=== PATIENT | male | born 1945 | race Caucasian/White ===

== ENCOUNTER → 2016-09-26 | Outpatient (CLI) | payer OTHER ==
[~2016-09-26] MED LIST: ASPI81TA21 PO; ATOR-26 PO; CLOP1TAB15 PO; CLX20 PO; DLN100 PO; FAMO20TA11 PO; GLYB2.5T7 PO; ISOS60TA2 PO; METO-551 PO; MULT1CHW38 PO; NTRGSL/4 UT; NUTR-7 PO; PEDI-68 PO
[2016-09-26 17:09] LABS: HEMATOCRIT 46.5 % (42-52); MEAN CELL VOLUME 96.7 fL (80-100); MEAN CORPUSCULAR HEMOGLOBIN 32.4 pg (25-34); MEAN CORPUSCULAR HGB CONC 33.5 g/dl (32-36); MEAN PLATELET VOLUME 10.6 fL (7.4-10.4); PLATELET COUNT 270 K/uL (130-400); RED BLOOD COUNT 4.81 M/uL (4.7-6.1); WHITE BLOOD COUNT 8.55 K/uL (4.8-10.8)
[2016-09-26 17:41] LABS: ALT/SGPT 37 U/L (12-78); AST/SGOT 31 U/L (15-37); BLOOD UREA NITROGEN 22 mg/dl (7-18); BUN/CREATININE RATIO 19.8 (10-20); CALCIUM 8.8 mg/dl (8.5-10.1); CARBON DIOXIDE 27 mmol/L (21-32); CHLORIDE 107 mmol/L (98-107); GLUCOSE 113 mg/dl (70-99); POTASSIUM 4.1 mmol/L (3.5-5.1); SODIUM 142 mmol/L (136-145)
[2016-09-26 17:52] LABS: ALB/GLOB RATIO 0.8 (0.9-2); ALKALINE PHOSPHATASE 125 U/L (45-117); CHOLESTEROL 113 mg/dl (0-200); CHOLESTEROL/HDL RATIO 3.4; HDL CHOLESTEROL 33 mg/dl; LDL CHOLESTEROL CALCULATED 40 mg/dl; THYROID STIMULATING HORMONE 0.891 uIu/ml (0.300-4.500); TRIGLYCERIDES 202 mg/dl (0-150); VERY LOW DENSITY LIPOPROT CALC 40 mg/dl
[2016-09-27 06:03] LABS: ESTIMATED AVERAGE GLUCOSE 114 mg/dl; HA1C FLAG Normal (Normal)
== END | disposition home or self-care (01) ==
LOC: C.LABBFT 15:56
PROVIDERS: ATTEND Internal Medicine
DX: E11.59 Type 2 diabetes mellitus with other circulatory complications (principal)

== ENCOUNTER → 2016-11-12 | Outpatient (CLI) | payer OTHER | END | disposition home or self-care (01) | LOC: C.LABBFT 16:42 | PROVIDERS: ATTEND Internal Medicine | DX: G40.909 Epilepsy, unspecified, not intractable, without status epilepticus (principal) ==

== ENCOUNTER 2016-12-01 12:21 | Emergency (ER) | payer OTHER ==
[~2016-12-01] VITALS: Ht 164.5 cm; Wt 64.0 kg
[~2016-12-01 12:21] MED LIST changes: -CLOP1TAB15 PO; -MULT1CHW38 PO; -NUTR-7 PO; -PEDI-68 PO
[2016-12-01 12:23] VITALS: TEMP 37; Ht 164.5 cm; Wt 64.0 kg
[2016-12-01 14:27] LABS: BASO % 0.2 %; BASO ABS # 0.02 K/uL (0-0.2); COMPLETE YES; EOS % 2.2 %; HEMATOCRIT 41.4 % (42-52); IG% 0.4 %; LYMPH % 28.9 %; LYMPH ABS # 2.35 K/uL (1.2-3.4); MEAN CELL VOLUME 95.8 fL (80-100); MEAN CORPUSCULAR HEMOGLOBIN 31.9 pg (25-34); MEAN CORPUSCULAR HGB CONC 33.3 g/dl (32-36); MEAN PLATELET VOLUME 9.8 fL (7.4-10.4); MONO % 11.1 %; NEUT % 57.2 %; PLATELET COUNT 199 K/uL (130-400); RED BLOOD COUNT 4.32 M/uL (4.7-6.1); WHITE BLOOD COUNT 8.14 K/uL (4.8-10.8)
[2016-12-01 14:45] LABS: CALCIUM 8.3 mg/dl (8.5-10.1); POTASSIUM 4.2 mmol/L (3.5-5.1)
[2016-12-01] MEDS ORDERED: NUTR-7 PO (14:51)
[2016-12-01] MEDS ORDERED: PEDI-68 PO (14:51)
[2016-12-01] MEDS ORDERED: MULT1CHW38 PO (14:53)
[2016-12-01] MEDS ORDERED: SODIUM CHLORIDE 0.9% 1000ML 1,000 ML IV STA (15:02)
[2016-12-01 16:30] VITALS: BP 152/95; PULSE 55; O2SAT 99
[2016-12-01 16:38] LABS: URINE APPEARANCE CLEAR (CLEAR); URINE BILIRUBIN NEG (NEG); URINE COLOR YELLOW; URINE NITRITE NEG (NEG); URINE SPECIFIC GRAVITY 1.015 (1.000-1.030); UROBILINOGEN NEG (NEG); ZZUR CULT IF INDIC CLEAN CATCH NO
[2016-12-01 16:41] LABS: MANUAL MICROSCOPIC REQUIRED? NO; REVIEW REQ? NO
--- NOTE | 2016-12-01 19:02 | EMERGENCY ROOM VISIT NOTE ---
History Report prepared by Kylah: Thomas Hdz Under the Supervision of: Dr. Jonh Lamb D.O. First contact with patient: 12:39 Chief Complaint: HEMATURIA Stated Complaint: PENIS PAIN/BLEEDING Nursing Triage Summary: Pt arrives to room via w/c. reports she discovered this am pt was voiding dark red blood. Pt reports has been going on a couple of days. Reports no hx of kidney/ prostate issues. Pt is DM. History of Present Illness The patient is a 71 year old male who presents to the Emergency Room with complaints of persistent hematuria beginning about 2 days ago. He denies having any burning during urination, and notes that after urinating, he does not feel the urge to continue urinating. He has not reported having any blood at the tip of his penis. The patient has had occasional diarrhea, but denies any chest pain , shortness of breath, nausea, or vomiting. He also denies any recent trauma. He has not been seen by a urologist. The patient is on Plavix and has a history of stroke. Source of History: patient Onset: about 2 days ago Position: other (urethra) Quality: other (hematuria) Timing: other (persistent) Associated Symptoms: + diarrhea, No SOB, No chest pain, No nausea, No urinary symptoms (Patient has not had burning during urination), No vomiting Review of Systems See HPI for pertinent positives & negatives. A total of 10 systems reviewed and were otherwise negative. Past Medical & Surgical Medical Problems: (1) Diabetes mellitus (2) History of stroke (3) Hypertension Family History Diabetes mellitus FH: heart disease Hypertension Social History Smoking Status: Former Smoker Alcohol Use: none Marital Status: Housing Status: lives with significant other Occupation Status: unemployed Current/Historical Medications Scheduled Atorvastatin (Lipitor), 80 MG PO DAILY Citalopram (Celexa *), 10 MG PO DAILY Famotidine (Pepcid), 20 MG PO BID Glyburide (Diabeta), 2.5 MG PO DAILY Isosorbide Mononitrate (Imdur Ext Rel), 60 MG PO QAM Metoprolol Tartrate (Lopressor), 50 MG PO BID Multiple Vitamins W/ Minerals (Multivitamin Gummies Mens), 2 UNITS PO DAILY Nitroglycerin (Nitrostat), 0.4 MG UT PRN/UD Nutritional Supplements (Boost), 1 CAN PO DAILY Phenytoin Sodium (Dilantin *), 100 MG PO BID Allergies Coded Allergies: Adhesives (Verified Allergy, Unknown, BLISTERING OF SKIN, 12/01/16) No Known Allergies (Verified , 12/01/16) Physical Exam Vital Signs Date Time Temp Pulse Resp B/P Pulse Ox O2 Delivery O2 Flow Rate FiO2 12/01/16 16:30 55 16 152/95 99 Room Air 12/01/16 15:34 53 14 150/77 99 Room Air 12/01/16 12:23 37.0 60 20 160/92 96 Room Air Physical Exam GENERAL: Sitting in bed, alert, chronically ill appearing, well nourished, no distress, non-toxic EYE EXAM: normal conjunctiva OROPHARYNX: no exudate, no erythema, lips, buccal mucosa, and tongue normal and mucous membranes are moist NECK: supple, no nuchal rigidity, no adenopathy, non-tender LUNGS: Clear to auscultation. Normal chest wall mechanics HEART: no murmurs, S1 normal and S2 normal ABDOMEN: abdomen soft, non-tender, normo-active bowel sounds, no masses, no rebound or guarding. BACK: Back is symmetrical on inspection and there is no deformity, no midline tenderness, no CVA tenderness. SKIN: no rashes and no bruising UPPER EXTREMITIES: upper extremities are grossly normal. LOWER EXTREMITIES: No pitting edema. NEURO EXAM: Normal sensorium, cranial nerves II-XII grossly intact, normal speech, no gross weakness of arms, no gross weakness of legs. Gross sensation intact. : Normal external genitalia; testicles nontender; no penile discharge. Medical Decision & Procedures Laboratory Results 12/01/16 14:14 Red Blood Count 4.32, Mean Corpuscular Volume 95.8, Mean Corpuscular Hemoglobin 31.9, Mean Corpuscular Hemoglobin Concent 33.3, Mean Platelet Volume 9.8, Neutrophils (%) (Auto) 57.2, Lymphocytes (%) (Auto) 28.9, Monocytes (%) (Auto) 11.1, Eosinophils (%) (Auto) 2.2, Basophils (%) (Auto) 0.2, Neutrophils # (Auto ) 4.66, Lymphocytes # (Auto) 2.35, Monocytes # (Auto) 0.90, Eosinophils # (Auto ) 0.18, Basophils # (Auto) 0.02 12/01/16 14:14 Test 12/01/16 14:14 12/01/16 16:30 White Blood Count 8.14 K/uL (4.8-10.8) Red Blood Count 4.32 M/uL (4.7-6.1) Hemoglobin 13.8 g/dL (14.0-18.0) Hematocrit 41.4 % (42-52) Mean Corpuscular Volume 95.8 fL (80-100) Mean Corpuscular Hemoglobin 31.9 pg (25-34) Mean Corpuscular Hemoglobin Concent 33.3 g/dl (32-36) Platelet Count 199 K/uL (130-400) Mean Platelet Volume 9.8 fL (7.4-10.4) Neutrophils (%) (Auto) 57.2 % Lymphocytes (%) (Auto) 28.9 % Monocytes (%) (Auto) 11.1 % Eosinophils (%) (Auto) 2.2 % Basophils (%) (Auto) 0.2 % Neutrophils # (Auto) 4.66 K/uL (1.4-6.5) Lymphocytes # (Auto) 2.35 K/uL (1.2-3.4) Monocytes # (Auto) 0.90 K/uL (0.11-0.59) Eosinophils # (Auto) 0.18 K/uL (0-0.5) Basophils # (Auto) 0.02 K/uL (0-0.2) RDW Standard Deviation 50.1 fL (36.4-46.3) RDW Coefficient of Variation 14.2 % (11.5-14.5) Immature Granulocyte % (Auto) 0.4 % Immature Granulocyte # (Auto) 0.03 K/uL (0.00-0.02) Anion Gap 3.0 mmol/L (3-11) Est Creatinine Clear Calc Drug Dose 58.4 ml/min Estimated GFR () 87.4 Estimated GFR (Non- 75.4 BUN/Creatinine Ratio 29.0 (10-20) Calcium Level 8.3 mg/dl (8.5-10.1) Urine Color YELLOW Urine Appearance CLEAR (CLEAR) Urine pH 8.0 (4.5-7.5) Urine Specific [place] 1.015 (1.000-1.030) Urine Protein NEG (NEG) Urine Glucose (UA) NEG (NEG) Urine Ketones NEG (NEG) Urine Occult Blood 1+ (NEG) Urine Nitrite NEG (NEG) Urine Bilirubin NEG (NEG) Urine Urobilinogen NEG (NEG) Urine Leukocyte Esterase TRACE (NEG) Urine WBC (Auto) 1-5 /hpf (0-5) Urine RBC (Auto) 0-4 /hpf (0-4) Urine Hyaline Casts (Auto) 0 /lpf (0-5) Urine Epithelial Cells (Auto) 10-20 /lpf (0-5) Urine Bacteria (Auto) NEG (NEG) Laboratory results per my review. Medications Administered Medications (Trade) Dose Ordered Sig/Monica Route Start Time Stop Time Status Last Admin Dose Admin Sodium Chloride (Nss 1000ml) 1,000 ml @ 999 mls/hr Q1H1M STAT IV 12/01/16 15:02 12/01/16 16:02 DC 12/01/16 15:28 999 MLS/HR ED Course ED COURSE: Vital signs were reviewed and showed hypertensive. The patients medical record was reviewed The above diagnostic studies were performed and reviewed. ED treatments and interventions as stated above. 1246: The patient was evaluated in room B8. A complete history and physical examination was performed. 1500: I reassessed the patient, and he is unable to urinate. 1502: Ordered NSS 1,000 ml @ 999 mls/hr IV. 1605: I reassessed the patient, and he is still unable to urinate. 1705: Upon reevaluation, the patient is doing well.I discussed my findings with the patient and he understands and agrees with the treatment plan. Based on the patients age, coexisting illnesses, exam and lab findings the decision to treat as an outpatient was made. The patient remained stable while under my care. The patient appeared well at the time of discharge. Medical Decision Differentials include trauma, UTI, anticoagulation, and cancer. Patient is a 71-year-old male who presents the ER for hematuria which started in the past 24-48 hours. notes that his currently at his baseline. He denies any other complaints. He notes it is completely able to empty his bladder. He has no dysuria, urgency or frequency. Labs show no significant leukocytosis or anemia. BMP was unremarkable. UA shows trace leukocytes with mild RBCs. Postvoid is 31 ML's. He is not retaining. With his hematuria it could be secondary to Plavix which patient notes that he is on versus possible cancer. This does not look with UTI at this time but patient was updated regards to his findings was discharged with painless hematuria to follow-up with urology as an outpatient. Discussed with Pt concerning signs and symptoms to watch out for. Pt was instructed to follow up with their PCP and discussed with the patient their option to return to the ED at anytime for persistent or worsening symptoms. The appropriate anticipatory guidance and out-patient management, including indications for return to the emergency department, were explained at length to the patient and understood. Impression Primary Impression: Hematuria Scribe Attestation The scribe's documentation has been prepared under my direction and personally reviewed by me in its entirety. I confirm that the note above accurately reflects all work, treatment, procedures, and medical decision making performed by me. Departure Information Dispostion Home / Self-Care Referrals Erick Zapata M.D. (PCP) Patient Instructions Hematuria, My [facility] Additional Instructions Please follow up with your primary care doctor with in the next 24 hours. Any worsening of your symptoms, please return to the ED immediately. This includes unable to eat, abdominal pain, passing out, lightheadedness, weakness, or any other concerning signs or symptoms from your standpoint. Please follow up with urology as listed below. You must give their office a call on Saturday morning to schedule appointment.
[2017-01-09] MEDS ORDERED: CLOP1TAB15 PO (13:30)
== END 2016-12-01 17:04 | disposition home or self-care (01) ==
LOC: C.EDB 12:22
DX: R31.9 Hematuria, unspecified (principal); E11.9 Type 2 diabetes mellitus without complications; I10 Essential (primary) hypertension; Z86.73 Personal history of transient ischemic attack (TIA), and cerebral infarction without residual deficits; Z87.891 Personal history of nicotine dependence; Z79.899 Other long term (current) drug therapy; Z91.09 Other allergy status, other than to drugs and biological substances; Z83.3 Family history of diabetes mellitus; Z82.49 Family history of ischemic heart disease and other diseases of the circulatory system; R19.7 Diarrhea, unspecified

== ENCOUNTER → 2016-12-12 | Outpatient (CLI) | payer OTHER ==
[~2016-12-12] MED LIST changes: -ASPI81TA21 PO; +CLOP1TAB15 PO; +MULT1CHW38 PO; +NUTR-7 PO
--- NOTE | 2016-12-12 08:22 | DIAGNOSTIC IMAGING REPORT ---
CT OF THE ABDOMEN AND PELVIS WITHOUT CONTRAST CLINICAL HISTORY: Hematuria. COMPARISON STUDY: CT of the abdomen and pelvis December 26, 2012 and abdominal series July 28, 2016. TECHNIQUE: Axial images of the abdomen and pelvis were obtained without IV contrast. Images were reviewed in the axial, sagittal, and coronal planes. FINDINGS: Unenhanced images of the liver, spleen, adrenal glands and pancreas are unremarkable. Evaluation of the abdomen and pelvis is suboptimal on this unenhanced exam. There is no hydronephrosis. A 2.6 cm water attenuation lesion within the upper pole of the left kidney was shown to represent a cyst on prior contrast enhanced exam of December 26, 2012. Vascular calcifications within each renal pelvis are noted. These make evaluation for renal calculi difficult but no definite renal calculi are present. There is no hydronephrosis or hydroureter. The sensitivity for detection of urothelial lesions is diminished on this unenhanced exam. There is no evidence for a bowel obstruction. There is no lymphadenopathy. There are stable postsurgical findings consistent with aortobifemoral bypass. 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 This is likely at graft insertion. There is colonic diverticulosis without evidence for acute diverticulitis. There is no lymphadenopathy. There is a diverticulum of the second portion the duodenum. Skeletal structures are unremarkable. Mild diffuse bladder wall thickening is noted. IMPRESSION: 1. No findings to explain hematuria although sensitivity for detection of urothelial lesions is diminished on this unenhanced exam. 2. Extensive vascular calcifications within each renal pelvis. These make evaluation for renal calculi difficult but no definite urinary calculi identified. No hydronephrosis. 3. Stable postsurgical findings consistent with aortobifemoral bypass with stable dilatation of the bilateral common femoral artery since exam of December 26, 2012. Electronically signed by: Madan Mancilla M.D. 12/12/2016 8:21 AM Dictated Date/Time: 12/12/2016 8:09 AM
== END | disposition home or self-care (01) ==
LOC: C.CTS 07:53
PROVIDERS: ATTEND Internal Medicine
DX: R31.9 Hematuria, unspecified (principal)

== ENCOUNTER → 2016-12-27 | Outpatient (CLI) | payer OTHER ==
[~2016-12-27] MED LIST changes: +OPTIRAY 320 IV PRN
--- NOTE | 2016-12-27 10:56 | DIAGNOSTIC IMAGING REPORT ---
ABDOMEN AND PELVIS CT WITH AND WITHOUT IV CONTRAST, UROGRAM PROTOCOL CT DOSE: 308.18 mGy.cm HISTORY: R31.9 [id number] Kidney lesion evaluate upper left pole kidney TECHNIQUE: Multiaxial CT images of the abdomen and pelvis were performed after the use of intravenous contrast to evaluate the urinary system. Maximal intensity projection images were performed at the workstation by the radiologist. Noncontrast imaging is were not performed for this study due to the recent noncontrast abdomen and pelvis CT on 12/12/2016 COMPARISON STUDY: Abdomen and pelvis CT 12/12/2016. FINDINGS: No renal or ureteral calculi identified on this contrast study. No hydronephrosis. No suspicious filling defects seen within the opacified bilateral renal collecting systems, ureters, or bladder. Moderate to severe bilateral renal cortical thinning/scarring. A 2.7 cm cyst within the upper pole of the left kidney. Vascular calcifications within the renal sinuses are again noted. The distal most portion of the left ureter is not opacified but appears to be normal in caliber. Mild bladder wall thickening which is likely chronic. Poststernotomy changes. There are 2 adjacent diverticula at the second portion of the duodenum. The largest measures 2 cm. Moderate thickening at the junction of the second and third portion of the duodenum. No bowel obstruction. Normal appendix. Colonic diverticulosis. The liver, gallbladder, spleen, adrenal glands, and pancreas are unremarkable. No retroperitoneal lymphadenopathy. 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 Moderate atherosclerotic plaque within the descending thoracic aorta and proximal abdominal aorta is again noted. IMPRESSION: 1. No definite renal or ureteral stones. No hydronephrosis. 2. No suspicious filling defects seen within the opacified bilateral renal collecting systems, ureters, or bladder. 3. Moderate thickening at the junction of the second and third portion of the duodenum which could be due to underdistention. There are few diverticula at this location. Recommend endoscopy to exclude the possibility of a duodenitis versus less likely a duodenal mass. 4. Redemonstration of the aortobiiliac bypass graft with stable dilatation of the bilateral common femoral arteries. 5. Additional changes as described above. Electronically signed by: Byron Austin M.D. 12/27/2016 10:53 AM Dictated Date/Time: 12/27/2016 10:40 AM
== END | disposition home or self-care (01) ==
LOC: C.CTS 09:41
PROVIDERS: ATTEND Nurse Practitioner Family
DX: R31.9 Hematuria, unspecified (principal); N18.9 Chronic kidney disease, unspecified; R93.3 Abnormal findings on diagnostic imaging of other parts of digestive tract

== ENCOUNTER → 2017-02-14 | Outpatient (CLI) | payer OTHER ==
[~2017-02-14] MED LIST changes: -METO-551 PO; -MULT1CHW38 PO; -NUTR-7 PO; -OPTIRAY 320 IV PRN
== END | disposition home or self-care (01) ==
LOC: C.LABBFT 12:54
PROVIDERS: ATTEND Urology
DX: R31.9 Hematuria, unspecified (principal)

== ENCOUNTER → 2017-03-01 | Outpatient (CLI) | payer OTHER ==
[2017-03-01 18:11] LABS: RATIO 56.6 mcg/mg (0-30.0)
== END | disposition home or self-care (01) ==
LOC: C.LABBFT 17:18
PROVIDERS: ATTEND Internal Medicine
DX: R31.9 Hematuria, unspecified (principal); E11.59 Type 2 diabetes mellitus with other circulatory complications

== ENCOUNTER → 2017-06-21 | Outpatient (CLI) | payer OTHER ==
[2017-06-21 16:59] LABS: BASO % 0.2 %; BASO ABS # 0.02 K/uL (0-0.2); COMPLETE YES; EOS % 2.6 %; HEMATOCRIT 45.5 % (42-52); IG% 0.5 %; LYMPH % 28.4 %; LYMPH ABS # 2.61 K/uL (1.2-3.4); MEAN CELL VOLUME 95.8 fL (80-100); MEAN CORPUSCULAR HEMOGLOBIN 33.5 pg (25-34); MEAN CORPUSCULAR HGB CONC 34.9 g/dl (32-36); MEAN PLATELET VOLUME 10.2 fL (7.4-10.4); MONO % 12.4 %; NEUT % 55.9 %; PLATELET COUNT 208 K/uL (130-400); RED BLOOD COUNT 4.75 M/uL (4.7-6.1); WHITE BLOOD COUNT 9.18 K/uL (4.8-10.8)
[2017-06-21 17:11] LABS: ALB/GLOB RATIO 0.8 (0.9-2); ALT/SGPT 79 U/L (12-78); AST/SGOT 43 U/L (15-37); BLOOD UREA NITROGEN 36 mg/dl (7-18); BUN/CREATININE RATIO 32.4 (10-20); CALCIUM 8.7 mg/dl (8.5-10.1); CARBON DIOXIDE 25 mmol/L (21-32); CHLORIDE 110 mmol/L (98-107); GLUCOSE 109 mg/dl (70-99); POTASSIUM 4.4 mmol/L (3.5-5.1); SODIUM 141 mmol/L (136-145)
[2017-06-21 17:12] LABS: ALKALINE PHOSPHATASE 84 U/L (45-117); CHOLESTEROL 107 mg/dl (0-200); CHOLESTEROL/HDL RATIO 3.1; HDL CHOLESTEROL 34 mg/dl; LDL CHOLESTEROL CALCULATED 12 mg/dl; TRIGLYCERIDES 304 mg/dl (0-150); VERY LOW DENSITY LIPOPROT CALC 61 mg/dl
== END | disposition home or self-care (01) ==
LOC: C.LABBFT 15:27
PROVIDERS: ATTEND Physician Assistant Medical
DX: I10 Essential (primary) hypertension (principal); G40.909 Epilepsy, unspecified, not intractable, without status epilepticus

== ENCOUNTER → 2017-06-24 | Outpatient (CLI) | payer OTHER | END | disposition home or self-care (01) | LOC: C.LABSPEC 08:14 | PROVIDERS: ATTEND Internal Medicine | DX: R19.7 Diarrhea, unspecified (principal) ==

== ENCOUNTER → 2017-07-05 | Outpatient (CLI) | payer OTHER ==
[~2017-07-05] MED LIST changes: +OPTIRAY 320 IV PRN
--- NOTE | 2017-07-05 13:49 | DIAGNOSTIC IMAGING REPORT ---
ABD/PELVIS IV AND ORAL CONT HISTORY: 72 years-old Male R19.7 [id number] Elevated liver [id number] acute diarrhea. Initial exam. COMPARISON: CT abdomen and pelvis 12/27/2016, 12/12/2016. TECHNIQUE: Multiple axial CT images of the abdomen and pelvis were obtained following the administration of both IV and oral contrast. 119 mL IV contrast administered. A dose lowering technique was used consistent with the principals of ALARA. A dose lowering technique was used consistent with the principals of ALARA. medicine technologist reports that there was a problem with the scanner and the patient had to be removed to a second scanner. Therefore delayed images were obtained. FINDINGS: Lung bases are generally clear. No pneumoperitoneum or pneumatosis identified. Imaged inferior cardiac chambers are mildly enlarged. Coronary arterial disease. Prior median sternotomy. The liver, spleen, pancreas and right adrenal gland are unremarkable. There is indeterminate 10 x 8 mm nodule of the left adrenal gland medial limb on image 138 series 3 which is unchanged from comparison. This was noted to be soft tissue attenuating on noncontrast study 12/12/2016. Statistically, this is likely benign. Gallbladder is contracted. Cyst of the superior pole left kidney measures up to 2.9 cm. lobulations and/or areas of probable scarring and thinning are present within the bilateral kidneys, notably the inferior pole left kidney. No definite renal calculi or hydronephrosis. No focal filling defects identified within the collecting systems, ureters or bladder. Central coarse parenchymal calcifications of the prostate. Extensive mixed plaquing of the abdominal aorta. Mild ectasia of the infrarenal abdominal aorta with patent aortobiiliac stent graft. Dilation of the bilateral common femoral arteries in seen, 1.9 cm on the left and 2.4 cm on the right. No bulky adenopathy. Majority of the oral contrast is still present within the gastric lumen. Debris within the stomach suggests recent meal. Multiple diverticula of the proximal duodenum redemonstrated. No focal bowel wall thickening or evidence of bowel obstruction. Scattered colonic diverticulosis without diverticulitis. Air-fluid levels throughout the colon suggest diarrheal state. No focal wall thickening or pericolonic inflammatory stranding to suggest colitis. The appendix appears normal. There are several small ventral midline supraumbilical abdominal wall hernias which are fat filled with diastases measuring up to 1.7 cm. Bones appear intact. IMPRESSION: 1. Air-fluid levels throughout the colon suggest diarrheal state. No evidence of bowel obstruction or focal colitis. No pneumoperitoneum. 2. Colonic diverticulosis without diverticulitis. 3. Normal appendix. 4. Patent aortobiiliac stent graft with unchanged dilation of the bilateral common femoral arteries. 5. Additional findings as above. The above report was generated using voice recognition software. It may contain grammatical, syntax or spelling errors. Electronically signed by: Romel May M.D. 07/05/2017 1:48 PM Dictated Date/Time: 07/05/2017 1:38 PM
== END | disposition home or self-care (01) ==
LOC: C.CTS 10:36
PROVIDERS: ATTEND Internal Medicine
DX: R19.7 Diarrhea, unspecified (principal); R74.8 Abnormal levels of other serum enzymes; K57.90 Diverticulosis of intestine, part unspecified, without perforation or abscess without bleeding

== ENCOUNTER → 2017-07-31 | Outpatient (CLI) | payer OTHER ==
[~2017-07-31] MED LIST changes: -OPTIRAY 320 IV PRN
[2017-07-31 17:36] LABS: BASO % 0.2 %; BASO ABS # 0.02 K/uL (0-0.2); COMPLETE YES; EOS % 1.7 %; HEMATOCRIT 44.5 % (42-52); IG% 0.8 %; LYMPH % 30.7 %; LYMPH ABS # 2.97 K/uL (1.2-3.4); MEAN CELL VOLUME 96.9 fL (80-100); MEAN CORPUSCULAR HEMOGLOBIN 32.9 pg (25-34); MEAN CORPUSCULAR HGB CONC 33.9 g/dl (32-36); MEAN PLATELET VOLUME 10.4 fL (7.4-10.4); MONO % 11.8 %; NEUT % 54.8 %; PLATELET COUNT 216 K/uL (130-400); RED BLOOD COUNT 4.59 M/uL (4.7-6.1); WHITE BLOOD COUNT 9.68 K/uL (4.8-10.8)
[2017-07-31 17:46] LABS: ALT/SGPT 37 U/L (12-78); BLOOD UREA NITROGEN 31 mg/dl (7-18); BUN/CREATININE RATIO 29.4 (10-20); CALCIUM 8.9 mg/dl (8.5-10.1); CARBON DIOXIDE 23 mmol/L (21-32); CHLORIDE 108 mmol/L (98-107); CREATININE 1.04 mg/dl (0.60-1.40); GLUCOSE 73 mg/dl (70-99); POTASSIUM 4.5 mmol/L (3.5-5.1); SODIUM 140 mmol/L (136-145)
[2017-07-31 17:51] LABS: ALB/GLOB RATIO 0.8 (0.9-2); ALKALINE PHOSPHATASE 95 U/L (45-117); AST/SGOT 23 U/L (15-37); PROSTATE SPECIFIC ANTIGEN 0.582 ng/ml (0.000-4.000)
[2017-07-31 18:13] LABS: URINE APPEARANCE CLEAR (CLEAR); URINE BILIRUBIN NEG (NEG); URINE COLOR YELLOW; URINE NITRITE NEG (NEG); URINE SPECIFIC GRAVITY 1.022 (1.000-1.030); UROBILINOGEN NEG (NEG)
[2017-07-31 18:19] LABS: MANUAL MICROSCOPIC REQUIRED? NO; REVIEW REQ? NO
== END | disposition home or self-care (01) ==
LOC: C.LABBFT 14:06
PROVIDERS: ATTEND Urology
DX: R32 Unspecified urinary incontinence (principal); Z12.5 Encounter for screening for malignant neoplasm of prostate; R31.9 Hematuria, unspecified; R11.2 Nausea with vomiting, unspecified

== ENCOUNTER → 2017-11-13 | Outpatient (CLI) | payer OTHER ==
[2017-11-13 12:06] LABS: HEMATOCRIT 48.6 % (42-52); HEMOGLOBIN 16.7 g/dL (14.0-18.0); MEAN CELL VOLUME 95.1 fL (80-100); MEAN CORPUSCULAR HEMOGLOBIN 32.7 pg (25-34); MEAN CORPUSCULAR HGB CONC 34.4 g/dl (32-36); MEAN PLATELET VOLUME 10.4 fL (7.4-10.4); PLATELET COUNT 227 K/uL (130-400); RED CELL DISTRIBUTION WIDTH CV 13.2 % (11.5-14.5); RED CELL DISTRIBUTION WIDTH SD 45.8 fL (36.4-46.3); WHITE BLOOD COUNT 8.64 K/uL (4.8-10.8)
[2017-11-13 12:40] LABS: ALBUMIN 3.5 gm/dl (3.4-5.0); ALT/SGPT 50 U/L (12-78); AST/SGOT 33 U/L (15-37); BLOOD UREA NITROGEN 25 mg/dl (7-18); CALCIUM 8.8 mg/dl (8.5-10.1); CARBON DIOXIDE 24 mmol/L (21-32); CREATININE 1.21 mg/dl (0.60-1.40); GLUCOSE 149 mg/dl (70-99); POTASSIUM 4.4 mmol/L (3.5-5.1); SODIUM 139 mmol/L (136-145)
[2017-11-13 12:42] LABS: ALKALINE PHOSPHATASE 98 U/L (45-117); TOTAL PROTEIN 7.8 gm/dl (6.4-8.2)
== END | disposition home or self-care (01) ==
LOC: C.LAB1850 10:11
PROVIDERS: ATTEND Internal Medicine
DX: E11.59 Type 2 diabetes mellitus with other circulatory complications (principal); G40.909 Epilepsy, unspecified, not intractable, without status epilepticus

== ENCOUNTER → 2018-01-08 | Outpatient (CLI) | payer OTHER ==
--- NOTE | 2018-01-08 08:14 | DIAGNOSTIC IMAGING REPORT ---
CT LUNG SCREENING, LOW DOSE WITH COMPUTER-AIDED DETECTION (CAD) CLINICAL HISTORY: AGGRESSIVE FORMER SMOKER COMPARISON STUDY: No previous studies for comparison. CT DOSE: 70.23 mGycm TECHNIQUE: Low-dose helical CT was acquired without intravenous contrast from lung apices to bases and reconstructed at 2.5 mm every 2 mm. CAD was utilized for this study. A dose lowering technique was utilized adhering to the principles of ALARA. FINDINGS: No pneumothorax. No pleural effusions. The central airways are patent. Punctate calcified granuloma within the left lower lobe. Mild emphysema. No focal lung consolidations to suggest pneumonia. No suspicious pulmonary nodules. Poststernotomy changes. Moderate to severe calcified plaque within the coronary arteries. The heart is normal in size. No distal or hilar lymphadenopathy. The visualized liver, spleen, right adrenal gland are unremarkable. Mild nodular thickening of the left adrenal gland. IMPRESSION: 1. No suspicious pulmonary nodules. 2. Emphysema. 3. Moderate to severe calcified plaque within the coronary arteries. CAD FINDINGS: Overall Lung RADS Category: 1 Lung RADS Management Recommendation: Continue annual lung cancer screening. Lung RADS Follow Up Date: 2019-01-08 Lung RADS Nodule ID: Electronically signed by: Byron Austin M.D. 01/08/2018 8:13 AM Dictated Date/Time: 01/08/2018 8:05 AM
== END | disposition home or self-care (01) ==
LOC: C.CTS 07:42
PROVIDERS: ATTEND Internal Medicine
DX: Z87.891 Personal history of nicotine dependence (principal)

== ENCOUNTER → 2018-04-03 | Outpatient (CLI) | payer OTHER ==
[~2018-04-03] MED LIST changes: +CITA10TA4 PO; +GLIP2.5T11 PO; +LOSA1TAB PO; +METO50TA16 PO; +PHN/100 PO
[2018-04-03 17:25] LABS: BASO % 0.1 %; BASO ABS # 0.01 K/uL (0-0.2); EOS % 2.3 %; EOS ABS # 0.17 K/uL (0-0.5); HEMATOCRIT 46.9 % (42-52); HEMOGLOBIN 15.7 g/dL (14.0-18.0); IG# 0.03 K/uL (0.00-0.02); LYMPH % 29.3 %; LYMPH ABS # 2.13 K/uL (1.2-3.4); MEAN CELL VOLUME 98.1 fL (80-100); MEAN CORPUSCULAR HEMOGLOBIN 32.8 pg (25-34); MEAN CORPUSCULAR HGB CONC 33.5 g/dl (32-36); MEAN PLATELET VOLUME 10.3 fL (7.4-10.4); MONO % 15.7 %; MONO ABS # 1.14 K/uL (0.11-0.59); NEUT % 52.2 %; PLATELET COUNT 206 K/uL (130-400); RED CELL DISTRIBUTION WIDTH SD 50.1 fL (36.4-46.3); WHITE BLOOD COUNT 7.28 K/uL (4.8-10.8)
[2018-04-03 17:47] LABS: ALBUMIN 3.2 gm/dl (3.4-5.0); ALKALINE PHOSPHATASE 102 U/L (45-117); ALT/SGPT 79 U/L (12-78); AST/SGOT 46 U/L (15-37); BLOOD UREA NITROGEN 31 mg/dl (7-18); CALCIUM 8.5 mg/dl (8.5-10.1); CARBON DIOXIDE 30 mmol/L (21-32); CHOLESTEROL 111 mg/dl (0-200); CREATININE 1.32 mg/dl (0.60-1.40); GLUCOSE 99 mg/dl (70-99); LDL CHOLESTEROL CALCULATED 32 mg/dl; POTASSIUM 4.9 mmol/L (3.5-5.1); SODIUM 141 mmol/L (136-145); TOTAL PROTEIN 7.5 gm/dl (6.4-8.2)
[2018-04-04 06:47] LABS: HEMOGLOBIN A1C 6.3 % (4.5-5.6)
== END | disposition home or self-care (01) ==
LOC: C.LABBFT 14:42
PROVIDERS: ATTEND Internal Medicine
DX: G40.909 Epilepsy, unspecified, not intractable, without status epilepticus (principal); E11.59 Type 2 diabetes mellitus with other circulatory complications

== ENCOUNTER → 2018-04-04 | Outpatient (CLI) | payer OTHER | END | disposition home or self-care (01) | LOC: C.LABSPEC 08:17 | PROVIDERS: ATTEND Internal Medicine | DX: R39.9 Unspecified symptoms and signs involving the genitourinary system (principal); E11.59 Type 2 diabetes mellitus with other circulatory complications ==

== ENCOUNTER 2018-04-13 23:12 | Emergency (ER) | payer OTHER ==
[~2018-04-13] VITALS: Ht 160 cm; Wt 68.0 kg
[~2018-04-13 23:12] MED LIST changes: -CITA10TA4 PO; -GLIP2.5T11 PO; -LOSA1TAB PO; -METO50TA16 PO; -PHN/100 PO
[2018-04-13 23:14] VITALS: Ht 160 cm; Wt 68.0 kg
--- NOTE | 2018-04-13 23:38 | EMERGENCY ROOM VISIT NOTE ---
History Report prepared by Kylah: Joanna Arroyo Under the Supervision of: Dr. Mojgan Morrow D.O. First contact with patient: 23:20 Chief Complaint: ABDOMINAL PAIN Stated Complaint: RIGHT SIDE PAIN Nursing Triage Summary: Right sided abd pain. denies n/v. History of Present Illness The patient is a 72 year old male who presents to the Emergency Room with complaints of lower right sided abdominal pain beginning today. He is accompanied by his who states that she suddenly noticed her was holding his right side today which is abnormal for him. She reports her did not tell her he had any pain but when she said he should go to the ED, he agreed with her. She notes she gave him one aspirin to alleviate his pain. His notes he does not have a past history of kidney stones but he does have a history of diabetes, lung problems, and heart problems. The patient states he is incontinent of urine but he is not urinating more frequently or having dysuria. He is a former smoker. 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 A total of 10 systems reviewed and were otherwise negative. Past Medical & Surgical Medical Problems: (1) Diabetes mellitus (2) History of stroke (3) Hypertension Family History Diabetes mellitus FH: heart disease Hypertension Social History Smoking Status: Former Smoker Alcohol Use: none Marital Status: Housing Status: lives with significant other Occupation Status: unemployed Current/Historical Medications Scheduled Atorvastatin (Lipitor), 80 MG PO HS Citalopram Hydrobromide (Citalopram Hydrobromide), 1 TAB PO DAILY Clopidogrel (Plavix), 75 MG PO QAM Famotidine (Pepcid), 20 MG PO BID Glipizide (Glipizide Er), 1 TAB PO DAILY Isosorbide Mononitrate (Imdur Ext Rel), 60 MG PO QAM Losartan Potassium (Cozaar), 25 MG PO DAILY Metoprolol Tartrate (Lopressor) (Lopressor), 50 MG PO BID Phenytoin Sodium (Dilantin), 100 MG PO BID Scheduled PRN Nitroglycerin (Nitrostat), 0.4 MG UT UD PRN for Chest Pain Allergies Coded Allergies: Adhesives (Verified Allergy, Unknown, BLISTERING OF SKIN, 04/14/18) Physical Exam Vital Signs Date Time Temp Pulse Resp B/P (MAP) Pulse Ox O2 Delivery O2 Flow Rate FiO2 04/14/18 01:44 36.9 65 18 157/93 96 04/14/18 00:49 68 18 171/90 96 Room Air 04/14/18 00:07 68 20 160/92 96 Room Air 04/13/18 23:14 36.9 73 20 169/87 95 Room Air Physical Exam HEENT: Head - normocephalic and atraumatic Pupils are equal, round, and reactive to light. Extraocular eye muscles are intact, and sclera are anicteric. Nose - moist nasal mucosa without discharge. Mouth - moist buccal mucosa. Oropharynx is nonerythematous and there is no tonsillar exudate or edema noted. Neck: Supple; no JVD, nuchal rigidity, cervical lymphadenopathy. Heart: Regular rate and rhythm. There is a normal S1 and S2 with no murmurs, clicks, or gallops appreciated. Lungs: Clear to auscultation bilaterally with no wheezes, rales, or rhonchi. Abdomen: Soft, pain to palpation of the RLQ of abdomen, nondistended, with good bowel sounds. There are no palpable pulsatile masses or hepatosplenomegaly. There is no guarding, rigidity, or rebound noted. Extremities: No evidence of cyanosis, clubbing, or edema. There are easily palpable peripheral pulses. Skin: warm and dry with good turgor and no rashes. Medical Decision & Procedures ER Provider Diagnostic Interpretation: Radiology results as stated below per my review and the radiologist's interpretation: CT ABDOMEN & PELVIS Without CONTRAST No acute findings to explain patient's symptoms. 3.2 cm cyst in the upper left kidney is probably benign. No hydronephrosis or nephrolithiasis. Prominent calcifications in the bilateral renal hilum most likely represents an atherosclerosis. The right kidney is small and atrophic. Mild diverticulosis of the sigmoid without acute diverticulitis. Normal appendix. No bowel wall thickening or obstruction. Severe atherosclerosis. Status post aortobifemoral bypass graft. Radiologist: Lazara Lyles MD Phone: Laboratory Results 04/13/18 23:40 Red Blood Count 4.93, Mean Corpuscular Volume 96.6, Mean Corpuscular Hemoglobin 32.7, Mean Corpuscular Hemoglobin Concent 33.8, Mean Platelet Volume 9.9, Neutrophils (%) (Auto) 63.3, Lymphocytes (%) (Auto) 20.1, Monocytes (%) (Auto) 15.4, Eosinophils (%) (Auto) 0.7, Basophils (%) (Auto) 0.1, Neutrophils # (Auto ) 8.75, Lymphocytes # (Auto) 2.79, Monocytes # (Auto) 2.13, Eosinophils # (Auto ) 0.10, Basophils # (Auto) 0.02 04/13/18 23:40 Test 04/13/18 23:40 04/13/18 23:45 White Blood Count 13.85 K/uL (4.8-10.8) Red Blood Count 4.93 M/uL (4.7-6.1) Hemoglobin 16.1 g/dL (14.0-18.0) Hematocrit 47.6 % (42-52) Mean Corpuscular Volume 96.6 fL (80-100) Mean Corpuscular Hemoglobin 32.7 pg (25-34) Mean Corpuscular Hemoglobin Concent 33.8 g/dl (32-36) Platelet Count 192 K/uL (130-400) Mean Platelet Volume 9.9 fL (7.4-10.4) Neutrophils (%) (Auto) 63.3 % Lymphocytes (%) (Auto) 20.1 % Monocytes (%) (Auto) 15.4 % Eosinophils (%) (Auto) 0.7 % Basophils (%) (Auto) 0.1 % Neutrophils # (Auto) 8.75 K/uL (1.4-6.5) Lymphocytes # (Auto) 2.79 K/uL (1.2-3.4) Monocytes # (Auto) 2.13 K/uL (0.11-0.59) Eosinophils # (Auto) 0.10 K/uL (0-0.5) Basophils # (Auto) 0.02 K/uL (0-0.2) RDW Standard Deviation 49.4 fL (36.4-46.3) RDW Coefficient of Variation 13.9 % (11.5-14.5) Immature Granulocyte % (Auto) 0.4 % Immature Granulocyte # (Auto) 0.06 K/uL (0.00-0.02) Anion Gap 9.0 mmol/L (3-11) Est Creatinine Clear Calc Drug Dose 28.3 ml/min Estimated GFR () 39.9 Estimated GFR (Non- 34.5 BUN/Creatinine Ratio 25.0 (10-20) Calcium Level 8.6 mg/dl (8.5-10.1) Total Bilirubin 0.5 mg/dl (0.2-1) Direct Bilirubin 0.1 mg/dl (0-0.2) Aspartate Amino Transf (AST/SGOT) 40 U/L (15-37) Alanine Aminotransferase (ALT/SGPT) 58 U/L (12-78) Alkaline Phosphatase 92 U/L (45-117) Total Protein 7.7 gm/dl (6.4-8.2) Albumin 3.3 gm/dl (3.4-5.0) Lipase 271 U/L (73-393) Urine Color YELLOW Urine Appearance CLEAR (CLEAR) Urine pH 5.0 (4.5-7.5) Urine Specific [place] 1.018 (1.000-1.030) Urine Protein 1+ (NEG) Urine Glucose (UA) NEG (NEG) Urine Ketones NEG (NEG) Urine Occult Blood NEG (NEG) Urine Nitrite NEG (NEG) Urine Bilirubin NEG (NEG) Urine Urobilinogen NEG (NEG) Urine Leukocyte Esterase NEG (NEG) Urine WBC (Auto) 1-5 /hpf (0-5) Urine RBC (Auto) 0-4 /hpf (0-4) Urine Hyaline Casts (Auto) 1-5 /lpf (0-5) Urine Epithelial Cells (Auto) 20-30 /lpf (0-5) Urine Bacteria (Auto) NEG (NEG) Laboratory results per my review. Medications Administered Medications (Trade) Dose Ordered Sig/Monica Route Start Time Stop Time Status Last Admin Dose Admin Sodium Chloride 1,000 ml @ 999 mls/hr Q1H1M STAT IV 04/14/18 00:44 04/14/18 01:44 DC 04/14/18 00:59 999 MLS/HR Procedure NSS IV ED Course 2329: The patient was evaluated in room B2. A complete history and physical examination were performed. Nursing notes and previous electronic medical records were reviewed. IV lock was established and labs were drawn as above. 0044: Ordered Sodium Chloride 1000 ml @ 999 mls/hr IV. 0057: I checked on the patient at this time. He is comfortable. He rates his pain as a 6/10 but does not want anything for pain. 0127: Upon reevaluation, He states his pain is less than it was before. He will go home and follow up with his PCP in the next 48 hours. I discussed findings and results with him. He verbalized agreement of the treatment plan. He was discharged home. Medical Decision The patient is a 72 year old male who presents to the Emergency Room with complaints of lower right sided abdominal pain beginning today. Differential diagnosis includes appendicitis, ureteral colic, cystitis, diverticulitis, as well as others were entertained. Lab results show Urine had no blood or signs of infection BUN 48 Creatinine 1.9 Glucose 107 LFTs normal WBC 13.8 Stable H and H This is a 72-year-old male patient presents to the emergency department because his noticed that he was holding his right side. He does admit that he has some discomfort in the right lower quadrant of his abdomen with exam. He denies any other significant associated symptoms. CT scan showed no evidence for an acute process. I have encouraged the patient to rest and avoid strenuous activity. He is to follow-up with his PCP if the pain persists. If symptoms worsen or if he develops diarrhea, vomiting, or worsening pain, he should return to the emergency department. Medication Reconcilliation Current Medication List: was personally reviewed by me Blood Pressure Screening Patient's blood pressure: Elevated blood pressure Blood pressure disposition: Elevated BP felt to be situational Impression Primary Impression: Right lower quadrant abdominal pain Scribe Attestation The scribe's documentation has been prepared under my direction and personally reviewed by me in its entirety. I confirm that the note above accurately reflects all work, treatment, procedures, and medical decision making performed by me. Departure Information Dispostion Home / Self-Care Referrals Erick Zapata M.D. (PCP) Forms Call Back Authorization, HOME CARE DOCUMENTATION FORM, IMPORTANT VISIT INFORMATION Patient Instructions My [facility] Additional Instructions Rest. No strenuous activity. Follow-up with your PCP within the next 48 hours for recheck. Return to the emergency department if he developed any worsening symptoms such as increased pain, vomiting, diarrhea or fever.
[2018-04-13 23:49] LABS: HEMATOCRIT 47.6 % (42-52); HEMOGLOBIN 16.1 g/dL (14.0-18.0); MEAN CELL VOLUME 96.6 fL (80-100); MEAN CORPUSCULAR HEMOGLOBIN 32.7 pg (25-34); MEAN CORPUSCULAR HGB CONC 33.8 g/dl (32-36); MEAN PLATELET VOLUME 9.9 fL (7.4-10.4); PLATELET COUNT 192 K/uL (130-400); RED CELL DISTRIBUTION WIDTH CV 13.9 % (11.5-14.5); RED CELL DISTRIBUTION WIDTH SD 49.4 fL (36.4-46.3); WHITE BLOOD COUNT 13.85 K/uL (4.8-10.8)
[2018-04-14 00:09] LABS: ALBUMIN 3.3 gm/dl (3.4-5.0); CALCIUM 8.6 mg/dl (8.5-10.1); CREATININE 1.9 mg/dl (0.60-1.40); POTASSIUM 4.5 mmol/L (3.5-5.1); TOTAL PROTEIN 7.7 gm/dl (6.4-8.2)
[2018-04-14 00:11] LABS: BASO % 0.1 %; BASO ABS # 0.02 K/uL (0-0.2); EOS % 0.7 %; IG# 0.06 K/uL (0.00-0.02); LYMPH % 20.1 %; LYMPH ABS # 2.79 K/uL (1.2-3.4); MONO % 15.4 %; MONO ABS # 2.13 K/uL (0.11-0.59); NEUT % 63.3 %; NEUT ABS # 8.75 K/uL (1.4-6.5)
[2018-04-14] MEDS ORDERED: SODIUM CHLORIDE 0.9% 1000ML 1,000 ML IV STA (00:44)
[2018-04-14] MEDS ORDERED: CITA10TA4 PO (00:50)
[2018-04-14] MEDS ORDERED: METO50TA16 PO (00:52)
[2018-04-14] MEDS ORDERED: PHN/100 PO (00:52)
[2018-04-14] MEDS ORDERED: GLIP2.5T11 PO (00:53)
[2018-04-14] MEDS ORDERED: LOSA1TAB PO (00:53)
[2018-04-14 01:44] VITALS: BP 157/93; PULSE 65; TEMP 36.9; O2SAT 96
--- NOTE | 2018-04-14 06:39 | DIAGNOSTIC IMAGING REPORT ---
ABD/PELVIS NO IV OR ORAL CONT CT DOSE: 316.56 mGy.cm HISTORY: Flank pain eval for appy TECHNIQUE: Multiaxial CT images of the abdomen and pelvis were performed without contrast. A dose lowering technique was utilized adhering to the principles of ALARA. COMPARISON STUDY: 07/05/2017 FINDINGS: There is been pancreas are unremarkable. Right kidney is atrophic. Left kidney contains renal cyst. No evidence for renal hydronephrosis. Nonobstructive bowel pattern. Normal appendix. Operative changes consistent with an aortobifemoral vascular graft. IMPRESSION: No significant abnormality identified within the abdomen or pelvis. 3 cm left renal cyst unchanged in the prior study. Mild chronic sigmoid diverticulosis. The above report was generated using voice recognition software. It may contain grammatical, syntax or spelling errors. Electronically signed by: Beto Tovar M.D. 04/14/2018 6:38 AM Dictated Date/Time: 04/14/2018 6:35 AM
== END 2018-04-14 01:45 | disposition home or self-care (01) ==
LOC: C.EDB 23:13
DX: R10.31 Right lower quadrant pain (principal); E11.9 Type 2 diabetes mellitus without complications; Z87.891 Personal history of nicotine dependence; Z79.84 Long term (current) use of oral hypoglycemic drugs; Z79.899 Other long term (current) drug therapy; Z91.048 Other nonmedicinal substance allergy status

== ENCOUNTER → 2018-04-14 | Outpatient (CLI) | payer OTHER ==
[~2018-04-14] MED LIST changes: +CITA10TA4 PO; +GLIP2.5T11 PO; +LOSA1TAB PO; +METO50TA16 PO; +PHN/100 PO
[2018-04-14 17:26] LABS: BASO % 0.1 %; BASO ABS # 0.01 K/uL (0-0.2); EOS % 0.5 %; EOS ABS # 0.06 K/uL (0-0.5); HEMATOCRIT 47.9 % (42-52); IG# 0.04 K/uL (0.00-0.02); LYMPH % 13.5 %; LYMPH ABS # 1.72 K/uL (1.2-3.4); MEAN CORPUSCULAR HEMOGLOBIN 32.7 pg (25-34); MEAN CORPUSCULAR HGB CONC 33.4 g/dl (32-36); MEAN PLATELET VOLUME 10.7 fL (7.4-10.4); MONO % 17.3 %; MONO ABS # 2.21 K/uL (0.11-0.59); NEUT % 68.3 %; NEUT ABS # 8.72 K/uL (1.4-6.5); PLATELET COUNT 227 K/uL (130-400); RED CELL DISTRIBUTION WIDTH CV 14.2 % (11.5-14.5); RED CELL DISTRIBUTION WIDTH SD 50.7 fL (36.4-46.3); WHITE BLOOD COUNT 12.76 K/uL (4.8-10.8)
[2018-04-14 17:41] LABS: BLOOD UREA NITROGEN 41 mg/dl (7-18); CREATININE 1.87 mg/dl (0.60-1.40)
== END | disposition home or self-care (01) ==
LOC: C.LABBFT 11:25
PROVIDERS: ATTEND Physician Assistant Medical
DX: R39.9 Unspecified symptoms and signs involving the genitourinary system (principal); R10.31 Right lower quadrant pain

== ENCOUNTER 2019-11-17 06:14 | Observation (INO) ==
[~2019-11-17 06:14] MED LIST changes: -ATOR-26 PO; -CITA10TA4 PO; -CLOP1TAB15 PO; -CLX20 PO; +D5W AND 1/4NSS 1,000 ML IV SCH; -DLN100 PO; -FAMO20TA11 PO; -GLIP2.5T11 PO; -GLYB2.5T7 PO; -ISOS60TA2 PO; -LOSA1TAB PO; -METO50TA16 PO; -NTRGSL/4 UT; -PHN/100 PO
--- NOTE | 2019-11-17 06:21 | History & Physical Report ---
Date of Service November 17, 2019 History of Present Illness Primary Care Provider: Erick Zapata MD Name: VIVIANA LANIER Patient Number: [id number] : 1945 Date of Service: 11/02/2019 Chief Complaint: ESRD, need for HD access HPI: Mr. Lanier is a pleasant 74 year old male with an extensive vascular history who presents with a need for dialysis access. He and his are unsure of the etiology, but believe it may be secondary to diabetes or hypertension. He is a poor historian secondary to a previous stroke with expressive aphasia. Of note, he has significant right sided deficits and would prefer any access on the right side to preserve the functionality of his left upper extremity. His did provide history as she was able. She communicated that there was concern that he needs dialysis as soon as possible and may require a catheter as a bridge to hemodialysis. Current Home Meds: (Last Updated 11/02 12:50) amLODIPine (amLODIPine 10 mg oral tablet) 10 mg PO Daily atorvastatin (Lipitor 80 mg oral tablet) 80 mg PO Daily calcitriol (calcitriol 0.25 mcg oral capsule) 0.25 mcg PO qMonWedFri citalopram (citalopram 10 mg oral tablet) 10 mg PO qAM clopidogrel (Plavix) 75 mg PO Daily LADAN 10/16/08 - Zafar Marshall 10/21 07:23 diabetic supplies (glucose test strips) Dispense 7 strips for Novomax Plus GlucometerPatient to check sugars once daily famotidine (famotidine 20 mg oral tablet) 20 mg PO bid glyBURIDE 2.5 mg PO Daily isosorbide mononitrate (isosorbide mononitrate 60 mg oral tablet, extended release) PO qAM losartan (losartan 25 mg oral tablet) 25 mg PO Daily metoprolol (metoprolol tartrate 50 mg oral tablet) 50 mg PO bid nitroglycerin (nitroglycerin 0.4 mg sublingual tablet) 0.4 mg SL q5min PRN: Chest Pain phenytoin (phenytoin extended release) 100 mg PO bid Allergies and Sensitivities: Adhesive bandage(Acute blistering skin eruption) Past Medical History: Problems: History of stent insertion of renal artery CVA (cerebrovascular accident) History of BPH HTN (hypertension) Diabetes Cerebrovascular disease CAD (coronary artery disease) Hyperlipidemia Chronic kidney disease (CKD) Past Surgical: Aortobifemoral bypass Bilateral carotid endarterectomies Bilateral carotid stents Renal artery stenting REVIEW OF SYSTEMS: Ten systems were reviewed. No positive findings other than the HPI were obtained. OBJECTIVE Vitals: Last Updated 11/02/19 13:26 Date Temp BP Location Pulse RR SpO2 Pain 11/02/19 164/82 Left Arm 90 97 11/02/19 164/74 Right Arm 09/19/12 128/77 70 18 98 Vital Signs are the last 3 within Connected. No Orthostatic Data Available Height and Weight: Last Updated 11/02/19 13:26 Date BMI Wt(kg) Wt(lb) Method Ht(cm) (ft-in) Method 11/02/19 62 136 Standing Scale 09/17/12 64 141 Bed Scale 09/16/12 27.34 79 174 Bed Scale 170 5-7 Estimated Heights and Weights are the last 3 within Connected. Physical Exam G: NAD, milly HEENT: bilateral carotid endarterectomy incisions. neck supple. no facial droop noted CV: regular rhythm and rate. Radial pulses 2+ bilaterally. Non-palpable pedal pulses. No ulcerations or signs of ischemia. Pulm: non-labored breathing on RA Abd: midline surgical incision well-healed, abdomen soft, non-distended Ext: extensive bruising noted. Flaccidity of RUE, weakness of RLE noted Neuro: Alert, interactive. weakness and expressive aphasia as noted above. ASSESSMENT: Milly 74 year old male with need for HD access PLAN: - Will arrange for dialysis access ultrasonography of bilateral upper extremities - Will follow up in clinic in 2-3 weeks for discussion of operative intervention(preferably Right upper extremity) and need for tunneled line. I saw and evaluated the patient. Discussed with the resident and agree with the resident's findings and plan as documented in the resident's note. Signature Line Electronic Signature on File CC: Joss Maxwell DO [id number] [facility] [address] [facility] [address] * CC: Erick Zapata III, MD [address] [place] [id number] * Electronically Reviewed/Signed by: Erma Rico MD Author Signature Dt/Tm:11/02/2019 02:30 PM Resident Division of Vascular Surgery Electronically Reviewed/Signed by: Efren Boyd MD Cosigner Signature Dt/Tm: 11/02/2019 02:45 PM Exploitation Analyst [facility] [place] [address], [address] [place] [address] RES Result Type: Vascular Surgery Outpt Note Date of Service: November 02, 2019 13:37 EST Authorization Status: Final Author or Import Date: MD Trisha, Erma Marie on November 02, 2019 13:42 EST Verified By: MD Oliver, Efren Stephen on November 02, 2019 14:45 EST Encounter info: [id number], [facility], Clinic, 11/02/2019 - 11/02/2019 Allergies Allergy/AdvReac Type Severity Reaction Status Date / Time adhesive Allergy Unknown BLISTERING Verified 10/27/19 12:50 OF SKIN latex Allergy Rash Verified 11/16/19 13:04 Home Medications Home Medications Medication Instructions Recorded Confirmed Type phenytoin sodium extended 100 mg 100 mg PO BID #180 cap 02/24/19 11/13/19 Rx capsule atorvastatin 80 mg tablet 80 mg PO DAILY #90 tab 03/11/19 11/13/19 Rx clopidogrel 75 mg tablet 75 mg PO DAILY #90 tab 03/11/19 11/16/19 Rx nitroglycerin 0.4 mg sublingual 0.4 mg SL .PRN/UD PRN #25 tab 03/11/19 11/13/19 History tablet metoprolol tartrate 50 mg tablet 50 mg PO BID #180 tab 03/30/19 11/13/19 Rx glipizide 2.5 mg tablet, extended 2.5 mg PO DAILY #90 tab 04/15/19 11/13/19 Rx release 24 hr citalopram 10 mg tablet 10 mg PO DAILY #30 tab 07/08/19 11/13/19 Rx amlodipine 10 mg tablet 10 mg PO DAILY #90 tab 07/28/19 11/13/19 Rx calcitriol 0.25 mcg PO 3XWK 10/14/19 11/13/19 History ranitidine HCl 150 mg tablet 150 mg PO BID #180 tab 11/10/19 11/13/19 Rx isosorbide mononitrate 60 mg 60 mg PO DAILY #30 tab 11/11/19 11/13/19 Rx tablet,extended release 24 hr witch balta 50 % topical pads 1 pad TOP BID #100 ea 11/16/19 Rx Past Med/Surg History Social History Communication Ability: Impaired Communication Ability Comment: provided all information. She stated he has communication needs. Field Sales Specialist Required: No Beliefs That Will Affect Care: None Current Living Situation: Spouse Current Living Situation Comment: In apartment per . Other Information That Helps Us Care for You: No Feels Safe at Home: Yes Safety Concerns: Feels Safe At This Time Smoking Status: Former smoker Tobacco Type: cigarettes ; Cigarettes Per Day: Quit about 10 years ago. 2 packs per day for 40 years. ; Do You Dip or Chew Tobacco: No ; Second Hand Exposure: No ; Tobacco Cessation Education Requested by Patient: No Hx Alcohol Use: No Hx Substance Use: No caffeine: No Seatbelt Use: always
[2019-11-17] MEDS ORDERED: LIDOCAINE HCL 1% 20 ML VIAL ONE (07:57)
[2019-11-17] MEDS ORDERED: HEPARIN SOD (PORCINE) 5,000 UNITS/ML VIAL ONE (07:57)
[2019-11-17] MEDS ORDERED: MIDAZOLAM HCL 1 MG/ML 2ML VIAL ONE (08:00)
[2019-11-17] MEDS ORDERED: fentaNYL citrate 100 MCG/2 ML VIAL ONE (08:00)
--- NOTE | 2019-11-17 08:04 | History & Physical Bridge Note ---
Date of Service November 17, 2019 History & Physical Bridge Note Patient with worsening kidney function in need of dialysis. He is here for an insertion of a permcath. I have discussed the risks options and benefits of the procedure with the patient. The patient understands the risks options and benefits and agrees to the procedure. I have examined the patient, reviewed the History & Physical and in the interval since the performance of the History & Physical I have noted the following changes of clinical significance: no changes noted
[2019-11-17] MEDS: CEFAZOLIN 1000MG 1,000 MG/7.5 ML SYR IV SCH ×2 (08:17→13:00)
--- NOTE | 2019-11-17 08:48 | Pre Anesthesia Assessment ---
Date of Service November 17, 2019 Pre Sedation Assessment Vital Signs Temp Pulse Pulse Resp BP BP Pulse Ox 11/17/19 08:45 75 18 169/115 H 100 11/17/19 08:40 76 20 174/105 H 100 11/17/19 08:35 76 23 184/109 H 100 11/17/19 08:30 79 24 175/126 H 98 11/17/19 08:27 78 24 188/110 H 89 L 11/17/19 06:59 36.8 C 73 28 H 172/106 H 98 Cardiovascular RRR, no murmur, no edema Respiratory normal respiratory effort, lungs clear to auscultation Pre-Sedation Airway Assessment Smoking Status: Former smoker Hx Sleep Apnea: No Short, Thick Neck: No Thyromental Distance: > or= 3.5 Finger Breadths Oral Cavity: + Dental Abnormalities Mallampati Class: II ASA: ASA4 NPO Status Date of Last Intake of Fluids: 11/17/19 Last Oral Intake of Fluids Comment: 0500 Date of Last Intake of Solid Food: 11/16/19 Time of Last Intake of Solid Foods: 19:00 Procedure Planning Contraindications for Sedation: none Current Medications Reviewed: Yes Notes The planned sedation has been discussed with the patient. Informed Consent was obtained. I have identified the patient, determined the appropriateness of sedation and have assessed the patient immediately prior to the procedure. All medicine(s) and interventions are by my order.
--- NOTE | 2019-11-17 08:54 | Procedure Note ---
Angiogram Post Procedure Fluoroscopy Time (minutes): 0.3 Radiation (mGy): 3 Contrast: 0 Post Operative Report Pre & Post Diagnosis Operation Date: 11/17/19 08:30 Pre-Op Diagnosis: End Stage Renal Disease Post-Op Diagnosis: End Stage Renal Disease I identified the patient and participated in the time-out.: Yes Procedure Operation Date: 11/17/19 08:30 Actual Procedures p Insertion Of Perm Catheter, Right Internal Jugular Approach, Ultrasound Localization Of Right Internal Jugular Vein, Fluoroscopy For Positioning, Moderate Concious Sedation 0837 to(Right) - Efren Boyd MD Surgeon Dr. Oliver Putnam MD Milk Pickup Truck Driver Herrera Putnam Estimated Blood Loss 3 Findings Consistent with Post-Op Diagnosis Specimens None Anesthesia Type RN Sedation Complications none Disposition Accompanied Patient To Recovery: No Disposition: Recovery Room Indications End-stage renal disease. Description of Procedure Patient was taken to the angio suite and placed in the supine position. The right side of the neck and chest wall were prepped and draped in a sterile palma er. The patient was identified and a timeout performed. Local anesthesia was then administered to the appropriate areas of the neck and chest wall. Ultrasound was then used to locate the right internal jugular vein. The vein compressed easily, had no filing defects, and was patent. The vein was then punctured under direct ultrasound imaging. A guidewire was then passed centrally under fluoroscopic imaging. A stab wound was then made in the anterior chest wall and a 19 cm permcath was passed from the stab wound on the chest wall to the puncture site on the neck. The puncture site was then dilated till the 14Fr peel away sheath was inserted. The permcath was then inserted through the sheath to a central position in the distal superior vena cava. The peel away sheath was then removed. The catheter was then sutured in place using nylon sutures. The puncture was then closed using a 4-0 Vicryl subcuticular suture. Dermabond was used for a dressing on the puncture site. Both ports aspirated and flushed easily and were then packed with heparin. A sterile dressing was applied to the catheter. The patient left the angio suite in good condition and tolerated the procedure well. Dr. Boyd was present and scrubbed for the entire procedure. I attest to the content of the Intraoperative Record and any orders documented therein. Any exceptions are noted below.
--- NOTE | 2019-11-17 08:58 | Post Operative Brief Note ---
Immediate Post Op Note v1 Date of Surgery November 17, 2019 Pre & Post Diagnosis Operation Date: 11/17/19 08:30 Pre-Op Diagnosis: End Stage Renal Disease Post-Op Diagnosis: End Stage Renal Disease I identified the patient and participated in the time-out.: Yes Procedure Operation Date: 11/17/19 08:30 Actual Procedures p Insertion Of Perm Catheter, Right Internal Jugular Approach, Ultrasound Localization Of Right Internal Jugular Vein, Fluoroscopy For Positioning, Moderate Concious Sedation 0837 to 0916(Right) - Efren Boyd MD Surgeon Efren Boyd MD Business Systems Manager MD Lakesha Estimated Blood Loss 3 Findings Consistent with Post-Op Diagnosis Anesthesia Type RN Sedation Complications none Disposition Accompanied Patient To Recovery: No Disposition: Recovery Room
--- NOTE | 2019-11-17 09:24 | Post Anesthesia Assessment ---
Date of Service November 17, 2019 Post Sedation Assessment Vital Signs Temp Pulse Pulse Resp BP BP Pulse Ox 11/17/19 09:10 73 20 165/106 H 93 11/17/19 09:05 73 20 171/104 H 92 11/17/19 09:00 73 20 171/105 H 92 11/17/19 08:55 76 24 173/113 H 92 11/17/19 08:50 74 20 174/106 H 100 11/17/19 08:45 75 18 169/115 H 100 11/17/19 08:40 76 20 174/105 H 100 11/17/19 08:35 76 23 184/109 H 100 11/17/19 08:30 79 24 175/126 H 98 11/17/19 08:27 78 24 188/110 H 89 L 11/17/19 06:59 36.8 C 73 28 H 172/106 H 98 Recovery Score Activity: Moves 4 extremities Respiration: Deep Breath/Cough Circulation: +/-20% PreAnes Value Consciousness: Arouseable (by name) Oxygen Saturation: O2 needed for >90% Post Anesthesia Score: 8 Discharge Sedation Level of Care: Phase I Post Sedation Plan On clinical assessment, the patient appears to have tolerated the sedation without complications. Patient is recovering as anticipated. Patient will continue to be monitored by nursing and may be discharged when sedation discharge criteria are met per below protocol. Upon Completions of procedure up to 15 minutes continue every 5 minute vital signs and the P.A.R. score; then discharge to a Phase I or Fast Track to Phase II per the following guidelines: * Discharge Patient to appropriate Phase II area if PAR is 8 or greater or return to pre- procedure baseline. The post - procedure orders will be as directed. * If PAR score is less than 8 or not return to pre-procedure baseline then patient will follow Phase I monitoring till PAR is reached for Phase II. The Phase I may be done in procedure room or may call to secure a Phase I area. * If naloxone or flumazenil are used for reversal, hold in Phase I for cont inued monitoring from when last reversal dose was given for a minimum of 60 minutes or longer pending the nurse and/or physician discretion of patient condition before discharge to Phase II. Please call the Sedation Physician to re-evaluate and complete post-note for discharge to Phase II area. Do NOT discharge from procedure sedation or Phase 1 until post- sedation evaluation note is complete by procedure /sedation MD Sedation Discharge Instructions to be given to the patient at discharge to home.
[2019-11-17] MEDS ORDERED: ACETAMINOPHEN 325 MG TAB PO PRN ×2 (10:07→12:58)
[2019-11-17] MEDS ORDERED: HydrALAZINE HCL 20 MG/ML VIAL ONE (11:34)
[2019-11-17] MEDS: FUROSEMIDE 40 MG/4 ML VIAL IV ONE ×2 (11:48→11:49)
--- NOTE | 2019-11-17 12:31 | History & Physical Report ---
Date of Service November 17, 2019 Assessment & Plan (1) End stage renal disease: Admit to PCU on telemetry, Vital signs every 4 hours, CBC CMP, phosphate, BNP, procalcitonin pending, Follow-up with the results, Monitor electrolytes and replenish, Consult nephrology Dr. Malik, Patient should have hemodialysis for volume overload, DVT prophylaxis SCDs and teds, DNR/DNI Present on Admission?: Yes (2) Seizure disorder: Stable at this time. Continue phenytoin 100 mg p.o. 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 daily, sliding scale insulin per glycemic control pharmacy. Hemoglobin A1c pending. Present on Admission?: Yes (4) Acute exacerbation of CHF (congestive heart failure): Patient appears to be volume overload clinically. New requirement for 3 L of oxygen which was not before. Most likely due to acute exacerbation of congestive heart failure. TTE pending, Chest x-ray is pending, Emergent hemodialysis is next step. Strict in and out, Daily weight, Low-sodium diet Continue home medicine metoprolol 50 mg p.o. twice daily, nitroglycerin 0.4 mg as needed as needed isosorbide mononitrate 60 mg p.o. daily, clopidogrel 75 mg p.o. daily, amlodipine 10 mg p.o. daily. Started hydralazine 10 mg IV as needed for systolic blood pressure over 160 and diastolic blood pressure over 100. Present on Admission?: Yes (5) Volume overload: As discussed above (6) Cerebral artery occlusion with cerebral infarction: Continue home medicine as discussed above including atorvastatin 80 mg p.o. daily. Present on Admission?: Yes (7) Arteriosclerotic cardiovascular disease: As discussed above Present on Admission?: Yes (8) Hypertension: Monitor blood pressure closely every 4 hours, continue home meds as discussed above. Hydralazine 10 mg IV 4 times daily as needed for systolic blood pressure over 160 and diastolic blood pressure over 100. Present on Admission?: Yes (9) Hypertensive urgency: As discussed above Present on Admission?: Yes History of Present Illness Chief Complaint: Shortness of breath, volume overload uncontrolled hypertension Primary Care Provider: Erick Zapata MD The patient is a 74 years old male with CAD, history of CVA, diabetes mellitus type 2, hypertension, dyslipidemia, BPH, history of tobacco abuse, renal artery stenosis and end-stage renal disease who had this morning procedure of permacatheter placement by Dr. Boyd and s/p procedure patient developed hypertensive urgency with elevated blood pressure of 198/137. Patient is poor historian and his is sitting next to his bedside and most of the questions are answered by her. They definitely stated that patient wants to be DNR/DNI, but everything to be done in respect of his care before such invasive procedures as intubation. Patient is planned to have hemodialysis today and this was discussed with Dr. Jarrod Malik who is professional soccer player. Patient would need emergent hemodialysis because he is short of breath and appears to h crackles and wheezes in his lungs due to the volume overload. Patient is right now on 3 L of oxygen and she usually does not use oxygen at home. Patient denies recent sick contact. Patient denies fever, chills, chest pain, abdominal pain, frequency, urgency. Pleuritic permacath is placed in patient's right chest and wound appears to be clean dry and intact. Labs are pending. In the 1 day surgery patient had episodes of hypertensive urgency which was treated with 10 mg of IV hydralazine and Lasix 40 mg IV x1. We spoke to Dr. Malik and patient will have hemodialysis today. Allergies Allergy/AdvReac Type Severity Reaction Status Date / Time adhesive Allergy Unknown BLISTERING Verified 11/17/19 06:58 OF SKIN latex Allergy Rash Verified 11/17/19 06:58 Home Medications Home Medications Medication Instructions Recorded Confirmed Type phenytoin sodium extended 100 mg 100 mg PO BID #180 cap 02/24/19 11/17/19 Rx capsule atorvastatin 80 mg tablet 80 mg PO DAILY #90 tab 03/11/19 11/17/19 Rx clopidogrel 75 mg tablet 75 mg PO DAILY #90 tab 03/11/19 11/17/19 Rx nitroglycerin 0.4 mg sublingual 0.4 mg SL .PRN/UD PRN #25 tab 03/11/19 11/17/19 History tablet metoprolol tartrate 50 mg tablet 50 mg PO BID #180 tab 03/30/19 11/17/19 Rx glipizide 2.5 mg tablet, extended 2.5 mg PO DAILY #90 tab 04/15/19 11/17/19 Rx release 24 hr citalopram 10 mg tablet 10 mg PO DAILY #30 tab 07/08/19 11/17/19 Rx amlodipine 10 mg tablet 10 mg PO DAILY #90 tab 07/28/19 11/17/19 Rx calcitriol 0.25 mcg PO 3XWK 10/14/19 11/17/19 History ranitidine HCl 150 mg tablet 150 mg PO BID #180 tab 11/10/19 11/17/19 Rx isosorbide mononitrate 60 mg 60 mg PO DAILY #30 tab 11/11/19 11/17/19 Rx tablet,extended release 24 hr witch balta 50 % topical pads 1 pad TOP BID #100 ea 11/16/19 11/17/19 Rx docusate sodium [Stool Softener] 100 mg PO DAILY 11/17/19 11/17/19 History Past Med/Surg History Medical History Arteriosclerotic cardiovascular disease (Acute) Benign prostatic hyperplasia (Acute) Cerebral artery occlusion with cerebral infarction (Acute) CKD (chronic kidney disease) Congestive heart failure (CHF) (Acute) Diabetes mellitus with circulatory complication (Chronic) Diabetic peripheral neuropathy (Acute) Esophageal reflux (Acute) H/O tobacco use, presenting hazards to health (Acute) Hemiparesis (Acute) Hyperlipidemia (Chronic) Mitral regurgitation (Acute) Seizure disorder (Chronic) SNHL (sensorineural hearing loss) (Acute) Stroke syndrome (Acute) 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 She stated he has communication needs. Yard Hand Required: No Beliefs That Will Affect Care: None Current Living Situation: Spouse Current Living Situation Comment: In apartment per . Other Information That Helps Us Care for You: No Feels Safe at Home: Yes Safety Concerns: Feels Safe At This Time Smoking Status: Former smoker Tobacco Type: cigarettes ; Cigarettes Per Day: Quit about 10 years ago. 2 packs per day for 40 years. ; Do You Dip or Chew Tobacco: No ; Second Hand Exposure: No ; Tobacco Cessation Education Requested by Patient: No Hx Alcohol Use: No Hx Substance Use: No caffeine: No Seatbelt Use: always Review of Systems Review of Systems: All systems reviewed & are unremarkable except as noted in HPI & below Physical Exam Constitutional: WD/WN, vitals as above well developed, + ill appearing and + cachectic Eyes: PERRL, conjunctivae normal, anicteric sclerae ENMT: external ear and nose normal, oropharynx normal Mallampati Class: II Neck: trachea midline, no thyromegaly Respiratory: + respiratory distress, + labored breathing and + uses accessory muscles Auscultation: + crackles and + wheezes Cardiovascular: RRR, no murmur, no edema Heart Sounds: normal S1 and normal S2 Palpation: + palpable S3 Vessels: + JVD, normal peripheral pulses and dorsalis pedis pulses present Extremities: + pedal edema Gastrointestinal (Abdomen): normal bowel sounds, soft, nontender, no hepatosplenomegaly Neurologic: patellar DTR's 2+ bilat, sensation intact Psychiatric: A+Ox3, euthymic affect Insight: + limited insight Lymphatic: no cervical or axillary lymphadenopathy Results & Data Vital Signs (Past 12 Hours) Vital Signs Temp Pulse Pulse Pulse Resp BP BP 11/17/19 12:15 76 22 166/103 H 11/17/19 11:53 76 24 181/124 H 11/17/19 11:10 36.8 C 73 24 198/137 H 11/17/19 10:40 73 22 199/114 H 11/17/19 10:15 79 24 170/104 H 11/17/19 10:10 36.8 C 73 22 180/119 H 11/17/19 09:55 36.3 C L 70 22 181/111 H 11/17/19 09:45 72 20 173/113 H 11/17/19 09:35 70 22 185/110 H 11/17/19 09:25 72 20 185/108 H 11/17/19 09:18 36.3 C L 73 23 177/116 H 11/17/19 09:10 73 20 165/106 H 11/17/19 09:05 73 20 171/104 H 11/17/19 09:00 73 20 171/105 H 11/17/19 08:55 76 24 173/113 H 11/17/19 08:50 74 20 174/106 H 11/17/19 08:45 75 18 169/115 H 11/17/19 08:40 76 20 174/105 H 11/17/19 08:35 76 23 184/109 H 11/17/19 08:30 79 24 175/126 H 11/17/19 08:27 78 24 188/110 H 11/17/19 06:59 36.8 C 73 28 H 172/106 H Pulse Ox 11/17/19 12:15 96 11/17/19 11:53 96 11/17/19 11:10 92 11/17/19 10:40 91 11/17/19 10:15 85 L 11/17/19 10:10 93 11/17/19 09:55 95 11/17/19 09:45 92 11/17/19 09:35 95 11/17/19 09:25 96 11/17/19 09:18 95 11/17/19 09:10 93 11/17/19 09:05 92 11/17/19 09:00 92 11/17/19 08:55 92 11/17/19 08:50 100 11/17/19 08:45 100 11/17/19 08:40 100 11/17/19 08:35 100 11/17/19 08:30 98 11/17/19 08:27 89 L 11/17/19 06:59 98 Code Status & VTE Plan Code Status DNR/DNI VTE Prophylaxis Plan VTE Prophylaxis will be ordered: Yes PG Care Time/CCT Total # of Minutes Spent Total Time Spent with Patient: Total time spent is greater than 50% in coordination of care (as documented) at patient's floor/unit and/or counseling patient: Coding Level of Care Code 08784 Initial Inpt Care Lvl 3 Diagnoses End stage renal disease N18.6 Seizure disorder G40.909 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
[2019-11-17] MEDS ORDERED: POLYETHYLENE (MIRALAX) 17 GM PACK PO PRN (12:58)
[2019-11-17] MEDS ORDERED: NITROGLYCERIN SL 0.4 MG/TAB TAB SL PRN (12:58)
[2019-11-17] MEDS ORDERED: ALUMINUM/MAGNESIUM SUSP 30 ML UDC PO PRN (12:58)
[2019-11-17] MEDS ORDERED: GLUCOSE 10 TABS/TUBE PO PRN (12:58)
[2019-11-17] MEDS ORDERED: GLUCOSE 40% GEL 15 GM TUBE PO PRN (12:58)
[2019-11-17] MEDS ORDERED: CARBOHYDRATES FOR HYPOGLYCEMIA PO PRN (12:58)
[2019-11-17] MEDS ORDERED: GLUCAGON FOR INJ 1 MG VIAL SQ PRN (12:58)
[2019-11-17] MEDS ORDERED: ONDANSETRON INJ 2 MG/ML 2 ML VIAL IV PRN (12:58)
[2019-11-17] MEDS ORDERED: HydrALAZINE HCL 20 MG/ML VIAL IV PRN (12:58)
[2019-11-17] MEDS ORDERED: DEXTROSE 50% 50 ML SYRINGE IV PRN (12:58)
[2019-11-17] MEDS: AMLODIPINE BESYLATE 5 MG TAB PO SCH (13:35)
[2019-11-17 13:44] LABS: Basophils # (auto) 0.01 K/uL (0-0.2); Basophils % (auto) 0.1 %; Hematocrit (blood only) 29.2 % (42-52); Hemoglobin 9.5 g/dL (14.0-18.0); Immature Granulocytes # (auto) 0.03 K/uL (0.00-0.02); Immature Granulocytes % (auto) 0.3 %; Lymphocytes # (auto) 0.75 K/uL (1.2-3.4); Lymphocytes % (auto) 7.9 %; Mean Corpuscular Hemoglobin 32.5 pg (25-34); Mean Platelet Volume 10.2 fL (7.4-10.4); Monocytes # (auto) 1.02 K/uL (0.11-0.59); Monocytes % (auto) 10.8 %; Neutrophils # (auto) 7.65 K/uL (1.4-6.5); Neutrophils % (auto) 80.9 %; Platelet Count 212 K/uL (130-400); RDW Coefficient of Variation 15.2 % (11.5-14.5); RDW Standard Deviation 55.3 fL (36.4-46.3); Red Blood Count 2.92 M/uL (4.7-6.1); White Blood Count 9.46 K/uL (4.8-10.8)
[2019-11-17 13:57] LABS: Mean Corpuscular Hgb Conc 32.5 g/dL (32-36)
--- NOTE | 2019-11-17 14:02 | Nephrology Consultation ---
Date of Consultation November 17, 2019 Assessment & Plan (1) End stage renal disease: Mr. Mata appears to have end-stage renal disease. He is developing early uremic symptoms with a decrease in his appetite and generalized weakness. Additionally, he is obviously significantly volume overloaded. That is manifest by tachypnea and a tachycardia as well as dilated neck veins and wheezes and rales in his chest as well as some lower extremity edema. His BUN is disproportionately elevated to his creatinine perhaps because of his congestive heart failure. He has a Ferrara catheter in place but has not shown any evidence nor had symptoms of urinary tract outlet obstruction. He would benefit from volume reduction with hemodialysis today. Orders are being placed in the dialysis staff has been notified. For now, I would continue him on all of his regular medications. The nephrology service will continue to follow him with you. (2) Arteriosclerotic cardiovascular disease: (3) Type 2 DM with CKD stage 3 and hypertension: (4) Hypertension: (5) Hyperlipidemia: History of Present Illness Reason for Consultation: Mr. Mata is being seen at the request of Dr. Boyd in the [facility] hospitalist service because of symptoms of end-stage renal disease and volume overload. Attending Physician: Efren Boyd MD History of Present Illness Mr. Mata is 74 years of age. He has been following with Dr. Joss Maxwell for problems of progressive renal insufficiency. He has a longstanding history of hypertension. Most recently, his blood pressure has been treated and fairly well controlled with amlodipine 10 mg daily, metoprolol tartrate 50 mg taken twice daily as well as isosorbide monon itrate 60 mg daily. He is try to avoid dietary sodium. He has not been taking a diuretic. Additionally, he has a history of hypercholesterolemia which is been controlled with atorvastatin 80 mg daily. He has no side effect of that drug including no problems with muscle pain or weakness. He has a history of type II ord-[id number] diabetes mellitus for which he takes glipizide 2.5 mg daily. He does try to minimize his dietary carbohydrate intake. In addition to the above problems, he is a longstanding smoker. He has an approximate [id number] history of smoking although he has not smoked recently. Complications of the above issues include generalized atherosclerotic cardiovascular disease. He has a history of a stroke several years ago resulting in a mild expressive aphasia as well as a right hemiparesis. According to his , his speech is returned to essentially normal although more recently, he has had some difficulty speaking as he has been feeling worse in the past few days. Additionally, he is generally weak and has had to get about, even at home, using a wheelchair. After his stroke, he is undergone bilateral carotid endarterectomies. He also has a history of coronary artery disease. That is been treated with PCI's in the past as well as a history of coronary artery bypass grafts. Details appear on old cardiology notes. Additionally, he has a history of peripheral vascular disease and has multiple stents in both legs. Finally, he has a history of left renal artery stenosis. For that, he underwent an angioplasty and placement of a stent in the left renal artery which appeared to be at least 75% narrowed with atherosclerotic cardiovascular disease. He has advanced chronic renal disease. This is presumably on a vascular basis. He has a history of having an atrophic right kidney. More recently, his left kidney which does appear to be echogenic consistent with medical renal disease was also found to have at least a 75% stenosis of the proximal left renal artery. On October 15 he had a an angioplasty and deployment of a drug-eluting stent at that site. Nonetheless, his renal function did not improve. In the past, he has additionally had an aortobifem bypass done. He has been following with Dr. Nichols because of progressive renal insufficiency. Recently, he has had increasing symptoms of shortness of breath and a rising BUN and creatinine. He has had no lower urinary tract symptoms or complaints. However, he has become progressively more short of breath particularly within the past several days. He has developed orthopnea and PND. He has severe dyspnea with exertion. He has been increasingly weak and needs assistance even getting to the bathroom. His appetite has been poor. He has had nausea but no vomiting. Other renal related medications include calcitriol 0.25 mcg 3 times a week. He does not appear to be taking phosphate binding agents. Earlier today, tunneled hemodialysis catheter was placed in the right IJ with a catheter exiting beneath the distal right clavicle. The procedure was uncomplicated although he does have some local discomfort. Nonetheless, post procedure his blood pressure was significantly high and he was complaining of significant shortness of breath. Oxygen was given. The decision was made that he should be admitted. He was to have started hemodialysis tomorrow at [facility] in [place]. Other significant medical issues include a history of depression for which she is taking citalopram 10 mg daily. He is also taking Dilantin 100 mg twice daily because of a seizure disorder and ranitidine 150 mg twice daily because of a history of GERD and dyspepsia. A full list of his outpatient medications is included in the record. Allergies include adhesives and latex. He has no known medication allergies. Allergies Allergy/AdvReac Type Severity Reaction Status Date / Time adhesive Allergy Unknown BLISTERING Verified 11/17/19 06:58 OF SKIN latex Allergy Rash Verified 11/17/19 06:58 Home Medications Home Medications Medication Instructions Recorded Confirmed Type phenytoin sodium extended 100 mg 100 mg PO BID #180 cap 02/24/19 11/17/19 Rx capsule atorvastatin 80 mg tablet 80 mg PO DAILY #90 tab 03/11/19 11/17/19 Rx clopidogrel 75 mg tablet 75 mg PO DAILY #90 tab 03/11/19 11/17/19 Rx nitroglycerin 0.4 mg sublingual 0.4 mg SL .PRN/UD PRN #25 tab 03/11/19 11/17/19 History tablet metoprolol tartrate 50 mg tablet 50 mg PO BID #180 tab 03/30/19 11/17/19 Rx glipizide 2.5 mg tablet, extended 2.5 mg PO DAILY #90 tab 04/15/19 11/17/19 Rx release 24 hr citalopram 10 mg tablet 10 mg PO DAILY #30 tab 07/08/19 11/17/19 Rx amlodipine 10 mg tablet 10 mg PO DAILY #90 tab 07/28/19 11/17/19 Rx calcitriol 0.25 mcg PO 3XWK 10/14/19 11/17/19 History ranitidine HCl 150 mg tablet 150 mg PO BID #180 tab 11/10/19 11/17/19 Rx isosorbide mononitrate 60 mg 60 mg PO DAILY #30 tab 11/11/19 11/17/19 Rx tablet,extended release 24 hr witch balta 50 % topical pads 1 pad TOP BID #100 ea 11/16/19 11/17/19 Rx docusate sodium [Stool Softener] 100 mg PO DAILY 11/17/19 11/17/19 History Patient History Medical History Arteriosclerotic cardiovascular disease (Acute) Benign prostatic hyperplasia (Acute) Cerebral artery occlusion with cerebral infarction (Acute) CKD (chronic kidney disease) Congestive heart failure (CHF) (Acute) Diabetes mellitus with circulatory complication (Chronic) Diabetic peripheral neuropathy (Acute) Esophageal reflux (Acute) H/O tobacco use, presenting hazards to health (Acute) Hemiparesis (Acute) Hyperlipidemia (Chronic) Mitral regurgitation (Acute) Seizure disorder (Chronic) SNHL (sensorineural hearing loss) (Acute) Stroke syndrome (Acute) 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 She stated he has communication needs. Glove Examiner Required: No Beliefs That Will Affect Care: None Current Living Situation: Spouse Current Living Situation Comment: In apartment per . Other Information That Helps Us Care for You: No Feels Safe at Home: Yes Safety Concerns: Feels Safe At This Time Smoking Status: Former smoker Tobacco Type: cigarettes ; Cigarettes Per Day: Quit about 10 years ago. 2 packs per day for 40 years. ; Do You Dip or Chew Tobacco: No ; Second Hand Exposure: No ; Tobacco Cessation Education Requested by Patient: No Hx Alcohol Use: No Hx Substance Use: No caffeine: No Seatbelt Use: always Physical Exam Physical Exam: On physical examination, Mr. Mata appears as an elderly gentleman perhaps older than his stated age of 74. When seen by me, he was lying quietly in bed. He did appear to be somewhat dyspneic despite oxygen being given via nasal cannula at a rate of 3 L a minute. His blood pressure was 166/103. His pulse 76 and regular. Respiratory rate was 22 with an oxygen saturation of 96% on the 3 L. He is afebrile (36.8) examination of his skin shows multiple scars from prior surgical procedures including bilateral carotid endarterectomy scars and a midsternal scar from coronary artery bypass surgery his skin turgor appears to be normal. He has no rash or infiltrative skin disease. He has no palpable lymphadenopathy. His head is grossly normal. Eyes are grossly normal. The ocular fundi were not examined. Ears, nose, mouth and throat are unremarkable. He is edentulous. Oral mucous membranes are moist. His neck is supple. He has jugular venous distention of the jaw lying at about 30 degrees. I do not hear any definite carotid bruits. He has no thyromegaly. His chest shows diminished breath sounds with diffuse wheezing and a few bibasilar rales. Cardiac exam shows a regular rhythm. S1 and S2 were normal. I do not hear a definite murmur or gallop. His abdomen is somewhat protuberant. It is nontender. There is no definite organomegaly or mass. Bowel sounds are normal. He has no CVA tenderness or tenderness over the dorsal spine. A Ferrara catheter is in place. A digital rectal exam was not done. Extremities show no cyanosis, clubbing or peripheral edema. Peripheral pulses in his lower extremities are absent. However, he has good capillary refill of his fingers and toes. He has soft bilateral femoral murmurs. His neurologic exam shows mild right-sided weakness. He has a mild expressive aphasia. Results & Data Vital Signs (Past 12 Hours) Vital Signs Temp Pulse Pulse Pulse Resp BP BP 11/17/19 12:15 76 22 166/103 H 11/17/19 11:53 76 24 181/124 H 11/17/19 11:10 36.8 C 73 24 198/137 H 11/17/19 10:40 73 22 199/114 H 11/17/19 10:15 79 24 170/104 H 11/17/19 10:10 36.8 C 73 22 180/119 H 11/17/19 09:55 36.3 C L 70 22 181/111 H 11/17/19 09:45 72 20 173/113 H 11/17/19 09:35 70 22 185/110 H 11/17/19 09:25 72 20 185/108 H 11/17/19 09:18 36.3 C L 73 23 177/116 H 11/17/19 09:10 73 20 165/106 H 11/17/19 09:05 73 20 171/104 H 11/17/19 09:00 73 20 171/105 H 11/17/19 08:55 76 24 173/113 H 11/17/19 08:50 74 20 174/106 H 11/17/19 08:45 75 18 169/115 H 11/17/19 08:40 76 20 174/105 H 11/17/19 08:35 76 23 184/109 H 11/17/19 08:30 79 24 175/126 H 11/17/19 08:27 78 24 188/110 H 11/17/19 06:59 36.8 C 73 28 H 172/106 H Pulse Ox 11/17/19 12:15 96 11/17/19 11:53 96 11/17/19 11:10 92 11/17/19 10:40 91 11/17/19 10:15 85 L 11/17/19 10:10 93 11/17/19 09:55 95 11/17/19 09:45 92 11/17/19 09:35 95 11/17/19 09:25 96 11/17/19 09:18 95 11/17/19 09:10 93 11/17/19 09:05 92 11/17/19 09:00 92 11/17/19 08:55 92 11/17/19 08:50 100 11/17/19 08:45 100 11/17/19 08:40 100 11/17/19 08:35 100 11/17/19 08:30 98 11/17/19 08:27 89 L 11/17/19 06:59 98 PG Care Time/CCT Total # of Minutes Spent Total Time Spent: 75 Total Time Spent with Patient: Total time spent is greater than 50% in coordination of care (as documented) at patient's floor/unit and/or counseling patient: Coding Level of Care Code 02187 Initial Inpt Care Lvl 3 Diagnoses End stage renal disease N18.6 Arteriosclerotic cardiovascular disease I25.10 Type 2 DM with CKD stage 3 and hypertension E11.22; I12.9; N18.3 Hypertension I10 Hyperlipidemia E78.5
[2019-11-17] MEDS ORDERED: HEPARIN SOD (PORCINE) 1000 UNIT/ML 10 ML VIAL IV ONE (14:03)
[2019-11-17] MEDS ORDERED: SODIUM CHLORIDE 0.9% 1000ML 1,000 ML IV PRN (14:03)
--- NOTE | 2019-11-17 14:04 | XRay Report ---
XR chest 1V portable CLINICAL HISTORY: 74 years-old Male presenting with volume overload. TECHNIQUE: Portable upright AP view of the chest was obtained. COMPARISON: CT from 01/09/2019 and chest x-ray from 07/28/2016. FINDINGS: Tunneled right internal jugular dialysis catheter terminates at the superior cavoatrial junction. Med clarisa sternotomy wires and mediastinal surgical clips noted. Atherosclerosis of the aorta. Cardiac silh ouette mildly enlarged. Mild prominence of pulmonary vasculature with added perihilar/central predomi nant density. There is also mild added density at the left lung base. Bronchial wall cuffing is also suspected. Trace left pleural effusion may be present. No large pneumothorax. Degenerative changes of the thoracic spine. Upper abdomen normal. IMPRESSION: 1. Myocardial megaly with suspected volume overload and congestive change. Mild developing pulmonary edema also present. 2. Possible left pleural effusion and atelectasis. ACT 112: Negative or not required by law. Electronically signed by: David Galdamez M.D. 11/17/2019 2:03 PM
[2019-11-17 14:10] LABS: Estimated Average Glucose 111 mg/dl; Hemoglobin A1C 5.5 % (4.5-5.6)
[2019-11-17 14:14] LABS: Alanine Aminotransferase 78 U/L (12-78); Albumin Globulin Ratio 0.8 (0.9-2); Albumin Level 3.2 gm/dl (3.4-5.0); Alkaline Phosphatase 103 U/L (45-117); Aspartate Aminotransferase 63 U/L (15-37); BUN Creatinine Ratio 21.8 (10-20); Bilirubin,Total 0.3 mg/dl (0.2-1); Blood Urea Nitrogen 147 mg/dl (7-18); Calcium 8.7 mg/dl (8.5-10.1); Carbon Dioxide 17 mmol/L (21-32); Chloride 108 mmol/L (98-107); Creatinine Clr Calc Pharmacy 8.1 ml/min; Est GFR (African American) 8.5; Est GFR (Non-African American) 7.4; Globulin 4.2 gm/dl (2.5-4.0); Glucose 114 mg/dl (70-99); Magnesium 1.9 mg/dl (1.8-2.4); NT Pro B Type Natriuretic Pept > 35000 pg/ml (0-900); Phosphorus 4.9 mg/dl (2.5-4.9); Potassium 4.7 mmol/L (3.5-5.1); Sodium 138 mmol/L (136-145); Total Protein 7.4 gm/dl (6.4-8.2)
[2019-11-17 14:47] LABS: Hepatitis B Surface Ab Quant < 3.10 mIU/mL (>or=10mIU/mL Immune); Hepatitis B Surface Antibody Non-Immune
[2019-11-17 14:58] LABS: Hepatitis B Surface Antigen Neg (Neg)
--- NOTE | 2019-11-17 16:22 | XCELERA ---
[id number] \\[email or web address]\[id number]
[2019-11-17] MEDS: HEPARIN SOD (PORCINE) 1000 UNIT/ML 10 ML VIAL IV SCH ×2 (16:32→16:33)
--- NOTE | 2019-11-17 16:33 | Electrocardiogram Report ---
Test Reason : Blood Pressure : / mmHG Vent. Rate : 081 BPM Atrial Rate : 081 BPM P-R Int : 336 ms QRS Dur : 104 ms QT Int : 394 ms P-R-T Axes : 033 068 104 degrees QTc Int : 457 ms Sinus rhythm with 1st degree A-V block Nonspecific ST and T wave abnormality Abnormal ECG When compared with ECG of 14-OCT-2019 17:24, T wave inversion now evident in Inferior leads Confirmed by Kareem Gallardo ([id number]) on 11/17/2019 4:32:46 PM Referred By: Efren Boyd Confirmed By:Kareem Gallardo
[2019-11-17] MEDS: INSULIN ASPART 100 UNITS/ML 3 ML PEN SC SCH ×2 (17:55→22:53)
[2019-11-17] MEDS: METOPROLOL TARTRATE 50 MG TAB PO SCH (22:29)
[2019-11-17] MEDS: PHENYTOIN SODIUM ER 100 MG CAP PO SCH (22:29)
[2019-11-18] MEDS: PATIENT'S HEIGHT AND/OR WEIGHT NEEDED SCH ×4 (06:36→06:54)
[2019-11-18] MEDS ORDERED: SODIUM CHLORIDE 0.9% 1000ML 1,000 ML IV PRN (07:00)
[2019-11-18 07:39] LABS: Basophils # (auto) 0.01 K/uL (0-0.2); Basophils % (auto) 0.1 %; Eosinophils # (auto) 0.01 K/uL (0-0.5); Eosinophils % (auto) 0.1 %; Hematocrit (blood only) 27.2 % (42-52); Hemoglobin 8.9 g/dL (14.0-18.0); Immature Granulocytes # (auto) 0.03 K/uL (0.00-0.02); Immature Granulocytes % (auto) 0.3 %; Lymphocytes # (auto) 0.84 K/uL (1.2-3.4); Lymphocytes % (auto) 8.7 %; Mean Corpuscular Hemoglobin 32.8 pg (25-34); Mean Corpuscular Hgb Conc 32.7 g/dL (32-36); Mean Corpuscular Volume 100.4 fL (80-100); Monocytes % (auto) 15.6 %; Neutrophils # (auto) 7.24 K/uL (1.4-6.5); Neutrophils % (auto) 75.2 %; Platelet Count 137 K/uL (130-400); RDW Coefficient of Variation 15.4 % (11.5-14.5); RDW Standard Deviation 55.5 fL (36.4-46.3); Red Blood Count 2.71 M/uL (4.7-6.1); White Blood Count 9.63 K/uL (4.8-10.8)
[2019-11-18 08:23] LABS: Albumin Globulin Ratio 0.7 (0.9-2); Albumin Level 2.8 gm/dl (3.4-5.0); BUN Creatinine Ratio 20.4 (10-20); Bilirubin,Total 0.4 mg/dl (0.2-1); Calcium 8.2 mg/dl (8.5-10.1); Est GFR (Non-African American) 9.5; Globulin 4.1 gm/dl (2.5-4.0); Potassium 4.1 mmol/L (3.5-5.1); Total Protein 6.9 gm/dl (6.4-8.2)
[2019-11-18 08:32] LABS: Estimated Average Glucose 108 mg/dl; Hemoglobin A1C 5.4 % (4.5-5.6)
[2019-11-18] MEDS: ATORVASTATIN 40 MG TAB PO SCH (08:32)
[2019-11-18] MEDS: PHENYTOIN SODIUM ER 100 MG CAP PO SCH ×2 (08:32→20:42)
[2019-11-18] MEDS: CALCITRIOL 0.25 MCG CAPSULE PO SCH (08:33)
[2019-11-18] MEDS: CITALOPRAM 20 MG TAB PO SCH (08:33)
[2019-11-18] MEDS: CLOPIDOGREL BISULFATE 75 MG TAB PO SCH (08:33)
[2019-11-18] MEDS: METOPROLOL TARTRATE 50 MG TAB PO SCH (08:37)
[2019-11-18] MEDS: AMLODIPINE BESYLATE 5 MG TAB PO SCH (08:37)
[2019-11-18] MEDS ORDERED: DOCUSATE SODIUM 100 MG CAP PO SCH (09:00)
[2019-11-18] MEDS ORDERED: EPOETIN ALFA 20,000 UNITS/ML VIAL IV SCH (09:00)
[2019-11-18] MEDS ORDERED: ISOSORBIDE MONO EXTENDED REL 60 MG TABCR PO SCH (09:00)
[2019-11-18 09:21] LABS: Ferritin 330.7 ng/ml (8-388)
--- NOTE | 2019-11-18 11:44 | Nephrology Progress Note ---
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 Had short first Rx as pt has a syncopal episode most likely vasovagal. Currently otherwise doing fine. --Plan for 3 h HD today with low blood flow, UF as tolerated --start on Renvela 1 tab TIDM, Nephrocaps 1 /d --JENSEN 61360 unit x 1 dose today --iron study --rt arm nephrology precaution for AVF in future --dose meds for GFR<10 Will follow (2) Volume overload: (3) Hypertension: (4) Diabetes mellitus: Subjective Mr. Mata was seen and examined in his room this am with family at bedside. Overall doing better, denies SOB. BP stable. Review of Systems Review of Systems: All systems reviewed & are unremarkable except as noted in HPI & below Physical Exam Constitutional: well developed and well nourished; no acute distress Respiratory: normal respiratory effort; no respiratory distress Auscultation: + rales (b/l at bases) Cardiovascular: RRR, no murmur, no edema Neurologic: moves all extremities and awake; not confused Psychiatric: A+Ox3, euthymic affect Results & Data Vital Signs (Past 12 Hours) Vital Signs Temp Pulse Pulse Pulse Resp BP BP 11/18/19 11:00 73 143/92 H 11/18/19 10:40 80 155/95 H 11/18/19 10:20 71 162/91 H 11/18/19 10:12 36.9 C 78 11/18/19 08:00 72 11/18/19 07:42 37.1 C 68 18 159/89 H 11/18/19 03:00 36.8 C 74 19 152/91 H 11/17/19 23:53 36.8 C 71 19 148/81 H Pulse Ox 11/18/19 11:00 11/18/19 10:40 11/18/19 10:20 11/18/19 10:12 11/18/19 08:00 11/18/19 07:42 97 11/18/19 03:00 98 11/17/19 23:53 99 PG Care Time/CCT Total # of Minutes Spent Total Time Spent with Patient: Total time spent is greater than 50% in coordination of care (as documented) at patient's floor/unit and/or counseling patient: Coding Level of Care Code 93905 Subseq Hosp Care Lvl 3 Diagnoses End stage renal disease N18.6 Volume overload E87.70 Hypertension I10 Diabetes mellitus E11.9
[2019-11-18] MEDS: INSULIN ASPART 100 UNITS/ML 3 ML PEN SC SCH ×4 (12:00→20:44)
[2019-11-18] MEDS: NEPHROCAPS PO SCH (14:33)
[2019-11-18] MEDS: SEVELAMER HCL 800 MG TABLET PO SCH ×2 (14:33→18:02)
[2019-11-18] MEDS ORDERED: ISOSORBIDE MONO EXTENDED REL 60 MG TABCR PO PRN (18:00)
[2019-11-18] MEDS: METOPROLOL TARTRATE 25 MG TAB PO SCH (20:42)
--- NOTE | 2019-11-18 20:54 | Hospitalist Progress Note ---
Date of Service November 18, 2019 Assessment & Plan (1) End stage renal disease: Appreciate nephrology management with dialysis Phosphate binder as per nephrology management although currently WNL Daily nephrocaps Secondary hyperparathyroidism: continue Calcitriol (2) Volume overload: Hypoxia with volume overload on exam and CXR due to ESRD. Possible diastolic heart failure contributory given proximal infero-posterior wall hypokinesis but hypervolemia state primarily driven by his ESRD. Volume management with dialysis. He still produces urine therefore diuretics may be of some use but will defer to his nephrology team. (3) Acute respiratory failure with hypoxia: As per H&P exam and hypoxia Now resolved, on room air. Secondary to pulmonary edema and volume overload. Procalcitonin positive but otherwise does not appear to be infective etiology. Improving without antibiotics. Present on Admission?: Yes (4) Uremic encephalopathy: I understand this was the main reason for patient decision to go on dialysis, although main reason for urgent dialysis is his volume overload and hypoxia. BUN improving with dialysis. No uremic pericardial effusion on echo. Will continue to monitor for improvement with cognition as per his . His family report his appetite is already significantly improved after one dialysis treatment. (5) Macrocytic anemia: Concern is his Hgb drop with dialysis. Iron sats 15%. Given mildly macrocytic will get B12 and folate with AM labs. He has a history of hemorrhoids but has not noticed any bright red blood with bowel movements and I would not expect a dramatic drop from this. (6) Diabetes mellitus with circulatory complication: Suspect diagnosis now resolved. Hold hypoglycemic agents from home glipizide 2.5 mg p.o. daily. Hemoglobin A1c 5.4. Insulin sliding scale for correction only. (7) Hypertensive urgency: Resolved with dialysis. No anti-hypertensives to be given during dialysis. Suspect will need a reduction in his medications now on dialysis and will continually adjust his amlodipine, ISMN, metoprolol until he reaches a euvolemic state. (8) Vasovagal syncope: Caue of code blue on 11/16 Bradycardia and hypotension with straining on toilet due to constipation in setting of 500ml taken off with dialysis and hydralazine given just prior to dialysis. Main treatment is avoiding constipation but will also cut back on some of his antihypertensives now he is on dialysis as above. (9) Constipation: Start Metamucil. Increase docusate to BID. Dose of MiraLAX tonight. Avoid constipation to avoid another vasovagal event such as what occurred yesterday. (10) Arteriosclerotic cardiovascular disease: Prior CABG and PCI to SVG-OM (2.5 x 26 Resolute) 2011. Unclear why he is only on a single antiplatelet as such a significant vascular- path but he has been seen by Dr Dorman recently with renal artery stent and rem ains on clopidogrel alone. Continue metoprolol, atorvastatin, ISMN. Echo with wall motion abnormality although unclear if this is new. (11) Cerebral artery occlusion with cerebral infarction: Continue clopidogrel and atorvastatin 80 mg p.o. daily. (12) Peripheral artery disease: History of [id number] bypass (13) History of CVA with residual deficit: Right foot drop and generalized lower extremity weakness, right upper extremity weakness, mild expressive dysphasia No BP, labs etc... right upper extremity. As per the patient his is also his future AV fistula site although I do not know of any mapping performed. (14) Right foot drop: His reports non-compliance with right foot drop brace. (15) Seizure disorder: Stable at this time. Continue phenytoin 100 mg p.o. twice daily. (16) DVT prophylaxis: Avoid SCDs given PAD with bypass Heparin with Admission and Anticipated Discharge Date Admission Date: November 17, 2019 Subjective Patient reports much improvement in his shortness of breath since admission, unknown if he still has this on exertion. No chest pain. Dizziness on standing has been ongoing for some time. He has not been walking around today to know if this is still present. Appetite already improved with first dialysis treatment. notes he appears more alert and less sleepy than he has been. She notes he has been having problems with constipation at home but does not take his l axatives. Known right foot drop but he does not wear brace. He is supposed to use a stick or walker but she notes he walks around without these aids most of the time. She is concerned that he needs physical therapy prior to returning home. Discussed ongoing care with Dr Muniz. Review of Systems Review of Systems: All systems reviewed & are unremarkable except as noted in HPI & below Physical Exam Constitutional: well developed and + ill appearing; + not well nourished and no acute distress Eyes: + anicteric sclerae; normal pupil size ENMT: external ear and nose normal, oropharynx normal Neck: trachea midline, no thyromegaly Respiratory: normal respiratory effort; no respiratory distress, no labored breathing and does not use accessory muscles Auscultation: + crackles (bibasal); no wheezes Cardiovascular: Rate/Rhythm: regular rate and regular rhythm Heart Sounds: normal S1, normal S2 and + murmur Vessels: no JVD Extremities: + pedal edema (2+ b/l) Gastrointestinal (Abdomen): normal bowel sounds, soft, nontender, no hepatosplenomegaly Skin: no rashes, warm and dry Neurologic: moves all extremities, + focal motor deficit (right UE weakness, right foot drop) and awake Speech / Cognition: + expressive aphasia (mild) Motor/Sensory: + pronator drift (right, residual from prior stroke); no tremor Psychiatric: A+Ox3, euthymic affect Insight: + limited insight Results & Data ([facility]) Vital Signs (Past 12 Hours) Vital Signs Temp Pulse Pulse Pulse Resp BP BP 11/18/19 19:48 36.8 C 90 19 164/101 H 11/18/19 16:11 37.1 C 91 H 18 144/88 H 11/18/19 16:00 97 H 11/18/19 14:21 36.8 C 96 H 18 160/93 H 11/18/19 13:44 36.7 C 96 H 16 11/18/19 13:20 36.4 C L 89 159/89 H 11/18/19 13:00 88 131/92 11/18/19 12:40 83 149/95 H 11/18/19 12:20 84 151/84 H 11/18/19 12:00 83 157/99 H 11/18/19 11:40 82 155/91 H 11/18/19 11:20 83 162/98 H 11/18/19 11:00 73 143/92 H 11/18/19 10:40 80 155/95 H 11/18/19 10:20 71 162/91 H 11/18/19 10:12 36.9 C 78 BP Pulse Ox 11/18/19 19:48 93 11/18/19 16:11 91 11/18/19 16:00 11/18/19 14:21 91 11/18/19 13:44 172/109 H 100 11/18/19 13:20 11/18/19 13:00 11/18/19 12:40 11/18/19 12:20 11/18/19 12:00 11/18/19 11:40 11/18/19 11:20 11/18/19 11:00 11/18/19 10:40 11/18/19 10:20 11/18/19 10:12 PG Care Time/CCT Total # of Minutes Spent Total Time Spent with Patient: Total time spent is greater than 50% in coordination of care (as documented) at patient's floor/unit and/or counseling patient: Coding Level of Care Code 64350 Subseq Hosp Care Lvl 3 Diagnoses End stage renal disease N18.6 Volume overload E87.79 Hypervolemia type: other Acute respiratory failure with hypoxia J96.01 Uremic encephalopathy G93.41; N19 Macrocytic anemia D53.9 Diabetes mellitus with circulatory complication E11.51 Diabetes mellitus type: type 2 Diabetes mellitus dentofacial 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 dentist insulin use: without snf use Diabetes mellitus complication detail: with peripheral angiopathy without gangrene Hypertensive urgency I16.0 Vasovagal syncope R55 Constipation K59.04 Constipation type: chronic idiopathic constipation Arteriosclerotic cardiovascular disease I25.10 Cerebral artery occlusion with cerebral infarction Peripheral artery disease I73.9 History of CVA with residual deficit I69.30 Right foot drop M21.371 Seizure disorder G40.909 DVT prophylaxis Z29.9 (1) Constipation Constipation type: chronic idiopathic constipation Qualified Code(s): K59.04 - Chronic idiopathic constipation (2) Volume overload Hypervolemia type: other Qualified Code(s): E87.79 - Other fluid overload (3) Diabetes mellitus with circulatory complication Diabetes mellitus type: type 2 Diabetes mellitus snf insulin use: without dentofacial orthopedics dentist use Diabetes mellitus complication detail: with peripheral angiopathy without gangrene Qualified Code(s): E11.51 - Type 2 diabetes mellitus with diabetic peripheral angiopathy without gangrene
[2019-11-18] MEDS ORDERED: POLYETHYLENE (MIRALAX) 17 GM PACK PO ONE (21:01)
[2019-11-18] MEDS ORDERED: AMLODIPINE BESYLATE 5 MG TAB PO ONE (21:13)
[2019-11-18] MEDS: DOCUSATE SODIUM 100 MG CAP PO SCH (21:24)
[2019-11-19 06:59] LABS: Eosinophils # (auto) 0.01 K/uL (0-0.5); Eosinophils % (auto) 0.1 %; Hematocrit (blood only) 26.5 % (42-52); Hemoglobin 8.6 g/dL (14.0-18.0); Immature Granulocytes # (auto) 0.02 K/uL (0.00-0.02); Immature Granulocytes % (auto) 0.2 %; Lymphocytes % (auto) 11.8 %; Mean Corpuscular Hemoglobin 32.8 pg (25-34); Mean Corpuscular Hgb Conc 32.5 g/dL (32-36); Mean Corpuscular Volume 101.1 fL (80-100); Mean Platelet Volume 10.3 fL (7.4-10.4); Monocytes # (auto) 1.84 K/uL (0.11-0.59); Monocytes % (auto) 18.1 %; Neutrophils # (auto) 7.12 K/uL (1.4-6.5); Neutrophils % (auto) 69.8 %; Platelet Count 118 K/uL (130-400); RDW Coefficient of Variation 15.4 % (11.5-14.5); RDW Standard Deviation 54.7 fL (36.4-46.3); Red Blood Count 2.62 M/uL (4.7-6.1); White Blood Count 10.19 K/uL (4.8-10.8)
[2019-11-19] MEDS ORDERED: SODIUM CHLORIDE 0.9% 1000ML 1,000 ML IV PRN (07:00)
[2019-11-19 07:34] LABS: Albumin Level 2.4 gm/dl (3.4-5.0); BUN Creatinine Ratio 17.3 (10-20); Calcium 7.6 mg/dl (8.5-10.1); Creatinine Clr Calc Pharmacy 12.3 ml/min; Est GFR (African American) 14.3; Est GFR (Non-African American) 12.3; Potassium 3.6 mmol/L (3.5-5.1)
[2019-11-19 07:36] LABS: Albumin Globulin Ratio 0.6 (0.9-2); Bilirubin,Total 0.3 mg/dl (0.2-1); Globulin 3.8 gm/dl (2.5-4.0); Total Protein 6.2 gm/dl (6.4-8.2)
[2019-11-19 08:02] LABS: Folate (Folic Acid) 12.16 ng/ml (>5.38)
[2019-11-19] MEDS: NEPHROCAPS PO SCH (08:04)
[2019-11-19] MEDS: DOCUSATE SODIUM 100 MG CAP PO SCH ×2 (08:04→20:17)
[2019-11-19] MEDS: CLOPIDOGREL BISULFATE 75 MG TAB PO SCH (08:04)
[2019-11-19] MEDS: PHENYTOIN SODIUM ER 100 MG CAP PO SCH ×2 (08:04→20:17)
[2019-11-19] MEDS: CITALOPRAM 20 MG TAB PO SCH (08:04)
[2019-11-19] MEDS: ATORVASTATIN 40 MG TAB PO SCH (08:06)
[2019-11-19] MEDS: PSYLLIUM 58.6% POWDER PACKET PO SCH (08:11)
[2019-11-19] MEDS: INSULIN ASPART 100 UNITS/ML 3 ML PEN SC SCH ×4 (08:12→20:20)
--- NOTE | 2019-11-19 09:16 | Nephrology Progress Note ---
Date of Service November 19, 2019 Assessment & Plan (1) End stage renal disease: ESRD secondary to renovascular disease, started on HD on 11/17/19 via rt IJ TDC. Had short first Rx as pt has a syncopal episode most likely vasovagal. Currently otherwise doing fine. --Plan for 4 h HD today with low blood flow, UF as tolerated, and then continue on TTS schedule. Can be discharged after dialysis today if clinically stable. Patient has outpatient dialysis scheduled for Saturday 6 a.m. at [facility] [place]. Inform patient and patient's as well as dialysis unit will be expecting patient on Saturday. --continue on Renvela 1 tab TIDM, Nephrocaps 1 /d --JENSEN 14108 unit x 1 dose given yesterday --rt arm nephrology precaution for AVF in future --dose meds for GFR<10 Will follow (2) Volume overload: (3) Hypertension: (4) Diabetes mellitus: Subjective Mr. Mata was seen and examined in his room this am with family at bedside. Overall doing better, denies SOB. BP stable. Had 3 hours dialysis yesterday, tolerated well, no complication, had more than 1 liter UF. Review of Systems Review of Systems: All systems reviewed & are unremarkable except as noted in HPI & below Physical Exam Constitutional: well developed and well nourished; no acute distress Respiratory: normal respiratory effort; no respiratory distress Auscultation: + rales (b/l at bases) Cardiovascular: RRR, no murmur, no edema Neurologic: moves all extremities and awake; not confused Psychiatric: A+Ox3, euthymic affect Results & Data Vital Signs (Past 12 Hours) Vital Signs Temp Pulse Resp BP Pulse Ox 11/19/19 07:24 37.3 C 88 18 143/88 H 94 11/19/19 03:43 37.5 C 88 19 148/83 H 94 11/19/19 00:14 37.2 C 89 19 150/84 H 94 PG Care Time/CCT Total # of Minutes Spent Total Time Spent with Patient: Total time spent is greater than 50% in coordination of care (as documented) at patient's floor/unit and/or counseling patient: Coding Level of Care Code 64581 Subseq Hosp Care Lvl 3 Diagnoses End stage renal disease N18.6 Volume overload E87.79 Hypervolemia type: other Hypertension I10 Diabetes mellitus E11.9 (1) Volume overload Hypervolemia type: other Qualified Code(s): E87.79 - Other fluid overload
[2019-11-19] MEDS: METOPROLOL TARTRATE 25 MG TAB PO SCH ×2 (13:53→20:18)
[2019-11-19] MEDS: SEVELAMER HCL 800 MG TABLET PO SCH ×2 (13:53→16:37)
--- NOTE | 2019-11-19 17:12 | Hospitalist Progress Note ---
Date of Service November 19, 2019 Assessment & Plan (1) End stage renal disease: Appreciate nephrology management with dialysis Phosphate binder as per nephrology management although currently WNL Daily nephrocaps Secondary hyperparathyroidism: continue Calcitriol (2) Volume overload: Hypoxia with volume overload on exam and CXR due to ESRD. Possible diastolic heart failure contributory given proximal infero-posterior wall hypokinesis but hypervolemia state primarily driven by his ESRD. Volume management with dialysis. He still produces urine therefore diuretics may be of some use but will defer to his nephrology team. (3) Acute respiratory failure with hypoxia: As per H&P exam and hypoxia Now resolved, on room air. Secondary to pulmonary edema and volume overload. Procalcitonin positive but otherwise does not appear to be infective etiology. Improving without antibiotics. (4) Uremic encephalopathy: Main reason for patient decision to go on dialysis. Urgent dialysis performed due to volume overload and hypoxia. BUN improving with dialysis. No uremic pericardial effusion on echo. Improving (5) Macrocytic anemia: EPO given 3/4, likely cause of increasing MCV Iron sats 15%. B12 and folate WNL. Anemia getting worse (6) Diabetes mellitus with circulatory complication: Suspect diagnosis now resolved. Hold hypoglycemic agents from home glipizide 2.5 mg p.o. daily. Hemoglobin A1c 5.4. Insulin sliding scale for correction only. (7) Hypertensive urgency: Resolved with dialysis. No anti-hypertensives to be given during dialysis. Increase amlodipine back to his home dose Continue ISMN, metoprolol. (8) Vasovagal syncope: Cause of code blue on 11/16 Bradycardia and hypotension with straining on toilet due to constipation in setting of 500ml taken off with dialysis and hydralazine given during dialysis. Discussed laxatives to avoid constipation in the future with his (9) Constipation: Start Metamucil. Increase docusate to BID. Dose of MiraLAX tonight. Avoid constipation to avoid another vasovagal event such as what occurred yesterday. (10) Arteriosclerotic cardiovascular disease: Prior CABG and PCI to SVG-OM (2.5 x 26 Resolute) 2011. Unclear why he is only on a single antiplatelet as such a significant vascular- path but he has been seen by Dr Dorman recently with renal artery stent and remains on clopidogrel alone. Recommend follow up with cardiology. Continue metoprolol, atorvastatin, ISMN. Echo with wall motion abnormality although unclear if this is new. (11) Cerebral artery occlusion with cerebral infarction: Continue clopidogrel and atorvastatin 80 mg p.o. daily. (12) Peripheral artery disease: History of [id number] bypass (13) History of CVA with residual deficit: Right foot drop and generalized lower extremity weakness, right upper extremity weakness, mild expressive dysphasia No BP, labs etc... right upper extremity. As per the patient his is also his future AV fistula site although I do not know of any mapping performed. (14) Right foot drop: His reports non-compliance with right foot drop brace. (15) Seizure disorder: Stable at this time. Continue phenytoin 100 mg p.o. twice daily. (16) DVT prophylaxis: Avoid SCDs given PAD with bypass Heparin with dialysis Continued inpatient stay due to worsening anemia and not yet passed trial without catheter Admission and Anticipated Discharge Date Admission Date: November 17, 2019 Subjective Patient seen after dialysis. No acute concerns or complaints at this time. Urinary catheter remains in place and still produces a reasonable amount of urine, therefore need to remove this and check he can pass urine prior to discharge. Does not wish to go to rehab. Anemia - no dizziness, shortness of breath or chest pain Uremia - noticed vast change in his appetite, feel tiredness has also improved. Review of Systems Review of Systems: All systems reviewed & are unremarkable except as noted in HPI & below Physical Exam Constitutional: well developed; + not well nourished and no acute distress Eyes: + anicteric sclerae; normal pupil size ENMT: external ear and nose normal, oropharynx normal Neck: trachea midline, no thyromegaly Respiratory: normal respiratory effort; no respiratory distress, no labored breathing and does not use accessory muscles Auscultation: + crackles (bibasal, improved); no wheezes Cardiovascular: Rate/Rhythm: regular rate and regular rhythm Heart Sounds: normal S1, normal S2 and + murmur Vessels: no JVD Extremities: + pedal edema (1+ b/l) Gastrointestinal (Abdomen): Inspection/Auscultation: normal bowel sounds Percussion/Palpation: + guarding, + abdomen rigid and abdomen soft; abdomen nontender Skin: no rashes, warm and dry Neurologic: moves all extremities, + focal motor deficit (right UE weakness, right foot drop - chronic) and awake Speech / Cognition: + expressive aphasia (mild) Motor/Sensory: + pronator drift (right, residual from prior stroke); no tremor Psychiatric: A+Ox3, euthymic affect Insight: + limited insight Results & Data ([facility]) Vital Signs (Past 12 Hours) Vital Signs Temp Pulse Pulse Pulse Resp BP BP 11/19/19 15:18 36.9 C 85 16 145/89 H 11/19/19 13:41 37.1 C 100 H 18 154/92 H 11/19/19 13:25 37.5 C 98 H 157/99 H 11/19/19 13:00 100 H 156/70 H 11/19/19 12:40 95 H 144/93 H 11/19/19 12:20 95 H 141/91 H 11/19/19 12:00 96 H 90/69 L 11/19/19 11:40 94 H 103/69 11/19/19 11:20 95 H 133/79 11/19/19 11:00 92 H 108/70 11/19/19 10:40 87 127/76 11/19/19 10:20 90 156/90 H 11/19/19 10:00 88 140/83 11/19/19 09:40 88 140/86 11/19/19 09:20 89 145/91 H 11/19/19 09:10 88 149/105 H 11/19/19 09:06 37.3 C 89 11/19/19 08:00 72 11/19/19 07:24 37.3 C 88 18 143/88 H Pulse Ox 11/19/19 15:18 98 11/19/19 13:41 96 11/19/19 13:25 11/19/19 13:00 11/19/19 12:40 11/19/19 12:20 11/19/19 12:00 11/19/19 11:40 11/19/19 11:20 11/19/19 11:00 11/19/19 10:40 11/19/19 10:20 11/19/19 10:00 11/19/19 09:40 11/19/19 09:20 11/19/19 09:10 11/19/19 09:06 11/19/19 08:00 11/19/19 07:24 94 PG Care Time/CCT Total # of Minutes Spent Total Time Spent with Patient: Total time spent is greater than 50% in coordination of care (as documented) at patient's floor/unit and/or counseling patient: Coding Level of Care Code 58822 Subseq Hosp Care Lvl 2 Diagnoses End stage renal disease N18.6 Volume overload E87.79 Hypervolemia type: other Acute respiratory failure with hypoxia J96.01 Uremic encephalopathy G93.41; N19 Macrocytic anemia D53.9 Diabetes mellitus with circulatory complication E11.51 Diabetes mellitus complication detail: with peripheral angiopathy without gangrene 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 insulin use: without residential use Diabetes mellitus type: type 2 Hypertensive urgency I16.0 Vasovagal syncope R55 Constipation K59.04 Constipation type: chronic idiopathic constipation Arteriosclerotic cardiovascular disease I25.10 Cerebral artery occlusion with cerebral infarction Peripheral artery disease I73.9 History of CVA with residual deficit I69.30 Right foot drop M21.371 Seizure disorder G40.909 DVT prophylaxis Z29.9 (1) Diabetes mellitus with circulatory complication Diabetes mellitus complication detail: with peripheral angiopathy without gangrene Diabetes mellitus residential insulin use: without residential use Diabetes mellitus type: type 2 Qualified Code(s): E11.51 - Type 2 diabetes mellitus with diabetic peripheral angiopathy without gangrene (2) Constipation Constipation type: chronic idiopathic constipation Qualified Code(s): K59.04 - Chronic idiopathic constipation (3) Volume overload Hypervolemia type: other Qualified Code(s): E87.79 - Other fluid overload
[2019-11-19] MEDS ORDERED: POLYETHYLENE (MIRALAX) 17 GM PACK PO STA (17:15)
[2019-11-19] MEDS ORDERED: ISOSORBIDE MONO EXTENDED REL 60 MG TABCR PO PRN (18:30)
[2019-11-19] MEDS ORDERED: AMLODIPINE BESYLATE 5 MG TAB PO SCH (21:00)
[2019-11-20 06:57] LABS: Basophils # (auto) 0.01 K/uL (0-0.2); Basophils % (auto) 0.1 %; Eosinophils # (auto) 0.01 K/uL (0-0.5); Eosinophils % (auto) 0.1 %; Hematocrit (blood only) 29.8 % (42-52); Hemoglobin 9.6 g/dL (14.0-18.0); Immature Granulocytes # (auto) 0.05 K/uL (0.00-0.02); Immature Granulocytes % (auto) 0.5 %; Lymphocytes # (auto) 1.33 K/uL (1.2-3.4); Lymphocytes % (auto) 12.8 %; Mean Corpuscular Hemoglobin 32.9 pg (25-34); Mean Corpuscular Hgb Conc 32.2 g/dL (32-36); Mean Corpuscular Volume 102.1 fL (80-100); Mean Platelet Volume 10.3 fL (7.4-10.4); Monocytes # (auto) 1.91 K/uL (0.11-0.59); Monocytes % (auto) 18.4 %; Neutrophils # (auto) 7.09 K/uL (1.4-6.5); Neutrophils % (auto) 68.1 %; Nucleated RBC # (auto) 0.14 K/uL (0-0); Nucleated RBC % (auto) 1.3 %; Platelet Count 119 K/uL (130-400); RDW Coefficient of Variation 15.4 % (11.5-14.5); RDW Standard Deviation 56.1 fL (36.4-46.3); Red Blood Count 2.92 M/uL (4.7-6.1)
[2019-11-20 07:54] LABS: Albumin Globulin Ratio 0.6 (0.9-2); Albumin Level 2.4 gm/dl (3.4-5.0); BUN Creatinine Ratio 12.1 (10-20); Bilirubin,Total 0.3 mg/dl (0.2-1); Calcium 7.7 mg/dl (8.5-10.1); Creatinine Clr Calc Pharmacy 18.1 ml/min; Est GFR (African American) 22.9; Est GFR (Non-African American) 19.8; Potassium 3.5 mmol/L (3.5-5.1); Total Protein 6.4 gm/dl (6.4-8.2)
[2019-11-20] MEDS: ATORVASTATIN 40 MG TAB PO SCH (08:04)
[2019-11-20] MEDS: DOCUSATE SODIUM 100 MG CAP PO SCH (08:04)
[2019-11-20] MEDS: CITALOPRAM 20 MG TAB PO SCH (08:04)
[2019-11-20] MEDS: PHENYTOIN SODIUM ER 100 MG CAP PO SCH (08:04)
[2019-11-20] MEDS: PSYLLIUM 58.6% POWDER PACKET PO SCH (08:05)
[2019-11-20] MEDS: METOPROLOL TARTRATE 25 MG TAB PO SCH (08:05)
[2019-11-20] MEDS: CLOPIDOGREL BISULFATE 75 MG TAB PO SCH (08:05)
[2019-11-20] MEDS: NEPHROCAPS PO SCH (08:05)
[2019-11-20] MEDS: CALCITRIOL 0.25 MCG CAPSULE PO SCH (08:06)
[2019-11-20] MEDS ORDERED: ISOSORBIDE MONO EXTENDED REL 60 MG TABCR PO PRN (09:00)
[2019-11-20] MEDS: INSULIN ASPART 100 UNITS/ML 3 ML PEN SC SCH ×2 (09:02→12:44)
--- NOTE | 2019-11-20 09:30 | Nephrology Progress Note ---
Date of Service November 20, 2019 Assessment & Plan (1) End stage renal disease: ESRD secondary to renovascular disease, started on HD on 11/17/19 via rt IJ TDC. Has been tolerating HD, BP controlled. Currently otherwise doing fine. --continue on TTS schedule. Next dialysis scheduled for Saturday 6 a.m. at [facility] [place]. Informed patient and patient's as well as dialysis unit will be expecting patient on Saturday. --continue on Renvela 1 tab TIDM, Nephrocaps 1 /d --JENSEN [id number] unit x 1 dose given yesterday --rt arm nephrology precaution for AVF in future --dose meds for GFR<10 --OK to be discharged. Will follow (2) Volume overload: (3) Hypertension: (4) Diabetes mellitus: Subjective Mr. Mata was seen and examined in his room this am with at bedside. Overall doing well, denies SOB. BP stable. Had 4 hours dialysis yesterday, tolerated well, no complication, had more than 1 liter UF. BP fair. Review of Systems Review of Systems: All systems reviewed & are unremarkable except as noted in HPI & below Physical Exam Constitutional: well developed and well nourished; no acute distress Respiratory: normal respiratory effort; no respiratory distress Auscultation: + rales (b/l at bases) Cardiovascular: RRR, no murmur, no edema Neurologic: moves all extremities and awake; not confused Psychiatric: A+Ox3, euthymic affect Results & Data Vital Signs (Past 12 Hours) Vital Signs Temp Pulse Pulse Resp BP BP Pulse Ox 11/20/19 07:37 37.3 C 83 16 149/86 H 97 11/20/19 00:00 37.0 C 84 20 145/84 H 93 PG Care Time/CCT Total # of Minutes Spent Total Time Spent with Patient: Total time spent is greater than 50% in coordination of care (as documented) at patient's floor/unit and/or counseling patient: Coding Level of Care Code 18463 Subseq Hosp Care Lvl 2 Diagnoses End stage renal disease N18.6 Volume overload E87.79 Hypervolemia type: other Hypertension I10 Diabetes mellitus E11.9 (1) Volume overload Hypervolemia type: other Qualified Code(s): E87.79 - Other fluid overload
--- NOTE | 2019-11-20 12:20 | Discharge Summary ---
Date of Service November 20, 2019 Admission HPI Per Admitting Provider The patient is a 74 years old male with CAD, history of CVA, diabetes mellitus type 2, hypertension, dyslipidemia, BPH, history of tobacco abuse, renal artery stenosis and end-stage renal disease who had this morning procedure of permacatheter placement by Dr. Boyd and s/p procedure patient developed hypertensive urgency with elevated blood pressure of 198/137. Patient is poor historian and his is sitting next to his bedside and most of the questions are answered by her. They definitely stated that patient wants to be DNR/DNI, but everything to be done in respect of his care before such invasive procedures as intubation. Patient is planned to have hemodialysis today and this was discussed with Dr. Jarrod Malik who is theatrical performer. Patient would need emergent hemodialysis because he is short of breath and appears to h crackles and wheezes in his lungs due to the volume overload. Patient is right now on 3 L of oxygen and she usually does not use oxygen at home. Patient denies recent sick contact. Patient denies fever, chills, chest pain, abdominal pain, frequency, urgency. Pleuritic permacath is placed in patient's right chest and wound appears to be clean dry and intact. Labs are pending. In the 1 day surgery patient had episodes of hypertensive urgency which was treated with 10 mg of IV hydralazine and Lasix 40 mg IV x1. We spoke to Dr. Malik and patient will have hemodialysis today. Admission Exam Per Admitting Provider Constitutional: WD/WN, vitals as above well developed, + ill appearing and + cachectic Eyes: PERRL, conjunctivae normal, anicteric sclerae ENMT: external ear and nose normal, oropharynx normal Mallampati Class: II Neck: trachea midline, no thyromegaly Respiratory: + respiratory distress, + labored breathing and + uses accessory muscles Auscultation: + crackles and + wheezes Cardiovascular: RRR, no murmur, no edema Heart Sounds: normal S1 and normal S2 Palpation: + palpable S3 Vessels: + JVD, normal peripheral pulses and dorsalis pedis pulses present Extremities: + pedal edema Gastrointestinal (Abdomen): normal bowel sounds, soft, nontender, no hep atosplenomegaly Neurologic: patellar DTR's 2+ bilat, sensation intact Psychiatric: A+Ox3, euthymic affect Insight: + limited insight Lymphatic: no cervical or axillary lymphadenopathy Principal Diagnosis End stage renal disease Pulmonary edema Uremic encephalopathy (confusion due to high urea levels) Anemia of chronic kidney disease Discharge Exam Constitutional well developed; + not well nourished and no acute distress ENMT external ear and nose normal, oropharynx normal Respiratory normal respiratory effort; no respiratory distress, no labored breathing and does not use accessory muscles Auscultation: + crackles (mild bibasal); no wheezes Cardiovascular Rate/Rhythm: regular rate and regular rhythm Heart Sounds: + murmur Vessels: no JVD Extremities: + pedal edema (1+ b/l) Gastrointestinal (Abdomen) Inspection/Auscultation: normal bowel sounds Percussion/Palpation: abdomen soft; abdomen nontender, no guarding and abdomen not rigid Skin no rashes, warm and dry Neurologic moves all extremities, + focal motor deficit (right UE weakness, right foot drop - chronic) and awake Speech / Cognition: + expressive aphasia (mild) Psychiatric A+Ox3, euthymic affect Insight: + limited insight Discharge Data Allergies Allergy/AdvReac Type Severity Reaction Status Date / Time adhesive Allergy Unknown BLISTERING Verified 11/17/19 06:58 OF SKIN latex Allergy Rash Verified 11/17/19 06:58 Consultations 11/17/19 10:55 Consult Nephrology Stat 11/17/19 12:58 Consult Nephrology Routine 11/18/19 11:47 Consult Case Management - Discharge Planning Routine Procedures Performed Operation Date: 11/17/19 08:30 Actual Procedures p Insertion Of Perm Catheter, Right Internal Jugular Approach, Ultrasound Localization Of Right Internal Jugular Vein, Fluoroscopy For Positioning, Moderate Concious Sedation 0837 to 0916(Right) - Efren Boyd MD Ordered Studies 11/17/19 07:13 EV cvc insrt tunnel wo prt/jumpbasting collar baster Routine 11/17/19 07:14 US guide vascular access Routine Hospital Course (1) End stage renal disease: Miguel Mata is a 74 year old male admitted to [facility] from November 16 to 2019 after Permacath placement due to shortness of breath and hypoxia. Diagnosed with pulmonary edema due to end stage renal disease treated with dialysis which resolved the hypoxia after 2 sessions, 2 days in a row. On the first dialysis session he had a vasovagal syncope episode with straining on the toilet in addition to hydralazine given for hypertension. His uremic encephalopathy also improving with improvement in appetite and smaller improvements in fatigue and confusion. Next dialysis planned as outpatient on Saturday. Glipizide discontinued as glucose values and HbA1C while admitted suggest his diabetes is over treated at this time and more concerned about hypoglycemia. No changes to anti-hypertensives made but suspect these may need to be decreased as he undergoes regular dialysis (2) Volume overload: Hypoxia with volume overload on exam and CXR due to ESRD. Possible diastolic heart failure contributory given proximal infero-posterior wall hypokinesis but hypervolemia state primarily driven by his ESRD. Volume management with dialysis. He still produces urine therefore diuretics may be of some use but will defer to his nephrology team. (3) Acute respiratory failure with hypoxia: (4) Uremic encephalopathy: (5) Macrocytic anemia: (6) Diabetes mellitus with circulatory complication: (7) Hypertensive urgency: (8) Vasovagal syncope: (9) Constipation: (10) Arteriosclerotic cardiovascular disease: (11) Cerebral artery occlusion with cerebral infarction: (12) Peripheral artery disease: (13) History of CVA with residual deficit: (14) Right foot drop: (15) Seizure disorder: Total Time Total Time Spent Total Time Spent (In Minutes): 35 Total Time Includes: Examination of the Patient, Discharge Planning and Medication Reconciliation Discharge Plan Discharge Items Patient Disposition: Home - Home Health Services Reason For Visit: End Stage Renal Disease Discharge Diagnosis: End stage renal disease Pulmonary edema Uremic encephalopathy (confusion due to high urea levels) Anemia of chronic kidney disease Activity: Resume your previous activity Non-emergency contact: Primary Care Provider and Dinkey Engine Mechanic Call non-emergency contact if: you have any medication questions, your symptoms worsen, your pain is not controlled, your pain is worsening, your pain is unusual for you, your pain is concerning for you, your temperature is above 101.5, your wound has increased redness, your wound has increased drainage and your wound pain has increased Follow-up/Referrals: Jarrod Malik MD [Physician] - (appointment to be arranged by nephrology) Erick Zapata III, MD [Primary Care Provider] - 11/26/19 3:00 pm (Your appointment is with Dr Zapata's nurse practitioner, Jerilyn Sorto. If you need to change this appointment, please call [phone].) Diet: Dialysis Renal Addtl Attending Provider Instructions: You were admitted to [facility] from November 16 to 2019 after Permacath placement due to shortness of breath and hypoxia (low oxygen saturations). This was caused by pulmonary edema (fluid on your lungs) treated with dialysis and you are no longer requiring oxygen. You also had a degree of uremic encephalopathy (confusion, sleepiness and reduced appetite due to high urea levels) this was also treated with dialysis. You are now medically stable for discharge. Please continue to follow up with the dialysis center for further treatment. Next dialysis on Saturday. Your glipizide for diabetes has been discontinued as glucose values and HbA1C while admitted suggest you no longer require this medication. Please follow up with your primary care provider regarding this. No changes to your blood pressure medications have been made at this time but since you are starting dialysis these may need to be reduced. 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 Kind regards, Dr Jarrod Floyd Patient Coordinator Provider Instructions: SPECIAL CARE INSTRUCTIONS: Take this form to dialysis and give it to the dialysis nurse. May use permcath for dialysis. Medications: * Continue to take your medications as directed. If you have been given a prescription for Plavix, please fill it immediately and take as directed. Incision Care: * Your puncture site may have some bruising and minor swelling for about one week. * You will have a small dressing covering your puncture site. You may remove the dressing after 24 hours and shower. You may let the warm soapy water run over it, but be sure to dry the puncture site well and keep it dry. * DO NOT IMMERSE THE INCISION IN A TUB/POOL/etc. UNTIL HEALED. * Puncture sites should be kept covered with a band-aid until it begins to heal. Restrictions: * Depending on whether you leg or arm was punctured to access the arteries, you will be required to lay flat, hold your arm still, or both, for about 4 hours after the procedure to prevent bleeding. * Limit your activity for the first 48 hours. You may walk and go up and down steps. Avoid excessive bending or movement at the puncture site. Possible Complications: * Excessive Swelling - after blood flow is improved you may notice increased swelling in the lower legs. This is a normal response. This usually depends on the amount of blockages in the leg, how long they have been there prior to your procedure and how much blood flow was restored. Elevating your legs will help to improve this. Please notify our office ([phone]) if the swelling does not go away after lying in bed overnight. * Infection/Drainage/Bleeding - Drainage or bleeding from the puncture site should be minimal. If you have excessive bleeding or drainage, call our office ([phone]) right away. * Pain - You may experience some mild pain or soreness at your puncture site. If your pain does not improve, please contact our office ([phone]). Call your doctor and seek emergent treatment if you develop: * Temperature above 101 degrees * Any fever or chills * Any redness or purulent drainage from the puncture site * Any new dusky/blue colored toes or feet with coolness or sharp or aching pain. SKIN IRRITATION: * You may experience some redness and/or swelling in the area where radiation was administered. If any skin irritation occurs, please contact your family physician. FOLLOW UP VISIT: Keep any scheduled doctor appointments. Call [phone] to schedule a follow up appointment if one not already scheduled. Pending Studies at Discharge: No Stand-Alone Forms: Anesthesia/Sedation, Adult, [facility], Smoking Cessation Medications and DC Order Prescriptions: New sevelamer HCl [Renagel] 800 mg Tablet 800 mg PO BID@1130,1700 Qty: 60 RF: 0 Renal Caps 1 mg Capsule 1 cap PO QAM Qty: 30 RF: 0 Continued phenytoin sodium extended 100 mg capsule 100 mg PO BID Qty: 180 RF: 3 atorvastatin 80 mg tablet 80 mg PO DAILY Qty: 90 RF: 3 clopidogrel 75 mg tablet 75 mg PO DAILY Qty: 90 RF: 3 ranitidine HCl 150 mg tablet 150 mg PO BID Qty: 180 RF: 3 isosorbide mononitrate 60 mg tablet extended release 24 hr 60 mg PO DAILY Qty: 30 RF: 5 Tucks (witch balta) 50 % pads, medicated 1 pad TOP BID Qty: 100 RF: 0 amlodipine 10 mg tablet 10 mg PO DAILY Qty: 90 RF: 2 nitroglycerin [Nitrostat] 0.4 mg tablet, sublingual 0.4 mg SL .PRN/UD PRN (Reason: Chest Pain) Qty: 25 RF: 0 metoprolol tartrate 50 mg tablet 50 mg PO BID Qty: 180 RF: 3 citalopram 10 mg tablet 10 mg PO DAILY Qty: 30 RF: 5 calcitriol 0.25 mcg capsule 0.25 mcg PO 3XWK RF: 0 docusate sodium [Stool Softener] 100 mg Capsule 100 mg PO DAILY RF: 0 Discontinued glipizide 2.5 mg tablet extended release 24hr 2.5 mg PO DAILY Qty: 90 RF: 1 Discharge Orders: Discharge Order (Routine); Ordered 11/20/19 Ordered By: Jarrod Paniagua/Other Patient Handouts: Surgery Prevent DVT After, Hemodialysis Admission Data Admit Date/Time: 11/17/19 11:41 Attending Provider: Jarrod Henderson Admit Provider: Kika Hardy Primary Care Provider: Erick Zapata III Other Providers: Joss Maxwell ; Tabitha Muniz ; [place] Other Interventions: Discharge Summary Assessment (RN) Last Done: 11/20/19 12:51 DC Date/Time DO NOT enter until pt leaves facility: 11/20/19 13:30 Coding Level of Care Code D/C Day Management >30 mins Diagnoses End stage renal disease N18.6 Volume overload E87.79 Hypervolemia type: other Acute respiratory failure with hypoxia J96.01 Uremic encephalopathy G93.41; N19 Macrocytic anemia D53.9 Diabetes mellitus with circulatory complication E11.51 Diabetes mellitus complication detail: with peripheral angiopathy without gangrene Diabetes mellitus intermediate project manager insulin use: without intermediate project manager use Diabetes mellitus type: type 2 Hypertensive urgency I16.0 Vasovagal syncope R55 Constipation K59.04 Constipation type: chronic idiopathic constipation Arteriosclerotic cardiovascular disease I25.10 Cerebral artery occlusion with cerebral infarction Peripheral artery disease I73.9 History of CVA with residual deficit I69.30 Right foot drop M21.371 Seizure disorder G40.909
[2019-11-20] MEDS: SEVELAMER HCL 800 MG TABLET PO SCH (12:44)
== END 2019-11-20 13:30 | disposition home health service (06) | DRG 682 ==
LOC: 2S 06:14 → ASU 06:14 → SUATTDRO 11:41 → OBSVTOIN 11:41 → INTOOBSV 11:41 → 4W 11-19 17:08

== ENCOUNTER 2019-11-24 09:43 | Observation (INO) ==
[2019-11-24 10:06] LABS: Basophils # (auto) 0.01 K/uL (0-0.2); Basophils % (auto) 0.1 %; Eosinophils # (auto) 0.01 K/uL (0-0.5); Eosinophils % (auto) 0.1 %; Hemoglobin 9.9 g/dL (14.0-18.0); Immature Granulocytes # (auto) 0.08 K/uL (0.00-0.02); Immature Granulocytes % (auto) 0.8 %; Lymphocytes # (auto) 1.22 K/uL (1.2-3.4); Lymphocytes % (auto) 11.8 %; Mean Corpuscular Hemoglobin 32.6 pg (25-34); Mean Corpuscular Hgb Conc 31.9 g/dL (32-36); Mean Platelet Volume 10.1 fL (7.4-10.4); Monocytes # (auto) 2.14 K/uL (0.11-0.59); Monocytes % (auto) 20.8 %; Neutrophils # (auto) 6.85 K/uL (1.4-6.5); Neutrophils % (auto) 66.4 %; Nucleated RBC # (auto) 0.02 K/uL (0-0); Nucleated RBC % (auto) 0.2 %; Platelet Count 210 K/uL (130-400); RDW Coefficient of Variation 15.2 % (11.5-14.5); RDW Standard Deviation 55.5 fL (36.4-46.3); Red Blood Count 3.04 M/uL (4.7-6.1); White Blood Count 10.31 K/uL (4.8-10.8)
[2019-11-24] MEDS ORDERED: CALCIUM GLUCONATE 10% 10 ML VIAL IV STA (10:26)
[2019-11-24 10:31] LABS: Albumin Level 2.7 gm/dl (3.4-5.0); BUN Creatinine Ratio 8.5 (10-20); Calcium 8.4 mg/dl (8.5-10.1); Creatinine Clr Calc Pharmacy 27.1 ml/min; Est GFR (African American) 34.9; Est GFR (Non-African American) 30.1; Potassium 4.5 mmol/L (3.5-5.1)
[2019-11-24 10:44] LABS: Albumin Globulin Ratio 0.6 (0.9-2); Bilirubin,Total 0.5 mg/dl (0.2-1); Globulin 4.4 gm/dl (2.5-4.0); Thyroid Stimulating Hormone 1.9 uIu/ml (0.300-4.500); Total Protein 7.1 gm/dl (6.4-8.2); Troponin I 0.144 ng/ml (0-0.045)
--- NOTE | 2019-11-24 10:50 | XRay Report ---
SINGLE VIEW CHEST CLINICAL HISTORY: Hypoxia. Syncope. FINDINGS: An AP, portable, upright chest radiograph is compared to study dated 11/17/2019 and correlate d with chest CT dated 12/20/2018. The examination is degraded by portable technique and patient rotatio n. A right-sided central venous catheter is unchanged in position. The patient is status post midline sternotomy. The heart is enlarged noting atherosclerotic calcification of the thoracic aorta. There is pulmonary vascular congestion. Emphysema and chronic interstitial thickening are similar to previo us. Atelectasis is noted at the lung bases. Trace pleural effusions are suspected. No pneumothorax is seen. The skeletal structures are osteopenic. The bony thorax is grossly intact. IMPRESSION: 1. Cardiomegaly and emphysema with evidence of pulmonary vascular congestion. 2. Suspect trace pleural effusions. ACT 112: Negative or not required by law. Electronically signed by: Servando Mtz M.D. 11/24/2019 10:48 AM
[2019-11-24 10:53] LABS: INR 1.1 (0.9-1.1); Prothrombin Time 11.3 Seconds (9.0-12.0)
[2019-11-24] MEDS ORDERED: ASPIRIN CHEW 324 MG PO STA (11:06)
--- NOTE | 2019-11-24 12:29 | History & Physical Report ---
Date of Service November 24, 2019 Assessment & Plan (1) Syncope: 74-year-old male was admitted on 24 November 2019 for syncope while at dialysis. Of note, patient was admitted less than one week ago (November 16-) for ESRD, pulmonary edema, uremic encephalopathy, and anemia of chronic disease. Syncope, hypoxia: History per family, as patient is not very contributory to his history. Son is adamant that he has ongoing constipation and hemorrhoidal pain which is led to this event. It is entirely possible he is having vasovagal events. Unclear what the cause of his mild hypoxia is, as he does not appear acutely infected or with overt fluid overload. Suspect mild TnI elevation is more kidney than heart related. No reported seizure-like activity. - In ED, afebrile, no tachycardia, moderately hypertensive, with a room SpO2 of 89%. WBC 10. pCXR noted pulmonary vascular congestion, emphysema, and trace pleural effusions. TnI 0.144. EKG is NSR 81, nonspecific changes in the lateral leads (similar to discharge EKG). TSH normal. - In ED, treated with aspirin 324 mg and calcium gluconate 2 gm IV (precautionary due to prolonged QTc before K was back). - Will keep on campus monitor. Recheck troponin about 6 hours after original. Supplemental oxygen to keep SpO2 over 92%. Constipation, thrombosed external hemorrhoid: Reported CODE BLUE event back on in the setting of straining due to constipation. Constipation may be contributory to this morning's event as well. Is already on docusate daily. - Will check a KUB for stool burden. Also will try Golytely 1-2 liters to see if that leads to a BM. May eventually need to be on a MiraLAX regimen. - Will also consult general surgery for their thoughts/evaluation/treatment of his hemorrhoidal disease. Elevated transaminases: Admit AST 147 and ALT 91, both higher than discharge. Will recheck in a.m. Prolonged QTc: Admit EKG QTc 550. Try to avoid QTC prolonging medications. Renal artery stenosis, ESRD: Per , followed by Dr. Maxwell as outpatient. On dialysis but still produces urine. Permacath placement on . Left renal artery stenting back on . - Consult nephrology on admission. Ongoing medical issues: - HTN, HLD, CAD s/p CABG, PAD: See echocardiogram report on Nov (EF 50-55%). Continue home amlodipine, atorvastatin, clopidogrel, Imdur, metoprolol. - Diabetes type 2, ophthalmologic manifestations, peripheral neuropathy: 04Mar HbA1c was 5.4. Not on any DM meds presently. --- Added insulin sliding scale. - History of CVA: Residual right foot drop and generalized lower extremity + right upper extremity weakness, mild expressive aphasia. - Macrocytic anemia: History of same. Admit hemoglobin 9.9. He does have some likely hemorroidal bleeding, so continue to monitor. - Seizure disorder: Continue home phenytoin. - GERD: Held home zantac, swapped to famotidine 20 mg. Code status: DNR/DNI. Diet: Renal, DM2. DVT prophy: Heparin. PT/OT: Deferred. Disbo: Admit to [facility] telemetry for observation. (2) Hypoxia: (3) Constipation: (4) Hemorrhoids, thrombosed: (5) Elevated transaminase level: (6) Prolonged QT interval: (7) Renal artery stenosis: (8) End stage renal disease: (9) Hypertension: (10) Hyperlipidemia: (11) CAD (coronary artery disease): (12) Peripheral artery disease: (13) Diabetes mellitus: (14) Diabetic peripheral neuropathy: (15) History of CVA (cerebrovascular accident): (16) Expressive aphasia: (17) Macrocytic anemia: (18) Seizure disorder: (19) GERD (gastroesophageal reflux disease): History of Present Illness Primary Care Provider: Erick Zapata MD 74-year-old male was transferred from his dialysis center earlier this morning after a reported episode of syncope. Specific details from that center are not available. The patient himself has a history of a CVA, seems mildly confused at baseline despite his known expressive aphasia, answers questions with yes or no but often changes his answers immediately, and is relatively noncontributory in his overall history. - Per patient's son at bedside, the patient has undergone a couple of previous outpatient dialysis sessions without incident. This morning the patient was reportedly undergoing dialysis, perhaps for a couple of hours, at which point the patient decided he needed to have a bowel movement. Patient son thinks that this caused a syncopal episode which immediately resulted in his transfer here. Patient son says that he has some level of undifferentiated hemorrhoidal disease that causes him a lot of discomfort and some rectal bleeding. He reportedly had a normal colonoscopy within the past couple of years. He also says that the patient will often deny having rectal pain because he has not wanted any procedures in the past. Patient does have a history of seizures but there was no reported seizure-like activity this morning. - Past medical history includes syncope, constipation, prolonged QTC, renal artery stenosis, end-stage renal disease, hypertension, hyperlipidemia, CAD, PAD, diabetes type 2, CVA, BPH, microcytic anemia, seizure disorder, GERD - Past surgical history includes iliofemoral bypass, EGD, CABG, left renal artery stenting, permacath placement - Social history includes history of 1 pack/day smoking. Denies alcohol use. Lives at home with spouse. Allergies Allergy/AdvReac Type Severity Reaction Status Date / Time adhesive Allergy Unknown BLISTERING Verified 11/24/19 10:07 OF SKIN latex Allergy Rash Verified 11/24/19 10:07 Home Medications Home Medications Medication Instructions Recorded Confirmed Type phenytoin sodium extended 100 mg 100 mg PO BID #180 cap 02/24/19 11/24/19 Rx capsule atorvastatin 80 mg tablet 80 mg PO DAILY #90 tab 03/11/19 11/24/19 Rx clopidogrel 75 mg tablet 75 mg PO DAILY #90 tab 03/11/19 11/24/19 Rx nitroglycerin 0.4 mg sublingual 0.4 mg SL .PRN/UD PRN #25 tab 03/11/19 11/24/19 History tablet metoprolol tartrate 50 mg tablet 50 mg PO BID #180 tab 03/30/19 11/24/19 Rx citalopram 10 mg tablet 10 mg PO DAILY #30 tab 07/08/19 11/24/19 Rx amlodipine 10 mg tablet 10 mg PO DAILY #90 tab 07/28/19 11/24/19 Rx calcitriol 0.25 mcg PO 3XWK 10/14/19 11/24/19 History ranitidine HCl 150 mg tablet 150 mg PO BID #180 tab 11/10/19 11/24/19 Rx isosorbide mononitrate 60 mg 60 mg PO DAILY #30 tab 11/11/19 11/24/19 Rx tablet,extended release 24 hr witch balta 50 % topical pads 1 pad TOP BID #100 ea 11/16/19 11/24/19 Rx docusate sodium [Stool Softener] 100 mg PO DAILY 11/17/19 11/24/19 History B complex with C 20-folic acid 1 cap PO QAM #30 cap 11/20/19 11/24/19 Rx [Renal Caps] sevelamer HCl [Renagel] 800 mg PO BID@1130,1700 #60 tab 11/20/19 11/24/19 Rx Past Med/Surg History Medical History Arteriosclerotic cardiovascular disease (Acute) Benign prostatic hyperplasia (Acute) Cerebral artery occlusion with cerebral infarction (Acute) Congestive heart failure (CHF) (Acute) Diabetes mellitus with circulatory complication (Chronic) Diabetic peripheral neuropathy (Acute) Esophageal reflux (Acute) H/O tobacco use, presenting hazards to health (Acute) Hemiparesis (Acute) Hyperlipidemia (Chronic) Mitral regurgitation (Acute) Nausea, vomiting, and diarrhea (Inactive) Seizure disorder (Chronic) SNHL (sensorineural hearing loss) (Acute) Stroke syndrome (Acute) 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 (Acute) Type 2 DM with CKD stage 3 and hypertension Surgical History History of aorto-femoral bypass History of bypass graft (non vein) Aortic-femoral or bifemoral History of esophagogastroduodenoscopy (EGD) Family History Brother Hypertension Hypercholesteremia Sister Diabetes Unknown Hypertension Cardiac disorder Social History Preferred Language: Peruvian Communication Ability: Impaired Communication Ability Comment: can speak few words son says sometimes speaks sentences Senior It Engineer Required: No Beliefs That Will Affect Care: None marital status: Current Living Situation: Spouse Current Living Situation Comment: In apartment per . Other Information That Helps Us Care for You: No Feels Safe at Home: Yes Safety Concerns: Feels Safe At This Time Smoking Status: Former smoker Tobacco Type: cigarettes ; Cigarettes Per Day: Quit about 10 years ago. 2 packs per day for 40 years. ; Second Hand Exposure: No ; Hx Alcohol Use: No Hx Substance Use: No caffeine: No Seatbelt Use: always Review of Systems Review of Systems: Unable to obtain ROS due to patient's underlying expressive aphasia and possible underlying dementia. Physical Exam Physical Exam: GENERAL: Awake, alert, in no acute distress. HENT: Normocephalic, atraumatic. Oropharynx dry. EYES: Normal conjunctiva. Sclera non-icteric. NECK: Inspection normal. Supple and full ROM. No nuchal rigidity. CARDIAC: +S1S2 RRR, no murmurs. Well-healed midline sternotomy scar. RESPIRATORY: Clear to auscultation. No wheezes or rales. Normal respiratory effort. GI: +BS, soft, non-distended. No tenderness to palpation. No rebound or guarding. No appreciable masses. Rectal: There is a thrombosed external hemorrhoid present. Dried blood around the anus. EXTREMITIES: No pedal edema or calf tenderness. NEURO: Difficulty raising the right arm and leg off of the bed. He knows he has delayed speech and only answers questions with yes or no, though he often will immediately change his answer after asked the same question. He will smile and at times nod his head yes or no which seems more reliable. Lines: Right upper chest permacath in place. Results & Data Vital Signs (Past 12 Hours) Vital Signs Temp Pulse Pulse Resp BP BP Pulse Ox 11/24/19 11:07 78 16 155/86 H 11/24/19 09:59 89 L 11/24/19 09:49 36.7 C 76 20 164/91 H 88 L Laboratory Results 11/24/19 11/24/19 11/24/19 Range/Units 10:22 09:56 09:50 WBC (4.8-10.8) K/uL RBC (4.7-6.1) M/uL Hgb (14.0-18.0) g/dL Hct (42-52) % MCV (80-100) fL MCH (25-34) pg MCHC (32-36) g/dL RDW Std Deviation (36.4-46.3) fL RDW Coeff of Shayy (11.5-14.5) % Plt Count (130-400) K/uL MPV (7.4-10.4) fL Immature Gran % (Auto) % Neut % (Auto) % Lymph % (Auto) % Coos % (Auto) % Eos % (Auto) % Baso % (Auto) % Immature Gran # (Auto) (0.00-0.02) K/uL Neut # (Auto) (1.4-6.5) K/uL Lymph # (Auto) (1.2-3.4) K/uL Coos # (Auto) (0.11-0.59) K/uL Eos # (Auto) (0-0.5) K/uL Baso # (Auto) (0-0.2) K/uL Absolute Nucleated RBC (0-0) K/uL Nucleated RBC % (auto) % PT 11.3 (9.0-12.0) Seconds INR 1.1 (0.9-1.1) Sodium 138 (136-145) mmol/L Potassium 4.5 (3.5-5.1) mmol/L Chloride 101 (98-107) mmol/L Carbon Dioxide 32 (21-32) mmol/L Anion Gap 5.0 (3-11) BUN 18 (7-18) mg/dl Creatinine 2.10 H (0.6-1.4) mg/dl Est Cr Clr Drug Dosing 27.1 ml/min Est GFR ( Amer) 34.9 Est GFR (Non-Af Amer) 30.1 BUN/Creatinine Ratio 8.5 L (10-20) Glucose 98 (70-99) mg/dl POC Glucose 105 H (70-99) mg/dl Calcium 8.4 L (8.5-10.1) mg/dl Magnesium 2.0 (1.8-2.4) mg/dl Total Bilirubin 0.5 (0.2-1) mg/dl AST 147 H (15-37) U/L ALT 91 H (12-78) U/L Alkaline Phosphatase 84 (45-117) U/L Troponin I 0.144 H* (0-0.045) ng/ml Total Protein 7.1 (6.4-8.2) gm/dl Albumin 2.7 L (3.4-5.0) gm/dl Globulin 4.4 H (2.5-4.0) gm/dl Albumin/Globulin Ratio 0.6 L (0.9-2) TSH 1.900 (0.300-4.500) uIu/ml Specimen Hemolysis 11/24/19 Range/Units 09:50 WBC 10.31 (4.8-10.8) K/uL RBC 3.04 L (4.7-6.1) M/uL Hgb 9.9 L (14.0-18.0) g/dL Hct 31.0 L (42-52) % MCV 102.0 H (80-100) fL MCH 32.6 (25-34) pg MCHC 31.9 L (32-36) g/dL RDW Std Deviation 55.5 H (36.4-46.3) fL RDW Coeff of Shayy 15.2 H (11.5-14.5) % Plt Count 210 (130-400) K/uL MPV 10.1 (7.4-10.4) fL Immature Gran % (Auto) 0.8 % Neut % (Auto) 66.4 % Lymph % (Auto) 11.8 % Coos % (Auto) 20.8 % Eos % (Auto) 0.1 % Baso % (Auto) 0.1 % Immature Gran # (Auto) 0.08 H (0.00-0.02) K/uL Neut # (Auto) 6.85 H (1.4-6.5) K/uL Lymph # (Auto) 1.22 (1.2-3.4) K/uL Coos # (Auto) 2.14 H (0.11-0.59) K/uL Eos # (Auto) 0.01 (0-0.5) K/uL Baso # (Auto) 0.01 (0-0.2) K/uL Absolute Nucleated RBC 0.02 H (0-0) K/uL Nucleated RBC % (auto) 0.2 % PT (9.0-12.0) Seconds INR (0.9-1.1) Sodium (136-145) mmol/L Potassium (3.5-5.1) mmol/L Chloride (98-107) mmol/L Carbon Dioxide (21-32) mmol/L Anion Gap (3-11) BUN (7-18) mg/dl Creatinine (0.6-1.4) mg/dl Est Cr Clr Drug Dosing ml/min Est GFR ( Amer) Est GFR (Non-Af Amer) BUN/Creatinine Ratio (10-20) Glucose (70-99) mg/dl POC Glucose (70-99) mg/dl Calcium (8.5-10.1) mg/dl Magnesium (1.8-2.4) mg/dl Total Bilirubin (0.2-1) mg/dl AST (15-37) U/L ALT (12-78) U/L Alkaline Phosphatase (45-117) U/L Troponin I (0-0.045) ng/ml Total Protein (6.4-8.2) gm/dl Albumin (3.4-5.0) gm/dl Globulin (2.5-4.0) gm/dl Albumin/Globulin Ratio (0.9-2) TSH (0.300-4.500) uIu/ml Specimen Hemolysis Medications Administered Discontinued Medications Aspirin (Aspirin) 324 mg PO NOW STA Stop: 11/24/19 11:07 Last Admin: 11/24/19 12:02 Dose: 324 mg Documented by: [id number] Calcium Gluconate (Calcium Gluconate 10%) 2,000 mg IV NOW STA Stop: 11/24/19 10:27 Last Admin: 11/24/19 12:04 Dose: 2,000 mg Documented by: [id number] Code Status & VTE Plan Code Status DNR/DNI VTE Prophylaxis Plan VTE Prophylaxis will be ordered: Yes Supervising Physician Co-Signing Physician Notes I have seen and examined pt with Dr. Purvis and agree with the assessment and plan. My PE: GENERAL: Awake, alert, NAD HENT: Normocephalic, atraumatic. Oropharynx dry. EYES: Normal conjunctiva. Sclera non-icteric. NECK: Inspection normal. Supple and full ROM. No nuchal rigidity. CARDIAC: +S1S2 RRR, no murmurs. Well-healed midline sternotomy scar. RESPIRATORY: CTAB, on NC GI: +BS, soft, non-distended. No tenderness to palpation. No rebound or guarding. No appreciable masses. Rectal: There is a thrombosed external hemorrhoid present. Dried blood around the anus. EXTREMITIES: No pedal edema or calf tenderness. NEURO: Difficulty raising the right arm and leg off of the bed. He knows he has delayed speech and only answers questions with yes or no, though he often will immediately change his answer after asked the same question. He will smile and at times nod his head yes or no which seems more reliable. Lines: Right upper chest permacath in place. Resident Activity Tracking Resident Involvement: Resident Care Provided Care Provided: [facility] (1) Syncope Syncope type: unspecified Qualified Code(s): R55 - Syncope and collapse (2) Constipation Constipation type: chronic idiopathic constipation Qualified Code(s): K59.04 - Chronic idiopathic constipation
--- NOTE | 2019-11-24 13:04 | Emergency Department Note ---
Entered by David Ramirez acting as a scribe for Foreign Grayson MD History of Present Illness General Chief complaint: Syncope Stated complaint: syncope Time Seen by Provider: 11/24/19 09:43 Source: patient, family () and RN notes reviewed Limitations: altered mental status History of Present Illness Onset (ago): hour(s) (LAW SECRETARY) Location: head Pain Consistency: + other (episode) Quality: + other (episode) Associated symptoms: + denies other symptoms (diarrhea, neck pain); no chest pain and no headaches The patient is a 74 years old male with CAD, history of CVA, diabetes mellitus type 2, hypertension, dyslipidemia, BPH, history of tobacco abuse, renal artery stenosis and end-stage renal disease who presents to the ED w/ CC of syncope occurring LAW SECRETARY. The patient states he is not in any pain. He denies having a headache, chest pain, and neck pain. The patient's states the patient was getting dialysis. She states she is unsure if he was sitting or standing. She states this is the fourth time the patient got dialysis. She states the patient did not eat much today. The states the patient has a history of seizures, but states she is unsure if he had a seizure. She denies the patient having diarrhea. Most of the history of the illness was gathered from the nursing reports and the patient's . HPI is limited secondary to altered mental status. Home Medications Home Medications Medication Instructions Recorded Confirmed Type phenytoin sodium extended 100 mg 100 mg PO BID #180 cap 02/24/19 11/24/19 Rx capsule atorvastatin 80 mg tablet 80 mg PO DAILY #90 tab 03/11/19 11/24/19 Rx clopidogrel 75 mg tablet 75 mg PO DAILY #90 tab 03/11/19 11/24/19 Rx nitroglycerin 0.4 mg sublingual 0.4 mg SL .PRN/UD PRN #25 tab 03/11/19 11/24/19 History tablet metoprolol tartrate 50 mg tablet 50 mg PO BID #180 tab 03/30/19 11/24/19 Rx citalopram 10 mg tablet 10 mg PO DAILY #30 tab 07/08/19 11/24/19 Rx amlodipine 10 mg tablet 10 mg PO DAILY #90 tab 07/28/19 11/24/19 Rx calcitriol 0.25 mcg PO 3XWK 10/14/19 11/24/19 History ranitidine HCl 150 mg tablet 150 mg PO BID #180 tab 11/10/19 11/24/19 Rx isosorbide mononitrate 60 mg 60 mg PO DAILY #30 tab 11/11/19 11/24/19 Rx tablet,extended release 24 hr witch balta 50 % topical pads 1 pad TOP BID #100 ea 11/16/19 11/24/19 Rx docusate sodium [Stool Softener] 100 mg PO DAILY 11/17/19 11/24/19 History B complex with C 20-folic acid 1 cap PO QAM #30 cap 11/20/19 11/24/19 Rx [Renal Caps] sevelamer HCl [Renagel] 800 mg PO BID@1130,1700 #60 tab 11/20/19 11/24/19 Rx Allergies Allergy/AdvReac Type Severity Reaction Status Date / Time adhesive Allergy Unknown BLISTERING Verified 11/24/19 10:07 OF SKIN latex Allergy Rash Verified 11/24/19 10:07 Past Med/Surg History Medical History Arteriosclerotic cardiovascular disease (Acute) Benign prostatic hyperplasia (Acute) Cerebral artery occlusion with cerebral infarction (Acute) Congestive heart failure (CHF) (Acute) Diabetes mellitus with circulatory complication (Chronic) Diabetic peripheral neuropathy (Acute) Esophageal reflux (Acute) H/O tobacco use, presenting hazards to health (Acute) Hemiparesis (Acute) Hyperlipidemia (Chronic) Mitral regurgitation (Acute) Nausea, vomiting, and diarrhea (Inactive) Seizure disorder (Chronic) SNHL (sensorineural hearing loss) (Acute) Stroke syndrome (Acute) 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 (Acute) Type 2 DM with CKD stage 3 and hypertension Surgical History History of aorto-femoral bypass History of bypass graft (non vein) Aortic-femoral or bifemoral History of esophagogastroduodenoscopy (EGD) Family History Brother Hypertension Hypercholesteremia Sister Diabetes Unknown Hypertension Cardiac disorder Social History Preferred Language: Swazi Communication Ability: Impaired Communication Ability Comment: can speak few words son says sometimes speaks sentences Pit Furnace Operator Required: No Beliefs That Will Affect Care: None marital status: Current Living Situation: Spouse Current Living Situation Comment: In apartment per . Other Information That Helps Us Care for You: No Feels Safe at Home: Yes Safety Concerns: Feels Safe At This Time Smoking Status: Former smoker Tobacco Type: cigarettes ; Cigarettes Per Day: Quit about 10 years ago. 2 packs per day for 40 years. ; Second Hand Exposure: No ; Hx Alcohol Use: No Hx Substance Use: No caffeine: No Seatbelt Use: always Review of Systems Other (Unobtainable due to altered mental status) Physical Exam Vital Signs Vital Signs - 24 hr 11/24/19 09:49 11/24/19 09:59 11/24/19 11:07 Temperature 36.7 C Temperature Source Oral Pulse Rate - Lying 78 Pulse Rate - Sitting 86 Pulse Rate 76 Pulse Rate [Apical] 78 Respiratory Rate 20 16 Blood Pressure - Lying 155/86 H Blood Pressure - Sitting 154/89 H Blood Pressure 164/91 H Blood Pressure [Right Arm] 155/86 H Blood Pressure Mean 115 Blood Pressure Mean [Right Arm] 109 Pulse Oximetry 88 L 89 L Oxygen Delivery Method Room Air Room Air Nasal Cannula Sepsis Recent Fever Within 48 Hours No Sepsis New/Unexplained Change in Mental Status No Sepsis Action Taken by Nursing No Action Required Oxygen Flow Rate - Titration 2 Pulse Oximetry Post Tiitration 96 GENERAL: Well nourished, non-toxic. Nasal cannula in place. No deformities to the head. EYE EXAM: Normal conjunctiva. PERRL, no anisocoria and EOM's grossly intact w/o pain. OROPHARYNX: Moist mucus membranes. Grossly normal dentition. NECK: Supple, no nuchal rigidity, no adenopathy, non-tender. no signs of meningismus. No neck pain. Right IJ Permacath. LUNGS: Clear to auscultation. Normal chest wall mechanics. HEART: NSR, no MRG. ABDOMEN: Abdomen soft, non-tender, normo-active bowel sounds, no masses, no rebound or guarding. BACK: No CVA TTP. SKIN: No rashes and no bruising. UPPER EXTREMITIES: Upper extremities are grossly normal. No obvious deformities. Good ROM. LOWER EXTREMITIES: No pitting edema. No calf pain. No obvious deformities. Good ROM. NEURO EXAM: Pleasantly confused. Gross vision intact. Answers most questions appropriately. Moves all 4 extremities. Denies sensory deficits. Course Course 0947: The patient was evaluated in room B9, and a complete history and physical examination were performed. 1020: I reevaluated the patient. His heart rate is 88. 1042: I reevaluated the patient. The patient is doing well. The patient's son is at bedside. 1126: I was notified the patient received steroids and 2 Duoneb in route. 1127: I discussed the patient's case with Dr. Purvis - [facility] resident physician. Dr. Hardy will evaluate the patient for further management Administered Medications Discontinued Medications Aspirin (Aspirin) 324 mg PO NOW STA Stop: 11/24/19 11:07 Last Admin: 11/24/19 12:02 Dose: 324 mg Documented by: [id number] Calcium Gluconate (Calcium Gluconate 10%) 2,000 mg IV NOW STA Stop: 11/24/19 10:27 Last Admin: 11/24/19 12:04 Dose: 2,000 mg Documented by: [id number] Medical Decision Making Differential Diagnosis Differential diagnosis includes etiologies such as vasovagal event, infection, hypoglycemia, electrolyte abnormalities, cardiac sources, intracerebral event, toxicologic, neurologic, as well as others were entertained. Medical Records Attestation: I reviewed the patient's medical records. The patient was discharged on 11/19 after placement of right IJ Permacath for dialysis Home Medications Current Medication List: was personally reviewed by me Laboratory Data Attestation: I reviewed the patient's lab results. Result diagrams: 11/24/19 09:50 11/24/19 09:50 Lab Results 11/24/19 11/24/19 11/24/19 Range/Units 09:50 09:50 09:56 WBC 10.31 (4.8-10.8) K/uL RBC 3.04 L (4.7-6.1) M/uL Hgb 9.9 L (14.0-18.0) g/dL Hct 31.0 L (42-52) % MCV 102.0 H (80-100) fL MCH 32.6 (25-34) pg MCHC 31.9 L (32-36) g/dL RDW Std Deviation 55.5 H (36.4-46.3) fL RDW Coeff of Shayy 15.2 H (11.5-14.5) % Plt Count 210 (130-400) K/uL MPV 10.1 (7.4-10.4) fL Immature Gran % (Auto) 0.8 % Neut % (Auto) 66.4 % Lymph % (Auto) 11.8 % [place] % (Auto) 20.8 % Eos % (Auto) 0.1 % Baso % (Auto) 0.1 % Immature Gran # (Auto) 0.08 H (0.00-0.02) K/uL Neut # (Auto) 6.85 H (1.4-6.5) K/uL Lymph # (Auto) 1.22 (1.2-3.4) K/uL [place] # (Auto) 2.14 H (0.11-0.59) K/uL Eos # (Auto) 0.01 (0-0.5) K/uL Baso # (Auto) 0.01 (0-0.2) K/uL Absolute Nucleated RBC 0.02 H (0-0) K/uL Nucleated RBC % (auto) 0.2 % PT (9.0-12.0) Seconds INR (0.9-1.1) Sodium 138 (136-145) mmol/L Potassium 4.5 (3.5-5.1) mmol/L Chloride 101 (98-107) mmol/L Carbon Dioxide 32 (21-32) mmol/L Anion Gap 5.0 (3-11) BUN 18 (7-18) mg/dl Creatinine 2.10 H (0.6-1.4) mg/dl Est Cr Clr Drug Dosing 27.1 ml/min Est GFR ( Amer) 34.9 Est GFR (Non-Af Amer) 30.1 BUN/Creatinine Ratio 8.5 L (10-20) Glucose 98 (70-99) mg/dl POC Glucose 105 H (70-99) mg/dl Calcium 8.4 L (8.5-10.1) mg/dl Magnesium 2.0 (1.8-2.4) mg/dl Total Bilirubin 0.5 (0.2-1) mg/dl AST 147 H (15-37) U/L ALT 91 H (12-78) U/L Alkaline Phosphatase 84 (45-117) U/L Troponin I 0.144 H* (0-0.045) ng/ml Total Protein 7.1 (6.4-8.2) gm/dl Albumin 2.7 L (3.4-5.0) gm/dl Globulin 4.4 H (2.5-4.0) gm/dl Albumin/Globulin Ratio 0.6 L (0.9-2) TSH 1.900 (0.300-4.500) uIu/ml Specimen Hemolysis 11/24/19 Range/Units 10:22 WBC (4.8-10.8) K/uL RBC (4.7-6.1) M/uL Hgb (14.0-18.0) g/dL Hct (42-52) % MCV (80-100) fL MCH (25-34) pg MCHC (32-36) g/dL RDW Std Deviation (36.4-46.3) fL RDW Coeff of Shayy (11.5-14.5) % Plt Count (130-400) K/uL MPV (7.4-10.4) fL Immature Gran % (Auto) % Neut % (Auto) % Lymph % (Auto) % [place] % (Auto) % Eos % (Auto) % Baso % (Auto) % Immature Gran # (Auto) (0.00-0.02) K/uL Neut # (Auto) (1.4-6.5) K/uL Lymph # (Auto) (1.2-3.4) K/uL [place] # (Auto) (0.11-0.59) K/uL Eos # (Auto) (0-0.5) K/uL Baso # (Auto) (0-0.2) K/uL Absolute Nucleated RBC (0-0) K/uL Nucleated RBC % (auto) % PT 11.3 (9.0-12.0) Seconds INR 1.1 (0.9-1.1) Sodium (136-145) mmol/L Potassium (3.5-5.1) mmol/L Chloride (98-107) mmol/L Carbon Dioxide (21-32) mmol/L Anion Gap (3-11) BUN (7-18) mg/dl Creatinine (0.6-1.4) mg/dl Est Cr Clr Drug Dosing ml/min Est GFR ( Amer) Est GFR (Non-Af Amer) BUN/Creatinine Ratio (10-20) Glucose (70-99) mg/dl POC Glucose (70-99) mg/dl Calcium (8.5-10.1) mg/dl Magnesium (1.8-2.4) mg/dl Total Bilirubin (0.2-1) mg/dl AST (15-37) U/L ALT (12-78) U/L Alkaline Phosphatase (45-117) U/L Troponin I (0-0.045) ng/ml Total Protein (6.4-8.2) gm/dl Albumin (3.4-5.0) gm/dl Globulin (2.5-4.0) gm/dl Albumin/Globulin Ratio (0.9-2) TSH (0.300-4.500) uIu/ml Specimen Hemolysis Imaging Data Radiologist's Impression: Radiology results as stated below per my review and the radiologist's interpretation: SINGLE VIEW CHEST CLINICAL HISTORY: Hypoxia. Syncope. FINDINGS: An AP, portable, upright chest radiograph is compared to study dated 11/17/2019 and correlated with chest CT dated 12/20/2018. The examination is degraded by portable technique and patient rotation. A right-sided central venous catheter is unchanged in position. The patient is status post midline sternotomy. The heart is enlarged noting atherosclerotic calcification of the thoracic aorta. There is pulmonary vascular congestion. Emphysema and chronic interstitial thickening are similar to previous. Atelectasis is noted at the lung bases. Trace pleural effusions are suspected. No pneumothorax is seen. The skeletal structures are osteopenic. The bony thorax is grossly intact. IMPRESSION: 1. Cardiomegaly and emphysema with evidence of pulmonary vascular congestion. 2. Suspect trace pleural effusions. ACT 112: Negative or not required by law. Electronically signed by: Servando Mtz M.D. 11/24/2019 10:48 AM ECG Data Attestation: I personally reviewed and interpreted this ECG as follows: Indication: + syncope Rate (beats per minute): 81 Rhythm: + sinus rhythm ECG Intervals/blocks: + Incomplete right bundle branch block and + Prolonged QT ECG [place]: + Left axis deviation ECG ST segments: + T-wave inversions (in aVL) ECG Findings: + PVCs (Occasional) Comparison ECG Date: from (11/17/19) Change: the following changes noted (QT is more prolonged. Incomplete RBBB is new. [place] has changed) Blood Pressure Blood Pressure Findings: Elevated blood pressure Blood Pressure Disposition: further management by hospitalist MDM Narrative The patient is a 74 years old male with CAD, history of CVA, diabetes mellitus type 2, hypertension, dyslipidemia, BPH, history of tobacco abuse, renal artery stenosis and end-stage renal disease who presents to the ED w/ CC of syncope occurring LAW SECRETARY. Continuous Cardiac Monitoring: An order was placed for continuous cardiac monitoring. The monitor shows a rate of 80 with a sinus rhythm Patient was seen and evaluated the bedside. The patient reportedly syncopized while at dialysis today. This is only his fourth dialysis appointment. He did have a recent right IJ permacath placed during a recent admission. Family is concerned but the possibility of syncopized been due to what they self described as straining to have a bowel movement. Given that the patient was not in the toilet during this time believe this may be less likely. The patient is pleas antly confused but at neurologic baseline. Blood work is obtained. Initial EKG does appear somewhat changed compared to prior and does have a positive troponin. No active chest pain or shortness of breath with the patient does require 2 L of supplemental oxygen. Patient was given a full dose aspirin. The patient was given calcium initially due to the prolonged QT but the potassium is within normal limits. Given the patient's syncope and multiple health comorbidities I do not believe he is safe for discharge at this time. I did speak the on-call hospitalist agreed to further evaluate treat the patient. Patient was admitted to the medicine service. Impression & Plan Syncope, Respiratory failure with hypoxia, Elevated troponin, ESRD on hemodialysis Discharge Plan Visit Data Chief Complaint: Syncope Stated Complaint: syncope ED Provider: Foreign Grayson Discharge Problem: Syncope, Respiratory failure with hypoxia, Elevated troponin, ESRD on h emodialysis Patient Disposition: Being Evaluated by Hospitalist Forms Stand Alone Forms: My [facility] [employer] Prescriptions Prescriptions: No Action phenytoin sodium extended 100 mg capsule 100 mg PO BID Qty: 180 RF: 3 atorvastatin 80 mg tablet 80 mg PO DAILY Qty: 90 RF: 3 clopidogrel 75 mg tablet 75 mg PO DAILY Qty: 90 RF: 3 ranitidine HCl 150 mg tablet 150 mg PO BID Qty: 180 RF: 3 isosorbide mononitrate 60 mg tablet extended release 24 hr 60 mg PO DAILY Qty: 30 RF: 5 Tucks (witch balta) 50 % pads, medicated 1 pad TOP BID Qty: 100 RF: 0 amlodipine 10 mg tablet 10 mg PO DAILY Qty: 90 RF: 2 nitroglycerin [Nitrostat] 0.4 mg tablet, sublingual 0.4 mg SL .PRN/UD PRN (Reason: Chest Pain) Qty: 25 RF: 0 metoprolol tartrate 50 mg tablet 50 mg PO BID Qty: 180 RF: 3 citalopram 10 mg tablet 10 mg PO DAILY Qty: 30 RF: 5 calcitriol 0.25 mcg capsule 0.25 mcg PO 3XWK RF: 0 docusate sodium [Stool Softener] 100 mg Capsule 100 mg PO DAILY RF: 0 sevelamer HCl [Renagel] 800 mg Tablet 800 mg PO BID@1130,1700 Qty: 60 RF: 0 Renal Caps 1 mg Capsule 1 cap PO QAM Qty: 30 RF: 0 Referrals Referrals: Erick Zapata III, MD [Primary Care Provider] - Discharge Problem: Syncope Qualifiers: Syncope type: unspecified Qualified Code(s): R55 - Syncope and collapse Respiratory failure with hypoxia Qualifiers: Chronicity: unspecified Qualified Code(s): J96.91 - Respiratory failure, unspecified with hypoxia The scribe's documentation has been prepared under my direction and personally reviewed by me in its entirety. I confirm that the note above accurately reflects all work, treatment, procedures, and medical decision making performed by me.
--- NOTE | 2019-11-24 14:54 | Nephrology Consultation ---
Date of Consultation November 24, 2019 Assessment & Plan (1) ESRD on hemodialysis: -- Completed 3 hours HD this morning -- Volume status & electrolyte balance are acceptable. No acute indication for HD today -- Recheck PRP, volume status in am (2) Syncope: -- Monitor cardiac rhythm and troponin -- Recommend echocardiogram -- Bilateral carotid bruit. Will order carotid doppler -- Possible seizure activity while on HD this morning. Recommend consultation w/ Neurology. Patient is on Dilantin therapy (3) Hemorrhoids, thrombosed: -- Await KUB results -- General surgery has been consulted. Await their recommendations History of Present Illness Reason for Consultation: ESRD History of Present Illness Mr. aMta is a 74 year old white male who is seen at the request of Dr. Hardy to provide inpatient HD. Medical records in the EMR were reviewed today and are summarized as follows: Mr. Mata has ESRD presumed to be due to vascular disease. He underwent R IJ THC insertion 11/16 and was started on HD. His initial treatment was complicated by a syncopal event. Family reports that Mr. Mata suffers from constipation and has a painful external hemorrhoid. During his initial treatment he needed to move his bowels. While on the bedpan he became unresponsive and code blue was called. Mr. Mata quickly regained consciousness and had no further neurologic events during his hospitalization. Mr. Mata had his first outpatient HD treatment at [facility] 11/21/19 without complication. This morning he presented for his routine TTS treatment. 3 hours into his treatment he was noted to be unresponsive. staff command and control officer reports that SBP was ~ 160 mm Hg. Saline was administered and he regained consciousness. A few minutes later Mr. Mata had a second episode. He was evaluated by Dr. Maxwell and noted to be unresponsive but hemodynamically stable. He was witnessed to have mild dystonia or twitching of his extremities. Dialysis was held, patient again recovered consciousness and was transferred to ED for evaluation. Note that no significant UF was obtained during treatment. In ED telemetry reveals NSR, troponin is mildly elevated, SaO2 is 94% on 1L/min NC, CXR mild pulmonary congestion. Mr. Mata is being admitted to a telemetry bed. 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 Allergies Allergy/AdvReac Type Severity Reaction Status Date / Time adhesive Allergy Unknown BLISTERING Verified 11/24/19 10:07 OF SKIN latex Allergy Rash Verified 11/24/19 10:07 Home Medications Home Medications Medication Instructions Recorded Confirmed Type phenytoin sodium extended 100 mg 100 mg PO BID #180 cap 02/24/19 11/24/19 Rx capsule atorvastatin 80 mg tablet 80 mg PO DAILY #90 tab 03/11/19 11/24/19 Rx clopidogrel 75 mg tablet 75 mg PO DAILY #90 tab 03/11/19 11/24/19 Rx nitroglycerin 0.4 mg sublingual 0.4 mg SL .PRN/UD PRN #25 tab 03/11/19 11/24/19 History tablet metoprolol tartrate 50 mg tablet 50 mg PO BID #180 tab 03/30/19 11/24/19 Rx citalopram 10 mg tablet 10 mg PO DAILY #30 tab 07/08/19 11/24/19 Rx amlodipine 10 mg tablet 10 mg PO DAILY #90 tab 07/28/19 11/24/19 Rx calcitriol 0.25 mcg PO 3XWK 10/14/19 11/24/19 History ranitidine HCl 150 mg tablet 150 mg PO BID #180 tab 11/10/19 11/24/19 Rx isosorbide mononitrate 60 mg 60 mg PO DAILY #30 tab 11/11/19 11/24/19 Rx tablet,extended release 24 hr witch balta 50 % topical pads 1 pad TOP BID #100 ea 11/16/19 11/24/19 Rx docusate sodium [Stool Softener] 100 mg PO DAILY 11/17/19 11/24/19 History B complex with C 20-folic acid 1 cap PO QAM #30 cap 11/20/19 11/24/19 Rx [Renal Caps] sevelamer HCl [Renagel] 800 mg PO BID@1130,1700 #60 tab 11/20/19 11/24/19 Rx Patient History Medical History Arteriosclerotic cardiovascular disease (Acute) Benign prostatic hyperplasia (Acute) Cerebral artery occlusion with cerebral infarction (Acute) Congestive heart failure (CHF) (Acute) Diabetes mellitus with circulatory complication (Chronic) Diabetic peripheral neuropathy (Acute) Esophageal reflux (Acute) H/O tobacco use, presenting hazards to health (Acute) Hemiparesis (Acute) Hyperlipidemia (Chronic) Mitral regurgitation (Acute) Nausea, vomiting, and diarrhea (Inactive) Seizure disorder (Chronic) SNHL (sensorineural hearing loss) (Acute) Stroke syndrome (Acute) 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 (Acute) Type 2 DM with CKD stage 3 and hypertension Surgical History History of aorto-femoral bypass History of bypass graft (non vein) Aortic-femoral or bifemoral History of esophagogastroduodenoscopy (EGD) Family History Brother Hypertension Hypercholesteremia Sister Diabetes Unknown Hypertension Cardiac disorder Social History Preferred Language: Malian Communication Ability: Impaired Communication Ability Comment: can speak few words son says sometimes speaks sentences Natural Gas Inspector Required: No Beliefs That Will Affect Care: None marital status: Current Living Situation: Spouse Current Living Situation Comment: In apartment per . Other Information That Helps Us Care for You: No Feels Safe at Home: Yes Safety Concerns: Feels Safe At This Time Smoking Status: Former smoker Tobacco Type: cigarettes ; Cigarettes Per Day: Quit about 10 years ago. 2 packs per day for 40 years. ; Second Hand Exposure: No ; Hx Alcohol Use: No Hx Substance Use: No caffeine: No Seatbelt Use: always Review of Systems Review of Systems: Unobtainable due to cognitive status Physical Exam Constitutional: + frail appearing; not in distress Eyes: PERRL, conjunctivae normal, anicteric sclerae ENMT: external ear and nose normal, oropharynx normal Neck: trachea midline, no thyromegaly + bilateral carotid artery bruit R IJ THC with clean dry dressing in place Respiratory: normal respiratory effort, lungs clear to auscultation Cardiovascular: Rate/Rhythm: regular rate and regular rhythm Heart Sounds: + murmur Gastrointestinal (Abdomen): normal bowel sounds, soft, nontender, no hepatosplenomegaly Musculoskeletal: Extremities: no cyanosis Skin: no rashes, warm and dry Neurologic: awake Cranial Nerves: PERRL expressive aphasia Results & Data Vital Signs (Past 12 Hours) Vital Signs Temp Pulse Pulse Resp BP BP Pulse Ox 11/24/19 13:45 69 16 125/85 11/24/19 12:30 68 16 144/89 H 11/24/19 11:07 78 16 155/86 H 11/24/19 09:59 89 L 11/24/19 09:49 36.7 C 76 20 164/91 H 88 L Laboratory Results Laboratory Tests 11/24/19 11/24/19 09:50 09:50 WBC 10.31 Hgb 9.9 L Hct 31.0 L Plt Count 210 Sodium 138 Potassium 4.5 Chloride 101 Carbon Dioxide 32 BUN 18 Creatinine 2.10 H Glucose 98 Troponin I 0.144 H* TSH 1.900 Diagnostic Findings CXR: mild pulmonary congestion. No infiltrate PG Care Time/CCT Total # of Minutes Spent Total Time Spent with Patient: Total time spent is greater than 50% in coordination of care (as documented) at patient's floor/unit and/or counseling patient: Coding Level of Care Code 96753 Inpt Consult Level 5 Diagnoses ESRD on hemodialysis N18.6; Z99.2 Syncope R55 Syncope type: unspecified Hemorrhoids, thrombosed K64.5 (1) Syncope Syncope type: unspecified Qualified Code(s): R55 - Syncope and collapse
[2019-11-24] MEDS ORDERED: NITROGLYCERIN SL 0.4 MG/TAB TAB SL PRN (15:00)
[2019-11-24] MEDS ORDERED: GLUCOSE 10 TABS/TUBE PO PRN (15:00)
[2019-11-24] MEDS ORDERED: DEXTROSE 50% 50 ML SYRINGE IV PRN (15:00)
[2019-11-24] MEDS ORDERED: GLUCAGON FOR INJ 1 MG VIAL SQ PRN (15:00)
[2019-11-24] MEDS ORDERED: CARBOHYDRATES FOR HYPOGLYCEMIA PO PRN (15:00)
[2019-11-24] MEDS ORDERED: GLUCOSE 40% GEL 15 GM TUBE PO PRN (15:00)
--- NOTE | 2019-11-24 15:27 | Electrocardiogram Report ---
Test Reason : Blood Pressure : / mmHG Vent. Rate : 081 BPM Atrial Rate : 093 BPM P-R Int : 196 ms QRS Dur : 094 ms QT Int : 474 ms P-R-T Axes : 070 038 067 degrees QTc Int : 550 ms Sinus rhythm with frequent and repetitive Premature ventricular complexes Possible Left atrial enlargement Inferior-posterior infarct , age undetermined Prolonged QT Abnormal ECG Confirmed by Oli Holguin ([id number]) on 11/24/2019 3:26:54 PM Referred By: ER Confirmed By:Oli Holguin
--- NOTE | 2019-11-24 15:47 | XRay Report ---
KUB HISTORY: Acute abdominal pain with constipation eval for stool burden COMPARISON: CT abdomen and pelvis 11/09/2019 FINDINGS: The bowel gas pattern is non-obstructive. There is mild to moderate fecal retention, most p ronounced within the right hemicolon. Left renal artery stent. Renal vascular calcifications are note d bilaterally. Surgical clips of the bilateral inguinal distributions. There is no organomegaly. No renal calculi. No ureteral calculi. No pneumoperitoneum or pneumatosis. No fracture. IMPRESSION: 1. Nonobstructive bowel gas pattern. 2. Mild to moderate fecal retention, most pronounced in the ascending colon.. ACT 112: Negative or not required by law. The above report was generated using voice recognition software. It may contain grammatical, syntax o r spelling errors. Electronically signed by: Romel May M.D. 11/24/2019 3:46 PM
--- NOTE | 2019-11-24 15:49 | Surgery Consultation ---
Date of Consultation November 24, 2019 Assessment & Plan (1) Hemorrhoid: This is a 74y M with a PMH of CVA, PAD, CABG, DM2, seizure disorder, and ESRD recently new to dialysis who presents to the [facility] ED today after a syncopal episode at his outpatient dialysis center. Family concerned that the past two syncopal episodes were related to patient straining to have a bowel movement and are worried about his hemorrhoid. On examination hemorrhoid is soft and fleshy in appearance with a central opening w some blood noted... could have possibly drained on it's own? Does not seem to be acutely tender to palpation. Hbg 9.9, stable comparing to his recent admission. In regards to his syncopal episodes they could possibly be vaso-vagal in nature. Patient has a history of extensive vascular disease and agree with obtaining b/l carotid US and further workup. In regards to his hemorrhoid would continue supportive care for now, maintaining adequate hydration, fiber, and start a bowel regimen to try and limit him from straining. KUB has been obtained and is pending. History of Present Illness Attending Physician: Kika Hardy MD History of Present Illness This is a 74y M with a PMH of CVA, PAD, CABG, DM2, seizure disorder, and ESRD recently new to dialysis who presents to the [facility] ED today after a syncopal episode at his dialysis center. Patient is a poor historian and majority of history obtained from , son, and RN. Of note, the patient was recently admitted here about 1 wk ago where he underwent perma-cath placement with vascular to start HD. While admitted, during his initial HD session patient apparently was found straining on the bed villafana to have a bowel movement and he passed out. He came too on his own without intervention. Today family reports patient was at his outpatient HD session and again was found to be straining to have a bowel movement and passed out, prompting him to be transferred to the ED for further workup. reports patient has had a hemorrhoid over the past wk that has been intermittently bleeding. She took him to his PCP where he was prescribed tuck's pads. She says he does take stool softeners at home, his last BM was yesterday. Family reports patient does strain often and when he does he grimaces and complains of pain. Patient says it does hurt when he tries to have a BM. believes the bloody drainage was less today than normal. Family concerned patient's straining and hemorrhoids are contributing to his passing out and surgery was consulted for evaluation. Allergies Allergy/AdvReac Type Severity Reaction Status Date / Time adhesive Allergy Unknown BLISTERING Verified 11/24/19 10:07 OF SKIN latex Allergy Rash Verified 11/24/19 10:07 Home Medications Home Medications Medication Instructions Recorded Confirmed Type phenytoin sodium extended 100 mg 100 mg PO BID #180 cap 02/24/19 11/24/19 Rx capsule atorvastatin 80 mg tablet 80 mg PO DAILY #90 tab 03/11/19 11/24/19 Rx clopidogrel 75 mg tablet 75 mg PO DAILY #90 tab 03/11/19 11/24/19 Rx nitroglycerin 0.4 mg sublingual 0.4 mg SL .PRN/UD PRN #25 tab 03/11/19 11/24/19 History tablet metoprolol tartrate 50 mg tablet 50 mg PO BID #180 tab 03/30/19 11/24/19 Rx citalopram 10 mg tablet 10 mg PO DAILY #30 tab 07/08/19 11/24/19 Rx amlodipine 10 mg tablet 10 mg PO DAILY #90 tab 07/28/19 11/24/19 Rx calcitriol 0.25 mcg PO 3XWK 10/14/19 11/24/19 History ranitidine HCl 150 mg tablet 150 mg PO BID #180 tab 11/10/19 11/24/19 Rx isosorbide mononitrate 60 mg 60 mg PO DAILY #30 tab 11/11/19 11/24/19 Rx tablet,extended release 24 hr witch balta 50 % topical pads 1 pad TOP BID #100 ea 11/16/19 11/24/19 Rx docusate sodium [Stool Softener] 100 mg PO DAILY 11/17/19 11/24/19 History B complex with C 20-folic acid 1 cap PO QAM #30 cap 11/20/19 11/24/19 Rx [Renal Caps] sevelamer HCl [Renagel] 800 mg PO BID@1130,1700 #60 tab 11/20/19 11/24/19 Rx Patient History Medical History Arteriosclerotic cardiovascular disease (Acute) Benign prostatic hyperplasia (Acute) Cerebral artery occlusion with cerebral infarction (Acute) Congestive heart failure (CHF) (Acute) Diabetes mellitus with circulatory complication (Chronic) Diabetic peripheral neuropathy (Acute) Esophageal reflux (Acute) H/O tobacco use, presenting hazards to health (Acute) Hemiparesis (Acute) Hyperlipidemia (Chronic) Mitral regurgitation (Acute) Nausea, vomiting, and diarrhea (Inactive) Seizure disorder (Chronic) SNHL (sensorineural hearing loss) (Acute) Stroke syndrome (Acute) 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 (Acute) Type 2 DM with CKD stage 3 and hypertension Surgical History History of aorto-femoral bypass History of bypass graft (non vein) Aortic-femoral or bifemoral History of esophagogastroduodenoscopy (EGD) Family History Brother Hypertension Hypercholesteremia Sister Diabetes Unknown Hypertension Cardiac disorder Social History Preferred Language: Romanian Communication Ability: Impaired Communication Ability Comment: can speak few words son says sometimes speaks sentences Referral Manager Required: No Beliefs That Will Affect Care: None marital status: Current Living Situation: Spouse Current Living Situation Comment: In apartment per . Other Information That Helps Us Care for You: No Feels Safe at Home: Yes Safety Concerns: Feels Safe At This Time Smoking Status: Former smoker Tobacco Type: cigarettes ; Cigarettes Per Day: Quit about 10 years ago. 2 packs per day for 40 years. ; Second Hand Exposure: No ; Hx Alcohol Use: No Hx Substance Use: No caffeine: No Seatbelt Use: always Review of Systems Gastrointestinal: + blood in stools; no nausea and no vomiting painful when straining to have a BM Physical Exam Physical Exam: awake Respiratory: normal respiratory effort Gastrointestinal (Abdomen): + hemorrhoid located 3oclock, fleshy in appearance, with central opening with small bloody drainage. pt does not flinch when palpated, but when asked says it hurts Results & Data Vital Signs (Past 12 Hours) Vital Signs Temp Pulse Pulse Resp BP BP Pulse Ox 11/24/19 15:00 36.9 C 76 16 165/92 H 99 11/24/19 13:45 69 16 125/85 11/24/19 12:30 68 16 144/89 H 11/24/19 11:07 78 16 155/86 H 11/24/19 09:59 89 L 11/24/19 09:49 36.7 C 76 20 164/91 H 88 L PG Care Time/CCT Total # of Minutes Spent Total Time Spent with Patient: Total time spent is greater than 50% in coordination of care (as documented) at patient's floor/unit and/or counseling patient: Coding Level of Care Code 25167 Initial Inpt Care Lvl 1 Diagnoses Hemorrhoid K64.9
[2019-11-24] MEDS: LAVAGE SOLUTION 4000ML PO SCH ×2 (17:29→21:17)
[2019-11-24] MEDS: SEVELAMER HCL 800 MG TABLET PO SCH (17:30)
[2019-11-24] MEDS: INSULIN ASPART 100 UNITS/ML 3 ML PEN SC SCH ×2 (17:30→21:20)
--- NOTE | 2019-11-24 20:31 | Ultrasound Report ---
US carotid doppler BI CLINICAL HISTORY: 74 years-old Male presenting with syncope, bruit bilateral. TECHNIQUE: Real-time grayscale and color and spectral Doppler ultrasound imaging of the bilateral car otid arteries was performed. Stenosis measurements were based on NASCET-like criteria (distal lumen d iameter as the denominator for stenosis measurement). COMPARISON: None. FINDINGS: RIGHT: Common carotid artery (CCA): Atherosclerosis. Peak systolic velocity (PSV) 140 cm/s. Internal carotid artery (ICA): Atherosclerosis of the proximal ICA. PSV 111 cm/s. End diastolic veloc ity (EDV) 32 cm/s. ICA/CCA (systolic) ratio: 0.8. External carotid artery (ECA): Patent. PSV 103 cm/s. LEFT: CCA: Atherosclerosis. PSV 71 cm/s. ICA: Atherosclerosis of the proximal ICA. PSV 280 cm/s at the origin. EDV not well measured. ICA/CCA (systolic) ratio: 3.94. ECA: Patent. PSV 178 cm/s. Antegrade flow in the right vertebral artery. Reversal of flow in the left vertebral artery. Partiall y visualized left subclavian artery demonstrates atherosclerotic plaque without a focal hemodynamical ly significant stenosis. Blood pressure: Not recorded. Brachial: Right: mmHg, Left: mmHg. Reference ranges: Stenosis measurements are compared to reference velocity parameters by the Society of Radiologists in Ultrasound (SRU) consensus and Sonographic NASCET index (S-NASCET). * SRU Primary parameters: ICA PSV <125 cm/s = normal or less than 50% stenosis; ICA PSV 125-230 cm/s = 50-69% stenosis; ICA PSV >230 cm/s = greater than or equal to 70% stenosis. * SRU Additional parameters: ICA/CCA PSV ratio <2 = normal or less than 50% stenosis; ratio 2-4 = 5 0-69% stenosis; ratio >4 = greater than or equal to 70% stenosis. ICA EDV <40 cm/s = normal or less t horne 50% stenosis; ICA EDV 40-100 cm/s = 50-69% stenosis; ICA EDV >100 cm/s = greater than or equal to 70% stenosis. * S-NASCET parameters: Deceleration spectral broadening + PSV <125 cm/s = less than 50% stenosis; pa nsystolic spectral broadening + PSV <125 cm/s = 16-49% stenosis; pansystolic spectral broadening + PS V >125 cm/s + EDV <110 cm/s or ICA/CCA PSV ratio 2-4 = 50-69% stenosis; pansystolic spectral broadeni ng + PSV >270 cm/s OR EDV >110 cm/s OR ICA/CCA PSV ratio >4 = 70-79% stenosis; EDV >140 cm/s = 80-99% stenosis. IMPRESSION: 1. Hemodynamically significant stenosis of the origin of the left internal carotid artery (greater t horne or equal to 70% stenosis). 2. Reversal of flow in the left vertebral artery without a demonstrable proximal left subclavian art kellen stenosis. Consider CTA neck for further assessment. ACT 112: Negative or not required by law. Electronically signed by: David Galdamez M.D. 11/24/2019 8:30 PM
[2019-11-24] MEDS: HEPARIN SOD 5,000 UNIT/0.5 ML VIAL SQ SCH (21:16)
[2019-11-24] MEDS: PHENYTOIN SODIUM ER 100 MG CAP PO SCH (21:16)
[2019-11-24] MEDS: METOPROLOL TARTRATE 50 MG TAB PO SCH (21:17)
[2019-11-24] MEDS ORDERED: DOCUSATE SODIUM/SENNA 50/8.6MG TAB PO STA (22:27)
[2019-11-24] MEDS: WITCH HAZEL/GLYCERIN 40 PADS/JAR (TUCKS) EXT SCH (23:00)
[2019-11-25 07:23] LABS: Hematocrit (blood only) 28.8 % (42-52); Hemoglobin 9.1 g/dL (14.0-18.0); Mean Corpuscular Hemoglobin 32.9 pg (25-34); Mean Corpuscular Hgb Conc 31.6 g/dL (32-36); Mean Platelet Volume 9.6 fL (7.4-10.4); Platelet Count 210 K/uL (130-400); RDW Coefficient of Variation 15.1 % (11.5-14.5); RDW Standard Deviation 58.1 fL (36.4-46.3); Red Blood Count 2.77 M/uL (4.7-6.1); White Blood Count 8.15 K/uL (4.8-10.8)
[2019-11-25 08:02] LABS: Albumin Level 2.3 gm/dl (3.4-5.0); BUN Creatinine Ratio 9.4 (10-20); Calcium 8.4 mg/dl (8.5-10.1); Creatinine Clr Calc Pharmacy 15.3 ml/min; Est GFR (Non-African American) 15.5; Magnesium 1.9 mg/dl (1.8-2.4); Potassium 4.6 mmol/L (3.5-5.1)
[2019-11-25 08:05] LABS: Albumin Globulin Ratio 0.6 (0.9-2); Bilirubin,Total 0.4 mg/dl (0.2-1); Globulin 4.1 gm/dl (2.5-4.0); Phosphorus 3.2 mg/dl (2.5-4.9); Total Protein 6.4 gm/dl (6.4-8.2)
[2019-11-25] MEDS: ATORVASTATIN 40 MG TAB PO SCH (08:53)
[2019-11-25] MEDS: ISOSORBIDE MONO EXTENDED REL 60 MG TABCR PO SCH (08:53)
[2019-11-25] MEDS: AMLODIPINE BESYLATE 5 MG TAB PO SCH (08:53)
[2019-11-25] MEDS: DOCUSATE SODIUM 100 MG CAP PO SCH (08:54)
[2019-11-25] MEDS: FAMOTIDINE 20 MG TAB PO SCH (08:54)
[2019-11-25] MEDS: CITALOPRAM 20 MG TAB PO SCH (08:54)
[2019-11-25] MEDS: NEPHROCAPS PO SCH (08:54)
[2019-11-25] MEDS: CLOPIDOGREL BISULFATE 75 MG TAB PO SCH (08:54)
[2019-11-25] MEDS: HEPARIN SOD 5,000 UNIT/0.5 ML VIAL SQ SCH ×2 (08:55→21:04)
[2019-11-25] MEDS: WITCH HAZEL/GLYCERIN 40 PADS/JAR (TUCKS) EXT SCH ×2 (08:55→21:05)
[2019-11-25] MEDS: INSULIN ASPART 100 UNITS/ML 3 ML PEN SC SCH ×4 (08:55→21:04)
[2019-11-25] MEDS: PHENYTOIN SODIUM ER 100 MG CAP PO SCH ×2 (08:55→21:04)
[2019-11-25] MEDS ORDERED: CALCITRIOL 0.25 MCG CAPSULE PO SCH (09:00)
--- NOTE | 2019-11-25 09:05 | Nephrology Progress Note ---
Date of Service November 25, 2019 Assessment & Plan (1) ESRD on hemodialysis: -- Volume status & electrolyte balance are acceptable. No acute indication for HD today -- Will schedule next HD for am. Will limit treatment to 3 hrs, 1L UF, low dose heparin -- Recheck PRP, volume status in am (2) Syncope: -- Tele w/ NSR and occasional PAC. Possible brief episode of 2nd degree block overnight. Await Cardiology input -- Recommend echocardiogram -- Carotid doppler w/ > 70% L ICA stenosis -- Symptoms at dialysis were similar to previous seizure activity. Question need for additional Dilantin dosing following dialysis. Await Dilantin level and Neurology recommendations (3) Hemorrhoids, thrombosed: -- KUB reveals moderate fecal retention in ascending colon -- General surgery recommends conservative management of hemorrhoid Subjective Mr. Mata was seen & examined in his hospital room this morning. staff scientist reports an brief episode of 2nd degree heart block overnight. Otherwise NSR w/ occasional PAC. Mr. Mata awakens to voice and will follow simple commands. He voices no medical concerns. His relates that he had a seizure following his stroke this presented as eyes rolled back, unresponsive w/ twitching of limbs. He was placed on Dilantin but has not had regular follow up with Neurology. Review of Systems Constitutional: + weakness; no fever Eyes: no worsening vision and no problem reported Ear, Nose, Mouth, Throat: no problem reported Respiratory: no cough and no dyspnea Cardiovascular: no chest pain, no palpitations and no edema Gastrointestinal: no abdominal pain, no nausea, no vomiting and no diarrhea/loose stools Genitourinary: no dysuria Musculoskeletal: no back pain Integumentary: no rash Neurologic: no falls Physical Exam Constitutional: + frail appearing; not in distress Eyes: PERRL, conjunctivae normal, anicteric sclerae ENMT: external ear and nose normal, oropharynx normal Neck: trachea midline, no thyromegaly Respiratory: normal respiratory effort, lungs clear to auscultation Cardiovascular: Rate/Rhythm: regular rate and regular rhythm Heart Sounds: + murmur Gastrointestinal (Abdomen): normal bowel sounds, soft, nontender, no hepatosplenomegaly Musculoskeletal: Extremities: no cyanosis Skin: no rashes, warm and dry Neurologic: awake Cranial Nerves: PERRL Results & Data Vital Signs (Past 12 Hours) Vital Signs Temp Pulse Pulse Resp BP Pulse Ox 03/11/20 07:47 36.9 C 66 16 142/89 H 100 11/25/19 03:19 37.0 C 83 18 157/95 H 96 11/25/19 00:04 79 11/24/19 23:59 36.9 C 75 18 138/91 92 Laboratory Results Laboratory Tests 11/25/19 11/25/19 07:04 07:04 WBC 8.15 Hgb 9.1 L Hct 28.8 L Plt Count 210 Sodium 135 L Potassium 4.6 Chloride 98 Carbon Dioxide 30 BUN 34 H D Creatinine 3.63 H D Glucose 131 H PG Care Time/CCT Total # of Minutes Spent Total Time Spent with Patient: Total time spent is greater than 50% in coordination of care (as documented) at patient's floor/unit and/or counseling patient: Coding Level of Care Code 79295 Subseq Hosp Care Lvl 3 Diagnoses ESRD on hemodialysis N18.6; Z99.2 Syncope R55 Syncope type: unspecified Hemorrhoids, thrombosed K64.5 (1) Syncope Syncope type: unspecified Qualified Code(s): R55 - Syncope and collapse
[2019-11-25] MEDS: METOPROLOL TARTRATE 50 MG TAB PO SCH (09:07)
[2019-11-25] MEDS ORDERED: bisacodyL 5 MG TABEC PO ONE ×2 (09:44→12:18)
[2019-11-25] MEDS ORDERED: LACTULOSE SYRUP 20 GM/30 ML UDC PO ONE (10:00)
[2019-11-25] MEDS ORDERED: HYDROCORTISONE HC 2.5% CRM 30GM TUBE EXT PRN (11:25)
--- NOTE | 2019-11-25 11:28 | Surgery Progress Note ---
Date of Service November 25, 2019 Assessment & Plan (1) Thrombosed external hemorrhoid: Clinically much improved. We will add some hydrocortisone cream. No indication for surgical intervention at this time. Recommend a colonic regimen to include plenty of water fiber stool softeners and possibly mild laxative. Hemorrhoid likely from straining due to constipation. We will sign off. Please call if needed Subjective pt seen. at bedside. per her pain at hemorrhoid site improved. Physical Exam Physical Exam: alert. but disoriented +external thrombosed hemorroid that self ruptured. much small per . no longer tender. Results & Data Vital Signs (Past 12 Hours) Vital Signs Temp Pulse Pulse Resp BP Pulse Ox 11/25/19 08:30 95 11/25/19 07:47 36.9 C 66 16 142/89 H 100 11/25/19 03:19 37.0 C 83 18 157/95 H 96 11/25/19 00:04 79 11/24/19 23:59 36.9 C 75 18 138/91 92 PG Care Time/CCT Total # of Minutes Spent Total Time Spent with Patient: Total time spent is greater than 50% in coordination of care (as documented) at patient's floor/unit and/or counseling patient: Coding Level of Care Code 01282 Subseq Hosp Care Lvl 2 Diagnoses Thrombosed external hemorrhoid K64.5
[2019-11-25] MEDS: SEVELAMER HCL 800 MG TABLET PO SCH ×2 (12:15→16:44)
--- NOTE | 2019-11-25 12:33 | Hospitalist Progress Note ---
Date of Service November 25, 2019 Assessment & Plan (1) Syncope: - Likely related to vasovagal episode in setting of severe constipation vs. carotid artery stenosis. - Did have code blue episode on 11/16 for constipation with straining during HD session. - EKG with NSR, nonspecific ST wave changes - similar to last admission. Trop is elevated, likely c/w ESRD. - 2nd degree AV block on tele overnight -- cardiology consulted. - Carotid doppler with >70% left ICA stenosis -- cardio consulted, h/o intervention for previous stenosis. - Neuro consulted to evaluate for seizure activity; Dilantin level pending. - PT/OT evaluation for discharge planning. (2) Carotid artery stenosis: - L carotid artery stenosis possibly leading to syncope. - Carotid doppler with >70% left ICA stenosis. H/o bilateral carotid endarterectomies. - Continue Plavix/statin as prescribed. - Cardiology following. (3) Hypoxia: - Currently requiring 2L via NC -- possibly related to pulm edema. - CXR did show mild congestion. - Hold IV fluids and wean oxygen as tolerated; consider Lasix dose if necessary. (4) Second degree AV block, Mobitz type I: - Noted on telemetry overnight and EKG. - Cardiology consulted, will decrease Metoprolol to 25 mg BID. - Continue to monitor on tele over next 24-48 hours. (5) Elevated troponin: - Trop peaked at 0.490, now trending down. - EKG similar to previous admissions. - Cardiology following. (6) Constipation: - Severe constipation at home -- KUB showed mild to moderate stool burden. - Did not tolerate Go-lytely prep --> will give Lactulose 20 gm and Dulcolax 5 mg PO daily. (7) Hemorrhoids, thrombosed: - In setting of severe constipation. - Gen surg consulted, recommended bowel regimen and hydrocortisone cream prn. (8) Elevated transaminase level: - Now improving, monitor CMP daily. (9) Prolonged QT interval: - QTc 550 on admission. Avoid QT prolonging agents. - QTc improved to 480 this morning. (10) Renal artery stenosis: - Follows closely with nephrology. - S/p left renal artery stenting on Sep 18, 2019. (11) End stage renal disease: - Nephro consulted, permacath placed on 11/17/19. - Continue HD per nephro -- receives HD qTues/Thurs/Sat. - Continue home renal meds. (12) Hyperlipidemia: - Continue statin as prescribed. (13) Hypertension: - Continue Amlodipine, Imdur, Metoprolol as prescribed. (14) CAD (coronary artery disease): - Echo on 11/17/19 showed EF 50-55%, hypokinesis of inferoposterior wall. - Continue home statin, plavix, imdur, metoprolol, amlodipine as prescribed. - S/p CABG, cardiology consulted. (15) Peripheral artery disease: - Continue plavix/statin as prescribed. (16) Diabetes mellitus: - Hgb A1C 5.4. - SSI coverage. (17) History of CVA (cerebrovascular accident): - Residual right foot drop and generalized lower extremity + right upper extremity weakness, mild expressive aphasia. - Neuro consulted for input. (18) Macrocytic anemia: - History of same. Monitor H/H closely due to hemorrhoidal bleeding. - Folate level 12, B12 720. (19) Seizure disorder: - Continue home Dilantin. - ?Seizure activity during HD -- Dilantin level pending. - Neuro consult pending. (20) GERD (gastroesophageal reflux disease): - Famotidine. DVT ppx: Heparin. Dispo: PCU tele -- PT/OT evaluation pending. Wean oxygen as tolerated. Admission and Anticipated Discharge Date Admission Date: November 24, 2019 Supervising Physician Co-Signing Physician Notes Attending Attestation - Chart reviewed in detail, care plan d/w NAN Mccormick. I agree w/ the grande components of her documentation. Complicated 74yo male with syncopal episode. Either vasovagal vs dialysis disequilibrium syndrome as culprit. Recently initiated on HD for ESRD. Appreciate cardiology/neurology/nephrology consults. Has thrombosed hemorrhoid - surgery has seen; topical HC for now. Vitals remain stable since admission. Jarrod Jones MD Subjective Pt. cannot complete full conversation during rounds -- his family reports this is his baseline. He did not drink go-lytely overnight, does not like taste of medication. Will give Lactulose and Dulcolax to promote BM. PT/OT ordered per family request. Has not had any further episodes of syncope since admission. Review of Systems Review of Systems: Unobtainable due to cognitive status Physical Exam Physical Exam: General: Resting comfortably HEENT: NC/AT; PERRLA with EOMI; [place] conjunctiva, MMM. No erythema of posterior pharynx Neck: Supple and nontender Cardiac: RRR Lungs: CTA bilaterally Abdomen: Bowel normoactive X 4; Nontender to palpation Extremities: Warm. No edema present Neuro: No focal weakness; smiles and nods head but cannot complete full conversation. Skin: No rash Results & Data ([facility]) Vital Signs (Past 12 Hours) Vital Signs Temp Pulse Resp BP Pulse Ox 11/25/19 08:30 95 11/25/19 07:47 36.9 C 66 16 142/89 H 100 11/25/19 03:19 37.0 C 83 18 157/95 H 96 Laboratory Results 11/25/19 11/25/19 11/25/19 Range/Units 11:46 08:46 07:52 WBC (4.8-10.8) K/uL RBC (4.7-6.1) M/uL Hgb (14.0-18.0) g/dL Hct (42-52) % MCV (80-100) fL MCH (25-34) pg MCHC (32-36) g/dL RDW Std Deviation (36.4-46.3) fL RDW Coeff of Shayy (11.5-14.5) % Plt Count (130-400) K/uL MPV (7.4-10.4) fL Sodium (136-145) mmol/L Potassium (3.5-5.1) mmol/L Chloride (98-107) mmol/L Carbon Dioxide (21-32) mmol/L Anion Gap (3-11) BUN (7-18) mg/dl Creatinine (0.6-1.4) mg/dl Est Cr Clr Drug Dosing ml/min Est GFR ( Amer) Est GFR (Non-Af Amer) BUN/Creatinine Ratio (10-20) Glucose (70-99) mg/dl POC Glucose 201 H 129 H (70-99) mg/dl Calcium (8.5-10.1) mg/dl Phosphorus (2.5-4.9) mg/dl Magnesium (1.8-2.4) mg/dl Total Bilirubin (0.2-1) mg/dl AST (15-37) U/L ALT (12-78) U/L Alkaline Phosphatase (45-117) U/L Troponin I (0-0.045) ng/ml Total Protein (6.4-8.2) gm/dl Albumin (3.4-5.0) gm/dl Globulin (2.5-4.0) gm/dl Albumin/Globulin Ratio (0.9-2) Phenytoin 4.5 L (10-20) mcg/ml 11/25/19 11/25/19 11/25/19 Range/Units 07:04 07:04 07:04 WBC 8.15 (4.8-10.8) K/uL RBC 2.77 L (4.7-6.1) M/uL Hgb 9.1 L (14.0-18.0) g/dL Hct 28.8 L (42-52) % MCV 104.0 H (80-100) fL MCH 32.9 (25-34) pg MCHC 31.6 L (32-36) g/dL RDW Std Deviation 58.1 H (36.4-46.3) fL RDW Coeff of Shayy 15.1 H (11.5-14.5) % Plt Count 210 (130-400) K/uL MPV 9.6 (7.4-10.4) fL Sodium 135 L (136-145) mmol/L Potassium 4.6 (3.5-5.1) mmol/L Chloride 98 (98-107) mmol/L Carbon Dioxide 30 (21-32) mmol/L Anion Gap 6.0 (3-11) BUN 34 H D (7-18) mg/dl Creatinine 3.63 H D (0.6-1.4) mg/dl Est Cr Clr Drug Dosing 15.3 ml/min Est GFR ( Amer) 18.0 Est GFR (Non-Af Amer) 15.5 BUN/Creatinine Ratio 9.4 L (10-20) Glucose 131 H (70-99) mg/dl POC Glucose (70-99) mg/dl Calcium 8.4 L (8.5-10.1) mg/dl Phosphorus 3.2 (2.5-4.9) mg/dl Magnesium 1.9 (1.8-2.4) mg/dl Total Bilirubin 0.4 (0.2-1) mg/dl AST 116 H (15-37) U/L ALT 82 H (12-78) U/L Alkaline Phosphatase 71 (45-117) U/L Troponin I 0.459 H* (0-0.045) ng/ml Total Protein 6.4 (6.4-8.2) gm/dl Albumin 2.3 L (3.4-5.0) gm/dl Globulin 4.1 H (2.5-4.0) gm/dl Albumin/Globulin Ratio 0.6 L (0.9-2) Phenytoin (10-20) mcg/ml 11/24/19 11/24/19 11/24/19 Range/Units 21:19 15:55 15:53 WBC (4.8-10.8) K/uL RBC (4.7-6.1) M/uL Hgb (14.0-18.0) g/dL Hct (42-52) % MCV (80-100) fL MCH (25-34) pg MCHC (32-36) g/dL RDW Std Deviation (36.4-46.3) fL RDW Coeff of Shayy (11.5-14.5) % Plt Count (130-400) K/uL MPV (7.4-10.4) fL Sodium (136-145) mmol/L Potassium (3.5-5.1) mmol/L Chloride (98-107) mmol/L Carbon Dioxide (21-32) mmol/L Anion Gap (3-11) BUN (7-18) mg/dl Creatinine (0.6-1.4) mg/dl Est Cr Clr Drug Dosing ml/min Est GFR ( Amer) Est GFR (Non-Af Amer) BUN/Creatinine Ratio (10-20) Glucose (70-99) mg/dl POC Glucose 164 H 137 H (70-99) mg/dl Calcium (8.5-10.1) mg/dl Phosphorus (2.5-4.9) mg/dl Magnesium (1.8-2.4) mg/dl Total Bilirubin (0.2-1) mg/dl AST (15-37) U/L ALT (12-78) U/L Alkaline Phosphatase (45-117) U/L Troponin I 0.490 H* (0-0.045) ng/ml Total Protein (6.4-8.2) gm/dl Albumin (3.4-5.0) gm/dl Globulin (2.5-4.0) gm/dl Albumin/Globulin Ratio (0.9-2) Phenytoin (10-20) mcg/ml PG Care Time/CCT Total # of Minutes Spent Total Time Spent with Patient: Total time spent is greater than 50% in coordination of care (as documented) at patient's floor/unit and/or counseling patient: Coding Level of Care Code 28860 Subseq Hosp Care Lvl 3 Diagnoses Syncope R55 Syncope type: unspecified Carotid artery stenosis I65.29 Hypoxia R09.02 Second degree AV block, Mobitz type I I44.1 Elevated troponin R79.89 Constipation K59.04 Constipation type: chronic idiopathic constipation Hemorrhoids, thrombosed K64.5 Elevated transaminase level R74.0 Prolonged QT interval R94.31 Renal artery stenosis I70.1 End stage renal disease N18.6 Hyperlipidemia E78.5 Hypertension I10 CAD (coronary artery disease) I25.10 Peripheral artery disease I73.9 Diabetes mellitus E11.9 History of CVA (cerebrovascular accident) Z86.73 Macrocytic anemia D53.9 Seizure disorder G40.909 GERD (gastroesophageal reflux disease) K21.9 (1) Syncope Syncope type: unspecified Qualified Code(s): R55 - Syncope and collapse (2) Constipation Constipation type: chronic idiopathic constipation Qualified Code(s): K59.04 - Chronic idiopathic constipation
--- NOTE | 2019-11-25 13:05 | Cardiology Consultation ---
Date of Consultation November 25, 2019 Assessment & Plan (1) Syncope: Patient with 2 syncopal episodes, both associated with bowel movements. His carotid stenosis is not new and is unlikely to have played any role in this recent event (left carotid reocclusion noted in neurology notes from 2010). No chest pain or acute ECG ischemic changes. Etiology most likely vasovagal. Would recommend reducing or eliminating beta-amrit to increase his hemodynamic reserve and decrease susceptibility to recurrent vasovagal episodes. Initially, could decrease from metoprolol tartrate 50 mg twice daily to 25 mg twice daily. Defer to nephrology in regards to whether intensity of hemodialysis can be a djusted. Since there may have been a rectal pain component, any remedy to this through surgical or other local interventions might be beneficial. (2) Elevated troponin: Initial elevation with flattening of curve in the absence of chest pain or dynamic ECG changes is almost certainly supply/demand mismatch in this vasculopathic patient with known coronary artery disease who experienced a prolonged period of syncope felt to be vasovagal. No specific intervention or further ischemic work-up, as above would attempt to reduce his risk for recurrent vasovagal syncope. (3) Carotid artery stenosis: Review of records from show that this is a known pathology. Doubt there would be any role for intervention, but defer to neurology for full assessment. (4) CAD (coronary artery disease): Although he is high risk for cardiac events given his generalized vascular disease, he is status post remote CABG (2007) and he has preserved systolic function on his recent echocardiogram (EF 50-55%). As noted, current troponin elevation likely supply/demand mismatch rather than primary cardiac event. Conservative management warranted. (5) ESRD on hemodialysis: (6) History of CVA with residual deficit: History of Present Illness Reason for Consultation: Syncope/elevated troponin Requesting Physician: Kika Hardy MD Attending Physician: Jarrod Jones History of Present Illness 74-year-old man with complex medical history, including end-stage renal disease (started hemodialysis recently), coronary artery disease (status post CABG), cerebrovascular disease (status post CVA, current Doppler shows greater than 70% left internal carotid stenosis), and other medical problems, who was admitted 11/24/2019 after a syncopal episode during hemodialysis. He did have a prior syncopal episode when some lines were placed at the time he was initiating hemodialysis several weeks ago. The syncopal episode prompting admission occurring yesterday was in the context of the patient having undergone several hours of hemodialysis then feeling an urge to defecate. He has had difficulty with hemorrhoidal discomfort and some rectal bleeding, so may well have had pain at the time of his attempted bowel movement/syncopal episode. He subsequently regained consciousness, had no seizure-like activity or loss of bladder or bowel continence. He denies chest pain or dyspnea at any time and noted no palpitations. At the time of my evaluation this morning, he was comfortable and had no complaints. Allergies Allergy/AdvReac Type Severity Reaction Status Date / Time adhesive Allergy Unknown BLISTERING Verified 11/24/19 10:07 OF SKIN latex Allergy Rash Verified 11/24/19 10:07 Home Medications Home Medications Medication Instructions Recorded Confirmed Type phenytoin sodium extended 100 mg 100 mg PO BID #180 cap 02/24/19 11/24/19 Rx capsule atorvastatin 80 mg tablet 80 mg PO DAILY #90 tab 03/11/19 11/24/19 Rx clopidogrel 75 mg tablet 75 mg PO DAILY #90 tab 03/11/19 11/24/19 Rx nitroglycerin 0.4 mg sublingual 0.4 mg SL .PRN/UD PRN #25 tab 03/11/19 11/24/19 History tablet metoprolol tartrate 50 mg tablet 50 mg PO BID #180 tab 03/30/19 11/24/19 Rx citalopram 10 mg tablet 10 mg PO DAILY #30 tab 07/08/19 11/24/19 Rx amlodipine 10 mg tablet 10 mg PO DAILY #90 tab 07/28/19 11/24/19 Rx calcitriol 0.25 mcg PO 3XWK 10/14/19 11/24/19 History ranitidine HCl 150 mg tablet 150 mg PO BID #180 tab 11/10/19 11/24/19 Rx isosorbide mononitrate 60 mg 60 mg PO DAILY #30 tab 11/11/19 11/24/19 Rx tablet,extended release 24 hr witch balta 50 % topical pads 1 pad TOP BID #100 ea 11/16/19 11/24/19 Rx docusate sodium [Stool Softener] 100 mg PO DAILY 11/17/19 11/24/19 History B complex with C 20-folic acid 1 cap PO QAM #30 cap 11/20/19 11/24/19 Rx [Renal Caps] sevelamer HCl [Renagel] 800 mg PO BID@1130,1700 #60 tab 11/20/19 11/24/19 Rx Patient History Medical History Arteriosclerotic cardiovascular disease (Acute) Benign prostatic hyperplasia (Acute) Carotid artery stenosis (~2009) s/p remote R & L endarterectomies with L re-occlusion sometime before 2010 Cerebral artery occlusion with cerebral infarction (Acute) Congestive heart failure (CHF) (Acute) Diabetes mellitus with circulatory complication (Chronic) Diabetic peripheral neuropathy (Acute) Esophageal reflux (Acute) H/O tobacco use, presenting hazards to health (Acute) Hemiparesis (Acute) History of CVA with residual deficit (2009) Left MCA territory with right hemiparesis and global aphasia Hyperlipidemia (Chronic) Mitral regurgitation (Acute) Nausea, vomiting, and diarrhea (Inactive) Seizure disorder (Chronic) SNHL (sensorineural hearing loss) (Acute) Stroke syndrome (Acute) 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 Feels Safe at Home: Yes Smoking Status: Former smoker Tobacco Type: cigarettes ; Cigarettes Per Day: Quit about 10 years ago. 2 packs per day for 40 years. ; Second Hand Exposure: No ; Hx Alcohol Use: No Hx Substance Use: No caffeine: No Seatbelt Use: always Review of Systems Constitutional: + fatigue; no fever, no chills, no weight loss and no weight gain Eyes: no problem reported Ear, Nose, Mouth, Throat: no problem reported Respiratory: no cough and no dyspnea Cardiovascular: as per Subjective / HPI Gastrointestinal: + blood in stools; no abdominal pain and no change in stools Musculoskeletal: no myalgia Integumentary: no rash and no new lesions Neurologic: + syncope Expressive aphasia since his CVA Psychiatric: no problem reported Hematologic / Lymphatic: no easy bleeding and no easy bruising Physical Exam Physical Exam: Elderly white male in no distress. BP variable from low normal to mildly hypertensive. Pulse 62-86 bpm range. Skin: No generalized lesions or ecchymoses. HEENT: Unremarkable. Neck: No jugular venous distention. Carotids with bilateral bruits versus transmitted murmur. Lungs: Clear bilaterally. Cardiac: Regular rhythm with ectopy. 3/6 systolic ejection murmur at the base rating to the carotids and left sternal border, 3/6 apical holosystolic murmur. Intact aortic closure sound. No diastolic murmur. No gallop. Abdomen: Soft nontender. Nondistended. Extremities: No edema. Peripheral pulses diminished lower extremities. Fair capillary refill. Neurologic: Answers simple questions, history of right hemiparesis, detailed neuro exam not performed. Results & Data ([facility]) Vital Signs (Past 12 Hours) Vital Signs Temp Pulse Resp BP BP Pulse Ox 11/25/19 12:24 97.7 F 62 20 100/63 97 11/25/19 08:30 95 11/25/19 07:47 98.4 F 66 16 142/89 H 100 11/25/19 03:19 98.6 F 83 18 157/95 H 96 Laboratory Results 11/24/19 11/24/19 11/25/19 09:50 15:55 07:04 WBC 8.15 Hgb 9.1 L Troponin I 0.144 H* 0.490 H* 11/25/19 07:04 WBC Hgb Troponin I 0.459 H* Diagnostic Findings Initial ECG showed sinus rhythm with frequent and consecutive PVCs, age undetermined inferoposterior infarct. ECG today showed sinus rhythm with Mobitz type I second-degree AV block and inferoposterior infarct, likely old. Echocardiogram from 11/17/2019 showed EF 50-55% with hypokinesis of the proximal inferoposterior wall. Mild mitral and tricuspid regurgitation. Chest x-ray on admission showed cardiomegaly and emphysema with evidence of pulmonary vascular congestion and trace pleural effusions. Carotid Doppler from 11/24/2019 showed hemodynamically significant stenosis of the left internal carotid artery (greater than 70% stenosis) as well as flow reversal in the left vertebral artery. PG Care Time/CCT Total # of Minutes Spent Total Time Spent with Patient: Total time spent is greater than 50% in coordination of care (as documented) at patient's floor/unit and/or counseling patient: Coding Level of Care Code 12478 Initial Inpt Care Lvl 3 Diagnoses Syncope R55 Syncope type: unspecified Elevated troponin R79.89 Carotid artery stenosis I65.29 CAD (coronary artery disease) I25.10 ESRD on hemodialysis N18.6; Z99.2 History of CVA with residual deficit I69.30 (1) Syncope Syncope type: unspecified Qualified Code(s): R55 - Syncope and collapse
--- NOTE | 2019-11-25 16:16 | Neurology Consultation ---
Date of Consultation November 25, 2019 Assessment & Plan (1) History of CVA with residual deficit: Miguel Mata is a 74 yo man w/ PMH of prior left MCA with residual right- sided weakness and aphasia, history of epilepsy on Dilantin chronically, prolonged QT, renal artery stenosis status post left renal artery stent, hypertension, hyperlipidemia, ASCVD S/P CABG, PVD with iliofemoral bypass, chronic tobacco abuse, cognitive impairment and recently initiated ESRD who presents to [facility] after an episode of unresponsiveness during dialysis. # Unresponsive episodes during dialysis: suspect dialysis disequilibrium syndrome given response to saline and the fact that he is just starting HD in the past one week. Cannot rule out vasovagal component if he was valsalva'ing during dialysis but that seems less likely the case from the second event yesterday. - would defer to nephrology for management of DDS # H/o L MCA stroke with residual R sided hemiplegia and aphasia: stable, at his baseline - continue plavix 75 mg daily and controlling HTN/DM # H/o epilepsy: currently on dilantin however subtherapeutic. Dilantin is not the best medication for ESRD on HD as levels can vary significantly with HD sessions. - would recommend changing to keppra 500mg qMWFSu about 24 hours after completion of [facility] HD sessions - would check keppra level in 1 week to ensure that he is within the therapeutic window (prior to HD) - can follow up in neurology clinic in 1-2 months once other issues stabilize # Chronic L ICA stenosis vs occlusion: known since at least 2010, hence chronic. His CTH from 09/2019 shows encephalomalacia in the left frontal lobe predominantly. Given prior CEA, his option for treatment would be a carotid stent however he would not be a good candidate given his other medical co- morbidities. Additionally, from his 2011 MRA neck, it does appear that the L ICA was completely occluded at that point, making any treatment option including stent unavailable. - recommend continuing with maximal medical therapy with plavix and atorvastatin Thank you for this interesting consult. Plan of care discussed with primary team. Please call or text with questions. (2) Carotid artery stenosis: (3) Second degree AV block, Mobitz type I: (4) Prolonged QT interval: (5) ESRD on hemodialysis: (6) Seizure disorder: History of Present Illness Attending Physician: Jarrod Jones History of Present Illness Miguel Mata is a 74 yo man w/ PMH of prior left MCA with residual right-sided weakness and aphasia, history of epilepsy on Dilantin chronically, prolonged QT, renal artery stenosis status post left renal artery stent, hypertension, hyperlipidemia, ASCVD S/P CABG, PVD with iliofemoral bypass, chronic tobacco abuse, cognitive impairment and recently initiated ESRD who presents to [facility] after an episode of unresponsiveness during dialysis. Per review of notes in chart, he was recently started on dialysis last week after insertion of right IJ TDC. This initial dialysis session was also associated with a period of unresponsiveness and and a CODE BLUE response. He had one outpatient HD session on 11/21/2019 without complication prior to episode of unresponsiveness on 11/23/2019. Episode occurred after he was approximately 3 hours into his session and was noted to have normal vitals with SBP about 160. He was given normal saline and regained consciousness. He had a recurrent event several minutes later that was associated with twitching of his extremities. At that point dialysis was stopped, he started to gain consciousness and was transferred to the ED for evaluation. In the ED, blood pressure was 64/91, heart rate 76, respiratory rate 20, satting 88% on room air, afebrile. Labs notable for WBC 10.31, microcytic anemia with hemoglobin 9.9, platelets 219, creatinine 2.1, glucose 98, INR 1.1, TSH within normal, calcium magnesium within normal, normal gap. Dilantin level was low at 4.5. EKG showed a new incomplete right bundle branch block and prolonged QT P on his baseline. Chest x-ray showed cardiomegaly, emphysema, pulmonary vascular congestion and trace bilateral pleural effusions. He had a carotid Doppler performed today that showed greater than 70% stenosis of the left ICA with reversal flow in the left vertebral artery. Overnight, telemetry picked up second-degree AV block Mobitz type I. Also noted to have elevated troponin which is now downtrending. Cardiology consulted for further recs. On examination today, he cannot provide any history as to why he is in the hospital or what happened. He was oriented to his self but otherwise did not answer orientation questions appropriately. He has residual aphasia and right- sided weakness which appears similar to that described in Dr. Chávez's note from 2010. On review of prior records, he last saw Dr. Chávez in 2010. At that time he was being followed for history of left MCA infarct with residual right-sided weakness and aphasia. You is also being followed for post stroke epilepsy. At that time he was supposed to be on Dilantin 100 mg 3 times daily or 200 mg twice daily. Therapeutic Dilantin level at that time was around 15. Unclear why he stopped following with neurology but he does appear to be taking Dilantin still. Allergies Allergy/AdvReac Type Severity Reaction Status Date / Time adhesive Allergy Unknown BLISTERING Verified 11/24/19 10:07 OF SKIN latex Allergy Rash Verified 11/24/19 10:07 Home Medications Home Medications Medication Instructions Recorded Confirmed Type phenytoin sodium extended 100 mg 100 mg PO BID #180 cap 02/24/19 11/24/19 Rx capsule atorvastatin 80 mg tablet 80 mg PO DAILY #90 tab 03/11/19 11/24/19 Rx clopidogrel 75 mg tablet 75 mg PO DAILY #90 tab 03/11/19 11/24/19 Rx nitroglycerin 0.4 mg sublingual 0.4 mg SL .PRN/UD PRN #25 tab 03/11/19 11/24/19 History tablet metoprolol tartrate 50 mg tablet 50 mg PO BID #180 tab 03/30/19 11/24/19 Rx citalopram 10 mg tablet 10 mg PO DAILY #30 tab 07/08/19 11/24/19 Rx amlodipine 10 mg tablet 10 mg PO DAILY #90 tab 07/28/19 11/24/19 Rx calcitriol 0.25 mcg PO 3XWK 10/14/19 11/24/19 History ranitidine HCl 150 mg tablet 150 mg PO BID #180 tab 11/10/19 11/24/19 Rx isosorbide mononitrate 60 mg 60 mg PO DAILY #30 tab 11/11/19 11/24/19 Rx tablet,extended release 24 hr witch balta 50 % topical pads 1 pad TOP BID #100 ea 11/16/19 11/24/19 Rx docusate sodium [Stool Softener] 100 mg PO DAILY 11/17/19 11/24/19 History B complex with C 20-folic acid 1 cap PO QAM #30 cap 11/20/19 11/24/19 Rx [Renal Caps] sevelamer HCl [Renagel] 800 mg PO BID@1130,1700 #60 tab 11/20/19 11/24/19 Rx Patient History Medical History Arteriosclerotic cardiovascular disease (Acute) Benign prostatic hyperplasia (Acute) Carotid artery stenosis (~2009) s/p remote R & L endarterectomies with L re-occlusion sometime before 2010 Cerebral artery occlusion with cerebral infarction (Acute) Congestive heart failure (CHF) (Acute) Diabetes mellitus with circulatory complication (Chronic) Diabetic peripheral neuropathy (Acute) Esophageal reflux (Acute) H/O tobacco use, presenting hazards to health (Acute) Hemiparesis (Acute) History of CVA with residual deficit (2009) Left MCA territory with right hemiparesis and global aphasia Hyperlipidemia (Chronic) Mitral regurgitation (Acute) Nausea, vomiting, and diarrhea (Inactive) Seizure disorder (Chronic) SNHL (sensorineural hearing loss) (Acute) Stroke syndrome (Acute) 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 (Acute) Type 2 DM with CKD stage 3 and hypertension Surgical History (Updated 11/25/19 @ 15:57 by Nguyễn Pressley MD) History of aorto-femoral bypass History of bypass graft (non vein) Aortic-femoral or bifemoral History of esophagogastroduodenoscopy (EGD) S/P CABG (coronary artery bypass graft) (2007) Family History Diabetes Sister Cardiac disorder Unknown Hypercholesteremia Brother Hypertension Brother Unknown Social History Preferred Language: Tajik Communication Ability: Effective Business Account Leader Required: No Beliefs That Will Affect Care: None marital status: Current Living Situation: Spouse Current Living Situation Comment: In apartment per . Feels Safe at Home: Yes Smoking Status: Former smoker Tobacco Type: cigarettes ; Cigarettes Per Day: Quit about 10 years ago. 2 packs per day for 40 years. ; Second Hand Exposure: No ; Hx Alcohol Use: No Hx Substance Use: No caffeine: No Seatbelt Use: always Review of Systems Review of Systems: Unobtainable due to cognitive status Physical Exam Physical Exam: General Exam: GEN: NAD, sitting in bed. HEENT: No conjunctival injection, no rhinorrhea. CV: RRR, no peripheral edema PULM: Nonlabored respirations on room air. Neuro Exam: MS: Awake and Alert. Oriented to person not place or date. Speech fluent but inappropriate, with dysarthria, minimal paraphasic errors. Unable to name, repeat or consistently comprehend. Unable to assess memory/cognition 2/2 language deficits. Attention intact. No neglect. CN: R inferior quadrantopia. No extinction to double simultaneous stimuli. Unable to visualize fundi on fundoscopic exam. PERRLA OU. EOMI without nystagmus. Facial sensation intact to LT. Facial muscles full and symmetric. Hearing intact to conversation. Uvula midline with symmetric palatal elevation. Shoulder shrug normal. Tongue midline. MOTOR: Normal bulk and tone. + pronator drift in RUE. LUE antigravity without drift, RUE antigravity briefly with drift to bed, BLEs briefly antigravity but drifted to bed. REFLEXES: 2+ at R biceps, triceps, brachioradialis, 1+ at R biceps, triceps, brachioradialis, 1+ patella and absent Achilles bilaterally. Toes mute bilaterally. SENSORY: Withdraws to noxious stimuli throughout. COORDINATION: No dysmetria or ataxia on [id number]. GAIT: deferred given physical status/baseline hemiplegia Results & Data Vital Signs (Past 12 Hours) Vital Signs Temp Pulse Resp BP BP Pulse Ox 11/25/19 15:19 37.1 C 56 L 19 111/59 L 91 11/25/19 12:24 36.5 C 62 20 100/63 97 11/25/19 08:30 95 11/25/19 07:47 36.9 C 66 16 142/89 H 100 PG Care Time/CCT Total # of Minutes Spent Total Time Spent with Patient: Total time spent is greater than 50% in coordination of care (as documented) at patient's floor/unit and/or counseling patient: Coding Level of Care Code 74412 Initial Inpt Care Lvl 3 Diagnoses History of CVA with residual deficit I69.30 Carotid artery stenosis I65.29 Second degree AV block, Mobitz type I I44.1 Prolonged QT interval R94.31 ESRD on hemodialysis N18.6; Z99.2 Seizure disorder G40.909
--- NOTE | 2019-11-25 16:44 | Electrocardiogram Report ---
Test Reason : Blood Pressure : / mmHG Vent. Rate : 062 BPM Atrial Rate : 075 BPM P-R Int : 000 ms QRS Dur : 096 ms QT Int : 478 ms P-R-T Axes : 044 -09 190 degrees QTc Int : 485 ms Sinus rhythm with 2nd degree A-V block (Mobitz I) Prolonged QT Abnormal ECG When compared with ECG of 24-NOV-2019 09:41, Ventricular prmature beats are no longer present Second degree AV block is now present Confirmed by Oli Holguin ([id number]) on 11/25/2019 4:43:52 PM Referred By: REFERRED SELF Confirmed By:Oli Holguin
[2019-11-25] MEDS: METOPROLOL TARTRATE 25 MG TAB PO SCH (21:04)
[2019-11-26 06:58] LABS: Hematocrit (blood only) 29.2 % (42-52); Hemoglobin 9.2 g/dL (14.0-18.0); Mean Corpuscular Hemoglobin 32.3 pg (25-34); Mean Corpuscular Hgb Conc 31.5 g/dL (32-36); Mean Corpuscular Volume 102.5 fL (80-100); Platelet Count 246 K/uL (130-400); RDW Coefficient of Variation 14.9 % (11.5-14.5); RDW Standard Deviation 55.9 fL (36.4-46.3); Red Blood Count 2.85 M/uL (4.7-6.1); White Blood Count 7.17 K/uL (4.8-10.8)
[2019-11-26] MEDS ORDERED: HEPARIN SOD (PORCINE) 1000 UNIT/ML 10 ML VIAL IV ONE (07:00)
[2019-11-26] MEDS ORDERED: SODIUM CHLORIDE 0.9% 1000ML 1,000 ML IV PRN (07:00)
[2019-11-26 07:46] LABS: BUN Creatinine Ratio 10.3 (10-20); Calcium 8.5 mg/dl (8.5-10.1); Creatinine Clr Calc Pharmacy 12.2 ml/min; Est GFR (African American) 13.3; Est GFR (Non-African American) 11.5; Ferritin 302.7 ng/ml (8-388)
[2019-11-26 09:02] LABS: Potassium 4.4 mmol/L (3.5-5.1)
[2019-11-26] MEDS: DOCUSATE SODIUM 100 MG CAP PO SCH (09:07)
[2019-11-26] MEDS: INSULIN ASPART 100 UNITS/ML 3 ML PEN SC SCH ×3 (09:07→17:19)
[2019-11-26] MEDS: METOPROLOL TARTRATE 25 MG TAB PO SCH (09:08)
[2019-11-26] MEDS: WITCH HAZEL/GLYCERIN 40 PADS/JAR (TUCKS) EXT SCH (09:09)
[2019-11-26] MEDS: HEPARIN SOD 5,000 UNIT/0.5 ML VIAL SQ SCH (09:10)
--- NOTE | 2019-11-26 09:36 | Nephrology Progress Note ---
Date of Service November 26, 2019 Assessment & Plan (1) ESRD on hemodialysis: -- Volume status & electrolyte balance are acceptable. Creatinine is steadily trending up in between HD treatments and patient is becoming azotemic -- HD orders entered into EMR. Message left w/ HD event staff. Will limit treatment to 3 hrs, 1L UF, low dose heparin (2) Syncope: -- Recommend echocardiogram -- Carotid doppler w/ > 70% L ICA stenosis -- Symptoms at dialysis were similar to previous seizure activity. They initially occurred following 1 hr HD at low Qb. Neurology recommendations reviewed. Low Phenytoin level (4.5, range 10 - 20). Agree w/ changing to Keppra (3) Hemorrhoids, thrombosed: -- KUB reveals moderate fecal retention in ascending colon -- General surgery recommends conservative management of hemorrhoid Subjective Mr. Mata was seen & examined in his hospital room this morning. He was alert and in no distress. His noted that there were no complications overnight Review of Systems Constitutional: + weakness; no fever Eyes: no worsening vision and no problem reported Ear, Nose, Mouth, Throat: no problem reported Respiratory: no cough and no dyspnea Cardiovascular: no chest pain, no palpitations and no edema Gastrointestinal: no abdominal pain, no nausea, no vomiting and no diarrhea/loose stools Genitourinary: no dysuria, no urinary hesitancy and no hematuria Musculoskeletal: no back pain Integumentary: no rash Neurologic: no falls Physical Exam Constitutional: + frail appearing; not in distress Eyes: PERRL, conjunctivae normal, anicteric sclerae ENMT: external ear and nose normal, oropharynx normal Neck: trachea midline, no thyromegaly Respiratory: normal respiratory effort, lungs clear to auscultation Cardiovascular: Rate/Rhythm: regular rate and regular rhythm Heart Sounds: + murmur Gastrointestinal (Abdomen): normal bowel sounds, soft, nontender, no hepatosplenomegaly Musculoskeletal: Extremities: no cyanosis Skin: no rashes, warm and dry Neurologic: awake Cranial Nerves: PERRL Results & Data Vital Signs (Past 12 Hours) Vital Signs Temp Pulse Resp BP Pulse Ox 11/26/19 07:30 36.8 C 75 22 154/89 H 96 11/26/19 06:25 97 11/26/19 06:00 36.3 C L 83 19 126/81 86 L 11/26/19 03:27 36.8 C 69 16 145/80 H 94 11/25/19 22:00 36.5 C 76 19 152/90 H 85 L Laboratory Results Laboratory Tests 11/26/19 11/26/19 06:18 06:18 WBC 7.17 Hgb 9.2 L Hct 29.2 L Plt Count 246 Sodium 135 L Chloride 99 Carbon Dioxide 29 BUN 49 H Creatinine 4.65 H* D Glucose 131 H PG Care Time/CCT Total # of Minutes Spent Total Time Spent with Patient: Total time spent is greater than 50% in coordination of care (as documented) at patient's floor/unit and/or counseling patient: Coding Level of Care Code 68567 Subseq Hosp Care Lvl 3 Diagnoses ESRD on hemodialysis N18.6; Z99.2 Syncope R55 Syncope type: unspecified Hemorrhoids, thrombosed K64.5 (1) Syncope Syncope type: unspecified Qualified Code(s): R55 - Syncope and collapse
[2019-11-26] MEDS: CITALOPRAM 20 MG TAB PO SCH (12:43)
[2019-11-26] MEDS: CLOPIDOGREL BISULFATE 75 MG TAB PO SCH (12:43)
[2019-11-26] MEDS: NEPHROCAPS PO SCH (12:44)
[2019-11-26] MEDS: ISOSORBIDE MONO EXTENDED REL 60 MG TABCR PO SCH (12:44)
[2019-11-26] MEDS: AMLODIPINE BESYLATE 5 MG TAB PO SCH (12:44)
[2019-11-26] MEDS: FAMOTIDINE 20 MG TAB PO SCH (12:44)
[2019-11-26] MEDS: ATORVASTATIN 40 MG TAB PO SCH (12:44)
--- NOTE | 2019-11-26 13:16 | Cardiology Progress Note ---
Date of Service November 26, 2019 Assessment & Plan (1) Syncope: Etiology of syncopal episodes uncertain, vasovagal and/or dialysis disequilibrium syndrome. Although the association with bowel movements (if accurate) suggest vasovagal, the relatively protracted course and response to saline could be consistent with dialysis disequilibrium syndrome (although he did not have obvious prolonged neurologic symptoms, but difficult to tell given his baseline). Either way, he would benefit from reduction in dialysis intensity. In addition, given his Mobitz 1 second-degree block yesterday and his recurrent syncope, his beta-amrit dose was reduced and should help decrease the likelihood of both recurrent heart block and/or syncope. No chest pain or acute ECG ischemic changes, therefore doubt acute cardiac event. Would not be inclined to obtain repeat echocardiogram just now, since he had one last week and has pre-existing wall motion abnormalities, making interpretation challenging. Also it is doubtful any dramatic change would be seen that would further guide management. He does have a history of long QT syndrome, but no dysrhythmias have been detected to suggest this plays a role in his syncope. (2) Elevated troponin: No specific intervention or further ischemic work-up, as above would attempt to reduce his risk for recurrent vasovagal syncope. (3) Carotid artery stenosis: Per neurology. (4) CAD (coronary artery disease): Although he is high risk for cardiac events given his generalized vascular disease, he is status post remote CABG (2007) and he has preserved systolic function on his recent echocardiogram (EF 50-55%). As noted, current troponin elevation likely supply/demand mismatch rather than primary cardiac event. Conservative management warranted. (5) ESRD on hemodialysis: (6) History of CVA with residual deficit: Admission and Anticipated Discharge Date Admission Date: November 24, 2019 Subjective No further syncope. No evidence of dysrhythmia on monitor. Patient denied any complaints. No chest pain or dyspnea. BP variable but generally normotensive, normal heart rate (69-83 bpm). Physical Exam Physical Exam: Elderly white male in no distress. BP variable from low normal to mildly hypertensive. Pulse 69-83 bpm range. Skin: No generalized lesions or ecchymoses. HEENT: Unremarkable. Neck: No jugular venous distention. Carotids with bilateral bruits versus transmitted murmur. Lungs: Clear bilaterally. Cardiac: Regular rhythm with ectopy. 3/6 systolic ejection murmur at the base rating to the carotids and left sternal border, 3/6 apical holosystolic murmur. Intact aortic closure sound. No diastolic murmur. No gallop. Abdomen: Soft nontender. Nondistended. Extremities: No edema. Peripheral pulses diminished lower extremities. Fair capillary refill. Neurologic: Answers simple questions, history of right hemiparesis, detailed neuro exam not performed. Results & Data ([facility]) Vital Signs (Past 12 Hours) Vital Signs Temp Pulse Pulse Resp BP Pulse Ox 11/26/19 11:00 98.2 F 63 16 143/88 H 91 11/26/19 08:00 86 11/26/19 07:30 98.2 F 75 22 154/89 H 96 11/26/19 06:25 97 11/26/19 06:00 97.3 F L 83 19 126/81 86 L 11/26/19 03:27 98.2 F 69 16 145/80 H 94 PG Care Time/CCT Total # of Minutes Spent Total Time Spent with Patient: Total time spent is greater than 50% in coordination of care (as documented) at patient's floor/unit and/or counseling patient: Coding Level of Care Code 06681 Subseq Hosp Care Lvl 3 Diagnoses Syncope R55 Syncope type: unspecified Elevated troponin R79.89 Carotid artery stenosis I65.29 CAD (coronary artery disease) I25.10 ESRD on hemodialysis N18.6; Z99.2 History of CVA with residual deficit I69.30 (1) Syncope Syncope type: unspecified Qualified Code(s): R55 - Syncope and collapse
[2019-11-26] MEDS: SEVELAMER HCL 800 MG TABLET PO SCH ×2 (14:59→17:11)
[2019-11-26] MEDS ORDERED: ACETAMINOPHEN 325 MG TAB PO ONE (17:50)
--- NOTE | 2019-11-26 18:08 | Discharge Summary ---
Date of Service November 26, 2019 Admission HPI Per Admitting Provider 74-year-old male was transferred from his dialysis center earlier this morning after a reported episode of syncope. Specific details from that center are not available. The patient himself has a history of a CVA, seems mildly confused at baseline despite his known expressive aphasia, answers questions with yes or no but often changes his answers immediately, and is relatively noncontributory in his overall history. - Per patient's son at bedside, the patient has undergone a couple of previous outpatient dialysis sessions without incident. This morning the patient was reportedly undergoing dialysis, perhaps for a couple of hours, at which point the patient decided he needed to have a bowel movement. Patient son thinks that this caused a syncopal episode which immediately resulted in his transfer here. Patient son says that he has some level of undifferentiated hemorrhoidal disease that causes him a lot of discomfort and some rectal bleeding. He reportedly had a normal colonoscopy within the past couple of years. He also says that the patient will often deny having rectal pain because he has not wanted any procedures in the past. Patient does have a history of seizures but there was no reported seizure-like activity this morning. - Past medical history includes syncope, constipation, prolonged QTC, renal artery stenosis, end-stage renal disease, hypertension, hyperlipidemia, CAD, PAD, diabetes type 2, CVA, BPH, microcytic anemia, seizure disorder, GERD - Past surgical history includes iliofemoral bypass, EGD, CABG, left renal artery stenting, permacath placement - Social history includes history of 1 pack/day smoking. Denies alcohol use. Lives at home with spouse. Admission Exam Per Admitting Provider GENERAL: Awake, alert, in no acute distress. HENT: Normocephalic, atraumatic. Oropharynx dry. EYES: Normal conjunctiva. Sclera non-icteric. NECK: Inspection normal. Supple and full ROM. No nuchal rigidity. CARDIAC: +S1S2 RRR, no murmurs. Well-healed midline sternotomy scar. RESPIRATORY: Clear to auscultation. No wheezes or rales. Normal respiratory effort. GI: +BS, soft, non-distended. No tenderness to palpation. No rebound or guarding. No appreciable masses. Rectal: There is a thrombosed external hemorrhoid present. Dried blood around the anus. EXTREMITIES: No pedal edema or calf tenderness. NEURO: Difficulty raising the right arm and leg off of the bed. He knows he has delayed speech and only answers questions with yes or no, though he often will immediately change his answer after asked the same question. He will smile and at times nod his head yes or no which seems more reliable. Lines: Right upper chest permacath in place. Principal Diagnosis Syncope, Constipation, Carotid artery stenosis Discharge Exam General: Resting comfortably HEENT: NC/AT; PERRLA with EOMI; [place] conjunctiva, MMM. No erythema of posterior pharynx Neck: Supple and nontender Cardiac: RRR Lungs: CTA bilaterally Abdomen: Bowel normoactive X 4; Nontender to palpation Extremities: Warm. No edema present Neuro: No focal weakness; nods head but cannot complete full conversation. Skin: No rash Discharge Data Allergies Allergy/AdvReac Type Severity Reaction Status Date / Time adhesive Allergy Unknown BLISTERING Verified 11/27/19 13:48 OF SKIN latex Allergy Rash Verified 11/27/19 13:48 Consultations 11/24/19 11:24 ED Decision to Admit Stat 11/24/19 15:00 Consult General Surgery Routine Consult Nephrology Routine 11/24/19 16:46 Consult Cardiology Routine 11/25/19 08:05 Consult Neurology Routine Ordered Studies 11/24/19 15:00 US carotid doppler BI Routine CXR KUB Hospital Course (1) Syncope: Likely related to vasovagal episode in setting of severe constipation. Did have code blue episode on 11/16 for constipation with straining during HD session. EKG with NSR, nonspecific ST wave changes - similar to last admission. Trop is elevated, likely c/w ESRD. 2nd degree AV block on tele -- cardiology consulted. Decreased Metoprolol to 25 mg BID. Carotid doppler with >70% left ICA stenosis -- chronic stenosis based on imaging from 2010. Pt. would not likely be a surgical candidate due to co-morbidities. Neuro consulted to evaluate for seizure activity; Dilantin level low. Will convert to Keppra (see below) PT/OT recommended home health. (2) Carotid artery stenosis: L carotid artery stenosis - did not likely contribute to syncope. Carotid doppler with >70% left ICA stenosis. H/o bilateral carotid endarterectomies. Continued Plavix/statin as prescribed. Cardiology and neurology did not recommend intervention. (3) Hypoxia: Required 2L on admission, related to pulm edema? CXR did show mild congestion. Weaned to room air on day of discharge. (4) Second degree AV block, Mobitz type I: Noted on telemetry and EKG. Cardiology consulted, decreased Metoprolol to 25 mg BID. (5) Elevated troponin: Trop peaked at 0.490, now trending down. In setting of ESRD. EKG similar to previous admissions. (6) Constipation: Severe constipation at home -- KUB showed mild to moderate stool burden. Did not tolerate Go-lytely prep --> responded well to Lactulose and fleet enema. Recommend Colace BID with Miralax QOD at home. (7) Hemorrhoids, thrombosed: In setting of severe constipation. Gen surg consulted, recommended bowel regimen and hydrocortisone cream prn. (8) Elevated transaminase level: Improved. (9) Prolonged QT interval: QTc 550 on admission. Avoided QT prolonging agents. QTc improved to 480 on repeat test. (10) Renal artery stenosis: Follows closely with nephrology. S/p left renal artery stenting on Sep 18, 2019. (11) End stage renal disease: Nephro consulted, permacath placed on 11/17/19. Continued HD per nephro -- receives HD qTues/Thurs/Sat. Continued home renal meds. (12) Hyperlipidemia: Continued statin as prescribed. (13) Hypertension: Continued Amlodipine, Imdur, Metoprolol as prescribed. (14) CAD (coronary artery disease): Echo on 11/17/19 showed EF 50-55%, hypokinesis of inferoposterior wall. Continued home statin, plavix, imdur, metoprolol, amlodipine as prescribed.S/p CABG, cardiology consulted. (15) Peripheral artery disease: Continued plavix/statin as prescribed. (16) Diabetes mellitus: Hgb A1C 5.4. (17) History of CVA (cerebrovascular accident): Residual right foot drop and generalized lower extremity + right upper extremity weakness, mild expressive aphasia. Neuro consulted for input. (18) Macrocytic anemia: History of same. Folate level 12, B12 720. (19) Seizure disorder: D/c'ed Dilantin due to ?seizure activity and subtherapeutic levels. Started Keppra 500 mg qSunMonWedFri 24 hours after HD sessions. Script provided for f/u Keppra level in 1 week prior to HD. F/u neuro 1-2 months. (20) GERD (gastroesophageal reflux disease): Famotidine. Discharged to home on 11/26/19. Total Time Total Time Spent Total Time Spent (In Minutes): >30 minutes Total Time Includes: Examination of the Patient, Discharge Planning, Medication Reconciliation, Communication With Other Providers and Other Discharge Plan Discharge Items Patient Disposition: Home - Home Health Services Reason For Visit: syncop,HYPOXIA,ESRD Discharge Diagnosis: ESRD, Hypoxia, Syncope Condition on Discharge: Fair Goals: You have been hospitalized for an acute medical problem. During your stay at [facility], we have made an effort to correct the problem that brought you to the hospital while keeping you as comfortable as possible. Medications were used to bring your condition under control and your discharge instructions will include directions for any medications you should take after leaving the hospital. Please make sure you see your Primary Care Provider as part of your follow up plan. Activity: As commented below Exercise/Sports: Gradually increase as tolerated Non-emergency contact: Primary Care Provider, Electrical Unit [employer] and [employer] Application Engineer Call non-emergency contact if: you have any medication questions, your symptoms worsen and you have a fever Follow-up/Referrals: Erick Zapata III, MD [Primary Care Provider] - 12/02/19 1:50 pm Olivia Shell MD [Physician] - 12/11/19 3:30 pm Diet: Carb Consistent or DM2 and Dialysis Renal Ambulatory Orders: Keppra (Levetiracetam) (Routine) Timeframe: 1 Week Location: None Selected Ordered By: Sonja Floyd Attending Provider Instructions: 1. Syncopal episode likely related to constipation * Please take Colace 100 mg twice daily at home along with Miralax every other day to prevent constipation. * Consider addition of enema for persistent constipation. * Work up was negative during this admission for underlying reason for syncopal episode. 2. Hemodialysis * Please resume HD as scheduled every , and Saturday. * Please follow up with nephrology as scheduled. 3. Home Metoprolol dose has been decreased from 50 mg to 25 mg twice daily. 4. History of seizures * Home Dilantin has been discontinued. * Please take Keppra 500 mg on Saturday, Saturday, Saturday and Saturday (on non- dialysis days) -- dose should be administered 24 hours after completion of dialysis on these days. * You will need a follow up Keppra level in 1 week -->> this level should be collected prior to dialysis! -- on December 02. Script was provided at discharge. * Please follow up with Dr. Shell in 1-2 months. 5. Hemorrhoids * Please use over the counter topical Hydrocortisone cream for hemorrhoids at home. 6. Please follow up with PCP in 1-2 weeks to discuss this hospital admission. Pending Studies at Discharge: No Stand-Alone Forms: My [facility] Medications and DC Order Prescriptions: New levetiracetam [Keppra] 500 mg Tablet 500 mg PO SuMoWeFr@1600 Qty: 16 RF: 3 metoprolol tartrate 25 mg Tablet 25 mg PO BID Qty: 60 RF: 2 Continued atorvastatin 80 mg tablet 80 mg PO DAILY Qty: 90 RF: 3 clopidogrel 75 mg tablet 75 mg PO DAILY Qty: 90 RF: 3 ranitidine HCl 150 mg tablet 150 mg PO BID Qty: 180 RF: 3 isosorbide mononitrate 60 mg tablet extended release 24 hr 60 mg PO DAILY Qty: 30 RF: 5 Tucks (witch balta) 50 % pads, medicated 1 pad TOP BID Qty: 100 RF: 0 amlodipine 10 mg tablet 10 mg PO DAILY Qty: 90 RF: 2 nitroglycerin [Nitrostat] 0.4 mg tablet, sublingual 0.4 mg SL .PRN/UD PRN (Reason: Chest Pain) Qty: 25 RF: 0 citalopram 10 mg tablet 10 mg PO DAILY Qty: 30 RF: 5 calcitriol 0.25 mcg capsule 0.25 mcg PO 3XWK RF: 0 sevelamer HCl [Renagel] 800 mg Tablet 800 mg PO BID@1130,1700 Qty: 60 RF: 0 Renal Caps 1 mg Capsule 1 cap PO QAM Qty: 30 RF: 0 Changed docusate sodium [Stool Softener] 100 mg Capsule 100 mg PO BID Qty: 0 RF: 0 Discontinued phenytoin sodium extended 100 mg capsule 100 mg PO BID Qty: 180 RF: 3 metoprolol tartrate 50 mg tablet 50 mg PO BID Qty: 180 RF: 3 No Action polyethylene glycol 3350 [Miralax] 17 gram powder in packet 17 gm PO Q OTHER DAY RF: 0 Discharge Orders: Discharge Order (Routine); Ordered 11/26/19 Ordered By: Sonja Mccormick Admission Data Admit Date/Time: 11/24/19 12:44 Attending Provider: Jarrod Jones Admit Provider: Kika Hardy Primary Care Provider: Erick Zapata III Other Providers: Kika Hardy ; Marino Ward ; Joss Maxwell ; Nguyễn Pressley ; [facility] ; Olivia Shell Other Interventions: Discharge Summary Assessment (RN) Last Done: 11/26/19 18:26 DC Date/Time DO NOT enter until pt leaves facility: 11/26/19 18:43 Supervising Physician Co-Signing Physician Notes Attending Attestation and Discharge Note: Pt seen/examined, chart reviewed in detail, discharge care plan d/w PA Sonja Mccormick. I agree w/ the grande components of her discharge documentation. Complicated 74yo male with numerous medical problems and recently dx ESRD with initiation of HD. Presented with syncopal episode while obtaining his hemodialysis. Either vasovagal vs dialysis disequilibrium syndrome as culprit. Seen by neurology and cardiology; both felt that 1 of the above 2 diagnoses was the likely culprit. Patient had been staining at stool when the syncopal episode occurred. Has thrombosed hemorrhoid; seen by gen surg this admission; conservative Rx w/ anusol recommended. Treat underlying constipation as well. Vitals and labs have remained stable since admission. Tele with joniitz 1 transiently - beta amrit dose reduced. No higher block seen. Discharge exam: gen - thin, NAD, looks chronically ill mouth - MMM neck - no JVD heart - RRR, s1 s2 lungs - CTA b/l abd - soft NT ext - no edema Jarrod Jones MD Coding Level of Care Code D/C Day Management >30 mins Diagnoses Syncope R55 Syncope type: unspecified Carotid artery stenosis I65.29 Hypoxia R09.02 Second degree AV block, Mobitz type I I44.1 Elevated troponin R79.89 Constipation K59.04 Constipation type: chronic idiopathic constipation Hemorrhoids, thrombosed K64.5 Elevated transaminase level R74.0 Prolonged QT interval R94.31 Renal artery stenosis I70.1 End stage renal disease N18.6 Hyperlipidemia E78.5 Hypertension I10 CAD (coronary artery disease) I25.10 Peripheral artery disease I73.9 Diabetes mellitus E11.9 History of CVA (cerebrovascular accident) Z86.73 Macrocytic anemia D53.9 Seizure disorder G40.909 GERD (gastroesophageal reflux disease) K21.9
[2019-11-27] MEDS ORDERED: levETIRAcetam 500 MG TAB PO SCH (16:00)
== END 2019-11-26 18:43 | disposition home health service (06) ==
LOC: ED 09:43 → INTOOBSV 12:44 → SUATTDRO 12:44 → 2S 12:44

== ENCOUNTER 2019-11-27 12:04 | Inpatient (IN) ==
--- NOTE | 2019-11-27 13:15 | Emergency Department Note ---
History of Present Illness General Chief complaint: Abdominal Pain Stated complaint: ABD PAIN Time Seen by Provider: 11/27/19 12:59 History of Present Illness Maximum Pain Intensity: 5 This is a 74-year-old male that presents to the emergency department via ambulance with complaints of "abdominal pain". The patient although does appear to have expressive aphasia is able to relay that he is experiencing abdominal pain. He states that he was discharged here not long ago and now has abdominal pain. He points to the periumbilical region as a location of pain. Overall pain is rated as a 5/10. The patient denies any fevers or chills. He notes that the abdominal pain is diffuse. No known trauma or injury. Last bowel movement was quite small and was last night. He denies any chest pain or new shortness of breath. Pain appears to be worse when he sits upright. Home Medications Home Medications Medication Instructions Recorded Confirmed Type atorvastatin 80 mg tablet 80 mg PO DAILY #90 tab 03/11/19 11/27/19 Rx clopidogrel 75 mg tablet 75 mg PO DAILY #90 tab 03/11/19 11/27/19 Rx nitroglycerin 0.4 mg sublingual 0.4 mg SL .PRN/UD PRN #25 tab 03/11/19 11/27/19 History tablet citalopram 10 mg tablet 10 mg PO DAILY #30 tab 07/08/19 11/27/19 Rx amlodipine 10 mg tablet 10 mg PO DAILY #90 tab 07/28/19 11/27/19 Rx calcitriol 0.25 mcg PO 3XWK 10/14/19 11/27/19 History ranitidine HCl 150 mg tablet 150 mg PO BID #180 tab 11/10/19 11/27/19 Rx isosorbide mononitrate 60 mg 60 mg PO DAILY #30 tab 11/11/19 11/27/19 Rx tablet,extended release 24 hr witch balta 50 % topical pads 1 pad TOP BID #100 ea 11/16/19 11/27/19 Rx Renal Caps 1 cap PO QAM #30 cap 11/20/19 11/27/19 Rx sevelamer HCl [Renagel] 800 mg PO BID@1130,1700 #60 tab 11/20/19 11/27/19 Rx docusate sodium [Stool Softener] 100 mg PO BID #0 cap 11/26/19 11/27/19 Rx levetiracetam [Keppra] 500 mg PO SuMoWeFr@1600 #16 tab 11/26/19 11/27/19 Rx metoprolol tartrate 25 mg PO BID #60 tab 11/26/19 11/27/19 Rx polyethylene glycol 3350 [Miralax] 17 gm PO Q OTHER DAY 11/27/19 11/27/19 History Allergies Allergy/AdvReac Type Severity Reaction Status Date / Time adhesive Allergy Unknown BLISTERING Verified 11/27/19 13:48 OF SKIN latex Allergy Rash Verified 11/27/19 13:48 Past Med/Surg History Medical History Arteriosclerotic cardiovascular disease (Acute) Benign prostatic hyperplasia (Acute) Carotid artery stenosis s/p remote R & L endarterectomies with L re-occlusion sometime before 2010 Congestive heart failure (CHF) (Acute) Diabetic peripheral neuropathy (Acute) Esophageal reflux (Acute) 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 Hyperlipidemia (Chronic) Seizure disorder (Chronic) SNHL (sensorineural hearing loss) (Acute) Type 2 DM with CKD stage 3 and hypertension Surgical History History of aorto-femoral bypass History of bypass graft (non vein) Aortic-femoral or bifemoral History of esophagogastroduodenoscopy (EGD) S/P CABG (coronary artery bypass graft) (2007) Family History Brother Hypertension Hypercholesteremia Sister Diabetes Unknown Hypertension Cardiac disorder Social History Preferred Language: Italian Communication Ability: Effective Communication Ability Comment: information provided by - 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 2 packs per day for 40 years. ; Do You Dip or Chew Tobacco: No ; Second Hand Exposure: No ; Tobacco Cessation Education Requested by Patient: No Hx Alcohol Use: No Hx Substance Use: No caffeine: No Seatbelt Use: always Review of Systems A total of 10 systems reviewed and were otherwise negative Physical Exam Vital Signs Vital Signs - 24 hr 11/27/19 12:10 11/27/19 12:14 11/27/19 13:43 Temperature 36.9 C Temperature Source Oral Pulse Rate 88 88 88 Pulse Rate [Apical] Pulse Rate from SpO2 Sensor Respiratory Rate 20 20 25 H Respiratory Effort / Characteristics Respiratory Depth Blood Pressure 188/112 H 188/112 H Blood Pressure [Right Arm] Blood Pressure Mean 137 136 163 Blood Pressure Mean [Right Arm] Blood Pressure Position [Right Arm] Pulse Oximetry 95 Oxygen Delivery Method Room Air Oxygen Flow Rate Sepsis Recent Fever Within 48 Hours No Sepsis New/Unexplained Change in Mental Status No Sepsis Action Taken by Nursing No Action Required 11/27/19 13:45 11/27/19 13:46 11/27/19 13:51 Temperature Temperature Source Pulse Rate 85 92 H 93 H Pulse Rate [Apical] 93 H Pulse Rate from SpO2 Sensor 92 H 92 H Respiratory Rate 25 H 27 H 13 Respiratory Effort / Characteristics Respiratory Depth Blood Pressure 216/161 H 198/115 H Blood Pressure [Right Arm] 198/115 H Blood Pressure Mean 178 120 Blood Pressure Mean [Right Arm] 142 Blood Pressure Position [Right Arm] Pulse Oximetry 83 L 93 Oxygen Delivery Method Room Air Oxygen Flow Rate Sepsis Recent Fever Within 48 Hours Sepsis New/Unexplained Change in Mental Status Sepsis Action Taken by Nursing 11/27/19 14:00 11/27/19 14:10 11/27/19 14:21 Temperature Temperature Source Pulse Rate 105 H 113 H 102 H Pulse Rate [Apical] Pulse Rate from SpO2 Sensor Respiratory Rate 26 H 24 21 Respiratory Effort / Characteristics Respiratory Depth Blood Pressure Blood Pressure [Right Arm] Blood Pressure Mean Blood Pressure Mean [Right Arm] Blood Pressure Position [Right Arm] Pulse Oximetry Oxygen Delivery Method Oxygen Flow Rate Sepsis Recent Fever Within 48 Hours Sepsis New/Unexplained Change in Mental Status Sepsis Action Taken by Nursing 11/27/19 14:38 11/27/19 14:40 11/27/19 14:51 Temperature Temperature Source Pulse Rate 81 81 84 Pulse Rate [Apical] Pulse Rate from SpO2 Sensor Respiratory Rate Respiratory Effort / Characteristics Respiratory Depth Blood Pressure Blood Pressure [Right Arm] Blood Pressure Mean Blood Pressure Mean [Right Arm] Blood Pressure Position [Right Arm] Pulse Oximetry Oxygen Delivery Method Oxygen Flow Rate Sepsis Recent Fever Within 48 Hours Sepsis New/Unexplained Change in Mental Status Sepsis Action Taken by Nursing 11/27/19 15:00 11/27/19 15:09 11/27/19 15:10 Temperature Temperature Source Pulse Rate 91 H 108 H 108 H Pulse Rate [Apical] Pulse Rate from SpO2 Sensor 108 H 109 H Respiratory Rate 14 26 H 29 H Respiratory Effort / Characteristics Respiratory Depth Blood Pressure 165/124 H Blood Pressure [Right Arm] Blood Pressure Mean 127 Blood Pressure Mean [Right Arm] Blood Pressure Position [Right Arm] Pulse Oximetry 95 95 Oxygen Delivery Method Oxygen Flow Rate Sepsis Recent Fever Within 48 Hours Sepsis New/Unexplained Change in Mental Status Sepsis Action Taken by Nursing 11/27/19 15:13 11/27/19 15:20 11/27/19 15:31 Temperature Temperature Source Pulse Rate 111 H 95 H Pulse Rate [Apical] 111 H Pulse Rate from SpO2 Sensor 107 H 100 H Respiratory Rate 27 H 31 H 28 H Respiratory Effort / Characteristics Non-Labored Spontaneous Respiratory Depth Normal Blood Pressure Blood Pressure [Right Arm] 165/124 H Blood Pressure Mean Blood Pressure Mean [Right Arm] 137 Blood Pressure Position [Right Arm] Lying Pulse Oximetry 87 L 94 97 Oxygen Delivery Method Room Air Nasal Cannula Oxygen Flow Rate 2 Sepsis Recent Fever Within 48 Hours Sepsis New/Unexplained Change in Mental Status Sepsis Action Taken by Nursing 11/27/19 15:40 11/27/19 15:50 Temperature Temperature Source Pulse Rate 88 87 Pulse Rate [Apical] Pulse Rate from SpO2 Sensor 90 94 H Respiratory Rate 27 H 28 H Respiratory Effort / Characteristics Respiratory Depth Blood Pressure Blood Pressure [Right Arm] Blood Pressure Mean Blood Pressure Mean [Right Arm] Blood Pressure Position [Right Arm] Pulse Oximetry 96 96 Oxygen Delivery Method Oxygen Flow Rate Sepsis Recent Fever Within 48 Hours Sepsis New/Unexplained Change in Mental Status Sepsis Action Taken by Nursing VITAL SIGNS - Vital signs and nursing notes were reviewed. Stable and afebrile. GENERAL -74-year-old male appearing his stated age who is in no acute distress. Communicates well with provider and answers questions appropriately. SKIN - Without rashes. No meningeal or petechial rash. HEAD - NC/AT. EYES - PERRL with EOMI bilaterally. Sclera anicteric. EARS - No deformities of external structures noted on gross examination bilaterally. NOSE - Midline and without cyanosis. No epistaxis or purulent drainage noted. MOUTH/OROPHARYNX - Without perioral cyanosis. Buccal mucosa pink and moist and without leukoplakia. Tongue midline with equal elevation of palate bilaterally. No tonsillar hypertrophy, erythema, or exudates noted. Fair dentition noted. NECK - Neck with FROM. Supple to palpation. No lymphadenopathy noted. No nuchal rigidity. LUNGS - Chest wall symmetric without accessory muscle use, intercostals retractions, or central cyanosis. Patient does have what appears to be a slight increased work of breathing. There is some minimal rales bilaterally. CARDIAC - RRR without any definite murmur. Likely a paced rhythm. ABDOMEN - Abdominal contour normal without pulsations or visible masses. BS normoactive all four quadrants. Some mild periumbilical tenderness palpation. No palpable masses, hepatosplenomegaly, or ascites noted. EXTREMITIES - No clubbing or peripheral cyanosis. No pretibial edema present. +5/5 strength noted in UE/LE bilaterally. NEUROLOGIC - Cranial nerves II through XII grossly intact. Sensory intact to light touch throughout. Patellar reflexes +2/4. PSYCH - A&Ox3 and cooperates fully with examiner. Pt is very pleasant and interacts well with examiner. Course Administered Medications Docusate Sodium (Colace) 100 mg PO BID [facility] Stop: 12/27/19 20:59 Last Admin: 11/27/19 21:14 Dose: 100 mg Documented by: [id number] Heparin Sodium (Porcine) (Heparin Sodium (Porcine)) 5,000 units SQ Q12 SEE Stop: 12/27/19 20:59 Last Admin: 11/27/19 21:14 Dose: 5,000 units Documented by: [id number] Cosigned by: [id number] Levetiracetam (Keppra) 500 mg PO SuMoWeFr@1600 SEE Stop: 12/27/19 20:59 Last Admin: 11/27/19 21:15 Dose: 500 mg Documented by: [id number] Metoprolol Tartrate (Lopressor) 25 mg PO BID SEE Stop: 12/27/19 20:59 Last Admin: 11/27/19 21:15 Dose: 25 mg Documented by: [id number] Polyethylene Glycol (Miralax Powder Packet) 17 gm PO Q2D SEE Stop: 12/27/19 20:59 Last Admin: 11/27/19 21:14 Dose: 17 gm Documented by: [id number] Sevelamer HCl (Renagel) 800 mg PO BID@1130,1700 [facility] Stop: 12/27/19 20:59 Last Admin: 11/27/19 21:14 Dose: 800 mg Documented by: [id number] Discontinued Medications Furosemide (Lasix) Confirm Administered Dose 40 mg IV .STK-MED ONE Stop: 11/27/19 16:37 Last Admin: 11/27/19 16:43 Dose: 40 mg Documented by: [id number] Nitroglycerin/Dextrose (Nitroglycerin/D5w 100 Mcg/Ml) 250 mls @ 3 mls/hr IV . Q24H [facility]; Protocol Stop: 12/27/19 16:44 Last Admin: 11/27/19 19:42 Dose: Not Given Documented by: [id number] Labetalol HCl (Normodyne) 10 mg IV 1643 [facility] Stop: 11/27/19 18:00 Last Admin: 11/27/19 17:30 Dose: 10 mg Documented by: [id number] Cosigned by: [id number] Labetalol HCl (Normodyne) Confirm Administered Dose 5 mg IV .STK-MED ONE Stop: 11/27/19 16:45 Last Admin: 11/27/19 16:56 Dose: Not Given Documented by: [id number] Labetalol HCl (Normodyne) Confirm Administered Dose 5 mg IV .STK-MED ONE Stop: 11/27/19 16:45 Last Admin: 11/27/19 17:22 Dose: Not Given Documented by: [id number] Levalbuterol HCl (Xopenex 0.63 Mg/3 Ml Neb) 0.63 mg NEB NOW STA Stop: 11/27/19 16:37 Last Admin: 11/27/19 16:45 Dose: 0.63 mg Documented by: [id number] Nitroglycerin (Nitrostat) 0.4 mg SL NOW STA Stop: 11/27/19 16:36 Last Admin: 11/27/19 16:43 Dose: 0.4 mg Documented by: [id number] Medical Decision Making Laboratory Data Result diagrams: 11/27/19 13:45 11/27/19 13:45 Lab Results 11/27/19 11/27/19 11/27/19 Range/Units 13:45 13:45 13:45 WBC 7.43 (4.8-10.8) K/uL RBC 3.00 L (4.7-6.1) M/uL Hgb 9.8 L (14.0-18.0) g/dL Hct 30.9 L (42-52) % MCV 103.0 H (80-100) fL MCH 32.7 (25-34) pg MCHC 31.7 L (32-36) g/dL RDW Std Deviation 55.6 H (36.4-46.3) fL RDW Coeff of Shayy 14.8 H (11.5-14.5) % Plt Count 275 (130-400) K/uL MPV 9.8 (7.4-10.4) fL Immature Gran % (Auto) 0.8 % Neut % (Auto) 62.2 % Lymph % (Auto) 18.4 % Union % (Auto) 18.4 % Eos % (Auto) 0.1 % Baso % (Auto) 0.1 % Immature Gran # (Auto) 0.06 H (0.00-0.02) K/uL Neut # (Auto) 4.61 (1.4-6.5) K/uL Lymph # (Auto) 1.37 (1.2-3.4) K/uL Union # (Auto) 1.37 H (0.11-0.59) K/uL Eos # (Auto) 0.01 (0-0.5) K/uL Baso # (Auto) 0.01 (0-0.2) K/uL PT 11.0 (9.0-12.0) Seconds INR 1.0 (0.9-1.1) APTT 25.5 (21.0-31.0) Seconds PTT Ratio 0.9 Sodium 135 L (136-145) mmol/L Potassium 4.6 (3.5-5.1) mmol/L Chloride 104 (98-107) mmol/L Carbon Dioxide 23 (21-32) mmol/L Anion Gap 8.0 (3-11) BUN 44 H (7-18) mg/dl Creatinine 4.12 H D (0.6-1.4) mg/dl Est Cr Clr Drug Dosing 13.2 ml/min Est GFR ( Amer) 15.4 Est GFR (Non-Af Amer) 13.3 BUN/Creatinine Ratio 10.7 (10-20) Glucose 114 H (70-99) mg/dl Calcium 8.4 L (8.5-10.1) mg/dl Magnesium 2.0 (1.8-2.4) mg/dl Total Bilirubin 0.4 (0.2-1) mg/dl AST 125 H (15-37) U/L ALT 93 H (12-78) U/L Alkaline Phosphatase 76 (45-117) U/L Troponin I 0.179 H* (0-0.045) ng/ml NT-Pro-B Natriuret Pep (0-900) pg/ml Total Protein 7.4 (6.4-8.2) gm/dl Albumin 2.7 L (3.4-5.0) gm/dl Globulin 4.7 H (2.5-4.0) gm/dl Albumin/Globulin Ratio 0.6 L (0.9-2) Lipase 873 H (73-393) U/L Procalcitonin (0-0.5) ng/ml TSH 1.990 (0.300-4.500) uIu/ml 11/27/19 11/27/19 Range/Units 13:45 13:45 WBC (4.8-10.8) K/uL RBC (4.7-6.1) M/uL Hgb (14.0-18.0) g/dL Hct (42-52) % MCV (80-100) fL MCH (25-34) pg MCHC (32-36) g/dL RDW Std Deviation (36.4-46.3) fL RDW Coeff of Shayy (11.5-14.5) % Plt Count (130-400) K/uL MPV (7.4-10.4) fL Immature Gran % (Auto) % Neut % (Auto) % Lymph % (Auto) % Union % (Auto) % Eos % (Auto) % Baso % (Auto) % Immature Gran # (Auto) (0.00-0.02) K/uL Neut # (Auto) (1.4-6.5) K/uL Lymph # (Auto) (1.2-3.4) K/uL Union # (Auto) (0.11-0.59) K/uL Eos # (Auto) (0-0.5) K/uL Baso # (Auto) (0-0.2) K/uL PT (9.0-12.0) Seconds INR (0.9-1.1) APTT (21.0-31.0) Seconds PTT Ratio Sodium (136-145) mmol/L Potassium (3.5-5.1) mmol/L Chloride (98-107) mmol/L Carbon Dioxide (21-32) mmol/L Anion Gap (3-11) BUN (7-18) mg/dl Creatinine (0.6-1.4) mg/dl Est Cr Clr Drug Dosing ml/min Est GFR ( Amer) Est GFR (Non-Af Amer) BUN/Creatinine Ratio (10-20) Glucose (70-99) mg/dl Calcium (8.5-10.1) mg/dl Magnesium (1.8-2.4) mg/dl Total Bilirubin (0.2-1) mg/dl AST (15-37) U/L ALT (12-78) U/L Alkaline Phosphatase (45-117) U/L Troponin I (0-0.045) ng/ml NT-Pro-B Natriuret Pep 36171 H (0-900) pg/ml Total Protein (6.4-8.2) gm/dl Albumin (3.4-5.0) gm/dl Globulin (2.5-4.0) gm/dl Albumin/Globulin Ratio (0.9-2) Lipase (73-393) U/L Procalcitonin 0.43 (0-0.5) ng/ml TSH (0.300-4.500) uIu/ml Imaging Data Radiologist's Impression: CT abd pelvis wo con CLINICAL HISTORY: 74 years-old Male presenting with generalized abdominal pain. TECHNIQUE: Multidetector CT of the abdomen and pelvis was performed without the use of intravenous contrast. IV contrast: None. One or more dose lowering techniques were used consistent with the principles of ALARA (as low as roni sonably achievable), including automatic exposure control, mA or kV adjustment to individual patient size, and/or use of iterative reconstruction. COMPARISON: 11/09/2019. CT DOSE (mGy.cm): The estimated cumulative dose is 246.69 mGy.cm. FINDINGS: Attendant Child Activity topogram: Unremarkable. Lung bases: Normal heart size. Moderate bilateral pleural effusions. Passive atelectasis in the lower lobes. Interlobular septal thickening. Liver: Normal morphology. Normal density. Biliary: No gross biliary ductal dilatation allowing for noncontrast technique. Normal gallbladder. Pancreas: Mild parenchymal atrophy. Spleen: Normal noncontrast appearance. Adrenal glands: Mild thickening of the left adrenal gland, nonspecific. Normal noncontrast appearance of the right adrenal gland. Kidneys and ureters: Moderate to severe atrophy of the right kidney. Prominent parapelvic cyst at the upper pole the left kidney. Milder atrophy of the left kidney overall. Prominent renovascular calcification. No nephrolithiasis or hydronephrosis. Ureters nondistended. Bladder: Circumferential bladder wall thickening. Pelvic organs: Prostate enlargement likely secondary to benign prostatic hyperplasia. Bowel: Diverticulosis of the proximal to mid sigmoid colon without wall thickening or pericolonic inflammatory change. No bowel obstruction. The appendix is normal. Duodenal diverticulum at the level of the pancreatic head. Peritoneal cavity: No free fluid or intraperitoneal gas. Lymph nodes: No gross lymphadenopathy allowing for noncontrast technique. Vasculature: Postsurgical changes of prior aortobifemoral bypass grafting. Bypass grafts extend to the common femoral arteries, where there is aneurysmal dilatation, measuring 2.2 cm on the right and 1.5 cm on the left, unchanged. Postsurgical changes in the right inguinal region. Left renal artery stent in place at the origin and along the proximal course. Abdominal wall: Normal. Musculoskeletal: Degenerative changes of the spine. Osteopenia. IMPRESSION: 1. Moderate bilateral pleural effusions with bibasilar passive atelectasis and venolymphatic congestive changes at the lung bases. This is unchanged from prior. 2. Renal atrophy, right greater than left. 3. Chronic bladder outlet obstruction secondary to prostatomegaly. 4. Diverticulosis coli. No diverticulitis. 5. Aortobifemoral bypass grafting in the setting of severe atherosclerotic disease. 6. Stable bilateral common femoral artery aneurysms. ACT 112: Negative or not required by law. Electronically signed by: David Galdamez M.D. 11/27/2019 2:42 PM XR chest 1V portable HISTORY: 74 years-old Male abd pain acute atypical chest pain with acute generalized abdominal pain COMPARISON: Chest radiograph 11/24/2019 TECHNIQUE: Portable AP view of the chest FINDINGS: Cardiomegaly. Prior median sternotomy. Unchanged right IJ dual-lumen hemodialysis catheter. Trace pleural effusions. Pulmonary vascular congestion with interstitial coarsening. Probable emphysema. No airspace consolidation typical for pneumonia. Mild bibasilar densities suggest probable atelectasis. Degenerative changes of the shoulders and spine. IMPRESSION: 1. Cardiomegaly with pulmonary vascular congestion. 2. Trace pleural effusions with bibasilar densities suggestive of probable atelectasis. ACT 112: Negative or not required by law. The above report was generated using voice recognition software. It may contain grammatical, syntax or spelling errors. Electronically signed by: Romel May M.D. 11/27/2019 1:29 PM XR chest 1V portable CLINICAL HISTORY: Hypoxia COMPARISON STUDY: 11/27/2019 FINDINGS: The cardiac and mediastinal contours remain stable. Heart is mildly enlarged. There are postsurgical changes of midline sternotomy. There is a right internal jugular dual-lumen central venous catheter unchanged in position. There is radiographic evidence of congestive failure with interstitial edema. This appears slightly progressive.[Trace pleural effusions are suspected. IMPRESSION: Worsening congestive failure with mild interstitial edema. ACT 112: Negative or not required by law. Electronically signed by: Nick Vegas M.D. 11/27/2019 4:42 PM MDM Narrative Patient was seen and evaluated as above in room C1. Review was performed of nursing notes and vital signs. After obtaining a thorough history and physical examination the above work up was performed. He presents to us today with abdominal pain. He does appear to have expressive aphasia but appears to be at baseline. Vital signs are stable. The patient wanted me to lay him slightly supine compared to his presentation of being upright as it was creating more abdominal pain. He was uncomfortable. CT scan of the abdomen pelvis was obtain ed without contrast as well as a chest x-ray. The chest x-ray revealed some trace pleural effusions with bibasilar densities suggestive of probable atelectasis and cardiomegaly with pulmonary vascular congestion. The patient did look well though throughout his stay however upon reevaluation he was slightly hypoxic into the 80s. He was placed on 2 L of nasal cannula. He was resting comfortably. It was felt that further evaluation and management in the inpatient setting would be reasonable. There was no leukocytosis. Mild anemia at 9.8. No emergent metabolic disturbance. Creatinine is 4.12 but he is on dialysis. Last dialysis was yesterday. Troponin 0.179. BNP 32,000. Lipase 873. Influenza screen within normal limits. The patient case was discussed with the attending physician and subsequently the hospitalist. Shortly thereafter I was called to the room by the nurse as the patient was decompensating. His oxygen saturations were dropping and he was tachycardic. The attending physician was also notified immediately and the patient was placed on BiPAP. He was given IV Lasix. He was given IV Lopressor. He is also given nitroglycerin. He improved well. Please refer to further documentation regarding his stay. EKG reveals what appears to be sinus rhythm with frequent PACs at a rate of 81 bpm. QTc 464. No concerning ST elevation. 2 other EKGs were then obtained and the one performed at 1638 revealed what is likely sinus tachycardia potentially at a rate of 119 bpm. QTc 464. An EKG was performed 1 minute prior to that and revealed sinus tachycardia with first-degree AV block at a rate of [address] elevation. Case was discussed with the attending physician. In the evaluation and treatment of this patient, the following differential di agnoses were considered: CO, ASC, Dysrhythmia, Angina, Mediastinitis, GERD, Esophagitis, PE, Pneumonia, Bronchitis, Costochondritis, Rib Fracture, Zoster, acute abdomen, dissection, among others. Impression & Plan Pulmonary vascular congestion, Elevated lipase, Elevated troponin, Acute respiratory failure with hypoxia Critical Care Time Critical Care Time: Yes I have personally spent 60 minutes of critical care time in the direct management of this patient. This includes bedside care, interpretation of diagnostic studies, and testing, discussion with consultants, patient, and family members, and other required patient management activities. This 60 minutes is in excess of all separately billable procedures. Discharge Plan Visit Data *Final* Discharge Date/Time: 11/27/19 17:42 Chief Complaint: Abdominal Pain Stated Complaint: ABD PAIN ED Provider: Clarence Alonzo ED Midlevel Provider: Jesus Yuen Discharge Problem: Pulmonary vascular congestion, Elevated lipase, Elevated troponin, Acute respiratory failure with hypoxia Patient Disposition: Admitted As Inpatient Condition: Good Discharge Instructions Interventions: ED Discharge Assessment Last Done: 11/27/19 17:42
--- NOTE | 2019-11-27 13:30 | XRay Report ---
XR chest 1V portable HISTORY: 74 years-old Male abd pain acute atypical chest pain with acute generalized abdominal pain COMPARISON: Chest radiograph 11/24/2019 TECHNIQUE: Portable AP view of the chest FINDINGS: Cardiomegaly. Prior median sternotomy. Unchanged right IJ dual-lumen hemodialysis catheter. Trace ple ural effusions. Pulmonary vascular congestion with interstitial coarsening. Probable emphysema. No ai rspace consolidation typical for pneumonia. Mild bibasilar densities suggest probable atelectasis. De generative changes of the shoulders and spine. IMPRESSION: 1. Cardiomegaly with pulmonary vascular congestion. 2. Trace pleural effusions with bibasilar densities suggestive of probable atelectasis. ACT 112: Negative or not required by law. The above report was generated using voice recognition software. It may contain grammatical, syntax o r spelling errors. Electronically signed by: Romel May M.D. 11/27/2019 1:29 PM
[2019-11-27 14:08] LABS: Basophils # (auto) 0.01 K/uL (0-0.2); Basophils % (auto) 0.1 %; Eosinophils # (auto) 0.01 K/uL (0-0.5); Eosinophils % (auto) 0.1 %; Hematocrit (blood only) 30.9 % (42-52); Hemoglobin 9.8 g/dL (14.0-18.0); Immature Granulocytes # (auto) 0.06 K/uL (0.00-0.02); Immature Granulocytes % (auto) 0.8 %; Lymphocytes # (auto) 1.37 K/uL (1.2-3.4); Lymphocytes % (auto) 18.4 %; Mean Corpuscular Hemoglobin 32.7 pg (25-34); Mean Corpuscular Hgb Conc 31.7 g/dL (32-36); Mean Platelet Volume 9.8 fL (7.4-10.4); Monocytes # (auto) 1.37 K/uL (0.11-0.59); Monocytes % (auto) 18.4 %; Neutrophils # (auto) 4.61 K/uL (1.4-6.5); Neutrophils % (auto) 62.2 %; Platelet Count 275 K/uL (130-400); RDW Coefficient of Variation 14.8 % (11.5-14.5); RDW Standard Deviation 55.6 fL (36.4-46.3); White Blood Count 7.43 K/uL (4.8-10.8)
[2019-11-27 14:26] LABS: Albumin Level 2.7 gm/dl (3.4-5.0); BUN Creatinine Ratio 10.7 (10-20); Calcium 8.4 mg/dl (8.5-10.1); Creatinine Clr Calc Pharmacy 13.2 ml/min; Est GFR (African American) 15.4; Est GFR (Non-African American) 13.3; Potassium 4.6 mmol/L (3.5-5.1)
[2019-11-27 14:33] LABS: Partial Thromboplastin Ratio 0.9; Partial Thromboplastin Time 25.5 Seconds (21.0-31.0)
--- NOTE | 2019-11-27 14:44 | CT Scan Report ---
CT abd pelvis wo con CLINICAL HISTORY: 74 years-old Male presenting with generalized abdominal pain. TECHNIQUE: Multidetector CT of the abdomen and pelvis was performed without the use of intravenous co ntrast. IV contrast: None. One or more dose lowering techniques were used consistent with the princip les of ALARA (as low as reasonably achievable), including automatic exposure control, mA or kV adjust ment to individual patient size, and/or use of iterative reconstruction. COMPARISON: 11/09/2019. CT DOSE (mGy.cm): The estimated cumulative dose is 246.69 mGy.cm. FINDINGS: Final Cigar [employer] Box Examiner topogram: Unremarkable. Lung bases: Normal heart size. Moderate bilateral pleural effusions. Passive atelectasis in the lower lobes. Interlobular septal thickening. Liver: Normal morphology. Normal density. Biliary: No gross biliary ductal dilatation allowing for noncontrast technique. Normal gallbladder. Pancreas: Mild parenchymal atrophy. Spleen: Normal noncontrast appearance. Adrenal glands: Mild thickening of the left adrenal gland, nonspecific. Normal noncontrast appearance of the right adrenal gland. Kidneys and ureters: Moderate to severe atrophy of the right kidney. Prominent parapelvic cyst at the upper pole the left kidney. Milder atrophy of the left kidney overall. Prominent renovascular calcif ication. No nephrolithiasis or hydronephrosis. Ureters nondistended. Bladder: Circumferential bladder wall thickening. Pelvic organs: Prostate enlargement likely secondary to benign prostatic hyperplasia. Bowel: Diverticulosis of the proximal to mid sigmoid colon without wall thickening or pericolonic inf lammatory change. No bowel obstruction. The appendix is normal. Duodenal diverticulum at the level of the pancreatic head. Peritoneal cavity: No free fluid or intraperitoneal gas. Lymph nodes: No gross lymphadenopathy allowing for noncontrast technique. Vasculature: Postsurgical changes of prior aortobifemoral bypass grafting. Bypass grafts extend to th e common femoral arteries, where there is aneurysmal dilatation, measuring 2.2 cm on the right and 1. 5 cm on the left, unchanged. Postsurgical changes in the right inguinal region. Left renal artery christine nt in place at the origin and along the proximal course. Abdominal wall: Normal. Musculoskeletal: Degenerative changes of the spine. Osteopenia. IMPRESSION: 1. Moderate bilateral pleural effusions with bibasilar passive atelectasis and venolymphatic congest betty changes at the lung bases. This is unchanged from prior. 2. Renal atrophy, right greater than left. 3. Chronic bladder outlet obstruction secondary to prostatomegaly. 4. Diverticulosis coli. No diverticulitis. 5. Aortobifemoral bypass grafting in the setting of severe atherosclerotic disease. 6. Stable bilateral common femoral artery aneurysms. ACT 112: Negative or not required by law. Electronically signed by: David Galdamez M.D. 11/27/2019 2:42 PM
[2019-11-27 14:56] LABS: Albumin Globulin Ratio 0.6 (0.9-2); Bilirubin,Total 0.4 mg/dl (0.2-1); Globulin 4.7 gm/dl (2.5-4.0); Thyroid Stimulating Hormone 1.99 uIu/ml (0.300-4.500); Total Protein 7.4 gm/dl (6.4-8.2); Troponin I 0.179 ng/ml (0-0.045)
[2019-11-27] MEDS ORDERED: NITROGLYCERIN SL 0.4 MG/TAB TAB SL STA (16:35)
[2019-11-27] MEDS ORDERED: FUROSEMIDE 40 MG/4 ML VIAL IV STA (16:35)
[2019-11-27] MEDS ORDERED: STAT IV Infusion **Titration per Protocol STA (16:36)
[2019-11-27] MEDS ORDERED: LEVALBUTEROL HCL 0.63 MG/3 ML NEB NEB STA (16:36)
[2019-11-27] MEDS ORDERED: FUROSEMIDE 40 MG/4 ML VIAL IV ONE (16:36)
[2019-11-27] MEDS ORDERED: LABETALOL HCL IV 5 MG/ML 20ML IV SCH (16:43)
[2019-11-27] MEDS ORDERED: LABETALOL HCL IV 5 MG/ML 20ML IV ONE ×2 (16:44)
--- NOTE | 2019-11-27 16:44 | XRay Report ---
XR chest 1V portable CLINICAL HISTORY: Hypoxia COMPARISON STUDY: 11/27/2019 FINDINGS: The cardiac and mediastinal contours remain stable. Heart is mildly enlarged. There are pos tsurgical changes of midline sternotomy. There is a right internal jugular dual-lumen central venous catheter unchanged in position. There is radiographic evidence of congestive failure with interstitia l edema. This appears slightly progressive.[Trace pleural effusions are suspected. IMPRESSION: Worsening congestive failure with mild interstitial edema. ACT 112: Negative or not required by law. Electronically signed by: Nick Vegas M.D. 11/27/2019 4:42 PM
[2019-11-27] MEDS ORDERED: NITROGLYCERIN/D5W 100MCG/ML 250 ML IV SCH (16:45)
--- NOTE | 2019-11-27 16:58 | Electrocardiogram Report ---
Test Reason : Blood Pressure : / mmHG Vent. Rate : 081 BPM Atrial Rate : 100 BPM P-R Int : 000 ms QRS Dur : 096 ms QT Int : 400 ms P-R-T Axes : 000 008 088 degrees QTc Int : 464 ms Sinus rhythm with frequent Premature atrial complexes Nonspecific ST and T wave abnormality Abnormal ECG When compared with ECG of 25-NOV-2019 10:03, T wave inversion no longer evident in Inferior leads T wave inversion less evident in Anterolateral leads Confirmed by Oli Holguin ([id number]) on 11/27/2019 4:57:48 PM Referred By: Confirmed By:Oli Holguin
--- NOTE | 2019-11-27 17:23 | History & Physical Report ---
Date of Service November 27, 2019 Assessment & Plan (1) Acute respiratory failure with hypoxia: - Presented with acute respiratory failure following recent admission -- related to acute CHF exacerbation vs. infection. - Influenza by PCR is pending -- his does report flu-like symptoms at home and patient was hospitalized 11/23-11/25. Consider addition of RVP. - CXR with congestive failure and mild interstitial edema -- see below for management of CHF. - Currently requiring BiPAP -- is DNR/DNI but agrees with upgrade to ICU for medication management if necessary. (2) Acute on chronic diastolic heart failure: - Presented with hypoxia, congestive failure noted on CXR. - Wght is increased -- 58 kg to 61.5 kg over last 24 hours. - Monitor daily weights and I/Os. - BNP level pending. - Received Lasix 40 mg IV in the ER; will give additional IV diuretics in the morning if indicated. - Continue home BB as prescribed. (3) Pulmonary vascular congestion: - As noted above. (4) Hypertensive urgency: - BP >200 this afternoon. - Received Nitroglycericin SL + Labetalol 10 mg IV with improvement. - Continue home Metoprolol 25 mg BID (recently decreased from 50 mg BID), Imdur 60 mg daily, Amlodipine 10 mg daily as prescribed. - Consider upgrade to ICU if pt. has recurrent hypertension. (5) Elevated lipase: - Lipase level 873; CT A/P was negative. - Pt. did report abd pain in the ER -- will trend lipase level in the AM. (6) ESRD on hemodialysis: - Currently receives HD qTuesThursSat. - Nephrology consulted. - Renally dose all meds. - Continue home medications. (7) Renal artery stenosis: - Monitored; s/p left renal artery stenting in Sep 2019. (8) Elevated troponin: - Trop level peaked at 0.459 during last admission. - Level was 0.179 -- likely chronically elevated in setting of ESRD. - No indication for further monitoring; EKG was negative on admission. (9) CAD (coronary artery disease): - Echo on 11/17/19 showed EF 50-55%, hypokinesis of inferoposterior wall. - Continue home statin, plavix, imdur, metoprolol, amlodipine as prescribed. - S/p CABG in the past. (10) Prolonged QT interval: - QTc was 550 during the last admission. - QTc of 460 in the ER. - Avoid QT prolonging meds if possible. (11) Carotid artery stenosis: - L carotid artery stenosis - did not likely contribute to syncope. - Carotid doppler with >70% left ICA stenosis. H/o bilateral carotid endarterectomies. - Continue Plavix/statin as prescribed. - Cardiology and neurology did not recommend intervention. (12) Second degree AV block, Mobitz type I: - Noted on tele during last admission, cardiology consulted. - Admit to tele floor. (13) GERD (gastroesophageal reflux disease): - Famotidine as inpatient. (14) Expressive aphasia: - Chronic, currently at baseline. (15) Syncope: - Recently admitted from 11/23-11/25 for syncopal episode during HD; also had syncope on 11/16 during HD. - Possibly related to DDS (per neuro) vs. vasovagal due to straining from constipation. - Fall precautions; consider PT/OT evaluation. (16) Peripheral artery disease: - Continue Plavix/statin as prescribed. (17) Macrocytic anemia: - History of, H/H stable. - Monitor CBC intermittently. (18) History of CVA with residual deficit: - Residual R foot drop and RUE weakness, mild aphasia. - Continue home Plavix/statin. (19) Seizure disorder: - Recently converted Dilantin to Keppra qSunMWF per neuro due to subtherapeutic Dilantin levels in setting of HD. Pt. should receive Keppra 24 hours after HD sessions. - Will need Keppra level in 6 days (prior to HD) -- see consult note. - Questionable seizure activity during syncopal episodes. (20) Hyperlipidemia: - Continue statin. DVT ppx: SCDs; Heparin BID. Dispo: PCU tele; please call family, including , son and daughter, if patient clinically deteriorates overnight. His and daughter were updated with plan of care this evening. History of Present Illness Chief Complaint: Hypoxia Primary Care Provider: Erick Zapata MD Mr. Mata is 74 year old male with past medical history of carotid artery stenosis, prolonged QT interval, end stage renal disease/renal artery stenosis, HLD, HTN, CAD, peripheral arterial disease, DM, CVA, macrocytic anemia, seizure disorder, GERD who presented with hypoxia. Pt. was recently admitted from 11/23- 11/25 for a syncopal episode during HD. Pt. was hypoxic at the beginning of prior admission, possibly related to pulmonary edema, but hypoxia had resolved by time of discharge - patient ambulated in the henao without difficulty, did not have desaturation noted per bedside nurse on day of discharge. Pt. cannot provide acute review of systems at bedside due to aphasia -- this is a chronic issue for him, currently at baseline compared to last admission. He appears to be in respiratory distress -- was initially on 3L via NC but transitioned to BiPAP due to respiratory distress. CXR is pending; will order influenza as his reports flu like symptoms at home. He received Lasix 40 mg IV for presumed pulmonary edema -- initial CXR did show pulm vascular congestion and trace pleural effusions with probable atelectasis. EKG showed SR with frequent PACs, no ST wave changes noted. BP was elevated, SBP >200. Patient received Labetalol 10 mg IV and Nitroglycerin sublingually with improvement. Case was discussed with Dr. De La Torre, ICU physician, who felt patient was appropriate for PCU status at this time. Discussed code status with his via phone call -- she is currently c/o flu like symptoms at home, therefore she is not present at bedside. His daughter lives in [place] and his son is currently in [place], [place]. Pt. is DNR/DNI but she is okay with upgrade to ICU for medication changes if necessary. Allergies Allergy/AdvReac Type Severity Reaction Status Date / Time adhesive Allergy Unknown BLISTERING Verified 11/27/19 13:48 OF SKIN latex Allergy Rash Verified 11/27/19 13:48 Home Medications Home Medications Medication Instructions Recorded Confirmed Type atorvastatin 80 mg tablet 80 mg PO DAILY #90 tab 03/11/19 11/27/19 Rx clopidogrel 75 mg tablet 75 mg PO DAILY #90 tab 03/11/19 11/27/19 Rx nitroglycerin 0.4 mg sublingual 0.4 mg SL .PRN/UD PRN #25 tab 03/11/19 11/27/19 History tablet citalopram 10 mg tablet 10 mg PO DAILY #30 tab 07/08/19 11/27/19 Rx amlodipine 10 mg tablet 10 mg PO DAILY #90 tab 07/28/19 11/27/19 Rx calcitriol 0.25 mcg PO 3XWK 10/14/19 11/27/19 History ranitidine HCl 150 mg tablet 150 mg PO BID #180 tab 11/10/19 11/27/19 Rx isosorbide mononitrate 60 mg 60 mg PO DAILY #30 tab 11/11/19 11/27/19 Rx tablet,extended release 24 hr witch balta 50 % topical pads 1 pad TOP BID #100 ea 11/16/19 11/27/19 Rx Renal Caps 1 cap PO QAM #30 cap 11/20/19 11/27/19 Rx sevelamer HCl [Renagel] 800 mg PO BID@1130,1700 #60 tab 11/20/19 11/27/19 Rx docusate sodium [Stool Softener] 100 mg PO BID #0 cap 11/26/19 11/27/19 Rx levetiracetam [Keppra] 500 mg PO SuMoWeFr@1600 #16 tab 11/26/19 11/27/19 Rx metoprolol tartrate 25 mg PO BID #60 tab 11/26/19 11/27/19 Rx polyethylene glycol 3350 [Miralax] 17 gm PO Q OTHER DAY 11/27/19 11/27/19 History Past Med/Surg History Medical History Arteriosclerotic cardiovascular disease (Acute) Benign prostatic hyperplasia (Acute) Carotid artery stenosis s/p remote R & L endarterectomies with L re-occlusion sometime before 2010 Congestive heart failure (CHF) (Acute) Diabetic peripheral neuropathy (Acute) Esophageal reflux (Acute) 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 Hyperlipidemia (Chronic) Seizure disorder (Chronic) SNHL (sensorineural hearing loss) (Acute) Type 2 DM with CKD stage 3 and hypertension Surgical History History of aorto-femoral bypass History of bypass graft (non vein) Aortic-femoral or bifemoral History of esophagogastroduodenoscopy (EGD) S/P CABG (coronary artery bypass graft) (2007) Family History Brother Hypertension Hypercholesteremia Sister Diabetes Unknown Hypertension Cardiac disorder Social History Preferred Language: Welsh Communication Ability: Effective Communication Ability Comment: information provided by - states he has communication needs Retouching Operator Required: No Beliefs That Will Affect Care: None marital status: Current Living Situation: Spouse Current Living Situation Comment: in an apartment per Other Information That Helps Us Care for You: No Feels Safe at Home: Yes Safety Concerns: Feels Safe At This Time Smoking Status: Former smoker Tobacco Type: cigarettes ; Cigarettes Per Day: Quit about 10 years ago. 2 packs per day for 40 years. ; Do You Dip or Chew Tobacco: No ; Second Hand Exposure: No ; Tobacco Cessation Education Requested by Patient: No Hx Alcohol Use: No Hx Substance Use: No caffeine: No Seatbelt Use: always Review of Systems Review of Systems: Unobtainable due to cognitive status (Chronic aphasia) Physical Exam Physical Exam: General: Moderate acute distress related to respiratory issues. HEENT: NC/AT; PERRLA with EOMI; [place] conjunctiva, MMM. No erythema of posterior pharynx Neck: Supple and nontender Cardiac: Tachycardic Lungs: BiPAP; crackles noted in bilat lung prieto. Abdomen: Bowel normoactive X 4; Nontender to palpation Rectal: Deferred : Deferred Back: NO spinous tenderness Extremities: Warm. No edema present Neuro: No focal weakness Skin: No rash Constitutional: WD/WN, vitals as above Eyes: normal visual prieto by confrontation and + anicteric sclerae Neck: normal visual inspection and trachea midline Respiratory: + respiratory distress Auscultation: + diminished lung sounds, + crackles and + rhonchi Cardiovascular: Rate/Rhythm: regular rhythm and + tachycardic Gastrointestinal (Abdomen): Inspection/Auscultation: abdomen not distended Percussion/Palpation: abdomen soft; abdomen nontender Musculoskeletal: Head/Neck/Chest: normocephalic and head atraumatic Neg for peripheral LE edema, + pedal pulses Skin: no rashes, warm and dry Neurologic: awake; not confused Speech / Cognition: normal speech Psychiatric: A+Ox3, euthymic affect Lymphatic: Exam as done by Precious Gallo DO Results & Data Vital Signs (Past 12 Hours) Vital Signs Temp Pulse Pulse Resp BP BP Pulse Ox 11/27/19 17:01 74 16 11/27/19 17:00 69 21 146/95 H 97 11/27/19 16:59 70 16 146/95 H 95 11/27/19 16:57 70 23 119/76 97 11/27/19 16:50 66 27 H 146/83 H 93 11/27/19 16:47 86 26 H 157/103 H 96 11/27/19 16:44 102 H 33 H 95 11/27/19 16:43 107 H 27 H 205/135 H 99 11/27/19 16:40 116 H 36 H 97 11/27/19 16:34 124 H 32 H 231/142 H 79 L 11/27/19 16:31 131 H 23 11/27/19 16:20 112 H 25 H 95 11/27/19 16:17 93 11/27/19 16:16 122 H 16 144/136 H 90 11/27/19 16:10 126 H 19 80 L 11/27/19 16:01 107 H 20 98 11/27/19 15:50 87 28 H 96 11/27/19 15:40 88 27 H 96 11/27/19 15:31 95 H 28 H 97 11/27/19 15:20 111 H 31 H 94 11/27/19 15:13 111 H 27 H 165/124 H 87 L 11/27/19 15:10 108 H 29 H 95 11/27/19 15:09 108 H 26 H 165/124 H 95 11/27/19 15:00 91 H 14 11/27/19 14:51 84 11/27/19 14:40 81 11/27/19 14:38 81 11/27/19 14:21 102 H 21 11/27/19 14:10 113 H 24 11/27/19 14:00 105 H 26 H 11/27/19 13:51 93 H 13 11/27/19 13:46 92 H 27 H 198/115 H 93 11/27/19 13:45 85 93 H 25 H 216/161 H 198/115 H 83 L 11/27/19 13:43 88 25 H 11/27/19 12:14 88 20 188/112 H 11/27/19 12:10 36.9 C 88 20 188/112 H 95 Laboratory Results 0311/27/19 11/27/19 Range/Units 13:45 13:45 13:45 WBC 7.43 (4.8-10.8) K/uL RBC 3.00 L (4.7-6.1) M/uL Hgb 9.8 L (14.0-18.0) g/dL Hct 30.9 L (42-52) % MCV 103.0 H (80-100) fL MCH 32.7 (25-34) pg MCHC 31.7 L (32-36) g/dL RDW Std Deviation 55.6 H (36.4-46.3) fL RDW Coeff of Shayy 14.8 H (11.5-14.5) % Plt Count 275 (130-400) K/uL MPV 9.8 (7.4-10.4) fL Immature Gran % (Auto) 0.8 % Neut % (Auto) 62.2 % Lymph % (Auto) 18.4 % [place] % (Auto) 18.4 % Eos % (Auto) 0.1 % Baso % (Auto) 0.1 % Immature Gran # (Auto) 0.06 H (0.00-0.02) K/uL Neut # (Auto) 4.61 (1.4-6.5) K/uL Lymph # (Auto) 1.37 (1.2-3.4) K/uL [place] # (Auto) 1.37 H (0.11-0.59) K/uL Eos # (Auto) 0.01 (0-0.5) K/uL Baso # (Auto) 0.01 (0-0.2) K/uL PT 11.0 (9.0-12.0) Seconds INR 1.0 (0.9-1.1) APTT 25.5 (21.0-31.0) Seconds PTT Ratio 0.9 Sodium 135 L (136-145) mmol/L Potassium 4.6 (3.5-5.1) mmol/L Chloride 104 (98-107) mmol/L Carbon Dioxide 23 (21-32) mmol/L Anion Gap 8.0 (3-11) BUN 44 H (7-18) mg/dl Creatinine 4.12 H D (0.6-1.4) mg/dl Est Cr Clr Drug Dosing 13.2 ml/min Est GFR ( Amer) 15.4 Est GFR (Non-Af Amer) 13.3 BUN/Creatinine Ratio 10.7 (10-20) Glucose 114 H (70-99) mg/dl Calcium 8.4 L (8.5-10.1) mg/dl Magnesium 2.0 (1.8-2.4) mg/dl Total Bilirubin 0.4 (0.2-1) mg/dl AST 125 H (15-37) U/L ALT 93 H (12-78) U/L Alkaline Phosphatase 76 (45-117) U/L Troponin I 0.179 H* (0-0.045) ng/ml Total Protein 7.4 (6.4-8.2) gm/dl Albumin 2.7 L (3.4-5.0) gm/dl Globulin 4.7 H (2.5-4.0) gm/dl Albumin/Globulin Ratio 0.6 L (0.9-2) Lipase 873 H (73-393) U/L TSH 1.990 (0.300-4.500) uIu/ml Code Status & VTE Plan Code Status DNR/DNI VTE Prophylaxis Plan VTE Prophylaxis will be ordered: Yes Supervising Physician Co-Signing Physician Notes Pt seen and examined by me. Pt with SOB c/o presentation. No iinterventions in the ED. Pt with sudden onset worsening SOB and noted to be in pulmonary edema. BP elevated. Improved with BIPAP, lasix. Agree with HPI/ROS as noted by PA See above for my exam in PE section Agree with plan as outlined above CXR and CTAP noted for pleural effusions Monitor with lasix Improved with BIPAP Trop elevated, appears chronic Renal fxn stable PA spoke with who might have flu, flu pending BP improved Monitor on tele d/c on 11/25 and felt better at that time with rapid decompensatioin PG Care Time/CCT Total # of Minutes Spent Total Time Spent with Patient: Total time spent is greater than 50% in coordination of care (as documented) at patient's floor/unit and/or counseling patient: Coding Level of Care Code 24391 Initial Inpt Care Lvl 3 Diagnoses Acute respiratory failure with hypoxia J96.01 Acute on chronic diastolic heart failure I50.33 Pulmonary vascular congestion R09.89 Hypertensive urgency I16.0 Elevated lipase R74.8 ESRD on hemodialysis N18.6; Z99.2 Renal artery stenosis I70.1 Elevated troponin R79.89 CAD (coronary artery disease) I25.10 Prolonged QT interval R94.31 Carotid artery stenosis I65.29 Second degree AV block, Mobitz type I I44.1 GERD (gastroesophageal reflux disease) K21.9 Expressive aphasia R47.01 Syncope R55 Syncope type: unspecified Peripheral artery disease I73.9 Macrocytic anemia D53.9 History of CVA with residual deficit I69.30 Seizure disorder G40.909 Hyperlipidemia E78.5 (1) Syncope Syncope type: unspecified Qualified Code(s): R55 - Syncope and collapse
--- NOTE | 2019-11-27 17:37 | Emergency Department Note ---
ED Visit Note The patient was seen and examined with bamat. I agree with the history, physical and findings. Please see the note for disposition and details. Initially the patient was hemodynamically stable. As called to the bedside by PA and nursing after the patient was admitted. The patient was becoming extremely hypertensive, had difficulty breathing, low oxygen saturation. On physical exam the patient rales was in respiratory distress. Patient is a DNR/DNI. Patient was merely started on BiPAP. Repeat EKG was within normal and showed no changes. Chest x-ray done stat showed cardiomegaly with cephalization indicating flash pulmonary edema. Patient was extremely hypertensive with systolic blood pressure greater than 210. Patient was given 1 sublingual nitro. I discussed the case with the hospitalist team who is at bedside. We are going to start the patient on nitro drip. Discussed with ICU. ICU recommended 10 mg of labetalol. Labetalol given. After labetalol, sublingual nitro, and BiPAP the patient's blood pressure normalized. Will hold off on nitro drip at this time and the patient will be admitted to the PCU. I have personally spent greater than 45 minutes of critical care time in the direct management of this patient. This includes bedside care, interpretation of diagnostic studies, and testing, discussion with consultants, patient, and family members, and other required patient management activities. This 45 minutes is in excess of all separately billable procedures. .
[2019-11-27 18:01] LABS: Influenza A virus by PCR Neg for Influ A (Neg); Influenza B virus by PCR Neg for Influ B (Neg)
[2019-11-27] MEDS ORDERED: LEVALBUTEROL HCL 0.63 MG/3 ML NEB NEB PRN (19:38)
[2019-11-27] MEDS ORDERED: NITROGLYCERIN SL 0.4 MG/TAB TAB SL PRN (19:38)
[2019-11-27] MEDS ORDERED: PNEUMOCOCCAL ADMINISTRATION CHARGE ONE (20:42)
[2019-11-27] MEDS ORDERED: PNEUMOCOCCAL POLYSACCHARIDES 25 MCG/0.5 ML VIAL/SYR IM ONE (20:42)
[2019-11-27] MEDS ORDERED: WITCH HAZEL TOP SCH (21:00)
[2019-11-27] MEDS: SEVELAMER HCL 800 MG TABLET PO SCH (21:14)
[2019-11-27] MEDS: DOCUSATE SODIUM 100 MG CAP PO SCH (21:14)
[2019-11-27] MEDS: HEPARIN SOD 5,000 UNIT/0.5 ML VIAL SQ SCH (21:14)
[2019-11-27] MEDS: POLYETHYLENE (MIRALAX) 17 GM PACK PO SCH (21:14)
[2019-11-27] MEDS: METOPROLOL TARTRATE 25 MG TAB PO SCH (21:15)
[2019-11-27] MEDS: levETIRAcetam 500 MG TAB PO SCH (21:15)
[2019-11-28 06:27] LABS: Hematocrit (blood only) 26.7 % (42-52); Hemoglobin 8.4 g/dL (14.0-18.0); Mean Corpuscular Hemoglobin 32.3 pg (25-34); Mean Corpuscular Hgb Conc 31.5 g/dL (32-36); Mean Corpuscular Volume 102.7 fL (80-100); Mean Platelet Volume 9.5 fL (7.4-10.4); Platelet Count 253 K/uL (130-400); RDW Coefficient of Variation 14.9 % (11.5-14.5); RDW Standard Deviation 55.2 fL (36.4-46.3); White Blood Count 6.62 K/uL (4.8-10.8)
[2019-11-28 07:24] LABS: Albumin Globulin Ratio 0.6 (0.9-2); Albumin Level 2.4 gm/dl (3.4-5.0); BUN Creatinine Ratio 11.7 (10-20); Bilirubin,Total 0.4 mg/dl (0.2-1); Calcium 8.3 mg/dl (8.5-10.1); Creatinine Clr Calc Pharmacy 11.1 ml/min; Est GFR (African American) 12.9; Est GFR (Non-African American) 11.1; Globulin 3.9 gm/dl (2.5-4.0); Potassium 5.1 mmol/L (3.5-5.1); Total Protein 6.3 gm/dl (6.4-8.2)
[2019-11-28] MEDS: DOCUSATE SODIUM 100 MG CAP PO SCH ×2 (07:30→21:11)
[2019-11-28] MEDS: CITALOPRAM 20 MG TAB PO SCH (07:30)
[2019-11-28] MEDS: ATORVASTATIN 40 MG TAB PO SCH (07:31)
[2019-11-28] MEDS: CLOPIDOGREL BISULFATE 75 MG TAB PO SCH (07:31)
[2019-11-28] MEDS: NEPHROCAPS PO SCH (07:31)
[2019-11-28] MEDS: ISOSORBIDE MONO EXTENDED REL 60 MG TABCR PO SCH (07:31)
[2019-11-28] MEDS: FAMOTIDINE 10 MG TABLET PO SCH (07:31)
[2019-11-28] MEDS: METOPROLOL TARTRATE 25 MG TAB PO SCH ×2 (07:31→21:12)
[2019-11-28] MEDS: HEPARIN SOD 5,000 UNIT/0.5 ML VIAL SQ SCH ×2 (07:51→21:11)
[2019-11-28 09:14] LABS: Base Excess ABG -0.1 mEq/L (-9-1.8); HCO3 ABG 23 mmol/L (19-24); Oxygen Saturation ABG 95.4 % (90-95); PCO2 ABG 34 mmHg (35-46); PO2 ABG 73 mmHg (80-95); pH ABG 7.46 (7.35-7.45)
[2019-11-28 09:16] LABS: Allen Test Pos (Pos)
--- NOTE | 2019-11-28 09:24 | Hospitalist Progress Note ---
Date of Service November 28, 2019 Assessment & Plan (1) Acute respiratory failure with hypoxia: - Presented with acute respiratory failure following recent admission -- related to flash pulmonary edema - Influenza by PCR is negative ( had flulike symptoms recently) - CXR with congestive failure and mild interstitial edema, no pneumonia-- see below for management of pulmonary edema ABG this morning done for lethargy and shows respiratory alkalosis and hypoxia -Now weaned off BiPAP and on nasal cannula -Went for dialysis today to remove volume (2) Pulmonary vascular congestion: With flash pulmonary edema causing hypoxia on admission requiring BiPAP With congestive failure noted on CXR. - Wght is increased on admission-- 58 kg to 61.5 kg over last 24 hours prior to admission BNP level greater than 35,000 - Monitor daily weights and I/Os. - Received Lasix 40 mg IV in the ER -Now going for dialysis today to remove volume Renal artery duplex with moderate stenosis of the right renal artery and no stenosis of the left renal artery which has a stent in it (3) Hypertensive urgency: - BP >200 on admission secondary to volume overload in the setting of end- stage renal disease Blood pressures now improved after receiving dialysis - Received nitroglycerin SL + Labetalol 10 mg IV with improvement. - Continue home Metoprolol 25 mg BID (recently decreased from 50 mg BID), Imdur 60 mg daily, Amlodipine 10 mg daily as prescribed. (4) Elevated lipase: - Lipase level 873 upon admission and is now improved down to 500; CT A/P was negative for pancreatitis. Difficult to say if he has abdominal pain but does not seem tender on examination Nonspecific elevation (5) ESRD on hemodialysis: - Currently receives HD [id number]. - Nephrology consulted. - Renally dose all meds. - Continue home medications of Nephrocaps and Renagel Dialysis today (6) Renal artery stenosis: - Monitored; s/p left renal artery stenting in Sep 2019. Renal artery duplex as above without stenosis on the left and with moderate on the right (7) Elevated troponin: - Trop level peaked at 0.459 during last admission. - Level was 0.179 -- likely chronically elevated in setting of ESRD and improved from previous. - No indication for further monitoring; EKG was negative on admission. (8) CAD (coronary artery disease): - Echo on 11/17/19 showed EF 50-55%, hypokinesis of inferoposterior wall. - Continue home statin, plavix, imdur, metoprolol, amlodipine as prescribed. - S/p CABG in the past. (9) Prolonged QT interval: - QTc was 550 during the last admission. - QTc of 460 in the ER. - Avoid QT prolonging meds if possible. (10) Carotid artery stenosis: - L carotid artery stenosis - did not likely contribute to previous syncope. - Carotid doppler with >70% left ICA stenosis. H/o bilateral carotid endarterectomies. - Continue Plavix/statin as prescribed. - Cardiology and neurology did not recommend intervention. (11) Second degree AV block, Mobitz type I: - Noted on tele during last admission and some now -Follow on telemetry (12) GERD (gastroesophageal reflux disease): - Famotidine as inpatient. (13) Expressive aphasia: - Chronic, currently at baseline. (14) Syncope: - Recently admitted from 11/23-11/25 for syncopal episode during HD; also had syncope on 11/16 during HD. - Possibly related to DDS (per neuro) vs. vasovagal due to straining from constipation. - Fall precautions; consider PT/OT evaluation. (15) Peripheral artery disease: - Continue Plavix/statin as prescribed. (16) Macrocytic anemia: - History of, H/H stable. - Monitor CBC intermittently. (17) History of CVA with residual deficit: - Residual R foot drop and RUE weakness, mild aphasia. - Continue home Plavix/statin. (18) Seizure disorder: - Recently converted Dilantin to Keppra qSunMWF per neuro due to subtherapeutic Dilantin levels in setting of HD. Pt. should receive Keppra 24 hours after HD sessions. - Will need Keppra level in 5 days (prior to HD) -- see consult note from last admission. - Questionable seizure activity during syncopal episodes. (19) Depression: Continue citalopram 10 mg daily (20) Hyperlipidemia: - Continue statin. DVT ppx: SCDs; Heparin BID. Dispo: PCU tele; please call family, including , son and daughter, if patient clinically deteriorates. His was updated with plan of care today Admission and Anticipated Discharge Date Admission Date: November 27, 2019 Subjective RN reports patient was very difficult to arouse this morning even with sternal rub. I ordered an ABG which showed respiratory alkalosis and he had been on BiPAP all night. When I went to see him right after the ABG, he was much more alert but was not as conversive as his baseline is which is usually 1 word answers. He could not tell me anything and would not answer any of my questions but did stare at me and look around the room. He was also bladder scanned for 500 mL's of urine, apparently was attempted to be straight cathed last night but was unsuccessful. I ordered a Ferrara catheter this morning and the nurse successfully placed it with only 250 mL's of urine returned Telemetry with sinus bradycardia, Mobitz type I, PACs and PAC couplets, rates dipped into the high 30s up to the 80s I discussed the patient's status with his on the phone. She reports that he normally does not talk much at all and that his biggest symptom on the day of presentation was shortness of breath. She herself is having flulike symptoms and feeling unwell at home. Review of Systems Review of Systems: Unobtainable due to cognitive status Physical Exam Constitutional: + ill appearing (Chronically ill-appearing, lethargic but does wake up but won't speak) and average body habitus; no acute distress Eyes: + anicteric sclerae Neck: trachea midline, no thyromegaly Respiratory: normal respiratory effort Auscultation: + crackles (Bibasil ar); no wheezes Cardiovascular: RRR, no murmur, no edema Chest (Breasts): Chest: normal inspection of chest Gastrointestinal (Abdomen): normal bowel sounds, soft, nontender, no hepatosplenomegaly Musculoskeletal: Extremities: extremities normal to inspection; no cyanosis and no clubbing Skin: no rashes, warm and dry Neurologic: moves all extremities and awake; no focal motor deficits Psychiatric: Orientation: alert Speech: + mute Affect: + flat affect Lymphatic: no lymphedema Results & Data ([facility]) Vital Signs (Past 12 Hours) Vital Signs Temp Pulse Pulse Resp BP Pulse Ox 11/28/19 09:16 60 171/84 H 95 11/28/19 07:25 50 L 22 99 11/28/19 07:05 36.5 C 68 17 109/73 100 11/28/19 04:30 36.7 C 66 19 169/94 H 97 11/28/19 03:53 67 17 100 11/27/19 23:13 47 L 19 98 11/27/19 22:53 36.5 C 61 22 163/92 H 100 11/27/19 22:12 73 18 100 Laboratory Results 11/28/19 11/28/19 11/28/19 Range/Units Unknown 09:00 05:55 WBC (4.8-10.8) K/uL RBC (4.7-6.1) M/uL Hgb (14.0-18.0) g/dL Hct (42-52) % MCV (80-100) fL MCH (25-34) pg MCHC (32-36) g/dL RDW Std Deviation (36.4-46.3) fL RDW Coeff of Shayy (11.5-14.5) % Plt Count (130-400) K/uL MPV (7.4-10.4) fL ABG pH 7.46 H (7.35-7.45) ABG pCO2 34 L (35-46) mmHg ABG pO2 73 L (80-95) mmHg ABG HCO3 23 (19-24) mmol/L ABG O2 Saturation 95.4 H (90-95) % ABG Base Excess -0.1 (-9-1.8) mEq/L Sonny Test Pos (Pos) Barometric Pressure 741.1 mm/Hg Oxygen Given 21% Sodium 139 (136-145) mmol/L Potassium 5.1 (3.5-5.1) mmol/L Chloride 106 (98-107) mmol/L Carbon Dioxide 25 (21-32) mmol/L Anion Gap 8.0 (3-11) BUN 56 H (7-18) mg/dl Creatinine 4.78 H* D (0.6-1.4) mg/dl Est Cr Clr Drug Dosing 11.1 ml/min Est GFR ( Amer) 12.9 Est GFR (Non-Af Amer) 11.1 BUN/Creatinine Ratio 11.7 (10-20) Glucose 102 H (70-99) mg/dl Calcium 8.3 L (8.5-10.1) mg/dl Total Bilirubin 0.4 (0.2-1) mg/dl AST 95 H (15-37) U/L ALT 78 (12-78) U/L Alkaline Phosphatase 62 (45-117) U/L Total Protein 6.3 L (6.4-8.2) gm/dl Albumin 2.4 L (3.4-5.0) gm/dl Globulin 3.9 (2.5-4.0) gm/dl Albumin/Globulin Ratio 0.6 L (0.9-2) Lipase 511 H (73-393) U/L Urine Color Yellow Urine Appearance Clear (Clear) Urine pH 7.5 (4.5-7.5) Ur Specific [place] 1.011 (1.000-1.030) Urine Protein 2+ H (Negative) Urine Glucose (UA) Negative (Negative) Urine Ketones Negative (Negative) Urine Blood 2+ H (Negative) Urine Nitrite Negative (Negative) Urine Bilirubin Negative (Negative) Urine Urobilinogen Negative (Negative) Ur Leukocyte Esterase Negative (Negative) Urine WBC (Auto) 1-5 (0-5) /hpf Urine RBC (Auto) 0-4 (0-4) /hpf U Hyaline Cast (Auto) 0 (0-5) /lpf U Epithel Cells (Auto) 10-20 H (0-5) /lpf Urine Bacteria (Auto) Negative (Negative) Nasal Screen MRSA (PCR) (Negative) 11/28/19 11/27/19 Range/Units 05:55 20:20 WBC 6.62 (4.8-10.8) K/uL RBC 2.60 L (4.7-6.1) M/uL Hgb 8.4 L (14.0-18.0) g/dL Hct 26.7 L (42-52) % MCV 102.7 H (80-100) fL MCH 32.3 (25-34) pg MCHC 31.5 L (32-36) g/dL RDW Std Deviation 55.2 H (36.4-46.3) fL RDW Coeff of Shayy 14.9 H (11.5-14.5) % Plt Count 253 (130-400) K/uL MPV 9.5 (7.4-10.4) fL ABG pH (7.35-7.45) ABG pCO2 (35-46) mmHg ABG pO2 (80-95) mmHg ABG HCO3 (19-24) mmol/L ABG O2 Saturation (90-95) % ABG Base Excess (-9-1.8) mEq/L Sonny Test (Pos) Barometric Pressure mm/Hg Oxygen Given Sodium (136-145) mmol/L Potassium (3.5-5.1) mmol/L Chloride (98-107) mmol/L Carbon Dioxide (21-32) mmol/L Anion Gap (3-11) BUN (7-18) mg/dl Creatinine (0.6-1.4) mg/dl Est Cr Clr Drug Dosing ml/min Est GFR ( Amer) Est GFR (Non-Af Amer) BUN/Creatinine Ratio (10-20) Glucose (70-99) mg/dl Calcium (8.5-10.1) mg/dl Total Bilirubin (0.2-1) mg/dl AST (15-37) U/L ALT (12-78) U/L Alkaline Phosphatase (45-117) U/L Total Protein (6.4-8.2) gm/dl Albumin (3.4-5.0) gm/dl Globulin (2.5-4.0) gm/dl Albumin/Globulin Ratio (0.9-2) Lipase (73-393) U/L Urine Color Urine Appearance (Clear) Urine pH (4.5-7.5) Ur Specific [place] (1.000-1.030) Urine Protein (Negative) Urine Glucose (UA) (Negative) Urine Ketones (Negative) Urine Blood (Negative) Urine Nitrite (Negative) Urine Bilirubin (Negative) Urine Urobilinogen (Negative) Ur Leukocyte Esterase (Negative) Urine WBC (Auto) (0-5) /hpf Urine RBC (Auto) (0-4) /hpf U Hyaline Cast (Auto) (0-5) /lpf U Epithel Cells (Auto) (0-5) /lpf Urine Bacteria (Auto) (Negative) Nasal Screen MRSA (PCR) Negative (Negative) PG Care Time/CCT Total # of Minutes Spent Total Time Spent with Patient: Total time spent is greater than 50% in coordination of care (as documented) at patient's floor/unit and/or counseling patient: Coding Level of Care Code 19200 Subseq Hosp Care Lvl 3 Diagnoses Acute respiratory failure with hypoxia J96.01 Pulmonary vascular congestion R09.89 Hypertensive urgency I16.0 Elevated lipase R74.8 ESRD on hemodialysis N18.6; Z99.2 Renal artery stenosis I70.1 Elevated troponin R79.89 CAD (coronary artery disease) I25.10 Prolonged QT interval R94.31 Carotid artery stenosis I65.29 Second degree AV block, Mobitz type I I44.1 GERD (gastroesophageal reflux disease) K21.9 Expressive aphasia R47.01 Syncope R55 Syncope type: unspecified Peripheral artery disease I73.9 Macrocytic anemia D53.9 History of CVA with residual deficit I69.30 Seizure disorder G40.909 Depression F32.9 Hyperlipidemia E78.5 (1) Syncope Syncope type: unspecified Qualified Code(s): R55 - Syncope and collapse
[2019-11-28] MEDS: SEVELAMER HCL 800 MG TABLET PO SCH ×2 (10:58→16:04)
[2019-11-28 11:21] LABS: Appearance Urine Clear (Clear); Bacteria Urine Automated Negative (Negative); Bilirubin Urine Negative (Negative); Blood Urine 2+ (Negative); Cast Urine Automated 0 /lpf (0-5); Color Urine Yellow; Glucose Urine UA Negative (Negative); Ketones Urine Negative (Negative); Leukocyte Esterase Urine Negative (Negative); Nitrite Urine Negative (Negative); RBC Urine Automated 0-4 /hpf (0-4); Specific Gravity Urine 1.011 (1.000-1.030); Urobilinogen Urine Negative (Negative); pH Urine 7.5 (4.5-7.5)
[2019-11-28 11:32] LABS: Protein Urine 2+ (Negative); Sulfosalicylic Acid Urine Positive (Negative)
[2019-11-28] MEDS ORDERED: HEPARIN SOD (PORCINE) 1000 UNIT/ML IV ONE (11:36)
[2019-11-28] MEDS ORDERED: SODIUM CHLORIDE 0.9% 1000ML 1,000 ML IV PRN (11:36)
--- NOTE | 2019-11-28 11:47 | Electrocardiogram Report ---
Test Reason : Blood Pressure : / mmHG Vent. Rate : 119 BPM Atrial Rate : 117 BPM P-R Int : 000 ms QRS Dur : 106 ms QT Int : 330 ms P-R-T Axes : 000 010 050 degrees QTc Int : 464 ms Accelerated Junctional rhythm with retrograde conduction Nonspecific ST abnormality Abnormal ECG When compared with ECG of 27-NOV-2019 13:39, Junctional rhythm has replaced Sinus rhythm T wave inversion no longer evident in Lateral leads HR has increased by 31 bpm Confirmed by Nguyễn Pressley ([id number]) on 11/28/2019 11:46:34 AM Referred By: REFERRED SELF Confirmed By:Nguyễn Pressley
--- NOTE | 2019-11-28 14:20 | Nephrology Consultation ---
Date of Consultation November 28, 2019 Assessment & Plan (1) ESRD on hemodialysis: -- Will provide 3 hours HD today and attempt 2 L UF -- Recheck PRP in am (2) Flash pulmonary edema: -- Abdominal CT films reviewed. Significant renal arterial athero sclerosis noted. h/o L RA stent. Question whether patient has progressive ALCON resulting in flash pulmonary edema. Will order renal duplex -- If significant ALCON may need to consider ELIN/ARB vs PTRA (3) Seizure disorder: -- On Keppra as per Neurology History of Present Illness Reason for Consultation: ESRD on IHD Attending Physician: Deedee Lugo MD History of Present Illness Mr. Mata is a 74 year old white male who is seen at the request of Dr. Lugo to provide inpatient HD. Medical records in the EMR were reviewed today and are summarized as follows: Mr. Mata has ESRD presumed to be due to vascular disease. He underwent R IJ THC insertion 11/16 and was started on HD. His initial treatment was complicated by a syncopal event. Family reports that Mr. Mata suffers from constipation and has a painful external hemorrhoid. During his initial treatment he needed to move his bowels. While on the bedpan he became unresponsive and code blue was called. Mr. Mata quickly regained consciousness and had no further neurologic events during his hospitalization. Mr. Mata had his first outpatient HD treatment at [facility] 11/21/19 without complication. On 11/24/19 he presented for his routine TTS treatment. 3 hours into his treatment he was noted to be unresponsive. hourly sales staff reports that SBP was ~ 160 mm Hg. Saline was administered and he regained consciousness. A few minutes later Mr. Mata had a second episode. He was evaluated by Dr. Maxwell and noted to be unresponsive but hemodynamically stable. He was witnessed to have mild dystonia or twitching of his extremities. Dialysis was held, patient again recovered consciousness and was transferred to ED for evaluation. He was hospitalized 11/24/19 - 11/26/19 and was found to have subtherapeutic Phenytoin level. Neurology was consulted and Phenytoin was changed to Keppra. Mr. Mata was readmitted yesterday evening following another event where he was poorly responsive. In the ED this time he was noted to develop hypertensive urgency and flash pulmonary edema. He required BiPAP overnight. This morning Mr. Mata was evaluated in his hospital room. No family was present. He would awaken to voice but remained nonverbal and would not follow commands. He was not in respiratory distress. O2 sat was 100% at 1L/min NC. CXR reveals only mild CHF. PMH: CVA w/ expressive aphasia, seizure d/o (on Keppra therapy), prolonged QTc, ALCON s/p L renal artery stent, HTN, hyperlipidemia, ASCVD s/p CABG, PVD w/ iliofemoral bypass, nursing home tobacco use Allergies Allergy/AdvReac Type Severity Reaction Status Date / Time adhesive Allergy Unknown BLISTERING Verified 11/27/19 13:48 OF SKIN latex Allergy Rash Verified 11/27/19 13:48 Home Medications Home Medications Medication Instructions Recorded Confirmed Type atorvastatin 80 mg tablet 80 mg PO DAILY #90 tab 03/11/19 11/27/19 Rx clopidogrel 75 mg tablet 75 mg PO DAILY #90 tab 03/11/19 11/27/19 Rx nitroglycerin 0.4 mg sublingual 0.4 mg SL .PRN/UD PRN #25 tab 03/11/19 11/27/19 History tablet citalopram 10 mg tablet 10 mg PO DAILY #30 tab 07/08/19 11/27/19 Rx amlodipine 10 mg tablet 10 mg PO DAILY #90 tab 07/28/19 11/27/19 Rx calcitriol 0.25 mcg PO 3XWK 10/14/19 11/27/19 History ranitidine HCl 150 mg tablet 150 mg PO BID #180 tab 11/10/19 11/27/19 Rx isosorbide mononitrate 60 mg 60 mg PO DAILY #30 tab 11/11/19 11/27/19 Rx tablet,extended release 24 hr witch balta 50 % topical pads 1 pad TOP BID #100 ea 11/16/19 11/27/19 Rx Renal Caps 1 cap PO QAM #30 cap 11/20/19 11/27/19 Rx sevelamer HCl [Renagel] 800 mg PO BID@1130,1700 #60 tab 11/20/19 11/27/19 Rx docusate sodium [Stool Softener] 100 mg PO BID #0 cap 11/26/19 11/27/19 Rx levetiracetam [Keppra] 500 mg PO SuMoWeFr@1600 #16 tab 11/26/19 11/27/19 Rx metoprolol tartrate 25 mg PO BID #60 tab 11/26/19 11/27/19 Rx polyethylene glycol 3350 [Miralax] 17 gm PO Q OTHER DAY 11/27/19 11/27/19 History Patient History Medical History Arteriosclerotic cardiovascular disease (Acute) Benign prostatic hyperplasia (Acute) Carotid artery stenosis s/p remote R & L endarterectomies with L re-occlusion sometime before 2010 Congestive heart failure (CHF) (Acute) Diabetic peripheral neuropathy (Acute) Esophageal reflux (Acute) 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 Hyperlipidemia (Chronic) Seizure disorder (Chronic) SNHL (sensorineural hearing loss) (Acute) Type 2 DM with CKD stage 3 and hypertension Surgical History History of aorto-femoral bypass History of bypass graft (non vein) Aortic-femoral or bifemoral History of esophagogastroduodenoscopy (EGD) S/P CABG (coronary artery bypass graft) (2007) Family History Brother Hypertension Hypercholesteremia Sister Diabetes Unknown Hypertension Cardiac disorder Social History Preferred Language: [place] Communication Ability: Effective Communication Ability Comment: information provided by - states he has communication needs [employer]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 2 packs per day for 40 years. ; Do You Dip or Chew Tobacco: No ; Second Hand Exposure: No ; Tobacco Cessation Education Requested by Patient: No Hx Alcohol Use: No Hx Substance Use: No caffeine: No Seatbelt Use: always Review of Systems Review of Systems: Unobtainable due to cognitive status Physical Exam Constitutional: + ill appearing Eyes: PERRL, conjunctivae normal, anicteric sclerae Neck: trachea midline, no thyromegaly R IJ THC with clean dry dressing in place Respiratory: Auscultation: + rales Cardiovascular: Rate/Rhythm: regular rate and regular rhythm Extremities: no edema Gastrointestinal (Abdomen): normal bowel sounds, soft, nontender, no hepatosplenomegaly Neurologic: Cranial Nerves: PERRL Results & Data Vital Signs (Past 12 Hours) Vital Signs Temp Pulse Pulse Pulse Resp BP Pulse Ox 11/28/19 12:03 36.2 C L 65 19 158/88 H 100 11/28/19 09:42 59 L 164/80 H 11/28/19 09:16 60 171/84 H 95 11/28/19 07:25 50 L 22 99 11/28/19 07:05 36.5 C 68 17 109/73 100 11/28/19 04:30 36.7 C 66 19 169/94 H 97 11/28/19 03:53 67 17 100 Laboratory Tests 11/28/19 11/28/19 05:55 05:55 WBC 6.62 Hgb 8.4 L Hct 26.7 L Plt Count 253 Sodium 139 Potassium 5.1 Chloride 106 Carbon Dioxide 25 BUN 56 H Creatinine 4.78 H* D Glucose 102 H CXR 11/28/19: The cardiac and mediastinal contours remain stable. Heart is mildly enlarged. There are postsurgical changes of midline sternotomy. There is a right internal jugular dual-lumen central venous catheter unchanged in position. There is radiographic evidence of congestive failure with interstitial edema. This appears slightly progressive. Trace pleural effusions are suspected. ABD CT 11/27/19: 1. Moderate bilateral pleural effusions with bibasilar passive atelectasis and venolymphatic congestive changes at the lung bases. This is unchanged from prior. 2. Renal atrophy, right greater than left. 3. Chronic bladder outlet obstruction secondary to prostatomegaly. 4. Diverticulosis coli. No diverticulitis. 5. Aortobifemoral bypass grafting in the setting of severe atherosclerotic disease. 6. Stable bilateral common femoral artery aneurysms. PG Care Time/CCT Total # of Minutes Spent Total Time Spent with Patient: Total time spent is greater than 50% in coordination of care (as documented) at patient's floor/unit and/or counseling patient: Coding Level of Care Code 20060 Inpt Consult Level 5 Diagnoses ESRD on hemodialysis N18.6; Z99.2 Flash pulmonary edema J81.0 Seizure disorder G40.489
[2019-11-28] MEDS: amLODIPine BESYLATE 5 MG TAB PO SCH (16:04)
--- NOTE | 2019-11-28 20:42 | Ultrasound Report ---
DOPPLER ULTRASOUND OF THE RENAL ARTERIES CLINICAL HISTORY: Hypertension. COMPARISON STUDY: None TECHNIQUE: Doppler sonography of the renal arteries was performed to assess renal artery stenosis. Im ages are reviewed in the transverse and longitudinal planes. FINDINGS: The kidneys appear atrophic. No evidence for hydronephrosis.. On the right, intrarenal arterial resistive could not be obtained due to patient motion. The right re nal arterial waveform is normal, and velocities within the right renal artery measure up to 75 cm/sec . The right renal vein is patent. On the left, intrarenal arterial resistive indices could not be obtained due to respiratory motion. T he abdominal aorta is patent. Velocities within the abdominal aorta measure up to 81 cm/s. Velocities in the proximal right renal artery extending to 175 cm/s IMPRESSION: 1. Renal atrophy. 2.. Moderate stenosis proximal right renal artery. 3. No significant stenosis of the left renal arterial supply ACT 112: Negative or not required by law. The above report was generated using voice recognition software. It may contain grammatical, syntax or spelling errors. Electronically signed by: Beto Tovar M.D. 11/28/2019 8:40 PM
[2019-11-29] MEDS: FAMOTIDINE 10 MG TABLET PO SCH (07:35)
[2019-11-29] MEDS: METOPROLOL TARTRATE 25 MG TAB PO SCH ×2 (07:35→20:47)
[2019-11-29] MEDS: ISOSORBIDE MONO EXTENDED REL 60 MG TABCR PO SCH (07:36)
[2019-11-29] MEDS: NEPHROCAPS PO SCH (07:36)
[2019-11-29] MEDS: CITALOPRAM 20 MG TAB PO SCH (07:38)
[2019-11-29] MEDS: CLOPIDOGREL BISULFATE 75 MG TAB PO SCH (07:39)
[2019-11-29] MEDS: HEPARIN SOD 5,000 UNIT/0.5 ML VIAL SQ SCH ×2 (07:39→20:48)
[2019-11-29] MEDS: ATORVASTATIN 40 MG TAB PO SCH (07:39)
[2019-11-29] MEDS: DOCUSATE SODIUM 100 MG CAP PO SCH ×2 (07:40→20:46)
[2019-11-29 07:50] LABS: BUN Creatinine Ratio 9.8 (10-20); Calcium 8.3 mg/dl (8.5-10.1); Creatinine Clr Calc Pharmacy 14.9 ml/min; Est GFR (African American) 17.9; Est GFR (Non-African American) 15.5; Potassium 5.7 mmol/L (3.5-5.1)
[2019-11-29] MEDS ORDERED: FUROSEMIDE 80 MG in SYRINGE 0 ML IV ONE ×2 (10:20→10:30)
--- NOTE | 2019-11-29 10:27 | Nephrology Progress Note ---
Date of Service November 29, 2019 Assessment & Plan (1) ESRD on hemodialysis: -- Mild hyperkalemia despite HD yesterday. Primary service to provide 30 g Kayexelate po this am. Patient is nonoliguric. Will provide one dose Furosemide 80 mg IV -- Recheck PRP in am -- Will schedule HD in am: 3 hr 2K 2Ca 1 L UF (2) Flash pulmonary edema: -- Abdominal CT films reviewed. Significant renal arterial atherosclerosis noted. h/o L RA stent. Renal artery doppler 11/27 negative for significant ALCON -- Once hyperkalemia is corrected, will consider ELIN/ARB for BP control and to reduce incidence of flash pulmonary edema (3) Seizure disorder: -- On Keppra as per Neurology Subjective Mr. Mata was seen & examined in his hospital room this morning. He was alert and in no distress. Mr. Mata was dialyzed for 2 hr 45 min yesterday. HD was cut 15 min short due to hypotension. 2.4L UF obtained. Review of Systems Review of Systems: Unobtainable due to cognitive status Physical Exam Constitutional: + frail appearing Eyes: PERRL, conjunctivae normal, anicteric sclerae Neck: trachea midline, no thyromegaly Respiratory: Auscultation: lungs clear to auscultation bilaterally Cardiovascular: Rate/Rhythm: regular rate and regular rhythm Extremities: no edema Gastrointestinal (Abdomen): normal bowel sounds, soft, nontender, no hepatosplenomegaly Neurologic: Cranial Nerves: PERRL Results & Data Vital Signs (Past 12 Hours) Vital Signs Temp Pulse Pulse Pulse Resp BP Pulse Ox 11/29/19 08:29 94 11/29/19 07:56 37.0 C 83 17 147/76 H 93 11/29/19 02:59 36.9 C 67 17 162/73 H 99 11/29/19 00:14 88 11/28/19 23:26 37.3 C 60 18 145/67 H 97 Laboratory Tests 11/29/19 06:32 Sodium 137 Potassium 5.7 H Chloride 105 Carbon Dioxide 24 BUN 36 H Creatinine 3.64 H D Glucose 105 H PG Care Time/CCT Total # of Minutes Spent Total Time Spent with Patient: Total time spent is greater than 50% in coordination of care (as documented) at patient's floor/unit and/or counseling patient: Coding Level of Care Code 89679 Subseq Hosp Care Lvl 3 Diagnoses ESRD on hemodialysis N18.6; Z99.2 Flash pulmonary edema J81.0 Seizure disorder G40.909
[2019-11-29] MEDS ORDERED: SODIUM POLYSTYRENE SULFONATE 15G/60ML SUSP PO STA (10:55)
[2019-11-29] MEDS: SEVELAMER HCL 800 MG TABLET PO SCH ×2 (11:02→16:43)
--- NOTE | 2019-11-29 11:04 | Hospitalist Progress Note ---
Date of Service November 29, 2019 Assessment & Plan (1) Acute respiratory failure with hypoxia: - Presented with acute respiratory failure following recent admission -- related to flash pulmonary edema - Influenza by PCR is negative ( currently has flu-like symptoms) - CXR with congestive failure and mild interstitial edema, no pneumonia-- see below for management of pulmonary edema ABG done for lethargy on the a.m. of 11/27 shows respiratory alkalosis and hypoxia -Initially was requiring BiPAP and has since been weaned to room air after hemodialysis to remove volume on 11/27 Continues on room air today and doing very well (2) Pulmonary vascular congestion: With flash pulmonary edema causing hypoxia on admission requiring BiPAP With congestive failure noted on CXR. - Weight is increased on admission-- 58 kg to 61.5 kg over last 24 hours prior to admission -BNP level greater than 35,000 - Monitor daily weights and I/Os. - Received Lasix 40 mg IV in the ER -He underwent dialysis on 11/27 to remove volume -IV Lasix 80 mg x 1 given by nephrology on 11/28 Renal artery duplex with moderate stenosis of the right renal artery and no stenosis of the left renal artery which has a stent in it-therefore no acute renal artery stenosis as cause of flash pulmonary edema Now much improved as above (3) Hypertensive urgency: - BP >200 on admission secondary to volume overload in the setting of end-stage renal disease Received nitroglycerin SL + Labetalol 10 mg IV with mild improvement Blood pressures now significantly improved after receiving dialysis on 11/27 - Continue home Metoprolol 25 mg BID (recently decreased from 50 mg BID on previous admission), and continue Imdur 60 mg daily, Amlodipine 10 mg daily as prescribed. (4) Elevated lipase: - Lipase level 873 upon admission and is now improved down to 500; CT A/P was negative for pancreatitis. No abdominal pain on examination and is tolerating p.o. just fine Nonspecific elevation (5) ESRD on hemodialysis: - Currently receives HD qTuesThursSat as an outpatient. - Nephrology consulted. - Renally dose all meds. - Continue home medications of Nephrocaps and Renagel Dialysis on 11/27 and will plan for again on 11/29 (6) Renal artery stenosis: - Monitored; s/p left renal artery stenting in Sep 2019. Renal artery duplex as above without stenosis on the left and with moderate on the right (7) Elevated troponin: - Trop level peaked at 0.459 during last admission. - Level was 0.179 -- likely chronically elevated in setting of ESRD and improved from previous. - No indication for further monitoring; EKG was negative on admission. (8) CAD (coronary artery disease): - Echo on 11/17/19 showed EF 50-55%, hypokinesis of inferoposterior wall. - Continue home statin, plavix, imdur, metoprolol, amlodipine as prescribed. - S/p CABG in the past. (9) Prolonged QT interval: - QTc was 550 during the last admission. - QTc of 460 in the ER. - Avoid QT prolonging meds if possible. (10) Carotid artery stenosis: - L carotid artery stenosis - did not likely contribute to previous syncope. - Carotid doppler with >70% left ICA stenosis. H/o bilateral carotid endarterectomies. - Continue Plavix/statin as prescribed. - Cardiology and neurology did not recommend intervention. (11) Second degree AV block, Mobitz type I: - Noted on tele during last admission and again now -Follow on telemetry -No intervention needed (12) GERD (gastroesophageal reflux disease): - Famotidine as inpatient. (13) Expressive aphasia: - Chronic, currently at baseline. (14) Syncope: - Recently admitted from 11/23-11/25 for syncopal episode during HD; also had syncope on 11/16 during HD. - Possibly related to DDS (per neuro) vs. vasovagal due to straining from constipation. - Fall precautions; consider PT/OT evaluation. (15) Peripheral artery disease: - Continue Plavix/statin as prescribed. (16) Macrocytic anemia: - History of, H/H stable. - Monitor CBC intermittently. -Given IV erythropoietin today (17) History of CVA with residual deficit: - Residual R foot drop and RUE weakness, mild aphasia. - Continue home Plavix/statin. (18) Seizure disorder: - Recently converted Dilantin to Keppra qSunMWF per neuro due to subtherapeutic Dilantin levels in setting of HD. Pt. should receive Keppra 24 hours after HD sessions. - Will need Keppra level in 4 more days (prior to HD) -- see consult note from last admission. - Questionable seizure activity during syncopal episodes. (19) Depression: Continue citalopram 10 mg daily (20) Hyperkalemia: Potassium 5.7 on morning labs today Was given Kayexalate 30 g p.o. x1 and 80 mg IV of Lasix He had 2 massive bowel movements all over the bed on 11/28 Repeat BMP this afternoon with potassium down to 4.1 -Change diet to low potassium diet (21) Rectal bleeding: At home, small amount, just prior to admission -advised to increase Miralax to daily and docusate to bid (she was only giving this once daily) None observed here so far -Constipation now resolved after giving kayexolate -We will continue to monitor (22) Hyperlipidemia: - Continue statin. DVT ppx: SCDs; Heparin BID. Dispo: Continued stay on PCU tele; please call family, including , son and daughter, if patient clinically deteriorates. His was updated with plan of care today Plan for dialysis again on 11/29-could potentially discharge to home the day after that as he tends to get very hypotensive with dialysis Admission and Anticipated Discharge Date Admission Date: November 27, 2019 Anticipated date of discharge: 12/01/19 Subjective Patient doing significantly better today. He is much more awake and alert, responding to questions with 1 or 2 word answers which is apparently his baseline. He is eating all of his meals. He does report a mild headache by pointing to his head when asked if he has any pain. Blood pressures are significantly improved. I discussed his case with nephrology on the phone today. Telemetry with Mobitz type I, sinus rhythm and PVCs with rates in the 60s to 80s When I spoke to the patient's later in the day on the phone, she reported that the patient has had some rectal bleeding at home after straining to have a bowel movement after discharge last time. He has not had any bright red blood per rectum since admission here. Review of Systems Review of Systems: Unobtainable due to cognitive status (But no bowel movement in several days as per ) Physical Exam Constitutional: average body habitus; no acute distress, not ill appearing and not lethargic Eyes: + anicteric sclerae Neck: trachea midline, no thyromegaly Respiratory: normal respiratory effort, lungs clear to auscultation Cardiovascular: RRR, no murmur, no edema Chest (Breasts): Chest: normal inspection of chest Gastrointestinal (Abdomen): normal bowel sounds, soft, nontender, no hepatosplenomegaly Musculoskeletal: Extremities: extremities normal to inspection; no cyanosis and no clubbing Skin: no rashes, warm and dry Neurologic: moves all extremities and awake Speech / Cognition: + expressive aphasia Psychiatric: Orientation: alert Lymphatic: no lymphedema Results & Data ([facility]) Vital Signs (Past 12 Hours) Vital Signs Temp Pulse Pulse Pulse Resp BP Pulse Ox 11/29/19 08:29 94 11/29/19 07:56 37.0 C 83 17 147/76 H 93 11/29/19 02:59 36.9 C 67 17 162/73 H 99 11/29/19 00:14 88 11/28/19 23:26 37.3 C 60 18 145/67 H 97 Laboratory Results 11/29/19 11/29/19 Range/Units 15:53 06:32 Sodium 137 137 (136-145) mmol/L Potassium 4.1 D 5.7 H (3.5-5.1) mmol/L Chloride 105 105 (98-107) mmol/L Carbon Dioxide 25 24 (21-32) mmol/L Anion Gap 7.0 8.0 (3-11) BUN 41 H 36 H (7-18) mg/dl Creatinine 4.28 H D 3.64 H D (0.6-1.4) mg/dl Est Cr Clr Drug Dosing 12.6 14.9 ml/min Est GFR ( Amer) 14.8 17.9 Est GFR (Non-Af Amer) 12.7 15.5 BUN/Creatinine Ratio 9.6 L 9.8 L (10-20) Glucose 143 H 105 H (70-99) mg/dl Calcium 8.3 L 8.3 L (8.5-10.1) mg/dl PG Care Time/CCT Total # of Minutes Spent Total Time Spent with Patient: Total time spent is greater than 50% in coordination of care (as documented) at patient's floor/unit and/or counseling patient: Coding Level of Care Code 04278 Subseq Hosp Care Lvl 3 Diagnoses Acute respiratory failure with hypoxia J96.01 Pulmonary vascular congestion R09.89 Hypertensive urgency I16.0 Elevated lipase R74.8 ESRD on hemodialysis N18.6; Z99.2 Renal artery stenosis I70.1 Elevated troponin R79.89 CAD (coronary artery disease) I25.10 Prolonged QT interval R94.31 Carotid artery stenosis I65.29 Second degree AV block, Mobitz type I I44.1 GERD (gastroesophageal reflux disease) K21.9 Expressive aphasia R47.01 Syncope R55 Syncope type: unspecified Peripheral artery disease I73.9 Macrocytic anemia D53.9 History of CVA with residual deficit I69.30 Seizure disorder G40.909 Depression F32.9 Hyperkalemia E87.5 Rectal bleeding K62.5 Hyperlipidemia E78.5 (1) Syncope Syncope type: unspecified Qualified Code(s): R55 - Syncope and collapse
[2019-11-29] MEDS: ACETAMINOPHEN 325 MG TAB PO PRN (11:08)
[2019-11-29] MEDS: levETIRAcetam 500 MG TAB PO SCH (15:32)
[2019-11-29] MEDS: amLODIPine BESYLATE 5 MG TAB PO SCH (15:32)
[2019-11-29 16:25] LABS: BUN Creatinine Ratio 9.6 (10-20); Calcium 8.3 mg/dl (8.5-10.1); Creatinine Clr Calc Pharmacy 12.6 ml/min; Est GFR (African American) 14.8; Est GFR (Non-African American) 12.7; Potassium 4.1 mmol/L (3.5-5.1)
[2019-11-29] MEDS: POLYETHYLENE (MIRALAX) 17 GM PACK PO SCH (20:46)
[2019-11-30] MEDS ORDERED: SODIUM CHLORIDE 0.9% 1000ML 1,000 ML IV PRN (07:00)
[2019-11-30] MEDS ORDERED: HEPARIN SOD (PORCINE) 1000 UNIT/ML IV ONE (07:00)
[2019-11-30 07:04] LABS: Hematocrit (blood only) 30.8 % (42-52); Hemoglobin 9.8 g/dL (14.0-18.0); Mean Corpuscular Hemoglobin 32.2 pg (25-34); Mean Corpuscular Hgb Conc 31.8 g/dL (32-36); Mean Corpuscular Volume 101.3 fL (80-100); Mean Platelet Volume 9.6 fL (7.4-10.4); Platelet Count 262 K/uL (130-400); RDW Coefficient of Variation 14.7 % (11.5-14.5); RDW Standard Deviation 53.9 fL (36.4-46.3); Red Blood Count 3.04 M/uL (4.7-6.1); White Blood Count 8.52 K/uL (4.8-10.8)
[2019-11-30 07:50] LABS: BUN Creatinine Ratio 9.9 (10-20); Calcium 8.3 mg/dl (8.5-10.1); Creatinine Clr Calc Pharmacy 10.9 ml/min; Est GFR (African American) 12.3; Est GFR (Non-African American) 10.6; Potassium 3.6 mmol/L (3.5-5.1)
[2019-11-30] MEDS ORDERED: EPOETIN ALFA 10,000 UNITS/ML VIAL IV SCH (08:00)
[2019-11-30] MEDS: CITALOPRAM 20 MG TAB PO SCH (08:40)
[2019-11-30] MEDS: DOCUSATE SODIUM 100 MG CAP PO SCH ×2 (08:41→19:59)
[2019-11-30] MEDS: ATORVASTATIN 40 MG TAB PO SCH (08:42)
[2019-11-30] MEDS: NEPHROCAPS PO SCH (08:42)
[2019-11-30] MEDS: ISOSORBIDE MONO EXTENDED REL 60 MG TABCR PO SCH (08:42)
[2019-11-30] MEDS: METOPROLOL TARTRATE 25 MG TAB PO SCH ×2 (08:42→19:59)
[2019-11-30] MEDS: CLOPIDOGREL BISULFATE 75 MG TAB PO SCH (08:43)
[2019-11-30] MEDS: FAMOTIDINE 10 MG TABLET PO SCH (08:43)
[2019-11-30] MEDS: HEPARIN SOD 5,000 UNIT/0.5 ML VIAL SQ SCH ×2 (08:44→19:59)
--- NOTE | 2019-11-30 10:20 | Nephrology Progress Note ---
Date of Service November 30, 2019 Assessment & Plan (1) ESRD on hemodialysis: -- HD orders entered into EMR and reviewed with HD nurse -- UF goal 1 L -- BP and volume status acceptable -- Qb at goal via TDC, adequate clearance -- Low potassium diet (2) Flash pulmonary edema: -- Abdominal CT films reviewed. Significant renal arterial atherosclerosis noted. h/o L RA stent. Renal artery doppler 11/27 negative for significant ALCON -- Start losartan 25 mg daily (3) Seizure disorder: -- On Keppra as per Neurology (4) Anemia: -- Hgb stable -- Epogen held today; maintained on Micera as outpatient Jesus Rivera was seen and evaluated during hemodialysis this morning. He was tolerating treatment well. He is breathing comfortably. No fevers or chills. Adequate Qb. Review of Systems Review of Systems: All systems reviewed & are unremarkable except as noted in HPI & below limited due to aphasia Physical Exam Constitutional: well developed and + thin; no acute distress Eyes: + anicteric sclerae; no corneal abnormality ENMT: Mouth: no oral mucosal abnormality and oral mucous membranes not dry Neck: normal visual inspection and trachea midline RIJ TDC Respiratory: normal respiratory effort Auscultation: lungs clear to auscultation bilaterally Cardiovascular: Rate/Rhythm: regular rate Heart Sounds: normal S1 and normal S2 Extremities: no edema Musculoskeletal: Extremities: no cyanosis and no clubbing Skin: + turgor decreased; no lesions Neurologic: Motor/Sensory: no tremor and no asterixis Psychiatric: Orientation: alert and oriented x 3 Results & Data Vital Signs (Past 12 Hours) Vital Signs Temp Pulse Pulse Pulse Resp BP BP 11/30/19 09:20 74 117/73 11/30/19 09:00 57 L 96/58 L 11/30/19 08:44 50 L 111/59 L 11/30/19 08:40 37.0 C 79 11/30/19 07:19 36.7 C 77 17 139/81 11/30/19 03:56 37.0 C 68 17 128/80 11/29/19 23:38 37.0 C 60 17 176/86 H Pulse Ox 11/30/19 09:20 11/30/19 09:00 11/30/19 08:44 11/30/19 08:40 11/30/19 07:19 96 11/30/19 03:56 97 11/29/19 23:38 97 Laboratory Results Laboratory Results - last 24 hr 11/29/19 11/30/19 11/30/19 15:53 06:43 06:43 WBC 8.52 RBC 3.04 L Hgb 9.8 L Hct 30.8 L MCV 101.3 H MCH 32.2 MCHC 31.8 L RDW Std Deviation 53.9 H RDW Coeff of Shayy 14.7 H Plt Count 262 MPV 9.6 Sodium 137 139 Potassium 4.1 D 3.6 Chloride 105 105 Carbon Dioxide 25 26 Anion Gap 7.0 8.0 BUN 41 H 48 H Creatinine 4.28 H D 4.98 H* D Est Cr Clr Drug Dosing 12.6 10.9 Est GFR ( Amer) 14.8 12.3 Est GFR (Non-Af Amer) 12.7 10.6 BUN/Creatinine Ratio 9.6 L 9.9 L Glucose 143 H 117 H Calcium 8.3 L 8.3 L PG Care Time/CCT Total # of Minutes Spent Total Time Spent with Patient: Total time spent is greater than 50% in coordination of care (as documented) at patient's floor/unit and/or counseling patient: Coding Level of Care Code 57039 Subseq Hosp Care Lvl 3 Diagnoses ESRD on hemodialysis N18.6; Z99.2 Flash pulmonary edema J81.0 Seizure disorder G40.909 Anemia D64.9
[2019-11-30] MEDS: SEVELAMER HCL 800 MG TABLET PO SCH ×2 (11:30→16:31)
[2019-11-30] MEDS: levETIRAcetam 500 MG TAB PO SCH (16:29)
[2019-11-30] MEDS: amLODIPine BESYLATE 5 MG TAB PO SCH (16:30)
--- NOTE | 2019-11-30 17:32 | Hospitalist Progress Note ---
Date of Service November 30, 2019 Assessment & Plan (1) Constipation: I suspect this was the original reason for his abdominal pain in the ER on 11/26 (also associated with prior syncopal/vasovagal episodes). Required sodium pyrophosphate enema on 11/28. Should be taking Miralax Q2D since discharge. Will give dose today since he only had a BM with enema yesterday. Continue regular Colace. I suspect visit to the ER meant he missed some doses of anti-hypertensives causing his flash pulmonary edema while in the ER. (2) Acute respiratory failure with hypoxia: Acute respiratory failure secondary to flash pulmonary edema due to hypertensive urgency in setting of ESRD, recently placed on dialysis. Influenza by PCR is negative ( currently has flu-like symptoms). Now resolved on room air. (3) Pulmonary edema: Acute pulmonary edema due to hypertensive urgency, suspect due to missed medications during ER visit vs. lack of absorption in light of constipation. Appreciate nephrology management with dialysis No need for lopez catheter but given Hx BPH need to make sure no urinary retention prior to d/c. Not for lopez cath unless bladder scanned > 500ml. (4) Hypertensive urgency: Continue home Metoprolol 25 mg BID (recently decreased from 50 mg BID on previous admission), and continue Imdur 60 mg daily, Amlodipine 10 mg daily as prescribed. Mainly now controlled with dialysis. Suspected sudden increase as above due to missed meds during ER visit vs. poor absorption from constipation. (5) Elevated lipase: Nonspecific elevation in setting of constipation. No pancreatitis on imaging or exam. (6) ESRD on hemodialysis: Recently started on HD qTuesThSat as an outpatient. Will plan on discharging after usual dialysis as long as not issues. (7) Renal artery stenosis: - Monitored; s/p left renal artery stenting in Sep 2019. Renal artery duplex as above without stenosis on the left and with moderate on the right (8) Elevated troponin: - Trop level peaked at 0.459 during last admission. - Level was 0.179 -- likely chronically elevated in setting of ESRD and improved from previous. - No indication for further monitoring; EKG was negative on admission. (9) CAD (coronary artery disease): - Echo on 11/17/19 showed EF 50-55%, hypokinesis of inferoposterior wall. - Continue home statin, plavix, imdur, metoprolol, amlodipine as prescribed. - S/p CABG in the past. (10) Prolonged QT interval: - QTc was 550 during the last admission. - QTc of 460 in the ER. - Avoid QT prolonging meds if possible. (11) Carotid artery stenosis: - L carotid artery stenosis - did not likely contribute to previous syncope. - Carotid doppler with >70% left ICA stenosis. H/o bilateral carotid endarterectomies. - Continue Plavix/statin as prescribed. - Cardiology and neurology did not recommend intervention. (12) Second degree AV block, Mobitz type I: - Noted on tele during last admission and again now - Follow on telemetry, currently 60-70s, 1st degree, occ. bigeminies. - No intervention needed (13) GERD (gastroesophageal reflux disease): - Famotidine as inpatient. (14) Expressive aphasia: - Chronic, mild from prior CVA, currently at baseline. (15) Syncope: - Recently admitted from 11/23-11/25 for syncopal episode during HD; also had syncope on 11/16 during HD. - Possibly related to DDS (per neuro) vs. vasovagal due to straining from constipation. - Fall precautions, right sided foot drop but patient non compliant with brace. (16) Peripheral artery disease: - Continue Plavix/statin as prescribed. (17) Macrocytic anemia: - History of, H/H stable. - Monitor CBC intermittently. - EPO as managed by nephrology (18) History of CVA with residual deficit: - Residual R foot drop and RUE weakness, mild aphasia. - Continue home Plavix/statin. (19) Seizure disorder: - Recently converted Dilantin to Keppra qSunMWF per neuro due to subtherapeutic Dilantin levels in setting of HD. Pt. should receive Keppra 24 hours after HD sessions. - Questionable seizure activity during syncopal episodes. (20) Depression: Continue citalopram 10 mg daily (21) Hyperkalemia: Potassium 5.7 on morning labs Managed with dialysis Switch to dialysis diet (22) Rectal bleeding: At home, small amount, just prior to admission Increase Miralax to daily and docusate to bid Constipation now resolved after giving Kayexalate (23) Hyperlipidemia: Continue atorvastatin 80mg PO daily. (24) DVT prophylaxis: Heparin 5000 units SC BID Admission and Anticipated Discharge Date Admission Date: November 27, 2019 Planned discharge tomorrow after dialysis as long as he is doing well. Lopez cath removed. Only replace if bladder scanned for > 500ml. Anticipated date of discharge: 12/01/19 Subjective Patient was seen after dialysis. No concerns or complaints at this time. No shortness of breath or chest pain. Lopez catheter currently in place. Patient is not interested in physical rehabilitation. Discussed with his who reports she has been feeling unwell the last 2 days but she appears to be over the peak. She has not had a influenza test. No fevers or chills at this time. Review of Systems Review of Systems: All systems reviewed & are unremarkable except as noted in HPI & below Physical Exam Constitutional: well developed and + frail appearing; + not well nourished and no acute distress Eyes: + anicteric sclerae; normal pupil size ENMT: external ear and nose normal, oropharynx normal Neck: trachea midline Respiratory: normal respiratory effort, lungs clear to auscultation normal respiratory effort and + respiratory distress Auscultation: lungs clear to auscultation bilaterally, + diminished lung sounds, + crackles (Bibasilar), + rales and + rhonchi; no wheezes Cardiovascular: Rate/Rhythm: regular rate and regular rhythm Heart Sounds: normal S1 and + murmur (systolic) Extremities: no edema Chest (Breasts): Chest: normal inspection of chest Gastrointestinal (Abdomen): Inspection/Auscultation: abdomen not distended Percussion/Palpation: abdomen soft; abdomen nontender Musculoskeletal: Head/Neck/Chest: normocephalic and head atraumatic Extremities: + cyanosis (chronic appearing b/l LE) Skin: no rashes, warm and dry Neurologic: moves all extremities, + focal motor deficit (right foot drop, RUE weaker than LUE (chronically)) and awake; not confused Speech / Cognition: + expressive aphasia (unnoticable with usual conversations, occasional word finding difficulty) Psychiatric: Orientation: alert and oriented x 3 Affect: euthymic affect Lymphatic: no lymphedema Results & Data ([facility]) Vital Signs (Past 12 Hours) Vital Signs Temp Pulse Pulse Pulse Resp BP BP 11/30/19 15:24 37.0 C 61 19 122/70 11/30/19 15:20 57 L 11/30/19 14:35 36.8 C 65 19 11/30/19 12:21 37.1 C 74 19 127/58 L 11/30/19 12:17 37.0 C 59 L 116/57 L 11/30/19 12:00 78 106/57 L 11/30/19 11:40 74 86/46 L 11/30/19 11:20 78 101/65 11/30/19 11:01 80 104/57 L 11/30/19 10:40 77 91/58 L 11/30/19 10:20 78 100/65 11/30/19 10:00 74 117/73 11/30/19 09:40 76 106/64 11/30/19 09:20 74 117/73 11/30/19 09:00 57 L 96/58 L 11/30/19 08:44 50 L 111/59 L 11/30/19 08:40 37.0 C 79 11/30/19 08:00 52 L 11/30/19 07:19 36.7 C 77 17 139/81 BP Pulse Ox 11/30/19 15:24 98 11/30/19 15:20 11/30/19 14:35 126/62 97 11/30/19 12:21 96 11/30/19 12:17 11/30/19 12:00 11/30/19 11:40 11/30/19 11:20 11/30/19 11:01 11/30/19 10:40 11/30/19 10:20 11/30/19 10:00 11/30/19 09:40 11/30/19 09:20 11/30/19 09:00 11/30/19 08:44 11/30/19 08:40 11/30/19 08:00 11/30/19 07:19 96 PG Care Time/CCT Total # of Minutes Spent Total Time Spent with Patient: Total time spent is greater than 50% in coordination of care (as documented) at patient's floor/unit and/or counseling patient: Coding Level of Care Code 97336 Subseq Hosp Care Lvl 2 Diagnoses Constipation K59.01 Constipation type: slow transit constipation Acute respiratory failure with hypoxia J96.01 Pulmonary edema J81.0 Chronicity: acute Hypertensive urgency I16.0 Elevated lipase R74.8 ESRD on hemodialysis N18.6; Z99.2 Renal artery stenosis I70.1 Elevated troponin R79.89 CAD (coronary artery disease) I25.10 Prolonged QT interval R94.31 Carotid artery stenosis I65.29 Second degree AV block, Mobitz type I I44.1 GERD (gastroesophageal reflux disease) K21.9 Expressive aphasia R47.01 Syncope R55 Syncope type: unspecified Peripheral artery disease I73.9 Macrocytic anemia D53.9 History of CVA with residual deficit I69.30 Seizure disorder G40.909 Depression F32.9 Depression Type: unspecified Hyperkalemia E87.5 Rectal bleeding K62.5 Hyperlipidemia E78.2 Hyperlipidemia type: mixed hyperlipidemia DVT prophylaxis Z29.9 (1) Depression Depression Type: unspecified Qualified Code(s): F32.9 - Major depressive disorder, single episode, unspecified (2) Hyperlipidemia Hyperlipidemia type: mixed hyperlipidemia Qualified Code(s): E78.2 - Mixed hyperlipidemia (3) Pulmonary edema Chronicity: acute Qualified Code(s): J81.0 - Acute pulmonary edema (4) Syncope Syncope type: unspecified Qualified Code(s): R55 - Syncope and collapse (5) Constipation Constipation type: slow transit constipation Qualified Code(s): K59.01 - Slow transit constipation
[2019-11-30] MEDS ORDERED: POLYETHYLENE (MIRALAX) 17 GM PACK PO ONE (18:18)
[2019-11-30] MEDS: ACETAMINOPHEN 325 MG TAB PO PRN (22:51)
[2019-12-01] MEDS: ISOSORBIDE MONO EXTENDED REL 60 MG TABCR PO SCH (07:55)
[2019-12-01] MEDS: METOPROLOL TARTRATE 25 MG TAB PO SCH ×2 (07:55→21:06)
[2019-12-01] MEDS: NEPHROCAPS PO SCH (07:55)
[2019-12-01] MEDS: DOCUSATE SODIUM 100 MG CAP PO SCH ×2 (07:55→21:06)
[2019-12-01] MEDS: ATORVASTATIN 40 MG TAB PO SCH (07:55)
[2019-12-01] MEDS: HEPARIN SOD 5,000 UNIT/0.5 ML VIAL SQ SCH ×2 (07:56→21:06)
[2019-12-01] MEDS: FAMOTIDINE 10 MG TABLET PO SCH (07:56)
[2019-12-01] MEDS: CLOPIDOGREL BISULFATE 75 MG TAB PO SCH (07:56)
[2019-12-01] MEDS: CITALOPRAM 20 MG TAB PO SCH (07:56)
[2019-12-01 08:32] LABS: BUN Creatinine Ratio 7.8 (10-20); Blood Urea Nitrogen 32 mg/dl (7-18); Calcium 8.3 mg/dl (8.5-10.1); Carbon Dioxide 28 mmol/L (21-32); Chloride 103 mmol/L (98-107); Creatinine Clr Calc Pharmacy 12.8 ml/min; Est GFR (African American) 15.9; Est GFR (Non-African American) 13.7; Glucose 132 mg/dl (70-99); Sodium 137 mmol/L (136-145)
[2019-12-01] MEDS: LOSARTAN POTASSIUM 25 MG TAB PO SCH (09:37)
[2019-12-01 09:54] LABS: Basophils # (auto) 0.01 K/uL (0-0.2); Basophils % (auto) 0.1 %; Hemoglobin 9.5 g/dL (14.0-18.0); Immature Granulocytes # (auto) 0.06 K/uL (0.00-0.02); Immature Granulocytes % (auto) 0.5 %; Lymphocytes # (auto) 1.21 K/uL (1.2-3.4); Lymphocytes % (auto) 9.1 %; Mean Corpuscular Hemoglobin 32.5 pg (25-34); Mean Corpuscular Hgb Conc 31.7 g/dL (32-36); Mean Corpuscular Volume 102.7 fL (80-100); Mean Platelet Volume 10.1 fL (7.4-10.4); Monocytes % (auto) 14.3 %; Neutrophils # (auto) 10.14 K/uL (1.4-6.5); Platelet Count 260 K/uL (130-400); RDW Coefficient of Variation 14.7 % (11.5-14.5); Red Blood Count 2.92 M/uL (4.7-6.1); White Blood Count 13.32 K/uL (4.8-10.8)
--- NOTE | 2019-12-01 10:03 | Nephrology Progress Note ---
Date of Service December 01, 2019 Assessment & Plan (1) ESRD on hemodialysis: -- BP and volume status are acceptable. -- Electrolytes controlled. -- No need for HD today. -- Resume TTS schedule . -- Tolerated HD well yesterday; adequate clearance. -- Low potassium diet. (2) Flash pulmonary edema: -- Abdominal CT films reviewed. Significant renal arterial atherosclerosis noted. h/o L RA stent. Renal artery doppler 11/27 negative for significant ALCON. -- Losartan 25 mg daily added today. (3) Seizure disorder: -- On Keppra as per Neurology. (4) Anemia: -- Epogen 78228 units provided with HD 11/29. Subjective Tolerated HD well yesterday. Net UF 850 ml. Breathing comfortably this AM. Miguel denies any complaints. Tmax 38.1. No subjective fevers or chills. No chest pain or palpitations. Not interested in PT or rehab. Miguel hopes to be discharged home today. Flu pending. Review of Systems Review of Systems: limited due to aphasia Physical Exam Constitutional: well developed and + thin; no acute distress Eyes: + anicteric sclerae; no corneal abnormality ENMT: Mouth: no oral mucosal abnormality and oral mucous membranes not dry Neck: normal visual inspection and trachea midline Respiratory: normal respiratory effort Auscultation: lungs clear to auscultation bilaterally Cardiovascular: Rate/Rhythm: regular rate Heart Sounds: normal S1 and normal S2 Extremities: no edema Musculoskeletal: Extremities: no cyanosis and no clubbing Skin: + turgor decreased; no lesions Neurologic: Motor/Sensory: no tremor and no asterixis Psychiatric: Orientation: alert and oriented x 3 Results & Data Vital Signs (Past 12 Hours) Vital Signs Temp Pulse Pulse Pulse Resp BP Pulse Ox 12/01/19 08:00 38.1 C H 58 L 89 17 146/79 H 95 12/01/19 03:55 37.0 C 63 17 125/66 94 12/01/19 00:57 58 L 12/01/19 00:51 37.7 C H 11/30/19 22:48 38 C H 59 L 18 138/68 97 Laboratory Results Laboratory Results - last 24 hr 12/01/19 12/01/19 12/01/19 07:25 07:26 07:26 WBC 13.32 H RBC 2.92 L Hgb 9.5 L Hct 30.0 L MCV 102.7 H MCH 32.5 MCHC 31.7 L RDW Std Deviation 55.0 H RDW Coeff of Shayy 14.7 H Plt Count 260 MPV 10.1 Immature Gran % (Auto) 0.5 Neut % (Auto) 76.0 Lymph % (Auto) 9.1 [place] % (Auto) 14.3 Eos % (Auto) 0.0 Baso % (Auto) 0.1 Immature Gran # (Auto) 0.06 H Neut # (Auto) 10.14 H Lymph # (Auto) 1.21 [place] # (Auto) 1.90 H Eos # (Auto) 0.00 Baso # (Auto) 0.01 Sodium 137 Potassium TNP Chloride 103 Carbon Dioxide 28 Anion Gap 6.0 BUN 32 H Creatinine 4.03 H D Est Cr Clr Drug Dosing 12.8 Est GFR ( Amer) 15.9 Est GFR (Non-Af Amer) 13.7 BUN/Creatinine Ratio 7.8 L Glucose 132 H Calcium 8.3 L Total Bilirubin Pending Direct Bilirubin Pending AST Pending ALT Pending Alkaline Phosphatase Pending Total Protein Pending Albumin Pending PG Care Time/CCT Total # of Minutes Spent Total Time Spent with Patient: Total time spent is greater than 50% in coordination of care (as documented) at patient's floor/unit and/or counseling patient: Coding Level of Care Code 29037 Subseq Hosp Care Lvl 3 Diagnoses ESRD on hemodialysis N18.6; Z99.2 Flash pulmonary edema J81.0 Seizure disorder G40.909 Anemia D64.9
--- NOTE | 2019-12-01 10:20 | XRay Report ---
XR chest 2V PA/lateral CLINICAL HISTORY: Fever cough COMPARISON STUDY: 11/27/2019 FINDINGS: Improving components of congestive heart failure. Diminished pulmonary vascular prominence. Diaphragms are smooth. Improved visibility of the lung bases. IMPRESSION: Improving congestive heart failure. ACT 112: Negative or not required by law. The above report was generated using voice recognition software. It may contain grammatical, syntax or spelling errors. Electronically signed by: Beto Tovar M.D. 12/01/2019 10:18 AM
[2019-12-01 10:36] LABS: Albumin Level 2.5 gm/dl (3.4-5.0); Bilirubin,Total 0.4 mg/dl (0.2-1); Total Protein 6.9 gm/dl (6.4-8.2)
[2019-12-01] MEDS: ACETAMINOPHEN 325 MG TAB PO PRN ×2 (12:07→21:05)
[2019-12-01] MEDS: SEVELAMER HCL 800 MG TABLET PO SCH ×2 (12:08→16:58)
[2019-12-01 12:30] LABS: Aspartate Aminotransferase 57 U/L (15-37); Bilirubin Direct < 0.1 mg/dl (0-0.2)
[2019-12-01] MEDS: amLODIPine BESYLATE 5 MG TAB PO SCH (16:58)
--- NOTE | 2019-12-01 19:33 | Hospitalist Progress Note ---
Date of Service December 01, 2019 Assessment & Plan (1) Fever: Concurrent increased WBC. Unclear cause. CXR negative for infection. No new URI, urine Sx. Blood cultures taken from peripheral sites x2. Will get additional blood culture from his Perm cath. No cellulitis surrounding site insertion. with URI Sx runny nose, sore throat, no fever. Pt has no URI Sx at present but if starts having URI Sx will need restesting for influenza (negative on admission). Patient has had lopez cath for a number of days therefore possibly UTI. Not septic appearing therefore deferring antibiotics at this time. Follow up blood, urine cultures. (2) Constipation: I suspect this was the original reason for his abdominal pain in the ER on 11/26 (also associated with prior syncopal/vasovagal episodes). Required sodium pyrophosphate enema on 11/28. Continue Colace, senna and MiraLAX daily I suspect visit to the ER meant he missed some doses of anti-hypertensives causing his flash pulmonary edema while in the ER. (3) Acute respiratory failure with hypoxia: Now resolved on room air. Acute respiratory failure secondary to flash pulmonary edema due to hypertensive urgency in setting of ESRD, recently placed on dialysis. Influenza by PCR is negative ( currently has flu-like symptoms). (4) Pulmonary edema: Acute pulmonary edema due to hypertensive urgency, suspect due to missed medications during ER visit vs. lack of absorption in light of constipation. Appreciate nephrology management with dialysis No need for lopez catheter but given Hx BPH need to make sure no urinary retention prior to d/c. Not for lopez cath unless bladder scanned > 500ml. (5) Hypertensive urgency: Continue home Metoprolol 25 mg BID (recently decreased from 50 mg BID on previous admission), and continue Imdur 60 mg daily, Amlodipine 10 mg daily as prescribed. Mainly now controlled with dialysis. Suspected sudden increase as above due to missed meds during ER visit vs. poor absorption from constipation. (6) Elevated lipase: Nonspecific elevation in setting of constipation. No pancreatitis on i maging or exam. (7) ESRD on hemodialysis: Recently started on HD [id number] as an outpatient. Will plan on discharging after usual dialysis as long as not issues. (8) Renal artery stenosis: - Monitored; s/p left renal artery stenting in Sep 2019. Renal artery duplex as above without stenosis on the left and with moderate on the right (9) Elevated troponin: - Trop level peaked at 0.459 during last admission. - Level was 0.179 -- likely chronically elevated in setting of ESRD and improved from previous. - No indication for further troponin labs; EKG was negative on admission. (10) CAD (coronary artery disease): - Echo on 11/17/19 showed EF 50-55%, hypokinesis of inferoposterior wall. - Continue home statin, plavix, imdur, metoprolol, amlodipine as prescribed. - S/p CABG in the past. (11) Prolonged QT interval: - QTc was 550 during the last admission. - QTc of 460 in the ER. - Avoid QT prolonging meds if possible. (12) Carotid artery stenosis: - L carotid artery stenosis - did not likely contribute to previous syncope. - Carotid doppler with >70% left ICA stenosis. H/o bilateral carotid endarterectomies. - Continue Plavix/statin as prescribed. - Cardiology and neurology did not recommend intervention. (13) Second degree AV block, Mobitz type I: - Noted on tele during last admission and again now - Follow on telemetry, currently 60-70s, 1st degree, occ. bigeminies. - No intervention needed (14) GERD (gastroesophageal reflux disease): - Famotidine as inpatient. (15) Expressive aphasia: - Chronic, mild from prior CVA, currently at baseline. (16) Syncope: - Recently admitted from 11/23-11/25 for syncopal episode during HD; also had syncope on 11/16 during HD. - Possibly related to DDS (per neuro) vs. vasovagal due to straining from constipation. - Fall precautions, right sided foot drop but patient non compliant with brace. (17) Peripheral artery disease: - Continue Plavix/statin as prescribed. (18) Macrocytic anemia: - History of, H/H stable. - Monitor CBC intermittently. - EPO as managed by nephrology (19) History of CVA with residual deficit: - Residual R foot drop and RUE weakness, mild aphasia. - Continue home Plavix/statin. (20) Seizure disorder: - Recently converted Dilantin to Keppra qSunMWF per neuro due to subtherapeutic Dilantin levels in setting of HD. Pt. should receive Keppra 24 hours after HD sessions. - Questionable seizure activity during syncopal episodes. (21) Depression: Continue citalopram 10 mg daily (22) Hyperkalemia: Potassium 5.7 on day after admission Managed with dialysis and Kayexalate given Switched to dialysis diet (23) Rectal bleeding: At home, small amount, just prior to admission Increase Miralax to daily and docusate to bid Constipation now resolved after giving Kayexalate (24) Hyperlipidemia: Continue atorvastatin 80mg PO daily. (25) DVT prophylaxis: Heparin 5000 units SC BID Admission and Anticipated Discharge Date Admission Date: November 27, 2019 Anticipated date of discharge: 12/03/19 Subjective Patient with fever last night and this morning. Patient reports feeling well with no URI or UTI Sx. No chest pain, abdominal pain, nausea, vomiting. No skin changes. with cold symptoms at home, recovering after 2 days, no fevers, not tested for influenza. Review of Systems Review of Systems: All systems reviewed & are unremarkable except as noted in HPI & below Physical Exam Constitutional: well developed and + frail appearing; + not well nourished and no acute distress Eyes: + anicteric sclerae; normal pupil size ENMT: external ear and nose normal, oropharynx normal Ears: no TM abnormality Throat: no posterior oropharynx abnormality Neck: trachea midline Respiratory: normal respiratory effort; no respiratory distress Auscultation: + crackles (Bibasilar); no rhonchi and no wheezes Cardiovascular: Rate/Rhythm: regular rate and regular rhythm Heart Sounds: normal S1 and + murmur (systolic) Extremities: no edema Chest (Breasts): Chest: normal inspection of chest Gastrointestinal (Abdomen): Inspection/Auscultation: normal bowel sounds; abdomen not distended Percussion/Palpation: abdomen soft; abdomen nontender Musculoskeletal: Head/Neck/Chest: normocephalic and head atraumatic Extremities: + cyanosis (chronic appearing b/l LE, good peripheral pulses) Skin: no rashes, warm and dry (no cellulitis) Neurologic: moves all extremities, + focal motor deficit (right foot drop, RUE weaker than LUE (chronically), nill new) and awake; not confused Speech / Cognition: + expressive aphasia (unnoticable with usual conversations, occasional word finding difficulty) Motor/Sensory: no tremor Cranial Nerves: PERRL Psychiatric: A+Ox3, euthymic affect Lymphatic: no cervical or axillary lymphadenopathy Results & Data ([facility]) Vital Signs (Past 12 Hours) Vital Signs Temp Pulse Pulse Resp BP Pulse Ox 12/01/19 15:11 37.7 C H 76 18 108/63 95 12/01/19 13:26 97 12/01/19 12:46 36.9 C 12/01/19 11:58 38.5 C H 79 18 105/65 94 12/01/19 10:21 36.8 C 12/01/19 08:00 38.1 C H 58 L 89 17 146/79 H 95 PG Care Time/CCT Total # of Minutes Spent Total Time Spent with Patient: Total time spent is greater than 50% in coordination of care (as documented) at patient's floor/unit and/or counseling patient: Coding Level of Care Code 74091 Subseq Hosp Care Lvl 3 Diagnoses Fever R50.9 Fever type: unspecified Constipation K59.01 Constipation type: slow transit constipation Acute respiratory failure with hypoxia J96.01 Pulmonary edema J81.0 Chronicity: acute Hypertensive urgency I16.0 Elevated lipase R74.8 ESRD on hemodialysis N18.6; Z99.2 Renal artery stenosis I70.1 Elevated troponin R79.89 CAD (coronary artery disease) I25.10 Coronary Disease-Associated Artery/Lesion type: [place] artery [place] vs. transplanted heart: [place] heart Associated angina: without angina Prolonged QT interval R94.31 Carotid artery stenosis I65.29 Second degree AV block, Mobitz type I I44.1 GERD (gastroesophageal reflux disease) K21.9 Expressive aphasia R47.01 Syncope R55 Syncope type: unspecified Peripheral artery disease I73.9 Macrocytic anemia D53.9 History of CVA with residual deficit I69.30 Seizure disorder G40.909 Depression F32.9 Depression Type: unspecified Hyperkalemia E87.5 Rectal bleeding K62.5 Hyperlipidemia E78.2 Hyperlipidemia type: mixed hyperlipidemia DVT prophylaxis Z29.9 (1) Fever Fever type: unspecified Qualified Code(s): R50.9 - Fever, unspecified (2) CAD (coronary artery disease) Coronary Disease-Associated Artery/Lesion type: [place] artery [place] vs. transplanted heart: [place] heart Associated angina: without angina Qualified Code(s): I25.10 - Atherosclerotic heart disease of [place] coronary artery without angina pectoris (3) Depression Depression Type: unspecified Qualified Code(s): F32.9 - Major depressive disorder, single episode, unspecified (4) Hyperlipidemia Hyperlipidemia type: mixed hyperlipidemia Qualified Code(s): E78.2 - Mixed hyperlipidemia (5) Pulmonary edema Chronicity: acute Qualified Code(s): J81.0 - Acute pulmonary edema (6) Syncope Syncope type: unspecified Qualified Code(s): R55 - Syncope and collapse (7) Constipation Constipation type: slow transit constipation Qualified Code(s): K59.01 - Slow transit constipation
[2019-12-01] MEDS: POLYETHYLENE (MIRALAX) 17 GM PACK PO SCH (21:06)
[2019-12-02 06:02] LABS: Basophils # (auto) 0.02 K/uL (0-0.2); Basophils % (auto) 0.1 %; Eosinophils # (auto) 0.01 K/uL (0-0.5); Eosinophils % (auto) 0.1 %; Hematocrit (blood only) 29.6 % (42-52); Hemoglobin 9.2 g/dL (14.0-18.0); Immature Granulocytes % (auto) 0.5 %; Lymphocytes # (auto) 1.93 K/uL (1.2-3.4); Lymphocytes % (auto) 10.5 %; Mean Corpuscular Hemoglobin 31.9 pg (25-34); Mean Corpuscular Hgb Conc 31.1 g/dL (32-36); Mean Corpuscular Volume 102.8 fL (80-100); Mean Platelet Volume 9.9 fL (7.4-10.4); Monocytes # (auto) 1.98 K/uL (0.11-0.59); Monocytes % (auto) 10.8 %; Neutrophils # (auto) 14.36 K/uL (1.4-6.5); Platelet Count 287 K/uL (130-400); RDW Coefficient of Variation 14.7 % (11.5-14.5); RDW Standard Deviation 55.4 fL (36.4-46.3); Red Blood Count 2.88 M/uL (4.7-6.1)
[2019-12-02 06:50] LABS: Albumin Globulin Ratio 0.5 (0.9-2); Albumin Level 2.4 gm/dl (3.4-5.0); BUN Creatinine Ratio 8.7 (10-20); Bilirubin,Total 0.5 mg/dl (0.2-1); C Reactive Protein 12.2 mg/dl (0-0.29); Calcium 8.2 mg/dl (8.5-10.1); Creatinine Clr Calc Pharmacy 9.8 ml/min; Est GFR (African American) 11.3; Est GFR (Non-African American) 9.8; Globulin 4.6 gm/dl (2.5-4.0); Potassium 3.5 mmol/L (3.5-5.1)
[2019-12-02] MEDS: HEPARIN SOD 5,000 UNIT/0.5 ML VIAL SQ SCH ×2 (08:06→20:15)
[2019-12-02] MEDS: ATORVASTATIN 40 MG TAB PO SCH (08:06)
[2019-12-02] MEDS: CITALOPRAM 20 MG TAB PO SCH (08:07)
[2019-12-02] MEDS: CLOPIDOGREL BISULFATE 75 MG TAB PO SCH (08:07)
[2019-12-02] MEDS: ISOSORBIDE MONO EXTENDED REL 60 MG TABCR PO SCH (08:07)
[2019-12-02] MEDS: DOCUSATE SODIUM 100 MG CAP PO SCH ×2 (08:07→20:14)
[2019-12-02] MEDS: FAMOTIDINE 10 MG TABLET PO SCH (08:08)
[2019-12-02] MEDS: LOSARTAN POTASSIUM 25 MG TAB PO SCH (08:08)
[2019-12-02] MEDS: NEPHROCAPS PO SCH (08:18)
[2019-12-02] MEDS: METOPROLOL TARTRATE 25 MG TAB PO SCH ×2 (08:18→20:15)
--- NOTE | 2019-12-02 09:43 | Nephrology Progress Note ---
Date of Service December 02, 2019 Assessment & Plan (1) ESRD on hemodialysis: -- BP and volume status are acceptable. -- Electrolytes controlled. -- No need for HD today. -- Resume TTS schedule tomorrow. -- Tolerated HD well yesterday; adequate clearance. -- Low potassium diet. (2) Flash pulmonary edema: -- Abdominal CT films reviewed. Significant renal arterial atherosclerosis noted. h/o L RA stent. Renal artery doppler 11/27 negative for significant ALCON. -- Losartan 25 mg daily added this admission. (3) Seizure disorder: -- On Keppra as per Neurology. (4) Anemia: -- Epogen 24586 units provided with HD 11/29. (5) Fever: -- HD catheter exit site clean. -- CXR demonstrated improved findings of CHF. -- Blood cultures pending. -- Urine microscopy: acellular. Follow up culture mixed steven. -- Influenza negative. -- Increasing luekocytosis. Etiology unclear. Subjective No acute events overnight. Miguel feels well this morning. He states that he feels "sleepy." He would really like to go home. Denies shortness of breath. Tmax 38.4. Appetite fair. Review of Systems Review of Systems: All systems reviewed & are unremarkable except as noted in HPI & below Physical Exam Constitutional: well developed and + thin; no acute distress Eyes: + anicteric sclerae; no corneal abnormality ENMT: Mouth: no oral mucosal abnormality and oral mucous membranes not dry Neck: normal visual inspection and trachea midline RIJ TDC Respiratory: normal respiratory effort Auscultation: lungs clear to auscultation bilaterally Cardiovascular: Rate/Rhythm: regular rate Heart Sounds: normal S1 and normal S2 Extremities: no edema Musculoskeletal: Extremities: no cyanosis and no clubbing Skin: + turgor decreased; no lesions Neurologic: Motor/Sensory: no tremor and no asterixis Psychiatric: Orientation: alert and oriented x 3 Results & Data Vital Signs (Past 12 Hours) Vital Signs Temp Pulse Resp BP Pulse Ox 12/02/19 08:00 78 109/62 12/02/19 07:17 37.4 C 80 18 98/63 L 98 12/02/19 04:20 37.1 C 52 L 17 112/66 98 12/02/19 00:47 36.7 C 52 L 17 96/58 L 98 Laboratory Results Laboratory Results - last 24 hr 12/01/19 12/01/19 12/01/19 07:25 07:26 11:36 WBC 13.32 H RBC 2.92 L Hgb 9.5 L Hct 30.0 L MCV 102.7 H MCH 32.5 MCHC 31.7 L RDW Std Deviation 55.0 H RDW Coeff of Shayy 14.7 H Plt Count 260 MPV 10.1 Immature Gran % (Auto) 0.5 Neut % (Auto) 76.0 Lymph % (Auto) 9.1 [place] % (Auto) 14.3 Eos % (Auto) 0.0 Baso % (Auto) 0.1 Immature Gran # (Auto) 0.06 H Neut # (Auto) 10.14 H Lymph # (Auto) 1.21 [place] # (Auto) 1.90 H Eos # (Auto) 0.00 Baso # (Auto) 0.01 ESR Sodium Potassium Chloride Carbon Dioxide Anion Gap BUN Creatinine Est Cr Clr Drug Dosing Est GFR ( Amer) Est GFR (Non-Af Amer) BUN/Creatinine Ratio Glucose Calcium Total Bilirubin 0.4 Direct Bilirubin < 0.1 AST 57 H ALT 105 H Alkaline Phosphatase 68 C-Reactive Protein Total Protein 6.9 Albumin 2.5 L Globulin Albumin/Globulin Ratio Procalcitonin 12/02/19 12/02/19 12/02/19 05:46 05:46 05:46 WBC 18.40 H RBC 2.88 L Hgb 9.2 L Hct 29.6 L MCV 102.8 H MCH 31.9 MCHC 31.1 L RDW Std Deviation 55.4 H RDW Coeff of Shayy 14.7 H Plt Count 287 MPV 9.9 Immature Gran % (Auto) 0.5 Neut % (Auto) 78.0 Lymph % (Auto) 10.5 [place] % (Auto) 10.8 Eos % (Auto) 0.1 Baso % (Auto) 0.1 Immature Gran # (Auto) 0.10 H Neut # (Auto) 14.36 H Lymph # (Auto) 1.93 [place] # (Auto) 1.98 H Eos # (Auto) 0.01 Baso # (Auto) 0.02 ESR 34 H Sodium 134 L Potassium 3.5 Chloride 102 Carbon Dioxide 24 Anion Gap 8.0 BUN 46 H Creatinine 5.33 H* D Est Cr Clr Drug Dosing 9.8 Est GFR ( Amer) 11.3 Est GFR (Non-Af Amer) 9.8 BUN/Creatinine Ratio 8.7 L Glucose 97 Calcium 8.2 L Total Bilirubin 0.5 Direct Bilirubin AST 46 H ALT 82 H Alkaline Phosphatase 65 C-Reactive Protein 12.20 H Total Protein 7.0 Albumin 2.4 L Globulin 4.6 H Albumin/Globulin Ratio 0.5 L Procalcitonin 12/02/19 05:46 WBC RBC Hgb Hct MCV MCH MCHC RDW Std Deviation RDW Coeff of Shayy Plt Count MPV Immature Gran % (Auto) Neut % (Auto) Lymph % (Auto) [place] % (Auto) Eos % (Auto) Baso % (Auto) Immature Gran # (Auto) Neut # (Auto) Lymph # (Auto) [place] # (Auto) Eos # (Auto) Baso # (Auto) ESR Sodium Potassium Chloride Carbon Dioxide Anion Gap BUN Creatinine Est Cr Clr Drug Dosing Est GFR ( Amer) Est GFR (Non-Af Amer) BUN/Creatinine Ratio Glucose Calcium Total Bilirubin Direct Bilirubin AST ALT Alkaline Phosphatase C-Reactive Protein Total Protein Albumin Globulin Albumin/Globulin Ratio Procalcitonin 1.08 H PG Care Time/CCT Total # of Minutes Spent Total Time Spent with Patient: Total time spent is greater than 50% in coordination of care (as documented) at patient's floor/unit and/or counseling patient: Coding Level of Care Code 98485 Subseq Hosp Care Lvl 3 Diagnoses ESRD on hemodialysis N18.6; Z99.2 Flash pulmonary edema J81.0 Seizure disorder G40.909 Anemia D64.9 Fever R50.9 Fever type: unspecified (1) Fever Fever type: unspecified Qualified Code(s): R50.9 - Fever, unspecified
[2019-12-02 10:58] LABS: Appearance Urine Turbid (Clear); Bilirubin Urine Negative (Negative); Blood Urine 3+ (Negative); Color Urine Yellow; Glucose Urine UA Negative (Negative); Ketones Urine Negative (Negative); Leukocyte Esterase Urine 2+ (Negative); Nitrite Urine Negative (Negative); Protein Urine 3+ (Negative); Specific Gravity Urine 1.025 (1.000-1.030); Urobilinogen Urine Negative (Negative)
[2019-12-02 11:10] LABS: Epithelial Cell Urine >30 /lpf (0-5); WBC Urine >30 /hpf (0-5)
[2019-12-02 11:12] LABS: Bacteria Urine 3+ (Negative); RBC Urine >30 /hpf (0-4)
[2019-12-02] MEDS: SEVELAMER HCL 800 MG TABLET PO SCH ×2 (11:25→16:54)
[2019-12-02] MEDS: ONDANSETRON INJ 2 MG/ML 2 ML VIAL IV PRN ×2 (11:25→20:24)
--- NOTE | 2019-12-02 11:50 | Hospitalist Progress Note ---
Date of Service December 02, 2019 Assessment & Plan (1) Catheter-associated urinary tract infection: Persistent fevers with increasing WBC. Initially patient refusing straight cath but after vomiting this morning advised patient strongly to let us get a urine sample. He was not septic appearing again this morning when seen and reported no symptoms prior to his vomiting episodes however BP continues to decrease rather than going up in between dialysis sessions. UA turbid with many epithelial cells, RBCs, WBCs and 3+ bacteria therefore presumed source of infection is UTI. Start on ceftriaxone 2g IV daily. (2) Fever: Recurrent - presumed source UTI as above. Follow up blood cultures from peripheries and perm cath. (3) Constipation: Suspected cause of original reason for his abdominal pain in the ER on 11/26 (also associated with prior syncopal/vasovagal episodes). BM with Kayexalate on 11/28. Continue Colace, senna and MiraLAX daily I suspect visit to the ER meant he missed some doses of anti-hypertensives causing his flash pulmonary edema while in the ER. (4) Acute respiratory failure with hypoxia: Now resolved on room air. No respiratory distress or UTI Sx Acute respiratory failure secondary to flash pulmonary edema due to hypertensive urgency in setting of ESRD, recently placed on dialysis. Influenza by PCR is negative on admission. (5) Pulmonary edema: Acute pulmonary edema due to hypertensive urgency, suspect due to missed medications during ER visit vs. lack of absorption in light of constipation. Appreciate nephrology management with dialysis straight cath for scant amount of urine therefore no urine retention after lopez removed. (6) Hypertensive urgency: Continue home Metoprolol 25 mg BID (recently decreased from 50 mg BID on previous admission), and continue Imdur 60 mg daily, Amlodipine 10 mg daily as prescribed. Mainly now controlled with dialysis. Suspected sudden increase as above due to missed meds during ER visit vs. poor absorption from constipation. (7) Elevated lipase: Nonspecific elevation in setting of constipation. No pancreatitis on imaging or exam. (8) ESRD on hemodialysis: Recently started on HD qTuesThursSat as an outpatient. Will plan on discharging after usual dialysis as long as not issues. (9) Renal artery stenosis: - Monitored; s/p left renal artery stenting in Sep 2019. Renal artery duplex as above without stenosis on the left and with moderate on the right (10) Elevated troponin: - Trop level peaked at 0.459 during last admission. - Level was 0.179 -- likely chronically elevated in setting of ESRD and improved from previous. - No indication for further troponin labs; EKG was negative on admission. (11) CAD (coronary artery disease): - Echo on 11/17/19 showed EF 50-55%, hypokinesis of inferoposterior wall. - Continue home statin, plavix, imdur, metoprolol, amlodipine as prescribed. - S/p CABG in the past. (12) Prolonged QT interval: - QTc was 550 during the last admission. - QTc of 460 in the ER. - Avoid QT prolonging meds if possible. (13) Carotid artery stenosis: - L carotid artery stenosis - did not likely contribute to previous syncope. - Carotid doppler with >70% left ICA stenosis. H/o bilateral carotid endarterectomies. - Continue Plavix/statin as prescribed. - Cardiology and neurology did not recommend intervention. (14) Second degree AV block, Mobitz type I: - Noted on tele during last admission and again now - Follow on telemetry, currently 60-70s, 1st degree, occ. bigeminies. - No intervention needed (15) GERD (gastroesophageal reflux disease): - Famotidine as inpatient. (16) Expressive aphasia: - Chronic, mild from prior CVA, currently at baseline. (17) Syncope: - Recently admitted from 11/23-11/25 for syncopal episode during HD; also had syncope on 11/16 during HD. - Possibly related to DDS (per neuro) vs. vasovagal due to straining from constipation. - Fall precautions, right sided foot drop but patient non compliant with brace. (18) Peripheral artery disease: - Continue Plavix/statin as prescribed. (19) Macrocytic anemia: - History of, H/H stable. - Monitor CBC intermittently. - EPO as managed by nephrology (20) History of CVA with residual deficit: - Residual R foot drop and RUE weakness, mild aphasia. - Continue home Plavix/statin. (21) Seizure disorder: - Recently converted Dilantin to Keppra qSunMWF per neuro due to subtherapeutic Dilantin levels in setting of HD. Pt. should receive Keppra 24 hours after HD sessions. - Questionable seizure activity during syncopal episodes. (22) Depression: Continue citalopram 10 mg daily (23) Hyperkalemia: Potassium 5.7 on day after admission Managed with dialysis and Kayexalate given Switched to dialysis diet Now resolved (24) Rectal bleeding: At home, small amount, just prior to admission Increase Miralax to daily and docusate to bid Constipation now resolved after giving Kayexalate (25) Hyperlipidemia: Continue atorvastatin 80mg PO daily. (26) DVT prophylaxis: Heparin 5000 units SC BID Admission and Anticipated Discharge Date Admission Date: November 27, 2019 Anticipated date of discharge: 12/04/19 Subjective Patient having continued fevers, vomited after breakfast this morning. No abdominal pain, constipation or diarrhea. Although no BM since Kayexalate given on 11/28. Refused straight cath yesterday. Denies any dysuria or suprapubic pain. No nausea before or after vomiting. with cold symptoms at home, recovered after 2-3 days, no fevers, not tested for influenza. Review of Systems Review of Systems: All systems reviewed & are unremarkable except as noted in HPI & below Physical Exam Constitutional: well developed and + frail appearing; + not well nourished and no acute distress Eyes: + anicteric sclerae; normal pupil size ENMT: external ear and nose normal, oropharynx normal Neck: trachea midline Respiratory: normal respiratory effort, lungs clear to auscultation no respiratory distress Cardiovascular: Rate/Rhythm: regular rate and regular rhythm Heart Sounds: normal S1 and + murmur (systolic) Extremities: no edema Chest (Breasts): Chest: normal inspection of chest Gastrointestinal (Abdomen): Inspection/Auscultation: normal bowel sounds; abdomen not distended Percussion/Palpation: abdomen soft; abdomen nontender, no guarding and abdomen not rigid Musculoskeletal: Head/Neck/Chest: normocephalic and head atraumatic Extremities: + cyanosis (chronic b/l LE, good peripheral pulses) Skin: no rashes, warm and dry (no cellulitis) Neurologic: moves all extremities, + focal motor deficit (right foot drop, RUE weaker than LUE (chronically), nill acute) and awake; not confused Speech / Cognition: + expressive aphasia (unnoticable with usual conversations, occasi onal word finding difficulty) Motor/Sensory: no tremor Psychiatric: A+Ox3, euthymic affect Lymphatic: no cervical or axillary lymphadenopathy Results & Data ([facility]) Vital Signs (Past 12 Hours) Vital Signs Temp Pulse Resp BP Pulse Ox 12/02/19 08:00 78 109/62 12/02/19 07:17 37.4 C 80 18 98/63 L 98 12/02/19 04:20 37.1 C 52 L 17 112/66 98 12/02/19 00:47 36.7 C 52 L 17 96/58 L 98 PG Care Time/CCT Total # of Minutes Spent Total Time Spent with Patient: Total time spent is greater than 50% in coordination of care (as documented) at patient's floor/unit and/or counseling patient: Coding Level of Care Code 84290 Subseq Hosp Care Lvl 3 Diagnoses Catheter-associated urinary tract infection T83.511A; N39.0 Indwelling urinary catheter type: indwelling urethral catheter Encounter type: initial encounter Fever R50.9 Fever type: unspecified Constipation K59.01 Constipation type: slow transit constipation Acute respiratory failure with hypoxia J96.01 Pulmonary edema J81.0 Chronicity: acute Hypertensive urgency I16.0 Elevated lipase R74.8 ESRD on hemodialysis N18.6; Z99.2 Renal artery stenosis I70.1 Elevated troponin R79.89 CAD (coronary artery disease) I25.10 Associated angina: without angina Coronary Disease-Associated Artery/Lesion type: [place] artery [place] vs. transplanted heart: [place] heart Prolonged QT interval R94.31 Carotid artery stenosis I65.29 Second degree AV block, Mobitz type I I44.1 GERD (gastroesophageal reflux disease) K21.9 Expressive aphasia R47.01 Syncope R55 Syncope type: unspecified Peripheral artery disease I73.9 Macrocytic anemia D53.9 History of CVA with residual deficit I69.30 Seizure disorder G40.909 Depression F32.9 Depression Type: unspecified Hyperkalemia E87.5 Rectal bleeding K62.5 Hyperlipidemia E78.2 Hyperlipidemia type: mixed hyperlipidemia DVT prophylaxis Z29.9 (1) Fever Fever type: unspecified Qualified Code(s): R50.9 - Fever, unspecified (2) CAD (coronary artery disease) Associated angina: without angina Coronary Disease-Associated Artery/Lesion type: [place] artery [place] vs. transplanted heart: [place] heart Qualified Code(s): I25.10 - Atherosclerotic heart disease of [place] coronary artery without angina pectoris (3) Depression Depression Type: unspecified Qualified Code(s): F32.9 - Major depressive disorder, single episode, unspecified (4) Hyperlipidemia Hyperlipidemia type: mixed hyperlipidemia Qualified Code(s): E78.2 - Mixed hyperlipidemia (5) Pulmonary edema Chronicity: acute Qualified Code(s): J81.0 - Acute pulmonary edema (6) Syncope Syncope type: unspecified Qualified Code(s): R55 - Syncope and collapse (7) Constipation Constipation type: slow transit constipation Qualified Code(s): K59.01 - Slow transit constipation (8) Catheter-associated urinary tract infection Indwelling urinary catheter type: indwelling urethral catheter Encounter type: initial encounter Qualified Code(s): T83.511A - Infection and inflammatory reaction due to indwelling urethral catheter, initial encounter; N39.0 - Urinary tract infection, site not specified
[2019-12-02] MEDS ORDERED: POLYETHYLENE (MIRALAX) 17 GM PACK PO STA (12:15)
[2019-12-02] MEDS: cefTRIAXone SODIUM 2,000 MG in DEXTROSE 5% 50 ML IV SCH (12:45)
[2019-12-02] MEDS: levETIRAcetam 500 MG TAB PO SCH (16:54)
[2019-12-02] MEDS: POLYETHYLENE (MIRALAX) 17 GM PACK PO SCH (17:45)
[2019-12-02] MEDS: SENNA 8.6 MG TAB PO SCH (20:14)
[2019-12-03 06:37] LABS: Basophils # (auto) 0.02 K/uL (0-0.2); Basophils % (auto) 0.1 %; Eosinophils # (auto) 0.01 K/uL (0-0.5); Eosinophils % (auto) 0.1 %; Hematocrit (blood only) 26.9 % (42-52); Hemoglobin 8.6 g/dL (14.0-18.0); Immature Granulocytes # (auto) 0.06 K/uL (0.00-0.02); Immature Granulocytes % (auto) 0.4 %; Lymphocytes # (auto) 1.71 K/uL (1.2-3.4); Lymphocytes % (auto) 12.7 %; Mean Corpuscular Hemoglobin 32.2 pg (25-34); Mean Corpuscular Volume 100.7 fL (80-100); Mean Platelet Volume 9.9 fL (7.4-10.4); Monocytes # (auto) 1.62 K/uL (0.11-0.59); Neutrophils # (auto) 10.03 K/uL (1.4-6.5); Neutrophils % (auto) 74.7 %; Platelet Count 296 K/uL (130-400); RDW Coefficient of Variation 15.1 % (11.5-14.5); RDW Standard Deviation 55.1 fL (36.4-46.3); Red Blood Count 2.67 M/uL (4.7-6.1); White Blood Count 13.45 K/uL (4.8-10.8)
[2019-12-03] MEDS ORDERED: HEPARIN SOD (PORCINE) 1000 UNIT/ML IV ONE (07:00)
[2019-12-03] MEDS ORDERED: SODIUM CHLORIDE 0.9% 1000ML 1,000 ML IV PRN (07:00)
[2019-12-03 07:27] LABS: Calcium 8.4 mg/dl (8.5-10.1); Creatinine Clr Calc Pharmacy 8.3 ml/min; Est GFR (African American) 9.2; Est GFR (Non-African American) 7.9
[2019-12-03] MEDS: FAMOTIDINE 10 MG TABLET PO SCH (08:25)
[2019-12-03] MEDS: METOPROLOL TARTRATE 25 MG TAB PO SCH ×2 (08:25→19:58)
[2019-12-03] MEDS: LOSARTAN POTASSIUM 25 MG TAB PO SCH (08:26)
[2019-12-03] MEDS: CLOPIDOGREL BISULFATE 75 MG TAB PO SCH (08:26)
[2019-12-03] MEDS: NEPHROCAPS PO SCH (08:26)
[2019-12-03] MEDS: DOCUSATE SODIUM 100 MG CAP PO SCH ×2 (08:26→19:58)
[2019-12-03] MEDS: CITALOPRAM 20 MG TAB PO SCH (08:26)
[2019-12-03] MEDS: ISOSORBIDE MONO EXTENDED REL 60 MG TABCR PO SCH (08:26)
[2019-12-03] MEDS: HEPARIN SOD 5,000 UNIT/0.5 ML VIAL SQ SCH ×2 (08:27→19:59)
[2019-12-03] MEDS: ATORVASTATIN 40 MG TAB PO SCH (08:27)
[2019-12-03 08:41] LABS: Potassium 4.2 mmol/L (3.5-5.1)
--- NOTE | 2019-12-03 10:42 | Nephrology Progress Note ---
Date of Service December 03, 2019 Assessment & Plan (1) ESRD on hemodialysis: -- BP and volume status are acceptable. -- Electrolytes controlled. -- Orders for HD entered into EMR and reviewed with dialysis nurse. UF goal 1-1.5 L. -- Qb adequate via AVF. -- Clearance appropriate. -- Low potassium diet. (2) Flash pulmonary edema: -- Abdominal CT films reviewed. Significant renal arterial atherosclerosis noted. h/o L RA stent. Renal artery doppler 11/27 negative for significant ALCON. -- Losartan 25 mg daily has been well tolerated. (3) Seizure disorder: -- On Keppra as per Neurology. (4) Anemia: -- Epogen 97685 units provided with HD 11/29. (5) Fever: -- HD catheter exit site clean. -- CXR demonstrated improved findings of CHF. -- Blood cultures pending. -- Urine microscopy: acellular. Follow up culture mixed steven. -- Influenza negative. -- Increasing luekocytosis. Etiology unclear. Subjective Afebrile x 24 hours. Urine + E coli. Denies any subjective fevers or chills. No urinary complaints. No dyspnea. Miguel was seen and evaluated during hemodialysis this AM. He is tolerating treatment well. Miguel would really like to go home [facility]. Review of Systems Review of Systems: All systems reviewed & are unremarkable except as noted in HPI & below Physical Exam Constitutional: well developed and + thin; no acute distress Eyes: + anicteric sclerae; no corneal abnormality ENMT: Mouth: no oral mucosal abnormality and oral mucous membranes not dry Neck: normal visual inspection and trachea midline Respiratory: normal respiratory effort Auscultation: lungs clear to auscultation bilaterally Cardiovascular: Rate/Rhythm: regular rate Heart Sounds: normal S1 and normal S2 Extremities: no edema Musculoskeletal: Extremities: no cyanosis and no clubbing Skin: + turgor decreased; no lesions Neurologic: Motor/Sensory: no tremor and no asterixis Psychiatric: Orientation: alert and oriented x 3 Results & Data Vital Signs (Past 12 Hours) Vital Signs Temp Pulse Pulse Resp BP Pulse Ox 12/03/19 08:00 63 12/03/19 07:08 36.5 C 76 18 125/75 96 12/03/19 03:33 36.8 C 67 17 90/53 L 97 12/03/19 00:20 36.7 C 40 L 17 91/55 L 12/03/19 00:00 51 L Laboratory Results Laboratory Results - last 24 hr 12/02/19 12/03/19 12/03/19 10:00 06:24 06:24 WBC 13.45 H RBC 2.67 L Hgb 8.6 L Hct 26.9 L MCV 100.7 H MCH 32.2 MCHC 32.0 RDW Std Deviation 55.1 H RDW Coeff of Shayy 15.1 H Plt Count 296 MPV 9.9 Immature Gran % (Auto) 0.4 Neut % (Auto) 74.7 Lymph % (Auto) 12.7 [place] % (Auto) 12.0 Eos % (Auto) 0.1 Baso % (Auto) 0.1 Immature Gran # (Auto) 0.06 H Neut # (Auto) 10.03 H Lymph # (Auto) 1.71 [place] # (Auto) 1.62 H Eos # (Auto) 0.01 Baso # (Auto) 0.02 Sodium 134 L Potassium 4.2 D Chloride 101 Carbon Dioxide 22 Anion Gap 11.0 BUN 63 H Creatinine 6.35 H* D Est Cr Clr Drug Dosing 8.3 Est GFR ( Amer) 9.2 Est GFR (Non-Af Amer) 7.9 BUN/Creatinine Ratio 10.0 Glucose 94 Calcium 8.4 L Urine Color Yellow Urine Appearance Turbid A Urine pH 6.0 Ur Specific [place] 1.025 Urine Protein 3+ H Urine Glucose (UA) Negative Urine Ketones Negative Urine Blood 3+ H Urine Nitrite Negative Urine Bilirubin Negative Urine Urobilinogen Negative Ur Leukocyte Esterase 2+ H Urine RBC >30 H Urine WBC >30 H Ur Epithelial Cells >30 H Urine Bacteria 3+ H Hyaline Casts 5-10 H PG Care Time/CCT Total # of Minutes Spent Total Time Spent with Patient: Total time spent is greater than 50% in coordination of care (as documented) at patient's floor/unit and/or counseling patient: Coding Level of Care Code 31623 Subseq Hosp Care Lvl 3 Diagnoses ESRD on hemodialysis N18.6; Z99.2 Flash pulmonary edema J81.0 Seizure disorder G40.909 Anemia D64.9 Fever R50.9 Fever type: unspecified (1) Fever Fever type: unspecified Qualified Code(s): R50.9 - Fever, unspecified
[2019-12-03] MEDS: cefTRIAXone SODIUM 2,000 MG in DEXTROSE 5% 50 ML IV SCH (14:03)
[2019-12-03] MEDS: SEVELAMER HCL 800 MG TABLET PO SCH ×2 (14:04→18:10)
[2019-12-03] MEDS: HEPARIN SOD (PORCINE) 1000 UNIT/ML IV SCH ×2 (16:58→17:00)
[2019-12-03] MEDS: POLYETHYLENE (MIRALAX) 17 GM PACK PO SCH (18:10)
--- NOTE | 2019-12-03 18:46 | Hospitalist Progress Note ---
Date of Service December 03, 2019 Assessment & Plan (1) Catheter-associated urinary tract infection: Persistent fevers with increasing WBC. Now improving after starting ceftriaxone 12/01. Continue on ceftriaxone 2g IV daily. Urine culture with E. coli in urine pending sensitivities. (2) Fever: As above. Follow up blood cultures. (3) Constipation: Suspected cause of original reason for his abdominal pain in the ER on 11/26 (also associated with prior syncopal/vasovagal episodes). BM with Kayexalate on 11/28. Continue Colace, senna and MiraLAX daily I suspect visit to the ER meant he missed some doses of anti-hypertensives causing his flash pulmonary edema while in the ER. (4) Acute respiratory failure with hypoxia: Now resolved on room air. No respiratory distress or UTI Sx Acute respiratory failure secondary to flash pulmonary edema due to hypertensive urgency in setting of ESRD, recently placed on dialysis. Influenza by PCR is negative on admission. (5) Pulmonary edema: Acute pulmonary edema due to hypertensive urgency, suspect due to missed medications during ER visit vs. lack of absorption in light of constipation. Appreciate nephrology management with dialysis straight cath for scant amount of urine therefore no urine retention after lopez removed. (6) Hypertensive urgency: Continue home Metoprolol 25 mg BID (recently decreased from 50 mg BID on previous admission), and continue Imdur 60 mg daily, Amlodipine 10 mg daily as prescribed. Mainly now controlled with dialysis. Suspected sudden increase as above due to missed meds during ER visit vs. poor absorption from constipation. (7) Elevated lipase: Nonspecific elevation in setting of constipation. No pancreatitis on imaging or exam. (8) ESRD on hemodialysis: Recently started on HD qTuesThursSat as an outpatient. Will plan on discharging after usual dialysis as long as not issues. (9) Renal artery stenosis: - Monitored; s/p left renal artery stenting in Sep 2019. Renal artery duplex as above without stenosis on the left and with moderate on the right (10) Elevated troponin: - Trop level peaked at 0.459 during last admission. - Level was 0.179 -- likely chronically elevated in setting of ESRD and improved from previous. - No indication for further troponin labs; EKG was negative on admission. (11) CAD (coronary artery disease): - Echo on 11/17/19 showed EF 50-55%, hypokinesis of inferoposterior wall. - Continue home statin, plavix, imdur, metoprolol, amlodipine as prescribed. - S/p CABG in the past. (12) Prolonged QT interval: - QTc was 550 during the last admission. - QTc of 460 in the ER. - Avoid QT prolonging meds if possible. (13) Carotid artery stenosis: - L carotid artery stenosis - did not likely contribute to previous syncope. - Carotid doppler with >70% left ICA stenosis. H/o bilateral carotid endarterectomies. - Continue Plavix/statin as prescribed. - Cardiology and neurology did not recommend intervention. (14) Second degree AV block, Mobitz type I: - Noted on tele during last admission and again now - Follow on telemetry, currently 60-70s, 1st degree, occ. bigeminies. - No intervention needed (15) GERD (gastroesophageal reflux disease): - Famotidine as inpatient. (16) Expressive aphasia: - Chronic, mild from prior CVA, currently at baseline. (17) Syncope: - Recently admitted from 11/23-11/25 for syncopal episode during HD; also had syncope on 11/16 during HD. - Possibly related to DDS (per neuro) vs. vasovagal due to straining from constipation. - Fall precautions, right sided foot drop but patient non compliant with brace. (18) Peripheral artery disease: - Continue Plavix/statin as prescribed. (19) Macrocytic anemia: - History of, H/H stable. - Monitor CBC intermittently. - EPO as managed by nephrology (20) History of CVA with residual deficit: - Residual R foot drop and RUE weakness, mild aphasia. - Continue home Plavix/statin. (21) Seizure disorder: - Recently converted Dilantin to Keppra qSunMWF per neuro due to subtherapeutic Dilantin levels in setting of HD. Pt. should receive Keppra 24 hours after HD sessions. - Questionable seizure activity during syncopal episodes. (22) Depression: Continue citalopram 10 mg daily (23) Hyperkalemia: Potassium 5.7 on day after admission Managed with dialysis and Kayexalate given Switched to dialysis diet Now resolved (24) Rectal bleeding: At home, small amount, just prior to admission Increase Miralax to daily and docusate to bid Constipation now resolved after giving Kayexalate (25) Hyperlipidemia: Continue atorvastatin 80mg PO daily. (26) DVT prophylaxis: Heparin 5000 units SC BID Admission and Anticipated Discharge Date Admission Date: November 27, 2019 Anticipated date of discharge: 12/04/19 Subjective No fever or chills. No urinary issues. Reports ongoing generalized weakness. Hemodialysis planned for today. Appears much improved mentation. Still no BM. No further nausea or vomiting. No abdominal pain. Review of Systems Review of Systems: All systems reviewed & are unremarkable except as noted in HPI & below Physical Exam Constitutional: well developed and + frail appearing; + not well nourished and no acute distress Eyes: + anicteric sclerae; normal pupil size ENMT: external ear and nose normal, oropharynx normal Neck: trachea midline Respiratory: normal respiratory effort, lungs clear to auscultation Cardiovascular: Rate/Rhythm: regular rate and regular rhythm Heart Sounds: + murmur (systolic) Extremities: no edema Chest (Breasts): Chest: normal inspection of chest Gastrointestinal (Abdomen): Inspection/Auscultation: normal bowel sounds; abdomen not distended Percussion/Palpation: abdomen soft; abdomen nontender, no guarding and abdomen not rigid Musculoskeletal: Extremities: + cyanosis (chronic b/l LE, good peripheral pulses) Skin: no rashes, warm and dry (no cellulitis) Neurologic: moves all extremities, + focal motor deficit (right foot drop, RUE weaker than LUE (chronically), nill acute) and awake; not confused Speech / Cognition: + expressive aphasia (unnoticable with usual conversations, occasional word finding difficulty) Psychiatric: Orientation: alert and oriented x 3 Results & Data ([facility]) Vital Signs (Past 12 Hours) Vital Signs Temp Pulse Pulse Resp BP BP Pulse Ox 12/03/19 16:30 75 12/03/19 15:38 36.8 C 77 19 102/63 92 12/03/19 14:00 37.2 C 62 66 20 124/77 94 12/03/19 13:20 62 137/72 12/03/19 13:00 67 103/64 12/03/19 12:40 62 115/67 12/03/19 12:20 63 128/64 12/03/19 12:00 61 123/69 12/03/19 11:40 63 115/66 12/03/19 11:20 62 106/58 L 12/03/19 11:00 62 111/62 12/03/19 10:30 36.8 C 59 L 12/03/19 08:00 63 12/03/19 07:08 36.5 C 76 18 125/75 96 PG Care Time/CCT Total # of Minutes Spent Total Time Spent with Patient: Total time spent is greater than 50% in coordination of care (as documented) at patient's floor/unit and/or counseling patient: Coding Level of Care Code 36062 Subseq Hosp Care Lvl 2 Diagnoses Catheter-associated urinary tract infection T83.511A; N39.0 Encounter type: initial encounter Indwelling urinary catheter type: indwelling urethral catheter Fever R50.9 Fever type: unspecified Constipation K59.01 Constipation type: slow transit constipation Acute respiratory failure with hypoxia J96.01 Pulmonary edema J81.0 Chronicity: acute Hypertensive urgency I16.0 Elevated lipase R74.8 ESRD on hemodialysis N18.6; Z99.2 Renal artery stenosis I70.1 Elevated troponin R79.89 CAD (coronary artery disease) I25.10 Associated angina: without angina Coronary Disease-Associated Artery/Lesion type: [place] artery [place] vs. transplanted heart: [place] heart Prolonged QT interval R94.31 Carotid artery stenosis I65.29 Second degree AV block, Mobitz type I I44.1 GERD (gastroesophageal reflux disease) K21.9 Expressive aphasia R47.01 Syncope R55 Syncope type: unspecified Peripheral artery disease I73.9 Macrocytic anemia D53.9 History of CVA with residual deficit I69.30 Seizure disorder G40.909 Depression F32.9 Depression Type: unspecified Hyperkalemia E87.5 Rectal bleeding K62.5 Hyperlipidemia E78.2 Hyperlipidemia type: mixed hyperlipidemia DVT prophylaxis Z29.9 (1) Fever Fever type: unspecified Qualified Code(s): R50.9 - Fever, unspecified (2) Catheter-associated urinary tract infection Encounter type: initial encounter Indwelling urinary catheter type: indwelling urethral catheter Qualified Code(s): T83.511A - Infection and inflammatory reaction due to indwelling urethral catheter, initial encounter; N39.0 - Urinary tract infection, site not specified (3) CAD (coronary artery disease) Associated angina: without angina Coronary Disease-Associated Artery/Lesion type: [place] artery [place] vs. transplanted heart: [place] heart Qualified Code(s): I25.10 - Atherosclerotic heart disease of [place] coronary artery without angina pectoris (4) Depression Depression Type: unspecified Qualified Code(s): F32.9 - Major depressive disorder, single episode, unspecified (5) Hyperlipidemia Hyperlipidemia type: mixed hyperlipidemia Qualified Code(s): E78.2 - Mixed hyperlipidemia (6) Pulmonary edema Chronicity: acute Qualified Code(s): J81.0 - Acute pulmonary edema (7) Syncope Syncope type: unspecified Qualified Code(s): R55 - Syncope and collapse (8) Constipation Constipation type: slow transit constipation Qualified Code(s): K59.01 - Slow transit constipation
[2019-12-03] MEDS: SENNA 8.6 MG TAB PO SCH (19:58)
[2019-12-04] MEDS: ACETAMINOPHEN 325 MG TAB PO PRN (00:06)
[2019-12-04 06:33] LABS: Basophils # (auto) 0.02 K/uL (0-0.2); Basophils % (auto) 0.2 %; Hematocrit (blood only) 27.7 % (42-52); Hemoglobin 8.6 g/dL (14.0-18.0); Immature Granulocytes # (auto) 0.09 K/uL (0.00-0.02); Immature Granulocytes % (auto) 0.7 %; Lymphocytes % (auto) 10.1 %; Mean Corpuscular Hemoglobin 32.1 pg (25-34); Mean Corpuscular Volume 103.4 fL (80-100); Mean Platelet Volume 9.6 fL (7.4-10.4); Monocytes # (auto) 2.62 K/uL (0.11-0.59); Monocytes % (auto) 20.4 %; Neutrophils # (auto) 8.82 K/uL (1.4-6.5); Neutrophils % (auto) 68.6 %; Nucleated RBC # (auto) 0.03 K/uL (0-0); Nucleated RBC % (auto) 0.2 %; Platelet Count 317 K/uL (130-400); RDW Coefficient of Variation 14.9 % (11.5-14.5); RDW Standard Deviation 55.9 fL (36.4-46.3); Red Blood Count 2.68 M/uL (4.7-6.1); White Blood Count 12.85 K/uL (4.8-10.8)
[2019-12-04 07:16] LABS: BUN Creatinine Ratio 8.1 (10-20); Calcium 8.1 mg/dl (8.5-10.1); Creatinine Clr Calc Pharmacy 13.1 ml/min; Est GFR (African American) 15.9; Est GFR (Non-African American) 13.7
[2019-12-04] MEDS: ATORVASTATIN 40 MG TAB PO SCH (07:54)
[2019-12-04] MEDS: METOPROLOL TARTRATE 25 MG TAB PO SCH (07:55)
[2019-12-04] MEDS: ISOSORBIDE MONO EXTENDED REL 60 MG TABCR PO SCH (07:57)
[2019-12-04] MEDS: FAMOTIDINE 10 MG TABLET PO SCH (07:57)
[2019-12-04] MEDS: CLOPIDOGREL BISULFATE 75 MG TAB PO SCH (07:57)
[2019-12-04] MEDS: NEPHROCAPS PO SCH (07:58)
[2019-12-04] MEDS: DOCUSATE SODIUM 100 MG CAP PO SCH (07:58)
[2019-12-04] MEDS: LOSARTAN POTASSIUM 25 MG TAB PO SCH (07:59)
[2019-12-04] MEDS: CITALOPRAM 20 MG TAB PO SCH (08:01)
[2019-12-04] MEDS: HEPARIN SOD 5,000 UNIT/0.5 ML VIAL SQ SCH (08:01)
--- NOTE | 2019-12-04 10:03 | Nephrology Progress Note ---
Date of Service December 04, 2019 Assessment & Plan (1) ESRD on hemodialysis: -- BP and volume status are acceptable. -- Electrolytes controlled. -- Resume TTS HD schedule tomorrow. [facility] anticipating patient at unit as outpatient tomorrow. -- TDC functioning well. -- Clearance appropriate. -- Low potassium diet. (2) Flash pulmonary edema: -- Abdominal CT films reviewed. Significant renal arterial atherosclerosis noted. h/o L RA stent. Renal artery doppler 11/27 negative for significant ALCON. -- Losartan 25 mg daily has been well tolerated. (3) Seizure disorder: -- On Keppra as per Neurology. (4) Anemia: -- Epogen 95348 units provided with HD 11/29. (5) Fever: -- HD catheter exit site clean. -- CXR demonstrated improved findings of CHF. -- Blood cultures NGTD. -- Urine culture + E coli pans-sensitive. -- Influenza negative. Subjective No acute events overnight. Miguel feels well. Tolerated HD well yesterday without complications. Net UF 1 L. Miguel is breathing comfortably today. No subjective fevers or chills. Remains afebrile. Denies any urinary symptoms. Review of Systems Review of Systems: All systems reviewed & are unremarkable except as noted in HPI & below Physical Exam Constitutional: well developed and + thin; no acute distress Eyes: + anicteric sclerae; no corneal abnormality ENMT: Mouth: no oral mucosal abnormality and oral mucous membranes not dry Neck: normal visual inspection and trachea midline Respiratory: normal respiratory effort Auscultation: lungs clear to auscultation bilaterally Cardiovascular: Rate/Rhythm: regular rate Heart Sounds: normal S1 and normal S2 Extremities: no edema Musculoskeletal: Extremities: no cyanosis and no clubbing Skin: + turgor decreased; no lesions Neurologic: Motor/Sensory: no tremor and no asterixis Psychiatric: Orientation: alert and oriented x 3 Results & Data Vital Signs (Past 12 Hours) Vital Signs Temp Pulse Pulse Pulse Resp BP Pulse Ox 12/04/19 07:27 36.6 C 57 L 16 125/67 100 12/04/19 04:00 36.9 C 63 18 99/59 L 95 12/04/19 01:02 37.9 C H 12/04/19 00:00 39.1 C H 86 18 101/63 91 12/03/19 23:00 94 H Laboratory Results Laboratory Results - last 24 hr 12/04/19 12/04/19 06:16 06:16 WBC 12.85 H RBC 2.68 L Hgb 8.6 L Hct 27.7 L MCV 103.4 H MCH 32.1 MCHC 31.0 L RDW Std Deviation 55.9 H RDW Coeff of Shayy 14.9 H Plt Count 317 MPV 9.6 Immature Gran % (Auto) 0.7 Neut % (Auto) 68.6 Lymph % (Auto) 10.1 Bucks % (Auto) 20.4 Eos % (Auto) 0.0 Baso % (Auto) 0.2 Immature Gran # (Auto) 0.09 H Neut # (Auto) 8.82 H Lymph # (Auto) 1.30 Bucks # (Auto) 2.62 H Eos # (Auto) 0.00 Baso # (Auto) 0.02 Absolute Nucleated RBC 0.03 H Nucleated RBC % (auto) 0.2 Sodium 135 L Potassium 4.0 Chloride 103 Carbon Dioxide 24 Anion Gap 8.0 BUN 33 H Creatinine 4.02 H D Est Cr Clr Drug Dosing 13.1 Est GFR ( Amer) 15.9 Est GFR (Non-Af Amer) 13.7 BUN/Creatinine Ratio 8.1 L Glucose 116 H Calcium 8.1 L PG Care Time/CCT Total # of Minutes Spent Total Time Spent with Patient: Total time spent is greater than 50% in coordination of care (as documented) at patient's floor/unit and/or counseling patient: Coding Level of Care Code 60752 Subseq Hosp Care Lvl 3 Diagnoses ESRD on hemodialysis N18.6; Z99.2 Flash pulmonary edema J81.0 Seizure disorder G40.909 Anemia D64.9 Fever R50.9 Fever type: unspecified (1) Fever Fever type: unspecified Qualified Code(s): R50.9 - Fever, unspecified
[2019-12-04] MEDS: cefTRIAXone SODIUM 2,000 MG in DEXTROSE 5% 50 ML IV SCH (12:52)
--- NOTE | 2019-12-04 14:11 | Discharge Summary ---
Date of Service December 04, 2019 Admission HPI Per Admitting Provider Mr. Mata is 74 year old male with past medical history of carotid artery stenosis, prolonged QT interval, end stage renal disease/renal artery stenosis, HLD, HTN, CAD, peripheral arterial disease, DM, CVA, macrocytic anemia, seizure disorder, GERD who presented with hypoxia. Pt. was recently admitted from 11/23- 11/25 for a syncopal episode during HD. Pt. was hypoxic at the beginning of prior admission, possibly related to pulmonary edema, but hypoxia had resolved by time of discharge - patient ambulated in the henao without difficulty, did not have desaturation noted per bedside nurse on day of discharge. Pt. cannot provide acute review of systems at bedside due to aphasia -- this is a chronic issue for him, currently at baseline compared to last admission. He appears to be in respiratory distress -- was initially on 3L via NC but transitioned to BiPAP due to respiratory distress. CXR is pending; will order influenza as his reports flu like symptoms at home. He received Lasix 40 mg IV for presumed pulmonary edema -- initial CXR did show pulm vascular congestion and trace pleural effusions with probable atelectasis. EKG showed SR with frequent PACs, no ST wave changes noted. BP was elevated, SBP >200. Patient received Labetalol 10 mg IV and Nitroglycerin sublingually with improvement. Case was discussed with Dr. De La Torre, ICU physician, who felt patient was appropriate for PCU status at this time. Discussed code status with his via phone call -- she is currently c/o flu like symptoms at home, therefore she is not present at bedside. His daughter lives in [place] and his son is currently in [place], [place]. Pt. is DNR/DNI but she is okay with upgrade to ICU for medication changes if necessary. Principal Diagnosis Flash pulmonary edema Acute hypoxic respiratory failure Hypertensive emergency End stage renal disease on dialysis Constipation Complicated UTI Discharge Exam Constitutional well developed and + frail appearing; + not well nourished and no acute distress Eyes + anicteric sclerae; normal pupil size ENMT external ear and nose normal, oropharynx normal Neck trachea midline Respiratory normal respiratory effort, lungs clear to auscultation no respiratory distress Cardiovascular Rate/Rhythm: regular rate and regular rhythm Heart Sounds: + murmur (systolic) Extremities: no edema Chest (Breasts) Chest: normal inspection of chest Gastrointestinal (Abdomen) Inspection/Auscultation: normal bowel sounds; abdomen not distended Percussion/Palpation: abdomen soft; abdomen nontender, no guarding and abdomen not rigid Musculoskeletal Extremities: + cyanosis (chronic b/l LE, good peripheral pulses) Neurologic moves all extremities, + focal motor deficit (right foot drop, RUE weaker than LUE (chronically), proximal muscle weaknes) and awake; not confused Speech / Cognition: + expressive aphasia (unnoticable with usual conversations, occasional word finding difficulty) Psychiatric A+Ox3, euthymic affect Discharge Data Allergies Allergy/AdvReac Type Severity Reaction Status Date / Time adhesive Allergy Unknown BLISTERING Verified 11/27/19 13:48 OF SKIN latex Allergy Rash Verified 11/27/19 13:48 Consultations 11/27/19 15:29 ED Decision to Admit Stat 11/27/19 19:38 Consult Case Management - Discharge Planning Routine Consult Nephrology Routine 12/04/19 11:09 Consult Cardiology Routine Ordered Studies 11/27/19 13:12 CT abd pelvis wo con Stat 11/28/19 14:13 US duplex renal artery Routine Hospital Course (1) Catheter-associated urinary tract infection: Miguel Mata is a 74 year old male with ESRD (recently started on dialysis) and chronic constipation was admitted to [facility] from November 26 to 2019 due to abdominal pain and acute shortness of breath. Initial presented with abdominal pain in ER which suspect was due to chronic constipation. While in the ER he development shortness of breath and diagnosed with hypertensive emergency and flash pulmonary edema which required urgent dialysis to treat. On discharge BP actually low normal (possibly due to UTI) and amlodipine dose decreased. Suspect his BP may increase again UTI treated. Continues to have Mobitz type 1 HB and bradycardia therefore he was weaned off metoprolol which has now been discontinued. Discussed with Dr Aguila on disc harge given recent syncopal events (although none on this admission) and patient will have event monitor arranged as outpatient with follow up with Dr Pressley. On admission a lopez catheter was placed. Unfortunately he developed a catheter- associated UTI which was treated with x3 days ceftriaxone, switched to Augmentin on discharge. Lopez catheter was removed. Constipation has been difficult to treat but senna was effective in the end therefore this was prescribed as needed if no BM in 2 days. Of note the patient had a fall on day of discharge. He slipped off the edge of the bed due to his ongoing proximal muscle weakness. He was advised to go for inpatient rehabilitation but declined and wished to be discharged home. His mobility was assessed with his to make sure she was aware at how weak he was before discharge and she agreed with the patient that he should be discharged home. Kind regards, Dr Jarrod Henderson (2) Fever: (3) Constipation: (4) Acute respiratory failure with hypoxia: (5) Pulmonary edema: (6) Hypertensive urgency: (7) Elevated lipase: (8) ESRD on hemodialysis: (9) Renal artery stenosis: (10) Elevated troponin: (11) CAD (coronary artery disease): (12) Prolonged QT interval: (13) Carotid artery stenosis: (14) Second degree AV block, Mobitz type I: (15) GERD (gastroesophageal reflux disease): (16) Expressive aphasia: (17) Syncope: (18) Peripheral artery disease: (19) Macrocytic anemia: (20) History of CVA with residual deficit: (21) Seizure disorder: (22) Depression: (23) Hyperkalemia: (24) Rectal bleeding: (25) Hyperlipidemia: Total Time Total Time Spent Total Time Spent (In Minutes): 50 Discharge Plan Discharge Items Patient Disposition: Home - Home Health Services Reason For Visit: Shortness of breath and hypoxia Discharge Diagnosis: Flash pulmonary edema Acute hypoxic respiratory failure Hypertensive emergency End stage renal disease on dialysis Constipation Complicated UTI Condition on Discharge: Fair Activity: Resume your previous activity Non-emergency contact: Primary Care Provider Call non-emergency contact if: you have any medication questions and your symptoms worsen Follow-up/Referrals: Nguyễn Pressley MD [Physician] - 01/04/20 1:00 pm (4-6 weeks f/u, follow up event monitor) Erick Zapata III, MD [Primary Care Provider] - 12/14/19 1:30 pm (No need for routine follow up) Diet: Dialysis Renal Addtl Attending Provider Instructions: You were admitted to [facility] from November 26 to 2019 due to abdominal pain and acute shortness of breath. You were diagnosed with flash pulmonary edema (fluid on your lungs) in the setting of hypertensive emergency which required dialysis to treat. On discharge your blood pressure has actually been running on the low side however therefore your amlodipine has been decreased. This may be temporary as you have a urine tract infection therefore please follow up with your senior systems administrator at dialysis whether this needs to be increased again in the future. Given continued low heart rate we have weaned you off the metoprolol. Please stop taking this unless advised by a physician you can restart in the future. An event monitor has been arranged to establish if your syncopal events are due to a heart arrhythmia. Please follow up with Dr Pressley (appointment to be arranged as above). During admission you developed a catheter-associated urine tract infection that required antibiotics to treat. Please continue antibiotic regimen as prescribed to continue treatment for this. Your abdominal pain was likely due to constipation and has now resolved. We have increased your constipation regimen as prescribed below. Please take Senokot if you have not had a bowel movement in 2 days. Kind regards, Dr Jarrod Henderson Pending Studies at Discharge: No Stand-Alone Forms: My [employer], Smoking Cessation Medications and DC Order Prescriptions: New sennosides [Senokot] 8.6 mg Tablet 8.6 mg PO QPM PRN (Reason: Constipation) Qty: 30 RF: 0 amoxicillin-pot clavulanate [Augmentin] 875-125 mg tablet 1 tab PO BID 7 Days Qty: 14 RF: 0 Continued atorvastatin 80 mg tablet 80 mg PO DAILY Qty: 90 RF: 3 clopidogrel 75 mg tablet 75 mg PO DAILY Qty: 90 RF: 3 ranitidine HCl 150 mg tablet 150 mg PO BID Qty: 180 RF: 3 isosorbide mononitrate 60 mg tablet extended release 24 hr 60 mg PO DAILY Qty: 30 RF: 5 Tucks (witch balta) 50 % pads, medicated 1 pad TOP BID Qty: 100 RF: 0 nitroglycerin [Nitrostat] 0.4 mg tablet, sublingual 0.4 mg SL .PRN/UD PRN (Reason: Chest Pain) Qty: 25 RF: 0 citalopram 10 mg tablet 10 mg PO DAILY Qty: 30 RF: 5 calcitriol 0.25 mcg capsule 0.25 mcg PO 3XWK RF: 0 sevelamer HCl [Renagel] 800 mg Tablet 800 mg PO BID@1130,1700 Qty: 60 RF: 0 Renal Caps 1 mg Capsule 1 cap PO QAM Qty: 30 RF: 0 levetiracetam [Keppra] 500 mg Tablet 500 mg PO SuMoWeFr@1600 Qty: 16 RF: 3 docusate sodium [Stool Softener] 100 mg Capsule 100 mg PO BID Qty: 0 RF: 0 Changed polyethylene glycol 3350 [Miralax] 17 gram powder in packet 17 gm PO DAILY Qty: 0 RF: 0 amlodipine 10 mg tablet 5 mg PO DAILY Qty: 90 RF: 2 Discontinued metoprolol tartrate 25 mg Tablet 25 mg PO BID Qty: 60 RF: 2 Discharge Orders: Discharge Order (Routine); Ordered 12/04/19 Ordered By: Jarrod Henderson Admission Data Admit Date/Time: 11/27/19 16:01 Attending Provider: Jarrod Henderson Admit Provider: Precious Gallo Primary Care Provider: Erick Zapata III Other Providers: Nas Villagran Other Interventions: Discharge Summary Assessment (RN) Last Done: 12/04/19 14:21 DC Date/Time DO NOT enter until pt leaves facility: 12/04/19 17:28 Coding Level of Care Code D/C Day Management >30 mins Diagnoses Catheter-associated urinary tract infection T83.511A; N39.0 Encounter type: initial encounter Indwelling urinary catheter type: indwelling urethral catheter Fever R50.9 Fever type: unspecified Constipation K59.01 Constipation type: slow transit constipation Acute respiratory failure with hypoxia J96.01 Pulmonary edema J81.0 Chronicity: acute Hypertensive urgency I16.0 Elevated lipase R74.8 ESRD on hemodialysis N18.6; Z99.2 Renal artery stenosis I70.1 Elevated troponin R79.89 CAD (coronary artery disease) I25.10 Associated angina: without angina Coronary Disease-Associated Artery/Lesion type: [place] artery [place] vs. transplanted heart: [place] heart Prolonged QT interval R94.31 Carotid artery stenosis I65.29 Second degree AV block, Mobitz type I I44.1 GERD (gastroesophageal reflux disease) K21.9 Expressive aphasia R47.01 Syncope R55 Syncope type: unspecified Peripheral artery disease I73.9 Macrocytic anemia D53.9 History of CVA with residual deficit I69.30 Seizure disorder G40.909 Depression F32.9 Depression Type: unspecified Hyperkalemia E87.5 Rectal bleeding K62.5 Hyperlipidemia E78.2 Hyperlipidemia type: mixed hyperlipidemia
[2019-12-04] MEDS: SEVELAMER HCL 800 MG TABLET PO SCH (14:20)
--- NOTE | 2019-12-07 13:33 | Coding Query ---
PRESENT ON ADMISSION QUERY To promote full compliance with coding requirements relating to pateint care, physician participation is requested in all cases of new car driver uncertainty. Please assist us with the question(s) below: Please place an X within the parenthesis (x). The following diagnosis listed in this patient's medical record requires physician assistance to determine if they were present on admission (POA) or not. Please advise for each diagnosis whether it was present on admission, not present on admission, or if it was clinically undetermined. 1. Catheter-associated urinary tract infection ( ) Present On Admission (x) Not Present On Admission ( ) Clinically Undetermined Thank you! Jackie Mcconnell *Definition of the present on admission (POA)-Present on admission is defined as present at the time the order for inpatient admission occurs. Conditions that develop during an outpatient encounter prior to a written order for inpatient admission (including emergency department, observation, or outpatient surgery) are considered present on admission. MTDD
== END 2019-12-04 17:28 | disposition home health service (06) | DRG 291 ==
LOC: ED 12:04 → SUATTDRO 16:01 → 2S 16:01

== ENCOUNTER 2020-02-08 13:43 | Observation (INO) ==
--- NOTE | 2020-02-08 14:49 | Emergency Department Note ---
History of Present Illness General Chief Complaint: Confusion Stated Complaint: CONFUSION, FALL 02/06 Time Seen by Provider: 02/08/20 14:20 Source: patient and family Mode of arrival: EMS Limitations: no limitations History of Present Illness Provider complaint: altered mental status and confusion Timing confirmed by: spouse Severity: moderate Maximum Pain Intensity: 5 Consistency of symptoms: waxing and waning Associated symptoms: + denies other symptoms Treatments prior to arrival: none This is a 74-year-old male who presents to the ED with a chief complaint of confusion. The patient is a dialysis dependent patient. [facility] and was not cooperating and was confused and was brought here for evaluation. The patient was seen here 4 days ago for a fall. The patient had a CT scan of his brain at that time and his CT scan did not show any acute abnormalities. He does have ecchymosis around his eyes as well as a resolving hematoma to the right forehead. The patient seemed to be more agitated today, according to the , when she took him to dialysis this morning. The patient is somewhat of a difficult historian. He was able to tell me the days of the week and count to 10. He seems to answer most basic questions appropriately. The patient at times seems to have some difficulty expressing himself, however. He seems to get more agitated when his tries to answer for him. The patient has a history of CVA with some chronic right-sided weakness. Home Medications Home Medications Medication Instructions Recorded Confirmed Type isosorbide mononitrate 60 mg 60 mg PO DAILY #30 tab 11/11/19 02/08/20 Rx tablet,extended release 24 hr Renal Caps 1 cap PO QAM #30 cap 11/20/19 02/08/20 Rx docusate sodium [Stool Softener] 100 mg PO BID #0 cap 11/26/19 02/08/20 Rx polyethylene glycol 3350 [Miralax] 17 gm PO DAILY #0 ea 12/04/19 02/08/20 Rx atorvastatin 80 mg tablet 80 mg PO DAILY #90 tab 12/09/19 02/08/20 Rx citalopram 10 mg tablet 10 mg PO DAILY #30 tab 12/09/19 02/08/20 Rx clopidogrel 75 mg tablet 75 mg PO DAILY #90 tab 12/09/19 02/08/20 Rx amlodipine 5 mg tablet 5 mg PO DAILY #30 tab 12/10/19 02/08/20 Rx calcitriol 0.25 mcg capsule 0.25 mcg PO 3XWK #30 cap 12/10/19 02/08/20 Rx hydrocortisone 2.5 % topical cream 1 appln WI DAILY PRN #28 gm 12/10/19 02/08/20 Rx with perineal applicator sennosides 8.6 mg tablet 8.6 mg PO QPM PRN #30 tab 12/31/19 02/08/20 Rx levetiracetam 500 mg tablet 500 mg PO SuMoWeFr@1600 #16 tab 01/05/20 02/08/20 Rx hydrocodone-acetaminophen [[place]] 1 tab PO Q6H PRN #10 tab 02/02/20 02/08/20 Rx glipizide 2.5 mg PO DAILY 02/08/20 02/08/20 History metoprolol tartrate 50 mg PO BID 02/08/20 02/08/20 History nitroglycerin [Nitrostat] 0.4 mg SL UD PRN 02/08/20 02/08/20 History sevelamer HCl [Renagel] 800 mg PO AC 02/08/20 02/08/20 History Allergies Allergy/AdvReac Type Severity Reaction Status Date / Time adhesive Allergy Intermediate BLISTERING Verified 02/08/20 14:20 OF SKIN latex Allergy Mild Rash Verified 02/08/20 14:20 Past Med/Surg History Medical History Arteriosclerotic cardiovascular disease s/p CABG 2007 Benign prostatic hyperplasia Carotid artery stenosis s/p remote R & L endarterectomies with L re-occlusion sometime before 2010. Being monitored by [facility] neuro, on Plavix. Chronic kidney disease Congestive heart failure (CHF) Depression Diabetes mellitus, type 2 A1C 5.4% 11/2019. Not on any medication. 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 Hyperlipidemia Hypertension Myocardial Infarction 1989? Seizure disorder Stable on Keppra, no seizure for "a long time." Follows with [facility] neurology. SNHL (sensorineural hearing loss) Surgical History History of aorto-femoral bypass History of bypass graft (non vein) Aortic-femoral or bifemoral History of carotid endarterectomy L 1998, R 2009 History of cataract surgery RT/LEFT History of colonoscopy History of esophagogastroduodenoscopy (EGD) History of tooth extraction History of vascular access device IJ FOR DIAYLSIS S/P CABG (coronary artery bypass graft) (2007) [facility] Family History Brother Hypertension Hypercholesteremia Sister Diabetes Unknown Hypertension Cardiac disorder Social History Preferred Language: Arabic Communication Ability: Effective Visual Impairment: No Limitations Train Operations Supervisor Required: No Beliefs That Will Affect Care: None marital status: Current Living Situation: Spouse Current Living Situation Comment: in an apartment per Feels Safe at Home: Yes Smoking Status: Never smoker Tobacco Type: cigarettes ; Cigarettes Per Day: 30 ; Second Hand Exposure: No ; Hx Alcohol Use: No Hx Substance Use: No caffeine: No Seatbelt Use: always Review of Systems A total of 10 systems reviewed and were otherwise negative Physical Exam Vital Signs Vital Signs - 24 hr 02/08/20 13:51 02/08/20 15:00 02/08/20 15:03 Temperature 36.7 C Temperature Source Oral Pulse Rate 93 H 106 H 104 H Pulse Rate from SpO2 Sensor 105 H Respiratory Rate 20 31 H 34 H Respiratory Effort / Characteristics Non-Labored Respiratory Depth Normal Blood Pressure 154/92 H Blood Pressure Mean 112 Blood Pressure Position Sitting Pulse Oximetry 96 75 L 90 Oxygen Delivery Method Room Air Room Air Sepsis Recent Fever Within 48 Hours No Sepsis New/Unexplained Change in Mental Status No Sepsis Action Taken by Nursing No Action Required 02/08/20 15:28 02/08/20 15:30 02/08/20 15:31 Temperature Temperature Source Pulse Rate 106 H 107 H 106 H Pulse Rate from SpO2 Sensor 107 H Respiratory Rate 38 H 36 H 30 H Respiratory Effort / Characteristics Respiratory Depth Blood Pressure 205/118 H 208/115 H Blood Pressure Mean 151 141 Blood Pressure Position Pulse Oximetry 91 Oxygen Delivery Method Sepsis Recent Fever Within 48 Hours Sepsis New/Unexplained Change in Mental Status Sepsis Action Taken by Nursing 02/08/20 15:33 02/08/20 16:00 02/08/20 16:01 Temperature Temperature Source Pulse Rate 108 H 108 H 108 H Pulse Rate from SpO2 Sensor 110 H 114 H 111 H Respiratory Rate 34 H 35 H 33 H Respiratory Effort / Characteristics Respiratory Depth Blood Pressure 203/118 H 195/120 H Blood Pressure Mean 145 150 Blood Pressure Position Pulse Oximetry 96 93 Oxygen Delivery Method Sepsis Recent Fever Within 48 Hours Sepsis New/Unexplained Change in Mental Status Sepsis Action Taken by Nursing 02/08/20 16:30 02/08/20 16:31 Temperature Temperature Source Pulse Rate 98 H 99 H Pulse Rate from SpO2 Sensor 97 H 102 H Respiratory Rate 29 H 30 H Respiratory Effort / Characteristics Respiratory Depth Blood Pressure 180/91 H Blood Pressure Mean 110 Blood Pressure Position Pulse Oximetry 96 94 Oxygen Delivery Method Sepsis Recent Fever Within 48 Hours Sepsis New/Unexplained Change in Mental Status Sepsis Action Taken by Nursing CONSTITUTIONAL/VITAL SIGNS: Reviewed / noted above. GENERAL: Non-toxic in appearance. INTEGUMENTARY: Warm, dry, and [place]. HEAD: Normocephalic. The patient has a resolving hematoma on the right forehead. There is also noted to be ecchymosis around the bilateral orbits likely related to migrating blood from the hematoma. EYES: without scleral icterus or trauma. ENT/OROPHARYNX: clear and moist. LYMPHADENOPATHY/NECK: Is supple without lymphadenopathy or meningismus. RESPIRATORY: Lungs clear and equal. CARDIOVASCULAR: Regular rate and rhythm. Systolic ejection murmur. GI/ABDOMEN: Soft and nontender. No organomegaly or pulsatile mass. No rebound or guarding. Normal bowel sounds. EXTREMITIES: Warm and well perfused. BACK: No CVA tenderness. NEUROLOGICAL: Intact without focal deficits. Chronic right-sided weakness. The patient has some intermittent difficulty with expressing himself. He is otherwise awake, alert and oriented. PSYCHIATRIC: normal affect. Slightly irritable and agitated at times. MUSCULOSKELETAL: Normally developed with good muscle tone. TRIAGE NURSING DOCUMENTATION REVIEWED. Course Administered Medications Discontinued Medications Amlodipine Besylate (Norvasc) 5 mg PO NOW ONE Stop: 02/08/20 17:07 Last Admin: 02/08/20 17:52 Dose: 5 mg Documented by: [id number] Citalopram Hydrobromide (Celexa) 10 mg PO NOW STA Stop: 02/08/20 17:07 Last Admin: 02/08/20 17:34 Dose: 10 mg Documented by: [id number] Furosemide (Lasix) 80 mg IV NOW STA Stop: 02/08/20 15:12 Last Admin: 02/08/20 15:34 Dose: 80 mg Documented by: [id number] Isosorbide Mononitrate (Imdur Extended Rel) 60 mg PO ONE STA Stop: 02/08/20 17:07 Last Admin: 02/08/20 17:34 Dose: 60 mg Documented by: [id number] Medical Decision Making Differential Diagnosis infection, electrolyte abnormalities, CVA, ICH, toxicologic, neurologic, altered mental status, delirium, hypoglycemia, hyponatremia, subarachnoid hemorrhage and sepsis Medical Records Attestation: I reviewed the patient's medical records. Home Medications Current Medication List: was personally reviewed by me Laboratory Data Attestation: I reviewed the patient's lab results. : 02/08/20 15:12 02/08/20 15:12 Lab Results 02/08/20 02/08/20 02/08/20 Range/Units 15:12 15:12 15:12 WBC (4.8-10.8) K/uL RBC (4.7-6.1) M/uL Hgb (14.0-18.0) g/dL Hct (42-52) % MCV (80-100) fL MCH (25-34) pg MCHC (32-36) g/dL RDW Std Deviation (36.4-46.3) fL RDW Coeff of Shayy (11.5-14.5) % Plt Count (130-400) K/uL MPV (7.4-10.4) fL Immature Gran % (Auto) % Neut % (Auto) % Lymph % (Auto) % Burt % (Auto) % Eos % (Auto) % Baso % (Auto) % Immature Gran # (Auto) (0.00-0.02) K/uL Neut # (Auto) (1.4-6.5) K/uL Lymph # (Auto) (1.2-3.4) K/uL Burt # (Auto) (0.11-0.59) K/uL Eos # (Auto) (0-0.5) K/uL Baso # (Auto) (0-0.2) K/uL Sodium 135 L (136-145) mmol/L Potassium 5.1 (3.5-5.1) mmol/L Chloride 97 L (98-107) mmol/L Carbon Dioxide 29 (21-32) mmol/L Anion Gap 8.0 (3-11) BUN 45 H (7-18) mg/dl Creatinine 4.37 H (0.6-1.4) mg/dl Est Cr Clr Drug Dosing Not Reportable Est GFR ( Amer) 14.4 Est GFR (Non-Af Amer) 12.4 BUN/Creatinine Ratio 10.3 (10-20) Glucose 128 H (70-99) mg/dl Lactate 2.7 H* (0.4-2.0) mmol/L Calcium 9.6 (8.5-10.1) mg/dl Total Bilirubin 0.7 (0.2-1) mg/dl AST 28 (15-37) U/L ALT 11 L (12-78) U/L Alkaline Phosphatase 70 (45-117) U/L Ammonia 19.0 (11-32) umol/L Total Creatine Kinase 53 (39-308) U/L Troponin I 0.079 H* (0-0.045) ng/ml Total Protein 8.7 H (6.4-8.2) gm/dl Albumin 3.7 (3.4-5.0) gm/dl Globulin 5.0 H (2.5-4.0) gm/dl Albumin/Globulin Ratio 0.7 L (0.9-2) TSH 0.663 (0.300-4.500) uIu/ml 02/08/20 Range/Units 15:12 WBC 13.58 H (4.8-10.8) K/uL RBC 4.39 L (4.7-6.1) M/uL Hgb 13.7 L (14.0-18.0) g/dL Hct 41.8 L (42-52) % MCV 95.2 (80-100) fL MCH 31.2 (25-34) pg MCHC 32.8 (32-36) g/dL RDW Std Deviation 53.9 H (36.4-46.3) fL RDW Coeff of Shayy 15.6 H (11.5-14.5) % Plt Count 209 (130-400) K/uL MPV 11.6 H (7.4-10.4) fL Immature Gran % (Auto) 0.4 % Neut % (Auto) 56.6 % Lymph % (Auto) 27.0 % Burt % (Auto) 13.3 % Eos % (Auto) 2.5 % Baso % (Auto) 0.2 % Immature Gran # (Auto) 0.06 H (0.00-0.02) K/uL Neut # (Auto) 7.69 H (1.4-6.5) K/uL Lymph # (Auto) 3.66 H (1.2-3.4) K/uL Burt # (Auto) 1.80 H (0.11-0.59) K/uL Eos # (Auto) 0.34 (0-0.5) K/uL Baso # (Auto) 0.03 (0-0.2) K/uL Sodium (136-145) mmol/L Potassium (3.5-5.1) mmol/L Chloride (98-107) mmol/L Carbon Dioxide (21-32) mmol/L Anion Gap (3-11) BUN (7-18) mg/dl Creatinine (0.6-1.4) mg/dl Est Cr Clr Drug Dosing Est GFR ( Amer) Est GFR (Non-Af Amer) BUN/Creatinine Ratio (10-20) Glucose (70-99) mg/dl Lactate (0.4-2.0) mmol/L Calcium (8.5-10.1) mg/dl Total Bilirubin (0.2-1) mg/dl AST (15-37) U/L ALT (12-78) U/L Alkaline Phosphatase (45-117) U/L Ammonia (11-32) umol/L Total Creatine Kinase (39-308) U/L Troponin I (0-0.045) ng/ml Total Protein (6.4-8.2) gm/dl Albumin (3.4-5.0) gm/dl Globulin (2.5-4.0) gm/dl Albumin/Globulin Ratio (0.9-2) TSH (0.300-4.500) uIu/ml Imaging Data Radiologist's Impression: CT scan of the brain: IMPRESSION: 1. Chronic small vessel ischemic change and a chronic left frontal lobe infarct. No acute intracranial abnormality. 2. Decreased size of the now trace right frontal scalp contusion and hematoma. Chest x-ray: IMPRESSION: 1. Cardiomegaly with volume overload and congestive change. 2. Asymmetric right perihilar infiltrates could represent asymmetric pulmonary edema or developing pneumonia. Follow-up to be considered. 3. Hyperinflation may suggest underlying emphysema. Blood Pressure Blood Pressure Findings: Elevated blood pressure Blood Pressure Disposition: Referred to patients primary care provider [facility] Narrative This is a 74-year-old male who presents to the ED with a chief complaint of confusion. The patient is a dialysis dependent patient. He was in dialysis today and was not cooperating and was confused and was brought here for evaluation. The patient was seen here 4 days ago for a fall. The patient had a CT scan of his brain at that time and his CT scan did not show any acute abnormalities. He does have ecchymosis around his eyes as well as a resolving hematoma to the right forehead. The patient seemed to be more agitated today, according to the , when she took him to dialysis this morning. The patient is somewhat of a difficult historian. He was able to tell me the days of the week and count to 10. He seems to answer most basic questions appropriately. The patient at times seems to have some difficulty expressing himself, however. He seems to get more agitated when his tries to answer for him. The patient has a history of CVA with some chronic right-sided weakness. The p atsusan's chest x-ray reveals some congestive heart failure. His EKG showed a sinus tach at a rate of 104. CBC and chemistry panel was unremarkable. Troponin was slightly elevated but this appears to be chronic. Lipase was negative. CT scan of the brain did not show acute process. The patient did have an episode of hypoxia after being laid down for repositioning in the ED. This required some oxygen. After he was sat up and given 80 of IV Lasix, this did seem to improve his breathing. I did speak with Dr. Patel about the patient. The patient did have a complete dialysis prior to coming to the ED today. He will be seen by the hospitalist for further inpatient evaluation and care. He may need additional dialysis tomorrow depending on his condition. Urinalysis did not show infection. I spoke with the hospitalist about the patient. He will be evaluated for inpatient monitoring and further testing. Impression & Plan Acute confusion, Acute CHF Discharge Plan Visit Data Chief Complaint: Confusion Stated Complaint: CONFUSION, FALL 02/06 ED Provider: Joss Haq Discharge Problem: Acute confusion, Acute CHF Discharge Instructions Interventions: ED Discharge Assessment Last Done: 02/08/20 18:14 Discharge Problem: Acute CHF Qualifiers: Heart failure type: unspecified Qualified Code(s): I50.9 - Heart failure, unspecified
--- NOTE | 2020-02-08 15:06 | XRay Report ---
XR chest 1V portable CLINICAL HISTORY: 74 years-old Male presenting with weakness. TECHNIQUE: Portable upright AP view of the chest was obtained. COMPARISON: 12/01/2019. FINDINGS: Tunneled right internal jugular dialysis catheter terminates in the lower SVC. Median sternotomy wire s intact. Atherosclerosis of the aortic arch. Cardiac silhouette moderately enlarged. Pulmonary vascu lar and interstitial prominence. Asymmetric right perihilar opacity. Lungs are mildly hyperinflated. No large effusion or pneumothorax. Mild degenerative changes of the spine. IMPRESSION: 1. Cardiomegaly with volume overload and congestive change. 2. Asymmetric right perihilar infiltrates could represent asymmetric pulmonary edema or developing p neumonia. Follow-up to be considered. 3. Hyperinflation may suggest underlying emphysema. ACT 112: Negative or not required by law. Electronically signed by: David Galdamez M.D. 02/08/2020 3:05 PM
[2020-02-08] MEDS ORDERED: FUROSEMIDE 40 MG/4 ML VIAL IV STA (15:11)
[2020-02-08 15:23] LABS: Basophils # (auto) 0.03 K/uL (0-0.2); Basophils % (auto) 0.2 %; Eosinophils # (auto) 0.34 K/uL (0-0.5); Eosinophils % (auto) 2.5 %; Hematocrit (blood only) 41.8 % (42-52); Hemoglobin 13.7 g/dL (14.0-18.0); Immature Granulocytes # (auto) 0.06 K/uL (0.00-0.02); Immature Granulocytes % (auto) 0.4 %; Lymphocytes # (auto) 3.66 K/uL (1.2-3.4); Mean Corpuscular Hemoglobin 31.2 pg (25-34); Mean Corpuscular Hgb Conc 32.8 g/dL (32-36); Mean Corpuscular Volume 95.2 fL (80-100); Mean Platelet Volume 11.6 fL (7.4-10.4); Monocytes % (auto) 13.3 %; Neutrophils # (auto) 7.69 K/uL (1.4-6.5); Neutrophils % (auto) 56.6 %; Platelet Count 209 K/uL (130-400); RDW Coefficient of Variation 15.6 % (11.5-14.5); RDW Standard Deviation 53.9 fL (36.4-46.3); Red Blood Count 4.39 M/uL (4.7-6.1); White Blood Count 13.58 K/uL (4.8-10.8)
--- NOTE | 2020-02-08 15:31 | CT Scan Report ---
CT head/brain wo con CLINICAL HISTORY: 74 years-old Male presenting with confusion. TECHNIQUE: Multidetector CT imaging of the head was performed without the use of intravenous contrast . IV contrast: None. One or more dose lowering techniques were used consistent with the principles of ALARA (as low as reasonably achievable), including automatic exposure control, mA or kV adjustment t o individual patient size, and/or use of iterative reconstruction. COMPARISON: 02/04/2020. CT DOSE (mGy.cm): The estimated cumulative dose is 537.48 mGy.cm. 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 Proportional ventricular and sulcal prominence, likely age-related parenchymal volume loss. Ex vacuo dilatation of the left lateral ventricle related to the presence of the chronic left frontal lobe inf arct. No hemorrhage. Periventricular and subcortical white matter hypoattenuation, nonspecific but li spencer indicative of chronic small vessel ischemic change. No acute territorial infarct. No mass effect or midline shift. No extra-axial fluid collection. Paranasal sinuses and mastoid air cells clear. Ca lvarium intact. Decreased size of the trace right frontal paramedian scalp contusion with trace adjac ent subcutaneous hematoma. IMPRESSION: 1. Chronic small vessel ischemic change and a chronic left frontal lobe infarct. No acute intracrani al abnormality. 2. Decreased size of the now trace right frontal scalp contusion and hematoma. ACT 112: Negative or not required by law. Electronically signed by: David Galdamez M.D. 02/08/2020 3:30 PM
[2020-02-08 15:41] LABS: Alanine Aminotransferase 11 U/L (12-78); Albumin Level 3.7 gm/dl (3.4-5.0); Aspartate Aminotransferase 28 U/L (15-37); BUN Creatinine Ratio 10.3 (10-20); Blood Urea Nitrogen 45 mg/dl (7-18); Calcium 9.6 mg/dl (8.5-10.1); Carbon Dioxide 29 mmol/L (21-32); Chloride 97 mmol/L (98-107); Est GFR (African American) 14.4; Est GFR (Non-African American) 12.4; Glucose 128 mg/dl (70-99); Potassium 5.1 mmol/L (3.5-5.1); Sodium 135 mmol/L (136-145)
[2020-02-08 15:53] LABS: Albumin Globulin Ratio 0.7 (0.9-2); Alkaline Phosphatase 70 U/L (45-117); Bilirubin,Total 0.7 mg/dl (0.2-1); Creatine Kinase 53 U/L (39-308); Thyroid Stimulating Hormone 0.663 uIu/ml (0.300-4.500); Total Protein 8.7 gm/dl (6.4-8.2); Troponin I 0.079 ng/ml (0-0.045)
--- NOTE | 2020-02-08 17:02 | History & Physical Report ---
Date of Service February 08, 2020 Assessment & Plan (1) Altered mental state: Patient does appear off his baseline compared to when I discharged him in November and as per his since his recent fall. Recent fall due to not using his walker - he has substantial proximal muscle leg weakness but refuses rehabilitation. Repeat CT head today reassuring but possible ongoing concussion from this fall. No eye signs on exam. Will rule out infection with straight cath UA micro +/- culture (previous ho spitalization with UTI) and procalcitonin to complete assessment for PNA. WBC elevated but without definitive source and non-septic appearing will trend rather than treat with antibiotics at present. ?constipation contributing (see below) (2) Hypoxia: Secondary to hypervolemic state due to ESRD requiring dialysis and exacerbated by lying flat in the ER. (3) Volume overload: Consult nephrology in AM for consideration of dialysis. He is always somewhat overloaded however but on more than one occasion now has come to the ER for an alternate reason but on lying flat gets acutely hypoxic and becomes hypervolemic. (4) Diabetes mellitus with circulatory complication: Discontinue glipizide. Monitor BSG ACHS (5) CAD (coronary artery disease): Multiple plaques in coronary arteries, peripheral arteries, renal arteries. Continue atorvastatin and clopidogrel. (6) Constipation: Noted chronic history for this. His notes he has been straining again more recently. We have discussed this extensively in detail on prior admissions. Will give MiraLAX now but likely will need Senna. KUB XR to assess degree of stool burden. (7) Right foot drop: Chronic. Noted secondary to prior CVA. (8) Expressive aphasia: Worse than prior with altered mental state as above. Secondary to prior CVA. Usually able to answer simple questions. (9) Second degree AV block, Mobitz type I: Noted history of this from prior hospitalizations. Currently back on metoprolol after stopped on prior admission. (10) DVT prophylaxis: Heparin 5000 units SQ BID History of Present Illness Chief Complaint: Altered mental state, hypoxia Primary Care Provider: Erick Zapata MD Miguel Mata is a 74 year old male with ESRD on dialysis who present to the ER with altered mental state since his fall 4 days previously. His reports he has been getting progressively worse with delirium symptoms such as trying to take his clothes off and possibly hallucinating. At dialysis today he was not co-operating and appeared more confused so was brought to the ER via EMS for evaluation. While in the ER he was noted to become much more short of breath as he had been lying flat for the CT head. He is also hypoxic requiring 8L via oxymask therefore was referred to the medicine team for admission. He is yet to have any of his medication today when seen as he usually takes this after dialysis on those days. History is somewhat limited from the patient due to his expressive dysphasia and unclear if he is fully understanding my questions. But he denies any current pain. He agrees he is more confused than usual. He appears to be orientated to time, place and person. But slower at answering and using less words than he does usually. He is well known to me from prior admission and is difficult to know whether he is getting confused as he has chronic dysphasia which gets worse during episodes of confusion. On his last admission he developed a catheter-associated urine tract infection which was the cause of his confusion on that occasion after a similar episode of flash pulmonary edema after lying flat in the ER and missing his usual medication. Allergies Allergy/AdvReac Type Severity Reaction Status Date / Time adhesive Allergy Intermediate BLISTERING Verified 02/08/20 14:20 OF SKIN latex Allergy Mild Rash Verified 02/08/20 14:20 Home Medications Home Medications Medication Instructions Recorded Confirmed Type isosorbide mononitrate 60 mg 60 mg PO DAILY #30 tab 11/11/19 02/08/20 Rx tablet,extended release 24 hr Renal Caps 1 cap PO QAM #30 cap 11/20/19 02/08/20 Rx docusate sodium [Stool Softener] 100 mg PO BID #0 cap 11/26/19 02/08/20 Rx polyethylene glycol 3350 [Miralax] 17 gm PO DAILY #0 ea 12/04/19 02/08/20 Rx atorvastatin 80 mg tablet 80 mg PO DAILY #90 tab 12/09/19 02/08/20 Rx citalopram 10 mg tablet 10 mg PO DAILY #30 tab 12/09/19 02/08/20 Rx clopidogrel 75 mg tablet 75 mg PO DAILY #90 tab 12/09/19 02/08/20 Rx amlodipine 5 mg tablet 5 mg PO DAILY #30 tab 12/10/19 02/08/20 Rx calcitriol 0.25 mcg capsule 0.25 mcg PO 3XWK #30 cap 12/10/19 02/08/20 Rx hydrocortisone 2.5 % topical cream 1 appln [place] DAILY PRN #28 gm 12/10/19 02/08/20 Rx with perineal applicator sennosides 8.6 mg tablet 8.6 mg PO QPM PRN #30 tab 12/31/19 02/08/20 Rx levetiracetam 500 mg tablet 500 mg PO SuMoWeFr@1600 #16 tab 01/05/20 02/08/20 Rx hydrocodone-acetaminophen [[place]] 1 tab PO Q6H PRN #10 tab 02/02/20 02/08/20 Rx glipizide 2.5 mg PO DAILY 02/08/20 02/08/20 History metoprolol tartrate 50 mg PO BID 02/08/20 02/08/20 History nitroglycerin [Nitrostat] 0.4 mg SL UD PRN 02/08/20 02/08/20 History sevelamer HCl [Renagel] 800 mg PO AC 02/08/20 02/08/20 History Past Med/Surg History Medical History Arteriosclerotic cardiovascular disease s/p CABG 2007 Benign prostatic hyperplasia Carotid artery stenosis s/p remote R & L endarterectomies with L re-occlusion sometime before 2010. Being monitored by [facility] neuro, on Plavix. Chronic kidney disease Congestive heart failure (CHF) Depression Diabetes mellitus, type 2 A1C 5.4% 11/2019. Not on any medication. 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 Seizure disorder Stable on Keppra, no seizure for "a long time." Follows with [facility] neurology. SNHL (sensorineural hearing loss) Surgical History History of aorto-femoral bypass History of bypass graft (non vein) Aortic-femoral or bifemoral History of carotid endarterectomy L 1998, R 2009 History of cataract surgery RT/LEFT History of colonoscopy History of esophagogastroduodenoscopy (EGD) History of tooth extraction History of vascular access device IJ FOR DIAYLSIS S/P CABG (coronary artery bypass graft) (2008) [facility] Family History Brother Hypertension Hypercholesteremia Sister Diabetes Unknown Hypertension Cardiac disorder Social History Preferred Language: Eritrean Communication Ability: Effective Visual Impairment: No Limitations Lockstitch Zipper Setter Required: No Beliefs That Will Affect Care: None marital status: Current Living Situation: Spouse Current Living Situation Comment: in an apartment per Other Information That Helps Us Care for You: No Feels Safe at Home: Yes Safety Concerns: Feels Safe At This Time Smoking Status: Former smoker Tobacco Type: cigarettes ; Cigarettes Per Day: 30 ; Do You Dip or Chew Tobacco: No ; Second Hand Exposure: No ; Hx Alcohol Use: No Hx Substance Use: No caffeine: No Seatbelt Use: always Review of Systems Review of Systems: All systems reviewed & are unremarkable except as noted in HPI & below Physical Exam Constitutional: well developed and + frail appearing; + not well nourished and no acute distress Eyes: PERRL, conjunctivae normal, anicteric sclerae ENMT: external ear and nose normal, oropharynx normal Neck: trachea midline, no thyromegaly Respiratory: + respiratory distress, + retractions, + uses accessory muscles and + tachypneic; no labored breathing Auscultation: + diminished lung sounds (bibasal) and + crackles (bibasal) Cardiovascular: Rate/Rhythm: regular rhythm and + tachycardic Heart Sounds: + murmur (systolic) Extremities: normal capillary refill and + pedal edema; no calf tenderness Gastrointestinal (Abdomen): Inspection/Auscultation: normal bowel sounds Percussion/Palpation: abdomen soft; abdomen nontender, no guarding and abdomen not rigid Skin: Trauma: + hematoma (resolving hematoma right scalp, raccoon eyes) Neurologic: moves all extremities, + focal motor deficit (chronic right foot drop but no new focal deficit), awake and + confused (dysphasia worse than usual) Speech / Cognition: + expressive aphasia; no receptive aphasia Motor/Sensory: no tremor and no pronator drift Psychiatric: Orientation: alert and oriented x 3 Lymphatic: no cervical or axillary lymphadenopathy Results & Data Results & Data ([facility]) Vital Signs (Past 12 Hours) Vital Signs Temp Pulse Resp BP Pulse Ox 02/08/20 15:00 106 H 31 H 75 L 02/08/20 13:51 36.7 C 93 H 20 154/92 H 96 Diagnostic Findings XR chest 1V portable IMPRESSION: 1. Cardiomegaly with volume overload and congestive change. 2. Asymmetric right perihilar infiltrates could represent asymmetric pulmonary edema or developing pneumonia. Follow-up to be considered. 3. Hyperinflation may suggest underlying emphysema. CT head/brain wo con IMPRESSION: 1. Chronic small vessel ischemic change and a chronic left frontal lobe infarct. No acute intracranial abnormality. 2. Decreased size of the now trace right frontal scalp contusion and hematoma. ECG Indication: altered mental status Rate (beats per minute): 104 Rhythm: sinus tachycardia Findings: + 1st degree AV block and + ST depression (Lateral) Comparison ECG Date: from (11/27/2019) Change: the following changes noted (sinus replaced junctional rhythm, ST changes as above (although these have been present on prior EKGs in sinus rhythm)) Code Status & VTE Plan Code Status Full as discussed with the patient and his (although noted on prior admissions he has been DNR/DNI this was discussed in some length with them today) VTE Prophylaxis Plan VTE Prophylaxis will be ordered: Yes PG Care Time/CCT Total # of Minutes Spent Total Time Spent with Patient: Total time spent is greater than 50% in coordination of care (as documented) at patient's floor/unit and/or counseling patient: Coding Level of Care Code 92283 Initial Inpt Care Lvl 3 Diagnoses Altered mental state R41.0 Altered mental status type: delirium Hypoxia R09.02 Volume overload E87.79 Hypervolemia type: other Diabetes mellitus with circulatory complication E11.51 Diabetes mellitus complication detail: with peripheral angiopathy without gangrene Diabetes mellitus termite treater insulin use: without usp use Diabetes mellitus type: type 2 CAD (coronary artery disease) I25.10 Associated angina: without angina Coronary Disease-Associated Artery/Lesion type: [place] artery [place] vs. transplanted heart: [place] heart Constipation K59.01 Constipation type: slow transit constipation Right foot drop M21.371 Expressive aphasia R47.01 Second degree AV block, Mobitz type I I44.1 DVT prophylaxis Z29.9 (1) CAD (coronary artery disease) Associated angina: without angina Coronary Disease-Associated Artery/Lesion type: [place] artery [place] vs. transplanted heart: [place] heart Qualified Code(s): I25.10 - Atherosclerotic heart disease of [place] coronary artery without angina pectoris (2) Diabetes mellitus with circulatory complication Diabetes mellitus complication detail: with peripheral angiopathy without gangrene Diabetes mellitus usp insulin use: without usp use Diabetes mellitus type: type 2 Qualified Code(s): E11.51 - Type 2 diabetes mellitus with diabetic peripheral angiopathy without gangrene (3) Altered mental state Altered mental status type: delirium Qualified Code(s): R41.0 - Disorientation, unspecified (4) Constipation Constipation type: slow transit constipation Qualified Code(s): K59.01 - Slow transit constipation (5) Volume overload Hypervolemia type: other Qualified Code(s): E87.79 - Other fluid overload
[2020-02-08] MEDS ORDERED: AMLODIPINE BESYLATE 5 MG TAB PO ONE (17:06)
[2020-02-08] MEDS ORDERED: CITALOPRAM 20 MG TAB PO STA (17:06)
[2020-02-08] MEDS ORDERED: ISOSORBIDE MONO EXTENDED REL 30 MG TABCR PO STA (17:06)
[2020-02-08 18:03] LABS: Appearance Urine Clear (Clear); Bacteria Urine Automated Negative (Negative); Bilirubin Urine Negative (Negative); Blood Urine 1+ (Negative); Color Urine Yellow; Epithelial Cell Urine Auto >30 /lpf (0-5); Glucose Urine UA Negative (Negative); Ketones Urine Negative (Negative); Leukocyte Esterase Urine Negative (Negative); Nitrite Urine Negative (Negative); Urobilinogen Urine Negative (Negative); pH Urine >= 9.0 (4.5-7.5)
[2020-02-08 18:06] LABS: Protein Urine 2+ (Negative); Sulfosalicylic Acid Urine Positive (Negative)
[2020-02-08] MEDS ORDERED: HYDROCODONE/ACETAMOPHEN 5/325MG TAB PO PRN (18:24)
[2020-02-08] MEDS ORDERED: SENNA 8.6 MG TAB PO PRN (18:24)
[2020-02-08] MEDS ORDERED: HYDROCORTISONE HC 2.5% CRM 30GM TUBE EXT PRN (18:24)
[2020-02-08] MEDS ORDERED: ACETAMINOPHEN 325 MG TAB PO PRN (18:24)
[2020-02-08] MEDS: CLOPIDOGREL BISULFATE 75 MG TAB PO ONE ×2 (19:28→19:37)
[2020-02-08] MEDS: POLYETHYLENE (MIRALAX) 17 GM PACK PO ONE ×2 (19:28→19:37)
--- NOTE | 2020-02-08 20:33 | XRay Report ---
XR KUB/Abdomen 1 view CLINICAL HISTORY: 74 years-old Male presenting with ?fecal impaction. TECHNIQUE: Single supine view of the abdomen was obtained. COMPARISON: 11/24/[address] from 11/27/2019. FINDINGS: Moderate stool burden with a moderate stool burden in the rectum. Nonobstructive bowel gas pattern. N o gross pneumoperitoneum. Surgical clips project over the central abdomen in the inguinal regions. Prominent renovascular calcification. A stent is noted at the origin of the right renal artery. Limit ed evaluation for nephrolithiasis given the degree of atherosclerotic calcification associated with t he kidneys. Osseous structures normal. IMPRESSION: 1. Moderate stool burden including in the rectum. Findings suggest constipation. ACT 112: Negative or not required by law. Electronically signed by: David Galdamez M.D. 02/08/2020 8:32 PM
[2020-02-08] MEDS ORDERED: METOPROLOL TARTRATE 50 MG TAB PO SCH (21:00)
[2020-02-08] MEDS: DOCUSATE SODIUM 100 MG CAP PO SCH (21:29)
[2020-02-08] MEDS: HEPARIN SOD 5,000 UNIT/0.5 ML VIAL SQ SCH (23:44)
[2020-02-09] MEDS ORDERED: GLUCOSE 10 TABS/TUBE PO PRN (01:02)
[2020-02-09] MEDS ORDERED: CARBOHYDRATES FOR HYPOGLYCEMIA PO PRN (01:02)
[2020-02-09] MEDS ORDERED: GLUCOSE 40% GEL 15 GM TUBE PO PRN (01:02)
[2020-02-09] MEDS ORDERED: DEXTROSE 50% 50 ML SYRINGE IV PRN (01:02)
[2020-02-09] MEDS ORDERED: GLUCAGON FOR INJ 1 MG VIAL SQ PRN (01:02)
[2020-02-09 01:20] LABS: Magnesium 3.1 mg/dl (1.8-2.4); Phosphorus 3.2 mg/dl (2.5-4.9); Troponin I 0.69 ng/ml (0-0.045)
[2020-02-09 06:50] LABS: Basophils # (auto) 0.03 K/uL (0-0.2); Basophils % (auto) 0.2 %; Eosinophils # (auto) 0.09 K/uL (0-0.5); Eosinophils % (auto) 0.7 %; Hematocrit (blood only) 38.1 % (42-52); Hemoglobin 12.7 g/dL (14.0-18.0); Immature Granulocytes # (auto) 0.06 K/uL (0.00-0.02); Immature Granulocytes % (auto) 0.5 %; Lymphocytes # (auto) 2.38 K/uL (1.2-3.4); Lymphocytes % (auto) 19.4 %; Mean Corpuscular Hemoglobin 32.6 pg (25-34); Mean Corpuscular Hgb Conc 33.3 g/dL (32-36); Mean Corpuscular Volume 97.9 fL (80-100); Mean Platelet Volume 11.6 fL (7.4-10.4); Monocytes # (auto) 1.22 K/uL (0.11-0.59); Neutrophils # (auto) 8.48 K/uL (1.4-6.5); Neutrophils % (auto) 69.2 %; Platelet Count 198 K/uL (130-400); RDW Coefficient of Variation 15.9 % (11.5-14.5); RDW Standard Deviation 56.6 fL (36.4-46.3); Red Blood Count 3.89 M/uL (4.7-6.1); White Blood Count 12.26 K/uL (4.8-10.8)
[2020-02-09 07:31] LABS: Alanine Aminotransferase 15 U/L (12-78); Albumin Globulin Ratio 0.7 (0.9-2); Albumin Level 3.2 gm/dl (3.4-5.0); Alkaline Phosphatase 68 U/L (45-117); Aspartate Aminotransferase 31 U/L (15-37); BUN Creatinine Ratio 11.1 (10-20); Bilirubin,Total 0.7 mg/dl (0.2-1); Blood Urea Nitrogen 62 mg/dl (7-18); Calcium 8.6 mg/dl (8.5-10.1); Carbon Dioxide 29 mmol/L (21-32); Chloride 99 mmol/L (98-107); Est GFR (African American) 10.7; Est GFR (Non-African American) 9.2; Globulin 4.3 gm/dl (2.5-4.0); Glucose 139 mg/dl (70-99); Sodium 134 mmol/L (136-145); Total Protein 7.5 gm/dl (6.4-8.2)
[2020-02-09] MEDS ORDERED: SODIUM CHLORIDE 0.9% 1000ML 1,000 ML IV PRN (08:16)
[2020-02-09] MEDS ORDERED: HEPARIN SOD (PORCINE) 1000 UNIT/ML 10 ML VIAL IV ONE (08:16)
[2020-02-09] MEDS: SEVELAMER HCL 800 MG TABLET PO SCH ×3 (08:18→16:12)
[2020-02-09] MEDS: INSULIN ASPART 100 UNITS/ML 3 ML PEN SC SCH ×4 (08:18→20:47)
[2020-02-09] MEDS: ATORVASTATIN 40 MG TAB PO SCH (08:18)
[2020-02-09] MEDS: NEPHROCAPS PO SCH (08:18)
[2020-02-09] MEDS: CITALOPRAM 20 MG TAB PO SCH (08:19)
[2020-02-09] MEDS: HEPARIN SOD 5,000 UNIT/0.5 ML VIAL SQ SCH ×2 (08:19→20:47)
[2020-02-09] MEDS: DOCUSATE SODIUM 100 MG CAP PO SCH ×3 (08:19→20:59)
[2020-02-09] MEDS: CLOPIDOGREL BISULFATE 75 MG TAB PO SCH (08:56)
[2020-02-09] MEDS: POLYETHYLENE (MIRALAX) 17 GM PACK PO SCH (08:56)
[2020-02-09] MEDS ORDERED: ISOSORBIDE MONO EXTENDED REL 60 MG TABCR PO SCH (09:00)
--- NOTE | 2020-02-09 10:32 | Nephrology Consultation ---
Date of Consultation February 09, 2020 Assessment & Plan (1) End stage renal failure on dialysis: -- Will provide heparin free HD today -- Attempt 3 L UF -- 2K bath to correct hyperkalemia -- Monitor PRP (2) Hypertensive urgency: -- SBP ~ 200 mmHg at time of admission -- 10/05 [address] performed at [facility]: R 7cm, L 9cm. < 60% R RA stenosis, L proximal RA stent patent w/ < 60% stenosis in remainder of artery -- Monitor BP following UF -- Once potassium corrected may need to consider adding ELIN inhibitor to current BP regimen (3) Acute exacerbation of CHF (congestive heart failure): -- Will monitor UO during hospitalization. If nonoliguric patient may benefit from oral diuretic (4) CAD (coronary artery disease): -- Troponin has been trending up since admission. ECG revealed lateral ST segment changes. Recommend consultation w/ Cardiology (5) Altered mental state: -- Cath urine sample + for villafana sensitive E. Coli. Recommend Cephalosporin therapy History of Present Illness Reason for Consultation: ESRD Attending Physician: Jonh Yeager, History of Present Illness Mr. Mata is a 74 year old white male who is seen at the request of Dr. Yeager to provide inpatient HD. Mr. Mata cannot provide any details of his medical history due to expressive aphasia. All medical information has been obtained from the EMR. Medical records were reviewed today and are summarized as follows: Mr. Mata has ESRD due to vascular disease. He dialyzes TTS at [facility] (3.5hr 3K 2.5Ca 1.0Mg F-180NR EDW 57kg). 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 On 02/04/20 Mr. Mata suffered an unwitnessed fall at home in the bathroom and struck his head. He was evaluated in the ED and treated for a scalp laceration. Head CT revealed a 3.5cm scalp hematoma but no acute CVA. Saturday Mr. Mata underwent his outpatient dialysis treatment. There were no complications noted by staff physician during the treatment. He did attain his prescribed EDW of 57 kg. Post treatment Mr. Mata was very weak and had difficulty performing transfer from his dialysis chair to wheelchair. His noted that he has also recently been exhibiting some personality changes. HD staff physician advised ED evaluation. In the ED Mr. Mata was found to be hypertensive w/ SBP ~ 200 mmHg and hypoxemic w/ SaO2 70's on RA. CXR revealed mild pulmonary vascular congestion. Troponin was mildly elevated and ECG revealed lateral ST segment changes. Admission was advised for BP management, cardiac monitoring and inpatient dialysis. Labs this morning revealed K 7.0 and increasing troponin. SBP remains elevated 160 - 170's. Allergies Allergy/AdvReac Type Severity Reaction Status Date / Time adhesive Allergy Intermediate BLISTERING Verified 02/08/20 14:20 OF SKIN latex Allergy Mild Rash Verified 02/08/20 14:20 Home Medications Home Medications Medication Instructions Recorded Confirmed Type isosorbide mononitrate 60 mg 60 mg PO DAILY #30 tab 11/11/19 02/08/20 Rx tablet,extended release 24 hr Renal Caps 1 cap PO QAM #30 cap 11/20/19 02/08/20 Rx docusate sodium [Stool Softener] 100 mg PO BID #0 cap 11/26/19 02/08/20 Rx polyethylene glycol 3350 [Miralax] 17 gm PO DAILY #0 ea 12/04/19 02/08/20 Rx atorvastatin 80 mg tablet 80 mg PO DAILY #90 tab 12/09/19 02/08/20 Rx citalopram 10 mg tablet 10 mg PO DAILY #30 tab 12/09/19 02/08/20 Rx clopidogrel 75 mg tablet 75 mg PO DAILY #90 tab 12/09/19 02/08/20 Rx amlodipine 5 mg tablet 5 mg PO DAILY #30 tab 12/10/19 02/08/20 Rx calcitriol 0.25 mcg capsule 0.25 mcg PO 3XWK #30 cap 12/10/19 02/08/20 Rx hydrocortisone 2.5 % topical cream 1 appln [place] DAILY PRN #28 gm 12/10/19 02/08/20 Rx with perineal applicator sennosides 8.6 mg tablet 8.6 mg PO QPM PRN #30 tab 12/31/19 02/08/20 Rx levetiracetam 500 mg tablet 500 mg PO SuMoWeFr@1600 #16 tab 01/05/20 02/08/20 Rx hydrocodone-acetaminophen [[place]] 1 tab PO Q6H PRN #10 tab 02/02/20 02/08/20 Rx glipizide 2.5 mg PO DAILY 02/08/20 02/08/20 History metoprolol tartrate 50 mg PO BID 02/08/20 02/08/20 History nitroglycerin [Nitrostat] 0.4 mg SL UD PRN 02/08/20 02/08/20 History sevelamer HCl [Renagel] 800 mg PO AC 02/08/20 02/08/20 History Patient History Medical History Arteriosclerotic cardiovascular disease s/p CABG 2007 Benign prostatic hyperplasia Carotid artery stenosis s/p remote R & L endarterectomies with L re-occlusion sometime before 2010. Being monitored by [facility] neuro, on Plavix. Chronic kidney disease Congestive heart failure (CHF) Depression Diabetes mellitus, type 2 A1C 5.4% 11/2019. Not on any medication. 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 Seizure disorder Stable on Keppra, no seizure for "a long time." Follows with [facility] neurology. SNHL (sensorineural hearing loss) Surgical History History of aorto-femoral bypass History of bypass graft (non vein) Aortic-femoral or bifemoral History of carotid endarterectomy L 1998, R 2009 History of cataract surgery RT/LEFT History of colonoscopy History of esophagogastroduodenoscopy (EGD) History of tooth extraction History of vascular access device IJ FOR DIAYLSIS S/P CABG (coronary artery bypass graft) (2007) [facility] Family History Brother Hypertension Hypercholesteremia Sister Diabetes Unknown Hypertension Cardiac disorder Social History Preferred Language: Slovenian Communication Ability: Effective Visual Impairment: No Limitations End Maker Required: No Beliefs That Will Affect Care: None marital status: Current Living Situation: Spouse Current Living Situation Comment: in an apartment per Other Information That Helps Us Care for You: No Feels Safe at Home: Yes Safety Concerns: Feels Safe At This Time Smoking Status: Former smoker Tobacco Type: cigarettes ; Cigarettes Per Day: 30 ; Do You Dip or Chew Tobacco: No ; Second Hand Exposure: No ; Hx Alcohol Use: No Hx Substance Use: No caffeine: No Seatbelt Use: always Review of Systems Review of Systems: Unobtainable due to expressive aphasia Physical Exam Constitutional: + frail appearing; not disheveled Eyes: PERRL, conjunctivae normal, anicteric sclerae Neck: trachea midline, no thyromegaly Respiratory: no respiratory distress Auscultation: + rales Cardiovascular: Rate/Rhythm: regular rate and regular rhythm Extremities: + AV fistula (+ bruit); no edema Gastrointestinal (Abdomen): Inspection/Auscultation: abdomen normal to inspection; abdomen not distended Neurologic: awake Results & Data Vital Signs (Past 12 Hours) Vital Signs Temp Pulse Resp BP Pulse Ox 02/09/20 09:18 36.5 C 42 L 02/09/20 08:00 36.8 C 39 L 20 127/63 97 02/09/20 04:33 36 L 28 H 107/58 L 100 02/09/20 04:06 34 L 112/60 02/09/20 03:11 36.8 C 35 L 16 91/52 L 96 02/09/20 02:15 37 C 35 L 16 124/60 93 02/09/20 01:24 32 L 103/56 L 02/09/20 00:41 111/49 L 02/08/20 22:46 36.6 C 74 16 134/86 92 Laboratory Results Laboratory Tests 02/09/20 02/09/20 06:11 06:11 WBC 12.26 H Hgb 12.7 L Hct 38.1 L Plt Count 198 Sodium 134 L Potassium 7.0 H* D Chloride 99 Carbon Dioxide 29 BUN 62 H Creatinine 5.60 H* D Glucose 139 H PG Care Time/CCT Total # of Minutes Spent Total Time Spent with Patient: Total time spent is greater than 50% in coordination of care (as documented) at patient's floor/unit and/or counseling patient: Coding Level of Care Code 95691 Inpt Consult Level 5 Diagnoses End stage renal failure on dialysis N18.6; Z99.2 Hypertensive urgency I16.0 Acute exacerbation of CHF (congestive heart failure) I50.9 CAD (coronary artery disease) I25.10 Coronary Disease-Associated Artery/Lesion type: [place] artery [place] vs. transplanted heart: [place] heart Associated angina: without angina Altered mental state R41.0 Altered mental status type: delirium (1) CAD (coronary artery disease) Coronary Disease-Associated Artery/Lesion type: [place] artery [place] vs. transplanted heart: [place] heart Associated angina: without angina Qualified Code(s): I25.10 - Atherosclerotic heart disease of [place] coronary artery without angina pectoris (2) Altered mental state Altered mental status type: delirium Qualified Code(s): R41.0 - Disorientation, unspecified
--- NOTE | 2020-02-09 11:33 | Dialysis Progress Note ---
Date of Service February 09, 2020 Assessment & Plan (1) ESRD on hemodialysis: Stable on HD. No change to current treatment plan Admission and Anticipated Discharge Date Admission Date: February 08, 2020 Subjective Mr. Mata was seen during HD. IJ THC running A -->A. SBP 150 mmHg. NAD Physical Exam Respiratory: no respiratory distress Auscultation: + rales Cardiovascular: Rate/Rhythm: regular rate and regular rhythm Gastrointestinal (Abdomen): normal bowel sounds, soft, nontender, no hepatosplenomegaly Neurologic: alert but agitated Results & Data ([facility]) Vital Signs (Past 12 Hours) Vital Signs Temp Pulse Pulse Resp BP BP Pulse Ox 02/09/20 10:40 58 L 171/100 H 02/09/20 10:20 74 147/92 H 02/09/20 10:00 60 164/83 H 02/09/20 09:49 68 148/87 H 02/09/20 09:29 39 L 131/59 L 02/09/20 09:18 36.5 C 42 L 02/09/20 08:00 36.8 C 39 L 20 127/63 97 02/09/20 04:33 36 L 28 H 107/58 L 100 02/09/20 04:06 34 L 112/60 02/09/20 03:11 36.8 C 35 L 16 91/52 L 96 02/09/20 02:15 37 C 35 L 16 124/60 93 02/09/20 01:24 32 L 103/56 L 02/09/20 00:41 111/49 L [facility] Procedure Codes (Charges) Renal/Urologic Renal/Urologic: 19312 Hemodialysis, One Evaluation Coding Level of Care Code None Diagnoses ESRD on hemodialysis N18.6; Z99.2 CPT Codes Renal/Urologic - Renal/Urologic: 46586 Hemodialysis, One Evaluation ([id number])
--- NOTE | 2020-02-09 13:13 | Hospitalist Progress Note ---
Date of Service February 09, 2020 Assessment & Plan (1) Altered mental state: Pt is a 74yo gentleman with a PMHx significant for prior CVA, CAD, Diabetes, ESRD on dialysis who presents with altered mental status. Altered mental status -Pt with Hx of recent fall secondary to proximal muscle weakness, notable facial bruising -CT head with no acute changes -etiology of AMS unclear currently- no indication of infection, ?due to polypharmacy -Also BP significantly elevated on admission-has since normalized post dialysis (see below) -will f/u with family to determine mental baseline ESRD on dialysis -Baseline Cr ~3, currently elevated -Pt received dialysis 02/08 Hypoxia: -Improving after dialysis -on RA when seen Volume overload: -as above, received dialysis 02/08 Diabetes mellitus with circulatory complication: -Hold home glipizide. -ISS while hospitalized CAD (coronary artery disease) -Multiple plaques in coronary arteries, peripheral arteries, renal arteries. -Continue atorvastatin and clopidogrel. Constipation -chronic -KUB with noted moderate stool burden -continue scheduled miralax with PRN senna Inferior lead T-wave inversions -continue metoprolol tartrate 50mg BID Depression -continue home Celexa FEN/GI: Dialysis, renal diet. CODE STATUS: Full DVT prophylaxis: Heparin 5000 units SQ BID Dispo: Med/surg with tele Admission and Anticipated Discharge Date Admission Date: February 08, 2020 Supervising Physician Co-Signing Physician Notes I personally examined the patient and verified all grande points of history and exam, discussed case, and agree with decision making with Dr Michael. hard to discern HPI or ROS - but seems to deny sob and pain. later seems to have leg pain but then on exam pain resolves vitals noted nad. heent bruising around both eyes. lungs cta b/l no rrw good effort skin no rashes no pallor or icterus neuro no focal deficits msk no pain or restricted ROM particularly with any ROM b/l LE. AMS - ?back to baseline - dr stahl's descriptions on admission quite helpful; will need ongoing corroborating story from family on baseline/recent baseline/changes that led to admission acute on chronic diastolic CHF (HFpEF) present on admission - probably relates more to ESRD/HD status - now improving. HD today done as well elevated troponin/CAD - similar trop elevation in november (in context of syncope) deemed supply/demand mismatch - follow trop but right now appears asymptomatic. continue plavix and lipitor, can't initiate ACEi/ARB due ESRD (consider nitrate/hydralazine - follow pressures though since was here not too long ago for syncope); consider beta amrit (but again HR might not be able to tolerate it) othewise as above Subjective Pt seen this PM after dialysis. Sitting up in chair at bedside, talkative but without meaning. Sitter at bedside. Review of Systems Review of Systems: Unobtainable due to cognitive status Physical Exam Physical Exam: General: Alert, orientedx1. No acute distress Skin: Raccoon black bruising noted around eyes Psych: mood cannot be determined Neuro: unstable on feet HEENT: Raccoon black bruising noted around eyes Chest: Nontender to palpation. CV: RRR, Normal s1, s2. No murmurs appreciated Resp: Breath sounds clear bilaterally, no increased effort of breathing. No crackles/rhonchi/rales. Abdomen: Soft, nondistended. Extremities: No edema in lower extremities bilaterally. Results & Data Results & Data ([facility]) Vital Signs (Past 12 Hours) Vital Signs Temp Pulse Pulse Resp BP BP Pulse Ox 02/09/20 12:40 64 153/84 H 02/09/20 12:20 77 164/77 H 02/09/20 12:00 74 161/96 H 02/09/20 11:40 66 161/100 H 02/09/20 11:20 66 151/94 H 02/09/20 11:00 81 180/100 H 02/09/20 10:40 58 L 171/100 H 02/09/20 10:20 74 147/92 H 02/09/20 10:00 60 164/83 H 02/09/20 09:49 68 148/87 H 02/09/20 09:29 39 L 131/59 L 02/09/20 09:18 36.5 C 42 L 02/09/20 08:00 36.8 C 39 L 20 127/63 97 02/09/20 04:33 36 L 28 H 107/58 L 100 02/09/20 04:06 34 L 112/60 02/09/20 03:11 36.8 C 35 L 16 91/52 L 96 02/09/20 02:15 37 C 35 L 16 124/60 93 02/09/20 01:24 32 L 103/56 L Resident Activity Tracking Resident Involvement: Resident Care Provided Care Provided: Adult Hospital Medicine (1) Altered mental state Altered mental status type: delirium Qualified Code(s): R41.0 - Disorientation, unspecified
[2020-02-09] MEDS: AMLODIPINE BESYLATE 5 MG TAB PO SCH (14:09)
[2020-02-09] MEDS: HEPARIN SOD (PORCINE) 1000 UNIT/ML 10 ML VIAL IV SCH ×2 (14:47→14:48)
--- NOTE | 2020-02-09 15:24 | Electrocardiogram Report ---
Test Reason : Blood Pressure : / mmHG Vent. Rate : 104 BPM Atrial Rate : 104 BPM P-R Int : 216 ms QRS Dur : 124 ms QT Int : 358 ms P-R-T Axes : 056 -44 100 degrees QTc Int : 470 ms Sinus tachycardia with 1st degree A-V block Left axis deviation Non-specific intra-ventricular conduction delay Abnormal ECG When compared with ECG of 27-NOV-2019 16:38, Sinus rhythm has replaced Junctional rhythm Questionable change in QRS duration Confirmed by Kareem Gallardo ([id number]) on 02/09/2020 3:23:53 PM Referred By: REFERRED SELF Confirmed By:Kareem Gallardo
--- NOTE | 2020-02-09 16:10 | Electrocardiogram Report ---
Test Reason : Blood Pressure : / mmHG Vent. Rate : 076 BPM Atrial Rate : 079 BPM P-R Int : 338 ms QRS Dur : 104 ms QT Int : 468 ms P-R-T Axes : 055 263 169 degrees QTc Int : 526 ms Sinus rhythm with sinus arrhythmia with 1st degree A-V block Right superior axis deviation Inferior-posterior infarct , age undetermined Prolonged QT Abnormal ECG When compared with ECG of 09-FEB-2020 00:25, (unconfirmed) Inferior-posterior infarct is now Present T wave inversion more evident in Lateral leads Confirmed by Kareem Gallardo ([id number]) on 02/09/2020 4:10:23 PM Referred By: REFERRED SELF Confirmed By:Kareem Gallardo
--- NOTE | 2020-02-09 17:52 | Billing Data ---
Date of Service February 09, 2020 Coding Level of Care Code 11547 Subseq Hosp Care Lvl 3
[2020-02-09 18:56] LABS: BUN Creatinine Ratio 8.4 (10-20); Calcium 9.5 mg/dl (8.5-10.1); Troponin I 0.713 ng/ml (0-0.045)
[2020-02-09 19:12] LABS: Creatinine Clr Calc Pharmacy 16.6 ml/min; Est GFR (African American) 22.5; Est GFR (Non-African American) 19.4
[2020-02-10] MEDS ORDERED: ONDANSETRON INJ 2 MG/ML 2 ML VIAL IV PRN (03:19)
[2020-02-10 07:56] LABS: Hematocrit (blood only) 46.7 % (42-52); Hemoglobin 15.2 g/dL (14.0-18.0); Mean Corpuscular Hemoglobin 30.8 pg (25-34); Mean Corpuscular Hgb Conc 32.5 g/dL (32-36); Mean Corpuscular Volume 94.7 fL (80-100); Mean Platelet Volume 11.1 fL (7.4-10.4); Platelet Count 183 K/uL (130-400); RDW Coefficient of Variation 15.4 % (11.5-14.5); RDW Standard Deviation 53.5 fL (36.4-46.3); Red Blood Count 4.93 M/uL (4.7-6.1); White Blood Count 12.13 K/uL (4.8-10.8)
[2020-02-10] MEDS: INSULIN ASPART 100 UNITS/ML 3 ML PEN SC SCH ×4 (08:22→21:05)
[2020-02-10] MEDS: NEPHROCAPS PO SCH (08:27)
[2020-02-10] MEDS: CLOPIDOGREL BISULFATE 75 MG TAB PO SCH (08:27)
[2020-02-10] MEDS: DOCUSATE SODIUM 100 MG CAP PO SCH ×2 (08:27→21:05)
[2020-02-10] MEDS: SEVELAMER HCL 800 MG TABLET PO SCH ×3 (08:27→17:21)
[2020-02-10] MEDS: CITALOPRAM 20 MG TAB PO SCH (08:27)
[2020-02-10] MEDS: AMLODIPINE BESYLATE 5 MG TAB PO SCH (08:27)
[2020-02-10] MEDS: ATORVASTATIN 40 MG TAB PO SCH (08:27)
[2020-02-10] MEDS: POLYETHYLENE (MIRALAX) 17 GM PACK PO SCH (08:27)
[2020-02-10] MEDS: HEPARIN SOD 5,000 UNIT/0.5 ML VIAL SQ SCH ×2 (08:28→21:05)
[2020-02-10] MEDS: CALCITRIOL 0.25 MCG CAPSULE PO SCH (08:28)
[2020-02-10 08:32] LABS: BUN Creatinine Ratio 9.7 (10-20); Calcium 9.6 mg/dl (8.5-10.1); Creatinine Clr Calc Pharmacy 12.5 ml/min; Est GFR (Non-African American) 13.8; Troponin I 0.517 ng/ml (0-0.045)
--- NOTE | 2020-02-10 09:13 | XRay Report ---
XR chest 2V PA/lateral CLINICAL HISTORY: hypoxia dyspnea COMPARISON STUDY: 02/08/2020 FINDINGS: Mild stable cardiomegaly. Mild prominence of pulmonary vasculature improved from the prior study. No well-defined focal infiltrate. IMPRESSION: Improving pulmonary vascular congestion. ACT 112: Negative or not required by law. The above report was generated using voice recognition software. It may contain grammatical, syntax or spelling errors. Electronically signed by: Beto Tovar M.D. 02/10/2020 9:11 AM
[2020-02-10] MEDS: ISOSORBIDE MONO EXTENDED REL 30 MG TABCR PO SCH (09:34)
[2020-02-10] MEDS: HydrALAZINE 10 MG TAB PO SCH ×2 (09:34→21:05)
--- NOTE | 2020-02-10 09:36 | Nephrology Progress Note ---
Date of Service February 10, 2020 Assessment & Plan (1) ESRD on hemodialysis: -- Volume status improved. Awaiting results of PRP this am (K+ not reported due to hemolysis) -- Will schedule next HD for am -- Outpatient HD Rx: RACHAEL Liu TTS 3.5hr 3K 2.5Ca 1.0Mg F-180NR EDW 57kg -- May need to adjust EDW at outpatient HD unit at time of discharge (2) Hypertensive urgency: -- SBP ~ 200 mmHg at time of admission -- 10/05 [place] [facility] [place] 7cm, L 9cm. < 60% R RA stenosis, L proximal RA stent patent w/ < 60% stenosis in remainder of artery -- BP improving following UF. Will monitor -- Once potassium corrected may need to consider adding ELIN inhibitor to current BP regimen (3) Acute exacerbation of CHF (congestive heart failure): -- Will monitor UO during hospitalization. If nonoliguric patient may benefit from oral diuretic (4) Arteriosclerotic cardiovascular disease: -- Troponin continues to trend up. Admission ECG revealed lateral ST segment changes. Recommend consultation w/ Cardiology (5) Altered mental state: -- Blood cx are NGTD x 2 -- Head CT 02/08: chronic small vessel disease and chronic L frontal lobe infarct Admission and Anticipated Discharge Date Admission Date: February 08, 2020 Subjective Mr. Mata was seen & examined in his hospital room this morning. He has expressive aphasia. No history obtained. HD last performed yesterday without complication for 3 L UF. Mr. Mata is currently breathing comfortably flat in bed on O2 at 2 L/min NC. Review of Systems Review of Systems: Unobtainable due to expressive aphasia Physical Exam Constitutional: + frail appearing periorbital ecchymosis Eyes: PERRL, conjunctivae normal, anicteric sclerae Neck: trachea midline, no thyromegaly Respiratory: no respiratory distress Auscultation: + rales Cardiovascular: Rate/Rhythm: regular rate and regular rhythm Extremities: + AV fistula (+ bruit); no edema Gastrointestinal (Abdomen): normal bowel sounds, soft, nontender, no hepatosplenomegaly Inspection/Auscultation: abdomen normal to inspection; abdomen not distended Neurologic: awake Results & Data ([facility]) Vital Signs (Past 12 Hours) Vital Signs Temp Pulse Resp BP Pulse Ox 02/10/20 07:34 36.5 C 92 H 17 154/88 H 100 02/10/20 04:44 37.1 C 88 18 134/83 99 02/09/20 23:34 36.9 C 98 H 19 160/90 H 96 Laboratory Results Laboratory Tests 02/10/20 07:25 Sodium 132 L Potassium Chloride 98 Carbon Dioxide 26 BUN 39 H D Creatinine 4.01 H D Glucose 133 H Calcium 9.6 PG Care Time/CCT Total # of Minutes Spent Total Time Spent with Patient: Total time spent is greater than 50% in coordination of care (as documented) at patient's floor/unit and/or counseling patient: Coding Level of Care Code 78466 Subseq Hosp Care Lvl 3 Diagnoses ESRD on hemodialysis N18.6; Z99.2 Hypertensive urgency I16.0 Acute exacerbation of CHF (congestive heart failure) I50.9 Arteriosclerotic cardiovascular disease I25.10 Altered mental state R41.0 Altered mental status type: delirium (1) Altered mental state Altered mental status type: delirium Qualified Code(s): R41.0 - Disorientation, unspecified
--- NOTE | 2020-02-10 13:36 | Hospitalist Progress Note ---
Date of Service February 10, 2020 Assessment & Plan (1) Altered mental state: Pt is a 74yo gentleman with a PMHx significant for prior CVA, CAD, Diabetes, ESRD on dialysis who presents with altered mental status. Altered mental status -Pt with Hx of recent fall secondary to proximal muscle weakness, notable facial bruising -CT head with no acute changes -etiology of AMS unclear currently- no indication of infection, ?due to polypharmacy -Also BP significantly elevated on admission-has since normalized post dialysis (see below) -f/u with about baseline- she states that he has had a personality change for the last 3 weeks. Describes him as "rowdy" and "not the man she " -will get an MRI and consider neurology consult. ESRD on dialysis -Baseline Cr ~3, currently elevated -Pt received dialysis 02/08 Hypoxia: -Improving after dialysis -on RA when seen Volume overload: -as above, received dialysis 02/08 Diabetes mellitus with circulatory complication: -Hold home glipizide. -ISS while hospitalized CAD (coronary artery disease) -Multiple plaques in coronary arteries, peripheral arteries, renal arteries. -Continue atorvastatin and clopidogrel. Constipation -chronic -KUB with noted moderate stool burden -continue scheduled miralax with PRN senna Inferior lead T-wave inversions -continue metoprolol tartrate 50mg BID Depression -continue home Celexa Elevated troponins -downtrended -chronic, questionable lateral changes on EKG -will continue to monitor FEN/GI: Dialysis, renal diet. CODE STATUS: Full DVT prophylaxis: Heparin 5000 units SQ BID Dispo: Med/surg with tele Admission and Anticipated Discharge Date Admission Date: February 08, 2020 Supervising Physician Co-Signing Physician Notes I personally examined the patient and verified all grande points of history and exam, discussed case, and agree with decision making with Dr Michael. resting comfortably. dr michael called in my presence. discussed results of phone call with dr michael. vitals noted nad. heent bruising around both eyes. breathing unlabored no accessory muscles good effort skin no rashes no pallor or icterus. AMS - ?etiology. hard to tell baseline but in dr michael's discussions with she relates a fairly abrupt worsening a few weeks ago. nothing currently clear that would be provoking delirium (no overt infectious, metabolic, toxic factors) -- possibly post concussive from fall, but relays that worsening seems to have preceeded the fall in timeline - MRI brain, consider neuro consult. ongoing supportive care. PT/OT eval and treat acute on chronic diastolic CHF (HFpEF) present on admission - probably relates more to ESRD/HD status - now overall improved. continue to follow elevated troponin/CAD - similar trop elevation in november (in context of syncope) deemed supply/demand mismatch - appears asymptomatic and troponin peaked at fairly low level. continue plavix and lipitor, can't initiate ACEi/ARB due ESRD -- utilize nitrates + hydralazine; consider beta amrit (but again HR might not be able to tolerate it) otherwise as above Subjective Pt seen this AM. Had a restless night per the sitter. Was resting in bed, states he is doing well. Review of Systems Review of Systems: Unobtainable due to cognitive status Physical Exam Physical Exam: General: Alert, orientedx1. No acute distress Skin: Raccoon black bruising noted around eyes, bruising on arms Psych: mood cannot be determined Neuro: unstable on feet HEENT: Raccoon black bruising noted around eyes Chest: Nontender to palpation. CV: RRR, Normal s1, s2. Blowing murmur appreciated Resp: Breath sounds clear bilaterally, no increased effort of breathing. No crackles/rhonchi/rales. Abdomen: Soft, nondistended. Extremities: No edema in lower extremities bilaterally. Results & Data Results & Data ([facility]) Vital Signs (Past 12 Hours) Vital Signs Temp Pulse Resp BP Pulse Ox 02/10/20 11:29 152/91 H 02/10/20 11:02 37.0 C 90 18 166/91 H 98 02/10/20 07:34 36.5 C 92 H 17 154/88 H 100 02/10/20 04:44 37.1 C 88 18 134/83 99 Resident Activity Tracking Resident Involvement: Resident Care Provided Care Provided: Adult Hospital Medicine (1) Altered mental state Altered mental status type: delirium Qualified Code(s): R41.0 - Disorientation, unspecified
--- NOTE | 2020-02-10 14:23 | Electrocardiogram Report ---
Test Reason : Blood Pressure : / mmHG Vent. Rate : 097 BPM Atrial Rate : 097 BPM P-R Int : 304 ms QRS Dur : 106 ms QT Int : 376 ms P-R-T Axes : 055 242 045 degrees QTc Int : 477 ms Sinus rhythm with 1st degree A-V block Right superior axis deviation Incomplete right bundle branch block , plus right ventricular hypertrophy Abnormal ECG When compared with ECG of 09-FEB-2020 10:29, ST more depressed Anterior leads T wave inversion no longer evident in Inferior leads T wave inversion less evident in Anterolateral leads Confirmed by Kareem Gallardo ([id number]) on 02/10/2020 2:22:55 PM Referred By: REFERRED SELF Confirmed By:Kareem Gallardo
[2020-02-10] MEDS ORDERED: levETIRAcetam 500 MG TAB PO SCH (16:00)
--- NOTE | 2020-02-10 18:40 | Billing Data ---
Date of Service February 10, 2020 Coding Level of Care Code 62069 Subseq Hosp Care Lvl 3
[2020-02-11] MEDS ORDERED: SODIUM CHLORIDE 0.9% 1000ML 1,000 ML IV PRN (07:00)
--- NOTE | 2020-02-11 07:17 | Magnetic Resonance Report ---
MRI OF THE BRAIN WITHOUT CONTRAST CLINICAL HISTORY: acute dementia COMPARISON STUDY: MRI of the brain September 12, 2010. Head CT February 08, 2020. TECHNIQUE: Utilizing a 1.5 Barbra magnet and dedicated coil, multiplanar, multiecho imaging of the bra in was performed without IV contrast. FINDINGS: No foci of restricted diffusion to suggest acute infarct. Note is made of extensive left fr ontal encephalomalacia. There is also mild encephalomalacia within the left parietal lobe. Extensive white matter hypodensity is noted. The basilar cisterns are patent. There are no extra axial collecti ons. Associated dilatation of the left lateral ventricle is noted. This is due to volume loss. The ba silar cisterns are patent. There are no extra-axial collections. No intracranial masses are identifie d on this unenhanced examination. Abnormal appearance of the flow-void for the left internal carotid artery at the level of the skull base is unchanged from earlier MRI of September 04, 2010. This findin g is chronic. No calvarial lesions are noted. Orbits are unremarkable. IMPRESSION: 1. No acute intracranial findings. 2. Extensive left frontal lobe encephalomalacia which suggests an old infarct. 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 3. Moderate to marked atrophy. Extensive small vessel disease. ACT 112: Negative or not required by law. Electronically signed by: Madan Mancilla M.D. 02/11/2020 7:16 AM
[2020-02-11] MEDS: SEVELAMER HCL 800 MG TABLET PO SCH ×3 (08:53→17:25)
[2020-02-11] MEDS: POLYETHYLENE (MIRALAX) 17 GM PACK PO SCH (08:54)
[2020-02-11] MEDS: DOCUSATE SODIUM 100 MG CAP PO SCH ×2 (08:55→20:40)
[2020-02-11] MEDS: HEPARIN SOD 5,000 UNIT/0.5 ML VIAL SQ SCH ×3 (09:36→21:29)
[2020-02-11] MEDS: INSULIN ASPART 100 UNITS/ML 3 ML PEN SC SCH ×4 (09:36→20:33)
[2020-02-11] MEDS: NEPHROCAPS PO SCH (09:36)
--- NOTE | 2020-02-11 09:43 | Discharge Summary ---
Date of Service February 12, 2020 Admission HPI Per Admitting Provider Miguel Mata is a 74 year old male with ESRD on dialysis who present to the ER with altered mental state since his fall 4 days previously. His reports he has been getting progressively worse with delirium symptoms such as trying to take his clothes off and possibly hallucinating. At dialysis today he was not co-operating and appeared more confused so was brought to the ER via EMS for evaluation. While in the ER he was noted to become much more short of breath as he had been lying flat for the CT head. He is also hypoxic requiring 8L via oxymask therefore was referred to the medicine team for admission. He is yet to have any of his medication today when seen as he usually takes this after dialysis on those days. History is somewhat limited from the patient due to his expressive dysphasia and unclear if he is fully understanding my questions. But he denies any current pain. He agrees he is more confused than usual. He appears to be orientated to time, place and person. But slower at answering and using less words than he does usually. He is well known to me from prior admission and is difficult to know whether he is getting confused as he has chronic dysphasia which gets worse during episodes of confusion. On his last admission he developed a catheter-associated urine tract infection which was the cause of his confusion on that occasion after a similar episode of flash pulmonary edema after lying flat in the ER and missing his usual medication. Admission Exam Per Admitting Provider Constitutional: well developed and + frail appearing; + not well nourished and no acute distress Eyes: PERRL, conjunctivae normal, anicteric sclerae ENMT: external ear and nose normal, oropharynx normal Neck: trachea midline, no thyromegaly Respiratory: + respiratory distress, + retractions, + uses accessory muscles and + tachypneic; no labored breathing Auscultation: + diminished lung sounds (bibasal) and + crackles (bibasal) Cardiovascular: Rate/Rhythm: regular rhythm and + tachycardic Heart Sounds: + murmur (systolic) Extremities: normal capillary refill and + pedal edema; no calf tenderness Gastrointestinal (Abdomen): Inspection/Auscultation: normal bowel sounds Percussion/Palpation: abdomen soft; abdomen nontender, no guarding and abdomen not rigid Skin: Trauma: + hematoma (resolving hematoma right scalp, raccoon eyes) Neurologic: moves all extremities, + focal motor deficit (chronic right foot drop but no new focal deficit), awake and + confused (dysphasia worse than usual) Speech / Cognition: + expressive aphasia; no receptive aphasia Motor/Sensory: no tremor and no pronator drift Psychiatric: Orientation: alert and oriented x 3 Lymphatic: no cervical or axillary lymphadenopathy Principal Diagnosis Altered mental Status Discharge Exam General: Alert, orientedx1. No acute distress Skin: Raccoon black bruising noted around eyes, bruising on arms Psych: mood cannot be determined Neuro: unstable on feet HEENT: Raccoon black bruising noted around eyes Chest: Nontender to palpation. CV: RRR, Normal s1, s2. Blowing murmur appreciated Resp: Breath sounds clear bilaterally, no increased effort of breathing. Abdomen: Soft, nondistended. Extremities: No edema in lower extremities bilaterally. Discharge Data Allergies Allergy/AdvReac Type Severity Reaction Status Date / Time adhesive Allergy Intermediate BLISTERING Verified 02/08/20 14:20 OF SKIN latex Allergy Mild Rash Verified 02/08/20 14:20 Consultations 02/08/20 16:35 ED Decision to Admit Stat 02/08/20 18:24 Consult Nephrology Routine Ordered Studies 02/08/20 14:31 CT head/brain wo con Stat 02/10/20 16:25 MR brain wo con Routine Hospital Course (1) Altered mental state: Pt is a 74yo gentleman with a PMHx significant for prior CVA, CAD, Diabetes, ESRD on dialysis who presents with altered mental status. Admitted on Feb 08 2020 and discharged on Feb 12 2020. Altered mental status -Pt with Hx of recent fall secondary to proximal muscle weakness, notable facial bruising -CT head with no acute changes but noted left frontal infarct -MRI Brain with large left-sided encephalomalacia with moderate to severe atrophy -likely cause of AMS and personality changes -neurology followup outpatient ESRD on dialysis -Baseline Cr ~3 -currently being treated with dialysis Hypoxia: -Improving after dialysis -on RA when seen Volume overload: -as above, receiving dialysis Diabetes mellitus with circulatory complication: -continue home glipizide. CAD (coronary artery disease) -Multiple plaques in coronary arteries, peripheral arteries, renal arteries. -Continue atorvastatin and clopidogrel. Constipation -chronic -KUB with noted moderate stool burden -continue miralax with PRN senna Inferior lead T-wave inversions -continue metoprolol tartrate 50mg BID Depression -continue home Celexa Elevated troponins -downtrended -chronic, questionable lateral changes on EKG -will continue to monitor Total Time Total Time Spent Total Time Spent (In Minutes): <30 Discharge Plan Discharge Items Patient Disposition: Home - Home Health Services Reason For Visit: CONFUSION Discharge Diagnosis: Altered mental status Activity: Per Instructions section Non-emergency contact: Primary Care Provider and Neurologist Call non-emergency contact if: you have any medication questions and your symptoms worsen Follow-up/Referrals: Erick Zapata III, MD [Primary Care Provider] - Olivia Shell MD [Physician] - 02/18/20 11:00 am (virtual visit- the office will call you at 11:00 Am on February 17 for this appointment) Diet: Dialysis Renal Addtl Attending Provider Instructions: Mr. Mata, you were admitted with altered mental status. You seemed to have returned to your baseline Continue to use the home health services and your walker at home to avoid falls. Continue to take your miralax and senna at home to help with constipation. We ask that you follow up with your primary care provider and the neurologist you have been scheduled with after discharge. Your neurology appointment is on February 18 2020 at 11AM. It was a pleasure taking care of you during your stay here! Pending Studies at Discharge: No Stand-Alone Forms: My [facility] Lightera, Smoking Cessation Medications and DC Order Prescriptions: New lisinopril 5 mg tablet 5 mg PO DAILY Qty: 30 RF: 0 Continued isosorbide mononitrate 60 mg tablet extended release 24 hr 60 mg PO DAILY Qty: 30 RF: 5 atorvastatin 80 mg tablet 80 mg PO DAILY Qty: 90 RF: 3 clopidogrel 75 mg tablet 75 mg PO DAILY Qty: 90 RF: 3 citalopram 10 mg tablet 10 mg PO DAILY Qty: 30 RF: 5 sennosides [Senokot] 8.6 mg tablet 8.6 mg PO QPM PRN (Reason: Constipation) Qty: 30 RF: 0 amlodipine 5 mg tablet 5 mg PO DAILY Qty: 90 RF: 3 levetiracetam [Keppra] 500 mg tablet 500 mg PO [id number]@1600 Qty: 16 RF: 8 calcitriol 0.25 mcg capsule 0.25 mcg PO 3XWK Qty: 30 RF: 0 hydrocortisone [Proctosol HC] 2.5 % cream with perineal applicator 1 appln HI DAILY PRN (Reason: itching) Qty: 28 RF: 0 hydrocodone-acetaminophen [[place]] 5-325 mg tablet 1 tab PO Q6H PRN (Reason: pain) Qty: 10 RF: 0 Renal Caps 1 mg Capsule 1 cap PO QAM Qty: 30 RF: 0 docusate sodium [Stool Softener] 100 mg Capsule 100 mg PO BID Qty: 0 RF: 0 polyethylene glycol 3350 [Miralax] 17 gram powder in packet 17 gm PO DAILY Qty: 0 RF: 0 metoprolol tartrate 50 mg tablet 50 mg PO BID RF: 0 sevelamer HCl [Renagel] 800 mg tablet 800 mg PO AC RF: 0 nitroglycerin [Nitrostat] 0.4 mg tablet, sublingual 0.4 mg SL UD PRN (Reason: Chest Pain) RF: 0 Discontinued glipizide 2.5 mg tablet extended release 24hr 2.5 mg PO DAILY RF: 0 Discharge Orders: Discharge Order (Routine); Ordered 02/12/20 Ordered By: Bonny Michael Admission Data Admit Date/Time: 02/08/20 17:00 Attending Provider: Jonh Yeager Admit Provider: Jarrod Henderson Primary Care Provider: Erick Zapata III Other Providers: [facility] ; [facility] ; [facility] ; [facility] ; Jarrod Henderson ; Nas Villagran Other DC Date/Time DO NOT enter until pt leaves facility: 02/12/20 15:10 Supervising Physician Co-Signing Physician Notes I personally examined the patient and verified all grande points of history and exam, discussed case, and agree with decision making with Dr Michael. no new issues. now would like to take him home. vitals noted nad. heent bruising around both eyes. breathing unlabored no accessory muscles good effort skin no rashes no pallor or icterus. AMS - large area of frontal encephalomalacia seems to explain behaviors well - just not so much the acuity of them. that said unfortunately little probably able to be done. neuro eval as outpt for completeness. supportive care. acute on chronic diastolic CHF (HFpEF) present on admission - probably relates more to ESRD/HD status - now overall improved. breathing appears stable now. stable for home. elevated troponin/CAD - similar trop elevation in november (in context of syncope) deemed supply/demand mismatch - appears asymptomatic and troponin peaked at fairly low level. continue plavix and lipitor, ACEi ok per nephro (started). as outpt consider beta amrit and/or hydralazine as well. DM - stopped sulfonylurea to minimize hypoglycemia risk. outpt f/u otherwise. dispo - after considerable time/considerations and looking at all options, has decided to take him home. home health set up. otherwise as above Resident Activity Tracking Resident Involvement: Resident Care Provided Care Provided: Adult Hospital Medicine
--- NOTE | 2020-02-11 09:52 | Nephrology Progress Note ---
Date of Service February 11, 2020 Assessment & Plan (1) ESRD on hemodialysis: -- Will provide heparin free HD today. Will UF to EDW 54 kg -- Outpatient HD Rx: [facility] Alexa TTS 3.5hr 3K 2.5Ca 1.0Mg F-180NR EDW 57kg -- May need to adjust EDW at outpatient HD unit at time of discharge (2) Hypertensive urgency: -- SBP ~ 200 mmHg at time of admission -- 10[place]05 [place] [facility] [place] 7[place], L 9cm. < 60% R RA stenosis, L proximal RA stent patent w/ < 60% stenosis in remainder of artery -- BP improving following UF. Will monitor -- Will add Lisinopril 5 mg each morning to medical regimen (3) Acute exacerbation of CHF (congestive heart failure): -- Will monitor UO during hospitalization. If nonoliguric patient may benefit from oral diuretic (4) Arteriosclerotic cardiovascular disease: -- Asymptomatic (5) Altered mental state: -- Blood cx are NGTD x 2 -- Head CT 02/08: chronic small vessel disease and chronic L frontal lobe infarct Admission and Anticipated Discharge Date Admission Date: February 08, 2020 Subjective Mr. Mata was seen & examined in his hospital room this morning. He was in NAD. No medical concerns - has expressive aphasia Review of Systems Review of Systems: Unobtainable due to expressive aphasia Physical Exam Constitutional: + frail appearing periorbital ecchymosis Eyes: PERRL, conjunctivae normal, anicteric sclerae Neck: trachea midline, no thyromegaly Respiratory: no respiratory distress Auscultation: + rales Cardiovascular: Rate/Rhythm: regular rate and regular rhythm Extremities: + AV fistula (+ bruit); no edema Gastrointestinal (Abdomen): normal bowel sounds, soft, nontender, no hepatosplenomegaly Inspection/Auscultation: abdomen normal to inspection; abd omen not distended Neurologic: awake Results & Data ([facility]) Vital Signs (Past 12 Hours) Vital Signs Temp Pulse Pulse Pulse Resp BP BP 02/11/20 09:20 94 H 103/86 02/11/20 09:00 91 H 104/69 02/11/20 08:40 43 L 107/58 L 02/11/20 08:25 87 136/80 02/11/20 08:20 37.5 C 87 02/11/20 08:00 37.0 C 93 H 18 151/92 H 02/11/20 04:46 36.3 C L 89 16 163/88 H 02/10/20 23:39 37.0 C 86 18 171/83 H Pulse Ox 02/11/20 09:20 02/11/20 09:00 02/11/20 08:40 02/11/20 08:25 02/11/20 08:20 02/11/20 08:00 99 02/11/20 04:46 100 02/10/20 23:39 100 PG Care Time/CCT Total # of Minutes Spent Total Time Spent with Patient: Total time spent is greater than 50% in coordination of care (as documented) at patient's floor/unit and/or counseling patient: Coding Level of Care Code 77939 Subseq Hosp Care Lvl 3 Diagnoses ESRD on hemodialysis N18.6; Z99.2 Hypertensive urgency I16.0 Acute exacerbation of CHF (congestive heart failure) I50.9 Arteriosclerotic cardiovascular disease I25.10 Altered mental state R41.0 Altered mental status type: delirium (1) Altered mental state Altered mental status type: delirium Qualified Code(s): R41.0 - Disorientation, unspecified
[2020-02-11] MEDS: CITALOPRAM 20 MG TAB PO SCH (11:42)
[2020-02-11] MEDS: ATORVASTATIN 40 MG TAB PO SCH (11:42)
[2020-02-11] MEDS: AMLODIPINE BESYLATE 5 MG TAB PO SCH (12:40)
[2020-02-11] MEDS: ISOSORBIDE MONO EXTENDED REL 30 MG TABCR PO SCH (12:40)
[2020-02-11] MEDS: CLOPIDOGREL BISULFATE 75 MG TAB PO SCH (12:41)
[2020-02-11] MEDS: HydrALAZINE 10 MG TAB PO SCH ×2 (12:41→20:38)
--- NOTE | 2020-02-11 16:21 | Hospitalist Progress Note ---
Date of Service February 11, 2020 Assessment & Plan (1) Altered mental state: Pt is a 74yo gentleman with a PMHx significant for prior CVA, CAD, Diabetes, ESRD on dialysis who presents with altered mental status. Pt back to baseline, awaiting placement at SNF. Altered mental status -Pt with Hx of recent fall secondary to proximal muscle weakness, notable facial bruising -CT head with no acute changes -etiology of AMS unclear currently- no indication of infection, ?due to polypharmacy -Also BP significantly elevated on admission-has since normalized post dialysis (see below) -f/u with about baseline- she states that he has had a personality change for the last 3 weeks. Describes him as "rowdy" and "not the man she " -MRI with chronic encephomalacia and moderate to severe atrophy of brain -close f/u with neurology on discharge ESRD on dialysis -Baseline Cr ~3, currently elevated -Pt received dialysis 02/10 Hypoxia: -Improving after dialysis -on RA when seen Volume overload: -as above, received dialysis 02/08 Diabetes mellitus with circulatory complication: -Hold home glipizide. -ISS while hospitalized CAD (coronary artery disease) -Multiple plaques in coronary arteries, peripheral arteries, renal arteries. -Continue atorvastatin and clopidogrel. Constipation -chronic -KUB with noted moderate stool burden -continue scheduled miralax with PRN senna Inferior lead T-wave inversions -continue metoprolol tartrate 50mg BID Depression -continue home Celexa Elevated troponins -downtrended -chronic, questionable lateral changes on EKG -will continue to monitor FEN/GI: Dialysis, renal diet. CODE STATUS: Full DVT prophylaxis: Heparin 5000 units SQ BID Dispo: Med/surg with tele Admission and Anticipated Discharge Date Admission Date: February 08, 2020 Supervising Physician Co-Signing Physician Notes I personally examined the patient and verified all grande points of history and exam, discussed case, and agree with decision making with Dr Michael. no new issues, seems to offer no new complaints although HPI and ROS obviously quite difficult. MRI noted. d/w neuro - for outpatient follow up vitals noted nad. heent bruising around both eyes. breathing unlabored no accessory muscles good effort skin no rashes no pallor or icterus. AMS - large area of frontal encephalomalacia seems to explain behaviors well - just not so much acuity of them. that said unfortunately little probably able to be done. neuro eval as outpt for completeness. supportive care. acute on chronic diastolic CHF (HFpEF) present on admission - probably relates more to ESRD/HD status - now overall improved. breathing appears stable elevated troponin/CAD - similar trop elevation in november (in context of syncope) deemed supply/demand mismatch - appears asymptomatic and troponin peaked at fairly low level. continue plavix and lipitor, ACEi ok per nephro (started) -- utilize nitrates + hydralazine although might consider titrate hydralazine down since ELIN can be used; consider beta amrit (but again HR might not be able to tolerate it) -- continue to follow BP and periodic BMP dispo - med surg pending discharge planning - was thinking home but now wants to have him go to SNF otherwise as above Subjective Pt seen this AM after dialysis. Was laying in bed resting comfortably. Review of Systems Review of Systems: Unobtainable due to cognitive status Physical Exam Physical Exam: General: Alert, orientedx1. No acute distress Skin: Raccoon black bruising noted around eyes, bruising on arms Psych: mood cannot be determined Neuro: unstable on feet HEENT: Raccoon black bruising noted around eyes Chest: Nontender to palpation. CV: RRR, Normal s1, s2. Blowing murmur appreciated Resp: Breath sounds clear bilaterally, no increased effort of breathing. No crackles/rhonchi/rales. Abdomen: Soft, nondistended. Extremities: No edema in lower extremities bilaterally. Results & Data Results & Data ([facility]) Vital Signs (Past 12 Hours) Vital Signs Temp Pulse Pulse Pulse Resp BP BP 02/11/20 16:01 37.4 C 90 20 92/61 L 02/11/20 14:04 36.8 C 93 H 85 20 116/75 02/11/20 12:29 36.8 C 85 20 116/75 02/11/20 12:01 37.5 C 79 132/83 02/11/20 12:00 75 112/64 02/11/20 11:44 75 90/59 L 02/11/20 11:20 62 105/62 02/11/20 11:00 64 92/58 L 02/11/20 10:40 50 L 94/55 L 02/11/20 10:20 51 L 110/64 02/11/20 10:01 50 L 97/73 L 02/11/20 09:40 78 133/79 02/11/20 09:20 94 H 103/86 02/11/20 09:00 91 H 104/69 02/11/20 08:40 43 L 107/58 L 02/11/20 08:25 87 136/80 02/11/20 08:20 37.5 C 87 02/11/20 08:00 37.0 C 93 H 18 151/92 H 02/11/20 04:46 36.3 C L 89 16 163/88 H Pulse Ox 02/11/20 16:01 97 02/11/20 14:04 95 02/11/20 12:29 95 02/11/20 12:01 02/11/20 12:00 02/11/20 11:44 02/11/20 11:20 02/11/20 11:00 02/11/20 10:40 02/11/20 10:20 02/11/20 10:01 02/11/20 09:40 02/11/20 09:20 02/11/20 09:00 02/11/20 08:40 02/11/20 08:25 02/11/20 08:20 02/11/20 08:00 99 02/11/20 04:46 100 Resident Activity Tracking Resident Involvement: Resident Care Provided Care Provided: Adult Hospital Medicine (1) Altered mental state Altered mental status type: delirium Qualified Code(s): R41.0 - Disorientation, unspecified
--- NOTE | 2020-02-11 19:15 | Billing Data ---
Date of Service February 11, 2020 Coding Level of Care Code 48542 Subseq Hosp Care Lvl 2
[2020-02-12] MEDS: NEPHROCAPS PO SCH (08:04)
[2020-02-12] MEDS: CLOPIDOGREL BISULFATE 75 MG TAB PO SCH (08:04)
[2020-02-12] MEDS: HydrALAZINE 10 MG TAB PO SCH (08:04)
[2020-02-12] MEDS: ATORVASTATIN 40 MG TAB PO SCH (08:05)
[2020-02-12] MEDS: CALCITRIOL 0.25 MCG CAPSULE PO SCH (08:05)
[2020-02-12] MEDS: ISOSORBIDE MONO EXTENDED REL 30 MG TABCR PO SCH (08:05)
[2020-02-12] MEDS: AMLODIPINE BESYLATE 5 MG TAB PO SCH (08:05)
[2020-02-12] MEDS: CITALOPRAM 20 MG TAB PO SCH (08:05)
[2020-02-12] MEDS: SEVELAMER HCL 800 MG TABLET PO SCH ×2 (08:05→12:14)
[2020-02-12] MEDS: HEPARIN SOD 5,000 UNIT/0.5 ML VIAL SQ SCH (08:06)
[2020-02-12] MEDS: POLYETHYLENE (MIRALAX) 17 GM PACK PO SCH (08:06)
[2020-02-12] MEDS: DOCUSATE SODIUM 100 MG CAP PO SCH (08:10)
[2020-02-12] MEDS: INSULIN ASPART 100 UNITS/ML 3 ML PEN SC SCH ×2 (08:37→12:14)
[2020-02-12 08:46] LABS: BUN Creatinine Ratio 10.2 (10-20); Calcium 8.9 mg/dl (8.5-10.1); Creatinine Clr Calc Pharmacy 11.3 ml/min; Est GFR (African American) 14.2; Est GFR (Non-African American) 12.3; Potassium 4.8 mmol/L (3.5-5.1)
[2020-02-12] MEDS ORDERED: lisinopriL 5 MG TAB PO SCH (09:00)
--- NOTE | 2020-02-12 09:32 | Nephrology Progress Note ---
Date of Service February 12, 2020 Assessment & Plan (1) ESRD on hemodialysis: -- Will provide heparin free HD tomorrow and set UF to EDW 54 kg. Orders placed in EMR and HD RN notified -- Outpatient HD Rx: [facility] TTS 3.5hr 3K 2.5Ca 1.0Mg F-180NR. -- Will notify [facility] Alexa to lower EDW from 57 to 54 kg -- L BC AVF created 02/02/[address] Boyd. Fistula is not yet mature for use but has + bruit. Continue to use IJ THC as HD access (2) Hypertensive urgency: -- SBP ~ 200 mmHg at time of admission -- 10/05 RA duplex performed at [facility] [place]: R 7cm, L 9cm. < 60% R RA stenosis, L proximal RA stent patent w/ < 60% stenosis in remainder of artery -- BP improving following UF and reducing EDW to 54 kg -- Lisinopril 5 mg each morning has been added to medical regimen to improve BP in the setting of known ALCON/ESRD (3) Acute exacerbation of CHF (congestive heart failure): -- No UO since admission. Patient is fully dialysis dependent and will not benefit from loop diuretic (4) Arteriosclerotic cardiovascular disease: -- Asymptomatic (5) Altered mental state: -- Blood cx are NGTD x 2 -- Head CT 02/08: chronic small vessel disease and chronic L frontal lobe infarct Admission and Anticipated Discharge Date Admission Date: February 08, 2020 Subjective Mr. Mata was seen & examined in his hospital room this morning. He was in NAD. No medical concerns - has expressive aphasia Review of Systems Review of Systems: Unobtainable due to expressive aphasia Physical Exam Constitutional: + frail appearing Eyes: PERRL, conjunctivae normal, anicteric sclerae Neck: trachea midline, no thyromegaly Respiratory: no respiratory distress Cardiovascular: Rate/Rhythm: regular rate and regular rhythm Extremities: + AV fistula (+ bruit); no edema Gastrointestinal (Abdomen): normal bowel sounds, soft, nontender, no hepatosplenomegaly Inspection/Auscultation: abdomen normal to inspection; abdomen not distended Neurologic: awake Results & Data ([facility]) Vital Signs (Past 12 Hours) Vital Signs Temp Pulse Pulse Resp BP Pulse Ox 02/12/20 07:12 37.0 C 66 18 126/80 95 02/11/20 23:09 37.3 C 86 18 139/76 95 Laboratory Results Laboratory Tests 02/12/20 07:52 Sodium 133 L Potassium 4.8 Chloride 101 Carbon Dioxide 23 BUN 45 H Creatinine 4.41 H Glucose 116 H PG Care Time/CCT Total # of Minutes Spent Total Time Spent with Patient: Total time spent is greater than 50% in coordination of care (as documented) at patient's floor/unit and/or counseling patient: Coding Level of Care Code 23809 Subseq Hosp Care Lvl 3 Diagnoses ESRD on hemodialysis N18.6; Z99.2 Hypertensive urgency I16.0 Acute exacerbation of CHF (congestive heart failure) I50.9 Arteriosclerotic cardiovascular disease I25.10 Altered mental state R41.0 Altered mental status type: delirium (1) Altered mental state Altered mental status type: delirium Qualified Code(s): R41.0 - Disorientation, unspecified
--- NOTE | 2020-02-12 16:28 | Billing Data ---
Date of Service February 12, 2020 Coding Level of Care Code D/C Day Management <30 mins
[2020-02-13] MEDS ORDERED: SODIUM CHLORIDE 0.9% 1000ML 1,000 ML IV PRN (07:00)
== END 2020-02-12 15:10 | disposition home health service (06) ==
LOC: ED 13:43 → INTOOBSV 17:00 → SUATTDRO 17:00 → 2N 17:00 → 2S 02-09 01:36 → 2N 02-11 14:48

== ENCOUNTER 2020-02-18 09:36 | Observation (INO) ==
[2020-02-18] MEDS ORDERED: SODIUM CHLORIDE 0.9% 500 ML IV SCH (10:15)
[2020-02-18] MEDS ORDERED: SODIUM CHLORIDE 0.9% 500 ML IV ONE (10:28)
--- NOTE | 2020-02-18 10:33 | Emergency Department Note ---
History of Present Illness General Chief complaint: Neuro Symptoms/Deficit Stated complaint: FELL SITTING UP Time Seen by Provider: 02/18/20 10:08 Source: patient, family (), EMS, RN notes reviewed and old records reviewed Mode of arrival: EMS Limitations: no limitations History of Present Illness Provider complaint: syncope Onset (ago): hour(s) 1 Relieved By: + immobilization Exacerbated By: + movement Associated symptoms: + denies other symptoms; no fever/chills, no headaches, no nausea/vomiting, no shortness of breath and no weakness Treatments prior to arrival: none This is a 74-year-old male who was recently admitted to the hospital for multiple falls. Patient is on dialysis Saturday and Saturday. The patient's reports he went to dialysis yesterday and really has not eaten since then. She was trying to sit the patient up in bed today when he became extremely weak and his eyes rolled back in his head. Upon arrival to the emergency department the patient is unable to stand due to weakness. Home Medications Home Medications Medication Instructions Recorded Confirmed Type isosorbide mononitrate 60 mg 60 mg PO DAILY #30 tab 11/11/19 02/18/20 Rx tablet,extended release 24 hr Renal Caps 1 cap PO QAM #30 cap 11/20/19 02/18/20 Rx docusate sodium [Stool Softener] 100 mg PO BID #0 cap 11/26/19 02/18/20 Rx polyethylene glycol 3350 [Miralax] 17 gm PO DAILY #0 ea 12/04/19 02/18/20 Rx hydrocortisone 2.5 % topical cream 1 appln OH DAILY PRN #28 gm 12/10/19 02/18/20 Rx with perineal applicator sennosides 8.6 mg tablet 8.6 mg PO QPM PRN #30 tab 12/31/19 02/18/20 Rx metoprolol tartrate [Lopressor] 50 mg PO BID 02/08/20 02/18/20 History nitroglycerin [Nitrostat] 0.4 mg SL UD PRN 02/08/20 02/18/20 History sevelamer HCl [Renagel] 800 mg PO AC 02/08/20 02/18/20 History amlodipine [Norvasc] 5 mg PO DAILY 02/18/20 02/18/20 History atorvastatin [Lipitor] 80 mg PO DAILY 02/18/20 02/18/20 History calcitriol [Rocaltrol] 0.25 mcg PO MOWEFR 02/18/20 02/18/20 History citalopram [Celexa] 10 mg PO DAILY 02/18/20 02/18/20 History clopidogrel [Plavix] 75 mg PO DAILY 02/18/20 02/18/20 History hydrocodone-acetaminophen [Henderson] 1 tab PO Q6H PRN 02/18/20 02/18/20 History levetiracetam [Keppra] 500 mg PO [id number] 02/18/20 02/18/20 History lisinopril [Zestril] 5 mg PO DAILY 02/18/20 02/18/20 History Allergies Allergy/AdvReac Type Severity Reaction Status Date / Time adhesive Allergy Intermediate BLISTERING Verified 02/18/20 11:37 OF SKIN latex Allergy Mild Rash Verified 02/18/20 11:37 Past Med/Surg History Medical History Arteriosclerotic cardiovascular disease s/p CABG 2007 Benign prostatic hyperplasia Carotid artery stenosis s/p remote R & L endarterectomies with L re-occlusion sometime before 2010. Being monitored by [facility] neuro, on Plavix. Chronic kidney disease Congestive heart failure (CHF) Depression Diabetes mellitus, type 2 A1C 5.4% 11/2019. Not on any medication. 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 Seizure disorder Stable on Keppra, no seizure for "a long time." Follows with [facility] neurology. SNHL (sensorineural hearing loss) Surgical History History of aorto-femoral bypass History of bypass graft (non vein) Aortic-femoral or bifemoral History of carotid endarterectomy L 1998, R 2009 History of cataract surgery RT/LEFT History of colonoscopy History of esophagogastroduodenoscopy (EGD) History of tooth extraction History of vascular access device IJ FOR DIAYLSIS S/P CABG (coronary artery bypass graft) (2007) 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 Beliefs That Will Affect Care: None marital status: Current Living Situation: Spouse Current Living Situation Comment: in an apartment per Feels Safe at Home: Yes Smoking Status: Former smoker Tobacco Type: cigarettes ; Cigarettes Per Day: 30 ; Second Hand Exposure: No ; Hx Alcohol Use: No Hx Substance Use: No caffeine: No Seatbelt Use: always Review of Systems A total of 10 systems reviewed and were otherwise negative Physical Exam Vital Signs Vital Signs - 24 hr 02/18/20 09:37 02/18/20 09:47 02/18/20 09:51 Temperature 37.3 C Temperature Source Oral Pulse Rate - Lying Pulse Rate - Sitting Pulse Rate 83 Pulse Rate [Right Finger] 64 Pulse Rate from SpO2 Sensor Pulse Rhythm Regular Pulse Strength Normal Respiratory Rate 18 20 Respiratory Effort / Characteristics Non-Labored Spontaneous Non-Labored Spontaneous Respiratory Depth Normal Normal Respiratory Pattern Regular Regular Blood Pressure - Lying Blood Pressure - Sitting Blood Pressure 85/52 L Blood Pressure [Right Arm] 111/60 Blood Pressure Mean 63 Blood Pressure Mean [Right Arm] 77 Blood Pressure Position Sitting Blood Pressure Position [Right Arm] Lying Pulse Oximetry 96 95 97 Oxygen Delivery Method Room Air Room Air Room Air Sepsis Recent Fever Within 48 Hours No Sepsis New/Unexplained Change in Mental Status No Sepsis Action Taken by Nursing No Action Required 02/18/20 10:00 02/18/20 10:02 02/18/20 10:10 Temperature Temperature Source Pulse Rate - Lying Pulse Rate - Sitting Pulse Rate 61 58 L 67 Pulse Rate [Right Finger] Pulse Rate from SpO2 Sensor 65 Pulse Rhythm Pulse Strength Respiratory Rate 20 21 17 Respiratory Effort / Characteristics Respiratory Depth Respiratory Pattern Blood Pressure - Lying Blood Pressure - Sitting Blood Pressure 111/60 Blood Pressure [Right Arm] Blood Pressure Mean 66 Blood Pressure Mean [Right Arm] Blood Pressure Position Blood Pressure Position [Right Arm] Pulse Oximetry 96 Oxygen Delivery Method Sepsis Recent Fever Within 48 Hours Sepsis New/Unexplained Change in Mental Status Sepsis Action Taken by Nursing 02/18/20 10:20 02/18/20 10:21 02/18/20 10:22 Temperature Temperature Source Pulse Rate - Lying 64 Pulse Rate - Sitting 67 Pulse Rate 62 67 65 Pulse Rate [Right Finger] Pulse Rate from SpO2 Sensor 67 Pulse Rhythm Pulse Strength Respiratory Rate 14 15 16 Respiratory Effort / Characteristics Respiratory Depth Respiratory Pattern Blood Pressure - Lying 104/52 L Blood Pressure - Sitting 95/60 L Blood Pressure 104/52 L 95/60 L Blood Pressure [Right Arm] Blood Pressure Mean 64 71 Blood Pressure Mean [Right Arm] Blood Pressure Position Blood Pressure Position [Right Arm] Pulse Oximetry 99 Oxygen Delivery Method Room Air Sepsis Recent Fever Within 48 Hours Sepsis New/Unexplained Change in Mental Status Sepsis Action Taken by Nursing 02/18/20 10:24 02/18/20 10:30 02/18/20 10:40 Temperature Temperature Source Pulse Rate - Lying Pulse Rate - Sitting Pulse Rate 61 65 58 L Pulse Rate [Right Finger] Pulse Rate from SpO2 Sensor Pulse Rhythm Pulse Strength Respiratory Rate 21 17 15 Respiratory Effort / Characteristics Respiratory Depth Respiratory Pattern Blood Pressure - Lying Blood Pressure - Sitting Blood Pressure 123/69 Blood Pressure [Right Arm] Blood Pressure Mean 83 Blood Pressure Mean [Right Arm] Blood Pressure Position Blood Pressure Position [Right Arm] Pulse Oximetry Oxygen Delivery Method Sepsis Recent Fever Within 48 Hours Sepsis New/Unexplained Change in Mental Status Sepsis Action Taken by Nursing 02/18/20 10:50 02/18/20 11:00 02/18/20 11:08 Temperature Temperature Source Pulse Rate - Lying Pulse Rate - Sitting Pulse Rate 58 L 55 L 55 L Pulse Rate [Right Finger] 51 L Pulse Rate from SpO2 Sensor 56 L Pulse Rhythm Pulse Strength Respiratory Rate 22 16 17 Respiratory Effort / Characteristics Non-Labored Spontaneous Respiratory Depth Normal Respiratory Pattern Regular Blood Pressure - Lying Blood Pressure - Sitting Blood Pressure 116/58 L Blood Pressure [Right Arm] 116/58 L Blood Pressure Mean 63 Blood Pressure Mean [Right Arm] 77 Blood Pressure Position Blood Pressure Position [Right Arm] Lying Pulse Oximetry 98 Oxygen Delivery Method Room Air Sepsis Recent Fever Within 48 Hours Sepsis New/Unexplained Change in Mental Status Sepsis Action Taken by Nursing 02/18/20 11:10 02/18/20 11:11 02/18/20 11:12 Temperature Temperature Source Pulse Rate - Lying Pulse Rate - Sitting Pulse Rate 53 L 58 L Pulse Rate [Right Finger] Pulse Rate from SpO2 Sensor 53 L 57 L Pulse Rhythm Pulse Strength Respiratory Rate 16 16 Respiratory Effort / Characteristics Respiratory Depth Respiratory Pattern Blood Pressure - Lying Blood Pressure - Sitting Blood Pressure 126/61 Blood Pressure [Right Arm] 126/61 Blood Pressure Mean 82 Blood Pressure Mean [Right Arm] 82 Blood Pressure Position Blood Pressure Position [Right Arm] Lying Pulse Oximetry 94 95 Oxygen Delivery Method Room Air Room Air Sepsis Recent Fever Within 48 Hours Sepsis New/Unexplained Change in Mental Status Sepsis Action Taken by Nursing 02/18/20 11:15 02/18/20 11:20 02/18/20 11:30 Temperature Temperature Source Pulse Rate - Lying Pulse Rate - Sitting Pulse Rate 67 60 50 L Pulse Rate [Right Finger] Pulse Rate from SpO2 Sensor 76 61 52 L Pulse Rhythm Pulse Strength Respiratory Rate 18 18 20 Respiratory Effort / Characteristics Respiratory Depth Respiratory Pattern Blood Pressure - Lying Blood Pressure - Sitting Blood Pressure 135/90 Blood Pressure [Right Arm] Blood Pressure Mean 118 Blood Pressure Mean [Right Arm] Blood Pressure Position Blood Pressure Position [Right Arm] Pulse Oximetry 94 Oxygen Delivery Method Room Air Sepsis Recent Fever Within 48 Hours Sepsis New/Unexplained Change in Mental Status Sepsis Action Taken by Nursing 02/18/20 11:31 02/18/20 11:35 02/18/20 11:40 Temperature Temperature Source Pulse Rate - Lying Pulse Rate - Sitting Pulse Rate 47 L 61 Pulse Rate [Right Finger] 58 L Pulse Rate from SpO2 Sensor 45 L 60 Pulse Rhythm Pulse Strength Respiratory Rate 19 20 18 Respiratory Effort / Characteristics Non-Labored Spontaneous Respiratory Depth Normal Respiratory Pattern Blood Pressure - Lying Blood Pressure - Sitting Blood Pressure 134/60 Blood Pressure [Right Arm] 134/60 Blood Pressure Mean 92 Blood Pressure Mean [Right Arm] 84 Blood Pressure Position Blood Pressure Position [Right Arm] Pulse Oximetry 95 96 95 Oxygen Delivery Method Room Air Room Air Room Air Sepsis Recent Fever Within 48 Hours Sepsis New/Unexplained Change in Mental Status Sepsis Action Taken by Nursing 02/18/20 11:46 02/18/20 11:50 02/18/20 12:00 Temperature Temperature Source Pulse Rate - Lying Pulse Rate - Sitting Pulse Rate 61 66 61 Pulse Rate [Right Finger] Pulse Rate from SpO2 Sensor 61 71 61 Pulse Rhythm Pulse Strength Respiratory Rate 17 19 18 Respiratory Effort / Characteristics Respiratory Depth Respiratory Pattern Blood Pressure - Lying Blood Pressure - Sitting Blood Pressure 145/63 H Blood Pressure [Right Arm] Blood Pressure Mean 89 Blood Pressure Mean [Right Arm] Blood Pressure Position Blood Pressure Position [Right Arm] Pulse Oximetry 96 95 Oxygen Delivery Method Room Air Room Air Sepsis Recent Fever Within 48 Hours Sepsis New/Unexplained Change in Mental Status Sepsis Action Taken by Nursing 02/18/20 12:01 02/18/20 12:10 02/18/20 12:16 Temperature Temperature Source Pulse Rate - Lying Pulse Rate - Sitting Pulse Rate 59 L 61 60 Pulse Rate [Right Finger] Pulse Rate from SpO2 Sensor 59 L 74 Pulse Rhythm Pulse Strength Respiratory Rate 17 17 18 Respiratory Effort / Characteristics Respiratory Depth Respiratory Pattern Blood Pressure - Lying Blood Pressure - Sitting Blood Pressure 127/65 137/71 Blood Pressure [Right Arm] Blood Pressure Mean 92 101 Blood Pressure Mean [Right Arm] Blood Pressure Position Blood Pressure Position [Right Arm] Pulse Oximetry 97 96 Oxygen Delivery Method Room Air Room Air Sepsis Recent Fever Within 48 Hours Sepsis New/Unexplained Change in Mental Status Sepsis Action Taken by Nursing 02/18/20 12:20 02/18/20 12:30 02/18/20 12:40 Temperature Temperature Source Pulse Rate - Lying Pulse Rate - Sitting Pulse Rate 64 60 60 Pulse Rate [Right Finger] Pulse Rate from SpO2 Sensor Pulse Rhythm Pulse Strength Respiratory Rate 22 22 18 Respiratory Effort / Characteristics Respiratory Depth Respiratory Pattern Blood Pressure - Lying Blood Pressure - Sitting Blood Pressure 121/56 L Blood Pressure [Right Arm] Blood Pressure Mean 68 Blood Pressure Mean [Right Arm] Blood Pressure Position Blood Pressure Position [Right Arm] Pulse Oximetry Oxygen Delivery Method Sepsis Recent Fever Within 48 Hours Sepsis New/Unexplained Change in Mental Status Sepsis Action Taken by Nursing 02/18/20 12:45 02/18/20 12:50 02/18/20 13:00 Temperature Temperature Source Pulse Rate - Lying Pulse Rate - Sitting Pulse Rate 53 L 57 L 61 Pulse Rate [Right Finger] Pulse Rate from SpO2 Sensor Pulse Rhythm Pulse Strength Respiratory Rate 17 26 H 16 Respiratory Effort / Characteristics Respiratory Depth Respiratory Pattern Blood Pressure - Lying Blood Pressure - Sitting Blood Pressure 141/59 H 129/64 Blood Pressure [Right Arm] Blood Pressure Mean 82 81 Blood Pressure Mean [Right Arm] Blood Pressure Position Blood Pressure Position [Right Arm] Pulse Oximetry Oxygen Delivery Method Sepsis Recent Fever Within 48 Hours Sepsis New/Unexplained Change in Mental Status Sepsis Action Taken by Nursing VITAL SIGNS - Vital signs and nursing notes were reviewed. GENERAL - 74-year-old male cachectic in appearance with bruises healing around eyes. Communicates well with provider and answers questions appropriately. SKIN - Without rashes. HEAD - NC/AT. EYES - PERRL with EOMI bilaterally. Sclera anicteric. Palpebral conjunctiva pink and moist with no injection noted. EARS - No deformities of external structures noted on gross examination bilaterally. No pain elicited with palpation of the tragus bilaterally. External auditory canals without discharge or otorrhea. Tympanic membranes pearly jerry without retraction or bulging. No fluid or purulent material visualized behind the TM. Handle of malleus, umbo, cone of light, pars tensa/flaccid all easily visualized. NOSE - Midline and without cyanosis. No epistaxis or purulent drainage noted. Septum midline without deviation or septal hematoma noted. MOUTH/OROPHARYNX - Without perioral cyanosis. Buccal mucosa pink and moist and without leukoplakia. Tongue midline with equal elevation of palate bilaterally. No tonsillar hypertrophy, erythema, or exudates noted. dentition noted. NECK - Neck with FROM. Supple to palpation. lymphadenopathy noted. No nuchal rigidity. LUNGS - Chest wall symmetric without accessory muscle use, intercostals retractions, or central cyanosis. Normal vesicular breath sounds CTA B/L. No wheezes, rales, or rhonchi appreciated. CARDIAC - RRR with S1/S2. No murmur, rubs, or gallops appreciated. ABDOMEN - Abdominal contour without pulsations or visible masses. BS normoactive all four quadrants. No tenderness, palpable masses, hepatosplenomegaly, or ascites noted. EXTREMITIES - No clubbing or peripheral cyanosis. No pretibial edema present. +3/5 radial, posterior tibial, and dorsalis pedis pulses palpated throughout. +5/5 strength noted in UE/LE bilaterally. NEUROLOGIC - Cranial nerves II through XII grossly intact. Sensory intact to light touch throughout. Patellar reflexes +2/4. PSYCH - A&Ox3 and cooperates fully with examiner. Pt is very pleasant and interacts well with examiner. Course Administered Medications Discontinued Medications Sodium Chloride (Nss) 500 mls @ 999 mls/hr IV .Q31M SEE Stop: 02/18/20 10:45 Last Infusion: 02/18/20 11:33 Dose: 0 mls/hr Documented by: [id number] Admin: 02/18/20 10:45 Dose: 999 mls/hr Documented by: [id number] Sodium Chloride (Nss) 500 mls @ 999 mls/hr IV .Q31M ONE Stop: 02/18/20 10:58 Last Infusion: 02/18/20 11:33 Dose: 0 mls/hr Documented by: [id number] Admin: 02/18/20 10:45 Dose: 999 mls/hr Documented by: [id number] Sodium Chloride (Nss 1000ml) 500 mls @ 999 mls/hr IV .Q31M ONE Stop: 02/18/20 11:23 Last Infusion: 02/18/20 12:16 Dose: 0 mls/hr Documented by: [id number] Admin: 02/18/20 11:34 Dose: 999 mls/hr Documented by: [id number] Medical Decision Making Differential Diagnosis Infection, dehydration, metabolic abnormality, hypo/hyperglycemia, electrolyte disturbance, anemia, hypoxia, cardiac sources, intracerebral event, toxicologic, neurologic, as well as other pathologies. Medical Records Attestation: I reviewed the patient's medical records. Home Medications Current Medication List: was personally reviewed by me Laboratory Data Attestation: I reviewed the patient's lab results. Result diagrams: 02/18/20 10:31 02/18/20 10:31 Lab Results 02/18/20 02/18/20 02/18/20 Range/Units 10:31 10:31 10:44 WBC 13.20 H (4.8-10.8) K/uL RBC 4.11 L (4.7-6.1) M/uL Hgb 12.8 L (14.0-18.0) g/dL Hct 40.8 L (42-52) % MCV 99.3 (80-100) fL MCH 31.1 (25-34) pg MCHC 31.4 L (32-36) g/dL RDW Std Deviation 60.1 H (36.4-46.3) fL RDW Coeff of Shayy 16.6 H (11.5-14.5) % Plt Count 242 (130-400) K/uL MPV 10.1 (7.4-10.4) fL Immature Gran % (Auto) 0.6 % Neut % (Auto) 66.4 % Lymph % (Auto) 20.2 % Otoe % (Auto) 9.6 % Eos % (Auto) 3.0 % Baso % (Auto) 0.2 % Immature Gran # (Auto) 0.08 H (0.00-0.02) K/uL Neut # (Auto) 8.77 H (1.4-6.5) K/uL Lymph # (Auto) 2.66 (1.2-3.4) K/uL Otoe # (Auto) 1.27 H (0.11-0.59) K/uL Eos # (Auto) 0.39 (0-0.5) K/uL Baso # (Auto) 0.03 (0-0.2) K/uL Sodium 134 L (136-145) mmol/L Potassium 5.9 H (3.5-5.1) mmol/L Chloride 96 L (98-107) mmol/L Carbon Dioxide 31 (21-32) mmol/L Anion Gap 7.0 (3-11) BUN 45 H (7-18) mg/dl Creatinine 4.64 H* (0.6-1.4) mg/dl Est Cr Clr Drug Dosing 10.8 ml/min Est GFR ( Amer) 13.4 Est GFR (Non-Af Amer) 11.5 BUN/Creatinine Ratio 9.6 L (10-20) Glucose 173 H (70-99) mg/dl POC Glucose 183 H (70-99) mg/dl Calcium 9.7 (8.5-10.1) mg/dl Total Bilirubin 0.6 (0.2-1) mg/dl AST 19 (15-37) U/L ALT 23 (12-78) U/L Alkaline Phosphatase 61 (45-117) U/L Total Creatine Kinase 22 L (39-308) U/L CK-MB (CK-2) 1.4 (0.5-3.6) ng/ml CK/CKMB % Calc 6.4 H (0-3.0) Total Protein 7.9 (6.4-8.2) gm/dl Albumin 3.3 L (3.4-5.0) gm/dl Globulin 4.6 H (2.5-4.0) gm/dl Albumin/Globulin Ratio 0.7 L (0.9-2) TSH 0.998 (0.300-4.500) uIu/ml Imaging Data Radiologist's Impression: [facility], [place] [phone] XRay Report Patient: VIVIANA LANIER Admit Date: 02/18/20 MR#: [id number] Address1: [address] [place] Acct ID:[id number] Address2: Date: 1945 [facility] Zip: [place] [address] Age: 74 Location: ED Sex: M Room/Bed: Att Phy: Diagnosis: FELL SITTING UP Sharon Phy: Erick Zapata III, MD Service Date: 01/03 Fam Phy: Interpreting Phy: Beto Tovar MD Admit Phy: Ordering Phy: Joss Villanueva MD cc: ~ XR chest 1V portable CLINICAL HISTORY: weakness dyspnea COMPARISON STUDY: No previous studies for comparison. FINDINGS: The bones soft tissues and hemidiaphragms are normal. The cardiomediastinal silhouette is normal. The lungs are clear. The pulmonary vasculature is normal. IMPRESSION: Negative chest. Lungs are clear. ACT 112: Negative or not required by law. The above report was generated using voice recognition software. It may contain grammatical, syntax or spelling errors. Electronically signed by: Beto Tovar M.D. 02/18/2020 10:34 AM Dictated: 02/18/20 1033 Transcribed: 02/18/20 1033 ECG Data Attestation: I personally reviewed and interpreted this ECG as follows: Indication: + syncope Rate (beats per minute): 60 Rhythm: + sinus rhythm ECG Intervals/blocks: + Mobitz Type I ECG [place]: + Normal ECG ST segments: + T-wave inversions (Lateral) Comparison ECG Date: from (02/10/2020) Change: the following changes noted (Mobitz tyle 1 replaced first degree block, new t wave inversions in lateral leads) Blood Pressure Blood Pressure Findings: Low blood pressure MDM Narrative Patient was seen and evaluated as above in room C12. Review was performed of nursing notes and vital signs. I did review pertinent previous visits and patient history. After obtaining a thorough history and physical examination the above work up was performed. This is a 74-year-old male who presents emergency department complaining of generalized weakness. The patient has dialysis yesterday and I suspect based on his physical examination of the patient is actually dehydrated. He was given 3 normal saline boluses here in the emergency department. Orthostatic vital signs reveal that the patient is unable to stand without passing out. Due to the number of falls this patient has had I did discuss the case with the hospitalist service who did agree to admit the patient. Patient and are in agreement with the treatment plan. An order was placed for continuous cardiac monitoring. The monitor shows a rate of 61 with normal Sinus rhythm. The patient was evaluated during the global COVID-19 pandemic, and that diagnosis was suspected/considered upon their initial presentation. Their evaluation, treatment and testing was consistent with current guidelines for patients who present with complaints or symptoms that may be related to COVID- 19. Impression & Plan Syncope, ESRD on hemodialysis, Acute hypotension Discharge Plan Visit Data Chief Complaint: Neuro Symptoms/Deficit Stated Complaint: FELL SITTING UP ED Provider: Joss Villanueva Discharge Problem: Syncope, ESRD on hemodialysis, Acute hypotension Forms Stand Alone Forms: [facility] Prescriptions Prescriptions: No Action isosorbide mononitrate 60 mg tablet extended release 24 hr 60 mg PO DAILY Qty: 30 RF: 5 sennosides [Senokot] 8.6 mg tablet 8.6 mg PO QPM PRN (Reason: Constipation) Qty: 30 RF: 0 hydrocortisone [Proctosol HC] 2.5 % cream with perineal applicator 1 appln OH DAILY PRN (Reason: itching) Qty: 28 RF: 0 Renal Caps 1 mg Capsule 1 cap PO QAM Qty: 30 RF: 0 docusate sodium [Stool Softener] 100 mg Capsule 100 mg PO BID Qty: 0 RF: 0 polyethylene glycol 3350 [Miralax] 17 gram powder in packet 17 gm PO DAILY Qty: 0 RF: 0 metoprolol tartrate [Lopressor] 50 mg tablet 50 mg PO BID RF: 0 sevelamer HCl [Renagel] 800 mg tablet 800 mg PO AC RF: 0 nitroglycerin [Nitrostat] 0.4 mg tablet, sublingual 0.4 mg SL UD PRN (Reason: Chest Pain) RF: 0 atorvastatin [Lipitor] 80 mg tablet 80 mg PO DAILY RF: 0 hydrocodone-acetaminophen [Henderson] 5-325 mg tablet 1 tab PO Q6H PRN (Reason: Pain) RF: 0 amlodipine [Norvasc] 5 mg tablet 5 mg PO DAILY RF: 0 calcitriol [Rocaltrol] 0.25 mcg capsule 0.25 mcg PO MOWEFR RF: 0 levetiracetam [Keppra] 500 mg tablet 500 mg PO [id number] RF: 0 citalopram [Celexa] 10 mg tablet 10 mg PO DAILY RF: 0 clopidogrel [Plavix] 75 mg tablet 75 mg PO DAILY RF: 0 lisinopril [Zestril] 5 mg tablet 5 mg PO DAILY RF: 0 Discharge Problem: Syncope Qualifiers: Syncope type: unspecified Qualified Code(s): R55 - Syncope and collapse
--- NOTE | 2020-02-18 10:36 | XRay Report ---
XR chest 1V portable CLINICAL HISTORY: weakness dyspnea COMPARISON STUDY: No previous studies for comparison. FINDINGS: The bones soft tissues and hemidiaphragms are normal. The cardiomediastinal silhouette is n ormal. The lungs are clear. The pulmonary vasculature is normal. IMPRESSION: Negative chest. Lungs are clear. ACT 112: Negative or not required by law. The above report was generated using voice recognition software. It may contain grammatical, syntax or spelling errors. Electronically signed by: Beto Tovar M.D. 02/18/2020 10:34 AM
[2020-02-18 10:50] LABS: Basophils # (auto) 0.03 K/uL (0-0.2); Basophils % (auto) 0.2 %; Eosinophils # (auto) 0.39 K/uL (0-0.5); Hematocrit (blood only) 40.8 % (42-52); Hemoglobin 12.8 g/dL (14.0-18.0); Immature Granulocytes # (auto) 0.08 K/uL (0.00-0.02); Immature Granulocytes % (auto) 0.6 %; Lymphocytes # (auto) 2.66 K/uL (1.2-3.4); Lymphocytes % (auto) 20.2 %; Mean Corpuscular Hemoglobin 31.1 pg (25-34); Mean Corpuscular Hgb Conc 31.4 g/dL (32-36); Mean Corpuscular Volume 99.3 fL (80-100); Mean Platelet Volume 10.1 fL (7.4-10.4); Monocytes # (auto) 1.27 K/uL (0.11-0.59); Monocytes % (auto) 9.6 %; Neutrophils # (auto) 8.77 K/uL (1.4-6.5); Neutrophils % (auto) 66.4 %; Platelet Count 242 K/uL (130-400); RDW Coefficient of Variation 16.6 % (11.5-14.5); RDW Standard Deviation 60.1 fL (36.4-46.3); Red Blood Count 4.11 M/uL (4.7-6.1)
[2020-02-18] MEDS ORDERED: SODIUM CHLORIDE 0.9% 1000ML 500 ML IV ONE (10:53)
[2020-02-18 11:24] LABS: Albumin Globulin Ratio 0.7 (0.9-2); Albumin Level 3.3 gm/dl (3.4-5.0); BUN Creatinine Ratio 9.6 (10-20); Bilirubin,Total 0.6 mg/dl (0.2-1); Calcium 9.7 mg/dl (8.5-10.1); Creatine Kinase MB 1.4 ng/ml (0.5-3.6); Creatinine Clr Calc Pharmacy 10.8 ml/min; Est GFR (African American) 13.4; Est GFR (Non-African American) 11.5; Globulin 4.6 gm/dl (2.5-4.0); Potassium 5.9 mmol/L (3.5-5.1); Thyroid Stimulating Hormone 0.998 uIu/ml (0.300-4.500); Total Protein 7.9 gm/dl (6.4-8.2)
--- NOTE | 2020-02-18 12:10 | History & Physical Report ---
Date of Service February 18, 2020 Assessment & Plan (1) Vasovagal syncope: - Admit to PCU - Given total of 1500mL NSS in the ER, will hold off on further fluids at this point as this is likely a result of too much fluid removal from dialysis done yesterday. Pt unaware of how much was dialyzed. - Trend orthostatics: In the ER BP dropped from 104/50 - 95/60 - Last Echo completed 11/17/19 - showing EF of 50-55%, borderline concentric LVH, hypokinesis of the proximal infero posterior wall. No need for repeat at this time. - After discharge from last admission from February 07- lisinopril was added to regimen for BP control, holding - may need to stop and NOT resume on discharge. -Holding other antihypertensives such as amlodipine, isosorbide,-we will reduce dose of metoprolol given second-degree heart block and add amlodipine and isosorbide back as needed - Check Blood cultures - permacath site and peripheral, WBC elevated at 13.2 but has been elevated even during the last admission, AVF site appears to be healing well, no surrounding erythema, edema, no drainage from the surgical site, follows with Dr. Boyd (Pt had an outpt appt scheduled for today, will need to be rescheduled), afebrile. (2) Second degree heart block: -With Mobitz type I secondary heart block on admission ECG with heart rates in the 50s to 60s -Unclear if is contributing to his episodes of syncope -We will reduce metoprolol dose to 25 mg p.o. twice daily down from 50 -Follow on telemetry (3) ESRD on hemodialysis: - Nephro consulted- last HD session was yesterday 02/16, will plan for HD today based on elevated K+, not hypervolemia. Disscused with Dr. Muniz, appreciate recs. - Allow low potassium diet, K elevated at 5.9 on admission - Recheck BMP at 1600 - Continue on sevelamer 800 mg PO AC (4) Hyperkalemia: - BMP with K+ = 5.9 on admission, recheck ordered for 1600 - Nephro consulted (5) Congestive heart failure (CHF): -Chronic, diastolic -Fully dialysis dependent and would not benefit from a loop diuretic -Nephrology consulted as above (6) CAD (coronary artery disease): -History of such, continue metoprolol, Plavix, and atorvastatin, history of IN in early 1999s -With CABG (7) Peripheral artery disease: -History of such secondary to above With history of iliofemoral bypass -Continue Plavix, statin (8) Hypertension: - Holding amlodipine, lisinopril, Imdur for orthostatic hypotension causing syncope. -Continue metoprolol as noted above but lower the dose to 25 mg BID (9) Carotid artery stenosis: - Chronic left ICA occlusion known since 2010 - Continue medical therapy with Plavix 75 mg daily and atorvastatin 80 mg daily (10) History of CVA with residual deficit: -Right-sided residual deficits s/p left MCA ischemic stroke -Continue Plavix, controlling HTN/DM -A1c is 5.4 as above, goal of keeping LDL <70, BP <135/85- Hx of such -MRI Brain with large left-sided encephalomalacia with moderate to severe atrophy-could be the cause of some of his personality changes, but he is also been recently started on Keppra which can also contribute to changes in mood (11) Seizure disorder: -History of such -Was switched from Dilantin to Keppra 01/05/2020, continue on Keppra 500 mg p.o. MWFSun after dialysis sessions. -check Keppra level to ensure it is therapeutic today -No history of seizures for many years -Follow with neurology as an outpatient (12) Expressive aphasia: -Noted, secondary to CVA, patient's ability to express thoughts has worsened over the last 2 weeks per patient . (13) Diabetes mellitus with circulatory complication: - A1C= 5.4 on 11/18/2019 - Will place on ISS with accuchecks with elevated glucose on arrival for monitoring, may DC after 24 hours if no need for insulin. (14) Diabetic peripheral neuropathy: -Stable (15) Benign prostatic hyperplasia: -Noted, would not recommend tamsulosin given orthostasis -Also, unclear how much urine he makes given that he is on dialysis now (16) Esophageal reflux: -History of such, not on medication (17) DVT prophylaxis: -Lovenox SQ CODE: Full code, discussed with the patient and his Dispo: From home, likely to remain in the hospital x 2 days History of Present Illness Involving right MCA Primary Care Provider: Erick Zapata MD Is a 74-year-old male with PMHx of ESRD on hemodialysis MWF, hypertensive urgency, CHF, CAD, CVA involving left MCA on Plavix, left sided encephalomalacia with moderate to severe atrophy on most recent MRI, causing residual right-sided weakness and aphasia, chronic left ICA occlusion since 2010, epilepsy on Keppra, DM type II, depression and constipation. Patient was recently admitted from February 07- for hypertensive urgency and acute exacerbation of CHF, hypoxia and altered mental state. The patient is a poor historian due to aphasia as well as mood changes, likely secondary to left-sided encephalomalacia as described above, therefore his provides majority of the history. She reports this morning when they woke up patient seemed to be in his normal state of health however once sitting up on the bed his eyes rolled back and was not responding to her as well as normal. She found this concerning. He proceeded to walk to the bathroom, had a large bowel movement, then proceeded to eat breakfast without difficulty. Patient's thought that his small episode this morning of unresponsiveness was concerning, therefore brought him to the ER. Once here in the ER patient attempted to stand at bedside however BP acutely dropped and patient had episode of passing out. He has not fallen or sustained any acute injury. She notes that he has been using a walker for the last 2 to 3 days due to increased weakness. His last dialysis session was yesterday, she is unaware of the amount of fluid that was dialyzed off of him. He has been eating and drinking normally, with fluid restriction as he was hypervolemic during his last hospital stay. Prior to 2 weeks ago when he fell initially he was walking without ambulatory assistive device, getting himself dressed, participating in normal ADLs. Allergies Allergy/AdvReac Type Severity Reaction Status Date / Time adhesive Allergy Intermediate BLISTERING Verified 02/18/20 11:37 OF SKIN latex Allergy Mild Rash Verified 02/18/20 11:37 Home Medications Home Medications Medication Instructions Recorded Confirmed Type isosorbide mononitrate 60 mg 60 mg PO DAILY #30 tab 11/11/19 02/18/20 Rx tablet,extended release 24 hr Renal Caps 1 cap PO QAM #30 cap 11/20/19 02/18/20 Rx docusate sodium [Stool Softener] 100 mg PO BID #0 cap 11/26/19 02/18/20 Rx polyethylene glycol 3350 [Miralax] 17 gm PO DAILY #0 ea 12/04/19 02/18/20 Rx hydrocortisone 2.5 % topical cream 1 appln SD DAILY PRN #28 gm 12/10/19 02/18/20 Rx with perineal applicator sennosides 8.6 mg tablet 8.6 mg PO QPM PRN #30 tab 12/31/19 02/18/20 Rx metoprolol tartrate [Lopressor] 50 mg PO BID 02/08/20 02/18/20 History nitroglycerin [Nitrostat] 0.4 mg SL UD PRN 02/08/20 02/18/20 History sevelamer HCl [Renagel] 800 mg PO AC 02/08/20 02/18/20 History amlodipine [Norvasc] 5 mg PO DAILY 02/18/20 02/18/20 History atorvastatin [Lipitor] 80 mg PO DAILY 02/18/20 02/18/20 History calcitriol [Rocaltrol] 0.25 mcg PO MOWEFR 02/18/20 02/18/20 History citalopram [Celexa] 10 mg PO DAILY 02/18/20 02/18/20 History clopidogrel [Plavix] 75 mg PO DAILY 02/18/20 02/18/20 History hydrocodone-acetaminophen [[place]] 1 tab PO Q6H PRN 02/18/20 02/18/20 History levetiracetam [Keppra] 500 mg PO [id number]@1600 02/18/20 02/18/20 History lisinopril [Zestril] 5 mg PO DAILY 02/18/20 02/18/20 History Past Med/Surg History Medical History Arteriosclerotic cardiovascular disease s/p CABG 2007 Benign prostatic hyperplasia Carotid artery stenosis s/p remote R & L endarterectomies with L re-occlusion sometime before 2010. Being monitored by [facility] neuro, on Plavix. Chronic kidney disease Congestive heart failure (CHF) Depression Diabetes mellitus, type 2 A1C 5.4% 11/2019. Not on any medication. Diabetic peripheral neuropathy Esophageal reflux Flash pulmonary edema 11/2019 Hemodialysis patient SAT/SAT/SATURDAY [facility] [place] 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 (1 YEAR AFTER IN) ? Hyperlipidemia Hypertension Myocardial Infarction 1989? Seizure disorder Stable on Keppra, no seizure for "a long time." Follows with [facility] neurology. SNHL (sensorineural hearing loss) Surgical History History of aorto-femoral bypass History of bypass graft (non vein) Aortic-femoral or bifemoral History of carotid endarterectomy L 1998, R 2009 History of cataract surgery RT/LEFT History of colonoscopy History of esophagogastroduodenoscopy (EGD) History of tooth extraction History of vascular access device IJ FOR DIAYLSIS S/P CABG (coronary artery bypass graft) (2007) [facility] Family History Brother Hypertension Hypercholesteremia Sister Diabetes Unknown Hypertension Cardiac disorder Social History Preferred Language: Belarusian Communication Ability: Effective Visual Impairment: No Limitations Acute Dialysis Registered Nurse Required: No Beliefs That Will Affect Care: None marital status: Current Living Situation: Spouse Current Living Situation Comment: in an apartment per Feels Safe at Home: Yes Smoking Status: Former smoker Tobacco Type: cigarettes ; Cigarettes Per Day: 30 ; Second Hand Exposure: No ; Hx Alcohol Use: No Hx Substance Use: No caffeine: No Seatbelt Use: always Review of Systems Review of Systems: Constitutional: No fever, sweats or chills, + generalized weakness worse in the last 2 to 3 days Eyes: No diplopia, no worsening or blurred vision ENT: normal hearing, no trouble swallowing Respiratory: No cough, sputum, dyspnea at rest or on exertion Cardiovascular: No chest pain, tightness or palpitations Abdomen: No pain, nausea, vomiting, diarrhea or constipation, last BM this morning. Musculoskeletal: No joint pain, calf pain, swelling Neurologic: + Generalized weakness, + history of frequent falls, no numbness/tingling, + has been using wheelchair as described in HPI Psychiatric: + Depression on SSRI Skin: No rash or itch Physical Exam Physical Exam: General: awake, alert, no apparent distress Head: Normocephalic, + ecchymosis surrounding bilateral orbit ENT: PERRL, EOMI, no pharyngeal exudate, mucous membranes moist Chest: Clear to auscultation, on room air, no adventitious breath sounds, + permacath in place R chest wall Cardiac: Regular rate and rhythm, no murmur, no JVD, normal peripheral pulses, good capillary refill Abdominal: NABS x 4 quadrants, soft, nondistended, nontender to palpation, no rebound, guarding or tenderness Extremities: Normal inspection, +Left antecubital fistula with light thrill, no peripheral edema or erythema, calfs nontender to palpation Psych: Normal mood and affect, tearful at times when discussing code status. Neuro: AAO to self, says he's in [facility], and year is 2019. Cannot recall name of the president. +R sided weakness compared to left, +aphasia, speech is clear, no peripheral sensory deficits Results & Data Results & Data ([place]) Vital Signs (Past 12 Hours) Vital Signs Temp Pulse Pulse Resp BP BP Pulse Ox 02/18/20 11:35 58 L 20 134/60 96 02/18/20 11:12 126/61 02/18/20 11:08 51 L 20 116/58 L 98 02/18/20 10:20 99 02/18/20 09:51 97 02/18/20 09:47 37.3 C 83 20 85/52 L 95 02/18/20 09:37 64 18 111/60 96 Laboratory Results 02/18/20 02/18/20 02/18/20 Range/Units 10:44 10:31 10:31 WBC 13.20 H (4.8-10.8) K/uL RBC 4.11 L (4.7-6.1) M/uL Hgb 12.8 L (14.0-18.0) g/dL Hct 40.8 L (42-52) % MCV 99.3 (80-100) fL MCH 31.1 (25-34) pg MCHC 31.4 L (32-36) g/dL RDW Std Deviation 60.1 H (36.4-46.3) fL RDW Coeff of Shayy 16.6 H (11.5-14.5) % Plt Count 242 (130-400) K/uL MPV 10.1 (7.4-10.4) fL Immature Gran % (Auto) 0.6 % Neut % (Auto) 66.4 % Lymph % (Auto) 20.2 % [place] % (Auto) 9.6 % Eos % (Auto) 3.0 % Baso % (Auto) 0.2 % Immature Gran # (Auto) 0.08 H (0.00-0.02) K/uL Neut # (Auto) 8.77 H (1.4-6.5) K/uL Lymph # (Auto) 2.66 (1.2-3.4) K/uL [place] # (Auto) 1.27 H (0.11-0.59) K/uL Eos # (Auto) 0.39 (0-0.5) K/uL Baso # (Auto) 0.03 (0-0.2) K/uL Sodium 134 L (136-145) mmol/L Potassium 5.9 H (3.5-5.1) mmol/L Chloride 96 L (98-107) mmol/L Carbon Dioxide 31 (21-32) mmol/L Anion Gap 7.0 (3-11) BUN 45 H (7-18) mg/dl Creatinine 4.64 H* (0.6-1.4) mg/dl Est Cr Clr Drug Dosing 10.8 ml/min Est GFR ( Amer) 13.4 Est GFR (Non-Af Amer) 11.5 BUN/Creatinine Ratio 9.6 L (10-20) Glucose 173 H (70-99) mg/dl POC Glucose 183 H (70-99) mg/dl Calcium 9.7 (8.5-10.1) mg/dl Total Bilirubin 0.6 (0.2-1) mg/dl AST 19 (15-37) U/L ALT 23 (12-78) U/L Alkaline Phosphatase 61 (45-117) U/L Total Creatine Kinase 22 L (39-308) U/L CK-MB (CK-2) 1.4 (0.5-3.6) ng/ml CK/CKMB % Calc 6.4 H (0-3.0) Total Protein 7.9 (6.4-8.2) gm/dl Albumin 3.3 L (3.4-5.0) gm/dl Globulin 4.6 H (2.5-4.0) gm/dl Albumin/Globulin Ratio 0.7 L (0.9-2) TSH 0.998 (0.300-4.500) uIu/ml Diagnostic Findings XR chest 1V portable CLINICAL HISTORY: weakness dyspnea COMPARISON STUDY: No previous studies for comparison. FINDINGS: The bones soft tissues and hemidiaphragms are normal. The cardiomediastinal silhouette is normal. The lungs are clear. The pulmonary vasculature is normal. IMPRESSION: Negative chest. Lungs are clear. ECG Additional Comments: ECG with sinus rhythm with second-degree AV block Mobitz 1, inferolateral ST and T wave abnormality unchanged from previous Code Status & VTE Plan Code Status Full code - discussed with the patient and his at bedside Supervising Physician Co-Signing Physician Notes PA Supervision Note: I personally saw and examined the patient. I verified all grande points and agree with NAN Keen with the following exceptions and/or additions: Patient presents with syncopal episodes including a witnessed one in the ER with a clear blood pressure drop consistent with orthostasis. He is also bradycardic with a secondary heart block. He denies any chest pain or shortness of breath. He is a poor historian given a aphasia and cognitive impairment since his stroke. His does provide the history. No fevers at home. No abdominal pains. No diarrhea or constipation. -He was recently here for volume overload and had extra volume taken off with dialysis His weight is about stable from where it was when he left here previously. History and ROS reviewed Vitals reviewed Gen: Alert and awake, pleasant, oriented to person NAD HEENT: Anicteric sclerae, EOMI, with periorbital ecchymosis CV: Irregularly irregular, with 2/6 systolic murmur at the right upper sternal border and left lower sternal border,nl S1S2, IJ tunneled permacatheter on the right Pulm: CTAB no wcr Abd: +BS soft NT ND no masses or hernias Ext: No edema Skin: No rashes, warm/dry Neuro: Full strength throughout 74-year-old male with ESRD on HD and other issues as above, here with recurrent syncope Most likely orthostatic, but could be related to bradycardia as well as noted above -Was given 1.5 L normal saline-will not give any further fluid at this time -With hyperkalemia-going for dialysis today after discussion with nephrology -Lower the dose of his metoprolol and holding other BP meds for now If blood pressure rises, would favor adding on amlodipine isosorbide first PG Care Time/CCT Total # of Minutes Spent Total Time Spent with Patient: Total time spent is greater than 50% in coordination of care (as documented) at patient's floor/unit and/or counseling patient: Coding Level of Care Code 65591 Initial Inpt Care Lvl 3 Diagnoses Vasovagal syncope R55 Second degree heart block I44.1 ESRD on hemodialysis N18.6; Z99.2 Hyperkalemia E87.5 Congestive heart failure (CHF) I50.9 CAD (coronary artery disease) I25.10 Associated angina: without angina Coronary Disease-Associated Artery/Lesion type: [place] artery [place] vs. transplanted heart: [place] heart Peripheral artery disease I73.9 Hypertension I10 Carotid artery stenosis I65.29 History of CVA with residual deficit I69.30 Seizure disorder G40.909 Expressive aphasia R47.01 Diabetes mellitus with circulatory complication E11.51 Diabetes mellitus complication detail: with peripheral angiopathy without gangrene Diabetes mellitus meterman insulin use: without meterman use Diabetes mellitus type: type 2 Diabetic peripheral neuropathy E11.42 Benign prostatic hyperplasia N40.0 Esophageal reflux K21.9 DVT prophylaxis Z29.9 (1) CAD (coronary artery disease) Associated angina: without angina Coronary Disease-Associated Artery/Lesion type: [place] artery [place] vs. transplanted heart: [place] heart Qualified Code(s): I25.10 - Atherosclerotic heart disease of [place] coronary artery without angina pectoris (2) Diabetes mellitus with circulatory complication Diabetes mellitus complication detail: with peripheral angiopathy without gangrene Diabetes mellitus meterman insulin use: without intermediate use Diabetes mellitus type: type 2 Qualified Code(s): E11.51 - Type 2 diabetes mellitus with diabetic peripheral angiopathy without gangrene
[2020-02-18] MEDS ORDERED: SENNA 8.6 MG TAB PO PRN (15:54)
[2020-02-18] MEDS ORDERED: DEXTROSE 50% 50 ML SYRINGE IV PRN (15:54)
[2020-02-18] MEDS ORDERED: NITROGLYCERIN SL 0.4 MG/TAB TAB SL PRN (15:54)
[2020-02-18] MEDS ORDERED: GLUCOSE 40% GEL 15 GM TUBE PO PRN (15:54)
[2020-02-18] MEDS ORDERED: GLUCOSE 10 TABS/TUBE PO PRN (15:54)
[2020-02-18] MEDS ORDERED: CARBOHYDRATES FOR HYPOGLYCEMIA PO PRN (15:54)
[2020-02-18] MEDS ORDERED: ONDANSETRON INJ 2 MG/ML 2 ML VIAL IV PRN (15:54)
[2020-02-18] MEDS ORDERED: GLUCAGON FOR INJ 1 MG VIAL SQ PRN (15:54)
[2020-02-18] MEDS ORDERED: ACETAMINOPHEN 325 MG TAB PO PRN (15:54)
[2020-02-18] MEDS ORDERED: HYDROCORTISONE HC 2.5% CRM 30GM TUBE EXT PRN (15:54)
[2020-02-18] MEDS ORDERED: HYDROCODONE/ACETAMOPHEN 5/325MG TAB PO PRN (16:09)
--- NOTE | 2020-02-18 16:23 | Nephrology Consultation ---
Date of Consultation February 18, 2020 Assessment & Plan (1) ESRD on hemodialysis: Mr. Mata has end-stage renal disease, has been on hemodialysis Saturday, Saturday, Saturday. Had dialysis yesterday. Recently he has been having fall at home. During last admission he is estimated dry weight was decreased from 57 to 54. He was admitted with syncopal episode and found to have orthostatic hypotension. Blood pressure improved after IV fluid bolus. Potassium was found to be elevated at 5.9. No clear sign of infection. Has been bradycardic with second-degree heart block. --hemodialysis for 2 hours for hyperkalemia, no UF, keep estimated dry weight at 56 kg --keep on scheduled for dialysis tomorrow as a regular schedule. -- continued Nephrocaps and renal diet -- dose medications for GFR less than 10 -- considering hypotension, bradycardia and second-degree heart block, suggest stopping metoprolol Will follow Thank you for allowing me to participate in your patient's care. It was a pleasure to see mr. Mata (2) Hyperkalemia: (3) Anemia: (4) Acute hypotension: (5) Fall: History of Present Illness Reason for Consultation: End-stage renal disease on hemodialysis, admitted with orthostatic hypotension and hyperkalemia. Attending Physician: Deedee Lugo MD History of Present Illness Miguel Mata is a 74-year-old gentlemen with past medical history significant for end-stage renal disease on hemodialysis, CVA, hypertension, diabetes, CHF and recent fall admitted to the hospital with orthostatic hypotension. Nephrology consult was requested to manage urgent hemodialysis room for hyperkalemia. Electronic medical records including labs and imaging reviewed in detail in patient's visit. Mr. Mata was brought to the hospital after he had an episode of syncope at home.. On admission he was noted to be weak and was unable to stand and was found to have orthostatic hypotension. Clinically he seems volume depleted, he received 3 IV fluid bolus of 500 mL. Blood pressure improved after the IV boluses. Hemoglobin was stable. Lab showed potassium 5.9. No fever, chills, shortness of breath. No clear sign of infection. Has been bradycardic with second-degree heart block. He recently has been having multiple falls at home. Recently he was admitted to the hospital after a fall when he suffered bruises around his eyes. During last admission he was eventually thought to be volume overloaded and blood pressure was running high. His estimated dry weight was decreased from 57 kg before to 54 on discharge. After dialysis yesterday he left at 55kg and on admission today he was 55.3 kg. 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 He had dialysis yesterday. Currently seems comfortable and denies any symptoms. Allergies Allergy/AdvReac Type Severity Reaction Status Date / Time adhesive Allergy Intermediate BLISTERING Verified 02/18/20 11:37 OF SKIN latex Allergy Mild Rash Verified 02/18/20 11:37 Home Medications Home Medications Medication Instructions Recorded Confirmed Type isosorbide mononitrate 60 mg 60 mg PO DAILY #30 tab 11/11/19 02/18/20 Rx tablet,extended release 24 hr Renal Caps 1 cap PO QAM #30 cap 11/20/19 02/18/20 Rx docusate sodium [Stool Softener] 100 mg PO BID #0 cap 11/26/19 02/18/20 Rx polyethylene glycol 3350 [Miralax] 17 gm PO DAILY #0 ea 12/04/19 02/18/20 Rx hydrocortisone 2.5 % topical cream 1 appln IN DAILY PRN #28 gm 12/10/19 02/18/20 Rx with perineal applicator sennosides 8.6 mg tablet 8.6 mg PO QPM PRN #30 tab 12/31/19 02/18/20 Rx metoprolol tartrate [Lopressor] 50 mg PO BID 02/08/20 02/18/20 History nitroglycerin [Nitrostat] 0.4 mg SL UD PRN 02/08/20 02/18/20 History sevelamer HCl [Renagel] 800 mg PO AC 02/08/20 02/18/20 History amlodipine [Norvasc] 5 mg PO DAILY 02/18/20 02/18/20 History atorvastatin [Lipitor] 80 mg PO DAILY 02/18/20 02/18/20 History calcitriol [Rocaltrol] 0.25 mcg PO MOWEFR 02/18/20 02/18/20 History citalopram [Celexa] 10 mg PO DAILY 02/18/20 02/18/20 History clopidogrel [Plavix] 75 mg PO DAILY 02/18/20 02/18/20 History hydrocodone-acetaminophen [[place]] 1 tab PO Q6H PRN 02/18/20 02/18/20 History levetiracetam [Keppra] 500 mg PO [id number] 02/18/20 02/18/20 History lisinopril [Zestril] 5 mg PO DAILY 02/18/20 02/18/20 History Patient History Medical History Arteriosclerotic cardiovascular disease s/p CABG 2007 Benign prostatic hyperplasia Carotid artery stenosis s/p remote R & L endarterectomies with L re-occlusion sometime before 2010. Being monitored by [facility] neuro, on Plavix. Chronic kidney disease Congestive heart failure (CHF) Depression Diabetes mellitus, type 2 A1C 5.4% 11/2019. Not on any medication. 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 Seizure disorder Stable on Keppra, no seizure for "a long time." Follows with [facility] [place]. SNHL (sensorineural hearing loss) Surgical History History of aorto-femoral bypass History of bypass graft (non vein) Aortic-femoral or bifemoral History of carotid endarterectomy L 1998, R 2009 History of cataract surgery RT/LEFT History of colonoscopy History of esophagogastroduodenoscopy (EGD) History of tooth extraction History of vascular access device IJ FOR DIAYLSIS S/P CABG (coronary artery bypass graft) (2007) [facility] Family History Brother Hypertension Hypercholesteremia Sister Diabetes Unknown Hypertension Cardiac disorder Social History Preferred Language: [place] Communication Ability: Effective Visual Impairment: No Limitations Sound Effects Person Required: No Beliefs That Will Affect Care: None marital status: Current Living Situation: Spouse Current Living Situation Comment: in an apartment per Feels Safe at Home: Yes Smoking Status: Former smoker Tobacco Type: cigarettes ; Cigarettes Per Day: 30 ; Second Hand Exposure: No ; Hx Alcohol Use: No Hx Substance Use: No caffeine: No Seatbelt Use: always Review of Systems Review of Systems: All systems reviewed & are unremarkable except as noted in HPI & below Physical Exam Constitutional: WD/WN, vitals as above + ill appearing; no acute distress Eyes: PERRL, conjunctivae normal, anicteric sclerae Bruises around the eyes ENMT: external ear and nose normal, oropharynx normal Ears: no hearing impairment Neck: normal visual inspection and trachea midline Respiratory: normal respiratory effort, lungs clear to auscultation no cough Auscultation: no crackles, no rales and no wheezes Cardiovascular: RRR, no murmur, no edema Gastrointestinal (Abdomen): normal bowel sounds, soft, nontender, no hepatosplenomegaly Percussion/Palpation: abdomen nontender, no guarding and abdomen not rigid Musculoskeletal: Extremities: extremities normal to inspection Gait: normal gait Skin: no rashes, warm and dry Neurologic: awake; not confused Psychiatric: Orientation: alert and cooperative Results & Data Vital Signs (Past 12 Hours) Vital Signs Temp Pulse Pulse Resp BP BP Pulse Ox 02/18/20 15:28 58 L 20 124/62 92 02/18/20 15:15 59 L 20 124/62 96 02/18/20 13:50 58 L 18 94 02/18/20 13:45 63 18 137/68 95 02/18/20 13:40 59 L 20 02/18/20 13:30 59 L 18 161/59 H 02/18/20 13:20 58 L 19 02/18/20 13:15 65 15 141/69 H 02/18/20 13:10 62 16 02/18/20 13:00 61 16 129/64 02/18/20 12:50 57 L 26 H 02/18/20 12:45 53 L 17 141/59 H 02/18/20 12:40 60 18 02/18/20 12:30 60 22 121/56 L 02/18/20 12:20 64 22 02/18/20 12:16 60 18 137/71 02/18/20 12:10 61 17 96 02/18/20 12:01 59 L 17 127/65 97 06/04/20 12:00 61 18 02/18/20 11:50 66 19 95 02/18/20 11:46 61 17 145/63 H 96 02/18/20 11:40 61 18 95 02/18/20 11:35 58 L 20 134/60 96 02/18/20 11:31 47 L 19 134/60 95 02/18/20 11:30 50 L 20 02/18/20 11:20 60 18 02/18/20 11:15 67 18 135/90 94 02/18/20 11:12 126/61 02/18/20 11:11 58 L 16 126/61 95 02/18/20 11:10 53 L 16 94 02/18/20 11:08 55 L 51 L 17 116/58 L 116/58 L 98 02/18/20 11:00 55 L 16 02/18/20 10:50 58 L 22 02/18/20 10:40 58 L 15 02/18/20 10:30 65 17 02/18/20 10:24 61 21 123/69 02/18/20 10:22 65 16 95/60 L 02/18/20 10:21 67 15 104/52 L 02/18/20 10:20 62 14 99 02/18/20 10:10 67 17 96 02/18/20 10:02 58 L 21 02/18/20 10:00 61 20 111/60 02/18/20 09:51 97 02/18/20 09:47 37.3 C 83 20 85/52 L 95 02/18/20 09:37 64 18 111/60 96 PG Care Time/CCT Total # of Minutes Spent Total Time Spent with Patient: Total time spent is greater than 50% in coordination of care (as documented) at patient's floor/unit and/or counseling patient: Coding Level of Care Code 27122 Inpt Consult Level 5 Diagnoses ESRD on hemodialysis N18.6; Z99.2 Hyperkalemia E87.5 Anemia D64.9 Acute hypotension I95.9 Fall W19.XXXA Encounter type: initial encounter (1) Fall Encounter type: initial encounter Qualified Code(s): W19.XXXA - Unspecified fall, initial encounter
[2020-02-18] MEDS: INSULIN ASPART 100 UNITS/ML 3 ML PEN SC SCH ×2 (16:49→21:03)
[2020-02-18] MEDS: SEVELAMER HCL 800 MG TABLET PO SCH (16:50)
--- NOTE | 2020-02-18 17:03 | Electrocardiogram Report ---
Test Reason : Blood Pressure : / mmHG Vent. Rate : 060 BPM Atrial Rate : 080 BPM P-R Int : 000 ms QRS Dur : 096 ms QT Int : 446 ms P-R-T Axes : 073 -59 181 degrees QTc Int : 446 ms Sinus rhythm with 2nd degree A-V block (Mobitz I) Left axis deviation Inferoposterior DE, age indeterminate Abnormal ECG When compared with ECG of 10-FEB-2020 02:58, Sinus rhythm is now with 2nd degree A-V block (Mobitz I) Vent. rate has decreased BY 37 BPM Incomplete right bundle branch block is no longer Present Confirmed by Oli Holguin ([id number]) on 02/18/2020 5:02:55 PM Referred By: Confirmed By:Oli Holguin
[2020-02-18 17:23] LABS: BUN Creatinine Ratio 9.9 (10-20); Calcium 8.8 mg/dl (8.5-10.1); Est GFR (African American) 13.6; Est GFR (Non-African American) 11.8; Potassium 5.8 mmol/L (3.5-5.1)
[2020-02-18] MEDS ORDERED: SODIUM CHLORIDE 0.9% 1000ML 1,000 ML IV PRN (17:37)
[2020-02-18] MEDS: DOCUSATE SODIUM 100 MG CAP PO SCH (19:57)
[2020-02-18] MEDS: HEPARIN SOD 5,000 UNIT/0.5 ML VIAL SQ SCH (19:57)
[2020-02-18] MEDS: METOPROLOL TARTRATE 25 MG TAB PO SCH (20:02)
[2020-02-19] MEDS ORDERED: CITALOPRAM 20 MG TAB PO SCH (08:00)
[2020-02-19] MEDS ORDERED: CLOPIDOGREL BISULFATE 75 MG TAB PO SCH (08:00)
[2020-02-19] MEDS ORDERED: POLYETHYLENE (MIRALAX) 17 GM PACK PO SCH (08:00)
[2020-02-19] MEDS ORDERED: ATORVASTATIN 40 MG TAB PO SCH (08:00)
[2020-02-19] MEDS ORDERED: ISOSORBIDE MONO EXTENDED REL 60 MG TABCR PO SCH (08:00)
[2020-02-19] MEDS ORDERED: CALCITRIOL 0.25 MCG CAPSULE PO SCH (08:00)
[2020-02-19] MEDS ORDERED: NEPHROCAPS PO SCH (08:00)
[2020-02-19] MEDS: DOCUSATE SODIUM 100 MG CAP PO SCH (08:09)
[2020-02-19] MEDS: HEPARIN SOD 5,000 UNIT/0.5 ML VIAL SQ SCH (08:10)
[2020-02-19] MEDS: SEVELAMER HCL 800 MG TABLET PO SCH ×3 (08:10→15:20)
[2020-02-19] MEDS: METOPROLOL TARTRATE 25 MG TAB PO SCH (08:10)
[2020-02-19] MEDS: INSULIN ASPART 100 UNITS/ML 3 ML PEN SC SCH ×2 (08:20→12:10)
[2020-02-19 09:06] LABS: Hematocrit (blood only) 39.6 % (42-52); Hemoglobin 12.3 g/dL (14.0-18.0); Mean Corpuscular Hemoglobin 30.6 pg (25-34); Mean Corpuscular Hgb Conc 31.1 g/dL (32-36); Mean Corpuscular Volume 98.5 fL (80-100); Mean Platelet Volume 10.1 fL (7.4-10.4); Platelet Count 214 K/uL (130-400); RDW Coefficient of Variation 16.3 % (11.5-14.5); RDW Standard Deviation 59.2 fL (36.4-46.3); Red Blood Count 4.02 M/uL (4.7-6.1); White Blood Count 9.99 K/uL (4.8-10.8)
[2020-02-19 09:33] LABS: Albumin Level 3.1 gm/dl (3.4-5.0); BUN Creatinine Ratio 7.5 (10-20); Creatinine Clr Calc Pharmacy 13.2 ml/min; Est GFR (African American) 17.1; Est GFR (Non-African American) 14.7; Potassium 5.2 mmol/L (3.5-5.1)
[2020-02-19 09:44] LABS: Albumin Globulin Ratio 0.7 (0.9-2); Bilirubin,Total 0.7 mg/dl (0.2-1); Globulin 4.3 gm/dl (2.5-4.0); Total Protein 7.4 gm/dl (6.4-8.2)
[2020-02-19] MEDS ORDERED: SODIUM POLYSTYRENE SULFONATE 15G/60ML SUSP PO ONE (10:45)
--- NOTE | 2020-02-19 11:54 | Nephrology Progress Note ---
Date of Service February 19, 2020 Assessment & Plan (1) ESRD on hemodialysis: Mr. Mata has end-stage renal disease, has been on hemodialysis Saturday, Saturday, Saturday. Had dialysis yesterday. Recently he has been having fall at home. During last admission he is estimated dry weight was decreased from 57 to 54. He was admitted with syncopal episode and found to have orthostatic hypotension. Blood pressure improved after IV fluid bolus. Potassium was found to be elevated at 5.9. No clear sign of infection. Has been bradycardic with second-degree heart block. Had urgent hemodialysis for 2 hours yesterday, potassium improved from 5.9-5.2 this morning. He is normally Saturday, Saturday, Saturday however his volume status, blood pressure acceptable. --since he had dialysis yesterday, currently volume status acceptable will skip dialysis today and plan for dialysis tomorrow. Give Kayexalate 30 grams p.o. x1 dose. He otherwise seems to be at his baseline and if decision is to discharge him home this afternoon, will have to do dialysis today as his next dialysis will be Saturday -- continued Nephrocaps and renal diet -- dose medications for GFR less than 10 -- considering hypotension, bradycardia and second-degree heart block, suggest stopping metoprolol Will follow Admission and Anticipated Discharge Date Admission Date: February 18, 2020 Jesus Rivera was seen and examined in his room this morning. Was lying in bed, seems to be comfortable and at his baseline. Blood pressure remained relatively low, denies any shortness of breath or chest pain. Potassium again slightly elevated after 2 hours dialysis yesterday. Volume status acceptable. Review of Systems Review of Systems: All systems reviewed & are unremarkable except as noted in HPI & below Physical Exam Constitutional: WD/WN, vitals as above no acute distress Neck: normal visual inspection Respiratory: normal respiratory effort, lungs clear to auscultation no cough Auscultation: no crackles, no rales and no wheezes Cardiovascular: RRR, no murmur, no edema Skin: no rashes, warm and dry Neurologic: awake; not confused Psychiatric: Orientation: alert and cooperative Results & Data ([facility]) Vital Signs (Past 12 Hours) Vital Signs Temp Pulse Resp BP Pulse Ox 02/19/20 07:24 37.5 C 70 18 110/56 L 96 02/19/20 04:17 37.0 C 70 18 129/75 96 PG Care Time/CCT Total # of Minutes Spent Total Time Spent with Patient: Total time spent is greater than 50% in coordination of care (as documented) at patient's floor/unit and/or counseling patient: Coding Level of Care Code 53517 Subseq Hosp Care Lvl 2 Diagnoses ESRD on hemodialysis N18.6; Z99.2
--- NOTE | 2020-02-19 15:04 | Discharge Summary ---
Date of Service February 19, 2020 Admission HPI Per Admitting Provider Is a 74-year-old male with PMHx of ESRD on hemodialysis MWF, hypertensive urgency, CHF, CAD, CVA involving left MCA on Plavix, left sided encephalomalacia with moderate to severe atrophy on most recent MRI, causing residual right-sided weakness and aphasia, chronic left ICA occlusion since 2010, epilepsy on Keppra, DM type II, depression and constipation. Patient was recently admitted from February 07- for hypertensive urgency and acute exacerbation of CHF, hypoxia and altered mental state. The patient is a poor historian due to aphasia as well as mood changes, likely secondary to left-sided encephalomalacia as described above, therefore his provides majority of the history. She reports this morning when they woke up patient seemed to be in his normal state of health however once sitting up on the bed his eyes rolled back and was not responding to her as well as normal. She found this concerning. He proceeded to walk to the bathroom, had a large bowel movement, then proceeded to eat breakfast without difficulty. Patient's thought that his small episode this morning of unresponsiveness was concerning, therefore brought him to the ER. Once here in the ER patient attempted to stand at bedside however BP acutely dropped and patient had episode of passing out. He has not fallen or sustained any acute injury. She notes that he has been using a walker for the last 2 to 3 days due to increased weakness. His last dialysis session was yesterday, she is unaware of the amount of fluid that was dialyzed off of him. He has been eating and drinking normally, with fluid restriction as he was hypervolemic during his last hospital stay. Prior to 2 weeks ago when he fell initially he was walking without ambulatory assistive device, getting himself dressed, participating in normal ADLs. Principal Diagnosis Pt states he feels at his usual. Pt denies fever, SOB, chest pain, abd pain, n/v/c/d, LE pain or swelling. He ate without issue. I spoke with pt's and she had spoken with pt via phone. She felt that he sounded like he usually does. She felt that he was mentating at his usual. She would like to bring him home today. Discharge Exam Constitutional WD/WN, vitals as above Eyes normal visual prieto by confrontation and + anicteric sclerae Neck normal visual inspection and trachea midline Respiratory normal respiratory effort, lungs clear to auscultation Cardiovascular Rate/Rhythm: regular rate and regular rhythm Gastrointestinal (Abdomen) Inspection/Auscultation: abdomen not distended Percussion/Palpation: abdomen soft; abdomen nontender Musculoskeletal Head/Neck/Chest: normocephalic and head atraumatic Skin no rashes, warm and dry Neurologic awake; not confused Speech / Cognition: + expressive aphasia Psychiatric Orientation: oriented to person, oriented to place and cooperative Affect: euthymic affect Discharge Data Allergies Allergy/AdvReac Type Severity Reaction Status Date / Time adhesive Allergy Intermediate BLISTERING Verified 02/18/20 11:37 OF SKIN latex Allergy Mild Rash Verified 02/18/20 11:37 Consultations 02/18/20 11:45 ED Decision to Admit Stat 02/18/20 15:54 Consult Case Management - Discharge Planning Routine Consult Nephrology Routine Hospital Course (1) Vasovagal syncope: - Admit to PCU - Given total of 1500mL NSS in the ER, will hold off on further fluids at this point as this is likely a result of too much fluid removal from dialysis done yesterday. Pt unaware of how much was dialyzed. - Trend orthostatics: In the ER BP dropped from 104/50 - 95/60 - Last Echo completed 11/17/19 - showing EF of 50-55%, borderline concentric LVH, hypokinesis of the proximal infero posterior wall. No need for repeat at this time. - After discharge from last admission from February 07- lisinopril was added to regimen for BP control, held on admission Will resume HTN medications with the exception of lisinopril and monitor Advised to check BP and record readings, as well as episodes of lightheadedness/dizziness to determine ongoing medication dosing - Check Blood cultures - permacath site and peripheral, WBC elevated at 13.2 but has been elevated even during the last admission, AVF site appears to be healing well, no surrounding erythema, edema, no drainage from the surgical site, follows with Dr. Boyd (Pt had an outpt appt scheduled for today, will need to be rescheduled), afebrile. (2) Second degree heart block: -With Mobitz type I secondary heart block on admission ECG with heart rates in the 50s to 60s -Unclear if is contributing to his episodes of syncope May need t/c decreasing dose of metoprolol if ongoing BP/syncope/presyncope -Follow on telemetry (3) ESRD on hemodialysis: - Nephro consulted- last HD session was 02/16. Dr. Muniz has arranged for outpt HD on 02/19 given unable to have HD prior to d/c - Allow low potassium diet, K elevated at 5.9 on admission - Continue on sevelamer 800 mg PO AC (4) Hyperkalemia: - BMP with K+ = 5.9 on admission, improved to 5.8 Repeat kayexalate on 02/18 (5) Congestive heart failure (CHF): -Chronic, diastolic -Fully dialysis dependent and would not benefit from a loop diuretic -Nephrology consulted as above (6) CAD (coronary artery disease): -History noted, continue metoprolol, Plavix, and atorvastatin, history of [place] in early -With CABG (7) Peripheral artery disease: -History noted, secondary to above With history of iliofemoral bypass -Continue Plavix, statin (8) Hypertension: Monitor s/p d/c lisinopril (9) Carotid artery stenosis: - Chronic left ICA occlusion known since 2010 - Continue medical therapy with Plavix 75 mg daily and atorvastatin 80 mg daily (10) History of CVA with residual deficit: -Right-sided residual deficits s/p left MCA ischemic stroke -Continue Plavix, controlling HTN/DM -A1c is 5.4 as above, goal of keeping LDL <70, BP <135/85- Hx of such -MRI Brain with large left-sided encephalomalacia with moderate to severe atrophy-could be the cause of some of his personality changes, but he is also been recently started on Keppra which can also contribute to changes in mood (11) Seizure disorder: -History of same, no new seziures noted with unresponsive issue and pt noted to have no post-ictal state -Was switched from Dilantin to Keppra 01/05/2020, continue on Keppra 500 mg p.o. MWFSun after dialysis sessions. Keppra level pending on d/c, but minimal concern for seizure activity -No history of seizures for many years -Follow with neurology as an outpatient (12) Expressive aphasia: -Noted, secondary to CVA, patient's ability to express thoughts has worsened over the last 2 weeks per patient . (13) Diabetes mellitus with circulatory complication: - A1C= 5.4 on 11/18/2019 - Will place on ISS with accuchecks with elevated glucose on arrival for monitoring, may DC after 24 hours if no need for insulin. (14) Diabetic peripheral neuropathy: -Stable (15) Benign prostatic hyperplasia: -Noted -Also, unclear how much urine he makes given that he is on dialysis now (16) Esophageal reflux: no current medications (17) DVT prophylaxis: -Lovenox SQ CODE: Full code, admitting physician discussed with the patient and his noted that HHN was to be set up from d/c on 02/11, however this has not been arranging CM d/w and getting this set up for pt Total Time Total Time Spent Total Time Spent (In Minutes): >30 Total Time Includes: Examination of the Patient, Discharge Planning, Medication Reconciliation, Communication With Other Providers and Other Discharge Plan Discharge Items Patient Disposition: Home - Home Health Services Reason For Visit: SYNCOPAL EPISODE Discharge Diagnosis: Syncope Activity: Resume your previous activity Non-emergency contact: Primary Care Provider and Supervisor Special Effects Call non-emergency contact if: you have any medication questions and your symptoms worsen Follow-up/Referrals: Erick Zapata III, MD [Primary Care Provider] - Diet: Carb Consistent or DM2, Heart Healthy and Low Sodium (2gm) Addtl Attending Provider Instructions: You will have dialysis TOMORROW (Saturday02/20/2020) at 10:30am at your usual dialysis center. Dr. Muniz has spoken with them and this has already been arranged. It is very important that you go to your dialysis tomorrow. You likely passed out related to your blood pressure medications. You should check your blood pressure daily. You should stop taking lisinopril for now. Write down your blood pressures and take this with you to your doctors' appointments. You may need more or less blood pressure medication moving forward. Pending Studies at Discharge: No Stand-Alone Forms: My [employer], Smoking Cessation Medications and DC Order Prescriptions: Continued isosorbide mononitrate 60 mg tablet extended release 24 hr 60 mg PO DAILY Qty: 30 RF: 5 sennosides [Senokot] 8.6 mg tablet 8.6 mg PO QPM PRN (Reason: Constipation) Qty: 30 RF: 0 hydrocortisone [Proctosol HC] 2.5 % cream with perineal applicator 1 appln [place] DAILY PRN (Reason: itching) Qty: 28 RF: 0 Renal Caps 1 mg Capsule 1 cap PO QAM Qty: 30 RF: 0 docusate sodium [Stool Softener] 100 mg Capsule 100 mg PO BID Qty: 0 RF: 0 polyethylene glycol 3350 [Miralax] 17 gram powder in packet 17 gm PO DAILY Qty: 0 RF: 0 metoprolol tartrate [Lopressor] 50 mg tablet 50 mg PO BID RF: 0 sevelamer HCl [Renagel] 800 mg tablet 800 mg PO AC RF: 0 nitroglycerin [Nitrostat] 0.4 mg tablet, sublingual 0.4 mg SL UD PRN (Reason: Chest Pain) RF: 0 atorvastatin [Lipitor] 80 mg tablet 80 mg PO DAILY RF: 0 hydrocodone-acetaminophen [[place]] 5-325 mg tablet 1 tab PO Q6H PRN (Reason: Pain) RF: 0 amlodipine [Norvasc] 5 mg tablet 5 mg PO DAILY RF: 0 calcitriol [Rocaltrol] 0.25 mcg capsule 0.25 mcg PO MOWEFR RF: 0 levetiracetam [Keppra] 500 mg tablet 500 mg PO [id number] RF: 0 citalopram [Celexa] 10 mg tablet 10 mg PO DAILY RF: 0 clopidogrel [Plavix] 75 mg tablet 75 mg PO DAILY RF: 0 Discontinued lisinopril [Zestril] 5 mg tablet 5 mg PO DAILY RF: 0 Discharge Orders: Discharge Order (Routine); Ordered 02/19/20 Ordered By: Precious Gallo Admission Data Admit Date/Time: 02/18/20 12:45 Attending Provider: Precious Gallo Admit Provider: Deedee Lugo Primary Care Provider: Erick Zapata III Other Providers: Deedee Lugo ; Tabitha Muniz ; [facility] Other Interventions: Discharge Summary Assessment (RN) Last Done: 02/19/20 14:58 DC Date/Time DO NOT enter until pt leaves facility: 02/19/20 16:44 Coding Level of Care Code D/C Day Management >30 mins Diagnoses Vasovagal syncope R55 Second degree heart block I44.1 ESRD on hemodialysis N18.6; Z99.2 Hyperkalemia E87.5 Congestive heart failure (CHF) I50.9 CAD (coronary artery disease) I25.10 Associated angina: without angina Coronary Disease-Associated Artery/Lesion type: [place] artery [place] vs. transplanted heart: [place] heart Peripheral artery disease I73.9 Hypertension I10 Carotid artery stenosis I65.29 History of CVA with residual deficit I69.30 Seizure disorder G40.909 Expressive aphasia R47.01 Diabetes mellitus with circulatory complication E11.51 Diabetes mellitus complication detail: with peripheral angiopathy without gangrene Diabetes mellitus keno terminal operator insulin use: without keno terminal operator use Diabetes mellitus type: type 2 Diabetic peripheral neuropathy E11.42 Benign prostatic hyperplasia N40.0 Esophageal reflux K21.9 DVT prophylaxis Z29.9
[2020-02-19] MEDS ORDERED: levETIRAcetam 500 MG TAB PO SCH (16:00)
== END 2020-02-19 16:44 | disposition home health service (06) ==
LOC: ED 09:36 → SUATTDRO 12:45 → 2S 12:45 → INTOOBSV 12:45 → 2S 15:28

== ENCOUNTER 2020-03-03 12:01 | Observation (INO) ==
[2020-03-03] MEDS ORDERED: SODIUM CHLORIDE 0.9% 500 ML IV SCH (12:45)
--- NOTE | 2020-03-03 12:52 | XRay Report ---
XR chest 1V portable HISTORY: 74 years-old Male weakness acute weakness COMPARISON: Chest radiograph 02/18/2020 TECHNIQUE: Portable AP view of the chest FINDINGS: Cardiac silhouette is upper limits of normal in size, unchanged. Prior median sternotomy. Unchanged p ositioning of the dual-lumen hemodialysis catheter, distal tip overlying the expected location of the inferior SVC. No pneumothorax, large pleural effusion, overt pulmonary edema or airspace consolidati on typical for pneumonia. Degenerative changes of the shoulders and spine. IMPRESSION: No acute process. ACT 112: Negative or not required by law. The above report was generated using voice recognition software. It may contain grammatical, syntax o r spelling errors. Electronically signed by: Romel May M.D. 03/03/2020 12:51 PM
[2020-03-03 13:07] LABS: Basophils # (auto) 0.08 K/uL (0-0.2); Basophils % (auto) 0.7 %; Eosinophils # (auto) 0.45 K/uL (0-0.5); Eosinophils % (auto) 3.7 %; Hematocrit (blood only) 39.5 % (42-52); Immature Granulocytes # (auto) 0.14 K/uL (0.00-0.02); Immature Granulocytes % (auto) 1.1 %; Lymphocytes # (auto) 3.51 K/uL (1.2-3.4); Lymphocytes % (auto) 28.8 %; Mean Corpuscular Hemoglobin 30.3 pg (25-34); Mean Corpuscular Hgb Conc 30.4 g/dL (32-36); Mean Corpuscular Volume 99.7 fL (80-100); Mean Platelet Volume 10.2 fL (7.4-10.4); Monocytes # (auto) 1.49 K/uL (0.11-0.59); Monocytes % (auto) 12.2 %; Neutrophils # (auto) 6.53 K/uL (1.4-6.5); Neutrophils % (auto) 53.5 %; Platelet Count 269 K/uL (130-400); RDW Coefficient of Variation 17.1 % (11.5-14.5); RDW Standard Deviation 62.3 fL (36.4-46.3); Red Blood Count 3.96 M/uL (4.7-6.1)
[2020-03-03 13:26] LABS: Prothrombin Time 10.8 Seconds (9.0-12.0)
--- NOTE | 2020-03-03 13:27 | CT Scan Report ---
CT head/brain wo con CLINICAL HISTORY: 74 years-old Male with dizziness. Acute dizziness TECHNIQUE: Multiple axial CT images of the head were obtained without contrast. A dose lowering tech nique was utilized adhering to the principles of ALARA. CT DOSE: 614.27 mGy.cm COMPARISON: Head CT 02/08/2020. FINDINGS: No acute intracranial hemorrhage, midline shift, intracranial mass, hydrocephalus, territorial ischem ia or abnormal extra-axial collection. Age-related involutional changes with ex vacuo ventriculomegal y. Encephalomalacia of the left frontal lobe from remote infarct redemonstrated. Patchy white matter hypodensities suggest chronic microvascular ischemic disease. Cerebral vascular calcifications. The calvarium is intact. Prior bilateral lens replacement. The paranasal sinuses, mastoid air cells, and middle ear cavities are clear. IMPRESSION: Chronic findings as above without acute intracranial abnormality. ACT 112: Negative or not required by law. The above report was generated using voice recognition software. It may contain grammatical, syntax o r spelling errors. Electronically signed by: Romel May M.D. 03/03/2020 1:26 PM
--- NOTE | 2020-03-03 13:27 | Emergency Department Note ---
Impression & Plan Acute hyperkalemia, ESRD on dialysis, Dizziness ED Provider Note NAME: VIVIANA LANIER AGE: 74 SEX: M : 1945 ARRIVES VIA: Ambulance INFORMANT: Patient, ED PROVIDER(S): Foreign Grayson MD Chief Complaint: Dizziness HPI: Patient does present with concern for intermittent dizziness. The patient did present from home. The patient does have a known history of end-stage renal disease on dialysis Saturday last completed his treatment yesterday. Patient denies any fevers or chills. Patient does have a history of a prior stroke for which she does have some weakness on the right side. The pat ient denies any chest pains or shortness of breath. The patient denies vertigo or vertiginous symptoms. Nursing had reported that he had complained of some neck pain but the patient currently does not complain of any neck pain and no reported falls. Patient denies any nausea vomiting. The patient not had any diarrhea. Patient does not report being outside for prolonged period of time. ROS: See HPI for pertinent positives and negatives. A total of 10 systems were reviewed and otherwise negative. Past medical history: See below Surgical history: See below Social history: See below Physical Exam: GENERAL: Wearing a mask, NAD, non-toxic. EYE EXAM: Normal conjunctiva. PERRL, no anisocoria and EOM's grossly intact w/o pain. NECK: Supple, no nuchal rigidity, no adenopathy, non-tender. No signs of meningismus. No carotid bruits appreciated. Chest: Permacath located in right chest without any obvious fluctuance or drainage or bleeding. LUNGS: Clear to auscultation. Normal chest wall mechanics. HEART: NSR, systolic ejection murmur noted. ABDOMEN: Abdomen soft, non-tender, normo-active bowel sounds, no masses, no rebound or guarding. BACK: No CVA TTP. SKIN: No rashes and no bruising. UPPER EXTREMITIES: Patient does have a well-healing laceration or surgical repair of the left proximal forearm. LOWER EXTREMITIES: Grossly normal, no edema. NEURO EXAM: A&O x3, cranial nerves II-XII grossly intact, normal speech, moves all 4 extremities on command w/o issue with exception of mild weakness of the bilateral right upper and lower extremities. Differential diagnoses: Infection, dehydration, metabolic abnormality, hypo/hyperglycemia, electrolyte disturbance, anemia, hypoxia, cardiac sources, intracerebral event, toxicologic, neurologic, as well as other pathologies. Course: Patient was seen and evaluated the bedside. Full history physical exam was performed. EKG: Indication: Dizziness Sinus bradycardia with prolonged IA just greater than 200 at 202, rate of 59, ST slight depression and T wave inversion in the lateral leads and high lateral leads. Imaging Studies: Radiology results as stated below per my review in the radiologist's interpretation: XR chest 1V portable HISTORY: 74 years-old Male weakness acute weakness COMPARISON: Chest radiograph 02/18/2020 TECHNIQUE: Portable AP view of the chest FINDINGS: Cardiac silhouette is upper limits of normal in size, unchanged. Prior median sternotomy. Unchanged positioning of the dual-lumen hemodialysis catheter, distal tip overlying the expected location of the inferior SVC. No pneumothorax, large pleural effusion, overt pulmonary edema or airspace consolidation typical for pneumonia. Degenerative changes of the shoulders and spine. IMPRESSION: No acute process. ACT 112: Negative or not required by law. The above report was generated using voice recognition software. It may contain grammatical, syntax or spelling errors. Electronically signed by: Romel May M.D. 03/03/2020 12:51 PM Dictated: 03/03/20 1249 Transcribed: 03/03/[address] head/brain wo con CLINICAL HISTORY: 74 years-old Male with dizziness. Acute dizziness TECHNIQUE: Multiple axial CT images of the head were obtained without contrast. A dose lowering technique was utilized adhering to the principles of ALARA. CT DOSE: 614.27 mGy.cm COMPARISON: Head CT 02/08/2020. FINDINGS: No acute intracranial hemorrhage, midline shift, intracranial mass, hydrocephalus, territorial ischemia or abnormal extra-axial collection. Age- related involutional changes with ex vacuo ventriculomegaly. Encephalomalacia of the left frontal lobe from remote infarct redemonstrated. Patchy white matter hypodensities suggest chronic microvascular ischemic disease. Cerebral vascular calcifications. The calvarium is intact. Prior bilateral lens replacement. The paranasal sinuses, mastoid air cells, and middle ear cavities are clear. IMPRESSION: Chronic findings as above without acute intracranial abnormality. ACT 112: Negative or not required by law. The above report was generated using voice recognition software. It may contain grammatical, syntax or spelling errors. Electronically signed by: Romel May M.D. 03/03/2020 1:26 PM Dictated: 03/03/20 1323 Transcribed: 03/03/20 1323 Cardiac monitoring: An order was placed for continuous cardiac monitoring. The monitor shows a rate of 63 with sinus rhythm. MDM: Patient was seen due to concern for dizziness. The patient does have a mild white count of 12 with relatively normal hemoglobin also at 12. Platelet count is normal. X-rays negative. Patient's kidney function does show CKD with the patient does have elevated potassium at 6.3. Given the patient does have a slightly prolonged IA and slight bradycardia I did order treatments. The patient did receive IV insulin, dextrose, albuterol and calcium chloride. I did speak with the on-call inclusion special educator Dr. Villagran who was going to call the hemodialysis nurse in order to arrange the patient to be dialyzed this afternoon. Subsequent spoke with the on-call hospitalist who agreed to further evaluate and treat the patient. The patient was admitted to the medicine service by Dr. Jones. Critical Care: I have personally spent 55 minutes of critical care time in direct management of this patient. This includes bedside care, interpretation of diagnostic studies, and testing, discussion with consultants, patient, and family members, and other require inpatient management activities. This 55 minutes is in excess of all separately billable procedures. Past Med/Surg History Medical History Arteriosclerotic cardiovascular disease s/p CABG 2007 Benign prostatic hyperplasia Carotid artery stenosis s/p remote R & L endarterectomies with L re-occlusion sometime before 2010. Being monitored by [facility] neuro, on Plavix. Chronic kidney disease Congestive heart failure (CHF) Depression Diabetes mellitus, type 2 A1C 5.4% 11/2019. Not on any medication. 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 Hyperlipidemia Hypertension Myocardial Infarction 1989? Seizure disorder Stable on Keppra, no seizure for "a long time." Follows with [facility] neurology. SNHL (sensorineural hearing loss) Surgical History History of aorto-femoral bypass History of bypass graft (non vein) Aortic-femoral or bifemoral History of carotid endarterectomy L 1998, R 2009 History of cataract surgery RT/LEFT History of colonoscopy History of esophagogastroduodenoscopy (EGD) History of tooth extraction History of vascular access device IJ FOR DIAYLSIS S/P CABG (coronary artery bypass graft) (2007) [facility] Family History Brother Hypertension Hypercholesteremia Sister Diabetes Unknown Hypertension Cardiac disorder Social History Preferred Language: Chadian Communication Ability: Effective Visual Impairment: No Limitations Test Preparation Tutor Required: No Beliefs That Will Affect Care: None marital status: Current Living Situation: Spouse Current Living Situation Comment: in an apartment per Feels Safe at Home: Yes Smoking Status: Former smoker Tobacco Type: cigarettes ; Cigarettes Per Day: 30 ; Second Hand Exposure: No ; Hx Alcohol Use: No Hx Substance Use: No caffeine: No Seatbelt Use: always Allergies Allergies Allergy/AdvReac Type Severity Reaction Status Date / Time adhesive Allergy Intermediate BLISTERING Verified 03/03/20 13:30 OF SKIN latex Allergy Mild Rash Verified 03/03/20 13:30 Home Meds Home Medications Medication Instructions Recorded Confirmed nitroglycerin [Nitrostat] 0.4 mg SL UD PRN 02/08/20 03/03/20 sevelamer HCl [Renagel] 800 mg PO AC 02/08/20 03/03/20 amlodipine [Norvasc] 5 mg PO DAILY 02/18/20 03/03/20 atorvastatin [Lipitor] 80 mg PO DAILY 02/18/20 03/03/20 calcitriol [Rocaltrol] 0.25 mcg PO MOWEFR 02/18/20 03/03/20 clopidogrel [Plavix] 75 mg PO DAILY 02/18/20 03/03/20 levetiracetam [Keppra] 500 mg PO [id number] 02/18/20 03/03/20 losartan 25 mg tablet 25 mg PO DAILY 03/01/20 03/03/20 Previous Rx's Medication Instructions Recorded isosorbide mononitrate 60 mg 60 mg PO DAILY #30 tab 11/11/19 tablet,extended release 24 hr Renal Caps 1 cap PO QAM #30 cap 11/20/19 docusate sodium [Stool Softener] 100 mg PO BID #0 cap 11/26/19 polyethylene glycol 3350 [Miralax] 17 gm PO DAILY #0 ea 12/04/19 hydrocortisone 2.5 % topical cream 1 appln IA DAILY PRN #28 gm 12/10/19 with perineal applicator sennosides 8.6 mg tablet 8.6 mg PO QPM PRN #30 tab 12/31/19 citalopram 20 mg tablet 20 mg PO DAILY #30 tab 02/29/20 famotidine 40 mg tablet 40 mg PO BID #180 tab 03/01/20 Results & Data (ED) Vital Signs Vital Signs - 24 hr 03/03/20 12:01 03/03/20 12:07 03/03/20 12:30 Temperature 36.9 C Temperature Source Oral Pulse Rate 63 63 62 Pulse Rate [Right Finger] Pulse Rate from SpO2 Sensor 62 61 Pulse Rhythm Respiratory Rate 18 22 15 Respiratory Effort / Characteristics Non-Labored Spontaneous Respiratory Depth Normal Respiratory Pattern Regular Blood Pressure 87/51 L 83/54 L 101/51 L Blood Pressure Mean 63 65 66 Pulse Oximetry 96 97 96 Oxygen Delivery Method Room Air Sepsis Recent Fever Within 48 Hours No Sepsis New/Unexplained Change in Mental Status No Sepsis Action Taken by Nursing No Action Required 03/03/20 12:52 03/03/20 13:00 03/03/20 14:00 Temperature Temperature Source Pulse Rate 63 58 L 55 L Pulse Rate [Right Finger] Pulse Rate from SpO2 Sensor 55 L Pulse Rhythm Regular Respiratory Rate 18 14 20 Respiratory Effort / Characteristics Respiratory Depth Respiratory Pattern Blood Pressure 95/46 L 94/49 L Blood Pressure Mean 57 62 Pulse Oximetry 96 98 Oxygen Delivery Method Room Air Room Air Sepsis Recent Fever Within 48 Hours Sepsis New/Unexplained Change in Mental Status Sepsis Action Taken by Nursing 03/03/20 14:31 03/03/20 14:41 03/03/20 15:20 Temperature Temperature Source Pulse Rate 58 L 89 Pulse Rate [Right Finger] 58 L Pulse Rate from SpO2 Sensor 72 93 H Pulse Rhythm Respiratory Rate 17 16 14 Respiratory Effort / Characteristics Non-Labored Spontaneous Respiratory Depth Respiratory Pattern Blood Pressure 129/60 138/68 Blood Pressure Mean 83 74 Pulse Oximetry 96 99 96 Oxygen Delivery Method Nebulizer Room Air Room Air Sepsis Recent Fever Within 48 Hours Sepsis New/Unexplained Change in Mental Status Sepsis Action Taken by Retirement Medications Current Medication List: was personally reviewed by me Laboratory Data Attestation: I reviewed the patient's lab results. Result diagrams: 03/03/20 12:54 03/03/20 12:54 Lab Results 03/03/20 03/03/20 03/03/20 Range/Units 12:54 12:54 12:54 WBC 12.20 H (4.8-10.8) K/uL RBC 3.96 L (4.7-6.1) M/uL Hgb 12.0 L (14.0-18.0) g/dL Hct 39.5 L (42-52) % MCV 99.7 (80-100) fL MCH 30.3 (25-34) pg MCHC 30.4 L (32-36) g/dL RDW Std Deviation 62.3 H (36.4-46.3) fL RDW Coeff of Shayy 17.1 H (11.5-14.5) % Plt Count 269 (130-400) K/uL MPV 10.2 (7.4-10.4) fL Immature Gran % (Auto) 1.1 % Neut % (Auto) 53.5 % Lymph % (Auto) 28.8 % Giles % (Auto) 12.2 % Eos % (Auto) 3.7 % Baso % (Auto) 0.7 % Immature Gran # (Auto) 0.14 H (0.00-0.02) K/uL Neut # (Auto) 6.53 H (1.4-6.5) K/uL Lymph # (Auto) 3.51 H (1.2-3.4) K/uL Giles # (Auto) 1.49 H (0.11-0.59) K/uL Eos # (Auto) 0.45 (0-0.5) K/uL Baso # (Auto) 0.08 (0-0.2) K/uL PT 10.8 (9.0-12.0) Seconds INR 1.0 (0.9-1.1) Sodium 137 (136-145) mmol/L Potassium 6.3 H* (3.5-5.1) mmol/L Chloride 100 (98-107) mmol/L Carbon Dioxide 31 (21-32) mmol/L Anion Gap 6.0 (3-11) BUN 69 H (7-18) mg/dl Creatinine 4.89 H* (0.6-1.4) mg/dl Est Cr Clr Drug Dosing 10.8 ml/min Est GFR ( Amer) 12.6 Est GFR (Non-Af Amer) 10.8 BUN/Creatinine Ratio 14.4 (10-20) Glucose 136 H (70-99) mg/dl Calcium 10.3 H (8.5-10.1) mg/dl Magnesium 2.5 H (1.8-2.4) mg/dl Total Bilirubin 0.4 (0.2-1) mg/dl AST 15 (15-37) U/L ALT 25 (12-78) U/L Alkaline Phosphatase 70 (45-117) U/L Ammonia (11-32) umol/L Troponin I 0.045 (0-0.045) ng/ml Total Protein 8.3 H (6.4-8.2) gm/dl Albumin 3.7 (3.4-5.0) gm/dl Globulin 4.6 H (2.5-4.0) gm/dl Albumin/Globulin Ratio 0.8 L (0.9-2) TSH 0.926 (0.300-4.500) uIu/ml 03/03/20 Range/Units 12:54 WBC (4.8-10.8) K/uL RBC (4.7-6.1) M/uL Hgb (14.0-18.0) g/dL Hct (42-52) % MCV (80-100) fL MCH (25-34) pg MCHC (32-36) g/dL RDW Std Deviation (36.4-46.3) fL RDW Coeff of Shayy (11.5-14.5) % Plt Count (130-400) K/uL MPV (7.4-10.4) fL Immature Gran % (Auto) % Neut % (Auto) % Lymph % (Auto) % Giles % (Auto) % Eos % (Auto) % Baso % (Auto) % Immature Gran # (Auto) (0.00-0.02) K/uL Neut # (Auto) (1.4-6.5) K/uL Lymph # (Auto) (1.2-3.4) K/uL Giles # (Auto) (0.11-0.59) K/uL Eos # (Auto) (0-0.5) K/uL Baso # (Auto) (0-0.2) K/uL PT (9.0-12.0) Seconds INR (0.9-1.1) Sodium (136-145) mmol/L Potassium (3.5-5.1) mmol/L Chloride (98-107) mmol/L Carbon Dioxide (21-32) mmol/L Anion Gap (3-11) BUN (7-18) mg/dl Creatinine (0.6-1.4) mg/dl Est Cr Clr Drug Dosing ml/min Est GFR ( Amer) Est GFR (Non-Af Amer) BUN/Creatinine Ratio (10-20) Glucose (70-99) mg/dl Calcium (8.5-10.1) mg/dl Magnesium (1.8-2.4) mg/dl Total Bilirubin (0.2-1) mg/dl AST (15-37) U/L ALT (12-78) U/L Alkaline Phosphatase (45-117) U/L Ammonia 27.5 (11-32) umol/L Troponin I (0-0.045) ng/ml Total Protein (6.4-8.2) gm/dl Albumin (3.4-5.0) gm/dl Globulin (2.5-4.0) gm/dl Albumin/Globulin Ratio (0.9-2) TSH (0.300-4.500) uIu/ml Administered Medications Discontinued Medications Albuterol (Ventolin 0.083% 2.5mg/3ml) 10 mg NEB NOW STA Stop: 03/03/20 14:26 Last Admin: 03/03/20 14:39 Dose: 10 mg Documented by: [id number] Dextrose (Dextrose 50%) 50 ml IV NOW ONE Stop: 03/03/20 14:26 Last Admin: 03/03/20 14:51 Dose: 50 ml Documented by: [id number] Sodium Chloride (Nss) 500 mls @ 999 mls/hr IV .Q31M SEE Stop: 03/03/20 13:15 Last Infusion: 03/03/20 13:38 Dose: 0 mls/hr Documented by: [id number] Admin: 03/03/20 12:56 Dose: 999 mls/hr Documented by: [id number] Calcium Chloride 1,000 mg/ (Sodium Chloride) 60 mls @ 240 mls/hr IV NOW STA Stop: 03/03/20 14:39 Last Infusion: 03/03/20 15:22 Dose: 0 mls/hr Documented by: [id number] Admin: 03/03/20 14:52 Dose: 240 mls/hr Documented by: [id number] Insulin Human Regular (Novolin R U-100 Per Unit) 10 units IV NOW STA Stop: 03/03/20 14:26 Last Admin: 03/03/20 14:52 Dose: 10 units Documented by: [id number] Cosigned by: [id number] Discharge Plan Visit Data Chief Complaint: Dizziness Stated Complaint: DIZZY ED Provider: Foreign Grayson Discharge Problem: Acute hyperkalemia, ESRD on dialysis, Dizziness Forms Stand Alone Forms: [facility] [place] [employer] Prescriptions Prescriptions: No Action isosorbide mononitrate 60 mg tablet extended release 24 hr 60 mg PO DAILY Qty: 30 RF: 5 sennosides [Senokot] 8.6 mg tablet 8.6 mg PO QPM PRN (Reason: Constipation) Qty: 30 RF: 0 citalopram 20 mg tablet 20 mg PO DAILY Qty: 30 RF: 5 losartan 25 mg tablet 25 mg PO DAILY RF: 0 Hold Instructions: due to syncope/presyncope famotidine 40 mg tablet 40 mg PO BID Qty: 180 RF: 3 hydrocortisone [Proctosol HC] 2.5 % cream with perineal applicator 1 appln IA DAILY PRN (Reason: itching) Qty: 28 RF: 0 Renal Caps 1 mg Capsule 1 cap PO QAM Qty: 30 RF: 0 docusate sodium [Stool Softener] 100 mg Capsule 100 mg PO BID Qty: 0 RF: 0 polyethylene glycol 3350 [Miralax] 17 gram powder in packet 17 gm PO DAILY Qty: 0 RF: 0 sevelamer HCl [Renagel] 800 mg tablet 800 mg PO AC RF: 0 nitroglycerin [Nitrostat] 0.4 mg tablet, sublingual 0.4 mg SL UD PRN (Reason: Chest Pain) RF: 0 atorvastatin [Lipitor] 80 mg tablet 80 mg PO DAILY RF: 0 amlodipine [Norvasc] 5 mg tablet 5 mg PO DAILY RF: 0 calcitriol [Rocaltrol] 0.25 mcg capsule 0.25 mcg PO MOWEFR RF: 0 levetiracetam [Keppra] 500 mg tablet 500 mg PO [id number] RF: 0 clopidogrel [Plavix] 75 mg tablet 75 mg PO DAILY RF: 0
[2020-03-03 13:47] LABS: Albumin Globulin Ratio 0.8 (0.9-2); Albumin Level 3.7 gm/dl (3.4-5.0); BUN Creatinine Ratio 14.4 (10-20); Bilirubin,Total 0.4 mg/dl (0.2-1); Calcium 10.3 mg/dl (8.5-10.1); Creatinine Clr Calc Pharmacy 10.8 ml/min; Est GFR (African American) 12.6; Est GFR (Non-African American) 10.8; Globulin 4.6 gm/dl (2.5-4.0); Magnesium 2.5 mg/dl (1.8-2.4); Potassium 6.3 mmol/L (3.5-5.1); Thyroid Stimulating Hormone 0.926 uIu/ml (0.300-4.500); Total Protein 8.3 gm/dl (6.4-8.2); Troponin I 0.045 ng/ml (0-0.045)
[2020-03-03] MEDS ORDERED: NovoLIN-R INSULIN PER UNIT CHARGE IV STA (14:25)
[2020-03-03] MEDS ORDERED: ALBUTEROL 0.083% NEBU SOLN 3 ML VIAL NEB STA (14:25)
[2020-03-03] MEDS ORDERED: CALCIUM CHLORIDE 10% 1,000 MG in SODIUM CHLORIDE 0.9% 50 ML IV STA (14:25)
[2020-03-03] MEDS ORDERED: DEXTROSE 50% 50 ML SYRINGE IV ONE (14:25)
--- NOTE | 2020-03-03 14:42 | History & Physical Report ---
Date of Service March 03, 2020 Assessment & Plan (1) Dizziness: (2) ESRD on hemodialysis: - admit to med surg - Consulted Nephro -discussed with Dr. Villagran, plan for HD session this afternoon for hyperkalemia not hypervolemia, last HD session was yesterday, possible that he is being dialyzed too much, may need to adjust dry weight readings, and hold losartan and amlodipine indefinitely. - Low K+ diet - Recheck BMP after dialysis completed - Cont sevelamer 800 mg PO AC (3) Hyperkalemia: -Potassium 6.3 on admission, given dextrose, calcium, insulin to help reverse this in the ER -HD this afternoon per nephrology as above - Recheck BMP this evening (4) History of CVA with residual deficit: -Right-sided residual deficits s/p left MCA ischemic stroke -Continue Plavix, controlling HTN/DM -A1c is 5.4 - goal per neuro: LDL <70, BP <135/85 -MRI Brain with large left-sided encephalomalacia with moderate to severe atrophy-could be the cause of some of his personality changes, but he is also been recently started on Keppra which can also contribute to changes in mood - Will check EEG now to r/o seizure, CT head negative for acute changes. - Check Keppra level (5) Congestive heart failure (CHF): -Chronic, diastolic -Fully dialysis dependent and would not benefit from a loop diuretic -Nephrology consulted as above (6) CAD (coronary artery disease): -History of such, continue metoprolol, Plavix, and atorvastatin, history of MA in early -With CABG (7) Hypertension: - Holding amlodipine, losartan, Imdur for hypotension -- similar presentation during previous admission - Check orthostatics -Continue metoprolol as noted above but lower the dose to 25 mg BID (8) Peripheral artery disease: -History of such secondary to above With history of iliofemoral bypass -Continue Plavix, statin (9) Second degree AV block, Mobitz type I: - Stable, continue metoprolol, imdur. 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 (14) Depression: - Noted, stable, cont keppra for now (15) Seizure disorder: -History of such -Was switched from Dilantin to Keppra 01/05/2020, continue on Keppra 500 mg p.o. MWFSun after dialysis sessions. -check Keppra level to ensure it is therapeutic today - possible that he needs a dosage adjustment - R eye deviation to the during attending visit, will check EEG, -No history of seizures for many years per neurology -Follow with neurology as an oupt (16) GERD (gastroesophageal reflux disease): - Was changed to famotidine 40 mg BID per PCP earlier this week for increased c/o heartburn, monitor. (17) DVT prophylaxis: - [place] CODE: DNR -discussed with , she would not want aggressive measures, interested in pursuing hospice on discharge Dispo: From home, likely to remain in the hospital x 1-2 days History of Present Illness Primary Care Provider: Erick Zapata MD Is a 74 yo M with PMHx of ESRD on hemodialysis MWF, hypertensive urgency, CHF, CAD, CVA involving left MCA on Plavix, left sided encephalomalacia with moderate to severe atrophy on most recent MRI, causing residual right-sided weakness and aphasia, chronic left ICA occlusion since 2010, epilepsy on Keppra, DM type II, depression and constipation. Patient has bee recently admitted twice: February 07- for hypertensive urgency and acute exacerbation of CHF, hypoxia and altered mental state. February 17- for vasovagal episode thought to be due to dehydration from too much fluid removal during dialysis. The patient is a very poor historian, secondary to encephalomalacia as described above. The patient was in to see Dr. Zapata for a routine checkup on Saturday and had been doing well since. At that time he had complained of some intermittent chest pain, discomfort, but was unable to provide specifics regarding how long it lasts, what makes it worse, and said that he would not even mention it to his therefore she would not give him any nitroglycerin tablets for symptoms. He did describe it more as heartburn, but is taking PPI. His called EMS because of episode of dizziness which started this morning, he was difficult to help get up out of the chair. She denies any falls today. Pt fell 1 week ago and EMS arrived to the house and helped to get him up,he did not present to the hospital at that time. She reports that every time he goes t o HD his BP drops, last session was yesterday, unable to tell me how much fluid was pulled off of him. At baseline he knows where he's at and knows his . His weakness is worsening. Uses a wheelchair at baseline. He also has had loose stools for past 2 days, no nausea or vomiting, fair appetite. Denies fever, chills or sweats. describes last time he was in the hospital she wanted to start hospice, but this had not yet been arranged for. We discussed his CODE STATUS, she would like us to treat reversible causes, but does not want aggressive measures, and would like palliative medicine to see him while he was here this time. Allergies Allergy/AdvReac Type Severity Reaction Status Date / Time adhesive Allergy Intermediate BLISTERING Verified 03/03/20 13:30 OF SKIN latex Allergy Mild Rash Verified 03/03/20 13:30 Home Medications Home Medications Medication Instructions Recorded Confirmed Type isosorbide mononitrate 60 mg 60 mg PO DAILY #30 tab 11/11/19 03/03/20 Rx tablet,extended release 24 hr Renal Caps 1 cap PO QAM #30 cap 11/20/19 03/03/20 Rx docusate sodium [Stool Softener] 100 mg PO BID #0 cap 11/26/19 03/03/20 Rx polyethylene glycol 3350 [Miralax] 17 gm PO DAILY #0 ea 12/04/19 03/03/20 Rx hydrocortisone 2.5 % topical cream 1 appln NJ DAILY PRN #28 gm 12/10/19 03/03/20 Rx with perineal applicator sennosides 8.6 mg tablet 8.6 mg PO QPM PRN #30 tab 12/31/19 03/03/20 Rx nitroglycerin [Nitrostat] 0.4 mg SL UD PRN 02/08/20 03/03/20 History sevelamer HCl [Renagel] 800 mg PO AC 02/08/20 03/03/20 History amlodipine [Norvasc] 5 mg PO DAILY 02/18/20 03/03/20 History atorvastatin [Lipitor] 80 mg PO DAILY 02/18/20 03/03/20 History calcitriol [Rocaltrol] 0.25 mcg PO MOWEFR 02/18/20 03/03/20 History clopidogrel [Plavix] 75 mg PO DAILY 02/18/20 03/03/20 History levetiracetam [Keppra] 500 mg PO SuMoWeFr@1600 02/18/20 03/03/20 History citalopram 20 mg tablet 20 mg PO DAILY #30 tab 02/29/20 03/03/20 Rx famotidine 40 mg tablet 40 mg PO BID #180 tab 03/01/20 03/03/20 Rx losartan 25 mg tablet 25 mg PO DAILY 03/01/20 03/03/20 History Past Med/Surg History Medical History Arteriosclerotic cardiovascular disease s/p CABG 2007 Benign prostatic hyperplasia Carotid artery stenosis s/p remote R & L endarterectomies with L re-occlusion sometime before 2010. Being monitored by [facility] neuro, on Plavix. Chronic kidney disease Congestive heart failure (CHF) Depression Diabetes mellitus, type 2 A1C 5.4% 11/2019. Not on any medication. Diabetic peripheral neuropathy Esophageal reflux Flash pulmonary edema 11/2019 Hemodialysis patient MON/SAT/SATURDAY [facility] 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 (1 YEAR AFTER MA) ?1989' Hyperlipidemia Hypertension Myocardial Infarction 1989? Seizure disorder Stable on Keppra, no seizure for "a long time." Follows with [facility] neurology. SNHL (sensorineural hearing loss) Surgical History History of aorto-femoral bypass History of bypass graft (non vein) Aortic-femoral or bifemoral History of carotid endarterectomy L 1998, R 2009 History of cataract surgery RT/LEFT History of colonoscopy History of esophagogastroduodenoscopy (EGD) History of tooth extraction History of vascular access device IJ FOR DIAYLSIS S/P CABG (coronary artery bypass graft) (2007) [facility] Family History Brother Hypertension Hypercholesteremia Sister Diabetes Unknown Hypertension Cardiac disorder Social History Preferred Language: [place] Communication Ability: Effective Visual Impairment: No Limitations 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: No Beliefs That Will Affect Care: None marital status: Current Living Situation: Spouse Current Living Situation Comment: in an apartment per Feels Safe at Home: Yes Smoking Status: Former smoker Tobacco Type: cigarettes ; Cigarettes Per Day: 30 ; Second Hand Exposure: No ; Hx Alcohol Use: No Hx Substance Use: No caffeine: No Seatbelt Use: always Review of Systems Review of Systems: Constitutional: No fever, sweats or chills Eyes: No diplopia, no worsening or blurred vision ENT: normal hearing, no trouble swallowing Respiratory: No cough, sputum, dyspnea at rest or on exertion Cardiovascular: No chest pain, tightness or palpitations Abdomen: No pain, nausea, vomiting, diarrhea or constipation Musculoskeletal: No joint pain, calf pain, swelling Neurologic: No weakness, numbness/tingling, or balance problems Psychiatric: No anxiety or depression Skin: No rash or itch Physical Exam Physical Exam: General: awake, alert, no apparent distress Head: Normocephalic, + resolving ecchymosis under bilateral orbits ENT: PERRL, EOMI, currently receiving nebulizer treatment, pharynx not examined, MMM Chest: Clear to auscultation, on nebulizer, no adventitious breath sounds Cardiac: Regular rate, Mobitz type I, no murmur, no JVD, normal peripheral pulses, good capillary refill Abdominal: NABS x 4 quadrants, soft, nondistended, nontender to palpation, no rebound, guarding or tenderness Extremities: Normal inspection, no peripheral edema or erythema, calfs nontender to palpation Psych: Normal mood and affect Neuro: AAO x 3, + poor historian, no gross motor deficits, speech is clear, no peripheral sensory deficits Skin: no rash or erythema Results & Data Results & Data ([facility]) Vital Signs (Past 12 Hours) Vital Signs Temp Pulse Resp BP Pulse Ox 03/03/20 14:00 55 L 20 94/49 L 98 03/03/20 13:00 58 L 14 95/46 L 03/03/20 12:52 63 18 96 03/03/20 12:30 62 15 101/51 L 96 03/03/20 12:07 63 22 83/54 L 97 03/03/20 12:01 36.9 C 63 18 87/51 L 96 Diagnostic Findings XR chest 1V portable HISTORY: 74 years-old Male weakness acute weakness COMPARISON: Chest radiograph 02/18/2020 TECHNIQUE: Portable AP view of the chest FINDINGS: Cardiac silhouette is upper limits of normal in size, unchanged. Prior median sternotomy. Unchanged positioning of the dual-lumen hemodialysis catheter, distal tip overlying the expected location of the inferior SVC. No pneumothorax, large pleural effusion, overt pulmonary edema or airspace consolidation typical for pneumonia. Degenerative changes of the shoulders and spine. IMPRESSION: No acute process. CT head/brain wo con CLINICAL HISTORY: 74 years-old Male with dizziness. Acute dizziness TECHNIQUE: Multiple axial CT images of the head were obtained without contrast. A dose lowering technique was utilized adhering to the principles of ALARA. CT DOSE: 614.27 mGy.cm COMPARISON: Head CT 02/08/2020. FINDINGS: No acute intracranial hemorrhage, midline shift, intracranial mass, hydrocephalus, territorial ischemia or abnormal extra-axial collection. Age- related involutional changes with ex vacuo ventriculomegaly. Encephalomalacia of the left frontal lobe from remote infarct redemonstrated. Patchy white matter hypodensities suggest chronic microvascular ischemic disease. Cerebral vascular calcifications. The calvarium is intact. Prior bilateral lens replacement. The paranasal sinuses, mastoid air cells, and middle ear cavities are clear. IMPRESSION: Chronic findings as above without acute intracranial abnormality. ECG Additional Comments: 03-MAR-2020 12:52:59 [facility]-EDSTAT ROUTINE RETRIEVAL Sinus bradycardia Inferior infarct , age undetermined ST & T wave abnormality, consider lateral ischemia Abnormal ECG When compared with ECG of 18-FEB-2020 10:28, Sinus rhythm is no longer with 2nd degree A-V block (Mobitz I) QRS axis Shifted right 25mm/s 10mm/mV 150Hz 9.0.9 12SL 241 ANA: 3 Referred by: REFERRED SELF Unconfirmed Vent. rate 59 BPM NJ interval 202 ms QRS duration 104 ms QT/QTc 434/429 ms P-R-T axes 34 -23 189 Code Status & VTE Plan Code Status DNR-discussed with over the phone Supervising Physician Co-Signing Physician Notes Attending Attestation and Admission Note: Pt seen/examined, chart reviewed, admission care plan d/w NAN Keen. I agree with the grande components of her documentation. 74yo male with NUMEROUS medical problems - ESRD on HD M/W/F, h/o large left- sided MCA territory stroke, seizure disorder, T2DM, PAD, etc - presented with dizziness to the ER today. Upon arrival BP was low; potassium noted to be high at 6.3. This is despite HD yesterday. I was unable to gather ANY meaningful history from the patient during my assessment. At one point he was pursing his lips and hyperventilating, then it appeared he was shivering. Multiple times his eyes were deviated to the right and he was staring. I asked multiple times if he was in pain and he could not answer me. PMH, PSH, allergies, meds, sochx, famhx - reviewed vitals - BPs low, afebrile gen - chronically ill-appearing, altered, aphasic, multiple episodes of eye deviation to the right mouth - MM dry neck - no JVD heart - RRR, s1 s2, 2/6 KIKI RUSB chest - HD catheter clean lungs - CTA b/l abd - soft ext - cool to touch, pulses 1+ b/l neuro - strength RUE and RLE near 5/5; LUE/LLE 5/5 labs wbc 12.2 recent keppra level noted to be low at 3 A/P: 1. dizziness - likely due to hypotension; hold BP meds 2. hyperkalemia - uncertain why K is high today given he just had HD yesterday; in light of hypotension and high K CONSIDER CHECKING CORTISOL LEVEL 3. altered MS, eye deviation to right - concerning for seizures, especially given his recent keppra level was subtherapeutic; obtain EEG, even if normal consider titration of keppra in light of witnessed symptoms today 4. ESRD on HD - [facility] nephrology consulted; midodrine with HD to prevent truman-HD hypotension? Agree with palliative care consultation Overall prognosis is quite poor in light of numerous comorbidities Jarrod Jones MD PG Care Time/CCT Total # of Minutes Spent Total Time Spent with Patient: Total time spent is greater than 50% in coordination of care (as documented) at patient's floor/unit and/or counseling patient: Coding Level of Care Code 27262 Initial Inpt Care Lvl 3 Diagnoses Dizziness R42 ESRD on hemodialysis N18.6; Z99.2 Hyperkalemia E87.5 History of CVA with residual deficit I69.30 Congestive heart failure (CHF) I50.9 CAD (coronary artery disease) I25.10 Associated angina: without angina Coronary Disease-Associated Artery/Lesion type: mcgrath artery [place] vs. 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 E11.319 Diabetes mellitus complication detail: with diabetic retinopathy Diabetes mellitus exterminator helper insulin use: without exterminator helper use Diabetes mellitus macular edema: macular edema presence unspecified Diabetic retinopathy severity: with unspecified retinopathy severity Laterality: unspecified laterality Anemia D64.9 Expressive aphasia R47.01 Depression F32.9 Depression Type: unspecified Seizure disorder G40.909 GERD (gastroesophageal reflux disease) K21.9 DVT prophylaxis Z29.9 (1) CAD (coronary artery disease) Associated angina: without angina Coronary Disease-Associated Artery/Lesion type: mcgrath artery Council vs. 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
[2020-03-03] MEDS: ALBUMIN 5% 250 ML IV SCH ×2 (17:00→18:33)
[2020-03-03] MEDS ORDERED: ALBUMIN 5% 250 ML IV SCH (17:00)
--- NOTE | 2020-03-03 17:14 | Electrocardiogram Report ---
Test Reason : Blood Pressure : / mmHG Vent. Rate : 059 BPM Atrial Rate : 059 BPM P-R Int : 202 ms QRS Dur : 104 ms QT Int : 434 ms P-R-T Axes : 034 -23 189 degrees QTc Int : 429 ms Sinus bradycardia Inferior infarct , age undetermined Abnormal ECG When compared with ECG of 18-FEB-2020 10:28, Sinus rhythm is no longer with 2nd degree A-V block (Mobitz I) QRS axis Shifted right Confirmed by Geo Acosta ([id number]) on 03/03/2020 5:13:53 PM Referred By: REFERRED SELF Confirmed By:Chon Acosta
--- NOTE | 2020-03-03 17:19 | Nephrology Consultation ---
Date of Consultation March 03, 2020 Assessment & Plan (1) Acute hyperkalemia: * Will provide HD tonight for 2 hours to correct hyperkalemia (2) ESRD on dialysis: * L BC AVF created 02/02. AVF + bruit * Will plan on HD tomorrow morning to maintain MWF outpatient schedule (3) Orthostasis: * Stop Amlodipine and Losartan * EDW recently reduced from 57 to 54 kg in the outpatient setting. May need to raise EDW at outpatient HD * Will order supine and standing BP & pulse for tomorrow am History of Present Illness Reason for Consultation: ESRD, hyperkalemia History of Present Illness Mr. Mata is a 74 year old white male who is seen at the request of Dr. Morrison to provide inpatient HD. Mr. Mata cannot provide any details of his medical history due to expressive aphasia. All medical information has been obtained from the EMR. Medical records were reviewed today and are summarized as follows: Mr. Mata has ESRD due to vascular disease. He dialyzes MWF at [facility] (3.5hr 3K 2.5Ca 1.0Mg F-180NR EDW 54kg). 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 Mr. Mata was last dialyzed yesterday without complication. This morning he was weak and c/o dizziness upon standing. In the ED SBP was in the 80's. 500 cc saline was administered and labs were drawn. Serum potassium was found to be 6.3. ECG revealed mild [place] prolongation. Admission was advised for hydration and urgent HD. Allergies Allergy/AdvReac Type Severity Reaction Status Date / Time adhesive Allergy Intermediate BLISTERING Verified 03/03/20 13:30 OF SKIN latex Allergy Mild Rash Verified 03/03/20 13:30 Home Medications Home Medications Medication Instructions Recorded Confirmed Type isosorbide mononitrate 60 mg 60 mg PO DAILY #30 tab 11/11/19 03/03/20 Rx tablet,extended release 24 hr Renal Caps 1 cap PO QAM #30 cap 11/20/19 03/03/20 Rx docusate sodium [Stool Softener] 100 mg PO BID #0 cap 11/26/19 03/03/20 Rx polyethylene glycol 3350 [Miralax] 17 gm PO DAILY #0 ea 12/04/19 03/03/20 Rx hydrocortisone 2.5 % topical cream 1 appln [place] DAILY PRN #28 gm 12/10/19 03/03/20 Rx with perineal applicator sennosides 8.6 mg tablet 8.6 mg PO QPM PRN #30 tab 12/31/19 03/03/20 Rx nitroglycerin [Nitrostat] 0.4 mg SL UD PRN 02/08/20 03/03/20 History sevelamer HCl [Renagel] 800 mg PO AC 02/08/20 03/03/20 History amlodipine [Norvasc] 5 mg PO DAILY 02/18/20 03/03/20 History atorvastatin [Lipitor] 80 mg PO DAILY 02/18/20 03/03/20 History calcitriol [Rocaltrol] 0.25 mcg PO MOWEFR 02/18/20 03/03/20 History clopidogrel [Plavix] 75 mg PO DAILY 02/18/20 03/03/20 History levetiracetam [Keppra] 500 mg PO SuMoWeFr@1600 02/18/20 03/03/20 History citalopram 20 mg tablet 20 mg PO DAILY #30 tab 02/29/20 03/03/20 Rx famotidine 40 mg tablet 40 mg PO BID #180 tab 03/01/20 03/03/20 Rx losartan 25 mg tablet 25 mg PO DAILY 03/01/20 03/03/20 History Patient History Medical History Arteriosclerotic cardiovascular disease s/p CABG 2007 Benign prostatic hyperplasia Carotid artery stenosis s/p remote R & L endarterectomies with L re-occlusion sometime before 2010. Being monitored by [facility] neuro, on Plavix. Chronic kidney disease Congestive heart failure (CHF) Depression Diabetes mellitus, type 2 A1C 5.4% 11/2019. Not on any medication. Diabetic peripheral neuropathy Esophageal reflux Flash pulmonary edema 11/2019 Hemodialysis patient MON/SAT/SATURDAY [facility] 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 (1 YEAR AFTER FL) ? Hyperlipidemia Hypertension Myocardial Infarction 1989? Seizure disorder Stable on Keppra, no seizure for "a long time." Follows with [facility] neurology. SNHL (sensorineural hearing loss) Surgical History History of aorto-femoral bypass History of bypass graft (non vein) Aortic-femoral or bifemoral History of carotid endarterectomy L 1998, R 2009 History of cataract surgery RT/LEFT History of colonoscopy History of esophagogastroduodenoscopy (EGD) History of tooth extraction History of vascular access device IJ FOR DIAYLSIS S/P CABG (coronary artery bypass graft) (2007) [facility] Family History Brother Hypertension Hypercholesteremia Sister Diabetes Unknown Hypertension Cardiac disorder Social History Preferred Language: [place]ian Communication Ability: Effective Visual Impairment: No Limitations Collar Tailor Required: No Beliefs That Will Affect Care: None marital status: Current Living Situation: Spouse Current Living Situation Comment: in an apartment per Feels Safe at Home: Yes Smoking Status: Former smoker Tobacco Type: cigarettes ; Cigarettes Per Day: 30 ; Second Hand Exposure: No ; Hx Alcohol Use: No Hx Substance Use: No caffeine: No Seatbelt Use: always Review of Systems Review of Systems: Unobtainable due to cognitive status Physical Exam Constitutional: + frail appearing; not in distress Eyes: PERRL Neck: trachea midline, no thyromegaly Respiratory: no respiratory distress Cardiovascular: Rate/Rhythm: regular rate and regular rhythm Extremities: no edema Gastrointestinal (Abdomen): Percussion/Palpation: abdomen soft; abdomen nontender Neurologic: Speech / Cognition: + expressive aphasia Results & Data Vital Signs (Past 12 Hours) Vital Signs Temp Pulse Pulse Resp BP Pulse Ox 03/03/20 15:50 101 H 24 140/80 96 03/03/20 15:30 101 H 24 140/80 96 03/03/20 15:20 89 14 138/68 96 03/03/20 14:41 58 L 16 99 03/03/20 14:31 58 L 17 129/60 96 03/03/20 14:00 55 L 20 94/49 L 98 03/03/20 13:00 58 L 14 95/46 L 03/03/20 12:52 63 18 96 03/03/20 12:30 62 15 101/51 L 96 03/03/20 12:07 63 22 83/54 L 97 03/03/20 12:01 36.9 C 63 18 87/51 L 96 Laboratory Results Laboratory Results - last 24 hr 03/03/20 03/03/20 03/03/20 12:54 12:54 12:54 WBC 12.20 H RBC 3.96 L Hgb 12.0 L Hct 39.5 L MCV 99.7 MCH 30.3 MCHC 30.4 L RDW Std Deviation 62.3 H RDW Coeff of Shayy 17.1 H Plt Count 269 MPV 10.2 Immature Gran % (Auto) 1.1 Neut % (Auto) 53.5 Lymph % (Auto) 28.8 Morris % (Auto) 12.2 Eos % (Auto) 3.7 Baso % (Auto) 0.7 Immature Gran # (Auto) 0.14 H Neut # (Auto) 6.53 H Lymph # (Auto) 3.51 H Morris # (Auto) 1.49 H Eos # (Auto) 0.45 Baso # (Auto) 0.08 PT 10.8 INR 1.0 Sodium 137 Potassium 6.3 H* Chloride 100 Carbon Dioxide 31 Anion Gap 6.0 BUN 69 H Creatinine 4.89 H* Est Cr Clr Drug Dosing 10.8 Est GFR ( Amer) 12.6 Est GFR (Non-Af Amer) 10.8 BUN/Creatinine Ratio 14.4 Glucose 136 H POC Glucose Calcium 10.3 H Magnesium 2.5 H Total Bilirubin 0.4 AST 15 ALT 25 Alkaline Phosphatase 70 Ammonia Troponin I 0.045 Total Protein 8.3 H Albumin 3.7 Globulin 4.6 H Albumin/Globulin Ratio 0.8 L TSH 0.926 03/03/20 03/03/20 12:54 15:35 WBC RBC Hgb Hct MCV MCH MCHC RDW Std Deviation RDW Coeff of Shayy Plt Count MPV Immature Gran % (Auto) Neut % (Auto) Lymph % (Auto) Morris % (Auto) Eos % (Auto) Baso % (Auto) Immature Gran # (Auto) Neut # (Auto) Lymph # (Auto) Morris # (Auto) Eos # (Auto) Baso # (Auto) PT INR Sodium Potassium Chloride Carbon Dioxide Anion Gap BUN Creatinine Est Cr Clr Drug Dosing Est GFR ( Amer) Est GFR (Non-Af Amer) BUN/Creatinine Ratio Glucose POC Glucose 184 H Calcium Magnesium Total Bilirubin AST ALT Alkaline Phosphatase Ammonia 27.5 Troponin I Total Protein Albumin Globulin Albumin/Globulin Ratio TSH PG Care Time/CCT Total # of Minutes Spent Total Time Spent with Patient: Total time spent is greater than 50% in coordination of care (as documented) at patient's floor/unit and/or counseling patient: Coding Level of Care Code 32898 Inpt Consult Level 5 Diagnoses Acute hyperkalemia E87.5 ESRD on dialysis N18.6; Z99.2 Orthostasis I95.1
--- NOTE | 2020-03-03 17:46 | Dialysis Progress Note ---
Date of Service March 03, 2020 Assessment & Plan (1) ESRD on dialysis: * Hypotensive while on HD. Patient is asymptomatic. 1500 cc saline given. Uf set to zero. SBP now ~ 110 mmHg * Will administer 25g SPA IV x 1 * L BC AVF created 02/02. AVF + bruit * Will plan on HD tomorrow morning to maintain MWF outpatient schedule Subjective Mr. Mata was seen & examined while on HD Review of Systems Review of Systems: Unobtainable due to cognitive status Physical Exam Constitutional: + frail appearing; not in distress Eyes: PERRL Neck: trachea midline, no thyromegaly Respiratory: no respiratory distress Cardiovascular: Rate/Rhythm: regular rate and regular rhythm Extremities: no edema Gastrointestinal (Abdomen): Percussion/Palpation: abdomen soft; abdomen nontender Neurologic: Speech / Cognition: + expressive aphasia Results & Data ([facility]) Vital Signs (Past 12 Hours) Vital Signs Temp Pulse Pulse Resp BP Pulse Ox 03/03/20 15:50 101 H 24 140/80 96 03/03/20 15:30 101 H 24 140/80 96 03/03/20 15:20 89 14 138/68 96 03/03/20 14:41 58 L 16 99 03/03/20 14:31 58 L 17 129/60 96 03/03/20 14:00 55 L 20 94/49 L 98 03/03/20 13:00 58 L 14 95/46 L 03/03/20 12:52 63 18 96 03/03/20 12:30 62 15 101/51 L 96 03/03/20 12:07 63 22 83/54 L 97 03/03/20 12:01 36.9 C 63 18 87/51 L 96 [facility] Procedure Codes (Charges) Renal/Urologic Renal/Urologic: 50218 Hemodialysis, One Evaluation Coding Level of Care Code None Diagnoses ESRD on dialysis N18.6; Z99.2 CPT Codes Renal/Urologic - Renal/Urologic: 79150 Hemodialysis, One Evaluation ([id number])
[2020-03-03] MEDS ORDERED: SENNA 8.6 MG TAB PO PRN (18:49)
[2020-03-03] MEDS ORDERED: NITROGLYCERIN SL 0.4 MG/TAB TAB SL PRN (18:49)
[2020-03-03] MEDS ORDERED: HYDROCORTISONE HC 2.5% CRM 30GM TUBE EXT PRN (18:49)
[2020-03-03] MEDS ORDERED: ONDANSETRON INJ 2 MG/ML 2 ML VIAL IV PRN (18:49)
[2020-03-03] MEDS ORDERED: ACETAMINOPHEN 325 MG TAB PO PRN (18:49)
[2020-03-03 19:28] LABS: BUN Creatinine Ratio 9.7 (10-20); Calcium 8.6 mg/dl (8.5-10.1); Creatinine Clr Calc Pharmacy 19.3 ml/min; Est GFR (African American) 25.5; Potassium 4.6 mmol/L (3.5-5.1)
[2020-03-03 19:46] LABS: Hepatitis B Surface Ab Quant 467.72 mIU/mL (>or=10mIU/mL Immune); Hepatitis B Surface Antibody Immune
[2020-03-03 19:57] LABS: Hepatitis B Surface Antigen Neg (Neg)
[2020-03-03] MEDS: HEPARIN SOD 5,000 UNIT/0.5 ML VIAL SQ SCH (20:23)
[2020-03-03] MEDS: SEVELAMER HCL 800 MG TABLET PO SCH (20:23)
[2020-03-03] MEDS: FAMOTIDINE 40 MG TABLET PO SCH (20:23)
[2020-03-03] MEDS: DOCUSATE SODIUM 100 MG CAP PO SCH (20:23)
[2020-03-04] MEDS: HEPARIN SOD 5,000 UNIT/0.5 ML VIAL SQ SCH ×3 (05:31→21:08)
[2020-03-04 06:00] LABS: Hematocrit (blood only) 34.3 % (42-52); Hemoglobin 10.7 g/dL (14.0-18.0); Mean Corpuscular Hemoglobin 30.7 pg (25-34); Mean Corpuscular Hgb Conc 31.2 g/dL (32-36); Mean Corpuscular Volume 98.3 fL (80-100); Mean Platelet Volume 10.5 fL (7.4-10.4); Platelet Count 202 K/uL (130-400); RDW Coefficient of Variation 17.5 % (11.5-14.5); RDW Standard Deviation 63.2 fL (36.4-46.3); Red Blood Count 3.49 M/uL (4.7-6.1); White Blood Count 11.52 K/uL (4.8-10.8)
[2020-03-04 06:42] LABS: Albumin Globulin Ratio 0.8 (0.9-2); Albumin Level 3.2 gm/dl (3.4-5.0); BUN Creatinine Ratio 9.2 (10-20); Bilirubin,Total 0.4 mg/dl (0.2-1); Creatinine Clr Calc Pharmacy 13.9 ml/min; Est GFR (African American) 17.1; Est GFR (Non-African American) 14.8; Globulin 4.1 gm/dl (2.5-4.0); Magnesium 1.9 mg/dl (1.8-2.4); Phosphorus 3.6 mg/dl (2.5-4.9); Potassium 5.6 mmol/L (3.5-5.1); Total Protein 7.3 gm/dl (6.4-8.2)
[2020-03-04] MEDS ORDERED: SODIUM CHLORIDE 0.9% 1000ML 1,000 ML IV PRN (07:00)
--- NOTE | 2020-03-04 07:27 | Electroencephalogram ---
EEG Procedure Note Date of Service March 04, 2020 Start / End Times Start Time: 0600 End Time: 619 Referring Physician Rain Keen PA-C History 74-year-old with history of seizure disorder admitted with new onset dizziness, question seizure Home Medication List Home Medications Medication Instructions Recorded Confirmed Type isosorbide mononitrate 60 mg 60 mg PO DAILY #30 tab 11/11/19 03/03/20 Rx tablet,extended release 24 hr Renal Caps 1 cap PO QAM #30 cap 11/20/19 03/03/20 Rx docusate sodium [Stool Softener] 100 mg PO BID #0 cap 11/26/19 03/03/20 Rx polyethylene glycol 3350 [Miralax] 17 gm PO DAILY #0 ea 12/04/19 03/03/20 Rx hydrocortisone 2.5 % topical cream 1 appln [place] DAILY PRN #28 gm 12/10/19 03/03/20 Rx with perineal applicator sennosides 8.6 mg tablet 8.6 mg PO QPM PRN #30 tab 12/31/19 03/03/20 Rx nitroglycerin [Nitrostat] 0.4 mg SL UD PRN 02/08/20 03/03/20 History sevelamer HCl [Renagel] 800 mg PO AC 02/08/20 03/03/20 History amlodipine [Norvasc] 5 mg PO DAILY 02/18/20 03/03/20 History atorvastatin [Lipitor] 80 mg PO DAILY 02/18/20 03/03/20 History calcitriol [Rocaltrol] 0.25 mcg PO MOWEFR 02/18/20 03/03/20 History clopidogrel [Plavix] 75 mg PO DAILY 02/18/20 03/03/20 History levetiracetam [Keppra] 500 mg PO SuMoWeFr@1600 02/18/20 03/03/20 History citalopram 20 mg tablet 20 mg PO DAILY #30 tab 02/29/20 03/03/20 Rx famotidine 40 mg tablet 40 mg PO BID #180 tab 03/01/20 03/03/20 Rx losartan 25 mg tablet 25 mg PO DAILY 03/01/20 03/03/20 History Inpatient Medication List Docusate Sodium (Colace) 100 mg PO BID SEE Stop: 04/02/20 20:59 Last Admin: 03/03/20 20:23 Dose: 100 mg Documented by: [id number] Famotidine (Pepcid) 40 mg PO BID SEE Stop: 04/02/20 20:59 Last Admin: 03/03/20 20:23 Dose: 40 mg Documented by: [id number] Heparin Sodium (Porcine) (Heparin Sodium (Porcine)) 5,000 units SQ Q8 SEE Stop: 04/02/20 21:59 Last Admin: 03/04/20 05:31 Dose: 5,000 units Documented by: [id number] Cosigned by: [id number] Admin: 03/03/20 20:23 Dose: 5,000 units Documented by: [id number] Cosigned by: [id number] Sevelamer HCl (Renagel) 800 mg PO AC SEE Stop: 04/02/20 18:48 Last Admin: 03/03/20 20:23 Dose: 800 mg Documented by: [id number] Discontinued Medications Albuterol (Ventolin 0.083% 2.5mg/3ml) 10 mg NEB NOW STA Stop: 03/03/20 14:26 Last Admin: 03/03/20 14:39 Dose: 10 mg Documented by: [id number] Dextrose (Dextrose 50%) 50 ml IV NOW ONE Stop: 03/03/20 14:26 Last Admin: 03/03/20 14:51 Dose: 50 ml Documented by: [id number] Sodium Chloride (Nss) 500 mls @ 999 mls/hr IV .Q31M SEE Stop: 03/03/20 13:15 Last Infusion: 03/03/20 13:38 Dose: 0 mls/hr Documented by: [id number] Admin: 03/03/20 12:56 Dose: 999 mls/hr Documented by: [id number] Calcium Chloride 1,000 mg/ (Sodium Chloride) 60 mls @ 240 mls/hr IV NOW STA Stop: 03/03/20 14:39 Last Infusion: 03/03/20 15:22 Dose: 0 mls/hr Documented by: [id number] Admin: 03/03/20 14:52 Dose: 240 mls/hr Documented by: [id number] Albumin Human (Albumin 5%) 250 mls @ 500 mls/hr IV Q1H SEE Stop: 03/03/20 18:29 Last Infusion: 03/03/20 19:15 Dose: 0 mls/hr Documented by: [id number] Admin: 03/03/20 18:33 Dose: Not Given Documented by: [id number] Admin: 03/03/20 17:00 Dose: 500 mls/hr Documented by: [id number] Insulin Human Regular (Novolin R U-100 Per Unit) 10 units IV NOW STA Stop: 03/03/20 14:26 Last Admin: 03/03/20 14:52 Dose: 10 units Documented by: [id number] Cosigned by: [id number] Description This is a 21 electrode EEG with a single channel dedicated to limited EKG. The electrodes were placed in accordance with the International 10-20 system. Interpretation The predominant background activity consists of a somewhat irregular 7.5 Hz activity, of up to 50 mV in amplitude,seen symmetrically distributed over the posterior head regions bilaterally, spreading anteriorly diffusely bilaterally. This activity attenuates some with eye-opening and other alerting procedures. Photic stimulation was performed and elicited no change in the background activity and no abnormal responses were seen. Hyperventilation was not performed. A mild amount of muscle and eye blink movement artifact activity contaminated the recording hindering interpretation from time to time particularly in the frontotemporal head regions but not to any significant degree overall. Patient at times would have his eyes open during the recording. Throughout the recording, no focal abnormalities or potentially epileptogenic discharges are seen. The patient did not enter drowsiness or sleep. In summary, this EEG was mildly abnormal during wakefulness as noted by some very mild generalized slowing. No focal abnormalities or potentially epileptogenic discharges were seen. Clinical Correlation The abscence of potentially epileptogenic activity does not exclude a seizure disorder, since interictally, EEGs can be normal. Clinical correlation is required. The very mild generalized slowing is nonspecific and although may represent a very mild encephalopathy (which could be due to a wide variety of causes) this could be seen in someone with no apparent mental status deficit. [facility] Procedure Codes Indication for Procedure (1) Seizure disorder: (2) Altered mental state: Neurology Neurology: 02222 EEG include record awake & drowsy
[2020-03-04] MEDS ORDERED: HEPARIN SOD (PORCINE) 1000 UNIT/ML 10 ML VIAL IV SCH (08:00)
[2020-03-04] MEDS: POLYETHYLENE (MIRALAX) 17 GM PACK PO SCH (08:39)
[2020-03-04] MEDS: SEVELAMER HCL 800 MG TABLET PO SCH ×3 (08:39→18:38)
[2020-03-04] MEDS: DOCUSATE SODIUM 100 MG CAP PO SCH ×2 (08:40→20:48)
[2020-03-04] MEDS: CITALOPRAM 20 MG TAB PO SCH (08:40)
[2020-03-04] MEDS: ATORVASTATIN 40 MG TAB PO SCH (08:40)
[2020-03-04] MEDS: CLOPIDOGREL BISULFATE 75 MG TAB PO SCH (08:41)
[2020-03-04] MEDS: FAMOTIDINE 40 MG TABLET PO SCH ×2 (08:42→20:48)
[2020-03-04] MEDS ORDERED: CALCITRIOL 0.25 MCG CAPSULE PO SCH (09:00)
[2020-03-04] MEDS ORDERED: ENOXAPARIN INJ 40 MG/0.4 ML SYR SQ SCH (09:00)
[2020-03-04] MEDS: NEPHROCAPS PO SCH (09:11)
--- NOTE | 2020-03-04 09:40 | Nephrology Progress Note ---
Date of Service March 04, 2020 Assessment & Plan (1) ESRD on dialysis: * Will provide HD today to correct hyperkalemia and resume outpatient MWF schedule. No UF. * Outpatient HD - MWF [facility] Dr. Hans Liu 3.5hr 2K 2Ca 1.0Mg F-180NR. (2) Orthostasis: * Stop Amlodipine and Losartan * Outpatient EDW was 54 kg. Will ask dialysis unit to reassess. Current hospital weight is 57 kg and patient appears euvolemic * Orthostatic vital signs reordered this am - await results Admission and Anticipated Discharge Date Admission Date: March 03, 2020 Subjective Mr. Mata was seen & examined in his hospital room this morning. He was oriented to self but not place or month. He denied angina or dyspnea and voiced no medical concerns. Orthostatic vital signs have not yet been completed. EEG completed yesterday - No focal abnormalities or potentially epileptogenic discharges were seen. Review of Systems Respiratory: no dyspnea Cardiovascular: no chest pain Gastrointestinal: no abdominal pain, no nausea and no vomiting Physical Exam Constitutional: + frail appearing; not in distress Eyes: PERRL, conjunctivae normal, anicteric sclerae ENMT: external ear and nose normal, oropharynx normal Neck: trachea midline, no thyromegaly Respiratory: normal respiratory effort, lungs clear to auscultation no respiratory distress Cardiovascular: Rate/Rhythm: regular rate and regular rhythm Extremities: no edema Gastrointestinal (Abdomen): Percussion/Palpation: abdomen soft; abdomen nontender Skin: no rashes, warm and dry Neurologic: awake Speech / Cognition: + expressive aphasia Results & Data ([facility]) Vital Signs (Past 12 Hours) Vital Signs Temp Pulse Resp BP BP Pulse Ox 03/04/20 07:26 36.6 C 57 L 22 134/71 94 03/03/20 23:32 37.3 C 86 18 116/70 96 Laboratory Results Laboratory Tests 03/04/20 03/04/20 05:35 05:35 WBC 11.52 H Hgb 10.7 L Hct 34.3 L Plt Count 202 Sodium 139 Potassium 5.6 H D Chloride 104 Carbon Dioxide 25 BUN 35 H Creatinine 3.78 H D Glucose 100 H PG Care Time/CCT Total # of Minutes Spent Total Time Spent with Patient: Total time spent is greater than 50% in coordination of care (as documented) at patient's floor/unit and/or counseling patient: Coding Level of Care Code 94928 Subseq Hosp Care Lvl 3 Diagnoses ESRD on dialysis N18.6; Z99.2 Orthostasis I95.1
--- NOTE | 2020-03-04 13:49 | Palliative Care Consultation ---
Date of Consultation March 04, 2020 Assessment & Plan (1) Palliative care encounter: Briefly patient is a 70-year-old male with a history of CVA with residual right-sided weakness and expressive aphasia, end-stage renal disease on HD, diabetes, CAD, seizure disorder and renal artery stenosis who presented to [facility] on 03/03 with dizziness and increased weakness. Patient was found to be dehydrated-he received IV fluids with some improvement. Patient seen and examined-sitting on the side of bed eating lunch, no acute distress. Patient is oriented to person and place, he gave the year as 1973, he was unable to tell me why he was in the hospital. Attempted to reach his , Princess, , left a voice message X 2. Will attempt to call her again. - Collaborated with attending physician and case management. Per case management, who spoke to the earlier this morning, she is looking for increased help at home, not interested in stopping dialysis. - - Case management made a referral to the office of aging. was also not interested in rehab, wants to have patient at home. Patient did have a fall approximately 6 weeks ago-still has periorbital bruising. Patient unable to have a discussion regarding goals of care due to significant cognitive deficits, his current CODE STATUS is DNR. (2) Orthostasis: Improved with placing losartan and amlodipine on hold (3) ESRD on dialysis: wishes to continue HD. Hospice would not be appropriate at this time. If at some point patient's was no longer able to take him to dialysis and she is in agreement to stopping dialysis then a hospice referral would be appropriate. Patient with oliguria. (4) Altered mental state: Suspect underlying cognitive deficits after stroke, worsened by hypotension Altered mental status type: delirium Qualified Code(s): R41.0 - Disorientation, unspecified (5) Cerebral artery occlusion with cerebral infarction: Residual mild right-sided weakness (6) Seizure disorder: Currently on Keppra, Keppra level on 02/17 was low, no recent seizure activity. Keppra level pending from yesterday. History of Present Illness Reason for Consultation: Address goals of care Requesting Physician: Dr. Pacheco Attending Physician: Luis Enrique Pacheco History of Present Illness Briefly patient is a 70-year-old male with a history of CVA with residual right- sided weakness and expressive aphasia, end-stage renal disease on HD, diabetes, CAD, seizure disorder and renal artery stenosis who presented to the [facility] on 03/03 with dizziness and increased weakness. Patient was found to be dehydrated-he received IV fluids with some improvement. Patient seen and examined-sitting on the side of bed eating lunch, no acute distress. Patient is oriented to person and place, he gave the year as 1973, he was unable to tell me why he was in the hospital. Attempted to reach his , Princess, , left a voice message. Will attempt to call her again. Collaborated with attending physician and case management. Per case management, who spoke to the earlier this morning, she is looking for increased help at home, not interested in stopping dialysis. Case management made a referral to the office of aging. was also not interested in rehab, wants to have patient at home. Patient did have a fall approximately 6 weeks ago-still has periorbital bruising. Patient unable to have a discussion regarding goals of care due to significant cognitive deficits, his current CODE STATUS is DNR. Allergies Allergy/AdvReac Type Severity Reaction Status Date / Time adhesive Allergy Intermediate BLISTERING Verified 03/03/20 13:30 OF SKIN latex Allergy Mild Rash Verified 03/03/20 13:30 Home Medications Home Medications Medication Instructions Recorded Confirmed Type isosorbide mononitrate 60 mg 60 mg PO DAILY #30 tab 11/11/19 03/03/20 Rx tablet,extended release 24 hr Renal Caps 1 cap PO QAM #30 cap 11/20/19 03/03/20 Rx docusate sodium [Stool Softener] 100 mg PO BID #0 cap 11/26/19 03/03/20 Rx polyethylene glycol 3350 [Miralax] 17 gm PO DAILY #0 ea 12/04/19 03/03/20 Rx hydrocortisone 2.5 % topical cream 1 appln WI DAILY PRN #28 gm 12/10/19 03/03/20 Rx with perineal applicator sennosides 8.6 mg tablet 8.6 mg PO QPM PRN #30 tab 12/31/19 03/03/20 Rx nitroglycerin [Nitrostat] 0.4 mg SL UD PRN 02/08/20 03/03/20 History sevelamer HCl [Renagel] 800 mg PO AC 02/08/20 03/03/20 History amlodipine [Norvasc] 5 mg PO DAILY 02/18/20 03/03/20 History atorvastatin [Lipitor] 80 mg PO DAILY 02/18/20 03/03/20 History calcitriol [Rocaltrol] 0.25 mcg PO MOWEFR 02/18/20 03/03/20 History clopidogrel [Plavix] 75 mg PO DAILY 02/18/20 03/03/20 History levetiracetam [Keppra] 500 mg PO [id number]@1600 02/18/20 03/03/20 History citalopram 20 mg tablet 20 mg PO DAILY #30 tab 02/29/20 03/03/20 Rx famotidine 40 mg tablet 40 mg PO BID #180 tab 03/01/20 03/03/20 Rx losartan 25 mg tablet 25 mg PO DAILY 03/01/20 03/03/20 History Patient History Medical History Arteriosclerotic cardiovascular disease s/p CABG 2007 Benign prostatic hyperplasia Carotid artery stenosis s/p remote R & L endarterectomies with L re-occlusion sometime before 2010. Being monitored by [facility] neuro, on Plavix. Chronic kidney disease Congestive heart failure (CHF) Depression Diabetes mellitus, type 2 A1C 5.4% 11/2019. Not on any medication. Diabetic peripheral neuropathy Esophageal reflux Flash pulmonary edema 11/2019 Hemodialysis patient MON/SAT/SATURDAY [facility] 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 (1 YEAR AFTER [place]) ?1989' Hyperlipidemia Hypertension Myocardial Infarction 1989? Seizure disorder Stable on Keppra, no seizure for "a long time." Follows with [facility] neurology. SNHL (sensorineural hearing loss) Surgical History History of aorto-femoral bypass History of bypass graft (non vein) Aortic-femoral or bifemoral History of carotid endarterectomy L 1998, R 2009 History of cataract surgery RT/LEFT History of colonoscopy History of esophagogastroduodenoscopy (EGD) History of tooth extraction History of vascular access device IJ FOR DIAYLSIS S/P CABG (coronary artery bypass graft) (2007) [facility] Family History Brother Hypertension Hypercholesteremia Sister Diabetes Unknown Hypertension Cardiac disorder Social History Preferred Language: [place]ian Communication Ability: Effective Visual Impairment: No Limitations Vascular Manager Required: No Beliefs That Will Affect Care: None marital status: Current Living Situation: Spouse Current Living Situation Comment: in an apartment per Feels Safe at Home: Yes Smoking Status: Former smoker Tobacco Type: cigarettes ; Cigarettes Per Day: 30 ; Second Hand Exposure: No ; Hx Alcohol Use: No Hx Substance Use: No caffeine: No Seatbelt Use: always Review of Systems Review of Systems: ROS with limited reliability due to dementia, patient denies fever, chills, chest pain, shortness of breath, or abdominal pain. He did not require any PRN Tylenol overnight for pain or discomfort. Physical Exam Physical Exam: PE: Patient awake and alert, no acute distress. HEENT: EOMI, mild [place] Respirations: Unlabored, clear breath sounds CV: Regular rate, no lower extremity edema Abdomen: Soft, nontender Neuro: Alert and oriented to person and place only. Results & Data Vital Signs (Past 12 Hours) Vital Signs Temp Pulse Resp BP Pulse Ox 03/04/20 07:26 97.9 F 57 L 22 134/71 94 PG Care Time/CCT Total # of Minutes Spent Total Time Spent with Patient: Total time spent 55 minutes with greater than 50% of the time at bedside assessing patient's current status as well as attempting to contact family regarding goals of care. Collaborated with attending physician as well as case management Coding Level of Care Code 38914 Inpt Consult Level 2 Diagnoses Palliative care encounter Z51.5 Orthostasis I95.1 ESRD on dialysis N18.6; Z99.2 Altered mental state R41.0 Altered mental status type: delirium Cerebral artery occlusion with cerebral infarction Seizure disorder G40.909 Time Spent (min) 55
[2020-03-04] MEDS: levETIRAcetam 500 MG TAB PO SCH (18:38)
[2020-03-04] MEDS ORDERED: SODIUM CHLORIDE 0.9% 1000ML 500 ML IV ONE (20:28)
[2020-03-04 21:13] LABS: BUN Creatinine Ratio 6.4 (10-20); Creatinine Clr Calc Pharmacy 23.2 ml/min; Est GFR (African American) 31.9; Est GFR (Non-African American) 27.5; Potassium 4.3 mmol/L (3.5-5.1)
--- NOTE | 2020-03-04 22:53 | Hospitalist Progress Note ---
Date of Service March 04, 2020 Assessment & Plan (1) Dizziness: Dizzinees appears to have improved. (2) ESRD on hemodialysis: - admit to med surg -Patient had another episode of dialysis today. He tolerated it. - Consulted Nephro - Low K+ diet - Recheck BMP after dialysis completed - Cont sevelamer 800 mg PO AC (3) Hyperkalemia: -Potassium 6.3 on admission, given dextrose, calcium, insulin to help reverse this in the ER -potassium improved after dialyssi (4) History of CVA with residual deficit: -Right-sided residual deficits s/p left MCA ischemic stroke -Continue Plavix, controlling HTN/DM -A1c is 5.4 - goal per neuro: LDL <70, BP <135/85 -MRI Brain with large left-sided encephalomalacia with moderate to severe atrophy-could be the cause of some of his personality changes, but he is also been recently started on Keppra which can also contribute to changes in mood - Will check EEG now to r/o seizure, CT head negative for acute changes. (5) Congestive heart failure (CHF): -Chronic, diastolic -Fully dialysis dependent and would not benefit from a loop diuretic -Nephrology consulted as above (6) CAD (coronary artery disease): -History of such, continue metoprolol, Plavix, and atorvastatin, history of CO in early -With CABG (7) Hypertension: - Holding amlodipine, losartan, Imdur for hypotension -- similar presentation during previous admission - Check orthostatics -Continue metoprolol as noted above but lower the dose to 25 mg BID (8) Peripheral artery disease: -History of such secondary to above With history of iliofemoral bypass -Continue Plavix, statin (9) Second degree AV block, Mobitz type I: - Stable, continue metoprolol, imdur. 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 (14) Depression: - Noted, stable, cont keppra for now (15) Seizure disorder: -History of such -Was switched from Dilantin to Keppra 01/05/2020, continue on Keppra 500 mg p.o. MWFSun after dialysis sessions. -check Keppra level to ensure it is therapeutic today - possible that he needs a dosage adjustment - R eye deviation to the during attending visit, will check EEG, -No history of seizures for many years per neurology -Follow with neurology as an oupt (16) GERD (gastroesophageal reflux disease): - Was changed to famotidine 40 mg BID per PCP earlier this week for increased c/o heartburn, monitor. (17) DVT prophylaxis: - tedpoly lovsongox CODE: DNR - (18) Hypoxia: Patient has had hypoxia in the past. But has improved with dialysis Unsure as the cause at this time as patient appears euvolemic. Patient has history of tobacco abuse. Perhaps he has underlying COPD. Admission and Anticipated Discharge Date Admission Date: March 03, 2020 Subjective Patient reports feeling well. He has no new complaints. Review of Systems Review of Systems: All systems reviewed & are unremarkable except as noted in HPI & below Physical Exam Physical Exam: General: awake, alert, no apparent distress Head: Normocephalic, + resolving ecchymosis under bilateral orbits ENT: PERRL, EOMI, MMM Chest: Clear to auscultation, on nebulizer, no adventitious breath sounds Cardiac: Regular rate, Mobitz type I, no murmur, no JVD, normal peripheral pulses, good capillary refill Abdominal: NABS x 4 quadrants, soft, nondistended, nontender to palpation, no rebound, guarding or tenderness Extremities: Normal inspection, no peripheral edema or erythema, calfs nontender to palpation Psych: Normal mood and affect Neuro: AA, + poor historian, no gross motor deficits, speech is clear, no peripheral sensory deficits Skin: no rash or erythema Results & Data Results & Data ([facility]) Vital Signs (Past 12 Hours) Vital Signs Temp Pulse Pulse Pulse Resp BP BP 03/04/20 22:02 37.4 C 115 H 20 130/71 03/04/20 20:23 90 20 03/04/20 20:15 162 H 24 03/04/20 20:00 177 H 26 H 06/19/20 18:40 37.3 C 82 18 03/04/20 18:21 37.1 C 70 03/04/20 18:02 59 L 131/68 03/04/20 17:40 83 127/63 03/04/20 17:20 82 116/66 03/04/20 17:00 55 L 117/65 03/04/20 16:40 66 102/66 03/04/20 16:20 83 127/72 03/04/20 16:00 68 121/68 03/04/20 15:40 76 119/71 03/04/20 15:20 75 137/72 03/04/20 15:02 75 137/72 03/04/20 14:50 37.1 C 77 BP Pulse Ox 03/04/20 22:02 90 03/04/20 20:23 96 03/04/20 20:15 115/56 L 88 L 03/04/20 20:00 77 L 03/04/20 18:40 124/71 95 03/04/20 18:21 141/74 H 03/04/20 18:02 03/04/20 17:40 03/04/20 17:20 03/04/20 17:00 03/04/20 16:40 03/04/20 16:20 03/04/20 16:00 03/04/20 15:40 03/04/20 15:20 03/04/20 15:02 03/04/20 14:50 PG Care Time/CCT Total # of Minutes Spent Total Time Spent with Patient: Total time spent is greater than 50% in coordination of care (as documented) at patient's floor/unit and/or counseling patient: Coding Level of Care Code 13559 Subseq Hosp Care Lvl 2 Diagnoses Dizziness R42 ESRD on hemodialysis N18.6; Z99.2 Hyperkalemia E87.5 History of CVA with residual deficit I69.30 Congestive heart failure (CHF) I50.9 CAD (coronary artery disease) I25.10 Associated angina: without angina Coronary Disease-Associated Artery/Lesion type: [place] artery [place] vs. transplanted heart: [place] heart Hypertension I10 Peripheral artery disease I73.9 Second degree AV block, Mobitz type I I44.1 Carotid artery stenosis I65.29 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 E11.319 Diabetes mellitus complication detail: with diabetic retinopathy Diabetes mellitus half-way insulin use: without half-way use Diabetes mellitus macular edema: macular edema presence unspecified Diabetic retinopathy severity: with unspecified retinopathy severity Laterality: unspecified laterality Anemia D64.9 Expressive aphasia R47.01 Depression F32.9 Depression Type: unspecified Seizure disorder G40.909 GERD (gastroesophageal reflux disease) K21.9 DVT prophylaxis Z29.9 Hypoxia R09.02 Time Spent (min) 25 (1) CAD (coronary artery disease) Associated angina: without angina Coronary Disease-Associated Artery/Lesion type: [place] artery [place] vs. 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
[2020-03-05 06:16] LABS: Basophils # (auto) 0.03 K/uL (0-0.2); Basophils % (auto) 0.3 %; Eosinophils # (auto) 0.35 K/uL (0-0.5); Eosinophils % (auto) 3.6 %; Hematocrit (blood only) 33.8 % (42-52); Hemoglobin 10.6 g/dL (14.0-18.0); Immature Granulocytes # (auto) 0.05 K/uL (0.00-0.02); Immature Granulocytes % (auto) 0.5 %; Lymphocytes # (auto) 2.09 K/uL (1.2-3.4); Lymphocytes % (auto) 21.4 %; Mean Corpuscular Hemoglobin 30.8 pg (25-34); Mean Corpuscular Hgb Conc 31.4 g/dL (32-36); Mean Corpuscular Volume 98.3 fL (80-100); Mean Platelet Volume 10.2 fL (7.4-10.4); Monocytes # (auto) 1.34 K/uL (0.11-0.59); Monocytes % (auto) 13.7 %; Neutrophils # (auto) 5.92 K/uL (1.4-6.5); Neutrophils % (auto) 60.5 %; Platelet Count 168 K/uL (130-400); RDW Coefficient of Variation 17.3 % (11.5-14.5); RDW Standard Deviation 61.5 fL (36.4-46.3); Red Blood Count 3.44 M/uL (4.7-6.1); White Blood Count 9.78 K/uL (4.8-10.8)
[2020-03-05 06:54] LABS: Albumin Level 2.9 gm/dl (3.4-5.0); BUN Creatinine Ratio 7.8 (10-20); Calcium 8.3 mg/dl (8.5-10.1); Est GFR (African American) 24.1; Est GFR (Non-African American) 20.8; Potassium 4.8 mmol/L (3.5-5.1)
[2020-03-05 06:57] LABS: Albumin Globulin Ratio 0.8 (0.9-2); Bilirubin,Total 0.7 mg/dl (0.2-1); Globulin 3.8 gm/dl (2.5-4.0); Total Protein 6.7 gm/dl (6.4-8.2)
[2020-03-05] MEDS: SEVELAMER HCL 800 MG TABLET PO SCH ×3 (10:31→17:36)
--- NOTE | 2020-03-05 11:19 | Nephrology Progress Note ---
Date of Service March 05, 2020 Assessment & Plan (1) ESRD on hemodialysis: ESRD on hemodialysis Saturday, Saturday, Saturday. Admitted to the hospital with an episode of dizziness and was found to be hypotensive. On admission he was also hyperkalemic and required urgent dialysis. The estimated dry weight was increased to 56 kg, dizziness and hypotension seems to have resolved. Electrolyte acceptable. Had repeated hospitalization for similar problem, previously palliative care was involved for long-term care facility placement or hospice care however patient and both wanted to continue on dialysis and wanted him to go back home as feels like she is able to take care of him. Electrolyte, blood pressure, volume status acceptable. Clinically seems stable. --okay to be discharged when medically stable -- next dialysis Saturday can be done at the outpatient facility if patient gets discharged today or tomorrow Will follow. (2) Dizziness: (3) Acute hyperkalemia: Admission and Anticipated Discharge Date Admission Date: March 03, 2020 Jesus Rivera was seen and examined in his room this morning. He the he seems to be at his baseline, denies any specific symptoms. Denies further episode of dizziness or lightheadedness, he had dialysis yesterday, uneventful, electrolyte acceptable this morning. Review of Systems Review of Systems: All systems reviewed & are unremarkable except as noted in HPI & below Physical Exam 2 Constitutional: well developed and well nourished; no acute distress Respiratory: normal respiratory effort, lungs clear to auscultation Cardiovascular: RRR, no murmur, no edema Neurologic: moves all extremities and awake; not confused Psychiatric: A+Ox3, euthymic affect Results & Data ([facility]) Vital Signs (Past 12 Hours) Vital Signs Temp Pulse Pulse Resp BP Pulse Ox 03/05/20 07:35 36.9 C 84 20 152/73 H 91 03/05/20 00:15 74 PG Care Time/CCT Total # of Minutes Spent Total Time Spent with Patient: Total time spent is greater than 50% in coordination of care (as documented) at patient's floor/unit and/or counseling patient: Coding Level of Care Code 75925 Subseq Hosp Care Lvl 2 Diagnoses ESRD on hemodialysis N18.6; Z99.2 Dizziness R42 Acute hyperkalemia E87.5
--- NOTE | 2020-03-05 11:24 | Electrocardiogram Report ---
Test Reason : Blood Pressure : / mmHG Vent. Rate : 086 BPM Atrial Rate : 113 BPM P-R Int : 000 ms QRS Dur : 092 ms QT Int : 452 ms P-R-T Axes : 070 264 104 degrees QTc Int : 540 ms Sinus tachycardia with 2nd degree A-V block (Mobitz I) Right superior axis deviation Inferior-posterior infarct (cited on or before 03-MAR-2020) Abnormal ECG When compared with ECG of 03-MAR-2020 12:52, Sinus rhythm is now with 2nd degree A-V block (Mobitz I) ST now depressed in Anterior leads T wave inversion no longer evident in Lateral leads QT has lengthened Confirmed by Kareem Gallardo ([id number]) on 03/05/2020 11:23:34 AM Referred By: REFERRED SELF Confirmed By:Kareem Gallardo
[2020-03-05] MEDS: ATORVASTATIN 40 MG TAB PO SCH (12:19)
[2020-03-05] MEDS: CLOPIDOGREL BISULFATE 75 MG TAB PO SCH (12:19)
[2020-03-05] MEDS: FAMOTIDINE 40 MG TABLET PO SCH ×2 (12:19→21:40)
[2020-03-05] MEDS: CITALOPRAM 20 MG TAB PO SCH (12:19)
[2020-03-05] MEDS: NEPHROCAPS PO SCH (12:20)
[2020-03-05] MEDS: HEPARIN SOD 5,000 UNIT/0.5 ML VIAL SQ SCH ×2 (12:21→21:38)
[2020-03-05] MEDS: DOCUSATE SODIUM 100 MG CAP PO SCH ×2 (13:41→21:40)
[2020-03-05] MEDS: POLYETHYLENE (MIRALAX) 17 GM PACK PO SCH (13:42)
--- NOTE | 2020-03-05 23:06 | Hospitalist Progress Note ---
Date of Service March 05, 2020 Assessment & Plan (1) Dizziness: Dizzinees appears to have improved. (2) ESRD on hemodialysis: - admit to med surg -Patient had dialysis yesterday. He tolerated it. - Consulted Nephro - Low K+ diet - Recheck BMP after dialysis completed - Cont sevelamer 800 mg PO AC -keeping patient due to hypoxia. (3) Hyperkalemia: -Potassium 6.3 on admission, given dextrose, calcium, insulin to help reverse this in the ER -potassium improved after dialyssi (4) History of CVA with residual deficit: -Right-sided residual deficits s/p left MCA ischemic stroke -Continue Plavix, controlling HTN/DM -A1c is 5.4 - goal per neuro: LDL <70, BP <135/85 -MRI Brain with large left-sided encephalomalacia with moderate to severe atrophy-could be the cause of some of his personality changes, but he is also been recently started on Keppra which can also contribute to changes in mood - no signs of seizure CT head negative for acute changes. (5) Congestive heart failure (CHF): -Chronic, diastolic -Fully dialysis dependent and would not benefit from a loop diuretic -Nephrology consulted as above (6) CAD (coronary artery disease): -History of such, continue metoprolol, Plavix, and atorvastatin, history of [place] in early -With CABG (7) Hypertension: - Holding amlodipine, losartan, Imdur for hypotension -- similar presentation during previous admission - Check orthostatics -Continue metoprolol as noted above but lower the dose to 25 mg BID (8) Peripheral artery disease: -History of such secondary to above With history of iliofemoral bypass -Continue Plavix, statin (9) Second degree AV block, Mobitz type I: - Stable, continue metoprolol, imdur. 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 (14) Depression: - Noted, stable, cont keppra for now (15) Seizure disorder: -History of such -Was switched from Dilantin to Keppra 01/05/2020, continue on Keppra 500 mg p.o. MWFSun after dialysis sessions. -check Keppra level to ensure it is therapeutic today - possible that he needs a dosage adjustment - R eye deviation to the during attending visit, will check EEG, -No history of seizures for many years per neurology -Follow with neurology as an oupt (16) GERD (gastroesophageal reflux disease): - Was changed to famotidine 40 mg BID per PCP earlier this week for increased c/o heartburn, monitor. (17) DVT prophylaxis: - tedkevin pang CODE: DNR - (18) Hypoxia: Patient has had hypoxia in the past. But has improved with dialysis Unsure as the cause at this time as patient appears euvolemic. Patient has history of tobacco abuse. Perhaps he has underlying COPD. Admission and Anticipated Discharge Date Admission Date: March 03, 2020 Subjective Patient reports doing well. He has no new complaints. He still requires oxygen. Review of Systems Review of Systems: All systems reviewed & are unremarkable except as noted in HPI & below Physical Exam Physical Exam: General: awake, alert, no apparent distress Head: Normocephalic, + resolving ecchymosis under bilateral orbits ENT: PERRL, EOMI, MMM Chest: Clear to auscultation, on nebulizer, no adventitious breath sounds Cardiac: Regular rate, Mobitz type I, no murmur, no JVD, normal peripheral pulses, good capillary refill Abdominal: NABS x 4 quadrants, soft, nondistended, nontender to palpation, no rebound, guarding or tenderness Extremities: Normal inspection, no peripheral edema or erythema, calfs nontender to palpation Psych: Normal mood and affect Neuro: AA, + poor historian, no gross motor deficits, speech is clear, no peripheral sensory deficits Skin: no rash or erythema Results & Data Results & Data ([facility]) Vital Signs (Past 12 Hours) Vital Signs Temp Pulse Pulse Resp BP Pulse Ox 03/05/20 22:45 36.9 C 84 20 136/94 99 03/05/20 17:09 84 03/05/20 14:57 37.0 C 83 20 133/80 91 03/05/20 11:25 36.6 C 96 H 18 129/81 98 PG Care Time/CCT Total # of Minutes Spent Total Time Spent with Patient: Total time spent is greater than 50% in coordination of care (as documented) at patient's floor/unit and/or counseling patient: Coding Level of Care Code 22299 Subseq Hosp Care Lvl 2 Diagnoses Dizziness R42 ESRD on hemodialysis N18.6; Z99.2 Hyperkalemia E87.5 History of CVA with residual deficit I69.30 Congestive heart failure (CHF) I50.9 CAD (coronary artery disease) I25.10 Associated angina: without angina Coronary Disease-Associated Artery/Lesion type: [place] artery [place] vs. 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 E11.319 Diabetes mellitus complication detail: with diabetic retinopathy Diabetes mellitus assisted insulin use: without keno terminal operator use Diabetes mellitus macular edema: macular edema presence unspecified Diabetic retinopathy severity: with unspecified retinopathy severity Laterality: unspecified laterality Anemia D64.9 Expressive aphasia R47.01 Depression F32.9 Depression Type: unspecified Seizure disorder G40.909 GERD (gastroesophageal reflux disease) K21.9 DVT prophylaxis Z29.9 Hypoxia R09.02 Time Spent (min) 25 (1) CAD (coronary artery disease) Associated angina: without angina Coronary Disease-Associated Artery/Lesion type: [place] artery [place] vs. 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
[2020-03-06 06:11] LABS: Hematocrit (blood only) 34.7 % (42-52); Hemoglobin 10.8 g/dL (14.0-18.0); Mean Corpuscular Hemoglobin 30.9 pg (25-34); Mean Corpuscular Hgb Conc 31.1 g/dL (32-36); Mean Corpuscular Volume 99.4 fL (80-100); Mean Platelet Volume 10.6 fL (7.4-10.4); Platelet Count 193 K/uL (130-400); RDW Coefficient of Variation 17.2 % (11.5-14.5); Red Blood Count 3.49 M/uL (4.7-6.1); White Blood Count 13.11 K/uL (4.8-10.8)
[2020-03-06 07:01] LABS: Albumin Globulin Ratio 0.8 (0.9-2); BUN Creatinine Ratio 9.7 (10-20); Bilirubin,Total 0.8 mg/dl (0.2-1); Calcium 8.5 mg/dl (8.5-10.1); Est GFR (African American) 12.5; Est GFR (Non-African American) 10.8; Globulin 3.7 gm/dl (2.5-4.0); Potassium 4.8 mmol/L (3.5-5.1); Total Protein 6.7 gm/dl (6.4-8.2)
[2020-03-06] MEDS: SEVELAMER HCL 800 MG TABLET PO SCH ×3 (07:44→17:09)
[2020-03-06] MEDS: CITALOPRAM 20 MG TAB PO SCH (07:44)
[2020-03-06] MEDS: HEPARIN SOD 5,000 UNIT/0.5 ML VIAL SQ SCH (07:45)
[2020-03-06] MEDS: ATORVASTATIN 40 MG TAB PO SCH (07:45)
[2020-03-06] MEDS: NEPHROCAPS PO SCH (07:45)
[2020-03-06] MEDS: FAMOTIDINE 40 MG TABLET PO SCH (07:45)
[2020-03-06] MEDS: CLOPIDOGREL BISULFATE 75 MG TAB PO SCH (07:45)
[2020-03-06] MEDS: DOCUSATE SODIUM 100 MG CAP PO SCH (07:51)
[2020-03-06] MEDS: POLYETHYLENE (MIRALAX) 17 GM PACK PO SCH (07:51)
--- NOTE | 2020-03-06 10:54 | Nephrology Progress Note ---
Date of Service March 06, 2020 Assessment & Plan (1) ESRD on hemodialysis: ESRD on hemodialysis Saturday, Saturday, Saturday. Admitted to the hospital with an episode of dizziness and was found to be hypotensive. On admission he was also hyperkalemic and required urgent dialysis. The estimated dry weight was increased to 56 kg, dizziness and hypotension seems to have resolved. Electrolyte acceptable. Had repeated hospitalization for similar problem, previously palliative care was involved for long-term care facility placement or hospice care however patient and both wanted to continue on dialysis and wanted him to go back home as feels like she is able to take care of him. Electrolyte, blood pressure, volume status acceptable. Clinically seems stable. --okay to be discharged when medically stable --plan for dialysis tomorrow here if inpatient or can be done at the outpatient facility if patient gets discharged today. Will follow. (2) Dizziness: (3) Acute hyperkalemia: * Will provide HD tonight for 2 hours to correct hyperkalemia Admission and Anticipated Discharge Date Admission Date: March 03, 2020 Jesus Rivera was seen and examined in his room this morning. He seems to be at his baseline, denies any specific symptoms. No further episode of dizziness or lightheadedness, he had dialysis Saturday, uneventful. BP stable.. Review of Systems Review of Systems: All systems reviewed & are unremarkable except as noted in HPI & below Physical Exam Constitutional: WD/WN, vitals as above no acute distress Respiratory: normal respiratory effort, lungs clear to auscultation Cardiovascular: RRR, no murmur, no edema Neurologic: moves all extremities and awake; not confused Psychiatric: A+Ox3, euthymic affect Results & Data ([facility]) Vital Signs (Past 12 Hours) Vital Signs Temp Pulse Pulse Pulse Resp BP Pulse Ox 03/06/20 07:24 95 H 03/06/20 07:00 37.4 C 83 20 142/80 H 98 03/06/20 05:10 67 03/06/20 04:00 37.6 C H 83 20 157/83 H 98 PG Care Time/CCT Total # of Minutes Spent Total Time Spent with Patient: Total time spent is greater than 50% in coordination of care (as documented) at patient's floor/unit and/or counseling patient: Coding Level of Care Code 22267 Subseq Hosp Care Lvl 2 Diagnoses ESRD on hemodialysis N18.6; Z99.2 Dizziness R42 Acute hyperkalemia E87.5
[2020-03-06] MEDS: levETIRAcetam 500 MG TAB PO SCH (16:11)
--- NOTE | 2020-03-13 13:03 | Discharge Summary ---
Date of Service March 06, 2020 Admission HPI Per Admitting Provider Is a 74 yo M with PMHx of ESRD on hemodialysis MWF, hypertensive urgency, CHF, CAD, CVA involving left MCA on Plavix, left sided encephalomalacia with moderate to severe atrophy on most recent MRI, causing residual right-sided weakness and aphasia, chronic left ICA occlusion since 2010, epilepsy on Keppra, DM type II, depression and constipation. Patient has bee recently admitted twice: February 07- for hypertensive urgency and acute exacerbation of CHF, hypoxia and altered mental state. February 17- for vasovagal episode thought to be due to dehydration from too much fluid removal during dialysis. The patient is a very poor historian, secondary to encephalomalacia as described above. The patient was in to see Dr. Zapata for a routine checkup on Saturday and had been doing well since. At that time he had complained of some intermittent chest pain, discomfort, but was unable to provide specifics regarding how long it lasts, what makes it worse, and said that he would not even mention it to his therefore she would not give him any nitroglycerin tablets for symptoms. He did describe it more as heartburn, but is taking PPI. His called EMS because of episode of dizziness which started this morning, he was difficult to help get up out of the chair. She denies any falls today. Pt fell 1 week ago and EMS arrived to the house and helped to get him up,he did not present to the hospital at that time. She reports that every time he goes to HD his BP drops, last session was yesterday, unable to tell me how much fluid was pulled off of him. At baseline he knows where he's at and knows his . His weakness is worsening. Uses a wheelchair at baseline. He also has had loose stools for past 2 days, no nausea or vomiting, fair appetite. Denies fever, chills or sweats. describes last time he was in the hospital she wanted to start hospice, but this had not yet been arranged for. We discussed his CODE STATUS, she would like us to treat reversible causes, but does not want aggressive measures, and would like palliative medicine to see him while he was here this time. Principal Diagnosis ESRD on hemodialysis Discharge Exam General: awake, alert, no apparent distress Head: Normocephalic, + resolving ecchymosis under bilateral orbits ENT: PERRL, EOMI, MMM Chest: Clear to auscultation, on nebulizer, no adventitious breath sounds Cardiac: Regular rate, Mobitz type I, no murmur, no JVD, normal peripheral pulses, good capillary refill Abdominal: NABS x 4 quadrants, soft, nondistended, nontender to palpation, no rebound, guarding or tenderness Extremities: Normal inspection, no peripheral edema or erythema, calfs nontender to palpation Psych: Normal mood and affect Neuro: AA, + poor historian, no gross motor deficits, speech is clear, no peripheral sensory deficits Skin: no rash or erythema Discharge Data Allergies Allergy/AdvReac Type Severity Reaction Status Date / Time adhesive Allergy Intermediate BLISTERING Verified 03/03/20 13:30 OF SKIN latex Allergy Mild Rash Verified 03/03/20 13:30 Consultations 03/03/20 14:35 ED Decision to Admit Stat 03/03/20 15:58 Consult Palliative Care Routine 03/03/20 18:49 Consult Case Management - Discharge Planning Routine Consult Nephrology Routine Ordered Studies 03/03/20 12:36 CT head/brain wo con Stat Hospital Course (1) Dizziness: Dizzinees appears to have improved. (2) ESRD on hemodialysis: - admitted to med surg -Patient had dialysis x2. He tolerated it. - Consulted Nephro - Low K+ diet - Cont sevelamer 800 mg PO AC -kept patient due to hypoxia however this resolved spontaneously. (3) Hyperkalemia: -Potassium 6.3 on admission, given dextrose, calcium, insulin to help reverse this in the ER -potassium improved after dialysis (4) History of CVA with residual deficit: -Right-sided residual deficits s/p left MCA ischemic stroke -Continue Plavix, controlling HTN/DM -A1c is 5.4 - goal per neuro: LDL <70, BP <135/85 -MRI Brain with large left-sided encephalomalacia with moderate to severe atrophy-could be the cause of some of his personality changes, but he is also been recently started on Keppra which can also contribute to changes in mood - no signs of seizure CT head negative for acute changes. (5) Congestive heart failure (CHF): -Chronic, diastolic -Fully dialysis dependent and would not benefit from a loop diuretic -Nephrology consulted as above (6) CAD (coronary artery disease): -History of such, continue metoprolol, Plavix, and atorvastatin, history of [place] in early -With CABG (7) Hypertension: - Holding amlodipine, losartan, Imdur for hypotension -- similar presentation during previous admission - Check orthostatics -Continue metoprolol as noted above but lower the dose to 25 mg BID (8) Peripheral artery disease: -History of such secondary to above With history of iliofemoral bypass -Continue Plavix, statin (9) Second degree AV block, Mobitz type I: - Stable, continue metoprolol, imdur. 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 (14) Depression: - Noted, stable, cont keppra for now (15) Seizure disorder: -History of such -Was switched from Dilantin to Keppra 01/05/2020, continue on Keppra 500 mg p.o. MWFSun after dialysis sessions. -check Keppra level to ensure it is therapeutic today - possible that he needs a dosage adjustment - R eye deviation to the during attending visit, will check EEG, -No history of seizures for many years per neurology -Follow with neurology as an oupt (16) GERD (gastroesophageal reflux disease): - Was changed to famotidine 40 mg BID per PCP earlier this week for increased c/o heartburn, monitor. (17) DVT prophylaxis: - teds, lovneox CODE: DNR - (18) Hypoxia: Patient has had hypoxia in the past. But has improved with dialysis Unsure as the cause at this time as patient appears euvolemic. Patient has history of tobacco abuse. Perhaps he has underlying COPD. On day of discharge, patient on room air. Total Time Total Time Spent Total Time Spent (In Minutes): 32 Total Time Includes: Examination of the Patient, Discharge Planning and Medication Reconciliation Discharge Plan Discharge Items Patient Disposition: Home - Home Health Services Reason For Visit: HYPERKALEMIA,ESRD ON HD,DIZZINESS,HYPOTENSION Discharge Diagnosis: dizziness/ hypotension Activity: Resume your previous activity Non-emergency contact: Primary Care Provider Call non-emergency contact if: you have any medication questions Follow-up/Referrals: Erick Zapata III, MD [Primary Care Provider] - Diet: Dialysis Renal and Heart Healthy Addtl Attending Provider Instructions: You have been hospitalized for an acute medical problem. During your stay at [facility], we have made an effort to correct the problem that brought you to the hospital while keeping you as comfortable as possible. Medications were used to bring your condition under control and your discharge instructions will include directions for any medications you should take after leaving the hospital. Please make sure you see your Primary Care Provider as part of your follow up plan. You improved after dialysis. Your blood pressure has also been controlled without any blood pressure medications. Keep an eye on your blood pressure at home and keep a diary. will recommend only a low dose of amlodipine at home. Pending Studies at Discharge: No Stand-Alone Forms: My [facility], Smoking Cessation Medications and DC Order Prescriptions: Continued sennosides [Senokot] 8.6 mg tablet 8.6 mg PO QPM PRN (Reason: Constipation) Qty: 30 RF: 0 citalopram 20 mg tablet 20 mg PO DAILY Qty: 30 RF: 5 famotidine 40 mg tablet 40 mg PO BID Qty: 180 RF: 3 hydrocortisone [Proctosol HC] 2.5 % cream with perineal applicator 1 appln TN DAILY PRN (Reason: itching) Qty: 28 RF: 0 Renal Caps 1 mg Capsule 1 cap PO QAM Qty: 30 RF: 0 docusate sodium [Stool Softener] 100 mg Capsule 100 mg PO BID Qty: 0 RF: 0 polyethylene glycol 3350 [Miralax] 17 gram powder in packet 17 gm PO DAILY Qty: 0 RF: 0 sevelamer HCl [Renagel] 800 mg tablet 800 mg PO AC RF: 0 nitroglycerin [Nitrostat] 0.4 mg tablet, sublingual 0.4 mg SL UD PRN (Reason: Chest Pain) RF: 0 atorvastatin [Lipitor] 80 mg tablet 80 mg PO DAILY RF: 0 calcitriol [Rocaltrol] 0.25 mcg capsule 0.25 mcg PO MOWEFR RF: 0 levetiracetam [Keppra] 500 mg tablet 500 mg PO [id number] RF: 0 clopidogrel [Plavix] 75 mg tablet 75 mg PO DAILY RF: 0 Changed amlodipine [Norvasc] 5 mg tablet 2.5 mg PO QPM Qty: 0 RF: 0 Discontinued isosorbide mononitrate 60 mg tablet extended release 24 hr 60 mg PO DAILY Qty: 30 RF: 5 losartan 25 mg tablet 25 mg PO DAILY RF: 0 Hold Instructions: due to syncope/presyncope Discharge Orders: Discharge Order (Routine); Ordered 03/06/20 Ordered By: Luis Enrique Pacheco Admission Data Admit Date/Time: 03/03/20 15:05 Attending Provider: Luis Enrique Pacheco Admit Provider: Jarrod Jones Primary Care Provider: Erick Zapata III Other Providers: Lena Basurto ; Nas Villagran Other Interventions: Discharge Summary Assessment (RN) Last Done: 03/06/20 16:20 DC Date/Time DO NOT enter until pt leaves facility: 03/06/20 17:22 Coding Level of Care Code D/C Day Management >30 mins Diagnoses Dizziness R42 ESRD on hemodialysis N18.6; Z99.2 Hyperkalemia E87.5 History of CVA with residual deficit I69.30 Congestive heart failure (CHF) I50.9 CAD (coronary artery disease) I25.10 Coronary Disease-Associated Artery/Lesion type: [place] artery [place] vs. 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
== END 2020-03-06 17:22 | disposition home health service (06) | DRG 314 ==
LOC: ED 12:01 → SUATTDRO 15:05 → INTOOBSV 15:05 → 2N 15:05 → 3W 03-04 07:36 → 2W 03-04 20:30

== ENCOUNTER 2020-04-13 23:11 | Inpatient (IN) ==
[2020-04-13 23:52] LABS: Basophils # (auto) 0.01 K/uL (0-0.2); Basophils % (auto) 0.1 %; Eosinophils # (auto) 0.19 K/uL (0-0.5); Eosinophils % (auto) 2.1 %; Hematocrit (blood only) 40.7 % (42-52); Hemoglobin 12.1 g/dL (14.0-18.0); Immature Granulocytes # (auto) 0.05 K/uL (0.00-0.02); Immature Granulocytes % (auto) 0.5 %; Lymphocytes # (auto) 1.96 K/uL (1.2-3.4); Lymphocytes % (auto) 21.2 %; Mean Corpuscular Hemoglobin 28.3 pg (25-34); Mean Corpuscular Hgb Conc 29.7 g/dL (32-36); Mean Corpuscular Volume 95.1 fL (80-100); Mean Platelet Volume 10.4 fL (7.4-10.4); Monocytes # (auto) 1.51 K/uL (0.11-0.59); Monocytes % (auto) 16.4 %; Neutrophils # (auto) 5.51 K/uL (1.4-6.5); Neutrophils % (auto) 59.7 %; Nucleated RBC # (auto) 0.08 K/uL (0-0); Nucleated RBC % (auto) 0.8 %; Platelet Count 348 K/uL (130-400); RDW Coefficient of Variation 20.3 % (11.5-14.5); RDW Standard Deviation 70.4 fL (36.4-46.3); Red Blood Count 4.28 M/uL (4.7-6.1); White Blood Count 9.23 K/uL (4.8-10.8)
--- NOTE | 2020-04-13 23:56 | Emergency Department Note ---
Impression & Plan Hypoxia, Chest pain ED Provider Note NAME: VIVIANA LANIER AGE: 74 SEX: M ARRIVES VIA: Ambulance INFORMANT: Patient ED PROVIDER(S): Mojgan Morrow DO CHIEF COMPLAINT: Chest pain PLAN: Disposition: Admitted to the [facility] service Condition: Stable MEDICAL DECISION MAKING: This is a 74-year-old male patient brought to the emergency department tonight after calling EMS for an episode of chest pain at home. The patient is a dialysis patient who recently underwent fistula replacement in the left arm. The patient developed some chest discomfort at home that resolved by the time EMS arrived. In route to the hospital, the patient did complain of some increased shortness of breath and generalized pain. The patient was noted to be hypoxic without supplemental oxygen. A nasal cannula was left in place. He had no further complaints of chest pain while here in the emergency department. The patient's troponin is chronically elevated however, the patient appears to be more fluid overloaded than normal and suffering from hypoxia. Triage Nursing notes reviewed and agree them. Additional history obtained from EMS Prior medical records reviewed Vital Signs: reviewed and remarkable for hypertension Differential diagnosis: STEMI, congestive heart failure, fluid overload, electrolyte abnormality, NSTEMI, angina Diagnostics interpreted by me: ECG: Undetermined baseline rhythm with a right bundle branch block. This is a change from an EKG from March 04, 2020. This is somewhat concerning for ischemia. Laboratory studies: See below Imaging studies: As per my interpretation Chest x-ray: Congestive heart failure with bilateral pleural effusions HPI: 74/M arrives for evaluation of chest pain. The patient apparently developed some chest pain this evening along with shortness of breath. Upon EMS arrival, the chest pain had resolved but he was describing generalized pain and shortness of breath. The patient is a dialysis patient and recently had a new fistula placed in the left upper extremity. ROS: See above HPI for pertinent positives & negatives. A total of 10 systems reviewed and were otherwise negative. PAST MEDICAL HISTORY:See Below PAST SURGICAL HISTORY:See Below FAMILY HISTORY:See Below SOCIAL HISTORY:See Below HOME MEDICATIONS:See list ALLERGIES:See list VITALS:See Below PHYSICAL EXAMINATION: HEENT: Head - normocephalic and atraumatic Pupils are equal, round, and reactive to light. Extraocular eye muscles are intact, and sclera are anicteric. Nose - moist nasal mucosa without discharge. Mouth - moist buccal mucosa. Oropharynx is nonerythematous and there is no tonsillar exudate or edema noted. Neck: Supple; no JVD, nuchal rigidity, cervical lymphadenopathy, or auscultated bruits. Chest: Permacath in the right anterior chest wall Heart: Regular rate and rhythm. There is a normal S1 and S2 with no murmurs, clicks, or gallops appreciated. Lungs: Clear to auscultation bilaterally with no wheezes, rales, or rhonchi. Abdomen: Soft, completely nontender, nondistended, with good bowel sounds. There are no palpable pulsatile masses or hepatosplenomegaly. There is no guarding, rigidity, or rebound noted. Extremities: Moderate edema in the lower extremities with the right being great er than the left. There are easily palpable peripheral pulses. Dialysis fistula in the left upper extremity Skin: warm and dry with good turgor and no rashes. ED COURSE: Times/Reassessments: 2307: Patient was evaluated in room C7. A complete history and physical was performed. An order was placed for continuous cardiac monitoring. It appears the patient is in a normal sinus rhythm at a rate of 96. Previous electronic medical records were reviewed. A twelve-lead EKG was obtained. The patient's O2 saturation dropped to 86% without supplemental oxygen. 0130: The patient was reevaluated at this time and he was sleeping. I woke him and he had no complaints of pain or shortness of breath. I have personally spent greater than 30 minutes of critical care time in the direct management of this patient. This includes bedside care, interpretation of diagnostic studies, and testing, discussion with consultants, patient, and family members, and other required patient management activities. This 30 minutes is in excess of all separately billable procedures. Mojgan Morrow, Past Med/Surg History Social History Smoking Status: Former smoker Cigarettes Per Day: 30; Second Hand Exposure: No; Do You Dip or Chew Tobacco: No; Tobacco Cessation Education Requested by Patient: No Hx Alcohol Use: No Hx Substance Use: No Preferred Language: Kiswahili Communication Ability: Effective Visual Impairment: No Limitations Designated Broker Required: No Beliefs That Will Affect Care: None marital status: Current Living Situation: Spouse Current Living Situation Comment: in an apartment per Other Information That Helps Us Care for You: No Feels Safe at Home: Yes Safety Concerns: Feels Safe At This Time caffeine: No Seatbelt Use: always Allergies Allergies Allergy/AdvReac Type Severity Reaction Status Date / Time adhesive Allergy Unknown BLISTERING Verified 04/14/20 00:04 OF SKIN latex Allergy Unknown Rash Verified 04/14/20 00:04 Home Meds Home Medications Medication Instructions Recorded Confirmed nitroglycerin [Nitrostat] 0.4 mg SL UD PRN 02/08/20 04/14/20 sevelamer HCl [Renagel] 800 mg PO AC 02/08/20 04/14/20 atorvastatin [Lipitor] 80 mg PO HS 02/18/20 04/13/20 calcitriol [Rocaltrol] 0.25 mcg PO 3XWK 02/18/20 04/13/20 clopidogrel [Plavix] 75 mg PO DAILY 02/18/20 04/13/20 levetiracetam [Keppra] 500 mg PO 4XWK 02/18/20 04/14/20 metoprolol tartrate 50 mg PO BID 03/14/20 04/13/20 citalopram 20 mg PO QAM 03/29/20 04/13/20 citalopram 10 mg PO HS 04/13/20 04/13/20 docusate sodium [Stool Softener] 100 mg PO DAILY PRN 04/13/20 04/13/20 glipizide 2.5 mg PO DAILY 04/13/20 04/13/20 isosorbide mononitrate 60 mg PO DAILY 04/13/20 04/14/20 Previous Rx's Medication Instructions Recorded Renal Caps 1 cap PO QAM #30 cap 11/20/19 polyethylene glycol 3350 [Miralax] 17 gm PO DAILY #0 ea 12/04/19 hydrocortisone 2.5 % topical cream 1 appln [place] DAILY PRN #28 gm 12/10/19 with perineal applicator sennosides 8.6 mg tablet 8.6 mg PO QPM PRN #30 tab 12/31/19 famotidine 40 mg tablet 40 mg PO BID #180 tab 03/01/20 amlodipine [Norvasc] 2.5 mg PO QPM #0 tab 03/06/20 oxycodone-acetaminophen [Percocet] 1 tab PO Q6H PRN #20 tab 04/05/20 Results & Data (ED) Vital Signs Vital Signs - 24 hr 04/13/20 23:03 04/13/20 23:13 04/14/20 01:03 Temperature 37.1 C Temperature Source Oral Pulse Rate 100 H Pulse Rate [Apical] 89 Respiratory Rate 18 18 Respiratory Effort / Characteristics Non-Labored Respiratory Depth Normal Respiratory Pattern Regular Blood Pressure 156/105 H Blood Pressure [Right Radial Artery] 167/101 H Blood Pressure Mean 122 Blood Pressure Mean [Right Radial Artery] 123 Blood Pressure Position Lying Blood Pressure Position [Right Radial Artery] Lying Pulse Oximetry 90 97 86 L Oxygen Delivery Method Room Air Nasal Cannula Room Air Oxygen Flow Rate 2 Sepsis Recent Fever Within 48 Hours No Sepsis New/Unexplained Change in Mental Status No Sepsis Action Taken by Nursing No Action Required Laboratory Data Result diagrams: 04/13/20 23:37 04/13/20 23:37 Lab Results 04/13/20 04/13/20 04/13/20 Range/Units 23:37 23:37 23:37 WBC 9.23 (4.8-10.8) K/uL RBC 4.28 L (4.7-6.1) M/uL Hgb 12.1 L (14.0-18.0) g/dL Hct 40.7 L (42-52) % MCV 95.1 (80-100) fL MCH 28.3 (25-34) pg MCHC 29.7 L (32-36) g/dL RDW Std Deviation 70.4 H (36.4-46.3) fL RDW Coeff of Shayy 20.3 H (11.5-14.5) % Plt Count 348 (130-400) K/uL MPV 10.4 (7.4-10.4) fL Immature Gran % (Auto) 0.5 % Neut % (Auto) 59.7 % Lymph % (Auto) 21.2 % [place] % (Auto) 16.4 % Eos % (Auto) 2.1 % Baso % (Auto) 0.1 % Neut # (Auto) 5.51 (1.4-6.5) K/uL Lymph # (Auto) 1.96 (1.2-3.4) K/uL [place] # (Auto) 1.51 H (0.11-0.59) K/uL Eos # (Auto) 0.19 (0-0.5) K/uL Baso # (Auto) 0.01 (0-0.2) K/uL Immature Gran # (Auto) 0.05 H (0.00-0.02) K/uL Absolute Nucleated RBC 0.08 H (0-0) K/uL Nucleated RBC % (auto) 0.8 % Poikilocytosis Present Anisocytosis Present PT 11.9 (9.0-12.0) Seconds INR 1.1 (0.9-1.1) APTT 26.9 (21.0-31.0) Seconds PTT Ratio 1.0 Sodium 139 (136-145) mmol/L Potassium 3.7 (3.5-5.1) mmol/L Chloride 98 (98-107) mmol/L Carbon Dioxide 31 (21-32) mmol/L Anion Gap 10.0 (3-11) BUN 33 H (7-18) mg/dl Creatinine 3.24 H (0.6-1.4) mg/dl Est Cr Clr Drug Dosing 18.1 ml/min Est GFR ( Amer) 20.7 Est GFR (Non-Af Amer) 17.8 BUN/Creatinine Ratio 10.2 (10-20) Glucose 130 H (70-99) mg/dl Calcium 8.6 (8.5-10.1) mg/dl Total Bilirubin 1.1 H (0.2-1) mg/dl AST 30 (15-37) U/L ALT 21 (12-78) U/L Alkaline Phosphatase 84 (45-117) U/L Troponin I 0.084 H* (0-0.045) ng/ml Total Protein 8.7 H (6.4-8.2) gm/dl Albumin 3.2 L (3.4-5.0) gm/dl Globulin 5.5 H (2.5-4.0) gm/dl Albumin/Globulin Ratio 0.6 L (0.9-2) Lipase 249 (73-393) U/L Administered Medications Discontinued Medications Haloperidol Lactate (Haldol) 2.5 mg IM NOW STA Stop: 04/14/20 03:21 Last Admin: 04/14/20 03:35 Dose: 2.5 mg Documented by: [id number] Discharge Plan Visit Data *Final* Discharge Date/Time: 04/14/20 02:00 Chief Complaint: Chest Pain Stated Complaint: CHEST PAIN/GENERALIZED PAIN Other Complaint: Pain (Generalized) ED Provider: Mojgan Morrow Discharge Problem: Hypoxia, Chest pain Patient Disposition: Admitted As Inpatient Discharge Instructions Interventions: ED Discharge Assessment Last Done: 04/14/20 02:00 Discharge Problem: Chest pain Qualifiers: Chest pain type: precordial pain Qualified Code(s): R07.2 - Precordial pain
[2020-04-13 23:58] LABS: INR 1.1 (0.9-1.1); Partial Thromboplastin Time 26.9 Seconds (21.0-31.0); Prothrombin Time 11.9 Seconds (9.0-12.0)
[2020-04-14 00:05] LABS: Albumin Level 3.2 gm/dl (3.4-5.0); BUN Creatinine Ratio 10.2 (10-20); Calcium 8.6 mg/dl (8.5-10.1); Creatinine Clr Calc Pharmacy 18.1 ml/min; Est GFR (African American) 20.7; Est GFR (Non-African American) 17.8; Potassium 3.7 mmol/L (3.5-5.1)
[2020-04-14 00:12] LABS: Anisocytosis Present; Poikilocytosis Present
[2020-04-14 00:18] LABS: Albumin Globulin Ratio 0.6 (0.9-2); Bilirubin,Total 1.1 mg/dl (0.2-1); Globulin 5.5 gm/dl (2.5-4.0); Total Protein 8.7 gm/dl (6.4-8.2); Troponin I 0.084 ng/ml (0-0.045)
[2020-04-14] MEDS ORDERED: HALOPERIDOL LACTATE 5 MG/ML 1 ML VIAL IM STA (03:20)
[2020-04-14] MEDS ORDERED: OXYCODONE/ACETAMINOPHEN 5mg/325mg TAB PO PRN (03:29)
[2020-04-14] MEDS ORDERED: DOCUSATE SODIUM 100 MG CAP PO PRN (03:29)
[2020-04-14] MEDS ORDERED: ACETAMINOPHEN 325 MG TAB PO PRN (03:29)
[2020-04-14] MEDS ORDERED: NITROGLYCERIN SL 0.4 MG/TAB TAB SL PRN ×2 (03:29→06:16)
[2020-04-14] MEDS ORDERED: SENNA 8.6 MG TAB PO PRN (03:29)
[2020-04-14] MEDS ORDERED: ONDANSETRON INJ 2 MG/ML 2 ML VIAL IV PRN (03:29)
--- NOTE | 2020-04-14 06:12 | History & Physical Report ---
Date of Service April 14, 2020 Assessment & Plan (1) Chest pain: 74-year-old male with past medical history ESRD on hemodialysis MWF, hypertensive urgency, CHF, CAD, CVA involving left MCA on Plavix, left sided encephalomalacia with moderate to severe atrophy on most recent MRI, causing residual right-sided weakness and aphasia, chronic left ICA occlusion since 2010, epilepsy on Keppra, DM type II, depression and constipation presents with some concern of chest pain found to be hypoxic requiring oxygen. Chest pain/elevated troponin Admit to med telemetry Patient without any chest pain symptoms at present Please find and review admission EKG. This was not available to us as noted in the HPI Troponin on admission 0.084. Will trend every 6 hours x2. Patient with chronic elevated troponin in the setting of ESRD on HD Morphine nitroglycerin ordered as needed chest pain Defer cardiology consult at present Lower concern for ACS Hypoxia -CXR: Congestive heart failure with bilateral pleural effusions -Requiring 3 L nasal cannula. Patient with no home O2 needs -Patient has had hypoxia in the past, but has improved with dialysis -holding off on lasix at this time given patient's creatinine/ESRD status. Will defer to nephrology -Patient has history of tobacco abuse ESRD on hemodialysis -Appreciate nephrology consult -Without any significant electrolyte abnormalities -last HD session was Saturday. HD MWF. No acute need for HD at present - Renal diet - Cont sevelamer 800 mg PO AC Diastolic CHF -Chronic -Fully dialysis dependent and would not benefit from a loop diuretic -Nephrology consulted as above -Patient currently requiring 3 L nasal cannula. 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 If blood sugars get out of control can add on later Anemia - Stable, at baseline -No sign of acute bleeding -Daily CBC Expressive aphasia -Noted, secondary to CVA Depression/ Seizure disorder -stable, cont keppra for now -check keppra level to ensure therapeutic DVT prophylaxis: Lovenox SQ Full codeplease note this was based on previous notes. Discussion needs to be had with today Dispo: Med Tele Admission and Anticipated Discharge Date Admission Date: April 14, 2020 History of Present Illness Chief Complaint: Chest pain Primary Care Provider: Erick Zapata MD 74-year-old male with past medical history ESRD on hemodialysis MWF, hypertensive urgency, CHF, CAD, CVA involving left MCA on Plavix, left sided encephalomalacia with moderate to severe atrophy on most recent MRI, causing residual right-sided weakness and aphasia, chronic left ICA occlusion since 2010, epilepsy on Keppra, DM type II, depression and constipation presents with some concern of chest pain. Of note patient is a very poor historian secondary to encephalomalacia with very limited insight. Reportedly patient had an episode of chest pain along with some shortness of breath earlier in the evening. By the time EMS had arrived chest pain had resolved. Upon my exam, patient denies anything on review of systems, however again it is noted that patient does not offer much in the way of his own history. Pertinent labs: Hemoglobin 12.1, creatinine 3.24, BUN 33, glucose 130, troponin 0 0.084 EKG-unable to be found in pt's chart or on MUSE (likely because [facility] was in 'downtime' during this admission) Chest x-ray: per my interpretation, Congestive heart failure with bilateral pleural effusions ER course: No significant course in the way of medication Allergies Allergy/AdvReac Type Severity Reaction Status Date / Time adhesive Allergy Unknown BLISTERING Verified 04/14/20 00:04 OF SKIN latex Allergy Unknown Rash Verified 04/14/20 00:04 Home Medications Home Medications Medication Instructions Recorded Confirmed Type Renal Caps 1 cap PO QAM #30 cap 11/20/19 04/14/20 Rx polyethylene glycol 3350 [Miralax] 17 gm PO DAILY #0 ea 12/04/19 04/14/20 Rx hydrocortisone 2.5 % topical cream 1 appln [place] DAILY PRN #28 gm 12/10/19 04/14/20 Rx with perineal applicator sennosides 8.6 mg tablet 8.6 mg PO QPM PRN #30 tab 12/31/19 04/14/20 Rx nitroglycerin [Nitrostat] 0.4 mg SL UD PRN 02/08/20 04/14/20 History sevelamer HCl [Renagel] 800 mg PO AC 02/08/20 04/14/20 History atorvastatin [Lipitor] 80 mg PO HS 02/18/20 04/13/20 History calcitriol [Rocaltrol] 0.25 mcg PO 3XWK 02/18/20 04/13/20 History clopidogrel [Plavix] 75 mg PO DAILY 02/18/20 04/13/20 History levetiracetam [Keppra] 500 mg PO 4XWK 02/18/20 04/14/20 History famotidine 40 mg tablet 40 mg PO BID #180 tab 03/01/20 04/13/20 Rx amlodipine [Norvasc] 2.5 mg PO QPM #0 tab 03/06/20 04/13/20 Rx metoprolol tartrate 50 mg PO BID 03/14/20 04/13/20 History citalopram 20 mg PO QAM 03/29/20 04/13/20 History oxycodone-acetaminophen [Percocet] 1 tab PO Q6H PRN #20 tab 04/05/20 04/14/20 Rx citalopram 10 mg PO HS 04/13/20 04/13/20 History docusate sodium [Stool Softener] 100 mg PO DAILY PRN 04/13/20 04/13/20 History glipizide 2.5 mg PO DAILY 04/13/20 04/13/20 History isosorbide mononitrate 60 mg PO DAILY 04/13/20 04/14/20 History Past Med/Surg History Social History Smoking Status: Former smoker Cigarettes Per Day: 30; Second Hand Exposure: No; Do You Dip or Chew Tobacco: No; Tobacco Cessation Education Requested by Patient: No Hx Alcohol Use: No Hx Substance Use: No Preferred Language: Polish Communication Ability: Effective Visual Impairment: No Limitations Marketing Administrative Assistant Required: No Beliefs That Will Affect Care: None marital status: Current Living Situation: Spouse Current Living Situation Comment: in an apartment per Other Information That Helps Us Care for You: No Feels Safe at Home: Yes Safety Concerns: Feels Safe At This Time caffeine: No Seatbelt Use: always Review of Systems Review of Systems: All systems reviewed & are unremarkable except as noted in HPI & below Physical Exam Constitutional: WD/WN, vitals as above no acute distress Respiratory: normal respiratory effort, lungs clear to auscultation no respiratory distress Cardiovascular: RRR, no murmur, no edema Chest (Breasts): Additional Comments: Permacath in the right anterior chest wall Gastrointestinal (Abdomen): normal bowel sounds, soft, nontender, no hepatosplenomegaly Skin: no rashes, warm and dry Dialysis fistula in the LUE Psychiatric: Orientation: alert Insight: + poor insight Lymphatic: +1 LE edema Results & Data Results & Data ([facility]) Vital Signs (Past 12 Hours) Vital Signs Temp Pulse Pulse Resp BP BP BP 04/14/20 05:33 96 H 04/14/20 05:13 36.9 C 98 H 22 155/95 H 04/14/20 03:29 36.9 C 98 H 22 155/95 H 04/14/20 02:00 18 161/101 H 04/14/20 01:03 89 18 167/101 H 04/13/20 23:13 04/13/20 23:03 37.1 C 100 H 18 156/105 H Pulse Ox 04/14/20 05:33 04/14/20 05:13 92 04/14/20 03:29 92 04/14/20 02:00 95 04/14/20 01:03 86 L 04/13/20 23:13 97 04/13/20 23:03 90 Laboratory Results Laboratory Results - last 24 hr 04/13/20 04/13/20 04/13/20 23:37 23:37 23:37 WBC 9.23 RBC 4.28 L Hgb 12.1 L Hct 40.7 L MCV 95.1 MCH 28.3 MCHC 29.7 L RDW Std Deviation 70.4 H RDW Coeff of Shayy 20.3 H Plt Count 348 MPV 10.4 Immature Gran % (Auto) 0.5 Neut % (Auto) 59.7 Lymph % (Auto) 21.2 [place] % (Auto) 16.4 Eos % (Auto) 2.1 Baso % (Auto) 0.1 Neut # (Auto) 5.51 Lymph # (Auto) 1.96 [place] # (Auto) 1.51 H Eos # (Auto) 0.19 Baso # (Auto) 0.01 Immature Gran # (Auto) 0.05 H Absolute Nucleated RBC 0.08 H Nucleated RBC % (auto) 0.8 Poikilocytosis Present Anisocytosis Present PT 11.9 INR 1.1 APTT 26.9 PTT Ratio 1.0 Sodium 139 Potassium 3.7 Chloride 98 Carbon Dioxide 31 Anion Gap 10.0 BUN 33 H Creatinine 3.24 H Est Cr Clr Drug Dosing 18.1 Est GFR ( Amer) 20.7 Est GFR (Non-Af Amer) 17.8 BUN/Creatinine Ratio 10.2 Glucose 130 H Calcium 8.6 Total Bilirubin 1.1 H AST 30 ALT 21 Alkaline Phosphatase 84 Troponin I 0.084 H* Total Protein 8.7 H Albumin 3.2 L Globulin 5.5 H Albumin/Globulin Ratio 0.6 L Lipase 249 Medications Administered Current Inpatient Medications Acetaminophen (Tylenol) 650 mg PO Q4H PRN PRN Reason: pain/fever Stop: 05/14/20 03:28 Amlodipine Besylate (Norvasc) 2.5 mg PO QPM [facility] Stop: 05/14/20 20:59 Atorvastatin Calcium (Lipitor) 80 mg PO HS SEE Stop: 05/14/20 20:59 Calcitriol (Rocaltrol) 0.25 mcg PO MoWeFr [facility] Stop: 05/15/20 08:59 Citalopram Hydrobromide (Celexa) 10 mg PO HS [facility] Stop: 05/14/20 20:59 Citalopram Hydrobromide (Celexa) 20 mg PO QAM SEE Stop: 05/14/20 08:59 Clopidogrel Bisulfate (Plavix) 75 mg PO DAILY [facility] Stop: 05/14/20 08:59 Docusate Sodium (Colace) 100 mg PO DAILY PRN PRN Reason: Constipation Stop: 05/14/20 03:28 Famotidine (Pepcid) 40 mg PO BID [facility] Stop: 05/14/20 08:59 Glipizide (Glucotrol Extended Rel) 2.5 mg PO DAILY [facility] Stop: 05/14/20 08:59 Isosorbide Mononitrate (Imdur Extended Rel) 60 mg PO DAILY [facility] Stop: 05/14/20 08:59 Levetiracetam (Keppra) 500 mg PO SuTuThSa [facility] Stop: 05/14/20 08:59 Metoprolol Tartrate (Lopressor) 50 mg PO BID [facility] Stop: 05/14/20 08:59 Nitroglycerin (Nitrostat) 0.4 mg SL UD PRN PRN Reason: Chest Pain Stop: 05/14/20 03:28 Ondansetron HCl (Zofran) 4 mg IV Q6H PRN PRN Reason: Nausea Stop: 05/14/20 03:28 Oxycodone/Acetaminophen (Percocet 5mg/325mg) 1 tab PO Q6H PRN PRN Reason: pain Stop: 04/28/20 03:28 Polyethylene Glycol (Miralax Powder Packet) 17 gm PO DAILY SEE Stop: 05/14/20 08:59 Sennosides (Senokot) 8.6 mg PO QPM PRN PRN Reason: Constipation Stop: 05/14/20 03:28 Sevelamer HCl (Renagel) 800 mg PO AC SEE Stop: 05/14/20 07:29 Vitamin B Complex/Folic Acid (Nephrocaps) 1 cap PO QAM SEE Stop: 05/14/20 08:59 Supervising Physician Co-Signing Physician Notes Patient seen and examined, chart reviewed, case discussed with Dr. Ramirez and I agree with his assessment and plan as documented above. Briefly, patient is a 74yo C male presenting with chest pain. Patient unable to provide history due to underlying dementia On exam he is afebrile, HD stable, pleasantly demented, answers "yes" to all questions asked Skin - intact HEENT - NC/AT Heart - +S1/S2, regular, no m/r/g Lungs - CTA Abd - +BS, soft, NT/ND Ext - No edema Labs and images reviewed Assessment/Plan - 74yo m with history of CAD, CHF, DM/HTN/HLP, ESRD on HD presenting with CP. Troponin is elevated at 0.084 which is lower than prior values (ESRD on HD). -Admit to med/tele -Trend troponin -Check EKG (cannot find one on chart or MUSE from earlier) -Continue home agents -Renal consult appreciated for HD - no urgent need for HD at this time -Remainder of plan as above Resident Activity Tracking Resident Involvement: Resident Care Provided Care Provided: Adult Hospital Medicine
[2020-04-14] MEDS ORDERED: MoRPHine SULFATE 2 MG/ML CARP IV PRN (06:16)
--- NOTE | 2020-04-14 06:58 | Billing Data ---
Date of Service April 14, 2020 Coding Level of Care Code 11566 Initial Inpt Care Lvl 3
--- NOTE | 2020-04-14 07:38 | XRay Report ---
XR chest 1V portable CLINICAL HISTORY: Atypical chest pain COMPARISON STUDY: 04/05/2020 FINDINGS: The heart remains enlarged. There are postsurgical changes of a midline sternotomy. There i s a right-sided dual-lumen central venous catheter. There is worsening congestive failure with mild p ulmonary edema. There are bilateral pleural effusions.[ IMPRESSION: Worsening congestive failure/pulmonary edema with bilateral pleural effusions. ACT 112: Negative or not required by law. Electronically signed by: Nick Vegas M.D. 04/14/2020 7:37 AM
--- NOTE | 2020-04-14 08:09 | Electrocardiogram Report ---
Test Reason : Blood Pressure : / mmHG Vent. Rate : 091 BPM Atrial Rate : 091 BPM P-R Int : 328 ms QRS Dur : 098 ms QT Int : 406 ms P-R-T Axes : 075 263 094 degrees QTc Int : 499 ms Sinus rhythm with 1st degree A-V block with Premature ventricular complexes or Fusion complexes in a pattern of bigeminy Old Inferior-posterior infarct (cited on or before 03-MAR-2020) Diffuse Nonspecific T wave abnormality Abnormal ECG When compared with ECG of 04-MAR-2020 20:21, Fusion complexes are now Present Premature ventricular complexes are now Present Sinus rhythm is no longer with 2nd degree A-V block (Mobitz I) Inverted T waves have replaced nonspecific T wave abnormality in Anterior leads Confirmed by Nguyễn Pressley ([id number]) on 04/14/2020 8:09:42 AM Referred By: REFERRED SELF Confirmed By:Nguyễn Pressley
[2020-04-14] MEDS ORDERED: SODIUM CHLORIDE 0.9% 1000ML 1,000 ML IV PRN (09:43)
[2020-04-14] MEDS ORDERED: HEPARIN SOD (PORCINE) 1000 UNIT/ML 10 ML VIAL IV ONE (09:43)
[2020-04-14] MEDS: SEVELAMER HCL 800 MG TABLET PO SCH ×3 (10:08→17:39)
[2020-04-14] MEDS: glipiZIDE ER 2.5 MG TABCR PO SCH (10:08)
[2020-04-14] MEDS: CITALOPRAM 20 MG TAB PO SCH ×2 (10:08→20:45)
[2020-04-14] MEDS: levETIRAcetam 500 MG TAB PO SCH (10:09)
[2020-04-14] MEDS: CLOPIDOGREL BISULFATE 75 MG TAB PO SCH (10:09)
[2020-04-14] MEDS: NEPHROCAPS PO SCH (10:09)
[2020-04-14] MEDS: POLYETHYLENE (MIRALAX) 17 GM PACK PO SCH (10:09)
[2020-04-14] MEDS: METOPROLOL TARTRATE 50 MG TAB PO SCH ×2 (10:09→20:45)
[2020-04-14] MEDS: ISOSORBIDE MONO EXTENDED REL 60 MG TABCR PO SCH (10:09)
[2020-04-14] MEDS: FAMOTIDINE 40 MG TABLET PO SCH ×2 (10:09→20:44)
--- NOTE | 2020-04-14 11:11 | Medical Student Progress Note ---
Date of Service April 14, 2020 Assessment & Plan (1) Chest pain: Patient is 74-year-old male with a complex past medical history who presented to the ED on 04/13 with complaints of chest pain and SOB earlier in the day. Patient is not oriented, difficult to arouse, and hypoxic. Chest pain/elevated troponin - Patient without any chest pain symptoms - Admission EKG: sinus with 1st degree AV block with PVCs/fusion complexes, diffuse nonspecific T wave abnormality - Troponins 0.354 (04/14 AM), 0.084 (admission) -- typically elevated. Continue to trend q6 x 1. - Morphine nitroglycerin ordered as needed chest pain - Low concern for ACS. Hypoxia - 86% O2 saturation on room air in ED. Patient with no home O2 needs. - likely from fluid overload Acute on chronic Diastolic CHF - CXR: Congestive heart failure with bilateral pleural effusions - Fluid management per nephro Abnormal EKG - Telemetry: ? AFib in 70s/80s (04/14 morning); Admission EKG with interspersed fusion complexes. - Will get 12 lead in am. ESRD on hemodialysis - Appreciate nephrology consult - No acute need for hemodialysis without any significant electrolyte abnormalities - Last hemodialysis session: Saturday. 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 presented with chest pain- chronic mild troponin elevation. no concern of ACS noted to be hypoxic and fluid overloaded - nephrology to manage fluid balance if stable - anticipate d/c home in am Subjective Patient is a 74 y/o male with a complex PMHx who reported to the ED on 04/13 with chest pain and occasional shortness of breath having occurred earlier in the evening. EMS was called and his symptoms had resolved upon their arrival to his home. En route, patient endorsed increased shortness of breath and generalized pain. Of note, he just received an AV fistula in his left arm on 04/05. When speaking with his nurse, she mentioned that he had been combative and agitated earlier this morning, requiring him to receive 2.5 mg Haloperidol at 0300. He was able to fall asleep around 0600. This morning, patient is subdued, difficult to arouse, relatively unresponsive to questioning, and could not state why he was in the hospital. He denied any chest pain, shortness of breath, and cough. Review of Systems Respiratory: no cough Cardiovascular: no chest pain, no dyspnea and no palpitations Gastrointestinal: no abdominal pain Physical Exam Constitutional: WD/WN, vitals as above + thin and + lethargic; no acute distress ENMT: nasal cannula in place Respiratory: normal respiratory effort, lungs clear to auscultation no respiratory distress, no cough, no grunting and no nasal flaring Auscultation: lungs clear to auscultation bilaterally; no crackles, no rales, no rhonchi and no wheezes Cardiovascular: Rate/Rhythm: regular rate and regular rhythm Heart Sounds: no gallop, no murmur and no cardiac rub Extremities: no edema Chest (Breasts): Chest: + vascular access device or port (Permacath in R anterior chest) Gastrointestinal (Abdomen): Inspection/Auscultation: normal bowel sounds Percussion/Palpation: abdomen nontender and no guarding Skin: + ecchymosis (R arm) and + fistulous tract (LUE) Neurologic: awake (difficult to arouse) and + confused Psychiatric: Orientation: alert Insight: + poor insight Results & Data ([place]) Vital Signs (Past 12 Hours) Vital Signs Temp Pulse Pulse Resp BP BP BP 04/14/20 07:13 36.7 C 95 H 16 153/90 H 04/14/20 05:33 96 H 04/14/20 05:13 36.9 C 98 H 22 155/95 H 04/14/20 03:29 36.9 C 98 H 22 155/95 H 04/14/20 02:00 18 161/101 H 04/14/20 01:03 89 18 167/101 H 04/13/20 23:13 04/13/20 23:03 37.1 C 100 H 18 156/105 H Pulse Ox 04/14/20 07:13 90 04/14/20 05:33 04/14/20 05:13 92 04/14/20 03:29 92 04/14/20 02:00 95 04/14/20 01:03 86 L 04/13/20 23:13 97 04/13/20 23:03 90
--- NOTE | 2020-04-14 11:35 | Nephrology Consultation ---
Date of Consultation April 14, 2020 Assessment & Plan (1) End stage renal failure on dialysis: * Will provide HD today for 3 L UF and plan on HD tomorrow to maintain regular MWF schedule * Outpatient HD - MWF [facility], Dr. Maxwell 3.5hr 2K 2Ca 1.0Mg F-180NR outpatient EDW 60 kg. May need to reassess EDW * Protect L upper arm AVF as future dialysis access (2) Chest pain: * Resolved * Trend troponin * Consider titration of Isosorbide if BP will allow History of Present Illness Reason for Consultation: ESRD on HD Attending Physician: Rani Walter MD History of Present Illness Mr. Mata is a 74 year old white male who is seen at the request of Dr. Walter to provide inpatient HD during his hospitalization. Mr. Mata cannot provide any details of his medical history due to expressive aphasia. All medical information has been obtained from the EMR. Medical records were reviewed today and are summarized as follows: Mr. Mata has ESRD due to vascular disease. He dialyzes MWF at [facility] (3.5hr 3K 2.5Ca 1.0Mg F-180NR EDW 60kg). 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 Mr. Mata underwent transposition of his L upper arm AVF 04/05/[address] Boyd. He was last dialyzed via his IJ THC yesterday as an outpatient without complication. Yesterday evening Mr. Mata c/o chest discomfort. This resolved by the time EMS arrived. In the ED ECG was negative for ischemic change. Troponin was mildly elevated c/w ESRD. CXR revealed moderate CHF. Mr. Mata was noted to be hypoxic on RA. Oxygen was applied and Mr. Mata admitted for ongoing medical management Allergies Allergy/AdvReac Type Severity Reaction Status Date / Time adhesive Allergy Unknown BLISTERING Verified 04/14/20 00:04 OF SKIN latex Allergy Unknown Rash Verified 04/14/20 00:04 Home Medications Home Medications Medication Instructions Recorded Confirmed Type Renal Caps 1 cap PO QAM #30 cap 11/20/19 04/14/20 Rx polyethylene glycol 3350 [Miralax] 17 gm PO DAILY #0 ea 12/04/19 04/14/20 Rx hydrocortisone 2.5 % topical cream 1 appln MD DAILY PRN #28 gm 12/10/19 04/14/20 Rx with perineal applicator sennosides 8.6 mg tablet 8.6 mg PO QPM PRN #30 tab 12/31/19 04/14/20 Rx nitroglycerin [Nitrostat] 0.4 mg SL UD PRN 02/08/20 04/14/20 History sevelamer HCl [Renagel] 800 mg PO AC 02/08/20 04/14/20 History atorvastatin [Lipitor] 80 mg PO HS 02/18/20 04/13/20 History calcitriol [Rocaltrol] 0.25 mcg PO 3XWK 02/18/20 04/13/20 History clopidogrel [Plavix] 75 mg PO DAILY 02/18/20 04/13/20 History levetiracetam [Keppra] 500 mg PO 4XWK 02/18/20 04/14/20 History famotidine 40 mg tablet 40 mg PO BID #180 tab 03/01/20 04/13/20 Rx amlodipine [Norvasc] 2.5 mg PO QPM #0 tab 03/06/20 04/13/20 Rx metoprolol tartrate 50 mg PO BID 03/14/20 04/13/20 History citalopram 20 mg PO QAM 03/29/20 04/13/20 History oxycodone-acetaminophen [Percocet] 1 tab PO Q6H PRN #20 tab 04/05/20 04/14/20 Rx citalopram 10 mg PO HS 04/13/20 04/13/20 History docusate sodium [Stool Softener] 100 mg PO DAILY PRN 04/13/20 04/13/20 History glipizide 2.5 mg PO DAILY 04/13/20 04/13/20 History isosorbide mononitrate 60 mg PO DAILY 04/13/20 04/14/20 History Patient History Medical History Benign prostatic hyperplasia CAD (coronary artery disease) s/p CABG 2007 Carotid artery stenosis s/p remote R & L endarterectomies with L re-occlusion sometime before 2010. Being monitored by [facility] neuro, on Plavix. Chronic kidney disease Congestive heart failure (CHF) Depression Diabetes mellitus, type 2 A1C 5.4% 11/2019. Not on any medication. Diabetic peripheral neuropathy Esophageal reflux Flash pulmonary edema 11/2019 [facility]od[facility] 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 (1 YEAR AFTER UT) ? Hyperlipidemia Hypertension Memory problem PT REPORTS "[facility]" "COMES AND GOES" Myocardial Infarction 1989? Renal artery stenosis s/p left renal artery stenting; moderate right renal artery stenosis but no significant left renal artery stenosis on 11/2019 duplex Seizure disorder Stable on Keppra, no seizure for "a long time." Follows with [facility] neurology. SNHL (sensorineural hearing loss) Surgical History History of aorto-femoral bypass History of bypass graft (non vein) Aortic-femoral or bifemoral History of carotid endarterectomy L 1998, R 2009 History of cataract surgery RT/LEFT History of colonoscopy History of esophagogastroduodenoscopy (EGD) History of tooth extraction History of vascular access device IJ FOR DIAYLSIS S/P CABG (coronary artery bypass graft) (2007) [facility] Family History Brother Hypertension Hypercholesteremia Sister Diabetes Unknown Hypertension Cardiac disorder Social History Smoking Status: Former smoker Cigarettes Per Day: 30; Second Hand Exposure: No; Do You Dip or Chew Tobacco: No; Tobacco Cessation Education Requested by Patient: No Hx Alcohol Use: No Hx Substance Use: No Preferred Language: Jordanian Communication Ability: Effective Visual Impairment: No Limitations Medical Administrator Required: No Beliefs That Will Affect Care: None marital status: Current Living Situation: Spouse Current Living Situation Comment: in an apartment per Other Information That Helps Us Care for You: No Feels Safe at Home: Yes Safety Concerns: Feels Safe At This Time caffeine: No Seatbelt Use: always Review of Systems Review of Systems: Unobtainable due to cognitive status Physical Exam Constitutional: + frail appearing; not in distress Eyes: PERRL, conjunctivae normal, anicteric sclerae ENMT: external ear and nose normal, oropharynx normal Neck: trachea midline, no thyromegaly (IJ THC with clean dry dressing in place) Respiratory: normal respiratory effort Auscultation: + rales Cardiovascular: Rate/Rhythm: regular rate and regular rhythm Extremities: + edema (1+ LE swelling) and + AV fistula (+ bruit. Surgical bandage in place) Gastrointestinal (Abdomen): normal bowel sounds, soft, nontender, no hepatosplenomegaly Musculoskeletal: Extremities: no cyanosis Skin: no rashes, warm and dry Neurologic: awake; not confused Results & Data Vital Signs (Past 12 Hours) Vital Signs Temp Pulse Pulse Resp BP BP BP 04/14/20 07:13 36.7 C 95 H 16 153/90 H 04/14/20 05:33 96 H 04/14/20 05:13 36.9 C 98 H 22 155/95 H 04/14/20 03:29 36.9 C 98 H 22 155/95 H 04/14/20 02:00 18 161/101 H 04/14/20 01:03 89 18 167/101 H Pulse Ox 04/14/20 07:13 90 04/14/20 05:33 04/14/20 05:13 92 04/14/20 03:29 92 04/14/20 02:00 95 04/14/20 01:03 86 L Laboratory Results Laboratory Tests 04/13/20 04/13/20 04/14/20 23:37 23:37 06:51 WBC 9.23 Hgb 12.1 L Hct 40.7 L Plt Count 348 Sodium 139 Potassium 3.7 Chloride 98 Carbon Dioxide 31 BUN 33 H Creatinine 3.24 H Glucose 130 H Troponin I 0.084 H* 0.354 H* Albumin 3.2 L PG Care Time/CCT Total # of Minutes Spent Total Time Spent with Patient: Total time spent is greater than 50% in coordination of care (as documented) at patient's floor/unit and/or counseling patient: Coding Level of Care Code 34211 Inpt Consult Level 5 Diagnoses End stage renal failure on dialysis N18.6; Z99.2 Chest pain R07.2 Chest pain type: precordial pain (1) Chest pain Chest pain type: precordial pain Qualified Code(s): R07.2 - Precordial pain
[2020-04-14] MEDS: ATORVASTATIN 40 MG TAB PO SCH (20:45)
[2020-04-14] MEDS: AMLODIPINE BESYLATE 5 MG TAB PO SCH (20:45)
[2020-04-15 02:37] LABS: Basophils # (auto) 0.01 K/uL (0-0.2); Basophils % (auto) 0.1 %; Eosinophils # (auto) 0.02 K/uL (0-0.5); Eosinophils % (auto) 0.1 %; Hematocrit (blood only) 36.4 % (42-52); Hemoglobin 11.3 g/dL (14.0-18.0); Immature Granulocytes # (auto) 0.04 K/uL (0.00-0.02); Immature Granulocytes % (auto) 0.3 %; Lymphocytes # (auto) 1.03 K/uL (1.2-3.4); Lymphocytes % (auto) 7.2 %; Mean Corpuscular Hemoglobin 29.8 pg (25-34); Mean Platelet Volume 10.7 fL (7.4-10.4); Monocytes # (auto) 1.51 K/uL (0.11-0.59); Monocytes % (auto) 10.5 %; Neutrophils # (auto) 11.75 K/uL (1.4-6.5); Neutrophils % (auto) 81.8 %; Nucleated RBC # (auto) 0.04 K/uL (0-0); Nucleated RBC % (auto) 0.3 %; Platelet Count 257 K/uL (130-400); RDW Coefficient of Variation 20.4 % (11.5-14.5); RDW Standard Deviation 71.1 fL (36.4-46.3); Red Blood Count 3.79 M/uL (4.7-6.1); White Blood Count 14.36 K/uL (4.8-10.8)
[2020-04-15 03:09] LABS: BUN Creatinine Ratio 8.4 (10-20); Calcium 8.8 mg/dl (8.5-10.1); Creatinine Clr Calc Pharmacy 18.3 ml/min; Est GFR (African American) 23.8; Est GFR (Non-African American) 20.5; Potassium 4.3 mmol/L (3.5-5.1)
[2020-04-15 03:13] LABS: Anisocytosis Present; Echinocytes 1+; Ovalocytes 1+; Polychromasia 1+
--- NOTE | 2020-04-15 06:59 | XRay Report ---
XR chest 1V portable HISTORY: 74 years-old Male CHF acute shortness of breath with congestive heart failure COMPARISON: Chest radiograph 04/13/2020 TECHNIQUE: Portable AP view of the chest FINDINGS: Cardiac silhouette is enlarged, unchanged. Prior median sternotomy. Right IJ dual-lumen hemodialysis catheter is noted with distal tip terminating in the expected location of the superior right atrium. Small pleural effusions. No pneumothorax. Pulmonary vascular congestion with mildly progressed reticu lar opacities. Superimposed airspace opacities are present within the mid and lower lung zones, also progressed. Bones appear grossly intact. Multiple skin akhil are noted within the medial left upper extremity. IMPRESSION: 1. Cardiomegaly with progressively worsened pulmonary edema. 2. Small pleural effusions with bibasilar predominant consolidation. ACT 112: Negative or not required by law. The above report was generated using voice recognition software. It may contain grammatical, syntax o r spelling errors. Electronically signed by: Romel May M.D. 04/15/2020 6:58 AM
[2020-04-15] MEDS ORDERED: SODIUM CHLORIDE 0.9% 1000ML 1,000 ML IV PRN (07:00)
[2020-04-15] MEDS ORDERED: HEPARIN SOD (PORCINE) 1000 UNIT/ML 10 ML VIAL IV ONE (07:00)
[2020-04-15] MEDS: CITALOPRAM 20 MG TAB PO SCH ×2 (08:23→20:14)
[2020-04-15] MEDS: NEPHROCAPS PO SCH (08:24)
[2020-04-15] MEDS: SEVELAMER HCL 800 MG TABLET PO SCH ×3 (08:24→17:00)
[2020-04-15] MEDS: METOPROLOL TARTRATE 50 MG TAB PO SCH (08:24)
[2020-04-15] MEDS: FAMOTIDINE 40 MG TABLET PO SCH ×2 (08:25→20:14)
[2020-04-15] MEDS: ISOSORBIDE MONO EXTENDED REL 60 MG TABCR PO SCH (08:25)
[2020-04-15] MEDS: glipiZIDE ER 2.5 MG TABCR PO SCH (08:25)
[2020-04-15] MEDS: CLOPIDOGREL BISULFATE 75 MG TAB PO SCH (08:25)
[2020-04-15] MEDS: POLYETHYLENE (MIRALAX) 17 GM PACK PO SCH (08:26)
[2020-04-15] MEDS ORDERED: CALCITRIOL 0.25 MCG CAPSULE PO SCH (09:00)
--- NOTE | 2020-04-15 10:02 | Nephrology Progress Note ---
Date of Service April 15, 2020 Assessment & Plan (1) End stage renal failure on dialysis: * Will provide HD today for 2 L UF to maintain regular MWF schedule * Outpatient HD - MWF [facility] Dr. Hans Liu 3.5hr 2K 2Ca 1.0Mg F-180NR outpatient EDW 60 kg. May need to reassess EDW * Protect L upper arm AVF as future dialysis access (2) Chest pain: * Troponin trending up * Consider titration of Isosorbide if BP will allow * Recommend consultation w/ Cardiology Admission and Anticipated Discharge Date Admission Date: April 14, 2020 Subjective Mr. Mata was seen & examined in his hospital room this morning. He was dialyzed yesterday for 2.2 L UF and now reports that his breathing is improved. Mr. Mata denies chest discomfort. Review of Systems Review of Systems: Unobtainable due to cognitive status Physical Exam Constitutional: + frail appearing; not in distress Eyes: PERRL, conjunctivae normal, anicteric sclerae ENMT: external ear and nose normal, oropharynx normal Neck: trachea midline, no thyromegaly (IJ THC with clean dry dressing in place) Respiratory: normal respiratory effort Auscultation: + rales Cardiovascular: Rate/Rhythm: regular rate and regular rhythm Extremities: + edema (trace LE swelling) and + AV fistula (+ bruit. Surgical bandage in place) Gastrointestinal (Abdomen): normal bowel sounds, soft, nontender, no hepatosplenomegaly Musculoskeletal: Extremities: no cyanosis Skin: no rashes, warm and dry Neurologic: awake; not confused Results & Data ([facility]) Vital Signs (Past 12 Hours) Vital Signs Temp Pulse Pulse Resp BP Pulse Ox 04/15/20 07:44 37.1 C 76 18 115/70 94 04/15/20 07:24 72 04/15/20 05:45 81 04/15/20 03:09 36.9 C 79 19 138/80 98 04/15/20 00:00 77 04/14/20 23:39 36.5 C 81 21 110/77 100 Laboratory Tests 04/13/20 04/14/20 04/15/20 23:37 06:51 02:26 WBC 14.36 H Hgb 11.3 L Hct 36.4 L Plt Count 257 Sodium Potassium Chloride Carbon Dioxide BUN Creatinine Glucose Troponin I 0.084 H* 0.354 H* 07/31/20 07/31/20 02:26 07:00 WBC Hgb Hct Plt Count Sodium 141 Potassium 4.3 D Chloride 106 Carbon Dioxide 28 BUN 24 H Creatinine 2.88 H D Glucose 135 H Troponin I 5.440 H* PG Care Time/CCT Total # of Minutes Spent Total Time Spent with Patient: Total time spent is greater than 50% in coordination of care (as documented) at patient's floor/unit and/or counseling patient: Coding Diagnoses End stage renal failure on dialysis N18.6; Z99.2 Chest pain R07.2 Chest pain type: precordial pain (1) Chest pain Chest pain type: precordial pain Qualified Code(s): R07.2 - Precordial pain
--- NOTE | 2020-04-15 14:20 | Medical Student Progress Note ---
Date of Service April 15, 2020 Assessment & Plan (1) Chest pain: Patient is 74-year-old male with a complex past medical history who presented to the ED on 04/13 with complaints of chest pain and SOB earlier in the day. Patient is looking much better today, still not oriented, difficult to elena use, and hypoxic. Chest pain/elevated troponin - Patient with mild chest pain symptoms today - Admission EKG: sinus with 1st degree AV block with PVCs/fusion complexes, diff use nonspecific T wave abnormality - Telemetry on 04/14: ? AFib 70s/80s - Troponin: 5.440 (04/15 AM), 0.354 (04/14 AM), 0.084 (admission) - Consulted Cardiology due to telemetry findings and elevated troponin - medical management - Morphine nitroglycerin ordered as needed chest pain Acute on Chronic Diastolic CHF - CXR: Cardiomegaly, worsened pulmonary edema with bilateral pleural effusions - Nephrology consulted for fluid management Hypoxia - 86% O2 saturation on room air in ED. Patient with no home O2 needs. - Patient currently requiring 2 L nasal cannula. Assessing home O2 needs as above ESRD on hemodialysis - Appreciate nephrology consult - Received Dialysis on 04/14 and 04/15 to maintain regular MWF schedule - Renal diet - Continue sevelamer 800 mg PO AC Leukocytosis - WBC: 14.36 (9.23 on 04/14) - Patient does not appear septic, noting stable vitals and hemodynamically stability - follow CBC in am History of CVA with residual deficit/HTN/CAD/PAD - Right-sided residual deficits s/p left MCA ischemic stroke - History of [place] in early with CABG - History of iliofemoral bypass - Chronic left ICA occlusion known since 2010 - Continue metoprolol, Plavix, atorvastatin, amlodipine, losartan, Imdur Expressive aphasia - Noted, secondary to CVA 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 mentation clear today. breathing better after dialysis. noted elevated troponin - cardio consulted noted elevated wbc - no fever, or other sign of infection. follow. Subjective Overall, patient is doing much better today compared to 04/14. Patient is responsive and is in a good mood.Patient and his speak about some chest pain he's been experiencing, but denies shortness of breath. His wanted to speak with us regarding home O2 needs since the patient is doing so much better with O2 supplementation while inpatient. Review of Systems Constitutional: no fever, no chills and no anorexia Respiratory: + pain on inspiration (generalized chest pain); no cough and no dyspnea Cardiovascular: + chest pain at rest (generalized); no dyspnea Physical Exam Constitutional: well developed, well nourished, + thin, cooperative and comfortable; no acute distress Eyes: + anicteric sclerae Neck: normal visual inspection Respiratory: no respiratory distress, no cough, no grunting and no nasal flaring Chest (Breasts): Chest: + vascular access device or port (Permacath in R anterior chest) Skin: + ecchymosis (R arm) and + fistulous tract (LUE) Neurologic: awake Speech / Cognition: + expressive aphasia (secondary to prior CVA) Psychiatric: Orientation: alert, oriented to person and oriented to place; + not oriented to time Affect: euthymic affect Results & Data ([facility]) Vital Signs (Past 12 Hours) Vital Signs Temp Pulse Pulse Pulse Resp BP BP 04/15/20 12:38 37.0 C 75 75 121/79 121/79 04/15/20 12:20 72 130/79 04/15/20 12:00 73 130/79 04/15/20 11:40 57 L 118/75 04/15/20 11:20 74 157/70 H 04/15/20 11:00 72 113/71 04/15/20 10:40 43 L 104/63 04/15/20 10:20 68 106/69 04/15/20 10:00 49 L 112/64 04/15/20 09:37 37.2 C 73 73 116/68 04/15/20 07:44 37.1 C 76 18 115/70 04/15/20 07:24 72 04/15/20 05:45 81 04/15/20 03:09 36.9 C 79 19 138/80 Pulse Ox 04/15/20 12:38 04/15/20 12:20 04/15/20 12:00 04/15/20 11:40 04/15/20 11:20 04/15/20 11:00 04/15/20 10:40 04/15/20 10:20 04/15/20 10:00 04/15/20 09:37 04/15/20 07:44 94 04/15/20 07:24 04/15/20 05:45 04/15/20 03:09 98
--- NOTE | 2020-04-15 17:14 | Cardiology Consultation ---
Date of Consultation April 15, 2020 Assessment & Plan (1) Chest pain: He has chest pain, he is elevated cardiac enzymes and he has known coronary disease. I suspect his chest pain is cardiac in nature, however it may be due to demand ischemia with his combination of hypoxia and fluid overload. For the moment I would recommend conservative treatment, however if he continues to have difficulty with chest pain we may be forced to consider invasive evaluation. (2) CAD (coronary artery disease): He has chest discomfort has had bypass surgery before. He could have had progression, but I would try to manage medically if possible. (3) Volume overload: He presented with volume overload and is had dialysis, he has diastolic dysfunction which is probably not the primary cause of his presentation but prob ably contributes to his heart failure. Volume management via dialysis. (4) Second degree AV block, Mobitz type I: He has second-degree AV block, as well as marked first-degree AV block at other times. He has not had bradycardia to my knowledge. Although his beta- amrit may be beneficial to his coronary artery disease I think we should stop it given his second-degree AV block. I would try to treat his blood pressure with medications which should not affect AV conduction. At the moment there is no clear indication for a pacemaker. History of Present Illness Reason for Consultation: Chest pain Attending Physician: Rani Walter MD History of Present Illness This is a 74-year-old male who has a history of end-stage renal disease on hemodialysis. 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 He has a history of epilepsy, depression. He came into the emergency room on April 13, 2020 with a complaint of chest pain, apparently EMS was called for chest pain. He also complained of shortness of breath in route to the hospital. He was noted to be hypoxic but has had no further chest discomfort to my knowledge. An echocardiogram November 17, 2019 showed mild left ventricular hypertrophy and a normal left ventricular ejection fraction. His initial electrocardiogram shows sinus rhythm with second-degree AV block and PVCs. A subsequent electrocardiogram on April 15, 2020 shows sinus rhythm with first-degree AV block, the TN interval is approaching 400 ms and is buried in the T wave. Another electrocardiogram done a short time later shows sinus rhythm with second-degree AV block. His troponin on presentation was 0.084, about 7 hours later it was 0.354 and 24 hours after that it was 5.4. A chest x- ray on presentation shows pulmonary edema. Allergies Allergy/AdvReac Type Severity Reaction Status Date / Time adhesive Allergy Unknown BLISTERING Verified 04/14/20 00:04 OF SKIN latex Allergy Unknown Rash Verified 04/14/20 00:04 Home Medications Home Medications Medication Instructions Recorded Confirmed Type Renal Caps 1 cap PO QAM #30 cap 11/20/19 04/14/20 Rx polyethylene glycol 3350 [Miralax] 17 gm PO DAILY #0 ea 12/04/19 04/14/20 Rx hydrocortisone 2.5 % topical cream 1 appln TN DAILY PRN #28 gm 12/10/19 04/14/20 Rx with perineal applicator sennosides 8.6 mg tablet 8.6 mg PO QPM PRN #30 tab 12/31/19 04/14/20 Rx nitroglycerin [Nitrostat] 0.4 mg SL UD PRN 02/08/20 04/14/20 History sevelamer HCl [Renagel] 800 mg PO AC 02/08/20 04/14/20 History atorvastatin [Lipitor] 80 mg PO HS 02/18/20 04/13/20 History calcitriol [Rocaltrol] 0.25 mcg PO 3XWK 02/18/20 04/13/20 History clopidogrel [Plavix] 75 mg PO DAILY 02/18/20 04/13/20 History levetiracetam [Keppra] 500 mg PO 4XWK 02/18/20 04/14/20 History famotidine 40 mg tablet 40 mg PO BID #180 tab 03/01/20 04/13/20 Rx amlodipine [Norvasc] 2.5 mg PO QPM #0 tab 03/06/20 04/13/20 Rx metoprolol tartrate 50 mg PO BID 03/14/20 04/13/20 History citalopram 20 mg PO QAM 03/29/20 04/13/20 History oxycodone-acetaminophen [Percocet] 1 tab PO Q6H PRN #20 tab 04/05/20 04/14/20 Rx citalopram 10 mg PO HS 04/13/20 04/13/20 History docusate sodium [Stool Softener] 100 mg PO DAILY PRN 04/13/20 04/13/20 History glipizide 2.5 mg PO DAILY 04/13/20 04/13/20 History isosorbide mononitrate 60 mg PO DAILY 04/13/20 04/14/20 History Patient History Medical History Benign prostatic hyperplasia CAD (coronary artery disease) s/p CABG 2007 Carotid artery stenosis s/p remote R & L endarterectomies with L re-occlusion sometime before 2010. Being monitored by [facility] neuro, on Plavix. Chronic kidney disease Congestive heart failure (CHF) Depression Diabetes mellitus, type 2 A1C 5.4% 11/2019. Not on any medication. Diabetic peripheral neuropathy Esophageal reflux Flash pulmonary edema 11/2019 Hemodialysis patient SAT/SAT/SATURDAY [facility] 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 (1 YEAR AFTER MT) ? Hyperlipidemia Hypertension Memory problem PT REPORTS "DEMENTIA" "COMES AND GOES" Myocardial Infarction 1989? Renal artery stenosis s/p left renal artery stenting; moderate right renal artery stenosis but no significant left renal artery stenosis on 11/2019 duplex Seizure disorder Stable on Keppra, no seizure for "a long time." Follows with [facility] neurology. SNHL (sensorineural hearing loss) Surgical History History of aorto-femoral bypass History of bypass graft (non vein) Aortic-femoral or bifemoral History of carotid endarterectomy L 1998, R 2009 History of cataract surgery RT/LEFT History of colonoscopy History of esophagogastroduodenoscopy (EGD) History of tooth extraction History of vascular access device IJ FOR DIAYLSIS S/P CABG (coronary artery bypass graft) (2007) [facility] Family History Brother Hypertension Hypercholesteremia Sister Diabetes Unknown Hypertension Cardiac disorder Social History Smoking Status: Former smoker Cigarettes Per Day: 30; Second Hand Exposure: No; Do You Dip or Chew Tobacco: No; Tobacco Cessation Education Requested by Patient: No Hx Alcohol Use: No Hx Substance Use: No Preferred Language: Y[place]ut Communication Ability: Impaired Visual Impairment: No Limitations Shampooer Required: No Beliefs That Will Affect Care: None marital status: Current Living Situation: Spouse Current Living Situation Comment: in an apartment per Other Information That Helps Us Care for You: No Feels Safe at Home: Yes Safety Concerns: Feels Safe At This Time caffeine: No Seatbelt Use: always Review of Systems Review of Systems: His review of systems is currently negative but may not be reliable. Physical Exam Physical Exam: Constitutional: Alert, cooperative and in no distress. HEENT: Unremarkable Neck: No jugular venous distention, carotid pulses are normal and equal bilaterally without bruits. Pulmonary: Basilar crackles on auscultation bilaterally. Cardiac: Regular rhythm with no murmur, gallop or rub. Abdomen: Soft, nontender with normal bowel sounds. Extremities: +1 bilateral pretibial edema. Distal pulses intact. Neurologic: Right-sided weakness. Skin: No rash, ecchymoses or petechiae. Results & Data ([facility]) Vital Signs (Past 12 Hours) Vital Signs Temp Pulse Pulse Pulse Resp BP BP 04/15/20 12:38 37.0 C 75 75 121/79 121/79 04/15/20 12:20 72 130/79 04/15/20 12:00 73 130/79 04/15/20 11:40 57 L 118/75 04/15/20 11:20 74 157/70 H 04/15/20 11:00 72 113/71 04/15/20 10:40 43 L 104/63 04/15/20 10:20 68 106/69 04/15/20 10:00 49 L 112/64 04/15/20 09:37 37.2 C 73 73 116/68 04/15/20 07:44 37.1 C 76 18 115/70 04/15/20 07:24 72 04/15/20 05:45 81 04/15/20 03:09 36.9 C 79 19 138/80 Pulse Ox 04/15/20 12:38 04/15/20 12:20 04/15/20 12:00 04/15/20 11:40 04/15/20 11:20 04/15/20 11:00 04/15/20 10:40 04/15/20 10:20 04/15/20 10:00 04/15/20 09:37 04/15/20 07:44 94 04/15/20 07:24 04/15/20 05:45 04/15/20 03:09 98 Laboratory Results Cardiac Enzymes 04/15/20 Range/Units 07:00 Troponin I 5.440 H* (0-0.045) ng/ml CBC 04/15/20 Range/Units 02:26 WBC 14.36 H (4.8-10.8) K/uL RBC 3.79 L (4.7-6.1) M/uL Hgb 11.3 L (14.0-18.0) g/dL Hct 36.4 L (42-52) % Plt Count 257 (130-400) K/uL Neut # (Auto) 11.75 H (1.4-6.5) K/uL Lymph # (Auto) 1.03 L (1.2-3.4) K/uL [place] # (Auto) 1.51 H (0.11-0.59) K/uL Eos # (Auto) 0.02 (0-0.5) K/uL Baso # (Auto) 0.01 (0-0.2) K/uL Comprehensive Metabolic Panel 04/15/20 Range/Units 02:26 Sodium 141 (136-145) mmol/L Potassium 4.3 D (3.5-5.1) mmol/L Chloride 106 (98-107) mmol/L Carbon Dioxide 28 (21-32) mmol/L BUN 24 H (7-18) mg/dl Creatinine 2.88 H D (0.6-1.4) mg/dl Glucose 135 H (70-99) mg/dl Calcium 8.8 (8.5-10.1) mg/dl Intake and Output 04/15/20 04/15/20 04/15/20 06:59 14:59 22:59 Output Total 2 / 2 Balance -2 / -2 Output: # Bowel Movements 2 / 2 Other: Hemodialysis Ultrafiltration 2,000 Amount Other Intake Source sips Weight 57.4 kg Patient Weight 04/16/20 06:59 Weight 57.4 kg Diagnostic Findings Telemetry: Sinus rhythm with marked first-degree AV block and periods of Mobitz 1 second-degree AV block. No high-grade AV block. No atrial fibrillation identified. PG Care Time/CCT Total # of Minutes Spent Total Time Spent with Patient: Total time spent is greater than 50% in coordination of care (as documented) at patient's floor/unit and/or counseling patient: Coding Level of Care Code 15022 Initial Inpt Care Lvl 3 Diagnoses Chest pain R07.2 Chest pain type: precordial pain CAD (coronary artery disease) I25.10 Associated angina: without angina Coronary Disease-Associated Artery/Lesion type: [place] artery [place] vs. transplanted heart: [place] heart Volume overload E87.79 Hypervolemia type: other Second degree AV block, Mobitz type I I44.1 (1) CAD (coronary artery disease) Associated angina: without angina Coronary Disease-Associated Artery/Lesion type: [place] artery [place] vs. transplanted heart: [place] heart Qualified Code(s): I25.10 - Atherosclerotic heart disease of [place] coronary artery without angina pectoris (2) Chest pain Chest pain type: precordial pain Qualified Code(s): R07.2 - Precordial pain (3) Volume overload Hypervolemia type: other Qualified Code(s): E87.79 - Other fluid overload
--- NOTE | 2020-04-15 18:58 | Hospitalist Progress Note ---
Date of Service April 15, 2020 Assessment & Plan Admission and Anticipated Discharge Date Admission Date: April 14, 2020 Results & Data Results & Data ([facility]) Vital Signs (Past 12 Hours) Vital Signs Temp Pulse Pulse Pulse Resp BP BP 04/15/20 15:38 75 04/15/20 15:09 36.5 C 60 18 108/78 04/15/20 12:38 37.0 C 75 75 121/79 121/79 04/15/20 12:20 72 130/79 04/15/20 12:00 73 130/79 04/15/20 11:40 57 L 118/75 04/15/20 11:20 74 157/70 H 04/15/20 11:00 72 113/71 04/15/20 10:40 43 L 104/63 04/15/20 10:20 68 106/69 04/15/20 10:00 49 L 112/64 04/15/20 09:37 37.2 C 73 73 116/68 04/15/20 07:44 37.1 C 76 18 115/70 04/15/20 07:24 72 Pulse Ox 04/15/20 15:38 04/15/20 15:09 96 04/15/20 12:38 04/15/20 12:20 04/15/20 12:00 04/15/20 11:40 04/15/20 11:20 04/15/20 11:00 04/15/20 10:40 04/15/20 10:20 04/15/20 10:00 04/15/20 09:37 04/15/20 07:44 94 04/15/20 07:24
[2020-04-15] MEDS: AMLODIPINE BESYLATE 5 MG TAB PO SCH (20:15)
[2020-04-15] MEDS: ATORVASTATIN 40 MG TAB PO SCH (20:15)
[2020-04-16 06:48] LABS: Hematocrit (blood only) 40.4 % (42-52); Hemoglobin 12.3 g/dL (14.0-18.0); Mean Corpuscular Hemoglobin 29.6 pg (25-34); Mean Corpuscular Hgb Conc 30.4 g/dL (32-36); Mean Corpuscular Volume 97.3 fL (80-100); Mean Platelet Volume 10.7 fL (7.4-10.4); Nucleated RBC # (auto) 0.09 K/uL (0-0); Nucleated RBC % (auto) 0.6 %; Platelet Count 295 K/uL (130-400); RDW Coefficient of Variation 20.6 % (11.5-14.5); RDW Standard Deviation 71.7 fL (36.4-46.3); Red Blood Count 4.15 M/uL (4.7-6.1); White Blood Count 13.95 K/uL (4.8-10.8)
--- NOTE | 2020-04-16 06:58 | Electrocardiogram Report ---
Test Reason : Blood Pressure : / mmHG Vent. Rate : 084 BPM Atrial Rate : 000 BPM P-R Int : 000 ms QRS Dur : 106 ms QT Int : 456 ms P-R-T Axes : 000 -69 157 degrees QTc Int : 538 ms Sinus rhythm with marked 1st degree AV block Left axis deviation Inferior-posterior infarct (cited on or before 03-MAR-2020) Prolonged QT Abnormal ECG When compared with ECG of 14-APR-2020 07:39, T wave inversion no longer evident in Anterior leads T wave inversion now evident in Lateral leads Confirmed by Oli Holguin ([id number]) on 04/16/2020 6:57:37 AM Referred By: REFERRED SELF Confirmed By:Oli Holguin
--- NOTE | 2020-04-16 07:10 | Electrocardiogram Report ---
Test Reason : Blood Pressure : / mmHG Vent. Rate : 064 BPM Atrial Rate : 076 BPM P-R Int : 352 ms QRS Dur : 108 ms QT Int : 636 ms P-R-T Axes : 000 -83 214 degrees QTc Int : 656 ms Sinus rhythm with 2nd degree A-V block (Mobitz I) with intermittent aberrant ventricular conduction Left axis deviation Prolonged QT Abnormal ECG When compared with ECG of 15-APR-2020 06:38, (unconfirmed) Second degree AV block is now present Confirmed by Oli Holguin ([id number]) on 04/16/2020 7:10:36 AM Referred By: REFERRED SELF Confirmed By:Oli Holguin
[2020-04-16 07:17] LABS: BUN Creatinine Ratio 8.4 (10-20); Calcium 9.6 mg/dl (8.5-10.1); Creatinine Clr Calc Pharmacy 14.9 ml/min; Est GFR (African American) 18.8; Est GFR (Non-African American) 16.2; Potassium 4.3 mmol/L (3.5-5.1)
[2020-04-16] MEDS: levETIRAcetam 500 MG TAB PO SCH (09:20)
[2020-04-16] MEDS: FAMOTIDINE 40 MG TABLET PO SCH ×2 (09:20→20:42)
[2020-04-16] MEDS: glipiZIDE ER 2.5 MG TABCR PO SCH (09:21)
[2020-04-16] MEDS: CLOPIDOGREL BISULFATE 75 MG TAB PO SCH (09:21)
[2020-04-16] MEDS: SEVELAMER HCL 800 MG TABLET PO SCH ×3 (09:21→17:31)
[2020-04-16] MEDS: ISOSORBIDE MONO EXTENDED REL 60 MG TABCR PO SCH (09:21)
[2020-04-16] MEDS: CITALOPRAM 20 MG TAB PO SCH ×2 (09:21→20:41)
[2020-04-16] MEDS: NEPHROCAPS PO SCH (09:22)
[2020-04-16] MEDS: POLYETHYLENE (MIRALAX) 17 GM PACK PO SCH (09:22)
--- NOTE | 2020-04-16 11:55 | Nephrology Progress Note ---
Date of Service April 16, 2020 Assessment & Plan (1) ESRD on hemodialysis: ESRD on hemodialysis Saturday, Saturday, Saturday at [facility]. Admitted to the hospital with chest pain, elevated troponin most likely secondary to non STEMI versus demand ischemia. Evaluated by Cardiology and plan for conservative management unless symptom worsen however he has been asymptomatic. Found to be volume overloaded and had to alter filtration with estimated dry weight down to 58 from 60 prior. Had dialysis with successful ultrafiltration and last weight was 56.7. --will plan for 1 extra treatment today to have more ultrafiltration --continue supportive care, avoid IV fluid --hemoglobin above 12, no need for JENSEN at this time --dose meds for GFR < 10 Will follow (2) Second degree AV block, Mobitz type I: (3) Chest pain: (4) Anemia: Admission and Anticipated Discharge Date Admission Date: April 14, 2020 Jesus Rivera was seen and examined this morning with his at bedside. He seems comfortable, denied any symptoms and just wants to go home. Blood pressure acceptable. He required BiPAP last night and currently on 4 liter nasal cannula with saturation 96 percent. Electrolyte acceptable. Had dialysis yesterday with 2 liters UF, weight down to 56.7 with his prior estimated dry weight 60. Review of Systems Review of Systems: All systems reviewed & are unremarkable except as noted in HPI & below Physical Exam Constitutional: well developed and well nourished; no acute distress Respiratory: normal respiratory effort; no respiratory distress Auscultation: + diminished lung sounds Cardiovascular: Rate/Rhythm: regular rate and regular rhythm Heart Sounds: normal S1 and normal S2 Extremities: no edema Neurologic: moves all extremities and awake; not confused Psychiatric: A+Ox3, euthymic affect Results & Data ([facility]) Vital Signs (Past 12 Hours) Vital Signs Temp Pulse Pulse Resp BP Pulse Ox 04/16/20 11:37 36.6 C 81 18 126/79 96 04/16/20 07:52 36.7 C 89 20 157/98 H 99 04/16/20 05:26 87 18 145/89 H 98 04/16/20 04:33 83 18 146/88 H 97 04/16/20 03:43 93 H 26 H 136/83 95 04/16/20 03:35 104 H 26 H 94 04/16/20 03:14 37.4 C 93 H 22 165/98 H 92 PG Care Time/CCT Total # of Minutes Spent Total Time Spent with Patient: Total time spent is greater than 50% in coordination of care (as documented) at patient's floor/unit and/or counseling patient: Coding Level of Care Code 36730 Subseq Hosp Care Lvl 3 Diagnoses ESRD on hemodialysis N18.6; Z99.2 Second degree AV block, Mobitz type I I44.1 Chest pain R07.2 Chest pain type: precordial pain Anemia D64.9 (1) Chest pain Chest pain type: precordial pain Qualified Code(s): R07.2 - Precordial pain
--- NOTE | 2020-04-16 15:38 | Hospitalist Progress Note ---
Date of Service April 16, 2020 Assessment & Plan (1) Chest pain: Patient is 74-year-old male with a complex past medical history who was admitted on 04/13 for acute exacerbation of CHF, improving with dialysis. Overnight patient became hypoxic and was placed on BiPAP. Breathing much improved this morning. Will undergo extra sound of dialysis today. Given overall prognosis, palliative care consulted. Acute on Chronic Diastolic CHF - CXR from 04/15: Cardiomegaly, worsened pulmonary edema with bilateral pleural effusions - BNP not checked on admission - Nephrology consulted for fluid management - home metoprolol d/c due to Mobitz type II AV silvio blockade - daily weights Chest pain/elevated troponin - history of CAD, s/p CABG - Patient with mild chest pain on admission, although denies symptoms today - trop peaked at 5.40, has since downtrended - Admission EKG: sinus with 1st degree AV block with PVCs/fusion complexes, diffuse nonspecific T wave abnormality - thought to be secondary to demand ischemia vs. NSTEMI - Cardiology consulted, recommending medical management - Morphine and nitroglycerin ordered as needed chest pain - continue high intensity statin - continue Plavix Hypoxia - likely secondary to pulmonary vascular congestion - progressive pleural effusions noted on 04/15 CXR - worsened overnight, improved with BiPAP - patient currently satting 96% on 4L via NC - no baseline O2 requirement ESRD on MWF hemodialysis - extra dialysis session today, per nephrology - Dialysis diet - renally dose meds for GFR < 10 - Continue sevelamer 800 mg PO AC Second degree AV block, Mobitz type I: - captured on EKG and cardiac nurse specialist - beta amrit discontinued per cardiology - no indication for pacemaker at present Leukocytosis - WBC: 13 today, down from 14.36 - Patient does not appear septic, afebrile, normal HR and RR - CXR showing no evidence of consolidation - will hold off on antibiotics at this time - follow CBC in am History of CVA with residual deficit/HTN/CAD/PAD - Right-sided residual deficits s/p left MCA ischemic stroke - History of ID in early with CABG - History of iliofemoral bypass - Chronic left ICA occlusion known since 2010 - Continue metoprolol, Plavix, atorvastatin, amlodipine, losartan, Imdur Expressive aphasia - Noted, secondary to past CVA 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 PT/OT ordered. Admission and Anticipated Discharge Date Admission Date: April 14, 2020 Supervising Physician Co-Signing Physician Notes Resident Physician Supervision Note: I independently interviewed and examined the patient and verified the grande history and physical, reviewed labs and image studies, discussed the case with the resident Dr. Carpenter and agree with the findings and care plan. Subjective Overnight Mr. Mata became hypoxic (sats in the 70s). He was placed on biPAP. present at bedside in AM. Says his breathing is good. Review of Systems Review of Systems: All systems reviewed & are unremarkable except as noted in HPI & below Physical Exam Constitutional: WD/WN, vitals as above cooperative and comfortable Eyes: PERRL, conjunctivae normal, anicteric sclerae ENMT: external ear and nose normal, oropharynx normal Neck: normal visual inspection and trachea midline Respiratory: normal respiratory effort; no respiratory distress and no labored breathing Auscultation: + diminished lung sounds (bilateral lung bases ) Cardiovascular: RRR, no murmur, no edema Heart Sounds: normal S1 and normal S2 Gastrointestinal (Abdomen): normal bowel sounds, soft, nontender, no hepatosplenomegaly Skin: no rashes, warm and dry Results & Data Results & Data ([facility]) Vital Signs (Past 12 Hours) Vital Signs Temp Pulse Resp BP Pulse Ox 04/16/20 11:37 36.6 C 81 18 126/79 96 04/16/20 09:30 95 04/16/20 07:52 36.7 C 89 20 157/98 H 99 04/16/20 05:26 87 18 145/89 H 98 04/16/20 04:33 83 18 146/88 H 97 04/16/20 03:43 93 H 26 H 136/83 95 Resident Activity Tracking Resident Involvement: Resident Care Provided Care Provided: Adult [facility]
[2020-04-16] MEDS: ATORVASTATIN 40 MG TAB PO SCH (20:42)
[2020-04-16] MEDS: AMLODIPINE BESYLATE 5 MG TAB PO SCH (20:42)
[2020-04-16] MEDS: HEPARIN SOD 5,000 UNIT/0.5 ML VIAL SQ SCH (20:42)
[2020-04-17 07:27] LABS: Basophils # (auto) 0.01 K/uL (0-0.2); Basophils % (auto) 0.1 %; Eosinophils # (auto) 0.15 K/uL (0-0.5); Eosinophils % (auto) 1.8 %; Hematocrit (blood only) 38.1 % (42-52); Hemoglobin 11.5 g/dL (14.0-18.0); Immature Granulocytes # (auto) 0.03 K/uL (0.00-0.02); Immature Granulocytes % (auto) 0.4 %; Lymphocytes # (auto) 1.79 K/uL (1.2-3.4); Lymphocytes % (auto) 21.2 %; Mean Corpuscular Hemoglobin 29.6 pg (25-34); Mean Corpuscular Hgb Conc 30.2 g/dL (32-36); Mean Corpuscular Volume 98.2 fL (80-100); Mean Platelet Volume 10.4 fL (7.4-10.4); Monocytes # (auto) 1.23 K/uL (0.11-0.59); Monocytes % (auto) 14.6 %; Neutrophils # (auto) 5.23 K/uL (1.4-6.5); Neutrophils % (auto) 61.9 %; Nucleated RBC # (auto) 0.06 K/uL (0-0); Nucleated RBC % (auto) 0.7 %; Platelet Count 236 K/uL (130-400); RDW Coefficient of Variation 20.9 % (11.5-14.5); RDW Standard Deviation 73.7 fL (36.4-46.3); Red Blood Count 3.88 M/uL (4.7-6.1); White Blood Count 8.44 K/uL (4.8-10.8)
[2020-04-17 07:56] LABS: Anisocytosis Present; Polychromasia 1+
[2020-04-17 08:18] LABS: BUN Creatinine Ratio 7.8 (10-20); Calcium 8.9 mg/dl (8.5-10.1); Creatinine Clr Calc Pharmacy 13.4 ml/min; Est GFR (African American) 17.3; Est GFR (Non-African American) 14.9; Potassium 3.8 mmol/L (3.5-5.1)
[2020-04-17] MEDS: ISOSORBIDE MONO EXTENDED REL 60 MG TABCR PO SCH (09:04)
[2020-04-17] MEDS: levETIRAcetam 500 MG TAB PO SCH (09:04)
[2020-04-17] MEDS: NEPHROCAPS PO SCH (09:04)
[2020-04-17] MEDS: SEVELAMER HCL 800 MG TABLET PO SCH ×2 (09:04→12:23)
[2020-04-17] MEDS: glipiZIDE ER 2.5 MG TABCR PO SCH (09:04)
[2020-04-17] MEDS: CLOPIDOGREL BISULFATE 75 MG TAB PO SCH (09:04)
[2020-04-17] MEDS: FAMOTIDINE 40 MG TABLET PO SCH (09:04)
[2020-04-17] MEDS: POLYETHYLENE (MIRALAX) 17 GM PACK PO SCH (09:05)
[2020-04-17] MEDS: HEPARIN SOD 5,000 UNIT/0.5 ML VIAL SQ SCH (09:05)
[2020-04-17] MEDS: CITALOPRAM 20 MG TAB PO SCH (09:05)
--- NOTE | 2020-04-17 11:19 | Nephrology Progress Note ---
Date of Service April 17, 2020 Assessment & Plan (1) ESRD on hemodialysis: ESRD on hemodialysis Saturday, Saturday, Saturday at [facility]. Admitted to the hospital with chest pain, elevated troponin most likely secondary to non STEMI versus demand ischemia. Evaluated by Cardiology and plan for conservative management unless symptom worsen however he has been asymptomatic. Found to be volume overloaded and had to alter filtration with estimated dry weight down to 58 from 60 prior. Had dialysis with successful ultrafiltration and last weight was 56.7. clinically seems stable and at his baseline. Blood pressure, electrolytes, volume status acceptable. --Hemodialysis tomorrow as his regular scheduled, will aim for estimated dry weight 56 --continue supportive care, avoid IV fluid --hemoglobin above 11, no need for JENSEN at this time --dose meds for GFR < 10 Will follow Admission and Anticipated Discharge Date Admission Date: April 14, 2020 Jesus Rivera was seen and examined this morning. He was sitting in GFR, comfortable, denied any symptoms and just wants to go home. Blood pressure acceptable. Electrolyte acceptable. Had extradialysis yesterday with 2 liters UF, weight down to 55 kg with his prior estimated dry weight 60. Review of Systems Review of Systems: All systems reviewed & are unremarkable except as noted in HPI & below Physical Exam Constitutional: well developed and well nourished; no acute distress Respiratory: normal respiratory effort; no respiratory distress Auscultation: + diminished lung sounds Cardiovascular: Rate/Rhythm: regular rate and regular rhythm Heart Sounds: normal S1 and normal S2 Extremities: no edema Neurologic: moves all extremities and awake; not confused Psychiatric: A+Ox3, euthymic affect Results & Data ([facility]) Vital Signs (Past 12 Hours) Vital Signs Temp Pulse Pulse Resp BP Pulse Ox 04/17/20 07:47 59 L 04/17/20 03:48 78 14 96 04/17/20 03:02 36.6 C 62 19 137/87 96 04/17/20 00:00 84 04/16/20 23:33 78 24 95 PG Care Time/CCT Total # of Minutes Spent Total Time Spent with Patient: Total time spent is greater than 50% in coordination of care (as documented) at patient's floor/unit and/or counseling patient: Coding Level of Care Code 27014 Subseq Hosp Care Lvl 3 Diagnoses ESRD on hemodialysis N18.6; Z99.2
--- NOTE | 2020-04-17 12:38 | Discharge Summary ---
Date of Service April 17, 2020 Admission HPI Per Admitting Provider 74-year-old male with past medical history ESRD on hemodialysis MWF, hypertensive urgency, CHF, CAD, CVA involving left MCA on Plavix, left sided encephalomalacia with moderate to severe atrophy on most recent MRI, causing residual right-sided weakness and aphasia, chronic left ICA occlusion since 2010, epilepsy on Keppra, DM type II, depression and constipation presents with some concern of chest pain. Of note patient is a very poor historian secondary to encephalomalacia with very limited insight. Reportedly patient had an episode of chest pain along with some shortness of breath earlier in the evening. By the time EMS had arrived chest pain had resolved. Upon my exam, patient denies anything on review of systems, however again it is noted that patient does not offer much in the way of his own history. Pertinent labs: Hemoglobin 12.1, creatinine 3.24, BUN 33, glucose 130, troponin 0 0.084 EKG-unable to be found in pt's chart or on MUSE (likely because [employer] was in 'downtime' during this admission) Chest x-ray: per my interpretation, Congestive heart failure with bilateral pleural effusions ER course: No significant course in the way of medication Admission Exam Per Admitting Provider Constitutional: WD/WN, vitals as above no acute distress Respiratory: normal respiratory effort, lungs clear to auscultation no respiratory distress Cardiovascular: RRR, no murmur, no edema Chest (Breasts): Additional Comments: Permacath in the right anterior chest wall Gastrointestinal (Abdomen): normal bowel sounds, soft, nontender, no hepatosplenomegaly Skin: no rashes, warm and dry Dialysis fistula in the LUE Psychiatric: Orientation: alert Insight: + poor insight Lymphatic: +1 LE edema Principal Diagnosis CHF exacerbation Discharge Exam Constitutional WD/WN, vitals as above cooperative and comfortable Eyes PERRL, conjunctivae normal, anicteric sclerae ENMT external ear and nose normal, oropharynx normal + voice is unusually high pitched Neck normal visual inspection and trachea midline Respiratory normal respiratory effort; no respiratory distress and no labored breathing Auscultation: + diminished lung sounds (bilateral lung bases ) Cardiovascular RRR, no murmur, no edema Heart Sounds: normal S1 and normal S2 Gastrointestinal (Abdomen) normal bowel sounds, soft, nontender, no hepatosplenomegaly Skin no rashes, warm and dry Neurologic Speech / Cognition: + expressive aphasia Discharge Data Allergies Allergy/AdvReac Type Severity Reaction Status Date / Time adhesive Allergy Unknown BLISTERING Verified 04/14/20 00:04 OF SKIN latex Allergy Unknown Rash Verified 04/14/20 00:04 Consultations 04/14/20 01:29 ED Decision to Admit Stat 04/14/20 03:29 Consult Nephrology Routine 04/15/20 08:51 Consult Cardiology Routine 04/15/20 13:19 Consult Palliative Care Routine Hospital Course (1) Chest pain: Patient is 74-year-old male with a complex past medical history who was admitted on 04/13 for acute exacerbation of CHF, improving with dialysis. Nephrology was consulted for management of his volume status. He received hemodialysis Sat, , Sat and Sat. Given overall prognosis, palliative care consulted but were not able to see patient in hospital before the time of his discharge. Acute on Chronic Diastolic CHF - CXR from 04/15: Cardiomegaly, worsened pulmonary edema with bilateral pleural effusions - Nephrology consulted for fluid management; patient underwent hemodialysis on 4 sequential days - volume status improved by day of discharge; patient reached dry weight of 76kg - home metoprolol d/c due to Mobitz type II AV silvio blockade Chest pain/elevated troponin - history of CAD, s/p CABG - Patient with mild chest pain on admission - trop peaked at 5.40, has since downtrended - Admission EKG: sinus with 1st degree AV block with PVCs/fusion complexes, diffuse nonspecific T wave abnormality - Cardiology consulted, recommending medical management - thought to be secondary to demand ischemia vs. NSTEMI in the setting of volume overload - continue high intensity statin - continue Plavix Hypoxia - likely secondary to pulmonary vascular congestion - progressive pleural effusions noted on 04/15 CXR - no prior baseline O2 requirement - patient required supplemental oxygen and BiPAP during hospital stay - breathing improved with dialysis, but patient still required 2L via NC on 2- step - script provided for home oxygen ESRD on MWF hemodialysis - nephrology was consulted and managed volume status during hospital stay - Dialysis diet - renally dose meds for GFR < 10 - Continue sevelamer 800 mg PO AC Second degree AV block, Mobitz type I: - 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 - beta amrit discontinued per cardiology - no indication for pacemaker at present Leukocytosis, resolved - WBC: 8 today, down from 14.36 - Patient does not appear septic, afebrile, normal HR and RR - no infectious source was identified, no antibiotics were given History of CVA with residual deficit/HTN/CAD/PAD - Right-sided residual deficits s/p left MCA ischemic stroke - History of [place] in early with CABG - History of iliofemoral bypass - Chronic left ICA occlusion known since 2010 - Continue Plavix, atorvastatin, amlodipine, losartan, Imdur Expressive aphasia - Noted, secondary to past CVA 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 - A1C= 5.4 on 11/18/2019 - Glucose in 130s - continue home glipizide Normocytic Anemia - chronic, per chart review - Hgb 12, MCV 97 - No sign of acute bleeding Hx Seizure disorder - Stable, continue Keppra for now - Keppra level checked to ensure therapeutic, did not result by the time of discharge Voice Abnormality - patient's voice was high-pitched and difficult to understand throughout hospital stay - reports this was been an intermittent issue over past few months - etiology unknown - consider outpatient work up Total Time Total Time Spent Total Time Spent (In Minutes): see attending attestation Discharge Plan Discharge Items Patient Disposition: Home - Home Health Services Reason For Visit: CHEST PAIN Discharge Diagnosis: CHF exacerbation Activity: Resume your previous activity Non-emergency contact: Primary Care Provider Call non-emergency contact if: your symptoms worsen Follow-up/Referrals: Erick Zapata III, MD [Primary Care Provider] - Diet: Dialysis Renal Addtl Attending Provider Instructions: You were hospitalized at [facility] for an acute exacerbation of your congestive heart failure. This was likely caused by fluid overload from your kidney disease. You have underlying end-stage kidney disease, which is being managed with Saturday, Saturday, and Saturday dialysis. You required two additional days of dialysis while in the hospital to remove additional fluid from your vasculature. This excess fluid backed up from your kidneys to your heart and on to your lungs, making it difficult for you to breath. You were given supplemental oxygen support, both via nasal cannula and also through the BiPAP mask. Your breathing improved after having the extra dialysis sessions, but you still needed supplemental oxygen to go home wiht. . Cardiology was consulted during your hospital stay and recommend you stop taking your Metoprolol. Given the end stage (significantly advanced) nature of your kidney disease, we recommended you meet with palliative care, a team that helps patients construct goals of their medical care moving forward, with the perspective of your life- limiting illness. However, they were not able to see you by the time of your discharge. You may want to consider seeing palliative care as an outpatient. This can be arranged by your family doctor. Your asked why your voice was high-pitched and quiet. She said it had been like this for a few months before coming into the hospital. The reason for this is unclear and was not explored during your hospital stay. We recommend you follow up with your primary care doctor for it. Please attend your regularly scheduled dialysis clinic on Saturday, 04/18. Pending Studies at Discharge: No Stand-Alone Forms: My [employer] [address] [address], Smoking Cessation Medications and DC Order Prescriptions: Continued sennosides [Senokot] 8.6 mg tablet 8.6 mg PO QPM PRN (Reason: Constipation) Qty: 30 RF: 0 famotidine 40 mg tablet 40 mg PO BID Qty: 180 RF: 3 hydrocortisone [Proctosol HC] 2.5 % cream with perineal applicator 1 appln [place] DAILY PRN (Reason: itching) Qty: 28 RF: 0 citalopram 10 mg tablet 10 mg PO HS RF: 0 isosorbide mononitrate 60 mg tablet extended release 24 hr 60 mg PO DAILY RF: 0 glipizide 2.5 mg tablet extended release 24hr 2.5 mg PO DAILY RF: 0 docusate sodium [Stool Softener] 100 mg capsule 100 mg PO DAILY PRN (Reason: Constipation) RF: 0 Renal Caps 1 mg Capsule 1 cap PO QAM Qty: 30 RF: 0 polyethylene glycol 3350 [Miralax] 17 gram powder in packet 17 gm PO DAILY Qty: 0 RF: 0 sevelamer HCl [Renagel] 800 mg tablet 800 mg PO AC RF: 0 nitroglycerin [Nitrostat] 0.4 mg tablet, sublingual 0.4 mg SL UD PRN (Reason: Chest Pain) RF: 0 atorvastatin [Lipitor] 80 mg tablet 80 mg PO HS RF: 0 calcitriol [Rocaltrol] 0.25 mcg capsule 0.25 mcg PO 3XWK RF: 0 levetiracetam [Keppra] 500 mg tablet 500 mg PO 4XWK RF: 0 clopidogrel [Plavix] 75 mg tablet 75 mg PO DAILY RF: 0 amlodipine [Norvasc] 5 mg tablet 2.5 mg PO QPM Qty: 0 RF: 0 citalopram 20 mg tablet 20 mg PO QAM RF: 0 oxycodone-acetaminophen [Percocet] 5-325 mg tablet 1 tab PO Q6H PRN (Reason: pain) Qty: 20 RF: 0 Discontinued metoprolol tartrate 50 mg tablet 50 mg PO BID RF: 0 Discharge Orders: Discharge Order (Routine); Ordered 04/17/20 Ordered By: Valentine Carpenter Admission Data Admit Date/Time: 04/14/20 01:43 Attending Provider: Rani Walter Admit Provider: Archana Melendrez Primary Care Provider: Erick Zapata III Other Providers: Archana Melendrez ; Tabitha Muniz ; Oli Holguin ; Lena Basurto ; [place] [facility] Other Interventions: Discharge Summary Assessment (RN) Last Done: 04/17/20 16:25 Supervising Physician Co-Signing Physician Notes Resident Physician Supervision Note: I independently interviewed and examined the patient and verified the grande history and physical, reviewed labs and image studies, discussed the case with the resident Dr. Carpenter and agree with the findings and care plan. Resident Activity Tracking Resident Involvement: Resident Care Provided Care Provided: Adult Hospital Medicine
== END 2020-04-17 17:01 | disposition home health service (06) | DRG 291 ==
LOC: ED 23:11 → 2N 04-14 01:43 → SUATTDRO 04-14 01:43 → 2N 04-14 02:00

== ENCOUNTER 2020-08-22 02:24 | Inpatient (IN) ==
[2020-08-22] MEDS ORDERED: fentaNYL citrate 100 MCG/2 ML VIAL IV STA (02:59)
[2020-08-22 03:16] LABS: Basophils # (auto) 0.02 K/uL (0-0.2); Basophils % (auto) 0.2 %; Eosinophils # (auto) 0.57 K/uL (0-0.5); Eosinophils % (auto) 4.5 %; Hemoglobin 13.5 g/dL (14.0-18.0); Immature Granulocytes # (auto) 0.06 K/uL (0.00-0.02); Immature Granulocytes % (auto) 0.5 %; Lymphocytes # (auto) 2.45 K/uL (1.2-3.4); Lymphocytes % (auto) 19.4 %; Mean Corpuscular Hemoglobin 32.5 pg (25-34); Mean Corpuscular Hgb Conc 32.1 g/dL (32-36); Mean Corpuscular Volume 101.2 fL (80-100); Mean Platelet Volume 10.9 fL (7.4-10.4); Monocytes # (auto) 1.09 K/uL (0.11-0.59); Monocytes % (auto) 8.6 %; Neutrophils # (auto) 8.45 K/uL (1.4-6.5); Neutrophils % (auto) 66.8 %; Platelet Count 245 K/uL (130-400); RDW Coefficient of Variation 17.5 % (11.5-14.5); RDW Standard Deviation 64.3 fL (36.4-46.3); Red Blood Count 4.15 M/uL (4.7-6.1); White Blood Count 12.64 K/uL (4.8-10.8)
[2020-08-22 03:31] LABS: Partial Thromboplastin Ratio 0.9; Partial Thromboplastin Time 24.5 Seconds (21.0-31.0)
--- NOTE | 2020-08-22 03:32 | Emergency Department Note ---
Impression & Plan Closed hip fracture, Fall ED Provider Note NAME: VIVIANA LANIER AGE: 75 SEX: M ARRIVES VIA: Ambulance INFORMANT: Patient, the patient's by phone ED PROVIDER(S): Mojgan Morrow DO CHIEF COMPLAINT: Fall PLAN: [facility] MEDICAL DECISION MAKING: This is a 75-year-old male patient with dementia who suffered a fall at home tonight. The patient's found him laying on his right side and unable to get up. He was brought here by EMS complaining of right shoulder and right hip pain. Patient is unable to straighten out his right hip and knee. X-ray confirms a right hip fracture. The patient has a creatinine of 8 but is on hemodialysis. Other laboratory values are fairly unremarkable. [facility] Triage Nursing notes reviewed and agree them. Additional history obtained from EMS and the patient's who called him by phone Prior medical records reviewed Vital Signs: reviewed and unremarkable Differential diagnosis: Hip fracture, pelvis fracture, femur fracture, humerus fracture clavicle fracture ER treatment provided: IV fentanyl Diagnostics interpreted by me: ECG: Normal sinus rhythm at a rate of 74 with a first-degree AV block. There are some nonspecific ST/T wave changes in the inferior lateral leads. This is unchanged from an EKG done in March 2020. There is no significant ectopy Cardiac Monitoring: Normal sinus rhythm at 80 Laboratory studies: See below Imaging studies: As per my interpretation Right hip x-ray: Intertrochanteric fracture of the hip Right shoulder x-ray: No obvious humerus fracture, clavicle fracture or AC separation Chest x-ray: Hemodialysis catheters are in place. There is no significant cardiomegaly or other pulmonary findings. HPI: 75/M arrives for evaluation of fall. According to the patient's , she found the patient lying on the floor on his right side and was unable to get him up off the floor. Upon arrival here to the emergency department, patient seemed to be complaining of right hip pain and right shoulder pain. He was unable to straighten his right hip and his right knee. He seemed to have significant discomfort with manipulation of the right shoulder as well. The patient had no significant outward signs of trauma. He suffers from dementia and when asked questions, he answers yes to most questions. ROS: Unable to complete a significant review of systems because of his dementia. PAST MEDICAL HISTORY:See Below PAST SURGICAL HISTORY:See Below FAMILY HISTORY:See Below SOCIAL HISTORY:See Below HOME MEDICATIONS:See list ALLERGIES:See list VITALS:See Below PHYSICAL EXAMINATION: HEENT: Head - normocephalic and atraumatic Pupils are equal, round, and reactive to light. Extraocular eye muscles are intact, and sclera are anicteric. Nose - moist nasal mucosa without discharge. Mouth - moist buccal mucosa. Oropharynx is nonerythematous and there is no tonsillar exudate or edema noted. Neck: Supple; no pain to palpation over the posterior cervical spine Heart: Regular rate and rhythm. There is a normal S1 and S2 with no murmurs, clicks, or gallops appreciated. Lungs: Clear to auscultation bilaterally with no wheezes, rales, or rhonchi. Abdomen: Soft, completely nontender, nondistended, with good bowel sounds. There are no palpable pulsatile masses or hepatosplenomegaly. There is no guarding, rigidity, or rebound noted. Extremities: The patient holds the right lower extremity flexed at the hip and flexed at the right knee. He appears to be having significant muscle spasm in the right hamstring muscles. He has normal palpable distal pulses in both lower extremities. There are no obvious outward signs of trauma. There is moderate discomfort with any type of manipulation of the right lower extremity. I could put the right upper extremity through full range of motion at the right shoulder but it does seem to be slightly painful. Skin: warm and dry with good turgor and no rashes. ED COURSE: Times/Reassessments: 0245: Patient was evaluated in room A3. A complete history and physical was performed. An IV lock was initiated and labs were drawn as abo ve. A twelve-lead EKG was obtained and is described above. Nursing staff spoke with the patient's on the phone who was able to give much of the history. An order was placed for continuous cardiac monitoring. The patient is in a normal sinus rhythm at a rate of 80. He was given 50 mcg of IV fentanyl for his pain. X-rays of the right hip and right shoulder were obtained. There was an obvious fracture to the right hip. The patient went on to have a chest x-ray which was unremarkable. Ferrara catheter was placed. Patient was able to rest more comfortably after receiving the IV pain me dications. The case was discussed with the [facility] hospitalist group and they will evaluate for further management. Nursing staff were able to update the patient's on the phone. Mjogan Morrow DO Past Med/Surg History Medical History (Updated 08/22/20 @ 06:13 by Mojgan Morrow DO) Benign prostatic hyperplasia CAD (coronary artery disease) s/p CABG 2007 Carotid artery stenosis s/p remote R & L endarterectomies with L re-occlusion sometime before 2010. Being monitored by [facility] neuro, on Plavix. Chronic kidney disease Congestive heart failure (CHF) Depression Diabetes mellitus, type 2 A1C 5.4% 11/2019. Not on any medication. 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 Renal artery stenosis s/p left renal artery stenting; moderate right renal artery stenosis but no significant left renal artery stenosis on 11/2019 duplex Seizure disorder Stable on Keppra, no seizure for "a long time." Follows with [facility] neurology. SNHL (sensorineural hearing loss) Surgical History History of aorto-femoral bypass History of bypass graft (non vein) Aortic-femoral or bifemoral History of carotid endarterectomy L 1998, R 2009 History of cataract surgery RT/LEFT History of colonoscopy History of esophagogastroduodenoscopy (EGD) History of tooth extraction History of vascular access device IJ FOR DIAYLSIS S/P CABG (coronary artery bypass graft) (2007) [facility] Family History Brother Hypertension Hypercholesteremia Sister Diabetes Unknown Hypertension Cardiac disorder Social History Smoking Status: Current every day smoker Tobacco Type: Cigarettes Cigarettes Per Day: 30; Second Hand Exposure: No; Hx Alcohol Use: No Hx Substance Use: No Preferred Language: Romansh Communication Ability: Impaired Visual Impairment: No Limitations Cup Setter Lockstitch Required: No Beliefs That Will Affect Care: None marital status: Current Living Situation: Spouse Current Living Situation Comment: in an apartment per Feels Safe at Home: Yes caffeine: No Seatbelt Use: always Assistive Devices: BiPap, Glasses and Oxygen - Continuous Allergies Allergies Allergy/AdvReac Type Severity Reaction Status Date / Time adhesive Allergy Unknown BLISTERING Verified 08/22/20 03:30 OF SKIN latex Allergy Unknown Rash Verified 08/22/20 03:30 Home Meds Home Medications Medication Instructions Recorded Confirmed nitroglycerin [Nitrostat] 0.4 mg SL UD PRN 02/08/20 08/22/20 atorvastatin [Lipitor] 80 mg PO HS 02/18/20 08/22/20 clopidogrel [Plavix] 75 mg PO DAILY 02/18/20 08/22/20 levetiracetam [Keppra] 500 mg PO 4XWK 02/18/20 08/22/20 citalopram 20 mg PO QAM 03/29/20 08/22/20 docusate sodium [Stool Softener] 100 mg PO DAILY 04/13/20 08/22/20 glipizide 2.5 mg PO UD 08/22/20 08/22/20 Previous Rx's Medication Instructions Recorded Renal Caps 1 cap PO QAM #30 cap 11/20/19 polyethylene glycol 3350 [Miralax] 17 gm PO DAILY #0 ea 12/04/19 hydrocortisone 2.5 % topical cream 1 appln IN DAILY PRN #28 gm 12/10/19 with perineal applicator sennosides 8.6 mg tablet 8.6 mg PO QPM PRN #30 tab 12/31/19 famotidine 40 mg tablet 40 mg PO BID #180 tab 03/01/20 amlodipine 5 mg tablet 2.5 mg PO QPM #45 tab 05/06/20 isosorbide mononitrate 60 mg 60 mg PO DAILY #30 tab 06/07/20 tablet,extended release 24 hr citalopram 10 mg tablet 10 mg PO HS #30 tab 07/04/20 calcitriol 0.25 mcg capsule 0.25 mcg PO 3XWK #15 cap 08/09/20 Results & Data (ED) Vital Signs Vital Signs - 24 hr 08/22/20 02:49 08/22/20 03:00 08/22/20 03:30 Temperature 36.6 C Temperature Source Oral Pulse Rate 80 73 77 Respiratory Rate 20 17 22 Respiratory Effort / Characteristics Non-Labored Spontaneous Respiratory Depth Normal Respiratory Pattern Regular Blood Pressure 137/88 135/79 129/65 Blood Pressure Mean 104 89 77 Blood Pressure Position Lying Pulse Oximetry 100 98 98 Oxygen Delivery Method Room Air Sepsis Recent Fever Within 48 Hours No Sepsis New/Unexplained Change in Mental Status No Sepsis Action Taken by Nursing No Action Required 08/22/20 04:00 08/22/20 04:30 08/22/20 05:00 Temperature Temperature Source Pulse Rate 74 81 74 Respiratory Rate 15 18 16 Respiratory Effort / Characteristics Respiratory Depth Respiratory Pattern Blood Pressure 120/71 125/62 145/80 H Blood Pressure Mean 88 73 86 Blood Pressure Position Pulse Oximetry 99 98 98 Oxygen Delivery Method Sepsis Recent Fever Within 48 Hours Sepsis New/Unexplained Change in Mental Status Sepsis Action Taken by Nursing Laboratory Data Result diagrams: 08/22/20 03:00 08/22/20 03:00 Lab Results 08/22/20 08/22/20 08/22/20 Range/Units 03:00 03:00 03:00 WBC 12.64 H (4.8-10.8) K/uL RBC 4.15 L (4.7-6.1) M/uL Hgb 13.5 L (14.0-18.0) g/dL Hct 42.0 (42-52) % MCV 101.2 H (80-100) fL MCH 32.5 (25-34) pg MCHC 32.1 (32-36) g/dL RDW Std Deviation 64.3 H (36.4-46.3) fL RDW Coeff of Shayy 17.5 H (11.5-14.5) % Plt Count 245 (130-400) K/uL MPV 10.9 H (7.4-10.4) fL Immature Gran % (Auto) 0.5 % Neut % (Auto) 66.8 % Lymph % (Auto) 19.4 % [place] % (Auto) 8.6 % Eos % (Auto) 4.5 % Baso % (Auto) 0.2 % Neut # (Auto) 8.45 H (1.4-6.5) K/uL Lymph # (Auto) 2.45 (1.2-3.4) K/uL [place] # (Auto) 1.09 H (0.11-0.59) K/uL Eos # (Auto) 0.57 H (0-0.5) K/uL Baso # (Auto) 0.02 (0-0.2) K/uL Immature Gran # (Auto) 0.06 H (0.00-0.02) K/uL PT 11.0 (9.0-12.0) Seconds INR 1.0 (0.9-1.1) APTT 24.5 (21.0-31.0) Seconds PTT Ratio 0.9 Sodium 136 (136-145) mmol/L Potassium 4.8 (3.5-5.1) mmol/L Chloride 97 L (98-107) mmol/L Carbon Dioxide 27 (21-32) mmol/L Anion Gap 12.0 H (3-11) BUN 91 H (7-18) mg/dl Creatinine 8.11 H* (0.6-1.4) mg/dl Est Cr Clr Drug Dosing Not Reportable Est GFR ( Amer) 6.8 Est GFR (Non-Af Amer) 5.8 BUN/Creatinine Ratio 11.2 (10-20) Glucose 134 H (70-99) mg/dl Calcium 8.9 (8.5-10.1) mg/dl Urine Color Urine Appearance (Clear) Urine pH (4.5-7.5) Ur Specific [place] (1.000-1.030) Urine Protein (Negative) Urine Glucose (UA) (Negative) Urine Ketones (Negative) Urine Blood (Negative) Urine Nitrite (Negative) Urine Bilirubin (Negative) Urine Urobilinogen (Negative) Ur Leukocyte Esterase (Negative) Urine WBC (Auto) (0-5) /hpf Urine RBC (Auto) (0-4) /hpf U Hyaline Cast (Auto) (0-5) /lpf U Epithel Cells (Auto) (0-5) /lpf Urine Bacteria (Auto) (Negative) Ur Renal Epithelial Cell 08/22/20 Range/Units 05:19 WBC (4.8-10.8) K/uL RBC (4.7-6.1) M/uL Hgb (14.0-18.0) g/dL Hct (42-52) % MCV (80-100) fL MCH (25-34) pg MCHC (32-36) g/dL RDW Std Deviation (36.4-46.3) fL RDW Coeff of Shayy (11.5-14.5) % Plt Count (130-400) K/uL MPV (7.4-10.4) fL Immature Gran % (Auto) % Neut % (Auto) % Lymph % (Auto) % [place] % (Auto) % Eos % (Auto) % Baso % (Auto) % Neut # (Auto) (1.4-6.5) K/uL Lymph # (Auto) (1.2-3.4) K/uL [place] # (Auto) (0.11-0.59) K/uL Eos # (Auto) (0-0.5) K/uL Baso # (Auto) (0-0.2) K/uL Immature Gran # (Auto) (0.00-0.02) K/uL PT (9.0-12.0) Seconds INR (0.9-1.1) APTT (21.0-31.0) Seconds PTT Ratio Sodium (136-145) mmol/L Potassium (3.5-5.1) mmol/L Chloride (98-107) mmol/L Carbon Dioxide (21-32) mmol/L Anion Gap (3-11) BUN (7-18) mg/dl Creatinine (0.6-1.4) mg/dl Est Cr Clr Drug Dosing Est GFR ( Amer) Est GFR (Non-Af Amer) BUN/Creatinine Ratio (10-20) Glucose (70-99) mg/dl Calcium (8.5-10.1) mg/dl Urine Color Yellow Urine Appearance Clear (Clear) Urine pH 7.5 (4.5-7.5) Ur Specific [place] 1.016 (1.000-1.030) Urine Protein 3+ H (Negative) Urine Glucose (UA) Trace H (Negative) Urine Ketones Trace H (Negative) Urine Blood 2+ H (Negative) Urine Nitrite Negative (Negative) Urine Bilirubin Negative (Negative) Urine Urobilinogen Negative (Negative) Ur Leukocyte Esterase Negative (Negative) Urine WBC (Auto) 5-10 H (0-5) /hpf Urine RBC (Auto) >30 H (0-4) /hpf U Hyaline Cast (Auto) 1-5 (0-5) /lpf U Epithel Cells (Auto) >30 H (0-5) /lpf Urine Bacteria (Auto) Negative (Negative) Ur Renal Epithelial Cell Not Reportable Administered Medications Morphine Sulfate (Morphine Sulfate 2 Mg/Ml [place]) 2 mg IV Q3H PRN PRN Reason: Pain (1,2,3,4,5) & Pre PT Stop: 09/05/20 05:27 Last Admin: 08/22/20 05:42 Dose: 2 mg Documented by: [id number] Discontinued Medications Fentanyl Citrate (Fentanyl Citrate 100 Mcg/2 Ml Vial) 50 mcg IV NOW STA Stop: 08/22/20 03:00 Last Admin: 08/22/20 03:10 Dose: 50 mcg Documented by: [id number] Ondansetron HCl (Ondansetron Inj 2 Mg/Ml 2 Ml Vial) Confirm Administered Dose 4 mg .ROUTE .STK-MED ONE Stop: 08/22/20 05:54 Last Admin: 08/22/20 05:57 Dose: 4 mg Documented by: [id number] Discharge Plan Visit Data Chief Complaint: Hip Pain Stated Complaint: FALL/HIP PAIN ED Provider: Mojgan Morrow Discharge Problem: Closed hip fracture, Fall Forms Stand Alone Forms: [facility] Prescriptions Prescriptions: No Action sennosides [Senokot] 8.6 mg tablet 8.6 mg PO QPM PRN (Reason: Constipation) Qty: 30 RF: 0 amlodipine [Norvasc] 5 mg tablet 2.5 mg PO QPM Qty: 45 RF: 3 isosorbide mononitrate 60 mg tablet extended release 24 hr 60 mg PO DAILY Qty: 30 RF: 5 citalopram 10 mg tablet 10 mg PO HS Qty: 30 RF: 5 calcitriol [Rocaltrol] 0.25 mcg capsule 0.25 mcg PO 3XWK Qty: 15 RF: 5 famotidine 40 mg tablet 40 mg PO BID Qty: 180 RF: 3 hydrocortisone [Proctosol HC] 2.5 % cream with perineal applicator 1 appln IN DAILY PRN (Reason: itching) Qty: 28 RF: 0 docusate sodium [Stool Softener] 100 mg capsule 100 mg PO DAILY RF: 0 Renal Caps 1 mg Capsule 1 cap PO QAM Qty: 30 RF: 0 polyethylene glycol 3350 [Miralax] 17 gram powder in packet 17 gm PO DAILY Qty: 0 RF: 0 nitroglycerin [Nitrostat] 0.4 mg tablet, sublingual 0.4 mg SL UD PRN (Reason: Chest Pain) RF: 0 atorvastatin [Lipitor] 80 mg tablet 80 mg PO HS RF: 0 levetiracetam [Keppra] 500 mg tablet 500 mg PO 4XWK RF: 0 clopidogrel [Plavix] 75 mg tablet 75 mg PO DAILY RF: 0 citalopram 20 mg tablet 20 mg PO QAM RF: 0 glipizide 2.5 mg tablet extended release 24hr 2.5 mg PO UD RF: 0 Discharge Problem: Closed hip fracture Qualifiers: Encounter type: initial encounter Laterality: right Qualified Code(s): S72.001A - Fracture of unspecified part of neck of right femur, initial encounter for closed fracture Fall Qualifiers: Encounter type: initial encounter Qualified Code(s): W19.XXXA - Unspecified fall, initial encounter
[2020-08-22 04:03] LABS: BUN Creatinine Ratio 11.2 (10-20); Blood Urea Nitrogen 91 mg/dl (7-18); Calcium 8.9 mg/dl (8.5-10.1); Carbon Dioxide 27 mmol/L (21-32); Chloride 97 mmol/L (98-107); Est GFR (African American) 6.8; Est GFR (Non-African American) 5.8; Glucose 134 mg/dl (70-99); Potassium 4.8 mmol/L (3.5-5.1); Sodium 136 mmol/L (136-145)
[2020-08-22] MEDS ORDERED: MoRPHine SULFATE 4 MG/ML 1 ML CARP\\VIAL IV PRN (05:28)
[2020-08-22] MEDS ORDERED: MoRPHine SULFATE 2 MG/ML CARP IV PRN (05:28)
--- NOTE | 2020-08-22 05:29 | History & Physical Report ---
Date of Service August 22, 2020 Assessment & Plan (1) Hip fracture: History severely limited by patient's dementia, primary team will need to obtain collateral when able. Briefly the patient is a 75-year-old male with a past medical history of hypercholesterolemia, GERD, coronary artery disease, renal artery stenosis, past history of cerebral infarction, DM, hemiparesis, CHF, peripheral artery disease, history of syncope, end-stage renal disease on hemodialysis, second-degree Mobitz type I presents this evening by ambulance status post fall sustained at his house. #Hip pain in the setting of hip fracture secondary to mechanical fall sustained at home questionable vasovagal syncope given patient history Patient has significant dementia and history was unable to be obtained. His is not present obtain collateral information. All information was relayed by the ED/EMS. The patient had been in his normal state of health endorsing some dizziness earlier today. He had fallen and his arrived in the room to find him clutching his hip and indicating his elbow had been bruised. Remainder the HPI as above. Patient will be admitted for evaluation of his injuries, pain management, and orthopedic consultation. -Pain control with morphine, patient may be unable to indicate if he is having pain, recommend nursing discretion -Orthopedic consultation -N.p.o. overnight pending orthopedic evaluation -PT OT -Case management consulted -Obtain collateral information when able -Follow-up UA #Altered mental state History of CVA, with lasting hemiparesis and confusion this is complicated by dementia. Patient lives at home, his is his sole caregiver. -Case management consult #Acute renal failure requiring hemodialysis Creatinine on presentation was 8, per review of records patient's estimated dry weight is 56 kg. -Holding IV fluids -Trend BMP -Dose meds for GFR less than 10 -Consult nephrology #Type 2 diabetes Holding home meds -Glycemic consult placed #Coronary artery disease/hypercholesterolemia -Continue home atorvastatin 80 mg p.o. at bedtime -Continue clopidogrel 75 mg p.o. daily -Continue nitrates #History of renal artery stenosis and hypertension Stented and hypertension well-controlled on amlodipine -Continue amlodipine 2.5 mg every afternoon #GERD Continue famotidine #Anxiety/depression Continue citalopram #Constipation -Continue docusate -Continue MiraLAX FENa: Holding fluids, given acute renal failure, n.p.o. pending Ortho consultation Code Status: Full code, verified with collaterals DVT PPX: SCDs pending Ortho evaluation PT/OT: Ordered Dispo: MedSurg with telemetry Venancio Melendrez MD PGY 2, FCM This chart was completed utilizing [employer] voice recognition software. Grammatical errors, random word insertions, pronoun errors, and in complete sentences are an occasional consequence of the system. Any questions or concerns about the content, text, or information contained within the body of this dictation should be addressed directly to the physician for clarification. (2) Hypercholesteremia: (3) GERD (gastroesophageal reflux disease): (4) CAD (coronary artery disease): (5) Renal artery stenosis: (6) Cerebral artery occlusion with cerebral infarction: (7) 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: (8) Vasovagal syncope: (9) Peripheral artery disease: (10) ESRD on hemodialysis: (11) Second degree AV block, Mobitz type I: (12) Altered mental state: (13) DVT prophylaxis: History of Present Illness History severely limited by patient's dementia, primary team will need to obtain collateral when able. Briefly the patient is a 75-year-old male with a past medical history of hypercholesterolemia, GERD, coronary artery disease, renal artery stenosis, past history of cerebral infarction, DM, hemiparesis, CHF, peripheral artery disease, history of syncope, end-stage renal disease on hemodialysis, second-degree Mobitz type I presents this evening by ambulance status post fall sustained at his house. The patient was not alert or oriented at all, was barely able to communicate, only really referencing pain and pointing to where his pain was. Per report from emergency room staff, the patient was in his normal state of health. He did endorse some dizziness earlier today. His heard a fall, and came running from another room to find him on the floor clutching his hip and indicating that he had some elbow pain. She contacted the ambulance to transport him to [facility]. Upon arrival labs were obtained demonstrating a white count of 12.64, with a neutrophil predominance, PT/INR within normal limits, Chem-7 indicating a creatinine of 8.11 and a glucose of 134. Imaging was obtained showing a hip fracture, elbow imaging pending final read, chest x-ray demonstrating cardiomegaly. The primary team was contacted for admission. Primary Care Provider: Erick Zapata MD Allergies Allergy/AdvReac Type Severity Reaction Status Date / Time adhesive Allergy Unknown BLISTERING Verified 08/22/20 03:30 OF SKIN latex Allergy Unknown Rash Verified 08/22/20 03:30 Home Medications Medication Instructions Recorded Confirmed Type Renal Caps 1 cap PO QAM #30 cap 11/20/19 08/22/20 Rx polyethylene glycol 3350 [Miralax] 17 gm PO DAILY #0 ea 12/04/19 08/22/20 Rx hydrocortisone 2.5 % topical cream 1 appln [place] DAILY PRN #28 gm 12/10/19 08/22/20 Rx with perineal applicator sennosides 8.6 mg tablet 8.6 mg PO QPM PRN #30 tab 12/31/19 08/22/20 Rx nitroglycerin [Nitrostat] 0.4 mg SL UD PRN 02/08/20 08/22/20 History atorvastatin [Lipitor] 80 mg PO HS 02/18/20 08/22/20 History clopidogrel [Plavix] 75 mg PO DAILY 02/18/20 08/22/20 History levetiracetam [Keppra] 500 mg PO 4XWK 02/18/20 08/22/20 History famotidine 40 mg tablet 40 mg PO BID #180 tab 03/01/20 08/22/20 Rx citalopram 20 mg PO QAM 03/29/20 08/22/20 History docusate sodium [Stool Softener] 100 mg PO DAILY 04/13/20 08/22/20 History amlodipine 5 mg tablet 2.5 mg PO QPM #45 tab 05/06/20 08/22/20 Rx isosorbide mononitrate 60 mg 60 mg PO DAILY #30 tab 06/07/20 08/22/20 Rx tablet,extended release 24 hr citalopram 10 mg tablet 10 mg PO HS #30 tab 07/04/20 08/22/20 Rx calcitriol 0.25 mcg capsule 0.25 mcg PO 3XWK #15 cap 08/09/20 08/22/20 Rx glipizide 2.5 mg PO UD 08/22/20 08/22/20 History Past Med/Surg History Medical History Benign prostatic hyperplasia CAD (coronary artery disease) s/p CABG 2007 Carotid artery stenosis s/p remote R & L endarterectomies with L re-occlusion sometime before 2010. Being monitored by [facility] neuro, on Plavix. Chronic kidney disease Congestive heart failure (CHF) Dementia Depression Diabetes mellitus, type 2 A1C 5.4% 11/2019. Not on any medication. Diabetic peripheral neuropathy Esophageal reflux Flash pulmonary edema 11/2019 Hemodialysis patient MON/SAT/SATURDAY [facility] 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 (1 YEAR AFTER [place]) ? Hyperlipidemia Hypertension Memory problem PT REPORTS "DEMENTIA" "COMES AND GOES" Myocardial Infarction 1989? Renal artery stenosis s/p left renal artery stenting; moderate right renal artery stenosis but no significant left renal artery stenosis on 11/2019 duplex Seizure disorder Stable on Keppra, no seizure for "a long time." Follows with [facility] neurology. SNHL (sensorineural hearing loss) Surgical History History of aorto-femoral bypass History of bypass graft (non vein) Aortic-femoral or bifemoral History of carotid endarterectomy L 1998, R 2009 History of cataract surgery RT/LEFT History of colonoscopy History of esophagogastroduodenoscopy (EGD) History of tooth extraction History of vascular access device IJ FOR DIAYLSIS S/P CABG (coronary artery bypass graft) (2007) [facility] Family History Brother Hypertension Hypercholesteremia Sister Diabetes Unknown Hypertension Cardiac disorder Social History Smoking Status: Unknown if ever smoked Tobacco Type: Cigarettes Cigarettes Per Day: 30; Second Hand Exposure: No; Hx Alcohol Use: No (unable to assess at this time) Hx Substance Use: No (unable to assess at this time) Preferred Language: Chinese Communication Ability: Impaired Visual Impairment: No Limitations Stretch Box Tender Required: No Beliefs That Will Affect Care: None marital status: Current Living Situation: Spouse Current Living Situation Comment: in an apartment per Feels Safe at Home: Yes Safety Concerns: Feels Safe At This Time caffeine: No Seatbelt Use: always Assistive Devices: Walker Review of Systems Review of Systems: All systems reviewed & are unremarkable except as noted in HPI & below Physical Exam Physical Exam: General: Confused man in no acute distress, lying in bed, intermittently complaining of hip pain. HEENT: Normocephalic atraumatic Neck: Normal to visual section, trachea midline Cardiac: Regular rhythm, regular rate, normal S1, normal S2, did not appreciate any significant murmurs rubs or gallops, 1+ pedal edema bilaterally, no calf tenderness Respiratory: Clear to auscultation bilaterally with symmetrical chest expansion bilaterally, I did not appreciate significant wheezes, rales, rhonchi GI: Soft, nontender, nondistended, bowel sounds present in all 4 quadrants Neuro: Alert and oriented x0, unable to follow commands Psych: Calm and attempted to cooperate Results & Data Results & Data ([facility]) Vital Signs (Past 12 Hours) Vital Signs Temp Pulse Resp BP Pulse Ox 08/22/20 02:49 36.6 C 80 20 137/88 100 Laboratory Results 08/22/20 08/22/20 08/22/20 Range/Units 03:00 03:00 03:00 WBC 12.64 H (4.8-10.8) K/uL RBC 4.15 L (4.7-6.1) M/uL Hgb 13.5 L (14.0-18.0) g/dL Hct 42.0 (42-52) % MCV 101.2 H (80-100) fL MCH 32.5 (25-34) pg MCHC 32.1 (32-36) g/dL RDW Std Deviation 64.3 H (36.4-46.3) fL RDW Coeff of Shayy 17.5 H (11.5-14.5) % Plt Count 245 (130-400) K/uL MPV 10.9 H (7.4-10.4) fL Immature Gran % (Auto) 0.5 % Neut % (Auto) 66.8 % Lymph % (Auto) 19.4 % Carter % (Auto) 8.6 % Eos % (Auto) 4.5 % Baso % (Auto) 0.2 % Neut # (Auto) 8.45 H (1.4-6.5) K/uL Lymph # (Auto) 2.45 (1.2-3.4) K/uL Carter # (Auto) 1.09 H (0.11-0.59) K/uL Eos # (Auto) 0.57 H (0-0.5) K/uL Baso # (Auto) 0.02 (0-0.2) K/uL Immature Gran # (Auto) 0.06 H (0.00-0.02) K/uL PT 11.0 (9.0-12.0) Seconds INR 1.0 (0.9-1.1) APTT 24.5 (21.0-31.0) Seconds PTT Ratio 0.9 Sodium 136 (136-145) mmol/L Potassium 4.8 (3.5-5.1) mmol/L Chloride 97 L (98-107) mmol/L Carbon Dioxide 27 (21-32) mmol/L Anion Gap 12.0 H (3-11) BUN 91 H (7-18) mg/dl Creatinine 8.11 H* (0.6-1.4) mg/dl Est Cr Clr Drug Dosing Not Reportable Est GFR ( Amer) 6.8 Est GFR (Non-Af Amer) 5.8 BUN/Creatinine Ratio 11.2 (10-20) Glucose 134 H (70-99) mg/dl Calcium 8.9 (8.5-10.1) mg/dl Code Status & VTE Plan Code Status Patient's family was not present, unable obtain collateral information at this time, during previous admission patient was full code, will make him full code pending obtaining collateral information from family VTE Prophylaxis Plan VTE Prophylaxis will be ordered: Yes Supervising Physician Co-Signing Physician Notes Attending addendum: I have physically seen this patient, have supervised the medical residents activities, and agree with the H&P unless as otherwise noted. Assessment and Plan: Closed right hip fracture- NPO Acetaminophen 650 mg p.o. every 6 hours as needed mild pain or temperature. Morphine sulfate 2 mg IV every 3 hours as needed severe pain Zofran 4 mg IV every 6 hours as needed Famotidine 20 mg IV every 12 hours IV fluids Consult orthopedic surgery ESRD on HD- Consult nephrology for routine hemodialysis CAD- Hold clopidogrel until verification of OR status. Remaining orders and notations as noted Resident Activity Tracking Resident Involvement: Resident Care Provided Care Provided: Adult [facility] Medicine (1) CAD (coronary artery disease) Associated angina: without angina Coronary Disease-Associated Artery/Lesion type: [place] artery [place] vs. 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
[2020-08-22 05:37] LABS: Appearance Urine Clear (Clear); Bacteria Urine Automated Negative (Negative); Bilirubin Urine Negative (Negative); Blood Urine 2+ (Negative); Color Urine Yellow; Epithelial Cell Urine Auto >30 /lpf (0-5); Glucose Urine UA Trace (Negative); Ketones Urine Trace (Negative); Leukocyte Esterase Urine Negative (Negative); Nitrite Urine Negative (Negative); RBC Urine Automated >30 /hpf (0-4); Specific Gravity Urine 1.016 (1.000-1.030); Urobilinogen Urine Negative (Negative); pH Urine 7.5 (4.5-7.5)
[2020-08-22] MEDS ORDERED: ONDANSETRON INJ 2 MG/ML 2 ML VIAL ONE (05:53)
[2020-08-22 05:55] LABS: Protein Urine 3+ (Negative)
[2020-08-22 05:56] LABS: Sulfosalicylic Acid Urine Positive (Negative)
[2020-08-22] MEDS ORDERED: ONDANSETRON INJ 2 MG/ML 2 ML VIAL IV PRN ×2 (05:56→09:54)
--- NOTE | 2020-08-22 06:40 | XRay Report ---
XR shoulder RT min 2V routine HISTORY: 75 years-old Male fall acute right shoulder pain status post fall COMPARISON: Chest radiograph of same day, shoulder radiographs 04/13/2020 TECHNIQUE: 2 views of the right shoulder FINDINGS: Demineralized appearance of the bones. Mild glenohumeral and AC joint osteoarthritis. No acute fractu re, dislocation or opaque foreign body. Dual-lumen hemodialysis catheter is partially imaged. IMPRESSION: No acute fracture or dislocation. ACT 112: Negative or not required by law. The above report was generated using voice recognition software. It may contain grammatical, syntax o r spelling errors. Electronically signed by: Romel May M.D. 08/22/2020 6:38 AM
--- NOTE | 2020-08-22 06:45 | XRay Report ---
XR hip RT min 2V HISTORY: 75 years-old Male fall acute right-sided hip pain status post fall COMPARISON: Pelvis radiograph 09/06/2010 TECHNIQUE: 2 views of the right hip FINDINGS: There is an acute intertrochanteric fracture of the right hip with medial displaced lesser trochanter ic fracture fragment. No additional significant angulation or displacement. Demineralized appearance of the bones. Mild right hip osteoarthritis. The imaged right hemipelvis appears intact. Surgical cli ps project of the right inguinal tissues. IMPRESSION: Acute nondisplaced intratrochanteric fracture of the right femur. ACT 112: Negative or not required by law. The above report was generated using voice recognition software. It may contain grammatical, syntax o r spelling errors. Electronically signed by: Romel May M.D. 08/22/2020 6:44 AM
--- NOTE | 2020-08-22 06:48 | XRay Report ---
XR chest 1V portable HISTORY: 75 years-old Male pre op preoperative exam. No acute chest complaints COMPARISON: Chest radiograph 04/15/2020 TECHNIQUE: Supine AP view of the chest FINDINGS: Cardiac silhouette is moderately enlarged, unchanged. Prior median sternotomy. Calcified plaque of th e thoracic aorta. Right IJ hemodialysis catheter distal tip terminates within the expected location o f the superior cavoatrial junction. No pneumothorax, pleural effusion, airspace consolidation or over t pulmonary edema. Degenerative changes of the shoulders and spine. IMPRESSION: Cardiomegaly without acute process. ACT 112: Negative or not required by law. The above report was generated using voice recognition software. It may contain grammatical, syntax o r spelling errors. Electronically signed by: Romel May M.D. 08/22/2020 6:47 AM
--- NOTE | 2020-08-22 09:24 | Electrocardiogram Report ---
Test Reason : Blood Pressure : / mmHG Vent. Rate : 074 BPM Atrial Rate : 074 BPM P-R Int : 376 ms QRS Dur : 096 ms QT Int : 456 ms P-R-T Axes : -07 -83 184 degrees QTc Int : 506 ms Sinus rhythm with marked sinus arrhythmia with 1st degree A-V block Left axis deviation Nonspecific ST and T wave abnormality Prolonged QT Abnormal ECG When compared with ECG of 15-APR-2020 09:13, Sinus rhythm is no longer with 2nd degree A-V block (Mobitz I) T wave inversion more evident in Lateral leads QT has shortened Confirmed by Kareem Gallardo ([id number]) on 08/22/2020 9:24:26 AM Referred By: REFERRED SELF Confirmed By:Kareem Gallardo
[2020-08-22] MEDS ORDERED: HYDROCORTISONE HC 2.5% CRM 30GM TUBE EXT PRN (09:54)
[2020-08-22] MEDS ORDERED: NITROGLYCERIN SL 0.4 MG/TAB TAB SL PRN (09:54)
[2020-08-22] MEDS ORDERED: SENNA 8.6 MG TAB PO PRN (09:54)
[2020-08-22] MEDS ORDERED: HEPARIN SOD (PORCINE) 1000 UNIT/ML 10 ML VIAL IV SCH (10:00)
[2020-08-22] MEDS ORDERED: SODIUM CHLORIDE 0.9% 1000ML 1,000 ML IV PRN ×2 (10:04→10:08)
--- NOTE | 2020-08-22 10:28 | Nephrology Consultation ---
Date of Consultation August 22, 2020 Assessment & Plan (1) End stage renal failure on dialysis: Mr. Mata has end-stage renal disease, has been on hemodialysis Saturday, Saturday, Saturday. Admitted with fall at home and rt femur fracture. Currently BP, volume status, electrolyte acceptable. --hemodialysis for 3.5 hours, UF goal to EDW - continued Nephrocaps and renal diet --dose medications for GFR less than 10 --left arm nephrology precaution ( AVF) Will follow (2) Closed hip fracture: (3) Fall: (4) Anemia: History of Present Illness Reason for Consultation: End-stage renal disease on hemodialysis admitted to the hospital after a fall and femur fracture. Attending Physician: Trip Daniels MD History of Present Illness Miguel Mata is a 74-year-old gentlemen with past medical history significant for end-stage renal disease on hemodialysis, CVA, hypertension, diabetes, CHF and h/o repeated fall admitted to the hospital with fall at home and right femur fracture. Nephrology consult was requested to manage hemodialysis while inpatient. Electronic medical records including labs and imaging reviewed in detail during patient's visit. Mr. Mata was brought to the hospital after he had an episode of fall at home. On admission x-ray showed non displaced right femur intertrochanteric fracture. Hemoglobin was stable. Lab showed potassium normal. No fever, chills, shortness of breath. No sign of infection. BP, HR stable. He has h/o multiple falls at home requiring repeated hospital admissions. Currently pain is manageable when he is not moving waiting for evaluation. End-stage renal disease secondary to renovascular disease, has been on hemodialysis via right IJ tunneled dialysis catheter at [facility] on Saturday, Saturday, Saturday, has left BC AVF but not in use with h/o repeated infiltration with movement during HD. Currently he seems uncomfortable with pain but denies any other symptoms. Allergies Allergy/AdvReac Type Severity Reaction Status Date / Time adhesive Allergy Unknown BLISTERING Verified 08/22/20 03:30 OF SKIN latex Allergy Unknown Rash Verified 08/22/20 03:30 Home Medications Medication Instructions Recorded Confirmed Type Renal Caps 1 cap PO QAM #30 cap 11/20/19 08/22/20 Rx polyethylene glycol 3350 [Miralax] 17 gm PO DAILY #0 ea 12/04/19 08/22/20 Rx hydrocortisone 2.5 % topical cream 1 appln [place] DAILY PRN #28 gm 12/10/19 08/22/20 Rx with perineal applicator sennosides 8.6 mg tablet 8.6 mg PO QPM PRN #30 tab 12/31/19 08/22/20 Rx nitroglycerin [Nitrostat] 0.4 mg SL UD PRN 02/08/20 08/22/20 History atorvastatin [Lipitor] 80 mg PO HS 02/18/20 08/22/20 History clopidogrel [Plavix] 75 mg PO DAILY 02/18/20 08/22/20 History levetiracetam [Keppra] 500 mg PO 4XWK 02/18/20 08/22/20 History famotidine 40 mg tablet 40 mg PO BID #180 tab 03/01/20 08/22/20 Rx citalopram 20 mg PO QAM 03/29/20 08/22/20 History docusate sodium [Stool Softener] 100 mg PO DAILY 04/13/20 08/22/20 History amlodipine 5 mg tablet 2.5 mg PO QPM #45 tab 05/06/20 08/22/20 Rx isosorbide mononitrate 60 mg 60 mg PO DAILY #30 tab 06/07/20 08/22/20 Rx tablet,extended release 24 hr citalopram 10 mg tablet 10 mg PO HS #30 tab 07/04/20 08/22/20 Rx calcitriol 0.25 mcg capsule 0.25 mcg PO 3XWK #15 cap 08/09/20 08/22/20 Rx glipizide 2.5 mg PO UD 08/22/20 08/22/20 History Patient History Medical History (Updated 08/22/20 @ 06:13 by Mojgan Morrow DO) Benign prostatic hyperplasia CAD (coronary artery disease) s/p CABG 2007 Carotid artery stenosis s/p remote R & L endarterectomies with L re-occlusion sometime before 2010. Being monitored by [facility] neuro, on Plavix. Chronic kidney disease Congestive heart failure (CHF) Depression Diabetes mellitus, type 2 A1C 5.4% 11/2019. Not on any medication. Diabetic peripheral neuropathy Esophageal reflux Flash pulmonary edema 11/2019 Hemodialysis patient SAT/SAT/SATURDAY [facility] 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 (1 YEAR AFTER [place]) ?1989' Hyperlipidemia Hypertension Memory problem PT REPORTS "DEMENTIA" "COMES AND GOES" Myocardial Infarction 1989? Renal artery stenosis s/p left renal artery stenting; moderate right renal artery stenosis but no significant left renal artery stenosis on 11/2019 duplex Seizure disorder Stable on Keppra, no seizure for "a long time." Follows with [facility] neurology. SNHL (sensorineural hearing loss) Surgical History History of aorto-femoral bypass History of bypass graft (non vein) Aortic-femoral or bifemoral History of carotid endarterectomy L 1998, R 2009 History of cataract surgery RT/LEFT History of colonoscopy History of esophagogastroduodenoscopy (EGD) History of tooth extraction History of vascular access device IJ FOR DIAYLSIS S/P CABG (coronary artery bypass graft) (2007) [facility] Family History Brother Hypertension Hypercholesteremia Sister Diabetes Unknown Hypertension Cardiac disorder Social History Smoking Status: Unknown if ever smoked Tobacco Type: Cigarettes Cigarettes Per Day: 30; Second Hand Exposure: No; Hx Alcohol Use: No (unable to assess at this time) Hx Substance Use: No (unable to assess at this time) Preferred Language: Lithuanian Communication Ability: Impaired Visual Impairment: No Limitations Dietetic Technician Required: No Beliefs That Will Affect Care: None marital status: Current Living Situation: Spouse Current Living Situation Comment: in an apartment per Feels Safe at Home: Yes Safety Concerns: Feels Safe At This Time caffeine: No Seatbelt Use: always Review of Systems Review of Systems: All systems reviewed & are unremarkable except as noted in Subjective Physical Exam Constitutional: WD/WN, vitals as above no acute distress Eyes: PERRL, conjunctivae normal, anicteric sclerae ENMT: external ear and nose normal, oropharynx normal Ears: no hearing impairment Neck: trachea midline Respiratory: normal respiratory effort, lungs clear to auscultation Cardiovascular: RRR, no murmur, no edema Gastrointestinal (Abdomen): normal bowel sounds, soft, nontender, no hepatosplenomegaly Percussion/Palpation: abdomen nontender, no guarding and abdomen not rigid Musculoskeletal: Extremities: extremities normal to inspection and + limited ROM of extremities (RT LE painful movement) Skin: no rashes, warm and dry Neurologic: moves all extremities and awake Psychiatric: A+Ox3, euthymic affect Results & Data ([facility]) Vital Signs (Past 12 Hours) Vital Signs Temp Pulse Resp BP BP Pulse Ox 08/22/20 09:32 37.1 C 20 155/84 H 96 08/22/20 09:01 73 16 130/65 92 08/22/20 08:00 75 16 118/63 93 08/22/20 07:30 78 13 117/69 92 08/22/20 07:00 83 19 116/62 94 08/22/20 06:30 83 16 125/65 94 08/22/20 06:00 74 16 126/67 92 08/22/20 05:30 79 17 132/70 95 08/22/20 05:00 74 16 145/80 H 98 08/22/20 04:30 81 18 125/62 98 08/22/20 04:00 74 15 120/71 99 08/22/20 03:30 77 22 129/65 98 08/22/20 03:00 73 17 135/79 98 08/22/20 02:49 36.6 C 80 20 137/88 100 PG Care Time/CCT Total # of Minutes Spent Total Time Spent with Patient: Total time spent is greater than 50% in coordination of care (as documented) at patient's floor/unit and/or counseling patient: Coding Level of Care Code 55521 Inpt Consult Level 4 Diagnoses End stage renal failure on dialysis N18.6; Z99.2 Closed hip fracture S72.001A Encounter type: initial encounter Laterality: right Fall W19.XXXA Encounter type: initial encounter Anemia D64.9 (1) Closed hip fracture Encounter type: initial encounter Laterality: right Qualified Code(s): S72.001A - Fracture of unspecified part of neck of right femur, initial encounter for closed fracture (2) Fall Encounter type: initial encounter Qualified Code(s): W19.XXXA - Unspecified fall, initial encounter
[2020-08-22] MEDS ORDERED: GLUCAGON FOR INJ 1 MG VIAL IM PRN (10:45)
[2020-08-22] MEDS ORDERED: GLUCOSE 40% GEL 15 GM TUBE PO PRN (10:45)
[2020-08-22] MEDS ORDERED: DEXTROSE 50% 50 ML SYRINGE IV PRN (10:45)
[2020-08-22] MEDS ORDERED: GLUCOSE 10 TABS/TUBE PO PRN (10:45)
[2020-08-22] MEDS ORDERED: PHARMACY GLYCEMIC MGMT CONSULT PRN (10:45)
[2020-08-22] MEDS ORDERED: CARBOHYDRATES FOR HYPOGLYCEMIA PO PRN (10:45)
--- NOTE | 2020-08-22 12:20 | Pharmacy Report ---
Glycemic Control Consultation - Date of Service August 22, 2020 - Scope Scope: Glycemic Pharmacist consulted for glycemic control and to write orders per [facility] inpatient glycemic control protocol. - Objective Weight: 54.6 kg Accuchecks BSG (last 24hrs): 08/22/20 08/22/20 03:00 10:16 Glucose 134 H POC Glucose 155 H Laboratory Data (last 24hrs): 08/22/20 03:00 Potassium 4.8 Carbon Dioxide 27 Anion Gap 12.0 H Creatinine 8.11 H* Est Cr Clr Drug Dosing Not Reportable - Recent Pertinent Medications Outpatient Anti-diabetic Regimen: * Glipizide (unknown dose and last dose taken) * A1c -- patient is hemodialysis patient Risk Factors for Insulin Resistance: * Recent Surgery: planning for hip surgery * Diet: NPO - Assessment & Plan Assessment & Plan: ASSESSMENT: * Mr Mata is a 75 y/o M with a PMH of T2DM on one oral medication. Patient's admitting BSG was 134 mg/dL this morning. BSG at noon was 155 mg/dL. * Start Novolog Q6 hours with CF of 35 mg/dL (in-between weight-based stress of 2 and 3). Will not add carbohydrate ratio at this point as uncertain when patient last took his glipizide (patient has dementia so is unable to provide any additional information). * Monitor closely and will add Lantus and carbohydrate ratio once diet is ordered. PLAN FOR INPATIENT GLYCEMIC CONTROL: * Holding outpatient oral diabetes medications * Basal insulin * Lantus -- units SQ BID * Bolus insulin * NovoLog per scale ACHS or Q6hrs while NPO * Goal Range: Low 110 mg/dL - High 140 mg/dL * Correction Factor: 35 mg/dL/unit * Nutritional / Prandial insulin per carb ratio of 1 unit per - grams CHO consumed * Please note that the plan above was derived based on current level of insulin resistance and hospital stress. These recommendations are appropriate for inpatient admission only. Plan of care upon discharge will need to be reassessed to avoid potential outpatient hypo/hyperglycemia. Thank you.
[2020-08-22] MEDS ORDERED: HYDROmorphone INJ 0.5 MG/0.5 ML SYR IV STA (12:32)
--- NOTE | 2020-08-22 13:56 | CT Scan Report ---
CT head/brain wo con CLINICAL HISTORY: fall HEAD TRAUMA DIZZINESS COMPARISON STUDY: 03/03/2020 TECHNIQUE: Axial CT of the brain is performed from the vertex to the skull base. IV contrast was not administered for this examination. A dose lowering technique was utilized adhering to the principles of ALARA. CT DOSE: 788.63 mGycm FINDINGS: No intra or extra-axial mass lesions are visualized. There is no CT evidence of acute cortical infarc tion. There is no evidence of midline shift. There is no acute hemorrhage. No calvarial fractures ar e visualized. There are patchy white matter hypodensities likely on a small vessel basis. There is an old left fron timo infarct. Since the prior study, the patient has developed a right parieto-occipital infarct. This does not appear hyperacute There is mild ventricular dilatation, finding which is felt to be secondary to volume loss There is no evidence of acute sinusitis IMPRESSION: 1. Old left frontal lobe infarct 2. Interval development of a right parieto-occipital infarct which does not appear hyperacute 3. No evidence of acute hemorrhage ACT 112: Negative or not required by law. Electronically signed by: Nick Vegas M.D. 08/22/2020 1:54 PM
--- NOTE | 2020-08-22 14:46 | XRay Report ---
XR pelvis 1-2V routine CLINICAL HISTORY: inadequate R hip fracture evaluation COMPARISON: Right hip radiographs performed earlier today. FINDINGS: The sacroiliac joints and symphysis pubis are intact. No acute fracture within the pelvis is identified. There is no acute proximal left femoral fracture. Note is made of an acute intertrocha nteric fracture of the right femur. Lesser trochanter is mildly displaced. No additional acute fractu res are identified. IMPRESSION: Acute intertrochanteric fracture of the right femur. Lesser trochanter mildly displaced. ACT 112: Negative or not required by law. Electronically signed by: Madan Mancilla M.D. 08/22/2020 2:45 PM
--- NOTE | 2020-08-22 14:48 | XRay Report ---
XR femur RT 2V routine CLINICAL HISTORY: right hip pain COMPARISON: 09/06/2010 DISCUSSION: There is a mildly comminuted intertrochanteric right hip fracture. There is no dislocatio n. IMPRESSION: Intertrochanteric right hip fracture. ACT 112: Negative or not required by law. Electronically signed by: Nick Vegas M.D. 08/22/2020 2:46 PM
[2020-08-22] MEDS: DOCUSATE SODIUM 100 MG CAP PO SCH (15:54)
[2020-08-22] MEDS: HEPARIN SOD (PORCINE) 1000 UNIT/ML 10 ML VIAL IV SCH ×3 (15:54→16:14)
[2020-08-22] MEDS: POLYETHYLENE (MIRALAX) 17 GM PACK PO SCH (15:54)
[2020-08-22] MEDS: ISOSORBIDE MONO EXTENDED REL 60 MG TABCR PO SCH (15:55)
[2020-08-22] MEDS: NEPHROCAPS PO SCH (15:55)
[2020-08-22] MEDS: CITALOPRAM 20 MG TAB PO SCH ×2 (15:55→20:07)
[2020-08-22] MEDS: INSULIN ASPART 100 UNITS/ML 3 ML PEN SC SCH ×3 (15:55→23:53)
[2020-08-22] MEDS: CALCITRIOL 0.25 MCG CAPSULE PO SCH (15:55)
[2020-08-22] MEDS: FAMOTIDINE 40 MG TABLET PO SCH ×2 (15:55→20:07)
[2020-08-22] MEDS: CLOPIDOGREL BISULFATE 75 MG TAB PO SCH (15:55)
--- NOTE | 2020-08-22 18:18 | Communication Note ---
Date of Service: August 22, 2020 no meaningful HPI or ROS. seems to have hip pain. awaiting ortho input vitals noted resting comfortably but then when moving appears in discomfort - d oes fairly quickly calm once still. cardio reg no r/m/g lungs cta b/l no r/r/w good effort hip fx - for ortho eval, anticipate repair. outpt bone health management. pain control, supportive care, dvt proph otherwise as per H&P same date
--- NOTE | 2020-08-22 19:57 | Orthopedic Consultation ---
Date of Consultation August 22, 2020 Assessment & Plan (1) Closed hip fracture: Right peritrochanteric fracture with unclear fracture anatomy. Will obtain CT for certainty. Regardless, this is a nonweightbearing/bedrest situation for the right hip. He does have right-sided hemiparesis, but stabilization with a trochanteric fixation nail is likely indicated for at least pain control, unless this is a palliative care situation. After discussing with his , I think he would benefit from surgery. We will need medical optimization. We will first have to see how he does with dialysis. Cardiology would have to evaluate for a perioperative plan. If medically unfit for surgery, he will be nonweightbearing to the hip for at least 6 weeks. This risk nonunion and potentially never be able to walk again. I explained this to his . She is understanding of the need to evaluate him for potential surgery. Tentatively, appreciate medical care and optimization. Will obtain CT to define the fracture pattern in case of need of surgery. Will follow along until medically clear or we determined that he is unable to undergo surgery. History of Present Illness Reason for Consultation: Right hip fracture Attending Physician: Jonh Yeager DO History of Present Illness 75-year-old male with multiple severe medical comorbidities, most significantly end-stage renal disease, antiplatelet therapy, right hemiparesis, coronary artery disease, heart failure, dementia, was admitted after a fall with altered mental status and right hip pain. He was brought to the ED by ambulance. Subsequent radiographs demonstrated a peritrochanteric fracture of the right hip. He has a history of several falls recently. History obtained from chart review. Patient minimally participatory in history providing. I called and discussed his care with his . Princess Mata stated that he lives at home with her. She was having difficulty taking care of him due to multiple medical needs. He is a regular dialysis patient. He is ambulatory with a walker at home. He was getting some recent physical therapy. Recently, he decided he did not want to use a walker or cane and was walking on his own at times. He is confused often and unstable on his feet. He did sustain a fall at home. She is concerned about his medical problems and his ability to undergo surgery. Allergies Allergy/AdvReac Type Severity Reaction Status Date / Time adhesive Allergy Unknown BLISTERING Verified 08/22/20 03:30 OF SKIN latex Allergy Unknown Rash Verified 08/22/20 03:30 Home Medications Medication Instructions Recorded Confirmed Type Renal Caps 1 cap PO QAM #30 cap 11/20/19 08/22/20 Rx polyethylene glycol 3350 [Miralax] 17 gm PO DAILY #0 ea 12/04/19 08/22/20 Rx hydrocortisone 2.5 % topical cream 1 appln OK DAILY PRN #28 gm 12/10/19 08/22/20 Rx with perineal applicator sennosides 8.6 mg tablet 8.6 mg PO QPM PRN #30 tab 12/31/19 08/22/20 Rx nitroglycerin [Nitrostat] 0.4 mg SL UD PRN 02/08/20 08/22/20 History atorvastatin [Lipitor] 80 mg PO HS 02/18/20 08/22/20 History clopidogrel [Plavix] 75 mg PO DAILY 02/18/20 08/22/20 History levetiracetam [Keppra] 500 mg PO 4XWK 02/18/20 08/22/20 History famotidine 40 mg tablet 40 mg PO BID #180 tab 03/01/20 08/22/20 Rx citalopram 20 mg PO QAM 03/29/20 08/22/20 History docusate sodium [Stool Softener] 100 mg PO DAILY 04/13/20 08/22/20 History amlodipine 5 mg tablet 2.5 mg PO QPM #45 tab 05/06/20 08/22/20 Rx isosorbide mononitrate 60 mg 60 mg PO DAILY #30 tab 06/07/20 08/22/20 Rx tablet,extended release 24 hr citalopram 10 mg tablet 10 mg PO HS #30 tab 07/04/20 08/22/20 Rx calcitriol 0.25 mcg capsule 0.25 mcg PO 3XWK #15 cap 08/09/20 08/22/20 Rx glipizide 2.5 mg PO UD 08/22/20 08/22/20 History Patient History Medical History Benign prostatic hyperplasia CAD (coronary artery disease) s/p CABG 2007 Carotid artery stenosis s/p remote R & L endarterectomies with L re-occlusion sometime before 2010. Being monitored by [facility] neuro, on Plavix. Chronic kidney disease Congestive heart failure (CHF) Depression Diabetes mellitus, type 2 A1C 5.4% 11/2019. Not on any medication. 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 Hyperlipidemia Hypertension Memory problem PT REPORTS "DEMENTIA" "COMES AND GOES" Myocardial Infarction 1989? Renal artery stenosis s/p left renal artery stenting; moderate right renal artery stenosis but no significant left renal artery stenosis on 11/2019 duplex Seizure disorder Stable on Keppra, no seizure for "a long time." Follows with [facility] neurology. SNHL (sensorineural hearing loss) Surgical History History of aorto-femoral bypass History of bypass graft (non vein) Aortic-femoral or bifemoral History of carotid endarterectomy L 1998, R 2009 History of cataract surgery RT/LEFT History of colonoscopy History of esophagogastroduodenoscopy (EGD) History of tooth extraction History of vascular access device IJ FOR DIAYLSIS S/P CABG (coronary artery bypass graft) (2007) [facility] Family History Brother Hypertension Hypercholesteremia Sister Diabetes Unknown Hypertension Cardiac disorder Social History Smoking Status: Unknown if ever smoked Tobacco Type: Cigarettes Cigarettes Per Day: 30; Second Hand Exposure: No; Hx Alcohol Use: No (unable to assess at this time) Hx Substance Use: No (unable to assess at this time) Preferred Language: Divehi Communication Ability: Impaired Visual Impairment: No Limitations Jury Consultant Required: No Beliefs That Will Affect Care: None marital status: Current Living Situation: Spouse Current Living Situation Comment: in an apartment per Feels Safe at Home: Yes Safety Concerns: Feels Safe At This Time caffeine: No Seatbelt Use: always Review of Systems Review of Systems: Unobtainable due to cognitive status Physical Exam Physical Exam: Left lower extremity: Nontender about hip knee ankle. Positive dorsiflexion/plantarflexion. 2+ DP/PT pulses Right hip/lower extremity: The skin overlying the hip is intact without evidence of ecchymosis or disruption. He is tender palpation of the greater trochanter and in the groin. He is irritable to any manipulation of the leg. The knee is held in fixed contracture at terminal flexion. He is able to extend to 45 degrees short of full extension with gentle active assistance and coaching. Rotation of the hip for terminal extension causes too much hip pain. Minimal voluntary motor to the toes and foot/ankle. Is able to attempt hip rotation and flexion. Unable to assess sensation. Well-perfused foot and a palpable DP pulse. Constitutional: well developed and well nourished; no acute distress and not intoxicated appearing ENMT: external ear and nose normal, oropharynx normal Respiratory: normal respiratory effort; no respiratory distress Cardiovascular: Extremities: normal capillary refill; no edema Skin: no rashes, warm and dry Psychiatric: Orientation: alert and cooperative Apperance: + disheveled Eye Contact: + fair eye contact Cognition: recent memory grossly intact Insight: + limited insight Judgement: + limited judgement Results & Data ([facility]) Vital Signs (Past 12 Hours) Vital Signs Temp Pulse Pulse Pulse Resp BP BP 08/22/20 19:07 37.2 C 83 18 169/80 H 08/22/20 15:15 36.9 C 80 17 143/69 H 08/22/20 15:00 74 08/22/20 14:01 37.0 C 81 19 160/82 H 08/22/20 13:40 37.0 C 77 08/22/20 13:20 81 90/65 L 08/22/20 13:00 85 150/93 H 08/22/20 12:40 81 151/90 H 08/22/20 12:20 83 176/100 H 08/22/20 12:00 78 171/93 H 08/22/20 11:40 80 176/89 H 08/22/20 11:20 83 168/94 H 08/22/20 11:00 83 156/89 H 08/22/20 10:43 81 157/86 H 08/22/20 10:37 37.1 C 83 08/22/20 09:54 76 08/22/20 09:32 37.1 C 20 08/22/20 09:01 73 16 130/65 08/22/20 08:00 75 16 118/63 BP Pulse Ox 08/22/20 19:07 98 08/22/20 15:15 94 08/22/20 15:00 08/22/20 14:01 95 08/22/20 13:40 130/78 08/22/20 13:20 08/22/20 13:00 08/22/20 12:40 08/22/20 12:20 08/22/20 12:00 08/22/20 11:40 08/22/20 11:20 08/22/20 11:00 08/22/20 10:43 08/22/20 10:37 08/22/20 09:54 08/22/20 09:32 155/84 H 96 08/22/20 09:01 92 08/22/20 08:00 93 Laboratory Results H & H 08/22/20 Range/Units 03:00 Hgb 13.5 L (14.0-18.0) g/dL Hct 42.0 (42-52) % Coagulation 08/22/20 Range/Units 03:00 INR 1.0 (0.9-1.1) Diagnostic Findings Radiographs include AP pelvis, AP and lateral hip, and AP and lateral femur. All views are limited due to hip rotation and flexion contracture at the knee. Available images suggests a peritrochanteric fracture with extension to the subtroch region. The femoral neck is not fully evaluated. This appears amenable to a trochanteric fixation nail. PG Care Time/CCT Total # of Minutes Spent Total Time Spent with Patient: Total time spent is greater than 50% in coordination of care (as documented) at patient's floor/unit and/or counseling patient: Coding Level of Care Code 95710 Initial Inpt Care Lvl 3 Diagnoses Closed hip fracture S72.001A Encounter type: initial encounter Laterality: right (1) Closed hip fracture Encounter type: initial encounter Laterality: right Qualified Code(s): S72.001A - Fracture of unspecified part of neck of right femur, initial encounter for closed fracture
[2020-08-22] MEDS: HYDROmorphone INJ 0.5 MG/0.5 ML SYR IV PRN (20:04)
[2020-08-22] MEDS: amLODIPine BESYLATE 5 MG TAB PO SCH (20:07)
[2020-08-22] MEDS: ATORVASTATIN 40 MG TAB PO SCH ×2 (20:07→20:12)
--- NOTE | 2020-08-22 21:05 | CT Scan Report ---
RIGHT HIP CT CT DOSE: 237.42 mGy.cm HISTORY: Preop planning, femoral neck evaluation TECHNIQUE: Multiaxial CT images of the right hip were performed and reformatted in the sagittal and c oronal plane without the use of contrast. A dose lowering technique was utilized adhering to the fernando Wolf. COMPARISON: Right femur 08/22/2020. FINDINGS: There is again noted a slightly comminuted and impacted intertrochanteric fracture of the p roximal right femur. No dislocation. The avulsed lesser trochanter demonstrates up to 9 mm of medial displacement. The visualized pelvic bones are intact. A 6 mm sclerotic focus within the right superio r pubic ramus. This is indeterminate but favors a small bone island. There is 1.8 cm saccular aneurys m within the right common femoral artery. This remains unchanged. Surgical clips within the right uriah in. IMPRESSION: 1. Redemonstration of the slightly comminuted and impacted intertrochanteric fracture of the proximal right femur. No dislocation. 2. 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 This is not significantly changed. ACT 112: Negative or not required by law. Electronically signed by: Byron Austin M.D. 08/22/2020 9:04 PM
[2020-08-23] MEDS: HYDROmorphone INJ 0.5 MG/0.5 ML SYR IV PRN ×2 (02:58→11:56)
[2020-08-23] MEDS: INSULIN ASPART 100 UNITS/ML 3 ML PEN SC SCH ×4 (06:04→21:22)
[2020-08-23 06:37] LABS: Basophils # (auto) 0.03 K/uL (0-0.2); Basophils % (auto) 0.3 %; Eosinophils # (auto) 0.17 K/uL (0-0.5); Eosinophils % (auto) 1.6 %; Hematocrit (blood only) 46.8 % (42-52); Immature Granulocytes # (auto) 0.03 K/uL (0.00-0.02); Immature Granulocytes % (auto) 0.3 %; Lymphocytes # (auto) 1.87 K/uL (1.2-3.4); Lymphocytes % (auto) 17.5 %; Mean Corpuscular Hgb Conc 32.1 g/dL (32-36); Mean Corpuscular Volume 103.1 fL (80-100); Mean Platelet Volume 10.8 fL (7.4-10.4); Monocytes # (auto) 1.53 K/uL (0.11-0.59); Monocytes % (auto) 14.3 %; Neutrophils # (auto) 7.07 K/uL (1.4-6.5); Nucleated RBC # (auto) 0.02 K/uL (0-0); Nucleated RBC % (auto) 0.2 %; Platelet Count 225 K/uL (130-400); RDW Coefficient of Variation 17.9 % (11.5-14.5); RDW Standard Deviation 66.8 fL (36.4-46.3); Red Blood Count 4.54 M/uL (4.7-6.1)
[2020-08-23 07:28] LABS: Potassium 4.8 mmol/L (3.5-5.1)
[2020-08-23 07:29] LABS: BUN Creatinine Ratio 8.2 (10-20); Calcium 9.8 mg/dl (8.5-10.1); Creatinine Clr Calc Pharmacy 7.9 ml/min; Est GFR (African American) 9.9; Est GFR (Non-African American) 8.6
--- NOTE | 2020-08-23 07:56 | Nephrology Progress Note ---
Date of Service August 23, 2020 Assessment & Plan (1) End stage renal failure on dialysis: Mr. Mata has end-stage renal disease, has been on hemodialysis Saturday, Saturday, Saturday. Admitted with fall at home and rt femur fracture. Currently BP, volume status, electrolyte acceptable. Had hemodialysis yesterday. --waiting for surgery this am - continued Nephrocaps and renal diet --dose medications for GFR less than 10 --left arm nephrology precaution ( AVF) --HD tomorrow. Will follow Admission and Anticipated Discharge Date Admission Date: August 22, 2020 Jesus Rivera was seen and examined this am. He seemed uncomfortable with pain with minimum movement. Has been NPO for possible surgery this am. BP slightly elevated. Had HD yesterday. Review of Systems Review of Systems: Other (Detail ROS was not possible due to pts condition.) Physical Exam Constitutional: WD/WN, vitals as above + acute distress and + ill appearing Respiratory: normal respiratory effort, lungs clear to auscultation Cardiovascular: RRR, no murmur, no edema Results & Data ([facility]) Vital Signs (Past 12 Hours) Vital Signs Temp Pulse Resp BP BP Pulse Ox 08/23/20 07:49 37.0 C 90 20 163/92 H 93 08/23/20 03:44 37.1 C 85 16 130/85 92 08/22/20 23:47 37.1 C 64 16 134/82 92 PG Care Time/CCT Total # of Minutes Spent Total Time Spent with Patient: Total time spent is greater than 50% in coordination of care (as documented) at patient's floor/unit and/or counseling patient: Coding Level of Care Code 11282 Subseq Hosp Care Lvl 2 Diagnoses End stage renal failure on dialysis N18.6; Z99.2
[2020-08-23] MEDS: FAMOTIDINE 40 MG TABLET PO SCH ×2 (08:33→20:08)
[2020-08-23] MEDS: CITALOPRAM 20 MG TAB PO SCH ×2 (08:33→20:08)
[2020-08-23] MEDS: CLOPIDOGREL BISULFATE 75 MG TAB PO SCH (08:33)
[2020-08-23] MEDS: NEPHROCAPS PO SCH (08:33)
[2020-08-23] MEDS: DOCUSATE SODIUM 100 MG CAP PO SCH (08:33)
[2020-08-23] MEDS: ISOSORBIDE MONO EXTENDED REL 60 MG TABCR PO SCH (08:33)
[2020-08-23] MEDS: levETIRAcetam 500 MG TAB PO SCH (08:33)
[2020-08-23] MEDS: POLYETHYLENE (MIRALAX) 17 GM PACK PO SCH (08:33)
--- NOTE | 2020-08-23 09:48 | Hospitalist Progress Note ---
Date of Service August 23, 2020 Assessment & Plan (1) Hip fracture: Miguel Mata is 75y/o M with a PMH of hypercholesterolemia, GERD, coronary artery disease, renal artery stenosis, past history of cerebral infarction, DM, hemiparesis, CHF, peripheral artery disease, history of syncope, end-stage renal disease on hemodialysis, second-degree Mobitz type I; presented following a fall sustained at his house. Hip fracture: - Hip pain in the setting of hip fracture secondary to mechanical fall sustained at home - Pain control with morphine, patient may be unable to indicate if he is having pain, recommend nursing discretion - Orthopedic consultation: taken to OR for fixation of trochanteric fracture today - N.p.o. overnight pending orthopedic evaluation - Case management consulted Acute renal failure requiring hemodialysis: - Creatinine on presentation was 8, improved this AM - Nephrology consulted: continue hemodialysis MWF - Trend BMP Type 2 diabetes: - Holding home meds - Glycemic consult placed Coronary artery disease: - Continue home atorvastatin 80 mg p.o. at bedtime - Continue clopidogrel 75 mg p.o. daily - Continue nitrates History of renal artery stenosis: - Stented and hypertension well-controlled on amlodipine - Continue amlodipine 2.5mg GERD: - Continue famotidine Anxiety/depression: - Continue citalopram Constipation: - Continue docusate - Continue MiraLAX Admission and Anticipated Discharge Date Admission Date: August 22, 2020 Supervising Physician Co-Signing Physician Notes I personally examined the patient and verified all grande points of history and exam, discussed case, and agree with decision making with Dr Johnson. no real HPI or ROS. for surgery today vitals noted nad heent nc at mmm breathing unlabored no accessory muscles good effort skin no rashes no pallor or icterus neuro no focal deficits hip fx - for surgery today. medically acceptable as the risks of not repairing hip certainly outweigh his acute perioperative cardiopulmonary risks (which are not low - but in this context absolutely appears to be medically acceptable risk) otherwise as above Subjective Patient unable to engage in very meaningful conversation this morning, but able to respond seemingly appropriately in yes or no responses. Endorsing hip pain, whilst denying current abdominal pain, nausea, chest pain, or chest discomfort. Review of Systems Review of Systems: Unobtainable due to mental health condition Physical Exam Constitutional: + disheveled, cooperative and comfortable Eyes: PERRL, conjunctivae normal, anicteric sclerae Respiratory: normal respiratory effort, lungs clear to auscultation Cardiovascular: RRR, no murmur, no edema Gastrointestinal (Abdomen): normal bowel sounds, soft, nontender, no hepatosplenomegaly Psychiatric: Orientation: alert; + not oriented to person, + not oriented to place and + not oriented to time Apperance: + disheveled Results & Data Results & Data ([facility]) Vital Signs (Past 12 Hours) Vital Signs Temp Pulse Resp BP BP Pulse Ox 08/23/20 07:49 37.0 C 90 20 163/92 H 93 08/23/20 03:44 37.1 C 85 16 130/85 92 08/22/20 23:47 37.1 C 64 16 134/82 92 Laboratory Results 08/23/20 08/23/20 08/23/20 Range/Units 11:07 07:14 06:11 WBC (4.8-10.8) K/uL RBC (4.7-6.1) M/uL Hgb (14.0-18.0) g/dL Hct (42-52) % MCV (80-100) fL MCH (25-34) pg MCHC (32-36) g/dL RDW Std Deviation (36.4-46.3) fL RDW Coeff of Shayy (11.5-14.5) % Plt Count (130-400) K/uL MPV (7.4-10.4) fL Immature Gran % (Auto) % Neut % (Auto) % Lymph % (Auto) % Benton % (Auto) % Eos % (Auto) % Baso % (Auto) % Neut # (Auto) (1.4-6.5) K/uL Lymph # (Auto) (1.2-3.4) K/uL Benton # (Auto) (0.11-0.59) K/uL Eos # (Auto) (0-0.5) K/uL Baso # (Auto) (0-0.2) K/uL Immature Gran # (Auto) (0.00-0.02) K/uL Absolute Nucleated RBC (0-0) K/uL Nucleated RBC % (auto) % Sodium 137 (136-145) mmol/L Potassium 4.8 (3.5-5.1) mmol/L Chloride 99 (98-107) mmol/L Carbon Dioxide 31 (21-32) mmol/L Anion Gap 7.0 (3-11) BUN 48 H (7-18) mg/dl Creatinine 5.90 H* D (0.6-1.4) mg/dl Est Cr Clr Drug Dosing 7.9 ml/min Est GFR ( Amer) 9.9 Est GFR (Non-Af Amer) 8.6 BUN/Creatinine Ratio 8.2 L (10-20) Glucose 116 H (70-99) mg/dl POC Glucose 110 H 120 H (70-99) mg/dl Calcium 9.8 (8.5-10.1) mg/dl 08/23/20 08/23/20 08/22/20 Range/Units 06:11 05:58 23:50 WBC 10.70 (4.8-10.8) K/uL RBC 4.54 L (4.7-6.1) M/uL Hgb 15.0 (14.0-18.0) g/dL Hct 46.8 (42-52) % MCV 103.1 H (80-100) fL MCH 33.0 (25-34) pg MCHC 32.1 (32-36) g/dL RDW Std Deviation 66.8 H (36.4-46.3) fL RDW Coeff of Shayy 17.9 H (11.5-14.5) % Plt Count 225 (130-400) K/uL MPV 10.8 H (7.4-10.4) fL Immature Gran % (Auto) 0.3 % Neut % (Auto) 66.0 % Lymph % (Auto) 17.5 % Benton % (Auto) 14.3 % Eos % (Auto) 1.6 % Baso % (Auto) 0.3 % Neut # (Auto) 7.07 H (1.4-6.5) K/uL Lymph # (Auto) 1.87 (1.2-3.4) K/uL Benton # (Auto) 1.53 H (0.11-0.59) K/uL Eos # (Auto) 0.17 (0-0.5) K/uL Baso # (Auto) 0.03 (0-0.2) K/uL Immature Gran # (Auto) 0.03 H (0.00-0.02) K/uL Absolute Nucleated RBC 0.02 H (0-0) K/uL Nucleated RBC % (auto) 0.2 % Sodium (136-145) mmol/L Potassium (3.5-5.1) mmol/L Chloride (98-107) mmol/L Carbon Dioxide (21-32) mmol/L Anion Gap (3-11) BUN (7-18) mg/dl Creatinine (0.6-1.4) mg/dl Est Cr Clr Drug Dosing ml/min Est GFR ( Amer) Est GFR (Non-Af Amer) BUN/Creatinine Ratio (10-20) Glucose (70-99) mg/dl POC Glucose 119 H 129 H (70-99) mg/dl Calcium (8.5-10.1) mg/dl 08/22/20 Range/Units 18:36 WBC (4.8-10.8) K/uL RBC (4.7-6.1) M/uL Hgb (14.0-18.0) g/dL Hct (42-52) % MCV (80-100) fL MCH (25-34) pg MCHC (32-36) g/dL RDW Std Deviation (36.4-46.3) fL RDW Coeff of Shayy (11.5-14.5) % Plt Count (130-400) K/uL MPV (7.4-10.4) fL Immature Gran % (Auto) % Neut % (Auto) % Lymph % (Auto) % Benton % (Auto) % Eos % (Auto) % Baso % (Auto) % Neut # (Auto) (1.4-6.5) K/uL Lymph # (Auto) (1.2-3.4) K/uL Benton # (Auto) (0.11-0.59) K/uL Eos # (Auto) (0-0.5) K/uL Baso # (Auto) (0-0.2) K/uL Immature Gran # (Auto) (0.00-0.02) K/uL Absolute Nucleated RBC (0-0) K/uL Nucleated RBC % (auto) % Sodium (136-145) mmol/L Potassium (3.5-5.1) mmol/L Chloride (98-107) mmol/L Carbon Dioxide (21-32) mmol/L Anion Gap (3-11) BUN (7-18) mg/dl Creatinine (0.6-1.4) mg/dl Est Cr Clr Drug Dosing ml/min Est GFR ( Amer) Est GFR (Non-Af Amer) BUN/Creatinine Ratio (10-20) Glucose (70-99) mg/dl POC Glucose 104 H (70-99) mg/dl Calcium (8.5-10.1) mg/dl Medications Administered Current Inpatient Medications Acetaminophen (Acetaminophen 325 Mg Tab) 650 mg PO Q4H PRN PRN Reason: Pain or Fever Stop: 09/21/20 09:53 Amlodipine Besylate (Amlodipine Besylate 5 Mg Tab) 2.5 mg PO QPM [facility] Stop: 09/21/20 20:59 Last Admin: 08/22/20 20:07 Dose: 2.5 mg Documented by: Atorvastatin Calcium (Atorvastatin 40 Mg Tab) 80 mg PO HS [facility] Stop: 09/21/20 20:59 Last Admin: 08/22/20 20:12 Dose: Not Given Documented by: Atropine Sulfate (Atropine Sulfate 0.1 Mg/Ml 10ml Syr) 0.5 mg IV Q1M PRN PRN Reason: PACU Use-HR<40 &/or Bradycardi Stop: 08/23/20 23:46 Calcitriol (Calcitriol 0.25 Mcg Capsule) 0.25 mcg PO MoWeFr@0900 [facility] Stop: 09/21/20 10:59 Last Admin: 08/22/20 15:55 Dose: Not Given Documented by: Citalopram Hydrobromide (Citalopram 20 Mg Tab) 10 mg PO HS [facility] Stop: 09/21/20 20:59 Last Admin: 08/22/20 20:07 Dose: 10 mg Documented by: Citalopram Hydrobromide (Citalopram 20 Mg Tab) 20 mg PO QAM [facility] Stop: 09/21/20 10:59 Last Admin: 08/23/20 08:33 Dose: Not Given Documented by: Clopidogrel Bisulfate (Clopidogrel Bisulfate 75 Mg Tab) 75 mg PO DAILY [facility] Stop: 09/21/20 10:59 Last Admin: 08/23/20 08:33 Dose: Not Given Documented by: Dextrose (Dextrose 50% 50 Ml Syringe) 25 - 50 ml IV UD PRN; Protocol PRN Reason: Hypoglycemia Protocol Stop: 09/21/20 10:44 Docusate Sodium (Docusate Sodium 100 Mg Cap) 100 mg PO DAILY [facility] Stop: 09/21/20 09:53 Last Admin: 08/23/20 08:33 Dose: Not Given Documented by: Ephedrine Sulfate (Ephedrine Sulfate 50 Mg/Ml Amp) 5 mg IV Q5M PRN PRN Reason: PACU Use Only-SBP<90 mmHg Stop: 08/23/20 23:46 Famotidine (Famotidine 40 Mg Tablet) 40 mg PO BID [facility] Stop: 09/21/20 10:59 Last Admin: 08/23/20 08:33 Dose: Not Given Documented by: Fentanyl Citrate (Fentanyl Citrate 100 Mcg/2 Ml Vial) 25 mcg IV Q5M PRN PRN Reason: PACU Use Only-Pain Stop: 08/23/20 23:46 Glucagon (Glucagon For Inj 1 Mg Vial) 1 mg IM UD PRN; Protocol PRN Reason: Hypoglycemia Protocol Stop: 09/21/20 10:44 Glucose (Glucose 40% Gel 15 Gm Tube) 15 - 30 gm PO UD PRN; Protocol PRN Reason: Hypoglycemia Protocol Stop: 09/21/20 10:44 Glucose (Glucose 10 Tabs/Tube) 4 - 8 tabs PO UD PRN; Protocol PRN Reason: Hypoglycemia Protocol Stop: 09/21/20 10:44 Hydrocortisone (Hydrocortisone Hc 2.5% Crm 30gm Tube) 1 appln EXT DAILY PRN PRN Reason: itching Stop: 09/21/20 09:53 Hydromorphone HCl (Hydromorphone Inj 0.5 Mg/0.5 Ml Syr) 0.5 mg IV Q4 PRN PRN Reason: Pain Stop: 09/05/20 18:11 Last Admin: 08/23/20 11:56 Dose: 0.5 mg Documented by: Insulin Aspart (Insulin Aspart 100 Units/Ml 3 Ml Pen) 0 units SC Q6 [facility] Stop: 09/21/20 11:59 Last Admin: 08/23/20 11:23 Dose: Not Given Documented by: Isosorbide Mononitrate (Isosorbide Benton Extended Rel 60 Mg Tabcr) 60 mg PO DAILY [facility] Stop: 09/21/20 10:59 Last Admin: 08/23/20 08:33 Dose: Not Given Documented by: Levetiracetam (Levetiracetam 500 Mg Tab) 500 mg PO [id number]@0900 [facility] Stop: 09/22/20 08:59 Last Admin: 08/23/20 08:33 Dose: Not Given Documented by: Miscellaneous (Carbohydrates For Hypoglycemia ) 15 - 30 gm PO UD PRN PRN Reason: Hypoglycemia Treatment Stop: 09/21/20 10:44 Miscellaneous Information (Pharmacy Glycemic Mgmt Consult) 1 ea N/A UD PRN PRN Reason: Consult Stop: 09/21/20 10:44 Nitroglycerin (Nitroglycerin Sl 0.4 Mg/Tab Tab) 0.4 mg SL UD PRN PRN Reason: Chest Pain Stop: 09/21/20 09:53 Ondansetron HCl (Ondansetron Inj 2 Mg/Ml 2 Ml Vial) 4 mg IV Q6H PRN PRN Reason: Nausea Stop: 09/21/20 09:53 Ondansetron HCl (Ondansetron Inj 2 Mg/Ml 2 Ml Vial) 4 mg IV ONCE PRN PRN Reason: PACU Use Only-Nausea/Vomiting Stop: 08/23/20 23:46 Polyethylene Glycol (Polyethylene (Miralax) 17 Gm Pack) 17 gm PO DAILY [facility] Stop: 09/21/20 09:53 Last Admin: 08/23/20 08:33 Dose: Not Given Documented by: Sennosides (Senna 8.6 Mg Tab) 8.6 mg PO QPM PRN PRN Reason: Constipation Stop: 09/21/20 09:53 Vitamin B Complex/Folic Acid (Nephrocaps) 1 cap PO QAM [facility] Stop: 09/21/20 10:59 Last Admin: 08/23/20 08:33 Dose: Not Given Documented by: Resident Activity Tracking Resident Involvement: Resident Care Provided Care Provided: Adult Hospital Medicine
--- NOTE | 2020-08-23 14:40 | Cardiology Consultation ---
Date of Consultation August 23, 2020 Assessment & Plan (1) Preop cardiovascular exam: Presently stable from a cardiac standpoint. No evidence of ACS, new valvular heart disease, or uncontrolled arrhythmias. Appears euvolemic after dialysis yesterday. Patient has complex chronic coronary artery disease, multiple severe comorbidities and will be at elevated risk for any surgical procedure. Do not feel additional cardiac testing or procedures will reduce cardiac risk. Current cardiac risk is NOT prohibitive to planned surgery or anesthesia and can proceed without additional cardiac intervention. History of Present Illness Attending Physician: Jonh Yeager DO History of Present Illness Mr. Mata is a very pleasant 75 year old man with a history of cerebrovascular disease post CVA with residual RT sided weakness/aphasia/seizure disorder, lower extremity PAD post memtp-dl-tcp bypass, CAD post PCI and CABG, Type 2 DM, history of tobacco abuse, hypertension, dyslipidemia renal failure post left renal artery stenting, now on hemodialysis. Cardiology consult for preoperative risk assessment prior to possible hip fracture repair. Patient unable to provide significant history regarding event of his most recent fall. EMR records reviewed. Per documentation patient questionably more confused, dizzy prior to fall which was heard by his . Admission x-rays showed a nondisplaced right femur intertrochanteric fracture. Seen by orthopedics yesterday and trochanteric fixation nail being considered. Today appears uncomfortable in bed with wincing with movement of his right leg. He was hospitalized in March 2020 in the setting of volume overload and was noted to have an elevated troponin up to 5. Was seen by cardiology and in the absence of symptoms are not thought to be demand ischemia and further testing deferred. Last seen by me July 2020. Was doing fine at that time, doing dialysis and denied continues and denied any chest pain, significant shortness of breath. Activity limited primarily to in his wheelchair. Prior Cardiovascular procedures: Renal artery duplex at [facility] 11/2019: Right renal atrophy, left PSV 175 Echo 11/2019: LVEF 50 to 55%, hypokinetic basal posterior wall, mild MR, mild TR Renal artery stenting 09/2019: 5.0 x 15 mm Herculink stent to ostial left radial artery Cath Abby 08/2012 (via left ulnar artery): LM 80%, mLAD 90% dLAD 95%, pLCx 99%, pRCA 100%. mid SVG-LAD 50%. distal SVG-OM 90%. Left to left and right and right to right collaterals. - PCI to SVG-OM (2.5 x 26 Resolute) Allergies Allergy/AdvReac Type Severity Reaction Status Date / Time adhesive Allergy Unknown BLISTERING Verified 08/22/20 03:30 OF SKIN latex Allergy Unknown Rash Verified 08/22/20 03:30 Home Medications Medication Instructions Recorded Confirmed Type Renal Caps 1 cap PO QAM #30 cap 11/20/19 08/22/20 Rx polyethylene glycol 3350 [Miralax] 17 gm PO DAILY #0 ea 12/04/19 08/22/20 Rx hydrocortisone 2.5 % topical cream 1 appln [place] DAILY PRN #28 gm 12/10/19 08/22/20 Rx with perineal applicator sennosides 8.6 mg tablet 8.6 mg PO QPM PRN #30 tab 12/31/19 08/22/20 Rx nitroglycerin [Nitrostat] 0.4 mg SL UD PRN 02/08/20 08/22/20 History atorvastatin [Lipitor] 80 mg PO HS 02/18/20 08/22/20 History clopidogrel [Plavix] 75 mg PO DAILY 02/18/20 08/22/20 History levetiracetam [Keppra] 500 mg PO 4XWK 02/18/20 08/22/20 History famotidine 40 mg tablet 40 mg PO BID #180 tab 03/01/20 08/22/20 Rx citalopram 20 mg PO QAM 03/29/20 08/22/20 History docusate sodium [Stool Softener] 100 mg PO DAILY 04/13/20 08/22/20 History amlodipine 5 mg tablet 2.5 mg PO QPM #45 tab 05/06/20 08/22/20 Rx isosorbide mononitrate 60 mg 60 mg PO DAILY #30 tab 06/07/20 08/22/20 Rx tablet,extended release 24 hr citalopram 10 mg tablet 10 mg PO HS #30 tab 07/04/20 08/22/20 Rx calcitriol 0.25 mcg capsule 0.25 mcg PO 3XWK #15 cap 08/09/20 08/22/20 Rx glipizide 2.5 mg PO UD 08/22/20 08/22/20 History Patient History Medical History Benign prostatic hyperplasia CAD (coronary artery disease) s/p CABG 2007 Carotid artery stenosis s/p remote R & L endarterectomies with L re-occlusion sometime before 2010. Being monitored by [facility] neuro, on Plavix. Chronic kidney disease Congestive heart failure (CHF) Dementia Depression Diabetes mellitus, type 2 A1C 5.4% 11/2019. Not on any medication. Diabetic peripheral neuropathy Esophageal reflux Flash pulmonary edema 11/2019 Hemodialysis patient SAT/SAT/SATURDAY [facility] 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 (1 YEAR AFTER AL) ?1989' Hyperlipidemia Hypertension Memory problem PT REPORTS "DEMENTIA" "COMES AND GOES" Myocardial Infarction 1989? Renal artery stenosis s/p left renal artery stenting; moderate right renal artery stenosis but no significant left renal artery stenosis on 11/2019 duplex Seizure disorder Stable on Keppra, no seizure for "a long time." Follows with [facility] neurology. SNHL (sensorineural hearing loss) Surgical History History of aorto-femoral bypass History of bypass graft (non vein) Aortic-femoral or bifemoral History of carotid endarterectomy L 1998, R 2009 History of cataract surgery RT/LEFT History of colonoscopy History of esophagogastroduodenoscopy (EGD) History of tooth extraction History of vascular access device IJ FOR DIAYLSIS S/P CABG (coronary artery bypass graft) (2007) [facility] Family History Brother Hypertension Hypercholesteremia Sister Diabetes Unknown Hypertension Cardiac disorder Social History Smoking Status: Unknown if ever smoked Tobacco Type: Cigarettes Cigarettes Per Day: 30; Second Hand Exposure: No; Hx Alcohol Use: No (unable to assess at this time) Hx Substance Use: No (unable to assess at this time) Preferred Language: Georgian Communication Ability: Impaired Visual Impairment: No Limitations Web Marketing Assistant Required: No Beliefs That Will Affect Care: None marital status: Current Living Situation: Spouse Current Living Situation Comment: in an apartment per Feels Safe at Home: Yes Safety Concerns: Feels Safe At This Time caffeine: No Seatbelt Use: always Assistive Devices: Walker Review of Systems Review of Systems: All systems reviewed & are unremarkable except as noted in HPI & below Physical Exam Physical Exam: General: Chronically ill, frail HEENT: Sclerae anicteric Lungs: Clear to auscultation anteriorly. Right PermCath in place Cardiac: Regular rate and rhythm, 2 out of 6 systolic ejection murmur Abdomen: Soft Extremities: Right leg externally rotated toes cool, no edema. 2+ radial pulses Skin: No rashes or lesions. Psych: Unable to provide history repeats same answers Results & Data ([facility]) Vital Signs (Past 12 Hours) Vital Signs Temp Pulse Resp BP BP Pulse Ox 08/23/20 11:50 98.6 F 82 20 98 08/23/20 07:49 98.6 F 90 20 163/92 H 93 08/23/20 03:44 98.8 F 85 16 130/85 92 Diagnostic Findings ECG reviewed: Sinus rhythm with first-degree AV block, questionable secondary AV block. Nonspecific ST changes. No significant change from prior ECG in March. Telemetry reviewedsinus rhythm, first-degree block, periods of Mobitz type I secondary AV block. No significant bradycardia PG Care Time/CCT Total # of Minutes Spent Total Time Spent with Patient: Total time spent is greater than 50% in coordination of care (as documented) at patient's floor/unit and/or counseling patient: Coding Level of Care Code 71338 Inpt Consult Level 4 Diagnoses Preop cardiovascular exam Z01.810
[2020-08-23] MEDS ORDERED: fentaNYL citrate 100 MCG/2 ML VIAL ONE (15:12)
[2020-08-23] MEDS ORDERED: ePHEDrine sulfate 50 MG/ML SYR ONE (15:23)
[2020-08-23] MEDS ORDERED: LARYING-O-JET KIT (LTA) ONE (15:23)
[2020-08-23] MEDS ORDERED: LIDOCAINE HCL 2% 2 ML VIAL/AMP(20MG/ML) INFIL ONE (15:23)
[2020-08-23] MEDS ORDERED: ROCURONIUM BROMIDE 10 MG/ML 5 ML VIAL IV ONE (15:23)
[2020-08-23] MEDS ORDERED: NEOSTIGMINE METHYLSULFATE 5 MG/5 ML SYR ONE (15:23)
[2020-08-23] MEDS ORDERED: ONDANSETRON INJ 2 MG/ML 2 ML VIAL ONE (15:23)
[2020-08-23] MEDS ORDERED: PHENYLEPHRINE HCL 10 MG/ML VIAL ONE (15:23)
[2020-08-23] MEDS ORDERED: GLYCOPYRROLATE 0.2 MG/ML VIAL ONE (15:23)
[2020-08-23] MEDS ORDERED: PROPOFOL IV EMULSION 10 MG/ML 20 ML VIAL IV ONE (15:23)
--- NOTE | 2020-08-23 15:45 | Anesthesiology Consultation ---
Date of Service August 23, 2020 Assessment & Plan (1) Encounter for pre-operative examination: Chart Review Chart Review: Acceptable Risk for Surgery Consults Requested none ASA ASA4 Proposed Anesthesia Anesthesia Type: General Anesthesia Line Insertion: Arterial line Risk / Benefits Reviewed With: PT / POA / Parent / Guardian, Accepts Plan and Informed Consent Obtained History Surgery Operation Date: 08/23/20 08:40 Proposed Procedures p Right Trochanteric Femoral Nail Synthes - Joss Young MD Height/Weight Height: 5 ft 4 in Weight: 51.6 kg Allergies Allergy/AdvReac Type Severity Reaction Status Date / Time adhesive Allergy Unknown BLISTERING Verified 08/22/20 03:30 OF SKIN latex Allergy Unknown Rash Verified 08/22/20 03:30 Medications Home Medications Medication Instructions Recorded Confirmed Last Taken Renal Caps 1 cap PO QAM #30 cap 11/20/19 08/22/20 04/04/20 16:00 polyethylene glycol 3350 [Miralax] 17 gm PO DAILY #0 ea 12/04/19 08/22/20 04/04/20 16:00 hydrocortisone 2.5 % topical cream [address] DAILY PRN #28 gm 12/10/19 08/22/20 03/03/20 with perineal applicator sennosides 8.6 mg tablet 8.6 mg PO QPM PRN #30 tab 12/31/19 08/22/20 03/03/20 nitroglycerin [Nitrostat] 0.4 mg SL UD PRN 02/08/20 08/22/20 Unknown atorvastatin [Lipitor] 80 mg PO HS 02/18/20 08/22/20 04/04/20 20:00 clopidogrel [Plavix] 75 mg PO DAILY 02/18/20 08/22/20 04/01/20 11:00 levetiracetam [Keppra] 500 mg PO 4XWK 02/18/20 08/22/20 04/04/20 16:00 famotidine 40 mg tablet 40 mg PO BID #180 tab 03/01/20 08/22/20 04/04/20 20:00 citalopram 20 mg PO QAM 03/29/20 08/22/20 04/04/20 20:00 docusate sodium [Stool Softener] 100 mg PO DAILY 04/13/20 08/22/20 Unknown amlodipine 5 mg tablet 2.5 mg PO QPM #45 tab 05/06/20 08/22/20 Unknown isosorbide mononitrate 60 mg 60 mg PO DAILY #30 tab 06/07/20 08/22/20 Unknown tablet,extended release 24 hr citalopram 10 mg tablet 10 mg PO HS #30 tab 07/04/20 08/22/20 Unknown calcitriol 0.25 mcg capsule 0.25 mcg PO 3XWK #15 cap 08/09/20 08/22/20 Unknown glipizide 2.5 mg PO UD 08/22/20 08/22/20 Unknown Active Medications Generic Name Dose Route Start Last Admin Trade Name Freq PRN Reason Stop Dose Admin Amlodipine Besylate 2.5 mg 08/22/20 21:00 08/22/20 20:07 Amlodipine Besylate 5 Mg Tab PO 09/21/20 20:59 2.5 mg QPM SEE Administration Atorvastatin Calcium 80 mg 08/22/20 21:00 08/22/20 20:12 Atorvastatin 40 Mg Tab PO 09/21/20 20:59 Not Given HS SEE Calcitriol 0.25 mcg 08/22/20 11:00 08/22/20 15:55 Calcitriol 0.25 Mcg Capsule PO 09/21/20 10:59 Not Given [email or web address] SEE Citalopram Hydrobromide 10 mg 08/22/20 21:00 08/22/20 20:07 Citalopram 20 Mg Tab PO 09/21/20 20:59 10 mg HS SEE Administration Citalopram Hydrobromide 20 mg 08/22/20 11:00 08/23/20 08:33 Citalopram 20 Mg Tab PO 09/21/20 10:59 Not Given QAM SEE Clopidogrel Bisulfate 75 mg 08/22/20 11:00 08/23/20 08:33 Clopidogrel Bisulfate 75 Mg Tab PO 09/21/20 10:59 Not Given DAILY SEE Docusate Sodium 100 mg 08/22/20 09:54 08/23/20 08:33 Docusate Sodium 100 Mg Cap PO 09/21/20 09:53 Not Given DAILY SEE Famotidine 40 mg 08/22/20 11:00 08/23/20 08:33 Famotidine 40 Mg Tablet PO 09/21/20 10:59 Not Given BID SEE Hydromorphone HCl 0.5 mg 08/22/20 18:12 08/23/20 11:56 Hydromorphone Inj 0.5 Mg/0.5 Ml Syr IV 09/05/20 18:11 0.5 mg Q4 PRN Administration Pain Insulin Aspart 0 units 08/22/20 12:00 08/23/20 11:23 Insulin Aspart 100 Units/Ml 3 Ml Pen SC 09/21/20 11:59 Not Given Q6 SEE Isosorbide Mononitrate 60 mg 08/22/20 11:00 08/23/20 08:33 Isosorbide Reagan Extended Rel 60 Mg Tabcr PO 09/21/20 10:59 Not Given DAILY SEE Levetiracetam 500 mg 08/23/20 09:00 08/23/20 08:33 Levetiracetam 500 Mg Tab PO 09/22/20 08:59 Not Given [email or web address] SEE Polyethylene Glycol 17 gm 08/22/20 09:54 08/23/20 08:33 Polyethylene (Miralax) 17 Gm Pack PO 09/21/20 09:53 Not Given DAILY SEE Vitamin B Complex/Folic Acid 1 cap 08/22/20 11:00 08/23/20 08:33 Nephrocaps PO 09/21/20 10:59 Not Given QAM SEE NPO Date Last Intake of Fluids: 08/22/20 Time Last Intake of Fluids: 00:00 Last Intake of Fluids Comment: NPO SINCE MIDNIGHT Date Last Intake of Solids: 08/22/20 Last Intake of Solids Comment: NPO SINCE MIDNIGHT Past Medical History Medical History Benign prostatic hyperplasia CAD (coronary artery disease) s/p CABG 2007 Carotid artery stenosis s/p remote R & L endarterectomies with L re-occlusion sometime before 2010. Being monitored by [facility] [place], on Plavix. Chronic kidney disease Congestive heart failure (CHF) Dementia Depression Diabetes mellitus, type 2 A1C 5.4% 11/2019. Not on any medication. 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 Renal artery stenosis s/p left renal artery stenting; moderate right renal artery stenosis but no significant left renal artery stenosis on 11/2019 duplex Seizure disorder Stable on Keppra, no seizure for "a long time." Follows with [facility] neurology. SNHL (sensorineural hearing loss) Exercise / Class Metabolic Activity III < 4 Walking/Shop/Light housework Past Family History Family History Brother Hypertension Hypercholesteremia Sister Diabetes Unknown Hypertension Cardiac disorder Past Surgical History Surgical History History of aorto-femoral bypass History of bypass graft (non vein) Aortic-femoral or bifemoral History of carotid endarterectomy L 1998, R 2009 History of cataract surgery RT/LEFT History of colonoscopy History of esophagogastroduodenoscopy (EGD) History of tooth extraction History of vascular access device IJ FOR DIAYLSIS S/P CABG (coronary artery bypass graft) (2007) [facility] Past Anesthesia History No Hx of Anesthesia Complications and No Family Hx of Anesthesia Complications History of PONV No Hx of PONV and No Hx of Motion Sickness Social History Smoking Status: Unknown if ever smoked tobacco type: cigarettes Smoking cigarettes per day: 30 Hx Alcohol Use: No (unable to assess at this time) Hx Substance Use: No (unable to assess at this time) substance use type: does not use Physical Exam Vital Signs Last Vital Signs Temp 98.8 F 08/23/20 15:06 Pulse 94 H 08/23/20 15:06 Resp 18 08/23/20 15:06 BP 165/96 H 08/23/20 15:06 Pulse Ox 98 08/23/20 15:06 ENMT Mouth: no dentition abnormality Thyromental Distance: > or= 3.5 Finger Breadths Mallampati Class: II Neck normal visual inspection Respiratory normal respiratory effort Auscultation: lungs clear to auscultation bilaterally Cardiovascular Rate/Rhythm: regular rate and regular rhythm Testing Laboratory Results 08/23/20 06:11 08/23/20 06:11 PT 11.0 Seconds (9.0-12.0) 08/22/20 03:00 INR 1.0 (0.9-1.1) 08/22/20 03:00 APTT 24.5 Seconds (21.0-31.0) 08/22/20 03:00 Urine Color Yellow 08/22/20 05:19 Urine Appearance Clear (Clear) 08/22/20 05:19 Urine pH 7.5 (4.5-7.5) 08/22/20 05:19 Ur Specific Sevier 1.016 (1.000-1.030) 08/22/20 05:19 Urine Protein 3+ (Negative) H 08/22/20 05:19 Urine Glucose (UA) Trace (Negative) H 08/22/20 05:19 Urine Ketones Trace (Negative) H 08/22/20 05:19 Urine Nitrite Negative (Negative) 08/22/20 05:19 Ur Leukocyte Esterase Negative (Negative) 08/22/20 05:19 Urine WBC (Auto) 5-10 /hpf (0-5) H 08/22/20 05:19 Urine RBC (Auto) >30 /hpf (0-4) H 08/22/20 05:19 U Hyaline Cast (Auto) 1-5 /lpf (0-5) 08/22/20 05:19 U Epithel Cells (Auto) >30 /lpf (0-5) H 08/22/20 05:19 Urine Bacteria (Auto) Negative (Negative) 08/22/20 05:19 Blood Type A Positive 08/22/20 05:19 Antibody Screen NEGATIVE 08/22/20 05:19 08/23/20 08/23/20 08/23/20 11:07 07:14 05:58 POC Glucose 110 H 120 H 119 H Electrocardiogram Sinus rhythm with marked sinus arrhythmia with 1st degree A-V block, rate 74 bpm Left axis deviation Nonspecific ST and T wave abnormality Prolonged QT Abnormal ECG When compared with ECG of 15-APR-2020 09:13, Sinus rhythm is no longer with 2nd degree A-V block (Mobitz I) T wave inversion more evident in Lateral leads QT has shortened Confirmed by Kareem Gallardo ([id number]) on 08/22/2020 9:24:26 AM Chest X-Ray Date: 08/22/20 FINDINGS: Cardiac silhouette is moderately enlarged, unchanged. Prior median sternotomy. Calcified plaque of the thoracic aorta. Right IJ hemodialysis catheter distal tip terminates within the expected location of the superior cavoatrial junction. No pneumothorax, pleural effusion, airspace consolidation or overt pulmonary edema. Degenerative changes of the shoulders and spine. IMPRESSION: Cardiomegaly without acute process. Echocardiogram Date: 11/17/19 LV systolic function is normal Hypokinesis of the proximal inferoposterior wall There is borderline concentric LVH EF 50-55% Mild MR/TR
[2020-08-23] MEDS ORDERED: ONDANSETRON INJ 2 MG/ML 2 ML VIAL IV PRN (15:46)
[2020-08-23] MEDS ORDERED: ATROPINE SULFATE 0.1 MG/ML 10ML SYR IV PRN (15:46)
[2020-08-23] MEDS ORDERED: ePHEDrine sulfate 50 MG/ML AMP IV PRN (15:46)
[2020-08-23] MEDS ORDERED: fentaNYL citrate 100 MCG/2 ML VIAL IV PRN (15:46)
[2020-08-23] MEDS ORDERED: ceFAZolin 2,000 MG/15 ML IV PUSH IV ONE (15:56)
[2020-08-23] MEDS ORDERED: ceFAZolin 2000MG 2,000 MG/15 ML SYR IV ONE (15:58)
--- NOTE | 2020-08-23 16:16 | Orthopedic Progress Note ---
Date of Service August 23, 2020 Assessment & Plan (1) Closed hip fracture: Minimally displaced peritrochanteric fracture of the right proximal femur. Patient evaluated by nephrology, cardiology, and the primary internal medicine team. After anesthesia consultation, it appears that he is medically optimized. I discussed these findings with his . I reviewed informed consent. We discussed the risks and benefits surgery, as well as alternatives which would be bedrest for prolonged period time. Surgery offers improved likelihood of pain control and weightbearing status to return to walking expeditiously. This is likely the best treatment option for the right hip fracture for both palliative/pain reasons as well as return to ambulation. We discussed the risks of surgery include but not limited to infection, neurovascular injury, arthrofibrosis, progressive degenerative change of the hip, hardware complications, nonunion/malunion, pain syndromes, blood clots, and complications related anesthesia including . We also discussed the likelihood of outcomes from it for hip fracture surgery and the possibility that this is a significant event that may precipitate further decline. His asked appropriate questions, demonstrated good understanding, and provide info rmed consent today at 1600 by phone. Proceed with right hip closed open reduction and internal fixation with short intertrochanteric fixation nail. Admission and Anticipated Discharge Date Admission Date: August 22, 2020 Subjective Patient reports no issues. He had no further questions regarding the surgery. Internal medicine team performed their evaluation. In consultation with anesthesia, it is felt that the patient is optimized as much as possible for surgery. I spoke with his at length review our informed consent discussion that I had last night on the phone. She had no further questions. She gave permission to proceed with surgery. Review of Systems Review of Systems: Unobtainable due to cognitive status Physical Exam Physical Exam: Right hip/lower extremity: No skin complications, the extremity was signed at the right hip. Constitutional: well developed and well nourished; no acute distress and not intoxicated appearing ENMT: external ear and nose normal, oropharynx normal Respiratory: normal respiratory effort; no respiratory distress Cardiovascular: Extremities: normal capillary refill; no edema Skin: no rashes, warm and dry Psychiatric: Orientation: alert and cooperative Apperance: + disheveled Eye Contact: + fair eye contact Cognition: recent memory grossly intact Insight: + limited insight Judgement: + limited judgement Results & Data ([facility]) Vital Signs (Past 12 Hours) Vital Signs Temp Pulse Pulse Resp BP BP Pulse Ox 08/23/20 15:06 37.1 C 94 H 18 165/96 H 98 08/23/20 11:50 37.0 C 82 20 98 08/23/20 07:49 37.0 C 90 20 163/92 H 93 H & H 08/22/20 08/23/20 Range/Units 03:00 06:11 Hgb 13.5 L 15.0 (14.0-18.0) g/dL Hct 42.0 46.8 (42-52) % Coagulation 08/22/20 Range/Units 03:00 INR 1.0 (0.9-1.1) PG Care Time/CCT Total # of Minutes Spent Total Time Spent with Patient: Total time spent is greater than 50% in coordination of care (as documented) at patient's floor/unit and/or counseling patient: Coding Level of Care Code None Diagnoses Closed hip fracture S72.001A Encounter type: initial encounter Laterality: right (1) Closed hip fracture Encounter type: initial encounter Laterality: right Qualified Code(s): S72.001A - Fracture of unspecified part of neck of right femur, initial encounter for closed fracture
[2020-08-23] MEDS ORDERED: BUPIVACAINE 0.25% 30 ML VIAL ONE (17:11)
[2020-08-23] MEDS ORDERED: EPINEPHrine INJ 1 MG/ML AMP ONE (17:11)
--- NOTE | 2020-08-23 17:28 | Billing Data ---
Date of Service August 23, 2020 Coding Level of Care Code 40152 Subseq Hosp Care Lvl 3
--- NOTE | 2020-08-23 18:13 | Fluoroscopy Report ---
FL hip RT 2-3V CLINICAL HISTORY: RT TROCH NAIL COMPARISON STUDY: 08/22/2020 FLUOROSCOPY TIME: 92 seconds. NUMBER OF FLUOROSCOPIC IMAGES: 2 FINDINGS: 2 intraoperative fluoroscopic spot images demonstrate internal fixation of an intratrochant owen hip fracture with a femoral neck nail and interlocking medullary cale. IMPRESSION: Internally fixated intertrochanteric right hip fracture. ACT 112: Negative or not required by law. Electronically signed by: Nick Vegas M.D. 08/23/2020 6:12 PM
--- NOTE | 2020-08-23 18:21 | Post Operative Brief Note ---
PG Immediate Post Op with CF Date of Surgery August 23, 2020 Pre & Post Diagnosis Operation Date: 08/23/20 08:40 Pre-Op Diagnosis: Minimally displaced intertrochanteric fracture of the right proximal femur Post-Op Diagnosis: Minimally displaced intertrochanteric fracture of the right proximal femur I identified the patient and participated in the time-out.: Yes Procedure Operation Date: 08/23/20 08:40 Actual Procedures p Right Trochanteric Femoral Nail Synthes(Right) - Joss Young MD Surgeon Joss Young MD Mint Machine Operator Mauro Driscoll PA-C Estimated Blood Loss 150 Findings Consistent with Post-Op Diagnosis Specimens Specimen Description: Culture: #1 - Urinary Catheter Culture
--- NOTE | 2020-08-23 18:42 | Operative Report ---
PG Post Operative Report Pre & Post Diagnosis Operation Date: 08/23/20 08:40 Pre-Op Diagnosis: Minimally displaced intertrochanteric fracture of the right proximal femur Post-Op Diagnosis: Minimally displaced intertrochanteric fracture of the right proximal femur I identified the patient and participated in the time-out.: Yes Procedure Operation Date: 08/23/20 08:40 Actual Procedures p Right Trochanteric Femoral Nail Synthes(Right) - Joss Young MD Surgeon Joss Young MD Narcotics Investigator Mauro Driscoll PA-C Estimated Blood Loss 150 Findings Consistent with Post-Op Diagnosis Specimens None Anesthesia Type General Complications none Disposition Accompanied Patient To Recovery: Yes Disposition: Recovery Room Indications 75-year-old male who fell at home 48 hours ago resulting immediate pain and i nability bear weight. Prior he was admitted through the emergency room. Radiograph exam demonstrate a peritrochanteric fracture. I evaluated patient recommend surgical fixation for pain control and return to early weightbearing. He was evaluated by cardiology, nephrology, and the anesthesia team and deemed optimized for surgery today. Informed consent was reviewed with the patient; however, it was also reviewed with his because of baseline dementia. Description of Procedure On the day of surgery should be was greeted in the preoperative holding area and the informed consent was reviewed and confirmed. The surgical site was then identified by the patient and signed by myself. The patient was taken to the operating placed by the OR table and anesthesia was induced. The patient is then positioned on the fracture table. All chi prominences were well padded. The operative foot was placed in the fracture boot with abundant padding. The well leg was secured. We then positioned the lower extremities in a scissor fashion with a non-op leg flexed down to allow visualization with fluoroscopy which was confirmed before we prepped and draped. Surgical timeout was called and verified by all present. Antibiotics were infused, and equipment was available and functional. The procedure was initiated with a closed reduction maneuvers. Gentle in-line traction pulled the fracture out to length. The limb was then internally rotated to reduce the proximal femur. Flexion and adduction were used to adjust the reduction and allow access to the greater trochanter. We had adequate reduction prior to prepping and draping. The leg was then prepped and draped in usual sterile fashion. Surgical timeout was reconfirmed. We initiated the surgical internal fixation portion with finding the start point with the tip of the greater trochanter. Fluoroscopic guidance was used and a small poke hole was established. The start point was confirmed on fluoroscopy in AP and lateral planes and the pin was advanced using a mallet. An incision was made about the pin to allow access for the reamers. The pin was then advanced past the lesser trochanter, and its position was confirmed using AP and lateral fluoroscopy. Using the protective sleeve, the short opening reamer was advanced under power with fluoroscopic guidance over the guidepin. It was advanced slowly. Given the bone quality and his overall medical condition, we determined to place a 10 mm diameter short trochanteric fixation nail, as this was the small size available. As the nail was advanced, there was much resistance is approach the isthmus in the substroke region. For that reason, we did opt to ream to a size 11. The reduction pain was then advanced down the distal femur to the level of the isthmus. We then began sequential reaming. We started with 8.5 and used fluoroscopy to guide our reaming. We advanced the reaming in gradual increments up to a [11.5]. An [10] mm nail was loaded onto the jig and advanced manually down the canal, while ensuring maintenance of the reduction on fluoroscopy. We then tapped it down into place until we achieve the good position for our cephalo-medullary screw. The cannula was placed on the jig to allow positioning of the cephalo-medullary screw. The skin incision was made in the appropriate spot. The jig cannulas were then placed against the lateral cortex. The cephalo-medullary screw guidepin was advanced towards the femoral head. The center-center position was confirmed on fluoroscopy in AP and lateral planes. The length of the screw was measured off the guide. The helical blade screw was then opened on the back table and prepared on the screwdriver. The lateral cortical opening drill, followed by the triple drill reamer for the helical blade was advanced under fluoroscopic guidance. The helical blade was advanced over the guidepin to appropriate position. The helical blade was locked in rotation and then the traction was taken off. Fluoroscopy confirmed maintenance of reduction and adequate position of the implant. The interlock screw sleeve was then placed through the jig. Corresponding skin incision was made. The femur was drilled. Unfortunately it seemed that the drill was missing the nail posteriorly, so we adjusted the position of the jig manually. This allowed through and through drilling of the nail in the sub trochanter region. 1 interlock screw was placed with a 5 mm diameter. The length was measured using a depth gauge, with fluoroscopic guidance. This completed the fixation. The jig was removed from the fixation to the nail and removed from the surgical site. The wounds were then thoroughly irrigated with bulb syringe and normal saline. The deep fascial layer was approximated with 0 Vicryl suture. The dermal layer was approximated using 2-0 Vicryl suture. The final skin closure was completed with akhil. Wounds were dressed with sterile Xeroform, sterile gauze, and [foam tape] over ABDs. The patient tolerated procedure well, awoke from anesthesia without complication, was extubated in the operating room, and transferred to the PACU in stable condition. Disposition: The patient be weightbearing as tolerated. I recommended routine DVT prophylaxis consisting of his previous clopidogrel. DVT prophylaxis should last 6 weeks. 24 hours of antibiotic prophylaxis should be continued. Physician embalmer assistant attestation: Mauro Driscoll PA-C was present and scrubbed for the duration of the case. He was essential to prepping/draping, patient positioning, retraction, and assistance with wound closure. His skilled assistance was critical to placement on the traction table and reduction maneuvers. I attest to the content of the Intraoperative Record and any orders documented therein. Any exceptions are noted below.
--- NOTE | 2020-08-23 18:49 | XRay Report ---
XR hip RT min 2V CLINICAL HISTORY: Post-Operative implant position INTERTROCHANTERIC RIGHT HIP FRACTURE COMPARISON: 08/22/2020 DISCUSSION: There is evidence for an internally fixated intertrochanteric right hip fracture. There i s a trochanteric nail and interlocking intramedullary cale. There is avulsion and distraction of the l lili trochanteric fragment. There is no dislocation. There is gas in the soft tissues consistent wit h recent surgery. There are overlying skin akhil. There Is No Evidence for Soft Tissue Swelling. IMPRESSION: Internally fixated intertrochanteric right hip fracture ACT 112: Negative or not required by law. Electronically signed by: Nick Vegas M.D. 08/23/2020 6:47 PM
--- NOTE | 2020-08-23 19:00 | Anesthesiology Progress Note ---
Date of Service August 23, 2020 Anesthesia Post Procedure Vital Signs Vital Signs: Temp Pulse Pulse Resp BP BP BP 08/23/20 18:50 94 H 15 169/94 H 174/74 H 08/23/20 18:40 86 14 175/91 H 172/62 H 08/23/20 18:30 91 H 18 148/76 H 08/23/20 18:23 97.5 F L 87 18 172/100 H 08/23/20 15:06 98.8 F 94 H 18 165/96 H 08/23/20 11:50 98.6 F 82 20 08/23/20 07:49 98.6 F 90 20 163/92 H 08/23/20 03:44 98.8 F 85 16 130/85 08/22/20 23:47 98.8 F 64 16 134/82 08/22/20 19:07 99.0 F 83 18 169/80 H Pulse Ox 08/23/20 18:50 100 08/23/20 18:40 100 08/23/20 18:30 100 08/23/20 18:23 100 08/23/20 15:06 98 08/23/20 11:50 98 08/23/20 07:49 93 08/23/20 03:44 92 08/22/20 23:47 92 08/22/20 19:07 98 Transfer of Care Handoff Completed per policy Notes Mental Status: alert / awake / arousable and participated in evaluation Patient Amnestic to Procedure: Yes Nausea / Vomiting: adequately controlled Pain: adequately controlled Airway Patency, RR, SpO2: stable & adequate BP & HR: stable & adequate Hydration State: stable & adequate Anesthetic Complications: no major complications apparent and Pt Satisfied with anesthetic care
[2020-08-23] MEDS ORDERED: NALOXONE HCL 0.4 MG/1 ML VIAL/CARP IV PRN (19:53)
[2020-08-23] MEDS: ACETAMINOPHEN 325 MG TAB PO PRN (20:08)
[2020-08-23] MEDS: amLODIPine BESYLATE 5 MG TAB PO SCH (20:08)
[2020-08-23] MEDS: ATORVASTATIN 40 MG TAB PO SCH (20:08)
[2020-08-23] MEDS ORDERED: Nursing to Pharmacy Communication SCH (20:15)
--- NOTE | 2020-08-24 05:25 | Billing Data ---
Date of Service August 24, 2020 Coding Level of Care Code 92273 Initial Inpt Care Lvl 3
[2020-08-24] MEDS: HYDROmorphone INJ 0.5 MG/0.5 ML SYR IV PRN (06:13)
[2020-08-24 07:47] LABS: Basophils # (auto) 0.01 K/uL (0-0.2); Basophils % (auto) 0.1 %; Hematocrit (blood only) 33.7 % (42-52); Hemoglobin 10.6 g/dL (14.0-18.0); Immature Granulocytes # (auto) 0.04 K/uL (0.00-0.02); Immature Granulocytes % (auto) 0.3 %; Lymphocytes # (auto) 1.13 K/uL (1.2-3.4); Mean Corpuscular Hemoglobin 32.6 pg (25-34); Mean Corpuscular Hgb Conc 31.5 g/dL (32-36); Mean Corpuscular Volume 103.7 fL (80-100); Mean Platelet Volume 10.5 fL (7.4-10.4); Monocytes # (auto) 2.26 K/uL (0.11-0.59); Monocytes % (auto) 17.9 %; Neutrophils # (auto) 9.18 K/uL (1.4-6.5); Neutrophils % (auto) 72.7 %; Nucleated RBC % (auto) 0.8 %; Platelet Count 215 K/uL (130-400); RDW Coefficient of Variation 17.5 % (11.5-14.5); RDW Standard Deviation 63.2 fL (36.4-46.3); Red Blood Count 3.25 M/uL (4.7-6.1); White Blood Count 12.62 K/uL (4.8-10.8)
[2020-08-24] MEDS: ACETAMINOPHEN 325 MG TAB PO PRN (07:52)
[2020-08-24] MEDS: INSULIN ASPART 100 UNITS/ML 3 ML PEN SC SCH ×4 (08:30→20:09)
[2020-08-24 08:38] LABS: BUN Creatinine Ratio 9.5 (10-20); Calcium 9.1 mg/dl (8.5-10.1); Creatinine Clr Calc Pharmacy 6.1 ml/min; Est GFR (African American) 7.3; Est GFR (Non-African American) 6.3; Potassium 5.4 mmol/L (3.5-5.1)
[2020-08-24] MEDS: FAMOTIDINE 40 MG TABLET PO SCH ×2 (08:58→20:08)
[2020-08-24] MEDS: CALCITRIOL 0.25 MCG CAPSULE PO SCH (08:58)
[2020-08-24] MEDS: CLOPIDOGREL BISULFATE 75 MG TAB PO SCH ×2 (08:58→09:16)
[2020-08-24] MEDS: ISOSORBIDE MONO EXTENDED REL 60 MG TABCR PO SCH ×2 (08:58→09:06)
[2020-08-24] MEDS: DOCUSATE SODIUM 100 MG CAP PO SCH (08:58)
[2020-08-24] MEDS: NEPHROCAPS PO SCH (08:58)
[2020-08-24] MEDS: CITALOPRAM 20 MG TAB PO SCH ×2 (09:05→20:08)
[2020-08-24] MEDS: POLYETHYLENE (MIRALAX) 17 GM PACK PO SCH (09:09)
--- NOTE | 2020-08-24 12:09 | Dialysis Progress Note ---
Date of Service August 24, 2020 Assessment & Plan (1) End stage renal failure on dialysis: Mr. Mata has end-stage renal disease, has been on hemodialysis Saturday, Saturday, Saturday. Admitted with fall at home and rt femur fracture, had surgery on 08/23/20. . Currently BP, volume status, electrolyte acceptable. --having hD as regular MWF schedule. - continued Nephrocaps and renal diet --dose medications for GFR less than 10 --left arm nephrology precaution ( AVF) Will follow Admission and Anticipated Discharge Date Admission Date: August 22, 2020 Jesus Rivera was seen and examined during HD this am. Tolerating HD, although BP has been low. Had surgery yesterday. Review of Systems Review of Systems: Other Physical Exam Constitutional: WD/WN, vitals as above no acute distress Respiratory: normal respiratory effort, lungs clear to auscultation Cardiovascular: RRR, no murmur, no edema Extremities: + vascular access device (Rt IJ TDC) and + AV fistula Results & Data ([facility]) Vital Signs (Past 12 Hours) Vital Signs Temp Pulse Pulse Resp BP Pulse Ox 08/24/20 08:24 36.8 C 95 H 17 96/68 L 91 08/24/20 02:39 36.9 C 95 H 17 109/70 96 Coding Level of Care Code 22966 Subseq Hosp Care Lvl 2 Diagnoses End stage renal failure on dialysis N18.6; Z99.2
--- NOTE | 2020-08-24 12:27 | Hospitalist Progress Note ---
Date of Service August 24, 2020 Assessment & Plan (1) Hip fracture: Miguel Mata is 75y/o M with a PMH of hypercholesterolemia, GERD, coronary artery disease, renal artery stenosis, past history of cerebral infarction, DM, hemiparesis, CHF, peripheral artery disease, history of syncope, end-stage renal disease on hemodialysis, second-degree Mobitz type I; presented following a fall sustained at his house. Hip fracture: - Hip pain in the setting of hip fracture secondary to mechanical fall sustained at home - Pain control with morphine, patient may be unable to indicate if he is having pain, recommend nursing discretion - Orthopedic consultation: taken to OR for fixation of trochanteric fracture today - Case management consulted Acute renal failure requiring hemodialysis: - Creatinine on presentation was 8, improved this AM - Nephrology consulted: continue hemodialysis MWF - Trend BMP Chest discomfort: - atypical anginal symptoms, more consistent with aspiration (given patient is edentulous) vs gastric distension (due to decreased stooling with narcotics) - KUB demonstrated increased stool burden throughout colon - CXR no cardiomegaly, no acute processes - EKG new inverted T-waves in V2-V6, no ST elevations or depressions - Troponin pending Type 2 diabetes: - Holding home meds - Glycemic consult placed Coronary artery disease: - Continue home atorvastatin 80 mg p.o. at bedtime - Continue clopidogrel 75 mg p.o. daily - Continue nitrates History of renal artery stenosis: - Stented and hypertension well-controlled on amlodipine - Continue amlodipine 2.5mg GERD: - Continue famotidine Anxiety/depression: - Continue citalopram Constipation: - Continue docusate - Continue MiraLAX (2) Chest discomfort: Admission and Anticipated Discharge Date Admission Date: August 22, 2020 Supervising Physician Co-Signing Physician Notes I personally examined the patient and verified all grande points of history and exam, discussed case, and agree with decision making with Dr Johnson. no real HPI or ROS. appears to be OK post op vitals noted nad heent nc at mmm breathing unlabored no accessory muscles good effort skin no rashes no pallor or icterus neuro no focal deficits hip fx - post op and doing ok esrd - hd otherwise as above Subjective Patient unable to engage in very meaningful conversation this morning, but able to respond seemingly appropriately in yes or no responses. Endorsing hip pain, whilst denying current abdominal pain, nausea, chest pain, or chest discomfort. Late in the evening, patient had some indiscriminate chest discomfort and abdominal discomfort; this was immediately following continued attempts to eat that started a prolonged coughing spell. Was evaluated at bedside shortly after this happened, patient was able to express that he was not having radiating chest pain, was having upper abdominal pain. Continued to have intermittent cough throughout this time. Review of Systems Review of Systems: Unobtainable due to cognitive status (expressive aphasia ) Physical Exam Constitutional: + disheveled, cooperative and comfortable Eyes: PERRL, conjunctivae normal, anicteric sclerae Respiratory: normal respiratory effort, lungs clear to auscultation Cardiovascular: RRR, no murmur, no edema Gastrointestinal (Abdomen): normal bowel sounds, soft, nontender, no hepatosplenomegaly Psychiatric: Orientation: alert; + not oriented to person, + not oriented to place and + not oriented to time Apperance: + disheveled Results & Data Results & Data ([facility]) Vital Signs (Past 12 Hours) Vital Signs Temp Pulse Pulse Pulse Pulse Resp BP 08/24/20 09:29 89 124/65 08/24/20 09:15 36.8 C 99 H 08/24/20 08:24 36.8 C 95 H 17 08/24/20 02:39 36.9 C 95 H 17 BP Pulse Ox 08/24/20 09:29 08/24/20 09:15 08/24/20 08:24 96/68 L 91 08/24/20 02:39 109/70 96 Laboratory Results 08/24/20 08/24/20 08/24/20 Range/Units 07:27 07:27 07:25 WBC 12.62 H (4.8-10.8) K/uL RBC 3.25 L (4.7-6.1) M/uL Hgb 10.6 L D (14.0-18.0) g/dL Hct 33.7 L (42-52) % MCV 103.7 H (80-100) fL MCH 32.6 (25-34) pg MCHC 31.5 L (32-36) g/dL RDW Std Deviation 63.2 H (36.4-46.3) fL RDW Coeff of Shayy 17.5 H (11.5-14.5) % Plt Count 215 (130-400) K/uL MPV 10.5 H (7.4-10.4) fL Immature Gran % (Auto) 0.3 % Neut % (Auto) 72.7 % Lymph % (Auto) 9.0 % Vilas % (Auto) 17.9 % Eos % (Auto) 0.0 % Baso % (Auto) 0.1 % Neut # (Auto) 9.18 H (1.4-6.5) K/uL Lymph # (Auto) 1.13 L (1.2-3.4) K/uL Vilas # (Auto) 2.26 H (0.11-0.59) K/uL Eos # (Auto) 0.00 (0-0.5) K/uL Baso # (Auto) 0.01 (0-0.2) K/uL Immature Gran # (Auto) 0.04 H (0.00-0.02) K/uL Absolute Nucleated RBC 0.10 H (0-0) K/uL Nucleated RBC % (auto) 0.8 % Sodium 135 L (136-145) mmol/L Potassium 5.4 H (3.5-5.1) mmol/L Chloride 98 (98-107) mmol/L Carbon Dioxide 22 (21-32) mmol/L Anion Gap 14.0 H (3-11) BUN 72 H (7-18) mg/dl Creatinine 7.65 H* D (0.6-1.4) mg/dl Est Cr Clr Drug Dosing 6.1 ml/min Est GFR ( Amer) 7.3 Est GFR (Non-Af Amer) 6.3 BUN/Creatinine Ratio 9.5 L (10-20) Glucose 150 H (70-99) mg/dl POC Glucose 130 H (70-99) mg/dl Calcium 9.1 (8.5-10.1) mg/dl 08/23/20 08/23/20 Range/Units 20:58 18:26 WBC (4.8-10.8) K/uL RBC (4.7-6.1) M/uL Hgb (14.0-18.0) g/dL Hct (42-52) % MCV (80-100) fL MCH (25-34) pg MCHC (32-36) g/dL RDW Std Deviation (36.4-46.3) fL RDW Coeff of Shayy (11.5-14.5) % Plt Count (130-400) K/uL MPV (7.4-10.4) fL Immature Gran % (Auto) % Neut % (Auto) % Lymph % (Auto) % Vilas % (Auto) % Eos % (Auto) % Baso % (Auto) % Neut # (Auto) (1.4-6.5) K/uL Lymph # (Auto) (1.2-3.4) K/uL Vilas # (Auto) (0.11-0.59) K/uL Eos # (Auto) (0-0.5) K/uL Baso # (Auto) (0-0.2) K/uL Immature Gran # (Auto) (0.00-0.02) K/uL Absolute Nucleated RBC (0-0) K/uL Nucleated RBC % (auto) % Sodium (136-145) mmol/L Potassium (3.5-5.1) mmol/L Chloride (98-107) mmol/L Carbon Dioxide (21-32) mmol/L Anion Gap (3-11) BUN (7-18) mg/dl Creatinine (0.6-1.4) mg/dl Est Cr Clr Drug Dosing ml/min Est GFR ( Amer) Est GFR (Non-Af Amer) BUN/Creatinine Ratio (10-20) Glucose (70-99) mg/dl POC Glucose 122 H 118 H (70-99) mg/dl Calcium (8.5-10.1) mg/dl Medications Administered Current Inpatient Medications Acetaminophen (Acetaminophen 325 Mg Tab) 650 mg PO Q4H PRN PRN Reason: Pain or Fever Stop: 09/21/20 09:53 Last Admin: 08/24/20 07:52 Dose: 650 mg Documented by: Amlodipine Besylate (Amlodipine Besylate 5 Mg Tab) 2.5 mg PO QPM [facility] Stop: 09/21/20 20:59 Last Admin: 08/23/20 20:08 Dose: 2.5 mg Documented by: Atorvastatin Calcium (Atorvastatin 40 Mg Tab) 80 mg PO HS [facility] Stop: 09/21/20 20:59 Last Admin: 08/23/20 20:08 Dose: 80 mg Documented by: Calcitriol (Calcitriol 0.25 Mcg Capsule) 0.25 mcg PO MoWeFr@0900 [facility] Stop: 09/21/20 10:59 Last Admin: 08/24/20 08:58 Dose: 0.25 mcg Documented by: Citalopram Hydrobromide (Citalopram 20 Mg Tab) 10 mg PO HS [facility] Stop: 09/21/20 20:59 Last Admin: 08/23/20 20:08 Dose: 10 mg Documented by: Citalopram Hydrobromide (Citalopram 20 Mg Tab) 20 mg PO QAM [facility] Stop: 09/21/20 10:59 Last Admin: 08/24/20 09:05 Dose: 20 mg Documented by: Clopidogrel Bisulfate (Clopidogrel Bisulfate 75 Mg Tab) 75 mg PO DAILY [facility] Stop: 09/21/20 10:59 Last Admin: 08/24/20 09:16 Dose: Not Given Documented by: Dextrose (Dextrose 50% 50 Ml Syringe) 25 - 50 ml IV UD PRN; Protocol PRN Reason: Hypoglycemia Protocol Stop: 09/21/20 10:44 Docusate Sodium (Docusate Sodium 100 Mg Cap) 100 mg PO DAILY [facility] Stop: 09/21/20 09:53 Last Admin: 08/24/20 08:58 Dose: 100 mg Documented by: Famotidine (Famotidine 40 Mg Tablet) 40 mg PO BID [facility] Stop: 09/21/20 10:59 Last Admin: 08/24/20 08:58 Dose: 40 mg Documented by: Glucagon (Glucagon For Inj 1 Mg Vial) 1 mg IM UD PRN; Protocol PRN Reason: Hypoglycemia Protocol Stop: 09/21/20 10:44 Glucose (Glucose 40% Gel 15 Gm Tube) 15 - 30 gm PO UD PRN; Protocol PRN Reason: Hypoglycemia Protocol Stop: 09/21/20 10:44 Glucose (Glucose 10 Tabs/Tube) 4 - 8 tabs PO UD PRN; Protocol PRN Reason: Hypoglycemia Protocol Stop: 09/21/20 10:44 Hydrocortisone (Hydrocortisone Hc 2.5% Crm 30gm Tube) 1 appln EXT DAILY PRN PRN Reason: itching Stop: 09/21/20 09:53 Hydromorphone HCl (Hydromorphone Inj 0.5 Mg/0.5 Ml Syr) 0.5 mg IV Q4 PRN PRN Reason: Pain Stop: 09/05/20 18:11 Last Admin: 08/24/20 06:13 Dose: 0.5 mg Documented by: Insulin Aspart (Insulin Aspart 100 Units/Ml 3 Ml Pen) 0 units SC ACHS [facility] Stop: 09/22/20 20:59 Last Admin: 08/24/20 08:30 Dose: 2 units Documented by: Isosorbide Mononitrate (Isosorbide Vilas Extended Rel 60 Mg Tabcr) 60 mg PO DAILY [facility] Stop: 09/21/20 10:59 Last Admin: 08/24/20 09:06 Dose: Not Given Documented by: Levetiracetam (Levetiracetam 500 Mg Tab) 500 mg PO SuTuThSa@0900 [facility] Stop: 09/22/20 08:59 Last Admin: 08/23/20 08:33 Dose: Not Given Documented by: Miscellaneous (Carbohydrates For Hypoglycemia ) 15 - 30 gm PO UD PRN PRN Reason: Hypoglycemia Treatment Stop: 09/21/20 10:44 Miscellaneous Information (Pharmacy Glycemic Mgmt Consult) 1 ea N/A UD PRN PRN Reason: Consult Stop: 09/21/20 10:44 Naloxone HCl (Naloxone Hcl 0.4 Mg/1 Ml Vial/Carp) 0.1 mg IV UD PRN PRN Reason: Opioid Overdose Stop: 09/22/20 19:52 Nitroglycerin (Nitroglycerin Sl 0.4 Mg/Tab Tab) 0.4 mg SL UD PRN PRN Reason: Chest Pain Stop: 09/21/20 09:53 Ondansetron HCl (Ondansetron Inj 2 Mg/Ml 2 Ml Vial) 4 mg IV Q6H PRN PRN Reason: Nausea Stop: 09/21/20 09:53 Polyethylene Glycol (Polyethylene (Miralax) 17 Gm Pack) 17 gm PO DAILY [facility] Stop: 09/21/20 09:53 Last Admin: 08/24/20 09:09 Dose: 17 gm Documented by: Sennosides (Senna 8.6 Mg Tab) 8.6 mg PO QPM PRN PRN Reason: Constipation Stop: 09/21/20 09:53 Vitamin B Complex/Folic Acid (Nephrocaps) 1 cap PO QAM [facility] Stop: 09/21/20 10:59 Last Admin: 08/24/20 08:58 Dose: 1 cap Documented by: Resident Activity Tracking Resident Involvement: Resident Care Provided Care Provided: Adult [facility] Medicine
--- NOTE | 2020-08-24 14:17 | Pharmacy Report ---
Glycemic Control Progress Note - Date of Service August 24, 2020 - Scope Glycemic Pharmacist consulted for glycemic control to write orders per [facility] inpatient glycemic control protocol. - Objective Accuchecks BSG(last 24 hours):: 08/23/20 08/23/20 08/24/20 18:26 20:58 07:25 Glucose POC Glucose 118 H 122 H 130 H 08/24/20 08/24/20 07:27 13:15 Glucose 150 H POC Glucose 167 H - Recent Pertinent Medications The patient is currently receiving: * Basal insulin: Lantus -- units every -- hours * Correctional Insulin: Novolog Correction per scale ACHS Goal Range: Low 110 mg/dL - High 140 mg/dL Correction Factor: 35 mg/dL/unit * Prandial insulin: Per carb ratio of 1 unit per 12 grams CHO consumed - Outpatient Anti-Diabetic Meds Glipizide - Assessment & Plan ASSESSMENT: * See progress note from 08/22/20 for more background info, in short: * Pt receiving SQ basal bolus insulin regimen for hyperglycemia secondary to baseline DM (outpatient regimen on hold). Patient is POD 1 from hip nailing. * Patient is currently receiving an average of 0 units of insulin per day * 0 units of basal insulin * 0 units of prandial/correctional insulin * BSGs ranging 110 - 122 mg/dl over the past 24hrs * Changes needed to insulin regimen: * AM Fasting BSG = 130 mg/dl. This is in goal range for patient based on inpatient targets and co-morbidities. Continue to hold basal insulin until BSGs > 180 mg/dL. * Post-prandial BSGs are in range. Tightened CR slightly. * Total daily dose = 0 units. Expect to be < 10 units/day. PLAN FOR INPATIENT GLYCEMIC CONTROL: * Holding basal insulin * Continuing correction factor of 35 mg/dl/unit * TIGHTENING carb ratio to 1 unit per 10 grams CHO consumed * Continuing goal range of Low 110 mg/dL - High 140 mg/dL * Please note that the plan above was derived based on current level of insulin resistance and hospital stress. These recommendations are appropriate for inpatient admission only. Plan of care upon discharge will need to be reassessed to avoid potential outpatient hypo/hyperglycemia. Thank you.
--- NOTE | 2020-08-24 18:03 | XRay Report ---
XR chest 1V portable CLINICAL HISTORY: chest discomfort COMPARISON STUDY: Chest radiograph August 22, 2020. FINDINGS: Lung volumes are normal. There is no pneumothorax or pleural effusion. There is no consolid ation or evidence for pulmonary edema. A dual lumen right internal jugular central venous catheter is in place. There are median sternotomy wires. Cardiomediastinal silhouette is stable. The appearance of the chest is unchanged. IMPRESSION: No acute cardiopulmonary findings. No change in appearance of the chest. ACT 112: Negative or not required by law. Electronically signed by: Madan Mancilla M.D. 08/24/2020 6:02 PM
--- NOTE | 2020-08-24 18:13 | XRay Report ---
KUB CLINICAL HISTORY: Abdominal pain. COMPARISON STUDY: CT of the abdomen and pelvis November 27, 2019. KUB February 08, 2020. FINDINGS: Postoperative findings from recent internal fixation of the intertrochanteric fracture of t he right femur are incidentally noted. The bowel gas pattern is normal. There is a moderate amount of poorly formed stool within the colon. Left renal artery stent is incidentally noted. Stomach is mild ly distended. IMPRESSION: 1. No evidence for a bowel obstruction. 2. Mildly distended stomach. 2. Moderate amount of poorly formed stool within the colon. ACT 112: Negative or not required by law. Electronically signed by: Madan Mancilla M.D. 08/24/2020 6:12 PM
[2020-08-24] MEDS: ATORVASTATIN 40 MG TAB PO SCH (20:07)
[2020-08-24] MEDS: amLODIPine BESYLATE 5 MG TAB PO SCH (20:07)
--- NOTE | 2020-08-24 22:30 | Orthopedic Progress Note ---
Date of Service August 24, 2020 Assessment & Plan (1) Closed hip fracture: Making uncomplicated progress on POD1 from trochanteric fixation nail. - PT/OT: WBAT, ROMAT. - Pain control per primary team - DVT ppx: chronic clopidegrel, SCDs when not ambulatory - stop 24 post surgical abx ppx - Dressing should remain until POD2, and then changed once daily or at hygeine by nursing until staple removal at 2-3 weeks postop. Lopez catheter appeared to have purulent drainage at glans after surgery, so lopez was removed and tip sent for culture. Dispo: Further inpatient stay dictated by medical needs and recommendations of PT/OT. Kiersten should be removed at week 2-3 postop and can be done at next level of care. Repeat x-rays no later than 6 weeks postop. Next care facility can coordinate with our outpatient office for telehealth care as needed. Will continue to follow while inpatient. Present on Admission?: Yes Admission and Anticipated Discharge Date Admission Date: August 22, 2020 Subjective Seen and evaluated this am. When I asked about how his hip was doing, he nodded and said 'better.' Physical Exam Physical Exam: RLE: dressing C/D/I. +DF/PF/EHL voluntary activity. Leg rested comfortably at full extension - improved from resting full flexed posture prior to surgery Constitutional: cooperative and comfortable; no acute distress and not ill appearing Results & Data ([facility]) Vital Signs (Past 12 Hours) Vital Signs Temp Pulse Pulse Pulse Pulse Resp BP 08/24/20 19:03 37.7 C H 98 H 16 08/24/20 17:36 37.1 C 96 H 26 H 08/24/20 14:44 36.8 C 80 08/24/20 13:18 36.9 C 99 H 20 08/24/20 12:40 91 H 77/42 L 08/24/20 12:20 99 H 100/62 08/24/20 12:00 100 H 96/65 L 08/24/20 11:40 107 H 100/60 08/24/20 11:20 117 H 106/65 08/24/20 11:00 103 H 96/62 L 08/24/20 10:40 91 H 74/59 L 08/24/20 10:30 92 H 94/59 L 08/24/20 10:20 71 81/35 L BP BP BP Pulse Ox 08/24/20 19:03 135/84 97 08/24/20 17:36 108/73 98 08/24/20 14:44 139/70 08/24/20 13:18 92/52 L 84/58 L 94 08/24/20 12:40 08/24/20 12:20 08/24/20 12:00 08/24/20 11:40 08/24/20 11:20 08/24/20 11:00 08/24/20 10:40 08/24/20 10:30 08/24/20 10:20 H & H 08/22/20 08/23/20 08/24/20 Range/Units 03:00 06:11 07:27 Hgb 13.5 L 15.0 10.6 L D (14.0-18.0) g/dL Hct 42.0 46.8 33.7 L (42-52) % Coagulation 08/22/20 Range/Units 03:00 INR 1.0 (0.9-1.1) Microbiology 08/23/20 18:15 Penis Gram Stain - Final 08/23/20 18:15 Penis Aerobic and Anaerobic Culture - Preliminary Gram negative bacilli Streptococcus species PG Care Time/CCT Total # of Minutes Spent Total Time Spent with Patient: Total time spent is greater than 50% in coordinat ion of care (as documented) at patient's floor/unit and/or counseling patient: Coding Level of Care Code None Diagnoses Closed hip fracture S72.001A Encounter type: initial encounter Laterality: right (1) Closed hip fracture Encounter type: initial encounter Laterality: right Qualified Code(s): S72.001A - Fracture of unspecified part of neck of right femur, initial encounter for closed fracture
[2020-08-25 07:41] LABS: Basophils # (auto) 0.02 K/uL (0-0.2); Basophils % (auto) 0.2 %; Eosinophils # (auto) 0.05 K/uL (0-0.5); Eosinophils % (auto) 0.4 %; Hematocrit (blood only) 31.7 % (42-52); Hemoglobin 10.2 g/dL (14.0-18.0); Immature Granulocytes # (auto) 0.05 K/uL (0.00-0.02); Immature Granulocytes % (auto) 0.4 %; Lymphocytes # (auto) 0.83 K/uL (1.2-3.4); Lymphocytes % (auto) 6.4 %; Mean Corpuscular Hemoglobin 32.8 pg (25-34); Mean Corpuscular Hgb Conc 32.2 g/dL (32-36); Mean Corpuscular Volume 101.9 fL (80-100); Mean Platelet Volume 10.7 fL (7.4-10.4); Monocytes # (auto) 2.01 K/uL (0.11-0.59); Monocytes % (auto) 15.4 %; Neutrophils % (auto) 77.2 %; Nucleated RBC # (auto) 0.05 K/uL (0-0); Nucleated RBC % (auto) 0.4 %; Platelet Count 200 K/uL (130-400); RDW Standard Deviation 65.6 fL (36.4-46.3); Red Blood Count 3.11 M/uL (4.7-6.1); White Blood Count 13.06 K/uL (4.8-10.8)
[2020-08-25 08:09] LABS: BUN Creatinine Ratio 10.6 (10-20); Calcium 8.6 mg/dl (8.5-10.1); Creatinine Clr Calc Pharmacy 10.1 ml/min; Est GFR (Non-African American) 10.4; Potassium 4.9 mmol/L (3.5-5.1)
[2020-08-25] MEDS: INSULIN ASPART 100 UNITS/ML 3 ML PEN SC SCH ×4 (08:12→22:00)
[2020-08-25] MEDS: CLOPIDOGREL BISULFATE 75 MG TAB PO SCH (08:13)
[2020-08-25] MEDS: levETIRAcetam 500 MG TAB PO SCH (08:14)
[2020-08-25] MEDS: ISOSORBIDE MONO EXTENDED REL 60 MG TABCR PO SCH (08:14)
[2020-08-25] MEDS: FAMOTIDINE 40 MG TABLET PO SCH ×2 (08:14→22:02)
[2020-08-25] MEDS: NEPHROCAPS PO SCH (08:14)
[2020-08-25] MEDS: DOCUSATE SODIUM 100 MG CAP PO SCH (08:17)
[2020-08-25] MEDS: CITALOPRAM 20 MG TAB PO SCH ×2 (08:17→22:02)
--- NOTE | 2020-08-25 09:11 | Hospitalist Progress Note ---
Date of Service August 25, 2020 Assessment & Plan (1) Hip fracture: Miguel Mata is 75y/o M with a PMH of hypercholesterolemia, GERD, coronary artery disease, renal artery stenosis, past history of cerebral infarction, DM, hemiparesis, CHF, peripheral artery disease, history of syncope, end-stage renal disease on hemodialysis, second-degree Mobitz type I; presented following a fall sustained at his house. Hip fracture: - Hip pain in the setting of hip fracture secondary to mechanical fall sustained at home - Pain control with morphine, patient may be unable to indicate if he is having pain, recommend nursing discretion - Orthopedic consultation: Status post right trochanteric fixation - Patient has a questionable candidate for return of home given baseline mental status and complicated diseases - Case management consulted Acute renal failure requiring hemodialysis: - Creatinine on presentation was 8, improved this AM - Nephrology consulted: continue hemodialysis MWF - Trend BMP daily Chest discomfort: - atypical anginal symptoms, more consistent with aspiration (given patient is edentulous) vs gastric distension (due to decreased stooling with narcotics) - KUB demonstrated increased stool burden throughout colon - CXR no cardiomegaly, no acute processes - EKG from 08/24 demonstrated new inverted T-waves in V2-V6, no ST elevations or depressions - EKG from this a.m. demonstrated no maintained T wave inversions, questionable ST depressions in II, III, aVF; poor baseline EKG - Troponin peaked at 0.78 overnight with subsequent downtrend - Likely contributions from ischemia secondary to decreased volume status following dialysis - Given need for dialysis as above, patient seemingly likely a tenuous volume status given potential complications from dialysis generating increased demand ischemia - Echo pending - Will avoid beta-blockers given above Type 2 diabetes: - Holding home meds - Glycemic consult placed Coronary artery disease: - Continue home atorvastatin 80 mg p.o. at bedtime - Continue clopidogrel 75 mg p.o. daily - Continue nitrates History of renal artery stenosis: - Stented and hypertension well-controlled on amlodipine - Continue amlodipine 2.5mg GERD: - Continue famotidine Anxiety/depression: - Continue citalopram Constipation: - Continue docusate - Continue MiraLAX (2) Chest discomfort: Admission and Anticipated Discharge Date Admission Date: August 22, 2020 Supervising Physician Co-Signing Physician Notes I personally examined the patient and verified all grande points of history and exam, discussed case, and agree with decision making with Dr Johnson. no meaningful HPI or ROS obtainable. BP low for a bit - fortunately appeared responsive followed some simple commands. after fluids BP increased vitals noted nad heent nc at mmm cardio reg no r/m/g lungs cta b/l no r/r/w good effort abd soft penis no lesions no erythema ext no c/c. no new focal neuro deficits hypotension - likely hypovolemia worsened by beta amrit given for demand ischemia. fortunately responded to fluids. likely more volume depleted than appears given hip fx /blood loss, and poor PO intake. fluids given - although have to use caution with further fluids since ESRD on HD and do not want to risk precipitating volume overload CAD w demand ischemia - med management. fortunately while EKG shows a degree of ischemia, troponin only remains mildly elevated. tried to initiate beta amrit but appears to be too tenuous with volume status to tolerate given hypotension above. hip fx - post op. PT/OT. otherwise as above Subjective Patient throughout the night continued to remain tachycardic up to the 110s, patient however complaining of any chest discomfort, abdominal pain, nausea; continues to remain minimally verbally responsive due to expressive aphasia able to appropriately respond yes or no to questioning. And heart rate patient was given trial of Toprol to decrease heart rate and therefore strain on heart. Shortly thereafter patient had decreased blood pressure and to systolics of 60s to 70s based off continuous volume status following dialysis in addition to decreased oral intake patient was given 500 cc normal saline bolus, this resulted in improvement in blood pressure and minimal improvement in mentation back to baseline. Review of Systems Review of Systems: Unobtainable due to cognitive status (expressive aphasia) Physical Exam Constitutional: + disheveled, cooperative and comfortable Eyes: PERRL, conjunctivae normal, anicteric sclerae Respiratory: normal respiratory effort, lungs clear to auscultation Cardiovascular: Rate/Rhythm: regular rate and regular rhythm Heart Sounds: no gallop, no murmur and no cardiac rub Vessels: normal peripheral pulses Gastrointestinal (Abdomen): Inspection/Auscultation: abdomen normal to inspection and normal bowel sounds; abdomen not distended Percussion/Palpa tion: + abdomen tender (generalized) Psychiatric: Orientation: alert; + not oriented to person, + not oriented to place and + not oriented to time Apperance: + disheveled Results & Data Results & Data ([facility]) Vital Signs (Past 12 Hours) Vital Signs Temp Pulse Pulse Resp BP BP Pulse Ox 08/25/20 09:05 37.7 C H 106 H 100/62 97 08/25/20 07:00 100 H 08/25/20 04:54 37.8 C H 99 H 20 122/83 96 08/24/20 23:55 96 H 08/24/20 23:33 37.2 C 96 H 18 112/74 97 Laboratory Results 08/25/20 08/25/20 08/25/20 Range/Units 07:31 07:31 07:22 WBC (4.8-10.8) K/uL RBC (4.7-6.1) M/uL Hgb (14.0-18.0) g/dL Hct (42-52) % MCV (80-100) fL MCH (25-34) pg MCHC (32-36) g/dL RDW Std Deviation (36.4-46.3) fL RDW Coeff of Shayy (11.5-14.5) % Plt Count (130-400) K/uL MPV (7.4-10.4) fL Immature Gran % (Auto) % Neut % (Auto) % Lymph % (Auto) % [place] % (Auto) % Eos % (Auto) % Baso % (Auto) % Neut # (Auto) (1.4-6.5) K/uL Lymph # (Auto) (1.2-3.4) K/uL [place] # (Auto) (0.11-0.59) K/uL Eos # (Auto) (0-0.5) K/uL Baso # (Auto) (0-0.2) K/uL Immature Gran # (Auto) (0.00-0.02) K/uL Absolute Nucleated RBC (0-0) K/uL Nucleated RBC % (auto) % Sodium 135 L (136-145) mmol/L Potassium 4.9 (3.5-5.1) mmol/L Chloride 96 L (98-107) mmol/L Carbon Dioxide 28 (21-32) mmol/L Anion Gap 11.0 (3-11) BUN 53 H (7-18) mg/dl Creatinine 5.04 H* D (0.6-1.4) mg/dl Est Cr Clr Drug Dosing 10.1 ml/min Est GFR ( Amer) 12.0 Est GFR (Non-Af Amer) 10.4 BUN/Creatinine Ratio 10.6 (10-20) Glucose 161 H (70-99) mg/dl POC Glucose 182 H (70-99) mg/dl Calcium 8.6 (8.5-10.1) mg/dl Troponin I (0-0.045) ng/ml Procalcitonin 7.82 H (0-0.5) ng/ml 08/25/20 08/25/20 08/25/20 Range/Units 06:52 06:48 06:48 WBC 13.06 H (4.8-10.8) K/uL RBC 3.11 L (4.7-6.1) M/uL Hgb 10.2 L (14.0-18.0) g/dL Hct 31.7 L (42-52) % MCV 101.9 H (80-100) fL MCH 32.8 (25-34) pg MCHC 32.2 (32-36) g/dL RDW Std Deviation 65.6 H (36.4-46.3) fL RDW Coeff of Shayy 18.0 H (11.5-14.5) % Plt Count 200 (130-400) K/uL MPV 10.7 H (7.4-10.4) fL Immature Gran % (Auto) 0.4 % Neut % (Auto) 77.2 % Lymph % (Auto) 6.4 % [place] % (Auto) 15.4 % Eos % (Auto) 0.4 % Baso % (Auto) 0.2 % Neut # (Auto) 10.10 H (1.4-6.5) K/uL Lymph # (Auto) 0.83 L (1.2-3.4) K/uL [place] # (Auto) 2.01 H (0.11-0.59) K/uL Eos # (Auto) 0.05 (0-0.5) K/uL Baso # (Auto) 0.02 (0-0.2) K/uL Immature Gran # (Auto) 0.05 H (0.00-0.02) K/uL Absolute Nucleated RBC 0.05 H (0-0) K/uL Nucleated RBC % (auto) 0.4 % Sodium (136-145) mmol/L Potassium (3.5-5.1) mmol/L Chloride (98-107) mmol/L Carbon Dioxide (21-32) mmol/L Anion Gap (3-11) BUN (7-18) mg/dl Creatinine (0.6-1.4) mg/dl Est Cr Clr Drug Dosing ml/min Est GFR ( Amer) Est GFR (Non-Af Amer) BUN/Creatinine Ratio (10-20) Glucose (70-99) mg/dl POC Glucose 177 H (70-99) mg/dl Calcium (8.5-10.1) mg/dl Troponin I 0.755 H* (0-0.045) ng/ml Procalcitonin (0-0.5) ng/ml 08/24/20 08/24/20 08/24/20 Range/Units 23:58 20:00 17:43 WBC (4.8-10.8) K/uL RBC (4.7-6.1) M/uL Hgb (14.0-18.0) g/dL Hct (42-52) % MCV (80-100) fL MCH (25-34) pg MCHC (32-36) g/dL RDW Std Deviation (36.4-46.3) fL RDW Coeff of Shayy (11.5-14.5) % Plt Count (130-400) K/uL MPV (7.4-10.4) fL Immature Gran % (Auto) % Neut % (Auto) % Lymph % (Auto) % [place] % (Auto) % Eos % (Auto) % Baso % (Auto) % Neut # (Auto) (1.4-6.5) K/uL Lymph # (Auto) (1.2-3.4) K/uL [place] # (Auto) (0.11-0.59) K/uL Eos # (Auto) (0-0.5) K/uL Baso # (Auto) (0-0.2) K/uL Immature Gran # (Auto) (0.00-0.02) K/uL Absolute Nucleated RBC (0-0) K/uL Nucleated RBC % (auto) % Sodium (136-145) mmol/L Potassium (3.5-5.1) mmol/L Chloride (98-107) mmol/L Carbon Dioxide (21-32) mmol/L Anion Gap (3-11) BUN (7-18) mg/dl Creatinine (0.6-1.4) mg/dl Est Cr Clr Drug Dosing ml/min Est GFR ( Amer) Est GFR (Non-Af Amer) BUN/Creatinine Ratio (10-20) Glucose (70-99) mg/dl POC Glucose 170 H (70-99) mg/dl Calcium (8.5-10.1) mg/dl Troponin I 0.489 H* 0.102 H* (0-0.045) ng/ml Procalcitonin (0-0.5) ng/ml 08/24/20 08/24/20 Range/Units 16:17 13:15 WBC (4.8-10.8) K/uL RBC (4.7-6.1) M/uL Hgb (14.0-18.0) g/dL Hct (42-52) % MCV (80-100) fL MCH (25-34) pg MCHC (32-36) g/dL RDW Std Deviation (36.4-46.3) fL RDW Coeff of Shayy (11.5-14.5) % Plt Count (130-400) K/uL MPV (7.4-10.4) fL Immature Gran % (Auto) % Neut % (Auto) % Lymph % (Auto) % [place] % (Auto) % Eos % (Auto) % Baso % (Auto) % Neut # (Auto) (1.4-6.5) K/uL Lymph # (Auto) (1.2-3.4) K/uL [place] # (Auto) (0.11-0.59) K/uL Eos # (Auto) (0-0.5) K/uL Baso # (Auto) (0-0.2) K/uL Immature Gran # (Auto) (0.00-0.02) K/uL Absolute Nucleated RBC (0-0) K/uL Nucleated RBC % (auto) % Sodium (136-145) mmol/L Potassium (3.5-5.1) mmol/L Chloride (98-107) mmol/L Carbon Dioxide (21-32) mmol/L Anion Gap (3-11) BUN (7-18) mg/dl Creatinine (0.6-1.4) mg/dl Est Cr Clr Drug Dosing ml/min Est GFR ( Amer) Est GFR (Non-Af Amer) BUN/Creatinine Ratio (10-20) Glucose (70-99) mg/dl POC Glucose 192 H 167 H (70-99) mg/dl Calcium (8.5-10.1) mg/dl Troponin I (0-0.045) ng/ml Procalcitonin (0-0.5) ng/ml Medications Administered Current Inpatient Medications Acetaminophen (Acetaminophen 325 Mg Tab) 650 mg PO Q4H PRN PRN Reason: Pain or Fever Stop: 09/21/20 09:53 Last Admin: 08/24/20 07:52 Dose: 650 mg Documented by: Amlodipine Besylate (Amlodipine Besylate 5 Mg Tab) 2.5 mg PO QPM [facility] Stop: 09/21/20 20:59 Last Admin: 08/24/20 20:07 Dose: 2.5 mg Documented by: Atorvastatin Calcium (Atorvastatin 40 Mg Tab) 80 mg PO [facility] Stop: 09/21/20 20:59 Last Admin: 08/24/20 20:07 Dose: 80 mg Documented by: Calcitriol (Calcitriol 0.25 Mcg Capsule) 0.25 mcg PO MoWeFr@0900 [facility] Stop: 09/21/20 10:59 Last Admin: 08/24/20 08:58 Dose: 0.25 mcg Documented by: Citalopram Hydrobromide (Citalopram 20 Mg Tab) 10 mg PO HS [facility] Stop: 09/21/20 20:59 Last Admin: 08/24/20 20:08 Dose: 10 mg Documented by: Citalopram Hydrobromide (Citalopram 20 Mg Tab) 20 mg PO QA [facility] Stop: 09/21/20 10:59 Last Admin: 08/25/20 08:17 Dose: 20 mg Documented by: Clopidogrel Bisulfate (Clopidogrel Bisulfate 75 Mg Tab) 75 mg PO DAILY [facility] Stop: 09/21/20 10:59 Last Admin: 08/25/20 08:13 Dose: 75 mg Documented by: Dextrose (Dextrose 50% 50 Ml Syringe) 25 - 50 ml IV UD PRN; Protocol PRN Reason: Hypoglycemia Protocol Stop: 09/21/20 10:44 Docusate Sodium (Docusate Sodium 100 Mg Cap) 100 mg PO DAILY [facility] Stop: 09/21/20 09:53 Last Admin: 08/25/20 08:17 Dose: 100 mg Documented by: Famotidine (Famotidine 40 Mg Tablet) 40 mg PO BID [facility] Stop: 09/21/20 10:59 Last Admin: 08/25/20 08:14 Dose: 40 mg Documented by: Glucagon (Glucagon For Inj 1 Mg Vial) 1 mg IM UD PRN; Protocol PRN Reason: Hypoglycemia Protocol Stop: 09/21/20 10:44 Glucose (Glucose 40% Gel 15 Gm Tube) 15 - 30 gm PO UD PRN; Protocol PRN Reason: Hypoglycemia Protocol Stop: 09/21/20 10:44 Glucose (Glucose 10 Tabs/Tube) 4 - 8 tabs PO UD PRN; Protocol PRN Reason: Hypoglycemia Protocol Stop: 09/21/20 10:44 Hydrocortisone (Hydrocortisone Hc 2.5% Crm 30gm Tube) 1 appln EXT DAILY PRN PRN Reason: itching Stop: 09/21/20 09:53 Hydromorphone HCl (Hydromorphone Inj 0.5 Mg/0.5 Ml Syr) 0.5 mg IV Q4 PRN PRN Reason: Pain Stop: 09/05/20 18:11 Last Admin: 08/24/20 06:13 Dose: 0.5 mg Documented by: Insulin Aspart (Insulin Aspart 100 Units/Ml 3 Ml Pen) 0 units SC ACHS [facility] Stop: 09/22/20 20:59 Last Admin: 08/25/20 08:12 Dose: 2 units Documented by: Insulin Glargine (Insulin Glargine Solostar 100 Units/Ml 3 Ml Pen) 5 units SC QAM [facility] Stop: 09/24/20 08:59 Isosorbide Mononitrate (Isosorbide [place] Extended Rel 60 Mg Tabcr) 60 mg PO DAILY [facility] Stop: 09/21/20 10:59 Last Admin: 08/25/20 08:14 Dose: 60 mg Documented by: Levetiracetam (Levetiracetam 500 Mg Tab) 500 mg PO SuTuThSa@0900 [facility] Stop: 09/22/20 08:59 Last Admin: 08/25/20 08:14 Dose: 500 mg Documented by: Miscellaneous (Carbohydrates For Hypoglycemia ) 15 - 30 gm PO UD PRN PRN Reason: Hypoglycemia Treatment Stop: 09/21/20 10:44 Miscellaneous Information (Pharmacy Glycemic Mgmt Consult) 1 ea N/A UD PRN PRN Reason: Consult Stop: 09/21/20 10:44 Naloxone HCl (Naloxone Hcl 0.4 Mg/1 Ml Vial/Carp) 0.1 mg IV UD PRN PRN Reason: Opioid Overdose Stop: 09/22/20 19:52 Nitroglycerin (Nitroglycerin Sl 0.4 Mg/Tab Tab) 0.4 mg SL UD PRN PRN Reason: Chest Pain Stop: 09/21/20 09:53 Ondansetron HCl (Ondansetron Inj 2 Mg/Ml 2 Ml Vial) 4 mg IV Q6H PRN PRN Reason: Nausea Stop: 09/21/20 09:53 Polyethylene Glycol (Polyethylene (Miralax) 17 Gm Pack) 17 gm PO DAILY [facility] Stop: 09/21/20 09:53 Last Admin: 08/24/20 09:09 Dose: 17 gm Documented by: Sennosides (Senna 8.6 Mg Tab) 8.6 mg PO QPM PRN PRN Reason: Constipation Stop: 09/21/20 09:53 Vitamin B Complex/Folic Acid (Nephrocaps) 1 cap PO QAM [facility] Stop: 09/21/20 10:59 Last Admin: 08/25/20 08:14 Dose: 1 cap Documented by: Resident Activity Tracking Resident Involvement: Resident Care Provided Care Provided: Adult Hospital Medicine
[2020-08-25] MEDS ORDERED: METOPROLOL TARTRATE 25 MG TAB PO SCH (09:30)
--- NOTE | 2020-08-25 09:49 | Nephrology Progress Note ---
Date of Service August 25, 2020 Assessment & Plan (1) End stage renal failure on dialysis: Mr. Mata has end-stage renal disease, on hemodialysis Saturday, Saturday, Saturday. Admitted with fall at home and rt femur fracture, had surgery on 08/23/20. . Currently BP, volume status, electrolyte acceptable. --continue HD as regular MWF schedule. - continued Nephrocaps and renal diet --dose medications for GFR less than 10 --left arm nephrology precaution ( AVF) Will follow Admission and Anticipated Discharge Date Admission Date: August 22, 2020 Jesus Rivera was seen and examined in his room this morning while he was having breakfast. Seems comfortable, no cough or respiratory distress. Blood pressure, volume status acceptable. The Review of Systems Review of Systems: Other Physical Exam Constitutional: WD/WN, vitals as above no acute distress Respiratory: normal respiratory effort, lungs clear to auscultation Cardiovascular: RRR, no murmur, no edema Skin: no rashes, warm and dry Neurologic: awake, alert Results & Data ([facility]) Vital Signs (Past 12 Hours) Vital Signs Temp Pulse Pulse Resp BP BP Pulse Ox 08/25/20 09:05 37.7 C H 106 H 100/62 97 08/25/20 07:00 100 H 08/25/20 04:54 37.8 C H 99 H 20 122/83 96 08/24/20 23:55 96 H 08/24/20 23:33 37.2 C 96 H 18 112/74 97 PG Care Time/CCT Total # of Minutes Spent Total Time Spent with Patient: Total time spent is greater than 50% in coordina tion of care (as documented) at patient's floor/unit and/or counseling patient: Coding Level of Care Code 68755 Subseq Hosp Care Lvl 2 Diagnoses End stage renal failure on dialysis N18.6; Z99.2
[2020-08-25] MEDS: INSULIN GLARGINE SOLOSTAR 100 UNITS/ML 3 ML PEN SC SCH (10:11)
[2020-08-25] MEDS: POLYETHYLENE (MIRALAX) 17 GM PACK PO SCH (10:11)
[2020-08-25] MEDS: HYDROmorphone INJ 0.5 MG/0.5 ML SYR IV PRN (10:39)
[2020-08-25] MEDS ORDERED: SODIUM CHLORIDE 0.9% 500 ML IV ONE (10:52)
--- NOTE | 2020-08-25 14:55 | Orthopedic Progress Note ---
Date of Service August 25, 2020 Assessment & Plan (1) Closed hip fracture: (1) Closed hip fracture: Making uncomplicated progress on POD1 from trochanteric fixation nail. - PT/OT: WBAT, ROMAT. - Pain control per primary team - DVT ppx: chronic clopidegrel, SCDs when not ambulatory - Dressing should remain until POD2, and then changed once daily or at hygeine by nursing until staple removal at 2-3 weeks postop. Dispo: Further inpatient stay dictated by medical needs and recommendations of PT/OT. [place] should be removed at week 2-3 postop and can be done at next level of care. Repeat x-rays no later than 6 weeks postop. Next care facility can coordinate with our outpatient office for telehealth care as needed. Will continue to follow while inpatient. Admission and Anticipated Discharge Date Admission Date: August 22, 2020 Supervising Physician Co-Signing Physician Notes Agree with PA note. Patient seen and examined. Cont POC. Subjective 75-year-old white male who is status post right hip percutaneous pinning. He seems to be doing well with regards to his hip. The hospitalist team reports that he has deteriorated somewhat in his mental status. I asked him how he is doing this hip and believe that he answered that he was doing okay not having much pain with his hip. Patient does not respond much to commands. Physical Exam Physical Exam: Patient does not appear alert and oriented. He is able to answer a couple of my questions but is mostly nonverbal. He does make eye contact with me. Sensation to touch is grossly intact right lower extremity. Incisions are covered with dressings in place. Results & Data ([facility]) Vital Signs (Past 12 Hours) Vital Signs Temp Pulse Pulse Resp BP BP Pulse Ox 08/25/20 13:40 88/60 L 08/25/20 09:05 37.7 C H 106 H 100/62 97 08/25/20 07:00 100 H 08/25/20 04:54 37.8 C H 99 H 20 122/83 96 PG Care Time/CCT Total # of Minutes Spent Total Time Spent with Patient: Total time spent is greater than 50% in coordination of care (as documented) at patient's floor/unit and/or counseling patient: Coding Level of Care Code None Diagnoses Closed hip fracture S72.001A Encounter type: initial encounter Laterality: right (1) Closed hip fracture Encounter type: initial encounter Laterality: right Qualified Code(s): S72.001A - Fracture of unspecified part of neck of right femur, initial encounter for closed fracture
--- NOTE | 2020-08-25 15:28 | Pharmacy Report ---
Pharmacy Glycemic Short Note 2 - Date of Service August 25, 2020 - Glycemic Short BSG Results (Last 24 hours): 08/24/20 08/24/20 08/25/20 16:17 20:00 06:52 Glucose POC Glucose 192 H 170 H 177 H 08/25/20 08/25/20 08/25/20 07:22 07:31 11:25 Glucose 161 H POC Glucose 182 H > 600 H* 08/25/20 11:28 Glucose POC Glucose 172 H OUTPATIENT ANTIDIABETIC REGIMEN: * Glipizide ASSESSMENT: * Patient received total of 8 units of insulin yesterday all of which was Novolog bolus. * Fasting BSG was 161 mg/dl this AM. Added basal Lantus this AM based on wt and stress factor of 1 for elevated BSG. * Patient ordered a diet this AM which is a change from yesterday. PLAN FOR INPATIENT GLYCEMIC CONTROL: * Hold outpatient oral diabetes medications * Basal insulin- added * Lantus 5 units SQ QAM * Bolus insulin: continued * NovoLog per scale ACHS or Q6hrs while NPO * Goal Range: Low 110 mg/dL - High 140 mg/dL * Correction Factor: 35 mg/dL/unit * Nutritional / Prandial insulin per carb ratio of 1 unit per 10 grams CHO consumed PLAN FOR DISCHARGE: * Continue on oral Glipizide on discharge as long as patient is not reporting hypoglycemia at home.
--- NOTE | 2020-08-25 18:30 | Billing Data ---
Date of Service August 25, 2020 Coding Level of Care Code 86880 Subseq Hosp Care Lvl 3
--- NOTE | 2020-08-25 18:31 | Billing Data ---
Date of Service August 25, 2020 Coding Level of Care Code 23460 Subseq Hosp Care Lvl 2
--- NOTE | 2020-08-25 19:46 | XCELERA ---
[id number]
[2020-08-25] MEDS: amLODIPine BESYLATE 5 MG TAB PO SCH (20:52)
[2020-08-25] MEDS: ATORVASTATIN 40 MG TAB PO SCH (22:02)
--- NOTE | 2020-08-26 06:25 | Electrocardiogram Report ---
Test Reason : Blood Pressure : / mmHG Vent. Rate : 091 BPM Atrial Rate : 091 BPM P-R Int : 248 ms QRS Dur : 098 ms QT Int : 424 ms P-R-T Axes : 245 178 005 degrees QTc Int : 522 ms Unusual P axis, possible ectopic atrial rhythm vs sinus with 1st degree AV block Lateral infarct , age undetermined Inferior-posterior infarct , age undetermined Prolonged QT Abnormal ECG When compared with ECG of 22-AUG-2020 02:38, T wave inversion now evident in Anterior leads Criteria for Lateral infarct is now Present Criteria for Inferior infarct is now Present Confirmed by Laurent Aguila ([id number]) on 08/26/2020 6:24:56 AM Referred By: REFERRED SELF Confirmed By:Laurent Aguila
--- NOTE | 2020-08-26 06:52 | Electrocardiogram Report ---
Test Reason : Blood Pressure : / mmHG Vent. Rate : 104 BPM Atrial Rate : 104 BPM P-R Int : 272 ms QRS Dur : 094 ms QT Int : 328 ms P-R-T Axes : 048 -57 134 degrees QTc Int : 431 ms Poor data quality, interpretation may be adversely affected Sinus tachycardia with 1st degree A-V block Left axis deviation Abnormal ECG When compared with ECG of 24-AUG-2020 18:05, T wave inversion no longer evident in Anterior leads Criteria for Lateral infarct is no longer Present Confirmed by Laurent Aguila ([id number]) on 08/26/2020 6:51:36 AM Referred By: REFERRED SELF Confirmed By:Laurent Aguila
[2020-08-26 07:51] LABS: BUN Creatinine Ratio 13.5 (10-20); Calcium 8.1 mg/dl (8.5-10.1); Creatinine Clr Calc Pharmacy 7.5 ml/min; Est GFR (African American) 8.6; Est GFR (Non-African American) 7.5; Potassium 6.7 mmol/L (3.5-5.1)
[2020-08-26] MEDS: INSULIN ASPART 100 UNITS/ML 3 ML PEN SC SCH ×4 (08:17→21:11)
[2020-08-26] MEDS ORDERED: CALCIUM GLUCONATE 10% 1,000 MG in SODIUM CHLORIDE 0.9% 50 ML IV ONE (08:30)
[2020-08-26] MEDS ORDERED: DEXTROSE 50% 50 ML SYRINGE IV ONE (08:30)
[2020-08-26] MEDS ORDERED: INSULIN HUMAN REGULAR PER UNIT 10 UNITS in SYRINGE 9.9 ML IV ONE (08:30)
[2020-08-26 08:52] LABS: Hematocrit (blood only) 26.8 % (42-52); Hemoglobin 8.6 g/dL (14.0-18.0); Mean Corpuscular Hemoglobin 32.6 pg (25-34); Mean Corpuscular Volume 101.5 fL (80-100); Mean Platelet Volume 10.1 fL (7.4-10.4); Nucleated RBC # (auto) 0.03 K/uL (0-0); Nucleated RBC % (auto) 0.2 %; Platelet Count 202 K/uL (130-400); RDW Coefficient of Variation 17.3 % (11.5-14.5); RDW Standard Deviation 63.5 fL (36.4-46.3); Red Blood Count 2.64 M/uL (4.7-6.1); White Blood Count 17.76 K/uL (4.8-10.8)
[2020-08-26] MEDS ORDERED: CALCIUM GLUCONATE 10% 1,000 MG in 0.9 % SODIUM CHLORIDE 100 ML IV ONE (09:00)
[2020-08-26] MEDS: CLOPIDOGREL BISULFATE 75 MG TAB PO SCH (09:10)
[2020-08-26] MEDS: INSULIN GLARGINE SOLOSTAR 100 UNITS/ML 3 ML PEN SC SCH (09:10)
[2020-08-26] MEDS: ISOSORBIDE MONO EXTENDED REL 60 MG TABCR PO SCH (09:10)
[2020-08-26] MEDS: CALCITRIOL 0.25 MCG CAPSULE PO SCH (09:10)
[2020-08-26] MEDS: NEPHROCAPS PO SCH (09:11)
[2020-08-26] MEDS: DOCUSATE SODIUM 100 MG CAP PO SCH (09:11)
[2020-08-26] MEDS: CITALOPRAM 20 MG TAB PO SCH ×2 (09:11→20:29)
[2020-08-26] MEDS: FAMOTIDINE 40 MG TABLET PO SCH ×2 (09:11→20:28)
[2020-08-26 09:13] LABS: Mean Corpuscular Hgb Conc 32.1 g/dL (32-36)
[2020-08-26 09:18] LABS: Basophils # (auto) 0.01 K/uL (0-0.2); Basophils % (auto) 0.1 %; Echinocytes 1+; Eosinophils # (auto) 0.01 K/uL (0-0.5); Eosinophils % (auto) 0.1 %; Immature Granulocytes # (auto) 0.06 K/uL (0.00-0.02); Immature Granulocytes % (auto) 0.3 %; Lymphocytes # (auto) 2.39 K/uL (1.2-3.4); Lymphocytes % (auto) 13.5 %; Monocytes # (auto) 0.76 K/uL (0.11-0.59); Monocytes % (auto) 4.3 %; Neutrophils # (auto) 14.53 K/uL (1.4-6.5); Neutrophils % (auto) 81.7 %; Polychromasia 1+
[2020-08-26] MEDS ORDERED: EPOETIN ALFA 4,000 UNIT/ML VIAL IV ONE (10:00)
[2020-08-26] MEDS: POLYETHYLENE (MIRALAX) 17 GM PACK PO SCH (10:11)
[2020-08-26] MEDS ORDERED: ceFAZolin 2000MG 2,000 MG/15 ML SYR IV SCH (12:00)
--- NOTE | 2020-08-26 12:00 | Nephrology Progress Note ---
Date of Service August 26, 2020 Assessment & Plan (1) End stage renal failure on dialysis: Mr. Mata has end-stage renal disease, on hemodialysis Saturday, Saturday, Saturday. Admitted with fall at home and rt femur fracture, had surgery on 08/23/20. . Currently BP, volume status, electrolyte acceptable. Had CP, 2 D echo with no changes,. EKG possible t inversion, no ST changes, mildly elevated Troponin, now trended down. Waiting on DC to Rehab. --HD today as regular MWF schedule. - continued Nephrocaps and renal diet --dose medications for GFR less than 10 --left arm nephrology precaution ( AVF) Will follow Admission and Anticipated Discharge Date Admission Date: August 22, 2020 Jesus Rivera was seen and examined in his room this morning. Seems comfortable, no cough or respiratory distress. Blood pressure, volume status acceptable. communications limited, only answered "OK" or yes or no. Review of Systems Review of Systems: Other Physical Exam Constitutional: WD/WN, vitals as above + ill appearing; no acute distress Respiratory: normal respiratory effort, lungs clear to auscultation Cardiovascular: RRR, no murmur, no edema Extremities: + vascular access device (Rt IJ TDC) and + AV fistula Musculoskeletal: Extremities: extremities normal to inspection and + limited ROM of extremities (RT LE painful movement) Results & Data ([facility]) Vital Signs (Past 12 Hours) Vital Signs Temp Pulse Pulse Resp BP Pulse Ox 08/26/20 11:28 37.0 C 88 19 102/67 97 08/26/20 06:49 37.0 C 87 17 141/63 H 100 08/26/20 03:20 37.2 C 87 17 125/64 94 PG Care Time/CCT Total # of Minutes Spent Total Time Spent with Patient: Total time spent is greater than 50% in coordination of care (as documented) at patient's floor/unit and/or counseling patient: Coding Level of Care Code 13253 Subseq Hosp Care Lvl 2 Diagnoses End stage renal failure on dialysis N18.6; Z99.2
[2020-08-26] MEDS: HYDROmorphone INJ 0.5 MG/0.5 ML SYR IV PRN ×2 (12:46→20:32)
--- NOTE | 2020-08-26 13:28 | Hospitalist Progress Note ---
Date of Service August 26, 2020 Assessment & Plan (1) Hip fracture: Miguel Mata is 75y/o M with a PMH of hypercholesterolemia, GERD, coronary artery disease, renal artery stenosis, past history of cerebral infarction, DM, hemiparesis, CHF, peripheral artery disease, history of syncope, end-stage renal disease on hemodialysis, second-degree Mobitz type I; presented following a fall sustained at his house. Hip fracture: - Hip pain in the setting of hip fracture secondary to mechanical fall sustained at home - Pain control with morphine, patient may be unable to indicate if he is having pain, recommend nursing discretion - Orthopedic consultation: Status post right trochanteric fixation - Patient has a questionable candidate for return of home given baseline mental status and complicated diseases - Case management consulted Acute renal failure requiring hemodialysis: - Creatinine on presentation was 8, improved this AM - Nephrology consulted: continue hemodialysis MWF - Trend BMP daily Chest discomfort: - atypical anginal symptoms, more consistent with aspiration (given patient is edentulous) vs gastric distension (due to decreased stooling with narcotics) - KUB demonstrated increased stool burden throughout colon - CXR no cardiomegaly, no acute processes - EKG from 08/24 demonstrated new inverted T-waves in V2-V6, no ST elevations or depressions - EKG from this a.m. demonstrated no maintained T wave inversions, questionable ST depressions in II, III, aVF; poor baseline EKG - Troponin peaked at 0.78 overnight with subsequent downtrend - Likely contributions from ischemia secondary to decreased volume status following dialysis - Given need for dialysis as above, patient seemingly likely a tenuous volume status given potential complications from dialysis generating increased demand ischemia - Echo demonstrating EF 40-45% - Will avoid beta-blockers given above Leukocytosis: - WBC trending up over last couple days - Pro-nicko approximately 7 - patient does not produce urine, and therefore has no urinary complaints - no evident skin or soft-tissue source of infection - Blood cultures x2 drawn - penile culture from 08/22 demonstrated Klebsiella, and Enterococcus - started Ancef 2gm q8h Type 2 diabetes: - Holding home meds - Glycemic consult placed Coronary artery disease: - Continue home atorvastatin 80 mg p.o. at bedtime - Continue clopidogrel 75 mg p.o. daily - Continue nitrates History of renal artery stenosis: - Stented and hypertension well-controlled on amlodipine - Continue amlodipine 2.5mg GERD: - Continue famotidine Anxiety/depression: - Continue citalopram Constipation: - Continue docusate - Continue MiraLAX (2) Chest discomfort: Admission and Anticipated Discharge Date Admission Date: August 22, 2020 Supervising Physician Co-Signing Physician Notes I personally examined the patient and verified all grande points of history and exam, discussed case, and agree with decision making with Dr Johnson. no meaningful HPI or ROS obtainable. BP low for a bit - fortunately appeared responsive followed some simple commands. after fluids BP increased vitals noted nad heent nc at mmm cardio reg no r/m/g lungs cta b/l no r/r/w good effort abd soft penis no lesions no erythema ext no c/c. no new focal neuro deficits hyperkalemia - med management, HD. f/u BMP tonight to ensure improving. fortunately not much worrisoem on ekg. CAD w demand ischemia - med management. fortunately while EKG shows a degree of ischemia, troponin only remains mildly elevated. tried to initiate beta amrit but appears to be too tenuous with volume status to tolerate given hypotension progressive leukocytosis - nonspecific exam and no clear s//s but very difficult hx. w rise in white count, low grade temps, high inflammatory markers - empiric abx and follow hip fx - post op. PT/OT. otherwise as above Subjective Patient was seen and evaluated this morning, received a critical lab report this AM for K of 6.7. Seen at bedside, patient was alert and interactive, no acute complaints. EKG gathered at that time demonstrated mildly peaked T waves, with no prolonged QRS. As patient was scheduled to receive dialysis today, patient was started on Calcium carbonate, and D50 with insulin for potassium correction and stabilization of cardiac membrane. Family was at bedside for discussions regarding long-term care options as patient would not be a great candidate for safe return home at this time given his current weakness. Family indicated that they are very understanding of the need for him to go through some therapy following his discharge from the hospital, and they are open to this but want him to ultimately return home. Feels like he would not respond well if he had to reside in a penitentiary, as he has previously said that he would rather just give up and stop trying if he had to live in a penitentiary long-term. Review of Systems Review of Systems: Unobtainable due to cognitive status (expressive aphasia) Physical Exam Constitutional: + disheveled, cooperative and comfortable Eyes: PERRL, conjunctivae normal, anicteric sclerae Respiratory: normal respiratory effort, lungs clear to auscultation Cardiovascular: RRR, no murmur, no edema Rate/Rhythm: regular rate and regular rhythm Heart Sounds: no gallop, no murmur and no cardiac rub Vessels: normal peripheral pulses Gastrointestinal (Abdomen): Inspection/Auscultation: abdomen normal to inspection and normal bowel sounds; abdomen not distended Percussion/Palpation: + abdomen tender (generalized) Psychiatric: Orientation: alert; + not oriented to place and + not oriented to time Apperance: + disheveled Results & Data Results & Data ([facility]) Vital Signs (Past 12 Hours) Vital Signs Temp Pulse Pulse Resp BP Pulse Ox 08/26/20 11:28 37.0 C 88 19 102/67 97 08/26/20 06:49 37.0 C 87 17 141/63 H 100 08/26/20 03:20 37.2 C 87 17 125/64 94 Laboratory Results 08/26/20 08/26/20 08/26/20 Range/Units 11:12 10:24 08:45 WBC 17.76 H RBC 2.64 L Hgb 8.6 L Hct 26.8 L MCV 101.5 H MCH 32.6 MCHC 32.1 RDW Std Deviation 63.5 H RDW Coeff of Shayy 17.3 H Plt Count 202 MPV 10.1 Immature Gran % (Auto) 0.3 Neut % (Auto) 81.7 Lymph % (Auto) 13.5 Taney % (Auto) 4.3 Eos % (Auto) 0.1 Baso % (Auto) 0.1 Neut # (Auto) 14.53 H Lymph # (Auto) 2.39 Taney # (Auto) 0.76 H Eos # (Auto) 0.01 Baso # (Auto) 0.01 Immature Gran # (Auto) 0.06 H Absolute Nucleated RBC 0.03 H Nucleated RBC % (auto) 0.2 Neutrophils % (Manual) Band Neutrophils % Lymphocytes % (Manual) Prolymphocyte % Reactive Lymphs % (Man) Monocytes % (Manual) Eosinophils % (Manual) Basophils % (Manual) Metamyelocytes % (Man) Myelocytes % (Man) Promyelocytes % (Man) Blast Cells % (Manual) Plasma Cell % (Manual) Other Cells % Nucleated RBC % Neutrophils # (Manual) Band Neutrophils # Total Absolute Neuts Lymphocytes # (Manual) Prolymphocyte # Reactive Lymphs # Total Abs Lymphocytes Monocytes # (Manual) Eosinophils # (Manual) Basophils # (Manual) Metamyelocytes # (Man) Myelocytes # (Manual) Promyelocytes # (Man) Blast Cells # (Man) Plasma Cell # (Manual) Other Cells # Nucleated RBCs # (Man) Hypersegmented Neuts Hyposegmented Neuts Hypogranular Neuts Large Granular Lymphs # Lrg Granular Lymphs Hairy Cells Smudge Cells Toxic Granulation Toxic Vacuolation Dohle Bodies Jovon Rods Platelet Estimate Hypogranular Platelets Clumped Platelets Giant Platelets Platelet Satelliting RBC Morphology Polychromasia 1+ Hypochromasia Poikilocytosis Basophilic Stippling Anisocytosis Microcytosis Macrocytosis Spherocytes Pappenheimer Bodies Sickle Cells Target Cells Tear Drop Cells Ovalocytes Stomatocytes Sanchez-Milo Bodies Echinocytes 1+ Acanthocytes (Spur) Rouleaux RBC Agglutinates Schistocytes RBC Morph Comment Sezary Cell Sodium (136-145) mmol/L Potassium (3.5-5.1) mmol/L Chloride (98-107) mmol/L Carbon Dioxide (21-32) mmol/L Anion Gap (3-11) BUN (7-18) mg/dl Creatinine (0.6-1.4) mg/dl Est Cr Clr Drug Dosing ml/min Est GFR ( Amer) Est GFR (Non-Af Amer) BUN/Creatinine Ratio (10-20) Glucose (70-99) mg/dl POC Glucose 184 H 260 H (70-99) mg/dl Calcium (8.5-10.1) mg/dl Procalcitonin (0-0.5) ng/ml 08/26/20 08/26/20 08/26/20 Range/Units 08:14 07:06 06:35 WBC Cancelled RBC Cancelled Hgb Cancelled Hct Cancelled MCV Cancelled MCH Cancelled MCHC Cancelled RDW Std Deviation Cancelled RDW Coeff of Shayy Cancelled Plt Count Cancelled MPV Cancelled Immature Gran % (Auto) Cancelled Neut % (Auto) Cancelled Lymph % (Auto) Cancelled Taney % (Auto) Cancelled Eos % (Auto) Cancelled Baso % (Auto) Cancelled Neut # (Auto) Cancelled Lymph # (Auto) Cancelled Taney # (Auto) Cancelled Eos # (Auto) Cancelled Baso # (Auto) Cancelled Immature Gran # (Auto) Cancelled Absolute Nucleated RBC Cancelled Nucleated RBC % (auto) Cancelled Neutrophils % (Manual) Cancelled Band Neutrophils % Cancelled Lymphocytes % (Manual) Cancelled Prolymphocyte % Cancelled Reactive Lymphs % (Man) Cancelled Monocytes % (Manual) Cancelled Eosinophils % (Manual) Cancelled Basophils % (Manual) Cancelled Metamyelocytes % (Man) Cancelled Myelocytes % (Man) Cancelled Promyelocytes % (Man) Cancelled Blast Cells % (Manual) Cancelled Plasma Cell % (Manual) Cancelled Other Cells % Cancelled Nucleated RBC % Cancelled Neutrophils # (Manual) Cancelled Band Neutrophils # Cancelled Total Absolute Neuts Cancelled Lymphocytes # (Manual) Cancelled Prolymphocyte # Cancelled Reactive Lymphs # Cancelled Total Abs Lymphocytes Cancelled Monocytes # (Manual) Cancelled Eosinophils # (Manual) Cancelled Basophils # (Manual) Cancelled Metamyelocytes # (Man) Cancelled Myelocytes # (Manual) Cancelled Promyelocytes # (Man) Cancelled Blast Cells # (Man) Cancelled Plasma Cell # (Manual) Cancelled Other Cells # Cancelled Nucleated RBCs # (Man) Cancelled Hypersegmented Neuts Cancelled Hyposegmented Neuts Cancelled Hypogranular Neuts Cancelled Large Granular Lymphs Cancelled # Lrg Granular Lymphs Cancelled Hairy Cells Cancelled Smudge Cells Cancelled Toxic Granulation Cancelled Toxic Vacuolation Cancelled Dohle Bodies Cancelled Jovon Rods Cancelled Platelet Estimate Cancelled Hypogranular Platelets Cancelled Clumped Platelets Cancelled Giant Platelets Cancelled Platelet Satelliting Cancelled RBC Morphology Cancelled Polychromasia Cancelled Hypochromasia Cancelled Poikilocytosis Cancelled Basophilic Stippling Cancelled Anisocytosis Cancelled Microcytosis Cancelled Macrocytosis Cancelled Spherocytes Cancelled Pappenheimer Bodies Cancelled Sickle Cells Cancelled Target Cells Cancelled Tear Drop Cells Cancelled Ovalocytes Cancelled Stomatocytes Cancelled Sanchez-Milo Bodies Cancelled Echinocytes Cancelled Acanthocytes (Spur) Cancelled Rouleaux Cancelled RBC Agglutinates Cancelled Schistocytes Cancelled RBC Morph Comment Cancelled Sezary Cell Cancelled Sodium 132 L (136-145) mmol/L Potassium 6.7 H* D (3.5-5.1) mmol/L Chloride 98 (98-107) mmol/L Carbon Dioxide 21 (21-32) mmol/L Anion Gap 13.0 H (3-11) BUN 90 H D (7-18) mg/dl Creatinine 6.62 H* D (0.6-1.4) mg/dl Est Cr Clr Drug Dosing 7.5 ml/min Est GFR ( Amer) 8.6 Est GFR (Non-Af Amer) 7.5 BUN/Creatinine Ratio 13.5 (10-20) Glucose 138 H (70-99) mg/dl POC Glucose 148 H (70-99) mg/dl Calcium 8.1 L (8.5-10.1) mg/dl Procalcitonin (0-0.5) ng/ml 08/26/20 08/26/20 08/25/20 Range/Units 06:35 06:27 21:22 WBC Cancelled RBC Cancelled Hgb Cancelled Hct Cancelled MCV Cancelled MCH Cancelled MCHC Cancelled RDW Std Deviation Cancelled RDW Coeff of Shayy Cancelled Plt Count Cancelled MPV Cancelled Immature Gran % (Auto) Cancelled Neut % (Auto) Cancelled Lymph % (Auto) Cancelled Taney % (Auto) Cancelled Eos % (Auto) Cancelled Baso % (Auto) Cancelled Neut # (Auto) Cancelled Lymph # (Auto) Cancelled Taney # (Auto) Cancelled Eos # (Auto) Cancelled Baso # (Auto) Cancelled Immature Gran # (Auto) Cancelled Absolute Nucleated RBC Cancelled Nucleated RBC % (auto) Cancelled Neutrophils % (Manual) Cancelled Band Neutrophils % Cancelled Lymphocytes % (Manual) Cancelled Prolymphocyte % Cancelled Reactive Lymphs % (Man) Cancelled Monocytes % (Manual) Cancelled Eosinophils % (Manual) Cancelled Basophils % (Manual) Cancelled Metamyelocytes % (Man) Cancelled Myelocytes % (Man) Cancelled Promyelocytes % (Man) Cancelled Blast Cells % (Manual) Cancelled Plasma Cell % (Manual) Cancelled Other Cells % Cancelled Nucleated RBC % Cancelled Neutrophils # (Manual) Cancelled Band Neutrophils # Cancelled Total Absolute Neuts Cancelled Lymphocytes # (Manual) Cancelled Prolymphocyte # Cancelled Reactive Lymphs # Cancelled Total Abs Lymphocytes Cancelled Monocytes # (Manual) Cancelled Eosinophils # (Manual) Cancelled Basophils # (Manual) Cancelled Metamyelocytes # (Man) Cancelled Myelocytes # (Manual) Cancelled Promyelocytes # (Man) Cancelled Blast Cells # (Man) Cancelled Plasma Cell # (Manual) Cancelled Other Cells # Cancelled Nucleated RBCs # (Man) Cancelled Hypersegmented Neuts Cancelled Hyposegmented Neuts Cancelled Hypogranular Neuts Cancelled Large Granular Lymphs Cancelled # Lrg Granular Lymphs Cancelled Hairy Cells Cancelled Smudge Cells Cancelled Toxic Granulation Cancelled Toxic Vacuolation Cancelled Dohle Bodies Cancelled Jovon Rods Cancelled Platelet Estimate Cancelled Hypogranular Platelets Cancelled Clumped Platelets Cancelled Giant Platelets Cancelled Platelet Satelliting Cancelled RBC Morphology Cancelled Polychromasia Cancelled Hypochromasia Cancelled Poikilocytosis Cancelled Basophilic Stippling Cancelled Anisocytosis Cancelled Microcytosis Cancelled Macrocytosis Cancelled Spherocytes Cancelled Pappenheimer Bodies Cancelled Sickle Cells Cancelled Target Cells Cancelled Tear Drop Cells Cancelled Ovalocytes Cancelled Stomatocytes Cancelled Sanchez-Milo Bodies Cancelled Echinocytes Cancelled Acanthocytes (Spur) Cancelled Rouleaux Cancelled RBC Agglutinates Cancelled Schistocytes Cancelled RBC Morph Comment Cancelled Sezary Cell Cancelled Sodium (136-145) mmol/L Potassium (3.5-5.1) mmol/L Chloride (98-107) mmol/L Carbon Dioxide (21-32) mmol/L Anion Gap (3-11) BUN (7-18) mg/dl Creatinine (0.6-1.4) mg/dl Est Cr Clr Drug Dosing ml/min Est GFR ( Amer) Est GFR (Non-Af Amer) BUN/Creatinine Ratio (10-20) Glucose (70-99) mg/dl POC Glucose 167 H (70-99) mg/dl Calcium (8.5-10.1) mg/dl Procalcitonin 7.09 H (0-0.5) ng/ml 12/10/20 Range/Units 15:58 WBC RBC Hgb Hct MCV MCH MCHC RDW Std Deviation RDW Coeff of Shayy Plt Count MPV Immature Gran % (Auto) Neut % (Auto) Lymph % (Auto) Taney % (Auto) Eos % (Auto) Baso % (Auto) Neut # (Auto) Lymph # (Auto) Taney # (Auto) Eos # (Auto) Baso # (Auto) Immature Gran # (Auto) Absolute Nucleated RBC Nucleated RBC % (auto) Neutrophils % (Manual) Band Neutrophils % Lymphocytes % (Manual) Prolymphocyte % Reactive Lymphs % (Man) Monocytes % (Manual) Eosinophils % (Manual) Basophils % (Manual) Metamyelocytes % (Man) Myelocytes % (Man) Promyelocytes % (Man) Blast Cells % (Manual) Plasma Cell % (Manual) Other Cells % Nucleated RBC % Neutrophils # (Manual) Band Neutrophils # Total Absolute Neuts Lymphocytes # (Manual) Prolymphocyte # Reactive Lymphs # Total Abs Lymphocytes Monocytes # (Manual) Eosinophils # (Manual) Basophils # (Manual) Metamyelocytes # (Man) Myelocytes # (Manual) Promyelocytes # (Man) Blast Cells # (Man) Plasma Cell # (Manual) Other Cells # Nucleated RBCs # (Man) Hypersegmented Neuts Hyposegmented Neuts Hypogranular Neuts Large Granular Lymphs # Lrg Granular Lymphs Hairy Cells Smudge Cells Toxic Granulation Toxic Vacuolation Dohle Bodies Jovon Rods Platelet Estimate Hypogranular Platelets Clumped Platelets Giant Platelets Platelet Satelliting RBC Morphology Polychromasia Hypochromasia Poikilocytosis Basophilic Stippling Anisocytosis Microcytosis Macrocytosis Spherocytes Pappenheimer Bodies Sickle Cells Target Cells Tear Drop Cells Ovalocytes Stomatocytes Sanchez-Milo Bodies Echinocytes Acanthocytes (Spur) Rouleaux RBC Agglutinates Schistocytes RBC Morph Comment Sezary Cell Sodium (136-145) mmol/L Potassium (3.5-5.1) mmol/L Chloride (98-107) mmol/L Carbon Dioxide (21-32) mmol/L Anion Gap (3-11) BUN (7-18) mg/dl Creatinine (0.6-1.4) mg/dl Est Cr Clr Drug Dosing ml/min Est GFR ( Amer) Est GFR (Non-Af Amer) BUN/Creatinine Ratio (10-20) Glucose (70-99) mg/dl POC Glucose 126 H (70-99) mg/dl Calcium (8.5-10.1) mg/dl Procalcitonin (0-0.5) ng/ml Medications Administered Current Inpatient Medications Acetaminophen (Acetaminophen 325 Mg Tab) 650 mg PO Q4H PRN PRN Reason: Pain or Fever Stop: 09/21/20 09:53 Last Admin: 08/24/20 07:52 Dose: 650 mg Documented by: Amlodipine Besylate (Amlodipine Besylate 5 Mg Tab) 2.5 mg PO QPM SEE Stop: 09/21/20 20:59 Last Admin: 08/25/20 20:52 Dose: Not Given Documented by: Atorvastatin Calcium (Atorvastatin 40 Mg Tab) 80 mg PO HS [facility] Stop: 09/21/20 20:59 Last Admin: 08/25/20 22:02 Dose: 80 mg Documented by: Calcitriol (Calcitriol 0.25 Mcg Capsule) 0.25 mcg PO [email or web address] [facility] Stop: 09/21/20 10:59 Last Admin: 08/26/20 09:10 Dose: 0.25 mcg Documented by: Citalopram Hydrobromide (Citalopram 20 Mg Tab) 10 mg PO HS [facility] Stop: 09/21/20 20:59 Last Admin: 08/25/20 22:02 Dose: 10 mg Documented by: Citalopram Hydrobromide (Citalopram 20 Mg Tab) 20 mg PO QAM [facility] Stop: 09/21/20 10:59 Last Admin: 08/26/20 09:11 Dose: 20 mg Documented by: Clopidogrel Bisulfate (Clopidogrel Bisulfate 75 Mg Tab) 75 mg PO DAILY SEE Stop: 09/21/20 10:59 Last Admin: 08/26/20 09:10 Dose: 75 mg Documented by: Dextrose (Dextrose 50% 50 Ml Syringe) 25 - 50 ml IV UD PRN; Protocol PRN Reason: Hypoglycemia Protocol Stop: 09/21/20 10:44 Docusate Sodium (Docusate Sodium 100 Mg Cap) 100 mg PO DAILY SEE Stop: 09/21/20 09:53 Last Admin: 08/26/20 09:11 Dose: 100 mg Documented by: Famotidine (Famotidine 40 Mg Tablet) 40 mg PO BID SEE Stop: 09/21/20 10:59 Last Admin: 08/26/20 09:11 Dose: 40 mg Documented by: Glucagon (Glucagon For Inj 1 Mg Vial) 1 mg IM UD PRN; Protocol PRN Reason: Hypoglycemia Protocol Stop: 09/21/20 10:44 Glucose (Glucose 40% Gel 15 Gm Tube) 15 - 30 gm PO UD PRN; Protocol PRN Reason: Hypoglycemia Protocol Stop: 09/21/20 10:44 Glucose (Glucose 10 Tabs/Tube) 4 - 8 tabs PO UD PRN; Protocol PRN Reason: Hypoglycemia Protocol Stop: 09/21/20 10:44 Hydrocortisone (Hydrocortisone Hc 2.5% Crm 30gm Tube) 1 appln EXT DAILY PRN PRN Reason: itching Stop: 09/21/20 09:53 Hydromorphone HCl (Hydromorphone Inj 0.5 Mg/0.5 Ml Syr) 0.5 mg IV Q4 PRN PRN Reason: Pain Stop: 09/05/20 18:11 Last Admin: 08/26/20 12:46 Dose: 0.5 mg Documented by: Cefazolin Sodium (Ancef 2000mg) 2,000 mg in 15 mls @ 3.75 mls/min IV Q8H [facility] Stop: 08/28/20 11:59 Last Admin: 08/26/20 12:45 Dose: 3.75 mls/min Documented by: Insulin Aspart (Insulin Aspart 100 Units/Ml 3 Ml Pen) 0 units SC ACHS [facility] Stop: 09/22/20 20:59 Last Admin: 08/26/20 12:44 Dose: 2 units Documented by: Insulin Glargine (Insulin Glargine Solostar 100 Units/Ml 3 Ml Pen) 5 units SC QAM [facility] Stop: 09/24/20 08:59 Last Admin: 08/26/20 09:10 Dose: Not Given Documented by: Isosorbide Mononitrate (Isosorbide Taney Extended Rel 60 Mg Tabcr) 60 mg PO DAILY [facility] Stop: 09/21/20 10:59 Last Admin: 08/26/20 09:10 Dose: 60 mg Documented by: Levetiracetam (Levetiracetam 500 Mg Tab) 500 mg PO [email or web address]@0900 [facility] Stop: 09/22/20 08:59 Last Admin: 08/25/20 08:14 Dose: 500 mg Documented by: Miscellaneous (Carbohydrates For Hypoglycemia ) 15 - 30 gm PO UD PRN PRN Reason: Hypoglycemia Treatment Stop: 09/21/20 10:44 Miscellaneous Information (Pharmacy Glycemic Mgmt Consult) 1 ea N/A UD PRN PRN Reason: Consult Stop: 09/21/20 10:44 Naloxone HCl (Naloxone Hcl 0.4 Mg/1 Ml Vial/Carp) 0.1 mg IV UD PRN PRN Reason: Opioid Overdose Stop: 09/22/20 19:52 Nitroglycerin (Nitroglycerin Sl 0.4 Mg/Tab Tab) 0.4 mg SL UD PRN PRN Reason: Chest Pain Stop: 09/21/20 09:53 Ondansetron HCl (Ondansetron Inj 2 Mg/Ml 2 Ml Vial) 4 mg IV Q6H PRN PRN Reason: Nausea Stop: 09/21/20 09:53 Polyethylene Glycol (Polyethylene (Miralax) 17 Gm Pack) 17 gm PO DAILY [facility] Stop: 09/21/20 09:53 Last Admin: 08/26/20 10:11 Dose: 17 gm Documented by: Sennosides (Senna 8.6 Mg Tab) 8.6 mg PO QPM PRN PRN Reason: Constipation Stop: 09/21/20 09:53 Vitamin B Complex/Folic Acid (Nephrocaps) 1 cap PO QAM [facility] Stop: 09/21/20 10:59 Last Admin: 08/26/20 09:11 Dose: 1 cap Documented by: Resident Activity Tracking Resident Involvement: Resident Care Provided Care Provided: Adult Hospital Medicine
--- NOTE | 2020-08-26 14:55 | Electrocardiogram Report ---
Test Reason : Blood Pressure : / mmHG Vent. Rate : 087 BPM Atrial Rate : 087 BPM P-R Int : 162 ms QRS Dur : 108 ms QT Int : 438 ms P-R-T Axes : 035 -24 163 degrees QTc Int : 527 ms Normal sinus rhythm Prolonged QT Abnormal ECG When compared with ECG of 25-AUG-2020 09:02, MS interval has decreased QT has lengthened Confirmed by Kareem Gallardo ([id number]) on 08/26/2020 2:54:42 PM Referred By: REFERRED SELF Confirmed By:Kareem Gallardo
--- NOTE | 2020-08-26 15:02 | Electrocardiogram Report ---
Test Reason : Blood Pressure : / mmHG Vent. Rate : 081 BPM Atrial Rate : 081 BPM P-R Int : 222 ms QRS Dur : 096 ms QT Int : 382 ms P-R-T Axes : 084 -25 142 degrees QTc Int : 443 ms Sinus rhythm with 1st degree A-V block Inferior-posterior infarct , age undetermined Abnormal ECG When compared with ECG of 26-AUG-2020 08:05, (unconfirmed) [place] interval has increased Inferior-posterior infarct is now Present T wave inversion no longer evident in Inferior leads QT has shortened Confirmed by Kareem Gallardo ([id number]) on 08/26/2020 3:01:47 PM Referred By: REFERRED SELF Confirmed By:Kareem Gallardo
--- NOTE | 2020-08-26 18:10 | Billing Data ---
Date of Service August 26, 2020 Coding Level of Care Code 44286 Subseq Hosp Care Lvl 3
[2020-08-26] MEDS: amLODIPine BESYLATE 5 MG TAB PO SCH (20:28)
[2020-08-26] MEDS: ATORVASTATIN 40 MG TAB PO SCH (20:29)
[2020-08-26 22:05] LABS: BUN Creatinine Ratio 9.6 (10-20); Calcium 8.2 mg/dl (8.5-10.1); Creatinine Clr Calc Pharmacy 18.7 ml/min; Est GFR (African American) 25.5; Potassium 4.1 mmol/L (3.5-5.1)
--- NOTE | 2020-08-26 23:19 | Cardiology Progress Note ---
Date of Service August 26, 2020 Assessment & Plan (1) CAD (coronary artery disease): 2. Post RT hip fracure and trochanteric nail repair 08/23 3. ESRD on HD 4. PAD post remote aorto-bifem bypass 5. Cerebrovascular disease post CVA with residual RT side deficits 6. ICM - EF 45%, inferolateral hypokinesis 7. SVT 8. Type 2 DM 9. Anemia Patient comfortable this afternoon. No clear chest pain. Mild troponin elevation and dynamic ECG changes post-op. Trop peaked LV function largely unchanged from prior Hemodynamically stable Periods of asymmetric SVT to 100s on telemetry, suspect AT Agree that troponin/?CP/ECG changes unlikely to represent true ACS Stable currently from a cardiac standpoint and no real revascularization options. Continue medical management. No need for anticoagulation or DAPT. If persistent tachycardia, recurrent chest symptoms consider addition of AV [place] l agent. Admission and Anticipated Discharge Date Admission Date: August 22, 2020 Subjective Appears comfortable. Answer yes/no questions. Denies chest pain. Hip pain reasonably controlled. Telemetry reviewed - sinus rhythm with periods of SVT to low 100s Review of Systems Review of Systems: Unobtainable due to cognitive status Physical Exam 2 Physical Exam: General: comfortable Chronically ill, frail HEENT: Sclerae anicteric Lungs: Clear to auscultation anteriorly. Right PermCath in place Cardiac: Regular rate and rhythm, 2 out of 6 systolic ejection murmur Abdomen: Soft Extremities: No edema. 2+ radial pulses Skin: No rashes or lesions. Results & Data ([facility]) Vital Signs (Past 12 Hours) Vital Signs Temp Pulse Pulse Pulse Pulse Resp BP 08/26/20 19:49 98.8 F 96 H 20 08/26/20 19:16 98.8 F 93 H 93 H 131/57 L 08/26/20 19:00 96 H 106/57 L 08/26/20 18:40 94 H 91/61 L 08/26/20 18:20 94 H 103/53 L 08/26/20 18:00 97 H 105/55 L 08/26/20 17:40 92 H 89/49 L 08/26/20 17:20 90 105/50 L 08/26/20 17:00 90 85/45 L 08/26/20 16:55 91 H 08/26/20 16:40 90 81/45 L 08/26/20 16:20 94 H 83/44 L 08/26/20 16:00 97 H 102/50 L 08/26/20 15:44 98.8 F 92 H 92 H 133/68 08/26/20 15:09 99.0 F 91 H 18 08/26/20 11:28 98.6 F 88 19 BP Pulse Ox 08/26/20 19:49 148/78 H 100 08/26/20 19:16 131/75 08/26/20 19:00 08/26/20 18:40 08/26/20 18:20 08/26/20 18:00 08/26/20 17:40 08/26/20 17:20 08/26/20 17:00 08/26/20 16:55 08/26/20 16:40 08/26/20 16:20 08/26/20 16:00 08/26/20 15:44 08/26/20 15:09 117/65 97 08/26/20 11:28 102/67 97 PG Care Time/CCT Total # of Minutes Spent Total Time Spent with Patient: Total time spent is greater than 50% in coordination of care (as documented) at patient's floor/unit and/or counseling patient: Coding Level of Care Code 53064 Subseq Hosp Care Lvl 3 Diagnoses CAD (coronary artery disease) I25.10 Coronary Disease-Associated Artery/Lesion type: [place] artery [place] vs. transplanted heart: [place] heart Associated angina: without angina (1) CAD (coronary artery disease) Coronary Disease-Associated Artery/Lesion type: [place] artery [place] vs. transplanted heart: [place] heart Associated angina: without angina Qualified Code(s): I25.10 - Atherosclerotic heart disease of [place] coronary artery without angina pectoris
[2020-08-27] MEDS: HYDROmorphone INJ 0.5 MG/0.5 ML SYR IV PRN (05:56)
[2020-08-27 06:33] LABS: Basophils # (auto) 0.01 K/uL (0-0.2); Basophils % (auto) 0.1 %; Eosinophils # (auto) 0.05 K/uL (0-0.5); Eosinophils % (auto) 0.4 %; Hematocrit (blood only) 25.6 % (42-52); Immature Granulocytes # (auto) 0.03 K/uL (0.00-0.02); Immature Granulocytes % (auto) 0.3 %; Lymphocytes # (auto) 1.18 K/uL (1.2-3.4); Lymphocytes % (auto) 10.5 %; Mean Corpuscular Hemoglobin 31.9 pg (25-34); Mean Corpuscular Hgb Conc 31.3 g/dL (32-36); Mean Platelet Volume 10.1 fL (7.4-10.4); Monocytes # (auto) 1.43 K/uL (0.11-0.59); Monocytes % (auto) 12.7 %; Neutrophils # (auto) 8.54 K/uL (1.4-6.5); Platelet Count 200 K/uL (130-400); RDW Coefficient of Variation 17.5 % (11.5-14.5); RDW Standard Deviation 64.9 fL (36.4-46.3); Red Blood Count 2.51 M/uL (4.7-6.1); White Blood Count 11.24 K/uL (4.8-10.8)
[2020-08-27 06:57] LABS: BUN Creatinine Ratio 10.2 (10-20); Calcium 8.4 mg/dl (8.5-10.1); Est GFR (African American) 17.9; Est GFR (Non-African American) 15.5; Potassium 4.3 mmol/L (3.5-5.1)
[2020-08-27] MEDS: DOCUSATE SODIUM 100 MG CAP PO SCH (07:35)
[2020-08-27] MEDS: ISOSORBIDE MONO EXTENDED REL 60 MG TABCR PO SCH (07:35)
[2020-08-27] MEDS: FAMOTIDINE 40 MG TABLET PO SCH ×2 (07:35→21:11)
[2020-08-27] MEDS: NEPHROCAPS PO SCH (07:35)
[2020-08-27] MEDS: levETIRAcetam 500 MG TAB PO SCH (07:36)
[2020-08-27] MEDS: CITALOPRAM 20 MG TAB PO SCH ×2 (07:36→21:11)
[2020-08-27] MEDS: CLOPIDOGREL BISULFATE 75 MG TAB PO SCH (07:36)
[2020-08-27] MEDS: POLYETHYLENE (MIRALAX) 17 GM PACK PO SCH (07:40)
[2020-08-27] MEDS: INSULIN ASPART 100 UNITS/ML 3 ML PEN SC SCH ×4 (07:41→21:45)
--- NOTE | 2020-08-27 07:47 | Hospitalist Progress Note ---
Date of Service August 27, 2020 Assessment & Plan (1) Hip fracture: Miguel Mata is 75y/o M with a PMH of hypercholesterolemia, GERD, coronary artery disease, renal artery stenosis, past history of cerebral infarction, DM, hemiparesis, CHF, peripheral artery disease, history of syncope, end-stage renal disease on hemodialysis, second-degree Mobitz type I; presented following a fall sustained at his house. Hip fracture POD 4 s/p R trochanteric fixation - Patient has a questionable candidate for return of home given baseline mental status and complicated diseases - Case management consulted - pain control with tylenol 650 mg PO Q4H PRN, Dilaudid 0.5mg IV Q4 PRN Acute renal failure requiring hemodialysis: - Creatinine on presentation was 8, improving with hemodialysis - Nephrology consulted: continue hemodialysis MWF - Trend BMP daily Chest discomfort: resolved - atypical anginal symptoms, more consistent with aspiration (given patient is edentulous) vs gastric distension (due to decreased stooling with narcotics) - KUB demonstrated increased stool burden throughout colon - CXR no cardiomegaly, no acute processes - EKG from 08/24 demonstrated new inverted T-waves in V2-V6, no ST elevations or depressions - EKG from this a.m. demonstrated no maintained T wave inversions, questionable ST depressions in II, III, aVF; poor baseline EKG - Troponin peaked at 0.78 overnight with subsequent downtrend - Likely contributions from ischemia secondary to decreased volume status following dialysis - Given need for dialysis as above, patient seemingly likely a tenuous volume status given potential complications from dialysis generating increased demand ischemia - Echo demonstrating EF 40-45% - Will avoid beta-blockers given above Leukocytosis s/p surgery: improving - started Ancef 2gm q8h after worsening leukocytosis, showing improvement in labs. will flip to keflex on discharge to finish 7 day course. - WBC downtrended from 17 to 11 - Pro-nicko from 7 to 5 - no urinary complaints - no evident skin or soft-tissue source of infection - Blood cultures x2 drawn, negative at 24 hours - penile culture from 08/22 demonstrated Klebsiella, and Enterococcus - ddx: post op fever due to atelectasis? developing PNA? Type 2 diabetes: - Holding home meds - Glycemic consult placed Coronary artery disease: - Continue home atorvastatin 80 mg p.o. at bedtime - Continue clopidogrel 75 mg p.o. daily - Continue nitrates History of renal artery stenosis: - Stented and hypertension well-controlled on amlodipine - Continue amlodipine 2.5mg GERD: - Continue famotidine Anxiety/depression: - Continue citalopram Constipation: - Continue docusate - Continue MiraLAX DVT ppx: SCD to thigh FEN/GI: PO fluid intake, electrolytes balanced by HD Code Status: full code Dispo: awaiting prior auth for [facility]. downgraded to med/surg. (2) Chest discomfort: Admission and Anticipated Discharge Date Admission Date: August 22, 2020 Supervising Physician Co-Signing Physician Notes I personally examined the patient and verified all grande points of history and exam, discussed case, and agree with decision making with Dr Kothari. more interactive, still can't really glean HPI/ROS - but seems to be feeling better. tries to vocalize some, and nods conversationally at a totally appropriate kae. vitals noted nad heent nc at mmm breathing unlabored no accessory muscles good effort skin no rashes no pallor or icterus hyperkalemia - med management, HD. improved CAD w demand ischemia - med management. fortunately while EKG shows a degree of ischemia, troponin only remains mildly elevated. tried to initiate beta amrit but appears to be too tenuous with volume status to tolerate given hypotension. overall stable now progressive leukocytosis - nonspecific exam and no clear s//s but very difficult hx. w rise in white count, low grade temps, high inflammatory markers - empiric abx initiated on 08/26 - clinical status and WBC both have improved. source not entirely clear but urinary most probable. hip fx - post op. PT/OT. rehab once approved. DVT proph - SCDs otherwise as above Subjective minimally expressive. denies pain. Review of Systems Review of Systems: Other (unobtainable due to aphasia) Physical Exam Physical Exam: Constitutional: thin, having difficulty speaking Eyes: EOMI, pupils equal and reactive bilaterally, no scleral icterus Cardiac: Afib, regular rate, 3/6 systolic murmur at L 2nd intercostal space Pulm: CTA BL, no work of breathing, no focal abnormal lung sounds Extremities: 2+ peripheral pulses, no edema Neuro: aphasic, CN 7 intact, no facial droop, able to squeeze hand on L, unable to wiggle toes bilaterally, Results & Data Results & Data ([facility]) Vital Signs (Past 12 Hours) Vital Signs Temp Pulse Pulse Resp BP Pulse Ox 08/27/20 07:04 37.6 C H 90 18 110/69 96 08/27/20 04:31 37.4 C 86 16 126/76 98 08/26/20 23:13 37.6 C H 88 16 109/66 99 08/26/20 19:49 37.1 C 96 H 20 148/78 H 100 Laboratory Results WBC 11.24 K/uL (4.8-10.8) H 08/27/20 05:43 RBC 2.51 M/uL (4.7-6.1) L 08/27/20 05:43 Hgb 8.0 g/dL (14.0-18.0) L 08/27/20 05:43 Hct 25.6 % (42-52) L 08/27/20 05:43 MCV 102.0 fL (80-100) H 08/27/20 05:43 MCH 31.9 pg (25-34) 08/27/20 05:43 MCHC 31.3 g/dL (32-36) L 08/27/20 05:43 RDW Std Deviation 64.9 fL (36.4-46.3) H 08/27/20 05:43 RDW Coeff of Shayy 17.5 % (11.5-14.5) H 08/27/20 05:43 Plt Count 200 K/uL (130-400) 08/27/20 05:43 MPV 10.1 fL (7.4-10.4) 08/27/20 05:43 Immature Gran % (Auto) 0.3 % 08/27/20 05:43 Neut % (Auto) 76.0 % 08/27/20 05:43 Lymph % (Auto) 10.5 % 08/27/20 05:43 [place] % (Auto) 12.7 % 08/27/20 05:43 Eos % (Auto) 0.4 % 08/27/20 05:43 Baso % (Auto) 0.1 % 08/27/20 05:43 Neut # (Auto) 8.54 K/uL (1.4-6.5) H 08/27/20 05:43 Lymph # (Auto) 1.18 K/uL (1.2-3.4) L 08/27/20 05:43 [place] # (Auto) 1.43 K/uL (0.11-0.59) H 08/27/20 05:43 Eos # (Auto) 0.05 K/uL (0-0.5) 08/27/20 05:43 Baso # (Auto) 0.01 K/uL (0-0.2) 08/27/20 05:43 Immature Gran # (Auto) 0.03 K/uL (0.00-0.02) H 08/27/20 05:43 Absolute Nucleated RBC 0.03 K/uL (0-0) H 08/26/20 08:45 Nucleated RBC % (auto) 0.2 % 08/26/20 08:45 Neutrophils % (Manual) Cancelled 08/26/20 08:14 Band Neutrophils % Cancelled 08/26/20 08:14 Lymphocytes % (Manual) Cancelled 08/26/20 08:14 Prolymphocyte % Cancelled 08/26/20 08:14 Reactive Lymphs % (Man) Cancelled 08/26/20 08:14 Monocytes % (Manual) Cancelled 08/26/20 08:14 Eosinophils % (Manual) Cancelled 08/26/20 08:14 Basophils % (Manual) Cancelled 08/26/20 08:14 Metamyelocytes % (Man) Cancelled 08/26/20 08:14 Myelocytes % (Man) Cancelled 08/26/20 08:14 Promyelocytes % (Man) Cancelled 08/26/20 08:14 Blast Cells % (Manual) Cancelled 08/26/20 08:14 Plasma Cell % (Manual) Cancelled 08/26/20 08:14 Other Cells % Cancelled 08/26/20 08:14 Nucleated RBC % Cancelled 08/26/20 08:14 Neutrophils # (Manual) Cancelled 08/26/20 08:14 Band Neutrophils # Cancelled 08/26/20 08:14 Total Absolute Neuts Cancelled 08/26/20 08:14 Lymphocytes # (Manual) Cancelled 08/26/20 08:14 Prolymphocyte # Cancelled 08/26/20 08:14 Reactive Lymphs # Cancelled 08/26/20 08:14 Total Abs Lymphocytes Cancelled 08/26/20 08:14 Monocytes # (Manual) Cancelled 08/26/20 08:14 Eosinophils # (Manual) Cancelled 08/26/20 08:14 Basophils # (Manual) Cancelled 08/26/20 08:14 Metamyelocytes # (Man) Cancelled 08/26/20 08:14 Myelocytes # (Manual) Cancelled 08/26/20 08:14 Promyelocytes # (Man) Cancelled 08/26/20 08:14 Blast Cells # (Man) Cancelled 08/26/20 08:14 Plasma Cell # (Manual) Cancelled 08/26/20 08:14 Other Cells # Cancelled 08/26/20 08:14 Nucleated RBCs # (Man) Cancelled 08/26/20 08:14 Hypersegmented Neuts Cancelled 08/26/20 08:14 Hyposegmented Neuts Cancelled 08/26/20 08:14 Hypogranular Neuts Cancelled 08/26/20 08:14 Large Granular Lymphs Cancelled 08/26/20 08:14 # Lrg Granular Lymphs Cancelled 08/26/20 08:14 Hairy Cells Cancelled 08/26/20 08:14 Smudge Cells Cancelled 08/26/20 08:14 Toxic Granulation Cancelled 08/26/20 08:14 Toxic Vacuolation Cancelled 08/26/20 08:14 Dohle Bodies Cancelled 08/26/20 08:14 Jovon Rods Cancelled 08/26/20 08:14 Platelet Estimate Cancelled 08/26/20 08:14 Hypogranular Platelets Cancelled 08/26/20 08:14 Clumped Platelets Cancelled 08/26/20 08:14 Giant Platelets Cancelled 08/26/20 08:14 Platelet Satelliting Cancelled 08/26/20 08:14 RBC Morphology Cancelled 08/26/20 08:14 Polychromasia 1+ 08/26/20 08:45 Hypochromasia Cancelled 08/26/20 08:14 Poikilocytosis Cancelled 08/26/20 08:14 Basophilic Stippling Cancelled 08/26/20 08:14 Anisocytosis Cancelled 08/26/20 08:14 Microcytosis Cancelled 08/26/20 08:14 Macrocytosis Cancelled 08/26/20 08:14 Spherocytes Cancelled 08/26/20 08:14 Pappenheimer Bodies Cancelled 08/26/20 08:14 Sickle Cells Cancelled 08/26/20 08:14 Target Cells Cancelled 08/26/20 08:14 Tear Drop Cells Cancelled 08/26/20 08:14 Ovalocytes Cancelled 08/26/20 08:14 Stomatocytes Cancelled 08/26/20 08:14 [place] Bodies Cancelled 08/26/20 08:14 Echinocytes 1+ 08/26/20 08:45 Acanthocytes (Spur) Cancelled 08/26/20 08:14 Rouleaux Cancelled 08/26/20 08:14 RBC Agglutinates Cancelled 08/26/20 08:14 Schistocytes Cancelled 08/26/20 08:14 RBC Morph Comment Cancelled 08/26/20 08:14 [place] Cell Cancelled 08/26/20 08:14 PT 11.0 Seconds (9.0-12.0) 08/22/20 03:00 INR 1.0 (0.9-1.1) 08/22/20 03:00 APTT 24.5 Seconds (21.0-31.0) 08/22/20 03:00 PTT Ratio 0.9 08/22/20 03:00 Sodium 139 mmol/L (136-145) 08/27/20 05:43 Potassium 4.3 mmol/L (3.5-5.1) 08/27/20 05:43 Chloride 102 mmol/L (98-107) 08/27/20 05:43 Carbon Dioxide 30 mmol/L (21-32) 08/27/20 05:43 Anion Gap 7.0 (3-11) 08/27/20 05:43 BUN 37 mg/dl (7-18) H 08/27/20 05:43 Creatinine 3.62 mg/dl (0.6-1.4) H D 08/27/20 05:43 Est Cr Clr Drug Dosing 14.0 ml/min 08/27/20 05:43 Est GFR ( Amer) 17.9 08/27/20 05:43 Est GFR (Non-Af Amer) 15.5 08/27/20 05:43 BUN/Creatinine Ratio 10.2 (10-20) 08/27/20 05:43 Glucose 112 mg/dl (70-99) H 08/27/20 05:43 POC Glucose 131 mg/dl (70-99) H 08/27/20 11:25 Calcium 8.4 mg/dl (8.5-10.1) L 08/27/20 05:43 Troponin I 0.599 ng/ml (0-0.045) H* 08/25/20 11:12 Procalcitonin 5.27 ng/ml (0-0.5) H 08/27/20 05:43 Urine Color Yellow 08/22/20 05:19 Urine Appearance Clear (Clear) 08/22/20 05:19 Urine pH 7.5 (4.5-7.5) 08/22/20 05:19 Ur Specific Bypro 1.016 (1.000-1.030) 08/22/20 05:19 Urine Protein 3+ (Negative) H 08/22/20 05:19 Urine Glucose (UA) Trace (Negative) H 08/22/20 05:19 Urine Ketones Trace (Negative) H 08/22/20 05:19 Urine Blood 2+ (Negative) H 08/22/20 05:19 Urine Nitrite Negative (Negative) 08/22/20 05:19 Urine Bilirubin Negative (Negative) 08/22/20 05:19 Urine Urobilinogen Negative (Negative) 08/22/20 05:19 Ur Leukocyte Esterase Negative (Negative) 08/22/20 05:19 Urine WBC (Auto) 5-10 /hpf (0-5) H 08/22/20 05:19 Urine RBC (Auto) >30 /hpf (0-4) H 08/22/20 05:19 U Hyaline Cast (Auto) 1-5 /lpf (0-5) 08/22/20 05:19 U Epithel Cells (Auto) >30 /lpf (0-5) H 08/22/20 05:19 Urine Bacteria (Auto) Negative (Negative) 08/22/20 05:19 Ur Renal Epithelial Cell Not Reportable 08/22/20 05:19 SARS-CoV-2 Ag (Rapid) Negative (Negative) 08/22/20 Unknown Blood Type A Positive 08/22/20 05:19 Antibody Screen NEGATIVE 08/22/20 05:19 Resident Activity Tracking Resident Involvement: Resident Care Provided Care Provided: Adult [facility] Medicine
[2020-08-27] MEDS: INSULIN GLARGINE SOLOSTAR 100 UNITS/ML 3 ML PEN SC SCH (09:50)
--- NOTE | 2020-08-27 12:43 | Nephrology Progress Note ---
Date of Service August 27, 2020 Assessment & Plan (1) End stage renal failure on dialysis: -- On HD MWF -- BP acceptable -- Volume status controlled -- Electrolytes normal -- No role for HD today -- Continue to closely monitor -- Nephrocaps and renal diet --Medications are appropriately dosed for kidney function (2) Dementia: -- Vascular dementia complicated by history of CVA with some chronic expressive aphasia -- Mental status appears to be at baseline (3) Hip fracture: -- POD 4 from trochanteric fixation (4) CAD (coronary artery disease): -- Cardiology consultation reviewed -- Elevated troponin and ECG changes not felt to represent true ACS -- Stable overnight Admission and Anticipated Discharge Date Admission Date: August 22, 2020 Subjective No acute events overnight. Miguel denies pain. No fevers or chills. BP remains s lightly low but acceptable. A fib on monitor with rates ~90-100 bpm. Denies chest pain or palpitations this AM. Tolerated HD yesterday with mild hypotension. Net UF 500 ml. Review of Systems Review of Systems: All systems reviewed & are unremarkable except as noted in HPI & below Limited due to some chronic expressive aphasia Physical Exam Constitutional: well developed, + thin and + frail appearing; no acute distress Eyes: + anicteric sclerae; no corneal abnormality ENMT: Mouth: no oral mucosal abnormality and oral mucous membranes not dry Neck: normal visual inspection and trachea midline RIJ TDC Respiratory: normal respiratory effort Auscultation: lungs clear to auscultation bilaterally Cardiovascular: Rate/Rhythm: + irregularly irregular Heart Sounds: normal S1 and normal S2 Extremities: + AV fistula; no edema Musculoskeletal: Extremities: no cyanosis and no clubbing Skin: normal turgor; no lesions Neurologic: Motor/Sensory: no tremor and no asterixis Psychiatric: Orientation: alert and oriented x 3 Results & Data ([facility]) Vital Signs (Past 12 Hours) Vital Signs Temp Pulse Pulse Pulse Resp BP BP 08/27/20 10:53 36.6 C 84 16 91/54 L 08/27/20 07:58 82 08/27/20 07:04 37.6 C H 90 18 110/69 08/27/20 04:31 37.4 C 86 16 126/76 Pulse Ox 08/27/20 10:53 95 08/27/20 07:58 08/27/20 07:04 96 08/27/20 04:31 98 Laboratory Results Laboratory Results - last 24 hr 08/26/20 08/26/20 08/26/20 15:23 21:10 21:36 WBC RBC Hgb Hct MCV MCH MCHC RDW Std Deviation RDW Coeff of Shayy Plt Count MPV Immature Gran % (Auto) Neut % (Auto) Lymph % (Auto) [place] % (Auto) Eos % (Auto) Baso % (Auto) Neut # (Auto) Lymph # (Auto) [place] # (Auto) Eos # (Auto) Baso # (Auto) Immature Gran # (Auto) Sodium 138 Potassium 4.1 D Chloride 101 Carbon Dioxide 30 Anion Gap 7.0 BUN 26 H D Creatinine 2.71 H D Est Cr Clr Drug Dosing 18.7 Est GFR ( Amer) 25.5 Est GFR (Non-Af Amer) 22.0 BUN/Creatinine Ratio 9.6 L Glucose 128 H POC Glucose 135 H 127 H Calcium 8.2 L Procalcitonin 08/27/20 08/27/20 08/27/20 05:43 05:43 05:43 WBC 11.24 H RBC 2.51 L Hgb 8.0 L Hct 25.6 L MCV 102.0 H MCH 31.9 MCHC 31.3 L RDW Std Deviation 64.9 H RDW Coeff of Shayy 17.5 H Plt Count 200 MPV 10.1 Immature Gran % (Auto) 0.3 Neut % (Auto) 76.0 Lymph % (Auto) 10.5 [place] % (Auto) 12.7 Eos % (Auto) 0.4 Baso % (Auto) 0.1 Neut # (Auto) 8.54 H Lymph # (Auto) 1.18 L [place] # (Auto) 1.43 H Eos # (Auto) 0.05 Baso # (Auto) 0.01 Immature Gran # (Auto) 0.03 H Sodium 139 Potassium 4.3 Chloride 102 Carbon Dioxide 30 Anion Gap 7.0 BUN 37 H Creatinine 3.62 H D Est Cr Clr Drug Dosing 14.0 Est GFR ( Amer) 17.9 Est GFR (Non-Af Amer) 15.5 BUN/Creatinine Ratio 10.2 Glucose 112 H POC Glucose Calcium 8.4 L Procalcitonin 5.27 H 08/27/20 08/27/20 07:16 11:25 WBC RBC Hgb Hct MCV MCH MCHC RDW Std Deviation RDW Coeff of Shayy Plt Count MPV Immature Gran % (Auto) Neut % (Auto) Lymph % (Auto) [place] % (Auto) Eos % (Auto) Baso % (Auto) Neut # (Auto) Lymph # (Auto) [place] # (Auto) Eos # (Auto) Baso # (Auto) Immature Gran # (Auto) Sodium Potassium Chloride Carbon Dioxide Anion Gap BUN Creatinine Est Cr Clr Drug Dosing Est GFR ( Amer) Est GFR (Non-Af Amer) BUN/Creatinine Ratio Glucose POC Glucose 121 H 131 H Calcium Procalcitonin PG Care Time/CCT Total # of Minutes Spent Total Time Spent with Patient: Total time spent is greater than 50% in coordination of care (as documented) at patient's floor/unit and/or counseling patient: Coding Level of Care Code 41020 Subseq Hosp Care Lvl 3 Diagnoses End stage renal failure on dialysis N18.6; Z99.2 Dementia F03.90 Hip fracture S72.009A CAD (coronary artery disease) I25.10 Coronary Disease-Associated Artery/Lesion type: [place] artery [place] vs. transplanted heart: [place] heart Associated angina: without angina (1) CAD (coronary artery disease) Coronary Disease-Associated Artery/Lesion type: [place] artery [place] vs. transplanted heart: [place] heart Associated angina: without angina Qualified Code(s): I25.10 - Atherosclerotic heart disease of [place] coronary artery without angina pectoris
--- NOTE | 2020-08-27 17:00 | Billing Data ---
Date of Service August 27, 2020 Coding Level of Care Code 29227 Subseq Hosp Care Lvl 3
[2020-08-27] MEDS: ATORVASTATIN 40 MG TAB PO SCH (21:11)
[2020-08-27] MEDS: amLODIPine BESYLATE 5 MG TAB PO SCH (21:11)
[2020-08-28 07:12] LABS: Basophils # (auto) 0.01 K/uL (0-0.2); Basophils % (auto) 0.1 %; Eosinophils # (auto) 0.14 K/uL (0-0.5); Eosinophils % (auto) 1.3 %; Hematocrit (blood only) 23.6 % (42-52); Hemoglobin 7.4 g/dL (14.0-18.0); Immature Granulocytes # (auto) 0.04 K/uL (0.00-0.02); Immature Granulocytes % (auto) 0.4 %; Lymphocytes # (auto) 1.73 K/uL (1.2-3.4); Lymphocytes % (auto) 16.4 %; Mean Corpuscular Hemoglobin 31.9 pg (25-34); Mean Corpuscular Hgb Conc 31.4 g/dL (32-36); Mean Corpuscular Volume 101.7 fL (80-100); Mean Platelet Volume 9.6 fL (7.4-10.4); Monocytes % (auto) 13.2 %; Neutrophils # (auto) 7.25 K/uL (1.4-6.5); Neutrophils % (auto) 68.6 %; Platelet Count 212 K/uL (130-400); RDW Coefficient of Variation 17.1 % (11.5-14.5); RDW Standard Deviation 62.5 fL (36.4-46.3); Red Blood Count 2.32 M/uL (4.7-6.1); White Blood Count 10.57 K/uL (4.8-10.8)
[2020-08-28 07:32] LABS: RBC Morphology Unremarkable
[2020-08-28 08:15] LABS: BUN Creatinine Ratio 12.4 (10-20); Calcium 8.1 mg/dl (8.5-10.1); Creatinine Clr Calc Pharmacy 9.3 ml/min; Est GFR (African American) 10.9; Est GFR (Non-African American) 9.4; Potassium 4.8 mmol/L (3.5-5.1)
[2020-08-28] MEDS: INSULIN ASPART 100 UNITS/ML 3 ML PEN SC SCH ×4 (08:48→21:02)
[2020-08-28] MEDS: CLOPIDOGREL BISULFATE 75 MG TAB PO SCH (08:50)
[2020-08-28] MEDS: levETIRAcetam 500 MG TAB PO SCH (08:50)
[2020-08-28] MEDS: FAMOTIDINE 40 MG TABLET PO SCH ×2 (08:50→20:59)
[2020-08-28] MEDS: ISOSORBIDE MONO EXTENDED REL 60 MG TABCR PO SCH (08:51)
[2020-08-28] MEDS: DOCUSATE SODIUM 100 MG CAP PO SCH (08:51)
[2020-08-28] MEDS: NEPHROCAPS PO SCH (08:51)
[2020-08-28] MEDS: CITALOPRAM 20 MG TAB PO SCH ×2 (08:52→20:59)
[2020-08-28] MEDS: INSULIN GLARGINE SOLOSTAR 100 UNITS/ML 3 ML PEN SC SCH (08:52)
[2020-08-28] MEDS: POLYETHYLENE (MIRALAX) 17 GM PACK PO SCH (08:53)
--- NOTE | 2020-08-28 10:24 | Hospitalist Progress Note ---
Date of Service August 28, 2020 Assessment & Plan (1) Hip fracture: Miguel Mata is 75y/o M with a PMH of hypercholesterolemia, GERD, coronary artery disease, renal artery stenosis, past history of cerebral infarction, DM, hemiparesis, CHF, peripheral artery disease, history of syncope, end-stage renal disease on hemodialysis, second-degree Mobitz type I; presented following a fall sustained at his house. Hip fracture POD 5 s/p R trochanteric fixation - Patient has a questionable candidate for return of home given baseline mental status and complicated diseases - pain control with tylenol 650 mg PO Q4H PRN, Dilaudid 0.5mg IV Q4 PRN Acute renal failure requiring hemodialysis: - Creatinine on presentation was 8, improving with hemodialysis - Nephrology consulted: continue hemodialysis MWF - Trend BMP daily Chest discomfort: resolved - atypical anginal symptoms, more consistent with aspiration vs. gastric distension - Likely contributions from ischemia secondary to decreased volume status following dialysis - Given need for dialysis as above, patient seemingly likely a tenuous volume status given potential complications from dialysis generating increased demand ischemia - Echo demonstrating EF 40-45% - Will avoid beta-blockers Leukocytosis s/p surgery: improving - started Ancef 2gm q8h after worsening leukocytosis, showing improvement in labs. will flip to keflex on discharge to finish 7 day course. - WBC downtrended from 11 to 10 - Pro-nicko from 5.27 to 3.65 - anuric; cannot be UTI with inability to describe symptoms - no evident skin or soft-tissue source of infection - Blood cultures x2 drawn, negative at 48 hours - penile culture from 08/22 demonstrated Klebsiella, and Enterococcus - ddx: post op fever due to atelectasis? developing PNA? Type 2 diabetes: - Holding home meds - Glycemic consult placed Coronary artery disease: - Continue home atorvastatin 80 mg p.o. at bedtime - Continue clopidogrel 75 mg p.o. daily - Continue nitrates History of renal artery stenosis: - Stented and hypertension well-controlled on amlodipine - Continue amlodipine 2.5mg GERD: - Continue famotidine Anxiety/depression: - Continue citalopram Constipation: - Continue docusate - Continue MiraLAX DVT ppx: SCD to thigh FEN/GI: PO fluid intake, electrolytes balanced by HD Code Status: full code Dispo: d/c awaiting prior auth for [facility]. downgraded to med/surg. (2) Chest discomfort: Admission and Anticipated Discharge Date Admission Date: August 22, 2020 Supervising Physician Co-Signing Physician Notes I personally examined the patient and verified all grande points of history and exam, discussed case, and agree with decision making with Dr Kothari. no new problems identified vitals noted nad heent nc at mmm breathing unlabored no accessory muscles good effort skin no rashes no pallor or icterus hyperkalemia - med management, HD. improved, follow BMP periodically CAD w demand ischemia - med management. fortunately while EKG shows a degree of ischemia, troponin only remains mildly elevated. tried to initiate beta amrit but appears to be too tenuous with volume status to tolerate given hypotension. now appears to be a stable issue progressive leukocytosis - nonspecific exam and no clear s//s but very difficult hx. w rise in white count, low grade temps, high inflammatory markers - empiric abx initiated on 08/26 - clinical status and WBC both have improved. source not entirely clear but urinary most probable. continue current abx, could likely switch to cephalexin when he has a rehab bed hip fx - post op. PT/OT. rehab once approved. DVT proph - SCDs otherwise as above Subjective continues to be minimally vocal today. Review of Systems Review of Systems: Unobtainable due to reduced consciousness Physical Exam Physical Exam: Constitutional: thin, having difficulty speaking Eyes: EOMI, pupils equal and reactive bilaterally, no scleral icterus Cardiac: Afib, regular rate, 3/6 systolic murmur at L 2nd intercostal space Pulm: CTA BL, no work of breathing, no focal abnormal lung sounds Extremities: 2+ peripheral pulses, no edema Results & Data Results & Data ([facility]) Vital Signs (Past 12 Hours) Vital Signs Temp Pulse Resp BP Pulse Ox 08/28/20 07:28 36.8 C 84 16 129/70 93 08/27/20 23:12 37.2 C 76 16 130/68 95 Laboratory Results WBC 10.57 K/uL (4.8-10.8) 08/28/20 07:01 RBC 2.32 M/uL (4.7-6.1) L 08/28/20 07:01 Hgb 7.4 g/dL (14.0-18.0) L 08/28/20 07:01 Hct 23.6 % (42-52) L 08/28/20 07:01 MCV 101.7 fL (80-100) H 08/28/20 07:01 MCH 31.9 pg (25-34) 08/28/20 07:01 MCHC 31.4 g/dL (32-36) L 08/28/20 07:01 RDW Std Deviation 62.5 fL (36.4-46.3) H 08/28/20 07:01 RDW Coeff of Shayy 17.1 % (11.5-14.5) H 08/28/20 07:01 Plt Count 212 K/uL (130-400) 08/28/20 07:01 MPV 9.6 fL (7.4-10.4) 08/28/20 07:01 Immature Gran % (Auto) 0.4 % 08/28/20 07:01 Neut % (Auto) 68.6 % 08/28/20 07:01 Lymph % (Auto) 16.4 % 08/28/20 07:01 [place] % (Auto) 13.2 % 08/28/20 07:01 Eos % (Auto) 1.3 % 08/28/20 07:01 Baso % (Auto) 0.1 % 08/28/20 07:01 Neut # (Auto) 7.25 K/uL (1.4-6.5) H 08/28/20 07:01 Lymph # (Auto) 1.73 K/uL (1.2-3.4) 08/28/20 07:01 [place] # (Auto) 1.40 K/uL (0.11-0.59) H 08/28/20 07:01 Eos # (Auto) 0.14 K/uL (0-0.5) 08/28/20 07:01 Baso # (Auto) 0.01 K/uL (0-0.2) 08/28/20 07:01 Immature Gran # (Auto) 0.04 K/uL (0.00-0.02) H 08/28/20 07:01 Absolute Nucleated RBC 0.03 K/uL (0-0) H 08/26/20 08:45 Nucleated RBC % (auto) 0.2 % 08/26/20 08:45 Neutrophils % (Manual) Cancelled 08/26/20 08:14 Band Neutrophils % Cancelled 08/26/20 08:14 Lymphocytes % (Manual) Cancelled 08/26/20 08:14 Prolymphocyte % Cancelled 08/26/20 08:14 Reactive Lymphs % (Man) Cancelled 08/26/20 08:14 Monocytes % (Manual) Cancelled 08/26/20 08:14 Eosinophils % (Manual) Cancelled 08/26/20 08:14 Basophils % (Manual) Cancelled 08/26/20 08:14 Metamyelocytes % (Man) Cancelled 08/26/20 08:14 Myelocytes % (Man) Cancelled 08/26/20 08:14 Promyelocytes % (Man) Cancelled 08/26/20 08:14 Blast Cells % (Manual) Cancelled 08/26/20 08:14 Plasma Cell % (Manual) Cancelled 08/26/20 08:14 Other Cells % Cancelled 08/26/20 08:14 Nucleated RBC % Cancelled 08/26/20 08:14 Neutrophils # (Manual) Cancelled 08/26/20 08:14 Band Neutrophils # Cancelled 08/26/20 08:14 Total Absolute Neuts Cancelled 08/26/20 08:14 Lymphocytes # (Manual) Cancelled 08/26/20 08:14 Prolymphocyte # Cancelled 08/26/20 08:14 Reactive Lymphs # Cancelled 08/26/20 08:14 Total Abs Lymphocytes Cancelled 08/26/20 08:14 Monocytes # (Manual) Cancelled 08/26/20 08:14 Eosinophils # (Manual) Cancelled 08/26/20 08:14 Basophils # (Manual) Cancelled 08/26/20 08:14 Metamyelocytes # (Man) Cancelled 08/26/20 08:14 Myelocytes # (Manual) Cancelled 08/26/20 08:14 Promyelocytes # (Man) Cancelled 08/26/20 08:14 Blast Cells # (Man) Cancelled 08/26/20 08:14 Plasma Cell # (Manual) Cancelled 08/26/20 08:14 Other Cells # Cancelled 08/26/20 08:14 Nucleated RBCs # (Man) Cancelled 08/26/20 08:14 Hypersegmented Neuts Cancelled 08/26/20 08:14 Hyposegmented Neuts Cancelled 08/26/20 08:14 Hypogranular Neuts Cancelled 08/26/20 08:14 Large Granular Lymphs Cancelled 08/26/20 08:14 # Lrg Granular Lymphs Cancelled 08/26/20 08:14 Hairy Cells Cancelled 08/26/20 08:14 Smudge Cells Cancelled 08/26/20 08:14 Toxic Granulation Cancelled 08/26/20 08:14 Toxic Vacuolation Cancelled 08/26/20 08:14 Dohle Bodies Cancelled 08/26/20 08:14 Jovon Rods Cancelled 08/26/20 08:14 Platelet Estimate Cancelled 08/26/20 08:14 Hypogranular Platelets Cancelled 08/26/20 08:14 Clumped Platelets Cancelled 08/26/20 08:14 Giant Platelets Cancelled 08/26/20 08:14 Platelet Satelliting Cancelled 08/26/20 08:14 RBC Morphology Unremarkable 08/28/20 07:01 Polychromasia 1+ 08/26/20 08:45 Hypochromasia Cancelled 08/26/20 08:14 Poikilocytosis Cancelled 08/26/20 08:14 Basophilic Stippling Cancelled 08/26/20 08:14 Anisocytosis Cancelled 08/26/20 08:14 Microcytosis Cancelled 08/26/20 08:14 Macrocytosis Cancelled 08/26/20 08:14 Spherocytes Cancelled 08/26/20 08:14 Pappenheimer Bodies Cancelled 08/26/20 08:14 Sickle Cells Cancelled 08/26/20 08:14 Target Cells Cancelled 08/26/20 08:14 Tear Drop Cells Cancelled 08/26/20 08:14 Ovalocytes Cancelled 08/26/20 08:14 Stomatocytes Cancelled 08/26/20 08:14 [place] Bodies Cancelled 08/26/20 08:14 Echinocytes 1+ 08/26/20 08:45 Acanthocytes (Spur) Cancelled 08/26/20 08:14 Rouleaux Cancelled 08/26/20 08:14 RBC Agglutinates Cancelled 08/26/20 08:14 Schistocytes Cancelled 08/26/20 08:14 RBC Morph Comment Cancelled 08/26/20 08:14 Sezary Cell Cancelled 08/26/20 08:14 PT 11.0 Seconds (9.0-12.0) 08/22/20 03:00 INR 1.0 (0.9-1.1) 08/22/20 03:00 APTT 24.5 Seconds (21.0-31.0) 08/22/20 03:00 PTT Ratio 0.9 08/22/20 03:00 Sodium 137 mmol/L (136-145) 08/28/20 07:01 Potassium 4.8 mmol/L (3.5-5.1) 08/28/20 07:01 Chloride 100 mmol/L (98-107) 08/28/20 07:01 Carbon Dioxide 29 mmol/L (21-32) 08/28/20 07:01 Anion Gap 8.0 (3-11) 08/28/20 07:01 BUN 68 mg/dl (7-18) H D 08/28/20 07:01 Creatinine 5.46 mg/dl (0.6-1.4) H* D 08/28/20 07:01 Est Cr Clr Drug Dosing 9.3 ml/min 08/28/20 07:01 Est GFR ( Amer) 10.9 08/28/20 07:01 Est GFR (Non-Af Amer) 9.4 08/28/20 07:01 BUN/Creatinine Ratio 12.4 (10-20) 08/28/20 07:01 Glucose 120 mg/dl (70-99) H 08/28/20 07:01 POC Glucose 145 mg/dl (70-99) H 08/28/20 11:56 Calcium 8.1 mg/dl (8.5-10.1) L 08/28/20 07:01 Troponin I 0.599 ng/ml (0-0.045) H* 08/25/20 11:12 Procalcitonin 3.65 ng/ml (0-0.5) H 08/28/20 07:01 Urine Color Yellow 08/22/20 05:19 Urine Appearance Clear (Clear) 08/22/20 05:19 Urine pH 7.5 (4.5-7.5) 08/22/20 05:19 Ur Specific [place] 1.016 (1.000-1.030) 08/22/20 05:19 Urine Protein 3+ (Negative) H 08/22/20 05:19 Urine Glucose (UA) Trace (Negative) H 08/22/20 05:19 Urine Ketones Trace (Negative) H 08/22/20 05:19 Urine Blood 2+ (Negative) H 08/22/20 05:19 Urine Nitrite Negative (Negative) 08/22/20 05:19 Urine Bilirubin Negative (Negative) 08/22/20 05:19 Urine Urobilinogen Negative (Negative) 08/22/20 05:19 Ur Leukocyte Esterase Negative (Negative) 08/22/20 05:19 Urine WBC (Auto) 5-10 /hpf (0-5) H 08/22/20 05:19 Urine RBC (Auto) >30 /hpf (0-4) H 08/22/20 05:19 U Hyaline Cast (Auto) 1-5 /lpf (0-5) 08/22/20 05:19 U Epithel Cells (Auto) >30 /lpf (0-5) H 08/22/20 05:19 Urine Bacteria (Auto) Negative (Negative) 08/22/20 05:19 Ur Renal Epithelial Cell Not Reportable 08/22/20 05:19 SARS-CoV-2 Ag (Rapid) Negative (Negative) 08/22/20 Unknown Blood Type A Positive 08/22/20 05:19 Antibody Screen NEGATIVE 08/22/20 05:19 Resident Activity Tracking Resident Involvement: Resident Care Provided Care Provided: Adult Hospital Medicine
--- NOTE | 2020-08-28 11:38 | Nephrology Progress Note ---
Date of Service August 28, 2020 Assessment & Plan (1) End stage renal failure on dialysis: -- On HD MWF -- BP acceptable -- Volume status controlled -- Electrolytes normal -- No role for HD today -- Nephrocaps and renal diet -- Medications are appropriately dosed for kidney function (2) Dementia: -- Vascular dementia complicated by history of CVA with some chronic expressive aphasia (3) Hip fracture: -- POD 5 from trochanteric fixation (4) CAD (coronary artery disease): -- Cardiology consultation reviewed -- Elevated troponin and ECG changes not felt to represent true ACS -- Stable overnight (5) Anemia: -- Repeat tomorrow AM -- Iron profile with AM labs -- Venofer PRN with HD -- Epogen tomorrow with HD Admission and Anticipated Discharge Date Admission Date: August 22, 2020 Subjective No acute events overnight. Miguel denies pain. No fevers or chills. No signs of bleeding per report. Review of Systems Review of Systems: All systems reviewed & are unremarkable except as noted in HPI & below Physical Exam Constitutional: well developed, + thin and + frail appearing; no acute distress Eyes: + anicteric sclerae; no corneal abnormality ENMT: Mouth: no oral mucosal abnormality and oral mucous membranes not dry Neck: normal visual inspection and trachea midline Respiratory: normal respiratory effort Auscultation: lungs clear to auscultation bilaterally Cardiovascular: Rate/Rhythm: + irregularly irregular Heart Sounds: normal S1 and normal S2 Extremities: + AV fistula; no edema Musculoskeletal: Extremities: no cyanosis and no clubbing Skin: normal turgor; no lesions Neurologic: Motor/Sensory: no tremor and no asterixis Psychiatric: Orientation: alert and oriented x 3 Results & Data ([facility]) Vital Signs (Past 12 Hours) Vital Signs Temp Pulse Resp BP Pulse Ox 08/28/20 07:28 36.8 C 84 16 129/70 93 Laboratory Results Laboratory Results - last 24 hr 08/27/20 08/27/20 08/27/20 15:48 16:42 20:54 WBC RBC Hgb Hct MCV MCH MCHC RDW Std Deviation RDW Coeff of Shayy Plt Count MPV Immature Gran % (Auto) Neut % (Auto) Lymph % (Auto) [place] % (Auto) Eos % (Auto) Baso % (Auto) Neut # (Auto) Lymph # (Auto) [place] # (Auto) Eos # (Auto) Baso # (Auto) Immature Gran # (Auto) RBC Morphology Sodium Potassium Chloride Carbon Dioxide Anion Gap BUN Creatinine Est Cr Clr Drug Dosing Est GFR ( Amer) Est GFR (Non-Af Amer) BUN/Creatinine Ratio Glucose POC Glucose 154 H 154 H 118 H Calcium Procalcitonin 08/28/20 08/28/20 08/28/20 07:01 07:01 07:01 WBC 10.57 RBC 2.32 L Hgb 7.4 L Hct 23.6 L MCV 101.7 H MCH 31.9 MCHC 31.4 L RDW Std Deviation 62.5 H RDW Coeff of Shayy 17.1 H Plt Count 212 MPV 9.6 Immature Gran % (Auto) 0.4 Neut % (Auto) 68.6 Lymph % (Auto) 16.4 [place] % (Auto) 13.2 Eos % (Auto) 1.3 Baso % (Auto) 0.1 Neut # (Auto) 7.25 H Lymph # (Auto) 1.73 [place] # (Auto) 1.40 H Eos # (Auto) 0.14 Baso # (Auto) 0.01 Immature Gran # (Auto) 0.04 H RBC Morphology Unremarkable Sodium 137 Potassium 4.8 Chloride 100 Carbon Dioxide 29 Anion Gap 8.0 BUN 68 H D Creatinine 5.46 H* D Est Cr Clr Drug Dosing 9.3 Est GFR ( Amer) 10.9 Est GFR (Non-Af Amer) 9.4 BUN/Creatinine Ratio 12.4 Glucose 120 H POC Glucose Calcium 8.1 L Procalcitonin 3.65 H 08/28/20 08:04 WBC RBC Hgb Hct MCV MCH MCHC RDW Std Deviation RDW Coeff of Shayy Plt Count MPV Immature Gran % (Auto) Neut % (Auto) Lymph % (Auto) [place] % (Auto) Eos % (Auto) Baso % (Auto) Neut # (Auto) Lymph # (Auto) [place] # (Auto) Eos # (Auto) Baso # (Auto) Immature Gran # (Auto) RBC Morphology Sodium Potassium Chloride Carbon Dioxide Anion Gap BUN Creatinine Est Cr Clr Drug Dosing Est GFR ( Amer) Est GFR (Non-Af Amer) BUN/Creatinine Ratio Glucose POC Glucose 126 H Calcium Procalcitonin Diagnostic Findings Laboratory Results - last 24 hr 08/27/20 08/27/20 08/27/20 15:48 16:42 20:54 WBC RBC Hgb Hct MCV MCH MCHC RDW Std Deviation RDW Coeff of Shayy Plt Count MPV Immature Gran % (Auto) Neut % (Auto) Lymph % (Auto) [place] % (Auto) Eos % (Auto) Baso % (Auto) Neut # (Auto) Lymph # (Auto) [place] # (Auto) Eos # (Auto) Baso # (Auto) Immature Gran # (Auto) RBC Morphology Sodium Potassium Chloride Carbon Dioxide Anion Gap BUN Creatinine Est Cr Clr Drug Dosing Est GFR ( Amer) Est GFR (Non-Af Amer) BUN/Creatinine Ratio Glucose POC Glucose 154 H 154 H 118 H Calcium Procalcitonin 08/28/20 08/28/20 08/28/20 07:01 07:01 07:01 WBC 10.57 RBC 2.32 L Hgb 7.4 L Hct 23.6 L MCV 101.7 H MCH 31.9 MCHC 31.4 L RDW Std Deviation 62.5 H RDW Coeff of Shayy 17.1 H Plt Count 212 MPV 9.6 Immature Gran % (Auto) 0.4 Neut % (Auto) 68.6 Lymph % (Auto) 16.4 [place] % (Auto) 13.2 Eos % (Auto) 1.3 Baso % (Auto) 0.1 Neut # (Auto) 7.25 H Lymph # (Auto) 1.73 [place] # (Auto) 1.40 H Eos # (Auto) 0.14 Baso # (Auto) 0.01 Immature Gran # (Auto) 0.04 H RBC Morphology Unremarkable Sodium 137 Potassium 4.8 Chloride 100 Carbon Dioxide 29 Anion Gap 8.0 BUN 68 H D Creatinine 5.46 H* D Est Cr Clr Drug Dosing 9.3 Est GFR ( Amer) 10.9 Est GFR (Non-Af Amer) 9.4 BUN/Creatinine Ratio 12.4 Glucose 120 H POC Glucose Calcium 8.1 L Procalcitonin 3.65 H 08/28/20 08:04 WBC RBC Hgb Hct MCV MCH MCHC RDW Std Deviation RDW Coeff of Shayy Plt Count MPV Immature Gran % (Auto) Neut % (Auto) Lymph % (Auto) [place] % (Auto) Eos % (Auto) Baso % (Auto) Neut # (Auto) Lymph # (Auto) [place] # (Auto) Eos # (Auto) Baso # (Auto) Immature Gran # (Auto) RBC Morphology Sodium Potassium Chloride Carbon Dioxide Anion Gap BUN Creatinine Est Cr Clr Drug Dosing Est GFR ( Amer) Est GFR (Non-Af Amer) BUN/Creatinine Ratio Glucose POC Glucose 126 H Calcium Procalcitonin PG Care Time/CCT Total # of Minutes Spent Total Time Spent with Patient: Total time spent is greater than 50% in coordination of care (as documented) at patient's floor/unit and/or counseling patient: Coding Level of Care Code 38606 Subseq Hosp Care Lvl 3 Diagnoses End stage renal failure on dialysis N18.6; Z99.2 Dementia F03.90 Hip fracture S72.009A CAD (coronary artery disease) I25.10 Coronary Disease-Associated Artery/Lesion type: [place] artery [place] vs. transplanted heart: [place] heart Associated angina: without angina Anemia D64.9 (1) CAD (coronary artery disease) Coronary Disease-Associated Artery/Lesion type: [place] artery [place] vs. transplanted heart: [place] heart Associated angina: without angina Qualified Code(s): I25.10 - Atherosclerotic heart disease of [place] coronary artery without angina pectoris
--- NOTE | 2020-08-28 14:39 | Pharmacy Report ---
Pharmacy Glycemic Short Note 2 - Date of Service August 28, 2020 - Glycemic Short BSG Results (Last 24 hours): 08/27/20 08/27/20 08/27/20 15:48 16:42 20:54 Glucose POC Glucose 154 H 154 H 118 H 08/28/20 08/28/20 08/28/20 07:01 08:04 11:56 Glucose 120 H POC Glucose 126 H 145 H OUTPATIENT ANTIDIABETIC REGIMEN: * Glipizide ASSESSMENT: 08/28 * Patient received total 12 units of insulin yesterday; 5 units of basal and 7 units of bolus. * Fasting BSG today was 126 mg/dl. Post-prandial BSGs at goal. * Continued Lantus and Novolog parameters. 08/25 * Patient received total of 8 units of insulin yesterday all of which was Novolog bolus. * Fasting BSG was 161 mg/dl this AM. Added basal Lantus this AM based on wt and stress factor of 1 for elevated BSG. * Patient ordered a diet this AM which is a change from yesterday. PLAN FOR INPATIENT GLYCEMIC CONTROL: * Hold outpatient oral diabetes medications * Basal insulin- continued * Lantus 5 units SQ QAM * Bolus insulin: continued * NovoLog per scale ACHS or Q6hrs while NPO * Goal Range: Low 110 mg/dL - High 140 mg/dL * Correction Factor: 35 mg/dL/unit * Nutritional / Prandial insulin per carb ratio of 1 unit per 10 grams CHO consumed PLAN FOR DISCHARGE: * Continue on oral Glipizide on discharge as long as patient is not reporting hypoglycemia at home.
--- NOTE | 2020-08-28 18:47 | Billing Data ---
Date of Service August 28, 2020 Coding Level of Care Code 82511 Subseq Hosp Care Lvl 2
[2020-08-28] MEDS: amLODIPine BESYLATE 5 MG TAB PO SCH (21:00)
[2020-08-28] MEDS: ATORVASTATIN 40 MG TAB PO SCH (21:00)
[2020-08-29] MEDS ORDERED: EPOETIN ALFA 40,000 UNITS/ML VIAL IV ONE (07:00)
[2020-08-29 07:01] LABS: Hematocrit (blood only) 25.7 % (42-52); Hemoglobin 8.1 g/dL (14.0-18.0); Mean Corpuscular Hemoglobin 31.9 pg (25-34); Mean Corpuscular Hgb Conc 31.5 g/dL (32-36); Mean Corpuscular Volume 101.2 fL (80-100); Mean Platelet Volume 10.4 fL (7.4-10.4); Nucleated RBC # (auto) 0.03 K/uL (0-0); Nucleated RBC % (auto) 0.2 %; Platelet Count 253 K/uL (130-400); RDW Coefficient of Variation 16.7 % (11.5-14.5); RDW Standard Deviation 61.3 fL (36.4-46.3); Red Blood Count 2.54 M/uL (4.7-6.1); White Blood Count 11.43 K/uL (4.8-10.8)
--- NOTE | 2020-08-29 07:06 | Discharge Summary ---
Date of Service August 29, 2020 Discharge Data Allergies Allergy/AdvReac Type Severity Reaction Status Date / Time adhesive Allergy Unknown BLISTERING Verified 08/22/20 03:30 OF SKIN latex Allergy Unknown Rash Verified 08/22/20 03:30 Consultations 08/22/20 04:45 ED Decision to Admit Stat 08/22/20 05:28 Consult Nephrology Routine 08/22/20 13:01 Consult Orthopedic Surgery Routine 08/23/20 07:41 Consult Cardiology Routine 08/23/20 19:53 Consult Case Management - Discharge Planning Routine Procedures Performed Operation Date: 08/23/20 08:40 Actual Procedures p Right Trochanteric Femoral Nail Synthes(Right) - Joss Young MD Ordered Studies 08/22/20 09:54 CT head/brain wo con Stat 08/22/20 20:12 CT hip RT wo con Urgent 08/23/20 13:00 FL fluoroscopy <1hr Routine FL hip RT 2-3V Routine 08/23/20 15:46 US guide vascular access Stat Discharge Plan Discharge Items Reason For Visit: HIP FX Follow-up/Referrals: Erick Zapata III, MD [Primary Care Provider] - Medications and DC Order Prescriptions: No Action sennosides [Senokot] 8.6 mg tablet 8.6 mg PO QPM PRN (Reason: Constipation) Qty: 30 RF: 0 amlodipine [Norvasc] 5 mg tablet 2.5 mg PO QPM Qty: 45 RF: 3 isosorbide mononitrate 60 mg tablet extended release 24 hr 60 mg PO DAILY Qty: 30 RF: 5 citalopram 10 mg tablet 10 mg PO HS Qty: 30 RF: 5 calcitriol [Rocaltrol] 0.25 mcg capsule 0.25 mcg PO 3XWK Qty: 15 RF: 5 famotidine 40 mg tablet 40 mg PO BID Qty: 180 RF: 3 hydrocortisone [Proctosol HC] 2.5 % cream with perineal applicator 1 appln [place] DAILY PRN (Reason: itching) Qty: 28 RF: 0 docusate sodium [Stool Softener] 100 mg capsule 100 mg PO DAILY RF: 0 Renal Caps 1 mg Capsule 1 cap PO QAM Qty: 30 RF: 0 polyethylene glycol 3350 [Miralax] 17 gram powder in packet 17 gm PO DAILY Qty: 0 RF: 0 nitroglycerin [Nitrostat] 0.4 mg tablet, sublingual 0.4 mg SL UD PRN (Reason: Chest Pain) RF: 0 atorvastatin [Lipitor] 80 mg tablet 80 mg PO HS RF: 0 levetiracetam [Keppra] 500 mg tablet 500 mg PO 4XWK RF: 0 clopidogrel [Plavix] 75 mg tablet 75 mg PO DAILY RF: 0 citalopram 20 mg tablet 20 mg PO QAM RF: 0 glipizide 2.5 mg tablet extended release 24hr 2.5 mg PO UD RF: 0 Admission Data Admit Date/Time: 08/22/20 05:35 Attending Provider: Rani Walter Admit Provider: Trip Daniels Primary Care Provider: Erick Zapata III Other Providers: [facility] ; Shad Griffiths [facility] ; Gerri Kothari ; Trip Daniels ; Oneyda Melendrez ; Nas Villagran ; Jarrod Malik ; Tabitha Muniz ; Joss Maxwell ; Joss Young ; Kareem Gallardo ; Jonh Yeager
--- NOTE | 2020-08-29 07:09 | Hospitalist Progress Note ---
Date of Service August 29, 2020 Assessment & Plan (1) Hip fracture: Miguel Mata is 75y/o M with a PMH of hypercholesterolemia, GERD, coronary artery disease, renal artery stenosis, past history of cerebral infarction, DM, hemiparesis, CHF, peripheral artery disease, history of syncope, end-stage renal disease on hemodialysis, second-degree Mobitz type I; presented following a fall sustained at his house. Hip fracture s/p R trochanteric fixation - S/P R Trochanteric Fixation on 08/23/20 - pain control with tylenol 650 mg PO Q4H PRN, Dilaudid 0.5mg IV Q4 PRN - Case management assisting on referral to [facility] - PT/OT Reevaluation today for placement request. ESRD on Hemodialysis - Nephrology consulted: continue hemodialysis MWF - Daily BMP Chest discomfort: resolved - atypical anginal symptoms, more consistent with aspiration vs. gastric distensions - Echo - No WMA. EF 40-45% - Will avoid beta-blockers as patient did not tolerate in the past due to hypotension Leukocytosis - started Ancef 2gm q8h after worsening leukocytosis -- completed 7 day course on 08/29/20 - WBC stable at 11.43 this AM - Pro-nicko from 5.27 to 3.65 - anuric; - no evident skin or soft-tissue source of infection - Blood cultures x2 drawn, negative to date - penile culture from 08/22 demonstrated Klebsiella, and Enterococcus Type 2 diabetes: - Holding home meds - Glycemic consult placed Coronary artery disease: - Continue home atorvastatin 80 mg p.o. at bedtime - Continue clopidogrel 75 mg p.o. daily - Continue nitrates History of renal artery stenosis: - Stented and hypertension well-controlled on amlodipine - Continue amlodipine 2.5mg GERD: - Continue famotidine Anxiety/depression: - Continue citalopram - Continue home Keppra Constipation: - Continue docusate - Continue MiraLAX DVT ppx: SCD to thigh FEN/GI: PO fluid intake, electrolytes balanced by HD Code Status: full code Dispo: Med/Surg, awaiting prior auth [facility] vs [facility] Admission and Anticipated Discharge Date Admission Date: August 22, 2020 Supervising Physician Co-Signing Physician Notes Resident Physician Supervision Note: I independently interviewed and examined the patient and verified the grande history and physical, reviewed labs and image studies, discussed the case with the resident Dr. Alfonso and agree with the findings and care plan. Subjective Patient evaluated at the bedside this morning. Patient noting that over all feeling well and not currently in any pain. States that he is unsure of where he is or when it is, thought thinks he may be in [place]. No concerns at this time per patient. Review of Systems Constitutional: no fever, no chills and no weakness Eyes: no worsening vision Respiratory: no cough and no pain on inspiration Cardiovascular: no chest pain and no dyspnea on exertion Gastrointestinal: no abdominal pain, no nausea and no vomiting Physical Exam Constitutional: cooperative; no acute distress Respiratory: normal respiratory effort, lungs clear to auscultation Cardiovascular: Rate/Rhythm: regular rate and regular rhythm Heart Sounds: no murmur Gastrointestinal (Abdomen): normal bowel sounds, soft, nontender, no hepatosplenomegaly Musculoskeletal: Primarily only moves LUE, very minimal No movement of RUE, RLE. Skin: RLE dressing clean, dry, intact Psychiatric: Orientation: alert and oriented to person; + not oriented to place and + not oriented to time Results & Data Results & Data ([facility]) Vital Signs (Past 12 Hours) Vital Signs Temp Pulse Resp BP Pulse Ox 08/28/20 23:32 37.1 C 78 18 106/65 100 Resident Activity Tracking Resident Involvement: Resident Care Provided Care Provided: Adult Hospital Medicine
[2020-08-29 07:42] LABS: Albumin Level 2.2 gm/dl (3.4-5.0); BUN Creatinine Ratio 14.9 (10-20); Calcium 7.8 mg/dl (8.5-10.1); Creatinine Clr Calc Pharmacy 7.7 ml/min; Est GFR (African American) 8.7; Est GFR (Non-African American) 7.5; Potassium 5.3 mmol/L (3.5-5.1)
[2020-08-29] MEDS: CLOPIDOGREL BISULFATE 75 MG TAB PO SCH (08:25)
[2020-08-29] MEDS: FAMOTIDINE 40 MG TABLET PO SCH ×2 (08:25→21:47)
[2020-08-29] MEDS: ISOSORBIDE MONO EXTENDED REL 60 MG TABCR PO SCH (08:26)
[2020-08-29] MEDS: NEPHROCAPS PO SCH (08:26)
[2020-08-29] MEDS: CITALOPRAM 20 MG TAB PO SCH ×2 (08:26→21:46)
[2020-08-29] MEDS: CALCITRIOL 0.25 MCG CAPSULE PO SCH (08:26)
[2020-08-29] MEDS: INSULIN ASPART 100 UNITS/ML 3 ML PEN SC SCH ×4 (08:28→22:38)
[2020-08-29] MEDS: INSULIN GLARGINE SOLOSTAR 100 UNITS/ML 3 ML PEN SC SCH (08:28)
[2020-08-29] MEDS: DOCUSATE SODIUM 100 MG CAP PO SCH (08:33)
[2020-08-29] MEDS: POLYETHYLENE (MIRALAX) 17 GM PACK PO SCH (08:33)
--- NOTE | 2020-08-29 09:04 | Pharmacy Report ---
Pharmacy Glycemic Short Note 2 - Date of Service August 29, 2020 - Glycemic Short BSG Results (Last 24 hours): 08/28/20 08/28/20 08/28/20 11:56 17:02 20:51 Glucose POC Glucose 145 H 100 H 174 H 08/29/20 08/29/20 08/29/20 06:34 07:49 08:07 Glucose 128 H POC Glucose 136 H 138 H OUTPATIENT ANTIDIABETIC REGIMEN: * Glipizide ASSESSMENT: 08/29 * BSGs reasonably well controlled yesterday, 126, 165, 100, and 174 mg/dL * Patient received total 22 units of insulin yesterday; 5 units of basal and 17 units of prandial/correctional * Fasting BSG today was 136 mg/dl * Will increase Lantus by 1 unit (~20%) * Continue current Novolog parameters * Hemodialysis scheduled for today 08/25 * Patient received total of 8 units of insulin yesterday all of which was Alecia log bolus. * Fasting BSG was 161 mg/dl this AM. Added basal Lantus this AM based on wt and stress factor of 1 for elevated BSG. * Patient ordered a diet this AM which is a change from yesterday. PLAN FOR INPATIENT GLYCEMIC CONTROL: * Hold outpatient oral diabetes medications * Basal insulin- increase * Lantus 6 units SQ QAM * Bolus insulin: continue * NovoLog per scale ACHS or Q6hrs while NPO * Goal Range: Low 110 mg/dL - High 140 mg/dL * Correction Factor: 35 mg/dL/unit * Nutritional / Prandial insulin per carb ratio of 1 unit per 10 grams CHO consumed PLAN FOR DISCHARGE: * Continue on oral Glipizide on discharge as long as patient is not reporting hypoglycemia at home.
--- NOTE | 2020-08-29 10:08 | Nephrology Progress Note ---
Date of Service August 29, 2020 Assessment & Plan (1) End stage renal failure on dialysis: -- HD orders entered into EMR and reviewed with dialysis nurse -- Miguel was evaluated during HD and tolerated treatment well -- Qb at goal -- BP acceptable -- UF goal 1.5 L -- Low potassium bath for hyperkalemia -- Nephrocaps and renal diet -- Medications are appropriately dosed for kidney function (2) Dementia: -- Vascular dementia complicated by history of CVA with some chronic expressive aphasia -- Goals of care and treatment plan to be updated and reviewed with patient's and son (3) Hip fracture: -- POD 6 from trochanteric fixation (4) CAD (coronary artery disease): (5) Anemia: -- Epogen 73654 units today with HD Admission and Anticipated Discharge Date Admission Date: August 22, 2020 Subjective No acute events overnight. Miguel denies pain. No fevers or chills. No signs of bleeding per report. Miguel was seen prior to and during hemodialysis this AM. Review of Systems Review of Systems: All systems reviewed & are unremarkable except as noted in HPI & below Physical Exam Constitutional: well developed, + thin and + frail appearing; no acute distress Eyes: + anicteric sclerae; no corneal abnormality ENMT: Mouth: no oral mucosal abnormality and oral mucous membranes not dry Neck: normal visual inspection and trachea midline Respiratory: normal respiratory effort Auscultation: lungs clear to auscultation bilaterally Cardiovascular: Rate/Rhythm: + irregularly irregular Heart Sounds: normal S1 and normal S2 Extremities: + AV fistula; no edema Musculoskeletal: Extremities: no cyanosis and no clubbing Skin: normal turgor; no lesions Neurologic: Motor/Sensory: no tremor and no asterixis Psychiatric: Orientation: alert and oriented x 3 Results & Data ([facility]) Vital Signs (Past 12 Hours) Vital Signs Temp Pulse Pulse Pulse Resp BP BP 08/29/20 09:31 37.4 C 81 81 120/68 08/29/20 07:12 37.2 C 81 16 122/69 08/28/20 23:32 37.1 C 78 18 106/65 Pulse Ox 08/29/20 09:31 08/29/20 07:12 97 08/28/20 23:32 100 Laboratory Results Laboratory Results - last 24 hr 08/28/20 08/28/20 08/28/20 11:56 17:02 20:51 WBC RBC Hgb Hct MCV MCH MCHC RDW Std Deviation RDW Coeff of Shayy Plt Count MPV Absolute Nucleated RBC Nucleated RBC % (auto) Sodium Potassium Chloride Carbon Dioxide Anion Gap BUN Creatinine Est Cr Clr Drug Dosing Est GFR ( Amer) Est GFR (Non-Af Amer) BUN/Creatinine Ratio Glucose POC Glucose 145 H 100 H 174 H Calcium Phosphorus Albumin 08/29/20 08/29/20 08/29/20 06:34 06:34 07:49 WBC 11.43 H RBC 2.54 L Hgb 8.1 L Hct 25.7 L MCV 101.2 H MCH 31.9 MCHC 31.5 L RDW Std Deviation 61.3 H RDW Coeff of Shayy 16.7 H Plt Count 253 MPV 10.4 Absolute Nucleated RBC 0.03 H Nucleated RBC % (auto) 0.2 Sodium 135 L Potassium 5.3 H Chloride 99 Carbon Dioxide 26 Anion Gap 10.0 BUN 98 H Creatinine 6.59 H* D Est Cr Clr Drug Dosing 7.7 Est GFR ( Amer) 8.7 Est GFR (Non-Af Amer) 7.5 BUN/Creatinine Ratio 14.9 Glucose 128 H POC Glucose 136 H Calcium 7.8 L Phosphorus 6.0 H Albumin 2.2 L 08/29/20 08:07 WBC RBC Hgb Hct MCV MCH MCHC RDW Std Deviation RDW Coeff of Shayy Plt Count MPV Absolute Nucleated RBC Nucleated RBC % (auto) Sodium Potassium Chloride Carbon Dioxide Anion Gap BUN Creatinine Est Cr Clr Drug Dosing Est GFR ( Amer) Est GFR (Non-Af Amer) BUN/Creatinine Ratio Glucose POC Glucose 138 H Calcium Phosphorus Albumin PG Care Time/CCT Total # of Minutes Spent Total Time Spent with Patient: Total time spent is greater than 50% in coordination of care (as documented) at patient's floor/unit and/or counseling patient: Coding Level of Care Code 37440 Subseq Hosp Care Lvl 3 Diagnoses End stage renal failure on dialysis N18.6; Z99.2 Dementia F03.90 Hip fracture S72.009A CAD (coronary artery disease) I25.10 Coronary Disease-Associated Artery/Lesion type: [place] artery [place] vs. transplanted heart: [place] heart Associated angina: without angina Anemia D64.9 (1) CAD (coronary artery disease) Coronary Disease-Associated Artery/Lesion type: [place] artery [place] vs. transplanted heart: [place] heart Associated angina: without angina Qualified Code(s): I25.10 - Atherosclerotic heart disease of [place] coronary artery without angina pectoris
[2020-08-29] MEDS: ATORVASTATIN 40 MG TAB PO SCH (21:46)
[2020-08-29] MEDS: amLODIPine BESYLATE 5 MG TAB PO SCH (21:47)
[2020-08-30 06:30] LABS: Hematocrit (blood only) 26.2 % (42-52); Hemoglobin 8.2 g/dL (14.0-18.0); Mean Corpuscular Hemoglobin 31.9 pg (25-34); Mean Corpuscular Hgb Conc 31.3 g/dL (32-36); Mean Corpuscular Volume 101.9 fL (80-100); Mean Platelet Volume 10.3 fL (7.4-10.4); Platelet Count 320 K/uL (130-400); RDW Coefficient of Variation 16.7 % (11.5-14.5); RDW Standard Deviation 61.8 fL (36.4-46.3); Red Blood Count 2.57 M/uL (4.7-6.1); White Blood Count 13.99 K/uL (4.8-10.8)
[2020-08-30 06:55] LABS: Albumin Level 2.3 gm/dl (3.4-5.0); BUN Creatinine Ratio 13.2 (10-20); Calcium 8.4 mg/dl (8.5-10.1); Creatinine Clr Calc Pharmacy 12.7 ml/min; Est GFR (African American) 15.9; Est GFR (Non-African American) 13.8; Potassium 4.2 mmol/L (3.5-5.1)
--- NOTE | 2020-08-30 07:14 | Hospitalist Progress Note ---
Date of Service August 30, 2020 Assessment & Plan (1) Hip fracture: Miguel Mata is 75y/o M with a PMH of hypercholesterolemia, GERD, coronary artery disease, renal artery stenosis, past history of cerebral infarction, DM, hemiparesis, CHF, peripheral artery disease, history of syncope, end-stage renal disease on hemodialysis, second-degree Mobitz type I; presented following a fall sustained at his house. Hip fracture s/p R trochanteric fixation - S/P R Trochanteric Fixation on 08/23/20 - pain control with tylenol 650 mg PO Q4H PRN, Dilaudid 0.5mg IV Q4 PRN - Case management assisting on referral to [facility] - PT/OT ESRD on Hemodialysis - Nephrology consulted: continue hemodialysis MWF - Daily BMP Chest discomfort: resolved - atypical anginal symptoms, more consistent with aspiration vs. gastric distensions - Echo - No WMA. EF 40-45% - Will avoid beta-blockers as patient did not tolerate in the past due to hypotension Leukocytosis - started Ancef 2gm q8h after worsening leukocytosis -- completed 7 day course on 08/29/20 - WBC higher today but afebrile - Pro-nicko has been going down 5.27 to 3.65 - anuric - no evident skin or soft-tissue source of infection - Blood cultures x2 drawn, negative to date - penile culture from 08/22 demonstrated Klebsiella, and Enterococcus Type 2 diabetes: - Holding home meds - Glycemic consult placed Coronary artery disease: - Continue home atorvastatin 80 mg p.o. at bedtime - Continue clopidogrel 75 mg p.o. daily - Continue nitrates History of renal artery stenosis: - Stented and hypertension well-controlled on amlodipine - Continue amlodipine 2.5mg GERD: - Continue famotidine Anxiety/depression: - Continue citalopram - Continue home Keppra Constipation: - Continue docusate - Continue MiraLAX DVT ppx: SCD to thigh FEN/GI: PO fluid intake, electrolytes balanced by HD Code Status: full code Dispo: Med/Surg, awaiting prior auth [facility] Admission and Anticipated Discharge Date Admission Date: August 22, 2020 Supervising Physician Co-Signing Physician Notes Resident Physician Supervision Note: I independently interviewed and examined the patient and verified the grande history and physical, reviewed labs and image studies, discussed the case with the resident Dr. Alfonso and agree with the findings and care plan. Subjective Patient evaluated at the bedside this AM. Patient replying primarily with "yep" when asked questions, but will shake his head side to side signaling no whenever disagreeing or denying a question. Through this he denies any chest pain, SOB, abdominal pain, leg pain. Review of Systems Review of Systems: Unobtainable due to cognitive status Physical Exam Constitutional: cooperative; no acute distress Respiratory: normal respiratory effort, lungs clear to auscultation Cardiovascular: Rate/Rhythm: regular rate and regular rhythm Heart Sounds: no murmur Gastrointestinal (Abdomen): normal bowel sounds, soft, nontender, no hepatosplenomegaly Skin: Dressing clean, dry, intact. Psychiatric: Orientation: alert and oriented to person; + not oriented to place and + not oriented to time Results & Data Results & Data ([facility]) Vital Signs (Past 12 Hours) Vital Signs Temp Pulse Resp BP Pulse Ox 08/30/20 00:45 37.5 C 08/29/20 23:12 37.8 C H 80 18 131/67 94 08/29/20 21:45 85 18 95/46 L 95 Resident Activity Tracking Resident Involvement: Resident Care Provided Care Provided: Adult Hospital Medicine
[2020-08-30] MEDS: HYDROmorphone INJ 0.5 MG/0.5 ML SYR IV PRN (08:18)
[2020-08-30] MEDS: POLYETHYLENE (MIRALAX) 17 GM PACK PO SCH (08:21)
[2020-08-30] MEDS: levETIRAcetam 500 MG TAB PO SCH (08:21)
[2020-08-30] MEDS: FAMOTIDINE 40 MG TABLET PO SCH ×2 (08:21→20:17)
[2020-08-30] MEDS: DOCUSATE SODIUM 100 MG CAP PO SCH (08:22)
[2020-08-30] MEDS: NEPHROCAPS PO SCH (08:22)
[2020-08-30] MEDS: CITALOPRAM 20 MG TAB PO SCH ×2 (08:22→20:17)
[2020-08-30] MEDS: ISOSORBIDE MONO EXTENDED REL 60 MG TABCR PO SCH (08:22)
[2020-08-30] MEDS: CLOPIDOGREL BISULFATE 75 MG TAB PO SCH (08:22)
[2020-08-30 08:50] LABS: Phosphorus 3.4 mg/dl (2.5-4.9)
[2020-08-30] MEDS: INSULIN ASPART 100 UNITS/ML 3 ML PEN SC SCH ×4 (09:18→20:25)
[2020-08-30] MEDS: INSULIN GLARGINE SOLOSTAR 100 UNITS/ML 3 ML PEN SC SCH (09:22)
--- NOTE | 2020-08-30 09:54 | Nephrology Progress Note ---
Date of Service August 30, 2020 Assessment & Plan (1) End stage renal failure on dialysis: -- HD MWF -- No complications with treatment yesterday, UF goal achieved -- Qb has been at goal via catheter - AVF not in use because Miguel has not tolerated use well -- BP and volume status are acceptable -- Electrolytes normal -- Nephrocaps and renal diet -- Medications are appropriately dosed for kidney function (2) Dementia: -- Vascular dementia complicated by history of CVA with some chronic expressive aphasia -- Goals of care and treatment plan to be updated and reviewed with patient's and son (3) Hip fracture: -- POD 7 from trochanteric fixation (4) CAD (coronary artery disease): -- Cardiology consultation reviewed -- Elevated troponin and ECG changes not felt to represent true ACS -- Stable overnight (5) Anemia: -- Epogen 60705 units 08/29 with HD Admission and Anticipated Discharge Date Admission Date: August 22, 2020 Subjective No acute events overnight. Tolerated HD yesterday without complications. Net UF 1.5 L. Review of Systems Review of Systems: All systems reviewed & are unremarkable except as noted in HPI & below (Limited due to dementia and expressive aphasia) Physical Exam Constitutional: well developed, + thin and + frail appearing; no acute distress Eyes: + anicteric sclerae; no corneal abnormality ENMT: Mouth: no oral mucosal abnormality and oral mucous membranes not dry Neck: normal visual inspection and trachea midline Respiratory: normal respiratory effort Auscultation: lungs clear to auscultation bilaterally Cardiovascular: Rate/Rhythm: + irregularly irregular Heart Sounds: normal S1 and normal S2 Extremities: + AV fistula; no edema Musculoskeletal: Extremities: no cyanosis and no clubbing Skin: normal turgor; no lesions Neurologic: Motor/Sensory: no tremor and no asterixis Psychiatric: Orientation: alert and oriented x 3 Results & Data ([facility]) Vital Signs (Past 12 Hours) Vital Signs Temp Pulse Resp BP Pulse Ox 08/30/20 07:23 37.4 C 86 16 148/66 H 95 08/30/20 00:45 37.5 C 08/29/20 23:12 37.8 C H 80 18 131/67 94 Laboratory Results Laboratory Results - last 24 hr 08/29/20 08/29/20 08/29/20 13:39 17:15 21:06 WBC RBC Hgb Hct MCV MCH MCHC RDW Std Deviation RDW Coeff of Shayy Plt Count MPV Sodium Potassium Chloride Carbon Dioxide Anion Gap BUN Creatinine Est Cr Clr Drug Dosing Est GFR ( Amer) Est GFR (Non-Af Amer) BUN/Creatinine Ratio Glucose POC Glucose 151 H 126 H 110 H Calcium Phosphorus Albumin 08/30/20 08/30/20 08/30/20 06:06 06:06 07:53 WBC 13.99 H RBC 2.57 L Hgb 8.2 L Hct 26.2 L MCV 101.9 H MCH 31.9 MCHC 31.3 L RDW Std Deviation 61.8 H RDW Coeff of Shayy 16.7 H Plt Count 320 MPV 10.3 Sodium 136 Potassium 4.2 D Chloride 101 Carbon Dioxide 27 Anion Gap 8.0 BUN 53 H Creatinine 3.99 H D Est Cr Clr Drug Dosing 12.7 Est GFR ( Amer) 15.9 Est GFR (Non-Af Amer) 13.8 BUN/Creatinine Ratio 13.2 Glucose 117 H POC Glucose 103 H Calcium 8.4 L Phosphorus 3.4 D Albumin 2.3 L PG Care Time/CCT Total # of Minutes Spent Total Time Spent with Patient: Total time spent is greater than 50% in coordination of care (as documented) at patient's floor/unit and/or counseling patient: Coding Level of Care Code 35116 Subseq Hosp Care Lvl 3 Diagnoses End stage renal failure on dialysis N18.6; Z99.2 Dementia F03.90 Hip fracture S72.009A CAD (coronary artery disease) I25.10 Coronary Disease-Associated Artery/Lesion type: [place] artery [place] vs. transplanted heart: [place] heart Associated angina: without angina Anemia D64.9 (1) CAD (coronary artery disease) Coronary Disease-Associated Artery/Lesion type: [place] artery [place] vs. transplanted heart: [place] heart Associated angina: without angina Qualified Code(s): I25.10 - Atherosclerotic heart disease of [place] coronary artery without angina pectoris
[2020-08-30 14:21] LABS: Basophils # (auto) 0.03 K/uL (0-0.2); Basophils % (auto) 0.2 %; Eosinophils # (auto) 0.24 K/uL (0-0.5); Eosinophils % (auto) 1.8 %; Hematocrit (blood only) 25.8 % (42-52); Immature Granulocytes # (auto) 0.39 K/uL (0.00-0.02); Lymphocytes # (auto) 1.63 K/uL (1.2-3.4); Lymphocytes % (auto) 12.4 %; Mean Corpuscular Hemoglobin 31.6 pg (25-34); Mean Platelet Volume 10.2 fL (7.4-10.4); Monocytes # (auto) 2.52 K/uL (0.11-0.59); Monocytes % (auto) 19.2 %; Neutrophils # (auto) 8.29 K/uL (1.4-6.5); Neutrophils % (auto) 63.4 %; Platelet Count 323 K/uL (130-400); RDW Coefficient of Variation 16.7 % (11.5-14.5); RDW Standard Deviation 61.7 fL (36.4-46.3); Red Blood Count 2.53 M/uL (4.7-6.1)
[2020-08-30] MEDS: ATORVASTATIN 40 MG TAB PO SCH (20:17)
[2020-08-30] MEDS: amLODIPine BESYLATE 5 MG TAB PO SCH (20:17)
--- NOTE | 2020-08-31 06:52 | Hospitalist Progress Note ---
Date of Service August 31, 2020 Assessment & Plan (1) Hip fracture: Miguel Mata is 75y/o M with a PMH of hypercholesterolemia, GERD, coronary artery disease, renal artery stenosis, past history of cerebral infarction, DM, hemiparesis, CHF, peripheral artery disease, history of syncope, end-stage renal disease on hemodialysis, second-degree Mobitz type I; presented following a fall sustained at his house. Hip fracture s/p R trochanteric fixation - S/P R Trochanteric Fixation on 08/23/20 - pain control with tylenol 650 mg PO Q4H PRN, Dilaudid 0.5mg IV Q4 PRN - PT/OT ESRD on Hemodialysis - Nephrology consulted: continue hemodialysis MWF - Dialysis today with removal of 0.4L - Daily BMP Chest discomfort: resolved - atypical anginal symptoms, more consistent with aspiration vs. gastric distensions - Echo - No WMA. EF 40-45% - Will avoid beta-blockers as patient did not tolerate in the past due to hypotension Leukocytosis - started Ancef 2gm q8h after worsening leukocytosis -- completed 7 day course on 08/29/20 - WBC consistent with prior 2 days, continues to be afebrile. - Pro-nicko has been going down 5.27 to 3.65 - anuric - no evident skin or soft-tissue source of infection - Blood cultures x2 drawn, negative to date - penile culture from 08/22 demonstrated Klebsiella, and Enterococcus Type 2 diabetes: - Holding home meds - Glycemic consult placed Coronary artery disease: - Continue home atorvastatin 80 mg p.o. at bedtime - Continue clopidogrel 75 mg p.o. daily - Continue nitrates History of renal artery stenosis: - Stented and hypertension well-controlled on amlodipine - Continue amlodipine 2.5mg GERD: - Continue famotidine Anxiety/depression: - Continue citalopram - Continue home Keppra Constipation: - Continue docusate - Continue MiraLAX DVT ppx: SCD to thigh FEN/GI: PO fluid intake, electrolytes balanced by HD Code Status: full code Dispo: Med/Surg, Denied for [facility], likely SNF placement as above. Admission and Anticipated Discharge Date Admission Date: August 22, 2020 Supervising Physician Co-Signing Physician Notes Resident Physician Supervision Note: I independently interviewed and examined the patient and verified the grande history and physical, reviewed labs and image studies, discussed the case with the resident Dr. Alfonso and agree with the findings and care plan. Subjective Patient evaluated while laying in bed at hemodialysis this AM. Patient with significant expressive aphasia this AM, communicating primarily with "Yeah's and Yup's" and nodding of his head. Patient noting that he is currently not in any pain, without chest pain, chest pressure, shortness of breath, abdominal pain. Review of Systems Review of Systems: Unobtainable due to cognitive status Physical Exam Constitutional: cooperative; no acute distress Respiratory: normal respiratory effort, lungs clear to auscultation Cardiovascular: Rate/Rhythm: regular rate and regular rhythm Heart Sounds: no murmur Gastrointestinal (Abdomen): normal bowel sounds, soft, nontender, no hepatosplenomegaly Psychiatric: Orientation: alert and oriented to person; + not oriented to place and + not oriented to time Results & Data Results & Data ([facility]) Vital Signs (Past 12 Hours) Vital Signs Temp Pulse Resp BP Pulse Ox 08/30/20 22:26 37.3 C 72 16 139/74 96 08/30/20 20:14 74 113/64 Resident Activity Tracking Resident Involvement: Resident Care Provided Care Provided: Adult Hospital Medicine
[2020-08-31 08:09] LABS: Hematocrit (blood only) 25.8 % (42-52); Hemoglobin 8.2 g/dL (14.0-18.0); Mean Corpuscular Hemoglobin 32.4 pg (25-34); Mean Corpuscular Hgb Conc 31.8 g/dL (32-36); Mean Platelet Volume 10.4 fL (7.4-10.4); Nucleated RBC # (auto) 0.04 K/uL (0-0); Nucleated RBC % (auto) 0.3 %; Platelet Count 372 K/uL (130-400); RDW Coefficient of Variation 16.7 % (11.5-14.5); RDW Standard Deviation 61.7 fL (36.4-46.3); Red Blood Count 2.53 M/uL (4.7-6.1); White Blood Count 13.89 K/uL (4.8-10.8)
[2020-08-31] MEDS: CLOPIDOGREL BISULFATE 75 MG TAB PO SCH (08:15)
[2020-08-31] MEDS: ISOSORBIDE MONO EXTENDED REL 60 MG TABCR PO SCH (08:15)
[2020-08-31] MEDS: POLYETHYLENE (MIRALAX) 17 GM PACK PO SCH (08:15)
[2020-08-31] MEDS: CITALOPRAM 20 MG TAB PO SCH ×2 (08:15→20:56)
[2020-08-31] MEDS: NEPHROCAPS PO SCH (08:15)
[2020-08-31] MEDS: FAMOTIDINE 40 MG TABLET PO SCH ×2 (08:15→20:56)
[2020-08-31] MEDS: DOCUSATE SODIUM 100 MG CAP PO SCH (08:15)
[2020-08-31] MEDS: CALCITRIOL 0.25 MCG CAPSULE PO SCH (08:15)
[2020-08-31] MEDS: INSULIN ASPART 100 UNITS/ML 3 ML PEN SC SCH ×4 (08:17→21:51)
[2020-08-31] MEDS: INSULIN GLARGINE SOLOSTAR 100 UNITS/ML 3 ML PEN SC SCH (08:52)
--- NOTE | 2020-08-31 09:15 | Pharmacy Report ---
Pharmacy Glycemic Short Note 2 - Date of Service August 31, 2020 - Glycemic Short BSG Results (Last 24 hours): 08/30/20 08/30/20 08/30/20 12:05 17:06 20:24 POC Glucose 134 H 110 H 149 H 08/31/20 07:52 POC Glucose 112 H OUTPATIENT ANTIDIABETIC REGIMEN: * Glipizide ASSESSMENT: 08/31 * BSGs well controlled yesterday of 103, 134, 110, 149 mg/dL * Received 10 units of insulin yesterday (6 units of Lantus and 4 units of prandial/correctional Novolog) * Fasting BSG of 112 mg/dL - continue current Lantus * Hemodialysis scheduled for today 08/22 * Mr Mata is a 75 y/o M with a PMH of T2DM on one oral medication. Patient's admitting BSG was 134 mg/dL this morning. BSG at noon was 155 mg/dL. * Start Novolog Q6 hours with CF of 35 mg/dL (in-between weight-based stress of 2 and 3). Will not add carbohydrate ratio at this point as uncertain when patient last took his glipizide (patient has dementia so is unable to provide any additional information). * Monitor closely and will add Lantus and carbohydrate ratio once diet is ordered. PLAN FOR INPATIENT GLYCEMIC CONTROL: * Hold outpatient oral diabetes medications * Basal insulin- continue * Lantus 6 units SQ QAM * Bolus insulin: continue * NovoLog per scale ACHS or Q6hrs while NPO * Goal Range: Low 110 mg/dL - High 140 mg/dL * Correction Factor: 35 mg/dL/unit * Nutritional / Prandial insulin per carb ratio of 1 unit per 10 grams CHO consumed PLAN FOR DISCHARGE: * Continue on oral Glipizide on discharge as long as patient is not reporting hypoglycemia at home.
[2020-08-31 09:19] LABS: Albumin Level 2.2 gm/dl (3.4-5.0); BUN Creatinine Ratio 14.2 (10-20); Calcium 8.5 mg/dl (8.5-10.1); Est GFR (African American) 11.1; Est GFR (Non-African American) 9.6; Potassium 4.9 mmol/L (3.5-5.1)
--- NOTE | 2020-08-31 11:31 | Nephrology Progress Note ---
Date of Service August 31, 2020 Assessment & Plan (1) End stage renal failure on dialysis: -- HD MWF -- Orders for HD entered into the EMR and reviewed with HD nurse -- UF goal 0.5-1 L -- Qb has been at goal via catheter - AVF not in use because Miguel has not tolerated use well -- BP and volume status are acceptable -- Electrolytes controlled -- Nephrocaps and renal diet -- Medications are appropriately dosed for kidney function (2) Dementia: -- Vascular dementia complicated by history of CVA with some chronic expressive aphasia -- Goals of care and treatment plan to be updated and reviewed with patient's and son (3) Hip fracture: -- POD 8 from trochanteric fixation -- Placement for rehab post discharge pending (4) CAD (coronary artery disease): (5) Anemia: -- Epogen 26293 units 08/29 with HD Admission and Anticipated Discharge Date Admission Date: August 22, 2020 Subjective No acute events overnight. Miguel was seen and evaluated prior to and during hemodialysis. He was tolerating HD well with some intradialytic hypotension. Review of Systems Review of Systems: All systems reviewed & are unremarkable except as noted in HPI & below Physical Exam Constitutional: well developed, + thin and + frail appearing; no acute distress Eyes: + anicteric sclerae; no corneal abnormality ENMT: Mouth: no oral mucosal abnormality and oral mucous membranes not dry Neck: normal visual inspection and trachea midline Respiratory: normal respiratory effort Auscultation: lungs clear to auscultation bilaterally Cardiovascular: Rate/Rhythm: + irregularly irregular Heart Sounds: normal S1 and normal S2 Extremities: + AV fistula; no edema Musculoskeletal: Extremities: no cyanosis and no clubbing Skin: normal turgor; no lesions Neurologic: Motor/Sensory: no tremor and no asterixis Psychiatric: Orientation: alert and oriented x 3 Results & Data ([facility]) Vital Signs (Past 12 Hours) Vital Signs Temp Pulse Pulse Pulse Resp BP BP 08/31/20 11:25 80 97/53 L 08/31/20 11:00 81 118/58 L 08/31/20 10:45 78 90/49 L 08/31/20 10:40 81 74/58 L 08/31/20 10:20 83 82/47 L 08/31/20 10:00 84 92/46 L 12/16/20 09:43 82 96/50 L 12/16/20 09:20 78 103/55 L 08/31/20 09:00 76 110/56 L 08/31/20 08:50 37.0 C 76 08/31/20 07:06 37.1 C 76 14 121/73 Pulse Ox 08/31/20 11:25 08/31/20 11:00 08/31/20 10:45 08/31/20 10:40 08/31/20 10:20 08/31/20 10:00 08/31/20 09:43 08/31/20 09:20 08/31/20 09:00 08/31/20 08:50 08/31/20 07:06 96 Laboratory Results Laboratory Results - last 24 hr 08/30/20 08/30/20 08/30/20 12:05 14:03 17:06 WBC 13.10 H RBC 2.53 L Hgb 8.0 L Hct 25.8 L MCV 102.0 H MCH 31.6 MCHC 31.0 L RDW Std Deviation 61.7 H RDW Coeff of Shayy 16.7 H Plt Count 323 MPV 10.2 Immature Gran % (Auto) 3.0 Neut % (Auto) 63.4 Lymph % (Auto) 12.4 [place] % (Auto) 19.2 Eos % (Auto) 1.8 Baso % (Auto) 0.2 Neut # (Auto) 8.29 H Lymph # (Auto) 1.63 [place] # (Auto) 2.52 H Eos # (Auto) 0.24 Baso # (Auto) 0.03 Immature Gran # (Auto) 0.39 H Absolute Nucleated RBC Nucleated RBC % (auto) Sodium Potassium Chloride Carbon Dioxide Anion Gap BUN Creatinine Est Cr Clr Drug Dosing Est GFR ( Amer) Est GFR (Non-Af Amer) BUN/Creatinine Ratio Glucose POC Glucose 134 H 110 H Calcium Phosphorus Albumin 08/30/20 08/31/20 08/31/20 20:24 07:52 07:55 WBC RBC Hgb Hct MCV MCH MCHC RDW Std Deviation RDW Coeff of Shayy Plt Count MPV Immature Gran % (Auto) Neut % (Auto) Lymph % (Auto) [place] % (Auto) Eos % (Auto) Baso % (Auto) Neut # (Auto) Lymph # (Auto) [place] # (Auto) Eos # (Auto) Baso # (Auto) Immature Gran # (Auto) Absolute Nucleated RBC Nucleated RBC % (auto) Sodium 136 Potassium 4.9 D Chloride 101 Carbon Dioxide 24 Anion Gap 12.0 H BUN 76 H Creatinine 5.39 H* D Est Cr Clr Drug Dosing 9.0 Est GFR ( Amer) 11.1 Est GFR (Non-Af Amer) 9.6 BUN/Creatinine Ratio 14.2 Glucose 105 H POC Glucose 149 H 112 H Calcium 8.5 Phosphorus 5.0 H D Albumin 2.2 L 08/31/20 07:55 WBC 13.89 H RBC 2.53 L Hgb 8.2 L Hct 25.8 L MCV 102.0 H MCH 32.4 MCHC 31.8 L RDW Std Deviation 61.7 H RDW Coeff of Shayy 16.7 H Plt Count 372 MPV 10.4 Immature Gran % (Auto) Neut % (Auto) Lymph % (Auto) [place] % (Auto) Eos % (Auto) Baso % (Auto) Neut # (Auto) Lymph # (Auto) [place] # (Auto) Eos # (Auto) Baso # (Auto) Immature Gran # (Auto) Absolute Nucleated RBC 0.04 H Nucleated RBC % (auto) 0.3 Sodium Potassium Chloride Carbon Dioxide Anion Gap BUN Creatinine Est Cr Clr Drug Dosing Est GFR ( Amer) Est GFR (Non-Af Amer) BUN/Creatinine Ratio Glucose POC Glucose Calcium Phosphorus Albumin PG Care Time/CCT Total # of Minutes Spent Total Time Spent with Patient: Total time spent is greater than 50% in coordination of care (as documented) at patient's floor/unit and/or counseling patient: Coding Level of Care Code 41604 Subseq Hosp Care Lvl 3 Diagnoses End stage renal failure on dialysis N18.6; Z99.2 Dementia F03.90 Hip fracture S72.009A CAD (coronary artery disease) I25.10 Coronary Disease-Associated Artery/Lesion type: [place] artery [place] vs. transplanted heart: [place] heart Associated angina: without angina Anemia D64.9 (1) CAD (coronary artery disease) Coronary Disease-Associated Artery/Lesion type: [place] artery [place] vs. transplanted heart: [place] heart Associated angina: without angina Qualified Code(s): I25.10 - Atherosclerotic heart disease of [place] coronary artery without angina pectoris
[2020-08-31] MEDS: ATORVASTATIN 40 MG TAB PO SCH (20:56)
[2020-08-31] MEDS: amLODIPine BESYLATE 5 MG TAB PO SCH (20:57)
[2020-09-01 06:36] LABS: Basophils # (auto) 0.02 K/uL (0-0.2); Basophils % (auto) 0.1 %; Eosinophils # (auto) 0.19 K/uL (0-0.5); Eosinophils % (auto) 1.4 %; Hematocrit (blood only) 26.7 % (42-52); Hemoglobin 8.1 g/dL (14.0-18.0); Immature Granulocytes # (auto) 0.24 K/uL (0.00-0.02); Immature Granulocytes % (auto) 1.8 %; Lymphocytes # (auto) 2.07 K/uL (1.2-3.4); Lymphocytes % (auto) 15.2 %; Mean Corpuscular Hemoglobin 31.4 pg (25-34); Mean Corpuscular Hgb Conc 30.3 g/dL (32-36); Mean Corpuscular Volume 103.5 fL (80-100); Mean Platelet Volume 10.5 fL (7.4-10.4); Monocytes # (auto) 1.88 K/uL (0.11-0.59); Monocytes % (auto) 13.8 %; Neutrophils # (auto) 9.23 K/uL (1.4-6.5); Neutrophils % (auto) 67.7 %; Nucleated RBC # (auto) 0.09 K/uL (0-0); Nucleated RBC % (auto) 0.6 %; Platelet Count 413 K/uL (130-400); RDW Coefficient of Variation 17.2 % (11.5-14.5); RDW Standard Deviation 64.1 fL (36.4-46.3); Red Blood Count 2.58 M/uL (4.7-6.1); White Blood Count 13.63 K/uL (4.8-10.8)
--- NOTE | 2020-09-01 07:03 | Hospitalist Progress Note ---
Date of Service September 01, 2020 Assessment & Plan (1) Hip fracture: Miguel Mata is 75y/o M with a PMH of hypercholesterolemia, GERD, coronary artery disease, renal artery stenosis, past history of cerebral infarction, DM, hemiparesis, CHF, peripheral artery disease, history of syncope, end-stage renal disease on hemodialysis, second-degree Mobitz type I; presented following a fall sustained at his house. Hip fracture s/p R trochanteric fixation - S/P R Trochanteric Fixation on 08/23/20 - pain control with tylenol 650 mg PO Q4H PRN, Dilaudid 0.5mg IV Q4 PRN - PT/OT - Accepted to [facility] for SNF placement tomorrow - COVID-19 test pending, ordered per [facility] request prior to discharge. ESRD on Hemodialysis - Nephrology consulted: continue hemodialysis MWF - Daily BMP Chest discomfort: resolved - atypical anginal symptoms, more consistent with aspiration vs. gastric distensions - Echo - No WMA. EF 40-45% - Will avoid beta-blockers as patient did not tolerate in the past due to hypotension Leukocytosis - started Ancef 2gm q8h after worsening leukocytosis -- completed 7 day course on 08/29/20 - WBC consistent with prior 3 days, continues to be afebrile. - Pro-nicko has been going down 5.27 to 3.65 - anuric - no evident skin or soft-tissue source of infection - Blood cultures x2 drawn, negative to date - penile culture from 08/22 demonstrated Klebsiella, and Enterococcus Type 2 diabetes: - Holding home meds - Glycemic consult placed Coronary artery disease: - Continue home atorvastatin 80 mg p.o. at bedtime - Continue clopidogrel 75 mg p.o. daily - Continue nitrates History of renal artery stenosis: - Stented and hypertension well-controlled on amlodipine - Continue amlodipine 2.5mg GERD: - Continue famotidine Anxiety/depression: - Continue citalopram - Continue home Keppra Constipation: - Continue docusate - Continue MiraLAX DVT ppx: SCD to thigh FEN/GI: PO fluid intake, electrolytes balanced by HD Code Status: full code Dispo: Med/Surg, Discharge to [facility] tomorrow Admission and Anticipated Discharge Date Admission Date: August 22, 2020 Supervising Physician Co-Signing Physician Notes Resident Physician Supervision Note: I independently interviewed and examined the patient and verified the grande history and physical, reviewed labs and image studies, discussed the case with the resident Dr. Alfonso and agree with the findings and care plan. Subjective Patient evaluated at the bedside this morning. Stated he was feeling well, thought difficult to assess as he was fairly confused. Denied any chest pain, difficult with breathing, abdominal pain, or leg pain. Review of Systems Review of Systems: Unobtainable due to cognitive status Physical Exam Constitutional: cooperative; no acute distress Respiratory: normal respiratory effort, lungs clear to auscultation Cardiovascular: Rate/Rhythm: regular rate and regular rhythm Heart Sounds: no murmur Gastrointestinal (Abdomen): normal bowel sounds, soft, nontender, no hepatosplenomegaly Psychiatric: Orientation: alert and oriented to person; + not oriented to place and + not oriented to time Results & Data Results & Data ([facility]) Vital Signs (Past 12 Hours) Vital Signs Temp Pulse Resp BP Pulse Ox 08/31/20 23:13 37.4 C 77 14 102/60 97 Resident Activity Tracking Resident Involvement: Resident Care Provided Care Provided: Adult Hospital Medicine
[2020-09-01 07:13] LABS: BUN Creatinine Ratio 13.4 (10-20); Calcium 8.2 mg/dl (8.5-10.1); Creatinine Clr Calc Pharmacy 14.2 ml/min; Est GFR (African American) 17.7; Est GFR (Non-African American) 15.3; Potassium 4.2 mmol/L (3.5-5.1)
[2020-09-01] MEDS: INSULIN ASPART 100 UNITS/ML 3 ML PEN SC SCH ×4 (09:19→22:07)
[2020-09-01] MEDS: INSULIN GLARGINE SOLOSTAR 100 UNITS/ML 3 ML PEN SC SCH (09:20)
[2020-09-01] MEDS: CLOPIDOGREL BISULFATE 75 MG TAB PO SCH (09:22)
[2020-09-01] MEDS: DOCUSATE SODIUM 100 MG CAP PO SCH (09:23)
[2020-09-01] MEDS: POLYETHYLENE (MIRALAX) 17 GM PACK PO SCH (09:23)
[2020-09-01] MEDS: NEPHROCAPS PO SCH (09:23)
[2020-09-01] MEDS: levETIRAcetam 500 MG TAB PO SCH (09:23)
[2020-09-01] MEDS: ISOSORBIDE MONO EXTENDED REL 60 MG TABCR PO SCH (09:23)
[2020-09-01] MEDS: FAMOTIDINE 40 MG TABLET PO SCH ×2 (09:24→20:45)
[2020-09-01] MEDS: CITALOPRAM 20 MG TAB PO SCH ×2 (09:24→20:42)
--- NOTE | 2020-09-01 09:58 | Pharmacy Report ---
Pharmacy Glycemic Sign Off Nt - Date of Service September 01, 2020 - Assessment & Plan ASSESSMENT: * Pharmacy was consulted by Dr Albania Melendrez on 08/22/20 for glycemic control and to write orders per [facility] inpatient glycemic control protocol. * Major changes made by pharmacy to antidiabetic regimen include: * holding outpatient glipizide and starting SQ basal bolus insulin regimen for inpatient use * Patient has been receiving/requiring 15-20 units of insulin per day for adequate glycemic control * BSGs ranging 84 -146 mg/dl * Regimen has only required minor adjustments over the past 48hrs to achieve this level of control * Do not anticipate further changes in patient status that would quickly deteriorate glycemic control (i.e. patient to be NPO for upcoming procedure, steroids tapering, starting tube feedings, etc). * Please see recommendations for outpatient antidiabetic regimen below. PLAN FOR INPATIENT GLYCEMIC CONTROL: No changes needed to current regimen. * Continue basal insulin with Lantus 6 units SQ daily * Continue NovoLog per scale ACHS/Q6hrs while NPO * Goal range = 110 140 mg/dl * CF = 35 mg/dl/unit * CR = 1 unit for ever 10 g CHO consumed * Pharmacy is signing off of glycemic consult and will no longer be making adjustments to inpatient regimen. Please feel free to re-consult if needed. Thank you. DISCHARGE RECOMMENDATIONS: * A1c = n/a * this result is likely somewhat unreliable in ESRD patients d/t interactions between the A1c analyzing technique and high levels of urea in ESRD, reduced RBC life span, iron deficiency anemia, and EPO administration. HbA1c > 7.5% in ESRD patient may overestimate the extent of hyperglycemia in ESRD patients. * Reasonable to continue outpatient glipizide as long at patient has consistent PO intake and is not experiencing hypoglycemia.
--- NOTE | 2020-09-01 16:16 | Nephrology Progress Note ---
Date of Service September 01, 2020 Assessment & Plan (1) End stage renal failure on dialysis: -- HD MWF -- BP and volume status are acceptable -- Electrolytes controlled -- Nephrocaps and renal diet -- Medications are appropriately dosed for kidney function (2) Dementia: -- Vascular dementia complicated by history of CVA with some chronic expressive aphasia -- Goals of care and treatment plan to be updated and reviewed with patient's and son (3) Hip fracture: -- POD 9 from trochanteric fixation -- Placement for rehab post discharge pending (4) CAD (coronary artery disease): (5) Anemia: -- Epogen 16331 units 08/29 with HD Admission and Anticipated Discharge Date Admission Date: August 22, 2020 Subjective No acute events overnight. Tolerated HD yesterday with some intradialytic hypotension. Miguel was feeling well this morning during my assessment. Review of Systems Review of Systems: All systems reviewed & are unremarkable except as noted in Subjective Physical Exam Constitutional: well developed, + thin and + frail appearing; no acute distre ss Eyes: + anicteric sclerae; no corneal abnormality ENMT: Mouth: no oral mucosal abnormality and oral mucous membranes not dry Neck: normal visual inspection and trachea midline Respiratory: normal respiratory effort Auscultation: lungs clear to auscultation bilaterally Cardiovascular: Rate/Rhythm: + irregularly irregular Heart Sounds: normal S1 and normal S2 Extremities: + AV fistula; no edema Musculoskeletal: Extremities: no cyanosis and no clubbing Skin: normal turgor; no lesions Neurologic: Motor/Sensory: no tremor and no asterixis Psychiatric: Orientation: alert and oriented x 3 Results & Data ([facility]) Vital Signs (Past 12 Hours) Vital Signs Temp Pulse Resp BP Pulse Ox 09/01/20 15:30 36.9 C 81 14 131/72 100 09/01/20 07:25 36.7 C 88 97 H 151/74 H 97 Laboratory Results Laboratory Results - last 24 hr 08/31/20 08/31/20 09/01/20 16:58 20:31 06:06 WBC 13.63 H RBC 2.58 L Hgb 8.1 L Hct 26.7 L MCV 103.5 H MCH 31.4 MCHC 30.3 L RDW Std Deviation 64.1 H RDW Coeff of Shayy 17.2 H Plt Count 413 H MPV 10.5 H Immature Gran % (Auto) 1.8 Neut % (Auto) 67.7 Lymph % (Auto) 15.2 [place] % (Auto) 13.8 Eos % (Auto) 1.4 Baso % (Auto) 0.1 Neut # (Auto) 9.23 H Lymph # (Auto) 2.07 [place] # (Auto) 1.88 H Eos # (Auto) 0.19 Baso # (Auto) 0.02 Immature Gran # (Auto) 0.24 H Absolute Nucleated RBC 0.09 H Nucleated RBC % (auto) 0.6 Sodium Potassium Chloride Carbon Dioxide Anion Gap BUN Creatinine Est Cr Clr Drug Dosing Est GFR ( Amer) Est GFR (Non-Af Amer) BUN/Creatinine Ratio Glucose POC Glucose 117 H 84 Calcium 09/01/20 09/01/20 09/01/20 06:06 08:19 11:46 WBC RBC Hgb Hct MCV MCH MCHC RDW Std Deviation RDW Coeff of Shayy Plt Count MPV Immature Gran % (Auto) Neut % (Auto) Lymph % (Auto) [place] % (Auto) Eos % (Auto) Baso % (Auto) Neut # (Auto) Lymph # (Auto) [place] # (Auto) Eos # (Auto) Baso # (Auto) Immature Gran # (Auto) Absolute Nucleated RBC Nucleated RBC % (auto) Sodium 138 Potassium 4.2 Chloride 103 Carbon Dioxide 29 Anion Gap 6.0 BUN 49 H Creatinine 3.66 H D Est Cr Clr Drug Dosing 14.2 Est GFR ( Amer) 17.7 Est GFR (Non-Af Amer) 15.3 BUN/Creatinine Ratio 13.4 Glucose 111 H POC Glucose 118 H 173 H Calcium 8.2 L PG Care Time/CCT Total # of Minutes Spent Total Time Spent with Patient: Total time spent is greater than 50% in coordination of care (as documented) at patient's floor/unit and/or counseling patient: Coding Level of Care Code 98777 Subseq Hosp Care Lvl 3 Diagnoses End stage renal failure on dialysis N18.6; Z99.2 Dementia F03.90 Hip fracture S72.009A CAD (coronary artery disease) I25.10 Coronary Disease-Associated Artery/Lesion type: [place] artery [place] vs. transplanted heart: [place] heart Associated angina: without angina Anemia D64.9 (1) CAD (coronary artery disease) Coronary Disease-Associated Artery/Lesion type: [place] artery [place] vs. transplanted heart: [place] heart Associated angina: without angina Qualified Code(s): I25.10 - Atherosclerotic heart disease of [place] coronary artery without angina pectoris
[2020-09-01] MEDS: ATORVASTATIN 40 MG TAB PO SCH (20:43)
[2020-09-01] MEDS: amLODIPine BESYLATE 5 MG TAB PO SCH (20:44)
[2020-09-02] MEDS: ACETAMINOPHEN 325 MG TAB PO PRN (03:02)
--- NOTE | 2020-09-02 06:55 | Discharge Summary ---
Date of Service September 02, 2020 Admission HPI Per Admitting Provider History severely limited by patient's dementia, primary team will need to obtain collateral when able. Briefly the patient is a 75-year-old male with a past medical history of hypercholesterolemia, GERD, coronary artery disease, renal artery stenosis, past history of cerebral infarction, DM, hemiparesis, CHF, peripheral artery disease, history of syncope, end-stage renal disease on hemodialysis, second-degree Mob thai type I presents this evening by ambulance status post fall sustained at his house. The patient was not alert or oriented at all, was barely able to communicate, only really referencing pain and pointing to where his pain was. Per report from emergency room staff, the patient was in his normal state of health. He did endorse some dizziness earlier today. His heard a fall, and came running from another room to find him on the floor clutching his hip and indicating that he had some elbow pain. She contacted the ambulance to transport him to [facility]. Upon arrival labs were obtained demonstrating a white count of 12.64, with a neutrophil predominance, PT/INR within normal limits, Chem-7 indicating a creatinine of 8.11 and a glucose of 134. Imaging was obtained showing a hip fracture, elbow imaging pending final read, chest x-ray demonstrating cardiomegaly. The primary team was contacted for admission. Admission Exam Per Admitting Provider General: Confused man in no acute distress, lying in bed, intermittently complaining of hip pain. HEENT: Normocephalic atraumatic Neck: Normal to visual section, trachea midline Cardiac: Regular rhythm, regular rate, normal S1, normal S2, did not appreciate any significant murmurs rubs or gallops, 1+ pedal edema bilaterally, no calf tenderness Respiratory: Clear to auscultation bilaterally with symmetrical chest expansion bilaterally, I did not appreciate significant wheezes, rales, rhonchi GI: Soft, nontender, nondistended, bowel sounds present in all 4 quadrants Neuro: Alert and oriented x0, unable to follow commands Psych: Calm and attempted to cooperate Principal Diagnosis R Hip Fracture Discharge Exam Constitutional cooperative; no acute distress Respiratory normal respiratory effort, lungs clear to auscultation Cardiovascular Rate/Rhythm: regular rate and regular rhythm Heart Sounds: no murmur Gastrointestinal (Abdomen) normal bowel sounds, soft, nontender, no hepatosplenomegaly Musculoskeletal Dressing clean, dry, intact. Psychiatric Orientation: alert and oriented to person; + not oriented to place and + not oriented to time Discharge Data Allergies Allergy/AdvReac Type Severity Reaction Status Date / Time adhesive Allergy Unknown BLISTERING Verified 08/22/20 03:30 OF SKIN latex Allergy Unknown Rash Verified 08/22/20 03:30 Consultations 08/22/20 04:45 ED Decision to Admit Stat 08/22/20 05:28 Consult Nephrology Routine 08/22/20 13:01 Consult Orthopedic Surgery Routine 08/23/20 07:41 Consult Cardiology Routine 08/23/20 19:53 Consult Case Management - Discharge Planning Routine Procedures Performed Operation Date: 08/23/20 08:40 Actual Procedures p Right Trochanteric Femoral Nail Synthes(Right) - Joss Young MD Ordered Studies 08/22/20 09:54 CT head/brain wo con Stat 08/22/20 20:12 CT hip RT wo con Urgent 08/23/20 13:00 FL fluoroscopy <1hr Routine FL hip RT 2-3V Routine 08/23/20 15:46 US guide vascular access Stat Hospital Course (1) Hip fracture: Miguel Mata is 75y/o M with a PMH of hypercholesterolemia, GERD, coronary artery disease, renal artery stenosis, past history of cerebral infarction, DM, hemiparesis, CHF, peripheral artery disease, history of syncope, end-stage renal disease on hemodialysis, second-degree Mobitz type I; presented following a fall sustained at his house. Hip fracture s/p R trochanteric fixation - S/P R Trochanteric Fixation on 08/23/20 - no pain med need to continue upon discharge to [facility] - Continued with daily dressing changes - Staple removal at week 2-3 postop per Ortho - Repeat XR no later than 6 weeks post-op per Ortho - Coordination with outpatient office for telehealth care as needed. - PT/OT - continue at [facility] - COVID-19 test negative, ordered per [facility] request prior to discharge. - Transfer to [facility] today 09/02/20. ESRD on Hemodialysis - Continued Hemodialysis M/W/F - Last received dialysis in the hospital on 09/02/20 prior to discharge to [facility] - Continued supplements as noted in the medications list. Chest discomfort: resolved - atypical anginal symptoms, more consistent with aspiration vs. gastric distensions - Echo - No WMA. EF 40-45% - Will avoid beta-blockers as patient did not tolerate in the past due to hypotension - Resolved, no further incidents of chest discomfort were noted during this hospital stay. - Continued home Clopidogrel Leukocytosis - started Ancef 2gm q8h after worsening leukocytosis -- completed 7 day course on 08/29/20 - WBC has been stable, low suspicion for ongoing infection. - Pro-nicko downtrended 5.27 to 3.65 - anuric - no evident skin or soft-tissue source of infection - Blood cultures x2 drawn, negative to date - penile culture from 08/22 demonstrated Klebsiella, and Enterococcus Type 2 diabetes: - Resumed home Glipizide on discharge. - SSI and basal insulin while inpatient Coronary artery disease: - Continued home atorvastatin 80 mg p.o. at bedtime - Continued clopidogrel 75 mg p.o. daily - Continued nitrates as listed in med list History of renal artery stenosis: - Stented and hypertension well-controlled on amlodipine - Continued amlodipine 2.5mg GERD: - Continued famotidine Anxiety/depression: - Continued citalopram - Continued home Keppra Constipation: - Continued docusate - Continued MiraLAX Code Status: full code Dispo: Discharge to [facility] today DVT proph - Per ortho -- On chronic plavix. SCD when not ambulating. Total Time Total Time Spent Total Time Spent (In Minutes): see attending attestation Discharge Plan Discharge Items Patient Disposition: Transfer [facility] Living [facility] Reason For Visit: HIP FX Discharge Diagnosis: Hip fracture s/p R trochanteric fixation Activity: Per Instructions section Non-emergency contact: Primary Care Provider and Surgeon Call non-emergency contact if: you have any medication questions and your pain is not controlled Follow-up/Referrals: Erick Zapata III, MD [Primary Care Provider] - Joss Young MD [Surgeon] - Diet: Carb Consistent or DM2 and Dialysis Renal Diet Texture: Pureed (blended smooth) Addtl Attending Provider Instructions: Miguel Mata is 75y/o M with a PMH of hypercholesterolemia, GERD, coronary artery disease, renal artery stenosis, past history of cerebral infarction, DM, hemiparesis, CHF, peripheral artery disease, history of syncope, end-stage renal disease on hemodialysis, second-degree Mobitz type I; presented following a fall sustained at his house. Hip fracture s/p R trochanteric fixation - S/P R Trochanteric Fixation on 08/23/20 - pain control with tylenol 650 mg PO Q4H PRN - Will discontinue Dilaudid 0.5mg IV Q4 PRN, no need to continue upon discharge to [facility] - PT/OT - continue at [facility] - COVID-19 test negative, ordered per [facility] request prior to discharge. - Continue home Clopidogrel - Continue with daily dressing changes - Staple removal at week 2-3 postop per Ortho - Repeat XR no later than 6 weeks post-op per Ortho - Coordination with outpatient office for telehealth care as needed. - Transfer to [facility] today 09/02/20. ESRD on Hemodialysis - Continue Hemodialysis M/W/F - Last recieved dialysis in the hospital on 09/02/20 prior to discharge to [facility] - Continue supplements as noted in the medications list. Chest discomfort: resolved - atypical anginal symptoms, more consistent with aspiration vs. gastric distensions - Echo - No WMA. EF 40-45% - Will avoid beta-blockers as patient did not tolerate in the past due to hypote nsion - Resolved, no further incidents of chest discomfort were noted during this hospital stay. Leukocytosis - started Ancef 2gm q8h after worsening leukocytosis -- completed 7 day course on 08/29/20 - WBC has been stable, low suspicion for ongoing infection. - Pro-nicko downtrended 5.27 to 3.65 - anuric - no evident skin or soft-tissue source of infection - Blood cultures x2 drawn, negative to date - penile culture from 08/22 demonstrated Klebsiella, and Enterococcus Type 2 diabetes: - Resume home Glipizide Coronary artery disease: - Continue home atorvastatin 80 mg p.o. at bedtime - Continue clopidogrel 75 mg p.o. daily - Continue nitrates as listed in med list History of renal artery stenosis: - Stented and hypertension well-controlled on amlodipine - Continue amlodipine 2.5mg GERD: - Continue famotidine Anxiety/depression: - Continue citalopram - Continue home Keppra Constipation: - Continue docusate - Continue MiraLAX Code Status: full code Dispo: Discharge to [facility] today Follow up with PCP in 1-2 weeks[address] Follow up with Dr. Young (Orthopedics) within the next 6 weeks or sooner PRN. Continue home medications as prescribed. Pending Studies at Discharge: No Stand-Alone Forms: My [facility] Skilled Items Patient informed of condition?: Yes DNR: No Discharge Level of Care: Skilled Communicable Disease: No Discharge Prognosis: [facility] C[facility]ter: No Medications and DC Order Prescriptions: New acetaminophen 325 mg Tablet 650 mg PO Q4H PRN (Reason: pain) Qty: 1 RF: 0 Continued sennosides [Senokot] 8.6 mg tablet 8.6 mg PO QPM PRN (Reason: Constipation) Qty: 30 RF: 0 amlodipine [Norvasc] 5 mg tablet 2.5 mg PO QPM Qty: 45 RF: 3 isosorbide mononitrate 60 mg tablet extended release 24 hr 60 mg PO DAILY Qty: 30 RF: 5 citalopram 10 mg tablet 10 mg PO HS Qty: 30 RF: 5 calcitriol [Rocaltrol] 0.25 mcg capsule 0.25 mcg PO 3XWK Qty: 15 RF: 5 famotidine 40 mg tablet 40 mg PO BID Qty: 180 RF: 3 hydrocortisone [Proctosol HC] 2.5 % cream with perineal applicator 1 appln NC DAILY PRN (Reason: itching) Qty: 28 RF: 0 docusate sodium [Stool Softener] 100 mg capsule 100 mg PO DAILY RF: 0 Renal Caps 1 mg Capsule 1 cap PO QAM Qty: 30 RF: 0 polyethylene glycol 3350 [Miralax] 17 gram powder in packet 17 gm PO DAILY Qty: 0 RF: 0 nitroglycerin [Nitrostat] 0.4 mg tablet, sublingual 0.4 mg SL UD PRN (Reason: Chest Pain) RF: 0 atorvastatin [Lipitor] 80 mg tablet 80 mg PO HS RF: 0 levetiracetam [Keppra] 500 mg tablet 500 mg PO 4XWK RF: 0 clopidogrel [Plavix] 75 mg tablet 75 mg PO DAILY RF: 0 citalopram 20 mg tablet 20 mg PO QAM RF: 0 glipizide 2.5 mg tablet extended release 24hr 2.5 mg PO UD RF: 0 Discharge Orders: Discharge Order (Routine); Ordered 09/02/20 Ordered By: Filippo Paniagua/Other Patient Handouts: Hemodialysis Admission Data Admit Date/Time: 08/22/20 05:35 Attending Provider: Rani Walter Admit Provider: Trip Daniels Primary Care Provider: Erick Zapata III Other Providers: [facility] ; Shad [facility] [place] ; Gerri Kothari ; Trip Daniels ; Oneyda Melendrez ; Nas Villagran ; Jarrod Malik ; Tabitha Muniz ; Joss Maxwell ; Joss Young ; Kareem Gallardo ; Jonh Yeager ; [facility], Other Interventions: Discharge Summary Assessment (RN) Last Done: 09/02/20 12:17 Supervising Physician Co-Signing Physician Notes Resident Physician Supervision Note: I independently interviewed and examined the patient and verified the grande history and physical, reviewed labs and image studies, discussed the case with the resident Dr. Alfonso and agree with the findings and care plan. Resident Activity Tracking Resident Involvement: Resident Care Provided Care Provided: Adult Hospital Medicine
[2020-09-02 07:07] LABS: Basophils # (auto) 0.01 K/uL (0-0.2); Basophils % (auto) 0.1 %; Eosinophils # (auto) 0.27 K/uL (0-0.5); Eosinophils % (auto) 2.1 %; Hematocrit (blood only) 26.4 % (42-52); Hemoglobin 8.1 g/dL (14.0-18.0); Immature Granulocytes # (auto) 0.24 K/uL (0.00-0.02); Immature Granulocytes % (auto) 1.9 %; Lymphocytes # (auto) 1.59 K/uL (1.2-3.4); Lymphocytes % (auto) 12.4 %; Mean Corpuscular Hemoglobin 31.8 pg (25-34); Mean Corpuscular Hgb Conc 30.7 g/dL (32-36); Mean Corpuscular Volume 103.5 fL (80-100); Mean Platelet Volume 10.4 fL (7.4-10.4); Monocytes # (auto) 1.61 K/uL (0.11-0.59); Monocytes % (auto) 12.5 %; Neutrophils # (auto) 9.11 K/uL (1.4-6.5); Nucleated RBC # (auto) 0.05 K/uL (0-0); Nucleated RBC % (auto) 0.4 %; Platelet Count 460 K/uL (130-400); RDW Coefficient of Variation 17.3 % (11.5-14.5); Red Blood Count 2.55 M/uL (4.7-6.1); White Blood Count 12.83 K/uL (4.8-10.8)
[2020-09-02 08:02] LABS: BUN Creatinine Ratio 15.5 (10-20); Calcium 8.3 mg/dl (8.5-10.1); Creatinine Clr Calc Pharmacy 10.6 ml/min; Est GFR (African American) 12.5; Est GFR (Non-African American) 10.8; Potassium 4.5 mmol/L (3.5-5.1)
[2020-09-02] MEDS: INSULIN ASPART 100 UNITS/ML 3 ML PEN SC SCH ×2 (09:04→13:05)
--- NOTE | 2020-09-02 10:45 | Nephrology Progress Note ---
Date of Service September 02, 2020 Assessment & Plan (1) End stage renal failure on dialysis: -- HD MWF -- Orders for HD today reviewed with HD nurse -- Tolerating treatment well -- Qb at goal -- BP and volume status are acceptable -- Electrolytes controlled -- Nephrocaps and renal diet -- Medications are appropriately dosed for kidney function -- Resume outpatient HD Rx post discharge at [facility] as scheduled (2) Dementia: -- Vascular dementia complicated by history of CVA with some chronic expressive aphasia -- Goals of care and treatment plan to be updated and reviewed with patient's and son (3) Hip fracture: -- POD 10 from trochanteric fixation -- Planned discharge to SNF post HD today (4) CAD (coronary artery disease): (5) Anemia: -- Epogen 11265 units 08/29 with HD Admission and Anticipated Discharge Date Admission Date: August 22, 2020 Subjective No acute events overnight. Miguel was seen and evaluated during HD this AM. He is tolerating the procedure well. Qb at goal. BP acceptable. Review of Systems Review of Systems: All systems reviewed & are unremarkable except as noted in HPI & below Physical Exam Constitutional: well developed, + thin and + frail appearing; no acute distress Eyes: + anicteric sclerae; no corneal abnormality ENMT: Mouth: no oral mucosal abnormality and oral mucous membranes not dry Neck: normal visual inspection and trachea midline Respiratory: normal respiratory effort Auscultation: lungs clear to auscultation bilaterally Cardiovascular: Rate/Rhythm: + irregularly irregular Heart Sounds: normal S1 and normal S2 Extremities: + AV fistula; no edema Musculoskeletal: Extremities: no cyanosis and no clubbing Skin: normal turgor; no lesions Neurologic: Motor/Sensory: no tremor and no asterixis Psychiatric: Orientation: alert and oriented x 3 Results & Data ([facility]) Vital Signs (Past 12 Hours) Vital Signs Temp Pulse Pulse Pulse Resp BP BP 09/02/20 10:20 51 L 109/59 L 09/02/20 10:00 60 116/68 09/02/20 09:40 77 115/68 09/02/20 09:20 75 140/77 09/02/20 09:06 36.9 C 51 L 805 H 132/75 09/02/20 07:41 36.9 C 63 18 09/01/20 23:13 37.2 C 80 18 136/72 BP Pulse Ox 09/02/20 10:20 09/02/20 10:00 09/02/20 09:40 09/02/20 09:20 09/02/20 09:06 09/02/20 07:41 144/74 H 98 09/01/20 23:13 99 Laboratory Results Laboratory Results - last 24 hr 09/01/20 09/01/20 09/01/20 11:46 17:47 19:09 WBC RBC Hgb Hct MCV MCH MCHC RDW Std Deviation RDW Coeff of Shayy Plt Count MPV Immature Gran % (Auto) Neut % (Auto) Lymph % (Auto) Harmon % (Auto) Eos % (Auto) Baso % (Auto) Neut # (Auto) Lymph # (Auto) Harmon # (Auto) Eos # (Auto) Baso # (Auto) Immature Gran # (Auto) Absolute Nucleated RBC Nucleated RBC % (auto) Sodium Potassium Chloride Carbon Dioxide Anion Gap BUN Creatinine Est Cr Clr Drug Dosing Est GFR ( Amer) Est GFR (Non-Af Amer) BUN/Creatinine Ratio Glucose POC Glucose 173 H 95 Calcium SARS-CoV-2 Ag (Rapid) Negative 09/01/20 09/02/20 09/02/20 21:12 06:58 06:58 WBC 12.83 H RBC 2.55 L Hgb 8.1 L Hct 26.4 L MCV 103.5 H MCH 31.8 MCHC 30.7 L RDW Std Deviation 64.0 H RDW Coeff of Shayy 17.3 H Plt Count 460 H MPV 10.4 Immature Gran % (Auto) 1.9 Neut % (Auto) 71.0 Lymph % (Auto) 12.4 Harmon % (Auto) 12.5 Eos % (Auto) 2.1 Baso % (Auto) 0.1 Neut # (Auto) 9.11 H Lymph # (Auto) 1.59 Harmon # (Auto) 1.61 H Eos # (Auto) 0.27 Baso # (Auto) 0.01 Immature Gran # (Auto) 0.24 H Absolute Nucleated RBC 0.05 H Nucleated RBC % (auto) 0.4 Sodium 137 Potassium 4.5 Chloride 102 Carbon Dioxide 26 Anion Gap 9.0 BUN 75 H D Creatinine 4.89 H* D Est Cr Clr Drug Dosing 10.6 Est GFR ( Amer) 12.5 Est GFR (Non-Af Amer) 10.8 BUN/Creatinine Ratio 15.5 Glucose 111 H POC Glucose 94 Calcium 8.3 L SARS-CoV-2 Ag (Rapid) 09/02/20 07:47 WBC RBC Hgb Hct MCV MCH MCHC RDW Std Deviation RDW Coeff of Shayy Plt Count MPV Immature Gran % (Auto) Neut % (Auto) Lymph % (Auto) Harmon % (Auto) Eos % (Auto) Baso % (Auto) Neut # (Auto) Lymph # (Auto) Harmon # (Auto) Eos # (Auto) Baso # (Auto) Immature Gran # (Auto) Absolute Nucleated RBC Nucleated RBC % (auto) Sodium Potassium Chloride Carbon Dioxide Anion Gap BUN Creatinine Est Cr Clr Drug Dosing Est GFR ( Amer) Est GFR (Non-Af Amer) BUN/Creatinine Ratio Glucose POC Glucose 125 H Calcium SARS-CoV-2 Ag (Rapid) PG Care Time/CCT Total # of Minutes Spent Total Time Spent with Patient: Total time spent is greater than 50% in coordination of care (as documented) at patient's floor/unit and/or counseling patient: Coding Level of Care Code 08578 Subseq Hosp Care Lvl 3 Diagnoses End stage renal failure on dialysis N18.6; Z99.2 Dementia F03.90 Hip fracture S72.009A CAD (coronary artery disease) I25.10 Coronary Disease-Associated Artery/Lesion type: [place] artery [place] vs. transplanted heart: [place] heart Associated angina: without angina Anemia D64.9 (1) CAD (coronary artery disease) Coronary Disease-Associated Artery/Lesion type: [place] artery [place] vs. transplanted heart: [place] heart Associated angina: without angina Qualified Code(s): I25.10 - Atherosclerotic heart disease of [place] coronary artery without angina pectoris
[2020-09-02] MEDS: FAMOTIDINE 40 MG TABLET PO SCH (13:01)
[2020-09-02] MEDS: NEPHROCAPS PO SCH (13:02)
[2020-09-02] MEDS: CLOPIDOGREL BISULFATE 75 MG TAB PO SCH (13:02)
[2020-09-02] MEDS: CALCITRIOL 0.25 MCG CAPSULE PO SCH (13:02)
[2020-09-02] MEDS: CITALOPRAM 20 MG TAB PO SCH (13:02)
[2020-09-02] MEDS: ISOSORBIDE MONO EXTENDED REL 60 MG TABCR PO SCH (13:02)
[2020-09-02] MEDS: DOCUSATE SODIUM 100 MG CAP PO SCH (13:03)
[2020-09-02] MEDS: POLYETHYLENE (MIRALAX) 17 GM PACK PO SCH (13:03)
[2020-09-02] MEDS: INSULIN GLARGINE SOLOSTAR 100 UNITS/ML 3 ML PEN SC SCH (13:05)
== END 2020-09-02 15:42 | DRG 480 ==
LOC: ED 02:24 → 2S 05:35 → SUATTDRO 05:35 → 2S 09:01 → 3W 08-27 16:38

== ENCOUNTER 2020-09-30 14:46 | Inpatient (IN) ==
--- NOTE | 2020-09-30 15:16 | CT Scan Report ---
HEAD CT NONCONTRAST CT DOSE: 537.48 mGy.cm HISTORY: Stroke Like Symptoms TECHNIQUE: Multiaxial CT images of the head were performed without the use of intravenous contrast. A utomated exposure control was utilized for this study. A dose lowering technique was utilized adheri ng to the principles of ALARA. Comparison: Head CT 08/22/2020. Findings: The paranasal sinuses and mastoid air cells are clear. The calvarium and skull base are int act. No change in the large area of encephalomalacia involving the majority of the left frontal lobe. This is consistent with an old infarct. There is also a old small infarct within the right posterior parietal lobe. There is no mass, hematoma, midline shift, acute infarct. Atrophy and microvascular i schemic changes are again noted. Old lacunar infarct seen within the right basal ganglia and right th alamus. Impression: 1. No acute intracranial abnormality. 2. Old infarcts as described above. ACT 112: Negative or not required by law. Electronically signed by: Byron Austin M.D. 09/30/2020 3:15 PM
[2020-09-30 15:30] LABS: Partial Thromboplastin Ratio 1.1; Prothrombin Time 10.9 Seconds (9.0-12.0)
[2020-09-30 15:31] LABS: Basophils # (auto) 0.02 K/uL (0-0.2); Basophils % (auto) 0.3 %; Eosinophils # (auto) 0.08 K/uL (0-0.5); Hematocrit (blood only) 32.2 % (42-52); Hemoglobin 9.6 g/dL (14.0-18.0); Immature Granulocytes # (auto) 0.01 K/uL (0.00-0.02); Immature Granulocytes % (auto) 0.1 %; Lymphocytes # (auto) 1.51 K/uL (1.2-3.4); Lymphocytes % (auto) 19.1 %; Mean Corpuscular Hgb Conc 29.8 g/dL (32-36); Mean Corpuscular Volume 103.9 fL (80-100); Mean Platelet Volume 9.4 fL (7.4-10.4); Monocytes # (auto) 1.07 K/uL (0.11-0.59); Monocytes % (auto) 13.5 %; Neutrophils # (auto) 5.21 K/uL (1.4-6.5); Platelet Count 320 K/uL (130-400); RDW Coefficient of Variation 17.8 % (11.5-14.5)
[2020-09-30 15:43] LABS: Albumin Level 2.3 gm/dl (3.4-5.0); BUN Creatinine Ratio 5.9 (10-20); Calcium 7.6 mg/dl (8.5-10.1); Creatinine Clr Calc Pharmacy 31.8 ml/min; Est GFR (African American) 45.4; Est GFR (Non-African American) 39.1; Magnesium 2.2 mg/dl (1.8-2.4); Potassium 3.5 mmol/L (3.5-5.1)
[2020-09-30 15:49] LABS: Albumin Globulin Ratio 0.5 (0.9-2); Bilirubin,Total 0.5 mg/dl (0.2-1); Globulin 4.3 gm/dl (2.5-4.0); Total Protein 6.6 gm/dl (6.4-8.2); Troponin I 0.056 ng/ml (0-0.045)
--- NOTE | 2020-09-30 16:03 | Emergency Department Note ---
Impression & Plan Aphasia, History of cerebrovascular accident ED Provider Note INFORMANT: Patient, EMS ED PROVIDER(S): Ar Bull MD CHIEF COMPLAINT: Altered mental status PLAN: Disposition: Admitted Condition: Good Outpatient prescription management: none Referral: None MEDICAL DECISION MAKING: Patient presented due to altered mental status. The report was he was aphasic and had a gaze preference. He was not made a prehospital stroke alert. After I saw the patient and given his stroke history a stroke alert was initiated. Because of his renal status angiography was deferred. The patient had resolution of his gaze preference and was beginning to speak and answer questions for me. He was taken emergently to CT imaging. No acute stroke was seen. Patient has significant encephalomalacia noted from prior events. The patient became more more conversive although does have significant baseline communicative deficits. He had unremarkable laboratory tests except for his baseline renal insufficiency. His troponin was mildly elevated although prior record indicates this is a chronic issue for him. Patient's ECG shows a sinus rhythm with first-degree AV block. This is not significantly different than prior. I discussed the case with Dr. Blackwell of [place] [facility]. Given the situation and his history TPA was not recommended. The patient could have had a another strokelike event or possibly even a seizure. The patient does receive his Keppra on and Saturday. Keppra is dialyzed. He was given 500 mg of IV Keppra. He had passed his swallowing evaluation by nursing. He was given oral aspirin crushed in applesauce as he does not have his teeth. Covid testing performed. [facility], Dr. Lugo. Patient was evaluated in the ER by Dr. Melendrez. Triage Nursing notes reviewed and agree them. Additional history obtained from dialysis nursing noted that the patient had a brief staring spell for about 20 seconds and then became aphasic and had the right gaze preference. Prior medical records reviewed Vital Signs: reviewed and remarkable for no significant abnormalities Differential diagnosis: CVA, TIA, seizure, infection, dehydration, metabolic abnormality, hypo/hyperglycemia, electrolyte disturbance, anemia, hypoxia, cardiac sources, intracerebral event, toxicologic, neurologic, as well as other pathologies. Diagnostics interpreted by me: ECG: Twelve-lead ECG reveals a sinus rhythm with a first-degree AV block at [address] Rightward axis. No ST elevation. No PVCs. Cardiac Monitoring: Cardiac monitoring ordered by me: The patient was placed on continuous cardiac monitoring and observed. It revealed a sinus rhythm at 75 beats per minute without ectopy or evidence of dysrhythmia. Imaging studies: CT scan of the head was performed and reveal significant encephalomalacia. No acute stroke or bleed noted. I refer you to the EMR for further details. Consultation(s): [facility] hospitalist HPI: The patient is a 75 year old male who presents to the Emergency Room from dialysis after an episode of staring and then aphasia. He had transient right gaze preference noted. Shortly after arrival he began to leak again. The patient has significant cognitive deficit at baseline. He also has a history of stroke and hemiparesis. This started just prior to arrival and is resolving. The patient also notes the following associated symptoms, feeling thirsty. The patient has been given no medication for relieving factors. Denies any current pain. Dialysis reportedly removed 500 mL and returned 1 L. Pt denies LOC, headache, fevers, chills, diaphoresis, visual changes, neck pain, chest pain, breathing difficulties, nausea, vomiting, abdominal pain, back pain, numbness, new weakness, lymphadenopathy, rash, or other complaints. ROS: See above HPI for pertinent positives & negatives. A total of 10 systems reviewed and were otherwise negative. PAST MEDICAL HISTORY:See Below , CVA, end-stage renal disease PAST SURGICAL HISTORY:See Below, FAMILY HISTORY:See Below SOCIAL HISTORY:See Below, resides at [facility] HOME MEDICATIONS:See Below ALLERGIES:See Below VITALS:See Below PHYSICAL EXAMINATION: GENERAL: Awake, alert, nontoxic appearing, in no distress HENT: Normocephalic, atraumatic. Oropharynx unremarkable. EYES: Normal conjunctiva. Sclera non-icteric. NECK: Inspection normal. Non-tender. Supple. No nuchal rigidity. FROM. No masses. RESPIRATORY: Clear to auscultation. No wheezes. No rales. Normal respiratory effort. CARDIAC: Normal rate. Irregular rhythm. No murmurs. No rubs. Extremities warm and well perfused. Pulses equal. No JVD. GI: Soft, non-distended. No tenderness to palpation. No rebound or guarding. No masses. RECTAL: Deferred. MUSCULOSKELETAL: Atraumatic. Chest examination reveals no tenderness. The back is symmetrical on inspection without obvious abnormality. There is no CVA tenderness to palpation. No joint edema. LOWER EXTREMITIES: Calves are equal size bilaterally and non-tender. No edema. No discoloration. NEURO: Normal sensorium. No sensory deficits noted. The patient is unable to move his lower extremities. SKIN: No rash or jaundice noted. Ar Bull MD Past Med/Surg History Medical History Benign prostatic hyperplasia CAD (coronary artery disease) Carotid artery stenosis Chronic kidney disease Congestive heart failure (CHF) Dementia Depression Diabetes mellitus, type 2 Diabetic peripheral neuropathy Esophageal reflux Flash pulmonary edema Hemodialysis patient History of CVA with residual deficit Hyperlipidemia Hypertension Memory problem Myocardial Infarction Renal artery stenosis Seizure disorder SNHL (sensorineural hearing loss) Surgical History History of aorto-femoral bypass History of carotid endarterectomy History of cataract surgery History of colonoscopy History of esophagogastroduodenoscopy (EGD) History of tooth extraction History of vascular access device S/P CABG (coronary artery bypass graft) (2007) Family History Brother Hypertension Hypercholesteremia Sister Diabetes Unknown Hypertension Cardiac disorder Social History Smoking Status: Current every day smoker Tobacco Type: Cigarettes Cigarettes Per Day: 30; Second Hand Exposure: No; Hx Alcohol Use: No (unable to assess at this time) Hx Substance Use: No (unable to assess at this time) Preferred Language: Citizen Of [place] Communication Ability: Unable Visual Impairment: No Limitations Embedded Processor Required: No Beliefs That Will Affect Care: None marital status: Current Living Situation: Spouse Current Living Situation Comment: in an apartment per Feels Safe at Home: Yes caffeine: No Seatbelt Use: always Assistive Devices: None Allergies Allergies Allergy/AdvReac Type Severity Reaction Status Date / Time adhesive Allergy Unknown BLISTERING Verified 09/28/20 08:23 OF SKIN latex Allergy Unknown Rash Verified 09/28/20 08:23 Home Meds Home Medications Medication Instructions Recorded Confirmed atorvastatin [Lipitor] 80 mg PO HS 02/18/20 09/30/20 clopidogrel [Plavix] 75 mg PO DAILY 02/18/20 09/30/20 levetiracetam [Keppra] 500 mg PO 4XWK 02/18/20 09/30/20 citalopram 20 mg PO QAM 03/29/20 09/30/20 docusate sodium [Stool Softener] 100 mg PO DAILY 04/13/20 09/30/20 glipizide 2.5 mg PO QAM 08/22/20 09/30/20 acetaminophen 650 mg PO Q6H PRN MDD 3000 MG 09/30/20 09/30/20 APAP/24 HOURS amlodipine [Norvasc] 2.5 mg PO HS 09/30/20 09/30/20 bisacodyl [Dulcolax (bisacodyl)] 10 mg IN DIRECTED PRN 09/30/20 09/30/20 hydrocortisone [Proctosol HC] 1 appln IN Q24H PRN 09/30/20 09/30/20 magnesium hydroxide [Milk of 30 ml PO DIRECTED PRN 09/30/20 09/30/20 Magnesia] mineral oil [Enema] 118 ml IN DIRECTED PRN 09/30/20 09/30/20 sennosides [Senokot] 8.6 mg PO Q48H PRN 09/30/20 09/30/20 Previous Rx's Medication Instructions Recorded Renal Caps 1 cap PO QAM #30 cap 11/20/19 polyethylene glycol 3350 [Miralax] 17 gm PO DAILY #0 ea 12/04/19 famotidine 40 mg tablet 40 mg PO BID #180 tab 03/01/20 isosorbide mononitrate 60 mg 60 mg PO DAILY #30 tab 06/07/20 tablet,extended release 24 hr calcitriol 0.25 mcg capsule 0.25 mcg PO 3XWK #15 cap 08/09/20 citalopram 10 mg tablet 10 mg PO HS #30 tab 09/05/20 Results & Data (ED) Vital Signs Vital Signs - 24 hr 09/30/20 14:56 09/30/20 14:58 09/30/20 14:59 Temperature Temperature Source Pulse Rate 84 76 89 Pulse Rate from SpO2 Sensor 82 86 84 Respiratory Rate 22 14 17 Respiratory Effort / Characteristics Respiratory Depth Respiratory Pattern Blood Pressure 151/79 H Blood Pressure Mean 137 Pulse Oximetry 96 96 99 Oxygen Delivery Method Sepsis Recent Fever Within 48 Hours Sepsis New/Unexplained Change in Mental Status Sepsis Action Taken by Nursing 09/30/20 15:00 09/30/20 15:01 09/30/20 15:03 Temperature Temperature Source Pulse Rate 85 90 Pulse Rate from SpO2 Sensor 87 90 Respiratory Rate 14 20 Respiratory Effort / Characteristics Respiratory Depth Respiratory Pattern Blood Pressure 136/75 Blood Pressure Mean 79 Pulse Oximetry 98 100 97 Oxygen Delivery Method Room Air Sepsis Recent Fever Within 48 Hours Sepsis New/Unexplained Change in Mental Status Sepsis Action Taken by Nursing 09/30/20 15:04 09/30/20 15:30 09/30/20 15:31 Temperature 37.5 C Temperature Source Oral Pulse Rate 90 87 83 Pulse Rate from SpO2 Sensor 87 85 Respiratory Rate 20 13 14 Respiratory Effort / Characteristics Non-Labored Spontaneous Respiratory Depth Normal Respiratory Pattern Regular Blood Pressure 159/103 H 151/89 H Blood Pressure Mean 121 109 Pulse Oximetry 97 98 97 Oxygen Delivery Method Room Air Sepsis Recent Fever Within 48 Hours No Sepsis New/Unexplained Change in Mental Status No Sepsis Action Taken by Nursing No Action Required 09/30/20 16:00 09/30/20 16:01 09/30/20 16:30 Temperature Temperature Source Pulse Rate 69 90 82 Pulse Rate from SpO2 Sensor 77 86 85 Respiratory Rate 18 18 15 Respiratory Effort / Characteristics Respiratory Depth Respiratory Pattern Blood Pressure 176/84 H 160/96 H Blood Pressure Mean 124 126 Pulse Oximetry 98 97 98 Oxygen Delivery Method Sepsis Recent Fever Within 48 Hours Sepsis New/Unexplained Change in Mental Status Sepsis Action Taken by Nursing 09/30/20 16:31 09/30/20 17:00 09/30/20 17:01 Temperature Temperature Source Pulse Rate 84 74 79 Pulse Rate from SpO2 Sensor 86 Respiratory Rate 16 18 13 Respiratory Effort / Characteristics Respiratory Depth Respiratory Pattern Blood Pressure 161/86 H Blood Pressure Mean 101 Pulse Oximetry 98 Oxygen Delivery Method Sepsis Recent Fever Within 48 Hours Sepsis New/Unexplained Change in Mental Status Sepsis Action Taken by Nursing 09/30/20 17:30 09/30/20 17:31 09/30/20 18:00 Temperature Temperature Source Pulse Rate 78 88 82 Pulse Rate from SpO2 Sensor Respiratory Rate 21 16 23 Respiratory Effort / Characteristics Respiratory Depth Respiratory Pattern Blood Pressure 145/86 H Blood Pressure Mean 100 Pulse Oximetry 98 Oxygen Delivery Method Sepsis Recent Fever Within 48 Hours Sepsis New/Unexplained Change in Mental Status Sepsis Action Taken by Nursing 09/30/20 18:30 01/15/21 19:00 09/30/20 19:31 Temperature Temperature Source Pulse Rate 84 84 78 Pulse Rate from SpO2 Sensor Respiratory Rate 17 16 20 Respiratory Effort / Characteristics Respiratory Depth Respiratory Pattern Blood Pressure 151/119 H 182/132 H Blood Pressure Mean 133 153 Pulse Oximetry 97 97 Oxygen Delivery Method Room Air Sepsis Recent Fever Within 48 Hours Sepsis New/Unexplained Change in Mental Status Sepsis Action Taken by Nursing Laboratory Data Result diagrams: 09/30/20 14:56 09/30/20 14:56 Lab Results 09/30/20 09/30/20 09/30/20 Range/Units 14:56 14:56 14:56 WBC 7.90 (4.8-10.8) K/uL RBC 3.10 L (4.7-6.1) M/uL Hgb 9.6 L (14.0-18.0) g/dL Hct 32.2 L (42-52) % MCV 103.9 H (80-100) fL MCH 31.0 (25-34) pg MCHC 29.8 L (32-36) g/dL RDW Std Deviation 67.0 H (36.4-46.3) fL RDW Coeff of Shayy 17.8 H (11.5-14.5) % Plt Count 320 (130-400) K/uL MPV 9.4 (7.4-10.4) fL Immature Gran % (Auto) 0.1 % Neut % (Auto) 66.0 % Lymph % (Auto) 19.1 % [place] % (Auto) 13.5 % Eos % (Auto) 1.0 % Baso % (Auto) 0.3 % Neut # (Auto) 5.21 (1.4-6.5) K/uL Lymph # (Auto) 1.51 (1.2-3.4) K/uL [place] # (Auto) 1.07 H (0.11-0.59) K/uL Eos # (Auto) 0.08 (0-0.5) K/uL Baso # (Auto) 0.02 (0-0.2) K/uL Immature Gran # (Auto) 0.01 (0.00-0.02) K/uL PT 10.9 (9.0-12.0) Seconds INR 1.0 (0.9-1.1) APTT 31.0 (21.0-31.0) Seconds PTT Ratio 1.1 Sodium (136-145) mmol/L Potassium (3.5-5.1) mmol/L Chloride (98-107) mmol/L Carbon Dioxide (21-32) mmol/L Anion Gap (3-11) BUN (7-18) mg/dl Creatinine (0.6-1.4) mg/dl Est Cr Clr Drug Dosing ml/min Est GFR ( Amer) Est GFR (Non-Af Amer) BUN/Creatinine Ratio (10-20) Glucose (70-99) mg/dl Calcium (8.5-10.1) mg/dl Magnesium (1.8-2.4) mg/dl Total Bilirubin (0.2-1) mg/dl AST (15-37) U/L ALT (12-78) U/L Alkaline Phosphatase (45-117) U/L Troponin I (0-0.045) ng/ml Total Protein (6.4-8.2) gm/dl Albumin (3.4-5.0) gm/dl Globulin (2.5-4.0) gm/dl Albumin/Globulin Ratio (0.9-2) COVID-19 Eval Order SARS-CoV-2, RNA, NAAT (NEGATIVE) Blood Type A Positive Antibody Screen NEGATIVE 09/30/20 09/30/20 09/30/20 Range/Units 14:56 19:08 19:08 WBC (4.8-10.8) K/uL RBC (4.7-6.1) M/uL Hgb (14.0-18.0) g/dL Hct (42-52) % MCV (80-100) fL MCH (25-34) pg MCHC (32-36) g/dL RDW Std Deviation (36.4-46.3) fL RDW Coeff of Shayy (11.5-14.5) % Plt Count (130-400) K/uL MPV (7.4-10.4) fL Immature Gran % (Auto) % Neut % (Auto) % Lymph % (Auto) % [place] % (Auto) % Eos % (Auto) % Baso % (Auto) % Neut # (Auto) (1.4-6.5) K/uL Lymph # (Auto) (1.2-3.4) K/uL [place] # (Auto) (0.11-0.59) K/uL Eos # (Auto) (0-0.5) K/uL Baso # (Auto) (0-0.2) K/uL Immature Gran # (Auto) (0.00-0.02) K/uL PT (9.0-12.0) Seconds INR (0.9-1.1) APTT (21.0-31.0) Seconds PTT Ratio Sodium 139 (136-145) mmol/L Potassium 3.5 (3.5-5.1) mmol/L Chloride 100 (98-107) mmol/L Carbon Dioxide 36 H (21-32) mmol/L Anion Gap 3.0 (3-11) BUN 10 (7-18) mg/dl Creatinine 1.68 H (0.6-1.4) mg/dl Est Cr Clr Drug Dosing 31.8 ml/min Est GFR ( Amer) 45.4 Est GFR (Non-Af Amer) 39.1 BUN/Creatinine Ratio 5.9 L (10-20) Glucose 96 (70-99) mg/dl Calcium 7.6 L (8.5-10.1) mg/dl Magnesium 2.2 (1.8-2.4) mg/dl Total Bilirubin 0.5 (0.2-1) mg/dl AST 30 (15-37) U/L ALT 24 (12-78) U/L Alkaline Phosphatase 93 (45-117) U/L Troponin I 0.056 H* (0-0.045) ng/ml Total Protein 6.6 (6.4-8.2) gm/dl Albumin 2.3 L (3.4-5.0) gm/dl Globulin 4.3 H (2.5-4.0) gm/dl Albumin/Globulin Ratio 0.5 L (0.9-2) COVID[facility], RNA, NAAT NEGATIVE (NEGATIVE) Blood Type Antibody Screen Administered Medications Discontinued Medications Aspirin (Aspirin Chew 324 Mg) 324 mg PO NOW STA Stop: 09/30/20 18:45 Last Admin: 09/30/20 19:32 Dose: 324 mg Documented by: [id number] Levetiracetam 500 mg/ Sodium (Chloride) 105 mls @ 440 mls/hr IV NOW STA Stop: 09/30/20 18:32 Last Infusion: 09/30/20 19:49 Dose: 0 mls/hr Documented by: [id number] Admin: 09/30/20 19:01 Dose: 440 mls/hr Documented by: [id number] Discharge Plan Visit Data Chief Complaint: Altered Mental Status ED Provider: Ar Bull Discharge Problem: Aphasia, History of cerebrovascular accident Forms Stand Alone Forms: [facility] Prescriptions Prescriptions: No Action isosorbide mononitrate 60 mg tablet extended release 24 hr 60 mg PO DAILY Qty: 30 RF: 5 calcitriol [Rocaltrol] 0.25 mcg capsule 0.25 mcg PO 3XWK Qty: 15 RF: 5 citalopram 10 mg tablet 10 mg PO HS Qty: 30 RF: 5 famotidine 40 mg tablet 40 mg PO BID Qty: 180 RF: 3 docusate sodium [Stool Softener] 100 mg capsule 100 mg PO DAILY RF: 0 Renal Caps 1 mg Capsule 1 cap PO QAM Qty: 30 RF: 0 polyethylene glycol 3350 [Miralax] 17 gram powder in packet 17 gm PO DAILY Qty: 0 RF: 0 atorvastatin [Lipitor] 80 mg tablet 80 mg PO HS RF: 0 levetiracetam [Keppra] 500 mg tablet 500 mg PO 4XWK RF: 0 clopidogrel [Plavix] 75 mg tablet 75 mg PO DAILY RF: 0 citalopram 20 mg tablet 20 mg PO QAM RF: 0 glipizide 2.5 mg tablet extended release 24hr 2.5 mg PO QAM RF: 0 acetaminophen 325 mg tablet 650 mg PO Q6H MDD 3000 MG APAP/24 HOURS PRN (Reason: Fever Or Pain) RF: 0 amlodipine [Norvasc] 5 mg tablet 2.5 mg PO HS RF: 0 sennosides [Senokot] 8.6 mg tablet 8.6 mg PO Q48H PRN (Reason: Constipation) RF: 0 hydrocortisone [Proctosol HC] 2.5 % cream with perineal applicator 1 appln IN Q24H PRN (Reason: Itching) RF: 0 mineral oil [Enema] Enema 118 ml IN DIRECTED PRN (Reason: Constipation) RF: 0 magnesium hydroxide [Milk of Magnesia] 400 mg/5 mL Suspension 30 ml PO DIRECTED PRN (Reason: Constipation) RF: 0 bisacodyl [Dulcolax (bisacodyl)] 10 mg Suppository 10 mg IN DIRECTED PRN (Reason: Constipation) RF: 0
[2020-09-30] MEDS ORDERED: levETIRAcetam 500 MG in 0.9 % SODIUM CHLORIDE 100 ML IV STA (18:18)
[2020-09-30] MEDS ORDERED: ASPIRIN CHEW 324 MG PO STA (18:44)
--- NOTE | 2020-09-30 20:33 | History & Physical Report ---
Date of Service September 30, 2020 Assessment & Plan (1) History of cerebrovascular accident: Patient with long history of CVA events continue optimizing therapy, as he is doing very well with all his chronic problems. - Unsure if today's event was CVA related as assessing patient function is difficult with his baseline deficits. - Qh neuro checks tonight while following siezure precautions and fall precautions. - Hold BP mediations tonight - Transfer hyperglycemic medications to subq sliding scale insulin. - ASA given in EMD - Patient swallow screen passed -Continue Atorvastatin 80mg po daily -Continue Plavix 75mg po daily -PT/OT, Neurology evaluation appreciated Present on Admission?: Yes (2) Aphasia: Severe expressive aphasia Present on Admission?: Yes (3) ESRD on dialysis: Patient gets dialysis M/W/F, should be able to get through the weekend without needing dialysis. Unsure how much dialysis patient received today. - Renal diet low sodium -Continue calcitriol -Continue Nephrocaps Present on Admission?: Yes (4) Hypercholesteremia: As above optimized medically continue supportive care and lipid therapy Present on Admission?: Yes (5) Hip fracture: acutely repaired last month. Patient had follow up with Ortho recently. Assist with transfers and strict fall precautions and assists with all transfers. Present on Admission?: Yes (6) Seizure: Patient administered Keppra in the ER. No witnessed seizure activity -Continue Keppra 500mg po q Saturday, , Saturday, Saturday Present on Admission?: Yes (7) Depression: Chronic -Continue Celexa 10mg po qHS. Patient had mention of additional dose of Celexa 20mg po qAM. Per record review and discussion with pharmacy it does not seem that he has filled this prescription for some time. His home dose should be clarified prior to discharge. For now will continue 10mg po qHS. Present on Admission?: Yes (8) GERD (gastroesophageal reflux disease): Chronic. -Continue Pepcid 40mg po BID Present on Admission?: Yes (9) Diabetes mellitus, type 2: Blood sugar well controlled -Hold oral agents - Glipizide -ISS. Goal blood sugar 100 - 140 Present on Admission?: Yes History of Present Illness 75 YOM resident of [facility], brought to the emergency room today for suspected seizure like event or TIA/CVA. MR Mata has a history of ESRD on hemodialysis (right tunneled perm cath) (LT AC AV fistula), Multiple CVA, HfRef (40-45%), DM II, CAD, chronic constipation, right hip intratrochanteric nail last month. Patient reportedly had an episode of right gaze deviation, and alteration in mentation at dialysis unit and again in the EMD. In the EMD the patient was stroke alerted secondary to his aphasia and mentation a stroke alert was called. The symptoms resolved and therefore along with his his cerebral history, was determined to not be a tPA candidate. Patient baseline mentation through chart review is answering yes and shaking head no. Patient appears to be appropriate, with his responses. Will admit the patient for observation, 24 hour telemetry to rule out afib/dysrhythmia, and neurological assessments. Allergies Allergy/AdvReac Type Severity Reaction Status Date / Time adhesive Allergy Unknown BLISTERING Verified 09/28/20 08:23 OF SKIN latex Allergy Unknown Rash Verified 09/28/20 08:23 Home Medications Medication Instructions Recorded Confirmed Type Renal Caps 1 cap PO QAM #30 cap 11/20/19 09/30/20 Rx polyethylene glycol 3350 [Miralax] 17 gm PO DAILY #0 ea 12/04/19 09/30/20 Rx atorvastatin [Lipitor] 80 mg PO HS 02/18/20 09/30/20 History clopidogrel [Plavix] 75 mg PO DAILY 02/18/20 09/30/20 History levetiracetam [Keppra] 500 mg PO 4XWK 02/18/20 09/30/20 History famotidine 40 mg tablet 40 mg PO BID #180 tab 03/01/20 09/30/20 Rx docusate sodium [Stool Softener] 100 mg PO DAILY 04/13/20 09/30/20 History isosorbide mononitrate 60 mg 60 mg PO DAILY #30 tab 06/07/20 09/30/20 Rx tablet,extended release 24 hr calcitriol 0.25 mcg capsule 0.25 mcg PO 3XWK #15 cap 08/09/20 09/30/20 Rx glipizide 2.5 mg PO QAM 08/22/20 09/30/20 History citalopram 10 mg tablet 10 mg PO HS #30 tab 09/05/20 09/30/20 Rx acetaminophen 650 mg PO Q6H PRN MDD 3000 MG 09/30/20 09/30/20 History APAP/24 HOURS amlodipine [Norvasc] 2.5 mg PO HS 09/30/20 09/30/20 History bisacodyl [Dulcolax (bisacodyl)] 10 mg VT DIRECTED PRN 09/30/20 09/30/20 History hydrocortisone [Proctosol HC] 1 appln VT Q24H PRN 09/30/20 09/30/20 History magnesium hydroxide [Milk of 30 ml PO DIRECTED PRN 09/30/20 09/30/20 History Magnesia] mineral oil [Enema] 118 ml VT DIRECTED PRN 09/30/20 09/30/20 History sennosides [Senokot] 8.6 mg PO Q48H PRN 09/30/20 09/30/20 History Past Med/Surg History Medical History Benign prostatic hyperplasia CAD (coronary artery disease) Carotid artery stenosis Chronic kidney disease Congestive heart failure (CHF) Dementia Depression Diabetes mellitus, type 2 Diabetic peripheral neuropathy Esophageal reflux Flash pulmonary edema Hemodialysis patient History of CVA with residual deficit Hyperlipidemia Hypertension Memory problem Myocardial Infarction Renal artery stenosis Seizure disorder SNHL (sensorineural hearing loss) Surgical History History of aorto-femoral bypass History of carotid endarterectomy History of cataract surgery History of colonoscopy History of esophagogastroduodenoscopy (EGD) History of tooth extraction History of vascular access device S/P CABG (coronary artery bypass graft) (2007) Family History Brother Hypertension Hypercholesteremia Sister Diabetes Unknown Hypertension Cardiac disorder Social History Smoking Status: Unknown if ever smoked Tobacco Type: Cigarettes Cigarettes Per Day: 30; Second Hand Exposure: No; Hx Alcohol Use: No (unable to assess at this time) Hx Substance Use: No (unable to assess at this time) Preferred Language: Indonesian Communication Ability: Unable Visual Impairment: No Limitations Glass Glazier Required: No Beliefs That Will Affect Care: None marital status: Current Living Situation: Spouse Current Living Situation Comment: in an apartment per Feels Safe at Home: Yes Safety Concerns: Feels Safe At This Time caffeine: No Seatbelt Use: always Assistive Devices: BiPap, Glasses and Oxygen - Continuous Review of Systems Review of Systems: unalbe to complete ROS per patient interview. ROS per HPI Physical Exam Physical Exam: PHYSICAL EXAM: General: awake, alert, no apparent distress Head: Normocephalic, atraumatic ENT: PERRL, EOMI, no pharyngeal exudate, mucous membranes moist Neuro: AOx1, garbled and able to answer with yes, strength and sensation intact bilaterally 5/5, no pronator drift. No dysphagia. Chest: equal rise and fall of the chest, no accessory muscle use, no heaves or thirlls, Clear to auscultation, on room air, Cardiac: Regular rate and rhythm, telelmetry reviewed, skin warm dry, cap refill <3 seconds, peripheral pusles +2 no JVD, no murmur. GI: NABS x 4 quadrants, soft, nontender to palpation, no rebound, guarding or tenderness : Spontaneously voiding, no pain, no CVA tenderness, Extremities: Normal inspection, no peripheral edema or erythema, calfs nontender to palpation Psych: Normal mood and affect Skin: no rash or erythema Results & Data Results & Data ([facility]) Vital Signs (Past 12 Hours) Vital Signs Temp Pulse Resp BP Pulse Ox 09/30/20 20:01 75 20 156/107 H 95 09/30/20 19:31 78 20 182/132 H 97 09/30/20 19:00 84 16 151/119 H 97 09/30/20 18:30 84 17 09/30/20 18:00 82 23 09/30/20 17:31 88 16 145/86 H 98 09/30/20 17:30 78 21 09/30/20 17:01 79 13 09/30/20 17:00 74 18 161/86 H 09/30/20 16:31 84 16 98 09/30/20 16:30 82 15 160/96 H 98 09/30/20 16:01 90 18 97 09/30/20 16:00 69 18 176/84 H 98 09/30/20 15:31 83 14 97 09/30/20 15:30 87 13 151/89 H 98 09/30/20 15:04 37.5 C 90 20 159/103 H 97 01/15/21 15:03 97 09/30/20 15:01 90 20 100 09/30/20 15:00 85 14 136/75 98 09/30/20 14:59 89 17 99 09/30/20 14:58 76 14 151/79 H 96 09/30/20 14:56 84 22 96 Laboratory Results Abnormal lab results 09/30/20 09/30/20 Range/Units 14:56 14:56 RBC 3.10 L (4.7-6.1) M/uL Hgb 9.6 L (14.0-18.0) g/dL Hct 32.2 L (42-52) % MCV 103.9 H (80-100) fL MCHC 29.8 L (32-36) g/dL RDW Std Deviation 67.0 H (36.4-46.3) fL RDW Coeff of Shayy 17.8 H (11.5-14.5) % Glenn # (Auto) 1.07 H (0.11-0.59) K/uL Carbon Dioxide 36 H (21-32) mmol/L Creatinine 1.68 H (0.6-1.4) mg/dl BUN/Creatinine Ratio 5.9 L (10-20) Calcium 7.6 L (8.5-10.1) mg/dl Troponin I 0.056 H* (0-0.045) ng/ml Albumin 2.3 L (3.4-5.0) gm/dl Globulin 4.3 H (2.5-4.0) gm/dl Albumin/Globulin Ratio 0.5 L (0.9-2) Diagnostic Findings HEAD CT NONCONTRAST CT DOSE: 537.48 mGy.cm HISTORY: Stroke Like Symptoms TECHNIQUE: Multiaxial CT images of the head were performed without the use of intravenous contrast. Automated exposure control was utilized for this study. A dose lowering technique was utilized adhering to the principles of ALARA. Comparison: Head CT 08/22/2020. Findings: The paranasal sinuses and mastoid air cells are clear. The calvarium and skull base are intact. No change in the large area of encephalomalacia involving the majority of the left frontal lobe. This is consistent with an old infarct. There is also a old small infarct within the right posterior parietal lobe. There is no mass, hematoma, midline shift, acute infarct. Atrophy and microvascular ischemic changes are again noted. Old lacunar infarct seen within the right basal ganglia and right thalamus. Impression: 1. No acute intracranial abnormality. 2. Old infarcts as described above. Code Status & VTE Plan Code Status Full per chart review PG Care Time/CCT Total # of Minutes Spent Total Time Spent with Patient: Total time spent is greater than 50% in coordination of care (as documented) at patient's floor/unit and/or counseling patient: Coding Level of Care Code 12637 OBS Care - Level 3 Diagnoses History of cerebrovascular accident Z86.73 Aphasia R47.01 ESRD on dialysis N18.6; Z99.2 Hypercholesteremia E78.00 Hip fracture S72.009A Seizure R56.9 Depression F32.9 Depression Type: unspecified GERD (gastroesophageal reflux disease) K21.9 Esophagitis presence: esophagitis presence not specified Diabetes mellitus, type 2 E11.9 (1) Depression Depression Type: unspecified Qualified Code(s): F32.9 - Major depressive disorder, single episode, unspecified (2) GERD (gastroesophageal reflux disease) Esophagitis presence: esophagitis presence not specified Qualified Code(s): K21.9 - Gastro-esophageal reflux disease without esophagitis
[2020-09-30] MEDS ORDERED: NON-FORMULARY MEDICATION (Citalopram 10 mg tablet) PO SCH (21:00)
--- NOTE | 2020-09-30 23:29 | Electrocardiogram Report ---
Test Reason : Blood Pressure : / mmHG Vent. Rate : 071 BPM Atrial Rate : 085 BPM P-R Int : 000 ms QRS Dur : 092 ms QT Int : 404 ms P-R-T Axes : 000 091 265 degrees QTc Int : 439 ms Poor data quality, interpretation may be adversely affected Sinus rhythm Premature atrial complexes Rightward axis Nonspecific T wave abnormality Abnormal ECG When compared with ECG of 26-AUG-2020 10:39, No significant change Confirmed by Oli Holguin ([id number]) on 09/30/2020 11:29:30 PM Referred By: REFERRED SELF Confirmed By:Oli Holguin
[2020-10-01] MEDS ORDERED: PHARMACIST DISCHARGE MED REC CONSULT PRN (00:14)
[2020-10-01] MEDS ORDERED: DEXTROSE 50% 50 ML SYRINGE IV PRN (00:14)
[2020-10-01] MEDS ORDERED: SENNA 8.6 MG TAB PO PRN (00:14)
[2020-10-01] MEDS ORDERED: CARBOHYDRATES FOR HYPOGLYCEMIA PO PRN (00:14)
[2020-10-01] MEDS ORDERED: GLUCOSE 40% GEL 15 GM TUBE PO PRN (00:14)
[2020-10-01] MEDS ORDERED: GLUCAGON FOR INJ 1 MG VIAL SQ PRN (00:14)
[2020-10-01] MEDS ORDERED: bisacodyL 10 MG SUPP PR PRN (00:14)
[2020-10-01] MEDS ORDERED: GLUCOSE 10 TABS/TUBE PO PRN (00:14)
[2020-10-01] MEDS: INSULIN ASPART 100 UNITS/ML 3 ML PEN SC SCH ×5 (02:54→21:16)
[2020-10-01] MEDS: CITALOPRAM 20 MG TAB PO SCH ×2 (03:02→21:49)
[2020-10-01] MEDS: FAMOTIDINE 40 MG TABLET PO SCH ×3 (03:02→21:49)
[2020-10-01] MEDS: ATORVASTATIN 40 MG TAB PO SCH ×2 (03:03→21:52)
--- NOTE | 2020-10-01 08:12 | Hospitalist Progress Note ---
Date of Service October 01, 2020 Assessment & Plan (1) History of cerebrovascular accident: Patient with long history of CVA events continue optimizing therapy. Reviewed patients care with Neurology, see most recent progress notes. IOT determine additonal care paths discussed with the patient's spouse. She felt Miguel would like to continue all care and evaluation. Prior to his hip fracture she reports he was walking within their home with their walker. She has only seen him twice since July due to hospital admissions and admission for Rehab to [facility]. We reviewed his current worsening health status and the unlikely nature testing would change the treatment. She was clear on proceeding with treatment as her husbands goal is to get back home. We reviewed unlikelihood of this happening with his current restrictions. She is his primary caregiver. Proceed with testing as ecommended by Neurology : MRI BRain w/o contrast EEG Vitamin B12 and Keppra levels Continue clopidogrel and statin therapy. Monitor BP ongoing PT/OT eval (2) Hypertension: continue close monitoring with Goal of MAP 95-100 restart amlodipine 2.5 mg now and qam. Hold for Systolic <130 (3) Aphasia: Severe expressive aphasia (4) ESRD on dialysis: Review of Nephrology Notes. No change in management -Continue calcitriol -Continue Nephrocaps (5) Hypercholesteremia: As above optimized medically continue supportive care and lipid therapy (6) Hip fracture: acutely repaired last month. Patient had follow up with Ortho recently. Assist with transfers and strict fall precautions and assists with all transfers. (7) Seizure: Patient administered Keppra in the ER. No witnessed seizure activity -Continue Keppra 500mg po q Saturday, , Saturday, Saturday Planned Keppra levels ordered. (8) Depression: Chronic -Continue Celexa 10mg po qHS. Patient had mention of additional dose of Celexa 20mg po qAM. Per record review and discussion with pharmacy it does not seem that he has filled this prescription for some time. His home dose should be clarified prior to discharge. For now will continue 10mg po qHS. (9) GERD (gastroesophageal reflux disease): Chronic. -Continue Pepcid 40mg po BID (10) Diabetes mellitus, type 2: Blood sugar well controlled -Hold oral agents - Glipizide -ISS. Goal blood sugar 100 - 140 Admission and Anticipated Discharge Date Admission Date: September 30, 2020 Subjective Due to the patients hx of CVA with aphasia and most recent symptoms of CVA vs SZ, little history obtained. Pt did not complain of pain. Reported eating small portion of meals. Review of Systems Review of Systems: Unobtainable due to cognitive status Physical Exam Physical Exam: awake poor communication Respiratory: Effort normal, CTA B/L CV: RRR, no murmur, no edema Abdomen: normal bowel sounds, soft, nontender, no hepatosplenomegaly Neurologic: aphasia, no movements in LE b/l, retracted rt arm nml strength in the left arm Results & Data Results & Data ([facility]) Vital Signs (Past 12 Hours) Vital Signs Temp Pulse Pulse Resp BP BP Pulse Ox 10/01/20 07:22 36.9 C 95 H 18 169/84 H 98 10/01/20 03:25 36.8 C 100 H 18 176/116 H 94 10/01/20 00:00 36.8 C 86 18 146/92 H 99 09/30/20 22:00 81 16 155/96 H 98 09/30/20 21:43 88 15 93 09/30/20 21:42 96 H 21 167/107 H 98 09/30/20 21:30 101 H 19 09/30/20 21:00 97 H 22 09/30/20 20:31 98 H 16 09/30/20 20:30 95 H 19 183/113 H 09/30/20 20:15 87 19 Laboratory Results Laboratory Results - last 24 hr 09/30/20 09/30/20 09/30/20 14:56 14:56 14:56 WBC 7.90 RBC 3.10 L Hgb 9.6 L Hct 32.2 L MCV 103.9 H MCH 31.0 MCHC 29.8 L RDW Std Deviation 67.0 H RDW Coeff of Shayy 17.8 H Plt Count 320 MPV 9.4 Immature Gran % (Auto) 0.1 Neut % (Auto) 66.0 Lymph % (Auto) 19.1 [place] % (Auto) 13.5 Eos % (Auto) 1.0 Baso % (Auto) 0.3 Neut # (Auto) 5.21 Lymph # (Auto) 1.51 [place] # (Auto) 1.07 H Eos # (Auto) 0.08 Baso # (Auto) 0.02 Immature Gran # (Auto) 0.01 PT 10.9 INR 1.0 APTT 31.0 PTT Ratio 1.1 Sodium Potassium Chloride Carbon Dioxide Anion Gap BUN Creatinine Est Cr Clr Drug Dosing Est GFR ( Amer) Est GFR (Non-Af Amer) BUN/Creatinine Ratio Glucose POC Glucose Calcium Magnesium Total Bilirubin AST ALT Alkaline Phosphatase Troponin I Total Protein Albumin Globulin Albumin/Globulin Ratio COVID-19 Eval Order SARS-CoV-2, RNA, NAAT Blood Type A Positive Antibody Screen NEGATIVE 09/30/20 09/30/20 09/30/20 14:56 19:08 19:08 WBC RBC Hgb Hct MCV MCH MCHC RDW Std Deviation RDW Coeff of Shayy Plt Count MPV Immature Gran % (Auto) Neut % (Auto) Lymph % (Auto) [place] % (Auto) Eos % (Auto) Baso % (Auto) Neut # (Auto) Lymph # (Auto) [place] # (Auto) Eos # (Auto) Baso # (Auto) Immature Gran # (Auto) PT INR APTT PTT Ratio Sodium 139 Potassium 3.5 Chloride 100 Carbon Dioxide 36 H Anion Gap 3.0 BUN 10 Creatinine 1.68 H Est Cr Clr Drug Dosing 31.8 Est GFR ( Amer) 45.4 Est GFR (Non-Af Amer) 39.1 BUN/Creatinine Ratio 5.9 L Glucose 96 POC Glucose Calcium 7.6 L Magnesium 2.2 Total Bilirubin 0.5 AST 30 ALT 24 Alkaline Phosphatase 93 Troponin I 0.056 H* Total Protein 6.6 Albumin 2.3 L Globulin 4.3 H Albumin/Globulin Ratio 0.5 L COVID-19 Eval Order Covid19 IDNow [facility] SARS-CoV-2, RNA, NAAT NEGATIVE Blood Type Antibody Screen 10/01/20 10/01/20 01:36 07:17 WBC RBC Hgb Hct MCV MCH MCHC RDW Std Deviation RDW Coeff of Shayy Plt Count MPV Immature Gran % (Auto) Neut % (Auto) Lymph % (Auto) [place] % (Auto) Eos % (Auto) Baso % (Auto) Neut # (Auto) Lymph # (Auto) [place] # (Auto) Eos # (Auto) Baso # (Auto) Immature Gran # (Auto) PT INR APTT PTT Ratio Sodium Potassium Chloride Carbon Dioxide Anion Gap BUN Creatinine Est Cr Clr Drug Dosing Est GFR ( Amer) Est GFR (Non-Af Amer) BUN/Creatinine Ratio Glucose POC Glucose 164 H 117 H Calcium Magnesium Total Bilirubin AST ALT Alkaline Phosphatase Troponin I Total Protein Albumin Globulin Albumin/Globulin Ratio COVID-19 Eval Order SARS-CoV-2, RNA, NAAT Blood Type Antibody Screen Medications Administered Current Inpatient Medications Acetaminophen (Acetaminophen 325 Mg Tab) 650 mg PO Q6H PRN PRN Reason: Fever Or Pain Stop: 10/31/20 00:13 Atorvastatin Calcium (Atorvastatin 40 Mg Tab) 80 mg PO HS SEE Stop: 10/31/20 00:13 Last Admin: 10/01/20 03:03 Dose: 80 mg Documented by: Bisacodyl (Bisacodyl 10 Mg Supp) 10 mg IN DAILY PRN PRN Reason: Constipation Stop: 10/31/20 00:13 Calcitriol (Calcitriol 0.25 Mcg Capsule) 0.25 mcg PO MoWeFr [facility] Stop: 11/02/20 08:59 Citalopram Hydrobromide (Citalopram 20 Mg Tab) 10 mg PO HS [facility] Stop: 10/31/20 00:59 Last Admin: 10/01/20 03:02 Dose: 10 mg Documented by: Clopidogrel Bisulfate (Clopidogrel Bisulfate 75 Mg Tab) 75 mg PO DAILY SEE Stop: 10/31/20 08:59 Dextrose (Dextrose 50% 50 Ml Syringe) 25 - 50 ml IV UD PRN; Protocol PRN Reason: Hypoglycemia Protocol Stop: 10/31/20 00:13 Docusate Sodium (Docusate Sodium 100 Mg Cap) 100 mg PO DAILY SEE Stop: 10/31/20 08:59 Famotidine (Famotidine 40 Mg Tablet) 40 mg PO BID SEE Stop: 10/31/20 01:14 Last Admin: 10/01/20 03:02 Dose: 40 mg Documented by: Glucagon (Glucagon For Inj 1 Mg Vial) 1 mg SQ UD PRN; Protocol PRN Reason: Hypoglycemia Protocol Stop: 10/31/20 00:13 Glucose (Glucose 10 Tabs/Tube) 4 - 8 tabs PO UD PRN; Protocol PRN Reason: Hypoglycemia Protocol Stop: 10/31/20 00:13 Glucose (Glucose 40% Gel 15 Gm Tube) 15 - 30 gm PO UD PRN; Protocol PRN Reason: Hypoglycemia Protocol Stop: 10/31/20 00:13 Insulin Aspart (Insulin Aspart 100 Units/Ml 3 Ml Pen) 0 units SC ACHS [facility] Stop: 10/31/20 01:14 Last Admin: 10/01/20 02:54 Dose: 1 units Documented by: Levetiracetam (Levetiracetam 500 Mg Tab) 500 mg PO SuTuThSa [facility] Stop: 10/31/20 08:59 Miscellaneous (Carbohydrates For Hypoglycemia ) 15 - 30 gm PO UD PRN PRN Reason: Hypoglycemia Protocol Stop: 10/31/20 00:13 Miscellaneous Information (Pharmacist Discharge Med Rec Consult) 1 ea N/A UD PRN PRN Reason: Consult Stop: 10/31/20 00:13 Sennosides (Senna 8.6 Mg Tab) 8.6 mg PO Q48H PRN PRN Reason: Constipation Stop: 10/31/20 00:13 Vitamin B Complex/Folic Acid (Nephrocaps) 1 cap PO QAM [facility] Stop: 10/31/20 08:59 PG Care Time/CCT Total # of Minutes Spent Total Time Spent with Patient: Total time spent is greater than 50% in coordination of care (as documented) at patient's floor/unit and/or counseling patient: Coding Level of Care Code 09296 Subseq Hosp Care Lvl 3 Diagnoses History of cerebrovascular accident Z86.73 Hypertension I10 Aphasia R47.01 ESRD on dialysis N18.6; Z99.2 Hypercholesteremia E78.00 Hip fracture S72.009A Seizure R56.9 Depression F32.9 Depression Type: unspecified GERD (gastroesophageal reflux disease) K21.9 Esophagitis presence: esophagitis presence not specified Diabetes mellitus, type 2 E11.9 (1) Depression Depression Type: unspecified Qualified Code(s): F32.9 - Major depressive disorder, single episode, unspecified (2) GERD (gastroesophageal reflux disease) Esophagitis presence: esophagitis presence not specified Qualified Code(s): K21.9 - Gastro-esophageal reflux disease without esophagitis
--- NOTE | 2020-10-01 08:24 | Neurology Consultation ---
Date of Consultation October 01, 2020 Assessment & Plan (1) Seizure: (2) Aphasia: (3) History of cerebrovascular accident: (4) Dementia: (5) Hemiparesis: (6) Bilateral leg weakness: (7) Carotid occlusion, left: this is a complicated patient neurologically. He has a history of large left middle cerebral artery stroke in 2008 resulting in some right skyler paresis and aphasia. over time, given his extensive vascular changes and atrophy as well as his stroke he has developed dementia of a significant nature. In addition, because of the stroke he has acquired a seizure disorder, which is fairly well controlled with levetiracetam. He has had 3 episodes (including this event) of hospital admission within the last year due to "unresponsive" episodes during, or just after, dialysis. These either have something to do with hemodynamic changes with dialysis or seizures. He has a history of bilateral carotid endarterectomy, with reocclusion of the left noted in 2008 he has had coronary artery disease post bypass graft and aortofemoral bypass grafting. therefore, he has significant vascular disease diffusely. He has paralysis and both legs. I found a note from Orthopedics last week showing right lower extremity paralysis since the hip fracture in August of 2020 but I cannot find any information 1 way or the other regarding his left leg. I know he has been wheelchair-bound but I can't find any evidence of paralysis of both legs specifically. The patient has lower motor neuron changes in the legs with diffuse atrophy and lack reflexes. He has known diabetic polyneuropathy this should not make his legs paralyzed. This could be consistent with a lumbosacral spine issue superimposed on the neuropathy. Overall his prognosis is very poor and he has had multiple admissions with multiple tests and still ends up with the same baseline state. His neurologic conditions are not going to improve and will likely worsen with time. He has multiple risk factors for stroke including hypertension, active cigarette smoking, diabetes, and dyslipidemia. He is on clopidogrel. Total cholesterol is 101 and triglycerides were 122 today. Hemoglobin A1c is pending. Recommendations: 1. consult with the patient's family to see if aggressive testing is desired. 2. If aggressive testing is desired, obtain an MRI of the brain without contrast, an EEG, B12 level (anemia with elevated MCV), and a levetiracetam level. We also could consider CT angiography of the head and neck. even if we did this testing, however, I am not certain what could be done for this patient anyway. If aggressive testing is not desired, I would just obtain the 2 laboratory studies listed. 3. Continue clopidogrel 75 milligrams daily and control risk factors. control blood pressure, aiming for a mean arterial pressure of 95-100. Discontinue cigarette smoking. Continue statin at the same dose. He is not a high dose statin candidate. 4. continue levetiracetam at the current dose adjusting only after the level is back. overall, I spent a total of 120 minutes with this case including review of records, review of MRI and CT films, direct evaluation the patient at bedside, and discussion of the case with the patient at bedside, RN at bedside, Dr. Muniz, and Dr. Rodriguez, including differential diagnosis and treatment options. History of Present Illness Reason for Consultation: Patient is a 75-year-old, who I was asked to see at the request of Dr. Melendrez, for neurologic consultation regarding stroke versus Requesting Physician: Dr. Melendrez Attending Physician: Thomas Arauz, DO History of Present Illness this patient has a long and complicated past medical history. Patient has a history of coronary artery disease status post coronary artery bypass graft in 2007 and an MRI. He has a history of congestive heart failure, hypertension, diabetes, and dyslipidemia. He has a polyneuropathy currently secondary to the diabetes. He has multiple vascular issues and underwent left carotid endarterectomy in 1998. in 2008 he had an aortofemoral bypass grafting in 2008 and a right carotid endarterectomy. At that time they noted that the left internal carotid artery had re-occluded. I 1st saw this patient in May of 2010 when he had the onset of aphasia and right hemiplegia due to a large left middle cerebral artery distribution stroke. He was left with right-sided weakness, word-finding difficulties and developed memory issues/dementia over the next several years. The dementia is significant currently. In August of 2010 then again in February of 2011 he had significant seizures was seen by Dr. Chávez each time. He was put on and later switched to levetiracetam. It was felt the seizures were due to his previous left middle cerebral artery distribution stroke. Patient developed end-stage renal disease started getting hemodialysis, followed by Dr. Muniz. He saw Dr. Shell in November of 2019 and then again in June 2020, for "unresponsive" episodes during hemodialysis. He had no additional stroke and it was felt to be due to cardiovascular changes with "hemodialysis disequilibrium syndrome". In January of 2020 an MRI of the brain showed no acute stroke, the large old left frontoparietal stroke and old ischemic disease of an extensive nature bilaterally. There was significant atrophy in general as well. I reviewed this film. Most recent levetiracetam level was on April 16, 2020 and was 16.4 ( normal 12-46). In August of 2020 the patient fell and fractured his right hip requiring surgery. Following this it seems like he has been wheelchair bound and not willing to move the lower extremities, particularly the right. He is a resident up [facility] while undergoing dialysis on September 30 the patient had the sudden episode of right gaze deviation, altered mental status, and inability to speak. I cannot ascertain how long this lasted for but by the time he got to the hospital he improved markedly and there is a note by nursing at 15:30 the dialysis nursing staff felt that he was back to baseline With mental status and physical exam. He arrived at the emergency room on September 30 at 1456 with a temperature of 37.5, pulse 84, respiratory rate 22, blood pressure 151/79, and O2 saturation [address] scan of the head showed old ischemic disease and no acute changes. Tele stroke evaluation with [facility] suggested no tPA since the patient was improved to baseline. CBC showed anemia and elevated MCV and Chem profile showed elevated creatinine. He was noted the emergency room to not be moving his legs. Nursing reports no seizure activity overnight. He has had no further events. Blood pressures been elevated since admission and has most recently 169/84. Monitoring overnight reveals PVCs and PACs with a block consistent with Mobitz type 1 with a rate 70s to 100. Allergies Allergy/AdvReac Type Severity Reaction Status Date / Time adhesive Allergy Unknown BLISTERING Verified 09/28/20 08:23 OF SKIN latex Allergy Unknown Rash Verified 09/28/20 08:23 Home Medications Medication Instructions Recorded Confirmed Type Renal Caps 1 cap PO QAM #30 cap 11/20/19 09/30/20 Rx polyethylene glycol 3350 [Miralax] 17 gm PO DAILY #0 ea 12/04/19 09/30/20 Rx atorvastatin [Lipitor] 80 mg PO HS 02/18/20 09/30/20 History clopidogrel [Plavix] 75 mg PO DAILY 02/18/20 09/30/20 History levetiracetam [Keppra] 500 mg PO 4XWK 02/18/20 09/30/20 History famotidine 40 mg tablet 40 mg PO BID #180 tab 03/01/20 09/30/20 Rx docusate sodium [Stool Softener] 100 mg PO DAILY 04/13/20 09/30/20 History isosorbide mononitrate 60 mg 60 mg PO DAILY #30 tab 06/07/20 09/30/20 Rx tablet,extended release 24 hr calcitriol 0.25 mcg capsule 0.25 mcg PO 3XWK #15 cap 08/09/20 09/30/20 Rx glipizide 2.5 mg PO QAM 08/22/20 09/30/20 History citalopram 10 mg tablet 10 mg PO HS #30 tab 09/05/20 09/30/20 Rx acetaminophen 650 mg PO Q6H PRN MDD 3000 MG 09/30/20 09/30/20 History APAP/24 HOURS amlodipine [Norvasc] 2.5 mg PO HS 09/30/20 09/30/20 History bisacodyl [Dulcolax (bisacodyl)] 10 mg DE DIRECTED PRN 09/30/20 09/30/20 History hydrocortisone [Proctosol HC] 1 appln DE Q24H PRN 09/30/20 09/30/20 History magnesium hydroxide [Milk of 30 ml PO DIRECTED PRN 09/30/20 09/30/20 History Magnesia] mineral oil [Enema] 118 ml DE DIRECTED PRN 09/30/20 09/30/20 History sennosides [Senokot] 8.6 mg PO Q48H PRN 09/30/20 09/30/20 History Patient History Medical History Benign prostatic hyperplasia CAD (coronary artery disease) s/p CABG 2007 Carotid artery stenosis s/p remote R & L endarterectomies with L re-occlusion sometime before 2010. Being monitored by [facility] neuro, on Plavix. Chronic kidney disease Congestive heart failure (CHF) Dementia Depression Diabetes mellitus, type 2 A1C 5.4% 11/2019. Not on any medication. Diabetic peripheral neuropathy Esophageal reflux Flash pulmonary edema 11/2019 Hemodialysis patient SAT/SAT/SATURDAY [facility] 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 (1 YEAR AFTER [place]) ? Hyperlipidemia Hypertension Memory problem PT REPORTS "DEMENTIA" "COMES AND GOES" Myocardial Infarction 1989? Renal artery stenosis s/p left renal artery stenting; moderate right renal artery stenosis but no significant left renal artery stenosis on 11/2019 duplex Seizure disorder Stable on Keppra, no seizure for "a long time." Follows with [facility] neurology. SNHL (sensorineural hearing loss) Surgical History History of aorto-femoral bypass History of bypass graft (non vein) Aortic-femoral or bifemoral History of carotid endarterectomy L 1998, R 2009 History of cataract surgery RT/LEFT History of colonoscopy History of esophagogastroduodenoscopy (EGD) History of tooth extraction History of vascular access device IJ FOR DIAYLSIS S/P CABG (coronary artery bypass graft) (2007) [facility] Family History Brother Hypertension Hypercholesteremia Sister Diabetes Unknown Hypertension Cardiac disorder Social History Smoking Status: Current every day smoker Tobacco Type: Cigarettes Cigarettes Per Day: 30; Second Hand Exposure: No; Hx Alcohol Use: No (unable to assess at this time) Hx Substance Use: No (unable to assess at this time) Preferred Language: Tristanian Communication Ability: Effective Visual Impairment: No Limitations Operations And Maintenance Specialist Required: No Beliefs That Will Affect Care: None marital status: Current Living Situation: Spouse and Long Term Current Living Situation Comment: at [facility] current occupational status: 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 He does not seem to be dizzy but he cannot really answer questions about how he is doing or feeling. He tends to "nod yes" to everything I ask him, but then he will state "no" at times. Exam (Neuro) Physical Exam: The patient is right-handed. The patient is awake, alert, and attentive. Speech is Mildly dysarthric with repeating test phrases and he is clearly aphasic. He has elements of receptive and expressive components. He cannot name objects well. When he tries to read sentences he picks out a word or 2 but not the complete sentence. He tends to perseverate on a word also. He knew his name but thought that he was 30 years old and it was October of 2019. he could imitate but he really did not follow one-step commands verbally very well. He seems to be pleasant and cooperative and in a good mood. The discs are sharp with positive venous pulsations bilaterally. Pupils are 3 mm bilaterally and reactive to light. Extraocular eye muscles are intact without nystagmus. Visual acuity and visual prieto seem normal grossly to confrontation. There are no deficits to sensation in the face in all 3 distributions of the fifth cranial nerve bilaterally. Corneal reflexes are positive bilaterally. Facial strength and symmetry was normal bilaterally. Hearing Is decreased bilaterally. Palate moves well without asymmetry. There is normal sternocleidomastoid and trapezius (shoulder shrug) strength bilaterally. Tongue is midline with weak strength bilaterally. Neck has a full range of motion without discomfort. There are no cervical bruits bilaterally. There are no cranial or ocular bruits. Gait is not tested and stance sitting up in bed is somewhat poor. He can hold his left arm out without obvious drift and has no obvious ataxia with [id number] testing. The right upper extremity is held in a flexed posture. There is decreased facility in both hands. There are no resting, postural, or action tremors. The right upper extremity is held in a flexed contracted position. The legs are extended and have decreased tone. 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 Leg strength is 0/5 bilaterally. Sensory examination Seems intact in all 4 limbs. He does not withdraw the legs but he feels the pain bilaterally. Reflexes are 2/4 in the biceps, triceps, And brachioradialis tendons bilaterally. quadriceps and Achilles tendon reflexes are absent bilaterally. There is no clonus bilaterally. Toes are Neutral with plantar stimulation bilaterally. Peripheral pulses are present and of normal quality distally in all 4 limbs. There is no peripheral edema noted in the limbs. Results & Data ([facility]) Vital Signs (Past 12 Hours) Vital Signs Temp Pulse Pulse Resp BP BP Pulse Ox 10/01/20 07:22 36.9 C 95 H 18 169/84 H 98 10/01/20 03:25 36.8 C 100 H 18 176/116 H 94 10/01/20 00:00 36.8 C 86 18 146/92 H 99 09/30/20 22:00 81 16 155/96 H 98 09/30/20 21:43 88 15 93 09/30/20 21:42 96 H 21 167/107 H 98 09/30/20 21:30 101 H 19 09/30/20 21:00 97 H 22 09/30/20 20:31 98 H 16 09/30/20 20:30 95 H 19 183/113 H PG Care Time/CCT Total # of Minutes Spent Total Time Spent with Patient: Total time spent is greater than 50% in coordination of care (as documented) at patient's floor/unit and/or counseling patient: Coding Level of Care Code 29114 OBS Care - Level 3 Diagnoses Seizure R56.9 Aphasia R47.01 History of cerebrovascular accident Z86.73 Dementia F03.90 Hemiparesis G81.90 Bilateral leg weakness R29.898 Carotid occlusion, left I65.22 Time Spent (min) 120 Comment At extra time (38017 and 11940) to the 01893
--- NOTE | 2020-10-01 08:31 | XRay Report ---
XR chest 1V portable CLINICAL HISTORY: patient pulling at perm cath; dislodged? COMPARISON STUDY: Chest radiograph August 24, 2020. FINDINGS: Dual lumen right sided central venous catheter is unchanged in position. There is no pneumo thorax. Trace left pleural effusion is noted. There are mild bibasilar opacities. There is interstiti al thickening suggestive of mild pulmonary edema. IMPRESSION: 1. No change in position of a dual lumen right sided central venous catheter. 2. Interval development of interstitial thickening consistent with mild edema. 3. Mild bibasilar opacities and a trace left pleural effusion. ACT 112: Negative or not required by law. Electronically signed by: Madan Mancilla M.D. 10/01/2020 8:30 AM
[2020-10-01] MEDS: CLOPIDOGREL BISULFATE 75 MG TAB PO SCH (08:41)
[2020-10-01] MEDS: NEPHROCAPS PO SCH (08:42)
[2020-10-01] MEDS: DOCUSATE SODIUM 100 MG CAP PO SCH (08:42)
[2020-10-01] MEDS: ACETAMINOPHEN 325 MG TAB PO PRN (08:45)
[2020-10-01] MEDS ORDERED: CITALOPRAM 20 MG TAB PO SCH (09:00)
[2020-10-01 09:16] LABS: Basophils # (auto) 0.02 K/uL (0-0.2); Basophils % (auto) 0.3 %; Eosinophils # (auto) 0.09 K/uL (0-0.5); Eosinophils % (auto) 1.1 %; Hematocrit (blood only) 33.3 % (42-52); Hemoglobin 10.1 g/dL (14.0-18.0); Immature Granulocytes # (auto) 0.01 K/uL (0.00-0.02); Immature Granulocytes % (auto) 0.1 %; Lymphocytes # (auto) 1.24 K/uL (1.2-3.4); Lymphocytes % (auto) 15.8 %; Mean Corpuscular Hemoglobin 31.3 pg (25-34); Mean Corpuscular Hgb Conc 30.3 g/dL (32-36); Mean Corpuscular Volume 103.1 fL (80-100); Mean Platelet Volume 9.9 fL (7.4-10.4); Monocytes # (auto) 0.97 K/uL (0.11-0.59); Monocytes % (auto) 12.4 %; Neutrophils # (auto) 5.52 K/uL (1.4-6.5); Neutrophils % (auto) 70.3 %; Nucleated RBC # (auto) 0.02 K/uL (0-0); Nucleated RBC % (auto) 0.3 %; Platelet Count 406 K/uL (130-400); RDW Coefficient of Variation 17.6 % (11.5-14.5); RDW Standard Deviation 65.4 fL (36.4-46.3); Red Blood Count 3.23 M/uL (4.7-6.1); White Blood Count 7.85 K/uL (4.8-10.8)
[2020-10-01 09:25] LABS: INR 1.1 (0.9-1.1); Prothrombin Time 11.4 Seconds (9.0-12.0)
[2020-10-01 09:43] LABS: BUN Creatinine Ratio 6.2 (10-20); Calcium 8.5 mg/dl (8.5-10.1); Creatinine Clr Calc Pharmacy 21.2 ml/min; Est GFR (African American) 27.8; Magnesium 2.2 mg/dl (1.8-2.4); Potassium 3.2 mmol/L (3.5-5.1)
[2020-10-01] MEDS: levETIRAcetam 500 MG TAB PO SCH (09:46)
[2020-10-01 10:42] LABS: Estimated Average Glucose 68 mg/dl
--- NOTE | 2020-10-01 11:15 | Nephrology Consultation ---
Date of Consultation October 01, 2020 Assessment & Plan (1) ESRD on hemodialysis: Mr. Mata has end-stage renal disease, has been on hemodialysis Saturday, Saturday, Saturday. Admitted with changes in mental status with concern over acute CVA versus seizure episode. Currently BP, volume status, electrolyte acceptable. Had Hemodialysis yesterday. - continued Nephrocaps and renal diet --Epogen with HD Saturday --dose medications for GFR less than 10 --left arm nephrology precaution ( AVF) --w/u for AMS as outlined in detailed by Dr. Gray Will follow (2) History of cerebrovascular accident: (3) Seizure: (4) Anemia: History of Present Illness Reason for Consultation: ESRD on hemodialysis, admitted with altered mental status. Attending Physician: Thomas Arauz DO History of Present Illness Miguel Mata is a 75-year-old gentlemen with past medical history significant for ESRD on HD, prior CVA, hypertension, diabetes, CHF and h/o repeated fall admitted to the hospital with AMS, possible new CVA vs seizure. Nephrology consult was requested to manage hemodialysis while inpatient. Electronic medical records including labs and imaging reviewed in detail during patient's visit. Mr. Mata was brought to the Emergency Room from dialysis center after an episode of staring and then aphasia near the end of HD yesterday. He was noted to have transient right gaze preference. Shortly after arrival to ER he began to talk again and seemed to be close to his baseline. He has significant cognitive deficit and aphasia at baseline with prior history of stroke and rt UE weakness. However, he seems to have new left LE weakness. CT head was negative for any new findings. End-stage renal disease secondary to renovascular disease, has been on hemodialysis via right IJ tunneled dialysis catheter at [facility] on Saturday, Saturday, Saturday, has left BC AVF but not in use with h/o repeated infiltration with movement during HD. Had dialysis yesterday prior to arrival to ER, currently blood pressure, volume status and electrolyte acceptable. Clinically he seems to be at his baseline although the lower extremity weakness specially left lower extremity weakness seems to be new. Allergies Allergy/AdvReac Type Severity Reaction Status Date / Time adhesive Allergy Unknown BLISTERING Verified 09/28/20 08:23 OF SKIN latex Allergy Unknown Rash Verified 09/28/20 08:23 Home Medications Medication Instructions Recorded Confirmed Type Renal Caps 1 cap PO QAM #30 cap 11/20/19 09/30/20 Rx polyethylene glycol 3350 [Miralax] 17 gm PO DAILY #0 ea 12/04/19 09/30/20 Rx atorvastatin [Lipitor] 80 mg PO HS 02/18/20 09/30/20 History clopidogrel [Plavix] 75 mg PO DAILY 02/18/20 09/30/20 History levetiracetam [Keppra] 500 mg PO 4XWK 02/18/20 09/30/20 History famotidine 40 mg tablet 40 mg PO BID #180 tab 03/01/20 09/30/20 Rx docusate sodium [Stool Softener] 100 mg PO DAILY 04/13/20 09/30/20 History isosorbide mononitrate 60 mg 60 mg PO DAILY #30 tab 06/07/20 09/30/20 Rx tablet,extended release 24 hr calcitriol 0.25 mcg capsule 0.25 mcg PO 3XWK #15 cap 08/09/20 09/30/20 Rx glipizide 2.5 mg PO QAM 08/22/20 09/30/20 History citalopram 10 mg tablet 10 mg PO HS #30 tab 09/05/20 09/30/20 Rx acetaminophen 650 mg PO Q6H PRN MDD 3000 MG 09/30/20 09/30/20 History APAP/24 HOURS amlodipine [Norvasc] 2.5 mg PO HS 09/30/20 09/30/20 History bisacodyl [Dulcolax (bisacodyl)] 10 mg MI DIRECTED PRN 09/30/20 09/30/20 History hydrocortisone [Proctosol HC] 1 appln MI Q24H PRN 09/30/20 09/30/20 History magnesium hydroxide [Milk of 30 ml PO DIRECTED PRN 09/30/20 09/30/20 History Magnesia] mineral oil [Enema] 118 ml MI DIRECTED PRN 09/30/20 09/30/20 History sennosides [Senokot] 8.6 mg PO Q48H PRN 09/30/20 09/30/20 History Patient History Medical History Benign prostatic hyperplasia CAD (coronary artery disease) s/p CABG 2007 Carotid artery stenosis s/p remote R & L endarterectomies with L re-occlusion sometime before 2010. Being monitored by [facility] neuro, on Plavix. Chronic kidney disease Congestive heart failure (CHF) Dementia Depression Diabetes mellitus, type 2 A1C 5.4% 11/2019. Not on any medication. Diabetic peripheral neuropathy Esophageal reflux Flash pulmonary edema 11/2019 Hemodialysis patient SAT/SAT/SATURDAY [facility] 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 (1 YEAR AFTER [place]) ? Hyperlipidemia Hypertension Memory problem PT REPORTS "DEMENTIA" "COMES AND GOES" Myocardial Infarction 1989? Renal artery stenosis s/p left renal artery stenting; moderate right renal artery stenosis but no significant left renal artery stenosis on 11/2019 duplex Seizure disorder Stable on Keppra, no seizure for "a long time." Follows with [facility] neurology. SNHL (sensorineural hearing loss) Surgical History History of aorto-femoral bypass History of bypass graft (non vein) Aortic-femoral or bifemoral History of carotid endarterectomy L 1998, R 2009 History of cataract surgery RT/LEFT History of colonoscopy History of esophagogastroduodenoscopy (EGD) History of tooth extraction History of vascular access device IJ FOR DIAYLSIS S/P CABG (coronary artery bypass graft) (2007) [facility] Family History Brother Hypertension Hypercholesteremia Sister Diabetes Unknown Hypertension Cardiac disorder Social History Smoking Status: Current every day smoker Tobacco Type: Cigarettes Cigarettes Per Day: 30; Second Hand Exposure: No; Hx Alcohol Use: No (unable to assess at this time) Hx Substance Use: No (unable to assess at this time) Preferred Language: Vietnamese Communication Ability: Effective Visual Impairment: No Limitations Certified Detention Deputy Required: No Beliefs That Will Affect Care: None marital status: Current Living Situation: Spouse and Detention Current Living Situation Comment: at [facility] current occupational status: 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" Feels Safe at Home: Yes Safety Concerns: Feels Safe At This Time caffeine: No Seatbelt Use: always Assistive Devices: BiPap, Glasses and Oxygen - Continuous Review of Systems Review of Systems: Other Physical Exam Constitutional: WD/WN, vitals as above + ill appearing; no acute distress Eyes: + anicteric sclerae Neck: trachea midline Respiratory: normal respiratory effort, lungs clear to auscultation no cough Auscultation: no crackles, no rales and no wheezes Cardiovascular: RRR, no murmur, no edema Gastrointestinal (Abdomen): normal bowel sounds, soft, nontender, no hepatosplenomegaly Percussion/Palpation: abdomen nontender, no guarding and abdomen not rigid Musculoskeletal: Head/Neck/Chest: normocephalic and head atraumatic Skin: no rashes, warm and dry Neurologic: + focal motor deficit (weakness of b/l LE and rt UE) and awake Psychiatric: Orientation: alert Results & Data ([facility]) Vital Signs (Past 12 Hours) Vital Signs Temp Pulse Resp BP BP Pulse Ox 10/01/20 11:08 36.9 C 80 18 138/83 96 10/01/20 07:22 36.9 C 95 H 18 169/84 H 98 10/01/20 03:25 36.8 C 100 H 18 176/116 H 94 10/01/20 00:00 36.8 C 86 18 146/92 H 99 PG Care Time/CCT Total # of Minutes Spent Total Time Spent with Patient: Total time spent is greater than 50% in coordination of care (as documented) at patient's floor/unit and/or counseling patient: Coding Level of Care Code 77128 Inpt Consult Level 5 Diagnoses ESRD on hemodialysis N18.6; Z99.2 History of cerebrovascular accident Z86.73 Seizure R56.9 Anemia D64.9
[2020-10-01] MEDS: amLODIPine BESYLATE 5 MG TAB PO SCH (20:14)
[2020-10-02] MEDS: CLOPIDOGREL BISULFATE 75 MG TAB PO SCH (09:07)
[2020-10-02] MEDS: FAMOTIDINE 40 MG TABLET PO SCH ×2 (09:07→21:53)
[2020-10-02] MEDS: levETIRAcetam 500 MG TAB PO SCH (09:07)
[2020-10-02] MEDS: amLODIPine BESYLATE 5 MG TAB PO SCH (09:07)
[2020-10-02] MEDS: NEPHROCAPS PO SCH (09:07)
[2020-10-02] MEDS: DOCUSATE SODIUM 100 MG CAP PO SCH (09:08)
[2020-10-02] MEDS: ACETAMINOPHEN 325 MG TAB PO PRN (09:09)
[2020-10-02] MEDS: INSULIN ASPART 100 UNITS/ML 3 ML PEN SC SCH ×4 (09:24→21:28)
[2020-10-02 09:25] LABS: Basophils # (auto) 0.01 K/uL (0-0.2); Basophils % (auto) 0.1 %; Eosinophils % (auto) 1.3 %; Hematocrit (blood only) 31.2 % (42-52); Hemoglobin 9.4 g/dL (14.0-18.0); Immature Granulocytes # (auto) 0.02 K/uL (0.00-0.02); Immature Granulocytes % (auto) 0.3 %; Lymphocytes # (auto) 1.33 K/uL (1.2-3.4); Lymphocytes % (auto) 16.9 %; Mean Corpuscular Hemoglobin 31.5 pg (25-34); Mean Corpuscular Hgb Conc 30.1 g/dL (32-36); Mean Corpuscular Volume 104.7 fL (80-100); Mean Platelet Volume 9.7 fL (7.4-10.4); Monocytes # (auto) 0.83 K/uL (0.11-0.59); Monocytes % (auto) 10.5 %; Neutrophils % (auto) 70.9 %; Nucleated RBC # (auto) 0.03 K/uL (0-0); Nucleated RBC % (auto) 0.4 %; Platelet Count 355 K/uL (130-400); RDW Coefficient of Variation 18.2 % (11.5-14.5); RDW Standard Deviation 67.5 fL (36.4-46.3); Red Blood Count 2.98 M/uL (4.7-6.1); White Blood Count 7.89 K/uL (4.8-10.8)
[2020-10-02 09:34] LABS: Appearance Urine Cloudy (Clear); Bacteria Urine Automated Negative (Negative); Bilirubin Urine Negative (Negative); Blood Urine 2+ (Negative); Color Urine Yellow; Glucose Urine UA Trace (Negative); Ketones Urine Negative (Negative); Leukocyte Esterase Urine Trace (Negative); Nitrite Urine Negative (Negative); Specific Gravity Urine 1.008 (1.000-1.030); Urobilinogen Urine Negative (Negative); WBC Urine Automated >30 /hpf (0-5); pH Urine >= 9.0 (4.5-7.5)
[2020-10-02 09:34] LABS: INR 1.1 (0.9-1.1); Prothrombin Time 11.9 Seconds (9.0-12.0)
[2020-10-02 09:36] LABS: Protein Urine 3+ (Negative)
[2020-10-02 10:12] LABS: BUN Creatinine Ratio 9.3 (10-20); Calcium 8.6 mg/dl (8.5-10.1); Creatinine Clr Calc Pharmacy 14.4 ml/min; Est GFR (African American) 17.4; Magnesium 2.1 mg/dl (1.8-2.4); Potassium 3.9 mmol/L (3.5-5.1)
--- NOTE | 2020-10-02 11:11 | Magnetic Resonance Report ---
Brain MRI WITHOUT CONTRAST HISTORY: Altered mental status. Assess for stroke. TECHNIQUE: Multiplanar multisequence MRI of the brain was performed without the use of contrast. COMPARISON STUDY: Head CT 09/30/2020. FINDINGS: Small focus of restricted diffusion seen within the right posterior occipital lobe. There i s associated encephalomalacia at this location. Therefore, this is consistent with an acute on chroni c infarct. The total area of restricted diffusion measures approximately 2 cm. Motion artifact result s in suboptimal evaluation. The midline structures appear intact. Encephalomalacia and gliosis involv ing the majority of the left frontal lobe consistent with an old infarct. This is also unchanged. Old small lacunar infarcts seen within the left cerebellar hemisphere. Chronic occlusion of the left int ernal carotid artery is again noted. This remains unchanged. Moderate to severe atrophic changes and extensive microvascular ischemic changes remain unchanged. Paranasal sinuses and mastoid air cells ar e clear. There is no mass, midline shift, or acute infarct. IMPRESSION: 1. A small acute on chronic right posterior occipital lobe infarct. 2. Old left frontal lobe infarct and chronic occlusion of the left internal carotid artery. 3. Atrophy and microvascular ischemic changes are again noted. ACT 112: Negative or not required by law. Electronically signed by: Byron Austin M.D. 10/02/2020 11:09 AM
--- NOTE | 2020-10-02 11:41 | Nephrology Progress Note ---
Date of Service October 02, 2020 Assessment & Plan (1) ESRD on hemodialysis: Mr. Mata has end-stage renal disease, has been on hemodialysis Saturday, Saturday, Saturday. Admitted with changes in mental status with concern over acute CVA. MRI showed acute on chronic rt occipital lobe infarct. Currently BP, volume status, electrolyte acceptable. Had Hemodialysis yesterday. --HD tomorrow, Epogen with HD - continued Nephrocaps and renal diet --dose medications for GFR less than 10 --left arm nephrology precaution ( AVF) --PT and eventual DC to [facility] Will follow (2) History of cerebrovascular accident: (3) Seizure: (4) Anemia: Admission and Anticipated Discharge Date Admission Date: September 30, 2020 Jesus Rivera was seen and examined this am. He was awake alert but did not communicate however he was communicating with his nurse earlier in the morning. had breakfast. BP, volume status, electrolyte fair. Review of Systems Review of Systems: Other Physical Exam Constitutional: WD/WN, vitals as above no acute distress Respiratory: normal respiratory effort, lungs clear to auscultation Cardiovascular: RRR, no murmur, no edema Skin: no rashes, warm and dry Neurologic: + focal motor deficit and awake Results & Data ([facility]) Vital Signs (Past 12 Hours) Vital Signs Temp Pulse Pulse Resp BP Pulse Ox 10/02/20 07:07 37.3 C 93 H 20 153/82 H 93 10/02/20 03:44 37.1 C 89 20 150/83 H 93 10/01/20 23:38 87 PG Care Time/CCT Total # of Minutes Spent Total Time Spent with Patient: Total time spent is greater than 50% in coordination of care (as documented) at patient's floor/unit and/or counseling patient: Coding Level of Care Code 49949 Subseq Hosp Care Lvl 3 Diagnoses ESRD on hemodialysis N18.6; Z99.2 History of cerebrovascular accident Z86.73 Seizure R56.9 Anemia D64.9
--- NOTE | 2020-10-02 12:16 | Hospitalist Progress Note ---
Date of Service October 02, 2020 Assessment & Plan (1) Stroke: MRI brain 10/01/20 with acute right occipital lobe stroke. This likely accounts for his pre-hospital gaze preference and altered MS. Echo was just done in 08/2020 thus will defer. LDL ess than 70 on lipid profile (currently on lipitor 80mg daily). This stroke occurred while on plavix. Plan - * CTA head/neck as recommended by Dr Gray; permission given by nephrology for use of IV contrast for studies * again defer on echo * add 81mg asa to his plavix * other option would be changing to aggrenox but given his extensive PAD history seems that asa/plavix would be best * could consider EEG but doubt this was seizure * keppra level pending; continue keppra in meantime * speech, PT, OT evals * appreciate neurology consultation (2) Cerebral artery occlusion with cerebral infarction: Prior CVA of left frontal region leading to right sided hemiparesis and aphasia. Additional old strokes seen on MRI brain. See "stroke" above. (3) Acute metabolic encephalopathy: Likely due to acute right-sided occipital lobe stroke. Ruling out UTI - urine cx pending. No metabolic abnormalities on routine labs. COVID-19 testing negative. Supportive care. (4) Dementia: Likely vascular dementia due to strokes and extensive vascular disease. Severe atrophy with areas of encephalomalacia on MRI. (5) Aphasia: Severe expressive aphasia - 2nd to prior left-sided frontal lobe stroke. (6) ESRD on dialysis: HD schedule M/W/. Appreciate [facility]. Continue Nephrocaps and calcitriol. (7) Hip fracture: RIGHT. s/p ORIF on 08/23/20. (8) Hypertension: Hold norvasc in light of acute stroke. (9) Hypercholesteremia: Cont high-intensity statin. LDL at goal. (10) Seizure: Continue Keppra 500mg po q Saturday, , Saturday, Saturday. Keppra level pending. No seizure activity seen during the stay. (11) Depression: Continue Celexa 10mg HS. (12) GERD (gastroesophageal reflux disease): Continue Pepcid 40mg po BID. This is high dose given his renal failure. Consider reducing dose. (13) Diabetes mellitus, type 2: Controlled. Hold amaryl. Would strongly consider NOT continuing this in light of ESRD - at high risk of hypoglycemia. Last few A1Cs very low - chronic anemia could be skewing - but [id number] would not continue the amaryl. (14) CAD (coronary artery disease): s/p CABG 2007 Cont statin Cont plavix Add asa in light of acute stroke (15) Renal artery stenosis: noted (16) Second degree AV block, Mobitz type I: history of, and intermittent runs of such on telemetry since admission cont tele monitoring (17) Macrocytic anemia: B12 level today wnl. Previous TSH and folate levels wnl. (18) Chronic systolic CHF (congestive heart failure): Clinically compensated on exam. Previous echo 08/2020 with EF 40%. Likely ischemic cardiomyopathy. (19) Carotid artery stenosis: h/o b/l CEAs. CTA head/neck. Statin. Plavix. adding asa. (20) DVT prophylaxis: heparin 5000 BID updated pt's by phone this evening she is aware of acute stroke as seen on MRI brain discussed care plan Admission and Anticipated Discharge Date Admission Date: September 30, 2020 Subjective tele overnight with runs of mobitz type 1 AV block and/or blocked PACs along with NSR. no a.fib/flutter. patient lethargic during my bedside rounds. briefly responded to name being called with eyes open for a second at most. per bedside sitter he was awake this am for a period of time but sleeping since then. unable to obtain any history or ROS. Review of Systems Review of Systems: Unobtainable due to reduced consciousness Physical Exam Constitutional: + ill appearing, + altered mental status and + frail appearing; no acute distress Eyes: PERRL ENMT: Mouth: + dry oral mucous membranes Respiratory: normal respiratory effort, lungs clear to auscultation Cardiovascular: Rate/Rhythm: regular rate and regular rhythm Heart Sounds: normal S1, normal S2 and + murmur (2/6 systolic LSB) Vessels: posterior tibial pulses present and dorsalis pedis pulses present; no JVD Extremities: no edema Gastrointestinal (Abdomen): normal bowel sounds, soft, nontender, no hepatosplenomegaly Skin: + pallor right upper chest dialysis catheter c/d/i Neurologic: + focal motor deficit (hemiplegia RUE/RLE) Psychiatric: Orientation: + not alert and + not oriented x 3 Results & Data Results & Data ([facility]) Vital Signs (Past 12 Hours) Vital Signs Temp Pulse Resp BP Pulse Ox 10/02/20 07:07 37.3 C 93 H 20 153/82 H 93 10/02/20 03:44 37.1 C 89 20 150/83 H 93 Laboratory Results Laboratory Results - last 24 hr 10/01/20 10/01/20 10/02/20 16:32 21:03 07:36 WBC RBC Hgb Hct MCV MCH MCHC RDW Std Deviation RDW Coeff of Shayy Plt Count MPV Immature Gran % (Auto) Neut % (Auto) Lymph % (Auto) [place] % (Auto) Eos % (Auto) Baso % (Auto) Neut # (Auto) Lymph # (Auto) [place] # (Auto) Eos # (Auto) Baso # (Auto) Immature Gran # (Auto) Absolute Nucleated RBC Nucleated RBC % (auto) PT INR Sodium Potassium Chloride Carbon Dioxide Anion Gap BUN Creatinine Est Cr Clr Drug Dosing Est GFR ( Amer) Est GFR (Non-Af Amer) BUN/Creatinine Ratio Glucose POC Glucose 89 112 H 98 Calcium Magnesium Vitamin B12 Urine Color Urine Appearance Urine pH Ur Specific [place] Urine Protein Urine Glucose (UA) Urine Ketones Urine Blood Urine Nitrite Urine Bilirubin Urine Urobilinogen Ur Leukocyte Esterase Urine WBC (Auto) Urine RBC (Auto) U Hyaline Cast (Auto) U Epithel Cells (Auto) Urine Bacteria (Auto) Urine Yeast Levetiracetam 10/02/20 10/02/20 10/02/20 09:06 09:06 09:07 WBC 7.89 RBC 2.98 L Hgb 9.4 L Hct 31.2 L MCV 104.7 H MCH 31.5 MCHC 30.1 L RDW Std Deviation 67.5 H RDW Coeff of Shayy 18.2 H Plt Count 355 MPV 9.7 Immature Gran % (Auto) 0.3 Neut % (Auto) 70.9 Lymph % (Auto) 16.9 Duval % (Auto) 10.5 Eos % (Auto) 1.3 Baso % (Auto) 0.1 Neut # (Auto) 5.60 Lymph # (Auto) 1.33 [place]val # (Auto) 0.83 H Eos # (Auto) 0.10 Baso # (Auto) 0.01 Immature Gran # (Auto) 0.02 Absolute Nucleated RBC 0.03 H Nucleated RBC % (auto) 0.4 PT INR Sodium 140 Potassium 3.9 D Chloride 103 Carbon Dioxide 32 Anion Gap 5.0 BUN 34 H D Creatinine 3.71 H D Est Cr Clr Drug Dosing 14.4 Est GFR ( Amer) 17.4 Est GFR (Non-Af Amer) 15.0 BUN/Creatinine Ratio 9.3 L Glucose 114 H POC Glucose Calcium 8.6 Magnesium 2.1 Vitamin B12 469 Urine Color Urine Appearance Urine pH Ur Specific [place] Urine Protein Urine Glucose (UA) Urine Ketones Urine Blood Urine Nitrite Urine Bilirubin Urine Urobilinogen Ur Leukocyte Esterase Urine WBC (Auto) Urine RBC (Auto) U Hyaline Cast (Auto) U Epithel Cells (Auto) Urine Bacteria (Auto) Urine Yeast Levetiracetam 10/02/20 10/02/20 10/02/20 09:07 09:07 11:46 WBC RBC Hgb Hct MCV MCH MCHC RDW Std Deviation RDW Coeff of Shayy Plt Count MPV Immature Gran % (Auto) Neut % (Auto) Lymph % (Auto) [place] % (Auto) Eos % (Auto) Baso % (Auto) Neut # (Auto) Lymph # (Auto) [place] # (Auto) Eos # (Auto) Baso # (Auto) Immature Gran # (Auto) Absolute Nucleated RBC Nucleated RBC % (auto) PT 11.9 INR 1.1 Sodium Potassium Chloride Carbon Dioxide Anion Gap BUN Creatinine Est Cr Clr Drug Dosing Est GFR ( Amer) Est GFR (Non-Af Amer) BUN/Creatinine Ratio Glucose POC Glucose 150 H Calcium Magnesium Vitamin B12 Urine Color Urine Appearance Urine pH Ur Specific [place] Urine Protein Urine Glucose (UA) Urine Ketones Urine Blood Urine Nitrite Urine Bilirubin Urine Urobilinogen Ur Leukocyte Esterase Urine WBC (Auto) Urine RBC (Auto) U Hyaline Cast (Auto) U Epithel Cells (Auto) Urine Bacteria (Auto) Urine Yeast Levetiracetam Pending 10/02/20 Unknown WBC RBC Hgb Hct MCV MCH MCHC RDW Std Deviation RDW Coeff of Shayy Plt Count MPV Immature Gran % (Auto) Neut % (Auto) Lymph % (Auto) Du[place] % (Auto) Eos % (Auto) Baso % (Auto) Neut # (Auto) Lymph # (Auto) [place] # (Auto) Eos # (Auto) Baso # (Auto) Immature Gran # (Auto) Absolute Nucleated RBC Nucleated RBC % (auto) PT INR Sodium Potassium Chloride Carbon Dioxide Anion Gap BUN Creatinine Est Cr Clr Drug Dosing Est GFR ( Amer) Est GFR (Non-Af Amer) BUN/Creatinine Ratio Glucose POC Glucose Calcium Magnesium Vitamin B12 Urine Color Yellow Urine Appearance Cloudy A Urine pH >= 9.0 H Ur Specific [place] 1.008 Urine Protein 3+ H Urine Glucose (UA) Trace H Urine Ketones Negative Urine Blood 2+ H Urine Nitrite Negative Urine Bilirubin Negative Urine Urobilinogen Negative Ur Leukocyte Esterase Trace H Urine WBC (Auto) >30 H Urine RBC (Auto) 5-10 H U Hyaline Cast (Auto) 1-5 U Epithel Cells (Auto) 10-20 H Urine Bacteria (Auto) Negative Urine Yeast Not Reportable Levetiracetam PG Care Time/CCT Total # of Minutes Spent Total Time Spent with Patient: Total time spent is greater than 50% in coordination of care (as documented) at patient's floor/unit and/or counseling patient: Coding Level of Care Code 95412 Subseq Hosp Care Lvl 3 Diagnoses Stroke I63.9 Cerebral artery occlusion with cerebral infarction I63.50 Acute metabolic encephalopathy G93.41 Dementia F03.90 Aphasia R47.01 ESRD on dialysis N18.6; Z99.2 Hip fracture S72.009A Hypertension I10 Hypercholesteremia E78.00 Seizure R56.9 Depression F32.9 Depression Type: unspecified GERD (gastroesophageal reflux disease) K21.9 Esophagitis presence: esophagitis presence not specified Diabetes mellitus, type 2 E11.9 CAD (coronary artery disease) I25.10 Coronary Disease-Associated Artery/Lesion type: chilkoot artery [place] vs. transplanted heart: chilkoot heart Associated angina: without angina Renal artery stenosis I70.1 Second degree AV block, Mobitz type I I44.1 Macrocytic anemia D53.9 Chronic systolic CHF (congestive heart failure) I50.22 Carotid artery stenosis I65.29 DVT prophylaxis Z29.9 (1) Depression Depression Type: unspecified Qualified Code(s): F32.9 - Major depressive disorder, single episode, unspecified (2) GERD (gastroesophageal reflux disease) Esophagitis presence: esophagitis presence not specified Qualified Code(s): K21.9 - Gastro-esophageal reflux disease without esophagitis (3) CAD (coronary artery disease) Coronary Disease-Associated Artery/Lesion type: chilkoot artery [place] vs. transplanted heart: chilkoot heart Associated angina: without angina Qualified Code(s): I25.10 - Atherosclerotic heart disease of chilkoot coronary artery without angina pectoris
[2020-10-02] MEDS ORDERED: OPTIRAY 320 125ml IV ONE (14:04)
--- NOTE | 2020-10-02 14:21 | CT Scan Report ---
HEAD & NECK CTA HISTORY: right occipital lobe CVA TECHNIQUE: Multiaxial CT images of the head were performed following the intravenous administration o f contrast to evaluate the major cerebral vessels. Multiaxial CT images of the neck were also perform ed following the intravenous administration of contrast to evaluate the major cervical vessels. Maxim um intensity projection images were also obtained. A dose lowering technique was utilized adhering to the principles of ALARA. COMPARISON: Brain MRI 10/02/2020. FINDINGS: 2 cm focal hypodensity within the right posterior occipital lobe consistent with the known acute on c hronic infarct. High-grade/severe stenosis within the proximal basilar artery best seen image 340. Th e mid to distal basilar artery is patent. Mild multifocal narrowing within the distal bilateral patch setter. The proximal to mid bilateral patch setter are patent. No significant stenosis, occlusion, or aneurysm seen within the bilateral ACAs or MCAs. The major dural venous sinuses appear patent. Mild multifocal narr owing within the right carotid siphon due to the atherosclerotic plaque. Faint contrast seen within t he distal left intracranial internal carotid artery likely due to retrograde opacification. Moderate atherosclerotic plaque within the normal caliber aortic arch. Bilateral pleural effusions a re partially visualized. There is interlobular septal thickening suggestive of pulmonary edema. There are poststernotomy changes and a right jugular catheter. These are partially visualized on this stud y. Approximately 50% focal stenosis at the takeoff of the bilateral common carotid arteries due to th e atherosclerotic plaque. There is also a 50% focal stenosis within the proximal left subclavian leanne ry. A left vertebral artery is nonopacified. This is consistent with an age-indeterminate occlusion. 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 Mild calcified plaque within the right carotid bifurcation. There is also mild calcified plaqu e within the distal right internal carotid artery. No significant stenosis or occlusion within the ri ght internal carotid artery. There is complete chronic occlusion of the left internal carotid artery. Focal high-grade stenosis of up to 90% within the distal left common carotid artery best seen image 182. This demonstrates a lumen diameter of 3 mm. Mild scattered calcified plaque within the right bertrand tebral artery. There is a focal area of moderate to severe stenosis at the distal intracranial right vertebral artery best seen on image 329. IMPRESSION: 1. Complete chronic occlusion of the left internal carotid artery. The left vertebral artery is not o pacified consistent with complete occlusion. This is technically age indeterminate but is also likely chronic. 2. A 2 cm focal hypodensity within the right posterior occipital lobe consistent with the known acute on chronic infarct. 3. Mild multifocal narrowing seen within the bilateral distal patch setter. No evidence for arterial occlusio n within the major cerebral arteries. 4. 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 5. Focal high-grade stenosis of up to 90% within the distal left common carotid artery. 6. Focal moderate to severe stenosis at the distal intracranial right vertebral artery. 7. High-grade/severe stenosis within the proximal basilar artery. 8. Bilateral pleural effusions and pulmonary edema are noted. 9. Additional findings as described above. ACT 112: Negative or not required by law. Electronically signed by: Byron Austin M.D. 10/02/2020 2:20 PM
[2020-10-02] MEDS: CITALOPRAM 20 MG TAB PO SCH (21:49)
[2020-10-02] MEDS: ASPIRIN 81 MG ECTAB PO SCH (21:49)
[2020-10-02] MEDS: ATORVASTATIN 40 MG TAB PO SCH (21:51)
[2020-10-03 07:59] LABS: INR 1.1 (0.9-1.1); Prothrombin Time 11.2 Seconds (9.0-12.0)
[2020-10-03 08:01] LABS: Basophils # (auto) 0.02 K/uL (0-0.2); Basophils % (auto) 0.2 %; Eosinophils # (auto) 0.18 K/uL (0-0.5); Eosinophils % (auto) 2.2 %; Hematocrit (blood only) 33.9 % (42-52); Hemoglobin 10.1 g/dL (14.0-18.0); Immature Granulocytes # (auto) 0.04 K/uL (0.00-0.02); Immature Granulocytes % (auto) 0.5 %; Lymphocytes # (auto) 1.35 K/uL (1.2-3.4); Lymphocytes % (auto) 16.4 %; Mean Corpuscular Hemoglobin 31.6 pg (25-34); Mean Corpuscular Hgb Conc 29.8 g/dL (32-36); Mean Corpuscular Volume 105.9 fL (80-100); Mean Platelet Volume 9.8 fL (7.4-10.4); Monocytes % (auto) 8.5 %; Neutrophils # (auto) 5.95 K/uL (1.4-6.5); Neutrophils % (auto) 72.2 %; Nucleated RBC # (auto) 0.04 K/uL (0-0); Nucleated RBC % (auto) 0.5 %; Platelet Count 382 K/uL (130-400); RDW Coefficient of Variation 18.4 % (11.5-14.5); White Blood Count 8.24 K/uL (4.8-10.8)
[2020-10-03 08:17] LABS: BUN Creatinine Ratio 9.1 (10-20); Calcium 9.2 mg/dl (8.5-10.1); Creatinine Clr Calc Pharmacy 12.5 ml/min; Est GFR (African American) 14.6; Est GFR (Non-African American) 12.6; Magnesium 2.4 mg/dl (1.8-2.4); Potassium 4.1 mmol/L (3.5-5.1)
[2020-10-03] MEDS ORDERED: CALCITRIOL 0.25 MCG CAPSULE PO SCH (09:00)
[2020-10-03] MEDS ORDERED: EPOETIN ALFA 10,000 UNITS/ML VIAL IV SCH (09:00)
[2020-10-03] MEDS: INSULIN ASPART 100 UNITS/ML 3 ML PEN SC SCH ×4 (09:17→21:10)
[2020-10-03] MEDS: amLODIPine BESYLATE 5 MG TAB PO SCH (13:25)
[2020-10-03] MEDS: NEPHROCAPS PO SCH (13:25)
[2020-10-03] MEDS: FAMOTIDINE 40 MG TABLET PO SCH ×2 (13:27→21:54)
[2020-10-03] MEDS: ASPIRIN 81 MG ECTAB PO SCH (13:27)
[2020-10-03] MEDS: CLOPIDOGREL BISULFATE 75 MG TAB PO SCH (13:27)
[2020-10-03] MEDS: HEPARIN SOD 5,000 UNIT/0.5 ML VIAL SQ SCH ×2 (13:28→21:54)
[2020-10-03] MEDS: DOCUSATE SODIUM 100 MG CAP PO SCH (13:32)
--- NOTE | 2020-10-03 13:37 | Neurology Progress Note ---
Date of Service October 03, 2020 Assessment & Plan (1) Seizure: (2) History of cerebrovascular accident: (3) Hemiparesis: (4) Acute metabolic encephalopathy: Miguel Mata is a 75 yo man w/ PMH of prior left MCA with residual right- sided weakness and aphasia, history of epilepsy on Dilantin chronically, prolonged QT, renal artery stenosis status post left renal artery stent, hypertension, hyperlipidemia, ASCVD S/P CABG, PVD with iliofemoral bypass, chronic tobacco abuse, cognitive impairment and recently initiated ESRD who presents to [facility] after AMS a/w gaze preference and worsening of baseline aphasia. Work-up so far: - BUN 39, Cr 4.28 - A1c 4.0, LDL 39 - Ca 8.6, Mg 2.4 - B12 469 - UA no infection (+pyuria and hematuria) - CT head shows left MCA encephalomalacia and 2 small hypodensities in the cerebellar lobes (left greater than right), moderate to severe generalized atrophy with ex vacuo dilation, +SVID - CTA H&N shows known chronic L ICA occlusion, new (likely chronic) left vertebral artery occlusion, diffuse extra and intracranial atherosclerosis, moderate to severe stenosis of the basilar artery, no intracranial aneurysms noted - MRI brain shows left MCA encephalomalacia and 2 small hypodensities in the cerebellar lobes (left greater than right), moderate to severe generalized atrophy with ex vacuo dilation, +SVID. The DWI hyperintensity in the right occipital lobe appears to be T2 shine through from prior stroke given T2 hyperintensity with associated encephalomalacia on the T2 FLAIR sequence and no clear ADC correlate. # AMS: likely multifactorial as he has significant intracranial vascular disease, multiple prior strokes, ESRD, h/o seizures on keppra and likely vascular dementia at baseline. Interestingly, his A1c has dropped significantly which does bring about the concern that he could be having hypoglycemia triggering some of his episodes of AMS or seizure-like activity. Per my previous examinations, he does appear close to his baseline currently. - would hold further diabetes medication and use SSI only - continue maximal medical therapy with atorvastatin 40mg daily and plavix 75mg daily - continue stroke prevention goals with PCP (A1c<7, LDL<70, BP<130/80) - continue keppra 500mg [id number] at 4pm (24 hours after HD session) - he is welcome to f/u in neurology clinic in 2 months (with myself or NAN Sim) Thank you for this interesting consult. Plan of care discussed with primary team. Please call or text with questions. (5) ESRD on hemodialysis: Admission and Anticipated Discharge Date Admission Date: October 02, 2020 Subjective NAEs overnight. He was awake, alert, non-verbal aside from saying/shaking his head yes to most questions (similar to how I have seen him in the past when he is at his baseline) Review of Systems Review of Systems: Unobtainable due to cognitive status Results & Data ([facility]) Vital Signs (Past 12 Hours) Vital Signs Temp Pulse Resp BP BP Pulse Ox 10/03/20 08:00 36.6 C 73 16 137/85 95 10/03/20 03:34 37.1 C 77 20 175/74 H 97 Exam (Neuro) Physical Exam: General Exam: GEN: NAD, sitting in bed. HEENT: No conjunctival injection, no rhinorrhea. CV: RRR, no peripheral edema PULM: Nonlabored respirations on room air. Neuro Exam: MS: Awake and Alert. Not oriented to person, place or date. Speech nonfluent, mainly just says yes, + dysarthria. Unable to name, repeat or consistently comprehend. Unable to assess memory/cognition 2/2 language deficits. Attention intact. No neglect. CN: R inferior quadrantopia, no BTT in right skyler-field. No extinction to double simultaneous stimuli. Unable to visualize fundi on fundoscopic exam. PERRLA OU. EOMI without nystagmus. Facial sensation intact to LT. Facial muscles full and symmetric. Hearing intact to conversation. Uvula midline with symmetric palatal elevation. Shoulder shrug normal. Tongue midline. MOTOR: Normal bulk and tone. RUE no antigravity movements observed. LUE antigravity without drift, BLEs briefly antigravity but drifted to wheelchair. (difficult to assess further given baseline cognitive deficits/aphasia) REFLEXES: 2+ at R biceps, triceps, brachioradialis, 1+ at R biceps, triceps, brachioradialis, 1+ patella and absent Achilles bilaterally. Toes mute bilaterally. SENSORY: Reported intact to LT though would often answer yes to everything. COORDINATION: No dysmetria or ataxia on [id number] in the LUE. GAIT: deferred given physical status/baseline hemiplegia PG Care Time/CCT Total # of Minutes Spent Total Time Spent with Patient: Total time spent is greater than 50% in coordination of care (as documented) at patient's floor/unit and/or counseling patient: Coding Level of Care Code 58525 Subseq Hosp Care Lvl 3 Diagnoses Seizure R56.9 History of cerebrovascular accident Z86.73 Hemiparesis G81.90 Acute metabolic encephalopathy G93.41 ESRD on hemodialysis N18.6; Z99.2
--- NOTE | 2020-10-03 15:26 | Hospitalist Progress Note ---
Date of Service October 03, 2020 Assessment & Plan (1) Stroke: MRI brain 10/01/20 with acute right occipital lobe stroke. This likely accounts for his pre-hospital gaze preference and altered MS. Echo was just done in 08/2020 thus will defer. LDL ess than 70 on lipid profile (currently on lipitor 80mg daily). This stroke occurred while on plavix. Plan - * CTA head/neck as recommended by Dr Gray; permission given by nephrology for use of IV contrast for studies * again defer on echo * add 81mg asa to his plavix * other option would be changing to aggrenox but given his extensive PAD history seems that asa/plavix would be best * could consider EEG but doubt this was seizure * keppra level pending; continue keppra in meantime * speech, PT, OT evals * appreciate neurology consultation * will have him followup with neurolgoy as an outpatient. (2) Cerebral artery occlusion with cerebral infarction: Prior CVA of left frontal region leading to right sided hemiparesis and aphasia. Additional old strokes seen on MRI brain. See "stroke" above. (3) Acute metabolic encephalopathy: Likely due to acute right-sided occipital lobe stroke. Ruling out UTI - urine cx pending. No metabolic abnormalities on routine labs. COVID-19 testing negative. Supportive care. (4) Dementia: Likely vascular dementia due to strokes and extensive vascular disease. Severe atrophy with areas of encephalomalacia on MRI. (5) Aphasia: Severe expressive aphasia - 2nd to prior left-sided frontal lobe stroke. (6) ESRD on dialysis: HD schedule M/W/. Apprec[place] [facility]. Continue Nephrocaps and calcitriol. (7) Hip fracture: RIGHT. s/p ORIF on 08/23/20. (8) Hypertension: Hold norvasc in light of acute stroke. (9) Hypercholesteremia: Cont high-intensity statin. LDL at goal. (10) Seizure: Continue Keppra 500mg po q Saturday, , Saturday, Saturday. Keppra level pending. No seizure activity seen during the stay. (11) Depression: Continue Celexa 10mg HS. (12) GERD (gastroesophageal reflux disease): Continue Pepcid 40mg po BID. This is high dose given his renal failure. Consider reducing dose. (13) Diabetes mellitus, type 2: Controlled. Hold amaryl. Would strongly consider NOT continuing this in light of ESRD - at high risk of hypoglycemia. Last few A1Cs very low - chronic anemia could be skewing - but [id number] would not continue the amaryl. (14) CAD (coronary artery disease): s/p CABG 2007 Cont statin Cont plavix Add asa in light of acute stroke (15) Renal artery stenosis: noted (16) Second degree AV block, Mob[place] type I: history of, and intermittent runs of such on telemetry since admission cont tele monitoring (17) Macrocytic anemia: B12 level today wnl. Previous TSH and folate levels wnl. (18) Chronic systolic CHF (congestive heart failure): Clinically compensated on exam. Previous echo 08/2020 with EF 40%. Likely ischemic cardiomyopathy. (19) Carotid artery stenosis: h/o b/l CEAs. CTA head/neck. Statin. Plavix. adding asa. (20) DVT prophylaxis: heparin 5000 BID Admission and Anticipated Discharge Date Admission Date: October 02, 2020 Subjective 75 yo male does not verbalize complaints but does nod head yes with questions. He appears comfortable. Review of Systems Review of Systems: All systems reviewed & are unremarkable except as noted in HPI & below Physical Exam Physical Exam: Constitutional: no acute distress Eyes: PERRL ENMT: Mouth: + dry oral mucous membranes Respiratory: normal respiratory effort, lungs clear to auscultation Cardiovascular: Rate/Rhythm: regular rate and regular rhythm Heart Sounds: normal S1, normal S2 and + murmur (2/6 systolic LSB) Vessels: posterior tibial pulses present and dorsalis pedis pulses present; no JVD Extremities: no edema Gastrointestinal (Abdomen): normal bowel sounds, soft, nontender, no hepatosplenomegaly Skin: + pallor right upper chest dialysis catheter c/d/i Neurologic: + focal motor deficit (hemiplegia RUE/RLE)/ inability to turn to the left Psychiatric: Orientation: awake Results & Data Results & Data ([facility]) Vital Signs (Past 12 Hours) Vital Signs Temp Pulse Pulse Pulse Resp BP BP 10/03/20 13:31 37.2 C 67 18 165/89 H 10/03/20 10:20 75 125/73 10/03/20 10:00 58 L 139/85 10/03/20 09:40 67 156/82 H 10/03/20 09:20 83 141/78 H 10/03/20 09:10 72 153/80 H 10/03/20 08:44 36.8 C 87 10/03/20 08:00 36.6 C 73 16 137/85 10/03/20 03:34 37.1 C 77 20 BP Pulse Ox 10/03/20 13:31 95 10/03/20 10:20 10/03/20 10:00 10/03/20 09:40 10/03/20 09:20 10/03/20 09:10 10/03/20 08:44 10/03/20 08:00 95 10/03/20 03:34 175/74 H 97 PG Care Time/CCT Total # of Minutes Spent Total Time Spent with Patient: Total time spent is greater than 50% in coordination of care (as documented) at patient's floor/unit and/or counseling patient: Coding Level of Care Code 57179 Subseq Hosp Care Lvl 3 Diagnoses Stroke I63.9 Cerebral artery occlusion with cerebral infarction I63.50 Acute metabolic encephalopathy G93.41 Dementia F03.90 Aphasia R47.01 ESRD on dialysis N18.6; Z99.2 Hip fracture S72.009A Hypertension I10 Hypercholesteremia E78.00 Seizure R56.9 Depression F32.9 Depression Type: unspecified GERD (gastroesophageal reflux disease) K21.9 Esophagitis presence: esophagitis presence not specified Diabetes mellitus, type 2 E11.9 CAD (coronary artery disease) I25.10 Associated angina: without angina Coronary Disease-Associated Artery/Lesion type: [place] artery [place] vs. transplanted heart: [place] heart Renal artery stenosis I70.1 Second degree AV block, Mobitz type I I44.1 Macrocytic anemia D53.9 Chronic systolic CHF (congestive heart failure) I50.22 Carotid artery stenosis I65.29 DVT prophylaxis Z29.9 Time Spent (min) 35 (1) CAD (coronary artery disease) Associated angina: without angina Coronary Disease-Associated Artery/Lesion type: [place] artery [place] vs. transplanted heart: [place] heart Qualified Code(s): I25.10 - Atherosclerotic heart disease of [place] coronary artery without angina pectoris (2) Depression Depression Type: unspecified Qualified Code(s): F32.9 - Major depressive disorder, single episode, unspecified (3) GERD (gastroesophageal reflux disease) Esophagitis presence: esophagitis presence not specified Qualified Code(s): K21.9 - Gastro-esophageal reflux disease without esophagitis
[2020-10-03] MEDS: CITALOPRAM 20 MG TAB PO SCH (21:53)
[2020-10-03] MEDS: ATORVASTATIN 40 MG TAB PO SCH (21:55)
[2020-10-04] MEDS: ACETAMINOPHEN 325 MG TAB PO PRN (00:02)
[2020-10-04] MEDS: NEPHROCAPS PO SCH (07:30)
[2020-10-04] MEDS: amLODIPine BESYLATE 5 MG TAB PO SCH (07:30)
[2020-10-04] MEDS: ASPIRIN 81 MG ECTAB PO SCH (07:34)
[2020-10-04] MEDS: CLOPIDOGREL BISULFATE 75 MG TAB PO SCH (07:35)
[2020-10-04] MEDS: FAMOTIDINE 40 MG TABLET PO SCH (07:35)
[2020-10-04] MEDS: levETIRAcetam 500 MG TAB PO SCH (07:35)
[2020-10-04] MEDS: HEPARIN SOD 5,000 UNIT/0.5 ML VIAL SQ SCH (07:36)
[2020-10-04] MEDS: DOCUSATE SODIUM 100 MG CAP PO SCH (07:39)
[2020-10-04 08:07] LABS: Basophils # (auto) 0.02 K/uL (0-0.2); Basophils % (auto) 0.2 %; Eosinophils # (auto) 0.13 K/uL (0-0.5); Eosinophils % (auto) 1.3 %; Hematocrit (blood only) 35.6 % (42-52); Hemoglobin 10.8 g/dL (14.0-18.0); Immature Granulocytes # (auto) 0.03 K/uL (0.00-0.02); Immature Granulocytes % (auto) 0.3 %; Lymphocytes % (auto) 22.8 %; Mean Corpuscular Hemoglobin 31.9 pg (25-34); Mean Corpuscular Hgb Conc 30.3 g/dL (32-36); Mean Platelet Volume 10.1 fL (7.4-10.4); Monocytes # (auto) 0.97 K/uL (0.11-0.59); Neutrophils # (auto) 6.32 K/uL (1.4-6.5); Neutrophils % (auto) 65.4 %; Nucleated RBC # (auto) 0.06 K/uL (0-0); Nucleated RBC % (auto) 0.7 %; Platelet Count 409 K/uL (130-400); RDW Coefficient of Variation 18.5 % (11.5-14.5); RDW Standard Deviation 69.7 fL (36.4-46.3); Red Blood Count 3.39 M/uL (4.7-6.1); White Blood Count 9.67 K/uL (4.8-10.8)
[2020-10-04 08:43] LABS: Albumin Level 2.4 gm/dl (3.4-5.0); BUN Creatinine Ratio 8.6 (10-20); Calcium 9.1 mg/dl (8.5-10.1); Creatinine Clr Calc Pharmacy 15.5 ml/min; Est GFR (African American) 21.3; Est GFR (Non-African American) 18.4; Potassium 3.7 mmol/L (3.5-5.1)
[2020-10-04 08:46] LABS: Albumin Globulin Ratio 0.5 (0.9-2); Bilirubin,Total 0.5 mg/dl (0.2-1); Globulin 4.5 gm/dl (2.5-4.0); Total Protein 6.9 gm/dl (6.4-8.2)
[2020-10-04] MEDS: INSULIN ASPART 100 UNITS/ML 3 ML PEN SC SCH ×3 (09:08→17:34)
--- NOTE | 2020-10-04 10:32 | Nephrology Progress Note ---
Date of Service October 04, 2020 Assessment & Plan (1) ESRD on hemodialysis: Mr. Mata has end-stage renal disease, on hemodialysis Saturday, Saturday, Saturday. Admitted with changes in mental status with concern over acute CVA. MRI showed acute on chronic rt occipital lobe infarct. CTA of head/neck with chronic significant atherosclerotic disease. Currently BP, volume status, electrolyte acceptable. Had Hemodialysis yesterday. He seems to be at his baseline --HD tomorrow. - continued Nephrocaps and renal diet --dose medications for GFR less than 10 --left arm nephrology precaution ( AVF) --PT and eventual DC to [facility] Will follow (2) History of cerebrovascular accident: (3) Seizure: (4) Anemia: Admission and Anticipated Discharge Date Admission Date: October 02, 2020 Jesus Rivera was seen and examined in his room this morning. He remained mostly nonverbal however awake, alert, seems comfortable. Blood pressure slightly elevated, volume status acceptable, no respiratory distress. Electrolyte acceptable. Review of Systems Review of Systems: Other Physical Exam Constitutional: WD/WN, vitals as above no acute distress and not ill appearing Respiratory: normal respiratory effort, lungs clear to auscultation Cardiovascular: RRR, no murmur, no edema Neurologic: + focal motor deficit Results & Data ([facility]) Vital Signs (Past 12 Hours) Vital Signs Temp Pulse Pulse Pulse Resp BP BP 10/04/20 09:11 36.9 C 95 H 18 163/74 H 10/04/20 02:45 37 C 101 H 18 163/95 H 10/04/20 01:09 95 H 10/04/20 01:03 37.2 C 10/03/20 23:30 38 C H 90 18 133/74 Pulse Ox 10/04/20 09:11 95 10/04/20 02:45 94 10/04/20 01:09 10/04/20 01:03 10/03/20 23:30 95 PG Care Time/CCT Total # of Minutes Spent Total Time Spent with Patient: Total time spent is greater than 50% in coordination of care (as documented) at patient's floor/unit and/or counseling patient: Coding Level of Care Code 00311 Subseq Hosp Care Lvl 2 Diagnoses ESRD on hemodialysis N18.6; Z99.2 History of cerebrovascular accident Z86.73 Seizure R56.9 Anemia D64.9
--- NOTE | 2020-10-04 13:06 | Electroencephalogram ---
EEG Procedure Note Date of Service October 04, 2020 Start / End Times Start Time: 5:55am End Time: 6:15am Referring Physician Jarrod Jones History seizure, aphasia Home Medication List Medication Instructions Recorded Confirmed Type Renal Caps 1 cap PO QAM #30 cap 11/20/19 09/30/20 Rx polyethylene glycol 3350 [Miralax] 17 gm PO DAILY #0 ea 12/04/19 09/30/20 Rx atorvastatin [Lipitor] 80 mg PO HS 02/18/20 09/30/20 History clopidogrel [Plavix] 75 mg PO DAILY 02/18/20 09/30/20 History levetiracetam [Keppra] 500 mg PO 4XWK 02/18/20 09/30/20 History famotidine 40 mg tablet 40 mg PO BID #180 tab 03/01/20 09/30/20 Rx docusate sodium [Stool Softener] 100 mg PO DAILY 04/13/20 09/30/20 History isosorbide mononitrate 60 mg 60 mg PO DAILY #30 tab 06/07/20 09/30/20 Rx tablet,extended release 24 hr calcitriol 0.25 mcg capsule 0.25 mcg PO 3XWK #15 cap 08/09/20 09/30/20 Rx glipizide 2.5 mg PO QAM 08/22/20 09/30/20 History citalopram 10 mg tablet 10 mg PO HS #30 tab 09/05/20 09/30/20 Rx acetaminophen 650 mg PO Q6H PRN MDD 3000 MG 09/30/20 09/30/20 History APAP/24 HOURS amlodipine [Norvasc] 2.5 mg PO HS 09/30/20 09/30/20 History bisacodyl [Dulcolax (bisacodyl)] 10 mg [facility] DIRECTED PRN 09/30/20 09/30/20 History hydrocortisone [Proctosol HC] 1 appln VA Q24H PRN 09/30/20 09/30/20 History magnesium hydroxide [Milk of 30 ml PO DIRECTED PRN 09/30/20 09/30/20 History Magnesia] mineral oil [Enema] 118 ml [facility] DIRECTED PRN 09/30/20 09/30/20 History sennosides [Senokot] 8.6 mg PO Q48H PRN 09/30/20 09/30/20 History Inpatient Medication List Acetaminophen (Acetaminophen 325 Mg Tab) 650 mg PO Q6H PRN PRN Reason: Fever Or Pain Stop: 10/31/20 00:13 Last Admin: 10/04/20 00:02 Dose: 650 mg Documented by: [id number] Admin: 10/02/20 09:09 Dose: 650 mg Documented by: [id number] Admin: 10/01/20 08:45 Dose: 650 mg Documented by: [id number] Amlodipine Besylate (Amlodipine Besylate 5 Mg Tab) 2.5 mg PO [facility] Stop: 10/31/20 18:14 Last Admin: 10/04/20 07:30 Dose: 2.5 mg Documented by: [id number] Admin: 10/03/20 13:25 Dose: 2.5 mg Documented by: [id number] Admin: 10/02/20 09:07 Dose: 2.5 mg Documented by: [id number] Admin: 10/01/20 20:14 Dose: 2.5 mg Documented by: [id number] Aspirin (Aspirin 81 Mg Ectab) 81 mg PO [facility] Stop: 11/01/20 19:59 Last Admin: 10/04/20 07:34 Dose: 81 mg Documented by: [id number] Admin: 10/03/20 13:27 Dose: 81 mg Documented by: [id number] Admin: 10/02/20 21:49 Dose: 81 mg Documented by: [id number] Atorvastatin Calcium (Atorvastatin 40 Mg Tab) 80 mg PO [facility] Stop: 10/31/20 00:13 Last Admin: 10/03/20 21:55 Dose: 80 mg Documented by: [id number] Admin: 10/02/20 21:51 Dose: 80 mg Documented by: [id number] Admin: 10/01/20 21:52 Dose: 80 mg Documented by: [id number] Admin: 10/01/20 03:03 Dose: 80 mg Documented by: [id number] Calcitriol (Calcitriol 0.25 Mcg Capsule) 0.25 mcg PO [facility] Stop: 11/02/20 08:59 Last Admin: 10/03/20 13:27 Dose: 0.25 mcg Documented by: [id number] Citalopram Hydrobromide (Citalopram 20 Mg Tab) 10 mg PO [facility] Stop: 10/31/20 00:59 Last Admin: 10/03/20 21:53 Dose: 10 mg Documented by: [id number] Admin: 10/02/20 21:49 Dose: 10 mg Documented by: [id number] Admin: 10/01/20 21:49 Dose: 10 mg Documented by: [id number] Admin: 10/01/20 03:02 Dose: 10 mg Documented by: [id number] Clopidogrel Bisulfate (Clopidogrel Bisulfate 75 Mg Tab) 75 mg PO DAILY SEE Stop: 10/31/20 08:59 Last Admin: 10/04/20 07:35 Dose: 75 mg Documented by: [id number] Admin: 10/03/20 13:27 Dose: 75 mg Documented by: [id number] Admin: 10/02/20 09:07 Dose: 75 mg Documented by: [id number] Admin: 10/01/20 08:41 Dose: 75 mg Documented by: [id number] Docusate Sodium (Docusate Sodium 100 Mg Cap) 100 mg PO DAILY SEE Stop: 10/31/20 08:59 Last Admin: 10/04/20 07:39 Dose: 100 mg Documented by: [id number] Admin: 10/03/20 13:32 Dose: 100 mg Documented by: [id number] Admin: 10/02/20 09:08 Dose: 100 mg Documented by: [id number] Admin: 10/01/20 08:42 Dose: 100 mg Documented by: [id number] Famotidine (Famotidine 40 Mg Tablet) 40 mg PO BID SEE Stop: 10/31/20 01:14 Last Admin: 10/04/20 07:35 Dose: 40 mg Documented by: [id number] Admin: 10/03/20 21:54 Dose: 40 mg Documented by: [id number] Admin: 10/03/20 13:27 Dose: 40 mg Documented by: [id number] Admin: 10/02/20 21:53 Dose: 40 mg Documented by: [id number] Admin: 10/02/20 09:07 Dose: 40 mg Documented by: [id number] Admin: 10/01/20 21:49 Dose: 40 mg Documented by: [id number] Admin: 10/01/20 09:46 Dose: 40 mg Documented by: [id number] Admin: 10/01/20 03:02 Dose: 40 mg Documented by: [id number] Heparin Sodium (Porcine) (Heparin Sod 5,000 Unit/0.5 Ml Vial) 5,000 units SQ Q12 SEE Stop: 11/02/20 08:59 Last Admin: 10/04/20 07:36 Dose: 5,000 units Documented by: [id number] Admin: 10/03/20 21:54 Dose: 5,000 units Documented by: [id number] Admin: 10/03/20 13:28 Dose: 5,000 units Documented by: [id number] Insulin Aspart (Insulin Aspart 100 Units/Ml 3 Ml Pen) 0 units SC ACHS SEE Stop: 10/31/20 01:14 Last Admin: 10/04/20 12:30 Dose: Not Given Documented by: [id number] Admin: 10/04/20 09:08 Dose: 2 units Documented by: [id number] Cosigned by: [id number] Admin: 10/03/20 21:10 Dose: Not Given Documented by: [id number] Admin: 10/03/20 18:57 Dose: Not Given Documented by: [id number] Admin: 10/03/20 14:46 Dose: Not Given Documented by: [id number] Admin: 10/03/20 09:17 Dose: Not Given Documented by: [id number] Admin: 10/02/20 21:28 Dose: Not Given Documented by: [id number] Admin: 10/02/20 17:00 Dose: Not Given Documented by: [id number] Admin: 10/02/20 13:03 Dose: 1 units Documented by: [id number] Cosigned by: [id number] Admin: 10/02/20 09:24 Dose: Not Given Documented by: [id number] Cosigned by: [id number] Admin: 10/01/20 21:16 Dose: Not Given Documented by: [id number] Admin: 10/01/20 17:15 Dose: Not Given Documented by: [id number] Cosigned by: [id number] Admin: 10/01/20 12:25 Dose: 3 units Documented by: [id number] Cosigned by: [id number] Admin: 10/01/20 08:51 Dose: Not Given Documented by: [id number] Cosigned by: [id number] Admin: 10/01/20 02:54 Dose: 1 units Documented by: [id number] Cosigned by: [id number] Levetiracetam (Levetiracetam 500 Mg Tab) 500 mg PO SuTuThSa SEE Stop: 10/31/20 08:59 Last Admin: 10/04/20 07:35 Dose: 500 mg Documented by: [id number] Admin: 01/17/21 09:07 Dose: 500 mg Documented by: [id number] Admin: 10/01/20 09:46 Dose: 500 mg Documented by: [id number] Vitamin B Complex/Folic Acid (Nephrocaps) 1 cap PO QAM SEE Stop: 10/31/20 08:59 Last Admin: 10/04/20 07:30 Dose: 1 cap Documented by: [id number] Admin: 10/03/20 13:25 Dose: 1 cap Documented by: [id number] Admin: 10/02/20 09:07 Dose: 1 cap Documented by: [id number] Admin: 10/01/20 08:42 Dose: 1 cap Documented by: [id number] Discontinued Medications Aspirin (Aspirin Chew 324 Mg) 324 mg PO NOW STA Stop: 09/30/20 18:45 Last Admin: 09/30/20 19:32 Dose: 324 mg Documented by: [id number] Epoetin Jonel (Epoetin Jonel 10,000 Units/Ml Vial) 10,000 units IV TODAY@0900 [facility] Stop: 10/03/20 23:59 Last Admin: 10/03/20 11:44 Dose: 10,000 units Documented by: [id number] Levetiracetam 500 mg/ Sodium (Chloride) 105 mls @ 440 mls/hr IV NOW STA Stop: 09/30/20 18:32 Last Infusion: 09/30/20 19:49 Dose: 0 mls/hr Documented by: [id number] Admin: 09/30/20 19:01 Dose: 440 mls/hr Documented by: [id number] Ioversol (Optiray 320 125ml) 119 ml IV ONCE ONE Stop: 10/02/20 14:05 Last Admin: 10/02/20 14:04 Dose: 119 ml Documented by: [id number] Non-Formulary Medication (Citalopram) 10 mg PO HS [facility] Stop: 10/30/20 20:59 Last Admin: 10/01/20 01:16 Dose: Not Given Documented by: [id number] Description This is a 21 electrode EEG with a single channel dedicated to limited EKG. The electrodes were placed in accordance with the International 10-20 system. History: epilepsy, dementia, multiple strokes, unresponsive episode Rx: keppra, citalopram Start/Stop: 5:55am/6:15am Attending reading: Olivia Shell EEG Description: EEG background: Background was predominantly 5-7 Hz theta slowing, occasionally reaching 8 Hz. No well formed posterior dominant rhythm was observed. The EEG is continuous. There is variability and reactivity present. Activation and reactivity: Photic stimulation performed without any abnormalities noted. No photic driving observed. Hyperventilation was not performed. Sleep: No sleep architecture noted. Epileptiform discharges: No epileptiform discharges were observed. Rhythmic and periodic patterns: None Seizures: None Impression: This was an abnormal EEG due to mild generalized slowing suggestive of a toxic-m etabolic encephalopathy, dementia or other global cerebral dysfunction. No seizures or epileptiform discharges were seen. Clinical correlation required. [facility] EEG Procedure Codes Indication for Procedure (1) Seizure: (2) Stroke: (3) Dementia: Neurology Neurology: [id number] EEG include record awake & drowsy
[2020-10-04] MEDS ORDERED: STROKE PATIENT DISCHARGE STA (14:34)
--- NOTE | 2020-10-11 10:43 | Discharge Summary ---
Date of Service October 04, 2020 Admission HPI Per Admitting Provider 75 YOM resident of [facility], brought to the emergency room today for suspected seizure like event or TIA/CVA. MR Mata has a history of ESRD on hemodialysis (right tunneled perm cath) (LT AC AV fistula), Multiple CVA, HfRef (40-45%), DM II, CAD, chronic constipation, right hip intratrochanteric nail last month. Patient reportedly had an episode of right gaze deviation, and alteration in mentation at dialysis unit and again in the EMD. In the EMD the patient was stroke alerted secondary to his aphasia and mentation a stroke alert was called. The symptoms resolved and therefore along with his his cerebral history, was determined to not be a tPA candidate. Patient baseline mentation through chart review is answering yes and shaking head no. Patient appears to be appropriate, with his responses. Will admit the patient for observation, 24 hour telemetry to rule out afib/dysrhythmia, and neurological assessments. Principal Diagnosis stroke. Discharge Exam Constitutional: no acute distress Eyes: PERRL ENMT: Mouth: + dry oral mucous membranes Respiratory: normal respiratory effort, lungs clear to auscultation Cardiovascular: Rate/Rhythm: regular rate and regular rhythm Heart Sounds: normal S1, normal S2 and + murmur (2/6 systolic LSB) Vessels: posterior tibial pulses present and dorsalis pedis pulses present; no JVD Extremities: no edema Gastrointestinal (Abdomen): normal bowel sounds, soft, nontender, no hepatosplenomegaly Skin: right upper chest dialysis catheter c/d/i Neurologic: + focal motor deficit (hemiplegia RUE/RLE)/ inability to turn to the left Psychiatric: Orientation: awake Discharge Data Allergies Allergy/AdvReac Type Severity Reaction Status Date / Time adhesive Allergy Unknown BLISTERING Verified 10/11/20 09:49 OF SKIN latex Allergy Unknown Rash Verified 10/11/20 09:49 Consultations 09/30/20 18:44 ED Decision to Admit Stat 10/01/20 00:14 Consult Case Management - Discharge Planning Routine Consult Neurology Routine Ordered Studies 09/30/20 14:56 CT head/brain wo con Stat 10/01/20 17:42 MR brain wo con Routine 10/02/20 13:00 CT angio head w con Routine CT angio neck with con Routine Hospital Course (1) Stroke: MRI brain 10/01/20 with acute right occipital lobe stroke. This likely accounts for his pre-hospital gaze preference and altered MS. Echo was just done in 08/2020 thus will defer. LDL ess than 70 on lipid profile (currently on lipitor 80mg daily). This stroke occurred while on plavix. Plan - * CTA head/neck as recommended by Dr Gray; permission given by nephrology for use of IV contrast for studies * again defer on echo * add 81mg asa to his plavix * other option would be changing to aggrenox but given his extensive PAD history seems that asa/plavix would be best * could consider EEG but doubt this was seizure * keppra level pending; continue keppra in meantime * speech, PT, OT evals * appreciate neurology consultation (bold) * likely multifactorial as he has significant intracranial vascular disease, multiple prior strokes, ESRD, h/o seizures on keppra and likely vascular dementia at baseline. Interestingly, his A1c has dropped significantly which does bring about the concern that he could be having hypoglycemia triggering some of his episodes of AMS or seizure-like activity. Per my previous examinations, he does appear close to his baseline currently. - would hold further diabetes medication and use SSI only - continue maximal medical therapy with atorvastatin 40mg daily and plavix 75mg daily - continue stroke prevention goals with PCP (A1c<7, LDL<70, BP<130/80) - continue keppra 500mg qTuThSatSun at 4pm (24 hours after HD session) - he is welcome to f/u in neurology clinic in [address] Shell or NAN Sim) (2) Cerebral artery occlusion with cerebral infarction: Prior CVA of left frontal region leading to right sided hemiparesis and aphasia. Additional old strokes seen on MRI brain. See "stroke" above. (3) Acute metabolic encephalopathy: Likely due to acute right-sided occipital lobe stroke. Ruling out UTI - urine cx pending. No metabolic abnormalities on routine labs. COVID-19 testing negative. Supportive care. (4) Dementia: Likely vascular dementia due to strokes and extensive vascular disease. Severe atrophy with areas of encephalomalacia on MRI. (5) Aphasia: Severe expressive aphasia - 2nd to prior left-sided frontal lobe stroke. (6) ESRD on dialysis: HD schedule M/W/F. Appreciate [facility] Nephrology assistance. Continue Nephrocaps and calcitriol. (7) Hip fracture: RIGHT. s/p ORIF on 08/23/20. (8) Hypertension: Hold norvasc in light of acute stroke. (9) Hypercholesteremia: Cont high-intensity statin. LDL at goal. (10) Seizure: Continue Keppra 500mg po q Saturday, , Saturday, Saturday. Keppra level pending. No seizure activity seen during the stay. (11) Depression: Continue Celexa 10mg HS. (12) GERD (gastroesophageal reflux disease): Continue Pepcid 40mg po BID. This is high dose given his renal failure. Consider reducing dose. (13) Diabetes mellitus, type 2: Controlled. Hold amaryl. Would strongly consider NOT continuing this in light of ESRD - at high risk of hypoglycemia. Last few A1Cs very low - chronic anemia could be skewing - but [id number] would not continue the amaryl. (14) CAD (coronary artery disease): s/p CABG 2007 Cont statin Cont plavix Add asa in light of acute stroke (15) Renal artery stenosis: noted (16) Second degree AV block, Mobitz type I: history of, and intermittent runs of such on telemetry since admission cont tele monitoring (17) Macrocytic anemia: B12 level today wnl. Previous TSH and folate levels wnl. (18) Chronic systolic CHF (congestive heart failure): Clinically compensated on exam. Previous echo 08/2020 with EF 40%. Likely ischemic cardiomyopathy. (19) Carotid artery stenosis: h/o b/l CEAs. CTA head/neck. Statin. Plavix. adding asa. (20) DVT prophylaxis: heparin 5000 BID Total Time Total Time Spent Total Time Spent (In Minutes): 32 Total Time Includes: Examination of the Patient, Discharge Planning and Medication Reconciliation Discharge Plan Discharge Items Patient Disposition: Transfer [facility] Reason For Visit: CVA VS SEIZURE Discharge Diagnosis: CVA Activity: Resume your previous activity Non-emergency contact: Primary Care Provider Call non-emergency contact if: you have any medication questions Follow-up/Referrals: [facility] [Primary Care Provider] - Diet: Carb Consistent or DM2, Dialysis Renal and Low Potassium (2gm) Addtl Attending Provider Instructions: continue maximal medical therapy with atorvastatin 40mg daily and plavix 75mg daily - continue stroke prevention goals with PCP (A1c<7, LDL<70, BP<130/80) - continue keppra 500mg qTuThSatSun at 4pm (24 hours after HD session) - to f/u in neurology clinic in [address] ([address] Shell or NAN Sim) Risk Factors for Stroke: You can reduce your chances of stroke by working with your medical provider to adopt a healthy lifestyle. Some specific ways to lower your chance of stroke are: * If you are a smoker, now is the time to stop smoking cigarettes * If you are diabetic, improve the control of your blood sugars * Avoid excessive amounts of alcohol * Control high blood pressure * Lose weight if you are overweight * Be sure to lead an active lifestyle * Eat a healthy diet low in salt, cholesterol and fat You should know about other risk factors for stroke that you are unable to control. These include: * Age 55 years or older * Male gender * Certain racial groups: , or / * Family History of Stroke, Mini stroke or Heart Attack * Sickle Cell Disease Follow Up: It is important for you to keep your follow up appointments with your medical provider. Who to Call and When: Medical Emergencies: Call 911 immediately if you experience any of the following warning signs and symptoms of Stroke: * Sudden numbness or weakness of the face, arm or leg, especially on one side of the body * Sudden confusion, trouble speaking or understanding * Sudden trouble seeing in one or both eyes * Sudden trouble walking, dizziness, loss of balance or coordination * Sudden severe headache with no cause Do not delay calling 911 if you experience any warning signs or symptoms of a stroke. Delay in seeking medical attention may affect what treatments can be given to you. . Pending Studies at Discharge: No Stand-Alone Forms: My [employer], Smoking Cessation Skilled Items Patient informed of condition?: No DNR: No Discharge Level of Care: Skilled Communicable Disease: No Discharge Prognosis: Stable Lines: None Urinary Catheter: No Medications and DC Order Prescriptions: New isosorbide mononitrate 30 mg tablet extended release 24 hr 30 mg PO DAILY Qty: 30 RF: 0 Continued calcitriol [Rocaltrol] 0.25 mcg capsule 0.25 mcg PO 3XWK Qty: 15 RF: 5 citalopram 10 mg tablet 10 mg PO HS Qty: 30 RF: 5 famotidine 40 mg tablet 40 mg PO BID Qty: 180 RF: 3 docusate sodium [Stool Softener] 100 mg capsule 100 mg PO DAILY RF: 0 Renal Caps 1 mg Capsule 1 cap PO QAM Qty: 30 RF: 0 polyethylene glycol 3350 [Miralax] 17 gram powder in packet 17 gm PO DAILY Qty: 0 RF: 0 atorvastatin [Lipitor] 80 mg tablet 80 mg PO HS RF: 0 levetiracetam [Keppra] 500 mg tablet 500 mg PO 4XWK RF: 0 clopidogrel [Plavix] 75 mg tablet 75 mg PO DAILY RF: 0 acetaminophen 325 mg tablet 650 mg PO Q6H MDD 3000 MG APAP/24 HOURS PRN (Reason: Fever Or Pain) RF: 0 amlodipine [Norvasc] 5 mg tablet 2.5 mg PO HS RF: 0 sennosides [Senokot] 8.6 mg tablet 8.6 mg PO Q48H PRN (Reason: Constipation) RF: 0 hydrocortisone [Proctosol HC] 2.5 % cream with perineal applicator 1 appln [place] Q24H PRN (Reason: Itching) RF: 0 Discontinued isosorbide mononitrate 60 mg tablet extended release 24 hr 60 mg PO DAILY Qty: 30 RF: 5 glipizide 2.5 mg tablet extended release 24hr 2.5 mg PO QAM RF: 0 Discharge Orders: Discharge Order (Routine); Ordered 10/04/20 Ordered By: Luis Enrique Pacheco Admission Data Admit Date/Time: 09/30/20 21:23 Attending Provider: Luis Enrique Pacheco Admit Provider: Archana Melendrez Primary Care Provider: [facility] Other Providers: Deedee Lugo ; Demarco Gray ; Pham, Other Interventions: Discharge Summary Assessment (RN) Last Done: 10/04/20 20:20 Coding Level of Care Code D/C Day Management >30 mins Diagnoses Stroke I63.9 Cerebral artery occlusion with cerebral infarction I63.50 Acute metabolic encephalopathy G93.41 Dementia F03.90 Aphasia R47.01 ESRD on dialysis N18.6; Z99.2 Hip fracture S72.009A Hypertension I10 Hypercholesteremia E78.00 Seizure R56.9 Depression F32.9 Depression Type: unspecified GERD (gastroesophageal reflux disease) K21.9 Esophagitis presence: esophagitis presence not specified Diabetes mellitus, type 2 E11.9 CAD (coronary artery disease) I25.10 Coronary Disease-Associated Artery/Lesion type: mc[place]ath artery [place] vs. transplanted heart: mcgrath heart Associated angina: without angina Renal artery stenosis I70.1 Second degree AV block, Mobitz type I I44.1 Macrocytic anemia D53.9 Chronic systolic CHF (congestive heart failure) I50.22 Carotid artery stenosis I65.29 DVT prophylaxis Z29.9
== END 2020-10-04 20:20 | DRG 64 ==
LOC: ED 14:46 → 2N 14:46 → SUATTDRO 21:23 → 2N 22:15 → SUATTDRO 10-02 12:16

== ENCOUNTER 2020-10-11 09:07 | Inpatient (IN) ==
--- NOTE | 2020-10-11 10:13 | XRay Report ---
SINGLE VIEW CHEST CLINICAL HISTORY: Sepsis. FINDINGS: An AP, portable, upright chest radiograph is compared to study dated 10/01/2020 and correlat ed with chest CT dated 02/04/2020. The examination is degraded by portable technique and patient rotat ion. A right sided central venous catheter is unchanged in position. The patient is status post midli ne sternotomy. The heart is enlarged. There is mild pulmonary vascular congestion. Emphysema and clinical documentation developer levi interstitial thickening are similar to previous. There is left basilar consolidation with a small left pleural effusion. No pneumothorax is seen. The skeletal structures are osteopenic. The bony tho rax is grossly intact. IMPRESSION: 1. There is left basilar consolidation with a small left pleural effusion. The appearance is typical for pneumonia/aspiration pneumonitis. Clinical correlation will be required and radiographic follow-u p to resolution is recommended. 2. Cardiomegaly and emphysema with mild pulmonary vascular congestion. ACT 112: Negative or not required by law. Electronically signed by: Servando Mtz M.D. 10/11/2020 10:12 AM
--- NOTE | 2020-10-11 10:35 | Emergency Department Note ---
History of Present Illness General Chief complaint: Altered Mental Status Time Seen by Provider: 10/11/20 09:29 Source: patient, family, EMS, RN notes reviewed and old records reviewed Mode of arrival: EMS Limitations: altered mental status History of Present Illness Provider complaint: AMS Onset (ago): hour(s) 3 Location: head Radiation: non-radiation Pain Consistency: + constant Maximum Pain Intensity: 3 Current Pain Intensity: 3 Treatments prior to arrival: none This is a 75-year-old male coming in from [facility]. Both family as well as the long-term were concerned that the patient has had a acute change in his mental status. The patient only replies yes or no to questions at this point. When asked if the patient is having chest pain the patient replies yes. He otherwise falls asleep on my physical examination. Home Medications Medication Instructions Recorded Confirmed Type Renal Caps 1 cap PO QAM #30 cap 11/20/19 10/11/20 Rx polyethylene glycol 3350 [Miralax] 17 gm PO DAILY #0 ea 12/04/19 10/11/20 Rx atorvastatin [Lipitor] 80 mg PO HS 02/18/20 10/11/20 History clopidogrel [Plavix] 75 mg PO DAILY 02/18/20 10/11/20 History levetiracetam [Keppra] 500 mg PO 4XWK 02/18/20 10/11/20 History famotidine 40 mg tablet 40 mg PO BID #180 tab 03/01/20 10/11/20 Rx docusate sodium [Stool Softener] 100 mg PO DAILY 04/13/20 10/11/20 History calcitriol 0.25 mcg capsule 0.25 mcg PO 3XWK #15 cap 08/09/20 10/11/20 Rx citalopram 10 mg tablet 10 mg PO HS #30 tab 09/05/20 10/11/20 Rx acetaminophen 650 mg PO Q6H PRN MDD 3000 MG 09/30/20 10/11/20 History APAP/24 HOURS amlodipine [Norvasc] 2.5 mg PO HS 09/30/20 10/11/20 History hydrocortisone [Proctosol HC] 1 appln LA Q24H PRN 09/30/20 10/11/20 History sennosides [Senokot] 8.6 mg PO Q48H PRN 09/30/20 10/11/20 History isosorbide mononitrate 30 mg PO DAILY #30 tab 10/04/20 10/11/20 Rx Allergies Allergy/AdvReac Type Severity Reaction Status Date / Time adhesive Allergy Unknown BLISTERING Verified 10/11/20 09:49 OF SKIN latex Allergy Unknown Rash Verified 10/11/20 09:49 Past Med/Surg History Medical History Benign prostatic hyperplasia CAD (coronary artery disease) s/p CABG 2007 Carotid artery stenosis s/p remote R & L endarterectomies with L re-occlusion sometime before 2010. Being monitored by [facility], on Plavix. Chronic kidney disease Congestive heart failure (CHF) Dementia Depression Diabetes mellitus, type 2 A1C 5.4% 11/2019. Not on any medication. 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 Hyperlipidemia Hypertension Memory problem PT REPORTS "DEMENTIA" "COMES AND GOES" Myocardial Infarction 1989? Renal artery stenosis s/p left renal artery stenting; moderate right renal artery stenosis but no significant left renal artery stenosis on 11/2019 duplex Seizure disorder Stable on Keppra, no seizure for "a long time." Follows with [facility]. SNHL (sensorineural hearing loss) Surgical History History of aorto-femoral bypass History of bypass graft (non vein) Aortic-femoral or bifemoral History of carotid endarterectomy L 1998, R 2009 History of cataract surgery RT/LEFT History of colonoscopy History of esophagogastroduodenoscopy (EGD) History of tooth extraction History of vascular access device IJ FOR DIAYLSIS S/P CABG (coronary artery bypass graft) (2007) [facility] Family History Brother Hypertension Hypercholesteremia Sister Diabetes Unknown Hypertension Cardiac disorder Social History Smoking Status: Unknown if ever smoked Tobacco Type: Cigarettes Cigarettes Per Day: 30; Second Hand Exposure: No; Hx Alcohol Use: No (unable to assess) Hx Substance Use: No (unable to assess) Preferred Language: Azeri Communication Ability: Unable Communication Ability Comment: aphasic Visual Impairment: No Limitations Retail Agent Required: No Beliefs That Will Affect Care: None marital status: Current Living Situation: Spouse Current Living Situation Comment: at [facility] current occupational status: 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" Other Information That Helps Us Care for You: No Feels Safe at Home: Yes Safety Concerns: Feels Safe At This Time caffeine: No Seatbelt Use: always Assistive Devices: BiPap, Glasses and Oxygen - Continuous Review of Systems Unobtainable due to cognitive status Physical Exam Vital Signs Vital Signs - 24 hr 10/11/20 09:14 10/11/20 09:18 10/11/20 09:19 Temperature 37 C Temperature Source Oral Pulse Rate 107 H 108 H 107 H Pulse Rate from SpO2 Sensor 107 H 108 H Pulse Rhythm Regular Pulse Strength Normal Respiratory Rate 20 23 18 Respiratory Effort / Characteristics Non-Labored Spontaneous Respiratory Depth Normal Respiratory Pattern Regular Blood Pressure 147/105 H 147/105 H Blood Pressure Mean 119 119 Pulse Oximetry 93 93 94 Oxygen Delivery Method Room Air Sepsis Recent Fever Within 48 Hours No Sepsis New/Unexplained Change in Mental Status N/A Sepsis Action Taken by Nursing No Action Required 10/11/20 09:30 10/11/20 09:54 10/11/20 10:00 Temperature Temperature Source Pulse Rate 105 H 99 H Pulse Rate from SpO2 Sensor 108 H 89 Pulse Rhythm Pulse Strength Respiratory Rate 21 19 Respiratory Effort / Characteristics Non-Labored Spontaneous Respiratory Depth Respiratory Pattern Blood Pressure 134/85 118/77 Blood Pressure Mean 101 90 Pulse Oximetry 92 Oxygen Delivery Method Sepsis Recent Fever Within 48 Hours Sepsis New/Unexplained Change in Mental Status Sepsis Action Taken by Nursing 10/11/20 10:24 10/11/20 10:30 10/11/20 11:00 Temperature Temperature Source Pulse Rate 94 H 90 Pulse Rate from SpO2 Sensor Pulse Rhythm Pulse Strength Respiratory Rate 19 20 Respiratory Effort / Characteristics Respiratory Depth Respiratory Pattern Blood Pressure Blood Pressure Mean Pulse Oximetry Oxygen Delivery Method Room Air Sepsis Recent Fever Within 48 Hours Sepsis New/Unexplained Change in Mental Status Sepsis Action Taken by Nursing 10/11/20 11:33 10/11/20 12:00 10/11/20 12:30 Temperature Temperature Source Pulse Rate 78 82 78 Pulse Rate from SpO2 Sensor 94 H 84 Pulse Rhythm Pulse Strength Respiratory Rate 16 24 13 Respiratory Effort / Characteristics Respiratory Depth Respiratory Pattern Blood Pressure 152/100 H 126/71 138/92 Blood Pressure Mean 117 89 107 Pulse Oximetry 90 91 Oxygen Delivery Method Sepsis Recent Fever Within 48 Hours Sepsis New/Unexplained Change in Mental Status Sepsis Action Taken by Nursing 10/11/20 13:00 Temperature Temperature Source Pulse Rate 78 Pulse Rate from SpO2 Sensor 92 H Pulse Rhythm Pulse Strength Respiratory Rate 21 Respiratory Effort / Characteristics Respiratory Depth Respiratory Pattern Blood Pressure 143/95 H Blood Pressure Mean 111 Pulse Oximetry 91 Oxygen Delivery Method Sepsis Recent Fever Within 48 Hours Sepsis New/Unexplained Change in Mental Status Sepsis Action Taken by Nursing VITAL SIGNS - Vital signs and nursing notes were reviewed. GENERAL 75-year-old male appearing stated age who is in no acute distress. Cachectic in appearance falls asleep on exam. SKIN - Without rashes. HEAD - NC/AT. EYES - PERRL with EOMI bilaterally. Sclera anicteric. Palpebral conjunctiva pink and moist with no injection noted. EARS - No deformities of external structures noted on gross examination bilaterally. NOSE - Midline and without cyanosis. No epistaxis or purulent drainage noted. Septum midline without deviation or septal hematoma noted. MOUTH/OROPHARYNX - Without perioral cyanosis. Buccal mucosa pink and moist and without leukoplakia. Tongue midline with equal elevation of palate bilaterally. No tonsillar hypertrophy, erythema, or exudates noted. dentition noted. NECK - Neck with FROM. Supple to palpation. lymphadenopathy noted. No nuchal rigidity. LUNGS - Chest wall symmetric without accessory muscle use, intercostals ret ractions, or central cyanosis. Normal vesicular breath sounds CTA B/L. No wheezes, rales, or rhonchi appreciated. CARDIAC - RRR with S1/S2. No murmur, rubs, or gallops appreciated. ABDOMEN - Abdominal contour without pulsations or visible masses. BS normoactive all four quadrants. No tenderness, palpable masses, hepatosplenomegaly, or ascites noted. EXTREMITIES - No clubbing or peripheral cyanosis. No pretibial edema present. +3/5 radial, posterior tibial, and dorsalis pedis pulses palpated throughout. +5/5 strength noted in UE/LE bilaterally. NEUROLOGIC - Cranial nerves II through XII grossly intact. Course Administered Medications Thiamine HCl (Thiamine Hcl 100 Mg Tab) 100 mg PO QAM [facility] Stop: 11/10/20 14:29 Last Admin: 10/11/20 16:40 Dose: 100 mg Documented by: [id number] Discontinued Medications Piperacillin Sod/Tazobactam Sod (Zosyn) 4.5 gm in 120 mls @ 240 mls/hr IV NOW ONE Stop: 10/11/20 11:21 Last Infusion: 10/11/20 12:26 Dose: 0 mls/hr Documented by: [id number] Admin: 10/11/20 11:50 Dose: 240 mls/hr Documented by: [id number] Levofloxacin/Dextrose (Levaquin/D5w) 750 mg in 150 mls @ 100 mls/hr IV NOW STA Stop: 10/11/20 12:21 Last Infusion: 10/11/20 14:49 Dose: 0 mls/hr Documented by: [id number] Infusion: 10/11/20 13:58 Dose: 100 mls/hr Documented by: [id number] Infusion: 10/11/20 12:40 Dose: 0 mls/hr Documented by: [id number] Admin: 10/11/20 11:50 Dose: 100 mls/hr Documented by: [id number] Vancomycin HCl (Vancomycin Hcl) 1,000 mg in 270 mls @ 200 mls/hr IV NOW STA; Protocol Stop: 10/11/20 12:12 Last Infusion: 10/11/20 16:38 Dose: 0 mls/hr Documented by: [id number] Infusion: 10/11/20 13:59 Dose: 200 mls/hr Documented by: [id number] Infusion: 10/11/20 12:40 Dose: 0 mls/hr Documented by: [id number] Admin: 10/11/20 12:32 Dose: 200 mls/hr Documented by: [id number] Miscellaneous Information (Piperacill/Tazobac Consult Active) 1 ea N/A UD PRN PRN Reason: Consult Stop: 11/10/20 10:51 Last Admin: 10/11/20 12:32 Dose: 1 ea Documented by: [id number] Miscellaneous Information (Vancomycin Consult Active) 1 ea N/A UD PRN PRN Reason: Consult Stop: 11/10/20 10:51 Last Admin: 10/11/20 12:32 Dose: 1 ea Documented by: [id number] Medical Decision Making Differential Diagnosis Infection, dehydration, metabolic abnormality, hypo/hyperglycemia, electrolyte disturbance, anemia, hypoxia, cardiac sources, intracerebral event, toxicologic, neurologic, as well as other pathologies. Medical Records Attestation: I reviewed the patient's medical records. Home Medications Current Medication List: was personally reviewed by me Laboratory Data Attestation: I reviewed the patient's lab results. Result diagrams: 10/11/20 10:39 10/11/20 10:39 Lab Results 10/11/20 10/11/20 10/11/20 Range/Units 09:50 09:50 10:39 WBC 10.85 H (4.8-10.8) K/uL RBC 3.69 L (4.7-6.1) M/uL Hgb 11.6 L (14.0-18.0) g/dL Hct 38.3 L (42-52) % MCV 103.8 H (80-100) fL MCH 31.4 (25-34) pg MCHC 30.3 L (32-36) g/dL RDW Std Deviation 67.5 H (36.4-46.3) fL RDW Coeff of Shayy 17.7 H (11.5-14.5) % Plt Count 325 (130-400) K/uL MPV 10.4 (7.4-10.4) fL Immature Gran % (Auto) 0.5 % Neut % (Auto) 82.2 % Lymph % (Auto) 12.9 % [place] % (Auto) 4.2 % Eos % (Auto) 0.0 % Baso % (Auto) 0.2 % Neut # (Auto) 8.92 H (1.4-6.5) K/uL Lymph # (Auto) 1.40 (1.2-3.4) K/uL [place] # (Auto) 0.46 (0.11-0.59) K/uL Eos # (Auto) 0.00 (0-0.5) K/uL Baso # (Auto) 0.02 (0-0.2) K/uL Immature Gran # (Auto) 0.05 H (0.00-0.02) K/uL Absolute Nucleated RBC 0.06 H (0-0) K/uL Nucleated RBC % (auto) 0.5 % PT (9.0-12.0) Seconds INR (0.9-1.1) APTT (21.0-31.0) Seconds PTT Ratio ABG pH (7.35-7.45) ABG pCO2 (35-46) mmHg ABG pO2 (80-95) mmHg ABG HCO3 (19-24) mmol/L ABG O2 Saturation (90-95) % ABG Base Excess (-9-1.8) mEq/L Sonny Test (Pos) VBG pH VBG pCO2 VBG pO2 VBG HCO3 VBG O2 Saturation VBG Base Excess Barometric Pressure Oxygen Given Sodium (136-145) mmol/L Potassium (3.5-5.1) mmol/L Chloride (98-107) mmol/L Carbon Dioxide (21-32) mmol/L Anion Gap (3-11) BUN (7-18) mg/dl Creatinine (0.6-1.4) mg/dl Est Cr Clr Drug Dosing ml/min Est GFR ( Amer) Est GFR (Non-Af Amer) BUN/Creatinine Ratio (10-20) Glucose (70-99) mg/dl Lactate (0.4-2.0) mmol/L Calcium (8.5-10.1) mg/dl Magnesium (1.8-2.4) mg/dl Total Bilirubin (0.2-1) mg/dl AST (15-37) U/L ALT (12-78) U/L Alkaline Phosphatase (45-117) U/L Ammonia (11-32) umol/L Lactate Dehydrogenase (87-241) U/L Total Creatine Kinase (39-308) U/L CK-MB (CK-2) (0.5-3.6) ng/ml CK/CKMB % Calc (0-3.0) Troponin I (0-0.045) ng/ml Total Protein (6.4-8.2) gm/dl Albumin (3.4-5.0) gm/dl Globulin (2.5-4.0) gm/dl Albumin/Globulin Ratio (0.9-2) Vitamin B12 (193-986) pg/ml Folate (>5.38) ng/ml TSH (0.300-4.500) uIu/ml COVID-19 Eval [email or web address] SARS-CoV-2, RNA, NAAT NEGATIVE (NEGATIVE) 10/11/20 10/11/20 10/11/20 Range/Units 10:39 10:39 10:39 WBC (4.8-10.8) K/uL RBC (4.7-6.1) M/uL Hgb (14.0-18.0) g/dL Hct (42-52) % MCV (80-100) fL MCH (25-34) pg MCHC (32-36) g/dL RDW Std Deviation (36.4-46.3) fL RDW Coeff of Shayy (11.5-14.5) % Plt Count (130-400) K/uL MPV (7.4-10.4) fL Immature Gran % (Auto) % Neut % (Auto) % Lymph % (Auto) % [place] % (Auto) % Eos % (Auto) % Baso % (Auto) % Neut # (Auto) (1.4-6.5) K/uL Lymph # (Auto) (1.2-3.4) K/uL [place] # (Auto) (0.11-0.59) K/uL Eos # (Auto) (0-0.5) K/uL Baso # (Auto) (0-0.2) K/uL Immature Gran # (Auto) (0.00-0.02) K/uL Absolute Nucleated RBC (0-0) K/uL Nucleated RBC % (auto) % PT 11.9 (9.0-12.0) Seconds INR 1.1 (0.9-1.1) APTT 30.4 (21.0-31.0) Seconds PTT Ratio 1.1 ABG pH (7.35-7.45) ABG pCO2 (35-46) mmHg ABG pO2 (80-95) mmHg ABG HCO3 (19-24) mmol/L ABG O2 Saturation (90-95) % ABG Base Excess (-9-1.8) mEq/L Sonny Test (Pos) VBG pH VBG pCO2 VBG pO2 VBG HCO3 VBG O2 Saturation VBG Base Excess Barometric Pressure Oxygen Given Sodium 137 (136-145) mmol/L Potassium 4.6 (3.5-5.1) mmol/L Chloride 99 (98-107) mmol/L Carbon Dioxide 33 H (21-32) mmol/L Anion Gap 5.0 (3-11) BUN 26 H (7-18) mg/dl Creatinine 3.02 H (0.6-1.4) mg/dl Est Cr Clr Drug Dosing 17.7 ml/min Est GFR ( Amer) 22.3 Est GFR (Non-Af Amer) 19.3 BUN/Creatinine Ratio 8.5 L (10-20) Glucose 153 H (70-99) mg/dl Lactate (0.4-2.0) mmol/L Calcium 8.3 L (8.5-10.1) mg/dl Magnesium 2.3 (1.8-2.4) mg/dl Total Bilirubin 0.7 (0.2-1) mg/dl AST 18 (15-37) U/L ALT 22 (12-78) U/L Alkaline Phosphatase 122 H (45-117) U/L Ammonia 14.0 (11-32) umol/L Lactate Dehydrogenase (87-241) U/L Total Creatine Kinase 72 (39-308) U/L CK-MB (CK-2) 5.7 H (0.5-3.6) ng/ml CK/CKMB % Calc 7.9 H (0-3.0) Troponin I 0.055 H* (0-0.045) ng/ml Total Protein 7.0 (6.4-8.2) gm/dl Albumin 2.6 L (3.4-5.0) gm/dl Globulin 4.4 H (2.5-4.0) gm/dl Albumin/Globulin Ratio 0.6 L (0.9-2) Vitamin B12 (193-986) pg/ml Folate (>5.38) ng/ml TSH (0.300-4.500) uIu/ml COVID-19 Eval Order SARS-CoV-2, RNA, NAAT (NEGATIVE) 10/11/20 10/11/20 10/11/20 Range/Units 10:39 10:39 10:41 WBC (4.8-10.8) K/uL RBC (4.7-6.1) M/uL Hgb (14.0-18.0) g/dL Hct (42-52) % MCV (80-100) fL MCH (25-34) pg MCHC (32-36) g/dL RDW Std Deviation (36.4-46.3) fL RDW Coeff of Shayy (11.5-14.5) % Plt Count (130-400) K/uL MPV (7.4-10.4) fL Immature Gran % (Auto) % Neut % (Auto) % Lymph % (Auto) % [place] % (Auto) % Eos % (Auto) % Baso % (Auto) % Neut # (Auto) (1.4-6.5) K/uL Lymph # (Auto) (1.2-3.4) K/uL [place] # (Auto) (0.11-0.59) K/uL Eos # (Auto) (0-0.5) K/uL Baso # (Auto) (0-0.2) K/uL Immature Gran # (Auto) (0.00-0.02) K/uL Absolute Nucleated RBC (0-0) K/uL Nucleated RBC % (auto) % PT (9.0-12.0) Seconds INR (0.9-1.1) APTT (21.0-31.0) Seconds PTT Ratio ABG pH (7.35-7.45) ABG pCO2 (35-46) mmHg ABG pO2 (80-95) mmHg ABG HCO3 (19-24) mmol/L ABG O2 Saturation (90-95) % ABG Base Excess (-9-1.8) mEq/L Sonny Test (Pos) VBG pH VBG pCO2 VBG pO2 VBG HCO3 VBG O2 Saturation VBG Base Excess Barometric Pressure Oxygen Given Sodium (136-145) mmol/L Potassium (3.5-5.1) mmol/L Chloride (98-107) mmol/L Carbon Dioxide (21-32) mmol/L Anion Gap (3-11) BUN (7-18) mg/dl Creatinine (0.6-1.4) mg/dl Est Cr Clr Drug Dosing ml/min Est GFR ( Amer) Est GFR (Non-Af Amer) BUN/Creatinine Ratio (10-20) Glucose (70-99) mg/dl Lactate 3.1 H* (0.4-2.0) mmol/L Calcium (8.5-10.1) mg/dl Magnesium (1.8-2.4) mg/dl Total Bilirubin (0.2-1) mg/dl AST (15-37) U/L ALT (12-78) U/L Alkaline Phosphatase (45-117) U/L Ammonia (11-32) umol/L Lactate Dehydrogenase 253 H (87-241) U/L Total Creatine Kinase (39-308) U/L CK-MB (CK-2) (0.5-3.6) ng/ml CK/CKMB % Calc (0-3.0) Troponin I (0-0.045) ng/ml Total Protein (6.4-8.2) gm/dl Albumin (3.4-5.0) gm/dl Globulin (2.5-4.0) gm/dl Albumin/Globulin Ratio (0.9-2) Vitamin B12 (193-986) pg/ml Folate (>5.38) ng/ml TSH 3.470 (0.300-4.500) uIu/ml COVID-19 Eval Order SARS-CoV-2, RNA, NAAT (NEGATIVE) 10/11/20 10/11/20 10/11/20 Range/Units 13:03 13:03 13:36 WBC (4.8-10.8) K/uL RBC (4.7-6.1) M/uL Hgb (14.0-18.0) g/dL Hct (42-52) % MCV (80-100) fL MCH (25-34) pg MCHC (32-36) g/dL RDW Std Deviation (36.4-46.3) fL RDW Coeff of Shayy (11.5-14.5) % Plt Count (130-400) K/uL MPV (7.4-10.4) fL Immature Gran % (Auto) % Neut % (Auto) % Lymph % (Auto) % [place] % (Auto) % Eos % (Auto) % Baso % (Auto) % Neut # (Auto) (1.4-6.5) K/uL Lymph # (Auto) (1.2-3.4) K/uL [place] # (Auto) (0.11-0.59) K/uL Eos # (Auto) (0-0.5) K/uL Baso # (Auto) (0-0.2) K/uL Immature Gran # (Auto) (0.00-0.02) K/uL Absolute Nucleated RBC (0-0) K/uL Nucleated RBC % (auto) % PT (9.0-12.0) Seconds INR (0.9-1.1) APTT (21.0-31.0) Seconds PTT Ratio ABG pH (7.35-7.45) ABG pCO2 (35-46) mmHg ABG pO2 (80-95) mmHg ABG HCO3 (19-24) mmol/L ABG O2 Saturation (90-95) % ABG Base Excess (-9-1.8) mEq/L Sonny Test (Pos) VBG pH Cancelled VBG pCO2 Cancelled VBG pO2 Cancelled VBG HCO3 Cancelled VBG O2 Saturation Cancelled VBG Base Excess Cancelled Barometric Pressure Cancelled Oxygen Given Sodium (136-145) mmol/L Potassium (3.5-5.1) mmol/L Chloride (98-107) mmol/L Carbon Dioxide (21-32) mmol/L Anion Gap (3-11) BUN (7-18) mg/dl Creatinine (0.6-1.4) mg/dl Est Cr Clr Drug Dosing ml/min Est GFR ( Amer) Est GFR (Non-Af Amer) BUN/Creatinine Ratio (10-20) Glucose (70-99) mg/dl Lactate 2.1 H* (0.4-2.0) mmol/L Calcium (8.5-10.1) mg/dl Magnesium (1.8-2.4) mg/dl Total Bilirubin (0.2-1) mg/dl AST (15-37) U/L ALT (12-78) U/L Alkaline Phosphatase (45-117) U/L Ammonia (11-32) umol/L Lactate Dehydrogenase (87-241) U/L Total Creatine Kinase (39-308) U/L CK-MB (CK-2) (0.5-3.6) ng/ml CK/CKMB % Calc (0-3.0) Troponin I (0-0.045) ng/ml Total Protein (6.4-8.2) gm/dl Albumin (3.4-5.0) gm/dl Globulin (2.5-4.0) gm/dl Albumin/Globulin Ratio (0.9-2) Vitamin B12 755 (193-986) pg/ml Folate > 20.00 (>5.38) ng/ml TSH (0.300-4.500) uIu/ml COVID-19 Eval Order SARS-CoV-2, RNA, NAAT (NEGATIVE) 10/11/20 Range/Units 13:37 WBC (4.8-10.8) K/uL RBC (4.7-6.1) M/uL Hgb (14.0-18.0) g/dL Hct (42-52) % MCV (80-100) fL MCH (25-34) pg MCHC (32-36) g/dL RDW Std Deviation (36.4-46.3) fL RDW Coeff of Shayy (11.5-14.5) % Plt Count (130-400) K/uL MPV (7.4-10.4) fL Immature Gran % (Auto) % Neut % (Auto) % Lymph % (Auto) % [place] % (Auto) % Eos % (Auto) % Baso % (Auto) % Neut # (Auto) (1.4-6.5) K/uL Lymph # (Auto) (1.2-3.4) K/uL [place] # (Auto) (0.11-0.59) K/uL Eos # (Auto) (0-0.5) K/uL Baso # (Auto) (0-0.2) K/uL Immature Gran # (Auto) (0.00-0.02) K/uL Absolute Nucleated RBC (0-0) K/uL Nucleated RBC % (auto) % PT (9.0-12.0) Seconds INR (0.9-1.1) APTT (21.0-31.0) Seconds PTT Ratio ABG pH 7.48 H (7.35-7.45) ABG pCO2 36 (35-46) mmHg ABG pO2 68 L (80-95) mmHg ABG HCO3 26 H (19-24) mmol/L ABG O2 Saturation 94.2 (90-95) % ABG Base Excess 2.9 H (-9-1.8) mEq/L Sonny Test Pos (Pos) VBG pH VBG pCO2 VBG pO2 VBG HCO3 VBG O2 Saturation VBG Base Excess Barometric Pressure 725.5 Oxygen Given ROOM AIR Sodium (136-145) mmol/L Potassium (3.5-5.1) mmol/L Chloride (98-107) mmol/L Carbon Dioxide (21-32) mmol/L Anion Gap (3-11) BUN (7-18) mg/dl Creatinine (0.6-1.4) mg/dl Est Cr Clr Drug Dosing ml/min Est GFR ( Amer) Est GFR (Non-Af Amer) BUN/Creatinine Ratio (10-20) Glucose (70-99) mg/dl Lactate (0.4-2.0) mmol/L Calcium (8.5-10.1) mg/dl Magnesium (1.8-2.4) mg/dl Total Bilirubin (0.2-1) mg/dl AST (15-37) U/L ALT (12-78) U/L Alkaline Phosphatase (45-117) U/L Ammonia (11-32) umol/L Lactate Dehydrogenase (87-241) U/L Total Creatine Kinase (39-308) U/L CK-MB (CK-2) (0.5-3.6) ng/ml CK/CKMB % Calc (0-3.0) Troponin I (0-0.045) ng/ml Total Protein (6.4-8.2) gm/dl Albumin (3.4-5.0) gm/dl Globulin (2.5-4.0) gm/dl Albumin/Globulin Ratio (0.9-2) Vitamin B12 (193-986) pg/ml Folate (>5.38) ng/ml TSH (0.300-4.500) uIu/ml COVID-19 Eval Order SARS-CoV-2, RNA, NAAT (NEGATIVE) Imaging Data Radiologist's Impression: [place], [place] [phone] XRay Report Patient: VIVIANA LANIER Admit Date: 10/11/20 MR#: [id number] Address1: [facility] MELA Acct ID:[id number] Address2: [facility] Date: [address] [facility] Zip: [place] [address] Age: 75 Location: ED Sex: M Room/Bed: Att Phy: Diagnosis: NA Sharon Phy: [facility] [place] Service Date: 10/11/20 Fam Phy: Interpreting Phy: Servando Mtz MD Admit Phy: Ordering Phy: Joss Villanueva MD cc: ~ SINGLE VIEW CHEST CLINICAL HISTORY: Sepsis. FINDINGS: An AP, portable, upright chest radiograph is compared to study dated 10/01/2020 and correlated with chest CT dated 02/04/2020. The examination is degraded by portable technique and patient rotation. A right sided central venous catheter is unchanged in position. The patient is status post midline sternotomy. The heart is enlarged. There is mild pulmonary vascular congestion. Emphysema and chronic interstitial thickening are similar to previous. There is left basilar consolidation with a small left pleural effusion. No pneumothorax is seen. The skeletal structures are osteopenic. The bony thorax is grossly intact. IMPRESSION: 1. There is left basilar consolidation with a small left pleural effusion. The appearance is typical for pneumonia/aspiration pneumonitis. Clinical correlation will be required and radiographic follow-up to resolution is recommended. 2. Cardiomegaly and emphysema with mild pulmonary vascular congestion. ACT 112: Negative or not required by law. Electronically signed by: Servando Mtz M.D. 10/11/2020 10:12 AM Dictated: 10/11/20 1004 Transcribed: 10/11/20 1004 [facility], [phone] CT Scan Report Patient: VIVIANA LANIER EAdmit Date: 10/11/20MR#: [id number]: [id number] DRAcct ID:[id number]: HEARTH[facility]IDEB[facility]: [facility] Zip: [place], [place] [address]Gfr: 75Location: EDSex: MRoom/Bed:Att Phy:Diagnosis: ALTERED MENTAL STATUSPri Phy: Shirin NathyService Date: 10/11/20Fa Phy:Interpreting Phy: [facility]ando [facility]tz [facility] Ordering Phy: Joss Villanueva MD cc: ~ CT SCAN OF THE BRAIN WITHOUT IV CONTRAST CLINICAL HISTORY: Change in mental status. COMPARISON STUDY: CT of the brain dated 09/30/2020. MRI of the brain dated 10/02/2020. TECHNIQUE: Unenhanced axial CT scan of the brain is performed from the vertex to the skull base. A dose lowering technique was utilized adhering to the principles of ALARA. CT DOSE: 614.27 mGy.cm FINDINGS: Brain parenchyma: Foci of left frontal COMBO left parietal, and right parieto- occipital encephalomalacia are unchanged and consistent with remote infarcts. There are age-related involutional changes noting moderate to advanced subcortical and periventricular microangiopathic change. There is no hemorrhage, mass effect, or evidence of acute territorial ischemia by CT criteria. Chronic lacunar infarcts are noted in the right thalamus and the right cerebellar hemisphere. Shin-white matter differentiation is preserved. No extra-axial fluid collection is seen. Ventricles, sulci, cisterns: Prominent secondary to involutional change. Intracranial vasculature: There is atherosclerotic calcification of the cavernous carotid and vertebral arteries. Calvarium: Unremarkable. Sinuses and mastoids: The visualized paranasal sinuses are clear. The mastoid air cells are well pneumatized. Orbits: The bony orbits are grossly intact. There are bilateral ocular lens implants. IMPRESSION: 1. There is no hemorrhage, mass effect, or evidence of acute territorial ischemia by CT criteria. 2. Senescent change and chronic infarcts as above. ACT 112: Negative or not required by law. Electronically signed by: Servando Mtz M.D. 10/11/2020 11:37 AM Dictated: 10/11/20 1133Transcribed: 10/11/20 1133 ECG Data Attestation: I personally reviewed and interpreted this ECG as follows: Rate (beats per minute): 107 Rhythm: + sinus tachycardia ECG Intervals/blocks: + First degree AV block ECG ST segments: + T-wave inversions (Lateral) ECG Findings: + Q waves (Inferior) Comparison ECG Date: from (09/30/2020) Change: the following changes noted (t wave inversions in lateral changes) MDM Narrative Patient was seen and evaluated as above in room A2. Review was performed of nursing notes and vital signs. I did review pertinent previous visits and patient history. After obtaining a thorough history and physical examination the above work up was performed. This is a 75-year-old male who presents the emergency department with altered mental status. The patient only answers yes or no to questions. He does appear to have aspiration pneumonia on his chest x-ray and does have an elevation in his white blood cell count consistent with that. He also has an elevation in his lactate. Broad-spectrum antibiotics were started on this patient including Zosyn Levaquin and daptomycin. I did discuss the case with the hospitalist service who did agree to meet the patient. Patient is in agreement with treatment plan While in the department, I personally reevaluated the patient several times and each time the patient was found to be resting comfortably. The patient was educated upon management, educated upon todays findings/results, educated upon importance of follow up from today's visit, educated upon symptoms in which to return, had questions answered prior to discharge, verbalized understanding, and was discharged home in good condition. An order was placed for continuous cardiac monitoring. The monitor shows a rate of 107 with Normal SInus rhythm. The patient was evaluated during a period of high volume and high acuity while the hospital was at overcapacity during the global COVID-19 pandemic, and that diagnosis was suspected/considered upon their initial presentation. Their evaluation, treatment and testing was consistent with current guidelines for patients who present with complaints or symptoms that may be related to COVID- 19. Impression & Plan Pneumonia, Elevated troponin, Altered mental status, Acidosis, lactic Discharge Plan Visit Data Chief Complaint: Altered Mental Status ED Provider: Joss Villanueva Discharge Problem: Pneumonia, Elevated troponin, Altered mental status, Acidosis, lactic Patient Disposition: Admitted As Inpatient Discharge Instructions Interventions: ED Discharge Assessment Last Done: 10/11/20 15:40 Discharge Problem: Pneumonia Qualifiers: Pneumonia type: due to unspecified organism Laterality: unspecified laterality Lung location: unspecified part of lung Qualified Code(s): J18.9 - Pneumonia, unspecified organism Altered mental status Qualifiers: Altered mental status type: unspecified Qualified Code(s): R41.82 - Altered mental status, unspecified
[2020-10-11] MEDS ORDERED: levoFLOXacin/D5W 750 MG/150 ML BAG IV STA (10:52)
[2020-10-11] MEDS ORDERED: PIPERACILLIN/TAZOBACTAM 4.5 GM/120 ML BAG IV ONE (10:52)
[2020-10-11] MEDS ORDERED: VANCOMYCIN CONSULT ACTIVE PRN ×2 (10:52→16:08)
[2020-10-11] MEDS ORDERED: VANCOMYCIN HCL 1,000 MG/270 ML BAG IV STA (10:52)
[2020-10-11] MEDS ORDERED: PIPERACILL/TAZOBAC CONSULT ACTIVE PRN ×2 (10:52→16:08)
[2020-10-11 10:54] LABS: Basophils # (auto) 0.02 K/uL (0-0.2); Basophils % (auto) 0.2 %; Hematocrit (blood only) 38.3 % (42-52); Hemoglobin 11.6 g/dL (14.0-18.0); Immature Granulocytes # (auto) 0.05 K/uL (0.00-0.02); Immature Granulocytes % (auto) 0.5 %; Lymphocytes % (auto) 12.9 %; Mean Corpuscular Hemoglobin 31.4 pg (25-34); Mean Corpuscular Hgb Conc 30.3 g/dL (32-36); Mean Corpuscular Volume 103.8 fL (80-100); Mean Platelet Volume 10.4 fL (7.4-10.4); Monocytes # (auto) 0.46 K/uL (0.11-0.59); Monocytes % (auto) 4.2 %; Neutrophils # (auto) 8.92 K/uL (1.4-6.5); Neutrophils % (auto) 82.2 %; Nucleated RBC # (auto) 0.06 K/uL (0-0); Nucleated RBC % (auto) 0.5 %; Platelet Count 325 K/uL (130-400); RDW Coefficient of Variation 17.7 % (11.5-14.5); RDW Standard Deviation 67.5 fL (36.4-46.3); Red Blood Count 3.69 M/uL (4.7-6.1); White Blood Count 10.85 K/uL (4.8-10.8)
[2020-10-11 11:05] LABS: INR 1.1 (0.9-1.1); Partial Thromboplastin Ratio 1.1; Partial Thromboplastin Time 30.4 Seconds (21.0-31.0); Prothrombin Time 11.9 Seconds (9.0-12.0)
[2020-10-11 11:16] LABS: Albumin Level 2.6 gm/dl (3.4-5.0); BUN Creatinine Ratio 8.5 (10-20); Calcium 8.3 mg/dl (8.5-10.1); Creatinine Clr Calc Pharmacy 17.7 ml/min; Est GFR (African American) 22.3; Est GFR (Non-African American) 19.3; Magnesium 2.3 mg/dl (1.8-2.4); Potassium 4.6 mmol/L (3.5-5.1)
[2020-10-11 11:24] LABS: Albumin Globulin Ratio 0.6 (0.9-2); Bilirubin,Total 0.7 mg/dl (0.2-1); Creatine Kinase MB 5.7 ng/ml (0.5-3.6); Globulin 4.4 gm/dl (2.5-4.0); Troponin I 0.055 ng/ml (0-0.045)
--- NOTE | 2020-10-11 11:38 | CT Scan Report ---
CT SCAN OF THE BRAIN WITHOUT IV CONTRAST CLINICAL HISTORY: Change in mental status. COMPARISON STUDY: CT of the brain dated 09/30/2020. MRI of the brain dated 10/02/2020. TECHNIQUE: Unenhanced axial CT scan of the brain is performed from the vertex to the skull base. A do se lowering technique was utilized adhering to the principles of ALARA. CT DOSE: 614.27 mGy.cm FINDINGS: Brain parenchyma: Foci of left frontal COMBO left parietal, and right parieto-occipital encephalomala cheng are unchanged and consistent with remote infarcts. There are age-related involutional changes not ing moderate to advanced subcortical and periventricular microangiopathic change. There is no hemorr misha, mass effect, or evidence of acute territorial ischemia by CT criteria. Chronic lacunar infarcts are noted in the right thalamus and the right cerebellar hemisphere. Shin-white matter differentiati on is preserved. No extra-axial fluid collection is seen. Ventricles, sulci, cisterns: Prominent secondary to involutional change. Intracranial vasculature: There is atherosclerotic calcification of the cavernous carotid and vertebr al arteries. Calvarium: Unremarkable. Sinuses and mastoids: The visualized paranasal sinuses are clear. The mastoid air cells are well pneu matized. Orbits: The bony orbits are grossly intact. There are bilateral ocular lens implants. IMPRESSION: 1. There is no hemorrhage, mass effect, or evidence of acute territorial ischemia by CT criteria. 2. Senescent change and chronic infarcts as above. ACT 112: Negative or not required by law. Electronically signed by: Servando Mtz M.D. 10/11/2020 11:37 AM
[2020-10-11 13:51] LABS: Base Excess ABG 2.9 mEq/L (-9-1.8); HCO3 ABG 26 mmol/L (19-24); Oxygen Saturation ABG 94.2 % (90-95); PCO2 ABG 36 mmHg (35-46); PO2 ABG 68 mmHg (80-95); pH ABG 7.48 (7.35-7.45)
[2020-10-11 13:52] LABS: Allen Test Pos (Pos)
--- NOTE | 2020-10-11 14:08 | History & Physical Report ---
Date of Service October 11, 2020 Assessment & Plan (1) Altered mental state: Patient with longstanding cerebrovascular disease as well as epileptic siezure disorder. Patient is more lethargic than baseline. - ABG for hypoxia - Blood glucose q6 hours - Abx for pneumonia, blood and urine cultures pending - Patient on no narcotics, withdrawl or toxicologic cause very unlikely. Keppra level has been stable and level has been within therapuetic range - Vascular dementia or worsening CVA- Continue Plavix add ASA continue CVD medications - No recent trauma - Add on Thiamine as nutritional intake appears to be lacking in labs as well as exam. - EEG on last hospitalization with no seizure activity but slowing consistent with dementia. (2) Pneumonia: Patient recently hospitalized and at custodial care facility. - New infiltrate on left lung - WBC at 10 with NLR 4.5:1 - Cough periodically unable to assess sputum - scattered crackles on exam - small pleural effusion- follow. - Lactate improved - Supportive care (3) Dementia: Patient with multiple CVAs - continue supportive medications as below in CVA. - Re-orient patient - sleep hygiene at night (4) Stroke: Chornic multiple CVA - Plavix 75 mg will add asprin on to EMD and daily - Patient is on optimum therapy for his disease process and lipids look well (5) Aphasia: Expressive, no change (6) ESRD on dialysis: Nephrology consulted for inpatient dialysis as needed. - ABX renal dosed, pharmacy consulted as well for assistance - avoid further nephrotoxic medications - Continue calcitriol and nephrocaps - renal diet (7) CAD (coronary artery disease): Cont statin Cont plavix Add asa in light of chronic stroke ECG daily trend troponin with slight elevation and non-specific st changes support hemodynamics and oxygen delivery (8) Hypertension: Support hemodynamics- Map >65 <110 - do not feel this is acute CVA (9) Chronic systolic CHF (congestive heart failure): No acute needs, chronic heart failure likely ischemic in nature - Continue optimization of medications as for CVA. - no additional needs. (10) Hypercholesteremia: At goal per last admission continue statin (11) Macrocytic anemia: Add on b12 and folate for labs. 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 Treat if >200 - Concern for hypoglycemia on last weeks admission as well. (13) VTE (venous thromboembolism): Admission and Anticipated Discharge Date Admission Date: 5000 units heparin bid History of Present Illness Primary Care Provider: Mobeetieanthony Nath 75 YOM with significant past history for ESRD on dialysis (right tunneled perm cath) and left arm AVF, Multiple CVA (most recent 30Sep2020) HfRef (40-45%), fall resulting in right hip intratrochanteric nail last month, Severe expressive aphasia and altered mental status, residual right sided weakness, and epileptic seizures on Keppra therapy, HTN, ASCVD, CABG and HLD. Patient brought to the emergency room today from [facility] for reported alteration in mental status. Upon evaluation in the emergency room, the patient does appear to be more lethargic than my last encounter with him last week, but baseline movement, deficits, and neurological exam remain the same. In the emergency room the patient had a CT scan done of his head, Vancomycin, Levaquin, and Pip/Tazo adminitstered, blood and urine cultures are pending chest X-ray and ECG and consistent with infection/pna. Patient will be admitted to monitor/treat for left lower lobe pneumonia and alteration in mental status along with continued functional decline. Allergies Allergy/AdvReac Type Severity Reaction Status Date / Time adhesive Allergy Unknown BLISTERING Verified 10/11/20 09:49 OF SKIN latex Allergy Unknown Rash Verified 10/11/20 09:49 Home Medications Medication Instructions Recorded Confirmed Type Renal Caps 1 cap PO QAM #30 cap 11/20/19 10/11/20 Rx polyethylene glycol 3350 [Miralax] 17 gm PO DAILY #0 ea 12/04/19 10/11/20 Rx atorvastatin [Lipitor] 80 mg PO HS 02/18/20 10/11/20 History clopidogrel [Plavix] 75 mg PO DAILY 02/18/20 10/11/20 History levetiracetam [Keppra] 500 mg PO 4XWK 02/18/20 10/11/20 History famotidine 40 mg tablet 40 mg PO BID #180 tab 03/01/20 10/11/20 Rx docusate sodium [Stool Softener] 100 mg PO DAILY 04/13/20 10/11/20 History calcitriol 0.25 mcg capsule 0.25 mcg PO 3XWK #15 cap 08/09/20 10/11/20 Rx citalopram 10 mg tablet 10 mg PO HS #30 tab 09/05/20 10/11/20 Rx acetaminophen 650 mg PO Q6H PRN MDD 3000 MG 09/30/20 10/11/20 History APAP/24 HOURS amlodipine [Norvasc] 2.5 mg PO HS 09/30/20 10/11/20 History hydrocortisone [Proctosol HC] 1 appln AK Q24H PRN 09/30/20 10/11/20 History sennosides [Senokot] 8.6 mg PO Q48H PRN 09/30/20 10/11/20 History isosorbide mononitrate 30 mg PO DAILY #30 tab 10/04/20 10/11/20 Rx Past Med/Surg History Medical History Benign prostatic hyperplasia CAD (coronary artery disease) s/p CABG 2007 Carotid artery stenosis s/p remote R & L endarterectomies with L re-occlusion sometime before 2010. Being monitored by [facility] neuro, on Plavix. Chronic kidney disease Congestive heart failure (CHF) Dementia Depression Diabetes mellitus, type 2 A1C 5.4% 11/2019. Not on any medication. Diabetic peripheral neuropathy Esophageal reflux Flash pulmonary edema 11/2019 Hemodialysis patient MON/SAT/SATURDAY [facility] 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 (1 YEAR AFTER RI) ? Hyperlipidemia Hypertension Memory problem PT REPORTS "DEMENTIA" "COMES AND GOES" Myocardial Infarction 1989? Renal artery stenosis s/p left renal artery stenting; moderate right renal artery stenosis but no significant left renal artery stenosis on 11/2019 duplex Seizure disorder Stable on Keppra, no seizure for "a long time." Follows with [facility] neurology. SNHL (sensorineural hearing loss) Surgical History History of aorto-femoral bypass History of bypass graft (non vein) Aortic-femoral or bifemoral History of carotid endarterectomy L 1998, R 2009 History of cataract surgery RT/LEFT History of colonoscopy History of esophagogastroduodenoscopy (EGD) History of tooth extraction History of vascular access device IJ FOR DIAYLSIS S/P CABG (coronary artery bypass graft) (2007) [facility] Family History Brother Hypertension Hypercholesteremia Sister Diabetes Unknown Hypertension Cardiac disorder Social History Smoking Status: Unknown if ever smoked Tobacco Type: Cigarettes Cigarettes Per Day: 30; Second Hand Exposure: No; Hx Alcohol Use: No (unable to assess) Hx Substance Use: No (unable to assess) Preferred Language: Norwegian Communication Ability: Unable Communication Ability Comment: aphasic Visual Impairment: No Limitations Washing Tub Operator Required: No Beliefs That Will Affect Care: None marital status: Current Living Situation: Spouse Current Living Situation Comment: at [facility] current occupational status: 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 majority of information gathered from chart review patient is appropriately answering yes and no questions. Physical Exam Physical Exam: General: awake, alert, no apparent distress Head: Normocephalic, atraumatic ENT: PERRL, EOMI, no pharyngeal exudate, mucous membranes moist Neuro: AOx1 to person, lethargic but able to hold attention, PEERLA brisk 3/2, EOM intact without nystagmus, expressive aphasia but appropriate, neck full ROM, strength and sensation intact on the left, right is flexed with sensation intact and 4/5 strength, lower extremity 0/5. Chest: equal rise and fall of the chest, no accessory muscle use, no heaves or thrills, decreased in bases auscultation, on room air, no cough Cardiac: Regular rate and rhythm, telemetry reviewed, skin warm dry, cap refill <3 seconds, peripheral pusles +2 no JVD, no murmur. GI: NABS x 4 quadrants, soft, nontender to palpation, no rebound, guarding or tenderness : Spontaneously voiding, no pain, no CVA tenderness, Extremities: Normal inspection, no peripheral edema or erythema, calfs nontender to palpation Psych: Normal mood and affect Skin: no rash or erythema Constitutional: WD/WN, vitals as above Eyes: normal visual prieto by confrontation and + anicteric sclerae Neck: normal visual inspection and trachea midline Respiratory: normal respiratory effort, lungs clear to auscultation Cardiovascular: Rate/Rhythm: regular rate and regular rhythm Gastrointestinal (Abdomen): Inspection/Auscultation: abdomen not distended Percussion/Palpation: abdomen soft; abdomen nontender Musculoskeletal: Head/Neck/Chest: normocephalic and head atraumatic Neg for peripheral LE edema, + pedal pulses Skin: no rashes, warm and dry Neurologic: awake; not confused Speech / Cognition: normal speech Psychiatric: Orientation: alert Lymphatic: Exam as done by Precious Gallo, Results & Data Results & Data ([facility]) Vital Signs (Past 12 Hours) Vital Signs Temp Pulse Resp BP Pulse Ox 10/11/20 11:33 78 16 152/100 H 10/11/20 11:00 90 20 10/11/20 10:30 94 H 19 10/11/20 10:00 99 H 19 118/77 10/11/20 09:30 105 H 21 134/85 92 10/11/20 09:19 37 C 107 H 18 147/105 H 94 10/11/20 09:18 108 H 23 93 10/11/20 09:14 107 H 20 147/105 H 93 Laboratory Results Abnormal lab results 10/11/20 10/11/20 10/11/20 Range/Units 10:39 10:39 10:39 WBC 10.85 H (4.8-10.8) K/uL RBC 3.69 L (4.7-6.1) M/uL Hgb 11.6 L (14.0-18.0) g/dL Hct 38.3 L (42-52) % MCV 103.8 H (80-100) fL MCHC 30.3 L (32-36) g/dL RDW Std Deviation 67.5 H (36.4-46.3) fL RDW Coeff of Shayy 17.7 H (11.5-14.5) % Neut # (Auto) 8.92 H (1.4-6.5) K/uL Immature Gran # (Auto) 0.05 H (0.00-0.02) K/uL Absolute Nucleated RBC 0.06 H (0-0) K/uL ABG pH (7.35-7.45) ABG pO2 (80-95) mmHg ABG HCO3 (19-24) mmol/L ABG Base Excess (-9-1.8) mEq/L Carbon Dioxide 33 H (21-32) mmol/L BUN 26 H (7-18) mg/dl Creatinine 3.02 H (0.6-1.4) mg/dl BUN/Creatinine Ratio 8.5 L (10-20) Glucose 153 H (70-99) mg/dl Lactate (0.4-2.0) mmol/L Calcium 8.3 L (8.5-10.1) mg/dl Alkaline Phosphatase 122 H (45-117) U/L Lactate Dehydrogenase 253 H (87-241) U/L CK-MB (CK-2) 5.7 H (0.5-3.6) ng/ml CK/CKMB % Calc 7.9 H (0-3.0) Troponin I 0.055 H* (0-0.045) ng/ml Albumin 2.6 L (3.4-5.0) gm/dl Globulin 4.4 H (2.5-4.0) gm/dl Albumin/Globulin Ratio 0.6 L (0.9-2) 10/11/20 10/11/20 10/11/20 Range/Units 10:41 13:36 13:37 WBC (4.8-10.8) K/uL RBC (4.7-6.1) M/uL Hgb (14.0-18.0) g/dL Hct (42-52) % MCV (80-100) fL MCHC (32-36) g/dL RDW Std Deviation (36.4-46.3) fL RDW Coeff of Shayy (11.5-14.5) % Neut # (Auto) (1.4-6.5) K/uL Immature Gran # (Auto) (0.00-0.02) K/uL Absolute Nucleated RBC (0-0) K/uL ABG pH 7.48 H (7.35-7.45) ABG pO2 68 L (80-95) mmHg ABG HCO3 26 H (19-24) mmol/L ABG Base Excess 2.9 H (-9-1.8) mEq/L Carbon Dioxide (21-32) mmol/L BUN (7-18) mg/dl Creatinine (0.6-1.4) mg/dl BUN/Creatinine Ratio (10-20) Glucose (70-99) mg/dl Lactate 3.1 H* 2.1 H* (0.4-2.0) mmol/L Calcium (8.5-10.1) mg/dl Alkaline Phosphatase (45-117) U/L Lactate Dehydrogenase (87-241) U/L CK-MB (CK-2) (0.5-3.6) ng/ml CK/CKMB % Calc (0-3.0) Troponin I (0-0.045) ng/ml Albumin (3.4-5.0) gm/dl Globulin (2.5-4.0) gm/dl Albumin/Globulin Ratio (0.9-2) Diagnostic Findings CT SCAN OF THE BRAIN WITHOUT IV CONTRAST CLINICAL HISTORY: Change in mental status. COMPARISON STUDY: CT of the brain dated 09/30/2020. MRI of the brain dated 10/02/2020. TECHNIQUE: Unenhanced axial CT scan of the brain is performed from the vertex to the skull base. A dose lowering technique was utilized adhering to the principles of ALARA. CT DOSE: 614.27 mGy.cm FINDINGS: Brain parenchyma: Foci of left frontal COMBO left parietal, and right parieto- occipital encephalomalacia are unchanged and consistent with remote infarcts. There are age-related involutional changes noting moderate to advanced subcortical and periventricular microangiopathic change. There is no hemorrhage, mass effect, or evidence of acute territorial ischemia by CT criteria. Chronic lacunar infarcts are noted in the right thalamus and the right cerebellar hemisphere. Shin-white matter differentiation is preserved. No extra-axial fluid collection is seen. Ventricles, sulci, cisterns: Prominent secondary to involutional change. Intracranial vasculature: There is atherosclerotic calcification of the cavernous carotid and vertebral arteries. Calvarium: Unremarkable. Sinuses and mastoids: The visualized paranasal sinuses are clear. The mastoid air cells are well pneumatized. Orbits: The bony orbits are grossly intact. There are bilateral ocular lens implants. SINGLE VIEW CHEST CLINICAL HISTORY: Sepsis. FINDINGS: An AP, portable, upright chest radiograph is compared to study dated 10/01/2020 and correlated with chest CT dated 02/04/2020. The examination is degraded by portable technique and patient rotation. A right sided central venous catheter is unchanged in position. The patient is status post midline sternotomy. The heart is enlarged. There is mild pulmonary vascular congestion. Emphysema and chronic interstitial thickening are similar to previous. There is left basilar consolidation with a small left pleural effusion. No pneumothorax is seen. The skeletal structures are osteopenic. The bony thorax is grossly intact. IMPRESSION: 1. There is left basilar consolidation with a small left pleural effusion. The appearance is typical for pneumonia/aspiration pneumonitis. Clinical correlation will be required and radiographic follow-up to resolution is recommended. 2. Cardiomegaly and emphysema with mild pulmonary vascular congestion. Medications Administered Miscellaneous Information (Piperacill/Tazobac Consult Active) 1 ea N/A UD PRN PRN Reason: Consult Stop: 11/10/20 10:51 Last Admin: 10/11/20 12:32 Dose: 1 ea Documented by: [id number] Miscellaneous Information (Vancomycin Consult Active) 1 ea N/A UD PRN PRN Reason: Consult Stop: 11/10/20 10:51 Last Admin: 10/11/20 12:32 Dose: 1 ea Documented by: [id number] Discontinued Medications Piperacillin Sod/Tazobactam Sod (Zosyn) 4.5 gm in 120 mls @ 240 mls/hr IV NOW ONE Stop: 10/11/20 11:21 Last Infusion: 10/11/20 12:26 Dose: 0 mls/hr Documented by: [id number] Admin: 10/11/20 11:50 Dose: 240 mls/hr Documented by: [id number] Levofloxacin/Dextrose (Levaquin/D5w) 750 mg in 150 mls @ 100 mls/hr IV NOW STA Stop: 10/11/20 12:21 Last Infusion: 10/11/20 13:58 Dose: 100 mls/hr Documented by: [id number] Infusion: 10/11/20 12:40 Dose: 0 mls/hr Documented by: [id number] Admin: 10/11/20 11:50 Dose: 100 mls/hr Documented by: [id number] Vancomycin HCl (Vancomycin Hcl) 1,000 mg in 270 mls @ 200 mls/hr IV NOW STA; Protocol Stop: 10/11/20 12:12 Last Infusion: 10/11/20 13:59 Dose: 200 mls/hr Documented by: [id number] Infusion: 10/11/20 12:40 Dose: 0 mls/hr Documented by: [id number] Admin: 10/11/20 12:32 Dose: 200 mls/hr Documented by: [id number] ECG Additional Comments: 107 BPM, first degree av block sinus rythm. Non-specific ST changes lateral. Code Status & VTE Plan Code Status Full VTE SCDs Supervising Physician Co-Signing Physician Notes Pt seen and examined by me. Denies chest pain or SOB. Was noted in PT to have AMS and sent to the ED for eval. Agree with HPI/ROS as noted by LAMINATION INSPECTOR See above for my exam in PE section Answering yes/no questions, which appears to be baseline Agree with plan as outlined above Aspiration PNA levaquin, zosyn, vanco in the ED, continue abx Lactic acid at 3.1, monitor Trop 0.055, hx of chronically elevated trop DM meds were held on last d/c due to concerns for risk of hypoglycemia causing some of pt's neuro status issues Recent CVA PG Care Time/CCT Total # of Minutes Spent Total Time Spent with Patient: Total time spent is greater than 50% in coordination of care (as documented) at patient's floor/unit and/or counseling patient: Coding Level of Care Code 45285 Initial Inpt Care Lvl 3 Diagnoses Altered mental state R41.0 Altered mental status type: delirium Pneumonia J18.9 Aspiration pneumonia type: unspecified Laterality: left Lung location: lower lobe of lung Dementia F03.90 Dementia type: vascular dementia Stroke I63.9 Laterality of affected vessel: unspecified Aphasia R47.01 ESRD on dialysis N18.6; Z99.2 CAD (coronary artery disease) I25.10 Associated angina: without angina Coronary Disease-Associated Artery/Lesion type: [place] artery [place] vs. 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
[2020-10-11 14:20] LABS: Appearance Urine Clear (Clear); Bacteria Urine Automated Negative (Negative); Bilirubin Urine Negative (Negative); Blood Urine Negative (Negative); Color Urine Yellow; Epithelial Cell Urine Auto 20-30 /lpf (0-5); Glucose Urine UA Trace (Negative); Ketones Urine Negative (Negative); Leukocyte Esterase Urine Negative (Negative); Nitrite Urine Negative (Negative); Specific Gravity Urine 1.008 (1.000-1.030); Urobilinogen Urine Negative (Negative); pH Urine >= 9.0 (4.5-7.5)
[2020-10-11 14:22] LABS: Protein Urine 2+ (Negative)
[2020-10-11 14:37] LABS: Folate (Folic Acid) > 20.00 ng/ml (>5.38); Vitamin B12 755 pg/ml (193-986)
[2020-10-11] MEDS ORDERED: HYDROCORTISONE HC 2.5% CRM 30GM TUBE EXT PRN (16:08)
[2020-10-11] MEDS ORDERED: SENNA 8.6 MG TAB PO PRN (16:08)
[2020-10-11] MEDS ORDERED: ACETAMINOPHEN 325 MG TAB PO PRN ×2 (16:08)
[2020-10-11] MEDS ORDERED: CONSULT PHARMACY STA (16:08)
--- NOTE | 2020-10-11 16:31 | Electrocardiogram Report ---
Test Reason : Blood Pressure : / mmHG Vent. Rate : 107 BPM Atrial Rate : 107 BPM P-R Int : 326 ms QRS Dur : 096 ms QT Int : 206 ms P-R-T Axes : 000 063 253 degrees QTc Int : 275 ms Poor data quality, interpretation may be adversely affected Supraventricular tachycardia , likely atrial flutter although sinus rhythm with a long 1st degree AV block cannot be excluded Inferior infarct , age undetermined Abnormal ECG Confirmed by Geo Acosta ([id number]) on 10/11/2020 4:31:22 PM Referred By: Confirmed By:Chon Acosta
[2020-10-11] MEDS: THIAMINE HCL 100 MG TAB PO SCH (16:40)
[2020-10-11] MEDS ORDERED: ASPIRIN 300 MG SUPP PR ONE (16:45)
--- NOTE | 2020-10-11 18:17 | Nephrology Consultation ---
Date of Consultation October 11, 2020 Assessment & Plan (1) ESRD on dialysis: HD MWF. Orders to coordinate HD tomorrow have been entered into the EMR. BP and volume status are currently acceptable. Electrolytes controlled. (2) Macrocytic anemia: Chronic, stable. Maintained on Venofer 100 mg QHD and Micera as outpatient. (3) Altered mental state: Noted progressive decline with noted vascular dementia. Overall goals of care continue to be addressed. Baseline mental and functional status appears to be declining rapidly complicated by expressive aphasia and multiple medical comorbidities. Prognosis is guarded. (4) Pneumonia: Antibiotic therapy dosed for kidney function. (5) Dementia: As above. Will follow up with Miguel's and son tomorrow. (6) Stroke: (7) Aphasia: (8) CAD (coronary artery disease): (9) Hypertension: BP controlled. (10) Chronic systolic CHF (congestive heart failure): Volume status acceptable. History of Present Illness Reason for Consultation: ESRD Requesting Physician: Precious Gallo DO Attending Physician: Precious Gallo DO History of Present Illness Mr. Miguel Mata is a 75-year-old male with significant atherosclerotic vascular disease, dementia, history of CVA with expressive aphasia, encephalomalacia, QTc >500, and ESRD. He is maintained on IHD at [facility] under my care. Miguel dialyzes on a MWF schedule. Typical Rx is 3 hours on a 180 optiflux 2K with Qb 350 and Qd 800. EDW 56 kg. A TDC has been used for treatment. AVF mature and had been functioning well but Miguel did not tolerate use of the AVF and on several occasions needles were dislodged or removed. Unfortunately, Miguel has demonstrated progressive decline with intermittent confusion and noted mental status changes over the past several months. He was admitted to [facility] in August and earlier this month. Evaluation noted acute right occipital CVA and noted chronic changes including chronic occlusion of the L ICA. Prior evaluations notable for seizure activity for which he has been maintained on Keppra. Miguel completed dialysis yesterday without complications. He was referred to the emergency department at [facility] from [facility] today with mental status changes. On evaluation today, CXR demonstrated a basal consolidation. Antibiotic therapy with vancomycin, Levaquin and Zosyn was started. Miguel was seen and evaluated sitting in his bed this evening. He did recognize me and was oriented to person and place. He answered questions consistent with most of my typical conversations with him but did complain of having a headache for several days. Miguel also expressed that he did not know why he was at the hospital. Medical records including records from multiple recent prior admissions were reviewed today. [facility] from [facility] also reviewed. Allergies Allergy/AdvReac Type Severity Reaction Status Date / Time adhesive Allergy Unknown BLISTERING Verified 10/11/20 09:49 OF SKIN latex Allergy Unknown Rash Verified 10/11/20 09:49 Home Medications Medication Instructions Recorded Confirmed Type Renal Caps 1 cap PO QAM #30 cap 11/20/19 10/11/20 Rx polyethylene glycol 3350 [Miralax] 17 gm PO DAILY #0 ea 12/04/19 10/11/20 Rx atorvastatin [Lipitor] 80 mg PO HS 02/18/20 10/11/20 History clopidogrel [Plavix] 75 mg PO DAILY 02/18/20 10/11/20 History levetiracetam [Keppra] 500 mg PO 4XWK 02/18/20 10/11/20 History famotidine 40 mg tablet 40 mg PO BID #180 tab 03/01/20 10/11/20 Rx docusate sodium [Stool Softener] 100 mg PO DAILY 04/13/20 10/11/20 History calcitriol 0.25 mcg capsule 0.25 mcg PO 3XWK #15 cap 08/09/20 10/11/20 Rx citalopram 10 mg tablet 10 mg PO HS #30 tab 09/05/20 10/11/20 Rx acetaminophen 650 mg PO Q6H PRN MDD 3000 MG 09/30/20 10/11/20 History APAP/24 HOURS amlodipine [Norvasc] 2.5 mg PO HS 09/30/20 10/11/20 History hydrocortisone [Proctosol HC] 1 appln NV Q24H PRN 09/30/20 10/11/20 History sennosides [Senokot] 8.6 mg PO Q48H PRN 09/30/20 10/11/20 History isosorbide mononitrate 30 mg PO DAILY #30 tab 10/04/20 10/11/20 Rx Patient History Medical History Benign prostatic hyperplasia CAD (coronary artery disease) s/p CABG 2007 Carotid artery stenosis s/p remote R & L endarterectomies with L re-occlusion sometime before 2010. Being monitored by [facility] [place], on Plavix. Chronic kidney disease Congestive heart failure (CHF) Dementia Depression Diabetes mellitus, type 2 A1C 5.4% 11/2019. Not on any medication. Diabetic peripheral neuropathy Esophageal reflux Flash pulmonary edema 11/2019 Hemodialysis patient SAT/SAT/SATURDAY [facility] 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 (1 YEAR AFTER ME) ? Hyperlipidemia Hypertension Memory problem PT REPORTS "DEMENTIA" "COMES AND GOES" Myocardial Infarction 1989? Renal artery stenosis s/p left renal artery stenting; moderate right renal artery stenosis but no significant left renal artery stenosis on 11/2019 duplex Seizure disorder Stable on Keppra, no seizure for "a long time." Follows [place] [facility]. SNHL (sensorineural hearing loss) Surgical History History of aorto-femoral bypass History of bypass graft (non vein) Aortic-femoral or bifemoral History of carotid endarterectomy L 1998, R 2009 History of cataract surgery RT/LEFT History of colonoscopy History of esophagogastroduodenoscopy (EGD) History of tooth extraction History of vascular access device IJ FOR DIAYLSIS S/P CABG (coronary artery bypass graft) (2007) [facility] Family History Brother Hypertension Hypercholesteremia Sister Diabetes Unknown Hypertension Cardiac disorder Social History Smoking Status: Unknown if ever smoked Tobacco Type: Cigarettes Cigarettes Per Day: 30; Second Hand Exposure: No; Hx Alcohol Use: No (unable to assess) Hx Substance Use: No (unable to assess) Preferred Language: Kosovan Communication Ability: Unable Communication Ability Comment: aphasic Visual Impairment: No Limitations Hatchery Man Required: No Beliefs That Will Affect Care: None marital status: Current Living Situation: Spouse Current Living Situation Comment: at [facility] current occupational status: 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 Miguel reported a headache ("all over"). Started a few days ago. He states that he feels, "lousy." He is not more specific. More than once, he asked me "why am I here?". Physical Exam Constitutional: well developed, + thin and + frail appearing; no acute distress Eyes: + anicteric sclerae and PERRL ENMT: Mouth: no oral mucosal abnormality and oral mucous membranes not dry Neck: normal visual inspection and trachea midline RIJ TDC Respiratory: normal respiratory effort Auscultation: lungs clear to auscultation bilaterally Cardiovascular: Rate/Rhythm: regular rate Heart Sounds: normal S1 and normal S2 Extremities: + AV fistula; no edema Gastrointestinal (Abdomen): Percussion/Palpation: abdomen soft; abdomen nontender Musculoskeletal: Extremities: no cyanosis and no clubbing Skin: normal turgor; no lesions Neurologic: Motor/Sensory: no tremor and no asterixis Psychiatric: Orientation: alert and cooperative Results & Data ([facility]) Vital Signs (Past 12 Hours) Vital Signs Temp Pulse Pulse Resp BP BP Pulse Ox 10/11/20 16:13 37.0 C 101 H 18 158/106 H 92 10/11/20 16:00 98 H 10/11/20 15:30 98 H 21 140/94 95 10/11/20 14:09 99 H 20 142/88 H 98 10/11/20 13:00 78 21 143/95 H 91 10/11/20 12:30 78 13 138/92 91 10/11/20 12:00 82 24 126/71 90 10/11/20 11:33 78 16 152/100 H 10/11/20 11:00 90 20 10/11/20 10:30 94 H 19 10/11/20 10:00 99 H 19 118/77 10/11/20 09:30 105 H 21 134/85 92 10/11/20 09:19 37 C 107 H 18 147/105 H 94 10/11/20 09:18 108 H 23 93 10/11/20 09:14 107 H 20 147/105 H 93 Laboratory Results Laboratory Results - last 24 hr 10/11/20 10/11/20 10/11/20 09:50 09:50 10:39 WBC 10.85 H RBC 3.69 L Hgb 11.6 L Hct 38.3 L MCV 103.8 H MCH 31.4 MCHC 30.3 L RDW Std Deviation 67.5 H RDW Coeff of Shayy 17.7 H Plt Count 325 MPV 10.4 Immature Gran % (Auto) 0.5 Neut % (Auto) 82.2 Lymph % (Auto) 12.9 Miner % (Auto) 4.2 Eos % (Auto) 0.0 Baso % (Auto) 0.2 Neut # (Auto) 8.92 H Lymph # (Auto) 1.40 Miner # (Auto) 0.46 Eos # (Auto) 0.00 Baso # (Auto) 0.02 Immature Gran # (Auto) 0.05 H Absolute Nucleated RBC 0.06 H Nucleated RBC % (auto) 0.5 PT INR APTT PTT Ratio ABG pH ABG pCO2 ABG pO2 ABG HCO3 ABG O2 Saturation ABG Base Excess Sonny Test VBG pH VBG pCO2 VBG pO2 VBG HCO3 VBG O2 Saturation VBG Base Excess Barometric Pressure Oxygen Given Sodium Potassium Chloride Carbon Dioxide Anion Gap BUN Creatinine Est Cr Clr Drug Dosing Est GFR ( Amer) Est GFR (Non-Af Amer) BUN/Creatinine Ratio Glucose POC Glucose Lactate Calcium Magnesium Total Bilirubin AST ALT Alkaline Phosphatase Ammonia Lactate Dehydrogenase Total Creatine Kinase CK-MB (CK-2) CK/CKMB % Calc Troponin I Total Protein Albumin Globulin Albumin/Globulin Ratio Vitamin B1 Vitamin B12 Folate TSH Urine Color Urine Appearance Urine pH Ur Specific [place] Urine Protein Urine Glucose (UA) Urine Ketones Urine Blood Urine Nitrite Urine Bilirubin Urine Urobilinogen Ur Leukocyte Esterase Urine WBC (Auto) Urine RBC (Auto) U Hyaline Cast (Auto) U Epithel Cells (Auto) Urine Bacteria (Auto) Nasal Screen MRSA (PCR) COVID-19 Eval Order Covid19 [facility]Now [facility] SARS-CoV-2, RNA, NAAT NEGATIVE 10/11/20 10/11/20 10/11/20 10:39 10:39 10:39 WBC RBC Hgb Hct MCV MCH MCHC RDW Std Deviation RDW Coeff of Shayy Plt Count MPV Immature Gran % (Auto) Neut % (Auto) Lymph % (Auto) Miner % (Auto) Eos % (Auto) Baso % (Auto) Neut # (Auto) Lymph # (Auto) Miner # (Auto) Eos # (Auto) Baso # (Auto) Immature Gran # (Auto) Absolute Nucleated RBC Nucleated RBC % (auto) PT 11.9 INR 1.1 APTT 30.4 PTT Ratio 1.1 ABG pH ABG pCO2 ABG pO2 ABG HCO3 ABG O2 Saturation ABG Base Excess Sonny Test VBG pH VBG pCO2 VBG pO2 VBG HCO3 VBG O2 Saturation VBG Base Excess Barometric Pressure Oxygen Given Sodium 137 Potassium 4.6 Chloride 99 Carbon Dioxide 33 H Anion Gap 5.0 BUN 26 H Creatinine 3.02 H Est Cr Clr Drug Dosing 17.7 Est GFR ( Amer) 22.3 Est GFR (Non-Af Amer) 19.3 BUN/Creatinine Ratio 8.5 L Glucose 153 H POC Glucose Lactate Calcium 8.3 L Magnesium 2.3 Total Bilirubin 0.7 AST 18 ALT 22 Alkaline Phosphatase 122 H Ammonia 14.0 Lactate Dehydrogenase Total Creatine Kinase 72 CK-MB (CK-2) 5.7 H CK/CKMB % Calc 7.9 H Troponin I 0.055 H* Total Protein 7.0 Albumin 2.6 L Globulin 4.4 H Albumin/Globulin Ratio 0.6 L Vitamin B1 Vitamin B12 Folate TSH Urine Color Urine Appearance Urine pH Ur Specific [place] Urine Protein Urine Glucose (UA) Urine Ketones Urine Blood Urine Nitrite Urine Bilirubin Urine Urobilinogen Ur Leukocyte Esterase Urine WBC (Auto) Urine RBC (Auto) U Hyaline Cast (Auto) U Epithel Cells (Auto) Urine Bacteria (Auto) Nasal Screen MRSA (PCR) COVID-19 Eval Order SARS-CoV-2, RNA, NAAT 10/11/20 10/11/20 10/11/20 10:39 10:39 10:41 WBC RBC Hgb Hct MCV MCH MCHC RDW Std Deviation RDW Coeff of Shayy Plt Count MPV Immature Gran % (Auto) Neut % (Auto) Lymph % (Auto) Miner % (Auto) Eos % (Auto) Baso % (Auto) Neut # (Auto) Lymph # (Auto) Miner # (Auto) Eos # (Auto) Baso # (Auto) Immature Gran # (Auto) Absolute Nucleated RBC Nucleated RBC % (auto) PT INR APTT PTT Ratio ABG pH ABG pCO2 ABG pO2 ABG HCO3 ABG O2 Saturation ABG Base Excess Sonny Test VBG pH VBG pCO2 VBG pO2 VBG HCO3 VBG O2 Saturation VBG Base Excess Barometric Pressure Oxygen Given Sodium Potassium Chloride Carbon Dioxide Anion Gap BUN Creatinine Est Cr Clr Drug Dosing Est GFR ( Amer) Est GFR (Non-Af Amer) BUN/Creatinine Ratio Glucose POC Glucose Lactate 3.1 H* Calcium Magnesium Total Bilirubin AST ALT Alkaline Phosphatase Ammonia Lactate Dehydrogenase 253 H Total Creatine Kinase CK-MB (CK-2) CK/CKMB % Calc Troponin I Total Protein Albumin Globulin Albumin/Globulin Ratio Vitamin B1 Vitamin B12 Folate TSH 3.470 Urine Color Urine Appearance Urine pH Ur Specific [place] Urine Protein Urine Glucose (UA) Urine Ketones Urine Blood Urine Nitrite Urine Bilirubin Urine Urobilinogen Ur Leukocyte Esterase Urine WBC (Auto) Urine RBC (Auto) U Hyaline Cast (Auto) U Epithel Cells (Auto) Urine Bacteria (Auto) Nasal Screen MRSA (PCR) COVID-19 Eval Order SARS-CoV-2, RNA, NAAT 10/11/20 10/11/20 10/11/20 13:03 13:03 13:11 WBC RBC Hgb Hct MCV MCH MCHC RDW Std Deviation RDW Coeff of Shayy Plt Count MPV Immature Gran % (Auto) Neut % (Auto) Lymph % (Auto) Miner % (Auto) Eos % (Auto) Baso % (Auto) Neut # (Auto) Lymph # (Auto) Miner # (Auto) Eos # (Auto) Baso # (Auto) Immature Gran # (Auto) Absolute Nucleated RBC Nucleated RBC % (auto) PT INR APTT PTT Ratio ABG pH ABG pCO2 ABG pO2 ABG HCO3 ABG O2 Saturation ABG Base Excess Sonny Test VBG pH Cancelled VBG pCO2 Cancelled VBG pO2 Cancelled VBG HCO3 Cancelled VBG O2 Saturation Cancelled VBG Base Excess Cancelled Barometric Pressure Cancelled Oxygen Given Sodium Potassium Chloride Carbon Dioxide Anion Gap BUN Creatinine Est Cr Clr Drug Dosing Est GFR ( Amer) Est GFR (Non-Af Amer) BUN/Creatinine Ratio Glucose POC Glucose Lactate Calcium Magnesium Total Bilirubin AST ALT Alkaline Phosphatase Ammonia Lactate Dehydrogenase Total Creatine Kinase CK-MB (CK-2) CK/CKMB % Calc Troponin I Total Protein Albumin Globulin Albumin/Globulin Ratio Vitamin B1 Pending Vitamin B12 755 Folate > 20.00 TSH Urine Color Urine Appearance Urine pH Ur Specific [place] Urine Protein Urine Glucose (UA) Urine Ketones Urine Blood Urine Nitrite Urine Bilirubin Urine Urobilinogen Ur Leukocyte Esterase Urine WBC (Auto) Urine RBC (Auto) U Hyaline Cast (Auto) U Epithel Cells (Auto) Urine Bacteria (Auto) Nasal Screen MRSA (PCR) COVID-19 Eval Order SARS-CoV-2, RNA, NAAT 10/11/20 10/11/20 10/11/20 13:36 13:37 13:55 WBC RBC Hgb Hct MCV MCH MCHC RDW Std Deviation RDW Coeff of Shayy Plt Count MPV Immature Gran % (Auto) Neut % (Auto) Lymph % (Auto) Miner % (Auto) Eos % (Auto) Baso % (Auto) Neut # (Auto) Lymph # (Auto) Miner # (Auto) Eos # (Auto) Baso # (Auto) Immature Gran # (Auto) Absolute Nucleated RBC Nucleated RBC % (auto) PT INR APTT PTT Ratio ABG pH 7.48 H ABG pCO2 36 ABG pO2 68 L ABG HCO3 26 H ABG O2 Saturation 94.2 ABG Base Excess 2.9 H Sonny Test Pos VBG pH VBG pCO2 VBG pO2 VBG HCO3 VBG O2 Saturation VBG Base Excess Barometric Pressure 725.5 Oxygen Given ROOM AIR Sodium Potassium Chloride Carbon Dioxide Anion Gap BUN Creatinine Est Cr Clr Drug Dosing Est GFR ( Amer) Est GFR (Non-Af Amer) BUN/Creatinine Ratio Glucose POC Glucose Lactate 2.1 H* Calcium Magnesium Total Bilirubin AST ALT Alkaline Phosphatase Ammonia Lactate Dehydrogenase Total Creatine Kinase CK-MB (CK-2) CK/CKMB % Calc Troponin I Total Protein Albumin Globulin Albumin/Globulin Ratio Vitamin B1 Vitamin B12 Folate TSH Urine Color Yellow Urine Appearance Clear Urine pH >= 9.0 H Ur Specific [place] 1.008 Urine Protein 2+ H Urine Glucose (UA) Trace H Urine Ketones Negative Urine Blood Negative Urine Nitrite Negative Urine Bilirubin Negative Urine Urobilinogen Negative Ur Leukocyte Esterase Negative Urine WBC (Auto) 1-5 Urine RBC (Auto) 5-10 H U Hyaline Cast (Auto) 1-5 U Epithel Cells (Auto) 20-30 H Urine Bacteria (Auto) Negative Nasal Screen MRSA (PCR) COVID-19 Eval Order SARS-CoV-2, RNA, NAAT 10/11/20 10/11/20 16:15 Unknown WBC RBC Hgb Hct MCV MCH MCHC RDW Std Deviation RDW Coeff of Shayy Plt Count MPV Immature Gran % (Auto) Neut % (Auto) Lymph % (Auto) Miner % (Auto) Eos % (Auto) Baso % (Auto) Neut # (Auto) Lymph # (Auto) Miner # (Auto) Eos # (Auto) Baso # (Auto) Immature Gran # (Auto) Absolute Nucleated RBC Nucleated RBC % (auto) PT INR APTT PTT Ratio ABG pH ABG pCO2 ABG pO2 ABG HCO3 ABG O2 Saturation ABG Base Excess Sonny Test VBG pH VBG pCO2 VBG pO2 VBG HCO3 VBG O2 Saturation VBG Base Excess Barometric Pressure Oxygen Given Sodium Potassium Chloride Carbon Dioxide Anion Gap BUN Creatinine Est Cr Clr Drug Dosing Est GFR ( Amer) Est GFR (Non-Af Amer) BUN/Creatinine Ratio Glucose POC Glucose 125 H Lactate Calcium Magnesium Total Bilirubin AST ALT Alkaline Phosphatase Ammonia Lactate Dehydrogenase Total Creatine Kinase CK-MB (CK-2) CK/CKMB % Calc Troponin I Total Protein Albumin Globulin Albumin/Globulin Ratio Vitamin B1 Vitamin B12 Folate TSH Urine Color Urine Appearance Urine pH Ur Specific [place] Urine Protein Urine Glucose (UA) Urine Ketones Urine Blood Urine Nitrite Urine Bilirubin Urine Urobilinogen Ur Leukocyte Esterase Urine WBC (Auto) Urine RBC (Auto) U Hyaline Cast (Auto) U Epithel Cells (Auto) Urine Bacteria (Auto) Nasal Screen MRSA (PCR) Negative COVID-19 Eval Order SARS-CoV-2, RNA, NAAT PG Care Time/CCT Total # of Minutes Spent Total Time Spent with Patient: Total time spent is greater than 50% in coordination of care (as documented) at patient's floor/unit and/or counseling patient: Coding Level of Care Code 97418 Inpt Consult Level 4 Diagnoses ESRD on dialysis N18.6; Z99.2 Macrocytic anemia D53.9 Altered mental state R41.0 Altered mental status type: delirium Pneumonia J18.9 Laterality: unspecified laterality Lung location: unspecified part of lung Pneumonia type: due to unspecified organism Dementia F03.90 Dementia type: vascular dementia Stroke I63.9 Laterality of affected vessel: unspecified Aphasia R47.01 CAD (coronary artery disease) I25.10 Associated angina: without angina Coronary Disease-Associated Artery/Lesion type: [place] artery [place] vs. transplanted heart: [place] heart Hypertension I10 Chronic systolic CHF (congestive heart failure) I50.22 (1) CAD (coronary artery disease) Associated angina: without angina Coronary Disease-Associated Artery/Lesion type: [place] artery [place] vs. transplanted heart: [place] heart Qualified Code(s): I25.10 - Atherosclerotic heart disease of [place] coronary artery without angina pectoris (2) Dementia Dementia type: vascular dementia (3) Altered mental state Altered mental status type: delirium Qualified Code(s): R41.0 - Dis orientation, unspecified (4) Pneumonia Laterality: unspecified laterality Lung location: unspecified part of lung Pneumonia type: due to unspecified organism Qualified Code(s): J18.9 - Pneumonia, unspecified organism (5) Stroke Laterality of affected vessel: unspecified
[2020-10-11] MEDS: PIPERACILLIN/TAZOBACTAM 3.375 GM in DEXTROSE 5% 100 ML IV SCH (20:25)
[2020-10-11] MEDS: CITALOPRAM 20 MG TAB PO SCH (20:30)
[2020-10-11] MEDS: ATORVASTATIN 40 MG TAB PO SCH (20:31)
[2020-10-11] MEDS: amLODIPine BESYLATE 5 MG TAB PO SCH (20:31)
[2020-10-11] MEDS: HEPARIN SOD 5,000 UNIT/0.5 ML VIAL SQ SCH (20:31)
[2020-10-11] MEDS: FAMOTIDINE 10 MG TABLET PO SCH (20:33)
[2020-10-12] MEDS ORDERED: SODIUM CHLORIDE 0.9% 1000ML 1,000 ML IV PRN (07:00)
[2020-10-12] MEDS: CLOPIDOGREL BISULFATE 75 MG TAB PO SCH (07:21)
[2020-10-12] MEDS: NEPHROCAPS PO SCH (07:22)
[2020-10-12] MEDS: levETIRAcetam 500 MG TAB PO SCH (07:22)
[2020-10-12] MEDS: ISOSORBIDE MONO EXTENDED REL 30 MG TABCR PO SCH (07:23)
[2020-10-12] MEDS: CALCITRIOL 0.25 MCG CAPSULE PO SCH (07:23)
[2020-10-12] MEDS: DOCUSATE SODIUM 100 MG CAP PO SCH (07:24)
[2020-10-12] MEDS: THIAMINE HCL 100 MG TAB PO SCH (07:25)
[2020-10-12] MEDS: POLYETHYLENE (MIRALAX) 17 GM PACK PO SCH (07:25)
[2020-10-12] MEDS: ASPIRIN 81 MG ECTAB PO SCH (07:27)
[2020-10-12] MEDS: PIPERACILLIN/TAZOBACTAM 3.375 GM in DEXTROSE 5% 100 ML IV SCH ×2 (07:27→20:58)
[2020-10-12] MEDS: HEPARIN SOD 5,000 UNIT/0.5 ML VIAL SQ SCH ×2 (07:27→20:57)
[2020-10-12 08:08] LABS: BUN Creatinine Ratio 10.2 (10-20); Calcium 8.8 mg/dl (8.5-10.1); Creatinine Clr Calc Pharmacy 14.1 ml/min; Est GFR (African American) 18.7; Est GFR (Non-African American) 16.1; Potassium 4.7 mmol/L (3.5-5.1)
--- NOTE | 2020-10-12 09:33 | Pharmacy Report ---
Pharmacy Abx Dose Short Note - Date of Service October 12, 2020 - Assessment & Plan Assessment 75 year old M receiving vancomycin/Zosyn/levaquin for treatment of pneumonia Day # 2 of antimicrobial therapy. Plan Vancomycin * Random level of 13.1 mcg/mL is subtherapeutic - patient to have hemodialysis today * Give vancomycin 750 mg IV x 1 after dialysis * Goal trough level for pneumonia : 15 to 20 mcg/mL * Random level ordered for: 10/13/20 Pharmacy will continue to follow and will adjust dose/frequency as necessary. Thank you.
--- NOTE | 2020-10-12 09:49 | Neurology Consultation ---
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 Patient has a chronic occlusion of the left internal carotid artery and a diabetic polyneuropathy. He has chronic flaccid weakness of both lower limbs that I suspect is multifactorial. He presents with altered mental status in the context of possible aspiration pneumonia. I would recommend obtaining an up-to-date noncontrast brain MRI to exclude subacute stroke. Continue with Keppra at the current dosage. Continue with atorvastatin and clopidogrel as well for secondary stroke risk reduction. I would not recommend starting a cholinesterase inhibitor or memantine for his dementia at this point in time as the potential for side effects likely outweighs any benefit in this patient. Management of pneumonia per hospitalist service. History of Present Illness Reason for Consultation: Recurrent confusion, history of stroke Requesting Physician: Luis Enrique Pacheco Attending Physician: Luis Enrique Pacheco History of Present Illness The patient is a 75-year old male with a history of large left middle cerebral artery stroke occurring in 2008 with chronic residual right hemiparesis and aphasia, probable vascular dementia, and seizure disorder. He was evaluated by Dr. Gray and Dr. Shell during his previous admission to [facility] earlier this month. He had been noted to have multiple episodes of unresponsiveness associated with hemodialysis. He has a history of bilateral carotid endarterectomy with reocclusion of the left internal carotid. He has a history of diabetic polyneuropathy and a right hip fracture occurring this past August. He did have an EEG completed on October 04, 2020 that revealed diffuse mild generalized slowing suggestive of a toxic metabolic encephalopathy, dementia, or other global cerebral dysfunction. No epileptiform abnormalities were observed. He did have a brain MRI completed on October 01, 2020 that revealed a small acute on chronic right posterior occipital lobe infarct, and old left frontal lobe infarct, chronic occlusion of the left internal carotid artery, and atrophy and chronic microvascular ischemic disease. I reviewed the images as well as the radiologist's interpretation of this report and agree. 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 The patient presented to the emergency department yesterday from [facility] for further evaluation and management of change in mental status. He has been noted to reply with only yes or no to questions. A CT of the head completed yesterday was negative for hemorrhage or acute process. He was felt to possibly have aspiration pneumonia on a chest x-ray and was noted to have an elevation in white blood cell count as well. He was started on broad-spectrum antibiotics. He has been taking clopidogrel although aspirin was added to his medication regimen during this hospitalization. 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 He was seen by nephrology, Dr. Soliman yesterday. Hemodialysis will be continued. A Keppra level from October 12, 2020 was 18.9, typical range 12-46. Allergies Allergy/AdvReac Type Severity Reaction Status Date / Time adhesive Allergy Unknown BLISTERING Verified 10/11/20 09:49 OF SKIN latex Allergy Unknown Rash Verified 10/11/20 09:49 Home Medications Medication Instructions Recorded Confirmed Type Renal Caps 1 cap PO QAM #30 cap 11/20/19 10/11/20 Rx polyethylene glycol 3350 [Miralax] 17 gm PO DAILY #0 ea 12/04/19 10/11/20 Rx atorvastatin [Lipitor] 80 mg PO HS 02/18/20 10/11/20 History clopidogrel [Plavix] 75 mg PO DAILY 02/18/20 10/11/20 History levetiracetam [Keppra] 500 mg PO 4XWK 02/18/20 10/11/20 History famotidine 40 mg tablet 40 mg PO BID #180 tab 03/01/20 10/11/20 Rx docusate sodium [Stool Softener] 100 mg PO DAILY 04/13/20 10/11/20 History calcitriol 0.25 mcg capsule 0.25 mcg PO 3XWK #15 cap 08/09/20 10/11/20 Rx citalopram 10 mg tablet 10 mg PO HS #30 tab 09/05/20 10/11/20 Rx acetaminophen 650 mg PO Q6H PRN MDD 3000 MG 09/30/20 10/11/20 History APAP/24 HOURS amlodipine [Norvasc] 2.5 mg PO HS 09/30/20 10/11/20 History hydrocortisone [Proctosol HC] 1 appln PA Q24H PRN 09/30/20 10/11/20 History sennosides [Senokot] 8.6 mg PO Q48H PRN 09/30/20 10/11/20 History isosorbide mononitrate 30 mg PO DAILY #30 tab 10/04/20 10/11/20 Rx Patient History Medical History Benign prostatic hyperplasia CAD (coronary artery disease) s/p CABG 2007 Carotid artery stenosis s/p remote R & L endarterectomies with L re-occlusion sometime before 2010. Being monitored by [facility] neuro, on Plavix. Chronic kidney disease Congestive heart failure (CHF) Dementia Depression Diabetes mellitus, type 2 A1C 5.4% 11/2019. Not on any medication. Diabetic peripheral neuropathy Esophageal reflux Flash pulmonary edema 11/2019 Hemodialysis patient SAT/SAT/SATURDAY [facility] 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 (1 YEAR AFTER AR) ? Hyperlipidemia Hypertension Memory problem PT REPORTS "DEMENTIA" "COMES AND GOES" Myocardial Infarction 1989? Renal artery stenosis s/p left renal artery stenting; moderate right renal artery stenosis but no significant left renal artery stenosis on 11/2019 duplex Seizure disorder Stable on Keppra, no seizure for "a long time." Follows with [facility] neurology. SNHL (sensorineural hearing loss) Surgical History History of aorto-femoral bypass History of bypass graft (non vein) Aortic-femoral or bifemoral History of carotid endarterectomy L 1998, R 2009 History of cataract surgery RT/LEFT History of colonoscopy History of esophagogastroduodenoscopy (EGD) History of tooth extraction History of vascular access device IJ FOR DIAYLSIS S/P CABG (coronary artery bypass graft) (2007) [facility] Family History Brother Hypertension Hypercholesteremia Sister Diabetes Unknown Hypertension Cardiac disorder Social History Smoking Status: Unknown if ever smoked Tobacco Type: Cigarettes Cigarettes Per Day: 30; Second Hand Exposure: No; Hx Alcohol Use: No (unable to assess) Hx Substance Use: No (unable to assess) Preferred Language: Bol[place]ian Communication Ability: Impaired Communication Ability Comment: aphasic Visual Impairment: No Limitations Turf Manager Required: No Beliefs That Will Affect Care: None marital status: Current Living Situation: Spouse Current Living Situation Comment: at [facility] current occupational status: 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 Pertinent findings are described below. He was lying comfortably in bed and exhibited mild lethargy. Attention was slightly impaired. He was not oriented and displayed some difficulty with object naming. The right eye was exotropic. He displayed a moderately severe right hemiplegia and superimposed paraplegia. Lower limbs are flaccid and areflexive. Results & Data ([facility]) Vital Signs (Past 12 Hours) Vital Signs Temp Pulse Pulse Resp BP Pulse Ox Pulse Ox 10/12/20 08:48 70 10/12/20 08:01 36.7 C 70 18 119/74 96 10/12/20 08:00 77 96 10/12/20 05:07 36.9 C 90 18 125/82 95 10/12/20 00:12 37.3 C 93 H 18 142/87 H 96 10/11/20 23:59 88 PG Care Time/CCT Total # of Minutes Spent Total Time Spent with Patient: Total time spent is greater than 50% in coordination of care (as documented) at patient's floor/unit and/or counseling patient: 70 minutes Coding Level of Care Code 26587 Initial Inpt Care Lvl 3 Diagnoses History of cerebrovascular accident Z86.73 Dementia F03.90 Dementia type: vascular dementia Seizure disorder G40.909 (1) Dementia Dementia type: vascular dementia
--- NOTE | 2020-10-12 12:30 | Nephrology Progress Note ---
Date of Service October 12, 2020 Assessment & Plan (1) ESRD on dialysis: HD MWF. Orders for HD today have been entered into the EMR and discussed with the HD nurse. BP and volume status are currently acceptable. Electrolytes controlled. We have been using TDC due to issues with needles becoming dislodged during dialysis treatments. Overall, Miguel's condition continues to decline and I fear his life expectancy is very limited. The risks/benefits of continuing dialysis are becoming increasingly less favorable. I did discuss this with his family today. We discussed options, including stopping dialysis and having Miguel return home with hospice. However, they expressed concerns in this regard. It is very difficult to gauge Miguel's response or to understand how much he can comprehend. I appreciate the ongoing neurologic workup and neurology consultation. Given his current condition, I have consulted palliative care. He has been seen by palliative to help establish goals of care in the past. (2) Macrocytic anemia: Chronic, stable. Maintained on Venofer 100 mg QHD and Micera as outpatient. (3) Altered mental state: Noted progressive decline with noted vascular dementia. Overall goals of care continue to be addressed. Baseline mental and functional status appears to be declining rapidly complicated by expressive aphasia and multiple medical comorbidities. Prognosis is guarded. Appreciate neurology consultation. (4) Pneumonia: Vanco dosing per pharmacy consultation. Post HD 750 mg today Repeat level prior to next HD (Saturday). (5) Dementia: As above. (6) Stroke: (7) Aphasia: (8) CAD (coronary artery disease): (9) Hypertension: BP controlled. (10) Chronic systolic CHF (congestive heart failure): Volume status acceptable. Admission and Anticipated Discharge Date Admission Date: October 11, 2020 Subjective No acute events overnight. No fevers. Miguel opened his eyes and followed commands for me this morning. He did nod his head appropriately and otherwise communicated with his eyes. He did not talk. Overall, Miguel appeared very despondent. His most enthusiastic reply was when I asked him if he wanted me to call Princess (his ). When asked about dialysis, he turned his head and appeared apathetic but eventually did nod 'yes.' I had a long phone conversation with Princess and Miguel's son. I called each separately and encouraged them to discuss everything we talked about with each other. We discussed Miguel's current condition and overall prognosis. They expressed concerns regarding hospice and the ability to safely have Miguel at home but also conceded that their primary goal is to be able to spend as much quality time with Miguel as possible. Their ability to see Miguel at the halfway has been significantly constrained. Miguel's son can be reached at [phone]. He works from 1:00 p - 10 p and is unavailable during those hours. Review of Systems Review of Systems: Unobtainable due to cognitive status Physical Exam Constitutional: well developed, + thin and + frail appearing; no acute distress Eyes: + anicteric sclerae and PERRL ENMT: Mouth: no oral mucosal abnormality and oral mucous membranes not dry Neck: normal visual inspection and trachea midline RIJ TDC Respiratory: normal respiratory effort Auscultation: lungs clear to auscultation bilaterally Cardiovascular: Rate/Rhythm: regular rate Heart Sounds: normal S1 and normal S2 Extremities: + AV fistula; no edema Gastrointestinal (Abdomen): Percussion/Palpation: abdomen soft; abdomen nontender Musculoskeletal: Extremities: no cyanosis and no clubbing Skin: normal turgor; no lesions Neurologic: Motor/Sensory: no tremor and no asterixis Psychiatric: Orientation: alert and cooperative Results & Data ([facility]) Vital Signs (Past 12 Hours) Vital Signs Temp Pulse Pulse Resp BP Pulse Ox Pulse Ox 10/12/20 08:48 70 10/12/20 08:01 36.7 C 70 18 119/74 96 10/12/20 08:00 77 96 10/12/20 05:07 36.9 C 90 18 125/82 95 Laboratory Results Laboratory Results - last 24 hr 10/11/20 10/11/20 10/11/20 10:39 13:03 13:03 ABG pH ABG pCO2 ABG pO2 ABG HCO3 ABG O2 Saturation ABG Base Excess Sonny Test VBG pH Cancelled VBG pCO2 Cancelled VBG pO2 Cancelled VBG HCO3 Cancelled VBG O2 Saturation Cancelled VBG Base Excess Cancelled Barometric Pressure Cancelled Oxygen Given Sodium Potassium Chloride Carbon Dioxide Anion Gap BUN Creatinine Est Cr Clr Drug Dosing Est GFR ( Amer) Est GFR (Non-Af Amer) BUN/Creatinine Ratio Glucose POC Glucose Lactate Calcium Troponin I Vitamin B1 Vitamin B12 755 Folate > 20.00 TSH 3.470 Urine Color Urine Appearance Urine pH Ur Specific [place] Urine Protein Urine Glucose (UA) Urine Ketones Urine Blood Urine Nitrite Urine Bilirubin Urine Urobilinogen Ur Leukocyte Esterase Urine WBC (Auto) Urine RBC (Auto) U Hyaline Cast (Auto) U Epithel Cells (Auto) Urine Bacteria (Auto) Nasal Screen MRSA (PCR) Random Vancomycin 10/11/20 10/11/20 10/11/20 13:11 13:36 13:37 ABG pH 7.48 H ABG pCO2 36 ABG pO2 68 L ABG HCO3 26 H ABG O2 Saturation 94.2 ABG Base Excess 2.9 H Sonny Test Pos VBG pH VBG pCO2 VBG pO2 VBG HCO3 VBG O2 Saturation VBG Base Excess Barometric Pressure 725.5 Oxygen Given ROOM AIR Sodium Potassium Chloride Carbon Dioxide Anion Gap BUN Creatinine Est Cr Clr Drug Dosing Est GFR ( Amer) Est GFR (Non-Af Amer) BUN/Creatinine Ratio Glucose POC Glucose Lactate 2.1 H* Calcium Troponin I Vitamin B1 Pending Vitamin B12 Folate TSH Urine Color Urine Appearance Urine pH Ur Specific [place] Urine Protein Urine Glucose (UA) Urine Ketones Urine Blood Urine Nitrite Urine Bilirubin Urine Urobilinogen Ur Leukocyte Esterase Urine WBC (Auto) Urine RBC (Auto) U Hyaline Cast (Auto) U Epithel Cells (Auto) Urine Bacteria (Auto) Nasal Screen MRSA (PCR) Random Vancomycin 10/11/20 10/11/20 10/11/20 13:55 16:15 21:01 ABG pH ABG pCO2 ABG pO2 ABG HCO3 ABG O2 Saturation ABG Base Excess Sonny Test VBG pH VBG pCO2 VBG pO2 VBG HCO3 VBG O2 Saturation VBG Base Excess Barometric Pressure Oxygen Given Sodium Potassium Chloride Carbon Dioxide Anion Gap BUN Creatinine Est Cr Clr Drug Dosing Est GFR ( Amer) Est GFR (Non-Af Amer) BUN/Creatinine Ratio Glucose POC Glucose 125 H Lactate Calcium Troponin I 0.061 H* Vitamin B1 Vitamin B12 Folate TSH Urine Color Yellow Urine Appearance Clear Urine pH >= 9.0 H Ur Specific [place] 1.008 Urine Protein 2+ H Urine Glucose (UA) Trace H Urine Ketones Negative Urine Blood Negative Urine Nitrite Negative Urine Bilirubin Negative Urine Urobilinogen Negative Ur Leukocyte Esterase Negative Urine WBC (Auto) 1-5 Urine RBC (Auto) 5-10 H U Hyaline Cast (Auto) 1-5 U Epithel Cells (Auto) 20-30 H Urine Bacteria (Auto) Negative Nasal Screen MRSA (PCR) Random Vancomycin 10/11/20 10/12/20 10/12/20 Unknown 06:23 06:23 ABG pH ABG pCO2 ABG pO2 ABG HCO3 ABG O2 Saturation ABG Base Excess Sonny Test VBG pH VBG pCO2 VBG pO2 VBG HCO3 VBG O2 Saturation VBG Base Excess Barometric Pressure Oxygen Given Sodium 135 L Potassium 4.7 Chloride 98 Carbon Dioxide 27 Anion Gap 10.0 BUN 36 H Creatinine 3.50 H D Est Cr Clr Drug Dosing 14.1 Est GFR ( Amer) 18.7 Est GFR (Non-Af Amer) 16.1 BUN/Creatinine Ratio 10.2 Glucose 101 H POC Glucose Lactate Calcium 8.8 Troponin I Vitamin B1 Vitamin B12 Folate TSH Urine Color Urine Appearance Urine pH Ur Specific [place] Urine Protein Urine Glucose (UA) Urine Ketones Urine Blood Urine Nitrite Urine Bilirubin Urine Urobilinogen Ur Leukocyte Esterase Urine WBC (Auto) Urine RBC (Auto) U Hyaline Cast (Auto) U Epithel Cells (Auto) Urine Bacteria (Auto) Nasal Screen MRSA (PCR) Negative Random Vancomycin 13.1 PG Care Time/CCT Total # of Minutes Spent Total Time Spent with Patient: Total time spent is greater than 50% in coordination of care (as documented) at patient's floor/unit and/or counseling patient: Coding Level of Care Code 06719 Subseq Hosp Care Lvl 3 Diagnoses ESRD on dialysis N18.6; Z99.2 Macrocytic anemia D53.9 Altered mental state R41.0 Altered mental status type: delirium Pneumonia J18.9 Pneumonia type: due to unspecified organism Laterality: unspecified laterality Lung location: unspecified part of lung Dementia F03.90 Dementia type: vascular dementia Stroke I63.9 Laterality of affected vessel: unspecified Aphasia R47.01 CAD (coronary artery disease) I25.10 Coronary Disease-Associated Artery/Lesion type: [place] artery [place] vs. transplanted heart: [place] heart Associated angina: without angina Hypertension I10 Chronic systolic CHF (congestive heart failure) I50.22 (1) Altered mental state Altered mental status type: delirium Qualified Code(s): R41.0 - Disorientation, unspecified (2) Pneumonia Pneumonia type: due to unspecified organism Laterality: unspecified laterality Lung location: unspecified part of lung Qualified Code(s): J18.9 - Pneumonia, unspecified organism (3) Dementia Dementia type: vascular dementia (4) Stroke Laterality of affected vessel: unspecified (5) CAD (coronary artery disease) Coronary Disease-Associated Artery/Lesion type: [place] artery [place] vs. transplanted heart: [place] heart Associated angina: without angina Qualified Code(s): I25.10 - Atherosclerotic heart disease of [place] coronary artery without angina pectoris
[2020-10-12] MEDS ORDERED: VANCOMYCIN HCL 750 MG in SODIUM CHLORIDE 0.9% 250 ML IV SCH (16:00)
[2020-10-12] MEDS: FAMOTIDINE 10 MG TABLET PO SCH (20:57)
[2020-10-12] MEDS: ATORVASTATIN 40 MG TAB PO SCH (20:57)
[2020-10-12] MEDS: CITALOPRAM 20 MG TAB PO SCH (20:59)
--- NOTE | 2020-10-12 22:33 | Hospitalist Progress Note ---
Date of Service October 12, 2020 Assessment & Plan (1) Altered mental state: Patient with longstanding cerebrovascular disease as well as epileptic siezure disorder. Patient is more lethargic than baseline. - ABG for hypoxia - Blood glucose q6 hours - Abx for pneumonia, cultures pending. - Patient on no narcotics, withdrawl or toxicologic cause very unlikely. -Keppra level has been stable and level has been within therapuetic range - Vascular dementia or worsening CVA- Continue Plavix add ASA continue CVD medications - No recent trauma - Add on Thiamine as nutritional intake appears to be lacking in labs as well as exam. - EEG on last hospitalization with no seizure activity but slowing consistent with dementia. -Appreciate input from Nephro and Moshe. - repeat MRI showed: Findings suggestive of a subacute on chronic right occipital lobe infarct. Slight increase in extent of infarct since MRI of October 02, 2020. No significant mass effect. No hemorrhage. (2) Pneumonia: [facility] - New infiltrate on left lung - WBC at 10 with NLR 4.5:1 - Cough periodically unable to assess sputum - scattered crackles on exam - small pleural effusion- follow. - Lactate improved - Supportive care (3) Dementia: Patient with multiple CVAs - continue supportive medications as below in CVA. - Re-orient patient - sleep hygiene at night (4) Stroke: Chornic multiple CVA - Plavix 75 mg will add asprin on to EMD and daily - Patient is on optimum therapy for his disease process and lipids look well (5) Aphasia: Expressive, no change (6) ESRD on dialysis: Nephrology consulted for inpatient dialysis as needed. - ABX renal dosed, pharmacy consulted as well for assistance - avoid further nephrotoxic medications - Continue calcitriol and nephrocaps - renal diet (7) CAD (coronary artery disease): Cont statin Cont plavix Add asa in light of chronic stroke ECG daily trend troponin with slight elevation and non-specific st changes support hemodynamics and oxygen delivery (8) Hypertension: Support hemodynamics- Map >65 <110 - do not feel this is acute CVA (9) Chronic systolic CHF (congestive heart failure): No acute needs, chronic heart failure likely ischemic in nature - Continue optimization of medications as for CVA. - no additional needs. (10) Hypercholesteremia: At goal per last admission continue statin (11) Macrocytic anemia: Add on b12 and folate for labs. 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 Treat if >200 - Concern for hypoglycemia on last weeks admission as well. (13) VTE (venous thromboembolism): Admission and Anticipated Discharge Date Admission Date: October 11, 2020 Subjective Patient continues to be somewhat confused. He does not complain of any new complaints. Review of Systems Review of Systems: All systems reviewed & are unremarkable except as noted in HPI & below Physical Exam Physical Exam: Constitutional: WD/WN, vitals as above Eyes: normal visual prieto by confrontation and + anicteric sclerae Neck: normal visual inspection and trachea midline Respiratory: normal respiratory effort, lungs clear to auscultation Cardiovascular: Rate/Rhythm: regular rate and regular rhythm Gastrointestinal (Abdomen): Inspection/Auscultation: abdomen not distended Percussion/Palpation: abdomen soft; abdomen nontender Musculoskeletal: Head/Neck/Chest: normocephalic and head atraumatic Neg for peripheral LE edema, + pedal pulses Skin: no rashes, warm and dry Neurologic: awake; not confused Speech / Cognition: normal speech Psychiatric: Orientation: alert Results & Data Results & Data ([facility]) Vital Signs (Past 12 Hours) Vital Signs Temp Pulse Pulse Resp BP Pulse Ox Pulse Ox 10/12/20 19:15 37.3 C 97 H 18 132/82 96 10/12/20 15:57 97 10/12/20 15:30 36.9 C 102 H 20 151/84 H 94 10/12/20 14:46 37 C 65 166/79 H PG Care Time/CCT Total # of Minutes Spent Total Time Spent with Patient: Total time spent is greater than 50% in coordina tion of care (as documented) at patient's floor/unit and/or counseling patient: Coding Level of Care Code 84035 Subseq Hosp Care Lvl 3 Diagnoses Altered mental state R41.0 Altered mental status type: delirium Pneumonia J18.9 Laterality: unspecified laterality Lung location: unspecified part of lung Pneumonia type: due to unspecified organism Dementia F03.90 Dementia type: vascular dementia Stroke I63.9 Laterality of affected vessel: unspecified Aphasia R47.01 ESRD on dialysis N18.6; Z99.2 CAD (coronary artery disease) I25.10 Associated angina: without angina Coronary Disease-Associated Artery/Lesion type: [place] artery [place] vs. 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
[2020-10-12] MEDS: amLODIPine BESYLATE 5 MG TAB PO SCH (23:05)
[2020-10-13 07:18] LABS: BUN Creatinine Ratio 7.4 (10-20); Calcium 8.6 mg/dl (8.5-10.1); Creatinine Clr Calc Pharmacy 18.5 ml/min; Est GFR (African American) 25.7; Est GFR (Non-African American) 22.2; Potassium 3.7 mmol/L (3.5-5.1)
[2020-10-13] MEDS: THIAMINE HCL 100 MG TAB PO SCH (08:02)
[2020-10-13] MEDS: NEPHROCAPS PO SCH (08:03)
[2020-10-13] MEDS: ASPIRIN 81 MG ECTAB PO SCH (08:03)
[2020-10-13] MEDS: ISOSORBIDE MONO EXTENDED REL 30 MG TABCR PO SCH (08:03)
[2020-10-13] MEDS: HEPARIN SOD 5,000 UNIT/0.5 ML VIAL SQ SCH ×2 (08:04→20:25)
[2020-10-13] MEDS: CLOPIDOGREL BISULFATE 75 MG TAB PO SCH (08:04)
[2020-10-13] MEDS: POLYETHYLENE (MIRALAX) 17 GM PACK PO SCH (08:04)
[2020-10-13] MEDS: DOCUSATE SODIUM 100 MG CAP PO SCH (08:05)
[2020-10-13] MEDS: PIPERACILLIN/TAZOBACTAM 3.375 GM in DEXTROSE 5% 100 ML IV SCH ×2 (08:12→19:43)
--- NOTE | 2020-10-13 08:35 | Magnetic Resonance Report ---
MRI OF THE BRAIN WITHOUT CONTRAST CLINICAL HISTORY: Altered mental status, history of stroke COMPARISON STUDY: MRI of the brain October 02, 2020. Head CT October 11, 2020 TECHNIQUE: Utilizing a 1.5 Barbra magnet and dedicated coil, multiplanar, multiecho imaging of the bra in was performed without IV contrast. FINDINGS: Note is again made of increased signal intensity within a right occipital lobe infarct show n on axial diffusion-weighted sequence image 11 of 23. This is mildly hypointense on the ADC map. Thi s was shown on MRI of October 02, 2020. Extensive infarction has slightly increased since prior exam. This favors a subacute on chronic infarct. There is no mass effect. There is no hemorrhage. Left fro ntal lobe infarct is noted. Ventricular dilatation is unchanged. Basal cisterns are patent. There are no extra axial collections. Chronic occlusion of the left internal carotid artery is again noted. Th is was shown on prior exams. Calvarial signal is normal. A few old lacunar infarcts within the cerebe llum are noted. White matter T2 hyperintense foci suggest small vessel disease. Marked atrophy is aga in noted. IMPRESSION: 1. Findings suggestive of a subacute on chronic right occipital lobe infarct. Slight increase in exte nt of infarct since MRI of October 02, 2020. No significant mass effect. No hemorrhage. 2. Old left frontal lobe infarct. 3. Marked atrophy. 4. Redemonstration of chronic occlusion of the left internal carotid artery. ACT 112: Negative or not required by law. Electronically signed by: Madan Mancilla M.D. 10/13/2020 8:33 AM
[2020-10-13 09:29] LABS: Basophils # (auto) 0.02 K/uL (0-0.2); Basophils % (auto) 0.3 %; Eosinophils # (auto) 0.13 K/uL (0-0.5); Eosinophils % (auto) 1.7 %; Hematocrit (blood only) 35.6 % (42-52); Immature Granulocytes # (auto) 0.03 K/uL (0.00-0.02); Immature Granulocytes % (auto) 0.4 %; Lymphocytes # (auto) 1.38 K/uL (1.2-3.4); Lymphocytes % (auto) 18.3 %; Mean Corpuscular Hemoglobin 31.5 pg (25-34); Mean Corpuscular Hgb Conc 30.9 g/dL (32-36); Mean Platelet Volume 10.9 fL (7.4-10.4); Monocytes # (auto) 1.28 K/uL (0.11-0.59); Neutrophils % (auto) 62.3 %; Nucleated RBC # (auto) 0.02 K/uL (0-0); Nucleated RBC % (auto) 0.3 %; Platelet Count 315 K/uL (130-400); RDW Coefficient of Variation 17.3 % (11.5-14.5); RDW Standard Deviation 64.7 fL (36.4-46.3); Red Blood Count 3.49 M/uL (4.7-6.1); White Blood Count 7.54 K/uL (4.8-10.8)
--- NOTE | 2020-10-13 10:08 | Neurology Progress Note ---
Date of Service October 13, 2020 Assessment & Plan (1) Seizure disorder: (2) History of cerebrovascular accident: (3) Dementia: Subacute on chronic right occipital lobe infarct which appears more prominent on patient's brain MRI completed yesterday, as compared with the MRI done on October 02, 2020. The significance of this finding in the context of his current altered mental status is not entirely clear, especially in light of his chronic neurological comorbidities and suspected pneumonia for which he is currently being treated. Patient should continue with daily low-dose aspirin, clopidogrel, and atorvastatin. He has already had a fairly recent extensive stroke evaluation and I do not think additional CT angiography or a another echocardiogram would alter his management at this point in time. Subclinical seizures are unlikely. A recent Keppra level was therapeutic. He s hould continue with this medication at the current dosage. I do not think a repeat EEG is necessary at this time. As described previously, I would not initiate treatment for dementia with a cholinesterase inhibitor or memantine at this point in time. Please see yesterday's neurologic consultation for further details. I have no further immediate recommendations for this patient's neurological c are. Please contact me if you have any additional questions or concerns regarding my assessment of this patient. Admission and Anticipated Discharge Date Admission Date: October 11, 2020 Subjective Follow-up for history of stroke, dementia, seizure disorder The patient is a 75-year-old male with the above history who was admitted to the hospital 2 days ago for further evaluation and management of altered mental status characterized by answering questions with only yes or no. He is currently getting treated for pneumonia and is also following with nephrology for end-stage renal disease requiring hemodialysis. Please see my initial consultation from yesterday for additional details. I had recommended completion of an up-to-date noncontrast brain MRI. The study was completed yesterday and revealed a subacute on chronic right occipital lobe infarct, slight increase in size compared with the previous brain MRI done on October 02, 2020. There is a chronic old left frontal lobe infarct and significant atrophy. There is chronic occlusion of the left internal carotid artery as well. These findings were observed by the interpreting radiologist. I reviewed the images and agree. There is no much change in this patient's neurological assessment this morning, as compared with my assessment of him yesterday. He continues to display a chronic spastic right hemiplegia, superimposed paraplegia, incomplete aphasia, and severe vascular dementia. He is alert, modestly inattentive, oriented to hospital although indicates that this is [facility] rather than [facility]. He is able to name simple objects such as pen and neck tie. Results & Data ([facility]) Vital Signs (Past 12 Hours) Vital Signs Temp Pulse Pulse Resp BP Pulse Ox 10/13/20 08:10 89 10/13/20 08:00 36.8 C 91 H 20 132/81 100 10/13/20 05:10 36.9 C 87 18 142/85 H 96 10/12/20 23:18 37.1 C 81 18 110/66 98 Coding Level of Care Code 17242 Subseq Hosp Care Lvl 2 Diagnoses Seizure disorder G40.909 History of cerebrovascular accident Z86.73 Dementia F03.90 Dementia type: vascular dementia (1) Dementia Dementia type: vascular dementia
--- NOTE | 2020-10-13 10:12 | Nephrology Progress Note ---
Date of Service October 13, 2020 Assessment & Plan (1) ESRD on dialysis: HD MWF. BP, volume status, and electrolytes are currently acceptable. Plan next HD tomorrow per schedule. TDC functioning well. Clearances have been acceptable. (2) Macrocytic anemia: Chronic, stable. Maintained on Venofer 100 mg QHD and Micera as outpatient. (3) Altered mental state: Currently being treated for pneumonia. Improvement noted since admission. Miguel has had progressive decline with underlying dementia over the past several months. Neurology consultation appreciated. Medical therapy for dementia not recommended. MRI demonstrates subacute on chronic right occipital lobe infarct slightly increased in size since October 02, 2020. Chronic changes also noted. Overall goals of care continue to be addressed. It is increasingly difficult to discuss goals of care with Miguel directly and his family is struggling due to inability to physically see him. (4) Pneumonia: Vanco dosing per pharmacy consultation. Repeat level prior to next HD tomorrow. (5) Dementia: As above Admission and Anticipated Discharge Date Admission Date: October 11, 2020 Subjective No acute events overnight. Miguel was resting comfortably in bed this morning. He told me that he is "not good." He did not elaborate but denied any pain or dyspnea. No fevers or chills. He told me that he did speak to his son (Heriberto) and (Princess) today. He tolerated HD yesterday without complications. Review of Systems Review of Systems: All systems reviewed & are unremarkable except as noted in HPI & below Physical Exam Constitutional: well developed, + thin and + frail appearing; no acute distress Eyes: + anicteric sclerae and PERRL ENMT: Mouth: no oral mucosal abnormality and oral mucous membranes not dry Neck: normal visual inspection and trachea midline Respiratory: normal respiratory effort Auscultation: lungs clear to auscultation bilaterally Cardiovascular: Rate/Rhythm: regular rate Heart Sounds: normal S1 and normal S2 Extremities: + AV fistula; no edema Gastrointestinal (Abdomen): Percussion/Palpation: abdomen soft; abdomen nontender Musculoskeletal: Extremities: no cyanosis and no clubbing Skin: normal turgor; no lesions Neurologic: Motor/Sensory: no tremor and no asterixis Psychiatric: Orientation: alert and cooperative Results & Data ([facility]) Vital Signs (Past 12 Hours) Vital Signs Temp Pulse Pulse Resp BP Pulse Ox 10/13/20 08:10 89 10/13/20 08:00 36.8 C 91 H 20 132/81 100 10/13/20 05:10 36.9 C 87 18 142/85 H 96 10/12/20 23:18 37.1 C 81 18 110/66 98 Laboratory Results Laboratory Results - last 24 hr 10/13/20 10/13/20 06:36 06:40 WBC 7.54 RBC 3.49 L Hgb 11.0 L Hct 35.6 L MCV 102.0 H MCH 31.5 MCHC 30.9 L RDW Std Deviation 64.7 H RDW Coeff of Shayy 17.3 H Plt Count 315 MPV 10.9 H Immature Gran % (Auto) 0.4 Neut % (Auto) 62.3 Lymph % (Auto) 18.3 [place] % (Auto) 17.0 Eos % (Auto) 1.7 Baso % (Auto) 0.3 Neut # (Auto) 4.70 Lymph # (Auto) 1.38 [place] # (Auto) 1.28 H Eos # (Auto) 0.13 Baso # (Auto) 0.02 Immature Gran # (Auto) 0.03 H Absolute Nucleated RBC 0.02 H Nucleated RBC % (auto) 0.3 Sodium 135 L Potassium 3.7 D Chloride 101 Carbon Dioxide 27 Anion Gap 8.0 BUN 20 H Creatinine 2.69 H D Est Cr Clr Drug Dosing 18.5 Est GFR ( Amer) 25.7 Est GFR (Non-Af Amer) 22.2 BUN/Creatinine Ratio 7.4 L Glucose 87 Calcium 8.6 PG Care Time/CCT Total # of Minutes Spent Total Time Spent with Patient: Total time spent is greater than 50% in coordination of care (as documented) at patient's floor/unit and/or counseling patient: Coding Level of Care Code 76607 Subseq Hosp Care Lvl 3 Diagnoses ESRD on dialysis N18.6; Z99.2 Macrocytic anemia D53.9 Altered mental state R41.0 Altered mental status type: delirium Pneumonia J18.9 Pneumonia type: due to unspecified organism Laterality: unspecified laterality Lung location: unspecified part of lung Dementia F03.90 Dementia type: vascular dementia (1) Altered mental state Altered mental status type: delirium Qualified Code(s): R41.0 - Disorientation, unspecified (2) Pneumonia Pneumonia type: due to unspecified organism Laterality: unspecified laterality Lung location: unspecified part of lung Qualified Code(s): J18.9 - Pneumonia, unspecified organism (3) Dementia Dementia type: vascular dementia
--- NOTE | 2020-10-13 11:07 | Palliative Care Consultation ---
Date of Consultation October 13, 2020 Assessment & Plan (1) Palliative care encounter: I spoke with Mrs. Mata on the phone and updated her on the visit that I had with him. She has been having a difficult time with his hospitalizations and rehab stay, particularly with not being able to visit him. She has seen a progressive decline and realizes that he is weaker. We discussed the cumulative effect of his many medical problems. I asked her if Miguel had ever discussed his thoughts about goals or preferences for his health care. She tells me that she tried to talk with him about that when he started dialysis, but he did not want to talk about it. He has never expressed his views or completed an advance directive. We discussed the risks of repeated hospitalizations with his many medical problems. She would prefer for him to be at home but does not feel that she would be able to care for him at home. She does not feel that he would want to de-escalate care or change code status. She feels that he would want to continue with hospitalizations and whatever care would be necessary. She did ask if she would be able to see him. We discussed a zoom visit. She will check with her son to see if he has a device to do that. Palliative care will follow. Thank you for allowing us to participate in his care. (2) End stage renal failure on dialysis: (3) History of cerebrovascular accident: (4) Aphasia: (5) Dementia: Dementia type: vascular dementia History of Present Illness Reason for Consultation: goals of care Requesting Physician: Dr. Maxwell Attending Physician: Luis Enrique Pacheco History of Present Illness 75 yo gentleman with ESRD on hemodialysis. He also has cerebrovascular disease with h/o prior left cerebral infarct and residual right hemiparesis. He has also had a more recent occipital CVA a few weeks ago and has vascular dementia and h/o seizures. This is his third hospitalization in the last six weeks including a hip fracture in August. He was transferred from [facility] where he had been receiving rehab when he became lethargic. He is currently being treated for pneumonia. He is sleeping but easily arousable and tells me "I was dreaming". He is pleasant and cooperative but does not seem to have insight into his current medical problems. We have been consulted to assist with goals of care. Allergies Allergy/AdvReac Type Severity Reaction Status Date / Time adhesive Allergy Unknown BLISTERING Verified 10/11/20 09:49 OF SKIN latex Allergy Unknown Rash Verified 10/11/20 09:49 Home Medications Medication Instructions Recorded Confirmed Type Renal Caps 1 cap PO QAM #30 cap 11/20/19 10/11/20 Rx polyethylene glycol 3350 [Miralax] 17 gm PO DAILY #0 ea 12/04/19 10/11/20 Rx atorvastatin [Lipitor] 80 mg PO HS 02/18/20 10/11/20 History clopidogrel [Plavix] 75 mg PO DAILY 02/18/20 10/11/20 History levetiracetam [Keppra] 500 mg PO 4XWK 02/18/20 10/11/20 History famotidine 40 mg tablet 40 mg PO BID #180 tab 03/01/20 10/11/20 Rx docusate sodium [Stool Softener] 100 mg PO DAILY 04/13/20 10/11/20 History calcitriol 0.25 mcg capsule 0.25 mcg PO 3XWK #15 cap 08/09/20 10/11/20 Rx citalopram 10 mg tablet 10 mg PO HS #30 tab 09/05/20 10/11/20 Rx acetaminophen 650 mg PO Q6H PRN MDD 3000 MG 09/30/20 10/11/20 History APAP/24 HOURS amlodipine [Norvasc] 2.5 mg PO HS 09/30/20 10/11/20 History hydrocortisone [Proctosol HC] 1 appln SD Q24H PRN 09/30/20 10/11/20 History sennosides [Senokot] 8.6 mg PO Q48H PRN 09/30/20 10/11/20 History isosorbide mononitrate 30 mg PO DAILY #30 tab 10/04/20 10/11/20 Rx Patient History Medical History Benign prostatic hyperplasia CAD (coronary artery disease) s/p CABG 2007 Carotid artery stenosis s/p remote R & L endarterectomies with L re-occlusion sometime before 2010. Being monitored by [facility] neuro, on Plavix. Chronic kidney disease Congestive heart failure (CHF) Dementia Depression Diabetes mellitus, type 2 A1C 5.4% 11/2019. Not on any medication. Diabetic peripheral neuropathy Esophageal reflux Flash pulmonary edema 11/2019 Hemodialysis patient SAT/SAT/[facility]DAY [facility] 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 (1 YEAR AFTER MT) ?1989' Hyperlipidemia Hypertension Memory problem PT REPORTS "DEMENTIA" "COMES AND GOES" Myocardial Infarction 1989? Renal artery stenosis s/p left renal artery stenting; moderate right renal artery stenosis but no significant left renal artery stenosis on 11/2019 duplex Seizure disorder Stable on Keppra, no seizure for "a long time." Follows with [facility] neurology. SNHL (sensorineural hearing loss) Surgical History History of aorto-femoral bypass History of bypass graft (non vein) Aortic-femoral or bifemoral History of carotid endarterectomy L 1998, R 2009 History of cataract surgery RT/LEFT History of colonoscopy History of esophagogastroduodenoscopy (EGD) History of tooth extraction History of vascular access device IJ FOR DIAYLSIS S/P CABG (coronary artery bypass graft) (2007) [facility] Family History Brother Hypertension Hypercholesteremia Sister Diabetes Unknown Hypertension Cardiac disorder Social History Smoking Status: Unknown if ever smoked Tobacco Type: Cigarettes Cigarettes Per Day: 30; Second Hand Exposure: No; Hx Alcohol Use: No (unable to assess) Hx Substance Use: No (unable to assess) Preferred Language: Turkmen Communication Ability: Impaired Communication Ability Comment: aphasic Visual Impairment: No Limitations Child Care Provider Required: No Beliefs That Will Affect Care: None marital status: Current Living Situation: Spouse Current Living Situation Comment: at [facility] current occupational status: 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" Other Information That Helps Us Care for You: No Feels Safe at Home: Yes Safety Concerns: Feels Safe At This Time caffeine: No Seatbelt Use: always Assistive Devices: None Review of Systems Review of Systems: V[place] Symptom Assessment Scale Pain 0/3 Dyspnea 0/3 Nausea 0/3 Anxiety 0/3 Drowsiness 1/3 Palliative Performance Score 40% Physical Exam Constitutional: + thin and + frail appearing; no acute distress ENMT: Mouth: + dry oral mucous membranes Respiratory: normal respiratory effort; no labored breathing Gastrointestinal (Abdomen): Percussion/Palpation: abdomen soft; abdomen nontender Musculoskeletal: Extremities: + muscle atrophy Neurologic: + confused right sided weakness Psychiatric: Orientation: alert and oriented to person Results & Data ([facility]) Vital Signs (Past 12 Hours) Vital Signs Temp Pulse Pulse Resp BP Pulse Ox 10/13/20 08:10 89 10/13/20 08:00 98.2 F 91 H 20 132/81 100 10/13/20 05:10 98.4 F 87 18 142/85 H 96 10/12/20 23:18 98.8 F 81 18 110/66 98 PG Care Time/CCT Total # of Minutes Spent Total Time Spent with Patient: Total time spent is greater than 50% in coordination of care (as documented) at patient's floor/unit and/or counseling patient: Total time spent 65 minutes with more than 50% of time spent on goals of care, family support and communication Coding Level of Care Code 17205 Inpt Consult Level 3 Diagnoses Palliative care encounter Z51.5 End stage renal failure on dialysis N18.6; Z99.2 History of cerebrovascular accident Z86.73 Aphasia R47.01 Dementia F03.90 Dementia type: vascular dementia
[2020-10-13] MEDS: levoFLOXacin 500 MG TAB PO SCH (12:09)
--- NOTE | 2020-10-13 18:40 | Hospitalist Progress Note ---
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 Patient is more lethargic than baseline. - ABG for hypoxia - Blood glucose q6 hours - Abx for pneumonia, cultures pending. - Patient on no narcotics, withdrawl or toxicologic cause very unlikely. -Keppra level has been stable and level has been within therapeutic range - Vascular dementia or worsening CVA- Continue Plavix add ASA continue CVD medications - No recent trauma - Add on Thiamine as nutritional intake appears to be lacking in labs as well as exam. - EEG on last hospitalization with no seizure activity but slowing consistent with dementia. -Appreciate input from Nephro and Moshe. - repeat MRI showed: Findings suggestive of a subacute on chronic right occipital lobe infarct. Slight increase in extent of infarct since MRI of October 02, 2020. No significant mass effect. No hemorrhage. -It appears patient has been continuing to steadily decline over course of past few days. -Especially given his strokes and progressive dementia. -will continue to monitor patient. -Appreciate input from palliative care. (2) Pneumonia: Patient recently hospitalized and at [facility]. - New infiltrate on left lung - WBC at 10 with NLR 4.5:1 - Cough periodically unable to assess sputum - scattered crackles on exam - small pleural effusion- follow. - Lactate improved - Supportive care -continue antibiotics for aspiration (3) Dementia: Patient with multiple CVAs - continue supportive medications as below in CVA. - Re-orient patient - sleep hygiene at night (4) Stroke: Chornic multiple CVA - Plavix 75 mg will add asprin on to EMD and daily - Patient is on optimum therapy for his disease process and lipids look well (5) Aphasia: Expressive, no change (6) ESRD on dialysis: Nephrology consulted for inpatient dialysis as needed. - ABX renal dosed, pharmacy consulted as well for assistance - avoid further nephrotoxic medications - Continue calcitriol and nephrocaps - renal diet (7) CAD (coronary artery disease): Cont statin Cont plavix Add asa in light of chronic stroke ECG daily trend troponin with slight elevation and non-specific st changes support hemodynamics and oxygen delivery (8) Hypertension: Support hemodynamics- Map >65 <110 - do not feel this is acute CVA (9) Chronic systolic CHF (congestive heart failure): No acute needs, chronic heart failure likely ischemic in nature - Continue optimization of medications as for CVA. - no additional needs. (10) Hypercholesteremia: At goal per last admission continue statin (11) Macrocytic anemia: Add on b12 and folate for labs. 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 Treat if >200 - Concern for hypoglycemia on last weeks admission as well. (13) VTE (venous thromboembolism): Admission and Anticipated Discharge Date Admission Date: October 11, 2020 Subjective Patient is a poor historian, however he reports no new complaints at this time. He thinks he is in [facility]. Review of Systems Review of Systems: All systems reviewed & are unremarkable except as noted in HPI & below Physical Exam Physical Exam: Constitutional: WD/WN, vitals as above Eyes: normal visual prieto by confrontation and + anicteric sclerae Neck: normal visual inspection and trachea midline Respiratory: normal respiratory effort, lungs clear to auscultation Cardiovascular: Rate/Rhythm: regular rate and regular rhythm Gastrointestinal (Abdomen): Inspection/Auscultation: abdomen not distended Percussion/Palpation: abdomen soft; abdomen nontender Musculoskeletal: Head/Neck/Chest: normocephalic and head atraumatic Neg for peripheral LE edema, + pedal pulses Skin: no rashes, warm and dry Neurologic: awake; Speech / Cognition: normal speech Psychiatric: Orientation: alert Results & Data Results & Data ([facility]) Vital Signs (Past 12 Hours) Vital Signs Temp Pulse Pulse Resp BP Pulse Ox Pulse Ox 10/13/20 15:29 84 97 10/13/20 15:06 37.3 C 83 18 109/70 92 10/13/20 14:00 72 10/13/20 08:10 89 10/13/20 08:00 36.8 C 91 H 20 132/81 100 PG Care Time/CCT Total # of Minutes Spent Total Time Spent with Patient: Total time spent is greater than 50% in coordination of care (as documented) at patient's floor/unit and/or counseling patient: Coding Level of Care Code 58586 Subseq Hosp Care Lvl 3 Diagnoses Altered mental state R41.0 Altered mental status type: delirium Pneumonia J18.9 Pneumonia type: due to unspecified organism Laterality: unspecified laterality Lung location: unspecified part of lung Dementia F03.90 Dementia type: vascular dementia Stroke I63.9 Laterality of affected vessel: unspecified Aphasia R47.01 ESRD on dialysis N18.6; Z99.2 CAD (coronary artery disease) I25.10 Coronary Disease-Associated Artery/Lesion type: [place] artery [place] vs. 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 E11.319 Diabetes mellitus care home insulin use: without termination clerk use Diabetes mellitus complication detail: with diabetic retinopathy Diabetic retinopathy severity: with unspecified retinopathy severity Diabetes mellitus macular edema: macular edema presence unspecified Laterality: unspecified laterality VTE (venous thromboembolism) I82.90 Time Spent (min) 35 (1) Altered mental state Altered mental status type: delirium Qualified Code(s): R41.0 - Disorientation, unspecified (2) Pneumonia Pneumonia type: due to unspecified organism Laterality: unspecified laterality Lung location: unspecified part of lung Qualified Code(s): J18.9 - Pneumonia, unspecified organism (3) Dementia Dementia type: vascular dementia (4) Stroke Laterality of affected vessel: unspecified (5) CAD (coronary artery disease) Coronary Disease-Associated Artery/Lesion type: [place] artery [place] vs. 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
[2020-10-13] MEDS: FAMOTIDINE 10 MG TABLET PO SCH (20:22)
[2020-10-13] MEDS: CITALOPRAM 20 MG TAB PO SCH (20:23)
[2020-10-13] MEDS: ATORVASTATIN 40 MG TAB PO SCH (20:23)
[2020-10-13] MEDS: amLODIPine BESYLATE 5 MG TAB PO SCH (20:24)
[2020-10-14 06:53] LABS: BUN Creatinine Ratio 11.6 (10-20); Calcium 8.2 mg/dl (8.5-10.1); Creatinine Clr Calc Pharmacy 14.2 ml/min; Est GFR (African American) 18.6; Potassium 3.9 mmol/L (3.5-5.1)
[2020-10-14] MEDS: POLYETHYLENE (MIRALAX) 17 GM PACK PO SCH (08:13)
[2020-10-14] MEDS: DOCUSATE SODIUM 100 MG CAP PO SCH (08:13)
[2020-10-14] MEDS: NEPHROCAPS PO SCH (08:13)
[2020-10-14] MEDS: CALCITRIOL 0.25 MCG CAPSULE PO SCH (08:14)
[2020-10-14] MEDS: ASPIRIN 81 MG ECTAB PO SCH (08:14)
[2020-10-14] MEDS: CLOPIDOGREL BISULFATE 75 MG TAB PO SCH (08:14)
[2020-10-14] MEDS: THIAMINE HCL 100 MG TAB PO SCH (08:14)
[2020-10-14] MEDS: levETIRAcetam 500 MG TAB PO SCH (08:15)
[2020-10-14] MEDS: ISOSORBIDE MONO EXTENDED REL 30 MG TABCR PO SCH (08:15)
[2020-10-14] MEDS: HEPARIN SOD 5,000 UNIT/0.5 ML VIAL SQ SCH ×2 (08:16→20:37)
[2020-10-14] MEDS: PIPERACILLIN/TAZOBACTAM 3.375 GM in DEXTROSE 5% 100 ML IV SCH ×2 (08:16→20:33)
--- NOTE | 2020-10-14 10:09 | Nephrology Progress Note ---
Date of Service October 14, 2020 Assessment & Plan (1) ESRD on dialysis: HD MWF. Orders for HD entered into EMR and reviewed with nurse. UF goal 1.5-2 L today. Qb adequate via TDC. Clearances have been acceptable. Rx 3 hours, 3 K. (2) Macrocytic anemia: Chronic, stable. Maintained on Venofer 100 mg QHD and Micera as outpatient. (3) Altered mental state: Improvement noted since admission. Miguel has had progressive decline with underlying dementia over the past several months. Neurology consultation very helpful in documenting current status and management. Medical therapy for dementia not recommended. MRI demonstrates subacute on chronic right occipital lobe infarct slightly increased in size since October 02, 2020. Chronic changes also noted. It is increasingly difficult to discuss goals of care with Miguel directly and his family is struggling due to inability to physically see him. Palliative care consultation appreciated. (4) Pneumonia: Remains on Zosyn and levo. Clinically improved. Aspiration evaluation completed. (5) Dementia: As above Admission and Anticipated Discharge Date Admission Date: October 11, 2020 Subjective No acute events overnight. Miguel was seen and evaluated prior to and during hemodialysis. No fevers or chills. Denies shortness of breath. No pain. Review of Systems Review of Systems: All systems reviewed & are unremarkable except as noted in HPI & below (limited due to dementia and aphasia but Miguel denied any complaints or concerns. ) Physical Exam Constitutional: well developed, + thin and + frail appearing; no acute distress Eyes: + anicteric sclerae and PERRL ENMT: Mouth: no oral mucosal abnormality and oral mucous membranes not dry Neck: normal visual inspection and trachea midline R IJ TDC Respiratory: normal respiratory effort Auscultation: lungs clear to auscultation bilaterally Cardiovascular: Rate/Rhythm: regular rate Heart Sounds: normal S1 and normal S2 Extremities: + edema and + AV fistula Gastrointestinal (Abdomen): Percussion/Palpation: abdomen soft; abdomen nontender Musculoskeletal: Extremities: no cyanosis and no clubbing Skin: normal turgor; no lesions Neurologic: Motor/Sensory: no tremor and no asterixis Psychiatric: Orientation: alert and cooperative Results & Data ([facility]) Vital Signs (Past 12 Hours) Vital Signs Temp Pulse Pulse Resp BP Pulse Ox 10/14/20 09:44 37.1 C 85 10/14/20 07:46 60 10/14/20 07:30 37.1 C 90 18 150/90 H 98 10/14/20 04:13 36.6 C 81 20 150/81 H 97 10/13/20 23:10 36.5 C 79 20 137/82 95 Laboratory Results Laboratory Results - last 24 hr 10/13/20 10/14/20 18:35 05:43 Sodium 136 Potassium 3.9 Chloride 102 Carbon Dioxide 27 Anion Gap 7.0 BUN 41 H D Creatinine 3.52 H D Est Cr Clr Drug Dosing 14.2 Est GFR ( Amer) 18.6 Est GFR (Non-Af Amer) 16.0 BUN/Creatinine Ratio 11.6 Glucose 102 H Calcium 8.2 L Stl C. diff Tox B Gene Negative Cdiff Gene PG Care Time/CCT Total # of Minutes Spent Total Time Spent with Patient: Total time spent is greater than 50% in coordination of care (as documented) at patient's floor/unit and/or counseling patient: Coding Level of Care Code 03174 Subseq Hosp Care Lvl 3 Diagnoses ESRD on dialysis N18.6; Z99.2 Macrocytic anemia D53.9 Altered mental state R41.0 Altered mental status type: delirium Pneumonia J18.9 Pneumonia type: due to unspecified organism Laterality: unspecified laterality Lung location: unspecified part of lung Dementia F03.90 Dementia type: vascular dementia (1) Altered mental state Altered mental status type: delirium Qualified Code(s): R41.0 - Disorientation, unspecified (2) Pneumonia Pneumonia type: due to unspecified organism Laterality: unspecified laterality Lung location: unspecified part of lung Qualified Code(s): J18.9 - Pneumonia, unspecified organism (3) Dementia Dementia type: vascular dementia
[2020-10-14] MEDS: ATORVASTATIN 40 MG TAB PO SCH (20:36)
[2020-10-14] MEDS: CITALOPRAM 20 MG TAB PO SCH (20:36)
[2020-10-14] MEDS: amLODIPine BESYLATE 5 MG TAB PO SCH (20:36)
--- NOTE | 2020-10-14 21:16 | Hospitalist Progress Note ---
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 Patient is more lethargic than baseline. - Appears back to baseline -Patient has progressive vascular dementia, and will likely continue to progress. He has required multiple hospitals stays in the past few months. -Patient now appears to have a pneumonia from possible aspiration. Patient will likely continue to decompensate over time. -His is leaning towards hospice but will like to discus with Dr. Maxwell further. -Keppra level has been stable and level has been within therapeutic range - Vascular dementia or worsening CVA- Continue Plavix add ASA continue CVD medications - No recent trauma - Add on Thiamine as nutritional intake appears to be lacking in labs as well as exam. - EEG on last hospitalization with no seizure activity but slowing consistent with dementia. -will continue on HD for now and monitor. (2) Pneumonia: Patient recently hospitalized and at long-term care facility. - New infiltrate on left lung - WBC at 10 with NLR 4.5:1 - Cough periodically unable to assess sputum - scattered crackles on exam - small pleural effusion- follow. - Lactate improved - Supportive care -continue antibiotics for aspiration (3) Dementia: Patient with multiple CVAs - continue supportive medications as below in CVA. - Re-orient patient - sleep hygiene at night (4) Stroke: Chornic multiple CVA - Plavix 75 mg will add asprin on to EMD and daily - Patient is on optimum therapy for his disease process and lipids look well (5) Aphasia: Expressive, no change (6) ESRD on dialysis: Nephrology consulted for inpatient dialysis as needed. - ABX renal dosed, pharmacy consulted as well for assistance - avoid further nephrotoxic medications - Continue calcitriol and nephrocaps - renal diet (7) CAD (coronary artery disease): Cont statin Cont plavix Add asa in light of chronic stroke ECG daily trend troponin with slight elevation and non-specific st changes support hemodynamics and oxygen delivery (8) Hypertension: Support hemodynamics- Map >65 <110 - do not feel this is acute CVA (9) Chronic systolic CHF (congestive heart failure): No acute needs, chronic heart failure likely ischemic in nature - Continue optimization of medications as for CVA. - no additional needs. (10) Hypercholesteremia: At goal per last admission continue statin (11) Macrocytic anemia: Add on b12 and folate for labs. 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 Treat if >200 - Concern for hypoglycemia on last weeks admission as well. (13) VTE (venous thromboembolism): Admission and Anticipated Discharge Date Admission Date: October 11, 2020 Subjective Patient appears comfortable. No new complaints. D/W , informed her of his prognosis, and how he is not improving. Mentioned Hospice, she prefers home hospice as she has not been able to visit him. Concern over how she will manage this. Review of Systems Review of Systems: Unobtainable due to cognitive status Physical Exam Physical Exam: Constitutional: WD/WN, vitals as above Eyes: normal visual prieto by confrontation and + anicteric sclerae Neck: normal visual inspection and trachea midline Respiratory: normal respiratory effort, lungs clear to auscultation Cardiovascular: Rate/Rhythm: regular rate and regular rhythm Gastrointestinal (Abdomen): Inspection/Auscultation: abdomen not distended Percussion/Palpation: abdomen soft; abdomen nontender Musculoskeletal: Head/Neck/Chest: normocephalic and head atraumatic Neg for peripheral LE edema, + pedal pulses Skin: no rashes, warm and dry Neurologic: awake; Speech / Cognition: normal speech Psychiatric: Orientation: alert Results & Data Results & Data ([facility]) Vital Signs (Past 12 Hours) Vital Signs Temp Pulse Pulse Resp BP BP Pulse Ox 10/14/20 18:42 36.8 C 87 126/85 91 10/14/20 17:29 89 10/14/20 15:20 36.4 C L 77 18 103/59 L 98 10/14/20 15:19 36.6 C 68 18 143/87 H 97 10/14/20 12:29 37.5 C 6 L 136/78 10/14/20 12:00 98 H 142/80 H 10/14/20 11:40 92 H 145/73 H 10/14/20 11:20 101 H 138/86 10/14/20 11:00 95 H 131/87 10/14/20 10:40 90 119/74 10/14/20 10:20 67 136/77 10/14/20 10:00 54 L 113/60 10/14/20 09:44 37.1 C 85 10/14/20 09:40 70 116/71 10/14/20 09:20 83 131/81 PG Care Time/CCT Total # of Minutes Spent Total Time Spent with Patient: Total time spent is greater than 50% in coordination of care (as documented) at patient's floor/unit and/or counseling patient: Coding Level of Care Code 06330 Subseq Hosp Care Lvl 3 Diagnoses Altered mental state R41.0 Altered mental status type: delirium Pneumonia J18.9 Laterality: unspecified laterality Lung location: unspecified part of lung Pneumonia type: due to unspecified organism Dementia F03.90 Dementia type: vascular dementia Stroke I63.9 Laterality of affected vessel: unspecified Aphasia R47.01 ESRD on dialysis N18.6; Z99.2 CAD (coronary artery disease) I25.10 Associated angina: without angina Coronary Disease-Associated Artery/Lesion type: [place] artery [place] vs. 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 Diabetes mellitus complication detail: with diabetic retinopathy Diabetes mellitus long-term insulin use: without long-term use Diabetes mellitus macular edema: macular edema presence unspecified Diabetic retinopathy severity: with unspecified retinopathy severity Laterality: unspecified laterality Qualified Code(s): E11.319 - Type 2 diabetes mellitus with unspecified diabetic retinopathy without macular edema (5) Pneumonia Laterality: unspecified laterality Lung location: unspecified part of lung Pneumonia type: due to unspecified organism Qualified Code(s): J18.9 - Pneumonia, unspecified organism (6) Stroke Laterality of affected vessel: unspecified
[2020-10-14] MEDS: FAMOTIDINE 10 MG TABLET PO SCH (21:30)
[2020-10-15] MEDS: DOCUSATE SODIUM 100 MG CAP PO SCH (08:06)
[2020-10-15] MEDS: PIPERACILLIN/TAZOBACTAM 3.375 GM in DEXTROSE 5% 100 ML IV SCH ×2 (08:06→21:20)
[2020-10-15] MEDS: ASPIRIN 81 MG ECTAB PO SCH (08:11)
[2020-10-15] MEDS: POLYETHYLENE (MIRALAX) 17 GM PACK PO SCH (08:11)
[2020-10-15] MEDS: NEPHROCAPS PO SCH (08:11)
[2020-10-15] MEDS: HEPARIN SOD 5,000 UNIT/0.5 ML VIAL SQ SCH ×2 (08:11→21:26)
[2020-10-15] MEDS: CLOPIDOGREL BISULFATE 75 MG TAB PO SCH (08:11)
[2020-10-15] MEDS: ISOSORBIDE MONO EXTENDED REL 30 MG TABCR PO SCH (08:11)
[2020-10-15] MEDS: THIAMINE HCL 100 MG TAB PO SCH (08:11)
--- NOTE | 2020-10-15 09:59 | Nephrology Progress Note ---
Date of Service October 15, 2020 Assessment & Plan (1) ESRD on dialysis: * Volume status and electrolyte balance are acceptable. No acute indication for HD today * Recheck PRP in am * Outpatient HD at [facility] - 3 hr, 2K 2Ca F-180NR EDW 56kg (2) Macrocytic anemia: * Chronic, stable. Maintained on Venofer 100 mg QHD and Micera as outpatient. (3) Altered mental state: * Progressive decline with underlying dementia over the past several months. This is the 3rd hospitalization in last 6 weeks. Neurology consultation did not recommend medical therapy for dementia. MRI demonstrated subacute on chronic right occipital lobe infarct slightly increased in size since October 02, 2020 * It is increasingly difficult to discuss goals of care with Miguel directly and his family is struggling due to inability to physically see him. Palliative care consultation appreciated. Prognosis is guarded (4) Pneumonia: * Remains on Zosyn and levo. Clinically improved. * Swallowing study completed. Speech therapy advised minced/moist diet with aspiration precautions Admission and Anticipated Discharge Date Admission Date: October 11, 2020 Subjective Mr. Mata was seen & examined in his hospital room this morning. He awoke to tactile stimulus but was nonverbal. He was in no distress. Review of Systems Review of Systems: Unobtainable due to cognitive status Physical Exam Constitutional: + lethargic; not in distress Eyes: PERRL, conjunctivae normal, anicteric sclerae Neck: R IJ THC with clean dry dressing in place Respiratory: Auscultation: lungs clear to auscultation bilaterally Cardiovascular: Rate/Rhythm: regular rate and regular rhythm Extremities: + AV fistula (+ bruit) Gastrointestinal (Abdomen): normal bowel sounds, soft, nontender, no hepatosplenomegaly Skin: no rashes, warm and dry Results & Data ([facility]) Vital Signs (Past 12 Hours) Vital Signs Temp Pulse Pulse Pulse Resp BP Pulse Ox 10/15/20 07:23 36.6 C 72 83 20 145/81 H 91 10/15/20 03:24 37 C 79 18 148/89 H 96 10/14/20 23:07 37.1 C 83 18 155/93 H 95 Laboratory Tests 10/13/20 10/14/20 06:40 05:43 WBC 7.54 Hgb 11.0 L Hct 35.6 L Plt Count 315 Sodium 136 Potassium 3.9 Chloride 102 Carbon Dioxide 27 BUN 41 H D Creatinine 3.52 H D Glucose 102 H Calcium 8.2 L PG Care Time/CCT Total # of Minutes Spent Total Time Spent with Patient: Total time spent is greater than 50% in coordination of care (as documented) at patient's floor/unit and/or counseling patient: Coding Level of Care Code 90946 Subseq Hosp Care Lvl 3 Diagnoses ESRD on dialysis N18.6; Z99.2 Macrocytic anemia D53.9 Altered mental state R41.0 Altered mental status type: delirium Pneumonia J18.9 Pneumonia type: due to unspecified organism Laterality: unspecified laterality Lung location: unspecified part of lung (1) Altered mental state Altered mental status type: delirium Qualified Code(s): R41.0 - Disorientation, unspecified (2) Pneumonia Pneumonia type: due to unspecified organism Laterality: unspecified laterality Lung location: unspecified part of lung Qualified Code(s): J18.9 - Pneumonia, unspecified organism
[2020-10-15] MEDS: levoFLOXacin 500 MG TAB PO SCH (12:19)
--- NOTE | 2020-10-15 20:04 | Hospitalist Progress Note ---
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 Patient is more lethargic than baseline. - Appears back to baseline -Patient has progressive vascular dementia, and will likely continue to progress. He has required multiple hospitals stays in the past few months. -Patient now appears to have a pneumonia from possible aspiration. Patient will likely continue to decompensate over time. -His is leaning towards hospice but will like to discus with Dr. Maxwell further. Plan is to discharge back to SNF and will have discussion with Dr. Maxwell s ometime next week. -Keppra level has been stable and level has been within therapeutic range - Vascular dementia or worsening CVA- Continue Plavix add ASA continue CVD medications - No recent trauma - Add on Thiamine as nutritional intake appears to be lacking in labs as well as exam. - EEG on last hospitalization with no seizure activity but slowing consistent with dementia. -will continue on HD for now and monitor. (2) Pneumonia: Patient recently hospitalized [facility]. possible aspiration pneumonia - New infiltrate on left lung - WBC at 10 with NLR 4.5:1 - Cough periodically unable to assess sputum - scattered crackles on exam - small pleural effusion- follow. - Lactate improved - Supportive care -continue antibiotics for aspiration (3) Dementia: Patient with multiple CVAs - continue supportive medications as below in CVA. - Re-orient patient - sleep hygiene at night (4) Stroke: Chornic multiple CVA - Plavix 75 mg will add asprin on to EMD and daily - Patient is on optimum therapy for his disease process and lipids look well (5) Aphasia: Expressive, no change (6) ESRD on dialysis: Nephrology consulted for inpatient dialysis as needed. - ABX renal dosed, pharmacy consulted as well for assistance - avoid further nephrotoxic medications - Continue calcitriol and nephrocaps - renal diet (7) CAD (coronary artery disease): Cont statin Cont plavix Add asa in light of chronic stroke ECG daily trend troponin with slight elevation and non-specific st changes support hemodynamics and oxygen delivery (8) Hypertension: Support hemodynamics- Map >65 <110 - do not feel this is acute CVA (9) Chronic systolic CHF (congestive heart failure): No acute needs, chronic heart failure likely ischemic in nature - Continue optimization of medications as for CVA. - no additional needs. (10) Hypercholesteremia: At goal per last admission continue statin (11) Macrocytic anemia: Add on b12 and folate for labs. 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 Treat if >200 - Concern for hypoglycemia on last weeks admission as well. (13) VTE (venous thromboembolism): (14) Pressure ulcer: Pressure ulcer of sacral region, stage 3, POA evolving deep tissue injury R heel, POA (15) Demand ischemia: Admission and Anticipated Discharge Date Admission Date: October 11, 2020 Subjective Patient is resting comfortably. Had extensive discussion with , who at this time is thinking about hospice. However she would like to have more time to make a final decision. She would want the patient to return to [facility] and discuss with Dr. Maxwell the next step as an outpatient. Review of Systems Review of Systems: All systems reviewed & are unremarkable except as noted in HPI & below Physical Exam Physical Exam: Constitutional: WD/WN, vitals as above Eyes: normal visual prieto by confrontation and + anicteric sclerae Neck: normal visual inspection and trachea midline Respiratory: normal respiratory effort, lungs clear to auscultation Cardiovascular: Rate/Rhythm: regular rate and regular rhythm Gastrointestinal (Abdomen): Inspection/Auscultation: abdomen not distended Percussion/Palpation: abdomen soft; abdomen nontender Musculoskeletal: Head/Neck/Chest: normocephalic and head atraumatic Neg for peripheral LE edema, + pedal pulses Skin: no rashes, warm and dry Neurologic: awake; Speech / Cognition: normal speech Psychiatric: Orientation: alert Results & Data Results & Data ([facility]) Vital Signs (Past 12 Hours) Vital Signs Temp Pulse Pulse Pulse Resp BP Pulse Ox 10/15/20 19:26 36.5 C 67 16 124/74 98 10/15/20 15:23 61 10/15/20 15:04 36.3 C L 63 20 163/61 H 94 10/15/20 11:51 36.5 C 98 H 20 121/83 100 PG Care Time/CCT Total # of Minutes Spent Total Time Spent with Patient: Total time spent is greater than 50% in coordination of care (as documented) at patient's floor/unit and/or counseling patient: Coding Level of Care Code 84980 Subseq Hosp Care Lvl 3 Diagnoses Altered mental state R41.0 Altered mental status type: delirium Pneumonia J18.9 Laterality: unspecified laterality Lung location: unspecified part of lung Pneumonia type: due to unspecified organism Dementia F03.90 Dementia type: vascular dementia Stroke I63.9 Laterality of affected vessel: unspecified Aphasia R47.01 ESRD on dialysis N18.6; Z99.2 CAD (coronary artery disease) I25.10 Associated angina: without angina Coronary Disease-Associated Artery/Lesion type: [place] artery [place] vs. 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 Diabetes mellitus complication detail: with diabetic retinopathy Diabetes mellitus custodial insulin use: without custodial use Diabetes mellitus macular edema: macular edema presence unspecified Diabetic retinopathy severity: with unspecified retinopathy severity Laterality: unspecified laterality Qualified Code(s): E11.319 - Type 2 diabetes mellitus with unspecified diabetic retinopathy without macular edema (5) Pneumonia Laterality: unspecified laterality Lung location: unspecified part of lung Pneumonia type: due to unspecified organism Qualified Code(s): J18.9 - Pneumonia, unspecified organism (6) Stroke Laterality of affected vessel: unspecified
[2020-10-15] MEDS: CITALOPRAM 20 MG TAB PO SCH (21:24)
[2020-10-15] MEDS: amLODIPine BESYLATE 5 MG TAB PO SCH (21:26)
[2020-10-15] MEDS: ATORVASTATIN 40 MG TAB PO SCH (21:27)
[2020-10-15] MEDS: FAMOTIDINE 10 MG TABLET PO SCH (21:28)
[2020-10-16] MEDS: POLYETHYLENE (MIRALAX) 17 GM PACK PO SCH (07:18)
[2020-10-16] MEDS: DOCUSATE SODIUM 100 MG CAP PO SCH (07:18)
[2020-10-16 07:22] LABS: BUN Creatinine Ratio 13.9 (10-20); Creatinine Clr Calc Pharmacy 13.4 ml/min; Est GFR (African American) 19.3; Est GFR (Non-African American) 16.7; Potassium 4.5 mmol/L (3.5-5.1)
[2020-10-16] MEDS: PIPERACILLIN/TAZOBACTAM 3.375 GM in DEXTROSE 5% 100 ML IV SCH ×2 (08:20→20:04)
[2020-10-16] MEDS: ISOSORBIDE MONO EXTENDED REL 30 MG TABCR PO SCH (08:22)
[2020-10-16] MEDS: ASPIRIN 81 MG ECTAB PO SCH (08:22)
[2020-10-16] MEDS: CLOPIDOGREL BISULFATE 75 MG TAB PO SCH (08:22)
[2020-10-16] MEDS: HEPARIN SOD 5,000 UNIT/0.5 ML VIAL SQ SCH ×2 (08:22→20:09)
[2020-10-16] MEDS: levETIRAcetam 500 MG TAB PO SCH (08:22)
[2020-10-16] MEDS: THIAMINE HCL 100 MG TAB PO SCH (08:22)
[2020-10-16] MEDS: NEPHROCAPS PO SCH (08:22)
--- NOTE | 2020-10-16 09:29 | Nephrology Progress Note ---
Date of Service October 16, 2020 Assessment & Plan (1) ESRD on dialysis: * Volume status and electrolyte balance are acceptable. No acute indication for HD today * Will schedule next HD for am. Orders have been placed in EMR and HD RN notified * Recheck PRP in am * Outpatient HD at [facility] - 3 hr, 2K 2Ca F-180NR EDW 56kg (2) Macrocytic anemia: * Chronic, stable. Maintained on Venofer 100 mg QHD and Micera as outpatient. (3) Altered mental state: * Progressive decline with underlying dementia over the past several months. This is the 3rd hospitalization in last 6 weeks. Neurology consultation did not recommend medical therapy for dementia. MRI demonstrated subacute on chronic right occipital lobe infarct slightly increased in size since October 02, 2020 * It is increasingly difficult to discuss goals of care with Miguel directly and his family is struggling due to inability to physically see him. Palliative care consultation appreciated. Prognosis is guarded (4) Pneumonia: * Remains on Zosyn and levo. Clinically improved. * Swallowing study completed. Speech therapy advised minced/moist diet with aspiration precautions Admission and Anticipated Discharge Date Admission Date: October 11, 2020 Subjective Mr. Mata was seen & examined in his hospital room this morning. He awakens to voice but is nonverbal and does not follow commands. He is in NAD. Review of Systems Review of Systems: Unobtainable due to cognitive status Physical Exam Constitutional: + lethargic; not in distress Eyes: PERRL, conjunctivae normal, anicteric sclerae Respiratory: Auscultation: lungs clear to auscultation bilaterally Cardiovascular: Rate/Rhythm: regular rate and regular rhythm Extremities: + AV fistula (+ bruit) Gastrointestinal (Abdomen): normal bowel sounds, soft, nontender, no hepatosplenomegaly Skin: no rashes, warm and dry Results & Data ([facility]) Vital Signs (Past 12 Hours) Vital Signs Temp Pulse Pulse Pulse Resp BP Pulse Ox 10/16/20 07:46 36.7 C 90 18 128/78 97 10/16/20 07:19 90 10/16/20 04:00 36.5 C 88 18 126/78 95 10/16/20 01:23 64 10/16/20 00:00 36.7 C 87 18 138/81 92 Laboratory Tests 10/16/20 05:28 Sodium 137 Potassium 4.5 D Chloride 102 Carbon Dioxide 26 BUN 47 H Creatinine 3.40 H Glucose 101 H Calcium 9.0 PG Care Time/CCT Total # of Minutes Spent Total Time Spent with Patient: Total time spent is greater than 50% in coordination of care (as documented) at patient's floor/unit and/or counseling patient: Coding Level of Care Code 80530 Subseq Hosp Care Lvl 3 Diagnoses ESRD on dialysis N18.6; Z99.2 Macrocytic anemia D53.9 Altered mental state R41.0 Altered mental status type: delirium Pneumonia J18.9 Pneumonia type: due to unspecified organism Laterality: unspecified laterality Lung location: unspecified part of lung (1) Altered mental state Altered mental status type: delirium Qualified Code(s): R41.0 - Disorientatio n, unspecified (2) Pneumonia Pneumonia type: due to unspecified organism Laterality: unspecified laterality Lung location: unspecified part of lung Qualified Code(s): J18.9 - Pneumonia, unspecified organism
[2020-10-16] MEDS: CITALOPRAM 20 MG TAB PO SCH (20:08)
[2020-10-16] MEDS: ATORVASTATIN 40 MG TAB PO SCH (20:10)
[2020-10-16] MEDS: FAMOTIDINE 10 MG TABLET PO SCH (20:11)
[2020-10-16] MEDS: amLODIPine BESYLATE 5 MG TAB PO SCH (20:11)
--- NOTE | 2020-10-16 20:18 | Hospitalist Progress Note ---
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 Patient was more lethargic than baseline on admission. - Appears back to baseline -Patient has progressive vascular dementia, and will likely continue to progress. He has required multiple hospitals stays in the past few months. -Patient now appears to have a pneumonia from possible aspiration. Patient will likely continue to decompensate over time as stated above.. -His is leaning towards hospice but will like to discus with Dr. Maxwell further. Plan is to discharge back to SNF and will have discussion with Dr. Maxwell sometime next week. -Keppra level has been stable and level has been within therapeutic range - Vascular dementia or worsening CVA- Continue Plavix add ASA continue CVD m edications - No recent trauma - Add on Thiamine as nutritional intake appears to be lacking in labs as well as exam. - EEG on last hospitalization with no seizure activity but slowing consistent with dementia. -will continue on HD for now and monitor. Likely can discharge back to SNF on Saturday. Case management is working on this. (2) Pneumonia: Patient [facility]. possible aspiration pneumonia - New infiltrate on left lung - WBC at 10 with NLR 4.5:1 - Cough periodically unable to assess sputum - scattered crackles on exam - small pleural effusion- follow. - Lactate improved - Supportive care -continue antibiotics for aspiration (3) Dementia: Patient with multiple CVAs - continue supportive medications as below in CVA. - Re-orient patient - sleep hygiene at night (4) Stroke: [place] multiple CVA - Plavix 75 mg will add asprin on to EMD and daily - Patient is on optimum therapy for his disease process and lipids look well (5) Aphasia: Expressive, no change (6) ESRD on dialysis: Nephrology consulted for inpatient dialysis as needed. - ABX renal dosed, pharmacy consulted as well for assistance - avoid further nephrotoxic medications - Continue calcitriol and nephrocaps - renal diet (7) CAD (coronary artery disease): Cont statin Cont plavix Add asa in light of chronic stroke ECG daily trend troponin with slight elevation and non-specific st changes support hemodynamics and oxygen delivery (8) Hypertension: Support hemodynamics- Map >65 <110 - do not feel this is acute CVA (9) Chronic systolic CHF (congestive heart failure): No acute needs, chronic heart failure likely ischemic in nature - Continue optimization of medications as for CVA. - no additional needs. (10) Hypercholesteremia: At goal per last admission continue statin (11) Macrocytic anemia: Add on b12 and folate for labs. 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 Treat if >200 - Concern for hypoglycemia on last weeks admission as well. (13) VTE (venous thromboembolism): (14) Pressure ulcer: Pressure ulcer of sacral region, stage 3, POA evolving deep tissue injury R heel, POA (15) Demand ischemia: Admission and Anticipated Discharge Date Admission Date: October 11, 2020 Subjective Patient is non verbal. He does not appear to be in.any distress. Review of Systems Review of Systems: All systems reviewed & are unremarkable except as noted in HPI & below Physical Exam Physical Exam: Constitutional: WD/WN, vitals as above Eyes: normal visual prieto by confrontation and + anicteric sclerae Neck: normal visual inspection and trachea midline Respiratory: normal respiratory effort, lungs clear to auscultation Cardiovascular: Rate/Rhythm: regular rate and regular rhythm Gastrointestinal (Abdomen): Inspection/Auscultation: abdomen not distended Percussion/Palpation: abdomen soft; abdomen nontender Musculoskeletal: Head/Neck/Chest: normocephalic and head atraumatic Neg for peripheral LE edema, + pedal pulses Skin: no rashes, warm and dry Neurologic: awake; Speech / Cognition: normal speech Psychiatric: Orientation: alert Results & Data Results & Data ([facility]) Vital Signs (Past 12 Hours) Vital Signs Temp Pulse Pulse Resp BP Pulse Ox 10/16/20 19:19 36.8 C 75 18 108/58 L 95 10/16/20 15:43 75 10/16/20 15:32 36.6 C 77 20 123/73 98 10/16/20 11:38 36.4 C L 82 20 129/73 99 PG Care Time/CCT Total # of Minutes Spent Total Time Spent with Patient: Total time spent is greater than 50% in coordination of care (as documented) at patient's floor/unit and/or counseling patient: Coding Level of Care Code 83762 Subseq Hosp Care Lvl 2 Diagnoses Altered mental state R41.0 Altered mental status type: delirium Pneumonia J18.9 Laterality: unspecified laterality Lung location: unspecified part of lung Pneumonia type: due to unspecified organism Dementia F03.90 Dementia type: vascular dementia Stroke I63.9 Laterality of affected vessel: unspecified Aphasia R47.01 ESRD on dialysis N18.6; Z99.2 CAD (coronary artery disease) I25.10 Associated angina: without angina Coronary Disease-Associated Artery/Lesion type: [place] artery [place] vs. 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 Diabetes mellitus complication detail: with diabetic retinopathy Diabetes mellitus penitentiary insulin use: without penitentiary use Diabetes mellitus macular edema: macular edema presence unspecified Diabetic retinopathy severity: with unspecified retinopathy severity Laterality: unspecified laterality Qualified Code(s): E11.319 - Type 2 diabetes mellitus with unspecified diabetic retinopathy without macular edema (5) Pneumonia Laterality: unspecified laterality Lung location: unspecified part of lung Pneumonia type: due to unspecified organism Qualified Code(s): J18.9 - Pneumonia, unspecified organism (6) Stroke Laterality of affected vessel: unspecified
[2020-10-17 06:18] LABS: Hematocrit (blood only) 32.7 % (42-52); Hemoglobin 10.3 g/dL (14.0-18.0); Mean Corpuscular Hemoglobin 31.6 pg (25-34); Mean Corpuscular Hgb Conc 31.5 g/dL (32-36); Mean Corpuscular Volume 100.3 fL (80-100); Mean Platelet Volume 10.2 fL (7.4-10.4); Platelet Count 312 K/uL (130-400); RDW Coefficient of Variation 16.9 % (11.5-14.5); RDW Standard Deviation 61.6 fL (36.4-46.3); Red Blood Count 3.26 M/uL (4.7-6.1); White Blood Count 6.75 K/uL (4.8-10.8)
[2020-10-17 06:48] LABS: BUN Creatinine Ratio 14.6 (10-20); Calcium 9.1 mg/dl (8.5-10.1); Creatinine Clr Calc Pharmacy 10.6 ml/min; Est GFR (African American) 14.6; Est GFR (Non-African American) 12.6; Potassium 4.5 mmol/L (3.5-5.1)
[2020-10-17] MEDS ORDERED: SODIUM CHLORIDE 0.9% 1000ML 1,000 ML IV PRN (07:00)
[2020-10-17] MEDS ORDERED: HEPARIN SOD (PORCINE) 1000 UNIT/ML IV SCH (07:00)
[2020-10-17] MEDS ORDERED: HEPARIN SOD (PORCINE) 1000 UNIT/ML IV ONE (07:00)
[2020-10-17] MEDS: PIPERACILLIN/TAZOBACTAM 3.375 GM in DEXTROSE 5% 100 ML IV SCH ×2 (07:48→21:02)
[2020-10-17] MEDS: HEPARIN SOD 5,000 UNIT/0.5 ML VIAL SQ SCH ×2 (08:30→21:16)
--- NOTE | 2020-10-17 10:44 | Hospitalist Progress Note ---
Date of Service October 17, 2020 Assessment & Plan (1) Altered mental state: Miguel Mata is a 75 yo male with h/o severe vascular dementia and several previous CVAs, ESRD on hemodialysis, seizure disorder, CAD, chronic systolic CHF, HTN, T2DM and HLD who was admitted to [facility] on 10/11/2020 for the third time in 6 weeks, this time for acute encephalopathy. Acute on Chronic Encephalopathy - longstanding cerebrovascular disease as well as seizure disorder, more let hargic than baseline on admission, likely toxic encephalopathy 2/2 PNA --> continue Zosyn - appears back at baseline although has progressive vascular dementia and several recent hospitalizations - guarded prognosis - Neuro consulted - does not recommend meds for dementia - Palliative consulted - patient's currently wants him to be full code but is considering hospice - plan to d/c to SNF tomorrow Pneumonia - left lung infiltrate in context of recent hospitalization and coming from LTC facility - found to aspirate with full diet - ST consulted and now on - Leukocytosis resolved, afebrile, no cough/crackles on exam - continue Zosyn as stated above (today is day 7); plan to stop at discharge Vascular Dementia - 2/2 several previous CVAs, severely impaired at baseline; progressive - guarded prognosis - frequent orientation, encourage sleep hygiene H/o Multiple CVAs - continue Aspirin/Plavix - Neuro on board: does not recommend meds for dementia Seizure Disorder - EEG on last hospitalization with no seizure activity but slowing consistent with dementia - Keppra level has been stable and in therapeutic range, continue ESRD On Dialysis - Nephrology consulted for inpatient dialysis as needed. - abx renal dosed, pharmacy consulted as well for assistance - avoid further nephrotoxic medications - continue calcitriol and nephrocaps - renal diet CAD - Continue Plavix, ASA Chronic Systolic CHF - continue Imdur 30 mg PO daily T2DM - No medical management at this time, continue to track BG. 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 no meaningful HPI or ROS. getting HD when i see him. no problems per HD RN vitals noted nad heent nc at mmm breathing unlabored no accessory muscles good effort skin no rashes no pallor or icterus encephalopathy - acute on chronic. vascular dementia/progressive. supportive care. otherwise as above Subjective No acute events overnight. Going to HD today. The patient is severely speech/communication impaired 2/2 severe vascular dementia but was able to deny pain. Review of Systems Review of Systems: Unobtainable due to severe vascular dementia/inability to communicate Physical Exam 2 Constitutional: + ill appearing, + thin and + cachectic; no acute distress Respiratory: normal respiratory effort, lungs clear to auscultation Cardiovascular: RRR, no murmur, no edema Gastrointestinal (Abdomen): normal bowel sounds, soft, nontender, no hepa tosplenomegaly Skin: no rashes, warm and dry Neurologic: Speech / Cognition: + expressive aphasia Psychiatric: Orientation: + not alert and + not oriented x 3 Results & Data Results & Data ([facility]) Vital Signs (Past 12 Hours) Vital Signs Temp Pulse Pulse Pulse Resp BP Pulse Ox 10/17/20 08:30 68 10/17/20 07:18 36.9 C 80 16 137/75 99 10/17/20 04:25 36.8 C 90 18 119/76 94 10/16/20 22:57 36.6 C 96 H 20 121/84 94 Resident Activity Tracking Resident Involvement: Resident Care Provided Care Provided: Adult Hospital Medicine (1) CAD (coronary artery disease) Associated angina: without angina Coronary Disease-Associated Artery/Lesion type: [place] artery [place] vs. 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 Diabetes mellitus complication detail: with diabetic retinopathy Diabetes mellitus termite helper insulin use: without termite helper use Diabetes mellitus macular edema: macular edema presence unspecified Diabetic retinopathy severity: with unspecified retinopathy severity Laterality: unspecified laterality Qualified Code(s): E11.319 - Type 2 diabetes mellitus with unspecified diabetic retinopathy without macular edema (5) Pneumonia Laterality: unspecified laterality Lung location: unspecified part of lung Pneumonia type: due to unspecified organism Qualified Code(s): J18.9 - Pneumonia, unspecified organism (6) Stroke Laterality of affected vessel: unspecified
--- NOTE | 2020-10-17 11:23 | Nephrology Progress Note ---
Date of Service October 17, 2020 Assessment & Plan (1) ESRD on dialysis: * HD today. Orders have been placed in EMR and HD RN notified * Outpatient HD at [facility] - 3 hr, 2K 2Ca F-180NR EDW 56kg (2) Macrocytic anemia: * Chronic, stable. Maintained on Venofer 100 mg QHD and Micera as outpatient. (3) Altered mental state: * This is the 3rd hospitalization in last 6 weeks. Progressive decline with underlying dementia over the past several months. Neurology consultation did not recommend medical therapy for dementia. MRI demonstrated subacute on chronic right occipital lobe infarct slightly increased in size since October 02, 2020 * Unable to discuss goals of care with Miguel directly due to his impaired cognitive status. His family is struggling w/ the decision to continue/stop HD. Unfortunately they are not able to see him due to visitor restrictions from the COVID pandemic. Palliative care consultation appreciated. Prognosis is guarded (4) Pneumonia: * Remains on Zosyn. Clinically improved. * Swallowing study completed. Speech therapy advised minced/moist diet with aspiration precautions Admission and Anticipated Discharge Date Admission Date: October 11, 2020 Subjective Mr. Mata was seen & examined in his hospital room this morning. He was being prepared for HD. Mr. Mata awakens to voice but is nonverbal and does not follow commands. He is in NAD. Review of Systems Review of Systems: Unobtainable due to cognitive status Physical Exam Constitutional: + lethargic; not in distress Eyes: PERRL, conjunctivae normal, anicteric sclerae Respiratory: Auscultation: lungs clear to auscultation bilaterally Cardiovascular: Rate/Rhythm: regular rate and regular rhythm Extremities: + AV fistula (+ bruit) Gastrointestinal (Abdomen): normal bowel sounds, soft, nontender, no hepatosplenomegaly Skin: no rashes, warm and dry Results & Data ([facility]) Vital Signs (Past 12 Hours) Vital Signs Temp Pulse Pulse Pulse Resp BP BP 10/17/20 10:00 88 120/72 10/17/20 09:40 86 136/72 10/17/20 09:20 76 139/61 10/17/20 09:07 36.9 C 77 10/17/20 08:30 68 10/17/20 07:18 36.9 C 80 16 137/75 10/17/20 04:25 36.8 C 90 18 119/76 Pulse Ox 10/17/20 10:00 10/17/20 09:40 10/17/20 09:20 10/17/20 09:07 10/17/20 08:30 10/17/20 07:18 99 10/17/20 04:25 94 Laboratory Tests 10/17/20 10/17/20 05:47 05:47 WBC 6.75 Hgb 10.3 L Hct 32.7 L Plt Count 312 Sodium 136 Potassium 4.5 Chloride 102 Carbon Dioxide 25 BUN 63 H Creatinine 4.29 H D Glucose 102 H PG Care Time/CCT Total # of Minutes Spent Total Time Spent with Patient: Total time spent is greater than 50% in coordination of care (as documented) at patient's floor/unit and/or counseling patient: Coding Level of Care Code 83715 Subseq Hosp Care Lvl 3 Diagnoses ESRD on dialysis N18.6; Z99.2 Macrocytic anemia D53.9 Altered mental state R41.0 Altered mental status type: delirium Pneumonia J18.9 Pneumonia type: due to unspecified organism Laterality: unspecified laterality Lung location: unspecified part of lung (1) Altered mental state Altered mental status type: delirium Qualified Code(s): R41.0 - Disorientation, unspecified (2) Pneumonia Pneumonia type: due to unspecified organism Laterality: unspecified laterality Lung location: unspecified part of lung Qualified Code(s): J18.9 - Pneumonia, unspecified organism
[2020-10-17] MEDS: DOCUSATE SODIUM 100 MG CAP PO SCH (12:32)
[2020-10-17] MEDS: POLYETHYLENE (MIRALAX) 17 GM PACK PO SCH (12:33)
[2020-10-17] MEDS: CALCITRIOL 0.25 MCG CAPSULE PO SCH (12:37)
[2020-10-17] MEDS: NEPHROCAPS PO SCH (12:37)
[2020-10-17] MEDS: ASPIRIN 81 MG ECTAB PO SCH (12:37)
[2020-10-17] MEDS: THIAMINE HCL 100 MG TAB PO SCH (12:38)
[2020-10-17] MEDS: levETIRAcetam 500 MG TAB PO SCH (12:38)
[2020-10-17] MEDS: ISOSORBIDE MONO EXTENDED REL 30 MG TABCR PO SCH (12:38)
[2020-10-17] MEDS: CLOPIDOGREL BISULFATE 75 MG TAB PO SCH (12:38)
--- NOTE | 2020-10-17 15:49 | Billing Data ---
Date of Service October 17, 2020 Coding Level of Care Code 72274 Subseq Hosp Care Lvl 2
[2020-10-17] MEDS: amLODIPine BESYLATE 5 MG TAB PO SCH (21:12)
[2020-10-17] MEDS: FAMOTIDINE 10 MG TABLET PO SCH (21:14)
[2020-10-17] MEDS: CITALOPRAM 20 MG TAB PO SCH (21:15)
[2020-10-17] MEDS: ATORVASTATIN 40 MG TAB PO SCH (21:57)
--- NOTE | 2020-10-18 06:46 | Discharge Summary ---
Date of Service October 18, 2020 Admission HPI Per Admitting Provider 75 YOM with significant past history for ESRD on dialysis (right tunneled perm cath) and left arm AVF, Multiple CVA (most recent 30Sep2020) HfRef (40-45%), fall resulting in right hip intratrochanteric nail last month, Severe expressive aphasia and altered mental status, residual right sided weakness, and epileptic seizures on Keppra therapy, HTN, ASCVD, CABG and HLD. Patient brought to the emergency room today from [facility] for reported alteration in mental status. Upon evaluation in the emergency room, the patient does appear to be more lethargic than my last encounter with him last week, but baseline movement, deficits, and neurological exam remain the same. In the emergency room the patient had a CT scan done of his head, Vancomycin, Levaquin, and Pip/Tazo adminitstered, blood and urine cultures are pending chest X-ray and ECG and consistent with infection/pna. Patient will be admitted to monitor/treat for left lower lobe pneumonia and alteration in mental status along with continued functional decline. Admission Exam Per Admitting Provider Physical Exam: General: awake, alert, no apparent distress Head: Normocephalic, atraumatic ENT: PERRL, EOMI, no pharyngeal exudate, mucous membranes moist Neuro: AOx1 to person, lethargic but able to hold attention, PEERLA brisk 3/2, EOM intact without nystagmus, expressive aphasia but appropriate, neck full ROM, strength and sensation intact on the left, right is flexed with sensation intact and 4/5 strength, lower extremity 0/5. Chest: equal rise and fall of the chest, no accessory muscle use, no heaves or thrills, decreased in bases auscultation, on room air, no cough Cardiac: Regular rate and rhythm, telemetry reviewed, skin warm dry, cap refill <3 seconds, peripheral pusles +2 no JVD, no murmur. GI: NABS x 4 quadrants, soft, nontender to palpation, no rebound, guarding or tenderness : Spontaneously voiding, no pain, no CVA tenderness, Extremities: Normal inspection, no peripheral edema or erythema, calfs nontender to palpation Psych: Normal mood and affect Skin: no rash or erythema Constitutional: WD/WN, vitals as above Eyes: normal visual prieto by confrontation and + anicteric sclerae Neck: normal visual inspection and trachea midline Respiratory: normal respiratory effort, lungs clear to auscultation Cardiovascular: Rate/Rhythm: regular rate and regular rhythm Gastrointestinal (Abdomen): Inspection/Auscultation: abdomen not distended Percussion/Palpation: abdomen soft; abdomen nontender Musculoskeletal: Head/Neck/Chest: normocephalic and head atraumatic Neg for peripheral LE edema, + pedal pulses Skin: no rashes, warm and dry Neurologic: awake; not confused Speech / Cognition: normal speech Psychiatric: Orientation: alert Lymphatic: Exam as done by Precious Gallo, Principal Diagnosis Pneumonia Discharge Exam Constitutional + ill appearing, + thin and + cachectic; no acute distress Respiratory normal respiratory effort, lungs clear to auscultation Cardiovascular RRR, no murmur, no edema Gastrointestinal (Abdomen) normal bowel sounds, soft, nontender, no hepatosplenomegaly Skin no rashes, warm and dry Neurologic Speech / Cognition: + expressive aphasia Psychiatric Orientation: + not alert and + not oriented x 3 Discharge Data Allergies Allergy/AdvReac Type Severity Reaction Status Date / Time adhesive Allergy Unknown BLISTERING Verified 10/11/20 09:49 OF SKIN latex Allergy Unknown Rash Verified 10/11/20 09:49 Consultations 10/11/20 12:13 ED Decision to Admit Stat 10/11/20 16:08 Consult Nephrology Routine 10/12/20 08:54 Consult Neurology Routine 10/12/20 12:29 Consult Palliative Care Routine Ordered Studies 10/11/20 09:38 CT head/brain wo con Stat 10/12/20 11:53 MR brain wo con Routine Hospital Course (1) Altered mental state: Miguel Mata is a 75 yo male with h/o severe vascular dementia and several previous CVAs, ESRD on hemodialysis, seizure disorder, CAD, chronic systolic CHF, HTN, T2DM and HLD who was admitted to [facility] on 10/11/2020 for the third time in 6 weeks, this time for acute encephalopathy. Acute on Chronic Encephalopathy - longstanding cerebrovascular disease as well as seizure disorder, more lethargic than baseline on admission, likely toxic encephalopathy 2/2 PNA --> continue Zosyn - appears back at baseline although has progressive vascular dementia and several recent hospitalizations - guarded prognosis - Neuro consulted - does not recommend meds for dementia - Palliative consulted - patient's currently wants him to be full code - continue to monitor for changes in mental status Pneumonia - left lung infiltrate in context of recent hospitalization and coming from LTC facility - was on Zosyn for 7 days - found to aspirate with full diet - ST consulted and now on minced/moist diet - Leukocytosis resolved, afebrile, no cough/crackles on exam - Zosyn stopped at discharge - continue minced/moist diet and aspiration precautions Vascular Dementia - 2/2 several previous CVAs, severely impaired at baseline; progressive - guarded prognosis - frequent orientation, encourage sleep hygiene H/o Multiple CVAs - Neuro on board during hospitalization: did not recommend meds for dementia - continue Aspirin/Plavix Seizure Disorder - EEG on last hospitalization with no seizure activity but slowing consistent with dementia - Keppra level has been stable and in therapeutic range, continue ESRD On Dialysis - Nephrology consulted for inpatient dialysis as needed. - abx renal dosed, pharmacy consulted as well for assistance - avoid further nephrotoxic medications - continue calcitriol and nephrocaps - renal diet - outpatient HD at [facility] CAD - Continue Plavix, ASA Chronic Systolic CHF - continue Imdur 30 mg PO daily T2DM - No medical management at this time, continue to track BG. 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: (13) VTE (venous thromboembolism): (14) Pressure ulcer: (15) Demand ischemia: Total Time Total Time Spent Total Time Spent (In Minutes): 30 minutes Total Time Includes: Examination of the Patient, Discharge Planning and Medication Reconciliation Discharge Plan Discharge Items Patient Disposition: Transfer Jail Fac Reason For Visit: PNEUMONIA, LETHARGY Discharge Diagnosis: Encephalopathy Pneumonia Activity: Per Instructions section Non-emergency contact: Primary Care Provider, Senior Field Engineer and Neurologist Call non-emergency contact if: you have any medication questions, your symptoms worsen and you have a fever Follow-up/Referrals: George Nath [Primary Care Provider] - Diet: Dialysis Renal Diet Texture: Pureed (blended smooth) Addtl Attending Provider Instructions: Miguel Mata is a 75 yo male with h/o severe vascular dementia and several previous CVAs, ESRD on hemodialysis, seizure disorder, CAD, chronic systolic CHF, HTN, T2DM and HLD who was admitted to [facility] on 10/11/2020 for the third time in 6 weeks, this time for acute encephalopathy. Acute on Chronic Encephalopathy - longstanding cerebrovascular disease as well as seizure disorder, more lethargic than baseline on admission, likely toxic encephalopathy 2/2 PNA --> continue Zosyn - appears back at baseline although has progressive vascular dementia and several recent hospitalizations - guarded prognosis - Neuro consulted - does not recommend meds for dementia - Palliative consulted - patient's currently wants him to be full code - continue to monitor for changes in mental status Pneumonia - left lung infiltrate in context of recent hospitalization and coming from LTC facility - was on Zosyn for 7 days - found to aspirate with full diet - ST consulted and now on minced/moist diet - Leukocytosis resolved, afebrile, no cough/crackles on exam - Zosyn stopped at discharge - continue minced/moist diet and aspiration precautions Vascular Dementia - 2/2 several previous CVAs, severely impaired at baseline; progressive - guarded prognosis - frequent orientation, encourage sleep hygiene H/o Multiple CVAs - Neuro on board during hospitalization: did not recommend meds for dementia - continue Aspirin/Plavix Seizure Disorder - EEG on last hospitalization with no seizure activity but slowing consistent with dementia - Keppra level has been stable and in therapeutic range, continue ESRD On Dialysis - Nephrology consulted for inpatient dialysis as needed. - abx renal dosed, pharmacy consulted as well for assistance - avoid further nephrotoxic medications - continue calcitriol and nephrocaps - renal diet - outpatient HD at [facility] CAD - Continue Plavix, ASA Chronic Systolic CHF - continue Imdur 30 mg PO daily T2DM - No medical management at this time, continue to track BG. Treat if >200 HTN - continue Amlodipine 2.5mg PO QHS HLD - continue Atorvastatin FEN/GI: Renal, minced/moist DVT Prophylaxis: Heparin 5000units SQ Q12H Code Status: Full code Pending Studies at Discharge: No Stand-Alone Forms: My [facility] Skilled Items Patient informed of condition?: Yes DNR: No Discharge Level of Care: Skilled Communicable Disease: No Discharge Prognosis: Deteriorating Lines: None Urinary Catheter: No Medications and DC Order Prescriptions: Continued calcitriol [Rocaltrol] 0.25 mcg capsule 0.25 mcg PO 3XWK Qty: 15 RF: 5 citalopram 10 mg tablet 10 mg PO HS Qty: 30 RF: 5 famotidine 40 mg tablet 40 mg PO BID Qty: 180 RF: 3 docusate sodium [Stool Softener] 100 mg capsule 100 mg PO DAILY RF: 0 Renal Caps 1 mg Capsule 1 cap PO QAM Qty: 30 RF: 0 polyethylene glycol 3350 [Miralax] 17 gram powder in packet 17 gm PO DAILY Qty: 0 RF: 0 atorvastatin [Lipitor] 80 mg tablet 80 mg PO HS RF: 0 levetiracetam [Keppra] 500 mg tablet 500 mg PO 4XWK RF: 0 clopidogrel [Plavix] 75 mg tablet 75 mg PO DAILY RF: 0 acetaminophen 325 mg tablet 650 mg PO Q6H MDD 3000 MG APAP/24 HOURS PRN (Reason: Fever Or Pain) RF: 0 amlodipine [Norvasc] 5 mg tablet 2.5 mg PO HS RF: 0 sennosides [Senokot] 8.6 mg tablet 8.6 mg PO Q48H PRN (Reason: Constipation) RF: 0 hydrocortisone [Proctosol HC] 2.5 % cream with perineal applicator 1 appln NC Q24H PRN (Reason: Itching) RF: 0 isosorbide mononitrate 30 mg tablet extended release 24 hr 30 mg PO DAILY Qty: 30 RF: 0 Discharge Orders: Discharge Order (Routine); Ordered 10/18/20 Ordered By: Ra Raphael Admission Data Admit Date/Time: 10/11/20 13:39 Attending Provider: Jonh Yeager Admit Provider: Precious Gallo Primary Care Provider: George Nath Other Providers: Pham, ; Precious Gallo ; Joss Maxwell ; Thomas Chávez ; Deborah Duran ; Luis Enrique Pacheco Other Interventions: Discharge Summary Assessment (RN) Last Done: 10/18/20 08:00 Supervising Physician Co-Signing Physician Notes I personally examined the patient and verified all grande points of history and exam, discussed case, and agree with decision making with Dr Raphael. being set up for transport when i see him. no new issues arose vitals noted nad heent nc at mmm breathing unlabored no accessory muscles good effort skin no rashes no pallor or icterus encephalopathy - acute on chronic. vascular dementia/progressive. stable for return to snf for ongoing supportive care. otherwise as above Resident Activity Tracking Resident Involvement: Resident Care Provided Care Provided: Adult Hospital Medicine
[2020-10-18] MEDS: ISOSORBIDE MONO EXTENDED REL 30 MG TABCR PO SCH (07:44)
[2020-10-18] MEDS: PIPERACILLIN/TAZOBACTAM 3.375 GM in DEXTROSE 5% 100 ML IV SCH (07:44)
[2020-10-18] MEDS: DOCUSATE SODIUM 100 MG CAP PO SCH (07:44)
[2020-10-18] MEDS: POLYETHYLENE (MIRALAX) 17 GM PACK PO SCH (07:44)
[2020-10-18] MEDS: CLOPIDOGREL BISULFATE 75 MG TAB PO SCH (07:45)
[2020-10-18] MEDS: NEPHROCAPS PO SCH (07:45)
[2020-10-18] MEDS: ASPIRIN 81 MG ECTAB PO SCH (07:45)
[2020-10-18] MEDS: THIAMINE HCL 100 MG TAB PO SCH (07:45)
[2020-10-18] MEDS: HEPARIN SOD 5,000 UNIT/0.5 ML VIAL SQ SCH (07:47)
[2020-10-18 07:53] LABS: Hematocrit (blood only) 35.8 % (42-52); Hemoglobin 11.1 g/dL (14.0-18.0); Mean Corpuscular Hemoglobin 31.2 pg (25-34); Mean Corpuscular Volume 100.6 fL (80-100); Mean Platelet Volume 9.8 fL (7.4-10.4); Platelet Count 285 K/uL (130-400); RDW Coefficient of Variation 16.9 % (11.5-14.5); RDW Standard Deviation 62.9 fL (36.4-46.3); Red Blood Count 3.56 M/uL (4.7-6.1)
[2020-10-18 08:30] LABS: BUN Creatinine Ratio 12.9 (10-20); Calcium 9.3 mg/dl (8.5-10.1); Creatinine Clr Calc Pharmacy 16.7 ml/min; Est GFR (African American) 22.8; Est GFR (Non-African American) 19.7; Potassium 4.3 mmol/L (3.5-5.1)
--- NOTE | 2020-10-18 09:23 | Nephrology Progress Note ---
Date of Service October 18, 2020 Assessment & Plan (1) ESRD on dialysis: * HD today. Orders have been placed in EMR and HD RN notified * Outpatient HD at [facility] - 3 hr, 2K 2Ca F-180NR EDW 56kg (2) Macrocytic anemia: * Chronic, stable. Maintained on Venofer 100 mg QHD and Micera as outpatient. (3) Altered mental state: * This is the 3rd hospitalization in last 6 weeks. Progressive decline with underlying dementia over the past several months. Neurology consultation did not recommend medical therapy for dementia. MRI demonstrated subacute on chronic right occipital lobe infarct slightly increased in size since October 02, 2020 * Unable to discuss goals of care with Miguel directly due to his impaired cognitive status. His family is struggling w/ the decision to continue/stop HD. Unfortunately they are not able to see him due to visitor restrictions from the COVID pandemic. Palliative care consultation appreciated. Prognosis is guarded (4) Pneumonia: * Remains on Zosyn. Clinically improved. * Swallowing study completed. Speech therapy advised minced/moist diet with aspiration precautions Admission and Anticipated Discharge Date Admission Date: October 11, 2020 Physical Exam Constitutional: + lethargic; not in distress Eyes: PERRL, conjunctivae normal, anicteric sclerae Respiratory: Auscultation: lungs clear to auscultation bilaterally Cardiovascular: Rate/Rhythm: regular rate and regular rhythm Extremities: + AV fistula (+ bruit) Gastrointestinal (Abdomen): normal bowel sounds, soft, nontender, no hepatosplenomegaly Skin: no rashes, warm and dry Results & Data ([facility]) Vital Signs (Past 12 Hours) Vital Signs Temp Pulse Pulse Pulse Resp BP Pulse Ox 10/18/20 08:00 36.6 C 92 H 89 20 143/87 H 98 10/18/20 07:22 36.6 C 92 H 20 143/87 H 98 10/18/20 07:07 77 10/18/20 03:59 37.3 C 89 14 146/86 H 98 10/17/20 23:31 37.2 C 80 14 146/71 H 95 PG Care Time/CCT Total # of Minutes Spent Total Time Spent with Patient: Total time spent is greater than 50% in coordination of care (as documented) at patient's floor/unit and/or counseling patient: Coding Diagnoses ESRD on dialysis N18.6; Z99.2 Macrocytic anemia D53.9 Altered mental state R41.0 Altered mental status type: delirium Pneumonia J18.9 Pneumonia type: due to unspecified organism Laterality: unspecified laterality Lung location: unspecified part of lung (1) Altered mental state Altered mental status type: delirium Qualified Code(s): R41.0 - Disorientation, unspecified (2) Pneumonia Pneumonia type: due to unspecified organism Laterality: unspecified latera lity Lung location: unspecified part of lung Qualified Code(s): J18.9 - Pneumonia, unspecified organism
--- NOTE | 2020-10-18 15:54 | Billing Data ---
Date of Service October 18, 2020 Coding Level of Care Code D/C Day Management <30 mins
== END 2020-10-18 09:15 | DRG 177 ==
LOC: ED 09:07 → 2S 13:39 → SUATTDRO 13:39 → 2S 15:40 → 2N 10-13 13:28

== ENCOUNTER 2020-10-21 08:03 | Observation (INO) ==
[2020-10-21 08:36] LABS: Basophils # (auto) 0.02 K/uL (0-0.2); Basophils % (auto) 0.2 %; Eosinophils % (auto) 1.2 %; Hematocrit (blood only) 37.2 % (42-52); Hemoglobin 11.9 g/dL (14.0-18.0); Immature Granulocytes # (auto) 0.05 K/uL (0.00-0.02); Immature Granulocytes % (auto) 0.6 %; Lymphocytes # (auto) 2.19 K/uL (1.2-3.4); Lymphocytes % (auto) 26.6 %; Mean Corpuscular Hemoglobin 31.6 pg (25-34); Mean Corpuscular Volume 98.7 fL (80-100); Mean Platelet Volume 10.7 fL (7.4-10.4); Monocytes # (auto) 0.89 K/uL (0.11-0.59); Monocytes % (auto) 10.8 %; Neutrophils # (auto) 4.99 K/uL (1.4-6.5); Neutrophils % (auto) 60.6 %; Platelet Count 300 K/uL (130-400); RDW Standard Deviation 60.9 fL (36.4-46.3); Red Blood Count 3.77 M/uL (4.7-6.1); White Blood Count 8.24 K/uL (4.8-10.8)
[2020-10-21 08:46] LABS: INR 1.1 (0.9-1.1); Partial Thromboplastin Time 26.8 Seconds (21.0-31.0); Prothrombin Time 10.8 Seconds (9.0-12.0)
[2020-10-21 08:53] LABS: Alanine Aminotransferase 25 U/L (12-78); Albumin Level 2.4 gm/dl (3.4-5.0); Aspartate Aminotransferase 25 U/L (15-37); BUN Creatinine Ratio 11.7 (10-20); Bilirubin Direct 0.2 mg/dl (0-0.2); Blood Urea Nitrogen 42 mg/dl (7-18); Calcium 8.8 mg/dl (8.5-10.1); Carbon Dioxide 28 mmol/L (21-32); Chloride 101 mmol/L (98-107); Est GFR (Non-African American) 15.5; Glucose 118 mg/dl (70-99); Lipase 238 U/L (73-393); Magnesium 2.1 mg/dl (1.8-2.4); Potassium 4.8 mmol/L (3.5-5.1); Sodium 137 mmol/L (136-145)
[2020-10-21 09:01] LABS: Base Excess VBG 1.3 mEq/L; HCO3 VBG 28 mmol/L; Oxygen Saturation VBG < 60.0 %; PCO2 VBG 52 mmHg (38-50); PO2 VBG 26 mmHg; pH VBG 7.35 (7.36-7.41)
[2020-10-21 09:08] LABS: Albumin Globulin Ratio 0.5 (0.9-2); Alkaline Phosphatase 83 U/L (45-117); Bilirubin,Total 0.5 mg/dl (0.2-1); Globulin 4.4 gm/dl (2.5-4.0); Phosphorus 4.7 mg/dl (2.5-4.9); Total Protein 6.8 gm/dl (6.4-8.2); Troponin I 0.077 ng/ml (0-0.045)
--- NOTE | 2020-10-21 09:31 | CT Scan Report ---
CT OF THE HEAD WITHOUT CONTRAST CLINICAL HISTORY: decreased responsiveness, h/o dementia/cva COMPARISON STUDY: Head CT October 11, 2020. MRI of the brain October 12, 2020. CT DOSE: 788.63 mGycm TECHNIQUE: Helical axial images of the head were obtained without IV contrast. Automated exposure con trol was utilized for the study. A dose lowering technique was utilized adhering to the principles o f ALARA. FINDINGS: No acute intracranial hemorrhage, midline shift or mass effect is present. Old left frontal and right occipital lobe infarcts are noted. Dilatation of the left lateral ventricle is unchanged. This is due to the old infarct. Basal cisterns are patent. There are no extra-axial collections. Ther e are no findings to suggest acute dural sinus thrombosis or acute territorial infarct. White matter hypodensity suggests small vessel disease. There is no calvarial fracture. IMPRESSION: No acute intracranial findings. Old infarcts, as described above. No change in appearance of the brai n. ACT 112: Negative or not required by law. Electronically signed by: Madan Mancilla M.D. 10/21/2020 9:29 AM
--- NOTE | 2020-10-21 09:39 | Emergency Department Note ---
Impression & Plan Acute metabolic encephalopathy, Seizure disorder, Stroke syndrome, ESRD on hemodialysis, Second degree AV block, Mobitz type I, Elevated lactic acid level ED Provider Note NAME: VIVIANA LANIER AGE: 75 SEX: M ARRIVES VIA: Ambulance INFORMANT: Patient, ED PROVIDER(S): Migue Tamayo MD CHIEF COMPLAINT: AMS PLAN: Disposition: Admit MEDICAL DECISION MAKING: The patient is a 75-year-old gentleman with past medical history of ESRD on HD via right tunneled permacath, left arm AV fistula, history of multiple CVA (most recent September 30, 2020), systolic heart failure with EF of 40-45%, h/o 2nd degree AVB Mobitz I (Wenkebach), recent history of right hip intro trochanteric nail in August after fall, history of severe expressive aphasia and residual right-sided weakness, hip history of epileptic seizures on Keppra, hypertension, CABG/CAD, hyperlipidemia presents to the emergency department from shelter facility at [facility] for worsening mental status from baseline poor mental status which per report is with eyes open and minimally verbal. Per report the patient was hypoxic at 70% on room air and improved after adm inistration of 100% O2 via nonrebreather and upon arrival to emergency department when put on room air had normal oxygen saturation. On arrival the patient will open his eyes to loud voice or painful stimulus. It is difficult to ascertain his ability to follow commands. He is nonverbal at this time. Review of the patient's previous prior visits did document guarded prognosis given the patient's recurrent CVAs and the patient was seen by palliative care but the patient's did want to continue to maintain full code. On arrival the patient is acute on chronically-ill appearing, in no acute distress, afebrile with heart rate in the 50s and blood pressure 180s/80s and vital signs otherwise stable. He appears clinically dry. Opens eyes to loud voice but with poor attention, nonverbal. Motor exam limited 2/2 inability to follow commands. RUE with 4/5 strength. LUE and BLE without movement to painful stimuli. EKG with sinus bradycardia, 50 bpm, fusion complexes and repeat with sinus rhythm with 2nd degree AVB Mobitz I (Wenkebach), which was intermittent on telemetry. ST and TW abnormality laterally, no overt ST elevation. CXR with improved opacity from prior. CT head without acute process. Old infarts appreciated. WBC and platelets wnl. H/H similar to prior. VBG unremarkable. Cr. 3.6 with BUN 42 in the setting of ESRD on HD/due for HD today. Potassium wnl. Electrolytes otherwise without significant abnormalities. Initial lactate 2.5, nonspecific with repeat 1.8 following gentle IVF hydration. Troponin 0.077 similar recent stable elevations in the setting of ESRD. Lipase wnl. Procalcitonin 0.8 stable from recent admission, nonspecific given ESRD. UA without convincing infection. Covid-19 PCR negative. Influenza and RSV PCR also negative. Upon re-evaluation, patient still without significant change. at bedside relates that previously he was able to have conversation over phone recently and feels his current state has worsened, however she admits she did not get to see him following his recent admission and discharge back to [facility]. She does agree with admission for further evaluation/management. At this time, etiology to patient's encephalopathy is unclear. Post-ictal state following unwitnessed seizure is possible. Subclinical seizures as well as aspiration leading to hypoxia also considered. Given no overt infectious source at this time will de judy decision to admitting team for now. Case was discussed with Dr. Henderson, [facility] hospitalist, who will evaluate the patient for admission. Triage Nursing notes reviewed and agree them. Additional history obtained from EMS, at bedside. Prior medical records reviewed Vital Signs: reviewed and remarkable for bradycardia. Differential diagnosis: Infection, dehydration, metabolic abnormality, hypo/hyperglycemia, electrolyte disturbance, anemia, hypoxia, cardiac sources, intracerebral event, toxicologic, neurologic, as well as other pathologies. ER treatment provided: See below. Diagnostics interpreted by me: ECG 0809: Sinus bradycardia, 50 bpm, fusion complexes, ST and TW abnormality laterally, no overt ST elevation. ECG 1129: Sinus rhythm with 2nd degree AVB Mobitz I (Wenkebach), 71 bpm, ST and TW abnormality laterally, no overt ST elevation. Cardiac Monitoring: An order for continuous cardiac monitoring was placed and demonstrated sinus bradycardia, 50 bpm, fusion complexes, intermittent 2nd degree AVB Mobitz I (Wenkebach). Laboratory studies: See below Imaging studies: XR chest 1V portable HISTORY: SEPSIS COMPARISON: Chest 10/11/2020. FINDINGS: No pneumothorax. Small left pleural effusion and left base airspace opacities have slightly improved. The heart remains mildly enlarged. There are poststernotomy changes. Right jugular catheter terminates at the distal SVC. This remains unchanged. There is mild central pulmonary vascular congestion without overt edema. This remains unchanged. IMPRESSION: 1. Small left pleural effusion and left base airspace opacities have slightly improved. 2. No change in the cardiomegaly and mild pulmonary vascular congestion. -- CT OF THE HEAD WITHOUT CONTRAST CLINICAL HISTORY: decreased responsiveness, h/o dementia/cva COMPARISON STUDY: Head CT October 11, 2020. MRI of the brain October 12, 2020. CT DOSE: 788.63 mGycm TECHNIQUE: Helical axial images of the head were obtained without IV contrast. Automated exposure control was utilized for the study. A dose lowering technique was utilized adhering to the principles of ALARA. FINDINGS: No acute intracranial hemorrhage, midline shift or mass effect is present. Old left frontal and right occipital lobe infarcts are noted. Dilatation of the left lateral ventricle is unchanged. This is due to the old infarct. Basal cisterns are patent. There are no extra-axial collections. There are no findings to suggest acute dural sinus thrombosis or acute territorial infarct. White matter hypodensity suggests small vessel disease. There is no calvarial fracture. IMPRESSION: No acute intracranial findings. Old infarcts, as described above. No change in appearance of the brain. ACT 112: Negative or not required by law. Consultation(s): Case was discussed with Dr. Henderson, [facility] hospitalist, who will evaluate the patient for admission. HPI: The patient is a 75-year-old gentleman with past medical history of ESRD on HD via right tunneled permacath, left arm AV fistula, history of multiple CVA (most recent September 30, 2020), systolic heart failure with EF of 40-45%, recent history of right hip intro trochanteric nail in August after fall, history of severe expressive aphasia and residual right-sided weakness, hip history of epileptic seizures on Keppra, hypertension, CABG/CAD, hyperlipidemia presents to the emergency department from shelter facility at [facility] for worsening mental status from baseline poor mental status which per report is with eyes open and minimally verbal. Per report the patient was hypoxic at 70% on room air and improved after administration of 100% O2 via nonrebreather and upon arrival to emergency department when put on room air had normal oxygen saturation. On arrival the patient will open his eyes to loud voice or painful stimulus. It is difficult to ascertain his ability to follow commands. He is nonverbal at this time. Review of the patient's previous prior visits did document guarded prognosis given the patient's recurrent CVAs and the patient was seen by palliative care but the patient's did want to continue to maintain full code. ROS: See above HPI for pertinent positives & negatives. A total of 10 systems reviewed and were otherwise negative. PAST MEDICAL HISTORY:See Below PAST SURGICAL HISTORY:See Below FAMILY HISTORY:See Below SOCIAL HISTORY:See Below HOME MEDICATIONS:See Below ALLERGIES:See Below VITALS:See Below PHYSICAL EXAMINATION: GENERAL: Awake to loud voice, acute on chronically-ill appearing, in no distress HENT: Normocephalic, atraumatic. Oropharynx with dry mucous membranes and otherwise unremarkable. EYES: Normal conjunctiva. Sclera non-icteric. NECK: Supple. No nuchal rigidity. FROM. No JVD. RESPIRATORY: Clear to auscultation. CARDIAC: Bradycardic rate, irregular rhythm. Extremities warm and well perfused. Pulses equal. ABDOMEN: Soft, non-distended. No tenderness to palpation. No rebound or guarding. No masses. RECTAL: Deferred. MUSCULOSKELETAL: Chest examination reveals no tenderness. The back is symmetrical on inspection without obvious abnormality. There is no CVA tenderness to palpation. No joint edema. LOWER EXTREMITIES: Calves are equal size bilaterally and non-tender. No edema. No discoloration. NEURO: Opens eyes to loud voice but with poor attention, nonverbal. Motor exam limited 2/2 inability to follow commands. RUE with 4/5 strength. LUE and BLE without movement to painful stimuli. SKIN: No rash or jaundice noted. Migue Tamayo MD Past Med/Surg History Medical History Acidosis, lactic Benign prostatic hyperplasia CAD (coronary artery disease) s/p CABG 2007 Carotid artery stenosis s/p remote R & L endarterectomies with L re-occlusion sometime before 2010. Being monitored by [facility] neuro, on Plavix. Chronic kidney disease Congestive heart failure (CHF) Dementia Depression Diabetes mellitus, type 2 A1C 5.4% 11/2019. Not on any medication. Diabetic peripheral neuropathy Esophageal reflux Flash pulmonary edema 11/2019 [facility] 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 (1 YEAR AFTER CO) ?1989' Hyperlipidemia Hypertension Memory problem PT REPORTS "DEMENTIA" "COMES AND GOES" Myocardial Infarction 1989? Renal artery stenosis s/p left renal artery stenting; moderate right renal artery stenosis but no significant left renal artery stenosis on 11/2019 duplex Seizure disorder Stable on Keppra, no seizure for "a long time." Follows with [facility] neurology. SNHL (sensorineural hearing loss) Surgical History History of aorto-femoral bypass History of bypass graft (non vein) Aortic-femoral or bifemoral History of carotid endarterectomy L 1998, R 2009 History of cataract surgery RT/LEFT History of colonoscopy History of esophagogastroduodenoscopy (EGD) History of tooth extraction History of vascular access device IJ FOR DIAYLSIS S/P CABG (coronary artery bypass graft) (2007) [facility] Family History Brother Hypertension Hypercholesteremia Sister Diabetes Unknown Hypertension Cardiac disorder Social History Smoking Status: Unknown if ever smoked Tobacco Type: Cigarettes Cigarettes Per Day: 30; Second Hand Exposure: No; Hx Alcohol Use: No Hx Substance Use: No Preferred Language: Brazilian Communication Ability: Unable to Communication Ability Comment: Unable to assess Visual Impairment: No Limitations Steam Clothes Press Operator Required: No Beliefs That Will Affect Care: None marital status: Current Living Situation: [facility] Current Living Situation Comment: at [facility] current occupational status: 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" Other Information That Helps Us Care for You: No Feels Safe at Home: Yes caffeine: No Seatbelt Use: always Assistive Devices: BiPap, CPAP, Mechanical Lift and Wheelchair Allergies Allergies Allergy/AdvReac Type Severity Reaction Status Date / Time adhesive Allergy Unknown BLISTERING Verified 10/21/20 08:30 OF SKIN latex Allergy Unknown Rash Verified 10/21/20 08:30 Home Meds Home Medications Medication Instructions Recorded Confirmed atorvastatin [Lipitor] 80 mg PO HS 02/18/20 10/21/20 clopidogrel [Plavix] 75 mg PO DAILY 02/18/20 10/21/20 levetiracetam [Keppra] 500 mg PO 4XWK 02/18/20 10/21/20 docusate sodium [Stool Softener] 100 mg PO DAILY 04/13/20 10/21/20 acetaminophen 650 mg PO Q6H PRN MDD 3000 MG 09/30/20 10/21/20 APAP/24 HOURS amlodipine [Norvasc] 2.5 mg PO HS 09/30/20 10/21/20 hydrocortisone [Proctosol HC] 1 appln DC Q24H PRN 09/30/20 10/21/20 sennosides [Senokot] 8.6 mg PO Q48H PRN 09/30/20 10/21/20 Previous Rx's Medication Instructions Recorded Renal Caps 1 cap PO QAM #30 cap 11/20/19 polyethylene glycol 3350 [Miralax] 17 gm PO DAILY #0 ea 12/04/19 famotidine 40 mg tablet 40 mg PO BID #180 tab 03/01/20 calcitriol 0.25 mcg capsule 0.25 mcg PO 3XWK #15 cap 08/09/20 citalopram 10 mg tablet 10 mg PO HS #30 tab 09/05/20 isosorbide mononitrate 30 mg PO DAILY #30 tab 10/04/20 Results & Data (ED) Vital Signs Vital Signs - 24 hr 10/21/20 08:14 10/21/20 08:27 10/21/20 08:50 Pulse Rate 43 L 61 73 Pulse Rate from SpO2 Sensor Respiratory Rate 16 16 17 Respiratory Effort / Characteristics Non-Labored Spontaneous Spontaneous Respiratory Depth Normal Respiratory Pattern Regular Blood Pressure 113/55 L 155/79 H Blood Pressure Mean 74 104 Pulse Oximetry 98 96 98 Oxygen Delivery Method Room Air Room Air Sepsis Recent Fever Within 48 Hours No Sepsis New/Unexplained Change in Mental Status No Sepsis Action Taken by Nursing No Action Required 10/21/20 09:00 10/21/20 09:30 10/21/20 10:30 Pulse Rate 73 57 L 68 Pulse Rate from SpO2 Sensor 63 Respiratory Rate 16 18 14 Respiratory Effort / Characteristics Respiratory Depth Respiratory Pattern Blood Pressure 169/98 H 184/82 H 169/99 H Blood Pressure Mean 121 116 122 Pulse Oximetry 94 100 95 Oxygen Delivery Method Sepsis Recent Fever Within 48 Hours Sepsis New/Unexplained Change in Mental Status Sepsis Action Taken by Nursing 10/21/20 11:01 10/21/20 11:30 Pulse Rate 64 69 Pulse Rate from SpO2 Sensor 65 73 Respiratory Rate 12 13 Respiratory Effort / Characteristics Respiratory Depth Respiratory Pattern Blood Pressure 163/81 H 160/83 H Blood Pressure Mean 108 108 Pulse Oximetry 99 100 Oxygen Delivery Method Sepsis Recent Fever Within 48 Hours Sepsis New/Unexplained Change in Mental Status Sepsis Action Taken by Nursing Laboratory Data Attestation: I reviewed the patient's lab results. Result diagrams: 10/21/20 08:15 10/21/20 08:15 Lab Results 10/21/20 10/21/20 10/21/20 Range/Units 08:15 08:15 08:15 WBC 8.24 (4.8-10.8) K/uL RBC 3.77 L (4.7-6.1) M/uL Hgb 11.9 L (14.0-18.0) g/dL Hct 37.2 L (42-52) % MCV 98.7 (80-100) fL MCH 31.6 (25-34) pg MCHC 32.0 (32-36) g/dL RDW Std Deviation 60.9 H (36.4-46.3) fL RDW Coeff of Shayy 17.0 H (11.5-14.5) % Plt Count 300 (130-400) K/uL MPV 10.7 H (7.4-10.4) fL Immature Gran % (Auto) 0.6 % Neut % (Auto) 60.6 % Lymph % (Auto) 26.6 % Graham % (Auto) 10.8 % Eos % (Auto) 1.2 % Baso % (Auto) 0.2 % Neut # (Auto) 4.99 (1.4-6.5) K/uL Lymph # (Auto) 2.19 (1.2-3.4) K/uL Graham # (Auto) 0.89 H (0.11-0.59) K/uL Eos # (Auto) 0.10 (0-0.5) K/uL Baso # (Auto) 0.02 (0-0.2) K/uL Immature Gran # (Auto) 0.05 H (0.00-0.02) K/uL PT (9.0-12.0) Seconds INR (0.9-1.1) APTT (21.0-31.0) Seconds PTT Ratio VBG pH (7.36-7.41) VBG pCO2 (38-50) mmHg VBG pO2 mmHg VBG HCO3 mmol/L VBG O2 Saturation % VBG Base Excess mEq/L Barometric Pressure mm/Hg Sodium 137 (136-145) mmol/L Potassium 4.8 (3.5-5.1) mmol/L Chloride 101 (98-107) mmol/L Carbon Dioxide 28 (21-32) mmol/L Anion Gap 8.0 (3-11) BUN 42 H (7-18) mg/dl Creatinine 3.61 H (0.6-1.4) mg/dl Est Cr Clr Drug Dosing Not Reportable Est GFR ( Amer) 18.0 Est GFR (Non-Af Amer) 15.5 BUN/Creatinine Ratio 11.7 (10-20) Glucose 118 H (70-99) mg/dl Lactate (0.4-2.0) mmol/L Calcium 8.8 (8.5-10.1) mg/dl Phosphorus 4.7 (2.5-4.9) mg/dl Magnesium 2.1 (1.8-2.4) mg/dl Total Bilirubin 0.5 (0.2-1) mg/dl Direct Bilirubin 0.2 (0-0.2) mg/dl AST 25 (15-37) U/L ALT 25 (12-78) U/L Alkaline Phosphatase 83 (45-117) U/L Troponin I 0.077 H* (0-0.045) ng/ml Total Protein 6.8 (6.4-8.2) gm/dl Albumin 2.4 L (3.4-5.0) gm/dl Globulin 4.4 H (2.5-4.0) gm/dl Albumin/Globulin Ratio 0.5 L (0.9-2) Lipase 238 (73-393) U/L Procalcitonin 0.80 H (0-0.5) ng/ml TSH 2.480 (0.300-4.500) uIu/ml Prolactin ng/ml Urine Color Urine Appearance (Clear) Urine pH (4.5-7.5) Ur Specific Preston (1.000-1.030) Urine Protein (Negative) Urine Glucose (UA) (Negative) Urine Ketones (Negative) Urine Blood (Negative) Urine Nitrite (Negative) Urine Bilirubin (Negative) Urine Urobilinogen (Negative) Ur Leukocyte Esterase (Negative) Urine WBC (Auto) (0-5) /hpf Urine RBC (Auto) (0-4) /hpf U Hyaline Cast (Auto) (0-5) /lpf U Epithel Cells (Auto) (0-5) /lpf Urine Bacteria (Auto) (Negative) Ur Renal Epithelial Cell COVID-19 Eval Order SARS-CoV-2 (PCR) (Negative) Influenza Type A (PCR) (Neg) Influenza Type B (PCR) (Neg) RSV (RT-PCR) (Neg) 10/21/20 10/21/20 10/21/20 Range/Units 08:15 08:15 08:15 WBC (4.8-10.8) K/uL RBC (4.7-6.1) M/uL Hgb (14.0-18.0) g/dL Hct (42-52) % MCV (80-100) fL MCH (25-34) pg MCHC (32-36) g/dL RDW Std Deviation (36.4-46.3) fL RDW Coeff of Shayy (11.5-14.5) % Plt Count (130-400) K/uL MPV (7.4-10.4) fL Immature Gran % (Auto) % Neut % (Auto) % Lymph % (Auto) % Graham % (Auto) % Eos % (Auto) % Baso % (Auto) % Neut # (Auto) (1.4-6.5) K/uL Lymph # (Auto) (1.2-3.4) K/uL Graham # (Auto) (0.11-0.59) K/uL Eos # (Auto) (0-0.5) K/uL Baso # (Auto) (0-0.2) K/uL Immature Gran # (Auto) (0.00-0.02) K/uL PT 10.8 (9.0-12.0) Seconds INR 1.1 (0.9-1.1) APTT 26.8 (21.0-31.0) Seconds PTT Ratio 1.0 VBG pH (7.36-7.41) VBG pCO2 (38-50) mmHg VBG pO2 mmHg VBG HCO3 mmol/L VBG O2 Saturation % VBG Base Excess mEq/L Barometric Pressure mm/Hg Sodium (136-145) mmol/L Potassium (3.5-5.1) mmol/L Chloride (98-107) mmol/L Carbon Dioxide (21-32) mmol/L Anion Gap (3-11) BUN (7-18) mg/dl Creatinine (0.6-1.4) mg/dl Est Cr Clr Drug Dosing Est GFR ( Amer) Est GFR (Non-Af Amer) BUN/Creatinine Ratio (10-20) Glucose (70-99) mg/dl Lactate 2.5 H* (0.4-2.0) mmol/L Calcium (8.5-10.1) mg/dl Phosphorus (2.5-4.9) mg/dl Magnesium (1.8-2.4) mg/dl Total Bilirubin (0.2-1) mg/dl Direct Bilirubin (0-0.2) mg/dl AST (15-37) U/L ALT (12-78) U/L Alkaline Phosphatase (45-117) U/L Troponin I (0-0.045) ng/ml Total Protein (6.4-8.2) gm/dl Albumin (3.4-5.0) gm/dl Globulin (2.5-4.0) gm/dl Albumin/Globulin Ratio (0.9-2) Lipase (73-393) U/L Procalcitonin (0-0.5) ng/ml TSH (0.300-4.500) uIu/ml Prolactin 15.02 ng/ml Urine Color Urine Appearance (Clear) Urine pH (4.5-7.5) Ur Specific Preston (1.000-1.030) Urine Protein (Negative) Urine Glucose (UA) (Negative) Urine Ketones (Negative) Urine Blood (Negative) Urine Nitrite (Negative) Urine Bilirubin (Negative) Urine Urobilinogen (Negative) Ur Leukocyte Esterase (Negative) Urine WBC (Auto) (0-5) /hpf Urine RBC (Auto) (0-4) /hpf U Hyaline Cast (Auto) (0-5) /lpf U Epithel Cells (Auto) (0-5) /lpf Urine Bacteria (Auto) (Negative) Ur Renal Epithelial Cell COVID-19 Eval Order SARS-CoV-2 (PCR) (Negative) Influenza Type A (PCR) (Neg) Influenza Type B (PCR) (Neg) RSV (RT-PCR) (Neg) 10/21/20 10/21/20 10/21/20 Range/Units 08:45 08:45 08:45 WBC (4.8-10.8) K/uL RBC (4.7-6.1) M/uL Hgb (14.0-18.0) g/dL Hct (42-52) % MCV (80-100) fL MCH (25-34) pg MCHC (32-36) g/dL RDW Std Deviation (36.4-46.3) fL RDW Coeff of Shayy (11.5-14.5) % Plt Count (130-400) K/uL MPV (7.4-10.4) fL Immature Gran % (Auto) % Neut % (Auto) % Lymph % (Auto) % Graham % (Auto) % Eos % (Auto) % Baso % (Auto) % Neut # (Auto) (1.4-6.5) K/uL Lymph # (Auto) (1.2-3.4) K/uL Graham # (Auto) (0.11-0.59) K/uL Eos # (Auto) (0-0.5) K/uL Baso # (Auto) (0-0.2) K/uL Immature Gran # (Auto) (0.00-0.02) K/uL PT (9.0-12.0) Seconds INR (0.9-1.1) APTT (21.0-31.0) Seconds PTT Ratio VBG pH 7.35 L (7.36-7.41) VBG pCO2 52 H (38-50) mmHg VBG pO2 26 mmHg VBG HCO3 28 mmol/L VBG O2 Saturation < 60.0 % VBG Base Excess 1.3 mEq/L Barometric Pressure 721.5 mm/Hg Sodium (136-145) mmol/L Potassium (3.5-5.1) mmol/L Chloride (98-107) mmol/L Carbon Dioxide (21-32) mmol/L Anion Gap (3-11) BUN (7-18) mg/dl Creatinine (0.6-1.4) mg/dl Est Cr Clr Drug Dosing Est GFR ( Amer) Est GFR (Non-Af Amer) BUN/Creatinine Ratio (10-20) Glucose (70-99) mg/dl Lactate (0.4-2.0) mmol/L Calcium (8.5-10.1) mg/dl Phosphorus (2.5-4.9) mg/dl Magnesium (1.8-2.4) mg/dl Total Bilirubin (0.2-1) mg/dl Direct Bilirubin (0-0.2) mg/dl AST (15-37) U/L ALT (12-78) U/L Alkaline Phosphatase (45-117) U/L Troponin I (0-0.045) ng/ml Total Protein (6.4-8.2) gm/dl Albumin (3.4-5.0) gm/dl Globulin (2.5-4.0) gm/dl Albumin/Globulin Ratio (0.9-2) Lipase (73-393) U/L Procalcitonin (0-0.5) ng/ml TSH (0.300-4.500) uIu/ml Prolactin ng/ml Urine Color Urine Appearance (Clear) Urine pH (4.5-7.5) Ur Specific Preston (1.000-1.030) Urine Protein (Negative) Urine Glucose (UA) (Negative) Urine Ketones (Negative) Urine Blood (Negative) Urine Nitrite (Negative) Urine Bilirubin (Negative) Urine Urobilinogen (Negative) Ur Leukocyte Esterase (Negative) Urine WBC (Auto) (0-5) /hpf Urine RBC (Auto) (0-4) /hpf U Hyaline Cast (Auto) (0-5) /lpf U Epithel Cells (Auto) (0-5) /lpf Urine Bacteria (Auto) (Negative) Ur Renal Epithelial Cell COVID-19 Eval Order CovFluRsv at [facility] SARS-CoV-2 (PCR) NEGATIVE (Negative) Influenza Type A (PCR) Negative (Neg) Influenza Type B (PCR) Negative (Neg) RSV (RT-PCR) Negative (Neg) 10/21/20 10/21/20 Range/Units 09:30 10:37 WBC (4.8-10.8) K/uL RBC (4.7-6.1) M/uL Hgb (14.0-18.0) g/dL Hct (42-52) % MCV (80-100) fL MCH (25-34) pg MCHC (32-36) g/dL RDW Std Deviation (36.4-46.3) fL RDW Coeff of Shayy (11.5-14.5) % Plt Count (130-400) K/uL MPV (7.4-10.4) fL Immature Gran % (Auto) % Neut % (Auto) % Lymph % (Auto) % Graham % (Auto) % Eos % (Auto) % Baso % (Auto) % Neut # (Auto) (1.4-6.5) K/uL Lymph # (Auto) (1.2-3.4) K/uL Graham # (Auto) (0.11-0.59) K/uL Eos # (Auto) (0-0.5) K/uL Baso # (Auto) (0-0.2) K/uL Immature Gran # (Auto) (0.00-0.02) K/uL PT (9.0-12.0) Seconds INR (0.9-1.1) APTT (21.0-31.0) Seconds PTT Ratio VBG pH (7.36-7.41) VBG pCO2 (38-50) mmHg VBG pO2 mmHg VBG HCO3 mmol/L VBG O2 Saturation % VBG Base Excess mEq/L Barometric Pressure mm/Hg Sodium (136-145) mmol/L Potassium (3.5-5.1) mmol/L Chloride (98-107) mmol/L Carbon Dioxide (21-32) mmol/L Anion Gap (3-11) BUN (7-18) mg/dl Creatinine (0.6-1.4) mg/dl Est Cr Clr Drug Dosing Est GFR ( Amer) Est GFR (Non-Af Amer) BUN/Creatinine Ratio (10-20) Glucose (70-99) mg/dl Lactate 1.8 (0.4-2.0) mmol/L Calcium (8.5-10.1) mg/dl Phosphorus (2.5-4.9) mg/dl Magnesium (1.8-2.4) mg/dl Total Bilirubin (0.2-1) mg/dl Direct Bilirubin (0-0.2) mg/dl AST (15-37) U/L ALT (12-78) U/L Alkaline Phosphatase (45-117) U/L Troponin I (0-0.045) ng/ml Total Protein (6.4-8.2) gm/dl Albumin (3.4-5.0) gm/dl Globulin (2.5-4.0) gm/dl Albumin/Globulin Ratio (0.9-2) Lipase (73-393) U/L Procalcitonin (0-0.5) ng/ml TSH (0.300-4.500) uIu/ml Prolactin ng/ml Urine Color Yellow Urine Appearance Clear (Clear) Urine pH >= 9.0 H (4.5-7.5) Ur Specific Preston 1.006 (1.000-1.030) Urine Protein 2+ H (Negative) Urine Glucose (UA) Trace H (Negative) Urine Ketones Negative (Negative) Urine Blood Trace H (Negative) Urine Nitrite Negative (Negative) Urine Bilirubin Negative (Negative) Urine Urobilinogen Negative (Negative) Ur Leukocyte Esterase Negative (Negative) Urine WBC (Auto) 1-5 (0-5) /hpf Urine RBC (Auto) 0-4 (0-4) /hpf U Hyaline Cast (Auto) 0 (0-5) /lpf U Epithel Cells (Auto) >30 H (0-5) /lpf Urine Bacteria (Auto) Negative (Negative) Ur Renal Epithelial Cell Not Reportable COVID-19 Eval Order SARS-CoV-2 (PCR) (Negative) Influenza Type A (PCR) (Neg) Influenza Type B (PCR) (Neg) RSV (RT-PCR) (Neg) Administered Medications Calcitriol (Calcitriol 0.25 Mcg Capsule) 0.25 mcg PO MoWeFr@0900 [facility] Stop: 11/20/20 13:59 Last Admin: 10/21/20 13:49 Dose: Not Given Documented by: [id number] Miscellaneous (No Heparin In Dialysis) 1 ea N/A TODAY@1500 [facility] Stop: 10/21/20 22:00 Last Admin: 10/21/20 19:15 Dose: Not Given Documented by: [id number] Discontinued Medications Sodium Chloride (Nss) 500 mls @ 999 mls/hr IV .Q31M ONE Stop: 10/21/20 11:31 Last Infusion: 10/21/20 11:43 Dose: 0 mls/hr Documented by: [id number] Admin: 10/21/20 11:07 Dose: 999 mls/hr Documented by: [id number] Discharge Plan Visit Data Chief Complaint: Unresponsive ED Provider: Migue Tamayo Discharge Problem: Acute metabolic encephalopathy, Seizure disorder, Stroke syndrome, ESRD on hemodialysis, Second degree AV block, Mobitz type I, Elevated lactic acid level Patient Disposition: Admitted As Inpatient Discharge Instructions Interventions: ED Discharge Assessment Last Done: 10/21/20 12:42
[2020-10-21 09:43] LABS: Appearance Urine Clear (Clear); Bacteria Urine Automated Negative (Negative); Bilirubin Urine Negative (Negative); Blood Urine Trace (Negative); Cast Urine Automated 0 /lpf (0-5); Color Urine Yellow; Epithelial Cell Urine Auto >30 /lpf (0-5); Glucose Urine UA Trace (Negative); Ketones Urine Negative (Negative); Leukocyte Esterase Urine Negative (Negative); Nitrite Urine Negative (Negative); RBC Urine Automated 0-4 /hpf (0-4); Specific Gravity Urine 1.006 (1.000-1.030); Urobilinogen Urine Negative (Negative); pH Urine >= 9.0 (4.5-7.5)
[2020-10-21 09:44] LABS: Protein Urine 2+ (Negative)
[2020-10-21 09:45] LABS: Influenza A virus by PCR Negative (Neg); Influenza B virus by PCR Negative (Neg); RSV by PCR Negative (Neg); SARS CoV2 RNA(COVID-19) InHosp NEGATIVE (Negative)
--- NOTE | 2020-10-21 10:16 | XRay Report ---
XR chest 1V portable HISTORY: SEPSIS COMPARISON: Chest 10/11/2020. FINDINGS: No pneumothorax. Small left pleural effusion and left base airspace opacities have slightly improved. The heart remains mildly enlarged. There are poststernotomy changes. Right jugular cathete r terminates at the distal SVC. This remains unchanged. There is mild central pulmonary vascular wilbert estion without overt edema. This remains unchanged. IMPRESSION: 1. Small left pleural effusion and left base airspace opacities have slightly improved. 2. No change in the cardiomegaly and mild pulmonary vascular congestion. ACT 112: Negative or not required by law. Electronically signed by: Byron Austin M.D. 10/21/2020 10:15 AM
[2020-10-21] MEDS ORDERED: SODIUM CHLORIDE 0.9% 500 ML IV ONE (11:01)
--- NOTE | 2020-10-21 13:12 | History & Physical Report ---
Date of Service October 21, 2020 Assessment & Plan (1) Altered mental status: Mr. 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 Patient was transiently hypoxemic with an SpO2 of 70% on room air. He improved after administration of 100% O2 via nonrebreather mask. After arriving in the ER and placed on room air, patient maintained a normal oxygen saturation -- suspect that he may have either aspirated or had a mucous plug that cleared. Another possibility is that he could have had a seizure and is now post-ictal. However I spoke to the nurse (Lexie) at [facility] and she states that the patient did not have a seizure or any seizure-like activity leading up to this, to the best of her knowledge. She told me that the patient was unresponsive this morning, looked like he was having a stroke, and he was hypertensive and bradycardic at that time. Patient has not been ill recently, his intake is stable, and there have been no recent fevers, chills, or cough. No recent viral syndromes. No recent nausea, vomiting, or diarrhea. Bowel habits are stable. At this point, patient's wants to continue dialysis and is willing to have him treated with medications, but she wants a code status of DNR/DNI. -- Admit to Med-Surg with Telemetry, on observation status. -- Aspiration precautions. -- Speech therapy evaluation. -- Blood cultures drawn. -- Follow procalcitonin and lactate levels. -- Serial labs. -- CT scan of head showed no changes. -- CXR showed cardiomegaly and mild pulmonary edema. (2) Hypoxemia: -- As outlined above. (3) ESRD on hemodialysis: -- He is dialyzed on Mondays, Wednesdays, and Fridays. -- He was not dialyzed today. -- Followed by [facility] Nephrology, who were consulted. (4) Chronic systolic CHF (congestive heart failure): -- He appears compensated at this time. -- LVEF 40% to 45%. -- Beta amrit are contraindicated due to history os second degree AV block. -- Continue Imdur ER 30 mg daily. -- Manage volume status through ultrafiltration. (5) CAD (coronary artery disease): -- s/p CABG 2007. -- Initial Troponin I is 0.077 ng/ml -- likely demand ischemia secondary to transient hypoxia. -- Continue Amlodipine 2.5 mg QHS. -- Continue Atorvastatin 80 mg QHS. -- Continue Imdur ER 30 mg daily. -- Continue Plavix 75 mg daily. (6) Seizure disorder: -- No reported seizure or seizure-like activity according to [facility] staff. -- Continue Keppra 500 mg taken 4 times per week. Admission and Anticipated Discharge Date Admission Date: October 21, 2020 History of Present Illness Chief Complaint: -- Unresponsive/Altered Mental Status. -- Hypoxemia. Primary Care Provider: [facility] Mr. Mata is a 75-year-old male with a history of ESRD on HD via Right Tunneled Perm-cath, Left Arm AV Fistula, Multiple CVA (most recent September 30, 2020) with Vascular Dementia, Chronic Systolic CHF (LVEF of 40%-45%), recent Right Hip Intertrochanteric Nailing (in August 2020 after a fall), Severe Expressive Aphasia and Residual Right-Sided Weakness, Seizure Disorder, Hypertension, CAD s/p CABG 2007, Renal Artery Stenosis s/p LRA Stent, Carotid Artery Disease, and Hyperlipidemia who presented to [facility] ER from [facility] halfway facility because of an altered mental status from his baseline poor mental status. According to the report sent in with the patient -- he was apparently hypoxemic at 70% on room air and improved after administration of 100% O2 via nonrebreather mask. After arriving in the ER and placed on room air, patient maintained a normal oxygen saturation. In the ER the patient would open his eyes to loud voice or noxious stimulus. He remains nonverbal at this time. I spoke to the nurse (Lexie) at [facility]. She reports that the patient was unresponsive this morning, looked like he was having a stroke, and he was hypertensive and bradycardic at that time. He did not have a seizure or any seizure-like activity leading up to this, to the best of this nurse's knowledge. Patient has not been ill recently, his intake is stable, and there have been no recent fevers, chills, or cough. No recent viral syndromes. No recent nausea, vomiting, or diarrhea. Bowel habits are stable. Review of his medical records and past ER/Hospital visits showed documentation of a guarded prognosis given the patient's recurrent CVAs and the patient was seen by palliative care. At this point, patient's wants to continue dialysis and is willing to have him treated with medications, but she does agree to a code status of DNR/DNI. Allergies Allergy/AdvReac Type Severity Reaction Status Date / Time adhesive Allergy Unknown BLISTERING Verified 10/21/20 08:30 OF SKIN latex Allergy Unknown Rash Verified 10/21/20 08:30 Home Medications Medication Instructions Recorded Confirmed Type Renal Caps 1 cap PO QAM #30 cap 11/20/19 10/21/20 Rx polyethylene glycol 3350 [Miralax] 17 gm PO DAILY #0 ea 12/04/19 10/21/20 Rx atorvastatin [Lipitor] 80 mg PO HS 02/18/20 10/21/20 History clopidogrel [Plavix] 75 mg PO DAILY 02/18/20 10/21/20 History levetiracetam [Keppra] 500 mg PO 4XWK 02/18/20 10/21/20 History famotidine 40 mg tablet 40 mg PO BID #180 tab 03/01/20 10/21/20 Rx docusate sodium [Stool Softener] 100 mg PO DAILY 04/13/20 10/21/20 History calcitriol 0.25 mcg capsule 0.25 mcg PO 3XWK #15 cap 08/09/20 10/21/20 Rx citalopram 10 mg tablet 10 mg PO HS #30 tab 09/05/20 10/21/20 Rx acetaminophen 650 mg PO Q6H PRN MDD 3000 MG 09/30/20 10/21/20 History APAP/24 HOURS amlodipine [Norvasc] 2.5 mg PO HS 09/30/20 10/21/20 History hydrocortisone [Proctosol HC] 1 appln AK Q24H PRN 09/30/20 10/21/20 History sennosides [Senokot] 8.6 mg PO Q48H PRN 09/30/20 10/21/20 History isosorbide mononitrate 30 mg PO DAILY #30 tab 10/04/20 10/21/20 Rx Past Med/Surg History Medical History Acidosis, lactic Benign prostatic hyperplasia CAD (coronary artery disease) s/p CABG 2007 Carotid artery stenosis s/p remote R & L endarterectomies with L re-occlusion sometime before 2010. Being monitored by [facility] neuro, on Plavix. Chronic kidney disease Congestive heart failure (CHF) Dementia Depression Diabetes mellitus, type 2 A1C 5.4% 11/2019. Not on any medication. Diabetic peripheral neuropathy Esophageal reflux Flash pulmonary edema 11/2019 Hemodialysis patient SAT/SAT/SATURDAY [facility] 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 (1 YEAR AFTER PR) ?1989' Hyperlipidemia Hypertension Memory problem PT REPORTS "DEMENTIA" "COMES AND GOES" Myocardial Infarction 1989? Renal artery stenosis s/p left renal artery stenting; moderate right renal artery stenosis but no significant left renal artery stenosis on 11/2019 duplex Seizure disorder Stable on Keppra, no seizure for "a long time." Follows with [facility] neurology. SNHL (sensorineural hearing loss) Surgical History History of aorto-femoral bypass History of bypass graft (non vein) Aortic-femoral or bifemoral History of carotid endarterectomy L 1998, R 2009 History of cataract surgery RT/LEFT History of colonoscopy History of esophagogastroduodenoscopy (EGD) History of tooth extraction History of vascular access device IJ FOR DIAYLSIS S/P CABG (coronary artery bypass graft) (2007) [facility] Family History Brother Hypertension Hypercholesteremia Sister Diabetes Unknown Hypertension Cardiac disorder Social History Smoking Status: Unknown if ever smoked Tobacco Type: Cigarettes Cigarettes Per Day: 30; Second Hand Exposure: No; Hx Alcohol Use: No Hx Substance Use: No Preferred Language: Irish Communication Ability: Unable to Communication Ability Comment: Unable to assess Visual Impairment: No Limitations Sample Clerk Required: No Beliefs That Will Affect Care: None marital status: Current Living Situation: Snf Current Living Situation Comment: at [facility] current occupational status: 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 Minimally responsive to loud voice. HEENT: Head is atraumatic, normocephalic. Eyes are closed. Facies symmetric. No perioral cyanosis. No evidence of lingual trauma or biting. NECK: No JVD. JVP is at the level of the clavicle sitting upright. CHEST/LUNGS: Breath sounds present bilaterally. No wheezes, rales, or crackles. CVS: S1 and S2 are slightly irregular without obvious murmurs, gallops, or rubs. PMI is nondisplaced. No lifts, heaves, or thrills. No abdominal aortic or renal bruits. Well healed median sternotomy scar. ABDOMINAL EXAM: Bowel sounds are present. No masses, organomegaly, or tenderness. EXTREMITIES: No clubbing or cyanosis. No edema. Intact posterior tibial and radial pulses bilaterally. NEUROLOGIC EXAM: Patient responds only to loud voice and noxious stimuli. He doesn't open his eyes, doesn't respond to commands. Results & Data Results & Data ([facility]) Vital Signs (Past 12 Hours) Vital Signs Pulse Resp BP Pulse Ox 10/21/20 12:31 64 17 139/92 97 10/21/20 12:01 63 16 164/76 H 99 10/21/20 11:30 69 13 160/83 H 100 10/21/20 11:01 64 12 163/81 H 99 10/21/20 10:30 68 14 169/99 H 95 10/21/20 09:30 57 L 18 184/82 H 100 10/21/20 09:00 73 16 169/98 H 94 10/21/20 08:50 73 17 155/79 H 98 10/21/20 08:27 61 16 96 10/21/20 08:14 43 L 16 113/55 L 98 Laboratory Results Laboratory Results - last 24 hr 10/21/20 10/21/20 10/21/20 08:15 08:15 08:15 WBC 8.24 RBC 3.77 L Hgb 11.9 L Hct 37.2 L MCV 98.7 MCH 31.6 MCHC 32.0 RDW Std Deviation 60.9 H RDW Coeff of Shayy 17.0 H Plt Count 300 MPV 10.7 H Immature Gran % (Auto) 0.6 Neut % (Auto) 60.6 Lymph % (Auto) 26.6 [place] % (Auto) 10.8 Eos % (Auto) 1.2 Baso % (Auto) 0.2 Neut # (Auto) 4.99 Lymph # (Auto) 2.19 [place] # (Auto) 0.89 H Eos # (Auto) 0.10 Baso # (Auto) 0.02 Immature Gran # (Auto) 0.05 H PT INR APTT PTT Ratio VBG pH VBG pCO2 VBG pO2 VBG HCO3 VBG O2 Saturation VBG Base Excess Barometric Pressure Sodium 137 Potassium 4.8 Chloride 101 Carbon Dioxide 28 Anion Gap 8.0 BUN 42 H Creatinine 3.61 H Est Cr Clr Drug Dosing Not Reportable Est GFR ( Amer) 18.0 Est GFR (Non-Af Amer) 15.5 BUN/Creatinine Ratio 11.7 Glucose 118 H Lactate Calcium 8.8 Phosphorus 4.7 Magnesium 2.1 Total Bilirubin 0.5 Direct Bilirubin 0.2 AST 25 ALT 25 Alkaline Phosphatase 83 Troponin I 0.077 H* Total Protein 6.8 Albumin 2.4 L Globulin 4.4 H Albumin/Globulin Ratio 0.5 L Lipase 238 Procalcitonin 0.80 H TSH 2.480 Prolactin Urine Color Urine Appearance Urine pH Ur Specific [place] Urine Protein Urine Glucose (UA) Urine Ketones Urine Blood Urine Nitrite Urine Bilirubin Urine Urobilinogen Ur Leukocyte Esterase Urine WBC (Auto) Urine RBC (Auto) U Hyaline Cast (Auto) U Epithel Cells (Auto) Urine Bacteria (Auto) Ur Renal Epithelial Cell COVID-19 Eval Order SARS-CoV-2 (PCR) Influenza Type A (PCR) Influenza Type B (PCR) RSV (RT-PCR) 10/21/20 10/21/20 10/21/20 08:15 08:15 08:15 WBC RBC Hgb Hct MCV MCH MCHC RDW Std Deviation RDW Coeff of Shayy Plt Count MPV Immature Gran % (Auto) Neut % (Auto) Lymph % (Auto) [place] % (Auto) Eos % (Auto) Baso % (Auto) Neut # (Auto) Lymph # (Auto) [place] # (Auto) Eos # (Auto) Baso # (Auto) Immature Gran # (Auto) PT 10.8 INR 1.1 APTT 26.8 PTT Ratio 1.0 VBG pH VBG pCO2 VBG pO2 VBG HCO3 VBG O2 Saturation VBG Base Excess Barometric Pressure Sodium Potassium Chloride Carbon Dioxide Anion Gap BUN Creatinine Est Cr Clr Drug Dosing Est GFR ( Amer) Est GFR (Non-Af Amer) BUN/Creatinine Ratio Glucose Lactate 2.5 H* Calcium Phosphorus Magnesium Total Bilirubin Direct Bilirubin AST ALT Alkaline Phosphatase Troponin I Total Protein Albumin Globulin Albumin/Globulin Ratio Lipase Procalcitonin TSH Prolactin 15.02 Urine Color Urine Appearance Urine pH Ur Specific [place] Urine Protein Urine Glucose (UA) Urine Ketones Urine Blood Urine Nitrite Urine Bilirubin Urine Urobilinogen Ur Leukocyte Esterase Urine WBC (Auto) Urine RBC (Auto) U Hyaline Cast (Auto) U Epithel Cells (Auto) Urine Bacteria (Auto) Ur Renal Epithelial Cell COVID-19 Eval Order SARS-CoV-2 (PCR) Influenza Type A (PCR) Influenza Type B (PCR) RSV (RT-PCR) 10/21/20 10/21/20 10/21/20 08:45 08:45 08:45 WBC RBC Hgb Hct MCV MCH MCHC RDW Std Deviation RDW Coeff of Shayy Plt Count MPV Immature Gran % (Auto) Neut % (Auto) Lymph % (Auto) [place] % (Auto) Eos % (Auto) Baso % (Auto) Neut # (Auto) Lymph # (Auto) [place] # (Auto) Eos # (Auto) Baso # (Auto) Immature Gran # (Auto) PT INR APTT PTT Ratio VBG pH 7.35 L VBG pCO2 52 H VBG pO2 26 VBG HCO3 28 VBG O2 Saturation < 60.0 VBG Base Excess 1.3 Barometric Pressure 721.5 Sodium Potassium Chloride Carbon Dioxide Anion Gap BUN Creatinine Est Cr Clr Drug Dosing Est GFR ( Amer) Est GFR (Non-Af Amer) BUN/Creatinine Ratio Glucose Lactate Calcium Phosphorus Magnesium Total Bilirubin Direct Bilirubin AST ALT Alkaline Phosphatase Troponin I Total Protein Albumin Globulin Albumin/Globulin Ratio Lipase Procalcitonin TSH Prolactin Urine Color Urine Appearance Urine pH Ur Specific [place] Urine Protein Urine Glucose (UA) Urine Ketones Urine Blood Urine Nitrite Urine Bilirubin Urine Urobilinogen Ur Leukocyte Esterase Urine WBC (Auto) Urine RBC (Auto) U Hyaline Cast (Auto) U Epithel Cells (Auto) Urine Bacteria (Auto) Ur Renal Epithelial Cell COVID-19 Eval Order CovFluRsv at [facility] SARS-CoV-2 (PCR) NEGATIVE Influenza Type A (PCR) Negative Influenza Type B (PCR) Negative RSV (RT-PCR) Negative 10/21/20 10/21/20 09:30 10:37 WBC RBC Hgb Hct MCV MCH MCHC RDW Std Deviation RDW Coeff of Shayy Plt Count MPV Immature Gran % (Auto) Neut % (Auto) Lymph % (Auto) [place] % (Auto) Eos % (Auto) Baso % (Auto) Neut # (Auto) Lymph # (Auto) [place] # (Auto) Eos # (Auto) Baso # (Auto) Immature Gran # (Auto) PT INR APTT PTT Ratio VBG pH VBG pCO2 VBG pO2 VBG HCO3 VBG O2 Saturation VBG Base Excess Barometric Pressure Sodium Potassium Chloride Carbon Dioxide Anion Gap BUN Creatinine Est Cr Clr Drug Dosing Est GFR ( Amer) Est GFR (Non-Af Amer) BUN/Creatinine Ratio Glucose Lactate 1.8 Calcium Phosphorus Magnesium Total Bilirubin Direct Bilirubin AST ALT Alkaline Phosphatase Troponin I Total Protein Albumin Globulin Albumin/Globulin Ratio Lipase Procalcitonin TSH Prolactin Urine Color Yellow Urine Appearance Clear Urine pH >= 9.0 H Ur Specific [place] 1.006 Urine Protein 2+ H Urine Glucose (UA) Trace H Urine Ketones Negative Urine Blood Trace H Urine Nitrite Negative Urine Bilirubin Negative Urine Urobilinogen Negative Ur Leukocyte Esterase Negative Urine WBC (Auto) 1-5 Urine RBC (Auto) 0-4 U Hyaline Cast (Auto) 0 U Epithel Cells (Auto) >30 H Urine Bacteria (Auto) Negative Ur Renal Epithelial Cell Not Reportable COVID-19 Eval Order SARS-CoV-2 (PCR) Influenza Type A (PCR) Influenza Type B (PCR) RSV (RT-PCR) Diagnostic Findings CT OF THE HEAD WITHOUT CONTRAST CLINICAL HISTORY: decreased responsiveness, h/o dementia/cva FINDINGS: No acute intracranial hemorrhage, midline shift or mass effect is present. Old left frontal and right occipital lobe infarcts are noted. Dilatation of the left lateral ventricle is unchanged. This is due to the old infarct. Basal cisterns are patent. There are no extra-axial collections. There are no findings to suggest acute dural sinus thrombosis or acute territorial infarct. White matter hypodensity suggests small vessel disease. There is no calvarial fracture. IMPRESSION: -- No acute intracranial findings. -- Old infarcts, as described above. -- No change in appearance of the brain. CXR 10/21/2020: 1. Small left pleural effusion and left base airspace opacities have slightly improved. 2. No change in the cardiomegaly and mild pulmonary vascular congestion. Medications Administered Discontinued Medications Sodium Chloride (Nss) 500 mls @ 999 mls/hr IV .Q31M ONE Stop: 10/21/20 11:31 Last Infusion: 10/21/20 11:43 Dose: 0 mls/hr Documented by: [id number] Admin: 10/21/20 11:07 Dose: 999 mls/hr Documented by: [id number] Code Status & VTE Plan Code Status DNR/DNI VTE Prophylaxis Plan VTE Prophylaxis will be ordered: Yes Supervising Physician Co-Signing Physician Notes I personally saw and examined the patient. I verified all grande points and agree with NAN Gloria with the following exceptions and/or additions: 75-year-old male with multiple readmissions in the last 6 weeks including CVA, seizure activity, pneumonia. Returns today due to hypoxic, unresponsive episode with altered mental status. However in the emergency room patient is 100% on room air, no respiratory distress. O/E patient opens eyes to voice, GCS 9 ([id number]) A/P Goals of care discussion -previously patient for full resuscitation. I discussed this in detail what this would involve with his at bedside. Reportedly this is the first time she has met him in a number of months. She says " do not you think he has been through enough" and I want him to be made comfortable. She reports a goal of wanting to get him home although is unwilling for him to come off dialysis and in order for this to happen with hospice. Altered mental status, unresponsive episode -differential includes aspiration, arrhythmia, seizure (although denied by [facility]). PG Care Time/CCT Total # of Minutes Spent Total Time Spent with Patient: Total time spent is greater than 50% in coordination of care (as documented) at patient's floor/unit and/or counseling patient:40 Coding Level of Care Code 61636 OBS Care - Level 3 Diagnoses Altered mental status R41.82 Altered mental status type: unspecified Hypoxemia R09.02 ESRD on hemodialysis N18.6; Z99.2 Chronic systolic CHF (congestive heart failure) I50.22 CAD (coronary artery disease) I25.10 Seizure disorder G40.909 Time Spent (min) 70 (1) Altered mental status Altered mental status type: unspecified Qualified Code(s): R41.82 - Altered mental status, unspecified
[2020-10-21] MEDS ORDERED: ACETAMINOPHEN 325 MG TAB PO PRN (13:21)
[2020-10-21] MEDS ORDERED: ALUMINUM/MAGNESIUM SUSP 30 ML UDC PO PRN (13:21)
--- NOTE | 2020-10-21 13:39 | Electrocardiogram Report ---
Test Reason : Blood Pressure : / mmHG Vent. Rate : 050 BPM Atrial Rate : 050 BPM P-R Int : 366 ms QRS Dur : 088 ms QT Int : 532 ms P-R-T Axes : 088 069 246 degrees QTc Int : 485 ms Sinus bradycardia with 1st degree A-V block with Fusion complexes Inferior infarct (cited on or before 11-OCT-2020) Abnormal ECG When compared with ECG of 11-OCT-2020 09:18, Significant changes have occurred Confirmed by Kareem Gallardo ([id number]) on 10/21/2020 1:39:36 PM Referred By: REFERRED SELF Confirmed By:Kareem Gallardo
--- NOTE | 2020-10-21 13:48 | Electrocardiogram Report ---
Test Reason : Blood Pressure : / mmHG Vent. Rate : 071 BPM Atrial Rate : 052 BPM P-R Int : 000 ms QRS Dur : 092 ms QT Int : 442 ms P-R-T Axes : 000 086 -75 degrees QTc Int : 480 ms Poor data quality, interpretation may be adversely affected Sinus rhythm with 2nd degree A-V block (Mobitz I) Nonspecific ST and T wave abnormality Prolonged QT Abnormal ECG When compared with ECG of 21-OCT-2020 08:09, (unconfirmed) Mobitz I now present Nonspecific T wave abnormality has replaced inverted T waves in Inferior leads Nonspecific T wave abnormality has replaced inverted T waves in Lateral leads Confirmed by Kareem Gallardo ([id number]) on 10/21/2020 1:47:38 PM Referred By: REFERRED SELF Confirmed By:Kareem Gallardo
[2020-10-21] MEDS ORDERED: CALCITRIOL 0.25 MCG CAPSULE PO SCH (14:00)
[2020-10-21] MEDS ORDERED: SODIUM CHLORIDE 0.9% 1000ML 1,000 ML IV PRN (14:45)
--- NOTE | 2020-10-21 15:05 | Nephrology Consultation ---
Date of Consultation October 21, 2020 Assessment & Plan (1) ESRD on hemodialysis: * Outpatient HD MWF at [facility] (3.5hr 3K 2.5Ca 1.0Mg F-180NR EDW 56kg, Dr. Maxwell) * Patient is not volume overloaded and does not have significant azotemia. Will provide 2 hours heparin free HD today and limit UF to 1 L * Will use IJ THC as vascular access. As outpatient Mr. Mata pulls his needles out of his AVF while on HD * Recheck PRP in am (2) Altered mental state: * Afebrile with normal WBC#. Urinalysis and microscopy negative for infection. CXR reveals improvement in LLL airspace opacities. * Monitor for infection * Medication list reviewed. Not currently on sedating medications * This is the 4th hospitalization in last 7 weeks. Progressive decline with underlying dementia over the past several months. Unable to discuss goals of care with Miguel directly due to his impaired cognitive status. His family is struggling w/ the decision to continue/stop HD. Unfortunately they are not able to see him due to visitor restrictions from the COVID pandemic. Will request Palliative Care consultation. Patient's condition is unlikely to improve w/ HD. Request that Palliative Care discuss with family whether to transition to comfort measures and stop HD since dialysis is no longer providing quality of life. History of Present Illness Reason for Consultation: ESRD on HD Attending Physician: Jarrod Henderson MD History of Present Illness Mr. Mata is a 75 year old white male who is seen at the request of Dr. Henderson to provide inpatient HD. Mr. Mata has aphasia and is currently obtunded. He is unable to provide details of his medical history. All medical information has been obtained from the EMR. Medical records were reviewed today and are summarized as follows: Mr. Mata has ESRD due to vascular disease. He dialyzes MWF at [facility] (3.5hr 3K 2.5Ca 1.0Mg F-180NR EDW 56kg). 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 Mr. Mata was last hospitalized 10/11/20 - 10/17/20 for management of LLL pneumonia and progressive debilitation. He was discharged to [facility]. This afternoon he was brought to the ED due to unresponsiveness and hypoxemia (SaO2 70% on RA - improved w/ NRB FM. Possible mucous plug that cleared). Family has changed Mr. Mata's resuscitation status to DNR/DNI however they request continued medical management and HD. Allergies Allergy/AdvReac Type Severity Reaction Status Date / Time adhesive Allergy Unknown BLISTERING Verified 10/21/20 08:30 OF SKIN latex Allergy Unknown Rash Verified 10/21/20 08:30 Home Medications Medication Instructions Recorded Confirmed Type Renal Caps 1 cap PO QAM #30 cap 11/20/19 10/21/20 Rx polyethylene glycol 3350 [Miralax] 17 gm PO DAILY #0 ea 12/04/19 10/21/20 Rx atorvastatin [Lipitor] 80 mg PO HS 02/18/20 10/21/20 History clopidogrel [Plavix] 75 mg PO DAILY 02/18/20 10/21/20 History levetiracetam [Keppra] 500 mg PO 4XWK 02/18/20 10/21/20 History famotidine 40 mg tablet 40 mg PO BID #180 tab 03/01/20 10/21/20 Rx docusate sodium [Stool Softener] 100 mg PO DAILY 04/13/20 10/21/20 History calcitriol 0.25 mcg capsule 0.25 mcg PO 3XWK #15 cap 08/09/20 10/21/20 Rx citalopram 10 mg tablet 10 mg PO HS #30 tab 09/05/20 10/21/20 Rx acetaminophen 650 mg PO Q6H PRN MDD 3000 MG 09/30/20 10/21/20 History APAP/24 HOURS amlodipine [Norvasc] 2.5 mg PO HS 09/30/20 10/21/20 History hydrocortisone [Proctosol HC] 1 appln FL Q24H PRN 09/30/20 10/21/20 History sennosides [Senokot] 8.6 mg PO Q48H PRN 09/30/20 10/21/20 History isosorbide mononitrate 30 mg PO DAILY #30 tab 01/19/21 02/05/21 Rx Patient History Medical History Acidosis, lactic Benign prostatic hyperplasia CAD (coronary artery disease) s/p CABG 2007 Carotid artery stenosis s/p remote R & L endarterectomies with L re-occlusion sometime before 2010. Being monitored by [facility] neuro, on Plavix. Chronic kidney disease Congestive heart failure (CHF) Dementia Depression Diabetes mellitus, type 2 A1C 5.4% 11/2019. Not on any medication. Diabetic peripheral neuropathy Esophageal reflux Flash pulmonary edema 11/2019 Hemodialysis patient SAT/SAT/SATURDAY [facility] 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 (1 YEAR AFTER [place]) ?1989' Hyperlipidemia Hypertension Memory problem PT REPORTS "DEMENTIA" "COMES AND GOES" Myocardial Infarction 1989? Renal artery stenosis s/p left renal artery stenting; moderate right renal artery stenosis but no significant left renal artery stenosis on 11/2019 duplex Seizure disorder Stable on Keppra, no seizure for "a long time." Follows with [facility] neurology. SNHL (sensorineural hearing loss) Surgical History History of aorto-femoral bypass History of bypass graft (non vein) Aortic-femoral or bifemoral History of carotid endarterectomy L 1998, R 2009 History of cataract surgery RT/LEFT History of colonoscopy History of esophagogastroduodenoscopy (EGD) History of tooth extraction History of vascular access device IJ FOR DIAYLSIS S/P CABG (coronary artery bypass graft) (2007) [facility] Family History Brother Hypertension Hypercholesteremia Sister Diabetes Unknown Hypertension Cardiac disorder Social History Smoking Status: Unknown if ever smoked Tobacco Type: Cigarettes Cigarettes Per Day: 30; Second Hand Exposure: No; Hx Alcohol Use: No Hx Substance Use: No Preferred Language: Andorran Communication Ability: Unable to Communication Ability Comment: Unable to assess Visual Impairment: No Limitations Peanut Shaker Required: No Beliefs That Will Affect Care: None marital status: Current Living Situation: Long Term Current Living Situation Comment: at [facility] current occupational status: 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 Remains nonverbal) Eyes: PERRL, conjunctivae normal, anicteric sclerae Respiratory: normal respiratory effort, lungs clear to auscultation Cardiovascular: RRR, no murmur, no edema Extremities: + AV fistula (+ bruit) Gastrointestinal (Abdomen): normal bowel sounds, soft, nontender, no hepatosplenomegaly Skin: bilateral heel breakdown/pressure ulcers Neurologic: + obtunded Results & Data ([facility]) Vital Signs (Past 12 Hours) Vital Signs Temp Pulse Pulse Resp BP BP Pulse Ox 10/21/20 13:25 36.5 C 66 65 14 156/70 H 100 10/21/20 12:31 64 17 139/92 97 10/21/20 12:01 63 16 164/76 H 99 10/21/20 11:30 69 13 160/83 H 100 10/21/20 11:01 64 12 163/81 H 99 10/21/20 10:30 68 14 169/99 H 95 10/21/20 09:30 57 L 18 184/82 H 100 10/21/20 09:00 73 16 169/98 H 94 10/21/20 08:50 73 17 155/79 H 98 10/21/20 08:27 61 16 96 10/21/20 08:14 43 L 16 113/55 L 98 Laboratory Tests 10/18/20 10/18/20 10/21/20 07:40 07:40 08:15 WBC 6.80 Hgb 11.1 L Hct 35.8 L Plt Count 285 Sodium 136 137 Potassium 4.3 4.8 Chloride 104 101 Carbon Dioxide 24 28 BUN 38 H 42 H Creatinine 2.97 H D 3.61 H Glucose 94 118 H Urine Color Urine Appearance Urine pH Ur Specific [place] Urine Protein Urine Glucose (UA) Urine Ketones Urine Blood Urine Nitrite Urine WBC (Auto) Urine RBC (Auto) U Hyaline Cast (Auto) U Epithel Cells (Auto) Urine Bacteria (Auto) 10/21/20 10/21/20 08:15 09:30 WBC 8.24 Hgb 11.9 L Hct 37.2 L Plt Count 300 Sodium Potassium Chloride Carbon Dioxide BUN Creatinine Glucose Urine Color Yellow Urine Appearance Clear Urine pH >= 9.0 H Ur Specific [place] 1.006 Urine Protein 2+ H Urine Glucose (UA) Trace H Urine Ketones Negative Urine Blood Trace H Urine Nitrite Negative Urine WBC (Auto) 1-5 Urine RBC (Auto) 0-4 U Hyaline Cast (Auto) 0 U Epithel Cells (Auto) >30 H Urine Bacteria (Auto) Negative PG Care Time/CCT Total # of Minutes Spent Total Time Spent with Patient: Total time spent is greater than 50% in coordination of care (as documented) at patient's floor/unit and/or counseling patient: Coding Level of Care Code 90998 Inpt Consult Level 5 Diagnoses ESRD on hemodialysis N18.6; Z99.2 Altered mental state R41.0 Altered mental status type: delirium (1) Altered mental state Altered mental status type: delirium Qualified Code(s): R41.0 - Disorientation, unspecified
[2020-10-21] MEDS: FAMOTIDINE 40 MG TABLET PO SCH (21:50)
[2020-10-21] MEDS: ATORVASTATIN 40 MG TAB PO SCH (21:51)
[2020-10-21] MEDS: amLODIPine BESYLATE 5 MG TAB PO SCH (21:51)
[2020-10-21] MEDS: CITALOPRAM 20 MG TAB PO SCH (21:53)
[2020-10-22 06:44] LABS: Hematocrit (blood only) 37.1 % (42-52); Hemoglobin 11.5 g/dL (14.0-18.0); Platelet Count 237 K/uL (130-400); Red Blood Count 3.71 M/uL (4.7-6.1); White Blood Count 7.68 K/uL (4.8-10.8)
[2020-10-22] MEDS: DOCUSATE SODIUM 100 MG CAP PO SCH (08:05)
[2020-10-22] MEDS: levETIRAcetam 500 MG TAB PO SCH (08:05)
[2020-10-22] MEDS: FAMOTIDINE 40 MG TABLET PO SCH ×2 (08:05→20:28)
[2020-10-22] MEDS: ISOSORBIDE MONO EXTENDED REL 30 MG TABCR PO SCH (08:05)
[2020-10-22] MEDS: NEPHROCAPS PO SCH (08:06)
[2020-10-22] MEDS: CLOPIDOGREL BISULFATE 75 MG TAB PO SCH (08:06)
[2020-10-22] MEDS: POLYETHYLENE (MIRALAX) 17 GM PACK PO SCH (08:08)
[2020-10-22 08:17] LABS: BUN Creatinine Ratio 9.5 (10-20); Blood Urea Nitrogen 28 mg/dl (7-18); Calcium 8.2 mg/dl (8.5-10.1); Carbon Dioxide 20 mmol/L (21-32); Chloride 109 mmol/L (98-107); Est GFR (African American) 23.3; Est GFR (Non-African American) 20.1; Glucose 78 mg/dl (70-99); Potassium 4.3 mmol/L (3.5-5.1); Sodium 140 mmol/L (136-145)
--- NOTE | 2020-10-22 09:23 | Nephrology Progress Note ---
Date of Service October 22, 2020 Assessment & Plan (1) ESRD on hemodialysis: ESRD on HD, admitted with another episode of AMS, currently seems to be at his baseline. Had HD yesterday. --overall he seems to be at his baseline. Plan for next HD Saturday, monitor electrolyte over the weekend. --dose meds for GFR <10 Will follow (2) Altered mental status: (3) Hypertension: (4) Anemia: Admission and Anticipated Discharge Date Admission Date: October 21, 2020 Jesus Rivera was seen and evaluated this am. He seems comfortable, at his baseline. BP fair, electrolyte acceptable. Review of Systems Review of Systems: Other Physical Exam Constitutional: WD/WN, vitals as above no acute distress Respiratory: normal respiratory effort, lungs clear to auscultation Cardiovascular: RRR, no murmur, no edema Neurologic: awake; no focal motor deficits Results & Data ([facility]) Vital Signs (Past 12 Hours) Vital Signs Temp Pulse Pulse Pulse Resp BP BP 10/22/20 07:36 36.5 C 64 20 114/66 10/22/20 07:30 66 10/22/20 04:00 36.9 C 72 16 105/66 10/21/20 23:00 36.4 C L 60 16 110/63 Pulse Ox 10/22/20 07:36 94 10/22/20 07:30 10/22/20 04:00 97 10/21/20 23:00 97 PG Care Time/CCT Total # of Minutes Spent Total Time Spent with Patient: Total time spent is greater than 50% in coordination of care (as documented) at patient's floor/unit and/or counseling patient: Coding Level of Care Code 26310 Subseq Hosp Care Lvl 2 Diagnoses ESRD on hemodialysis N18.6; Z99.2 Altered mental status R41.82 Altered mental status type: unspecified Hypertension I10 Anemia D64.9 (1) Altered mental status Altered mental status type: unspecified Qualified Code(s): R41.82 - Altered mental status, unspecified
--- NOTE | 2020-10-22 16:53 | Hospitalist Progress Note ---
Date of Service October 22, 2020 Assessment & Plan (1) Altered mental status: Mr. Mata is a 75-year-old male with a history of ESRD on HD via Right Tunneled Perm-cath, Left Arm AV Fistula, Multiple CVA (most recent September 30, 2020) with Vascular Dementia, Chronic Systolic CHF (LVEF of 40%-45%), recent Right Hip Intertrochanteric Nailing (in August 2020 after a fall), Severe Expressive Aphasia and Residual Right-Sided Weakness, Seizure Disorder, Hypertension, CAD s/p CABG 2007, Renal Artery Stenosis s/p LRA Stent, Carotid Artery Disease, and Hyperlipidemia who presented to [facility] from [facility] because of an altered mental status from his baseline poor mental status (which per senior living staff and report is with his eyes open and minimally verbal). Patient was transiently hypoxemic with an SpO2 of 70% on room air. He improved after administration of 100% O2 via nonrebreather mask. After arriving in the ER and placed on room air, patient maintained a normal oxygen saturation -- suspect that he may have either aspirated or had a mucous plug that cleared. Another possibility is that he could have had a seizure and is now post-ictal. Nurse (Lexie) at [facility] and she states that the patient did not have a seizure or any seizure-like activity leading up to this, to the best of her knowledge. She told me that the patient was unresponsive this morning, looked like he was having a stroke, and he was hypertensive and bradycardic at that time. Patient has not been ill recently, his intake is stable, and there have been no recent fevers, chills, or cough. No recent viral syndromes. No recent nausea, vomiting, or diarrhea. Bowel habits are stable. At this point, patient's wants to continue dialysis and is willing to have him treated with medications, but she wants a code status of DNR/DNI. -- Admit to Med-Surg with Telemetry, on observation status. -- Aspiration precautions. -- Blood cultures drawn. -- Follow procalcitonin and lactate levels. -- Serial labs. -- CT scan of head showed no changes. -- CXR showed cardiomegaly and mild pulmonary edema. Pt was seen by palliative with recent last admission ST pending (2) Hypoxemia: -- As outlined above. (3) ESRD on hemodialysis: -- He is dialyzed on Mondays, Wednesdays, and Fridays. -- He was not dialyzed today. -- Followed by [facility], who were consulted. (4) Chronic systolic CHF (congestive heart failure): -- He appears compensated at this time. -- LVEF 40% to 45%. -- Beta amrit are contraindicated due to history os second degree AV block. -- Continue Imdur ER 30 mg daily. -- Manage volume status through ultrafiltration. (5) CAD (coronary artery disease): -- s/p CABG 2007. -- Initial Troponin I is 0.077 ng/ml -- likely demand ischemia secondary to transient hypoxia. -- Continue Amlodipine 2.5 mg QHS. -- Continue Atorvastatin 80 mg QHS. -- Continue Imdur ER 30 mg daily. -- Continue Plavix 75 mg daily. (6) Seizure disorder: -- No reported seizure or seizure-like activity according to [facility] staff. -- Continue Keppra 500 mg taken 4 times per week. Admission and Anticipated Discharge Date Admission Date: October 21, 2020 Subjective Pt is without current concerns. Pt denies fever, SOB, chest pain, abd pain, n/v/c/d, LE pain or swelling. No new concerns per nursing. Review of Systems Review of Systems: Pertinent positives and negatives reviewed in HPI--all others negative Physical Exam Constitutional: WD/WN, vitals as above Eyes: normal visual prieto by confrontation and + anicteric sclerae Neck: normal visual inspection and trachea midline Respiratory: normal respiratory effort, lungs clear to auscultation Cardiovascular: Rate/Rhythm: regular rate and regular rhythm Gastrointestinal (Abdomen): Inspection/Auscultation: abdomen not distended Percussion/Palpation: abdomen soft; abdomen nontender Musculoskeletal: Head/Neck/Chest: normocephalic and head atraumatic negative for edema, peripheral pulses intact Skin: no rashes, warm and dry Neurologic: awake Psychiatric: A+Ox3, euthymic affect Results & Data Results & Data ([facility]) Vital Signs (Past 12 Hours) Vital Signs Temp Pulse Pulse Resp BP Pulse Ox 10/22/20 16:00 36.5 C 88 18 103/63 92 10/22/20 11:23 36.6 C 56 L 18 90/50 L 99 10/22/20 07:36 36.5 C 64 20 114/66 94 10/22/20 07:30 66 PG Care Time/CCT Total # of Minutes Spent Total Time Spent with Patient: Total time spent is greater than 50% in coordination of care (as documented) at patient's floor/unit and/or counseling patient: Coding Level of Care Code 12748 Subseq Obs Care Lvl 2 Diagnoses Altered mental status R41.82 Altered mental status type: unspecified Hypoxemia R09.02 ESRD on hemodialysis N18.6; Z99.2 Chronic systolic CHF (congestive heart failure) I50.22 CAD (coronary artery disease) I25.10 Seizure disorder G40.909 (1) Altered mental status Altered mental status type: unspecified Qualified Code(s): R41.82 - Altered mental status, unspecified
[2020-10-22] MEDS: CITALOPRAM 20 MG TAB PO SCH (20:27)
[2020-10-22] MEDS: ATORVASTATIN 40 MG TAB PO SCH (20:29)
[2020-10-22] MEDS: amLODIPine BESYLATE 5 MG TAB PO SCH (20:30)
[2020-10-23] MEDS: POLYETHYLENE (MIRALAX) 17 GM PACK PO SCH (08:18)
[2020-10-23] MEDS: NEPHROCAPS PO SCH (08:18)
[2020-10-23] MEDS: DOCUSATE SODIUM 100 MG CAP PO SCH (08:18)
[2020-10-23] MEDS: ISOSORBIDE MONO EXTENDED REL 30 MG TABCR PO SCH (08:18)
[2020-10-23] MEDS: levETIRAcetam 500 MG TAB PO SCH (08:18)
[2020-10-23] MEDS: FAMOTIDINE 40 MG TABLET PO SCH (08:18)
[2020-10-23] MEDS: CLOPIDOGREL BISULFATE 75 MG TAB PO SCH (08:18)
--- NOTE | 2020-10-23 11:43 | Nephrology Progress Note ---
Date of Service October 23, 2020 Assessment & Plan (1) ESRD on hemodialysis: ESRD on HD, admitted with another episode of AMS, currently seems to be at his baseline. Had HD Saturday. --overall he seems to be at his baseline. Plan for next HD Saturday. --OK to be DC --dose meds for GFR <10 Will follow (2) Altered mental status: (3) Hypertension: (4) Anemia: Admission and Anticipated Discharge Date Admission Date: October 21, 2020 Jesus Rivera was seen and evaluated this am. He seems comfortable, at his baseline, much more awake and alert. BP fair, electrolyte acceptable. Review of Systems Review of Systems: All systems reviewed & are unremarkable except as noted in Subjective Physical Exam Constitutional: WD/WN, vitals as above no acute distress Respiratory: normal respiratory effort, lungs clear to auscultation Cardiovascular: RRR, no murmur, no edema Neurologic: awake; no focal motor deficits Results & Data ([facility]) Vital Signs (Past 12 Hours) Vital Signs Temp Pulse Pulse Resp BP BP Pulse Ox 10/23/20 11:23 36.6 C 83 18 115/79 94 10/23/20 07:49 59 L 10/23/20 07:45 36.7 C 77 18 107/58 L 97 10/23/20 03:54 36.7 C 66 18 120/76 97 10/23/20 02:17 64 10/22/20 23:44 37 C 72 20 104/62 98 PG Care Time/CCT Total # of Minutes Spent Total Time Spent with Patient: Total time spent is greater than 50% in coordination of care (as documented) at patient's floor/unit and/or counseling patient: Coding Level of Care Code 76010 Subseq Hosp Care Lvl 2 Diagnoses ESRD on hemodialysis N18.6; Z99.2 Altered mental status R41.82 Altered mental status type: unspecified Hypertension I10 Anemia D64.9 (1) Altered mental status Altered mental status type: unspecified Qualified Code(s): R41.82 - Altered mental status, unspecified
--- NOTE | 2020-10-23 11:56 | Discharge Summary ---
Date of Service October 23, 2020 Admission HPI Per Admitting Provider Mr. 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 According to the report sent in with the patient -- he was apparently hypoxemic at 70% on room air and improved after administration of 100% O2 via nonrebreather mask. After arriving in the ER and placed on room air, patient maintained a normal oxygen saturation. In the ER the patient would open his eyes to loud voice or noxious stimulus. He remains nonverbal at this time. I spoke to the nurse (Lexie) at [facility]. She reports that the patient was unresponsive this morning, looked like he was having a stroke, and he was hypertensive and bradycardic at that time. He did not have a seizure or any seizure-like activity leading up to this, to the best of this nurse's knowledge. Patient has not been ill recently, his intake is stable, and there have been no recent fevers, chills, or cough. No recent viral syndromes. No recent nausea, vomiting, or diarrhea. Bowel habits are stable. Review of his medical records and past ER/Hospital visits showed documentation of a guarded prognosis given the patient's recurrent CVAs and the patient was seen by palliative care. At this point, patient's wants to continue dialysis and is willing to have him treated with medications, but she does agree to a code status of DNR/DNI. Principal Diagnosis Pt states he feels at his usual. He is agreeable to d/c back to [facility]. He has not required O2 since admission. He has been interacting with staff at what seems to be his baseline. No issues with PO. Pt denies fever, SOB, chest pain, abd pain, n/v/c/d, LE pain or swelling. I spoke with pt's via phone and she tells me that she is hoping to bring him home once she has some in home help arranged. She had concerns about pt's pressure ulcers and skin tears, but no other present concerns. She felt that based on our discussion that pt was ready to go back to [facility] as what I relayed to her about pt's interactions sounded like his baseline. Discharge Exam Constitutional WD/WN, vitals as above Eyes normal visual prieto by confrontation and + anicteric sclerae Neck normal visual inspection and trachea midline Respiratory normal respiratory effort, lungs clear to auscultation Cardiovascular Rate/Rhythm: regular rate and regular rhythm Gastrointestinal (Abdomen) Inspection/Auscultation: abdomen not distended Percussion/Palpation: abdomen soft; abdomen nontender Musculoskeletal Head/Neck/Chest: normocephalic and head atraumatic Skin no rashes, warm and dry Neurologic awake; not confused Speech / Cognition: normal speech Psychiatric Orientation: alert and cooperative Speech: normal rate/rhythm/volume of speech Affect: euthymic affect Answers yes/no mostly, but does expand on some questions. Answers are appropriate Discharge Data Allergies Allergy/AdvReac Type Severity Reaction Status Date / Time adhesive Allergy Unknown BLISTERING Verified 10/21/20 08:30 OF SKIN latex Allergy Unknown Rash Verified 10/21/20 08:30 Consultations 10/21/20 11:06 ED Decision to Admit Stat 10/21/20 11:58 Consult Nephrology Routine 10/21/20 14:52 Consult Palliative Care Routine Ordered Studies 10/21/20 08:13 CT head/brain wo con Stat Hospital Course (1) Altered mental status: Patient was transiently hypoxemic with an SpO2 of 70% on room air in the ED. He improved after administration of 100% O2 via nonrebreather mask. After arriving in the ER and placed on room air, patient maintained a normal oxygen saturation -- suspect that he may have either aspirated or had a mucous plug that cleared. It is unclear as to what caused the hypoxia noted in the ED, however no issues off of O2 during admission Another possibility is that he could have had a seizure and is now post-ictal. Nurse (Lexie) at [facility] stated to hospitalist NAN on admission that the patient did not have a seizure or any seizure-like activity leading up to this, to the best of her knowledge. She reported that the patient was unresponsive this morning, looked like he was having a stroke, and he was hypertensive and bradycardic at that time. Patient has not been ill recently, his intake is stable, and there have been no recent fevers, chills, or cough. No recent viral syndromes. No recent nausea, vomiting, or diarrhea. Bowel habits are stable. At this point, patient's wants to continue dialysis and is willing to have him treated with medications, but she wants a code status of DNR/DNI. -- Admit to Med-Surg with Telemetry, on observation status. -- Aspiration precautions. -- Blood cultures neg -- Lactic acid elevated on arrival, however WNL on repeat w/o abx -- CT scan of head showed no changes. -- CXR showed cardiomegaly and mild pulmonary edema UA neg TSH WNL Trop with mild elevation at 0.077, which is chronic for pt Pt was seen by palliative with recent last admission Pt seen by ST again on this admission and no new recs (2) Hypoxemia: -- As outlined above. (3) ESRD on hemodialysis: -- He is dialyzed on Mondays, Wednesdays, and Fridays. -- Followed by [facility], who were consulted. (4) Chronic systolic CHF (congestive heart failure): -- He appears compensated at this time. -- LVEF 40% to 45%. -- Beta amrit are contraindicated due to history os second degree AV block. -- Continue Imdur ER 30 mg daily. -- Manage volume status through ultrafiltration. (5) CAD (coronary artery disease): -- s/p CABG 2007. -- Initial Troponin I is 0.077 ng/ml -- likely demand ischemia secondary to transient hypoxia. -- Continue Amlodipine 2.5 mg QHS. -- Continue Atorvastatin 80 mg QHS. -- Continue Imdur ER 30 mg daily. -- Continue Plavix 75 mg daily. (6) Seizure disorder: -- No reported seizure or seizure-like activity according to [facility] staff. -- Continue Keppra 500 mg taken 4 times per week. Total Time Total Time Spent Total Time Spent (In Minutes): >30 Total Time Includes: Examination of the Patient, Discharge Planning, Medication Reconciliation, Communication With Other Providers and Other Discharge Plan Discharge Items Patient Disposition: Transfer Intermediate Fac Reason For Visit: ALTERED MENTAL STATE Discharge Diagnosis: AMS Activity: As commented below Activity Comment: as per PT/OT Non-emergency contact: Primary Care Provider Call non-emergency contact if: you have any medication questions and your symptoms worsen Follow-up/Referrals: George Nath [Primary Care Provider] - Diet: Regular Diet Comment: minced/moisted with aspiration precautions Addtl Attending Provider Instructions: Should be seen by PCP in 3 days Pending Studies at Discharge: No Stand-Alone Forms: My [facility] Skilled Items Patient informed of condition?: Yes DNR: Yes Discharge Level of Care: Skilled Communicable Disease: No Discharge Prognosis: Stable Lines: None Urinary Catheter: Yes Medications and DC Order Prescriptions: Continued calcitriol [Rocaltrol] 0.25 mcg capsule 0.25 mcg PO 3XWK Qty: 15 RF: 5 citalopram 10 mg tablet 10 mg PO HS Qty: 30 RF: 5 famotidine 40 mg tablet 40 mg PO BID Qty: 180 RF: 3 docusate sodium [Stool Softener] 100 mg capsule 100 mg PO DAILY RF: 0 Renal Caps 1 mg Capsule 1 cap PO QAM Qty: 30 RF: 0 polyethylene glycol 3350 [Miralax] 17 gram powder in packet 17 gm PO DAILY Qty: 0 RF: 0 atorvastatin [Lipitor] 80 mg tablet 80 mg PO HS RF: 0 levetiracetam [Keppra] 500 mg tablet 500 mg PO 4XWK RF: 0 clopidogrel [Plavix] 75 mg tablet 75 mg PO DAILY RF: 0 acetaminophen 325 mg tablet 650 mg PO Q6H MDD 3000 MG APAP/24 HOURS PRN (Reason: Fever Or Pain) RF: 0 amlodipine [Norvasc] 5 mg tablet 2.5 mg PO HS RF: 0 sennosides [Senokot] 8.6 mg tablet 8.6 mg PO Q48H PRN (Reason: Constipation) RF: 0 hydrocortisone [Proctosol HC] 2.5 % cream with perineal applicator 1 appln NV Q24H PRN (Reason: Itching) RF: 0 isosorbide mononitrate 30 mg tablet extended release 24 hr 30 mg PO DAILY Qty: 30 RF: 0 Discharge Orders: Discharge Order (Routine); Ordered 10/23/20 Ordered By: Precious Gallo Admission Data Admit Date/Time: 10/21/20 11:52 Attending Provider: Precious Gallo Admit Provider: Jarrod Henderson Primary Care Provider: George Nath Other Providers: Jarrod Henderson ; Nas Villagran ; Deborah Duran ; Pham, Other Interventions: Discharge Summary Assessment (RN) Last Done: 10/23/20 11:58 Coding Level of Care Code D/C Day Management >30 mins Diagnoses Altered mental status R41.82 Altered mental status type: unspecified Hypoxemia R09.02 ESRD on hemodialysis N18.6; Z99.2 Chronic systolic CHF (congestive heart failure) I50.22 CAD (coronary artery disease) I25.10 Seizure disorder G40.909
== END 2020-10-23 15:56 ==
LOC: ED 08:03 → 2N 08:03 → SUATTDRO 11:52 → 2N 12:42

== ENCOUNTER 2020-12-13 00:48 | Inpatient (IN) ==
--- NOTE | 2020-12-13 01:18 | Emergency Department Note ---
Impression & Plan Hypoxia, Pulmonary edema, Pneumonia ED Provider Note NAME: VIVIANA LANIER AGE: 75 SEX: M ARRIVES VIA: Ambulance INFORMANT: Patient, and his ED PROVIDER(S): Mojgan Morrow DO CHIEF COMPLAINT: Shortness of breath PLAN: Disposition: Admitted to the [facility]ist service Condition: Stable MEDICAL DECISION MAKING: This is a 75-year-old male patient with end-stage renal disease who presents to the emergency department with a sudden onset of shortness of breath. Upon EMS arrival at his home, O2 saturations were in the mid 70s despite being on supplemental oxygen. Here in the emergency department, initially on 6 L by oxygen mask, O2 saturations were in the mid 80s. The patient did seem to cough and saturations stabilized in the mid 90s. Chest x-ray was concerning for pulmo nary edema and a right middle lobe opacity. Covid testing was negative. By history, I had concern for the possibility of aspiration pneumonia. The patient was treated with IV Unasyn. The patient was found to be slightly hyperkalemic despite having been to dialysis today. I discussed the case with the [facility]ist and they will evaluate for further management. Triage Nursing notes reviewed and agree them. Additional history obtained from the patient's Prior medical records reviewed Vital Signs: reviewed and remarkable for hypoxia and tachycardia Differential diagnosis: COVID-19, congestive heart failure, flash pulmonary edema, pneumonia, pneumothorax ER treatment provided: IV Unasyn Diagnostics interpreted by me: ECG: Wide-complex tachycardia at a rate of 139 with a right bundle branch block. This was compared to an EKG from earlier this month. The QRS complex is wider although the patient does have a history of a right bundle branch block. There is some exacerbation of ST segment depression in the anterior leads concerning for ischemic changes. There is no specific ectopy. QRS duration is 122 ms Repeat EKG: Normal sinus rhythm at a rate of 97 with first-degree AV block and right bundle branch block. Occasional PACs. QRS duration has shortened to 100 ms Cardiac Monitoring: Wide-complex tachycardic rhythm at 122 Laboratory studies: See below Imaging studies: As per my interpretation Chest x-ray: Pulmonary edema with a area of opacity in the right middle lobe concerning for possible aspiration pneumonia HPI: 75/M arrives for evaluation of shortness of breath. This is a 75-year-old male patient with a history of end-stage renal disease and stroke who presents to the emergency department with a sudden onset of shortness of breath according to the . The patient went to dialysis today and was feeling well until this evening when he was preparing to go to bed and became suddenly short of breath. On presentation to the emergency department, the patient is coughing a moist cough ROS: See above HPI for pertinent positives & negatives. A total of 10 systems reviewed and were otherwise negative. PAST MEDICAL HISTORY:See Below PAST SURGICAL HISTORY:See Below FAMILY HISTORY:See Below SOCIAL HISTORY:See Below HOME MEDICATIONS:See list ALLERGIES:See list VITALS:See Below PHYSICAL EXAMINATION: HEENT: Head - normocephalic and atraumatic Pupils are equal, round, and reactive to light. Extraocular eye muscles are intact, and sclera are anicteric. Nose - moist nasal mucosa without discharge. Mouth - moist buccal mucosa. Oropharynx is nonerythematous and there is no tonsillar exudate or edema noted. Neck: Supple; no JVD, nuchal rigidity, cervical lymphadenopathy. Heart: Tachycardic rate and regular rhythm. There is a normal S1 and S2 with no murmurs, clicks, or gallops appreciated. Lungs: Diminished breath sounds at both bases with no obvious wheezes. Abdomen: Soft, completely nontender, nondistended, with good bowel sounds. There are no palpable pulsatile masses or hepatosplenomegaly. There is no guarding, rigidity, or rebound noted. Extremities: No evidence of cyanosis, clubbing, or edema. There are easily palpable peripheral pulses. Skin: warm and dry with good turgor and no rashes. ED COURSE: Times/Reassessments: 0100: Patient was evaluated in room C3. I do not complete PPE as there was some concern for COVID-19. A complete history and physical was performed. A septic protocol was performed. An order was placed for continuous cardiac monitoring. Patient was in a wide-complex tachycardia at a rate of 122. The patient was notably hypoxic even on an Oxi- mask. As I was preparing to step out of the room, patient coughed and his oxygen saturation seem to normalize. He also appeared to be much more comfortable. A portable chest x-ray was performed. 0145: I reevaluated the patient at this time and reviewed the results of the labs and x-ray with the patient and his . I will start the patient on IV Unasyn because of the laboratory and chest x-ray findings. We will perform a repeat EKG. I will discussed the case with the [facility] hospitalist and they can evaluate for further inpatient care. I have personally spent greater than 50 minutes of critical care time in the direct management of this patient. This includes bedside care, interpretation of diagnostic studies, and testing, discussion with consultants, patient, and family members, and other required patient management activities. This 50 ayaz eamon is in excess of all separately billable procedures. Mojgan Morrow DO Past Med/Surg History Medical History Acidosis, lactic Benign prostatic hyperplasia CAD (coronary artery disease) s/p CABG 2007 Carotid artery stenosis s/p remote R & L endarterectomies with L re-occlusion sometime before 2010. Being monitored by [facility] neuro, on Plavix. Chronic kidney disease Congestive heart failure (CHF) Dementia Depression Diabetes mellitus, type 2 A1C 5.4% 11/2019. Not on any medication. 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 Renal artery stenosis s/p left renal artery stenting; moderate right renal artery stenosis but no significant left renal artery stenosis on 11/2019 duplex Seizure disorder Stable on Keppra, no seizure for "a long time." Follows with [facility] neurology. SNHL (sensorineural hearing loss) Surgical History History of aorto-femoral bypass History of bypass graft (non vein) Aortic-femoral or bifemoral History of carotid endarterectomy L 1998, R 2009 History of cataract surgery RT/LEFT History of colonoscopy History of esophagogastroduodenoscopy (EGD) History of tooth extraction History of vascular access device IJ FOR DIAYLSIS S/P CABG (coronary artery bypass graft) (2007) [facility] Family History Brother Hypertension Hypercholesteremia Sister Diabetes Unknown Hypertension Cardiac disorder Social History Smoking Status: Former smoker Tobacco Type: Cigarettes Cigarettes Per Day: 30; Second Hand Exposure: No; Hx Alcohol Use: No Hx Substance Use: No Preferred Language: Maori Communication Ability: Impaired Visual Impairment: No Limitations Log Loader Required: No Beliefs That Will Affect Care: None marital status: Current Living Situation: Care Home Current Living Situation Comment: at [facility] current occupational status: 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" Feels Safe at Home: Yes caffeine: No Seatbelt Use: always Assistive Devices: BiPap, CPAP, Mechanical Lift and Wheelchair Allergies Allergies Allergy/AdvReac Type Severity Reaction Status Date / Time adhesive Allergy Unknown BLISTERING Verified 12/13/20 01:58 OF SKIN latex Allergy Unknown Rash Verified 12/13/20 01:58 Home Meds Home Medications Medication Instructions Recorded Confirmed atorvastatin [Lipitor] 80 mg PO DAILY 02/18/20 12/13/20 clopidogrel [Plavix] 75 mg PO DAILY 02/18/20 12/13/20 levetiracetam [Keppra] 500 mg PO SUTUTHSA 02/18/20 12/13/20 docusate sodium [Stool Softener] 100 mg PO DAILY 04/13/20 12/13/20 amlodipine 2.5 mg PO HS 11/28/20 12/13/20 calcitriol [Rocaltrol] 0.25 mcg PO MOWEFR 11/28/20 12/13/20 collagenase clostridium histo. 1 applic TOPICAL UD 11/28/20 12/13/20 [Santyl] Previous Rx's Medication Instructions Recorded Renal Caps 1 cap PO QAM #30 cap 11/20/19 famotidine 40 mg tablet 40 mg PO BID #180 tab 03/01/20 citalopram 10 mg tablet 10 mg PO HS #30 tab 09/05/20 isosorbide mononitrate 30 mg PO DAILY #30 tab 10/04/20 vancomycin 125 mg capsule 125 mg PO QID #54 cap 11/23/20 wound dressings 1 applic TOPICAL DAILY #1 tube 12/01/20 triamcinolone acetonide 0.1 % 1 applic TOPICAL BID 7 Days #30 g 12/08/20 topical cream Results & Data (ED) Vital Signs Vital Signs - 24 hr 12/13/20 00:55 12/13/20 00:58 12/13/20 01:00 Temperature Temperature Source Pulse Rate 140 H 139 H 141 H Pulse Rate from SpO2 Sensor 140 H 142 H 137 H Respiratory Rate 42 H 32 H 32 H Respiratory Effort / Characteristics Respiratory Depth Blood Pressure 159/97 H 147/99 H Blood Pressure Mean 117 115 Blood Pressure Position Pulse Oximetry 82 L 81 L 84 L Oxygen Delivery Method Oxygen Flow Rate Sepsis Recent Fever Within 48 Hours Sepsis New/Unexplained Change in Mental Status Sepsis Action Taken by Nursing 12/13/20 01:01 12/13/20 01:13 12/13/20 01:30 Temperature 37.7 C H Temperature Source Oral Pulse Rate 139 H 109 H Pulse Rate from SpO2 Sensor 116 H Respiratory Rate 38 H 26 H 27 H Respiratory Effort / Characteristics Spontaneous Non-Labored Respiratory Depth Normal Blood Pressure 159/97 H 111/78 Blood Pressure Mean 117 89 Blood Pressure Position Lying Pulse Oximetry 85 L 96 96 Oxygen Delivery Method Oxymask Oxymask Oxygen Flow Rate 8 6 Sepsis Recent Fever Within 48 Hours Yes Sepsis New/Unexplained Change in Mental Status Yes Sepsis Action Taken by Nursing Physician Notified 12/13/20 01:43 12/13/20 02:13 12/13/20 02:30 Temperature Temperature Source Pulse Rate 104 H Pulse Rate from SpO2 Sensor Respiratory Rate 26 H 26 H 26 H Respiratory Effort / Characteristics Non-Labored Non-Labored Non-Labored Respiratory Depth Blood Pressure Blood Pressure Mean Blood Pressure Position Pulse Oximetry 96 96 98 Oxygen Delivery Method Oxymask Oxymask Oxymask Oxygen Flow Rate 6 6 6 Sepsis Recent Fever Within 48 Hours Sepsis New/Unexplained Change in Mental Status Sepsis Action Taken by Nursing Laboratory Data Result diagrams: 12/13/20 01:45 12/13/20 01:45 Lab Results 12/13/20 12/13/20 12/13/20 Range/Units 01:23 01:23 01:45 WBC 17.66 H (4.8-10.8) K/uL RBC 3.59 L (4.7-6.1) M/uL Hgb 11.0 L (14.0-18.0) g/dL Hct 33.5 L (42-52) % MCV 93.3 (80-100) fL MCH 30.6 (25-34) pg MCHC 32.8 (32-36) g/dL RDW Std Deviation 61.7 H (36.4-46.3) fL RDW Coeff of Shayy 18.3 H (11.5-14.5) % Plt Count 569 H (130-400) K/uL MPV 9.3 (7.4-10.4) fL Immature Gran % (Auto) 0.4 % Neut % (Auto) 80.7 % Lymph % (Auto) 11.2 % Evans % (Auto) 7.4 % Eos % (Auto) 0.2 % Baso % (Auto) 0.1 % Neut # (Auto) 14.26 H (1.4-6.5) K/uL Lymph # (Auto) 1.98 (1.2-3.4) K/uL Evans # (Auto) 1.30 H (0.11-0.59) K/uL Eos # (Auto) 0.03 (0-0.5) K/uL Baso # (Auto) 0.02 (0-0.2) K/uL Immature Gran # (Auto) 0.07 H (0.00-0.02) K/uL PT (9.0-12.0) Seconds INR (0.9-1.1) APTT (21.0-31.0) Seconds PTT Ratio Sodium (136-145) mmol/L Potassium (3.5-5.1) mmol/L Chloride (98-107) mmol/L Carbon Dioxide (21-32) mmol/L Anion Gap (3-11) BUN (7-18) mg/dl Creatinine (0.6-1.4) mg/dl Est Cr Clr Drug Dosing Est GFR ( Amer) Est GFR (Non-Af Amer) BUN/Creatinine Ratio (10-20) Glucose (70-99) mg/dl Lactate (0.4-2.0) mmol/L Calcium (8.5-10.1) mg/dl Magnesium (1.8-2.4) mg/dl Total Bilirubin (0.2-1) mg/dl AST (15-37) U/L ALT (12-78) U/L Alkaline Phosphatase (45-117) U/L NT-Pro-B Natriuret Pep (0-900) pg/ml Total Protein (6.4-8.2) gm/dl Albumin (3.4-5.0) gm/dl Globulin (2.5-4.0) gm/dl Albumin/Globulin Ratio (0.9-2) Specimen Hemolysis COVID-19 Eval Order CovFluRsv at [facility] SARS-CoV-2 (PCR) NEGATIVE (Negative) Influenza Type A (PCR) Negative (Neg) Influenza Type B (PCR) Negative (Neg) RSV (RT-PCR) Negative (Neg) 12/13/20 12/13/20 12/13/20 Range/Units 01:45 01:45 02:30 WBC (4.8-10.8) K/uL RBC (4.7-6.1) M/uL Hgb (14.0-18.0) g/dL Hct (42-52) % MCV (80-100) fL MCH (25-34) pg MCHC (32-36) g/dL RDW Std Deviation (36.4-46.3) fL RDW Coeff of Shayy (11.5-14.5) % Plt Count (130-400) K/uL MPV (7.4-10.4) fL Immature Gran % (Auto) % Neut % (Auto) % Lymph % (Auto) % Evans % (Auto) % Eos % (Auto) % Baso % (Auto) % Neut # (Auto) (1.4-6.5) K/uL Lymph # (Auto) (1.2-3.4) K/uL Evans # (Auto) (0.11-0.59) K/uL Eos # (Auto) (0-0.5) K/uL Baso # (Auto) (0-0.2) K/uL Immature Gran # (Auto) (0.00-0.02) K/uL PT 11.4 (9.0-12.0) Seconds INR 1.1 (0.9-1.1) APTT 26.6 (21.0-31.0) Seconds PTT Ratio 1.0 Sodium 135 L (136-145) mmol/L Potassium 5.6 H (3.5-5.1) mmol/L Chloride 98 (98-107) mmol/L Carbon Dioxide 34 H (21-32) mmol/L Anion Gap 3.0 (3-11) BUN 50 H (7-18) mg/dl Creatinine 3.00 H (0.6-1.4) mg/dl Est Cr Clr Drug Dosing Not Reportable Est GFR ( Amer) 22.5 Est GFR (Non-Af Amer) 19.4 BUN/Creatinine Ratio 16.8 (10-20) Glucose 178 H (70-99) mg/dl Lactate 1.7 (0.4-2.0) mmol/L Calcium 7.8 L (8.5-10.1) mg/dl Magnesium 2.0 (1.8-2.4) mg/dl Total Bilirubin 0.4 (0.2-1) mg/dl AST 97 H (15-37) U/L ALT 100 H (12-78) U/L Alkaline Phosphatase 108 (45-117) U/L NT-Pro-B Natriuret Pep > 46698 H (0-900) pg/ml Total Protein 7.3 (6.4-8.2) gm/dl Albumin 1.8 L (3.4-5.0) gm/dl Globulin 5.5 H (2.5-4.0) gm/dl Albumin/Globulin Ratio 0.3 L (0.9-2) Specimen Hemolysis COVID-19 Eval Order SARS-CoV-2 (PCR) (Negative) Influenza Type A (PCR) (Neg) Influenza Type B (PCR) (Neg) RSV (RT-PCR) (Neg) Administered Medications Discontinued Medications Ampicillin Sodium/Sulbactam Sodium 3,000 mg/ Sodium Chloride 108 mls @ 200 mls/hr IV NOW STA; Protocol Stop: 12/13/20 02:54 Last Admin: 12/13/20 02:38 Dose: 200 mls/hr Documented by: [id number] Discharge Plan Visit Data Chief Complaint: Shortness of Breath/Dyspnea Stated Complaint: SHORT OF BREATH ED Provider: Mojgan Morrow Discharge Problem: Hypoxia, Pulmonary edema, Pneumonia Forms Stand Alone Forms: My [facility] Prescriptions Prescriptions: No Action citalopram 10 mg tablet 10 mg PO HS Qty: 30 RF: 5 Triad Wound Dressing Paste 1 applic topical DAILY Qty: 1 RF: 3 vancomycin 125 mg capsule 125 mg PO QID Qty: 54 RF: 0 famotidine 40 mg tablet 40 mg PO BID Qty: 180 RF: 3 triamcinolone acetonide 0.1 % cream 1 applic topical BID 7 Days Qty: 30 RF: 1 docusate sodium [Stool Softener] 100 mg capsule 100 mg PO DAILY RF: 0 Renal Caps 1 mg Capsule 1 cap PO QAM Qty: 30 RF: 0 atorvastatin [Lipitor] 80 mg tablet 80 mg PO DAILY RF: 0 levetiracetam [Keppra] 500 mg tablet 500 mg PO SUTUTHSA RF: 0 clopidogrel [Plavix] 75 mg tablet 75 mg PO DAILY RF: 0 isosorbide mononitrate 30 mg tablet extended release 24 hr 30 mg PO DAILY Qty: 30 RF: 0 amlodipine 2.5 mg tablet 2.5 mg PO HS RF: 0 Santyl 250 unit/gram ointment 1 applic TOPICAL UD RF: 0 calcitriol [Rocaltrol] 0.25 mcg capsule 0.25 mcg PO MOWEFR RF: 0 Discharge Problem: Pulmonary edema Qualifiers: Chronicity: acute Qualified Code(s): J81.0 - Acute pulmonary edema Pneumonia Qualifiers: Pneumonia type: due to unspecified organism Laterality: right Lung location: middle lobe of lung Qualified Code(s): J18.9 - Pneumonia, unspecified organism
[2020-12-13 02:13] LABS: Basophils # (auto) 0.02 K/uL (0-0.2); Basophils % (auto) 0.1 %; Eosinophils # (auto) 0.03 K/uL (0-0.5); Eosinophils % (auto) 0.2 %; Hematocrit (blood only) 33.5 % (42-52); Immature Granulocytes # (auto) 0.07 K/uL (0.00-0.02); Immature Granulocytes % (auto) 0.4 %; Lymphocytes # (auto) 1.98 K/uL (1.2-3.4); Lymphocytes % (auto) 11.2 %; Mean Corpuscular Hemoglobin 30.6 pg (25-34); Mean Corpuscular Hgb Conc 32.8 g/dL (32-36); Mean Corpuscular Volume 93.3 fL (80-100); Mean Platelet Volume 9.3 fL (7.4-10.4); Monocytes % (auto) 7.4 %; Neutrophils # (auto) 14.26 K/uL (1.4-6.5); Neutrophils % (auto) 80.7 %; Platelet Count 569 K/uL (130-400); RDW Coefficient of Variation 18.3 % (11.5-14.5); RDW Standard Deviation 61.7 fL (36.4-46.3); Red Blood Count 3.59 M/uL (4.7-6.1); White Blood Count 17.66 K/uL (4.8-10.8)
[2020-12-13 02:18] LABS: Influenza A virus by PCR Negative (Neg); Influenza B virus by PCR Negative (Neg); RSV by PCR Negative (Neg); SARS CoV2 RNA(COVID-19) InHosp NEGATIVE (Negative)
[2020-12-13] MEDS ORDERED: AMPICILLIN/SULBACTAM SOD 3,000 MG in 0.9 % SODIUM CHLORIDE 100 ML IV STA (02:22)
[2020-12-13 02:23] LABS: INR 1.1 (0.9-1.1); Partial Thromboplastin Time 26.6 Seconds (21.0-31.0); Prothrombin Time 11.4 Seconds (9.0-12.0)
[2020-12-13 02:38] LABS: Alanine Aminotransferase 100 U/L (12-78); Albumin Globulin Ratio 0.3 (0.9-2); Albumin Level 1.8 gm/dl (3.4-5.0); Alkaline Phosphatase 108 U/L (45-117); BUN Creatinine Ratio 16.8 (10-20); Bilirubin,Total 0.4 mg/dl (0.2-1); Blood Urea Nitrogen 50 mg/dl (7-18); Calcium 7.8 mg/dl (8.5-10.1); Carbon Dioxide 34 mmol/L (21-32); Chloride 98 mmol/L (98-107); Est GFR (African American) 22.5; Est GFR (Non-African American) 19.4; Globulin 5.5 gm/dl (2.5-4.0); Glucose 178 mg/dl (70-99); NT Pro B Type Natriuretic Pept > 35000 pg/ml (0-900); Sodium 135 mmol/L (136-145); Total Protein 7.3 gm/dl (6.4-8.2)
[2020-12-13 02:48] LABS: Aspartate Aminotransferase 97 U/L (15-37); Potassium 5.6 mmol/L (3.5-5.1)
[2020-12-13 03:18] LABS: Troponin I 0.043 ng/ml (0-0.045)
--- NOTE | 2020-12-13 04:22 | History & Physical Report ---
Date of Service December 13, 2020 Assessment & Plan (1) Hypoxia: Patient with acute hypoxic respiratory failure on arrival. Saturation of 75% on room air by EMS, 85% on 6L NC. Per ER attending, patient had an episode of coughing in the ER after which his respiratory distress improved. ?mucus plugging or aspiration event. Presently patient is breathing comfortably and saturating well on 6L Oxymask - 98% Labs with leukocytosis with neutrophils and bands as well as thrombocytosis BNP elevated >01803 -Admission to medical with telemetry -Swallow evaluation - strong suspicion that patient is aspirating with meals. Patient's feeds him - pureed diet with thickened liquids -Zosyn 2.25gm IV q 12 for ESRD/HD dosing -Follow cultures sent from ER -Check procalcitonin -Supplemental O2 as needed - wean as tolerated -Humidify O2 -Tylenol PRN -Mucinex PRN Present on Admission?: Yes (2) CAD (coronary artery disease): CAD (coronary artery disease): s/p CABG 2007. -Continue Atorvastatin, Plavix and Imdur Present on Admission?: Yes (3) Seizure disorder: Chronic -Continue Keppra Present on Admission?: Yes (4) Stroke: With significant deficits. Patient essentially nonverbal. Requires assistance for all ADLs -Continue Atorvastatin 80mg po daily -Continue Plavix Present on Admission?: Yes (5) Hypertension: Blood pressure appropriately controlled, 115/76 -Continue Amlodipine 2.5mg po daily -Continue Isosorbide 30mg po daily -Continue to monitor Present on Admission?: Yes (6) Depression: Chronic -Continue Citalopram Present on Admission?: Yes (7) GERD (gastroesophageal reflux disease): Chronic. Stable -Continue Pepcid 40mg po BID Present on Admission?: Yes (8) ESRD on hemodialysis: Chronic. HD q M/W/F. Last full treatment was yesterday -Continue Calcitriol Continue Renal caps Present on Admission?: Yes (9) Pressure ulcer of sacral region, stage 3: Wound Care q daily Patient with poor Albumin - suspect poor nutritional state making wound healing difficult -Encourage PO intake as tolerated with aspiration precautions -Consider Nutrition consultation, supplementation -Continue Santyl ointment F/E/N - Heplock. Monitor electrolytes. Renal diet/AHA, pureed with honey thick liquids and aspiration precautions - further recommendations per Speech Ppx - SCDs Code - DNR/DNI per discussion with Dispo - Admit to medical with telemetry Present on Admission?: Yes History of Present Illness Chief Complaint: shortness of breath, acute hypoxic respiratory failure Primary Care Provider: Erick Zapata MD Miguel Mata is a 75yo male with multiple medical problems to include ESRD on HD q M/W/F, CAD s/p CABG, multiple CVAs, Seizure and CHF. Patient presenting from home with acute hypoxic respiratory failure. History obtained through discussion with as well as chart review and discussion with ER attending. Patient offers very little history. states that patient began looking short of breath yesterday. She placed her portable oxygen concentrator on him at home. Patient had HD yesterday without difficulty. Afterwards he went home. Patient's was feeding him pureed fish and egg around 19:00 when he started coughing. He had progressive shortness of breath and respiratory distress so patient's called EMS. Upon arrival, patient was found to be in acute respiratory distress, SpO2 on room air 75%. He was placed on 6L NC with improvement in SpO2 to 85%. Oxymask placed in ER with improvement. No additional complaints at this time. Allergies Allergy/AdvReac Type Severity Reaction Status Date / Time adhesive Allergy Unknown BLISTERING Verified 12/13/20 01:58 OF SKIN latex Allergy Unknown Rash Verified 12/13/20 01:58 Home Medications Medication Instructions Recorded Confirmed Type Renal Caps 1 cap PO QAM #30 cap 11/20/19 12/13/20 Rx atorvastatin [Lipitor] 80 mg PO DAILY 02/18/20 12/13/20 History clopidogrel [Plavix] 75 mg PO DAILY 02/18/20 12/13/20 History levetiracetam [Keppra] 500 mg PO SUTUTHSA 02/18/20 12/13/20 History famotidine 40 mg tablet 40 mg PO BID #180 tab 03/01/20 12/13/20 Rx docusate sodium [Stool Softener] 100 mg PO DAILY 04/13/20 12/13/20 History citalopram 10 mg tablet 10 mg PO HS #30 tab 09/05/20 12/13/20 Rx isosorbide mononitrate 30 mg PO DAILY #30 tab 10/04/20 12/13/20 Rx vancomycin 125 mg capsule 125 mg PO QID #54 cap 11/23/20 12/13/20 Rx amlodipine 2.5 mg PO HS 11/28/20 12/13/20 History calcitriol [Rocaltrol] 0.25 mcg PO MOWEFR 11/28/20 12/13/20 History collagenase clostridium histo. 1 applic TOPICAL UD 11/28/20 12/13/20 History [Santyl] wound dressings 1 applic TOPICAL DAILY #1 tube 12/01/20 12/13/20 Rx triamcinolone acetonide 0.1 % 1 applic TOPICAL BID 7 Days #30 g 12/08/20 12/13/20 Rx topical cream Past Med/Surg History Medical History Acidosis, lactic Benign prostatic hyperplasia CAD (coronary artery disease) s/p CABG 2007 Carotid artery stenosis s/p remote R & L endarterectomies with L re-occlusion sometime before 2010. Being monitored by [facility] neuro, on Plavix. Chronic kidney disease Congestive heart failure (CHF) Dementia Depression Diabetes mellitus, type 2 A1C 5.4% 11/2019. Not on any medication. Diabetic peripheral neuropathy Esophageal reflux Flash pulmonary edema 11/2019 Hemodialysis patient MON/SAT/SATURDAY [facility] 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 (1 YEAR AFTER GA) ?1989' Hyperlipidemia Hypertension Memory problem PT REPORTS "DEMENTIA" "COMES AND GOES" Myocardial Infarction 1989? Renal artery stenosis s/p left renal artery stenting; moderate right renal artery stenosis but no significant left renal artery stenosis on 11/2019 duplex Seizure disorder Stable on Keppra, no seizure for "a long time." Follows with [facility] neurology. SNHL (sensorineural hearing loss) Surgical History History of aorto-femoral bypass History of bypass graft (non vein) Aortic-femoral or bifemoral History of carotid endarterectomy L 1998, R 2009 History of cataract surgery RT/LEFT History of colonoscopy History of esophagogastroduodenoscopy (EGD) History of tooth extraction History of vascular access device IJ FOR DIAYLSIS S/P CABG (coronary artery bypass graft) (2007) [facility] Family History Brother Hypertension Hypercholesteremia Sister Diabetes Unknown Hypertension Cardiac disorder Social History Smoking Status: Former smoker Tobacco Type: Cigarettes Cigarettes Per Day: 30; Second Hand Exposure: No; Hx Alcohol Use: No Hx Substance Use: No Preferred Language: British Communication Ability: Impaired Visual Impairment: No Limitations Silk Printer Required: No Beliefs That Will Affect Care: None marital status: Current Living Situation: Snf Current Living Situation Comment: at [facility] current occupational status: 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" Feels Safe at Home: Yes caffeine: No Seatbelt Use: always Assistive Devices: BiPap, CPAP, Mechanical Lift and Wheelchair Review of Systems Review of Systems: Unobtainable due to cognitive status denies fever/chills/chest pain/abdominal pain/nausea/vomiting/diarrhea or constipation Patient still makes a small amount of urine Patient has significant bed sores Physical Exam Physical Exam: General: patient resting comfortably, Oxymask in place, NAD, does not answer questions appropriately, following commands, alert and attentive Skin: warm, dry, decubiti not visualized on backside HEENT: NC/AT, anicteric sclera, conjunctiva without injection, external ear normal to inspection and nontender, nares patent, moist mucus membranes, dentition intact, no oropharyngeal lesions, neck supple, trachea midline, no LAD, no thyromegaly, no JVD Heart: +S1/S2, regular, tachycardic, no m/r/g Lungs: equal air entry bilaterally, coarse breath sounds diffusely in anterior lung prieto bilaterally Abd: +BS, soft, NT/ND, no masses/organomegaly/ascites Ext: warm, 2+ pulses in UE/LE bilaterally, no clubbing/cyanosis or edema Results & Data Results & Data ([facility]) Vital Signs (Past 12 Hours) Vital Signs Temp Pulse Resp BP Pulse Ox 12/13/20 02:30 26 H 98 12/13/20 02:13 26 H 96 12/13/20 01:43 104 H 26 H 96 12/13/20 01:30 109 H 27 H 111/78 96 12/13/20 01:13 26 H 96 12/13/20 01:01 37.7 C H 139 H 38 H 159/97 H 85 L 12/13/20 01:00 141 H 32 H 147/99 H 84 L 12/13/20 00:58 139 H 32 H 81 L 12/13/20 00:55 140 H 42 H 159/97 H 82 L Laboratory Results Lab Results 12/13/20 12/13/20 12/13/20 Range/Units 01:23 01:23 01:45 WBC 17.66 H (4.8-10.8) K/uL RBC 3.59 L (4.7-6.1) M/uL Hgb 11.0 L (14.0-18.0) g/dL Hct 33.5 L (42-52) % MCV 93.3 (80-100) fL MCH 30.6 (25-34) pg MCHC 32.8 (32-36) g/dL RDW Std Deviation 61.7 H (36.4-46.3) fL RDW Coeff of Shayy 18.3 H (11.5-14.5) % Plt Count 569 H (130-400) K/uL MPV 9.3 (7.4-10.4) fL Immature Gran % (Auto) 0.4 % Neut % (Auto) 80.7 % Lymph % (Auto) 11.2 % Metcalfe % (Auto) 7.4 % Eos % (Auto) 0.2 % Baso % (Auto) 0.1 % Neut # (Auto) 14.26 H (1.4-6.5) K/uL Lymph # (Auto) 1.98 (1.2-3.4) K/uL [place] # (Auto) 1.30 H (0.11-0.59) K/uL Eos # (Auto) 0.03 (0-0.5) K/uL Baso # (Auto) 0.02 (0-0.2) K/uL Immature Gran # (Auto) 0.07 H (0.00-0.02) K/uL PT (9.0-12.0) Seconds INR (0.9-1.1) APTT (21.0-31.0) Seconds PTT Ratio Sodium (136-145) mmol/L Potassium (3.5-5.1) mmol/L Chloride (98-107) mmol/L Carbon Dioxide (21-32) mmol/L Anion Gap (3-11) BUN (7-18) mg/dl Creatinine (0.6-1.4) mg/dl Est Cr Clr Drug Dosing Est GFR ( Amer) Est GFR (Non-Af Amer) BUN/Creatinine Ratio (10-20) Glucose (70-99) mg/dl Lactate (0.4-2.0) mmol/L Calcium (8.5-10.1) mg/dl Magnesium (1.8-2.4) mg/dl Total Bilirubin (0.2-1) mg/dl AST (15-37) U/L ALT (12-78) U/L Alkaline Phosphatase (45-117) U/L Troponin I (0-0.045) ng/ml NT-Pro-B Natriuret Pep (0-900) pg/ml Total Protein (6.4-8.2) gm/dl Albumin (3.4-5.0) gm/dl Globulin (2.5-4.0) gm/dl Albumin/Globulin Ratio (0.9-2) Specimen Hemolysis COVID-19 Eval Order CovFluRsv at [facility] SARS-CoV-2 (PCR) NEGATIVE (Negative) Influenza Type A (PCR) Negative (Neg) Influenza Type B (PCR) Negative (Neg) RSV (RT-PCR) Negative (Neg) 12/13/20 12/13/20 12/13/20 Range/Units 01:45 01:45 02:30 WBC (4.8-10.8) K/uL RBC (4.7-6.1) M/uL Hgb (14.0-18.0) g/dL Hct (42-52) % MCV (80-100) fL MCH (25-34) pg MCHC (32-36) g/dL RDW Std Deviation (36.4-46.3) fL RDW Coeff of Shayy (11.5-14.5) % Plt Count (130-400) K/uL MPV (7.4-10.4) fL Immature Gran % (Auto) % Neut % (Auto) % Lymph % (Auto) % [place] % (Auto) % Eos % (Auto) % Baso % (Auto) % Neut # (Auto) (1.4-6.5) K/uL Lymph # (Auto) (1.2-3.4) K/uL [place] # (Auto) (0.11-0.59) K/uL Eos # (Auto) (0-0.5) K/uL Baso # (Auto) (0-0.2) K/uL Immature Gran # (Auto) (0.00-0.02) K/uL PT 11.4 (9.0-12.0) Seconds INR 1.1 (0.9-1.1) APTT 26.6 (21.0-31.0) Seconds PTT Ratio 1.0 Sodium 135 L (136-145) mmol/L Potassium 5.6 H (3.5-5.1) mmol/L Chloride 98 (98-107) mmol/L Carbon Dioxide 34 H (21-32) mmol/L Anion Gap 3.0 (3-11) BUN 50 H (7-18) mg/dl Creatinine 3.00 H (0.6-1.4) mg/dl Est Cr Clr Drug Dosing Not Reportable Est GFR ( Amer) 22.5 Est GFR (Non-Af Amer) 19.4 BUN/Creatinine Ratio 16.8 (10-20) Glucose 178 H (70-99) mg/dl Lactate 1.7 (0.4-2.0) mmol/L Calcium 7.8 L (8.5-10.1) mg/dl Magnesium 2.0 (1.8-2.4) mg/dl Total Bilirubin 0.4 (0.2-1) mg/dl AST 97 H (15-37) U/L ALT 100 H (12-78) U/L Alkaline Phosphatase 108 (45-117) U/L Troponin I 0.043 (0-0.045) ng/ml NT-Pro-B Natriuret Pep > 78398 H (0-900) pg/ml Total Protein 7.3 (6.4-8.2) gm/dl Albumin 1.8 L (3.4-5.0) gm/dl Globulin 5.5 H (2.5-4.0) gm/dl Albumin/Globulin Ratio 0.3 L (0.9-2) Specimen Hemolysis COVID-19 Eval Order SARS-CoV-2 (PCR) (Negative) Influenza Type A (PCR) (Neg) Influenza Type B (PCR) (Neg) RSV (RT-PCR) (Neg) Diagnostic Findings CXR by my interpretation - bilateral airspace diseases in lower lung prieto R >L, sternotomy wires in place, left chest cathteter in place PG Care Time/CCT Total # of Minutes Spent Total Time Spent with Patient: Total time spent is greater than 50% in coordination of care (as documented) at patient's floor/unit and/or counseling patient: Coding Level of Care Code 99911 Initial Inpt Care Lvl 3 Diagnoses Hypoxia R09.02 CAD (coronary artery disease) I25.10 Coronary Disease-Associated Artery/Lesion type: [place] artery [place] vs. transplanted heart: [place] heart Associated angina: without angina Seizure disorder G40.909 Stroke I63.9 Laterality of affected vessel: unspecified Hypertension I10 Hypertension type: essential hypertension Depression F32.9 Depression Type: unspecified GERD (gastroesophageal reflux disease) K21.9 Esophagitis presence: esophagitis presence not specified ESRD on hemodialysis N18.6; Z99.2 Pressure ulcer of sacral region, stage 3 L89.153 (1) CAD (coronary artery disease) Coronary Disease-Associated Artery/Lesion type: [place] artery [place] vs. transplanted heart: [place] heart Associated angina: without angina Qualified Code(s): I25.10 - Atherosclerotic heart disease of [place] coronary artery without angina pectoris (2) Stroke Laterality of affected vessel: unspecified (3) Hypertension Hypertension type: essential hypertension Qualified Code(s): I10 - Essential (primary) hypertension (4) Depression Depression Type: unspecified Qualified Code(s): F32.9 - Major depressive disorder, single episode, unspecified (5) GERD (gastroesophageal reflux disease) Esophagitis presence: esophagitis presence not specified Qualified Code(s): K21.9 - Gastro-esophageal reflux disease without esophagitis
[2020-12-13] MEDS ORDERED: ACETAMINOPHEN 325 MG TAB ONE (04:26)
[2020-12-13] MEDS ORDERED: ONDANSETRON INJ 2 MG/ML 2 ML VIAL IV PRN (05:49)
[2020-12-13] MEDS ORDERED: PIPERACILL/TAZOBAC CONSULT ACTIVE PRN (05:49)
[2020-12-13] MEDS ORDERED: PIPERACILLIN/TAZOBACTAM 2.25 GM in DEXTROSE 5% 100 ML IV SCH (05:49)
--- NOTE | 2020-12-13 06:47 | XRay Report ---
XR chest 1V portable HISTORY: 75 years-old Male SEPSIS acute sepsis COMPARISON: Chest radiograph 10/21/2020 TECHNIQUE: Portable AP view of the chest FINDINGS: Cardiac silhouette is enlarged. Prior median sternotomy. Right IJ dual-lumen hemodialysis catheter di stal tip overlies the superior cavoatrial junction. No pneumothorax. Pulmonary vascular congestion wi th interstitial coarsening. Layering pleural effusions with left greater than right bibasilar consoli dation. Degenerative changes of the shoulders and spine. IMPRESSION: 1. Cardiomegaly with pulmonary edema. 2. Layering pleural effusions with left greater than right bibasilar consolidation. ACT 112: Negative or not required by law. The above report was generated using voice recognition software. It may contain grammatical, syntax o r spelling errors. Electronically signed by: Romel May M.D. 12/13/2020 6:45 AM
[2020-12-13] MEDS ORDERED: PIPERACILLIN/TAZOBACTAM 3.375 GM in DEXTROSE 5% 100 ML IV ONE (08:00)
[2020-12-13] MEDS: DOCUSATE SODIUM 100 MG CAP PO SCH (08:26)
[2020-12-13] MEDS: ATORVASTATIN 40 MG TAB PO SCH (08:27)
[2020-12-13] MEDS: levETIRAcetam 500 MG TAB PO SCH (08:27)
[2020-12-13] MEDS: NEPHROCAPS PO SCH (08:27)
[2020-12-13] MEDS: TRIAMCINOLONE ACET 0.1% CR 15 GM TUBE TOP SCH ×2 (08:27→20:07)
[2020-12-13] MEDS: CLOPIDOGREL BISULFATE 75 MG TAB PO SCH (08:27)
[2020-12-13] MEDS: FAMOTIDINE 40 MG TABLET PO SCH ×2 (08:28→20:04)
[2020-12-13] MEDS: guaiFENesin 600 MG TABCR PO SCH ×2 (08:28→20:07)
[2020-12-13] MEDS: ISOSORBIDE MONO EXTENDED REL 30 MG TABCR PO SCH (08:28)
[2020-12-13] MEDS ORDERED: COLLAGENASE OINT 30 GM TUBE TOP PRN (09:00)
--- NOTE | 2020-12-13 10:32 | Nephrology Consultation ---
Date of Consultation December 13, 2020 Assessment & Plan (1) ESRD on hemodialysis: IHD MWF. Completed treatment yesterday. TDC used for HD. For volume overload and hyperkalemia. Orders for emergent HD today have been entered into the EMR and communicated to the HD nurse. UF goal ~2 L as tolerated. Medications appropriately dosed for IHD. Overall, prognosis is guarded. Miguel is increasingly frail and debilitated. Given his multiple medical comorbidities, risks/benefits of continuing HD are becoming less favorable. I have discussed this with the family in the past. Palliative care consultation was obtained in September and I would suggest revisiting these goals of care during his hospitalization. Overall, prognosis is guarded. (2) Acute hyperkalemia: Emergent HD will be provided. Repeat metabolic profile tomorrow AM. Clearance with dialysis has been acceptable. (3) Hypertension: Blood pressure appropriately controlled. No change to current medical therapy. Medications appropriate for IHD (4) Anemia: Maintained on Micera as outpatient. No additional JENSEN therapy at this time with Hgb >11. History of Present Illness Reason for Consultation: ESRD Requesting Physician: Luis Enrique Pacheco Attending Physician: Luis Enrique Pacheco History of Present Illness Mr. Miguel Mata is a 75-year-old male with significant atherosclerotic vascular disease, dementia, history of CVA with expressive aphasia, encephalomalacia, QTc >500, and ESRD. He is maintained on IHD at [facility] under my care. Miguel dialyzes on a MWF schedule. Typical Rx is 3 hours on a 180 optiflux 2K with Qb 350 and Qd 800. EDW 49 kg. This has recently been adjusted to account for continued weight loss. A TDC has been used for treatment. AVF mature and had been functioning well but Miguel did not tolerate use of the AVF and on several occasions needles were dislodged or removed. Miguel completed his scheduled dialysis treatment yesterday without complications. Net UF ~2 L. Post HD weight ~52.4 kg. Miguel slept through treatment. BP was slightly low and additional fluid removal was not attempted as Miguel has not tolerated aggressive UF in the past. He returned home after treatment and presented to the ER late last night with notable shortness of breath. He is being treated for suspected pneumonia. CXR also demonstrating notable increasing bilateral pleural effusions and interstitial edema. I attempted to contact Miguel's (Princess) this AM but there was no answer to my phone calls. Unfortunately, Miguel has demonstrated progressive decline with intermittent confusion and noted mental status changes over the past several months. He was admitted to [facility] in August, September, and last month. In August, evaluation noted acute right occipital CVA and noted chronic changes including chronic occlusion of the L ICA. Prior evaluations notable for seizure activity for which he has been maintained on Keppra. Miguel was not able to answer any of my questions this AM. He was lethargic and non-verbal. Sacral decubitus described by nurse. Sinus with 2 degree AV-block on monitor. Medical records including records from multiple recent prior admissions were reviewed today. Records from [facility] also reviewed. Allergies Allergy/AdvReac Type Severity Reaction Status Date / Time adhesive Allergy Unknown BLISTERING Verified 12/13/20 01:58 OF SKIN latex Allergy Unknown Rash Verified 12/13/20 01:58 Home Medications Medication Instructions Recorded Confirmed Type Renal Caps 1 cap PO QAM #30 cap 11/20/19 12/13/20 Rx atorvastatin [Lipitor] 80 mg PO DAILY 02/18/20 12/13/20 History clopidogrel [Plavix] 75 mg PO DAILY 02/18/20 12/13/20 History levetiracetam [Keppra] 500 mg PO SUTUTHSA 02/18/20 12/13/20 History famotidine 40 mg tablet 40 mg PO BID #180 tab 03/01/20 12/13/20 Rx docusate sodium [Stool Softener] 100 mg PO DAILY 04/13/20 12/13/20 History citalopram 10 mg tablet 10 mg PO HS #30 tab 09/05/20 12/13/20 Rx isosorbide mononitrate 30 mg PO DAILY #30 tab 10/04/20 12/13/20 Rx vancomycin 125 mg capsule 125 mg PO QID #54 cap 11/23/20 12/13/20 Rx amlodipine 2.5 mg PO HS 11/28/20 12/13/20 History calcitriol [Rocaltrol] 0.25 mcg PO MOWEFR 11/28/20 12/13/20 History collagenase clostridium histo. 1 applic TOPICAL UD 11/28/20 12/13/20 History [Santyl] wound dressings 1 applic TOPICAL DAILY #1 tube 12/01/20 12/13/20 Rx triamcinolone acetonide 0.1 % 1 applic TOPICAL BID 7 Days #30 g 12/08/20 12/13/20 Rx topical cream Patient History Medical History Acidosis, lactic Benign prostatic hyperplasia CAD (coronary artery disease) s/p CABG 2007 Carotid artery stenosis s/p remote R & L endarterectomies with L re-occlusion sometime before 2010. Being monitored by [facility] [place] [place] neuro, on Plavix. Chronic kidney disease Congestive heart failure (CHF) Dementia Depression Diabetes mellitus, type 2 A1C 5.4% 11/2019. Not on any medication. Diabetic peripheral neuropathy Esophageal reflux Flash pulmonary edema 11/2019 Hemodialysis patient SAT/SAT/SATURDAY [facility] 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 ([address]) ? Hyperlipidemia Hypertension Memory problem PT REPORTS "DEMENTIA" "COMES AND GOES" Myocardial Infarction 1989? Renal artery stenosis s/p left renal artery stenting; moderate right renal artery stenosis but no significant left renal artery stenosis on 11/2019 duplex Seizure disorder Stable on Keppra, no seizure for "a long time." Follows with [facility] [place] [place] neurology. SNHL (sensorineural hearing loss) Surgical History History of aorto-femoral bypass History of bypass graft (non vein) Aortic-femoral or bifemoral History of carotid endarterectomy L 1998, R 2009 History of cataract surgery RT/LEFT History of colonoscopy History of esophagogastroduodenoscopy (EGD) History of tooth extraction History of vascular access device IJ FOR DIAYLSIS S/P CABG (coronary artery bypass graft) (2007) [facility] Family History Brother Hypertension Hypercholesteremia Sister Diabetes Unknown Hypertension Cardiac disorder Social History Smoking Status: Former smoker Tobacco Type: Cigarettes Cigarettes Per Day: 30; Second Hand Exposure: No; Hx Alcohol Use: No Hx Substance Use: No Preferred Language: Guyanese Communication Ability: Impaired Visual Impairment: No Limitations Bridge Painter Required: No Beliefs That Will Affect Care: None marital status: Current Living Situation: Spouse Current Living Situation Comment: at [facility] current occupational status: 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" Feels Safe at Home: Yes caffeine: No Seatbelt Use: always Assistive Devices: Oxygen - Continuous Review of Systems Review of Systems: Unobtainable due to cognitive status Physical Exam Constitutional: + ill appearing, + thin and + frail appearing Eyes: + anicteric sclerae; no corneal abnormality ENMT: Ears: + hearing impairment Mouth: + dry oral mucous membranes Neck: normal visual inspection and trachea midline Respiratory: normal respiratory effort Auscultation: + rales Cardiovascular: Rate/Rhythm: regular rate; + abnormal rhythm Heart Sounds: normal S1, normal S2 and + murmur Vessels: + JVD Extremities: no edema Gastrointestinal (Abdomen): Percussion/Palpation: abdomen soft; abdomen nontender Musculoskeletal: Extremities: + cyanosis; no clubbing Skin: + ecchymosis Neurologic: + not awake Motor/Sensory: no tremor Psychiatric: Orientation: + guarded; + not oriented x 3 Results & Data ([facility]) Vital Signs (Past 12 Hours) Vital Signs Temp Pulse Pulse Resp BP BP Pulse Ox 12/13/20 07:53 97 12/13/20 07:41 36.6 C 73 19 106/66 97 12/13/20 06:58 36.6 C 75 22 129/65 96 12/13/20 05:30 36.6 C 86 26 H 113/69 90 12/13/20 05:01 37 C 28 H 90 12/13/20 04:44 37 C 94 H 28 H 100/80 90 12/13/20 04:30 23 94 12/13/20 04:00 97 H 23 115/76 93 12/13/20 03:45 80 25 H 121/73 93 12/13/20 03:30 96 H 23 132/78 97 12/13/20 03:15 102 H 28 H 107/75 99 12/13/20 03:00 99 H 25 H 124/75 98 12/13/20 02:45 102 H 26 H 116/70 98 12/13/20 02:30 103 H 25 H 110/70 99 12/13/20 02:15 99 H 25 H 104/63 98 12/13/20 02:13 26 H 96 12/13/20 02:05 95 H 26 H 109/68 97 12/13/20 02:00 104 H 24 97 12/13/20 01:43 104 H 26 H 96 12/13/20 01:30 109 H 27 H 111/78 96 12/13/20 01:13 26 H 96 12/13/20 01:01 37.7 C H 139 H 38 H 159/97 H 85 L 12/13/20 01:00 141 H 32 H 147/99 H 84 L 12/13/20 00:58 139 H 32 H 81 L 12/13/20 00:55 140 H 42 H 159/97 H 82 L Laboratory Results Laboratory Results - last 24 hr 12/13/20 12/13/20 12/13/20 01:23 01:23 01:45 WBC 17.66 H RBC 3.59 L Hgb 11.0 L Hct 33.5 L MCV 93.3 MCH 30.6 MCHC 32.8 RDW Std Deviation 61.7 H RDW Coeff of Shayy 18.3 H Plt Count 569 H MPV 9.3 Immature Gran % (Auto) 0.4 Neut % (Auto) 80.7 Lymph % (Auto) 11.2 [place] % (Auto) 7.4 Eos % (Auto) 0.2 Baso % (Auto) 0.1 Neut # (Auto) 14.26 H Lymph # (Auto) 1.98 [place] # (Auto) 1.30 H Eos # (Auto) 0.03 Baso # (Auto) 0.02 Immature Gran # (Auto) 0.07 H PT INR APTT PTT Ratio Sodium Potassium Chloride Carbon Dioxide Anion Gap BUN Creatinine Est Cr Clr Drug Dosing Est GFR ( Amer) Est GFR (Non-Af Amer) BUN/Creatinine Ratio Glucose Lactate Calcium Magnesium Total Bilirubin AST ALT Alkaline Phosphatase Troponin I NT-Pro-B Natriuret Pep Total Protein Albumin Globulin Albumin/Globulin Ratio Procalcitonin Specimen Hemolysis COVID-19 Eval Order CovFluRsv at [facility] SARS-CoV-2 (PCR) NEGATIVE Influenza Type A (PCR) Negative Influenza Type B (PCR) Negative RSV (RT-PCR) Negative 12/13/20 12/13/20 12/13/20 01:45 01:45 02:30 WBC RBC Hgb Hct MCV MCH MCHC RDW Std Deviation RDW Coeff of Shayy Plt Count MPV Immature Gran % (Auto) Neut % (Auto) Lymph % (Auto) [place] % (Auto) Eos % (Auto) Baso % (Auto) Neut # (Auto) Lymph # (Auto) [place] # (Auto) Eos # (Auto) Baso # (Auto) Immature Gran # (Auto) PT 11.4 INR 1.1 APTT 26.6 PTT Ratio 1.0 Sodium 135 L Potassium 5.6 H Chloride 98 Carbon Dioxide 34 H Anion Gap 3.0 BUN 50 H Creatinine 3.00 H Est Cr Clr Drug Dosing Not Reportable Est GFR ( Amer) 22.5 Est GFR (Non-Af Amer) 19.4 BUN/Creatinine Ratio 16.8 Glucose 178 H Lactate 1.7 Calcium 7.8 L Magnesium 2.0 Total Bilirubin 0.4 AST 97 H ALT 100 H Alkaline Phosphatase 108 Troponin I 0.043 NT-Pro-B Natriuret Pep > 74446 H Total Protein 7.3 Albumin 1.8 L Globulin 5.5 H Albumin/Globulin Ratio 0.3 L Procalcitonin Specimen Hemolysis COVID-19 Eval Order SARS-CoV-2 (PCR) Influenza Type A (PCR) Influenza Type B (PCR) RSV (RT-PCR) 12/13/20 06:49 WBC RBC Hgb Hct MCV MCH MCHC RDW Std Deviation RDW Coeff of Shayy Plt Count MPV Immature Gran % (Auto) Neut % (Auto) Lymph % (Auto) [place] % (Auto) Eos % (Auto) Baso % (Auto) Neut # (Auto) Lymph # (Auto) [place] # (Auto) Eos # (Auto) Baso # (Auto) Immature Gran # (Auto) PT INR APTT PTT Ratio Sodium Potassium Chloride Carbon Dioxide Anion Gap BUN Creatinine Est Cr Clr Drug Dosing Est GFR ( Amer) Est GFR (Non-Af Amer) BUN/Creatinine Ratio Glucose Lactate Calcium Magnesium Total Bilirubin AST ALT Alkaline Phosphatase Troponin I NT-Pro-B Natriuret Pep Total Protein Albumin Globulin Albumin/Globulin Ratio Procalcitonin 1.34 H Specimen Hemolysis COVID-19 Eval Order SARS-CoV-2 (PCR) Influenza Type A (PCR) Influenza Type B (PCR) RSV (RT-PCR) PG Care Time/CCT Total # of Minutes Spent Total Time Spent with Patient: Total time spent is greater than 50% in coordination of care (as documented) at patient's floor/unit and/or counseling patient: Coding Level of Care Code 84343 Inpt Consult Level 4 Diagnoses ESRD on hemodialysis N18.6; Z99.2 Acute hyperkalemia E87.5 Hypertension I10 Hypertension type: essential hypertension Anemia D64.9 (1) Hypertension Hypertension type: essential hypertension Qualified Code(s): I10 - Essential (primary) hypertension
--- NOTE | 2020-12-13 13:49 | Cardiology Consultation ---
Date of Consultation December 13, 2020 Assessment & Plan (1) Abnormal ECG: -demonstrates sinus tachycardia with first-degree AV block and a right bundle branch block. -frequent PACs, blocked PACs and fusion beats seen on the monitor. -has also demonstrate episodes of second-degree AV block, type 1 (Wenckebach). -no further cardiac evaluation necessary. (2) CAD (coronary artery disease): -history of CABG in 2007. -no further details. (3) Congestive heart failure (CHF): -pulmonary edema noted on chest x-ray. -hemodialysis manages his volume status. (4) Hypertension: -adequate control on current regimen. History of Present Illness Attending Physician: Luis Enrique Pacheco History of Present Illness Mr. Mata is a 75-year-old male admitted earlier today with acute respiratory failure. This consultation was ordered to assistance cardiac management. The patient was in his usual state of health until yesterday when his noted him to be a bit more short of breath. He was placed on supplemental oxygen and improved. He was able to undergo hemodialysis without difficulty. However, while the patient was being fed by his at approximately 7:00 p.m. last evening, the patient began coughing and became acutely short of breath. The called 911. On initial evaluation, saturations were reportedly 75% on room air. He was brought to the emergency room for further evaluation. Initial pressure in suspected aspiration pneumonia. The patient has longstanding history of coronary artery disease having undergone a coronary artery bypass graft back in 2007. Details are unknown. The history is was obtained from review of the chart. Patient was not responding during my evaluation. Past medical and surgical history 1. Coronary artery disease 2. CABG-2007 3. Hypertension 4. Hypercholesterolemia 5. Diabetes mellitus 6. CVA-, right hemiparesis and aphasia 7. Encephalomalacia 8. Seizure disorder 9. End-stage renal disease 10. Renal artery stenosis 11. GERD 12. Left internal carotid total occlusion 13. BPH 14. Sacral decubitus ulcer 15. Dementia 16. Bilateral carotid endarterectomies -1998 left, 2009 right 17. s/p left renal artery stent 18. Bilateral intra-ocular lens implants 19. Aortobifem bypass Social history and lives with his . No tobacco alcohol Family history Noncontributory Review of systems Unobtainable Allergies Allergy/AdvReac Type Severity Reaction Status Date / Time adhesive Allergy Unknown BLISTERING Verified 12/13/20 01:58 OF SKIN latex Allergy Unknown Rash Verified 12/13/20 01:58 Home Medications Medication Instructions Recorded Confirmed Type Renal Caps 1 cap PO QAM #30 cap 11/20/19 12/13/20 Rx atorvastatin [Lipitor] 80 mg PO DAILY 02/18/20 12/13/20 History clopidogrel [Plavix] 75 mg PO DAILY 02/18/20 12/13/20 History levetiracetam [Keppra] 500 mg PO SUTUTHSA 02/18/20 12/13/20 History famotidine 40 mg tablet 40 mg PO BID #180 tab 03/01/20 12/13/20 Rx docusate sodium [Stool Softener] 100 mg PO DAILY 04/13/20 12/13/20 History citalopram 10 mg tablet 10 mg PO HS #30 tab 09/05/20 12/13/20 Rx isosorbide mononitrate 30 mg PO DAILY #30 tab 10/04/20 12/13/20 Rx vancomycin 125 mg capsule 125 mg PO QID #54 cap 11/23/20 12/13/20 Rx amlodipine 2.5 mg PO HS 11/28/20 12/13/20 History calcitriol [Rocaltrol] 0.25 mcg PO MOWEFR 11/28/20 12/13/20 History collagenase clostridium histo. 1 applic TOPICAL UD 11/28/20 12/13/20 History [Santyl] wound dressings 1 applic TOPICAL DAILY #1 tube 12/01/20 12/13/20 Rx triamcinolone acetonide 0.1 % 1 applic TOPICAL BID 7 Days #30 g 12/08/20 12/13/20 Rx topical cream Patient History Medical History Acidosis, lactic Benign prostatic hyperplasia CAD (coronary artery disease) s/p CABG 2007 Carotid artery stenosis s/p remote R & L endarterectomies with L re-occlusion sometime before 2010. Being monitored by [facility] neuro, on Plavix. Chronic kidney disease Congestive heart failure (CHF) Dementia Depression Diabetes mellitus, type 2 A1C 5.4% 11/2019. Not on any medication. Diabetic peripheral neuropathy Esophageal reflux Flash pulmonary edema 11/2019 Hemodialysis patient SAT/SAT/SATURDAY [facility] 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 (1 YEAR AFTER [place]) ?1989' Hyperlipidemia Hypertension Memory problem PT REPORTS "DEMENTIA" "COMES AND GOES" Myocardial Infarction 1989? Renal artery stenosis s/p left renal artery stenting; moderate right renal artery stenosis but no significant left renal artery stenosis on 11/2019 duplex Seizure disorder Stable on Keppra, no seizure for "a long time." Follows with [facility] neurology. SNHL (sensorineural hearing loss) Surgical History History of aorto-femoral bypass History of bypass graft (non vein) Aortic-femoral or bifemoral History of carotid endarterectomy L 1998, R 2009 History of cataract surgery RT/LEFT History of colonoscopy History of esophagogastroduodenoscopy (EGD) History of tooth extraction History of vascular access device IJ FOR DIAYLSIS S/P CABG (coronary artery bypass graft) (2007) [facility] Family History Brother Hypertension Hypercholesteremia Sister Diabetes Unknown Hypertension Cardiac disorder Social History Smoking Status: Former smoker Tobacco Type: Cigarettes Cigarettes Per Day: 30; Second Hand Exposure: No; Hx Alcohol Use: No Hx Substance Use: No Preferred Language: Czech Communication Ability: Impaired Visual Impairment: No Limitations Sexual Assault Counsellor Required: No Beliefs That Will Affect Care: None marital status: Current Living Situation: Spouse Current Living Situation Comment: at [facility] current occupational status: 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 HEENT exam notes dry mucous membranes neck is supple with full carotid upstrokes. No obvious bruits. Jugular venous pressure is difficult to assess. Cardiovascular exam reveals a regular rhythm with distant heart sounds. No obvious murmurs. No S3-S4. Lungs are clear anteriorly. Chest reveals a well- healed midline scar. Abdomen is soft without bruits. Extremities reveal intact radial artery pulses bilaterally. There is no peripheral edema. Results & Data ([facility]) Vital Signs (Past 12 Hours) Vital Signs Temp Pulse Pulse Resp BP BP Pulse Ox 12/13/20 13:09 36.5 C 59 L 19 101/64 96 12/13/20 07:53 97 12/13/20 07:41 36.6 C 73 19 106/66 97 12/13/20 06:58 36.6 C 75 22 129/65 96 12/13/20 05:30 36.6 C 86 26 H 113/69 90 12/13/20 05:01 37 C 28 H 90 12/13/20 04:44 37 C 94 H 28 H 100/80 90 12/13/20 04:30 23 94 12/13/20 04:00 97 H 23 115/76 93 12/13/20 03:45 80 25 H 121/73 93 12/13/20 03:30 96 H 23 132/78 97 12/13/20 03:15 102 H 28 H 107/75 99 12/13/20 03:00 99 H 25 H 124/75 98 12/13/20 02:45 102 H 26 H 116/70 98 12/13/20 02:30 103 H 25 H 110/70 99 12/13/20 02:15 99 H 25 H 104/63 98 12/13/20 02:13 26 H 96 12/13/20 02:05 95 H 26 H 109/68 97 12/13/20 02:00 104 H 24 97 12/13/20 01:43 104 H 26 H 96 Laboratory Results CBC notes hemoglobin 11.0, hematocrit 33.5, white count 17.6, and platelet count 310320. Electrolytes note a sodium of 135, potassium 5.6, chloride 98, bicarb 34, BUN 50, creatinine 3.0, glucose [place] 178[place] [address]. Albumin is low at 1.8. Magnesium level is normal 2.0. Diagnostic Findings Initial EKG notes sinus tachycardia with first-degree AV block and complete right bundle-branch block. There is an old inferoposterior myocardial infarction pattern. Second tracing is similar but demonstrates a blocked PAC and a fusion beat. youth nutritional monitor notes PACs, episodes of Wenckebach, and fusion beats. PG Care Time/CCT Total # of Minutes Spent Total Time Spent with Patient: Total time spent is greater than 50% in coordination of care (as documented) at patient's floor/unit and/or counseling patient: Coding Level of Care Code 62601 Initial Inpt Care Lvl 3 Diagnoses Abnormal ECG R94.31 CAD (coronary artery disease) I25.10 Coronary Disease-Associated Artery/Lesion type: [place] artery [place] vs. transplanted heart: [place] heart Associated angina: without angina Congestive heart failure (CHF) I50.9 Hypertension I10 Hypertension type: essential hypertension (1) CAD (coronary artery disease) Coronary Disease-Associated Artery/Lesion type: [place] artery [place] vs. transplanted heart: [place] heart Associated angina: without angina Qualified Code(s): I25.10 - Atherosclerotic heart disease of [place] coronary artery without angina pectoris (2) Hypertension Hypertension type: essential hypertension Qualified Code(s): I10 - Essential (primary) hypertension
[2020-12-13] MEDS ORDERED: PIPERACILLIN/TAZOBACTAM 3.375 GM in DEXTROSE 5% 100 ML IV SCH (14:00)
--- NOTE | 2020-12-13 15:08 | Electrocardiogram Report ---
Test Reason : Blood Pressure : / mmHG Vent. Rate : 139 BPM Atrial Rate : 133 BPM P-R Int : 000 ms QRS Dur : 122 ms QT Int : 362 ms P-R-T Axes : 000 263 050 degrees QTc Int : 550 ms Poor data quality, interpretation may be adversely affected Sinus tachycardia with 1st degree A-V block Right bundle branch block Inferior-posterior infarct , age undetermined Abnormal ECG When compared with ECG of 28-NOV-2020 14:12, Vent. rate has increased BY 57 BPM Confirmed by Kareem Gallardo ([id number]) on 12/13/2020 3:08:02 PM Referred By: REFERRED SELF Confirmed By:Kareem Gallardo
--- NOTE | 2020-12-13 15:09 | Electrocardiogram Report ---
Test Reason : Blood Pressure : / mmHG Vent. Rate : 097 BPM Atrial Rate : 111 BPM P-R Int : 360 ms QRS Dur : 100 ms QT Int : 406 ms P-R-T Axes : 050 223 -38 degrees QTc Int : 515 ms Sinus tachycardia with 1st degree A-V block with Blocked Premature atrial complexes with Premature ve ntricular complexes or Fusion complexes Right superior axis deviation Inferior-posterior infarct , age undetermined Abnormal ECG When compared with ECG of 13-DEC-2020 01:01, (unconfirmed) No significant change Confirmed by Kareem Gallardo ([id number]) on 12/13/2020 3:08:49 PM Referred By: REFERRED SELF Confirmed By:Kareem Gallardo
--- NOTE | 2020-12-13 15:13 | Electrocardiogram Report ---
Test Reason : Blood Pressure : / mmHG Vent. Rate : 061 BPM Atrial Rate : 072 BPM P-R Int : 208 ms QRS Dur : 090 ms QT Int : 512 ms P-R-T Axes : 054 010 211 degrees QTc Int : 515 ms Sinus rhythm with with 2nd degree A-V block ([place]ob[place] I) Fusion complexes Inferior-posterior infarct (cited on or before 18-NOV-2020) Prolonged QT Abnormal ECG When compared with ECG of 13-DEC-2020 02:51, (unconfirmed) Significant changes have occurred Confirmed by Kareem Gallardo ([id number]) on 12/13/2020 3:13:36 PM Referred By: REFERRED SELF Confirmed By:Kareem Gallardo
[2020-12-13] MEDS: PIPERACILLIN/TAZOBACTAM 3.375 GM in DEXTROSE 5% 100 ML IV SCH (18:11)
[2020-12-13] MEDS: amLODIPine BESYLATE 5 MG TAB PO SCH (20:03)
[2020-12-13] MEDS: CITALOPRAM 20 MG TAB PO SCH (20:05)
[2020-12-14] MEDS: PIPERACILLIN/TAZOBACTAM 3.375 GM in DEXTROSE 5% 100 ML IV SCH ×2 (03:47→17:04)
[2020-12-14 07:56] LABS: Basophils # (auto) 0.02 K/uL (0-0.2); Basophils % (auto) 0.2 %; Eosinophils # (auto) 0.17 K/uL (0-0.5); Eosinophils % (auto) 1.5 %; Hematocrit (blood only) 34.9 % (42-52); Immature Granulocytes # (auto) 0.06 K/uL (0.00-0.02); Immature Granulocytes % (auto) 0.5 %; Lymphocytes # (auto) 1.03 K/uL (1.2-3.4); Lymphocytes % (auto) 8.9 %; Mean Corpuscular Hemoglobin 29.6 pg (25-34); Mean Corpuscular Hgb Conc 31.5 g/dL (32-36); Mean Corpuscular Volume 93.8 fL (80-100); Mean Platelet Volume 9.5 fL (7.4-10.4); Monocytes # (auto) 1.62 K/uL (0.11-0.59); Neutrophils # (auto) 8.68 K/uL (1.4-6.5); Neutrophils % (auto) 74.9 %; Platelet Count 488 K/uL (130-400); RDW Coefficient of Variation 18.3 % (11.5-14.5); RDW Standard Deviation 62.5 fL (36.4-46.3); Red Blood Count 3.72 M/uL (4.7-6.1); White Blood Count 11.58 K/uL (4.8-10.8)
[2020-12-14] MEDS: ISOSORBIDE MONO EXTENDED REL 30 MG TABCR PO SCH (08:22)
[2020-12-14] MEDS: DOCUSATE SODIUM 100 MG CAP PO SCH (08:22)
[2020-12-14] MEDS: CALCITRIOL 0.25 MCG CAPSULE PO SCH (08:22)
[2020-12-14] MEDS: CLOPIDOGREL BISULFATE 75 MG TAB PO SCH (08:22)
[2020-12-14] MEDS: FAMOTIDINE 40 MG TABLET PO SCH ×2 (08:22→20:51)
[2020-12-14] MEDS: NEPHROCAPS PO SCH (08:22)
[2020-12-14] MEDS: ATORVASTATIN 40 MG TAB PO SCH (08:22)
[2020-12-14] MEDS: guaiFENesin 600 MG TABCR PO SCH ×2 (08:23→20:53)
[2020-12-14] MEDS: TRIAMCINOLONE ACET 0.1% CR 15 GM TUBE TOP SCH ×2 (08:23→20:51)
[2020-12-14 08:37] LABS: Calcium 8.5 mg/dl (8.5-10.1); Creatinine Clr Calc Pharmacy 22.7 ml/min; Est GFR (African American) 33.1; Est GFR (Non-African American) 28.6; Potassium 4.5 mmol/L (3.5-5.1)
--- NOTE | 2020-12-14 09:36 | Nephrology Progress Note ---
Date of Service December 14, 2020 Assessment & Plan (1) ESRD on hemodialysis: IHD MWF. Completed treatment yesterday. TDC used for HD. Will provided additional treatment today per MWF schedule. Miguel has not tolerated aggressive UF in the past but will aim for goal 1-2 L today as tolerated. Medications appropriately dosed for IHD. Overall, prognosis is guarded. Miguel is increasingly frail and debilitated. He has developed multiple decubiti including a large sacral wound. Given his multiple medical comorbidities, risks/benefits of continuing HD are becoming less favorable. I have discussed this with the family in the past. Palliative care consultation was obtained in September and I would suggest revisiting these goals of care during his hospitalization. Overall, prognosis is guarded. (2) Acute hyperkalemia: Improved with HD yesterday. Clearance acceptable. (3) Hypertension: Blood pressure appropriately controlled. No change to current medical therapy. Medications appropriate for IHD (4) Anemia: Maintained on Micera as outpatient. No additional JENSEN therapy at this time with Hgb >11. Admission and Anticipated Discharge Date Admission Date: December 13, 2020 Subjective Miguel is more alert today. He is communicating predominately with his eyes and nods of his head which has been about baseline. He put together a few words to repeat to be "let her call" when I asked about calling his (Princess). Miguel tolerated HD yesterday without complications. He denies dyspnea this AM. No fevers or chills. Denies pain. Review of Systems Review of Systems: Limited due to mental status and aphasia Physical Exam Constitutional: + ill appearing, + thin and + frail appearing Eyes: + anicteric sclerae; no corneal abnormality ENMT: Ears: + hearing impairment Mouth: + dry oral mucous membranes Neck: normal visual inspection and trachea midline Respiratory: normal respiratory effort Auscultation: + rales Cardiovascular: Rate/Rhythm: regular rate; + abnormal rhythm Heart Sounds: normal S1, normal S2 and + murmur Vessels: + JVD Extremities: no edema Gastrointestinal (Abdomen): Percussion/Palpation: abdomen soft; abdomen nontender Musculoskeletal: Extremities: + cyanosis; no clubbing Skin: + ecchymosis Neurologic: + not awake Motor/Sensory: no tremor Psychiatric: Orientation: + guarded; + not oriented x 3 Results & Data ([facility]) Vital Signs (Past 12 Hours) Vital Signs Temp Pulse Pulse Resp BP Pulse Ox 03/31/21 07:54 36.6 C 70 20 127/66 99 12/14/20 04:02 36.7 C 89 20 135/75 99 12/14/20 00:02 36.8 C 85 20 109/54 L 99 12/14/20 00:00 75 Laboratory Results Laboratory Results - last 24 hr 12/13/20 12/14/20 12/14/20 02:40 06:20 07:11 WBC 11.58 H RBC 3.72 L Hgb 11.0 L Hct 34.9 L MCV 93.8 MCH 29.6 MCHC 31.5 L RDW Std Deviation 62.5 H RDW Coeff of Shayy 18.3 H Plt Count 488 H MPV 9.5 Immature Gran % (Auto) 0.5 Neut % (Auto) 74.9 Lymph % (Auto) 8.9 Clayton % (Auto) 14.0 Eos % (Auto) 1.5 Baso % (Auto) 0.2 Neut # (Auto) 8.68 H Lymph # (Auto) 1.03 L Clayton # (Auto) 1.62 H Eos # (Auto) 0.17 Baso # (Auto) 0.02 Immature Gran # (Auto) 0.06 H Sodium Potassium Chloride Carbon Dioxide Anion Gap BUN Creatinine Est Cr Clr Drug Dosing Est GFR ( Amer) Est GFR (Non-Af Amer) BUN/Creatinine Ratio Glucose Calcium Nasal Screen MRSA (PCR) Negative Bld Cult Staph aureus PCR Negative Blood Culture MRSA PCR Negative 12/14/20 07:11 WBC RBC Hgb Hct MCV MCH MCHC RDW Std Deviation RDW Coeff of Shayy Plt Count MPV Immature Gran % (Auto) Neut % (Auto) Lymph % (Auto) Clayton % (Auto) Eos % (Auto) Baso % (Auto) Neut # (Auto) Lymph # (Auto) Clayton # (Auto) Eos # (Auto) Baso # (Auto) Immature Gran # (Auto) Sodium 137 Potassium 4.5 D Chloride 102 Carbon Dioxide 28 Anion Gap 7.0 BUN 37 H Creatinine 2.18 H D Est Cr Clr Drug Dosing 22.7 Est GFR ( Amer) 33.1 Est GFR (Non-Af Amer) 28.6 BUN/Creatinine Ratio 17.0 Glucose 116 H Calcium 8.5 Nasal Screen MRSA (PCR) Bld Cult Staph aureus PCR Blood Culture MRSA PCR PG Care Time/CCT Total # of Minutes Spent Total Time Spent with Patient: Total time spent is greater than 50% in coordination of care (as documented) at patient's floor/unit and/or counseling patient: Coding Level of Care Code 13918 Subseq Hosp Care Lvl 3 Diagnoses ESRD on hemodialysis N18.6; Z99.2 Acute hyperkalemia E87.5 Hypertension I10 Hypertension type: essential hypertension Anemia D64.9 (1) Hypertension Hypertension type: essential hypertension Qualified Code(s): I10 - Essential (primary) hypertension
--- NOTE | 2020-12-14 13:51 | Fluoroscopy Report ---
MODIFIED BARIUM SWALLOW CLINICAL HISTORY: r/o aspiration COMPARISON STUDY: None. FLUOROSCOPY TIME: 1 minute. TECHNIQUE: A modified barium swallow was performed in conjunction with Speech Pathology. The patient ingested varying consistencies of barium containing material. Video fluoroscopy was performed. FINDINGS: Note is made of several episodes of tracheal aspiration with thin liquids. There was dimini shed epiglottic inversion and laryngeal elevation. No aspiration was identified with nectar thick liq uids or pudding consistencies. IMPRESSION: 1. Tracheal aspiration with thin liquids, as described above. 2. No aspiration with remainder of the consistencies. 3. Full recommendations by speech pathology to follow. ACT 112: Negative or not required by law. Electronically signed by: Madan Mancilla M.D. 12/14/2020 1:50 PM
--- NOTE | 2020-12-14 15:40 | Palliative Care Consultation ---
Date of Consultation December 14, 2020 Assessment & Plan (1) Dysphagia: With history of CVA and dementia. He is on pureed diet and thickened liquids. (2) Palliative care encounter: I talked with Miguel and his , Princess, at bedside. Princess has said be fore that Miguel has never talked about what he would want for his care if he were seriously ill. I asked Miguel if he ever thinks about that and he said no. We discussed importance of understanding what is important to him in order to ensure that we provide care that matches his goals. His tells me that he loves to eat and he confirms this. He is emphatic that he would not want a PEG tube for enteral feeding if he were unable to safely swallow food. He would want to continue with oral intake maximizing his safety with consistency and proper technique for his feeding. Not being able to eat would not be a tolerable life for him. He and Princess understand the risk of aspiration and he indicates that he is willing to accept that risk by eating for comfort, knowing that this may lead to his . He is not interested in strictly comfort directed care at this point and does want to continue dialysis or hospitalization if necessary but confirms that he would not want CPR or intubation if indicated. His supports this decision. (3) Congestive heart failure (CHF): (4) Pneumonia: Laterality: right Lung location: middle lobe of lung Pneumonia type: due to unspecified organism Qualified Code(s): J18.9 - Pneumonia, unspecified organism (5) CAD (coronary artery disease): Coronary Disease-Associated Artery/Lesion type: [place] artery [place] vs. transplanted heart: [place] heart Associated angina: without angina Qualified Code(s): I25.10 - Atherosclerotic heart disease of [place] coronary artery without angina pectoris (6) Type 2 diabetes mellitus: (7) Seizure disorder: (8) Stroke: Laterality of affected vessel: unspecified (9) Dementia: Dementia type: vascular dementia History of Present Illness Reason for Consultation: goals of care Requesting Physician: Dr. Pacheco Attending Physician: Luis Enriqeu Pacheco History of Present Illness 75 yo gentleman with ESRD on hemodialysis who has history of multiple CVAs and vascular dementia. He has had four hospitalizations in the last three months. On this occasion, he was admitted with dyspnea and acute hypoxic respiratory failure with aspiration pneumonia as well as heart failure. He has had problems with aspiration in the past and is on a pureed diet with thickened liquids. He lives at home with his who feeds him and has been closely monitoring his diet. He has been seen by palliative care in the past to discuss goals of care but is more alert and has his at bedside today. He denies pain or feeling short of breath. He nods when asked if comfortable. Allergies Allergy/AdvReac Type Severity Reaction Status Date / Time adhesive Allergy Unknown BLISTERING Verified 12/13/20 01:58 OF SKIN latex Allergy Unknown Rash Verified 12/13/20 01:58 Home Medications Medication Instructions Recorded Confirmed Type Renal Caps 1 cap PO QAM #30 cap 11/20/19 12/13/20 Rx atorvastatin [Lipitor] 80 mg PO DAILY 02/18/20 12/13/20 History clopidogrel [Plavix] 75 mg PO DAILY 02/18/20 12/13/20 History levetiracetam [Keppra] 500 mg PO SUTUTHSA 02/18/20 12/13/20 History famotidine 40 mg tablet 40 mg PO BID #180 tab 03/01/20 12/13/20 Rx docusate sodium [Stool Softener] 100 mg PO DAILY 04/13/20 12/13/20 History citalopram 10 mg tablet 10 mg PO HS #30 tab 09/05/20 12/13/20 Rx isosorbide mononitrate 30 mg PO DAILY #30 tab 10/04/20 12/13/20 Rx vancomycin 125 mg capsule 125 mg PO QID #54 cap 11/23/20 12/13/20 Rx amlodipine 2.5 mg PO HS 11/28/20 12/13/20 History calcitriol [Rocaltrol] 0.25 mcg PO MOWEFR 11/28/20 12/13/20 History collagenase clostridium histo. 1 applic TOPICAL UD 11/28/20 12/13/20 History [Santyl] wound dressings 1 applic TOPICAL DAILY #1 tube 12/01/20 12/13/20 Rx triamcinolone acetonide 0.1 % 1 applic TOPICAL BID 7 Days #30 g 12/08/20 12/13/20 Rx topical cream Patient History Medical History Acidosis, lactic Benign prostatic hyperplasia CAD (coronary artery disease) s/p CABG 2007 Carotid artery stenosis s/p remote R & L endarterectomies with L re-occlusion sometime before 2010. Being monitored by [facility] neuro, on Plavix. Chronic kidney disease Congestive heart failure (CHF) Dementia Depression Diabetes mellitus, type 2 A1C 5.4% 11/2019. Not on any medication. Diabetic peripheral neuropathy Esophageal reflux Flash pulmonary edema 11/2019 Hemodialysis patient MON/SAT/SATURDAY [facility] 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 (1 YEAR AFTER SC) ? Hyperlipidemia Hypertension Memory problem PT REPORTS "DEMENTIA" "COMES AND GOES" Myocardial Infarction 1989? Renal artery stenosis s/p left renal artery stenting; moderate right renal artery stenosis but no significant left renal artery stenosis on 11/2019 duplex Seizure disorder Stable on Keppra, no seizure for "a long time." Follows with [facility] neurology. SNHL (sensorineural hearing loss) Surgical History History of aorto-femoral bypass History of bypass graft (non vein) Aortic-femoral or bifemoral History of carotid endarterectomy L 1998, R 2009 History of cataract surgery RT/LEFT History of colonoscopy History of esophagogastroduodenoscopy (EGD) History of tooth extraction History of vascular access device IJ FOR DIAYLSIS S/P CABG (coronary artery bypass graft) (2007) [facility] Family History Brother Hypertension Hypercholesteremia Sister Diabetes Unknown Hypertension Cardiac disorder Social History Smoking Status: Former smoker Tobacco Type: Cigarettes Cigarettes Per Day: 30; Second Hand Exposure: No; Hx Alcohol Use: No Hx Substance Use: No Preferred Language: Tu[place] Communication Ability: Impaired Visual Impairment: No Limitations Physicist Astrophysics Required: No Beliefs That Will Affect Care: None marital status: Current Living Situation: Spouse Current Living Situation Comment: at 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" Feels Safe at Home: Yes caffeine: No Seatbelt Use: always Assistive Devices: Oxygen - Continuous Review of Systems Review of Systems: Lucinda Symptom Assessment Scale Pain 0/3 Dyspnea 0/3 at rest Nausea 0/3 Fatigue 2/3 Anxiety 0/3 Anorexia 0/3 per his Palliative Performance Score 40% Physical Exam Constitutional: no acute distress ENMT: Mouth: + dry oral mucous membranes Respiratory: normal respiratory effort; no labored breathing Gastrointestinal (Abdomen): Inspection/Auscultation: abdomen not distended Percussion/Palpation: abdomen nontender Neurologic: limited verbal interaction, confused at times Psychiatric: Orientation: alert Results & Data ([facility]) Vital Signs (Past 12 Hours) Vital Signs Temp Pulse Pulse Pulse Resp BP BP 12/14/20 12:35 98.2 F 85 85 116/68 116/68 12/14/20 12:20 64 97/67 L 12/14/20 12:00 91 H 93/67 L 12/14/20 11:40 90 97/74 L 12/14/20 11:25 67 107/68 12/14/20 11:20 58 L 94/51 L 12/14/20 11:05 95 H 107/70 12/14/20 11:00 42 L 89/58 L 12/14/20 10:50 92 H 105/57 L 12/14/20 10:40 90 92/63 L 12/14/20 10:20 62 117/55 L 12/14/20 10:00 81 103/65 12/14/20 09:40 74 104/63 12/14/20 09:33 97.7 F 54 L 54 L 107/69 12/14/20 08:00 80 12/14/20 07:54 97.9 F 70 20 127/66 12/14/20 04:02 98.1 F 89 20 135/75 Pulse Ox 12/14/20 12:35 12/14/20 12:20 12/14/20 12:00 12/14/20 11:40 12/14/20 11:25 12/14/20 11:20 12/14/20 11:05 12/14/20 11:00 12/14/20 10:50 12/14/20 10:40 12/14/20 10:20 12/14/20 10:00 12/14/20 09:40 12/14/20 09:33 12/14/20 08:00 12/14/20 07:54 99 12/14/20 04:02 99 PG Care Time/CCT Total # of Minutes Spent Total Time Spent with Patient: Total time spent is greater than 50% in coordination of care (as documented) at patient's floor/unit and/or counseling patient: total time spent 60 minutes with more than 50% of time spent on discussion of goals of care, CPR and code status. Coding Level of Care Code 97328 Inpt Consult Level 3 Diagnoses Dysphagia R13.10 Palliative care encounter Z51.5 Congestive heart failure (CHF) I50.9 Pneumonia J18.9 Laterality: right Lung location: middle lobe of lung Pneumonia type: due to unspecified organism CAD (coronary artery disease) I25.10 Coronary Disease-Associated Artery/Lesion type: [place] artery [place] vs. transplanted heart: [place] heart Associated angina: without angina Type 2 diabetes mellitus E11.9 Seizure disorder G40.909 Stroke I63.9 Laterality of affected vessel: unspecified Dementia F03.90 Dementia type: vascular dementia
[2020-12-14] MEDS: CITALOPRAM 20 MG TAB PO SCH (20:51)
[2020-12-14] MEDS: amLODIPine BESYLATE 5 MG TAB PO SCH (20:51)
--- NOTE | 2020-12-14 21:17 | Hospitalist Progress Note ---
Date of Service December 14, 2020 Assessment & Plan (1) Hypoxia: Possible aspiration pneumonia Possible pulmonary edema from volume overload Patient with acute hypoxic respiratory failure on arrival. Saturation of 75% on room air by EMS, 85% on 6L NC. Per ER attending, patient had an episode of coughing in the ER after which his respiratory distress improved. ?mucus plugging or aspiration event. Presently patient is breathing comfortably and saturating well on 6L Oxymask - 98% Labs with leukocytosis with neutrophils and bands as well as thrombocytosis BNP elevated >01850 -Admission to [facility] with telemetry -Swallow evaluation -Patient failed -Oxygen requirement has been improving after HD and antibiotics. -will continue zosyn -appreciate input from palliative care. (2) CAD (coronary artery disease): CAD (coronary artery disease): s/p CABG 2007. -Continue Atorvastatin, Plavix and Imdur (3) Seizure disorder: Chronic -Continue Keppra (4) Stroke: With significant deficits. Patient essentially nonverbal. Requires assistance for all ADLs -Continue Atorvastatin 80mg po daily -Continue Plavix (5) Hypertension: Blood pressure appropriately controlled, 115/76 -Continue Amlodipine 2.5mg po daily -Continue Isosorbide 30mg po daily -Continue to monitor (6) Depression: Chronic -Continue Citalopram (7) GERD (gastroesophageal reflux disease): Chronic. Stable -Continue Pepcid 40mg po BID (8) ESRD on hemodialysis: Chronic. HD q M/W/. Last full treatment was yesterday -Continue Calcitriol Continue Renal caps (9) Pressure ulcer of sacral region, stage 3: Wound Care q daily Patient with poor Albumin - suspect poor nutritional state making wound healing difficult -Encourage PO intake as tolerated with aspiration precautions -Consider Nutrition consultation, supplementation -Continue Santyl ointment F/E/N - Heplock. Monitor electrolytes. Renal diet/AHA, pureed with honey thick liquids and aspiration precautions - further recommendations per Speech Ppx - SCDs Code - DNR/DNI per discussion with Admission and Anticipated Discharge Date Admission Date: December 13, 2020 Subjective Patient cannot verbalize complaints. But through yes and no questions, states that he is comfortable and is breathing better. Review of Systems Review of Systems: All systems reviewed & are unremarkable except as noted in HPI & below Physical Exam Physical Exam: General: patient resting comfortably, nasal cannula , NAD, does not answer questions appropriately, following commands, alert and attentive Skin: warm, dry, decubiti not visualized on backside HEENT: NC/AT, anicteric sclera, conjunctiva without injection, external ear no rmal to inspection and nontender, nares patent, moist mucus membranes, dentition intact, no oropharyngeal lesions, neck supple, trachea midline, no LAD, no thyromegaly, no JVD Heart: +S1/S2, regular, tachycardic, no m/r/g Lungs: equal air entry bilaterally, rales at bases Abd: +BS, soft, NT/ND, no masses/organomegaly/ascites Ext: warm, 2+ pulses in UE/LE bilaterally, no clubbing/cyanosis or edema Results & Data Results & Data ([facility]) Vital Signs (Past 12 Hours) Vital Signs Temp Pulse Pulse Pulse Resp BP BP 12/14/20 19:56 36.6 C 81 18 103/64 12/14/20 15:37 36.8 C 69 81 135/69 12/14/20 15:34 84 12/14/20 12:35 36.8 C 85 85 116/68 116/68 12/14/20 12:20 64 97/67 L 12/14/20 12:00 91 H 93/67 L 12/14/20 11:40 90 97/74 L 12/14/20 11:25 67 107/68 12/14/20 11:20 58 L 94/51 L 12/14/20 11:05 95 H 107/70 12/14/20 11:00 42 L 89/58 L 12/14/20 10:50 92 H 105/57 L 12/14/20 10:40 90 92/63 L 12/14/20 10:20 62 117/55 L 12/14/20 10:00 81 103/65 12/14/20 09:40 74 104/63 12/14/20 09:33 36.5 C 54 L 54 L 107/69 Pulse Ox 12/14/20 19:56 96 12/14/20 15:37 98 12/14/20 15:34 12/14/20 12:35 12/14/20 12:20 12/14/20 12:00 12/14/20 11:40 12/14/20 11:25 12/14/20 11:20 12/14/20 11:05 12/14/20 11:00 12/14/20 10:50 12/14/20 10:40 12/14/20 10:20 12/14/20 10:00 12/14/20 09:40 12/14/20 09:33 PG Care Time/CCT Total # of Minutes Spent Total Time Spent with Patient: Total time spent is greater than 50% in coordination of care (as documented) at patient's floor/unit and/or counseling patient: Coding Level of Care Code 55630 Subseq Hosp Care Lvl 3 Diagnoses Hypoxia R09.02 CAD (coronary artery disease) I25.10 Associated angina: without angina Coronary Disease-Associated Artery/Lesion type: [place] artery [place] vs. transplanted heart: [place] heart Seizure disorder G40.909 Stroke I63.9 Laterality of affected vessel: unspecified Hypertension I10 Hypertension type: essential hypertension Depression F32.9 Depression Type: unspecified GERD (gastroesophageal reflux disease) K21.9 Esophagitis presence: esophagitis presence not specified ESRD on hemodialysis N18.6; Z99.2 Pressure ulcer of sacral region, stage 3 L89.153 Time Spent (min) 35 (1) CAD (coronary artery disease) Associated angina: without angina Coronary Disease-Associated Artery/Lesion type: [place] artery [place] vs. transplanted heart: [place] heart Qualified Code(s): I25.10 - Atherosclerotic heart disease of [place] coronary artery without angina pectoris (2) Depression Depression Type: unspecified Qualified Code(s): F32.9 - Major depressive disorder, single episode, unspecified (3) GERD (gastroesophageal reflux disease) Esophagitis presence: esophagitis presence not specified Qualified Code(s): K21.9 - Gastro-esophageal reflux disease without esophagitis (4) Hypertension Hypertension type: essential hypertension Qualified Code(s): I10 - Essential (primary) hypertension (5) Stroke Laterality of affected vessel: unspecified
[2020-12-15] MEDS: PIPERACILLIN/TAZOBACTAM 3.375 GM in DEXTROSE 5% 100 ML IV SCH ×2 (04:05→16:07)
[2020-12-15 07:45] LABS: Creatinine Clr Calc Pharmacy 23.3 ml/min; Est GFR (African American) 35.3; Est GFR (Non-African American) 30.4
[2020-12-15] MEDS: CLOPIDOGREL BISULFATE 75 MG TAB PO SCH (10:23)
[2020-12-15] MEDS: FAMOTIDINE 40 MG TABLET PO SCH ×2 (10:24→20:20)
[2020-12-15] MEDS: NEPHROCAPS PO SCH (10:24)
[2020-12-15] MEDS: ATORVASTATIN 40 MG TAB PO SCH (10:25)
[2020-12-15] MEDS: levETIRAcetam 500 MG TAB PO SCH (10:25)
[2020-12-15] MEDS: ISOSORBIDE MONO EXTENDED REL 30 MG TABCR PO SCH (10:26)
--- NOTE | 2020-12-15 10:41 | Nephrology Progress Note ---
Date of Service December 15, 2020 Assessment & Plan (1) ESRD on hemodialysis: IHD MWF. Completed treatment yesterday. TDC used for HD. Next treatment anticipated for tomorrow. BP and volume status are currently acceptable. Miguel has had adequate clearance with treatment. Medications appropriately dosed for IHD. Overall, prognosis is guarded. Miguel is increasingly frail and debilitated. He has developed pressure ulcers. Palliative care consultation appreciated. Family has expressed desire to continue dialysis and Miguel expressed agreement. (2) Acute hyperkalemia: Improved with HD yesterday. Clearance acceptable. (3) Hypertension: Blood pressure appropriately controlled. No change to current medical therapy. Medications appropriate for IHD (4) Anemia: Maintained on Micera as outpatient. No additional JENSEN therapy at this time with Hgb >11. Admission and Anticipated Discharge Date Admission Date: December 13, 2020 Subjective No acute events overnight. Tolerated HD without complications yesterday. UF limited to 1 L due to hypotension. Miguel is tired this AM but otherwise no concerns. Answering 'yes/no' consistent with baseline. Review of Systems Review of Systems: All systems reviewed & are unremarkable except as noted in HPI & below Limited response due to aphasia Physical Exam Constitutional: + ill appearing, + thin and + frail appearing Eyes: + anicteric sclerae; no corneal abnormality ENMT: Ears: + hearing impairment Mouth: + dry oral mucous membranes Neck: normal visual inspection and trachea midline Respiratory: normal respiratory effort Auscultation: + rales Cardiovascular: Rate/Rhythm: regular rate; + abnormal rhythm Heart Sounds: normal S1, normal S2 and + murmur Vessels: + JVD Extremities: no edema Gastrointestinal (Abdomen): Percussion/Palpation: abdomen soft; abdomen nontender Musculoskeletal: Extremities: + cyanosis; no clubbing Skin: + ecchymosis Neurologic: + not awake Motor/Sensory: no tremor Psychiatric: Orientation: + guarded; + not oriented x 3 Results & Data ([facility]) Vital Signs (Past 12 Hours) Vital Signs Temp Pulse Pulse Resp BP Pulse Ox 12/15/20 08:00 83 12/15/20 07:42 36.5 C 74 18 133/69 98 12/15/20 04:19 36.7 C 92 H 16 130/83 100 12/15/20 00:00 91 H 12/14/20 23:51 36.6 C 94 H 16 135/86 98 Laboratory Results Laboratory Results - last 24 hr 12/15/20 06:27 Creatinine 2.07 H Est Cr Clr Drug Dosing 23.3 Est GFR ( Amer) 35.3 Est GFR (Non-Af Amer) 30.4 PG Care Time/CCT Total # of Minutes Spent Total Time Spent with Patient: Total time spent is greater than 50% in coordination of care (as documented) at patient's floor/unit and/or counseling patient: Coding Level of Care Code 55002 Subseq Hosp Care Lvl 3 Diagnoses ESRD on hemodialysis N18.6; Z99.2 Acute hyperkalemia E87.5 Hypertension I10 Hypertension type: essential hypertension Anemia D64.9 (1) Hypertension Hypertension type: essential hypertension Qualified Code(s): I10 - Essential (primary) hypertension
[2020-12-15] MEDS: DOCUSATE SODIUM 100 MG CAP PO SCH (11:16)
[2020-12-15] MEDS: guaiFENesin 600 MG TABCR PO SCH ×2 (11:17→20:19)
[2020-12-15] MEDS: TRIAMCINOLONE ACET 0.1% CR 15 GM TUBE TOP SCH ×2 (12:14→20:20)
[2020-12-15] MEDS: amLODIPine BESYLATE 5 MG TAB PO SCH (20:20)
[2020-12-15] MEDS: CITALOPRAM 20 MG TAB PO SCH (20:21)
--- NOTE | 2020-12-15 23:12 | Hospitalist Progress Note ---
Date of Service December 15, 2020 Assessment & Plan (1) Hypoxia: Possible aspiration pneumonia Possible pulmonary edema from volume overload Patient with acute hypoxic respiratory failure on arrival. Saturation of 75% on room air by EMS, 85% on 6L NC. Per ER attending, patient had an episode of coughing in the ER after which his respiratory distress improved. ?mucus plugging or aspiration event. Presently patient is breathing comfortably and saturating well on 6L [place] - 98% Labs with leukocytosis with neutrophils and bands as well as thrombocytosis BNP elevated >99089 -Admission to medical with telemetry -Swallow evaluation -Patient failed -appreciate palliative care consult: He is emphatic that he would not want a PEG tube for enteral feeding if he were unable to safely swallow food. He would want to continue with oral intake maximizing his safety with consistency and proper technique for his feeding. Not being able to eat would not be a tolerable life for him. -Oxygen requirement has been improving after HD and antibiotics: now on room air.. -will continue zosyn: can titrate to orals on discharge. -appreciate input from palliative care. recommend discharge on Saturday. Tomorrow is HD (2) CAD (coronary artery disease): CAD (coronary artery disease): s/p CABG 2007. -Continue Atorvastatin, Plavix and Imdur (3) Seizure disorder: Chronic -Continue Keppra (4) Stroke: With significant deficits. Patient essentially nonverbal. Requires assistance for all ADLs -Continue Atorvastatin 80mg po daily -Continue Plavix (5) Hypertension: Blood pressure appropriately controlled, 115/76 -Continue Amlodipine 2.5mg po daily -Continue Isosorbide 30mg po daily -Continue to monitor (6) Depression: Chronic -Continue Citalopram (7) GERD (gastroesophageal reflux disease): Chronic. Stable -Continue Pepcid 40mg po BID (8) ESRD on hemodialysis: Chronic. HD q M/W/F. Last full treatment was yesterday -Continue Calcitriol Continue Renal caps (9) Pressure ulcer of sacral region, stage 3: Wound Care q daily Patient with poor Albumin - suspect poor nutritional state making wound healing difficult -Encourage PO intake as tolerated with aspiration precautions -Consider Nutrition consultation, supplementation -Continue Santyl ointment F/E/N - [place]. Monitor electrolytes. Renal diet/AHA, pureed with honey thick liquids and aspiration precautions - further recommendations per Speech Ppx - SCDs Code - DNR/DNI per discussion with Admission and Anticipated Discharge Date Admission Date: December 13, 2020 Subjective Patient answers yes and no questions by nodding. He has no new complaints,a nd feels like he is improving. Review of Systems Review of Systems: All systems reviewed & are unremarkable except as noted in HPI & below Physical Exam Physical Exam: General: patient resting comfortably, nasal cannula , NAD, does not answer questions appropriately, following commands, alert and attentive Skin: warm, dry, decubiti not visualized on backside HEENT: NC/AT, anicteric sclera, conjunctiva without injection, external ear normal to inspection and nontender, nares patent, moist mucus membranes, dentition intact, no oropharyngeal lesions, neck supple, trachea midline, no LAD, no thyromegaly, no JVD Heart: +S1/S2, regular, tachycardic, no m/r/g Lungs: equal air entry bilaterally, rales at bases Abd: +BS, soft, NT/ND, no masses/organomegaly/ascites Ext: warm, 2+ pulses in UE/LE bilaterally, no clubbing/cyanosis or edema Results & Data Results & Data ([facility]) Vital Signs (Past 12 Hours) Vital Signs Temp Pulse Pulse Pulse Resp BP Pulse Ox 12/15/20 22:57 36.6 C 83 18 156/83 H 94 12/15/20 20:18 83 16 147/83 H 94 12/15/20 15:52 36.9 C 74 20 132/63 94 12/15/20 14:48 81 12/15/20 11:15 37.3 C 86 22 124/60 95 PG Care Time/CCT Total # of Minutes Spent Total Time Spent with Patient: Total time spent is greater than 50% in coordination of care (as documented) at patient's floor/unit and/or counseling patient: Coding Level of Care Code 35876 Subseq Hosp Care Lvl 3 Diagnoses Hypoxia R09.02 CAD (coronary artery disease) I25.10 Associated angina: without angina Coronary Disease-Associated Artery/Lesion type: [place] artery [place] vs. transplanted heart: [place] heart Seizure disorder G40.909 Stroke I63.9 Laterality of affected vessel: unspecified Hypertension I10 Hypertension type: essential hypertension Depression F32.9 Depression Type: unspecified GERD (gastroesophageal reflux disease) K21.9 Esophagitis presence: esophagitis presence not specified ESRD on hemodialysis N18.6; Z99.2 Pressure ulcer of sacral region, stage 3 L89.153 Time Spent (min) 35 (1) CAD (coronary artery disease) Associated angina: without angina Coronary Disease-Associated Artery/Lesion type: [place] artery [place] vs. transplanted heart: [place] heart Qualified Code(s): I25.10 - Atherosclerotic heart disease of [place] coronary artery without angina pectoris (2) Depression Depression Type: unspecified Qualified Code(s): F32.9 - Major depressive disorder, single episode, unspecified (3) GERD (gastroesophageal reflux disease) Esophagitis presence: esophagitis presence not specified Qualified Code(s): K21.9 - Gastro-esophageal reflux disease without esophagitis (4) Hypertension Hypertension type: essential hypertension Qualified Code(s): I10 - Essential (primary) hypertension (5) Stroke Laterality of affected vessel: unspecified
[2020-12-16] MEDS: PIPERACILLIN/TAZOBACTAM 3.375 GM in DEXTROSE 5% 100 ML IV SCH ×2 (04:37→16:29)
[2020-12-16 07:47] LABS: Albumin Level 1.8 gm/dl (3.4-5.0); Calcium 8.2 mg/dl (8.5-10.1); Creatinine Clr Calc Pharmacy 16.4 ml/min; Est GFR (Non-African American) 19.8; Phosphorus 4.1 mg/dl (2.5-4.9); Potassium 4.2 mmol/L (3.5-5.1)
[2020-12-16 08:07] LABS: Hematocrit (blood only) 32.3 % (42-52); Hemoglobin 10.4 g/dL (14.0-18.0)
--- NOTE | 2020-12-16 09:44 | Nephrology Progress Note ---
Date of Service December 16, 2020 Assessment & Plan (1) ESRD on hemodialysis: IHD MWF. TDC used for HD. Orders for HD today entered into EMR and reviewed with HD nurse. BP and volume status are currently acceptable. Miguel has had adequate clearance with treatment. UF goal today 2 L. Medications appropriately dosed for IHD. Overall, prognosis is guarded. Miguel is increasingly frail and debilitated. He has developed pressure ulcers. Palliative care consultation appreciated. Family has expressed desire to continue dialysis and Miguel expressed agreement. Resume outpatient treatments at [facility] post discharge. (2) Hypertension: Blood pressure appropriately controlled. No change to current medical therapy. Medications appropriate for IHD (3) Anemia: Maintained on Micera as outpatient. No additional JENSEN therapy at this time with Hgb >10. (4) Goals of care, counseling/discussion: Updated with Miguel and his . Plan to continue HD. Comfort feeds despite aspiration risk. DNR/DNI. Admission and Anticipated Discharge Date Admission Date: December 13, 2020 Subjective No acute events overnight. Miguel was seen and evaluated prior to and during HD this AM. He feels well. He is breathing comfortably. Miguel denies pain. No fevers or chills. Miguel was emphatic in stating that he wanted to go home. He is tolerating HD well. Review of Systems Review of Systems: All systems reviewed & are unremarkable except as noted in HPI & below Physical Exam Constitutional: + thin and + frail appearing; no acute distress Eyes: + anicteric sclerae; no corneal abnormality ENMT: Ears: + hearing impairment Mouth: oral mucous membranes not dry Neck: normal visual inspection and trachea midline Respiratory: normal respiratory effort Auscultation: lungs clear to auscultation bilaterally Cardiovascular: Rate/Rhythm: regular rate and regular rhythm Heart Sounds: normal S2 and + murmur Vessels: no JVD Extremities: no edema Gastrointestinal (Abdomen): Percussion/Palpation: abdomen soft; abdomen nontender Musculoskeletal: Extremities: no cyanosis and no clubbing Skin: + ecchymosis Neurologic: awake Motor/Sensory: no tremor Psychiatric: Orientation: + guarded; + not oriented x 3 Results & Data ([facility]) Vital Signs (Past 12 Hours) Vital Signs Temp Pulse Resp BP Pulse Ox 12/16/20 07:00 37.5 C 88 18 139/82 93 12/15/20 22:57 36.6 C 83 18 156/83 H 94 Laboratory Results Laboratory Results - last 24 hr 12/16/20 12/16/20 06:54 06:54 Hgb 10.4 L Hct 32.3 L Sodium 136 Potassium 4.2 Chloride 104 Carbon Dioxide 23 Anion Gap 9.0 BUN 65 H D Creatinine 2.95 H D Est Cr Clr Drug Dosing 16.4 Est GFR ( Amer) 23.0 Est GFR (Non-Af Amer) 19.8 BUN/Creatinine Ratio 22.0 H Glucose 131 H Calcium 8.2 L Phosphorus 4.1 Albumin 1.8 L PG Care Time/CCT Total # of Minutes Spent Total Time Spent with Patient: Total time spent is greater than 50% in coordination of care (as documented) at patient's floor/unit and/or counseling patient: Coding Level of Care Code 05183 Subseq Hosp Care Lvl 3 Diagnoses ESRD on hemodialysis N18.6; Z99.2 Hypertension I10 Hypertension type: essential hypertension Anemia D64.9 Goals of care, counseling/discussion Z71.89 (1) Hypertension Hypertension type: essential hypertension Qualified Code(s): I10 - Essential (primary) hypertension
[2020-12-16] MEDS: DOCUSATE SODIUM 100 MG CAP PO SCH (12:19)
[2020-12-16] MEDS: TRIAMCINOLONE ACET 0.1% CR 15 GM TUBE TOP SCH ×2 (12:20→20:30)
[2020-12-16] MEDS: ISOSORBIDE MONO EXTENDED REL 30 MG TABCR PO SCH (12:20)
[2020-12-16] MEDS: guaiFENesin 600 MG TABCR PO SCH ×2 (12:21→20:27)
[2020-12-16] MEDS: ATORVASTATIN 40 MG TAB PO SCH (12:21)
[2020-12-16] MEDS: FAMOTIDINE 40 MG TABLET PO SCH ×2 (12:22→20:27)
[2020-12-16] MEDS: CLOPIDOGREL BISULFATE 75 MG TAB PO SCH (12:22)
[2020-12-16] MEDS: NEPHROCAPS PO SCH (12:22)
[2020-12-16] MEDS: CALCITRIOL 0.25 MCG CAPSULE PO SCH (12:23)
--- NOTE | 2020-12-16 15:24 | Hospitalist Progress Note ---
Date of Service December 16, 2020 Assessment & Plan (1) Aspiration pneumonia: Due to poor swallow from prior CVA. He has GELACIO aspiration with thin liquids. Note: Seen by palliative and WOULD NOT want PEG tube. GERMINATION TESTING MANAGER recs: * Puree diet with NECTAR thick liquids * Patient will need to be fed ALL meals * Mouth care * Aspiration precautions such as: Alternate solids and liquids, crush medications, supervise meals, fully alert and upright for meals, meds in a carrier (applesauce or pudding), small bites, small sips. NO STRAWS. - Continue Augmentin x 10 days (End date: 12/23/2020) (2) CAD (coronary artery disease): CAD (coronary artery disease): s/p CABG 2007. - Continue atorvastatin, Plavix, and Imdur (3) Stroke: With significant deficits. Patient essentially non-verbal and requires assistance for all ADLs. - Continue atorvastatin 80mg po daily - Continue Plavix (4) ESRD on hemodialysis: Chronic. HD q M//. Last full treatment was 12/16/2020. - Continue Calcitriol - Continue Renal caps (5) Seizure disorder: Chronic. No seizures in the hospital. - Continue Keppra (6) Hypertension: Blood pressure high today at 165/90. - Continue amlodipine 2.5mg po daily - Continue isosorbide 30mg po daily - Continue to monitor (7) Depression: Chronic. No overt depressive symptoms today. - Continue citalopram (8) GERD (gastroesophageal reflux disease): Chronic. Stable. - Continue Pepcid 40mg po BID (9) Pressure ulcer of sacral region, stage 3: Wound Care q daily. Patient with poor albumin - suspect poor nutritional state making wound healing difficult. - Encourage PO intake as tolerated with aspiration precautions - Continue Santyl ointment (10) DVT prophylaxis: SCDs Admission and Anticipated Discharge Date Admission Date: December 13, 2020 Subjective Reports he "coughs a lot" but denies any shortness of breath, fevers, chills. While in the room, he coughs with a weak cough. Reports no fevers/chills, chest pain, abdominal pain, nausea, or vomiting. Physical Exam Constitutional: WD/WN, vitals as above Eyes: EOM intact bilaterally; no conjunctival abnormality ENMT: external ear and nose normal, oropharynx normal Neck: trachea midline, no thyromegaly normal visual inspection Respiratory: normal respiratory effort, lungs clear to auscultation no respiratory distress Cardiovascular: RRR, no murmur, no edema Gastrointestinal (Abdomen): Inspection/Auscultation: abdomen normal to inspection; abdomen not distended Musculoskeletal: no cyanosis or clubbing, extremities motor strength 5/5 Skin: no rashes, warm and dry Neurologic: moves all extremities and awake Speech / Cognition: + abnormal speech (High voice with difficult enunciation.) Psychiatric: Orientation: alert, oriented to person and cooperative Results & Data Results & Data ([facility]) Vital Signs (Past 12 Hours) Vital Signs Temp Pulse Pulse Pulse Resp BP BP 12/16/20 12:17 36.5 C 92 H 16 164/88 H 12/16/20 12:00 36.6 C 80 122/89 12/16/20 11:40 57 L 114/88 12/16/20 11:20 60 80/59 L 12/16/20 11:00 69 111/79 12/16/20 10:40 93 H 131/88 12/16/20 10:20 92 H 139/84 12/16/20 10:00 52 L 117/82 12/16/20 09:40 90 128/83 12/16/20 09:20 92 H 128/77 12/16/20 09:00 86 121/73 12/16/20 08:51 36.9 C 86 12/16/20 07:00 37.5 C 88 18 139/82 Pulse Ox 12/16/20 12:17 93 12/16/20 12:00 12/16/20 11:40 12/16/20 11:20 12/16/20 11:00 12/16/20 10:40 12/16/20 10:20 12/16/20 10:00 12/16/20 09:40 12/16/20 09:20 12/16/20 09:00 12/16/20 08:51 12/16/20 07:00 93 PG Care Time/CCT Total # of Minutes Spent Total Time Spent with Patient: Total time spent is greater than 50% in coordination of care (as documented) at patient's floor/unit and/or counseling patient: Coding Level of Care Code 56545 Subseq Hosp Care Lvl 2 Diagnoses Aspiration pneumonia J69.0 CAD (coronary artery disease) I25.10 Coronary Disease-Associated Artery/Lesion type: [place] artery [place] vs. transplanted heart: [place] heart Associated angina: without angina Stroke I63.9 Laterality of affected vessel: unspecified ESRD on hemodialysis N18.6; Z99.2 Seizure disorder G40.909 Hypertension I10 Hypertension type: essential hypertension Depression F32.9 Depression Type: unspecified GERD (gastroesophageal reflux disease) K21.9 Esophagitis presence: esophagitis presence not specified Pressure ulcer of sacral region, stage 3 L89.153 DVT prophylaxis Z29.9 (1) CAD (coronary artery disease) Coronary Disease-Associated Artery/Lesion type: [place] artery [place] vs. transplanted heart: [place] heart Associated angina: without angina Qualified Code(s): I25.10 - Atherosclerotic heart disease of [place] coronary artery without angina pectoris (2) Stroke Laterality of affected vessel: unspecified (3) Hypertension Hypertension type: essential hypertension Qualified Code(s): I10 - Essential (primary) hypertension (4) Depression Depression Type: unspecified Qualified Code(s): F32.9 - Major depressive disorder, single episode, unspecified (5) GERD (gastroesophageal reflux disease) Esophagitis presence: esophagitis presence not specified Qualified Code(s): K21.9 - Gastro-esophageal reflux disease without esophagitis
--- NOTE | 2020-12-16 19:36 | Communication Note ---
Date of Service: December 16, 2020 Called to bedside by nursing, given changes to vitals and increased work of breathing noticed following shift change. On my presentation to the bedside jaleel ent appearing well, in no apparent distress, but slightly tachypneic. Discussed with nursing that this represented change, as patient had previously been breathing easily. Patient answering all questions villafana-positive, including contradicting questions. On review of chart patient is here for aspiration pneumonia due to poor swallow from prior CVA. Given limited ability for patient to provide complete history of these changes, ordered EKG, troponin, CBC, CMP, and CXR. CBC with marginal elevation of WBC count. No significant electrolyte abnormalities, improvement in creatinine. Troponin 0.039 (level on 12/13 of 0.043) Chest x-ray demonstrating bilateral layering pleural effusions with consolidation, and noted slight improvement of right upper lobe opacity. Continue Zosyn at this time, patient had negative nasal MRSA swab on 12/13. If development of fevers or if concerns for worsening pneumonia would consider addition of staph or atypical antibiotic coverage. Resident Activity Tracking Resident Involvement: Resident Care Provided and Crew Truck Driver Coverage Note Care Provided: Adult Hospital Medicine
[2020-12-16 20:03] LABS: Basophils # (auto) 0.03 K/uL (0-0.2); Basophils % (auto) 0.2 %; Eosinophils # (auto) 0.04 K/uL (0-0.5); Eosinophils % (auto) 0.3 %; Hematocrit (blood only) 36.6 % (42-52); Hemoglobin 11.1 g/dL (14.0-18.0); Immature Granulocytes % (auto) 0.7 %; Lymphocytes # (auto) 0.92 K/uL (1.2-3.4); Lymphocytes % (auto) 6.6 %; Mean Corpuscular Hemoglobin 28.9 pg (25-34); Mean Corpuscular Volume 95.3 fL (80-100); Mean Platelet Volume 9.4 fL (7.4-10.4); Monocytes # (auto) 1.98 K/uL (0.11-0.59); Monocytes % (auto) 14.1 %; Neutrophils # (auto) 10.94 K/uL (1.4-6.5); Neutrophils % (auto) 78.1 %; Platelet Count 478 K/uL (130-400); RDW Coefficient of Variation 18.1 % (11.5-14.5); RDW Standard Deviation 62.6 fL (36.4-46.3); Red Blood Count 3.84 M/uL (4.7-6.1); White Blood Count 14.01 K/uL (4.8-10.8)
[2020-12-16 20:04] LABS: Mean Corpuscular Hgb Conc 30.3 g/dL (32-36)
--- NOTE | 2020-12-16 20:11 | XRay Report ---
SINGLE VIEW CHEST CLINICAL HISTORY: Dyspnea. FINDINGS: An AP, portable, upright chest radiograph is compared to study dated 12/13/2020 and correlat ed with chest CT dated 02/04/2020. The examination is degraded by portable technique and patient rotat ion. A right sided central venous catheter is unchanged in position. The patient is status post midli ne sternotomy. The heart is enlarged. There is mild pulmonary vascular congestion. Emphysema and senior administrative associate levi interstitial thickening are similar to previous. There are layering pleural effusions with bibasi lar consolidation. No pneumothorax is seen. The skeletal structures are osteopenic. The bony thorax i s grossly intact. IMPRESSION: 1. Cardiomegaly and emphysema with evidence of congestive failure. This is similar to previous. 2. Layering pleural effusions with bibasilar consolidation. ACT 112: Negative or not required by law. Electronically signed by: Servando Mtz M.D. 12/16/2020 8:10 PM
[2020-12-16] MEDS: CITALOPRAM 20 MG TAB PO SCH (20:27)
[2020-12-16 20:30] LABS: BUN Creatinine Ratio 16.6 (10-20); Calcium 8.2 mg/dl (8.5-10.1); Creatinine Clr Calc Pharmacy 21.8 ml/min; Est GFR (African American) 33.7; Est GFR (Non-African American) 29.1; Troponin I 0.039 ng/ml (0-0.045)
[2020-12-16] MEDS: amLODIPine BESYLATE 5 MG TAB PO SCH (20:30)
[2020-12-16] MEDS: ACETAMINOPHEN 325 MG TAB PO PRN ×2 (20:30→22:15)
[2020-12-16 20:31] LABS: Potassium 4.5 mmol/L (3.5-5.1)
[2020-12-17] MEDS: PIPERACILLIN/TAZOBACTAM 3.375 GM in DEXTROSE 5% 100 ML IV SCH (03:40)
[2020-12-17 06:13] LABS: Hematocrit (blood only) 35.3 % (42-52); Hemoglobin 11.3 g/dL (14.0-18.0); Mean Corpuscular Volume 93.6 fL (80-100); Mean Platelet Volume 9.5 fL (7.4-10.4); Platelet Count 475 K/uL (130-400); RDW Standard Deviation 61.7 fL (36.4-46.3); Red Blood Count 3.77 M/uL (4.7-6.1); White Blood Count 15.89 K/uL (4.8-10.8)
[2020-12-17 06:52] LABS: BUN Creatinine Ratio 21.3 (10-20); Calcium 8.3 mg/dl (8.5-10.1); Creatinine Clr Calc Pharmacy 18.8 ml/min; Est GFR (African American) 28.1; Est GFR (Non-African American) 24.2; Magnesium 2.3 mg/dl (1.8-2.4); Potassium 3.4 mmol/L (3.5-5.1)
[2020-12-17] MEDS: CLOPIDOGREL BISULFATE 75 MG TAB PO SCH (07:55)
[2020-12-17] MEDS: NEPHROCAPS PO SCH (07:55)
[2020-12-17] MEDS: levETIRAcetam 500 MG TAB PO SCH (07:56)
[2020-12-17] MEDS: ATORVASTATIN 40 MG TAB PO SCH (07:56)
[2020-12-17] MEDS: ISOSORBIDE MONO EXTENDED REL 30 MG TABCR PO SCH (07:57)
[2020-12-17] MEDS: TRIAMCINOLONE ACET 0.1% CR 15 GM TUBE TOP SCH (07:59)
[2020-12-17] MEDS: DOCUSATE SODIUM 100 MG CAP PO SCH (08:00)
[2020-12-17] MEDS: guaiFENesin 600 MG TABCR PO SCH (08:01)
--- NOTE | 2020-12-17 08:44 | Electrocardiogram Report ---
Test Reason : Blood Pressure : / mmHG Vent. Rate : 110 BPM Atrial Rate : 110 BPM P-R Int : 164 ms QRS Dur : 104 ms QT Int : 366 ms P-R-T Axes : 040 -78 058 degrees QTc Int : 495 ms Sinus tachycardia Left atrial enlargement Left axis deviation Old Inferior-posterior infarct (cited on or before 18-NOV-2020) Abnormal ECG When compared with ECG of 13-DEC-2020 08:31, Fusion complexes are no longer Present Sinus rhythm is no longer with 2nd degree A-V block (Mobitz I) Vent. rate has increased BY 49 BPM Confirmed by Nguynễ Pressley ([id number]) on 12/17/2020 8:44:24 AM Referred By: REFERRED SELF Confirmed By:Nguyễn Pressley
--- NOTE | 2020-12-17 08:57 | Nephrology Progress Note ---
Date of Service December 17, 2020 Assessment & Plan (1) ESRD on hemodialysis: * Volume status and electrolyte balance are acceptable. No acute indication for HD today * Reviewed Palliative Care consultants recommendations this am. Continue supportive care, however prognosis appears poor * Resume outpatient treatments at [facility] post discharge (2) Hypertension: * Blood pressure appropriately controlled * No change to current medical therapy (3) Anemia: * Hgb is acceptable. No acute indication for JENSEN therapy (4) Goals of care, counseling/discussion: * Continue supportive medical care (including HD) as per patient & family wishes * Comfort feeds despite aspiration risk * DNR/DNI Admission and Anticipated Discharge Date Admission Date: December 13, 2020 Subjective Mr. Mata was seen and examined in his hospital room this morning. He awakens to sternal rub but is nonverbal and does not follow commands. insurance assistant informs me that she was able to very slowly feed Mr. Mata a soft diet this morning. He had no coughing or choking. Review of Systems Review of Systems: Unobtainable due to cognitive status Physical Exam Constitutional: + thin and + frail appearing Eyes: PERRL, conjunctivae normal, anicteric sclerae ENMT: external ear and nose normal, oropharynx normal Neck: trachea midline, no thyromegaly Respiratory: normal respiratory effort, lungs clear to auscultation Cardiovascular: RRR, no murmur, no edema Gastrointestinal (Abdomen): normal bowel sounds, soft, nontender, no hepatosplenomegaly Musculoskeletal: Extremities: no cyanosis Skin: no rashes, warm and dry Neurologic: awake; not confused Results & Data ([facility]) Vital Signs (Past 12 Hours) Vital Signs Temp Pulse Resp BP Pulse Ox 12/17/20 08:00 37.0 C 80 14 140/76 92 12/16/20 23:23 37.2 C 12/16/20 22:19 37.8 C H 97 H 18 116/70 93 Laboratory Tests 12/17/20 12/17/20 05:47 05:47 WBC 15.89 H Hgb 11.3 L Hct 35.3 L Plt Count 475 H Sodium 139 Potassium 3.4 L D Chloride 105 Carbon Dioxide 25 BUN 53 H Creatinine 2.50 H D Glucose 148 H PG Care Time/CCT Total # of Minutes Spent Total Time Spent with Patient: Total time spent is greater than 50% in coordination of care (as documented) at patient's floor/unit and/or counseling patient: Coding Level of Care Code 80295 Subseq Hosp Care Lvl 3 Diagnoses ESRD on hemodialysis N18.6; Z99.2 Hypertension I10 Hypertension type: essential hypertension Anemia D64.9 Goals of care, counseling/discussion Z71.89 (1) Hypertension Hypertension type: essential hypertension Qualified Code(s): I10 - Essential (primary) hypertension
[2020-12-17] MEDS: FAMOTIDINE 40 MG TABLET PO SCH (11:07)
--- NOTE | 2020-12-17 18:40 | Discharge Summary ---
Date of Service December 17, 2020 Admission HPI Per Admitting Provider Miguel Mata is a 75yo male with multiple medical problems to include ESRD on HD q M/W/F, CAD s/p CABG, multiple CVAs, Seizure and CHF. Patient presenting from home with acute hypoxic respiratory failure. History obtained through discussion with as well as chart review and discussion with ER attending. Patient offers very little history. states that patient began looking short of breath yesterday. She placed her portable oxygen concentrator on him at home. Patient had HD yesterday without difficulty. Afterwards he went home. Patient's was feeding him pureed fish and egg around 19:00 when he started coughing. He had progressive shortness of breath and respiratory distress so patient's called EMS. Upon arrival, patient was found to be in acute respiratory distress, SpO2 on room air 75%. He was placed on 6L NC with improvement in SpO2 to 85%. Oxymask placed in ER with improvement. No additional complaints at this time. Principal Diagnosis Aspiration pneumonia Discharge Exam Constitutional WD/WN, vitals as above Eyes EOM intact bilaterally; no conjunctival abnormality ENMT external ear and nose normal, oropharynx normal Neck trachea midline, no thyromegaly normal visual inspection Respiratory normal respiratory effort, lungs clear to auscultation no respiratory distress Cardiovascular RRR, no murmur, no edema Gastrointestinal (Abdomen) Inspection/Auscultation: abdomen normal to inspection; abdomen not distended Musculoskeletal no cyanosis or clubbing, extremities motor strength 5/5 Skin no rashes, warm and dry Neurologic moves all extremities and awake Speech / Cognition: + abnormal speech (High voice with difficult enunciation.) Psychiatric Orientation: alert, oriented to person and cooperative Discharge Data Allergies Allergy/AdvReac Type Severity Reaction Status Date / Time adhesive Allergy Unknown BLISTERING Verified 12/13/20 01:58 OF SKIN latex Allergy Unknown Rash Verified 12/13/20 01:58 Consultations 12/13/20 02:50 ED Decision to Admit Stat 12/13/20 05:49 Consult Nephrology Routine 12/13/20 09:57 Consult Cardiology Routine 12/14/20 08:57 Consult Palliative Care Routine Ordered Studies 12/14/20 13:00 FL video swallow Routine Hospital Course (1) Aspiration pneumonia: Due to poor swallow from prior CVA. He has GELACIO aspiration with thin liquids. Note: Seen by palliative and WOULD NOT want PEG tube and does not want to stop eating. [employer] recs: * Puree diet with NECTAR thick liquids * Patient will need to be fed ALL meals * Mouth care * Aspiration precautions such as: Alternate solids and liquids, crush medications, supervise meals, fully alert and upright for meals, meds in a carrier (applesauce or pudding), small bites, small sips. NO STRAWS. - Continue Augmentin x 10 days (End date: 12/23/2020) (2) CAD (coronary artery disease): CAD (coronary artery disease): s/p CABG 2007. - Continue atorvastatin, Plavix, and Imdur (3) Stroke: With significant deficits. Patient essentially non-verbal and requires assistance for all ADLs. - Continue atorvastatin 80mg po daily - Continue Plavix (4) ESRD on hemodialysis: Chronic. HD q M/W/. Last full treatment was 12/16/2020. - Continue Calcitriol - Continue Renal caps (5) Seizure disorder: Chronic. No seizures in the hospital. - Continue Keppra (6) Hypertension: Blood pressure high today at 165/90. - Continue amlodipine 2.5mg po daily - Continue isosorbide 30mg po daily - Continue to monitor (7) Depression: Chronic. No overt depressive symptoms today. - Continue citalopram (8) GERD (gastroesophageal reflux disease): Chronic. Stable. - Continue Pepcid 40mg po BID (9) Pressure ulcer of sacral region, stage 3: Wound Care q daily. Patient with poor albumin - suspect poor nutritional state making wound healing difficult. - Encourage PO intake as tolerated with aspiration precautions - Continue Santyl ointment (10) DVT prophylaxis: SCDs Total Time Total Time Spent Total Time Spent (In Minutes): 35 Discharge Plan Discharge Items Patient Disposition: Home - Home Health Services Reason For Visit: ACUTE HYPOXIC RESPIRATORY FAILURE Discharge Diagnosis: Aspiration Activity: Resume your previous activity Non-emergency contact: Primary Care Provider Call non-emergency contact if: your symptoms worsen and your temperature is above 101 Follow-up/Referrals: Erick Zapata III, MD [Primary Care Provider] - Diet: Regular Diet Texture: Pureed (blended smooth) Liquid Consistency: [place] thick Addtl Attending Provider Instructions: Mr. Mata was here for pneumonia, likely caused by aspiration. Due to his medical history (namely the stroke), he will likely continue to aspirate. Speech recommended a pureed diet with NECTAR thick liquids. He will leave on 7 more days of antibiotics to help treat the pneumonia from his aspiration. Pending Studies at Discharge: No Stand-Alone Forms: My [facility], Smoking Cessation Medications and DC Order Prescriptions: New amoxicillin-pot clavulanate [Augmentin] 250-62.5 mg/5 mL suspension for reconstitution 10 ml PO BID Qty: 150 RF: 0 Continued [employer]ad Wound Dressing Paste 1 applic topical DAILY Qty: 1 RF: 3 citalopram 10 mg tablet 10 mg PO HS Qty: 30 RF: 5 clopidogrel [Plavix] 75 mg tablet 75 mg PO DAILY Qty: 30 RF: 5 Santyl 250 unit/gram ointment 1 applic TOPICAL UD Qty: 30 RF: 3 famotidine 40 mg tablet 40 mg PO BID Qty: 180 RF: 3 atorvastatin [Lipitor] 80 mg tablet 80 mg PO DAILY Qty: 30 RF: 11 triamcinolone acetonide 0.1 % cream 1 applic topical BID 7 Days Qty: 30 RF: 1 docusate sodium [Stool Softener] 100 mg capsule 100 mg PO DAILY RF: 0 Renal Caps 1 mg Capsule 1 cap PO QAM Qty: 30 RF: 0 levetiracetam [Keppra] 500 mg tablet 500 mg PO SUTUTHSA RF: 0 isosorbide mononitrate 30 mg tablet extended release 24 hr 30 mg PO DAILY Qty: 30 RF: 0 amlodipine 2.5 mg tablet 2.5 mg PO HS RF: 0 calcitriol [Rocaltrol] 0.25 mcg capsule 0.25 mcg PO MOWEFR RF: 0 Discontinued vancomycin 125 mg capsule 125 mg PO QID Qty: 54 RF: 0 Discharge Orders: Discharge Order (Routine); Ordered 12/17/20 Ordered By: Geovany Paniagua/Other Patient Handouts: Dysphagia Aspiration, Dysphagia Diet- Managing Drinks, Dysphagia Diet- Managing Foods Admission Data Admit Date/Time: 12/13/20 03:33 Attending Provider: Geovany De La Cruz Admit Provider: Archana Melendrez Primary Care Provider: Erick Zapata III Other Providers: [facility] ; Oneyda Melendrez ; Nas Villagran ; Jarrod Malik ; Tabitha Muniz ; Joss Maxwell ; Kemar Gloria ; Deborah Duran ; Geovany De La Cruz Other Interventions: Discharge Summary Assessment (RN) Last Done: 12/17/20 13:55 Coding Level of Care Code D/C Day Management >30 mins Diagnoses Aspiration pneumonia J69.0 CAD (coronary artery disease) I25.10 Coronary Disease-Associated Artery/Lesion type: enterprise artery [place] vs. transplanted heart: enterprise heart Associated angina: without angina Stroke I63.9 Laterality of affected vessel: unspecified ESRD on hemodialysis N18.6; Z99.2 Seizure disorder G40.909 Hypertension I10 Hypertension type: essential hypertension Depression F32.9 Depression Type: unspecified GERD (gastroesophageal reflux disease) K21.9 Esophagitis presence: esophagitis presence not specified Pressure ulcer of sacral region, stage 3 L89.153 DVT prophylaxis Z29.9
== END 2020-12-17 14:21 | disposition home health service (06) | DRG 177 ==
LOC: ED 00:48 → SUATTDRO 03:33 → 2S 03:33 → 3N 12-15 13:31

== ENCOUNTER 2020-12-26 02:49 | Inpatient (IN) ==
[2020-12-26] MEDS ORDERED: SODIUM CHLORIDE 0.9% 1000ML 1,000 ML IV ONE (02:57)
--- NOTE | 2020-12-26 03:02 | Emergency Department Note ---
Impression & Plan Sepsis, Acute UTI (urinary tract infection), Leukocytosis ED Provider Note Name: VIVIANA LANIER Age: 75 Sex: M Arrives Via: Ambulance Informant: EMS ED Provider: Ra Nascimento MD Chief Complaint: AMS Impression: Sepsis Acute UTI Leukocytosis Medical Decision Makin yr old male with complex PMH and poor historian due to dementia/cva. He arrives febrile though appears happy. Exam he is tachy, febrile and mildly hypoxic. CXR without clear evidence of new infiltrate other than questionable infiltrate mid left lung prieto. Does have some crackles bilaterally though no overt shortness of breath. UA concerning for infection though. Did just finish round of Augmentin for aspiration pneumonia and is well known to aspirate requiring hospitalization. Labs took some time secondary to difficulty getting IV access though getting fluids/abx once obtained. WBC is quite elevated in 30s and lactate is elevated as well. Consistent with sepsis and IV hydration continued, along with adding in vancomycin for broader coverage. Patient throughout not significantly distressed and is breathing comfortably. Abdominal exam is benign and he has no nuchal rigidity. He did received the 30 ml/kg IV fluids for sepsis management along with his abx. Prior Medical Record and Triage/Nursing Notes reviewed by Me Additional history obtained from Differentials:Viral syndrome, otitis, pharyngitis, pneumonia, influenza, meningitis, urinary tract infection, sepsis, bacteremia, as well as other pathologies. Vital Signs: reviewed and remarkable for fever, tachy, hypoxia Interventions: saline lock, nss bolus 30ml/kg IV, cefepime iv, vanco iv Labs:Reviewed and remarkable for wbc elevated, lactate elevated Imaging:X ray results are stated below per my interpretation: Chest: 1 view: chronic appearing congestion with mild increase infiltrate in left middle lung prieto EKG:Per My Interpretation: Indication sepsis: Sinus Tach 113 bpm, qtc 471. No Ectopy. there are ant/lat ST depressions which appear new compared to EKG 12/16/20 Cardiac/Tele Monitoring: Cardiac Monitoring: An Order was placed for continuous cardiac monitoring. The monitor shows a rate of 105 with a sinus tachy rhythm. Consults:Dr Frances RILEY Hospitalist Plan: Disposition:Hospitalization. Referred to: PCP Condition: Fair History of Present Illness:75 yr old male with extensive PMH and multiple recent hospitalizations for aspiration pneumonia arrives for evaluation of fever. Patient with worsening fever over the last 12 hours. Per EMS it was reported Tm 107 at home. Associated with increasing shortness of breath. Reportedly some diarrhea at home as well. No syncope, vomiting, rashes, nor other symptoms reported. Patient is essentially non-verbal and thus ROS not a ble to be obtained. No medications prior to arrival though was placed on NC O2 with improvement of breathing. Nothing makes better nor worse. EMS notes BSG 160 en route. ROS: See above HPI for pertinent positives & negatives. A total of 10 systems reviewed and were otherwise negative. Past Medical History:See Below Past Surgical History:See Below Family History:See Below Social History:See Below Home Medications:See Below Allergies:adhesive, latex Vitals:Blood Pressure: 155/91, Pulse 110, RR 22, T 38.5C, O2 85% on RA Physical Exam: GENERAL: Patient is chronically unwell appearing and in minimal distress. Smiling periodically. Warm to touch EYES: No scleral icterus, unremarkable pupils. ENT: Mucous membranes moist, no nasal congestion. NECK: No masses appreciated, nomeningismus, trachea is midline. RESPIRATORY: Crackles all lung prieto CARDIOVASCULAR: Tachy.No murmurs, rubs, gallops appreciated. GASTROINTESTINAL: Abdomen soft, non-tender, no peritonitis.Bowel sounds positive.No masses appreciated. BACK: No midline tenderness, no CVA tenderness EXTREMITIES:no cyanosis, no edema. pulses intact NEUROLOGIC: no movement right arm nor legs, left arm works. periodically says yes/no. SKIN: No rash, no jaundice, no diaphoresis. PSYCH: Unable to obtain, appears happy GCS: 15 ED Course: Times/Reassessments: many rechecks, continues to be happy though clearly ill Critical Care: I have personally spent 35 minutes of critical care time in the direct management of this patient. Acute sepsis with WBC > 30 requiring resus and close management. This was a life/limb threatening event. This 45 minutes is in excess of all separately billable procedures. Ra Nascimento MD Past Med/Surg History Medical History (Updated 12/26/20 @ 05:56 by Trip Daniels MD) Acidosis, lactic Benign prostatic hyperplasia CAD (coronary artery disease) s/p CABG 2007 Carotid artery stenosis s/p remote R & L endarterectomies with L re-occlusion sometime before 2010. Being monitored by [facility] neuro, on Plavix. Chronic kidney disease Congestive heart failure (CHF) Dementia Depression Diabetes mellitus, type 2 A1C 5.4% 11/2019. Not on any medication. 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 Hyperlipidemia Hypertension Memory problem PT REPORTS "DEMENTIA" "COMES AND GOES" Myocardial Infarction 1989? Pleural effusion due to CHF (congestive heart failure) Renal artery stenosis s/p left renal artery stenting; moderate right renal artery stenosis but no significant left renal artery stenosis on 11/2019 duplex Seizure disorder Stable on Keppra, no seizure for "a long time." Follows with [facility] neurology. SNHL (sensorineural hearing loss) Surgical History History of aorto-femoral bypass History of bypass graft (non vein) Aortic-femoral or bifemoral History of carotid endarterectomy L 1998, R 2009 History of cataract surgery RT/LEFT History of colonoscopy History of esophagogastroduodenoscopy (EGD) History of tooth extraction History of vascular access device IJ FOR DIAYLSIS S/P CABG (coronary artery bypass graft) (2007) [facility] Family History Brother Hypertension Hypercholesteremia Sister Diabetes Unknown Hypertension Cardiac disorder Social History Smoking Status: Unknown if ever smoked Tobacco Type: Cigarettes Cigarettes Per Day: 30; Second Hand Exposure: No; Hx Alcohol Use: No Hx Substance Use: No Preferred Language: Czech Communication Ability: Unable Visual Impairment: No Limitations [employer] Supervisor Required: No Beliefs That Will Affect Care: None marital status: Current Living Situation: Spouse Current Living Situation Comment: at [facility] current occupational status: 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" Feels Safe at Home: Yes caffeine: No Seatbelt Use: always Assistive Devices: None Allergies Allergies Allergy/AdvReac Type Severity Reaction Status Date / Time adhesive Allergy Unknown BLISTERING Verified 12/26/20 02:58 OF SKIN latex Allergy Unknown Rash Verified 12/26/20 02:58 Home Meds Home Medications Medication Instructions Recorded Confirmed docusate sodium [Stool Softener] 100 mg PO DAILY 04/13/20 12/26/20 amlodipine 2.5 mg PO HS 11/28/20 12/26/20 calcitriol [Rocaltrol] 0.25 mcg PO MOWEFR 11/28/20 12/26/20 triamcinolone acetonide 1 applic TOPICAL BID PRN 12/26/20 12/26/20 wound dressings [Triad Wound 1 applic TOPICAL DAILY 12/26/20 12/26/20 Dressing] Previous Rx's Medication Instructions Recorded Renal Caps 1 cap PO QAM #30 cap 11/20/19 isosorbide mononitrate 30 mg PO DAILY #30 tab 10/04/20 citalopram 10 mg tablet 10 mg PO HS #30 tab 12/15/20 clopidogrel 75 mg tablet 75 mg PO DAILY #30 tab 12/15/20 collagenase clostridium histo. 250 1 applic TOPICAL UD #30 g 12/15/20 unit/gram topical ointment famotidine 40 mg tablet 40 mg PO BID #180 tab 12/15/20 atorvastatin 80 mg tablet 80 mg PO DAILY #30 tab 12/16/20 levetiracetam 500 mg tablet 500 mg PO SUTUTHSA 30 Days #18 tab 12/19/20 Results & Data (ED) Vital Signs Vital Signs - 24 hr 12/26/20 02:53 12/26/20 03:05 12/26/20 03:07 Temperature Temperature Source Pulse Rate 110 H 112 H Pulse Rate [Forehead] Pulse Rate from SpO2 Sensor Pulse Rhythm Regular Respiratory Rate 22 18 Respiratory Effort / Characteristics Non-Labored Respiratory Depth Normal Blood Pressure 155/91 H 155/91 H Blood Pressure [Left Thigh] Blood Pressure Mean 112 112 Blood Pressure Mean [Left Thigh] Blood Pressure Position [Left Thigh] Pulse Oximetry 86 L 98 96 Oxygen Delivery Method Room Air Nasal Cannula Nasal Cannula Oxygen Flow Rate 2 2 Sepsis Recent Fever Within 48 Hours Yes Sepsis New/Unexplained Change in Mental Status Yes Sepsis Action Taken by Nursing Physician Notified 12/26/20 03:15 12/26/20 03:20 12/26/20 04:14 Temperature 38.9 C H Temperature Source Rectal Pulse Rate Pulse Rate [Forehead] 103 H Pulse Rate from SpO2 Sensor Pulse Rhythm Respiratory Rate 22 Respiratory Effort / Characteristics Spontaneous Respiratory Depth Blood Pressure Blood Pressure [Left Thigh] 140/92 Blood Pressure Mean Blood Pressure Mean [Left Thigh] 108 Blood Pressure Position [Left Thigh] Lying Pulse Oximetry 92 100 Oxygen Delivery Method Nasal Cannula Room Air Nasal Cannula Oxygen Flow Rate 2 2 Sepsis Recent Fever Within 48 Hours Sepsis New/Unexplained Change in Mental Status Sepsis Action Taken by Nursing 12/26/20 04:30 12/26/20 05:00 12/26/20 05:30 Temperature Temperature Source Pulse Rate 98 H 93 H 97 H Pulse Rate [Forehead] Pulse Rate from SpO2 Sensor 98 H 91 H 38 L Pulse Rhythm Respiratory Rate 22 22 23 Respiratory Effort / Characteristics Respiratory Depth Blood Pressure 128/91 123/84 135/85 Blood Pressure [Left Thigh] Blood Pressure Mean 103 97 101 Blood Pressure Mean [Left Thigh] Blood Pressure Position [Left Thigh] Pulse Oximetry 98 95 96 Oxygen Delivery Method Nasal Cannula Nasal Cannula Nasal Cannula Oxygen Flow Rate 2 2 2 Sepsis Recent Fever Within 48 Hours Sepsis New/Unexplained Change in Mental Status Sepsis Action Taken by Nursing 12/26/20 05:59 Temperature 37.6 C H Temperature Source Oral Pulse Rate Pulse Rate [Forehead] Pulse Rate from SpO2 Sensor Pulse Rhythm Respiratory Rate Respiratory Effort / Characteristics Respiratory Depth Blood Pressure Blood Pressure [Left Thigh] Blood Pressure Mean Blood Pressure Mean [Left Thigh] Blood Pressure Position [Left Thigh] Pulse Oximetry Oxygen Delivery Method Oxygen Flow Rate Sepsis Recent Fever Within 48 Hours Sepsis New/Unexplained Change in Mental Status Sepsis Action Taken by Nursing Laboratory Data Result diagrams: 12/26/20 04:04 12/26/20 03:50 Lab Results 12/26/20 12/26/20 12/26/20 Range/Units 02:30 03:50 03:50 WBC (4.8-10.8) K/uL RBC (4.7-6.1) M/uL Hgb (14.0-18.0) g/dL Hct (42-52) % MCV (80-100) fL MCH (25-34) pg MCHC (32-36) g/dL RDW Std Deviation (36.4-46.3) fL RDW Coeff of Shayy (11.5-14.5) % Plt Count (130-400) K/uL MPV (7.4-10.4) fL Immature Gran % (Auto) % Neut % (Auto) % Lymph % (Auto) % [place] % (Auto) % Eos % (Auto) % Baso % (Auto) % Neut # (Auto) (1.4-6.5) K/uL Lymph # (Auto) (1.2-3.4) K/uL [place] # (Auto) (0.11-0.59) K/uL Eos # (Auto) (0-0.5) K/uL Baso # (Auto) (0-0.2) K/uL Immature Gran # (Auto) (0.00-0.02) K/uL Absolute Nucleated RBC (0-0) K/uL Nucleated RBC % (auto) % Echinocytes PT 11.9 (9.0-12.0) Seconds INR 1.2 H (0.9-1.1) Sodium 134 L (136-145) mmol/L Potassium 4.8 (3.5-5.1) mmol/L Chloride 96 L (98-107) mmol/L Carbon Dioxide 31 (21-32) mmol/L Anion Gap 7.0 (3-11) BUN 58 H (7-18) mg/dl Creatinine 3.69 H (0.6-1.4) mg/dl Est Cr Clr Drug Dosing 11.3 ml/min Est GFR ( Amer) 17.5 Est GFR (Non-Af Amer) 15.1 BUN/Creatinine Ratio 15.6 (10-20) Glucose 174 H (70-99) mg/dl Lactate (0.4-2.0) mmol/L Calcium 8.4 L (8.5-10.1) mg/dl Magnesium 2.3 (1.8-2.4) mg/dl Total Bilirubin 0.5 (0.2-1) mg/dl Direct Bilirubin 0.2 (0-0.2) mg/dl AST 48 H (15-37) U/L ALT 66 (12-78) U/L Alkaline Phosphatase 101 (45-117) U/L Troponin I 1.630 H* (0-0.045) ng/ml Total Protein 7.6 (6.4-8.2) gm/dl Albumin 1.6 L (3.4-5.0) gm/dl Lipase 192 (73-393) U/L Procalcitonin (0-0.5) ng/ml Urine Color Yellow Urine Appearance Turbid A (Clear) Urine pH 8.0 H (4.5-7.5) Ur Specific [place] 1.016 (1.000-1.030) Urine Protein 3+ H (Negative) Urine Glucose (UA) Trace H (Negative) Urine Ketones Negative (Negative) Urine Blood 3+ H (Negative) Urine Nitrite Negative (Negative) Urine Bilirubin Negative (Negative) Urine Urobilinogen Negative (Negative) Ur Leukocyte Esterase 3+ H (Negative) Urine WBC (Auto) >30 H (0-5) /hpf Urine RBC (Auto) 10-30 H (0-4) /hpf U Hyaline Cast (Auto) 1-5 (0-5) /lpf U Epithel Cells (Auto) 0-5 (0-5) /lpf Urine Bacteria (Auto) Negative (Negative) Urine Yeast Not Reportable COVID-19 Eval Order SARS-CoV-2 (PCR) (Negative) Influenza Type A (PCR) (Neg) Influenza Type B (PCR) (Neg) RSV (RT-PCR) (Neg) 12/26/20 12/26/20 12/26/20 Range/Units 03:50 03:55 03:55 WBC (4.8-10.8) K/uL RBC (4.7-6.1) M/uL Hgb (14.0-18.0) g/dL Hct (42-52) % MCV (80-100) fL MCH (25-34) pg MCHC (32-36) g/dL RDW Std Deviation (36.4-46.3) fL RDW Coeff of Shayy (11.5-14.5) % Plt Count (130-400) K/uL MPV (7.4-10.4) fL Immature Gran % (Auto) % Neut % (Auto) % Lymph % (Auto) % [place] % (Auto) % Eos % (Auto) % Baso % (Auto) % Neut # (Auto) (1.4-6.5) K/uL Lymph # (Auto) (1.2-3.4) K/uL [place] # (Auto) (0.11-0.59) K/uL Eos # (Auto) (0-0.5) K/uL Baso # (Auto) (0-0.2) K/uL Immature Gran # (Auto) (0.00-0.02) K/uL Absolute Nucleated RBC (0-0) K/uL Nucleated RBC % (auto) % Echinocytes PT (9.0-12.0) Seconds INR (0.9-1.1) Sodium (136-145) mmol/L Potassium (3.5-5.1) mmol/L Chloride (98-107) mmol/L Carbon Dioxide (21-32) mmol/L Anion Gap (3-11) BUN (7-18) mg/dl Creatinine (0.6-1.4) mg/dl Est Cr Clr Drug Dosing ml/min Est GFR ( Amer) Est GFR (Non-Af Amer) BUN/Creatinine Ratio (10-20) Glucose (70-99) mg/dl Lactate (0.4-2.0) mmol/L Calcium (8.5-10.1) mg/dl Magnesium (1.8-2.4) mg/dl Total Bilirubin (0.2-1) mg/dl Direct Bilirubin (0-0.2) mg/dl AST (15-37) U/L ALT (12-78) U/L Alkaline Phosphatase (45-117) U/L Troponin I (0-0.045) ng/ml Total Protein (6.4-8.2) gm/dl Albumin (3.4-5.0) gm/dl Lipase (73-393) U/L Procalcitonin 17.71 H (0-0.5) ng/ml Urine Color Urine Appearance (Clear) Urine pH (4.5-7.5) Ur Specific [place] (1.000-1.030) Urine Protein (Negative) Urine Glucose (UA) (Negative) Urine Ketones (Negative) Urine Blood (Negative) Urine Nitrite (Negative) Urine Bilirubin (Negative) Urine Urobilinogen (Negative) Ur Leukocyte Esterase (Negative) Urine WBC (Auto) (0-5) /hpf Urine RBC (Auto) (0-4) /hpf U Hyaline Cast (Auto) (0-5) /lpf U Epithel Cells (Auto) (0-5) /lpf Urine Bacteria (Auto) (Negative) Urine Yeast COVID-19 Eval Order CovFluRsv at [facility] SARS-CoV-2 (PCR) NEGATIVE (Negative) Influenza Type A (PCR) Negative (Neg) Influenza Type B (PCR) Negative (Neg) RSV (RT-PCR) Negative (Neg) 12/26/20 12/26/20 12/26/20 Range/Units 04:04 04:04 05:51 WBC 34.20 H* (4.8-10.8) K/uL RBC 3.10 L (4.7-6.1) M/uL Hgb 9.1 L (14.0-18.0) g/dL Hct 28.6 L (42-52) % MCV 92.3 (80-100) fL MCH 29.4 (25-34) pg MCHC 31.8 L (32-36) g/dL RDW Std Deviation 58.8 H (36.4-46.3) fL RDW Coeff of Shayy 17.8 H (11.5-14.5) % Plt Count 443 H (130-400) K/uL MPV 9.7 (7.4-10.4) fL Immature Gran % (Auto) 0.5 % Neut % (Auto) 91.5 % Lymph % (Auto) 2.3 % [place] % (Auto) 5.6 % Eos % (Auto) 0.0 % Baso % (Auto) 0.1 % Neut # (Auto) 31.33 H (1.4-6.5) K/uL Lymph # (Auto) 0.78 L (1.2-3.4) K/uL [place] # (Auto) 1.90 H (0.11-0.59) K/uL Eos # (Auto) 0.01 (0-0.5) K/uL Baso # (Auto) 0.02 (0-0.2) K/uL Immature Gran # (Auto) 0.16 H (0.00-0.02) K/uL Absolute Nucleated RBC 0.03 H (0-0) K/uL Nucleated RBC % (auto) 0.1 % Echinocytes 1+ PT (9.0-12.0) Seconds INR (0.9-1.1) Sodium (136-145) mmol/L Potassium (3.5-5.1) mmol/L Chloride (98-107) mmol/L Carbon Dioxide (21-32) mmol/L Anion Gap (3-11) BUN (7-18) mg/dl Creatinine (0.6-1.4) mg/dl Est Cr Clr Drug Dosing ml/min Est GFR ( Amer) Est GFR (Non-Af Amer) BUN/Creatinine Ratio (10-20) Glucose (70-99) mg/dl Lactate 2.6 H* 2.1 H* (0.4-2.0) mmol/L Calcium (8.5-10.1) mg/dl Magnesium (1.8-2.4) mg/dl Total Bilirubin (0.2-1) mg/dl Direct Bilirubin (0-0.2) mg/dl AST (15-37) U/L ALT (12-78) U/L Alkaline Phosphatase (45-117) U/L Troponin I (0-0.045) ng/ml Total Protein (6.4-8.2) gm/dl Albumin (3.4-5.0) gm/dl Lipase (73-393) U/L Procalcitonin (0-0.5) ng/ml Urine Color Urine Appearance (Clear) Urine pH (4.5-7.5) Ur Specific [place] (1.000-1.030) Urine Protein (Negative) Urine Glucose (UA) (Negative) Urine Ketones (Negative) Urine Blood (Negative) Urine Nitrite (Negative) Urine Bilirubin (Negative) Urine Urobilinogen (Negative) Ur Leukocyte Esterase (Negative) Urine WBC (Auto) (0-5) /hpf Urine RBC (Auto) (0-4) /hpf U Hyaline Cast (Auto) (0-5) /lpf U Epithel Cells (Auto) (0-5) /lpf Urine Bacteria (Auto) (Negative) Urine Yeast COVID-19 Eval Order SARS-CoV-2 (PCR) (Negative) Influenza Type A (PCR) (Neg) Influenza Type B (PCR) (Neg) RSV (RT-PCR) (Neg) Administered Medications Vancomycin HCl 1,000 mg/ (Sodium Chloride) 520 mls @ 200 mls/hr IV NOW ONE Stop: 12/26/20 07:24 Last Admin: 12/26/20 05:12 Dose: 200 mls/hr Documented by: [id number] Discontinued Medications Sodium Chloride (Nss 1000ml) 1,000 mls @ 999 mls/hr IV .Q1H1M ONE Stop: 12/26/20 03:57 Last Infusion: 12/26/20 04:50 Dose: 0 mls/hr Documented by: [id number] Admin: 12/26/20 03:46 Dose: 999 mls/hr Documented by: [id number] Acetaminophen (Ofirmev) 1,000 mg in 100 mls @ 400 mls/hr IV NOW STA Stop: 12/26/20 03:26 Last Infusion: 12/26/20 04:08 Dose: 0 mls/hr Documented by: [id number] Admin: 12/26/20 03:47 Dose: 400 mls/hr Documented by: [id number] Cefepime HCl (Maxipime) 2,000 mg in 20 mls @ 5 mls/min IV NOW STA Stop: 12/26/20 03:58 Last Admin: 12/26/20 04:00 Dose: 5 mls/min Documented by: [id number] Sodium Chloride (Nss 1000ml) 1,000 mls @ 999 mls/hr IV .Q1H1M ONE Stop: 12/26/20 05:45 Last Admin: 12/26/20 05:17 Dose: Not Given Documented by: [id number] Discharge Plan Visit Data Chief Complaint: Altered Mental Status Stated Complaint: ALTERED MENTAL STATUS/FEVER/LETHARGIC ED Provider: Ra Nascimento Discharge Problem: Sepsis, Acute UTI (urinary tract infection), Leukocytosis Patient Disposition: Admitted As Inpatient Discharge Instructions Interventions: ED Discharge Assessment Last Done: 12/26/20 06:13 Forms Stand Alone Forms: [facility] Prescriptions Prescriptions: No Action citalopram 10 mg tablet 10 mg PO HS Qty: 30 RF: 5 clopidogrel [Plavix] 75 mg tablet 75 mg PO DAILY Qty: 30 RF: 5 Santyl 250 unit/gram ointment 1 applic TOPICAL UD Qty: 30 RF: 3 famotidine 40 mg tablet 40 mg PO BID Qty: 180 RF: 3 atorvastatin [Lipitor] 80 mg tablet 80 mg PO DAILY Qty: 30 RF: 11 levetiracetam [Keppra] 500 mg tablet 500 mg PO SUTUTHSA 30 Days Qty: 18 RF: 0 docusate sodium [Stool Softener] 100 mg capsule 100 mg PO DAILY RF: 0 Renal Caps 1 mg Capsule 1 cap PO QAM Qty: 30 RF: 0 isosorbide mononitrate 30 mg tablet extended release 24 hr 30 mg PO DAILY Qty: 30 RF: 0 triamcinolone acetonide 0.1 % cream 1 applic topical BID PRN (Reason: Skin Irritation) RF: 0 Triad Wound Dressing Paste 1 applic TOPICAL DAILY RF: 0 amlodipine 2.5 mg tablet 2.5 mg PO HS RF: 0 calcitriol [Rocaltrol] 0.25 mcg capsule 0.25 mcg PO MOWEFR RF: 0 Referrals Referrals: Erick Zapata III, MD [Primary Care Provider] - Discharge Problem: Sepsis Qualifiers: Sepsis type: sepsis due to unspecified organism Sepsis acute organ dysfunction status: unspecified Qualified Code(s): A41.9 - Sepsis, unspecified organism Leukocytosis Qualifiers: Leukocytosis type: unspecified Qualified Code(s): D72.829 - Elevated white blood cell count, unspecified
[2020-12-26] MEDS ORDERED: ACETAMINOPHEN 1,000 MG/100 ML VIAL IV STA (03:12)
[2020-12-26] MEDS ORDERED: CEFEPIME 2,000 MG/20 ML VIAL IV STA (03:55)
[2020-12-26 04:01] LABS: Appearance Urine Turbid (Clear); Bacteria Urine Automated Negative (Negative); Bilirubin Urine Negative (Negative); Blood Urine 3+ (Negative); Color Urine Yellow; Epithelial Cell Urine Auto 0-5 /lpf (0-5); Glucose Urine UA Trace (Negative); Ketones Urine Negative (Negative); Leukocyte Esterase Urine 3+ (Negative); Nitrite Urine Negative (Negative); Specific Gravity Urine 1.016 (1.000-1.030); Urobilinogen Urine Negative (Negative); WBC Urine Automated >30 /hpf (0-5)
[2020-12-26 04:02] LABS: Protein Urine 3+ (Negative)
[2020-12-26 04:28] LABS: INR 1.2 (0.9-1.1); Prothrombin Time 11.9 Seconds (9.0-12.0)
[2020-12-26 04:34] LABS: Albumin Level 1.6 gm/dl (3.4-5.0); BUN Creatinine Ratio 15.6 (10-20); Bilirubin Direct 0.2 mg/dl (0-0.2); Calcium 8.4 mg/dl (8.5-10.1); Creatinine Clr Calc Pharmacy 11.3 ml/min; Est GFR (African American) 17.5; Est GFR (Non-African American) 15.1; Magnesium 2.3 mg/dl (1.8-2.4); Potassium 4.8 mmol/L (3.5-5.1)
[2020-12-26 04:43] LABS: Bilirubin,Total 0.5 mg/dl (0.2-1); Total Protein 7.6 gm/dl (6.4-8.2); Troponin I 1.63 ng/ml (0-0.045)
[2020-12-26 04:44] LABS: Influenza A virus by PCR Negative (Neg); Influenza B virus by PCR Negative (Neg); RSV by PCR Negative (Neg); SARS CoV2 RNA(COVID-19) InHosp NEGATIVE (Negative)
[2020-12-26] MEDS ORDERED: VANCOMYCIN HCL 1,000 MG in SODIUM CHLORIDE 0.9% 500 ML IV ONE (04:49)
[2020-12-26] MEDS ORDERED: VANCOMYCIN CONSULT ACTIVE PRN ×2 (04:49→07:18)
[2020-12-26] MEDS: SODIUM CHLORIDE 0.9% 1000ML 1,000 ML IV ONE ×2 (04:51→05:17)
[2020-12-26 04:54] LABS: Basophils # (auto) 0.02 K/uL (0-0.2); Basophils % (auto) 0.1 %; Echinocytes 1+; Eosinophils # (auto) 0.01 K/uL (0-0.5); Hematocrit (blood only) 28.6 % (42-52); Hemoglobin 9.1 g/dL (14.0-18.0); Immature Granulocytes # (auto) 0.16 K/uL (0.00-0.02); Immature Granulocytes % (auto) 0.5 %; Lymphocytes # (auto) 0.78 K/uL (1.2-3.4); Lymphocytes % (auto) 2.3 %; Mean Corpuscular Hemoglobin 29.4 pg (25-34); Mean Corpuscular Hgb Conc 31.8 g/dL (32-36); Mean Corpuscular Volume 92.3 fL (80-100); Mean Platelet Volume 9.7 fL (7.4-10.4); Monocytes % (auto) 5.6 %; Neutrophils # (auto) 31.33 K/uL (1.4-6.5); Neutrophils % (auto) 91.5 %; Nucleated RBC # (auto) 0.03 K/uL (0-0); Nucleated RBC % (auto) 0.1 %; Platelet Count 443 K/uL (130-400); RDW Coefficient of Variation 17.8 % (11.5-14.5); RDW Standard Deviation 58.8 fL (36.4-46.3)
--- NOTE | 2020-12-26 05:45 | History & Physical Report ---
Date of Service December 26, 2020 Assessment & Plan (1) Hypoxia: Hypoxia secondary to pneumonia, CHF with layering pleural effusions and bibasilar consolidations, with on and off history of aspiration- Most recent hospitalization from 11/16-12/17/2020 for similar presentation Present on Admission?: Yes (2) Pleural effusion due to CHF (congestive heart failure): Layering pleural effusions associated with CHF- Discontinue 2 L of normal saline written for in ED. Should be getting 500 cc of fluid with vancomycin IV, which which should be enough fluid resuscitation. Will be managed by managing ESRD with dialysis Present on Admission?: Yes (3) End stage renal failure on dialysis: Consult nephrology. Usual dialysis days are on Saturday/Saturday/Saturday Present on Admission?: Yes (4) Aspiration pneumonia: Vancomycin IV and Zosyn IV Present on Admission?: Yes (5) Pulmonary edema: As above Present on Admission?: Yes (6) CAD (coronary artery disease): CAD/hypertension- Continue amlodipine, and clopidogrel Present on Admission?: Yes (7) Type 2 diabetes mellitus: On no active treatment. Glucose upon admission was 174. Placed on Accu-Cheks with NovoLog coverage Present on Admission?: Yes (8) Seizure disorder: Continue Keppra same dosing as outpatient Present on Admission?: Yes (9) Hypertension: See above Present on Admission?: Yes (10) Aphasia: Secondary to previous CVA, stable Present on Admission?: Yes (11) Dysphagia: Monitor for aspiration Present on Admission?: Yes (12) Pressure ulcer of sacral region, stage 3: Consult wound care for dressing changes Present on Admission?: Yes (13) Depression: Continue citalopram Present on Admission?: Yes (14) GERD (gastroesophageal reflux disease): Continue famotidine Present on Admission?: Yes History of Present Illness Chief Complaint: The patient presents to the emergency department via EMS, with not able to contribute to his HPI or review of systems due to dementia secondary to previous CVA. Primary Care Provider: Erick Zapata MD The patient is a 75-year-old male with a past medical history including ESRD on HD, CAD, seizure disorder, hypertension, stroke, dementia, depression, GERD and acute respiratory failure with hypoxia. He presents to the emergency department similarly to last [facility] admission from 12/13-12/17/2020 with hypoxia, pneumonia, CHF with layering pleural effusions. He is unable to contribute significantly to his HPI or ROS due to dementia associated previous CVA. Allergies Allergy/AdvReac Type Severity Reaction Status Date / Time adhesive Allergy Unknown BLISTERING Verified 12/26/20 02:58 OF SKIN latex Allergy Unknown Rash Verified 12/26/20 02:58 Home Medications Medication Instructions Recorded Confirmed Type Renal Caps 1 cap PO QAM #30 cap 11/20/19 12/26/20 Rx docusate sodium [Stool Softener] 100 mg PO DAILY 04/13/20 12/26/20 History isosorbide mononitrate 30 mg PO DAILY #30 tab 10/04/20 12/26/20 Rx amlodipine 2.5 mg PO HS 11/28/20 12/26/20 History calcitriol [Rocaltrol] 0.25 mcg PO MOWEFR 11/28/20 12/26/20 History citalopram 10 mg tablet 10 mg PO HS #30 tab 12/15/20 12/26/20 Rx clopidogrel 75 mg tablet 75 mg PO DAILY #30 tab 12/15/20 12/26/20 Rx collagenase clostridium histo. 250 1 applic TOPICAL UD #30 g 12/15/20 12/26/20 Rx unit/gram topical ointment famotidine 40 mg tablet 40 mg PO BID #180 tab 12/15/20 12/26/20 Rx atorvastatin 80 mg tablet 80 mg PO DAILY #30 tab 12/16/20 12/26/20 Rx levetiracetam 500 mg tablet 500 mg PO SUTUTHSA 30 Days #18 tab 12/19/20 12/26/20 Rx triamcinolone acetonide 1 applic TOPICAL BID PRN 12/26/20 12/26/20 History wound dressings [Triad Wound 1 applic TOPICAL DAILY 12/26/20 12/26/20 History Dressing] Past Med/Surg History Medical History Acidosis, lactic Benign prostatic hyperplasia CAD (coronary artery disease) s/p CABG 2007 Carotid artery stenosis s/p remote R & L endarterectomies with L re-occlusion sometime before 2010. Being monitored by [facility] neuro, on Plavix. Chronic kidney disease Congestive heart failure (CHF) Dementia Depression Diabetes mellitus, type 2 A1C 5.4% 11/2019. Not on any medication. Diabetic peripheral neuropathy Esophageal reflux Flash pulmonary edema 11/2019 Hemodialysis patient SAT/SAT/SATURDAY [facility] 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 (1 YEAR AFTER [facility]) ? Hyperlipidemia Hypertension Memory problem PT REPORTS "DEMENTIA" "COMES AND GOES" Myocardial Infarction 1989? Renal artery stenosis s/p left renal artery stenting; moderate right renal artery stenosis but no significant left renal artery stenosis on 11/2019 duplex Seizure disorder Stable on Keppra, no seizure for "a long time." Follows with [facility] neurology. SNHL (sensorineural hearing loss) Surgical History History of aorto-femoral bypass History of bypass graft (non vein) Aortic-femoral or bifemoral History of carotid endarterectomy L 1998, R 2009 History of cataract surgery RT/LEFT History of colonoscopy History of esophagogastroduodenoscopy (EGD) History of tooth extraction History of vascular access device IJ FOR DIAYLSIS S/P CABG (coronary artery bypass graft) (2007) [facility] Family History Brother Hypertension Hypercholesteremia Sister Diabetes Unknown Hypertension Cardiac disorder Social History Smoking Status: Unknown if ever smoked Tobacco Type: Cigarettes Cigarettes Per Day: 30; Second Hand Exposure: No; Hx Alcohol Use: No Hx Substance Use: No Preferred Language: Nepalese Communication Ability: Unable Visual Impairment: No Limitations Health Therapist Required: No Beliefs That Will Affect Care: None marital status: Current Living Situation: Spouse Current Living Situation Comment: at [facility] current occupational status: 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 HEENT--PERRL, EOMI, mucous membranes and oropharynx normal. Neck--supple. No JVD. No bruits. Thyroid normal, trachea midline, no adenopathy. Heart--normal S1 and S2. No murmurs, rubs or gallops. Lungs--crackles at the bases to long term up bilaterally. No respiratory distress, no accessory muscle use. Abdomen--normal bowel sounds and soft. Nontender. Nondistended. Extremities--no cyanosis or clubbing. No edema. Dermatologic--skin is dry and mild flakiness. Sacral decubitus Neurologic--cranial nerves II through XII grossly intact. Rheumatologic--normal range of motion. Psychiatric--dementia due to previous CVA limited responsiveness Results & Data Results & Data ([facility]) Vital Signs (Past 12 Hours) Vital Signs Temp Pulse Pulse Resp BP BP Pulse Ox 12/26/20 05:30 97 H 23 135/85 96 12/26/20 05:00 93 H 22 123/84 95 12/26/20 04:30 98 H 22 128/91 98 12/26/20 04:14 103 H 22 140/92 100 12/26/20 03:20 102.0 F H 12/26/20 03:15 92 12/26/20 03:07 96 12/26/20 03:05 112 H 18 155/91 H 98 12/26/20 02:53 110 H 22 155/91 H 86 L Laboratory Results Laboratory Results WBC 34.20 K/uL (4.8-10.8) H* 12/26/20 04:04 RBC 3.10 M/uL (4.7-6.1) L 12/26/20 04:04 Hgb 9.1 g/dL (14.0-18.0) L 12/26/20 04:04 Hct 28.6 % (42-52) L 12/26/20 04:04 MCV 92.3 fL (80-100) 12/26/20 04:04 MCH 29.4 pg (25-34) 12/26/20 04:04 MCHC 31.8 g/dL (32-36) L 12/26/20 04:04 RDW Std Deviation 58.8 fL (36.4-46.3) H 12/26/20 04:04 RDW Coeff of Shayy 17.8 % (11.5-14.5) H 12/26/20 04:04 Plt Count 443 K/uL (130-400) H 12/26/20 04:04 MPV 9.7 fL (7.4-10.4) 12/26/20 04:04 Immature Gran % (Auto) 0.5 % 12/26/20 04:04 Neut % (Auto) 91.5 % 12/26/20 04:04 Lymph % (Auto) 2.3 % 12/26/20 04:04 [place] % (Auto) 5.6 % 12/26/20 04:04 Eos % (Auto) 0.0 % 12/26/20 04:04 Baso % (Auto) 0.1 % 12/26/20 04:04 Neut # (Auto) 31.33 K/uL (1.4-6.5) H 12/26/20 04:04 Lymph # (Auto) 0.78 K/uL (1.2-3.4) L 12/26/20 04:04 [place] # (Auto) 1.90 K/uL (0.11-0.59) H 12/26/20 04:04 Eos # (Auto) 0.01 K/uL (0-0.5) 12/26/20 04:04 Baso # (Auto) 0.02 K/uL (0-0.2) 12/26/20 04:04 Immature Gran # (Auto) 0.16 K/uL (0.00-0.02) H 12/26/20 04:04 Absolute Nucleated RBC 0.03 K/uL (0-0) H 12/26/20 04:04 Nucleated RBC % (auto) 0.1 % 12/26/20 04:04 Echinocytes 1+ 12/26/20 04:04 PT 11.9 Seconds (9.0-12.0) 12/26/20 03:50 INR 1.2 (0.9-1.1) H 12/26/20 03:50 Sodium 134 mmol/L (136-145) L 12/26/20 03:50 Potassium 4.8 mmol/L (3.5-5.1) 12/26/20 03:50 Chloride 96 mmol/L (98-107) L 12/26/20 03:50 Carbon Dioxide 31 mmol/L (21-32) 12/26/20 03:50 Anion Gap 7.0 (3-11) 12/26/20 03:50 BUN 58 mg/dl (7-18) H 12/26/20 03:50 Creatinine 3.69 mg/dl (0.6-1.4) H 12/26/20 03:50 Est Cr Clr Drug Dosing 11.3 ml/min 12/26/20 03:50 Est GFR ( Amer) 17.5 12/26/20 03:50 Est GFR (Non-Af Amer) 15.1 12/26/20 03:50 BUN/Creatinine Ratio 15.6 (10-20) 12/26/20 03:50 Glucose 174 mg/dl (70-99) H 12/26/20 03:50 Lactate 2.6 mmol/L (0.4-2.0) H* 12/26/20 04:04 Calcium 8.4 mg/dl (8.5-10.1) L 12/26/20 03:50 Magnesium 2.3 mg/dl (1.8-2.4) 12/26/20 03:50 Total Bilirubin 0.5 mg/dl (0.2-1) 12/26/20 03:50 Direct Bilirubin 0.2 mg/dl (0-0.2) 12/26/20 03:50 AST 48 U/L (15-37) H 12/26/20 03:50 ALT 66 U/L (12-78) 12/26/20 03:50 Alkaline Phosphatase 101 U/L (45-117) 12/26/20 03:50 Troponin I 1.630 ng/ml (0-0.045) H* 12/26/20 03:50 Total Protein 7.6 gm/dl (6.4-8.2) 12/26/20 03:50 Albumin 1.6 gm/dl (3.4-5.0) L 12/26/20 03:50 Lipase 192 U/L (73-393) 12/26/20 03:50 Procalcitonin 17.71 ng/ml (0-0.5) H 12/26/20 03:50 Urine Color Yellow 12/26/20 02:30 Urine Appearance Turbid (Clear) A 12/26/20 02:30 Urine pH 8.0 (4.5-7.5) H 12/26/20 02:30 Ur Specific [place] 1.016 (1.000-1.030) 12/26/20 02:30 Urine Protein 3+ (Negative) H 12/26/20 02:30 Urine Glucose (UA) Trace (Negative) H 12/26/20 02:30 Urine Ketones Negative (Negative) 12/26/20 02:30 Urine Blood 3+ (Negative) H 12/26/20 02:30 Urine Nitrite Negative (Negative) 12/26/20 02:30 Urine Bilirubin Negative (Negative) 12/26/20 02:30 Urine Urobilinogen Negative (Negative) 12/26/20 02:30 Ur Leukocyte Esterase 3+ (Negative) H 12/26/20 02:30 Urine WBC (Auto) >30 /hpf (0-5) H 12/26/20 02:30 Urine RBC (Auto) 10-30 /hpf (0-4) H 12/26/20 02:30 U Hyaline Cast (Auto) 1-5 /lpf (0-5) 12/26/20 02:30 U Epithel Cells (Auto) 0-5 /lpf (0-5) 12/26/20 02:30 Urine Bacteria (Auto) Negative (Negative) 12/26/20 02:30 Urine Yeast Not Reportable 12/26/20 02:30 COVID-19 Eval Order CovFluRsv at [facility] 12/26/20 03:55 SARS-CoV-2 (PCR) NEGATIVE (Negative) 12/26/20 03:55 Influenza Type A (PCR) Negative (Neg) 12/26/20 03:55 Influenza Type B (PCR) Negative (Neg) 12/26/20 03:55 RSV (RT-PCR) Negative (Neg) 12/26/20 03:55 Code Status & VTE Plan Code Status DNR/DNI VTE Prophylaxis Plan VTE Prophylaxis will be ordered: Yes PG Care Time/CCT Total # of Minutes Spent Total Time Spent with Patient: Total time spent is greater than 50% in coordination of care (as documented) at patient's floor/unit and/or counseling patient: Coding Level of Care Code 43505 Initial Inpt Care Lvl 3 Diagnoses Hypoxia R09.02 Pleural effusion due to CHF (congestive heart failure) I50.9 End stage renal failure on dialysis N18.6; Z99.2 Aspiration pneumonia J69.0 Pulmonary edema J81.0 Chronicity: acute CAD (coronary artery disease) I25.10 Coronary Disease-Associated Artery/Lesion type: [place] artery [place] vs. transplanted heart: [place] heart Associated angina: without angina Type 2 diabetes mellitus E11.9 Seizure disorder G40.909 Hypertension I10 Hypertension type: essential hypertension Aphasia R47.01 Dysphagia R13.10 Pressure ulcer of sacral region, stage 3 L89.153 Depression F32.9 Depression Type: unspecified GERD (gastroesophageal reflux disease) K21.9 Esophagitis presence: esophagitis presence not specified (1) Pulmonary edema Chronicity: acute Qualified Code(s): J81.0 - Acute pulmonary edema (2) CAD (coronary artery disease) Coronary Disease-Associated Artery/Lesion type: [place] artery [place] vs. transplanted heart: [place] heart Associated angina: without angina Qualified Code(s): I25.10 - Atherosclerotic heart disease of [place] coronary artery without angina pectoris (3) Hypertension Hypertension type: essential hypertension Qualified Code(s): I10 - Essential (primary) hypertension (4) Depression Depression Type: unspecified Qualified Code(s): F32.9 - Major depressive disorder, single episode, unspecified (5) GERD (gastroesophageal reflux disease) Esophagitis presence: esophagitis presence not specified Qualified Code(s): K21.9 - Gastro-esophageal reflux disease without esophagitis
--- NOTE | 2020-12-26 06:43 | XRay Report ---
XR chest 1V portable HISTORY: 75 years-old Male sepsis, hypoxia acute sepsis with hypoxia COMPARISON: Chest radiograph 12/16/2020 TECHNIQUE: Portable AP view of the chest FINDINGS: Cardiac silhouette is enlarged. Prior median sternotomy. Calcified plaque of the thoracic aorta. No p neumothorax. Right IJ dual-lumen hemodialysis catheter distal tip terminates in the expected location of the inferior SVC. Layering pleural effusions with bibasilar opacities. Pulmonary vascular congest ion with interstitial opacities. Degenerative changes of the shoulders and spine. IMPRESSION: 1. Cardiomegaly with pulmonary edema. 2. Layering pleural effusions with bibasilar consolidation, unchanged from comparison. ACT 112: Negative or not required by law. The above report was generated using voice recognition software. It may contain grammatical, syntax o r spelling errors. Electronically signed by: Romel May M.D. 12/26/2020 6:42 AM
[2020-12-26] MEDS ORDERED: ONDANSETRON INJ 2 MG/ML 2 ML VIAL IV PRN (07:18)
[2020-12-26] MEDS ORDERED: TRIAMCINOLONE ACET 0.1% CR 15 GM TUBE TOP PRN (07:18)
[2020-12-26] MEDS ORDERED: ACETAMINOPHEN 325 MG TAB PO PRN (07:18)
[2020-12-26] MEDS ORDERED: ALBUT/IPRATROP 3MG/0.5MG NEB 3 ML VIAL NEB PRN (07:18)
[2020-12-26] MEDS ORDERED: PIPERACILL/TAZOBAC CONSULT ACTIVE PRN (07:18)
[2020-12-26] MEDS ORDERED: VANCOMYCIN HCL 1,000 MG in SODIUM CHLORIDE 0.9% 250 ML IV SCH (07:18)
[2020-12-26] MEDS ORDERED: PIPERACILLIN/TAZOBACTAM 3.375 GM in DEXTROSE 5% 100 ML IV SCH ×2 (07:18→18:00)
[2020-12-26] MEDS ORDERED: PIPERACILLIN/TAZOBACTAM 3.375 GM in DEXTROSE 5% 100 ML IV ONE (08:00)
[2020-12-26] MEDS ORDERED: WOUND DRESSINGS TOP SCH (09:00)
[2020-12-26] MEDS: DOCUSATE SODIUM 100 MG CAP PO SCH (09:53)
--- NOTE | 2020-12-26 11:04 | Nephrology Consultation ---
Date of Consultation December 26, 2020 Assessment & Plan (1) ESRD on hemodialysis: Mr. Mata has end-stage renal disease, has been on hemodialysis Saturday, Saturday, Saturday. Admitted with change in mental status in the setting of urosepsis, currently on vancomycin and Zosyn empirically. Currently BP, volume status, electrolyte acceptable. --hemodialysis for 3.5 hours today as his regular schedule, UF goal to EDW - continued Nephrocaps and renal diet --dose medications for GFR less than 10 --left arm nephrology precaution ( AVF) Will follow (2) Anemia: (3) Aphasia: (4) Acute UTI (urinary tract infection): History of Present Illness Attending Physician: Geovany De La Cruz MD History of Present Illness Miguel Mata is a 75-year-old gentlemen with h/o ESRD on hemodialysis, CVA, hypertension, diabetes, CHF and h/o repeated fall admitted to the hospital with change in mental status and urosepsis. Nephrology consult was requested to manage hemodialysis while inpatient. Electronic medical records including labs and imaging reviewed in detail during patient's visit. Most of the informations awe re retrieved from EMR review as patient could not provide any history Mr. Mata was brought to the hospital with fever and change in mental status and found to have leukocytosis and UTI. Started at on vancomycin and Zosyn empirically pending culture. Lab showed potassium normal , other electrolyte acceptable and BUN creatinine at baseline. Blood pressure well control, no respiratory distress. BP, HR stable. He has h/o repeated hospital admissions over last few months with recurrent fall, change in mental status and hypotension. Had repeated discussion with family and with involvement of palliative care. End-stage renal disease secondary to renovascular disease, has been on hemodialysis via right IJ tunneled dialysis catheter at [facility] on Saturday, Saturday, Saturday, has left BC AVF but not in use with h/o repeated infiltration with movement during HD. Currently he was awake but seems lethargic, did not respond to any question or communicate although normally he does respond minimally Allergies Allergy/AdvReac Type Severity Reaction Status Date / Time adhesive Allergy Unknown BLISTERING Verified 12/26/20 02:58 OF SKIN latex Allergy Unknown Rash Verified 12/26/20 02:58 Home Medications Medication Instructions Recorded Confirmed Type Renal Caps 1 cap PO QAM #30 cap 11/20/19 12/26/20 Rx docusate sodium [Stool Softener] 100 mg PO DAILY 04/13/20 12/26/20 History isosorbide mononitrate 30 mg PO DAILY #30 tab 10/04/20 12/26/20 Rx amlodipine 2.5 mg PO HS 11/28/20 12/26/20 History calcitriol [Rocaltrol] 0.25 mcg PO MOWEFR 11/28/20 12/26/20 History citalopram 10 mg tablet 10 mg PO HS #30 tab 12/15/20 12/26/20 Rx clopidogrel 75 mg tablet 75 mg PO DAILY #30 tab 12/15/20 12/26/20 Rx collagenase clostridium histo. 250 1 applic TOPICAL UD #30 g 12/15/20 12/26/20 Rx unit/gram topical ointment famotidine 40 mg tablet 40 mg PO BID #180 tab 12/15/20 12/26/20 Rx atorvastatin 80 mg tablet 80 mg PO DAILY #30 tab 12/16/20 12/26/20 Rx levetiracetam 500 mg tablet 500 mg PO SUTUTHSA 30 Days #18 tab 12/19/20 12/26/20 Rx triamcinolone acetonide 1 applic TOPICAL BID PRN 12/26/20 12/26/20 History wound dressings [Triad Wound 1 applic TOPICAL DAILY 12/26/20 12/26/20 History Dressing] Patient History Medical History (Updated 12/26/20 @ 05:56 by Trip Daniels MD) Acidosis, lactic Benign prostatic hyperplasia CAD (coronary artery disease) s/p CABG 2007 Carotid artery stenosis s/p remote R & L endarterectomies with L re-occlusion sometime before 2010. Being monitored by [facility] neuro, on Plavix. Chronic kidney disease Congestive heart failure (CHF) Dementia Depression Diabetes mellitus, type 2 A1C 5.4% 11/2019. Not on any medication. Diabetic peripheral neuropathy Esophageal reflux Flash pulmonary edema 11/2019 Hemodialysis patient SAT/SAT/SATURDAY [facility] 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 (1 YEAR AFTER [facility]) ?1989' Hyperlipidemia Hypertension Memory problem PT REPORTS "DEMENTIA" "COMES AND GOES" Myocardial Infarction 1989? Pleural effusion due to CHF (congestive heart failure) Renal artery stenosis s/p left renal artery stenting; moderate right renal artery stenosis but no significant left renal artery stenosis on 11/2019 duplex Seizure disorder Stable on Keppra, no seizure for "a long time." Follows with [facility] neurology. SNHL (sensorineural hearing loss) Surgical History History of aorto-femoral bypass History of bypass graft (non vein) Aortic-femoral or bifemoral History of carotid endarterectomy L 1998, R 2009 History of cataract surgery RT/LEFT History of colonoscopy History of esophagogastroduodenoscopy (EGD) History of tooth extraction History of vascular access device IJ FOR DIAYLSIS S/P CABG (coronary artery bypass graft) (2007) [facility] Family History Brother Hypertension Hypercholesteremia Sister Diabetes Unknown Hypertension Cardiac disorder Social History Smoking Status: Former smoker Tobacco Type: Cigarettes Cigarettes Per Day: 30; Second Hand Exposure: No; Hx Alcohol Use: No Hx Substance Use: No Preferred Language: [place] Communication Ability: Impaired Visual Impairment: No Limitations Physiology Teacher Required: No Beliefs That Will Affect Care: None marital status: Current Living Situation: Spouse Current Living Situation Comment: at [facility] current occupational status: 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 Respiratory: normal respiratory effort, lungs clear to auscultation no cough Cardiovascular: RRR, no murmur, no edema Extremities: + AV fistula Gastrointestinal (Abdomen): normal bowel sounds, soft, nontender, no hepatosplenomegaly Percussion/Palpation: abdomen nontender, no guarding and abdomen not rigid Musculoskeletal: Extremities: extremities normal to inspection Skin: no rashes, warm and dry Neurologic: + obtunded Detailed neuro exam was not possible Results & Data ([facility]) Vital Signs (Past 12 Hours) Vital Signs Temp Pulse Pulse Resp BP BP BP 12/26/20 07:04 36.5 C 90 16 108/68 12/26/20 06:40 36.8 C 89 18 116/73 12/26/20 05:59 37.6 C H 12/26/20 05:30 97 H 23 135/85 12/26/20 05:00 93 H 22 123/84 12/26/20 04:30 98 H 22 128/91 12/26/20 04:14 103 H 22 140/92 12/26/20 03:20 38.9 C H 12/26/20 03:15 12/26/20 03:07 12/26/20 03:05 112 H 18 155/91 H 12/26/20 02:53 110 H 22 155/91 H Pulse Ox 12/26/20 07:04 93 12/26/20 06:40 100 12/26/20 05:59 12/26/20 05:30 96 12/26/20 05:00 95 12/26/20 04:30 98 12/26/20 04:14 100 12/26/20 03:20 12/26/20 03:15 92 12/26/20 03:07 96 12/26/20 03:05 98 12/26/20 02:53 86 L PG Care Time/CCT Total # of Minutes Spent Total Time Spent with Patient: Total time spent is greater than 50% in coordination of care (as documented) at patient's floor/unit and/or counseling patient: Coding Level of Care Code 13612 Initial Inpt Care Lvl 3 Diagnoses ESRD on hemodialysis N18.6; Z99.2 Anemia D64.9 Aphasia R47.01 Acute UTI (urinary tract infection) N39.0
[2020-12-26] MEDS: ISOSORBIDE MONO EXTENDED REL 30 MG TABCR PO SCH (11:30)
[2020-12-26] MEDS: FAMOTIDINE 40 MG TABLET PO SCH ×2 (11:30→23:42)
[2020-12-26] MEDS: CLOPIDOGREL BISULFATE 75 MG TAB PO SCH (11:30)
[2020-12-26] MEDS: NEPHROCAPS PO SCH (11:30)
[2020-12-26] MEDS: CALCITRIOL 0.25 MCG CAPSULE PO SCH (11:30)
[2020-12-26] MEDS: ATORVASTATIN 40 MG TAB PO SCH (11:30)
[2020-12-26] MEDS: COLLAGENASE OINT 30 GM TUBE TOP SCH (11:31)
--- NOTE | 2020-12-26 13:14 | History & Physical Bridge Note ---
Date of Service December 26, 2020 History & Physical Bridge Note Seen and examined today. He is alert and follows with eyes, but does not answer any questions which is slightly worse than on discharge a week ago. - Continue to treat his UTI and/or aspiration - Discussed with ADMINISTRATIVE OFFICE CLERK who adjusted his diet to prior recommendations. - Will work with re: goals of care.
[2020-12-26 14:08] LABS: Cdiff Antigen Positive
[2020-12-26 14:10] LABS: Cdiff Toxin A+B Positive Cdiff Toxin (Negative)
[2020-12-26] MEDS: cefTRIAXone SODIUM 1,000 MG in DEXTROSE 5% 50 ML IV SCH (17:12)
[2020-12-26] MEDS: VANCOMYCIN HCL 125 MG/2.5ML SOLN PO SCH ×2 (17:12→23:43)
[2020-12-26] MEDS: RASPBERRY SYRUP 5 ML UDP PO SCH ×2 (17:12→23:44)
[2020-12-26] MEDS: amLODIPine BESYLATE 5 MG TAB PO SCH (23:40)
[2020-12-26] MEDS: CITALOPRAM 20 MG TAB PO SCH (23:42)
--- NOTE | 2020-12-27 05:29 | Electrocardiogram Report ---
Test Reason : Blood Pressure : / mmHG Vent. Rate : 113 BPM Atrial Rate : 113 BPM P-R Int : 174 ms QRS Dur : 104 ms QT Int : 344 ms P-R-T Axes : 000 -72 066 degrees QTc Int : 471 ms Sinus tachycardia Left axis deviation Inferior-posterior infarct (cited on or before 18-NOV-2020) Nonspecific ST and T wave abnormality Abnormal ECG When compared with ECG of 16-DEC-2020 19:45, No significant change Confirmed by Laurent Aguila ([id number]) on 12/27/2020 5:29:10 AM Referred By: REFERRED SELF Confirmed By:Laurent Aguila
[2020-12-27] MEDS: VANCOMYCIN HCL 125 MG/2.5ML SOLN PO SCH ×4 (06:03→23:54)
[2020-12-27] MEDS: RASPBERRY SYRUP 5 ML UDP PO SCH ×4 (06:03→23:54)
[2020-12-27 07:48] LABS: Basophils # (auto) 0.01 K/uL (0-0.2); Basophils % (auto) 0.1 %; Eosinophils # (auto) 0.11 K/uL (0-0.5); Eosinophils % (auto) 0.6 %; Hematocrit (blood only) 30.7 % (42-52); Hemoglobin 9.8 g/dL (14.0-18.0); Immature Granulocytes # (auto) 0.06 K/uL (0.00-0.02); Immature Granulocytes % (auto) 0.3 %; Lymphocytes # (auto) 0.78 K/uL (1.2-3.4); Lymphocytes % (auto) 4.2 %; Mean Corpuscular Hemoglobin 29.5 pg (25-34); Mean Corpuscular Hgb Conc 31.9 g/dL (32-36); Mean Corpuscular Volume 92.5 fL (80-100); Monocytes # (auto) 1.03 K/uL (0.11-0.59); Monocytes % (auto) 5.6 %; Neutrophils # (auto) 16.46 K/uL (1.4-6.5); Neutrophils % (auto) 89.2 %; Platelet Count 413 K/uL (130-400); RDW Coefficient of Variation 17.8 % (11.5-14.5); RDW Standard Deviation 60.2 fL (36.4-46.3); Red Blood Count 3.32 M/uL (4.7-6.1); White Blood Count 18.45 K/uL (4.8-10.8)
[2020-12-27 08:37] LABS: Albumin Globulin Ratio 0.3 (0.9-2); Albumin Level 1.6 gm/dl (3.4-5.0); BUN Creatinine Ratio 13.2 (10-20); Bilirubin,Total 0.4 mg/dl (0.2-1); Calcium 8.4 mg/dl (8.5-10.1); Creatinine Clr Calc Pharmacy 23.8 ml/min; Est GFR (African American) 39.3; Total Protein 6.6 gm/dl (6.4-8.2)
[2020-12-27] MEDS: levETIRAcetam 500 MG TAB PO SCH ×2 (08:58→09:15)
[2020-12-27] MEDS: FAMOTIDINE 40 MG TABLET PO SCH ×3 (08:59→21:55)
[2020-12-27] MEDS: ISOSORBIDE MONO EXTENDED REL 30 MG TABCR PO SCH ×2 (08:59→09:15)
[2020-12-27] MEDS: CLOPIDOGREL BISULFATE 75 MG TAB PO SCH ×2 (08:59→09:15)
[2020-12-27] MEDS: NEPHROCAPS PO SCH ×2 (08:59→09:15)
[2020-12-27] MEDS: ATORVASTATIN 40 MG TAB PO SCH ×2 (09:00→09:15)
[2020-12-27] MEDS: COLLAGENASE OINT 30 GM TUBE TOP SCH ×2 (09:00→09:06)
[2020-12-27] MEDS: DOCUSATE SODIUM 100 MG CAP PO SCH ×2 (09:05→09:15)
--- NOTE | 2020-12-27 10:17 | Nephrology Progress Note ---
Date of Service December 27, 2020 Assessment & Plan (1) ESRD on hemodialysis: Mr. Mata has end-stage renal disease, has been on hemodialysis Saturday, Saturday, Saturday. Admitted with change in mental status in the setting of urosepsis, currently on vancomycin and Zosyn empirically and oral vanco for C. Diff Currently BP, volume status, acceptable. Low k. --KCL 40 meq IV - continued Nephrocaps and renal diet --dose medications for GFR less than 10 --left arm nephrology precaution ( AVF) --overall doing poorly. Will follow (2) Anemia: (3) Aphasia: (4) Acute UTI (urinary tract infection): Admission and Anticipated Discharge Date Admission Date: December 26, 2020 Jesus Rivera was seen and examined this am. Lethargic, did not open eyes or communicate. Had HD yesterday, vitals stable, low K. Review of Systems Review of Systems: Unobtainable due to mental health condition Physical Exam Constitutional: WD/WN, vitals as above + ill appearing, + altered mental status and + lethargic; no acute distress Neck: normal visual inspection Respiratory: normal respiratory effort, lungs clear to auscultation no cough Auscultation: no crackles, no rales and no wheezes Cardiovascular: RRR, no murmur, no edema Extremities: + AV fistula Skin: no rashes, warm and dry Neurologic: + obtunded Results & Data ([facility]) Vital Signs (Past 12 Hours) Vital Signs Temp Pulse Pulse Resp BP BP Pulse Ox 12/27/20 07:57 37.2 C 90 18 101/66 90 12/27/20 03:03 37.1 C 90 18 111/69 90 12/27/20 01:40 112 H 12/26/20 23:49 37.7 C H 67 17 120/72 97 12/26/20 23:00 37.1 C 74 74 115/85 115/85 12/26/20 22:40 111 H 89/65 L 12/26/20 22:20 87 142/67 H PG Care Time/CCT Total # of Minutes Spent Total Time Spent with Patient: Total time spent is greater than 50% in coordination of care (as documented) at patient's floor/unit and/or counseling patient: Coding Level of Care Code 34604 Subseq Hosp Care Lvl 2 Diagnoses ESRD on hemodialysis N18.6; Z99.2 Anemia D64.9 Aphasia R47.01 Acute UTI (urinary tract infection) N39.0
[2020-12-27] MEDS: POTASSIUM CHLORIDE / WTR 10 MEQ/100 ML PLCT IV SCH ×4 (11:00→15:52)
--- NOTE | 2020-12-27 13:12 | Hospitalist Progress Note ---
Date of Service December 27, 2020 Assessment & Plan (1) C. difficile colitis: Had diarrhea prior to admission which resolved, then more on admission. - C. diff was positive on 12/26/2020 - Started vancomycin 125 mg PO QID on 12/26 (Planned end date: 01/08/2021 for 2- week course) - Considering ID consult given recurrent C. diff (2) Pleural effusion due to CHF (congestive heart failure): Layering pleural effusions. Unclear if associated with CHF vs. aspiration and pneumonia. - Will get CT chest to better characterize. - Consider pulmonary consult (3) CAD (coronary artery disease): Prior CABG in 2007. Troponin up to 1.6, but stable this admission. EKGs with no acute changes. No chest pain. - Continue clopidogrel, Imdur, statin - Consult cardiology given high troponin (4) Hypoxia: Hypoxia secondary to pneumonia, CHF with layering pleural effusions and bibasilar consolidations, with on and off history of aspiration. - Most recent hospitalization from 11/16/2020 - 12/17/2020 for similar presentation. (5) End stage renal failure on dialysis: Usual dialysis days are on Saturday/Saturday/Saturday. - Consult nephrology. - Continue usual dialysis. (6) Aspiration pneumonia: Zosyn IV - As above (7) Pulmonary edema: As above (8) Type 2 diabetes mellitus: On no active treatment. A1c was 4.0% in 09/2020. Glucose upon admission was 174. 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 (12) Dysphagia: Monitor for aspiration. - MANAGER GALLERY evaluated -> Continue same recommendations as prior admission. * Pureed diet * NECTAR thick liquids * Patient fed all meals. * Mouth care * General aspiration precautions (13) Pressure ulcer of sacral region, stage 3: Consult wound care for dressing changes (14) Depression: Continue citalopram (15) GERD (gastroesophageal reflux disease): Continue famotidine (16) DVT prophylaxis: Admission and Anticipated Discharge Date Admission Date: December 26, 2020 Subjective No real responses. Denies pain, abdominal pain, chest pain, but otherwise not really able to answer questions. Review of Systems Review of Systems: Unobtainable due to cognitive status Physical Exam Constitutional: WD/WN, vitals as above + cachectic and + physical limitations Eyes: EOM intact bilaterally; no conjunctival abnormality ENMT: external ear and nose normal, oropharynx normal Neck: trachea midline, no thyromegaly normal visual inspection Respiratory: normal respiratory effort, lungs clear to auscultation no respiratory distress Cardiovascular: RRR, no murmur, no edema Gastrointestinal (Abdomen): Inspection/Auscultation: abdomen normal to inspection; abdomen not distended Musculoskeletal: no cyanosis or clubbing, extremities motor strength 5/5 Skin: no rashes, warm and dry Neurologic: moves all extremities and awake Psychiatric: Orientation: alert and cooperative; + not oriented to person Results & Data Results & Data ([facility]) Vital Signs (Past 12 Hours) Vital Signs Temp Pulse Pulse Resp BP BP Pulse Ox 12/27/20 11:32 37 C 72 19 110/68 91 12/27/20 07:57 37.2 C 90 18 101/66 90 12/27/20 03:03 37.1 C 90 18 111/69 90 12/27/20 01:40 112 H PG Care Time/CCT Total # of Minutes Spent Total Time Spent with Patient: Total time spent is greater than 50% in coordination of care (as documented) at patient's floor/unit and/or counseling patient: Coding Level of Care Code 75594 Subseq Hosp Care Lvl 3 Diagnoses C. difficile colitis A04.72 Pleural effusion due to CHF (congestive heart failure) I50.9 CAD (coronary artery disease) I25.10 Coronary Disease-Associated Artery/Lesion type: platinum artery [place] vs. transplanted heart: platinum heart Associated angina: without angina Hypoxia R09.02 End stage renal failure on dialysis N18.6; Z99.2 Aspiration pneumonia J69.0 Pulmonary edema J81.0 Chronicity: acute Type 2 diabetes mellitus E11.9 Seizure disorder G40.909 Hypertension I10 Hypertension type: essential hypertension Aphasia R47.01 Dysphagia R13.10 Pressure ulcer of sacral region, stage 3 L89.153 Depression F32.9 Depression Type: unspecified GERD (gastroesophageal reflux disease) K21.9 Esophagitis presence: esophagitis presence not specified DVT prophylaxis Z29.9 (1) Pulmonary edema Chronicity: acute Qualified Code(s): J81.0 - Acute pulmonary edema (2) CAD (coronary artery disease) Coronary Disease-Associated Artery/Lesion type: platinum artery [place] vs. transplanted heart: platinum heart Associated angina: without angina Qualified Code(s): I25.10 - Atherosclerotic heart disease of platinum coronary artery without angina pectoris (3) Hypertension Hypertension type: essential hypertension Qualified Code(s): I10 - Essential (primary) hypertension (4) Depression Depression Type: unspecified Qualified Code(s): F32.9 - Major depressive disorder, single episode, unspecified (5) GERD (gastroesophageal reflux disease) Esophagitis presence: esophagitis presence not specified Qualified Code(s): K21.9 - Gastro-esophageal reflux disease without esophagitis
[2020-12-27] MEDS ORDERED: GLUCAGON FOR INJ 1 MG VIAL SQ PRN (13:15)
[2020-12-27] MEDS ORDERED: GLUCOSE 10 TABS/TUBE PO PRN (13:15)
[2020-12-27] MEDS ORDERED: GLUCOSE 40% GEL 15 GM TUBE PO PRN (13:15)
[2020-12-27] MEDS ORDERED: DEXTROSE 50% 50 ML SYRINGE IV PRN (13:15)
[2020-12-27] MEDS ORDERED: CARBOHYDRATES FOR HYPOGLYCEMIA PO PRN (13:15)
--- NOTE | 2020-12-27 13:57 | CT Scan Report ---
CT chest diagnostic wo con CT DOSE: 223.56 mGy.cm HISTORY: Complex pleural effusion TECHNIQUE: Multiaxial CT images of the chest were performed without contrast. A dose lowering techni que was utilized adhering to the principles of ALARA. COMPARISON: Chest CT 02/04/2020. FINDINGS: A single stable mildly enlarged right paratracheal lymph node measuring 1 cm short axis pilar meter. No hilar lymphadenopathy. Right jugular central venous catheter terminates in the distal SVC. No pericardial effusion. Limited views of the upper abdomen demonstrate a normal liver, spleen, and a drenal glands. Mild calcified plaque within the normal caliber thoracic aorta. There are moderate taylor ateral pleural effusions. Possible septation seen within the right pleural effusion on image 160. Thi s is difficult to assess on this noncontrast study. No fractures within the visualized osseous struct ures. No pneumothorax. Moderate emphysema. The central airways are patent. Linear areas of consolidat ion within the lower lobes posteriorly favor compressive atelectasis from the pleural effusions. Othe rwise, no focal lung consolidations to suggest pneumonia. IMPRESSION: 1. Moderate bilateral pleural effusions. Possible septation seen within the right pleural effusion. 2. Consolidation within the bilateral lower lobes posteriorly favor compressive atelectasis from the pleural effusions. 3. Moderate emphysema. ACT 112: Negative or not required by law. Electronically signed by: Byron Austin M.D. 12/27/2020 1:56 PM
--- NOTE | 2020-12-27 16:41 | Cardiology Consultation ---
Date of Consultation December 27, 2020 Assessment & Plan (1) Elevated troponin: (2) CAD (coronary artery disease): (3) S/P CABG (coronary artery bypass graft): (4) Second degree AV block, Mobitz type I: (5) Non-ST elevation (NSTEMI) myocardial infarction: (6) Pleural effusion: ASSESSMENT/PLAN: 1. NSTEMI/elevated troponin: He did not present with acute coronary syndrome. He does have underlying CAD. This is likely demand ischemia in the setting of multivessel CAD. He has chronically elevated troponin levels. On presentation he appear to be acutely infected with significant leukocytosis which has improved with antibiotic therapy including concern for pulmonary etiology and C diff. Would not pursue ischemic evaluation. He is on anti-platelet therapy. 2. CAD s/p CABG: Details of his CABG are not known at the time of this note. Stable ECG findings and given his mental status, unclear if he has had angina. Continue medical therapy. 3. Pleural effusion: Etiology not certain. Possible septation on CT scan per Radiology. If his pleural effusions are ongoing issues, would consider pulmonary consultation to see if thoracentesis may offer some symptomatic benefit as he has been admitted twice with breathing difficulties. 4. Mobitz 1: No evidence of significant pause on telemetry. No specific therapy necessary. 5. ESRD on HD: He appears to be euvolemic on examination. Volume status is managed by dialysis. 6. Disposition: Cardiology will sign off at this time. Please call with any other questions or concerns. Thank you for allowing me to participate in the care of your patient. Please call for any other questions or concerns. Sincerely, Geronimo Aguila M.D. History of Present Illness Reason for Consultation: Elevated troponin Requesting Physician: Geovany De La Cruz MD Attending Physician: Geovany De La Cruz MD History of Present Illness Mr. Mata is a 75-year-old gentleman with history significant for CAD status post CABG (2007), ESRD on HD, she has her disorder, stroke, dimension, hypertension, carotid artery stenosis status post bilateral endarterectomies with left-sided reocclusion, type 2 diabetes, and renal artery stenosis status post left renal artery stenting. He was recently seen in the hospital in consultation by Dr. Gallardo for cardiology care. He is noncommunicative for today's visit And apparently this is chronic for him. Based on records from March hospitalization, he would communicate by no dding his head or via eye movement. Today's history was obtained by reviewing records/chart. He was admitted on 12/26/[address] scan of the chest demonstrated moderate bilateral pleural effusions with possible septation within the right pleural effusion. There was also consolidation reported within the bilateral lower lobes. His oxygen saturation on presentation was 86%. According to records, there has been concern for aspiration and a swallow study on 12/14/2020 demonstrated tracheal aspiration with thin liquids. He undergoes dialysis to manage his volume status. His WBC on presentation was 34.2, while it was 15.89 on 12/17/2020. He has also been noted to test positive for C diff on 12/26/2020. He is being treated on Zosyn for aspiration pneumonia. On telemetry he has been noted to have first-degree AV block and also Mobitz 1 without significant pauses. According to records, this is not new. Troponin levels have been checked during this hospital stay and initially was 1.63 with a repeat of 1.64. Interestingly, troponin levels are chronically elevated dating back to 11/24/2019. When asked if he was in any pain or shortness of breath today, he did not give any indication. With verbal stimuli he did open his right eye but then quickly closed it without clear communication. His ECGs during this hospital stay have been personally reviewed and demonstr ated sinus rhythm (12/26/2020 at 3:14 a.m.) with inferior posterior infarct and nonspecific ST/T-wave abnormalities without significant change when compared to 12/16/2020 ECG. Review of systems: Unobtainable due to patient's mental status. Family history: Unobtainable from patient and noncontributory. Social history: According to records he resides at the [facility]. He was unaccompanied in his room. Allergies Allergy/AdvReac Type Severity Reaction Status Date / Time adhesive Allergy Unknown BLISTERING Verified 12/26/20 02:58 OF SKIN latex Allergy Unknown Rash Verified 12/26/20 02:58 Home Medications Medication Instructions Recorded Confirmed Type Renal Caps 1 cap PO QAM #30 cap 11/20/19 12/26/20 Rx docusate sodium [Stool Softener] 100 mg PO DAILY 04/13/20 12/26/20 History isosorbide mononitrate 30 mg PO DAILY #30 tab 10/04/20 12/26/20 Rx amlodipine 2.5 mg PO HS 11/28/20 12/26/20 History calcitriol [Rocaltrol] 0.25 mcg PO MOWEFR 11/28/20 12/26/20 History citalopram 10 mg tablet 10 mg PO HS #30 tab 12/15/20 12/26/20 Rx clopidogrel 75 mg tablet 75 mg PO DAILY #30 tab 12/15/20 12/26/20 Rx collagenase clostridium histo. 250 1 applic TOPICAL UD #30 g 12/15/20 12/26/20 Rx unit/gram topical ointment famotidine 40 mg tablet 40 mg PO BID #180 tab 12/15/20 12/26/20 Rx atorvastatin 80 mg tablet 80 mg PO DAILY #30 tab 12/16/20 12/26/20 Rx levetiracetam 500 mg tablet 500 mg PO SUTUTHSA 30 Days #18 tab 12/19/20 12/26/20 Rx triamcinolone acetonide 1 applic TOPICAL BID PRN 12/26/20 12/26/20 History wound dressings [Triad Wound 1 applic TOPICAL DAILY 12/26/20 12/26/20 History Dressing] Patient History Medical History (Updated 12/27/20 @ 21:35 by Laurent Aguila MD) Acidosis, lactic Benign prostatic hyperplasia CAD (coronary artery disease) s/p CABG 2007 Carotid artery stenosis s/p remote R & L endarterectomies with L re-occlusion sometime before 2010. Being monitored by [facility] neuro, on Plavix. Chronic kidney disease Dementia Depression Diabetes mellitus, type 2 A1C 5.4% 11/2019. Not on any medication. Diabetic peripheral neuropathy Esophageal reflux Flash pulmonary edema 11/2019 Hemodialysis patient MON/SAT/SATURDAY [facility] 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 (1 YEAR AFTER AR) ?1989' Hyperlipidemia Hypertension Memory problem PT REPORTS "DEMENTIA" "COMES AND GOES" Myocardial Infarction 1989? Pleural effusion Renal artery stenosis s/p left renal artery stenting; moderate right renal artery stenosis but no significant left renal artery stenosis on 11/2019 duplex Seizure disorder Stable on Keppra, no seizure for "a long time." Follows with [facility] neurology. SNHL (sensorineural hearing loss) Surgical History (Updated 12/27/20 @ 21:35 by Laurent Aguila MD) History of aorto-femoral bypass History of bypass graft (non vein) Aortic-femoral or bifemoral History of carotid endarterectomy L 1998, R 2009 History of cataract surgery RT/LEFT History of colonoscopy History of esophagogastroduodenoscopy (EGD) History of tooth extraction History of vascular access device IJ FOR DIAYLSIS S/P CABG (coronary artery bypass graft) (2007) [facility] Family History Brother Hypertension Hypercholesteremia Sister Diabetes Unknown Hypertension Cardiac disorder Social History Smoking Status: Former smoker Tobacco Type: Cigarettes Cigarettes Per Day: 30; Second Hand Exposure: No; Hx Alcohol Use: No Hx Substance Use: No Preferred Language: Pashto Communication Ability: Unable Visual Impairment: No Limitations Punch Molder Required: No Beliefs That Will Affect Care: None marital status: Current Living Situation: Spouse Current Living Situation Comment: at [facility] current occupational status: 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 Somnolent. Opens his right eye to verbal stimuli. Non communicative. HEENT: Anicteric sclera. Neck: No JVD. No bruits. Normal carotid upstrokes bilaterally. Cardiac: No ventricular heave. Regular with occasional ectopy. Normal S1-S2. 1/6 systolic murmur. No rubs, or gallops. Pulmonary: Clear to auscultation bilaterally without wheezes, rales, or rhonchi. (Anterior auscultation with poor pt effort) Abdomen: Soft, nontender, nondistended, with normoactive bowel sounds. No bruits noted. Extremities: 1+ radial pulses bilaterally. 1+ right posterior tibialis pulse. Left foot in a boot. No edema or cyanosis. Results & Data ([facility]) Vital Signs (Past 12 Hours) Vital Signs Temp Pulse Pulse Resp BP BP Pulse Ox 12/27/20 15:32 81 12/27/20 11:32 37 C 72 19 110/68 91 12/27/20 07:57 37.2 C 90 18 101/66 90 Intake & Output 12/25/20 12/26/20 12/27/20 12/28/20 06:59 06:59 06:59 06:59 Intake Total 1100 / 1100 805 / 805 287.50 / 287.50 Balance 1100 / 1100 805 / 805 287.50 / 287.50 Weight 110 lb 14.28 oz 110 lb 0.171 oz Laboratory Results Laboratory Results - last 24 hr 12/27/20 12/27/20 12/27/20 07:22 07:22 16:31 WBC 18.45 H RBC 3.32 L Hgb 9.8 L Hct 30.7 L MCV 92.5 MCH 29.5 MCHC 31.9 L RDW Std Deviation 60.2 H RDW Coeff of Shayy 17.8 H Plt Count 413 H MPV 10.0 Immature Gran % (Auto) 0.3 Neut % (Auto) 89.2 Lymph % (Auto) 4.2 [place] % (Auto) 5.6 Eos % (Auto) 0.6 Baso % (Auto) 0.1 Neut # (Auto) 16.46 H Lymph # (Auto) 0.78 L [place] # (Auto) 1.03 H Eos # (Auto) 0.11 Baso # (Auto) 0.01 Immature Gran # (Auto) 0.06 H Sodium 136 Potassium 3.0 L D Chloride 99 Carbon Dioxide 31 Anion Gap 7.0 BUN 25 H D Creatinine 1.89 H D Est Cr Clr Drug Dosing 23.8 Est GFR ( Amer) 39.3 Est GFR (Non-Af Amer) 34.0 BUN/Creatinine Ratio 13.2 Glucose 121 H POC Glucose 125 H Calcium 8.4 L Total Bilirubin 0.4 AST 41 H ALT 46 Alkaline Phosphatase 95 Total Protein 6.6 Albumin 1.6 L Globulin 5.0 H Albumin/Globulin Ratio 0.3 L Diagnostic Findings Echo report reviewed from 06/27/2020: Normal LV size with mildly reduced systolic function. EF 45-50%. Akinesis of the inferolateral wall. Otherwise, mild global hypokinesis. Mild MR. Limited 2D study with limited spectral and color Doppler. Stable LV systolic function from 11/17/2019. ECGs personally reviewed: ECG 12/26/2020 at 3:14 a.m.: Sinus rhythm with first-degree AV block. Inferior posterior AR. Nonspecific ST/T-wave abnormality. No significant change from 12/16/2020. ECG 12/27/2020 at 5:47 a.m.: Sinus rhythm with possible Mobitz 1. PVCs. Inferior posterior AR. Telemetry personally reviewed: Sinus rhythm with first-degree AV block and intermittent Mobitz 1. No significant pauses. CT chest 12/27/2020: Moderate bilateral pleural effusions. Possible septation seen within the right pleural effusion. Consolidation within the bilateral lower lobes posteriorly, favor compressive atelectasis per Radiology. Moderate emphysema. Medications Administered Current Inpatient Medications Acetaminophen (Acetaminophen 325 Mg Tab) 650 mg PO Q4H PRN PRN Reason: Pain or Fever Stop: 01/25/21 07:17 Albuterol (Albut/Ipratrop 3mg/0.5mg Neb 3 Ml Vial) 3 ml NEB Q2H PRN PRN Reason: dyspnea Stop: 01/25/21 07:17 Amlodipine Besylate (Amlodipine Besylate 5 Mg Tab) 2.5 mg PO HS [facility] Stop: 01/25/21 20:59 Last Admin: 12/26/20 23:40 Dose: 2.5 mg Documented by: Atorvastatin Calcium (Atorvastatin 40 Mg Tab) 80 mg PO DAILY SEE Stop: 01/25/21 08:59 Last Admin: 12/27/20 09:15 Dose: Not Given Documented by: Calcitriol (Calcitriol 0.25 Mcg Capsule) 0.25 mcg PO MoWeFr@0900 SEE Stop: 01/25/21 08:59 Last Admin: 12/26/20 11:30 Dose: 0.25 mcg Documented by: Citalopram Hydrobromide (Citalopram 20 Mg Tab) 10 mg PO HS SEE Stop: 01/25/21 20:59 Last Admin: 12/26/20 23:42 Dose: 10 mg Documented by: Clopidogrel Bisulfate (Clopidogrel Bisulfate 75 Mg Tab) 75 mg PO DAILY SEE Stop: 01/25/21 08:59 Last Admin: 12/27/20 09:15 Dose: Not Given Documented by: Collagenase (Collagenase Oint 30 Gm Tube) 1 appln TOP DAILY SEE Stop: 01/25/21 08:59 Last Admin: 12/27/20 09:06 Dose: Not Given Documented by: Dextrose (Dextrose 50% 50 Ml Syringe) 25 - 50 ml IV UD PRN; Protocol PRN Reason: Hypoglycemia Protocol Stop: 01/26/21 13:14 Docusate Sodium (Docusate Sodium 100 Mg Cap) 100 mg PO DAILY [facility] Stop: 01/25/21 08:59 Last Admin: 12/27/20 09:15 Dose: Not Given Documented by: Famotidine (Famotidine 40 Mg Tablet) 40 mg PO BID [facility] Stop: 01/25/21 08:59 Last Admin: 12/27/20 09:15 Dose: Not Given Documented by: Glucagon (Glucagon For Inj 1 Mg Vial) 1 mg SQ UD PRN; Protocol PRN Reason: Hypoglycemia Protocol Stop: 01/26/21 13:14 Glucose (Glucose 10 Tabs/Tube) 4 - 8 tabs PO UD PRN; Protocol PRN Reason: Hypoglycemia Protocol Stop: 01/26/21 13:14 Glucose (Glucose 40% Gel 15 Gm Tube) 15 - 30 gm PO UD PRN; Protocol PRN Reason: Hypoglycemia Protocol Stop: 01/26/21 13:14 Ceftriaxone Sodium 1,000 mg/ (Dextrose) 50 mls @ 100 mls/hr IV Q24H [facility]; Protocol Stop: 01/05/21 15:59 Last Infusion: 12/26/20 18:00 Dose: Infused Documented by: Insulin Aspart (Insulin Aspart 100 Units/Ml 3 Ml Pen) 0 units SC ACHS [facility] Stop: 01/26/21 16:29 Isosorbide Mononitrate (Isosorbide [place] Extended Rel 30 Mg Tabcr) 30 mg PO DAILY [facility] Stop: 01/25/21 08:59 Last Admin: 12/27/20 09:15 Dose: Not Given Documented by: Levetiracetam (Levetiracetam 500 Mg Tab) 500 mg PO SuTuThSa@0900 [facility] Stop: 01/26/21 08:59 Last Admin: 12/27/20 09:15 Dose: Not Given Documented by: Miscellaneous (Triad Wound Dressing Paste~Order Awaiting Action) 1 ea N/A QS [facility] Stop: 01/25/21 15:59 Last Admin: 12/27/20 15:36 Dose: Not Given Documented by: Miscellaneous (Carbohydrates For Hypoglycemia ) 15 - 30 gm PO UD PRN PRN Reason: Hypoglycemia Protocol Stop: 01/26/21 13:14 Ondansetron HCl (Ondansetron Inj 2 Mg/Ml 2 Ml Vial) 4 mg IV Q6H PRN PRN Reason: Nausea Stop: 01/25/21 07:17 Raspberry (Raspberry Syrup 5 Ml Udp) 5 ml PO Q6 SEE Stop: 01/09/21 17:59 Last Admin: 12/27/20 12:28 Dose: 5 ml Documented by: Triamcinolone Acetonide (Triamcinolone Acet 0.1% Cr 15 Gm Tube) 1 appln TOP BID PRN PRN Reason: Skin Irritation Stop: 01/25/21 07:17 Vancomycin HCl (Vancomycin Hcl 125 Mg/2.5ml Soln) 125 mg PO Q6 SEE Stop: 01/05/21 17:59 Last Admin: 12/27/20 12:28 Dose: 125 mg Documented by: Vitamin B Complex/Folic Acid (Nephrocaps) 1 cap PO QAM SEE Stop: 01/25/21 08:59 Last Admin: 12/27/20 09:15 Dose: Not Given Documented by: PG Care Time/CCT Total # of Minutes Spent Total Time Spent with Patient: Total time spent is greater than 50% in coordination of care (as documented) at patient's floor/unit and/or counseling patient: Coding Level of Care Code 94400 Initial Inpt Care Lvl 3 Diagnoses Elevated troponin R79.89 CAD (coronary artery disease) I25.10 Associated angina: without angina Coronary Disease-Associated Artery/Lesion type: [place] artery [place] vs. transplanted heart: [place] heart S/P CABG (coronary artery bypass graft) Z95.1 Second degree AV block, Mobitz type I I44.1 Non-ST elevation (NSTEMI) myocardial infarction I21.4 Pleural effusion J90 (1) CAD (coronary artery disease) Associated angina: without angina Coronary Disease-Associated Artery/Lesion type: [place] artery [place] vs. transplanted heart: [place] heart Qualified Code(s): I25.10 - Atherosclerotic heart disease of [place] coronary artery without angina pectoris
[2020-12-27] MEDS: cefTRIAXone SODIUM 1,000 MG in DEXTROSE 5% 50 ML IV SCH (16:49)
[2020-12-27] MEDS: INSULIN ASPART 100 UNITS/ML 3 ML PEN SC SCH ×2 (17:40→21:59)
[2020-12-27] MEDS: amLODIPine BESYLATE 5 MG TAB PO SCH (21:47)
[2020-12-27] MEDS: CITALOPRAM 20 MG TAB PO SCH (21:54)
[2020-12-28] MEDS: VANCOMYCIN HCL 125 MG/2.5ML SOLN PO SCH ×4 (05:37→23:39)
[2020-12-28] MEDS: RASPBERRY SYRUP 5 ML UDP PO SCH ×4 (05:37→23:39)
--- NOTE | 2020-12-28 06:27 | Electrocardiogram Report ---
Test Reason : Blood Pressure : / mmHG Vent. Rate : 081 BPM Atrial Rate : 093 BPM P-R Int : 224 ms QRS Dur : 108 ms QT Int : 408 ms P-R-T Axes : 085 -77 090 degrees QTc Int : 473 ms Poor data quality, interpretation may be adversely affected Sinus rhythm with 1st degree A-V block with 2nd degree A-V block (Mobitz I) Premature ventricular complexes Possible Left atrial enlargement Left axis deviation Inferior-posterior infarct (cited on or before 18-NOV-2020) Abnormal ECG When compared with ECG of 26-DEC-2020 03:14, Premature ventricular complexes are now Present Intermittent Mobitz I is now present Confirmed by Laurent Aguila ([id number]) on 12/28/2020 6:27:09 AM Referred By: REFERRED SELF Confirmed By:Laurent Aguila
[2020-12-28 07:33] LABS: Basophils # (auto) 0.01 K/uL (0-0.2); Basophils % (auto) 0.1 %; Eosinophils # (auto) 0.16 K/uL (0-0.5); Eosinophils % (auto) 1.4 %; Hematocrit (blood only) 33.4 % (42-52); Hemoglobin 10.5 g/dL (14.0-18.0); Immature Granulocytes # (auto) 0.03 K/uL (0.00-0.02); Immature Granulocytes % (auto) 0.3 %; Lymphocytes # (auto) 1.39 K/uL (1.2-3.4); Lymphocytes % (auto) 12.1 %; Mean Corpuscular Hgb Conc 31.4 g/dL (32-36); Mean Corpuscular Volume 92.3 fL (80-100); Mean Platelet Volume 9.9 fL (7.4-10.4); Monocytes # (auto) 0.75 K/uL (0.11-0.59); Monocytes % (auto) 6.5 %; Neutrophils # (auto) 9.12 K/uL (1.4-6.5); Neutrophils % (auto) 79.6 %; Nucleated RBC # (auto) 0.02 K/uL (0-0); Nucleated RBC % (auto) 0.2 %; Platelet Count 416 K/uL (130-400); RDW Coefficient of Variation 17.9 % (11.5-14.5); RDW Standard Deviation 60.5 fL (36.4-46.3); Red Blood Count 3.62 M/uL (4.7-6.1); White Blood Count 11.46 K/uL (4.8-10.8)
[2020-12-28 08:01] LABS: Estimated Average Glucose 128 mg/dl; Hemoglobin A1C 6.1 % (4.5-5.6)
[2020-12-28 08:12] LABS: Albumin Level 1.6 gm/dl (3.4-5.0); BUN Creatinine Ratio 13.4 (10-20); Calcium 8.6 mg/dl (8.5-10.1); Creatinine Clr Calc Pharmacy 17.4 ml/min; Est GFR (African American) 27.3; Est GFR (Non-African American) 23.5; Magnesium 2.1 mg/dl (1.8-2.4); Potassium 3.8 mmol/L (3.5-5.1)
[2020-12-28 08:18] LABS: Albumin Globulin Ratio 0.3 (0.9-2); Bilirubin,Total 0.6 mg/dl (0.2-1); Globulin 5.4 gm/dl (2.5-4.0)
[2020-12-28] MEDS: ATORVASTATIN 40 MG TAB PO SCH (08:39)
[2020-12-28] MEDS: ISOSORBIDE MONO EXTENDED REL 30 MG TABCR PO SCH (08:39)
[2020-12-28] MEDS: NEPHROCAPS PO SCH (08:39)
[2020-12-28] MEDS: CALCITRIOL 0.25 MCG CAPSULE PO SCH (08:39)
[2020-12-28] MEDS: CLOPIDOGREL BISULFATE 75 MG TAB PO SCH (08:40)
[2020-12-28] MEDS: COLLAGENASE OINT 30 GM TUBE TOP SCH (08:40)
[2020-12-28] MEDS: INSULIN ASPART 100 UNITS/ML 3 ML PEN SC SCH ×4 (08:41→21:34)
[2020-12-28] MEDS: FAMOTIDINE 40 MG TABLET PO SCH ×2 (08:41→21:34)
--- NOTE | 2020-12-28 11:00 | Nephrology Progress Note ---
Date of Service December 28, 2020 Assessment & Plan (1) ESRD on hemodialysis: Mr. Mata has end-stage renal disease, has been on hemodialysis Saturday, Saturday, Saturday. Admitted with change in mental status in the setting of urosepsis, currently on vancomycin and Zosyn empirically and oral vanco for C. Diff Overall his mental status seems to be close to his baseline. BP, volume status, acceptable. --dialysis today for 3.5 hours - continued Nephrocaps and renal diet --dose medications for GFR less than 10 --left arm nephrology precaution ( AVF) Will follow (2) Anemia: (3) Aphasia: (4) Acute UTI (urinary tract infection): Admission and Anticipated Discharge Date Admission Date: December 26, 2020 Subjective Miguel seems to be doing slightly better, opening his eyes and responding and seems to be close to his baseline. Blood pressure stable. Electrolyte acceptable. Review of Systems Review of Systems: Unobtainable due to mental health condition Physical Exam Constitutional: WD/WN, vitals as above + ill appearing; no acute distress Eyes: PERRL, conjunctivae normal, anicteric sclerae + anicteric sclerae Neck: normal visual inspection Respiratory: normal respiratory effort, lungs clear to auscultation no cough Auscultation: no crackles, no rales and no wheezes Cardiovascular: RRR, no murmur, no edema Extremities: + AV fistula Skin: no rashes, warm and dry Results & Data ([facility]) Vital Signs (Past 12 Hours) Vital Signs Temp Pulse Pulse Resp BP Pulse Ox 12/28/20 09:13 75 12/28/20 08:14 36.6 C 80 18 118/75 96 12/28/20 03:00 36.5 C 80 16 122/80 94 12/28/20 01:23 75 PG Care Time/CCT Total # of Minutes Spent Total Time Spent with Patient: Total time spent is greater than 50% in coordination of care (as documented) at patient's floor/unit and/or counseling patient: Coding Level of Care Code 93392 Subseq Hosp Care Lvl 2 Diagnoses ESRD on hemodialysis N18.6; Z99.2 Anemia D64.9 Aphasia R47.01 Acute UTI (urinary tract infection) N39.0
[2020-12-28] MEDS: DOCUSATE SODIUM 100 MG CAP PO SCH (11:52)
[2020-12-28] MEDS: cefTRIAXone SODIUM 1,000 MG in DEXTROSE 5% 50 ML IV SCH (17:15)
--- NOTE | 2020-12-28 17:22 | Hospitalist Progress Note ---
Date of Service December 28, 2020 Assessment & Plan (1) C. difficile colitis: Had diarrhea prior to admission which resolved, then more on admission. Initially with possible sepsis. - C. diff was positive on 12/26/2020 - Started vancomycin 125 mg PO QID on 12/26. Given this is a recurrence will do: * QID x 14 days * BID x 7 days * Daily x 7 days * Every other day x 14 days (2) Pleural effusion due to CHF (congestive heart failure): Layering pleural effusions. Unclear if associated with CHF vs. aspiration and pneumonia. - CT chest on 12/27 showed moderate pleural effusion. Reviewed with pulmonology who feel this is volume overload. - Continue volume management with HD (3) CAD (coronary artery disease): Prior CABG in 2007. Troponin up to 1.6, but stable this admission. EKGs with no acute changes. No chest pain. - Continue clopidogrel, Imdur, statin - Consulted cardiology given high troponin -> Medical management (4) Hypoxia: Hypoxia secondary to possible aspiration vs. compressive atelectasis. - Most recent hospitalization from 11/16/2020 - 12/17/2020 for similar presentation. (5) End stage renal failure on dialysis: Usual dialysis days are on Saturday/Saturday/Saturday. - Consult nephrology. - Continue usual dialysis. (6) Aspiration pneumonia: CT chest on 12/27 indicates no pneumonia. - Stop abx. (7) Pulmonary edema: As above (8) Type 2 diabetes mellitus: On no active treatment. A1c was 4.0% in 09/2020. Glucose upon admission was 174. 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 (12) Dysphagia: Monitor for aspiration. - [employer] evaluated -> Continue same recommendations as prior admission. * Pureed diet * NECTAR thick liquids * Patient fed all meals. * Mouth care * General aspiration precautions (13) Pressure ulcer of sacral region, stage 3: Consult wound care for dressing changes (14) Depression: Continue citalopram (15) GERD (gastroesophageal reflux disease): Continue famotidine (16) DVT prophylaxis: Admission and Anticipated Discharge Date Admission Date: December 26, 2020 Subjective No response today. No speaking today. Review of Systems Review of Systems: Unobtainable due to cognitive status Physical Exam Constitutional: WD/WN, vitals as above + cachectic and + physical limitations Eyes: EOM intact bilaterally; no conjunctival abnormality ENMT: external ear and nose normal, oropharynx normal Neck: trachea midline, no thyromegaly normal visual inspection Respiratory: normal respiratory effort, lungs clear to auscultation no respiratory distress Cardiovascular: RRR, no murmur, no edema Gastrointestinal (Abdomen): Inspection/Auscultation: abdomen normal to inspection; abdomen not distended Musculoskeletal: no cyanosis or clubbing, extremities motor strength 5/5 Skin: no rashes, warm and dry Neurologic: moves all extremities and awake Psychiatric: Orientation: alert; + not oriented to person and + uncooperative Results & Data Results & Data ([facility]) Vital Signs (Past 12 Hours) Vital Signs Temp Pulse Pulse Pulse Resp BP BP 12/28/20 17:08 93 H 121/67 12/28/20 16:45 99 H 134/64 12/28/20 16:20 92 H 87/63 L 12/28/20 16:05 95 H 103/72 12/28/20 16:00 81 12/28/20 15:44 88 110/67 12/28/20 15:22 77 101/60 12/28/20 15:00 36.7 C 81 12/28/20 11:50 36.7 C 78 16 114/73 12/28/20 09:13 75 12/28/20 08:14 36.6 C 80 18 118/75 Pulse Ox 12/28/20 17:08 12/28/20 16:45 12/28/20 16:20 12/28/20 16:05 12/28/20 16:00 12/28/20 15:44 12/28/20 15:22 12/28/20 15:00 12/28/20 11:50 100 12/28/20 09:13 12/28/20 08:14 96 PG Care Time/CCT Total # of Minutes Spent Total Time Spent with Patient: Total time spent is greater than 50% in coordination of care (as documented) at patient's floor/unit and/or counseling patient: Coding Level of Care Code 12567 Subseq Hosp Care Lvl 2 Diagnoses C. difficile colitis A04.72 Pleural effusion due to CHF (congestive heart failure) I50.9 CAD (coronary artery disease) I25.10 Coronary Disease-Associated Artery/Lesion type: [place] artery [place] vs. transplanted heart: [place] heart Associated angina: without angina Hypoxia R09.02 End stage renal failure on dialysis N18.6; Z99.2 Aspiration pneumonia J69.0 Pulmonary edema J81.0 Chronicity: acute Type 2 diabetes mellitus E11.9 Seizure disorder G40.909 Hypertension I10 Hypertension type: essential hypertension Aphasia R47.01 Dysphagia R13.10 Pressure ulcer of sacral region, stage 3 L89.153 Depression F32.9 Depression Type: unspecified GERD (gastroesophageal reflux disease) K21.9 Esophagitis presence: esophagitis presence not specified DVT prophylaxis Z29.9 (1) CAD (coronary artery disease) Coronary Disease-Associated Artery/Lesion type: [place] artery [place] vs. transplanted heart: [place] heart Associated angina: without angina Qualified Code(s): I25.10 - Atherosclerotic heart disease of [place] coronary artery without angina pectoris (2) Pulmonary edema Chronicity: acute Qualified Code(s): J81.0 - Acute pulmonary edema (3) Hypertension Hypertension type: essential hypertension Qualified Code(s): I10 - Essential (primary) hypertension (4) Depression Depression Type: unspecified Qualified Code(s): F32.9 - Major depressive disorder, single episode, unspecified (5) GERD (gastroesophageal reflux disease) Esophagitis presence: esophagitis presence not specified Qualified Code(s): K21.9 - Gastro-esophageal reflux disease without esophagitis
[2020-12-28] MEDS: CITALOPRAM 20 MG TAB PO SCH (21:33)
[2020-12-28] MEDS: amLODIPine BESYLATE 5 MG TAB PO SCH (21:34)
[2020-12-29] MEDS: VANCOMYCIN HCL 125 MG/2.5ML SOLN PO SCH ×3 (05:46→17:15)
[2020-12-29] MEDS: RASPBERRY SYRUP 5 ML UDP PO SCH ×3 (05:46→17:15)
--- NOTE | 2020-12-29 06:05 | Electrocardiogram Report ---
Test Reason : Blood Pressure : / mmHG Vent. Rate : 074 BPM Atrial Rate : 074 BPM P-R Int : 328 ms QRS Dur : 130 ms QT Int : 488 ms P-R-T Axes : 073 -85 031 degrees QTc Int : 541 ms Sinus rhythm with 1st degree A-V block Possible Left atrial enlargement Left axis deviation Inferior-posterior infarct (cited on or before 18-NOV-2020) Right bundle branch block Prolonged QT Abnormal ECG When compared with ECG of 27-DEC-2020 05:47, Premature ventricular complexes are no longer Present AK interval has increased Confirmed by Laurent Aguila ([id number]) on 12/29/2020 6:05:02 AM Referred By: REFERRED SELF Confirmed By:Laurent Aguila
[2020-12-29 07:39] LABS: Basophils # (auto) 0.01 K/uL (0-0.2); Basophils % (auto) 0.1 %; Eosinophils # (auto) 0.05 K/uL (0-0.5); Eosinophils % (auto) 0.6 %; Hematocrit (blood only) 33.4 % (42-52); Hemoglobin 10.4 g/dL (14.0-18.0); Immature Granulocytes # (auto) 0.02 K/uL (0.00-0.02); Immature Granulocytes % (auto) 0.2 %; Lymphocytes % (auto) 13.3 %; Mean Corpuscular Hemoglobin 29.2 pg (25-34); Mean Corpuscular Hgb Conc 31.1 g/dL (32-36); Mean Corpuscular Volume 93.8 fL (80-100); Mean Platelet Volume 9.6 fL (7.4-10.4); Monocytes # (auto) 1.13 K/uL (0.11-0.59); Monocytes % (auto) 12.5 %; Neutrophils # (auto) 6.61 K/uL (1.4-6.5); Neutrophils % (auto) 73.3 %; Platelet Count 395 K/uL (130-400); RDW Coefficient of Variation 17.7 % (11.5-14.5); RDW Standard Deviation 60.1 fL (36.4-46.3); Red Blood Count 3.56 M/uL (4.7-6.1); White Blood Count 9.02 K/uL (4.8-10.8)
[2020-12-29 08:21] LABS: Albumin Globulin Ratio 0.3 (0.9-2); Albumin Level 1.7 gm/dl (3.4-5.0); BUN Creatinine Ratio 10.9 (10-20); Bilirubin,Total 0.5 mg/dl (0.2-1); Calcium 8.2 mg/dl (8.5-10.1); Creatinine Clr Calc Pharmacy 25.3 ml/min; Est GFR (African American) 43.2; Est GFR (Non-African American) 37.3; Globulin 5.1 gm/dl (2.5-4.0); Potassium 2.9 mmol/L (3.5-5.1); Total Protein 6.8 gm/dl (6.4-8.2)
[2020-12-29] MEDS: ISOSORBIDE MONO EXTENDED REL 30 MG TABCR PO SCH (08:36)
[2020-12-29] MEDS: FAMOTIDINE 40 MG TABLET PO SCH ×2 (08:37→20:13)
[2020-12-29] MEDS: CLOPIDOGREL BISULFATE 75 MG TAB PO SCH (08:37)
[2020-12-29] MEDS: ATORVASTATIN 40 MG TAB PO SCH (08:37)
[2020-12-29] MEDS: levETIRAcetam 500 MG TAB PO SCH (08:37)
[2020-12-29] MEDS: INSULIN ASPART 100 UNITS/ML 3 ML PEN SC SCH ×4 (08:38→20:34)
[2020-12-29] MEDS: DOCUSATE SODIUM 100 MG CAP PO SCH (08:38)
[2020-12-29] MEDS: POTASSIUM CHLORIDE 20 MEQ/15 ML UDC PO SCH (10:22)
[2020-12-29] MEDS: NEPHROCAPS PO SCH (10:23)
--- NOTE | 2020-12-29 12:06 | Nephrology Progress Note ---
Date of Service December 29, 2020 Assessment & Plan (1) ESRD on hemodialysis: Mr. Mata has end-stage renal disease, has been on hemodialysis Saturday, Saturday, Saturday. Admitted with change in mental status in the setting of urosepsis, currently on vancomycin and Zosyn empirically and oral vanco for C. Diff Overall his mental status improved and at his baseline. BP, volume status, acceptable. Had dialysis yesterday. - continued Nephrocaps and renal diet --dose medications for GFR less than 10 --left arm nephrology precaution ( AVF) --dialysis tomorrow can be done as an outpatient if plan to discharge this afternoon Will follow He (2) Anemia: (3) Aphasia: (4) Acute UTI (urinary tract infection): Admission and Anticipated Discharge Date Admission Date: December 26, 2020 Subjective Miguel looks better today, awake, alert, seems to be at his baseline. Blood pressure acceptable. Potassium has been low. Review of Systems Review of Systems: Other Physical Exam Constitutional: WD/WN, vitals as above + ill appearing; no acute distress Eyes: PERRL, conjunctivae normal, anicteric sclerae + anicteric sclerae Neck: normal visual inspection Respiratory: normal respiratory effort, lungs clear to auscultation no cough Auscultation: no crackles, no rales and no wheezes Cardiovascular: RRR, no murmur, no edema Extremities: + AV fistula Skin: no rashes, warm and dry Neurologic: awake awake, alert Psychiatric: A+Ox3, euthymic affect Results & Data ([facility]) Vital Signs (Past 12 Hours) Vital Signs Temp Pulse Pulse Resp BP Pulse Ox 12/29/20 11:06 36.7 C 91 H 20 123/81 98 12/29/20 07:28 36.7 C 89 22 149/82 H 98 12/29/20 07:24 78 12/29/20 02:58 36.5 C 85 20 147/78 H 95 12/29/20 00:09 91 H PG Care Time/CCT Total # of Minutes Spent Total Time Spent with Patient: Total time spent is greater than 50% in coordin ation of care (as documented) at patient's floor/unit and/or counseling patient: Coding Level of Care Code 12298 Subseq Hosp Care Lvl 2 Diagnoses ESRD on hemodialysis N18.6; Z99.2 Anemia D64.9 Aphasia R47.01 Acute UTI (urinary tract infection) N39.0
[2020-12-29] MEDS: COLLAGENASE OINT 30 GM TUBE TOP SCH (13:29)
--- NOTE | 2020-12-29 14:42 | Hospitalist Progress Note ---
Date of Service December 29, 2020 Assessment & Plan (1) C. difficile colitis: Had diarrhea prior to admission which resolved, then more on admission. Initially with possible sepsis. - C. diff was positive on 12/26/2020 - Started vancomycin 125 mg PO QID on 12/26. Given this is a recurrence will do: * QID x 14 days * BID x 7 days * Daily x 7 days * Every other day x 14 days - Doing well today. Diarrhea is improving. (2) Pleural effusion due to CHF (congestive heart failure): Layering pleural effusions. Unclear if associated with CHF vs. aspiration and pneumonia. - CT chest on 12/27 showed moderate pleural effusion. Reviewed with pulmonology who feel this is volume overload. - Continue volume management with HD - No shortness of breath at present, so I do not think there is a case for tapping it just for symptomatic sake. (3) CAD (coronary artery disease): Prior CABG in 2007. Troponin up to 1.6, but stable this admission. EKGs with no acute changes. No chest pain. - Continue clopidogrel, Imdur, statin - Consulted cardiology given high troponin -> Medical management (4) Hypoxia: Hypoxia secondary to possible aspiration vs. compressive atelectasis. - Most recent hospitalization from 11/16/2020 - 12/17/2020 for similar presentation. (5) End stage renal failure on dialysis: Usual dialysis days are on Saturday/Saturday/Saturday. - Consult nephrology. - Continue usual dialysis. (6) Aspiration pneumonia: CT chest on 12/27 indicates no pneumonia. - Stopped abx. (7) Pulmonary edema: As above (8) Type 2 diabetes mellitus: On no active treatment. A1c was 4.0% in 09/2020. Glucose upon admission was 174. 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 (12) Dysphagia: Monitor for aspiration. 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 * Pureed diet * NECTAR thick liquids * Patient fed all meals. * Mouth care * General aspiration precautions (13) Pressure ulcer of sacral region, stage 3: Consult wound care for dressing changes (14) Depression: Continue citalopram (15) GERD (gastroesophageal reflux disease): Continue famotidine (16) DVT prophylaxis: Admission and Anticipated Discharge Date Admission Date: December 26, 2020 Subjective Denies any pain. Otherwise, cannot give ROS due to inability to answer questions. Review of Systems Review of Systems: Unobtainable due to cognitive status Physical Exam Constitutional: WD/WN, vitals as above + cachectic and + physical limitations Eyes: EOM intact bilaterally; no conjunctival abnormality ENMT: external ear and nose normal, oropharynx normal Neck: trachea midline, no thyromegaly normal visual inspection Respiratory: normal respiratory effort, lungs clear to auscultation no respiratory distress Cardiovascular: RRR, no murmur, no edema Gastrointestinal (Abdomen): Inspection/Auscultation: abdomen normal to inspection; abdomen not distended Musculoskeletal: no cyanosis or clubbing, extremities motor strength 5/5 Skin: no rashes, warm and dry Neurologic: moves all extremities and awake Psychiatric: Orientation: alert and cooperative; + not oriented to person Results & Data Results & Data ([facility]) Vital Signs (Past 12 Hours) Vital Signs Temp Pulse Pulse Resp BP Pulse Ox 12/29/20 11:06 36.7 C 91 H 20 123/81 98 12/29/20 07:28 36.7 C 89 22 149/82 H 98 12/29/20 07:24 78 12/29/20 02:58 36.5 C 85 20 147/78 H 95 PG Care Time/CCT Total # of Minutes Spent Total Time Spent with Patient: Total time spent is greater than 50% in coordination of care (as documented) at patient's floor/unit and/or counseling patient: Coding Level of Care Code 13506 Subseq Hosp Care Lvl 2 Diagnoses C. difficile colitis A04.72 Pleural effusion due to CHF (congestive heart failure) I50.9 CAD (coronary artery disease) I25.10 Coronary Disease-Associated Artery/Lesion type: [place] artery [place] vs. transplanted heart: [place] heart Associated angina: without angina Hypoxia R09.02 End stage renal failure on dialysis N18.6; Z99.2 Aspiration pneumonia J69.0 Pulmonary edema J81.0 Chronicity: acute Type 2 diabetes mellitus E11.9 Seizure disorder G40.909 Hypertension I10 Hypertension type: essential hypertension Aphasia R47.01 Dysphagia R13.10 Pressure ulcer of sacral region, stage 3 L89.153 Depression F32.9 Depression Type: unspecified GERD (gastroesophageal reflux disease) K21.9 Esophagitis presence: esophagitis presence not specified DVT prophylaxis Z29.9 (1) CAD (coronary artery disease) Coronary Disease-Associated Artery/Lesion type: [place] artery [place] vs. transplanted heart: [place] heart Associated angina: without angina Qualified Code(s): I25.10 - Atherosclerotic heart disease of [place] coronary artery without angina pectoris (2) Pulmonary edema Chronicity: acute Qualified Code(s): J81.0 - Acute pulmonary edema (3) Hypertension Hypertension type: essential hypertension Qualified Code(s): I10 - Essential (primary) hypertension (4) Depression Depression Type: unspecified Qualified Code(s): F32.9 - Major depressive disorder, single episode, unspecified (5) GERD (gastroesophageal reflux disease) Esophagitis presence: esophagitis presence not specified Qualified Code(s): K21.9 - Gastro-esophageal reflux disease without esophagitis
[2020-12-29] MEDS: cefTRIAXone SODIUM 1,000 MG in DEXTROSE 5% 50 ML IV SCH (17:14)
[2020-12-29] MEDS: amLODIPine BESYLATE 5 MG TAB PO SCH (20:13)
[2020-12-29] MEDS: CITALOPRAM 20 MG TAB PO SCH (20:13)
[2020-12-30] MEDS: VANCOMYCIN HCL 125 MG/2.5ML SOLN PO SCH ×4 (00:19→18:45)
[2020-12-30] MEDS: RASPBERRY SYRUP 5 ML UDP PO SCH ×4 (00:19→18:46)
[2020-12-30 06:55] LABS: Hematocrit (blood only) 33.8 % (42-52); Hemoglobin 10.6 g/dL (14.0-18.0); Mean Corpuscular Hemoglobin 29.6 pg (25-34); Mean Corpuscular Hgb Conc 31.4 g/dL (32-36); Mean Corpuscular Volume 94.4 fL (80-100); Mean Platelet Volume 9.9 fL (7.4-10.4); Platelet Count 395 K/uL (130-400); RDW Coefficient of Variation 17.7 % (11.5-14.5); RDW Standard Deviation 60.6 fL (36.4-46.3); Red Blood Count 3.58 M/uL (4.7-6.1); White Blood Count 9.81 K/uL (4.8-10.8)
[2020-12-30 07:36] LABS: BUN Creatinine Ratio 15.5 (10-20); Calcium 8.2 mg/dl (8.5-10.1); Creatinine Clr Calc Pharmacy 20.7 ml/min; Est GFR (African American) 27.7; Est GFR (Non-African American) 23.9; Potassium 3.1 mmol/L (3.5-5.1)
[2020-12-30] MEDS ORDERED: MICONAZOLE NITRATE POWDER 43 GM EXT PRN (08:18)
[2020-12-30] MEDS: FAMOTIDINE 40 MG TABLET PO SCH ×2 (08:56→21:15)
[2020-12-30] MEDS: CALCITRIOL 0.25 MCG CAPSULE PO SCH (08:56)
[2020-12-30] MEDS: DOCUSATE SODIUM 100 MG CAP PO SCH (08:56)
[2020-12-30] MEDS: ATORVASTATIN 40 MG TAB PO SCH (08:57)
[2020-12-30] MEDS: ISOSORBIDE MONO EXTENDED REL 30 MG TABCR PO SCH (08:57)
[2020-12-30] MEDS: NEPHROCAPS PO SCH (08:57)
[2020-12-30] MEDS: POTASSIUM CHLORIDE 20 MEQ/15 ML UDC PO SCH (08:57)
[2020-12-30] MEDS: COLLAGENASE OINT 30 GM TUBE TOP SCH (08:58)
[2020-12-30] MEDS: CLOPIDOGREL BISULFATE 75 MG TAB PO SCH (08:58)
[2020-12-30] MEDS: INSULIN ASPART 100 UNITS/ML 3 ML PEN SC SCH ×4 (09:46→21:00)
--- NOTE | 2020-12-30 10:57 | Nephrology Progress Note ---
Date of Service December 30, 2020 Assessment & Plan (1) ESRD on hemodialysis: Mr. Mata has end-stage renal disease, has been on hemodialysis Saturday, Saturday, Saturday. Admitted with change in mental status in the setting of urosepsis, currently on Rocephin and oral vanco for C. Diff Overall his mental status improved and at his baseline. BP, volume status, acceptable. --due for dialysis today as his regular schedule - continued Nephrocaps and renal diet --dose medications for GFR less than 10 --left arm nephrology precaution ( AVF) Will follow He (2) Anemia: (3) Aphasia: (4) Acute UTI (urinary tract infection): Admission and Anticipated Discharge Date Admission Date: December 26, 2020 Subjective Miguel was awake but lethargic this morning, not in any distress, looks pretty close to his baseline. Review of Systems Review of Systems: Unobtainable due to mental health condition Physical Exam Constitutional: WD/WN, vitals as above + ill appearing and + lethargic; no acute distress Respiratory: no cough Auscultation: + diminished lung sounds; no crackles, no rales and no wheezes Cardiovascular: RRR, no murmur, no edema Extremities: + AV fistula Skin: no rashes, warm and dry Neurologic: awake Aphasic at baseline Results & Data ([facility]) Vital Signs (Past 12 Hours) Vital Signs Temp Pulse Pulse Pulse Resp BP Pulse Ox 12/30/20 07:32 36.9 C 92 H 20 135/83 96 12/30/20 07:30 36.9 C 85 76 20 143/87 H 96 12/30/20 03:00 36.9 C 91 H 20 158/80 H 96 12/30/20 01:39 94 H 12/29/20 23:26 37.3 C 91 H 20 158/78 H 96 PG Care Time/CCT Total # of Minutes Spent Total Time Spent with Patient: Total time spent is greater than 50% in coordination of care (as documented) at patient's floor/unit and/or counseling patient: Coding Level of Care Code 95360 Subseq Hosp Care Lvl 3 Diagnoses ESRD on hemodialysis N18.6; Z99.2 Anemia D64.9 Aphasia R47.01 Acute UTI (urinary tract infection) N39.0
--- NOTE | 2020-12-30 13:04 | Hospitalist Progress Note ---
Date of Service December 30, 2020 Assessment & Plan (1) C. difficile colitis: Had diarrhea prior to admission which resolved, then more on admission. Initially with possible sepsis. - C. diff was positive on 12/26/2020 - Started vancomycin 125 mg PO QID on 12/26. Given this is a recurrence will do: * QID x 14 days * BID x 7 days * Daily x 7 days * Every other day x 14 days - Doing well today. Diarrhea is improving per RN. Bottom is still sore though. (2) End stage renal failure on dialysis: Usual dialysis days are on Saturday/Saturday/Saturday. - Consult nephrology. - Continue usual dialysis today. Hopefully discharge tomorrow. (3) Pleural effusion due to CHF (congestive heart failure): Layering pleural effusions. Unclear if associated with CHF vs. aspiration and pneumonia. - CT chest on 12/27 showed moderate pleural effusion. Reviewed with pulmonology who feel this is volume overload. - Continue volume management with HD - No shortness of breath at present, so I do not think there is a case for tapping it just for symptomatic sake. (4) CAD (coronary artery disease): Prior CABG in 2007. Troponin up to 1.6, but stable this admission. EKGs with no acute changes. No chest pain. - Continue clopidogrel, Imdur, statin - Consulted cardiology given high troponin -> Medical management (5) Hypoxia: Hypoxia secondary to possible aspiration vs. compressive atelectasis. - Most recent hospitalization from 11/16/2020 - 12/17/2020 for similar presentation. (6) Aspiration pneumonia: CT chest on 12/27 indicates no pneumonia. - Stopped abx. (7) Pulmonary edema: As above (8) Type 2 diabetes mellitus: On no active treatment. A1c was 4.0% in 09/2020. Glucose upon admission was 174. - Placed on Accu-Cheks with NovoLog coverage. - Only need 1-2 units most meals. (9) Seizure disorder: - Continue Keppra same dosing as outpatient (10) Hypertension: See above (11) Aphasia: Secondary to previous CVA, stable. (12) Dysphagia: Monitor for aspiration. 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 * Pureed diet * NECTAR thick liquids * Patient fed all meals. * Mouth care * General aspiration precautions (13) Pressure ulcer of sacral region, stage 3: Consulted wound care for dressing changes. - Stable today. (14) Depression: Continue citalopram (15) GERD (gastroesophageal reflux disease): Continue famotidine (16) DVT prophylaxis: SCDs - Low DVT risk per admission calculator Admission and Anticipated Discharge Date Admission Date: December 26, 2020 Subjective Sleeping on arrival, but easily awakens. Says "Yes" to questions, but doesn't change responses even if asked a question with a clear "No" answer. Review of Systems Review of Systems: Unobtainable due to cognitive status Physical Exam Constitutional: WD/WN, vitals as above + cachectic and + physical limitations Eyes: EOM intact bilaterally; no conjunctival abnormality ENMT: external ear and nose normal, oropharynx normal Neck: trachea midline, no thyromegaly normal visual inspection Respiratory: normal respiratory effort, lungs clear to auscultation no respiratory distress Cardiovascular: RRR, no murmur, no edema Gastrointestinal (Abdomen): Inspection/Auscultation: abdomen normal to inspection; abdomen not distended Musculoskeletal: no cyanosis or clubbing, extremities motor strength 5/5 Skin: no rashes, warm and dry Neurologic: moves all extremities and awake Psychiatric: Orientation: alert and cooperative; + not oriented to person Results & Data Results & Data ([facility] [place]) Vital Signs (Past 12 Hours) Vital Signs Temp Pulse Pulse Pulse Resp BP Pulse Ox 12/30/20 11:14 36.7 C 85 20 122/74 96 12/30/20 07:32 36.9 C 92 H 20 135/83 96 12/30/20 07:30 36.9 C 85 76 20 143/87 H 96 12/30/20 03:00 36.9 C 91 H 20 158/80 H 96 12/30/20 01:39 94 H PG Care Time/CCT Total # of Minutes Spent Total Time Spent with Patient: Total time spent is greater than 50% in coordination of care (as documented) at patient's floor/unit and/or counseling patient: Coding Level of Care Code 49308 Subseq Hosp Care Lvl 2 Diagnoses C. difficile colitis A04.72 End stage renal failure on dialysis N18.6; Z99.2 Pleural effusion due to CHF (congestive heart failure) I50.9 CAD (coronary artery disease) I25.10 Coronary Disease-Associated Artery/Lesion type: [place] artery [place] vs. transplanted heart: [place] heart Associated angina: without angina Hypoxia R09.02 Aspiration pneumonia J69.0 Pulmonary edema J81.0 Chronicity: acute Type 2 diabetes mellitus E11.9 Seizure disorder G40.909 Hypertension I10 Hypertension type: essential hypertension Aphasia R47.01 Dysphagia R13.10 Pressure ulcer of sacral region, stage 3 L89.153 Depression F32.9 Depression Type: unspecified GERD (gastroesophageal reflux disease) K21.9 Esophagitis presence: esophagitis presence not specified DVT prophylaxis Z29.9 (1) CAD (coronary artery disease) Coronary Disease-Associated Artery/Lesion type: [place] artery [place] vs. transplanted heart: [place] heart Associated angina: without angina Qualified Code(s): I25.10 - Atherosclerotic heart disease of [place] coronary artery without angina pectoris (2) Pulmonary edema Chronicity: acute Qualified Code(s): J81.0 - Acute pulmonary edema (3) Hypertension Hypertension type: essential hypertension Qualified Code(s): I10 - Essential (primary) hypertension (4) Depression Depression Type: unspecified Qualified Code(s): F32.9 - Major depressive disorder, single episode, unspecified (5) GERD (gastroesophageal reflux disease) Esophagitis presence: esophagitis presence not specified Qualified Code(s): K21.9 - Gastro-esophageal reflux disease without esophagitis
[2020-12-30] MEDS: CITALOPRAM 20 MG TAB PO SCH (21:13)
[2020-12-30] MEDS: amLODIPine BESYLATE 5 MG TAB PO SCH (21:17)
[2020-12-31] MEDS: VANCOMYCIN HCL 125 MG/2.5ML SOLN PO SCH ×3 (00:03→12:19)
[2020-12-31] MEDS: RASPBERRY SYRUP 5 ML UDP PO SCH ×3 (00:03→12:19)
--- NOTE | 2020-12-31 06:18 | Electrocardiogram Report ---
Test Reason : Blood Pressure : / mmHG Vent. Rate : 089 BPM Atrial Rate : 089 BPM P-R Int : 308 ms QRS Dur : 118 ms QT Int : 494 ms P-R-T Axes : 089 -87 054 degrees QTc Int : 601 ms Sinus rhythm with 1st degree A-V block Left axis deviation Right bundle branch block Inferior-posterior infarct (cited on or before 18-NOV-2020) Abnormal ECG When compared with ECG of 28-DEC-2020 05:42, No significant change Confirmed by Laurent Aguila ([id number]) on 12/31/2020 6:18:19 AM Referred By: REFERRED SELF Confirmed By:Laurent Aguila
[2020-12-31] MEDS: COLLAGENASE OINT 30 GM TUBE TOP SCH (08:21)
[2020-12-31] MEDS: FAMOTIDINE 40 MG TABLET PO SCH (08:21)
[2020-12-31] MEDS: POTASSIUM CHLORIDE 20 MEQ/15 ML UDC PO SCH (08:21)
[2020-12-31] MEDS: NEPHROCAPS PO SCH (08:21)
[2020-12-31] MEDS: ISOSORBIDE MONO EXTENDED REL 30 MG TABCR PO SCH (08:22)
[2020-12-31] MEDS: CLOPIDOGREL BISULFATE 75 MG TAB PO SCH (08:22)
[2020-12-31] MEDS: levETIRAcetam 500 MG TAB PO SCH (08:22)
[2020-12-31] MEDS: DOCUSATE SODIUM 100 MG CAP PO SCH (08:22)
[2020-12-31] MEDS: ATORVASTATIN 40 MG TAB PO SCH (08:23)
[2020-12-31] MEDS: INSULIN ASPART 100 UNITS/ML 3 ML PEN SC SCH ×2 (08:35→12:19)
[2020-12-31 08:48] LABS: Hematocrit (blood only) 33.3 % (42-52); Hemoglobin 10.3 g/dL (14.0-18.0); Mean Corpuscular Hemoglobin 29.1 pg (25-34); Mean Corpuscular Hgb Conc 30.9 g/dL (32-36); Mean Corpuscular Volume 94.1 fL (80-100); Mean Platelet Volume 9.8 fL (7.4-10.4); Platelet Count 409 K/uL (130-400); RDW Coefficient of Variation 17.8 % (11.5-14.5); RDW Standard Deviation 61.5 fL (36.4-46.3); Red Blood Count 3.54 M/uL (4.7-6.1); White Blood Count 13.61 K/uL (4.8-10.8)
[2020-12-31 09:02] LABS: BUN Creatinine Ratio 11.2 (10-20); Calcium 7.9 mg/dl (8.5-10.1); Creatinine Clr Calc Pharmacy 25.4 ml/min; Est GFR (Non-African American) 39.7; Magnesium 2.1 mg/dl (1.8-2.4); Potassium 3.1 mmol/L (3.5-5.1)
[2020-12-31] MEDS ORDERED: POTASSIUM CHLORIDE CRTAB 20 MEQ TABCR PO STA (09:08)
--- NOTE | 2020-12-31 11:48 | Nephrology Progress Note ---
Date of Service December 31, 2020 Assessment & Plan (1) ESRD on hemodialysis: Outpatient HD MWF at [facility]. BP and volume status acceptable. Electrolytes controlled. Next anticipated HD Saturday. Medications are appropriately dosed for kidney dysfunction. Nephrocaps. No renal dietary restrictions have been required. (2) Anemia: Chronic, stable. JENSEN therapy with HD. (3) C. difficile colitis: Remains on PO vanco taper. (4) Positive blood culture: Coag negative staph x 2. Cultures resent with cx from HD catheter today. Admission and Anticipated Discharge Date Admission Date: December 26, 2020 Subjective No acute events overnight. Miguel completed HD yesterday without complications. He was sleeping when I entered the room. When awake, he appeared to be at his baseline in terms of mental status. He denied any shortness of breath. No fevers or chills. Cultures from HD catheter drawn this AM. Review of Systems Review of Systems: All systems reviewed & are unremarkable except as noted in HPI & below Limited due to mental status and aphasia Physical Exam Constitutional: well developed, + thin and + frail appearing; no acute distress Eyes: + anicteric sclerae; no corneal abnormality ENMT: Mouth: no oral mucosal abnormality and oral mucous membranes not dry Neck: normal visual inspection and trachea midline Respiratory: normal respiratory effort Auscultation: lungs clear to auscultation bilaterally Cardiovascular: Rate/Rhythm: regular rate Heart Sounds: normal S1 and normal S2 Vessels: no JVD Extremities: + AV fistula; no edema TDC Gastrointestinal (Abdomen): Percussion/Palpation: abdomen soft; abdomen nontender Musculoskeletal: Extremities: no cyanosis and no clubbing Skin: + turgor decreased; no rashes Neurologic: Motor/Sensory: no tremor and no asterixis Psychiatric: Orientation: alert expressive aphasia, R sided weakness Results & Data ([facility]) Vital Signs (Past 12 Hours) Vital Signs Temp Pulse Pulse Pulse Resp BP Pulse Ox 12/31/20 11:10 36.8 C 85 89 16 145/76 H 98 12/31/20 11:05 36.8 C 85 89 16 145/76 H 98 12/31/20 07:34 36.8 C 89 16 145/76 H 98 12/31/20 06:39 88 12/31/20 03:58 36.8 C 85 16 133/79 98 12/31/20 00:06 37.0 C 68 22 138/80 98 Laboratory Results Laboratory Results - last 24 hr 12/30/20 12/30/20 12/31/20 16:38 20:22 07:25 WBC RBC Hgb Hct MCV MCH MCHC RDW Std Deviation RDW Coeff of Shayy Plt Count MPV Sodium Potassium Chloride Carbon Dioxide Anion Gap BUN Creatinine Est Cr Clr Drug Dosing Est GFR ( Amer) Est GFR (Non-Af Amer) BUN/Creatinine Ratio Glucose POC Glucose 77 124 H 103 H Calcium Magnesium 12/31/20 12/31/20 12/31/20 08:08 08:08 11:08 WBC 13.61 H RBC 3.54 L Hgb 10.3 L Hct 33.3 L MCV 94.1 MCH 29.1 MCHC 30.9 L RDW Std Deviation 61.5 H RDW Coeff of Shayy 17.8 H Plt Count 409 H MPV 9.8 Sodium 140 Potassium 3.1 L Chloride 105 Carbon Dioxide 31 Anion Gap 4.0 BUN 19 H D Creatinine 1.66 H D Est Cr Clr Drug Dosing 25.4 Est GFR ( Amer) 46.0 Est GFR (Non-Af Amer) 39.7 BUN/Creatinine Ratio 11.2 Glucose 116 H POC Glucose 124 H Calcium 7.9 L Magnesium 2.1 PG Care Time/CCT Total # of Minutes Spent Total Time Spent with Patient: Total time spent is greater than 50% in coordination of care (as documented) at patient's floor/unit and/or counseling patient: Coding Level of Care Code 00751 Subseq Hosp Care Lvl 3 Diagnoses ESRD on hemodialysis N18.6; Z99.2 Anemia D64.9 C. difficile colitis A04.72 Positive blood culture R78.81
--- NOTE | 2021-01-04 13:39 | Discharge Summary ---
Date of Service December 31, 2020 Admission HPI Per Admitting Provider The patient is a 75-year-old male with a past medical history including ESRD on HD, CAD, seizure disorder, hypertension, stroke, dementia, depression, GERD and acute respiratory failure with hypoxia. He presents to the emergency department similarly to last [facility] admission from 12/13-12/17/2020 with hypoxia, pneumonia, CHF with layering pleural effusions. He is unable to contribute significantly to his HPI or ROS due to dementia associated previous CVA. Principal Diagnosis C. diff colitis Discharge Exam Constitutional: WD/WN, vitals as above + cachectic and + physical limitations Eyes: EOM intact bilaterally; no conjunctival abnormality ENMT: external ear and nose normal, oropharynx normal Neck: trachea midline, no thyromegaly normal visual inspection Respiratory: normal respiratory effort, lungs clear to auscultation no respiratory distress Cardiovascular: RRR, no murmur, no edema Gastrointestinal (Abdomen): Inspection/Auscultation: abdomen normal to inspection; abdomen not distended Musculoskeletal: no cyanosis or clubbing, extremities motor strength 5/5 Skin: no rashes, warm and dry Neurologic: moves all extremities and awake Psychiatric: Orientation: alert and cooperative; + not oriented to person Discharge Data Allergies Allergy/AdvReac Type Severity Reaction Status Date / Time adhesive Allergy Unknown BLISTERING Verified 12/26/20 02:58 OF SKIN latex Allergy Unknown Rash Verified 12/26/20 02:58 Consultations 12/26/20 04:54 ED Decision to Admit Stat 12/26/20 07:18 Consult Nephrology Routine 12/27/20 13:14 Consult Cardiology Routine Ordered Studies 12/27/20 13:13 CT chest diagnostic wo con Routine Hospital Course (1) C. difficile colitis: Had diarrhea prior to admission which resolved, then more on admission. Initially with possible sepsis. - C. diff was positive on 12/26/2020 - Started vancomycin 125 mg PO QID on 12/26. Given this is a recurrence will do: * QID x 14 days * BID x 7 days * Daily x 7 days * Every other day x 14 days - Doing well today. Diarrhea is improving per RN. Will discharge today. Updated and gave her instructions. (2) End stage renal failure on dialysis: Usual dialysis days are on Saturday/Saturday/Saturday. - Consult nephrology. - Continue usual dialysis today. Hopefully discharge tomorrow. (3) Pleural effusion due to CHF (congestive heart failure): Layering pleural effusions. Unclear if associated with CHF vs. aspiration and pneumonia. - CT chest on 12/27 showed moderate pleural effusion. Reviewed with pulmonology who feel this is volume overload. - Continue volume management with HD - No shortness of breath at present, so I do not think there is a case for tapping it just for symptomatic sake. (4) CAD (coronary artery disease): Prior CABG in 2007. Troponin up to 1.6, but stable this admission. EKGs with no acute changes. No chest pain. - Continue clopidogrel, Imdur, statin - Consulted cardiology given high troponin -> Medical management (5) Hypoxia: Hypoxia secondary to possible aspiration vs. compressive atelectasis. - Most recent hospitalization from 11/16/2020 - 12/17/2020 for similar presentation. (6) Aspiration pneumonia: CT chest on 12/27 indicates no pneumonia. - Stopped abx. (7) Pulmonary edema: As above (8) Type 2 diabetes mellitus: On no active treatment. A1c was 4.0% in 09/2020. Glucose upon admission was 174. - Placed on Accu-Cheks with NovoLog coverage. - Only need 1-2 units most meals. (9) Seizure disorder: - Continue Keppra same dosing as outpatient (10) Hypertension: See above (11) Aphasia: Secondary to previous CVA, stable. (12) Dysphagia: Monitor for aspiration. 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 * Pureed diet * NECTAR thick liquids * Patient fed all meals. * Mouth care * General aspiration precautions (13) Pressure ulcer of sacral region, stage 3: Consulted wound care for dressing changes. - Stable today. (14) Depression: Continue citalopram (15) GERD (gastroesophageal reflux disease): Continue famotidine (16) DVT prophylaxis: SCDs - Low DVT risk per admission calculator Total Time Total Time Spent Total Time Spent (In Minutes): 32 Total Time Includes: Examination of the Patient, Discharge Planning and Medication Reconciliation Discharge Plan Discharge Items Patient Disposition: Home - Home Health Services Reason For Visit: UTI, CHF, B/L PL EFF Discharge Diagnosis: UTI, CHF, B/L pleural effusion Activity: Resume your previous activity Non-emergency contact: Primary Care Provider Call non-emergency contact if: you have any medication questions Follow-up/Referrals: Erick Zapata III, MD [Primary Care Provider] - 01/04/21 10:00 am (A screening unit registered nurse will be in contact with you. They will schedule a follow up appt for you with your PCP. If you are unable to keep the appt made for you, you may reschedule with their office.) Diet: Regular Diet Texture: Pureed (blended smooth) Liquid Consistency: Alianza thick Diet Comment: pureed optional Addtl Attending Provider Instructions: Started vancomycin 125 mg PO QID on 12/26. Given this is a recurrence will do: QID x 14 days (9 MORE DAYS) BID x 7 days Daily x 7 days Every other day x 14 days Whether you are a professional caregiver or simply someone who is caring for a family member showing C-diff signs and symptoms, you need to follow these simple instructions: Wash your hands with soap and water after providing toileting care, changing diapers, etc. If possible, wear gloves when caring for the C-diff patient Be aware of the list of antibiotics that make an individual more susceptible to C-diff: (generic names: clindamycin, cephalosporins, monobactams, carbapenems, and floroquinolones) If you see signs and symptoms in a loved one/client, be sure to contact primary care provider for follow-up and testing Dedicate a separate bathroom for the C-diff patient Regularly clean bathrooms and the patients living areas with bleach for the duration of illness The C-diff bacteria are found in the feces. Caregivers or family members can become infected by touching contaminated surfaces and then touching their mouth or mucous membranes. Any surface, device, or materialsuch as toilets or rectal thermometers that becomes contaminated with feces can become a reservoir for the C-diff spores. A thorough cleaning protocol can prevent the spread of C-diff infections to other family members. Clean bathrooms and the patients living areas with bleach on a regular schedule. Make sure everyone in the household regularly washes their hands with soap after using the restroom, bathing the patient, helping them to or from the bathroom or changing a diaper. Pending Studies at Discharge: No Stand-Alone Forms: My [facility] [employer], Smoking Cessation Medications and DC Order Prescriptions: New vancomycin 125 mg capsule 125 mg PO Q6H Qty: 57 RF: 0 potassium chloride 20 mEq/15 mL liquid 20 meq PO DAILY 7 Days Qty: 105 RF: 0 Continued citalopram 10 mg tablet 10 mg PO HS Qty: 30 RF: 5 clopidogrel [Plavix] 75 mg tablet 75 mg PO DAILY Qty: 30 RF: 5 Santyl 250 unit/gram ointment 1 applic TOPICAL UD Qty: 30 RF: 3 famotidine 40 mg tablet 40 mg PO BID Qty: 180 RF: 3 atorvastatin [Lipitor] 80 mg tablet 80 mg PO DAILY Qty: 30 RF: 11 levetiracetam [Keppra] 500 mg tablet 500 mg PO SUTUTHSA 30 Days Qty: 18 RF: 0 miscellaneous medical supply Misc 1 ea miscellaneous ONCE Qty: 1 RF: 0 docusate sodium [Stool Softener] 100 mg capsule 100 mg PO DAILY RF: 0 Renal Caps 1 mg Capsule 1 cap PO QAM Qty: 30 RF: 0 triamcinolone acetonide 0.1 % cream 1 applic topical BID PRN (Reason: Skin Irritation) RF: 0 Triad Wound Dressing Paste 1 applic TOPICAL DAILY RF: 0 calcitriol [Rocaltrol] 0.25 mcg capsule 0.25 mcg PO MOWEFR RF: 0 Discontinued amlodipine 2.5 mg tablet 2.5 mg PO HS Qty: 30 RF: 5 isosorbide mononitrate 30 mg tablet extended release 24 hr 30 mg PO DAILY Qty: 30 RF: 5 Discharge Orders: Discharge Order (Routine); Ordered 12/31/20 Ordered By: Luis Enrique Paniagua/Other Patient Handouts: Managing Type 2 Diabetes, Wound Care, Managing Diabetes: The A1C Test Admission Data Admit Date/Time: 12/26/20 05:43 Attending Provider: Luis Enrique Pacheco Admit Provider: Trip Daniels Primary Care Provider: Erick Zapata III Other Providers: Geovany De La Cruz ; [facility] ; Trip Daniels ; Tabitha Muniz ; Laurent Aguila Other Interventions: Discharge Summary Assessment (RN) Last Done: 12/31/20 11:10 Coding Level of Care Code D/C Day Management >30 mins Diagnoses C. difficile colitis A04.72 End stage renal failure on dialysis N18.6; Z99.2 Pleural effusion due to CHF (congestive heart failure) I50.9 CAD (coronary artery disease) I25.10 Coronary Disease-Associated Artery/Lesion type: [place] artery [place] vs. transplanted heart: [place] heart Associated angina: without angina Hypoxia R09.02 Aspiration pneumonia J69.0 Pulmonary edema J81.0 Chronicity: acute Type 2 diabetes mellitus E11.9 Seizure disorder G40.909 Hypertension I10 Hypertension type: essential hypertension Aphasia R47.01 Dysphagia R13.10 Pressure ulcer of sacral region, stage 3 L89.153 Depression F32.9 Depression Type: unspecified GERD (gastroesophageal reflux disease) K21.9 Esophagitis presence: esophagitis presence not specified DVT prophylaxis Z29.9
--- NOTE | 2021-01-10 10:02 | Coding Query ---
CODING QUERY To promote full compliance with coding requirements relating to patient care, provider participation is requested in all cases of dba manager uncertainty. Please assist us with the question(s) below: Coding Question(s): Possible Sepsis is documented in record and on Discharge Summary. Please specify below, in your clinical opinion regarding the most likely source of the possible Sepsis. ( ) infected tunnelled Hemodialysis line (mentioned on PN 12/30) (x ) C-Diff Colitis ( ) UTI ( ) Aspiration Pneumonia ( ) Other: Please Specify ( ) Unknown likely source Physician's Response(s): Thank you Tamara Christopher Principal Diagnosis: "that condition established after study, to be chiefly responsible for occasioning the admission of the patient to the hospital for care." Co-Existing Principal Diagnosis: "when two or more diagnoses equally meet the criteria for principal diagnosis as determined by the circumstances of admission, diagnostic work up, and/or therapy provided, and the Alphabetic Index, Tabular List, or another coding guideline does not provide sequencing direction, any one of the diagnoses may be sequenced first." "When the physician has documented what appears to be a current diagnosis in the body of the record, but has not included the diagnosis in the final diagnostic statement, the physician should be asked whether the diagnosis should be added." (Source [facility]oding [facility] 2 QTR90. p3-4) MATEUSZ
--- NOTE | 2021-01-10 10:06 | Coding Query ---
To promote full compliance with coding requirements relating to patient care, provider participation is requested in all cases of sharepoint net developer uncertainty. Please assist us with the question(s) below: Coding Question(s): The diagnosis(es) below was documented in the record, then subsequently fell off all further documentation. Please indicate if it is still a possible diagnosis or ruled out. Physician's Response(s): NSTEMI (documented on Cardiology Consultation on 12/27) ( ) Diagnosed and POA ( ) Diagnosed and not POA ( x ) Ruled out ( ) Other (please specify) UTI (documented on ER H&P) ( ) Diagnosed and POA ( ) Diagnosed and not POA ( x ) Ruled out ( ) Other (please specify) MTDD
--- NOTE | 2021-01-10 10:09 | Coding Query ---
CODING QUERY To promote full compliance with coding requirements relating to patient care, provider participation is requested in all cases of cleat maker uncertainty. Please assist us with the question(s) below: Coding Question(s): Documentation of Aspiration Pneumonia, as shown on Discharge Summary, shows, "Aspiration pneumonia: CT chest on 12/27 indicates no pneumonia. - Stopped abx.". It is not clear if the Aspiration Pneumonia was still possible initially or if it was ruled out. Please specify below, in your clinical opinion. ( ) Possible Aspiration Pneumonia was treated (x ) Aspiration Pneumonia was Ruled-Out ( ) Other: Please Specify Physician's Response(s): Thank you Tamara Christopher Principal Diagnosis: "that condition established after study, to be chiefly responsible for occasioning the admission of the patient to the hospital for care." Co-Existing Principal Diagnosis: "when two or more diagnoses equally meet the criteria for principal diagnosis as determined by the circumstances of admission, diagnostic work up, and/or therapy provided, and the Alphabetic Index, Tabular List, or another coding guideline does not provide sequencing direction, any one of the diagnoses may be sequenced first." "When the physician has documented what appears to be a current diagnosis in the body of the record, but has not included the diagnosis in the final diagnostic statement, the physician should be asked whether the diagnosis should be added." (Source Coding [facility] 2 QTR90. p3-4) MATEUSZ
--- NOTE | 2021-01-10 10:10 | Coding Query ---
CONGESTIVE HEART FAILURE To Promote full compliance with coding requirements relating to patient care, physician participation is requested in all cases of broadcast chief engineer uncertainty. Please assist us with the following questions. A diagnosis of Congestive Heart Failure is documented in the patient's medical record. To accurately code this diagnosis and to compare patient severity, we ask that you specify the type of heart failure by placing an X within the parenthesis (x). SYSTOLIC HEART FAILURE ( ) Acute ( ) Chronic (x ) Acute on Chronic ( ) Rheumatic ( ) Unknown DIASTOLIC HEART FAILURE ( ) Acute ( ) Chronic ( ) Acute on Chronic ( ) Rheumatic ( ) Unknown COMBINED SYSTOLIC AND DIASTOLIC HEART FAILURE ( ) Acute ( ) Chronic ( ) Acute on Chronic ( ) Rheumatic ( ) Unknown Thank you Tamara CHILD
== END 2020-12-31 15:00 | disposition home health service (06) | DRG 871 ==
LOC: ED 02:49 → SUATTDRO 05:43 → 2S 05:43 → 2W 15:03

== ENCOUNTER 2021-01-17 14:50 | Inpatient (IN) ==
--- NOTE | 2021-01-17 16:20 | XRay Report ---
XR chest 1V portable CLINICAL HISTORY: Atypical chest pain COMPARISON STUDY: 12/26/2020 FINDINGS: The heart is mildly enlarged. There are postsurgical changes of a midline sternotomy. There is radiographic evidence of congestive failure/fluid overload. There are small bilateral pleural eff usions. There is a right-sided double lumen central venous catheter.[ IMPRESSION: 1. Radiographic evidence of congestive failure with mild interstitial edema. No pleural effusions. ACT 112: Negative or not required by law. Electronically signed by: Nick Vegas M.D. 01/17/2021 4:18 PM
[2021-01-17 16:21] LABS: Basophils # (auto) 0.01 K/uL (0-0.2); Basophils % (auto) 0.1 %; Eosinophils # (auto) 0.05 K/uL (0-0.5); Eosinophils % (auto) 0.4 %; Hematocrit (blood only) 28.7 % (42-52); Hemoglobin 8.9 g/dL (14.0-18.0); Immature Granulocytes # (auto) 0.04 K/uL (0.00-0.02); Immature Granulocytes % (auto) 0.3 %; Lymphocytes # (auto) 1.43 K/uL (1.2-3.4); Lymphocytes % (auto) 11.8 %; Mean Corpuscular Hemoglobin 28.8 pg (25-34); Mean Corpuscular Volume 92.9 fL (80-100); Mean Platelet Volume 9.7 fL (7.4-10.4); Monocytes # (auto) 0.71 K/uL (0.11-0.59); Monocytes % (auto) 5.9 %; Neutrophils # (auto) 9.85 K/uL (1.4-6.5); Neutrophils % (auto) 81.5 %; Platelet Count 444 K/uL (130-400); RDW Coefficient of Variation 17.7 % (11.5-14.5); Red Blood Count 3.09 M/uL (4.7-6.1); White Blood Count 12.09 K/uL (4.8-10.8)
[2021-01-17 16:36] LABS: INR 1.1 (0.9-1.1); Partial Thromboplastin Time 27.6 Seconds (21.0-31.0); Prothrombin Time 10.9 Seconds (9.0-12.0)
[2021-01-17 16:46] LABS: Albumin Level 1.9 gm/dl (3.4-5.0); BUN Creatinine Ratio 17.2 (10-20); Calcium 8.4 mg/dl (8.5-10.1); Creatinine Clr Calc Pharmacy 14.9 ml/min; Est GFR (African American) 26.2; Est GFR (Non-African American) 22.6
[2021-01-17 16:51] LABS: Albumin Globulin Ratio 0.3 (0.9-2); Bilirubin,Total 0.4 mg/dl (0.2-1); Globulin 5.5 gm/dl (2.5-4.0); Total Protein 7.4 gm/dl (6.4-8.2); Troponin I 0.034 ng/ml (0-0.045)
[2021-01-17] MEDS ORDERED: VANCOMYCIN HCL 750 MG in SODIUM CHLORIDE 0.9% 500 ML IV ONE (18:28)
[2021-01-17] MEDS ORDERED: VANCOMYCIN CONSULT ACTIVE PRN ×2 (18:28→22:38)
[2021-01-17] MEDS ORDERED: CEFEPIME 2,000 MG/20 ML VIAL IV STA (18:28)
--- NOTE | 2021-01-17 19:03 | Emergency Department Note ---
Impression & Plan Leukocytosis, Rigors, Osteomyelitis of sacrum, ESRD on hemodialysis ED Provider Note INFORMANT: EMS ED PROVIDER(S): rA Bull MD CHIEF COMPLAINT: Chest pain PLAN: Disposition: Admitted Condition: Good Outpatient prescription management: none Referral: None MEDICAL DECISION MAKING: Patient presented to the wound center and then was referred to the ER. I did review the prior records from the wound center. They did have concerns for possible sepsis. The patient does have a history of osteomyelitis of the sacrum as well as bacteremia. On arrival he was tachycardic. The patient was not hypotensive. Due to his dialysis status the patient was not given IV fluid boluses. Cultures were obtained. Patient's temperature was borderline. Covid testing was performed. Chest x-ray shows some mild pulmonary edema without infiltrate. He does have a leukocytosis on CBC. Chemistry panel reveals his end-stage renal disease. His LFTs and lipase are unremarkable. The patient has CT confirmation of osteomyelitis on his last CAT scan. Due to the possibility of infection given the rigors and elevated white blood cell count with his past medical history he was given cefepime and vancomycin empirically. I did consult with Dr. Lugo of the [facility]. Patient will be evaluated in the ER for further management. Triage Nursing notes reviewed and agree them. Vital Signs: reviewed and remarkable for no significant abnormalities Differential diagnosis: Sepsis, UTI, pneumonia, metabolic, electrolyte abnormalities, cardiac sources, intracerebral event, toxicologic, neurologic, as well as other pathologies. Diagnostics interpreted by me: ECG: Twelve-lead ECG shows a sinus tachycardia at 118 bpm. First-degree block. Right axis deviation. Inferior posterior infarct present. This appears old when compared to ECG of 30 December 2020 Cardiac Monitoring: Cardiac monitoring ordered by me: The patient was placed on continuous cardiac monitoring and observed. It revealed a normal sinus rhythm at 87 beats per minute without ectopy or evidence of dysrhythmia. Imaging studies: Chest x-ray shows mild pulmonary edema. Dialysis catheter in place. HPI: The patient is a 75 year old male who presents to the Emergency Room from the wound center due to concerns of possible sepsis. The patient is being followed for a large sacral decubitus and osteomyelitis of the sacrum. He presented to the wound center and had rigors, tachycardia and tachypnea. He had a trouble getting a pulse oximetry on him. They directed him to the emergency department for further management. The patient is debilitated and only answers yes to questions. There was some report from EMS about chest discomfort. This started today. Patient does have a history of aphasia and CVA. History is limited secondary to patient's mental status. ROS: See above HPI for pertinent positives & negatives. Limited secondary to patient's mental status. PAST MEDICAL HISTORY:See Below , CVA, diabetes, end-stage renal disease PAST SURGICAL HISTORY:See Below, dialysis catheter FAMILY HISTORY:See Below SOCIAL HISTORY:See Below, retired HOME MEDICATIONS:See Below ALLERGIES:See Below VITALS:See Below PHYSICAL EXAMINATION: GENERAL: Awake, [id number], in no distress HENT: Normocephalic, atraumatic. Oropharynx unremarkable. EYES: Normal conjunctiva. Sclera non-icteric. NECK: Inspection normal. Non-tender. Supple. No nuchal rigidity. FROM. No masses. RESPIRATORY: Clear to auscultation. No wheezes. No rales. Normal respiratory effort. CARDIAC: Tachycardic rate. Normal rhythm. No murmurs. No rubs. Extremities warm and well perfused. Pulses equal. No JVD. GI: Soft, non-distended. No tenderness to palpation. No rebound or guarding. No masses. RECTAL: Deferred. MUSCULOSKELETAL: Atraumatic. Chest examination reveals no tenderness. Dialysis catheter in the right upper chest. The back is symmetrical on inspection w ithout obvious abnormality. There is no CVA tenderness to palpation. No joint edema. There is a large sacral decubitus ulcer present. This appears to be stage IV. No surrounding cellulitis. There is some purulence noted at the base. LOWER EXTREMITIES: Calves are equal size bilaterally and non-tender. No edema. No discoloration. NEURO: Aphasic, altered sensorium. Patient answering yes to most questions. Contractures noted of the right upper extremity. SKIN: No rash or jaundice noted. Ar Bull MD Past Med/Surg History Medical History Acidosis, lactic Acute UTI (urinary tract infection) Benign prostatic hyperplasia CAD (coronary artery disease) s/p CABG 2007 Carotid artery stenosis s/p remote R & L endarterectomies with L re-occlusion sometime before 2010. Being [place] [facility] [place] Plavix. Chronic kidney disease Dementia Depression Diabetes mellitus, type 2 A1C 5.4% 11/2019. Not on any medication. 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 Pleural effusion Renal artery stenosis s/p left renal artery stenting; moderate right renal artery stenosis but no significant left renal artery stenosis on 11/2019 duplex Seizure disorder Stable on Keppra, no seizure for "a long time." [place] [facility] [place]. Sepsis SNHL (sensorineural hearing loss) Surgical History History of aorto-femoral bypass History of bypass graft (non vein) Aortic-femoral or bifemoral History of carotid endarterectomy L 1998, R 2009 History of cataract surgery RT/LEFT History of colonoscopy History of esophagogastroduodenoscopy (EGD) History of tooth extraction History of vascular access device IJ FOR DIAYLSIS S/P CABG (coronary artery bypass graft) (2007) [facility] Family History Brother Hypertension Hypercholesteremia Sister Diabetes Unknown Hypertension Cardiac disorder Social History (Updated 01/03/21 @ 13:14 by Joanna Hill, RN) Smoking Status: Never smoker Tobacco Type: Cigarettes Cigarettes Per Day: 30; Second Hand Exposure: No; Hx Alcohol Use: No Hx Substance Use: No Preferred Language: Nigerien Communication Ability: Unable Visual Impairment: No Limitations Pipe Line Gauger Required: No Beliefs That Will Affect Care: None marital status: Current Living Situation: Spouse Current Living Situation Comment: at [facility] current occupational status: 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" Feels Safe at Home: Yes caffeine: No Seatbelt Use: always Assistive Devices: None Allergies Allergies Allergy/AdvReac Type Severity Reaction Status Date / Time adhesive Allergy Unknown BLISTERING Verified 01/17/21 13:38 OF SKIN latex Allergy Unknown Rash Verified 01/17/21 13:38 Home Meds Home Medications Medication Instructions Recorded Confirmed docusate sodium [Stool Softener] 100 mg PO DAILY 04/13/20 01/17/21 calcitriol [Rocaltrol] 0.25 mcg PO MOWEFR 11/28/20 01/17/21 [employer] [employer] 1 applic TOPICAL DAILY 12/26/20 01/17/21 triamcinolone acetonide 1 applic TOPICAL BID PRN 12/26/20 01/17/21 Previous Rx's Medication Instructions Recorded Renal Caps 1 cap PO QAM #30 cap 11/20/19 citalopram 10 mg tablet 10 mg PO HS #30 tab 12/15/20 clopidogrel 75 mg tablet 75 mg PO DAILY #30 tab 12/15/20 collagenase clostridium histo. 250 1 applic TOPICAL UD #30 g 12/15/20 unit/gram topical ointment famotidine 40 mg tablet 40 mg PO BID #180 tab 12/15/20 atorvastatin 80 mg tablet 80 mg PO DAILY #30 tab 12/16/20 levetiracetam 500 mg tablet 500 mg PO SUTUTHSA 30 Days #18 tab 12/19/20 miscellaneous medical supply 1 ea MISCELLANEOUS ONCE #1 ea 12/30/20 vancomycin 125 mg PO Q6H #57 cap 12/31/20 collagenase clostridium histo. 250 1 applic TOPICAL DAILY 30 Days #90 01/06/21 unit/gram topical ointment g Results & Data (ED) Vital Signs Vital Signs - 24 hr 01/17/21 14:54 01/17/21 15:04 01/17/21 15:10 Temperature 37.7 C H Temperature Source Oral Pulse Rate 118 H 115 H 112 H Pulse Rate from SpO2 Sensor 116 H 111 H Respiratory Rate 24 23 12 Respiratory Effort / Characteristics Non-Labored Respiratory Depth Normal Respiratory Pattern Regular Blood Pressure 151/105 H 151/105 H Blood Pressure Mean 120 120 Blood Pressure Position Sitting Pulse Oximetry 98 100 100 Oxygen Delivery Method Nasal Cannula Oxygen Flow Rate 4 Sepsis New/Unexplained Change in Mental Status No Sepsis Action Taken by Nursing Physician Notified 01/17/21 15:15 01/17/21 15:30 01/17/21 15:33 Temperature Temperature Source Pulse Rate 107 H 103 H 103 H Pulse Rate from SpO2 Sensor 104 H 100 H 104 H Respiratory Rate 17 21 20 Respiratory Effort / Characteristics Respiratory Depth Respiratory Pattern Blood Pressure 124/92 Blood Pressure Mean 102 Blood Pressure Position Pulse Oximetry 100 100 100 Oxygen Delivery Method Oxygen Flow Rate Sepsis New/Unexplained Change in Mental Status Sepsis Action Taken by Nursing 01/17/21 15:45 01/17/21 16:00 01/17/21 16:15 Temperature Temperature Source Pulse Rate 86 99 H 102 H Pulse Rate from SpO2 Sensor 96 H 100 H 101 H Respiratory Rate 21 10 L 19 Respiratory Effort / Characteristics Respiratory Depth Respiratory Pattern Blood Pressure Blood Pressure Mean Blood Pressure Position Pulse Oximetry 100 100 100 Oxygen Delivery Method Oxygen Flow Rate Sepsis New/Unexplained Change in Mental Status Sepsis Action Taken by Nursing 01/17/21 16:30 01/17/21 16:45 01/17/21 17:00 Temperature Temperature Source Pulse Rate 95 H 82 97 H Pulse Rate from SpO2 Sensor 95 H 85 96 H Respiratory Rate 20 19 17 Respiratory Effort / Characteristics Respiratory Depth Respiratory Pattern Blood Pressure Blood Pressure Mean Blood Pressure Position Pulse Oximetry 100 100 100 Oxygen Delivery Method Oxygen Flow Rate Sepsis New/Unexplained Change in Mental Status Sepsis Action Taken by Nursing 01/17/21 17:12 01/17/21 17:15 01/17/21 17:30 Temperature Temperature Source Pulse Rate 94 H 74 92 H Pulse Rate from SpO2 Sensor 94 H 85 90 Respiratory Rate 21 18 22 Respiratory Effort / Characteristics Respiratory Depth Respiratory Pattern Blood Pressure 124/92 Blood Pressure Mean 102 Blood Pressure Position Pulse Oximetry 100 100 100 Oxygen Delivery Method Nasal Cannula Oxygen Flow Rate 2 Sepsis New/Unexplained Change in Mental Status Sepsis Action Taken by Nursing 01/17/21 17:45 Temperature Temperature Source Pulse Rate 87 Pulse Rate from SpO2 Sensor 92 H Respiratory Rate 23 Respiratory Effort / Characteristics Respiratory Depth Respiratory Pattern Blood Pressure Blood Pressure Mean Blood Pressure Position Pulse Oximetry 100 Oxygen Delivery Method Nasal Cannula Oxygen Flow Rate 2 Sepsis New/Unexplained Change in Mental Status Sepsis Action Taken by Nursing Laboratory Data Result diagrams: 01/17/21 16:04 01/17/21 16:04 Lab Results 01/17/21 01/17/21 01/17/21 Range/Units 16:04 16:04 16:04 WBC 12.09 H (4.8-10.8) K/uL RBC 3.09 L (4.7-6.1) M/uL Hgb 8.9 L (14.0-18.0) g/dL Hct 28.7 L (42-52) % MCV 92.9 (80-100) fL MCH 28.8 (25-34) pg MCHC 31.0 L (32-36) g/dL RDW Std Deviation 60.0 H (36.4-46.3) fL RDW Coeff of Shayy 17.7 H (11.5-14.5) % Plt Count 444 H (130-400) K/uL MPV 9.7 (7.4-10.4) fL Immature Gran % (Auto) 0.3 % Neut % (Auto) 81.5 % Lymph % (Auto) 11.8 % [place] % (Auto) 5.9 % Eos % (Auto) 0.4 % Baso % (Auto) 0.1 % Neut # (Auto) 9.85 H (1.4-6.5) K/uL Lymph # (Auto) 1.43 (1.2-3.4) K/uL [place] # (Auto) 0.71 H (0.11-0.59) K/uL Eos # (Auto) 0.05 (0-0.5) K/uL Baso # (Auto) 0.01 (0-0.2) K/uL Immature Gran # (Auto) 0.04 H (0.00-0.02) K/uL PT 10.9 (9.0-12.0) Seconds INR 1.1 (0.9-1.1) APTT 27.6 (21.0-31.0) Seconds PTT Ratio 1.0 Sodium 133 L (136-145) mmol/L Potassium 5.0 (3.5-5.1) mmol/L Chloride 96 L (98-107) mmol/L Carbon Dioxide 33 H (21-32) mmol/L Anion Gap 4.0 (3-11) BUN 46 H (7-18) mg/dl Creatinine 2.65 H (0.6-1.4) mg/dl Est Cr Clr Drug Dosing 14.9 ml/min Est GFR ( Amer) 26.2 Est GFR (Non-Af Amer) 22.6 BUN/Creatinine Ratio 17.2 (10-20) Glucose 171 H (70-99) mg/dl Lactate (0.4-2.0) mmol/L Calcium 8.4 L (8.5-10.1) mg/dl Total Bilirubin 0.4 (0.2-1) mg/dl AST 39 H (15-37) U/L ALT 53 (12-78) U/L Alkaline Phosphatase 109 (45-117) U/L Troponin I 0.034 (0-0.045) ng/ml Total Protein 7.4 (6.4-8.2) gm/dl Albumin 1.9 L (3.4-5.0) gm/dl Globulin 5.5 H (2.5-4.0) gm/dl Albumin/Globulin Ratio 0.3 L (0.9-2) Lipase 205 (73-393) U/L Blood Type Antibody Screen 01/17/21 01/17/21 Range/Units 16:04 16:04 WBC (4.8-10.8) K/uL RBC (4.7-6.1) M/uL Hgb (14.0-18.0) g/dL Hct (42-52) % MCV (80-100) fL MCH (25-34) pg MCHC (32-36) g/dL RDW Std Deviation (36.4-46.3) fL RDW Coeff of Shayy (11.5-14.5) % Plt Count (130-400) K/uL MPV (7.4-10.4) fL Immature Gran % (Auto) % Neut % (Auto) % Lymph % (Auto) % [place] % (Auto) % Eos % (Auto) % Baso % (Auto) % Neut # (Auto) (1.4-6.5) K/uL Lymph # (Auto) (1.2-3.4) K/uL [place] # (Auto) (0.11-0.59) K/uL Eos # (Auto) (0-0.5) K/uL Baso # (Auto) (0-0.2) K/uL Immature Gran # (Auto) (0.00-0.02) K/uL PT (9.0-12.0) Seconds INR (0.9-1.1) APTT (21.0-31.0) Seconds PTT Ratio Sodium (136-145) mmol/L Potassium (3.5-5.1) mmol/L Chloride (98-107) mmol/L Carbon Dioxide (21-32) mmol/L Anion Gap (3-11) BUN (7-18) mg/dl Creatinine (0.6-1.4) mg/dl Est Cr Clr Drug Dosing ml/min Est GFR ( Amer) Est GFR (Non-Af Amer) BUN/Creatinine Ratio (10-20) Glucose (70-99) mg/dl Lactate 2.0 (0.4-2.0) mmol/L Calcium (8.5-10.1) mg/dl Total Bilirubin (0.2-1) mg/dl AST (15-37) U/L ALT (12-78) U/L Alkaline Phosphatase (45-117) U/L Troponin I (0-0.045) ng/ml Total Protein (6.4-8.2) gm/dl Albumin (3.4-5.0) gm/dl Globulin (2.5-4.0) gm/dl Albumin/Globulin Ratio (0.9-2) Lipase (73-393) U/L Blood Type A Positive Antibody Screen NEGATIVE Imaging Data Radiologist's Impression: Chest X-Ray 01/17/21 15:03 XR chest 1V portable CLINICAL HISTORY: Atypical chest pain COMPARISON STUDY: 12/26/2020 FINDINGS: The heart is mildly enlarged. There are postsurgical changes of a midline sternotomy. There is radiographic evidence of congestive failure/fluid overload. There are small bilateral pleural effusions. There is a right-sided double lumen central venous catheter.[ IMPRESSION: 1. Radiographic evidence of congestive failure with mild interstitial edema. No pleural effusions. ACT 112: Negative or not required by law. Electronically signed by: Nick Vegas M.D. 01/17/2021 4:18 PM Discharge Plan Visit Data Chief Complaint: Chest Pain ED Provider: Ar Bull Discharge Problem: Leukocytosis, Rigors, Osteomyelitis of sacrum, ESRD on hemodialysis Forms Stand Alone Forms: My [facility] Prescriptions Prescriptions: No Action Santyl 250 unit/gram ointment 1 applic topical DAILY 30 Days Qty: 90 RF: 2 citalopram 10 mg tablet 10 mg PO HS Qty: 30 RF: 5 clopidogrel [Plavix] 75 mg tablet 75 mg PO DAILY Qty: 30 RF: 5 famotidine 40 mg tablet 40 mg PO BID Qty: 180 RF: 3 levetiracetam [Keppra] 500 mg tablet 500 mg PO SUTUTHSA 30 Days Qty: 18 RF: 0 Renal Caps 1 mg Capsule 1 cap PO QAM Qty: 30 RF: 0 triamcinolone acetonide 0.1 % cream 1 applic topical BID PRN (Reason: Skin Irritation) RF: 0 vancomycin 125 mg capsule 125 mg PO Q6H Qty: 57 RF: 0 atorvastatin [Lipitor] 80 mg tablet 80 mg PO QPM RF: 0 calcitriol [Rocaltrol] 0.25 mcg capsule 0.25 mcg PO MOWEFR RF: 0
--- NOTE | 2021-01-17 19:43 | History & Physical Report ---
Date of Service January 17, 2021 Assessment & Plan (1) Sepsis: 75yo male with multiple medical problems presenting from [facility] with concerns for sepsis. Patient had reported rigors, tachycardia and tachypnea in outpatient clinic. Here he has elevated temperature of 37.7, initially tachycar dic, WBC=12.09 with neutrophil predominance and slightly elevated bands. Blood and wound cultures obtained in ER -Admit to medical -Follow cultures -Check Xray pelvis -Tylenol PRN -Vancomycin and Cefepime with renal dosing Present on Admission?: Yes (2) CAD (coronary artery disease): Chronic. Troponin is detectable per usual. EKG with accelerated junctional rhythm with RBBB -Repeat EKG -Continue Atorvastatin -Continue Plavix Present on Admission?: Yes (3) Osteomyelitis of sacrum: Chronic -Follow cultures -Vancomycin and Cefepime for now -XR Pelvis -Continue Collagenase -Wound care assessment daily appreciated Present on Admission?: Yes (4) C. difficile colitis: Patient recently admitted with C. diff coliltis recurrence and is currently on a taper of PO Vancomycin. No longer having diarrhea. -Continue Vancomycin 125mg po daily until 01/23/21 then every other day x 2 weeks Present on Admission?: Yes (5) Seizure disorder: Chronic -Continue Keppra 500mg po as directed Present on Admission?: Yes (6) Depression: Chronic -Continue Citalopram 10mg po qHS Present on Admission?: Yes (7) GERD (gastroesophageal reflux disease): Chronic -Continue Pepcid 40mg po BID Present on Admission?: Yes (8) ESRD on hemodialysis: Acceptable metabolic profile. No need for urgent HD. -Cautious use of fluids -HD dosing where needed -Repeat labs in AM -Continue Renal Caps -Continue Calcitriol -Routine Nephrology consultation appreciated F/E/N - Heplock. Montior electrolytes. HD/Easy to chew diet as tolerated with aspiration precautions and assistance as needed Ppx - SCDs Code - Full Code per chart review Dispo - Admit to medical Present on Admission?: Yes History of Present Illness Chief Complaint: Rigors, tachycardia, tachypnea Primary Care Provider: Erick Zapata MD Miguel Mata is a 75yo C male with multiple medical problems, most notably ESRD on HD, CAD, Dementia and prior CVA. Patient is unable to effectively communicate due to prior CVA's as well as underlying dementia - he answers "Yes" to all questions asked. History obtained through chart review and discussion with ER attending. Mr. Mata has multiple pressure ulcers including a pressure ulcer of the sacral region. He follows with Wound Care and was seen int he clinic today. Patient was found to have rigors, tachycardia with HR of 123, tachypnea with RR of 26, possibly hypoxic. He was transferred to [facility] due to concerns for sepsis from sacral wound. Upon arrival to the ER patient mildly hyperthermic with temperature of 37.7, tachycardic at 118, adequate oxygenation on room air. Patient unable to voice complaints. ER Course: Vancomycin 750mg, Cefepime x 2 gm Allergies Allergy/AdvReac Type Severity Reaction Status Date / Time adhesive Allergy Unknown BLISTERING Verified 01/17/21 13:38 OF SKIN latex Allergy Unknown Rash Verified 01/17/21 13:38 Home Medications Medication Instructions Recorded Confirmed Type Renal Caps 1 cap PO QAM #30 cap 11/20/19 01/17/21 Rx calcitriol [Rocaltrol] 0.25 mcg PO MOWEFR 11/28/20 01/17/21 History citalopram 10 mg tablet 10 mg PO HS #30 tab 12/15/20 01/17/21 Rx clopidogrel 75 mg tablet 75 mg PO DAILY #30 tab 12/15/20 01/17/21 Rx famotidine 40 mg tablet 40 mg PO BID #180 tab 12/15/20 01/17/21 Rx levetiracetam 500 mg tablet 500 mg PO SUTUTHSA 30 Days #18 tab 12/19/20 01/17/21 Rx triamcinolone acetonide 1 applic TOPICAL BID PRN 12/26/20 01/17/21 History vancomycin 125 mg PO Q6H #57 cap 12/31/20 01/17/21 Rx collagenase clostridium histo. 250 1 applic TOPICAL DAILY 30 Days #90 01/06/21 01/17/21 Rx unit/gram topical ointment g atorvastatin [Lipitor] 80 mg PO QPM 01/17/21 01/17/21 History Past Med/Surg History Medical History Acidosis, lactic Acute UTI (urinary tract infection) Benign prostatic hyperplasia CAD (coronary artery disease) s/p CABG 2007 Carotid artery stenosis s/p remote R & L endarterectomies with L re-occlusion sometime before 2010. Being monitored by [facility] neuro, on Plavix. Chronic kidney disease Dementia Depression Diabetes mellitus, type 2 A1C 5.4% 11/2019. Not on any medication. 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 Pleural effusion Renal artery stenosis s/p left renal artery stenting; moderate right renal artery stenosis but no significant left renal artery stenosis on 11/2019 duplex Seizure disorder Stable on Keppra, no seizure for "a long time." Follows with [facility] neurology. Sepsis SNHL (sensorineural hearing loss) Surgical History History of aorto-femoral bypass History of bypass graft (non vein) Aortic-femoral or bifemoral History of carotid endarterectomy L 1998, R 2009 History of cataract surgery RT/LEFT History of colonoscopy History of esophagogastroduodenoscopy (EGD) History of tooth extraction History of vascular access device IJ FOR DIAYLSIS S/P CABG (coronary artery bypass graft) (2007) [facility] Family History Brother Hypertension Hypercholesteremia Sister Diabetes Unknown Hypertension Cardiac disorder Social History Smoking Status: Never smoker Tobacco Type: Cigarettes Cigarettes Per Day: 30; Second Hand Exposure: No; Hx Alcohol Use: No Hx Substance Use: No Preferred Language: Croatian Communication Ability: Unable Visual Impairment: No Limitations Time Motion Analyst Required: No Beliefs That Will Affect Care: None marital status: Current Living Situation: Spouse Current Living Situation Comment: at [facility] current occupational status: 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" Feels Safe at Home: Yes caffeine: No Seatbelt Use: always Assistive Devices: None Review of Systems Review of Systems: Unobtainable due to cognitive status Physical Exam Physical Exam: General: patient chronically ill in appearance, NAD, answers "yes" to all questions asked Skin: sacral wound not visualized HEENT: NC/AT, EOMI, anicteric sclera, conjunctiva without injection, external ear normal to inspection and nontender, nares patent, moist mucus membranes, dentition intact, no oropharyngeal lesions, neck supple, trachea midline, no LAD, no thyromegaly, no JVD Heart: +S1/S2, regular, tachycardic, no m/r/g, right chest perm cath Lungs: equal air entry bilaterally, no rales/rhonchi/wheezes Abd: +BS, soft, NT/ND, no masses/organomegaly/ascites Ext: warm, 2+ pulses in UE/LE bilaterally, no clubbing/cyanosis or edema Results & Data Results & Data ([facility]) Vital Signs (Past 12 Hours) Vital Signs Temp Pulse Pulse Resp BP BP Pulse Ox 01/17/21 19:04 97 H 24 138/95 100 01/17/21 17:45 87 23 01/17/21 17:30 92 H 22 100 01/17/21 17:15 74 18 100 01/17/21 17:12 94 H 21 124/92 100 01/17/21 17:00 97 H 17 01/17/21 16:45 82 19 100 01/17/21 16:30 95 H 20 100 01/17/21 16:15 102 H 19 100 01/17/21 16:00 99 H 10 L 100 01/17/21 15:45 86 21 01/17/21 15:33 103 H 20 124/92 01/17/21 15:30 103 H 21 100 01/17/21 15:15 107 H 17 100 01/17/21 15:10 112 H 12 100 01/17/21 15:04 115 H 23 151/105 H 100 01/17/21 14:54 37.7 C H 118 H 24 151/105 H 98 Laboratory Results Lab Results 01/17/21 01/17/21 01/17/21 Range/Units 16:04 16:04 16:04 WBC 12.09 H (4.8-10.8) K/uL RBC 3.09 L (4.7-6.1) M/uL Hgb 8.9 L (14.0-18.0) g/dL Hct 28.7 L (42-52) % MCV 92.9 (80-100) fL MCH 28.8 (25-34) pg MCHC 31.0 L (32-36) g/dL RDW Std Deviation 60.0 H (36.4-46.3) fL RDW Coeff of Shayy 17.7 H (11.5-14.5) % Plt Count 444 H (130-400) K/uL MPV 9.7 (7.4-10.4) fL Immature Gran % (Auto) 0.3 % Neut % (Auto) 81.5 % Lymph % (Auto) 11.8 % Clinch % (Auto) 5.9 % Eos % (Auto) 0.4 % Baso % (Auto) 0.1 % Neut # (Auto) 9.85 H (1.4-6.5) K/uL Lymph # (Auto) 1.43 (1.2-3.4) K/uL Clinch # (Auto) 0.71 H (0.11-0.59) K/uL Eos # (Auto) 0.05 (0-0.5) K/uL Baso # (Auto) 0.01 (0-0.2) K/uL Immature Gran # (Auto) 0.04 H (0.00-0.02) K/uL PT 10.9 (9.0-12.0) Seconds INR 1.1 (0.9-1.1) APTT 27.6 (21.0-31.0) Seconds PTT Ratio 1.0 Sodium 133 L (136-145) mmol/L Potassium 5.0 (3.5-5.1) mmol/L Chloride 96 L (98-107) mmol/L Carbon Dioxide 33 H (21-32) mmol/L Anion Gap 4.0 (3-11) BUN 46 H (7-18) mg/dl Creatinine 2.65 H (0.6-1.4) mg/dl Est Cr Clr Drug Dosing 14.9 ml/min Est GFR ( Amer) 26.2 Est GFR (Non-Af Amer) 22.6 BUN/Creatinine Ratio 17.2 (10-20) Glucose 171 H (70-99) mg/dl Lactate (0.4-2.0) mmol/L Calcium 8.4 L (8.5-10.1) mg/dl Total Bilirubin 0.4 (0.2-1) mg/dl AST 39 H (15-37) U/L ALT 53 (12-78) U/L Alkaline Phosphatase 109 (45-117) U/L Troponin I 0.034 (0-0.045) ng/ml Total Protein 7.4 (6.4-8.2) gm/dl Albumin 1.9 L (3.4-5.0) gm/dl Globulin 5.5 H (2.5-4.0) gm/dl Albumin/Globulin Ratio 0.3 L (0.9-2) Lipase 205 (73-393) U/L COVID-19 Eval Order SARS-CoV-2 (PCR) (Negative) Influenza Type A (PCR) (Neg) Influenza Type B (PCR) (Neg) RSV (RT-PCR) (Neg) Blood Type Antibody Screen 01/17/21 01/17/21 01/17/21 Range/Units 16:04 16:04 19:00 WBC (4.8-10.8) K/uL RBC (4.7-6.1) M/uL Hgb (14.0-18.0) g/dL Hct (42-52) % MCV (80-100) fL MCH (25-34) pg MCHC (32-36) g/dL RDW Std Deviation (36.4-46.3) fL RDW Coeff of Shayy (11.5-14.5) % Plt Count (130-400) K/uL MPV (7.4-10.4) fL Immature Gran % (Auto) % Neut % (Auto) % Lymph % (Auto) % Clinch % (Auto) % Eos % (Auto) % Baso % (Auto) % Neut # (Auto) (1.4-6.5) K/uL Lymph # (Auto) (1.2-3.4) K/uL Clinch # (Auto) (0.11-0.59) K/uL Eos # (Auto) (0-0.5) K/uL Baso # (Auto) (0-0.2) K/uL Immature Gran # (Auto) (0.00-0.02) K/uL PT (9.0-12.0) Seconds INR (0.9-1.1) APTT (21.0-31.0) Seconds PTT Ratio Sodium (136-145) mmol/L Potassium (3.5-5.1) mmol/L Chloride (98-107) mmol/L Carbon Dioxide (21-32) mmol/L Anion Gap (3-11) BUN (7-18) mg/dl Creatinine (0.6-1.4) mg/dl Est Cr Clr Drug Dosing ml/min Est GFR ( Amer) Est GFR (Non-Af Amer) BUN/Creatinine Ratio (10-20) Glucose (70-99) mg/dl Lactate 2.0 (0.4-2.0) mmol/L Calcium (8.5-10.1) mg/dl Total Bilirubin (0.2-1) mg/dl AST (15-37) U/L ALT (12-78) U/L Alkaline Phosphatase (45-117) U/L Troponin I (0-0.045) ng/ml Total Protein (6.4-8.2) gm/dl Albumin (3.4-5.0) gm/dl Globulin (2.5-4.0) gm/dl Albumin/Globulin Ratio (0.9-2) Lipase (73-393) U/L COVID-19 Eval Order CovFluRsv at [facility] SARS-CoV-2 (PCR) (Negative) Influenza Type A (PCR) (Neg) Influenza Type B (PCR) (Neg) RSV (RT-PCR) (Neg) Blood Type A Positive Antibody Screen NEGATIVE 01/17/21 Range/Units 19:00 WBC (4.8-10.8) K/uL RBC (4.7-6.1) M/uL Hgb (14.0-18.0) g/dL Hct (42-52) % MCV (80-100) fL MCH (25-34) pg MCHC (32-36) g/dL RDW Std Deviation (36.4-46.3) fL RDW Coeff of Shayy (11.5-14.5) % Plt Count (130-400) K/uL MPV (7.4-10.4) fL Immature Gran % (Auto) % Neut % (Auto) % Lymph % (Auto) % Clinch % (Auto) % Eos % (Auto) % Baso % (Auto) % Neut # (Auto) (1.4-6.5) K/uL Lymph # (Auto) (1.2-3.4) K/uL Clinch # (Auto) (0.11-0.59) K/uL Eos # (Auto) (0-0.5) K/uL Baso # (Auto) (0-0.2) K/uL Immature Gran # (Auto) (0.00-0.02) K/uL PT (9.0-12.0) Seconds INR (0.9-1.1) APTT (21.0-31.0) Seconds PTT Ratio Sodium (136-145) mmol/L Potassium (3.5-5.1) mmol/L Chloride (98-107) mmol/L Carbon Dioxide (21-32) mmol/L Anion Gap (3-11) BUN (7-18) mg/dl Creatinine (0.6-1.4) mg/dl Est Cr Clr Drug Dosing ml/min Est GFR ( Amer) Est GFR (Non-Af Amer) BUN/Creatinine Ratio (10-20) Glucose (70-99) mg/dl Lactate (0.4-2.0) mmol/L Calcium (8.5-10.1) mg/dl Total Bilirubin (0.2-1) mg/dl AST (15-37) U/L ALT (12-78) U/L Alkaline Phosphatase (45-117) U/L Troponin I (0-0.045) ng/ml Total Protein (6.4-8.2) gm/dl Albumin (3.4-5.0) gm/dl Globulin (2.5-4.0) gm/dl Albumin/Globulin Ratio (0.9-2) Lipase (73-393) U/L COVID-19 Eval Order SARS-CoV-2 (PCR) NEGATIVE (Negative) Influenza Type A (PCR) Negative (Neg) Influenza Type B (PCR) Negative (Neg) RSV (RT-PCR) Negative (Neg) Blood Type Antibody Screen Diagnostic Findings XR chest 1V portable CLINICAL HISTORY: Atypical chest pain COMPARISON STUDY: 12/26/2020 FINDINGS: The heart is mildly enlarged. There are postsurgical changes of a midline sternotomy. There is radiographic evidence of congestive failure/fluid overload. There are small bilateral pleural effusions. There is a right-sided double lumen central venous catheter.[ IMPRESSION: 1. Radiographic evidence of congestive failure with mild interstitial edema. No pleural effusions. ACT 112: Negative or not required by law. Electronically signed by: Nick Vegas M.D. 01/17/2021 4:18 PM Dictated: 01/17/21 1618Transcribed: 01/17/218 PG Care Time/CCT Total # of Minutes Spent Total Time Spent with Patient: Total time spent is greater than 50% in coordination of care (as documented) at patient's floor/unit and/or counseling patient: Coding Level of Care Code 20062 Initial Inpt Care Lvl 3 Diagnoses Sepsis A41.9 Sepsis acute organ dysfunction status: unspecified Sepsis type: sepsis due to unspecified organism CAD (coronary artery disease) I25.10 Coronary Disease-Associated Artery/Lesion type: [place] artery [place] vs. transplanted heart: [place] heart Associated angina: without angina Osteomyelitis of sacrum M46.28 C. difficile colitis A04.72 Seizure disorder G40.909 Depression F32.9 Depression Type: unspecified GERD (gastroesophageal reflux disease) K21.9 Esophagitis presence: esophagitis presence not specified ESRD on hemodialysis N18.6; Z99.2 (1) CAD (coronary artery disease) Coronary Disease-Associated Artery/Lesion type: [place] artery [place] vs. transplanted heart: [place] heart Associated angina: without angina Qualified Code(s): I25.10 - Atherosclerotic heart disease of [place] coronary artery without angina pectoris (2) Depression Depression Type: unspecified Qualified Code(s): F32.9 - Major depressive disorder, single episode, unspecified (3) GERD (gastroesophageal reflux disease) Esophagitis presence: esophagitis presence not specified Qualified Code(s): K21.9 - Gastro-esophageal reflux disease without esophagitis (4) Sepsis Sepsis acute organ dysfunction status: unspecified Sepsis type: sepsis due to unspecified organism Qualified Code(s): A41.9 - Sepsis, unspecified organism
[2021-01-17 20:25] LABS: Influenza A virus by PCR Negative (Neg); Influenza B virus by PCR Negative (Neg); RSV by PCR Negative (Neg); SARS CoV2 RNA(COVID-19) InHosp NEGATIVE (Negative)
[2021-01-17] MEDS ORDERED: ONDANSETRON INJ 2 MG/ML 2 ML VIAL IV PRN (22:38)
[2021-01-17] MEDS ORDERED: ACETAMINOPHEN 325 MG TAB PO PRN (22:38)
[2021-01-17 23:09] LABS: Phosphorus 2.6 mg/dl (2.5-4.9)
[2021-01-18] MEDS: CITALOPRAM 20 MG TAB PO SCH ×2 (01:26→20:58)
[2021-01-18] MEDS: FAMOTIDINE 40 MG TABLET PO SCH ×3 (01:27→20:59)
[2021-01-18] MEDS: ATORVASTATIN 40 MG TAB PO SCH ×2 (01:27→21:00)
--- NOTE | 2021-01-18 06:33 | XRay Report ---
XR pelvis min 3V, including inlet and outlet views CLINICAL HISTORY: osteomyelitis COMPARISON: Pelvis radiograph August 22, 2020. CT of the pelvis January 12, 2021. FINDINGS: Right femoral internal fixation is partially imaged. Patient is rotated. Osteomyelitis of the sacrum shown on CT of January 12, 2021 is not evident on this exam, due to technique. No acute frac tures identified within the pelvis or hips. IMPRESSION: 1. No acute fracture within the pelvis or hips. 2. Osteomyelitis within the sacrum on CT of January 12, 2021 is not evident on this exam due to techniq ue. ACT 112: Negative or not required by law. Electronically signed by: Madan Mancilla M.D. 01/18/2021 6:32 AM
[2021-01-18 07:36] LABS: Basophils # (auto) 0.01 K/uL (0-0.2); Basophils % (auto) 0.1 %; Eosinophils # (auto) 0.09 K/uL (0-0.5); Eosinophils % (auto) 0.9 %; Hematocrit (blood only) 28.1 % (42-52); Hemoglobin 8.7 g/dL (14.0-18.0); Immature Granulocytes # (auto) 0.04 K/uL (0.00-0.02); Immature Granulocytes % (auto) 0.4 %; Lymphocytes # (auto) 1.48 K/uL (1.2-3.4); Lymphocytes % (auto) 14.2 %; Mean Corpuscular Hemoglobin 28.5 pg (25-34); Mean Corpuscular Volume 92.1 fL (80-100); Mean Platelet Volume 9.4 fL (7.4-10.4); Monocytes # (auto) 1.47 K/uL (0.11-0.59); Monocytes % (auto) 14.1 %; Neutrophils # (auto) 7.35 K/uL (1.4-6.5); Neutrophils % (auto) 70.3 %; Platelet Count 409 K/uL (130-400); RDW Coefficient of Variation 17.5 % (11.5-14.5); RDW Standard Deviation 59.1 fL (36.4-46.3); Red Blood Count 3.05 M/uL (4.7-6.1); White Blood Count 10.44 K/uL (4.8-10.8)
[2021-01-18] MEDS ORDERED: PNEUMOCOCCAL Polysaccharide Vaccine 25mcg/0.5mL vial/Syr IM ONE (08:00)
[2021-01-18] MEDS ORDERED: VANCOMYCIN HCL 1,000 MG in SODIUM CHLORIDE 0.9% 250 ML IV SCH (08:00)
[2021-01-18 08:06] LABS: BUN Creatinine Ratio 17.4 (10-20); Calcium 9.1 mg/dl (8.5-10.1); Creatinine Clr Calc Pharmacy 14.6 ml/min; Est GFR (African American) 22.2; Est GFR (Non-African American) 19.1; Potassium 5.4 mmol/L (3.5-5.1)
--- NOTE | 2021-01-18 08:35 | Electrocardiogram Report ---
Test Reason : Blood Pressure : / mmHG Vent. Rate : 118 BPM Atrial Rate : 127 BPM P-R Int : 000 ms QRS Dur : 104 ms QT Int : 358 ms P-R-T Axes : 000 266 055 degrees QTc Int : 501 ms Sinus rhythm with 1st degree A-V block (markedly prolnged NH) Right bundle branch block Old Inferior-posterior infarct (cited on or before 18-NOV-2020) Consider right ventricular involvement in acute inferior infarct Abnormal ECG When compared with ECG of 30-DEC-2020 08:08, HR has increased by 29 bpm Otherwise no significant change Confirmed by Nguyễn Pressley ([id number]) on 01/18/2021 8:34:47 AM Referred By: Confirmed By:Nguyễn Pressley
--- NOTE | 2021-01-18 09:00 | Electrocardiogram Report ---
Test Reason : Blood Pressure : / mmHG Vent. Rate : 090 BPM Atrial Rate : 090 BPM P-R Int : 322 ms QRS Dur : 088 ms QT Int : 396 ms P-R-T Axes : 019 168 232 degrees QTc Int : 484 ms Sinus rhythm with 1st degree A-V block (markedly prolonged MS interval) Old Inferior-posterior infarct (cited on or before 18-NOV-2020) Nonspecific ST and T wave abnormality Abnormal ECG When compared with ECG of 17-JAN-2021 14:55, HR has decreased by 28 bpm Otherwise no significant change Confirmed by Nguyễn Pressley ([id number]) on 01/18/2021 8:59:49 AM Referred By: REFERRED SELF Confirmed By:Nguyễn Pressley
[2021-01-18] MEDS: CALCITRIOL 0.25 MCG CAPSULE PO SCH (09:47)
[2021-01-18] MEDS: NEPHROCAPS PO SCH (09:47)
[2021-01-18] MEDS: CLOPIDOGREL BISULFATE 75 MG TAB PO SCH (09:48)
[2021-01-18] MEDS: RASPBERRY SYRUP 5 ML UDP PO SCH (09:49)
--- NOTE | 2021-01-18 10:17 | Pharmacy Report ---
Pharmacy Abx Dose Short Note - Date of Service January 18, 2021 - Assessment & Plan Assessment * 75 year old M receiving VANCOMYCIN + CEFEPIME for treatment of sepsis associated w/ sacral wound, osteomyelitis pelvis * Patient follows w/ wound clinic * He is HD dependent, being dialyzed . There are orders for a 4 hr HD session today * Mild leukocytosis has resolved * BLCX's ordered - results pending * Gram stain of cx taken from sacrum: rare gram negative rods Plan Vancomycin * 750mg (~15mg/kg) IV x 1 given yesterday evening * Random level = 13.6mcg/mL this AM * Plan to give 500mg IV x 1 s/p HD treatment today * Will recheck random level w/ AM labs tomorrow * Goal trough level for osteo : 15 to 20 mcg/mL * Plan to redose when level anticipated to be within or below this level Cefepime * Given septic picture, GNR in sacral gram stain, and bone involvement per December CT scan, will use max dose Cefepime 1gm Q 24 hrs -dosed after HD on days of dialysis Pharmacy will continue to follow and will adjust dose/frequency as necessary. Thank you.
[2021-01-18] MEDS: VANCOMYCIN HCL 125 MG/2.5ML SOLN PO SCH (10:49)
[2021-01-18] MEDS: COLLAGENASE OINT 30 GM TUBE TOP SCH (10:49)
--- NOTE | 2021-01-18 11:43 | Nephrology Consultation ---
Date of Consultation January 18, 2021 Assessment & Plan (1) ESRD on dialysis: ESKD on HD MWF at [facility]. Admitted with sepsis from stage IV sacral decubital ulcer, currently on vancomycin and Cefepime empirically. Currently BP, volume status acceptable, potassium high. --hemodialysis for 3.5 hours today with 2 K bath as his regular schedule, UF goal to EDW --JENSEN [id number] units IV during HD - continued Nephrocaps and renal diet --dose medications for GFR less than 10 --left arm nephrology precaution ( AVF) Will follow Thank you for allowing me to participate in your patient's care. It was a pleasure to see Mr. Mata (2) Acute hyperkalemia: (3) Pressure injury of sacral region, stage 4: (4) Anemia: (5) Aphasia: (6) Dementia: History of Present Illness Reason for Consultation: ESRD on HD, Hyperkalemia Attending Physician: Rani Walter MD History of Present Illness Miguel Mata is a 75-year-old gentlemen with h/o ESRD on HD MWF, CVA, hypertension, diabetes, CHF and h/o repeated fall admitted to the hospital with sepsis. Nephrology consult was requested to manage hemodialysis while inpatient. Electronic medical records including labs and imaging reviewed in detail during patient's visit. Most of the informations retrieved from EMR review as patient could not provide any history. Mr. Mata was transferred to [facility] ER yesterday due to concern for sepsis with known history of pressure ulcer in sacral region. He was at wound care center yesterday when he was found to have rigors, tachycardia and tachypnea. In ER he was found to be febrile and tachycardic. He was given vancomycin and cefepime. He did not have any respiratory distress. Labs are otherwise at his baseline except high potassium. Blood pressure has been acceptable. He has h/o repeated hospital admissions every 1-2 weeks over last few months with recurrent fall, urosepsis, sepsis related to pressure ulcer and ost eomyelitis, change in mental status and hypotension. At baseline he is aphasic with prior history of CVA and not in a position to make his own decision. Had repeated discussion with family with involvement of palliative care, however family wanted to continue all aggressive management including dialysis. 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 Currently he was awake alert and seems to be at his baseline. Allergies Allergy/AdvReac Type Severity Reaction Status Date / Time adhesive Allergy Unknown BLISTERING Verified 01/17/21 13:38 OF SKIN latex Allergy Unknown Rash Verified 01/17/21 13:38 Home Medications Medication Instructions Recorded Confirmed Type Renal Caps 1 cap PO QAM #30 cap 11/20/19 01/17/21 Rx calcitriol [Rocaltrol] 0.25 mcg PO MOWEFR 11/28/20 01/17/21 History citalopram 10 mg tablet 10 mg PO HS #30 tab 12/15/20 01/17/21 Rx clopidogrel 75 mg tablet 75 mg PO DAILY #30 tab 12/15/20 01/17/21 Rx famotidine 40 mg tablet 40 mg PO BID #180 tab 12/15/20 01/17/21 Rx levetiracetam 500 mg tablet 500 mg PO SUTUTHSA 30 Days #18 tab 12/19/20 01/17/21 Rx triamcinolone acetonide 1 applic TOPICAL BID PRN 12/26/20 01/17/21 History vancomycin 125 mg PO Q6H #57 cap 12/31/20 01/17/21 Rx collagenase clostridium histo. 250 1 applic TOPICAL DAILY 30 Days #90 01/06/21 01/17/21 Rx unit/gram topical ointment g atorvastatin [Lipitor] 80 mg PO QPM 01/17/21 01/17/21 History Patient History Medical History (Updated 01/17/21 @ 21:59 by Archana Melendrez DO) Acidosis, lactic Acute UTI (urinary tract infection) Benign prostatic hyperplasia CAD (coronary artery disease) s/p CABG 2007 Carotid artery stenosis s/p remote R & L endarterectomies with L re-occlusion sometime before 2010. Being monitored by [facility] neuro, on Plavix. Chronic kidney disease Dementia Depression Diabetes mellitus, type 2 A1C 5.4% 11/2019. Not on any medication. Diabetic peripheral neuropathy Esophageal reflux Flash pulmonary edema 11/2019 Hemodialysis patient MON/SAT/SATURDAY [facility] 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 (1 YEAR AFTER [place]) ?1990'S Hyperlipidemia Hypertension Memory problem PT REPORTS "DEMENTIA" "COMES AND GOES" Myocardial Infarction 1989? Pleural effusion Renal artery stenosis s/p left renal artery stenting; moderate right renal artery stenosis but no significant left renal artery stenosis on 11/2019 duplex Seizure disorder Stable on Keppra, no seizure for "a long time." Follows with [facility] neurology. Sepsis SNHL (sensorineural hearing loss) Surgical History History of aorto-femoral bypass History of bypass graft (non vein) Aortic-femoral or bifemoral History of carotid endarterectomy L 1998, R 2009 History of cataract surgery RT/LEFT History of colonoscopy History of esophagogastroduodenoscopy (EGD) History of tooth extraction History of vascular access device IJ FOR DIAYLSIS S/P CABG (coronary artery bypass graft) (2007) [facility] Family History Brother Hypertension Hypercholesteremia Sister Diabetes Unknown Hypertension Cardiac disorder Social History Smoking Status: Never smoker Tobacco Type: Cigarettes Cigarettes Per Day: 30; Second Hand Exposure: No; Hx Alcohol Use: No Hx Substance Use: No Preferred Language: Pashto Communication Ability: Impaired Visual Impairment: No Limitations Country Manager Required: No Beliefs That Will Affect Care: None marital status: Current Living Situation: Spouse Current Living Situation Comment: at [facility] current occupational status: 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" Feels Safe at Home: Yes caffeine: No Seatbelt Use: always Assistive Devices: None Review of Systems Review of Systems: Unobtainable due to cognitive status Physical Exam Constitutional: WD/WN, vitals as above no acute distress ENMT: Ears: no hearing impairment Neck: trachea midline Respiratory: normal respiratory effort, lungs clear to auscultation no cough Auscultation: no crackles, no rales and no wheezes Cardiovascular: RRR, no murmur, no edema Gastrointestinal (Abdomen): normal bowel sounds, soft, nontender, no hepatosplenomegaly Percussion/Palpation: abdomen nontender, no guarding and abdomen not rigid Musculoskeletal: Extremities: extremities normal to inspection Gait: normal gait Neurologic: awake mostly aphasic with occasional yes. Psychiatric: Orientation: alert Results & Data ([facility]) Vital Signs (Past 12 Hours) Vital Signs Temp Pulse Resp BP Pulse Ox 01/18/21 08:33 36.9 C 101 H 16 140/90 94 PG Care Time/CCT Total # of Minutes Spent Total Time Spent with Patient: Total time spent is greater than 50% in coordination of care (as documented) at patient's floor/unit and/or counseling patient: Coding Level of Care Code 59390 Initial Inpt Care Lvl 3 Diagnoses ESRD on dialysis N18.6; Z99.2 Acute hyperkalemia E87.5 Pressure injury of sacral region, stage 4 L89.154 Anemia D64.9 Aphasia R47.01 Dementia F03.90 Dementia type: vascular dementia (1) Dementia Dementia type: vascular dementia
[2021-01-18] MEDS ORDERED: EPOETIN ALFA 10,000 UNITS/ML VIAL IV ONE (12:00)
--- NOTE | 2021-01-18 16:47 | Medical Student Progress Note ---
Date of Service January 18, 2021 Assessment & Plan (1) Rigors: 1. Concern for Sepsis Miguel Mata is a 75-year-old male with a PMHx of chronic osteomyelitis of the sacrum, bacteremia, C. difficile colitis, seizure disorder, and ESRD on hemodialysis who was found to be tachycardic, tachypneic, and displaying rigors at wound clinic and instructed to present to [facility] emergency department on 01/17/21 for concern of sepsis. * Leukocytosis 12.09 on admission. Decreased to 10.44. Daily CBC checks * Started broad-spectrum antibiotic coverage with IV Vancomycin and Cefepime. Pharmacy consulted for renal dosing. Continue broad-spectrum coverage pending blood culture results * Blood culture pending. Gram stain shows gram positive cocci in clusters. * CXR: Congestive failure without pleural effusion or consolidation * Wound care for left lower extremity ulcer 2. Osteomyelitis of Sacrum * Continue wound care and collagenase * Wound culture: Pin-point growth. Reincubating. Gram stain shows rare gram negative rods 3. C. Difficile colitis * Patient being treated for C. difficile colitis prior to current admission. Continue PO Vancomycin daily until 01/23/21 and then transition to PO vancomycin every other day for two weeks 4. Seizure Disorder * Continue home dose of Keppra 5. ESRD Patient has ESRD on hemodialysis three days per week * Nephrology consult appreciated * Continue dialysis schedule (Saturday, Saturday, Saturday) * Monitor electrolytes with daily BMP * Continue Calcitriol 6. Coronary Artery Disease * History of chronically elevated troponin, which may be due to CKD. Troponin 0.025 on admission. * ECG on day of admission: 1st degree AV block and non-specific ST and T wave abnormalities. Findings consistent with previous ECG findings * Continue Atorvastatin * Continue Plavix Code Status: DNR/DNI FEN: Hemodialysis. Daily BMP. Aspiration precautions VTE PPx: SCDs Dispo: Medical floor Admission and Anticipated Discharge Date Admission Date: January 17, 2021 Supervising Attestation Medical Student Supervision Note: I was personally present during medical student patient encounter and independently interviewed and examined the patient and verified the grande history and physical, reviewed labs and image studies, discussed the case with Leno Samson and agree with the findings and care plan. Sent from wound clinic for concern of sepsis due to having tachycardia/tachypnea and having rigors - possibly from sacral ulcer with osteomyelitis as source but likely other cause. Pressure ulcers of sacral region, stage 3; left ankle, unstageable; right ankle stage 3 and right leg, stage 2. continue IV, await cultures. follow.. Subjective A subjective history was unable to be obtained due the patient's baseline level of aphasia and dementia Physical Exam Constitutional: + frail appearing; no acute distress Eyes: PERRL, conjunctivae normal, anicteric sclerae ENMT: external ear and nose normal, oropharynx normal Neck: normal visual inspection Respiratory: normal respiratory effort, lungs clear to auscultation Cardiovascular: RRR, no murmur, no edema Gastrointestinal (Abdomen): normal bowel sounds, soft, nontender, no hepatosplenomegaly Skin: + ulcer (right martin. sacrum.) and + excoriations (left martin) Neurologic: Speech / Cognition: + abnormal speech Results & Data ([facility]) Vital Signs (Past 12 Hours) Vital Signs Temp Pulse Resp BP Pulse Ox 01/18/21 16:23 36.9 C 97 H 18 97 01/18/21 08:33 36.9 C 101 H 16 140/90 94
[2021-01-18] MEDS ORDERED: VANCOMYCIN HCL 500 MG in 0.9 % SODIUM CHLORIDE 100 ML IV ONE (18:00)
[2021-01-18] MEDS ORDERED: CEFEPIME 500 MG in SYRINGE 0 ML IV SCH (18:00)
[2021-01-18] MEDS: CEFEPIME 1,000 MG in SYRINGE 0 ML IV SCH (20:42)
[2021-01-19 06:57] LABS: Basophils # (auto) 0.02 K/uL (0-0.2); Basophils % (auto) 0.2 %; Eosinophils # (auto) 0.15 K/uL (0-0.5); Eosinophils % (auto) 1.5 %; Hematocrit (blood only) 29.1 % (42-52); Immature Granulocytes # (auto) 0.05 K/uL (0.00-0.02); Immature Granulocytes % (auto) 0.5 %; Lymphocytes # (auto) 1.57 K/uL (1.2-3.4); Mean Corpuscular Hemoglobin 28.6 pg (25-34); Mean Corpuscular Hgb Conc 30.9 g/dL (32-36); Mean Corpuscular Volume 92.4 fL (80-100); Mean Platelet Volume 9.5 fL (7.4-10.4); Monocytes # (auto) 1.19 K/uL (0.11-0.59); Monocytes % (auto) 12.1 %; Neutrophils # (auto) 6.82 K/uL (1.4-6.5); Neutrophils % (auto) 69.7 %; Platelet Count 443 K/uL (130-400); RDW Coefficient of Variation 17.3 % (11.5-14.5); RDW Standard Deviation 58.3 fL (36.4-46.3); Red Blood Count 3.15 M/uL (4.7-6.1)
[2021-01-19 07:34] LABS: BUN Creatinine Ratio 16.7 (10-20); Calcium 8.1 mg/dl (8.5-10.1); Creatinine Clr Calc Pharmacy 18.1 ml/min; Est GFR (African American) 28.1; Est GFR (Non-African American) 24.2; Potassium 4.7 mmol/L (3.5-5.1)
--- NOTE | 2021-01-19 07:49 | Pharmacy Report ---
Pharmacy Abx Dose Short Note - Date of Service January 19, 2021 - Assessment & Plan Assessment * 75 year old M receiving VANCOMYCIN + CEFEPIME for treatment of sepsis associated w/ sacral wound, osteomyelitis pelvis * Patient follows w/ wound clinic * He is HD dependent, being dialyzed M--. Had 3 hour session yesterday followed by Vancomycin 500mg IV x1 at 2041 * Not producing urine * Mild leukocytosis has resolved * BLCX's ordered - 1/2 gram positive cocci clusters * Gram stain of cx taken from sacrum: rare gram negative rods Plan Vancomycin * Random level = 17.2mcg/mL this AM, therapeutic * No HD today and no UO, likely will not need to dose again until after HD Sat * Check random level tomorrow morning with AM labs to see how patient clears Vancomycin w/o HD * Plan to give 500mg IV x 1 s/p HD treatment Saturday * Goal trough level for osteo : 15 to 20 mcg/mL Cefepime * Cefepime 1000mg IV Q24H * Given septic picture, GNR in sacral gram stain, and bone involvement per December CT scan, continue max dose Cefepime, dosed after HD on days of dialysis Pharmacy will continue to follow and will adjust dose/frequency as necessary. Thank you.
[2021-01-19] MEDS: FAMOTIDINE 40 MG TABLET PO SCH ×2 (09:10→21:15)
[2021-01-19] MEDS: CLOPIDOGREL BISULFATE 75 MG TAB PO SCH (09:10)
[2021-01-19] MEDS: COLLAGENASE OINT 30 GM TUBE TOP SCH (09:11)
[2021-01-19] MEDS: RASPBERRY SYRUP 5 ML UDP PO SCH (09:11)
[2021-01-19] MEDS: levETIRAcetam 500 MG TAB PO SCH (09:11)
[2021-01-19] MEDS: NEPHROCAPS PO SCH (09:11)
[2021-01-19] MEDS: TRIAMCINOLONE ACET 0.1% CR 15 GM TUBE TOP PRN ×2 (09:12→22:15)
[2021-01-19] MEDS: VANCOMYCIN HCL 125 MG/2.5ML SOLN PO SCH (09:12)
--- NOTE | 2021-01-19 11:37 | Nephrology Progress Note ---
Date of Service January 19, 2021 Assessment & Plan (1) ESRD on dialysis: ESKD on HD MWF at [facility]. Admitted with sepsis from stage IV sacral decubital ulcer, currently on vancomycin and Cefepime empirically. Currently BP, volume status acceptable, potassium high. Had hemodialysis yesterday for 3.5 hours today with 2 K bath. Tolerated dialysis. Currently blood pressure, electrolyte volume status acceptable. Received JENSEN 93178 units IV during HD --overall doing poorly with sepsis from stage IV sacral decubital ulcer - continued Nephrocaps and renal diet --dose medications for GFR less than 10 --left arm nephrology precaution ( AVF) --palliative care helping with goals of care and possible hospice/comfort care in future. Will keep on schedule for dialysis tomorrow for now. Will follow (2) Acute hyperkalemia: (3) Pressure injury of sacral region, stage 4: (4) Anemia: (5) Aphasia: (6) Dementia: Admission and Anticipated Discharge Date Admission Date: January 17, 2021 Subjective Miguel has been much more lethargic this morning, occasionally open eyes but did not communicate. Blood pressure fair, volume status and electrolyte acceptable. Tolerated dialysis yesterday. Review of Systems Review of Systems: All systems reviewed & are unremarkable except as noted in Subjective Physical Exam Constitutional: + ill appearing and + lethargic; no acute distress Neck: normal visual inspection Respiratory: normal respiratory effort; no respiratory distress Auscultation: no crackles and no wheezes Cardiovascular: RRR, no murmur, no edema Skin: + ulcer (sacral decubitus ulcer) Neurologic: Awake, alert but aphasic Results & Data ([facility]) Vital Signs (Past 12 Hours) Vital Signs Temp Pulse Resp BP Pulse Ox 01/19/21 07:32 36.7 C 67 16 132/90 92 PG Care Time/CCT Total # of Minutes Spent Total Time Spent with Patient: Total time spent is greater than 50% in coordination of care (as documented) at patient's floor/unit and/or counseling patient: Coding Level of Care Code 80828 Subseq Hosp Care Lvl 3 Diagnoses ESRD on dialysis N18.6; Z99.2 Acute hyperkalemia E87.5 Pressure injury of sacral region, stage 4 L89.154 Anemia D64.9 Aphasia R47.01 Dementia F03.90 Dementia type: vascular dementia (1) Dementia Dementia type: vascular dementia
--- NOTE | 2021-01-19 14:01 | Palliative Care Consultation ---
Date of Consultation January 19, 2021 Assessment & Plan (1) Palliative care encounter: Mr. Miguel Mata is a 75 year old male who presented to the [facility] with increased sacral pressure ulcer and was seen in the wound care clinic and noted to be tachycardic, tachypnic, and hypoxic. Additional PMH includes: ESRD on HD, CAD, Dementia and prior CVA. He was found to be ultimately septic. The patient is minimally responsive, and intermittently can answer yes or no to some questions. Palliative Medicine was consulted to discuss goals of care. I met with Mr. Mata. He did open his eyes, but unfortunately, was unreliable with any additional interactions due to advanced dementia. FAST score: all of 6 and all of 7. I called his , Princess at and left a message. After discussion later in the afternoon with the resident team Dr. Valentine Carpenter, they were able to talk with Princess, his and his son, both independent of eachother. Princess, who is his decision maker, does apparently want to make a shift to a more comfort focused approach in Miguel's care; however, his son indicated that he would like to pursue a wound vac for the sacral wound. Unfortunately, due to this gentleman's poor nutritional status and overall advanced dementia and disease process, he is unlikely to make significant progress that would lead to more meaningful interactions. Apparently, the son did say that he would be of support of his mother's wishes. The son does work 2PM-10PM and does not have phone access otherwise. The patient would qualify for hospice services under a hospice diagnosis of ESRD or Senile Degeneration of the Brain. Should the patients wish to pursue hospice, she will need to have the understanding that hemodialysis would cease as well. He did look relatively comfortable at rest when I visited with him. Palliative Medicine to follow up tomorrow. (2) Osteomyelitis of sacrum: (3) Goals of care, counseling/discussion: (4) Stage III pressure ulcer of right heel: (5) Pulmonary edema: Chronicity: acute Qualified Code(s): J81.0 - Acute pulmonary edema (6) Pressure injury of sacral region, stage 4: History of Present Illness Reason for Consultation: Goals of care Requesting Physician: Costa Dickens Attending Physician: Rani Walter MD History of Present Illness Mr. Miguel Mata is a 75 year old male who presented to the [facility] with increased sacral pressure ulcer and was seen in the wound care clinic and noted to be tachycardic, tachypnic, and hypoxic. Additional PMH includes: ESRD on HD, CAD, Dementia and prior CVA. He was found to be ultimately septic. The patient is minimally responsive, and intermittently can answer yes or no to some questions. Palliative Medicine was consulted to discuss goals of care. Please se e A/P for further details. Thanks for involving palliative medicine with this individual. Allergies Allergy/AdvReac Type Severity Reaction Status Date / Time adhesive Allergy Unknown BLISTERING Verified 01/17/21 13:38 OF SKIN latex Allergy Unknown Rash Verified 01/17/21 13:38 Home Medications Medication Instructions Recorded Confirmed Type Renal Caps 1 cap PO QAM #30 cap 11/20/19 01/17/21 Rx calcitriol [Rocaltrol] 0.25 mcg PO MOWEFR 11/28/20 01/17/21 History citalopram 10 mg tablet 10 mg PO HS #30 tab 12/15/20 01/17/21 Rx clopidogrel 75 mg tablet 75 mg PO DAILY #30 tab 12/15/20 01/17/21 Rx famotidine 40 mg tablet 40 mg PO BID #180 tab 12/15/20 01/17/21 Rx levetiracetam 500 mg tablet 500 mg PO SUTUTHSA 30 Days #18 tab 12/19/20 01/17/21 Rx triamcinolone acetonide 1 applic TOPICAL BID PRN 12/26/20 01/17/21 History vancomycin 125 mg PO Q6H #57 cap 12/31/20 01/17/21 Rx collagenase clostridium histo. 250 1 applic TOPICAL DAILY 30 Days #90 01/06/21 01/17/21 Rx unit/gram topical ointment g atorvastatin [Lipitor] 80 mg PO QPM 01/17/21 01/17/21 History Patient History Medical History (Updated 01/19/21 @ 13:58 by LUCÍA Perez) Acidosis, lactic Acute UTI (urinary tract infection) Benign prostatic hyperplasia CAD (coronary artery disease) s/p CABG 2007 Carotid artery stenosis s/p remote R & L endarterectomies with L re-occlusion sometime before 2010. Being monitored by [facility] neuro, on Plavix. Chronic kidney disease Dementia Depression Diabetes mellitus, type 2 A1C 5.4% 11/2019. Not on any medication. Diabetic peripheral neuropathy Esophageal reflux Flash pulmonary edema 11/2019 Hemodialysis patient SAT/SAT/SATURDAY [facility] 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 (1 YEAR AFTER [place]) ? Hyperlipidemia Hypertension Memory problem PT REPORTS "DEMENTIA" "COMES AND GOES" Myocardial Infarction 1989? Palliative care encounter Pleural effusion Renal artery stenosis s/p left renal artery stenting; moderate right renal artery stenosis but no significant left renal artery stenosis on 11/2019 duplex Seizure disorder Stable on Keppra, no seizure for "a long time." Follows with [facility] neurology. Sepsis SNHL (sensorineural hearing loss) Surgical History History of aorto-femoral bypass History of bypass graft (non vein) Aortic-femoral or bifemoral History of carotid endarterectomy L 1998, R 2009 History of cataract surgery RT/LEFT History of colonoscopy History of esophagogastroduodenoscopy (EGD) History of tooth extraction History of vascular access device IJ FOR DIAYLSIS S/P CABG (coronary artery bypass graft) (2007) [facility] Family History Brother Hypertension Hypercholesteremia Sister Diabetes Unknown Hypertension Cardiac disorder Social History Smoking Status: Never smoker Tobacco Type: Cigarettes Cigarettes Per Day: 30; Second Hand Exposure: No; Hx Alcohol Use: No Hx Substance Use: No Preferred Language: Singaporean Communication Ability: Impaired Visual Impairment: No Limitations Temperer Required: No Beliefs That Will Affect Care: None marital status: Current Living Situation: Spouse Current Living Situation Comment: at 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" Feels Safe at Home: Yes caffeine: No Seatbelt Use: always Assistive Devices: None Review of Systems Review of Systems: Unobtainable due to cognitive status Physical Exam Constitutional: + ill appearing and + disheveled ENMT: Nose: + dry nasal mucous membranes Respiratory: Auscultation: + diminished lung sounds Cardiovascular: Rate/Rhythm: regular rate and regular rhythm Heart Sounds: normal S1 and normal S2 Extremities: normal capillary refill Gastrointestinal (Abdomen): normal bowel sounds, soft, nontender, no hepatosplenomegaly Skin: + wound, + crusts and + erythema Psychiatric: Orientation: alert; + not oriented to person and + uncooperative Apperance: + disheveled Results & Data ([facility]) Vital Signs (Past 12 Hours) Vital Signs Temp Pulse Resp BP Pulse Ox 01/19/21 07:32 36.7 C 67 16 132/90 92 PG Care Time/CCT Total # of Minutes Spent Total Time Spent with Patient: Total time spent is greater than 50% in coordination of care (as documented) at patient's floor/unit and/or counseling patient: 70 minutes with > 50% of that time spent assessing the patient, discussing goals of care with the patients , and collaborating with IDT Coding Level of Care Code 98463 Inpt Consult Level 3 Diagnoses Palliative care encounter Z51.5 Osteomyelitis of sacrum M46.28 Goals of care, counseling/discussion Z71.89 Stage III pressure ulcer of right heel L89.613 Pulmonary edema J81.0 Chronicity: acute Pressure injury of sacral region, stage 4 L89.154 Time Spent (min) 70
--- NOTE | 2021-01-19 15:57 | Medical Student Progress Note ---
Date of Service January 19, 2021 Assessment & Plan (1) Rigors: 1. Sepsis Miguel Mata is a 75-year-old male with a PMHx of chronic osteomyelitis of the sacrum, bacteremia, C. difficile colitis, seizure disorder, and ESRD on hemodialysis who was found to be tachycardic, tachypneic, and displaying rigors at wound clinic and instructed to present to [facility] emergency department on 01/17/21 for concern of sepsis. * Leukocytosis 12.09 on admission. Decreased to 10.44. Daily CBC checks * Started broad-spectrum antibiotic coverage with IV Vancomycin and Cefepime. Pharmacy consulted for renal dosing. Discontinued Vancomycin on 01/18/21 due to low concern for MRSA based on blood culture. Continue Cefepime for adequate gram positive and gram negative coverage including pseudomonas. * 1/2 blood cultures positive for growth of coagulase negative staphylococcus, not lugdunensis. Anaerobic culture grew gram positive cocci. * CXR: Congestive failure without pleural effusion or consolidation 2. Osteomyelitis of Sacrum * Continue wound care and collagenase for sacral decubitus ulcer * Surface wound culture grows gram negative bacilli 3. C. Difficile colitis * Patient being treated for C. difficile colitis prior to current admission. Continue PO Vancomycin daily until 01/23/21 and then transition to PO vancomycin every other day for two weeks 4. Seizure Disorder * Continue home dose of Keppra 5. ESRD Patient has ESRD on hemodialysis three days per week * Nephrology consult appreciated * Continue dialysis schedule (Saturday, Saturday, Saturday) * Monitor electrolytes with daily BMP * Continue Calcitriol 6. Coronary Artery Disease * History of chronically elevated troponin, which may be due to CKD. Troponin 0.025 on admission. * ECG on day of admission: 1st degree AV block and non-specific ST and T wave abnormalities. Findings consistent with previous ECG findings * Continue Atorvastatin * Continue Plavix 7. Palliative Care Encounter Due to the patient's severe dementia and recurrent hospitalizations, a palliative care discussion will help determine the goals of Mr. Mata and his family members moving forward. * Palliative care consult appreciated. Contacted patient's daughter to discuss next steps in care * Case management consult appreciated. Placed referral for [facility] and possible transition to intermediate designer care Code Status: DNR/DNI FEN: Hemodialysis as scheduled. Daily BMP. Aspiration precautions VTE PPx: SCDs Dispo: Medical floor Admission and Anticipated Discharge Date Admission Date: January 17, 2021 Supervising Attestation Medical Student Supervision Note: I was personally present during medical student patient encounter and independently interviewed and examined the patient and verified the grande history and physical, reviewed labs and image studies, discussed the case with Leno Samson and agree with the findings and care plan. Continue IV abx - cefepime for sacral ulcer and osteomyelitis. continue overall poor quality of life and comorbidities - palliative care consult to review goals of care. Subjective Subjective information was unable to be obtained due to the patient's baseline level of severe dementia and aphasia. Physical Exam Constitutional: + language barrier (significant conductive aphasia ) and + frail appearing; no acute distress Eyes: PERRL, conjunctivae normal, anicteric sclerae ENMT: external ear and nose normal, oropharynx normal Neck: normal visual inspection Respiratory: normal respiratory effort, lungs clear to auscultation Cardiovascular: RRR, no murmur, no edema Gastrointestinal (Abdomen): normal bowel sounds, soft, nontender, no hepatosplenomegaly Skin: no rashes, warm and dry + ulcer (right lower extremity and sacral decubitus ulcers covered.) Results & Data ([facility]) Vital Signs (Past 12 Hours) Vital Signs Temp Pulse Resp BP Pulse Ox 01/19/21 07:32 36.7 C 67 16 132/90 92
[2021-01-19] MEDS: CEFEPIME 1,000 MG in SYRINGE 0 ML IV SCH (18:47)
[2021-01-19] MEDS: CITALOPRAM 20 MG TAB PO SCH (21:15)
[2021-01-19] MEDS: ATORVASTATIN 40 MG TAB PO SCH (21:15)
[2021-01-20] MEDS ORDERED: MEROPENEM CONSULT ACITVE PRN (07:28)
[2021-01-20] MEDS ORDERED: MEROPENEM 500 MG in SYRINGE 0 ML IV SCH (08:00)
[2021-01-20 10:49] LABS: Basophils # (auto) 0.01 K/uL (0-0.2); Basophils % (auto) 0.1 %; Eosinophils # (auto) 0.15 K/uL (0-0.5); Eosinophils % (auto) 1.4 %; Hemoglobin 8.6 g/dL (14.0-18.0); Immature Granulocytes # (auto) 0.05 K/uL (0.00-0.02); Immature Granulocytes % (auto) 0.5 %; Lymphocytes # (auto) 1.33 K/uL (1.2-3.4); Lymphocytes % (auto) 12.3 %; Mean Corpuscular Hemoglobin 28.6 pg (25-34); Mean Corpuscular Hgb Conc 30.7 g/dL (32-36); Mean Platelet Volume 9.7 fL (7.4-10.4); Monocytes # (auto) 1.45 K/uL (0.11-0.59); Monocytes % (auto) 13.4 %; Neutrophils # (auto) 7.81 K/uL (1.4-6.5); Neutrophils % (auto) 72.3 %; Platelet Count 470 K/uL (130-400); RDW Coefficient of Variation 17.5 % (11.5-14.5); RDW Standard Deviation 58.9 fL (36.4-46.3); Red Blood Count 3.01 M/uL (4.7-6.1)
[2021-01-20 10:54] LABS: BUN Creatinine Ratio 18.2 (10-20); Calcium 8.6 mg/dl (8.5-10.1); Est GFR (African American) 20.7; Est GFR (Non-African American) 17.8; Potassium 5.3 mmol/L (3.5-5.1)
--- NOTE | 2021-01-20 11:00 | Nephrology Progress Note ---
Date of Service January 20, 2021 Assessment & Plan (1) ESRD on dialysis: ESKD on HD MWF at [facility]. Admitted with sepsis from stage IV sacral decubital ulcer, currently on vancomycin and Cefepime empirically. Currently BP, volume status acceptable, tolerating HD. Received JENSEN 81740 units IV during HD on 01/18/21 --overall doing poorly with sepsis from stage IV sacral decubital ulcer, palliative care helping with goals of care and possible hospice/comfort care in future - continued Nephrocaps and renal diet --dose medications for GFR less than 10 Will follow (2) Acute hyperkalemia: (3) Pressure injury of sacral region, stage 4: (4) Anemia: (5) Aphasia: (6) Dementia: Admission and Anticipated Discharge Date Admission Date: January 17, 2021 Subjective Miguel was seen during HD this morning, more awake and alert today, close to b/l. No F/C. Blood pressure fair, volume status and electrolyte acceptable. Review of Systems Review of Systems: Unobtainable due to cognitive status Physical Exam Constitutional: WD/WN, vitals as above + ill appearing and + lethargic; no acute distress Respiratory: normal respiratory effort; no respiratory distress and no cough Auscultation: no crackles, no rales and no wheezes Cardiovascular: RRR, no murmur, no edema Skin: no rashes, warm and dry + ulcer (sacral decubitus ulcer) Neurologic: awake Results & Data ([facility]) Vital Signs (Past 12 Hours) Vital Signs Temp Pulse Pulse Pulse Resp BP BP 01/20/21 09:40 95 H 115/60 01/20/21 09:20 84 108/66 01/20/21 09:00 90 129/77 01/20/21 08:48 63 121/70 01/20/21 08:40 36.8 C 63 01/20/21 07:47 36.8 C 98 H 18 160/99 H Pulse Ox 01/20/21 09:40 01/20/21 09:20 01/20/21 09:00 01/20/21 08:48 01/20/21 08:40 01/20/21 07:47 97 PG Care Time/CCT Total # of Minutes Spent Total Time Spent with Patient: Total time spent is greater than 50% in coordination of care (as documented) at patient's floor/unit and/or counseling patient: Coding Level of Care Code 27136 Subseq Hosp Care Lvl 3 Diagnoses ESRD on dialysis N18.6; Z99.2 Acute hyperkalemia E87.5 Pressure injury of sacral region, stage 4 L89.154 Anemia D64.9 Aphasia R47.01 Dementia F03.90 Dementia type: vascular dementia (1) Dementia Dementia type: vascular dementia
--- NOTE | 2021-01-20 12:59 | Communication Note ---
Date of Service: January 20, 2021 Spoke with Princess and son separately over the phone and Princess who is the decision maker has decided that Mr. Mata has been through enough. She tells me he never wanted to do dialysis to begin with and that the hell he's been through has been enough. Her goal is for her to come home with hospice care stopping antibiotics and stopping dialysis to be around family and be kept comfortable with the time that he has left. Son is in solidarity with his step mom's wishes. Answered all questions to the best of my ability and informed case management so she could begin working on hospice arrangements.
[2021-01-20] MEDS: FAMOTIDINE 40 MG TABLET PO SCH ×2 (13:32→21:29)
[2021-01-20] MEDS: NEPHROCAPS PO SCH (13:33)
[2021-01-20] MEDS: CLOPIDOGREL BISULFATE 75 MG TAB PO SCH (13:33)
[2021-01-20] MEDS: CALCITRIOL 0.25 MCG CAPSULE PO SCH (13:33)
[2021-01-20] MEDS: RASPBERRY SYRUP 5 ML UDP PO SCH (13:34)
[2021-01-20] MEDS: TRIAMCINOLONE ACET 0.1% CR 15 GM TUBE TOP PRN (13:38)
[2021-01-20] MEDS: COLLAGENASE OINT 30 GM TUBE TOP SCH (13:38)
--- NOTE | 2021-01-20 13:38 | Medical Student Progress Note ---
Date of Service January 20, 2021 Assessment & Plan (1) Rigors: 1. Sepsis Miguel Mata is a 75-year-old male with a PMHx of chronic osteomyelitis of the sacrum, bacteremia, C. difficile colitis, seizure disorder, and ESRD on hemodialysis who was found to be tachycardic, tachypneic, and displaying rigors at wound clinic and instructed to present to [facility] emergency department on 01/17/21 for sepsis. * Sacral decubitus ulcer stage 3, Left ankle ulcer unstageable, right ankle ulcer stage 2, right leg ulcer stage 2. Continue wound care. * Leukocytosis 12.09 on admission. Decreased to 10.44. * Started broad-spectrum antibiotic coverage with IV Vancomycin and Cefepime. Pharmacy consulted for renal dosing. Discontinued Vancomycin on 01/18/21 due to low concern for MRSA based on blood culture. Discontinued Cefepime on 01/20/21 based on sacral decubitus ulcer sensitivities. Started Meropenem 01/20/21. * Surface wound culture positive for Pseudomonas. Sensitive to Meropenem and Tobramycin. * 1/2 blood cultures positive for growth of coagulase negative staphylococcus, not lugdunensis. Anaerobic culture grew gram positive cocci. 2. Osteomyelitis of Sacrum * Continue wound care and collagenase for sacral decubitus ulcer stage 3. * Surface wound culture grows Pseudomonas. 3. C. Difficile colitis * Patient being treated for C. difficile colitis prior to current admission. Continue PO Vancomycin daily until 01/23/21 and then transition to PO vancomycin every other day for two weeks 4. Seizure Disorder * Continue home dose of Keppra 5. ESRD Patient has ESRD on hemodialysis three days per week * Nephrology consult appreciated * Continue dialysis schedule (Saturday, Saturday, Saturday) * Continue Calcitriol 6. Coronary Artery Disease * History of chronically elevated troponin, which may be due to CKD. Troponin 0.025 on admission. * ECG on day of admission: 1st degree AV block and non-specific ST and T wave abnormalities. Findings consistent with previous ECG findings * Continue Atorvastatin * Continue Plavix 7. Palliative Care Encounter Due to the patient's severe dementia and recurrent hospitalizations, a palliative care discussion will help determine the goals of Mr. Mata and his family members moving forward. * Palliative care consult appreciated. Contacted patient's and medical decision maker. She is in favor of initiating home Hospice care at this time * Plan to discontinue antibiotics and dialysis once home Hospice care is initiated Code Status: DNR/DNI FEN: Hemodialysis as scheduled. Aspiration precautions VTE PPx: SCDs Dispo: Medical floor Admission and Anticipated Discharge Date Admission Date: January 17, 2021 Supervising Attestation Medical Student Supervision Note: I was personally present during medical student patient encounter and independently interviewed and examined the patient and verified the grande history and physical, reviewed labs and image studies, discussed the case with Leno Samson and agree with the findings and care plan. continue IV abx. will be going home on hospice in am. will need to remove dialysis catheter on discharge. Subjective Unable to obtain a subjective history this morning due to the patient's baseline severe dementia and aphasia. Physical Exam Constitutional: + physical limitations (unable to communicate verbally or withe body language) and + frail appearing; no acute distress Eyes: PERRL, conjunctivae normal, anicteric sclerae ENMT: external ear and nose normal, oropharynx normal Neck: normal visual inspection Respiratory: normal respiratory effort, lungs clear to auscultation Cardiovascular: RRR, no murmur, no edema Gastrointestinal (Abdomen): normal bowel sounds, soft, nontender, no hepatosplenomegaly Skin: no rashes, warm and dry Results & Data ([facility]) Vital Signs (Past 12 Hours) Vital Signs Temp Pulse Pulse Pulse Resp BP BP 01/20/21 12:31 36.8 C 62 142/85 H 01/20/21 12:20 99 H 115/76 01/20/21 12:00 99 H 115/76 01/20/21 11:40 61 119/67 01/20/21 11:20 93 H 129/74 01/20/21 11:00 93 H 127/72 01/20/21 10:40 92 H 121/74 01/20/21 10:20 94 H 124/71 01/20/21 10:00 83 121/53 L 01/20/21 09:40 95 H 115/60 01/20/21 09:20 84 108/66 01/20/21 09:00 90 129/77 01/20/21 08:48 63 121/70 01/20/21 08:40 36.8 C 63 01/20/21 07:47 36.8 C 98 H 18 160/99 H Pulse Ox 01/20/21 12:31 01/20/21 12:20 01/20/21 12:00 01/20/21 11:40 01/20/21 11:20 01/20/21 11:00 01/20/21 10:40 01/20/21 10:20 01/20/21 10:00 01/20/21 09:40 01/20/21 09:20 01/20/21 09:00 01/20/21 08:48 01/20/21 08:40 01/20/21 07:47 97
--- NOTE | 2021-01-20 14:32 | Hospitalist Progress Note ---
Date of Service January 20, 2021 Assessment & Plan Admission and Anticipated Discharge Date Admission Date: January 17, 2021 Results & Data Results & Data ([facility]) Vital Signs (Past 12 Hours) Vital Signs Temp Pulse Pulse Pulse Resp BP BP 01/20/21 12:31 36.8 C 62 142/85 H 01/20/21 12:20 99 H 115/76 01/20/21 12:00 99 H 115/76 01/20/21 11:40 61 119/67 01/20/21 11:20 93 H 129/74 01/20/21 11:00 93 H 127/72 01/20/21 10:40 92 H 121/74 01/20/21 10:20 94 H 124/71 01/20/21 10:00 83 121/53 L 01/20/21 09:40 95 H 115/60 01/20/21 09:20 84 108/66 01/20/21 09:00 90 129/77 01/20/21 08:48 63 121/70 01/20/21 08:40 36.8 C 63 01/20/21 07:47 36.8 C 98 H 18 160/99 H Pulse Ox 01/20/21 12:31 01/20/21 12:20 01/20/21 12:00 01/20/21 11:40 01/20/21 11:20 01/20/21 11:00 01/20/21 10:40 01/20/21 10:20 01/20/21 10:00 01/20/21 09:40 01/20/21 09:20 01/20/21 09:00 01/20/21 08:48 01/20/21 08:40 01/20/21 07:47 97
--- NOTE | 2021-01-20 16:00 | Palliative Care Progress Note ---
Date of Service January 20, 2021 Assessment & Plan (1) Palliative care encounter: I called Princess to touch base but there was no answer. I have met with them multiple times in the past to discuss goals of care. Most recently, Miguel was cogent enough to indicate that he would not want artificial feeding and that he would want to be at home for his dying time. They have consistently indicated that they are comfortable with repeat hospitalizations and want to continue his dialysis treatment. Yet, when asked, Princess says that she thinks he would want a more comfort directed approach. Palliative care will follow. Admission and Anticipated Discharge Date Admission Date: January 17, 2021 Subjective Seen in dialysis. Somnolent but arousable. Nods when asked pretty much any question. He did say "Hi" when I told him I'd tell his that he said hi. Appears comfortable. Review of Systems Review of Systems: Unobtainable due to cognitive status Physical Exam Constitutional: + ill appearing and + thin Respiratory: + uses accessory muscles Cardiovascular: Extremities: no edema Musculoskeletal: Extremities: + muscle atrophy Neurologic: + confused Speech / Cognition: + abnormal cognition Results & Data ([facility]) Vital Signs (Past 12 Hours) Vital Signs Temp Pulse Pulse Pulse Resp BP BP 01/20/21 15:26 98.2 F 75 16 151/71 H 01/20/21 12:31 98.2 F 62 142/85 H 01/20/21 12:20 99 H 115/76 01/20/21 12:00 99 H 115/76 01/20/21 11:40 61 119/67 01/20/21 11:20 93 H 129/74 01/20/21 11:00 93 H 127/72 01/20/21 10:40 92 H 121/74 01/20/21 10:20 94 H 124/71 01/20/21 10:00 83 121/53 L 01/20/21 09:40 95 H 115/60 01/20/21 09:20 84 108/66 01/20/21 09:00 90 129/77 01/20/21 08:48 63 121/70 01/20/21 08:40 98.2 F 63 01/20/21 07:47 98.2 F 98 H 18 160/99 H Pulse Ox 01/20/21 15:26 96 01/20/21 12:31 01/20/21 12:20 01/20/21 12:00 01/20/21 11:40 01/20/21 11:20 01/20/21 11:00 01/20/21 10:40 01/20/21 10:20 01/20/21 10:00 01/20/21 09:40 01/20/21 09:20 01/20/21 09:00 01/20/21 08:48 01/20/21 08:40 01/20/21 07:47 97 PG Care Time/CCT Total # of Minutes Spent Total Time Spent with Patient: Total time spent is greater than 50% in coordination of care (as documented) at patient's floor/unit and/or counseling patient: Coding Level of Care Code 36888 Subseq Hosp Care Lvl 2 Diagnoses Palliative care encounter Z51.5
[2021-01-20] MEDS: VANCOMYCIN HCL 125 MG/2.5ML SOLN PO SCH (16:29)
[2021-01-20] MEDS ORDERED: MEROPENEM 250 MG in SYRINGE 0 ML IV SCH (18:00)
[2021-01-20] MEDS: CITALOPRAM 20 MG TAB PO SCH (21:29)
[2021-01-20] MEDS: ATORVASTATIN 40 MG TAB PO SCH (21:29)
[2021-01-21 07:31] LABS: Hematocrit (blood only) 30.3 % (42-52); Hemoglobin 9.1 g/dL (14.0-18.0); Mean Corpuscular Hemoglobin 28.3 pg (25-34); Mean Corpuscular Volume 94.1 fL (80-100); Mean Platelet Volume 9.2 fL (7.4-10.4); Platelet Count 449 K/uL (130-400); RDW Coefficient of Variation 17.5 % (11.5-14.5); RDW Standard Deviation 59.9 fL (36.4-46.3); Red Blood Count 3.22 M/uL (4.7-6.1); White Blood Count 9.78 K/uL (4.8-10.8)
--- NOTE | 2021-01-21 07:31 | Discharge Summary ---
Date of Service January 21, 2021 Admission HPI Per Admitting Provider Miguel Mata is a 75yo C male with multiple medical problems, most notably ESRD on HD, CAD, Dementia and prior CVA. Patient is unable to effectively communicate due to prior CVA's as well as underlying dementia - he answers "Yes" to all questions asked. History obtained through chart review and discussion with ER attending. Mr. Mata has multiple pressure ulcers including a pressure ulcer of the sacral region. He follows with Wound Care and was seen int he clinic today. Patient was found to have rigors, tachycardia with HR of 123, tachypnea with RR of 26, possibly hypoxic. He was transferred to [facility] due to concerns for sepsis from sacral wound. Upon arrival to the ER patient mildly hyperthermic with temperature of 37.7, tachycardic at 118, adequate oxygenation on room air. Patient unable to voice complaints. ER Course: Vancomycin 750mg, Cefepime x 2 gm Admission Exam Per Admitting Provider General: patient chronically ill in appearance, NAD, answers "yes" to all questions asked Skin: sacral wound not visualized HEENT: NC/AT, EOMI, anicteric sclera, conjunctiva without injection, external ear normal to inspection and nontender, nares patent, moist mucus membranes, dentition intact, no oropharyngeal lesions, neck supple, trachea midline, no LAD, no thyromegaly, no JVD Heart: +S1/S2, regular, tachycardic, no m/r/g, right chest perm cath Lungs: equal air entry bilaterally, no rales/rhonchi/wheezes Abd: +BS, soft, NT/ND, no masses/organomegaly/ascites Ext: warm, 2+ pulses in UE/LE bilaterally, no clubbing/cyanosis or edema Principal Diagnosis Sepsis from sacral wound. Discharge Exam Constitutional + ill appearing, cooperative and comfortable; no acute distress non verbal, pleasant Eyes + anicteric sclerae; no eyelid abnormality Neck normal visual inspection and trachea midline Respiratory no respiratory distress and does not use accessory muscles Cardiovascular Rate/Rhythm: regular rate and regular rhythm Musculoskeletal Head/Neck/Chest: normocephalic and head atraumatic Skin several ecchymosis in various stages of healing to bilateral forearms Discharge Data Allergies Allergy/AdvReac Type Severity Reaction Status Date / Time adhesive Allergy Unknown BLISTERING Verified 01/17/21 13:38 OF SKIN latex Allergy Unknown Rash Verified 01/17/21 13:38 Consultations 01/17/21 18:36 ED Decision to Admit Stat 01/17/21 22:38 Consult Nephrology Routine 01/18/21 12:02 Consult Palliative Care Routine Hospital Course (1) Rigors: Summary: Miguel Mata is a 75-year-old male with a PMHx of chronic osteomyelitis of the sacrum, bacteremia, C. difficile colitis, seizure disorder, and ESRD on hemodialysis who was found to be tachycardic, tachypneic, and displaying rigors at wound clinic and instructed to present to [facility] emergency department on 01/17/21 for sepsis most likely from sacral wound. Was started on IV antibiotics and wound care nurse was consulted. He also is end stage renal diz requiring dialysis. Considering his chronic prolonged illness and worsening cognitive function with poor quality of life, decision was made with family in conjunction with palliative care team to move to hospice care. He will be sent home on home hospice without need for abx or further dialysis. Total Time Total Time Spent Total Time Spent (In Minutes): 35 Discharge Plan Discharge Items Patient Disposition: Hospice - Home Reason For Visit: TACHYCARDIA, TACHYPNEA, RIGORS Discharge Diagnosis: End stage renal disease; end of life care on hospice; cdiff Activity: Resume your previous activity Non-emergency contact: Primary Care Provider Call non-emergency contact if: you have any medication questions Follow-up/Referrals: Erick Zapata III, MD [Primary Care Provider] - Diet: Regular Addtl Attending Provider Instructions: Mr. Mata, you are are being discharge home on hospice care. We wish you the best and thank you for allowing us to care for you. You can stop all antibiotics. We have stopped your Vancomycin as well. A prescription was sent to your pharmacy in error, please disregard needing this medication. Pending Studies at Discharge: No Stand-Alone Forms: My [employer]!, Smoking Cessation Medications and DC Order Prescriptions: Continued Santyl 250 unit/gram ointment 1 applic topical DAILY 30 Days Qty: 90 RF: 2 citalopram 10 mg tablet 10 mg PO HS Qty: 30 RF: 5 clopidogrel [Plavix] 75 mg tablet 75 mg PO DAILY Qty: 30 RF: 5 famotidine 40 mg tablet 40 mg PO BID Qty: 180 RF: 3 levetiracetam [Keppra] 500 mg tablet 500 mg PO SUTUTHSA 30 Days Qty: 18 RF: 0 Renal Caps 1 mg Capsule 1 cap PO QAM Qty: 30 RF: 0 triamcinolone acetonide 0.1 % cream 1 applic topical BID PRN (Reason: Skin Irritation) RF: 0 atorvastatin [Lipitor] 80 mg tablet 80 mg PO QPM RF: 0 calcitriol [Rocaltrol] 0.25 mcg capsule 0.25 mcg PO MOWEFR RF: 0 Discontinued vancomycin 125 mg capsule 125 mg PO Q6H Qty: 57 RF: 0 Discharge Orders: Discharge Order (Routine); Ordered 01/21/21 Ordered By: Brandt Bravo Admission Data Admit Date/Time: 01/17/21 19:42 Attending Provider: Rani Walter Admit Provider: Archana Melendrez Primary Care Provider: Erick Zapata III Other Providers: Deedee Lugo ; Joss Maxwell ; Archana Melendrez ; Deborah Duran ; [place],[facility], [place] ; [facility] Other Interventions: Discharge Summary Assessment (RN) Last Done: 01/21/21 09:46 Supervising Physician Co-Signing Physician Notes Resident Physician Supervision Note: I independently interviewed and examined the patient and verified the grande history and physical, reviewed labs and image studies and agree with resident Dr. Bravo findings and care plan. Resident Activity Tracking Resident Involvement: Resident Care Provided Care Provided: Adult Hospital Medicine
[2021-01-21 08:20] LABS: BUN Creatinine Ratio 18.2 (10-20); Calcium 8.8 mg/dl (8.5-10.1); Creatinine Clr Calc Pharmacy 22.1 ml/min; Est GFR (African American) 37.7; Est GFR (Non-African American) 32.5; Potassium 3.9 mmol/L (3.5-5.1)
[2021-01-21] MEDS: levETIRAcetam 500 MG TAB PO SCH (09:22)
[2021-01-21] MEDS: NEPHROCAPS PO SCH (09:23)
[2021-01-21] MEDS: CLOPIDOGREL BISULFATE 75 MG TAB PO SCH (09:23)
[2021-01-21] MEDS: FAMOTIDINE 40 MG TABLET PO SCH (09:23)
[2021-01-21] MEDS: VANCOMYCIN HCL 125 MG/2.5ML SOLN PO SCH (09:40)
[2021-01-21] MEDS: RASPBERRY SYRUP 5 ML UDP PO SCH (09:40)
[2021-01-21] MEDS: COLLAGENASE OINT 30 GM TUBE TOP SCH (11:25)
[2021-01-21] MEDS ORDERED: MEROPENEM 500 MG in SYRINGE 0 ML IV SCH (18:00)
[2021-01-24] MEDS ORDERED: VANCOMYCIN HCL 125 MG/2.5ML SOLN PO SCH (09:00)
[2021-01-24] MEDS ORDERED: RASPBERRY SYRUP 5 ML UDP PO SCH (09:00)
== END 2021-01-21 12:36 | disposition hospice, home (50) | DRG 871 ==
LOC: ED 14:50 → 3N 19:42 → SUATTDRO 19:42 → 3N 22:20